=== PATIENT | male | born 1970 | race Caucasian/White ===

== ENCOUNTER 2017-03-06 09:13 | Emergency (ER) | payer OTHER ==
[2017-03-06 09:19] VITALS: BP 140/81; PULSE 84; TEMP 98; BMI 33.0
--- NOTE | 2017-03-06 10:56 | PDOC ---
History of Present Illness - General Chief Complaint: Laceration Stated Complaint: LACERATED LIP Time Seen by Provider: 03/06/17 09:53 History Source: Patient Exam Limitations: No Limitations - History of Present Illness Initial Comments: 03/06/17 11:28 My Chief Complaint: laceration above lip right sided History of Present Illness: Pt.is 46-year-old male with a history of cirrhosis , htn, borderline Diabetes, depression/anxiety and alcohol dependency here today due to cutting his face above his right side of his lip. Patient reports that he is up-to-date with immunizations. Including tetanus patient reports that he had a scar in this area and he believes that he cut this area where he had a previous scar. Pt. has had difficulty getting the area to stop bleeding. He currently attends to [employer] program. 03/06/17 11:31 Timing/Duration: 1-3 hours Severity: mild Associated Symptoms: reports: other (laceration above rt. side of lip during shaving ) Past History - Past Medical History Allergies/Adverse Reactions: Allergies Allergy/AdvReac Type Severity Reaction Status Date / Time shellfish derived Allergy Severe Swelling Verified 03/06/17 09:15 No Known Drug Allergies Allergy Verified 03/06/17 09:15 NKDA Allergy Uncoded 03/06/17 09:15 Anemia: No Asthma: No Cancer: No Cardiac Disorders: No CVA: No COPD: No CHF: No Dementia: No Diabetes: Yes (BORDER LINE, NO MEDS) GI Disorders: No Disorders: No HTN: Yes Hypercholesterolemia: No Kidney Stones: No Liver Disease: Yes (CIRRHOSIS OF LIVER) Psychiatric Problems: Yes (DEPRESSION, ANXEITY) Suicide Attempt (Hx): No Seizures: No Thyroid Disease: No - Surgical History Abdominal Surgery: No Appendectomy: No Cardiac Surgery: No Cholecystectomy: No Lung Surgery: No Neurologic Surgery: No Orthopedic Surgery: Yes (right shoulder due to dislocation 6 years ago) - Family Disease History Family Disease History: Heart Disease: Mother - Reproductive History Testicular Surgery: No - Immunization History Immunization Up to Date: Yes - Psycho/Social/Smoking Cessation Hx Anxiety: No Suicidal Ideation: No Smoking Status: No Smoking History: Current some day smoker Have you smoked in the past 12 months: Yes Number of Cigarettes Smoked Daily: 2 If you are a former smoker, when did you quit?: 2010 Cigars Per Day: 0 Information on smoking cessation initiated: Yes 'Breaking Loose' booklet given: 03/06/17 Hx Alcohol Use: No Drug/Substance Use Hx: No Substance Use Type: Alcohol, Tranquilizers Hx Substance Use Treatment: Yes Review of Systems - Review of Systems Able to Perform ROS?: Yes Constitutional: No: Symptoms Reported HEENTM: No: Symptoms Reported Respiratory: No: Symptoms reported Cardiac (ROS): No: Symptoms Reported Musculoskeletal: No: Symptoms Reported Integumentary: Yes: Other (tiny laceration above rt. side of lip ) Neurological: No: Symptoms reported *Physical Exam - Vital Signs Last Vital Signs Temp Pulse Resp BP Pulse Ox 98.0 F 84 18 140/81 100 03/06/17 09:16 03/06/17 09:16 03/06/17 09:16 03/06/17 09:16 03/06/17 09:16 - Physical Exam General Appearance: Yes: Appropriately Dressed Integumentary: positive: Other (laceration above rt. side of upper lip 0.25 cm x 0.25 cm linear) Neurologic: positive: Alert, Normal Response, Respond to painful stimul (above right side of lip ), Responsive Procedures - Consent Consent obtained: From Patient - Laceration/Wound Repair Right Face Wound Length: to 2.5 cm Wound Explored: clean Wound's Depth, Shape: superficial, linear Irrigated w/ Saline: Yes Betadine Prep: Yes Anesthesia: 1% Lidocaine Amount of Anesthetic (ccs): 2 Wound Repaired With: Sutures Suture Size/Type: 5:0 Number of Sutures: 4 (wound bleed a lot ) Sterile Dressing Applied: No Medical Decision Making - Medical Decision Making 03/06/17 11:25 03/06/17 11:31 Pt.is 46-year-old male with a history of cirrhosis and alcohol dependency here today due to cutting his face above his right side of his lip. Patient reports that he is up-to-date with immunizations. Including tetanus patient reports that he had a scar in this area and he believes that he cut this area where he had a previous scar. Pt. has had difficulty getting the area to stop bleeding. He [facility] to [facility]. laceration above rt. upper lip with excessive bleeding PLAN: 4 interrupted sutures applied to laceration above rt. lip pt. instructed to use an electric razor return in 6- 7 days Patient that if he continues to drink bleeding disorder due to low platelets will get worse 03/06/17 11:32 03/06/17 11:34 03/06/17 11:34 03/07/17 08:01 *DC/Admit/Observation/Transfer Diagnosis at time of Disposition: Laceration of face Qualifiers: Encounter type: initial encounter Qualified Code(s): S01.81XA - Laceration without foreign body of other part of head, initial encounter - Discharge Dispostion Disposition: HOME Condition at time of disposition: Stable - Referrals Referrals: Rene Ward MD [Primary Care Provider] - - Patient Instructions Additional Instructions: You may cleanse wound with antibacterial soap and water starting tomorrow twice daily pat dry and apply a tiny amount of bacitracin ointment If any bleeding reoccurs apply pressure to wound for 15 minutes without stopping Here in 6-7 days for suture removal Use electric razor to avoid cutting yourself Patient voiced understanding of discharge instructions and all questions were answered
== END 2017-03-06 11:38 | disposition home or self-care (01) ==
LOC: JERFT 09:13
PROC: 0CQ0XZZ Repair Upper Lip, External Approach (ICD-10-PCS; principal; 2017-03-06)
DX: S01.511A Laceration without foreign body of lip, initial encounter (principal); W45.8XXA Other foreign body or object entering through skin, initial encounter; W22.8XXA Striking against or struck by other objects, initial encounter; Y93.89 Activity, other specified; Y92.89 Other specified places as the place of occurrence of the external cause; I10 Essential (primary) hypertension; E11.9 Type 2 diabetes mellitus without complications; F41.8 Other specified anxiety disorders; F10.20 Alcohol dependence, uncomplicated
CPT/HCPCS: 12011-25; 99281-25

== ENCOUNTER 2017-03-13 12:30 | Emergency (ER) | payer OTHER ==
[2017-03-13 12:34] VITALS: BP 130/77; PULSE 98; TEMP 98; BMI 33.0
--- NOTE | 2017-03-13 13:09 | PDOC ---
Suture Removal/Wound Check HPI - History of Present Illness Chief Complaint: Suture/Staple Removal(Here) Stated Complaint: SUTURE/STAPLE REMOVAL Time Seen by Provider: 03/13/17 13:02 History Source: Yes: Patient Treated at: [facility] Date of Last ED visit: 03/06/17 - Previous ED Treatment Type of procedure performed on last visit: Yes: Laceration Repair Tetanus Immunization: Yes: Last Tetanus <10 yrs ago Past History - Past Medical History Allergies/Adverse Reactions: Allergies shellfish derived Allergy (Severe, Verified 03/13/17 12:34) Swelling No Known Drug Allergies Allergy (Verified 03/13/17 12:34) NKDA Allergy (Uncoded 03/13/17 12:34) Home Medications: Ambulatory Orders NK [No Known Home Medication] 03/13/17 - Immunization History Immunizations Up to Date: Yes - Social History Smoking History: No Smoking Status: Current some day smoker Number of Ciarettes Per Day: 2 Cigars Per Day: 0 Alcohol Use: none Drug Use: pt denies Suture Removal/Wound Check PE - Physical Exam Laceration/Wound Check Symptoms: denies: Pain, Fever, Chills Current Severity Level: None Maximum Severity Level: None Location of Laceration/Wound: right: Face (well healing lac to R nasolabial fold ) *Review of Systems - Review of Systems Constitutional: No: Chills, Fever Medical Decision Making - Medical Decision Making 03/13/17 13:15 46 yo M, here for suture removal. S/p suture repair of facial lac 1 week ago. Wound well healing w/ no s/o infxn. 4 sutures removed without complications. Pt stable for dc 03/13/17 13:16 *DC/Admit/Observation/Transfer Diagnosis at time of Disposition: Visit for suture removal - Discharge Dispostion Disposition: HOME Condition at time of disposition: Good - Patient Instructions Printed Discharge Instructions: DI for Suture Removal
== END 2017-03-13 13:27 | disposition home or self-care (01) ==
LOC: JERFT 12:30
DX: Z48.02 Encounter for removal of sutures (principal)
CPT/HCPCS: 99281-25

== ENCOUNTER 2017-04-18 21:33 | Inpatient (IN) | payer OTHER ==
[2017-04-18 22:44] VITALS: BMI 31.0
--- NOTE | 2017-04-18 22:52 | HP ---
CIWA Score - CIWA Score Nausea/Vomitin Muscle Tremors: 4-Moderate,w/Arms Extend Anxiety: 3 Agitation: 2 Paroxysmal Sweats: 1-Minimal Palms Moist Orientation: 1-Uncertain about Date Tacttile Disturbances: 2-Mild Itch/Numbness/Burn Auditory Disturbances: 0-None Visual Disturbances: 1-Very Mild Sensitivity Headache: 1-Very Mild CIWA-Ar Total Score: 17 Admission ROS [facility] - HPI Chief Complaint: WITHDRAWAL SYMPTOMS Allergies/Adverse Reactions: Allergies Allergy/AdvReac Type Severity Reaction Status Date / Time shellfish derived Allergy Severe Swelling Verified 04/18/17 23:02 No Known Drug Allergies Allergy Verified 04/18/17 23:02 NKDA Allergy Uncoded 04/18/17 23:02 History of Present Illness: 46 Y.O. MAN WITH AN EXTENSIVE HISTORY OF ALCOHOL DEPENDENCE IS SEEKING DETOX. HE HAS HAD MULTIPLE REHAB AND DETOX ADMISSIONS HERE WELL MULTIPLE ADMISSIONS TO THE ER D/T ALCOHOL INTOXICATION. HE STATES HE WAS AT [facility] ER 2 DAYS AGO. HE REPORTS HE DOES NOT HAVE A SIGNIFICANT PERIOD OF SOBRIETY. Exam Limitations: No Limitations - Ebola screening Have you traveled outside of the country in the last 21 days: No (N) Have you had contact with anyone from an Ebola affected area: No Have you been sick,other than usual withdrawal symptoms: No Do you have a fever: No - Review of Systems Constitutional: Chills, Loss of Appetite, Changes in sleep EENT: reports: Blurred Vision, Tearing Respiratory: reports: No Symptoms reported Cardiac: reports: Chest Pain GI: reports: Diarrhea, Nausea, Vomiting, Abdominal cramping : reports: No Symptoms Reported Musculoskeletal: reports: Back Pain, Neck Pain Integumentary: reports: No Symptoms Reported Neuro: reports: Headache, Numbness, Tremors Endocrine: reports: No Symptoms Reported Hematology: reports: Anemia Psychiatric: reports: Anxious, Depressed Other Systems: Reviewed and Negative Patient History - Patient Medical History Hx Anemia: No Hx Asthma: No Hx Chronic Obstructive Pulmonary Disease (COPD): No Hx Cancer: No Hx Cardiac Disorders: No Hx Congestive Heart Failure: No Hx Hypertension: Yes Hx Hypercholesterolemia: No Hx Pacemaker: No HX Cerebrovascular Accident: No Hx Seizures: No Hx Dementia: No Hx Diabetes: Yes (BORDER LINE, NO MEDS) Hx Gastrointestinal Disorders: No Hx Liver Disease: Yes (CIRRHOSIS OF LIVER) Hx Genitourinary Disorders: No Hx Sexually Transmitted Disorders: No Hx Renal Disease (ESRD): No Hx Thyroid Disease: No Hx Human Immunodeficiency Virus (HIV): No Hx Hepatitis C: No Hx Depression: Yes Hx Suicide Attempt: No Hx Bipolar Disorder: No Hx Schizophrenia: No Other Medical History: BLACK OUTS D/T ALCOHOL INTOXICATION - Patient Surgical History Past Surgical History: Yes Hx Neurologic Surgery: No Hx Cataract Extraction: No Hx Cardiac Surgery: No Hx Lung Surgery: No Hx Breast Surgery: No Hx Breast Biopsy: No Hx Abdominal Surgery: No Hx Appendectomy: No Hx Cholecystectomy: No Hx Genitourinary Surgery: No Hx Section: No Hx Orthopedic Surgery: Yes (right shoulder due to dislocation 6 years ago) Other Surgical History: biopsy of liver IN 2010 AT [facility] Anesthesia Reaction: No - PPD History Previous Implant?: Yes Documented Results: Negative w/proof Implanted On Prior R Admission?: Yes Date: 01/24/15 Results: 0 mm PPD to be Administered?: Yes - Smoking Cessation Smoking history: Current some day smoker Have you smoked in the past 12 months: Yes Aproximately how many cigarettes per day: 2 If you are a former smoker, when did you quit?: 2010 Cigars Per Day: 0 Hx Chewing Tobacco Use: Yes Initiated information on smoking cessation: Yes 'Breaking Loose' booklet given: 04/18/17 - Substance & Tx. History Hx Alcohol Use: Yes Hx Substance Use: No Substance Use Type: Alcohol Hx Substance Use Treatment: Yes (DETOX AND REHAB ) - Substances Abused Alcohol Route: Oral Frequency: 3-6 times per week Amount used: 1 LITER OF LIQUOR Age of first use: 17 Date of Last Use: 04/21/17 Family Disease History - Family Disease History Family Disease History: Diabetes: Father Admission Physical Exam S - Vital Signs Vital Signs: Vital Signs - 24 hr 04/18/17 22:41 Temperature 97.5 F L Pulse Rate 105 H Respiratory 20 Rate Blood Pressure 150/86 - Physical General Appearance: Yes: Irritable, Anxious HEENTM: Yes: Hearing grossly Normal, Normal ENT Inspection, Normocephalic, Normal Voice Respiratory: Yes: Lungs Clear, Normal Breath Sounds, No Respiratory Distress Neck: Yes: No masses,lesions,Nodules, Trachea in good position Breast: Yes: Breast Exam Deferred Cardiology: Yes: Regular Rhythm, Tachycardia Abdominal: Yes: Flat, Soft Genitourinary: Yes: Other (DENIES COMPLAINTS) Back: Yes: Normal Inspection Musculoskeletal: Yes: Back pain Extremities: Yes: Normal Inspection, Non-Tender Neurological: Yes: Alert, Normal Mood/Affect, Normal Response Integumentary: Yes: Dry, Warm Lymphatic: Yes: Within Normal Limits - Diagnostic (1) Alcohol dependence with uncomplicated withdrawal Current Visit: Yes Status: Chronic (2) Arthritis Current Visit: Yes Status: Chronic (3) Hypertension Current Visit: Yes Status: Chronic Cleared for Admission [facility] - Detox or Rehab [facility] Level of Care: Medically Managed Detox Regimen/Protocol: Librium [facility] Breath Alcohol Content Breath Alcohol Content: 0 Urine Drug Screen - Results Drug Screen Negative: No Urine Drug Screen Results: BZO-Benzodiazepines, TCA-Tricyclic Antidepress
[2017-04-18] MEDS ORDERED: MENTHOL/PHENOL 1 EACH UD MM PRN (23:04)
[2017-04-18] MEDS ORDERED: guaiFENesin/D-METHORPHAN HB 10 ML UNIT-DOSE CUPS PO PRN (23:04)
[2017-04-18] MEDS ORDERED: hydrOXYzine PAMOATE 50 MG CAPSULE (FP) PO PRN (23:04)
[2017-04-18] MEDS ORDERED: ACETAMINOPHEN 325 MG TABLET (FP) PO PRN (23:04)
[2017-04-18] MEDS ORDERED: P-EPHED 60MG/TRIPROLIDI 2.5MG TABLET PO PRN (23:04)
[2017-04-18] MEDS ORDERED: MAG HYDROX/AL HYDROX/SIMETH 30 ML UNIT-DOSE CUP PO PRN (23:04)
[2017-04-18] MEDS ORDERED: MAGNESIUM HYDROX 2400MG/30ML ORAL SUSPENSION 30 ML CUP PO PRN (23:04)
[2017-04-18] MEDS ORDERED: chlordiazePOXIDE HCL 25 MG CAPSULE PO ONE (23:04)
[2017-04-18] MEDS ORDERED: NICOTINE POLACRILEX 2 MG GUM BC PRN (23:04)
[2017-04-18] MEDS ORDERED: LOPERAMIDE HCL 2 MG CAPSULE PO PRN (23:04)
[2017-04-18] MEDS ORDERED: MAGNESIUM CITRATE 300 ML BOTTLE PO PRN (23:04)
[2017-04-18] MEDS: chlordiazePOXIDE HCL 25 MG CAPSULE PO SCH (23:39)
[2017-04-19] MEDS: IBUPROFEN 400 MG TABLET (FP) PO PRN ×3 (00:24→16:47)
[2017-04-19] MEDS: diphenhydrAMINE HCL 50 MG CAPSULE PO PRN ×2 (00:26→22:06)
[2017-04-19] MEDS: chlordiazePOXIDE HCL 25 MG CAPSULE PO SCH ×4 (05:33→22:06)
[2017-04-19] MEDS ORDERED: INSULIN SLIDING SCALE (NOVOLOG) 1 VIAL SQ SCH (07:00)
[2017-04-19] MEDS: PRENATAL VITAMINS W/ FOLIC ACID TABLET (FP) PO SCH (10:04)
[2017-04-19] MEDS: NICOTINE 14 MG/24 HOURS TOPICAL PATCH TD SCH (10:05)
[2017-04-19 10:08] LABS: MCH 29.1 pg (25.7-33.7); MCHC 34.6 g/dl (32.0-35.9); MEAN CELL VOLUME 84.1 fl (80-96); PLATELET COUNT 84 K/MM3 (134-434); RDW 16.7 % (11.9-15.9); WHITE BLOOD COUNT 7.6 K/mm3 (4.0-10.0)
[2017-04-19 10:42] LABS: ALBUMIN 3.6 g/dl (3.4-5.0); BILIRUBIN,TOTAL 1.8 mg/dL (0.2-1.0); CALCIUM 9.2 mg/dL (8.5-10.1); COCKROFT - GAULT 36.28; CREATININE 3.5 mg/dL (0.7-1.3); TOT PROT 7.5 g/dl (6.4-8.2)
--- NOTE | 2017-04-19 10:58 | PN ---
[facility] CIWA - CIWA Score Nausea/Vomitin-No Nausea/No Vomiting Muscle Tremors: 4-Moderate,w/Arms Extend Anxiety: 4-Mod. Anxious/Guarded Agitation: 4-Moderately Restless Paroxysmal Sweats: 1-Minimal Palms Moist Orientation: 0-Oriented Tacttile Disturbances: 3-Moderate Itch/Numb/Burn Auditory Disturbances: 0-None Visual Disturbances: 0-None Headache: 0-None Present CIWA-Ar Total Score: 16 S Progress Note (SOAP) Subjective: BODY ACHES, ANXIETY,INTERMITTENT SLEEP. Objective: 04/19/17 10:54 Vital Signs Temperature 98.4 F 04/19/17 09:30 Pulse Rate 97 H 04/19/17 09:30 Respiratory Rate 18 04/19/17 09:30 Blood Pressure 128/89 04/19/17 09:30 O2 Sat by Pulse Oximetry (%) Laboratory Last Values WBC 7.6 K/mm3 (4.0-10.0) D 04/19/17 07:00 RBC 4.23 M/mm3 (4.00-5.60) D 04/19/17 07:00 Hgb 12.3 GM/dL (11.7-16.9) D 04/19/17 07:00 Hct 35.5 % (35.4-49) D 04/19/17 07:00 MCV 84.1 fl (80-96) 04/19/17 07:00 MCHC 34.6 g/dl (32.0-35.9) 04/19/17 07:00 RDW 16.7 % (11.9-15.9) H 04/19/17 07:00 Plt Count 84 K/MM3 (134-434) L D 04/19/17 07:00 MPV 10.0 fl (7.5-11.1) 04/19/17 07:00 Sodium 129 mmol/L (136-145) L D 04/19/17 07:00 Potassium 3.6 mmol/L (3.5-5.1) 04/19/17 07:00 Chloride 91 mmol/L (98-107) L D 04/19/17 07:00 Carbon Dioxide 24 mmol/L (21-32) 04/19/17 07:00 Anion Gap 14 (8-16) 04/19/17 07:00 BUN 23 mg/dL (7-18) H D 04/19/17 07:00 Creatinine 3.5 mg/dL (0.7-1.3) H D 04/19/17 07:00 Creat Clearance w eGFR 19.12 (>60) 04/19/17 07:00 Random Glucose 148 mg/dL (74-106) H 04/19/17 07:00 Calcium 9.2 mg/dL (8.5-10.1) 04/19/17 07:00 Total Bilirubin 1.8 mg/dL (0.2-1.0) H D 04/19/17 07:00 AST 156 U/L (15-37) H D 04/19/17 07:00 ALT 92 U/L (12-78) H D 04/19/17 07:00 Alkaline Phosphatase 176 U/L (45-117) H D 04/19/17 07:00 Total Protein 7.5 g/dl (6.4-8.2) D 04/19/17 07:00 Albumin 3.6 g/dl (3.4-5.0) D 04/19/17 07:00 LABS NOTED Assessment: 04/19/17 10:55 WITHDRAWAL SX Plan: CONTINUE DETOX
--- NOTE | 2017-04-19 12:39 | EKG ---
Test Reason : Blood Pressure : / mmHG Vent. Rate : 095 BPM Atrial Rate : 095 BPM P-R Int : 154 ms QRS Dur : 086 ms QT Int : 360 ms P-R-T Axes : 043 044 039 degrees QTc Int : 452 ms NORMAL SINUS RHYTHM NORMAL ECG WHEN COMPARED WITH ECG OF 30-AUG-2016 22:45, NONSPECIFIC T WAVE ABNORMALITY NOW EVIDENT IN INFERIOR LEADS Confirmed by AMANDA THOMAS MD ([id number]) on 04/19/2017 12:39:02 PM Referred By: Confirmed By:AMANDA THOMAS MD
--- NOTE | 2017-04-19 15:05 | CONSULT ---
[facility] Psychiatric Consult - Data Date of interview: 04/19/17 Admission source: [facility] Identifying data: Readmission to [facility] for this 46 y/o male seeking detox treatment for alcohol dependence.Patient is ,a father of two,homeless,unemployed and supported on food stamps. Substance Abuse History: - Smoking Cessation. Smoking history: Current some day smoker. Have you smoked in the past 12 months: Yes. Aproximately how many cigarettes per day: 2. If you are a former smoker, when did you quit?: 2010. Cigars Per Day: 0. Hx Chewing Tobacco Use: Yes. Initiated information on smoking cessation: Yes. 'Breaking Loose' booklet given: 04/18/17. - Substance & Tx. History. Hx Alcohol Use: Yes. Hx Substance Use: No. Substance Use Type : Alcohol. Hx Substance Use Treatment: Yes (DETOX AND REHAB ). - Substances Abused. Alcohol. Route: Oral. Frequency: 3-6 times per week. Amount used : 1 LITER OF LIQUOR. Age of first use: 17. Date of Last Use: 04/21/17. Confirmed by patient. Medical History: Hypertension,diabetes mellitus,cirrhosis of liver and a history of dislocation of right shoulder (six years ago). Psychiatric History: Patient denies. Physical/Sexual Abuse/Trauma History: Patient denies. Additional Comment: Urine Drug Screen Results: BZO-Benzodiazepines, TCA- Tricyclic Antidepressant.Noted. Mental Status Exam - Mental Status Exam Alert and Oriented to: Time, Place, Person Cognitive Function: Good Patient Appearance: Well Groomed Mood: Hopeful, Euthymic Affect: Appropriate, Normal Range Patient Behavior: Fatigued, Appropriate, Cooperative Speech Pattern: Clear Voice Loudness: Normal Thought Process: Goal Oriented Thought Disorder: Not Present Hallucinations: Denies Suicidal Ideation: Denies Homicidal Ideation: Denies Insight/Judgement: Poor Sleep: Well Appetite: Good Muscle strength/Tone: Normal Gait/Station: Normal Psychiatric Findings - Problem List ([place] 1, 2,3) (1) Alcohol dependence with uncomplicated withdrawal Current Visit: Yes Status: Acute (2) Nicotine dependence Current Visit: Yes Status: Acute (3) Arthritis Current Visit: Yes Status: Chronic (4) Hypertension Current Visit: Yes Status: Chronic (5) Low back pain Current Visit: Yes Status: Chronic (6) Cirrhosis and chronic liver disease Current Visit: Yes Status: Chronic (7) Diabetes 1.5, managed as type 1 Current Visit: Yes Status: Chronic (8) Essential hypertension Current Visit: Yes Status: Chronic (9) Hypercholesterolemia Current Visit: Yes Status: Chronic (10) Psoriasis Current Visit: Yes Status: Chronic - Initial Treatment Plan Initial Treatment Plan: Psychoeducation.Detoxification.Observation.
[2017-04-19] MEDS: THIAMINE HCL 100 MG TABLET (FP) PO SCH (22:06)
[2017-04-19 22:46] LABS: URINE APPEARANCE CLEAR; URINE BILIRUBIN NEGATIVE (NEGATIVE); URINE COLOR AMBER; URINE GLUCOSE (UA) NEGATIVE (NEGATIVE); URINE KETONE NEGATIVE (NEGATIVE); URINE LEUK ESTERASE NEGATIVE (NEGATIVE); URINE NITRITE NEGATIVE (NEGATIVE); URINE UROBILINOGEN 2.0 E.U/dl E.U./dl (0.2-1.0)
[2017-04-19 22:51] LABS: URINE BLOOD 1+ (NEGATIVE); URINE PROTEIN 2+ (NEGATIVE)
[2017-04-19 22:52] LABS: URINE HYALINE CAST 18 /lpf; URINE MUCUS RARE; URINE RBC 1 /hpf (0-3); URINE WBC 3 /hpf (3-5)
[2017-04-20] MEDS: chlordiazePOXIDE HCL 25 MG CAPSULE PO PRN (02:46)
[2017-04-20] MEDS: IBUPROFEN 400 MG TABLET (FP) PO PRN ×3 (02:47→17:17)
[2017-04-20] MEDS: CYCLOBENZAPRINE HCL 10 MG TABLET (FP) PO PRN ×2 (02:47→22:10)
[2017-04-20] MEDS: chlordiazePOXIDE HCL 25 MG CAPSULE PO SCH ×3 (05:25→17:17)
[2017-04-20] MEDS: PRENATAL VITAMINS W/ FOLIC ACID TABLET (FP) PO SCH (10:06)
[2017-04-20] MEDS: NICOTINE 14 MG/24 HOURS TOPICAL PATCH TD SCH (10:06)
--- NOTE | 2017-04-20 10:13 | PN ---
[facility] CIWA - CIWA Score Nausea/Vomitin-No Nausea/No Vomiting Muscle Tremors: 4-Moderate,w/Arms Extend Anxiety: 4-Mod. Anxious/Guarded Agitation: 4-Moderately Restless Paroxysmal Sweats: 1-Minimal Palms Moist Orientation: 0-Oriented Tacttile Disturbances: 3-Moderate Itch/Numb/Burn Auditory Disturbances: 0-None Visual Disturbances: 0-None Headache: 0-None Present CIWA-Ar Total Score: 16 [facility] Progress Note (SOAP) Subjective: ANXIETY,SWEATS,TREMORS. Objective: 04/20/17 10:13 Vital Signs Temperature 95.8 F L 04/20/17 09:24 Pulse Rate 91 H 04/20/17 09:24 Respiratory Rate 20 04/20/17 09:24 Blood Pressure 121/87 04/20/17 09:24 O2 Sat by Pulse Oximetry (%) Laboratory Last Values WBC 7.6 K/mm3 (4.0-10.0) D 04/19/17 07:00 RBC 4.23 M/mm3 (4.00-5.60) D 04/19/17 07:00 Hgb 12.3 GM/dL (11.7-16.9) D 04/19/17 07:00 Hct 35.5 % (35.4-49) D 04/19/17 07:00 MCV 84.1 fl (80-96) 04/19/17 07:00 MCHC 34.6 g/dl (32.0-35.9) 04/19/17 07:00 RDW 16.7 % (11.9-15.9) H 04/19/17 07:00 Plt Count 84 K/MM3 (134-434) L D 04/19/17 07:00 MPV 10.0 fl (7.5-11.1) 04/19/17 07:00 Sodium 129 mmol/L (136-145) L D 04/19/17 07:00 Potassium 3.6 mmol/L (3.5-5.1) 04/19/17 07:00 Chloride 91 mmol/L (98-107) L D 04/19/17 07:00 Carbon Dioxide 24 mmol/L (21-32) 04/19/17 07:00 Anion Gap 14 (8-16) 04/19/17 07:00 BUN 23 mg/dL (7-18) H D 04/19/17 07:00 Creatinine 3.5 mg/dL (0.7-1.3) H D 04/19/17 07:00 Creat Clearance w eGFR 19.12 (>60) 04/19/17 07:00 Random Glucose 148 mg/dL (74-106) H 04/19/17 07:00 Calcium 9.2 mg/dL (8.5-10.1) 04/19/17 07:00 Total Bilirubin 1.8 mg/dL (0.2-1.0) H D 04/19/17 07:00 AST 156 U/L (15-37) H D 04/19/17 07:00 ALT 92 U/L (12-78) H D 04/19/17 07:00 Alkaline Phosphatase 176 U/L (45-117) H D 04/19/17 07:00 Total Protein 7.5 g/dl (6.4-8.2) D 04/19/17 07:00 Albumin 3.6 g/dl (3.4-5.0) D 04/19/17 07:00 Urine Color [place] 04/19/17 22:45 Urine Appearance Clear 04/19/17 22:45 Urine pH 5.0 (5.0-8.0) 04/19/17 22:45 Urine Protein 2+ (NEGATIVE) H 04/19/17 22:45 Urine Glucose (UA) Negative (NEGATIVE) 04/19/17 22:45 Urine Ketones Negative (NEGATIVE) 04/19/17 22:45 Urine Blood 1+ (NEGATIVE) H 04/19/17 22:45 Urine Nitrite Negative (NEGATIVE) 04/19/17 22:45 Urine Bilirubin Negative (NEGATIVE) 04/19/17 22:45 Urine Urobilinogen 2.0 e.u/dl E.U./dl (0.2-1.0) 04/19/17 22:45 Ur Leukocyte Esterase Negative (NEGATIVE) 04/19/17 22:45 Urine RBC 1 /hpf (0-3) 04/19/17 22:45 Urine WBC 3 /hpf (3-5) 04/19/17 22:45 Ur Epithelial Cells Rare /hpf (FEW) 04/19/17 22:45 Hyaline Casts 18 /lpf 04/19/17 22:45 Urine Mucus Rare 04/19/17 22:45 RPR Titer Nonreactive (NONREACTIVE) 04/19/17 07:00 Assessment: 04/20/17 10:13 WITHDRAWAL SX Plan: CONTINUE DETOX
[2017-04-20 10:20] LABS: ALK PHOS 211 U/L (45-117); SGOT/AST 97 U/L (15-37); SGPT/ALT 75 U/L (12-78)
[2017-04-20 10:30] LABS: INR 1.11 (0.82-1.09); PROTHROMBIN TIME (PATIENT) 12.2 SEC (9.98-11.88)
[2017-04-20] MEDS: THIAMINE HCL 100 MG TABLET (FP) PO SCH (22:09)
[2017-04-20] MEDS: chlordiazePOXIDE 5 MG CAPSULE PO SCH (22:09)
[2017-04-20] MEDS: diphenhydrAMINE HCL 50 MG CAPSULE PO PRN (22:10)
[2017-04-21] MEDS: diphenhydrAMINE HCL 50 MG CAPSULE PO PRN (01:36)
[2017-04-21] MEDS: chlordiazePOXIDE HCL 25 MG CAPSULE PO PRN (01:37)
[2017-04-21] MEDS: chlordiazePOXIDE 5 MG CAPSULE PO SCH ×3 (05:25→16:46)
[2017-04-21] MEDS: IBUPROFEN 400 MG TABLET (FP) PO PRN ×3 (05:28→22:06)
--- NOTE | 2017-04-21 09:40 | PN ---
[facility] Progress Note (SOAP) Subjective: ANXIETY, SWEATS,ACHY FEET, DECREASED TREMORS. Objective: 04/21/17 09:39 Vital Signs Temperature 97 F L 04/21/17 09:27 Pulse Rate 95 H 04/21/17 09:27 Respiratory Rate 20 04/21/17 09:27 Blood Pressure 122/80 04/21/17 09:27 O2 Sat by Pulse Oximetry (%) Assessment: 04/21/17 09:39 WITHDRAWAL SX Plan: CONTINUE DETOX FLEXERIL ORDERED
[2017-04-21] MEDS: PRENATAL VITAMINS W/ FOLIC ACID TABLET (FP) PO SCH (10:11)
[2017-04-21] MEDS: NICOTINE 14 MG/24 HOURS TOPICAL PATCH TD SCH (10:12)
--- NOTE | 2017-04-21 11:49 | PN ---
Psychiatric Progress Note Vital Signs: Vital Signs Period Temp Pulse Resp BP Sys/Horton Pulse Ox Last 24 Hr 97 F-98.2 F 88-116 18-20 107-132/70-83 Date of Session: 04/21/17 Chief Complaint:: " I don't sleep at night." HPI: Patient is currently detoxing from alcohol.Hospital course is benign except for complaint of insomnia. ROS: Unremarkable. Current Medications: Active Medications Generic Name Dose Route Start Last Admin Trade Name Freq PRN Reason Stop Dose Admin Acetaminophen 650 mg 04/18/17 23:04 04/19/17 10:04 Tylenol - PO 650 mg Q4H PRN Administration FEVER OR PAIN Al Hydroxide/Mg Hydroxide 30 ml 04/18/17 23:04 Mylanta Oral Suspension - PO Q6H PRN DYSPEPSIA Chlordiazepoxide HCl 10 mg 04/21/17 23:00 Librium - PO 04/22/17 17:01 [id number] DEV Chlordiazepoxide HCl 25 mg 04/18/17 23:04 04/21/17 01:37 Librium - PO 04/21/17 23:03 25 mg Q4H PRN Administration WITHDRAWAL(CONT SUBST) Chlordiazepoxide HCl 15 mg 04/20/17 23:00 04/21/17 10:11 Librium - PO 04/21/17 17:01 15 mg P2U-ELA DEV Administration Cyclobenzaprine HCl 10 mg 04/21/17 14:00 Flexeril - PO TID DEV Diphenhydramine HCl 50 mg 04/18/17 23:04 04/21/17 01:36 Benadryl - PO 50 mg HSMR1 PRN Administration INSOMNIA Eucalyptus/Menthol/Phenol/Sorbitol 1 each 04/18/17 23:04 Cepastat Lozenge - MM Q4H PRN SORE THROAT Guaifenesin 10 ml 04/18/17 23:04 Robitussin Dm - PO Q6H PRN COUGH Hydroxyzine Pamoate 50 mg 04/18/17 23:04 Vistaril - PO Q4H PRN AGITATION Ibuprofen 400 mg 04/18/17 23:04 04/21/17 05:28 Motrin - PO 400 mg Q6H PRN Administration SEVERE PAIN Loperamide HCl 4 mg 04/18/17 23:04 Imodium - PO Q6H PRN DIARRHEA Magnesium Citrate 300 ml 04/18/17 23:04 Citroma - PO Q48H PRN CONSTIPATION Magnesium Hydroxide 30 ml 04/18/17 23:04 Milk Of Magnesia - PO DAILY PRN CONSTIPATION Nicotine 14 mg 04/19/17 10:00 04/21/17 10:12 Nicoderm Patch - TD 14 mg DAILY DEV Administration Nicotine Polacrilex 2 mg 04/18/17 23:04 Nicorette Gum - BC Q2H PRN NICOTINE REPLACEMENT RX Multivit/Folic Acid/Iron 1 tab 04/19/17 10:00 04/21/17 10:11 Vitamins (Sjr) - PO 1 tab DAILY DEV Administration Pseudoephedrine/Triprolidine 1 combo 04/18/17 23:04 Actifed - PO TID PRN NASAL CONGESTION Thiamine HCl 100 mg 04/19/17 22:00 04/20/17 22:09 Vitamin B1 - PO 100 mg HS DEV Administration Zolpidem Tartrate 10 mg 04/21/17 22:00 Ambien - PO HS DEV Medication(s) Change(s): Ambien 10 mg po hs (added to regimen).Patient is made aware of potential for parasomnias.He agrees with plan. Current Side Effect: No Lab tests ordered: No Lab tests reviewed: Yes Provider note:: Met with the patient.Mr Martinez reports feeling much better in all areas except in the domain of sleep.Complains of sleep latency and frequent awakenings.Blames hospital personnel for " making too many visits " to his room and " troubling my rest." It is noted that this patient remains passive all day long,spends extended periods of time in his room.He is encouraged to engage in daily activities and to use his bed only for brief naps during daytime hours.Virtues of exercise and sleep hygiene are discussed with the patient.He is receptive to teaching.Mr Martinez agrees to be started on 10 mg of ambien at bedtime. Total face to face time:: 30 Mental Status Exam - Mental Status Exam Alert and Oriented to: Time, Place, Person Cognitive Function: Good Patient Appearance: Well Groomed Mood: Withdrawn, Hopeful Affect: Appropriate, Normal Range Patient Behavior: Fatigued, Cooperative Speech Pattern: Clear Voice Loudness: Normal Thought Process: Goal Oriented Thought Disorder: Not Present Hallucinations: Denies Suicidal Ideation: Denies Homicidal Ideation: Denies Insight/Judgement: Fair Sleep: Poorly, Difficulty falling asleep Appetite: Good Muscle strength/Tone: Normal Gait/Station: Normal Psychiatric Treatment Plan - Problem List (1) Alcohol dependence with uncomplicated withdrawal Current Visit: Yes (2) Nicotine dependence Current Visit: Yes (3) Arthritis Current Visit: Yes (4) Hypertension Current Visit: Yes (5) Low back pain Current Visit: Yes (6) Cirrhosis and chronic liver disease Current Visit: Yes (7) Diabetes 1.5, managed as type 1 Current Visit: Yes (8) Essential hypertension Current Visit: Yes (9) Hypercholesterolemia Current Visit: Yes (10) Psoriasis Current Visit: Yes (11) Insomnia Current Visit: Yes
[2017-04-21] MEDS: CYCLOBENZAPRINE HCL 10 MG TABLET (FP) PO SCH ×2 (15:38→22:04)
[2017-04-21] MEDS ORDERED: ZOLPIDEM TARTRATE 10 MG TABLET (PARK CARE ONLY) PO PRN (22:00)
[2017-04-21] MEDS: THIAMINE HCL 100 MG TABLET (FP) PO SCH (22:04)
[2017-04-21] MEDS: chlordiazePOXIDE HCL 10 MG CAPSULE PO SCH (22:04)
[2017-04-22] MEDS: CYCLOBENZAPRINE HCL 10 MG TABLET (FP) PO SCH (05:31)
[2017-04-22] MEDS: chlordiazePOXIDE HCL 10 MG CAPSULE PO SCH (05:31)
[2017-04-22] MEDS: IBUPROFEN 400 MG TABLET (FP) PO PRN (05:33)
[2017-04-22 06:28] VITALS: BP 125/79; PULSE 81; TEMP 96.9
[2017-04-22] MEDS: PRENATAL VITAMINS W/ FOLIC ACID TABLET (FP) PO SCH (10:07)
[2017-04-22] MEDS: NICOTINE 14 MG/24 HOURS TOPICAL PATCH TD SCH (10:07)
--- NOTE | 2017-04-22 12:27 | DS ---
[facility] Detox Discharge Summary Admission Date: 04/18/17 Discharge Date: 04/22/17 - History Present History: Alcohol Dependence Pertinent Past History: HTN, HLD,low back pain,DMII, alcoholic hepatitis w/ cirrhosis, pancytopenia - Physical Exam Results Vital Signs: Vital Signs Temperature 96.9 F L 04/22/17 06:28 Pulse Rate 81 04/22/17 06:28 Respiratory Rate 18 04/22/17 06:28 Blood Pressure 125/79 04/22/17 06:28 O2 Sat by Pulse Oximetry (%) Pertinent Admission Physical Exam Findings: withdrawal sx Laboratory Last Values WBC 7.6 K/mm3 (4.0-10.0) D 04/19/17 07:00 RBC 4.23 M/mm3 (4.00-5.60) D 04/19/17 07:00 Hgb 12.3 GM/dL (11.7-16.9) D 04/19/17 07:00 Hct 35.5 % (35.4-49) D 04/19/17 07:00 MCV 84.1 fl (80-96) 04/19/17 07:00 MCHC 34.6 g/dl (32.0-35.9) 04/19/17 07:00 RDW 16.7 % (11.9-15.9) H 04/19/17 07:00 Plt Count 84 K/MM3 (134-434) L D 04/19/17 07:00 MPV 10.0 fl (7.5-11.1) 04/19/17 07:00 INR 1.11 (0.82-1.09) 04/20/17 07:00 Sodium 129 mmol/L (136-145) L D 04/19/17 07:00 Potassium 3.6 mmol/L (3.5-5.1) 04/19/17 07:00 Chloride 91 mmol/L (98-107) L D 04/19/17 07:00 Carbon Dioxide 24 mmol/L (21-32) 04/19/17 07:00 Anion Gap 14 (8-16) 04/19/17 07:00 BUN 23 mg/dL (7-18) H D 04/19/17 07:00 Creatinine 3.5 mg/dL (0.7-1.3) H D 04/19/17 07:00 Creat Clearance w eGFR 19.12 (>60) 04/19/17 07:00 Random Glucose 148 mg/dL (74-106) H 04/19/17 07:00 Calcium 9.2 mg/dL (8.5-10.1) 04/19/17 07:00 Total Bilirubin 1.8 mg/dL (0.2-1.0) H D 04/19/17 07:00 AST 97 U/L (15-37) H D 04/20/17 07:00 ALT 75 U/L (12-78) 04/20/17 07:00 Alkaline Phosphatase 211 U/L (45-117) H 04/20/17 07:00 Total Protein 7.5 g/dl (6.4-8.2) D 04/19/17 07:00 Albumin 3.6 g/dl (3.4-5.0) D 04/19/17 07:00 Urine Color [place] 04/19/17 22:45 Urine Appearance Clear 04/19/17 22:45 Urine pH 5.0 (5.0-8.0) 04/19/17 22:45 Ur Specific [place] 1.015 (1.005-1.025) 04/19/17 22:45 Urine Protein 2+ (NEGATIVE) H 04/19/17 22:45 Urine Glucose (UA) Negative (NEGATIVE) 04/19/17 22:45 Urine Ketones Negative (NEGATIVE) 04/19/17 22:45 Urine Blood 1+ (NEGATIVE) H 04/19/17 22:45 Urine Nitrite Negative (NEGATIVE) 04/19/17 22:45 Urine Bilirubin Negative (NEGATIVE) 04/19/17 22:45 Urine Urobilinogen 2.0 e.u/dl E.U./dl (0.2-1.0) 04/19/17 22:45 Ur Leukocyte Esterase Negative (NEGATIVE) 04/19/17 22:45 Urine RBC 1 /hpf (0-3) 04/19/17 22:45 Urine WBC 3 /hpf (3-5) 04/19/17 22:45 Ur Epithelial Cells Rare /hpf (FEW) 04/19/17 22:45 Hyaline Casts 18 /lpf 04/19/17 22:45 Urine Mucus Rare 04/19/17 22:45 RPR Titer Nonreactive (NONREACTIVE) 04/19/17 07:00 labs noted - Treatment Hospital Course: Detox Protocol Followed, Detoxed Safely, Responded well, Discharged Condition Good - Medication Discharge Medications: Ambulatory Orders Unobtainable [Unobtainable] 04/18/17 - Diagnosis (1) Alcohol dependence with uncomplicated withdrawal Status: Acute (2) Nicotine dependence Status: Acute Qualifiers: Nicotine product type: cigarettes Substance use status: uncomplicated Qualified Code(s): F17.210 - Nicotine dependence, cigarettes, uncomplicated (3) Type II diabetes with terminal clerk use of insulin Status: Chronic Qualifiers: Diabetes mellitus complication status: without complication Qualified Code(s): E11.9 - Type 2 diabetes mellitus without complications; Z79.4 - terminal clerk (current) use of insulin (4) Drug-induced mood disorder Status: Acute (5) Essential hypertension Status: Chronic (6) Hypercholesterolemia Status: Chronic (7) Low back pain Status: Chronic Qualifiers: Chronicity: chronic Back pain laterality: bilateral Sciatica presence: with sciatica Sciatica laterality: bilateral sciatica Qualified Code(s): M54.42 - Lumbago with sciatica, left side; M54.41 - Lumbago with sciatica, right side; G89.29 - Other chronic pain - AMA Did Patient Leave Against Medical Advice: No
== END 2017-04-22 11:00 | disposition home or self-care (01) | DRG 775 ==
LOC: YASAS 21:33 → Y3N 22:56
PROVIDERS: ADMIT Internal Medicine; ATTEND Internal Medicine
PROC: HZ2ZZZZ Detoxification Services for Substance Abuse Treatment (ICD-10-PCS; principal; 2017-04-18)
DX: F10.230 Alcohol dependence with withdrawal, uncomplicated (principal); F17.210 Nicotine dependence, cigarettes, uncomplicated; F19.24 Other psychoactive substance dependence with psychoactive substance-induced mood disorder; E11.9 Type 2 diabetes mellitus without complications; Z79.4 Long term (current) use of insulin; I10 Essential (primary) hypertension; M54.42 Lumbago with sciatica, left side; G89.29 Other chronic pain; G47.00 Insomnia, unspecified; K74.60 Unspecified cirrhosis of liver; M19.90 Unspecified osteoarthritis, unspecified site; L40.9 Psoriasis, unspecified; R00.0 Tachycardia, unspecified
CPT/HCPCS: 36415; 80053; 81003; 81015; 84075; 84450; 84460; 85027; 85610; 86593; 93005; 93010

== ENCOUNTER 2017-04-26 09:01 | Inpatient (IN) | payer OTHER ==
[2017-04-26 10:02] VITALS: BMI 31.8
--- NOTE | 2017-04-26 12:55 | HP ---
[facility] Rehab Assess/Revision - Admission History Admitted to Rehab from: [facility] - Vital signs Vital Signs: Vital Signs Period Temp Pulse Resp BP Sys/Horton Pulse Ox Last 24 Hr 98.1 F 86 18 152/95 - Findings Detox History & Physical reviewed: Yes Concur with findings: Yes
[2017-04-26] MEDS ORDERED: P-EPHED 60MG/TRIPROLIDI 2.5MG TABLET PO PRN (12:56)
[2017-04-26] MEDS ORDERED: LOPERAMIDE HCL 2 MG CAPSULE PO PRN (12:56)
[2017-04-26] MEDS ORDERED: diphenhydrAMINE HCL 50 MG CAPSULE PO PRN (12:56)
[2017-04-26] MEDS ORDERED: MAG HYDROX/AL HYDROX/SIMETH 30 ML UNIT-DOSE CUP PO PRN (12:56)
[2017-04-26] MEDS ORDERED: guaiFENesin/D-METHORPHAN HB 10 ML UNIT-DOSE CUPS PO PRN (12:56)
[2017-04-26] MEDS ORDERED: MAGNESIUM CITRATE 300 ML BOTTLE PO PRN (12:56)
[2017-04-26] MEDS ORDERED: MENTHOL/PHENOL 1 EACH UD MM PRN (12:56)
[2017-04-26] MEDS: FLUOCINONIDE 0.05% CREAM (15 GM TUBE) TP SCH ×3 (18:23→22:58)
[2017-04-26] MEDS: NAPHAZOLINE/PHENIRAMINE OPHTHALMIC 15 ML BOTTLE OU SCH ×2 (18:24→21:46)
[2017-04-26 19:49] LABS: URINE APPEARANCE CLEAR; URINE BILIRUBIN NEGATIVE (NEGATIVE); URINE COLOR YELLOW; URINE GLUCOSE (UA) NEGATIVE (NEGATIVE); URINE KETONE NEGATIVE (NEGATIVE); URINE LEUK ESTERASE NEGATIVE (NEGATIVE); URINE NITRITE NEGATIVE (NEGATIVE); URINE UROBILINOGEN NEGATIVE E.U./dl (0.2-1.0)
[2017-04-26 20:10] LABS: URINE BLOOD 1+ (NEGATIVE); URINE PROTEIN 2+ (NEGATIVE)
[2017-04-26 20:28] LABS: URINE RBC 3 /hpf (0-3); URINE WBC 1 /hpf (3-5)
[2017-04-26] MEDS: THIAMINE HCL 100 MG TABLET (FP) PO SCH (21:44)
[2017-04-26] MEDS: hydrOXYzine PAMOATE 50 MG CAPSULE (FP) PO PRN (21:45)
--- NOTE | 2017-04-27 08:21 | HP ---
Psychiatrist Admission - Data Date of interview: 04/27/17 Admission source: [facility] Identifying data: This is the second [facility] inpatient rehabilitation admission for this 46 year old male father of two who is unemployed and supported on food stamps, currently homeless. Medical History: Hypertension,diabetes mellitus,cirrhosis of liver and a history of dislocation of right shoulder (six years ago). Smokes cigarettes 3 a day. Psychiatric History: Patient denies history of psychiatric treatment, except of being seen by while in detox to address insomnia and was put on ambien 10 mg po hs. He reports has been feeling very depressed, low energy level , low self-esteam, feels "guilt and shame" "I burned all bridges". States he hears voices on and off and sees people watching at him. Physical/Sexual Abuse/Trauma History: Patient denies Vital Signs: Vital Signs - 24 hr 04/26/17 04/26/17 04/27/17 09:57 18:30 00:41 Temperature 98.1 F 98.3 F Pulse Rate 86 90 Respiratory 18 18 18 Rate Blood Pressure 152/95 157/96 04/27/17 04/27/17 03:30 06:44 Temperature 97.3 F L Pulse Rate 78 Respiratory 18 20 Rate Blood Pressure 136/85 Allergies/Adverse Reactions: Allergies Allergy/AdvReac Type Severity Reaction Status Date / Time shellfish derived Allergy Severe Swelling Verified 04/26/17 10:36 No Known Drug Allergies Allergy Verified 04/26/17 10:36 NKDA Allergy Uncoded 04/26/17 10:36 Date of last physical exam: 04/18/17 Concur with the findings of this exam: Yes - Substance Abuse/Tx History Hx Alcohol Use: Yes (started at age of 17) Hx Substance Use: No Substance Use Type: Alcohol (drinks liquor 1 liter 2-3 times a week) Hx Substance Use Treatment: Yes - Admission Criteria Previous failed treatment: Yes Poor recovery environment: Yes Comorbidities: No Lacks judgement: Yes Mental Status Exam - Mental Status Exam Alert and Oriented to: Time, Place, Person Cognitive Function: Good Patient Appearance: Well Groomed Mood: Hopeful Affect: Mood Congruent Patient Behavior: Cooperative Speech Pattern: Clear, Appropriate Voice Loudness: Normal Thought Process: Intact, Goal Oriented Thought Disorder: Not Present Hallucinations: Auditory (sometimes hears his name been called), Visual (sees people standing there, "they just look at me") Suicidal Ideation: Denies Homicidal Ideation: Denies Insight/Judgement: Fair Sleep: Fair Appetite: Fair Muscle strength/Tone: Normal Gait/Station: Normal Psychiatric Findings - Problem List ([place] 1, 2,3) (1) Alcohol dependence Current Visit: No Status: Chronic (2) Alcohol-induced psychosis Current Visit: Yes Status: Acute (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 Will monitor progres as needed.
[2017-04-27] MEDS: NAPHAZOLINE/PHENIRAMINE OPHTHALMIC 15 ML BOTTLE OU SCH ×4 (10:10→21:39)
[2017-04-27] MEDS: PRENATAL VITAMINS W/ FOLIC ACID TABLET (FP) PO SCH (10:10)
[2017-04-27] MEDS: FLUOCINONIDE 0.05% CREAM (15 GM TUBE) TP SCH (10:11)
[2017-04-27] MEDS: NICOTINE 21 MG/24 HOURS TOPICAL PATCH TD SCH (10:11)
[2017-04-27] MEDS: IBUPROFEN 400 MG TABLET (FP) PO PRN ×2 (10:13→21:41)
[2017-04-27] MEDS: NICOTINE POLACRILEX 4 MG GUM BC PRN (10:14)
[2017-04-27] MEDS ORDERED: ACAMPROSATE CALCIUM 333 MG TABLET.DR PO SCH (14:00)
[2017-04-27] MEDS: FLUOCINONIDE 0.05% TOP OINT (60 GM TUBE) TP SCH ×2 (14:40→21:38)
[2017-04-27] MEDS: THIAMINE HCL 100 MG TABLET (FP) PO SCH (21:38)
[2017-04-27] MEDS: hydrOXYzine PAMOATE 50 MG CAPSULE (FP) PO PRN (21:40)
--- NOTE | 2017-04-28 09:55 | EKG ---
Test Reason : Blood Pressure : / mmHG Vent. Rate : 079 BPM Atrial Rate : 079 BPM P-R Int : 152 ms QRS Dur : 094 ms QT Int : 394 ms P-R-T Axes : 037 048 056 degrees QTc Int : 451 ms NORMAL SINUS RHYTHM NORMAL ECG Confirmed by YOLI JONES MD ([id number]) on 04/28/2017 9:55:19 AM Referred By: Cassidy Polanco Confirmed By:YOLI JONES MD
[2017-04-28] MEDS: FLUoxetine HCL 10 MG CAPSULE (FP) PO SCH (10:23)
[2017-04-28] MEDS: FLUOCINONIDE 0.05% TOP OINT (60 GM TUBE) TP SCH ×2 (10:23→21:42)
[2017-04-28] MEDS: PRENATAL VITAMINS W/ FOLIC ACID TABLET (FP) PO SCH (10:23)
[2017-04-28] MEDS: NICOTINE 21 MG/24 HOURS TOPICAL PATCH TD SCH (10:23)
[2017-04-28] MEDS: NAPHAZOLINE/PHENIRAMINE OPHTHALMIC 15 ML BOTTLE OU SCH ×4 (10:23→21:42)
[2017-04-28] MEDS: IBUPROFEN 400 MG TABLET (FP) PO PRN ×3 (10:25→22:52)
[2017-04-28] MEDS: NICOTINE POLACRILEX 4 MG GUM BC PRN (10:27)
[2017-04-28] MEDS ORDERED: AMMONIUM LACTATE 12% LOTION 225 GM BOTTLE TP PRN (11:54)
[2017-04-28] MEDS: GABAPENTIN 300 MG CAPSULE (FP) PO SCH (21:41)
[2017-04-28] MEDS: CYCLOBENZAPRINE HCL 10 MG TABLET (FP) PO PRN (21:41)
[2017-04-28] MEDS: THIAMINE HCL 100 MG TABLET (FP) PO SCH (21:41)
[2017-04-28] MEDS: hydrOXYzine PAMOATE 50 MG CAPSULE (FP) PO PRN (21:44)
[2017-04-29] MEDS: IBUPROFEN 400 MG TABLET (FP) PO PRN ×2 (07:02→18:02)
[2017-04-29] MEDS: CYCLOBENZAPRINE HCL 10 MG TABLET (FP) PO PRN (07:02)
[2017-04-29] MEDS: amLODIPine BESYLATE 10 MG TABLET (FP) PO SCH (10:15)
[2017-04-29] MEDS: PRENATAL VITAMINS W/ FOLIC ACID TABLET (FP) PO SCH (10:15)
[2017-04-29] MEDS: FLUoxetine HCL 10 MG CAPSULE (FP) PO SCH (10:15)
[2017-04-29] MEDS: GABAPENTIN 300 MG CAPSULE (FP) PO SCH ×2 (10:15→21:43)
[2017-04-29] MEDS: LISINOPRIL 10 MG TABLET (FP) PO SCH (10:15)
[2017-04-29] MEDS: NICOTINE 21 MG/24 HOURS TOPICAL PATCH TD SCH (10:16)
[2017-04-29] MEDS: FLUOCINONIDE 0.05% TOP OINT (60 GM TUBE) TP SCH ×2 (10:18→21:45)
[2017-04-29] MEDS: NAPHAZOLINE/PHENIRAMINE OPHTHALMIC 15 ML BOTTLE OU SCH ×4 (10:19→21:43)
[2017-04-29] MEDS: hydrOXYzine PAMOATE 50 MG CAPSULE (FP) PO PRN ×2 (10:20→21:45)
[2017-04-29 10:42] LABS: RDW 17.6 % (11.9-15.9)
[2017-04-29 10:45] LABS: INR 1.03 (0.82-1.09); PROTHROMBIN TIME (PATIENT) 11.3 SEC (9.98-11.88)
[2017-04-29 10:50] LABS: MCH 29.2 pg (25.7-33.7); MEAN CELL VOLUME 88.2 fl (80-96); MEAN PLT VOLUME 10.3 fl (7.5-11.1); PLATELET COUNT 86 K/MM3 (134-434); WHITE BLOOD COUNT 3.4 K/mm3 (4.0-10.0)
[2017-04-29 10:58] LABS: ALBUMIN 3.1 g/dl (3.4-5.0); ANION GAP 9 (8-16); CALCIUM 8.8 mg/dL (8.5-10.1); CO2 22 mmol/L (21-32)
[2017-04-29 11:12] LABS: ALK PHOS 151 U/L (45-117); BILIRUBIN,TOTAL 0.4 mg/dL (0.2-1.0); COCKROFT - GAULT 108.86; CREATININE 1.2 mg/dL (0.7-1.3); GLUCOSE,RANDOM 104 mg/dL (74-106); SGOT/AST 43 U/L (15-37); SGPT/ALT 33 U/L (12-78); T3 UPTAKE 34.3 % (33-40); THYROID STIMULATING HORMONE 2.55 uIU/ml (0.358-3.74); THYROXINE (T4) 7.4 ug/dl (4.5-12.1); TOT PROT 6.3 g/dl (6.4-8.2)
--- NOTE | 2017-04-29 11:38 | PN ---
[facility] Progress Note Note: labs noted, we'll f/u on 05/01 Vital Signs - 8 hr 04/29/17 04/29/17 07:17 10:46 Temperature 97.3 F L Pulse Rate 73 81 Respiratory 18 Rate Blood Pressure 155/98 140/85 Laboratory Tests 04/26/17 04/26/17 04/27/17 10:45 14:00 06:24 WBC RBC Hgb Hct MCV MCHC RDW Plt Count MPV INR Sodium Potassium Chloride Carbon Dioxide Anion Gap BUN Creatinine Creat Clearance w eGFR POC Glucometer 163 171 Random Glucose Calcium Total Bilirubin AST ALT Alkaline Phosphatase Total Protein Albumin TSH Resin T3 Uptake Urine Color Yellow Urine Appearance Clear Urine pH 5.0 Ur Specific [place] 1.020 Urine Protein 2+ H Urine Glucose (UA) Negative Urine Ketones Negative Urine Blood 1+ H Urine Nitrite Negative Urine Bilirubin Negative Urine Urobilinogen Negative Ur Leukocyte Esterase Negative Urine RBC 3 Urine WBC 1 Ur Epithelial Cells Rare 04/28/17 04/29/17 04/29/17 06:33 06:56 07:00 WBC 3.4 L D RBC 3.42 L Hgb 10.0 L D Hct 30.1 L D MCV 88.2 MCHC 33.0 RDW 17.6 H Plt Count 86 L MPV 10.3 INR Sodium Potassium Chloride Carbon Dioxide Anion Gap BUN Creatinine Creat Clearance w eGFR POC Glucometer 127 121 Random Glucose Calcium Total Bilirubin AST ALT Alkaline Phosphatase Total Protein Albumin TSH Resin T3 Uptake Urine Color Urine Appearance Urine pH Ur Specific Ruby Urine Protein Urine Glucose (UA) Urine Ketones Urine Blood Urine Nitrite Urine Bilirubin Urine Urobilinogen Ur Leukocyte Esterase Urine RBC Urine WBC Ur Epithelial Cells 04/29/17 04/29/17 07:00 07:00 WBC RBC Hgb Hct MCV MCHC RDW Plt Count MPV INR 1.03 Sodium 146 H D Potassium 4.5 D Chloride 115 H D Carbon Dioxide 22 Anion Gap 9 BUN 21 H Creatinine 1.2 D Creat Clearance w eGFR > 60 POC Glucometer Random Glucose 104 D Calcium 8.8 Total Bilirubin 0.4 D AST 43 H D ALT 33 D Alkaline Phosphatase 151 H D Total Protein 6.3 L Albumin 3.1 L TSH 2.55 D Resin T3 Uptake 34.3 Urine Color Urine Appearance Urine pH Ur Specific Ruby Urine Protein Urine Glucose (UA) Urine Ketones Urine Blood Urine Nitrite Urine Bilirubin Urine Urobilinogen Ur Leukocyte Esterase Urine RBC Urine WBC Ur Epithelial Cells labs noted
[2017-04-29] MEDS: THIAMINE HCL 100 MG TABLET (FP) PO SCH (21:43)
[2017-04-30] MEDS: IBUPROFEN 400 MG TABLET (FP) PO PRN ×2 (06:36→12:40)
[2017-04-30] MEDS: FLUoxetine HCL 10 MG CAPSULE (FP) PO SCH (10:09)
[2017-04-30] MEDS: FLUOCINONIDE 0.05% TOP OINT (60 GM TUBE) TP SCH ×2 (10:09→21:48)
[2017-04-30] MEDS: NICOTINE 21 MG/24 HOURS TOPICAL PATCH TD SCH (10:09)
[2017-04-30] MEDS: GABAPENTIN 300 MG CAPSULE (FP) PO SCH ×2 (10:09→21:44)
[2017-04-30] MEDS: amLODIPine BESYLATE 10 MG TABLET (FP) PO SCH (10:09)
[2017-04-30] MEDS: LISINOPRIL 10 MG TABLET (FP) PO SCH (10:09)
[2017-04-30] MEDS: PRENATAL VITAMINS W/ FOLIC ACID TABLET (FP) PO SCH (10:09)
[2017-04-30] MEDS: NAPHAZOLINE/PHENIRAMINE OPHTHALMIC 15 ML BOTTLE OU SCH ×4 (10:10→21:46)
[2017-04-30] MEDS: NICOTINE POLACRILEX 4 MG GUM BC PRN ×2 (17:29→21:50)
[2017-04-30] MEDS: THIAMINE HCL 100 MG TABLET (FP) PO SCH (21:44)
[2017-04-30] MEDS: ACETAMINOPHEN 325 MG TABLET (FP) PO PRN (21:45)
[2017-04-30] MEDS: hydrOXYzine PAMOATE 50 MG CAPSULE (FP) PO PRN (21:46)
[2017-05-01] MEDS: FLUoxetine HCL 10 MG CAPSULE (FP) PO SCH (10:23)
[2017-05-01] MEDS: GABAPENTIN 300 MG CAPSULE (FP) PO SCH ×2 (10:23→21:38)
[2017-05-01] MEDS: amLODIPine BESYLATE 10 MG TABLET (FP) PO SCH (10:23)
[2017-05-01] MEDS: PRENATAL VITAMINS W/ FOLIC ACID TABLET (FP) PO SCH (10:23)
[2017-05-01] MEDS: NAPHAZOLINE/PHENIRAMINE OPHTHALMIC 15 ML BOTTLE OU SCH ×4 (10:24→21:38)
[2017-05-01] MEDS: LISINOPRIL 10 MG TABLET (FP) PO SCH (10:24)
[2017-05-01] MEDS: FLUOCINONIDE 0.05% TOP OINT (60 GM TUBE) TP SCH ×2 (10:24→21:39)
[2017-05-01] MEDS: NICOTINE 21 MG/24 HOURS TOPICAL PATCH TD SCH (10:24)
[2017-05-01] MEDS: AMMONIUM LACTATE 12% LOTION 225 GM BOTTLE TP PRN (10:26)
--- NOTE | 2017-05-01 11:09 | PN ---
[facility] Progress Note Note: edema both legs lasix 40 mgs po daily for days,monitoring
[2017-05-01] MEDS: FUROSEMIDE 40 MG TABLET (FP) PO SCH (12:12)
[2017-05-01] MEDS: NICOTINE POLACRILEX 4 MG GUM BC PRN ×2 (12:47→17:52)
[2017-05-01] MEDS: IBUPROFEN 400 MG TABLET (FP) PO PRN ×2 (14:16→21:41)
[2017-05-01] MEDS: THIAMINE HCL 100 MG TABLET (FP) PO SCH (21:38)
[2017-05-02] MEDS: amLODIPine BESYLATE 10 MG TABLET (FP) PO SCH ×2 (06:42→09:43)
[2017-05-02] MEDS: GABAPENTIN 300 MG CAPSULE (FP) PO SCH ×2 (10:11→21:37)
[2017-05-02] MEDS: NICOTINE 21 MG/24 HOURS TOPICAL PATCH TD SCH (10:11)
[2017-05-02] MEDS: FUROSEMIDE 40 MG TABLET (FP) PO SCH (10:11)
[2017-05-02] MEDS: FLUoxetine HCL 10 MG CAPSULE (FP) PO SCH (10:11)
[2017-05-02] MEDS: PRENATAL VITAMINS W/ FOLIC ACID TABLET (FP) PO SCH (10:11)
[2017-05-02] MEDS: FLUOCINONIDE 0.05% TOP OINT (60 GM TUBE) TP SCH ×2 (10:12→21:37)
[2017-05-02] MEDS: LISINOPRIL 10 MG TABLET (FP) PO SCH (10:13)
[2017-05-02] MEDS: NAPHAZOLINE/PHENIRAMINE OPHTHALMIC 15 ML BOTTLE OU SCH ×4 (10:15→21:37)
[2017-05-02] MEDS: IBUPROFEN 400 MG TABLET (FP) PO PRN ×2 (10:15→21:42)
[2017-05-02] MEDS: NICOTINE POLACRILEX 4 MG GUM BC PRN ×3 (10:16→21:43)
[2017-05-02] MEDS: THIAMINE HCL 100 MG TABLET (FP) PO SCH (21:37)
[2017-05-02] MEDS: hydrOXYzine PAMOATE 50 MG CAPSULE (FP) PO PRN (21:42)
[2017-05-03] MEDS: amLODIPine BESYLATE 10 MG TABLET (FP) PO SCH (10:37)
[2017-05-03] MEDS: PRENATAL VITAMINS W/ FOLIC ACID TABLET (FP) PO SCH (10:37)
[2017-05-03] MEDS: FLUoxetine HCL 10 MG CAPSULE (FP) PO SCH (10:37)
[2017-05-03] MEDS: LISINOPRIL 10 MG TABLET (FP) PO SCH (10:37)
[2017-05-03] MEDS: GABAPENTIN 300 MG CAPSULE (FP) PO SCH ×2 (10:37→21:36)
[2017-05-03] MEDS: FUROSEMIDE 40 MG TABLET (FP) PO SCH ×2 (10:37→14:19)
[2017-05-03] MEDS: NAPHAZOLINE/PHENIRAMINE OPHTHALMIC 15 ML BOTTLE OU SCH ×4 (10:39→21:39)
[2017-05-03] MEDS: FLUOCINONIDE 0.05% TOP OINT (60 GM TUBE) TP SCH ×2 (10:39→21:40)
[2017-05-03] MEDS: NICOTINE 21 MG/24 HOURS TOPICAL PATCH TD SCH (10:40)
[2017-05-03] MEDS: MAGNESIUM HYDROX 2400MG/30ML ORAL SUSPENSION 30 ML CUP PO PRN (14:20)
[2017-05-03] MEDS: CYCLOBENZAPRINE HCL 10 MG TABLET (FP) PO PRN (21:36)
[2017-05-03] MEDS: THIAMINE HCL 100 MG TABLET (FP) PO SCH (21:36)
[2017-05-03] MEDS: IBUPROFEN 400 MG TABLET (FP) PO PRN (21:38)
[2017-05-03] MEDS: hydrOXYzine PAMOATE 50 MG CAPSULE (FP) PO PRN (21:38)
[2017-05-03] MEDS: NICOTINE POLACRILEX 4 MG GUM BC PRN (21:39)
[2017-05-04 09:56] LABS: MCH 28.9 pg (25.7-33.7); MCHC 33.4 g/dl (32.0-35.9); MEAN CELL VOLUME 86.5 fl (80-96); MEAN PLT VOLUME 9.9 fl (7.5-11.1); PLATELET COUNT 90 K/MM3 (134-434); RDW 17.9 % (11.9-15.9); WHITE BLOOD COUNT 4.6 K/mm3 (4.0-10.0)
[2017-05-04 10:07] LABS: CALCIUM 8.9 mg/dL (8.5-10.1)
[2017-05-04 10:13] LABS: ALBUMIN 2.6 g/dl (3.4-5.0); ALK PHOS 137 U/L (45-117); ANION GAP 7 (8-16); BILIRUBIN,TOTAL 0.5 mg/dL (0.2-1.0); CO2 25 mmol/L (21-32); COCKROFT - GAULT 118.75; CREATININE 1.1 mg/dL (0.7-1.3); GLUCOSE,RANDOM 195 mg/dL (74-106); SGOT/AST 33 U/L (15-37); SGPT/ALT 26 U/L (12-78); TOT PROT 5.3 g/dl (6.4-8.2)
[2017-05-04] MEDS: LISINOPRIL 10 MG TABLET (FP) PO SCH (10:42)
[2017-05-04] MEDS: FUROSEMIDE 40 MG TABLET (FP) PO SCH (10:42)
[2017-05-04] MEDS: FLUoxetine HCL 10 MG CAPSULE (FP) PO SCH (10:42)
[2017-05-04] MEDS: PRENATAL VITAMINS W/ FOLIC ACID TABLET (FP) PO SCH (10:42)
[2017-05-04] MEDS: GABAPENTIN 300 MG CAPSULE (FP) PO SCH ×2 (10:42→21:43)
[2017-05-04] MEDS: amLODIPine BESYLATE 10 MG TABLET (FP) PO SCH (10:42)
[2017-05-04] MEDS: NICOTINE 21 MG/24 HOURS TOPICAL PATCH TD SCH (10:43)
[2017-05-04] MEDS: FLUOCINONIDE 0.05% TOP OINT (60 GM TUBE) TP SCH ×2 (10:44→21:45)
[2017-05-04] MEDS: NAPHAZOLINE/PHENIRAMINE OPHTHALMIC 15 ML BOTTLE OU SCH ×4 (10:44→21:45)
--- NOTE | 2017-05-04 11:59 | PN ---
[facility] Progress Note Note: Laboratory Results - last 24 hr 05/04/17 05/04/17 05/04/17 06:27 07:00 07:00 WBC 4.6 D RBC 3.21 L Hgb 9.3 L Hct 27.8 L MCV 86.5 MCHC 33.4 RDW 17.9 H Plt Count 90 L MPV 9.9 Sodium 143 Potassium 4.0 Chloride 111 H Carbon Dioxide 25 Anion Gap 7 L BUN 24 H Creatinine 1.1 Creat Clearance w eGFR > 60 POC Glucometer 148 Random Glucose 195 H D Calcium 8.9 Total Bilirubin 0.5 D AST 33 D ALT 26 D Alkaline Phosphatase 137 H Total Protein 5.3 L Albumin 2.6 L edema both legs ,anemia will give ferrous sulfate 325 mgs po id and gkucerna 1 can po bid
[2017-05-04] MEDS: FERROUS SO4 325 MG TABLET (FP) PO SCH ×2 (12:44→21:42)
[2017-05-04] MEDS: IBUPROFEN 400 MG TABLET (FP) PO PRN (12:45)
--- NOTE | 2017-05-04 15:26 | PN ---
Psychiatric Progress Note Vital Signs: Vital Signs Period Temp Pulse Resp BP Sys/Horton Pulse Ox Last 24 Hr 97.4 F 75 16-20 135/75 Date of Session: 05/04/17 Chief Complaint:: "Depressed" HPI: Patient is addressing alcohol dependence comorbid alcohol induced depression and psychosis. ROS: Hypertension,diabetes mellitus,cirrhosis of liver and a history of dislocation of right shoulder (six years ago). Current Medications: Active Medications Generic Name Dose Route Start Last Admin Trade Name Freq PRN Reason Stop Dose Admin Acetaminophen 650 mg 04/26/17 12:56 04/30/17 21:45 Tylenol - PO 650 mg Q4H PRN Administration PAIN Al Hydroxide/Mg Hydroxide 30 ml 04/26/17 12:56 04/28/17 20:32 Mylanta Oral Suspension - PO 30 ml Q6H PRN Administration DYSPEPSIA Amlodipine Besylate 10 mg 04/29/17 10:00 05/04/17 10:42 Norvasc - PO 10 mg DAILY DEV Administration Cyclobenzaprine HCl 10 mg 04/28/17 11:54 05/03/17 21:36 Flexeril - PO 10 mg BID PRN Administration muscle relaxer Diphenhydramine HCl 50 mg 04/26/17 12:56 Benadryl - PO HSMR1 PRN INSOMNIA Eucalyptus/Menthol/Phenol/Sorbitol 1 each 04/26/17 12:56 Cepastat Lozenge - MM Q4H PRN SORE THROAT Ferrous Sulfate 325 mg 05/04/17 12:00 05/04/17 12:44 Feosol - PO 325 mg BID DEV Administration Fluocinonide 1 applic 04/27/17 14:22 05/04/17 10:44 Lidex 0.05% Ointment - TP 1 applic BID DEV Administration Fluoxetine HCl 10 mg 04/28/17 10:00 05/04/17 10:42 Prozac - PO 10 mg DAILY DEV Administration Furosemide 40 mg 05/03/17 13:00 05/04/17 10:42 Lasix - PO 05/05/17 23:59 40 mg DAILY DEV Administration Gabapentin 300 mg 04/28/17 22:00 05/04/17 10:42 Neurontin - PO 300 mg BID DEV Administration Guaifenesin 10 ml 04/26/17 12:56 Robitussin Dm - PO Q6H PRN COUGH Hydroxyzine Pamoate 50 mg 04/26/17 12:56 05/03/17 21:38 Vistaril - PO 50 mg Q4H PRN Administration AGITATION Ibuprofen 400 mg 04/26/17 12:56 05/04/17 12:45 Motrin - PO 400 mg Q6H PRN Administration SEVERE PAIN Lactic Acid 1 applic 04/26/17 13:02 05/01/17 10:26 Lac-Hydrin 12 TP 1 applic BID PRN Administration DRY SKIN Lactic Acid 1 applic 04/28/17 11:54 05/02/17 10:14 Lac-Hydrin 12 TP 1 applic DAILY PRN Administration dry skin Lisinopril 10 mg 04/29/17 10:00 05/04/17 10:42 Prinivil PO 10 mg DAILY DEV Administration Loperamide HCl 4 mg 04/26/17 12:56 Imodium - PO Q6H PRN DIARRHEA Magnesium Citrate 300 ml 04/26/17 12:56 Citroma - PO Q48H PRN CONSTIPATION Magnesium Hydroxide 30 ml 04/26/17 12:56 05/03/17 14:20 Milk Of Magnesia - PO 30 ml DAILY PRN Administration CONSTIPATION Naphazoline HCl/Pheniramine Maleate 1 drop 04/26/17 18:00 05/04/17 14:30 Visine-A - OU 1 drop QID DEV Administration Nicotine 21 mg 04/27/17 10:00 05/04/17 10:43 Nicoderm Patch - TD 21 mg DAILY DEV Administration Nicotine Polacrilex 4 mg 04/26/17 12:56 05/03/17 21:39 Nicorette Gum - BC 4 mg Q2H PRN Administration NICOTINE REPLACEMENT RX Multivit/Folic Acid/Iron 1 tab 04/27/17 10:00 05/04/17 10:42 Vitamins (Sjr) - PO 1 tab DAILY DEV Administration Pseudoephedrine/Triprolidine 1 combo 04/26/17 12:56 Actifed - PO TID PRN NASAL CONGESTION Thiamine HCl 100 mg 04/26/17 22:00 05/03/17 21:36 Vitamin B1 - PO 100 mg HS DEV Administration Medication(s) Change(s): increase Prozac 20 mg po daily. Current Side Effect: No Lab tests ordered: No Lab tests reviewed: Yes Provider note:: Patient reports has a difficult time to stay in treatment, having urges to leave treatment and have a beer or cigarettes, he understands that alcohol destroyed his heatlth, also spoke about his past and interpersonal issues, guilt over not being a carring , c/o feeling depressed. Suupportive therapy provided, discussed treatment plan, will increase Prozac 20 mg po daily, monitor progress as needed. Total face to face time:: 35 Mental Status Exam - Mental Status Exam Alert and Oriented to: Time, Place, Person Cognitive Function: Good Patient Appearance: Well Groomed Mood: Depressed, Sad, Anxious Affect: Appropriate, Mood Congruent Patient Behavior: Appropriate, Cooperative Speech Pattern: Clear Voice Loudness: Normal Thought Process: Intact, Goal Oriented Thought Disorder: Not Present Hallucinations: Denies Suicidal Ideation: Denies Homicidal Ideation: Denies Insight/Judgement: Fair Sleep: Fair Appetite: Good Muscle strength/Tone: Normal Gait/Station: Normal Psychiatric Treatment Plan - Problem List (1) Alcohol dependence Current Visit: No (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
[2017-05-04] MEDS: THIAMINE HCL 100 MG TABLET (FP) PO SCH (21:42)
[2017-05-04] MEDS: hydrOXYzine PAMOATE 50 MG CAPSULE (FP) PO PRN (21:44)
[2017-05-04] MEDS: NICOTINE POLACRILEX 4 MG GUM BC PRN (21:45)
[2017-05-05] MEDS: IBUPROFEN 400 MG TABLET (FP) PO PRN ×3 (06:03→21:53)
[2017-05-05] MEDS: NICOTINE POLACRILEX 4 MG GUM BC PRN ×2 (06:04→18:34)
[2017-05-05] MEDS: PRENATAL VITAMINS W/ FOLIC ACID TABLET (FP) PO SCH (10:27)
[2017-05-05] MEDS: amLODIPine BESYLATE 10 MG TABLET (FP) PO SCH (10:27)
[2017-05-05] MEDS: LISINOPRIL 10 MG TABLET (FP) PO SCH (10:27)
[2017-05-05] MEDS: FUROSEMIDE 40 MG TABLET (FP) PO SCH (10:27)
[2017-05-05] MEDS: GABAPENTIN 300 MG CAPSULE (FP) PO SCH ×2 (10:27→21:52)
[2017-05-05] MEDS: FERROUS SO4 325 MG TABLET (FP) PO SCH ×2 (10:27→21:52)
[2017-05-05] MEDS: NAPHAZOLINE/PHENIRAMINE OPHTHALMIC 15 ML BOTTLE OU SCH ×4 (10:28→21:52)
[2017-05-05] MEDS: FLUoxetine HCL 20 MG CAPSULE (FP) PO SCH (10:28)
[2017-05-05] MEDS: FLUOCINONIDE 0.05% TOP OINT (60 GM TUBE) TP SCH ×2 (10:29→21:54)
[2017-05-05] MEDS: NICOTINE 21 MG/24 HOURS TOPICAL PATCH TD SCH (10:30)
[2017-05-05] MEDS ORDERED: MAGNESIUM CITRATE 300 ML BOTTLE PO PRN (12:18)
[2017-05-05] MEDS: hydrOXYzine PAMOATE 50 MG CAPSULE (FP) PO PRN ×2 (14:13→21:52)
[2017-05-05] MEDS: THIAMINE HCL 100 MG TABLET (FP) PO SCH (21:52)
[2017-05-06] MEDS: ACETAMINOPHEN 325 MG TABLET (FP) PO PRN (01:10)
[2017-05-06] MEDS: NICOTINE 21 MG/24 HOURS TOPICAL PATCH TD SCH (10:18)
[2017-05-06] MEDS: LISINOPRIL 10 MG TABLET (FP) PO SCH (10:18)
[2017-05-06] MEDS: PRENATAL VITAMINS W/ FOLIC ACID TABLET (FP) PO SCH (10:18)
[2017-05-06] MEDS: GABAPENTIN 300 MG CAPSULE (FP) PO SCH ×2 (10:18→21:38)
[2017-05-06] MEDS: amLODIPine BESYLATE 10 MG TABLET (FP) PO SCH (10:18)
[2017-05-06] MEDS: FERROUS SO4 325 MG TABLET (FP) PO SCH ×2 (10:18→21:37)
[2017-05-06] MEDS: FLUoxetine HCL 20 MG CAPSULE (FP) PO SCH (10:18)
[2017-05-06] MEDS: IBUPROFEN 400 MG TABLET (FP) PO PRN ×2 (10:20→21:39)
[2017-05-06] MEDS: hydrOXYzine PAMOATE 50 MG CAPSULE (FP) PO PRN ×3 (10:21→21:39)
[2017-05-06] MEDS: NAPHAZOLINE/PHENIRAMINE OPHTHALMIC 15 ML BOTTLE OU SCH ×4 (10:22→21:37)
[2017-05-06] MEDS: NICOTINE POLACRILEX 4 MG GUM BC PRN ×3 (10:22→21:41)
[2017-05-06] MEDS: AMMONIUM LACTATE 12% LOTION 225 GM BOTTLE TP PRN (10:23)
[2017-05-06] MEDS: FLUOCINONIDE 0.05% TOP OINT (60 GM TUBE) TP SCH ×2 (10:23→21:38)
[2017-05-06] MEDS: CYCLOBENZAPRINE HCL 10 MG TABLET (FP) PO PRN (14:49)
[2017-05-06] MEDS: THIAMINE HCL 100 MG TABLET (FP) PO SCH (21:37)
[2017-05-07] MEDS: PRENATAL VITAMINS W/ FOLIC ACID TABLET (FP) PO SCH (10:23)
[2017-05-07] MEDS: amLODIPine BESYLATE 10 MG TABLET (FP) PO SCH (10:23)
[2017-05-07] MEDS: LISINOPRIL 10 MG TABLET (FP) PO SCH (10:23)
[2017-05-07] MEDS: FERROUS SO4 325 MG TABLET (FP) PO SCH ×2 (10:24→21:28)
[2017-05-07] MEDS: GABAPENTIN 300 MG CAPSULE (FP) PO SCH ×2 (10:24→21:28)
[2017-05-07] MEDS: FLUoxetine HCL 20 MG CAPSULE (FP) PO SCH (10:24)
[2017-05-07] MEDS: IBUPROFEN 400 MG TABLET (FP) PO PRN ×3 (10:25→23:27)
[2017-05-07] MEDS: hydrOXYzine PAMOATE 50 MG CAPSULE (FP) PO PRN ×3 (10:25→21:29)
[2017-05-07] MEDS: NAPHAZOLINE/PHENIRAMINE OPHTHALMIC 15 ML BOTTLE OU SCH ×4 (10:27→21:28)
[2017-05-07] MEDS: NICOTINE 21 MG/24 HOURS TOPICAL PATCH TD SCH (10:27)
[2017-05-07] MEDS: NICOTINE POLACRILEX 4 MG GUM BC PRN (10:28)
[2017-05-07] MEDS: FLUOCINONIDE 0.05% TOP OINT (60 GM TUBE) TP SCH ×2 (10:46→21:28)
[2017-05-07] MEDS: MAGNESIUM HYDROX 2400MG/30ML ORAL SUSPENSION 30 ML CUP PO PRN (10:46)
[2017-05-07] MEDS: THIAMINE HCL 100 MG TABLET (FP) PO SCH (21:28)
[2017-05-08] MEDS: IBUPROFEN 400 MG TABLET (FP) PO PRN ×2 (06:21→17:38)
[2017-05-08] MEDS: FLUoxetine HCL 20 MG CAPSULE (FP) PO SCH (10:29)
[2017-05-08] MEDS: PRENATAL VITAMINS W/ FOLIC ACID TABLET (FP) PO SCH (10:29)
[2017-05-08] MEDS: FERROUS SO4 325 MG TABLET (FP) PO SCH ×2 (10:29→21:42)
[2017-05-08] MEDS: LISINOPRIL 10 MG TABLET (FP) PO SCH (10:29)
[2017-05-08] MEDS: GABAPENTIN 300 MG CAPSULE (FP) PO SCH ×2 (10:29→21:42)
[2017-05-08] MEDS: NAPHAZOLINE/PHENIRAMINE OPHTHALMIC 15 ML BOTTLE OU SCH ×4 (10:30→21:44)
[2017-05-08] MEDS: FLUOCINONIDE 0.05% TOP OINT (60 GM TUBE) TP SCH ×2 (10:30→21:45)
[2017-05-08] MEDS: NICOTINE 21 MG/24 HOURS TOPICAL PATCH TD SCH (10:30)
[2017-05-08] MEDS: hydrOXYzine PAMOATE 50 MG CAPSULE (FP) PO PRN ×3 (10:35→21:44)
[2017-05-08] MEDS: NICOTINE POLACRILEX 4 MG GUM BC PRN (10:38)
--- NOTE | 2017-05-08 10:45 | PN ---
S Progress Note Note: swelling with pain and erythema of right leg, r/o dvt r/o cellulitis of right leg cirrhosis rx to er for evaluation and treatment at [facility] spoke with dr santos,to be transported by [facility]
[2017-05-08] MEDS: amLODIPine BESYLATE 10 MG TABLET (FP) PO SCH (11:10)
[2017-05-08] MEDS ORDERED: CEPHALEXIN MONOHYDRATE 500 MG CAPSULE (UD) PO SCH (12:00)
[2017-05-08] MEDS: THIAMINE HCL 100 MG TABLET (FP) PO SCH (21:42)
[2017-05-08] MEDS: CLINDAMYCIN HCL 150 MG CAPSULE (FP) PO SCH (21:42)
[2017-05-09] MEDS: IBUPROFEN 400 MG TABLET (FP) PO PRN ×4 (01:02→22:55)
[2017-05-09] MEDS: hydrOXYzine PAMOATE 50 MG CAPSULE (FP) PO PRN ×4 (02:56→22:55)
[2017-05-09] MEDS: CLINDAMYCIN HCL 150 MG CAPSULE (FP) PO SCH ×3 (06:17→21:30)
[2017-05-09] MEDS: NICOTINE 21 MG/24 HOURS TOPICAL PATCH TD SCH (10:30)
[2017-05-09] MEDS: amLODIPine BESYLATE 10 MG TABLET (FP) PO SCH (10:30)
[2017-05-09] MEDS: LISINOPRIL 10 MG TABLET (FP) PO SCH (10:30)
[2017-05-09] MEDS: PRENATAL VITAMINS W/ FOLIC ACID TABLET (FP) PO SCH (10:30)
[2017-05-09] MEDS: GABAPENTIN 300 MG CAPSULE (FP) PO SCH ×2 (10:30→21:31)
[2017-05-09] MEDS: FLUoxetine HCL 20 MG CAPSULE (FP) PO SCH (10:30)
[2017-05-09] MEDS: FERROUS SO4 325 MG TABLET (FP) PO SCH ×2 (10:30→21:31)
[2017-05-09] MEDS: FLUOCINONIDE 0.05% TOP OINT (60 GM TUBE) TP SCH ×2 (10:31→21:32)
[2017-05-09] MEDS: NAPHAZOLINE/PHENIRAMINE OPHTHALMIC 15 ML BOTTLE OU SCH ×4 (10:31→21:31)
[2017-05-09] MEDS: THIAMINE HCL 100 MG TABLET (FP) PO SCH (21:31)
[2017-05-10] MEDS: CLINDAMYCIN HCL 150 MG CAPSULE (FP) PO SCH ×3 (06:20→21:43)
[2017-05-10] MEDS: NICOTINE POLACRILEX 4 MG GUM BC PRN ×4 (06:21→21:46)
[2017-05-10] MEDS: hydrOXYzine PAMOATE 50 MG CAPSULE (FP) PO PRN ×3 (06:21→21:45)
[2017-05-10] MEDS: NICOTINE 21 MG/24 HOURS TOPICAL PATCH TD SCH (10:29)
[2017-05-10] MEDS: NAPHAZOLINE/PHENIRAMINE OPHTHALMIC 15 ML BOTTLE OU SCH ×4 (10:29→21:44)
[2017-05-10] MEDS: FLUOCINONIDE 0.05% TOP OINT (60 GM TUBE) TP SCH ×2 (10:29→21:45)
[2017-05-10] MEDS: AMMONIUM LACTATE 12% LOTION 225 GM BOTTLE TP PRN (10:31)
[2017-05-10] MEDS: IBUPROFEN 400 MG TABLET (FP) PO PRN ×3 (10:33→23:33)
[2017-05-10] MEDS: FERROUS SO4 325 MG TABLET (FP) PO SCH ×2 (10:34→21:43)
[2017-05-10] MEDS: PRENATAL VITAMINS W/ FOLIC ACID TABLET (FP) PO SCH (10:34)
[2017-05-10] MEDS: LISINOPRIL 10 MG TABLET (FP) PO SCH (10:34)
[2017-05-10] MEDS: GABAPENTIN 300 MG CAPSULE (FP) PO SCH ×2 (10:34→21:43)
[2017-05-10] MEDS: amLODIPine BESYLATE 10 MG TABLET (FP) PO SCH (10:34)
[2017-05-10] MEDS: FLUoxetine HCL 20 MG CAPSULE (FP) PO SCH (10:34)
[2017-05-10] MEDS: THIAMINE HCL 100 MG TABLET (FP) PO SCH (21:43)
[2017-05-11] MEDS: CLINDAMYCIN HCL 150 MG CAPSULE (FP) PO SCH ×3 (06:33→21:52)
[2017-05-11 07:17] VITALS: TEMP 97.7
[2017-05-11] MEDS: PRENATAL VITAMINS W/ FOLIC ACID TABLET (FP) PO SCH (10:27)
[2017-05-11] MEDS: FERROUS SO4 325 MG TABLET (FP) PO SCH ×2 (10:27→21:52)
[2017-05-11] MEDS: NAPHAZOLINE/PHENIRAMINE OPHTHALMIC 15 ML BOTTLE OU SCH ×4 (10:27→21:52)
[2017-05-11] MEDS: amLODIPine BESYLATE 10 MG TABLET (FP) PO SCH (10:27)
[2017-05-11] MEDS: LISINOPRIL 10 MG TABLET (FP) PO SCH (10:27)
[2017-05-11] MEDS: FLUoxetine HCL 20 MG CAPSULE (FP) PO SCH (10:27)
[2017-05-11] MEDS: GABAPENTIN 300 MG CAPSULE (FP) PO SCH ×2 (10:27→21:52)
[2017-05-11] MEDS: IBUPROFEN 400 MG TABLET (FP) PO PRN ×2 (10:28→17:28)
[2017-05-11] MEDS: NICOTINE 21 MG/24 HOURS TOPICAL PATCH TD SCH (10:29)
[2017-05-11] MEDS: FLUOCINONIDE 0.05% TOP OINT (60 GM TUBE) TP SCH ×2 (10:30→21:53)
[2017-05-11] MEDS: NICOTINE POLACRILEX 4 MG GUM BC PRN ×2 (10:30→17:29)
--- NOTE | 2017-05-11 12:51 | PN ---
JUANA Progress Note Note: PATIENT WILL BE DISCHARGED IN AM,WILL FOLLOW UP WITH PMD AND GI SPECIALIST FOR MEDICAL PROBLEM UPON DISCHARGED OR TO ER IF ANY PROBLEM
[2017-05-11] MEDS: hydrOXYzine PAMOATE 50 MG CAPSULE (FP) PO PRN ×3 (14:21→23:34)
[2017-05-11] MEDS: THIAMINE HCL 100 MG TABLET (FP) PO SCH (21:52)
[2017-05-11] MEDS: ACETAMINOPHEN 325 MG TABLET (FP) PO PRN (21:54)
[2017-05-12] MEDS: CLINDAMYCIN HCL 150 MG CAPSULE (FP) PO SCH (06:40)
[2017-05-12 06:49] VITALS: BP 143/78; PULSE 69
--- NOTE | 2017-05-12 09:48 | PN ---
Psychiatric Progress Note Vital Signs: Vital Signs Period Temp Pulse Resp BP Sys/Horton Pulse Ox Last 24 Hr 97.7 F 69 16-19 143/78 Date of Session: 05/12/17 Chief Complaint:: discharge visit HPI: Patient is addressing alcohol dependence comorbid alcohol induced depression and psychosis. ROS: Hypertension,diabetes mellitus,cirrhosis of liver medically managed. Current Medications: Active Medications Generic Name Dose Route Start Last Admin Trade Name Freq PRN Reason Stop Dose Admin Acetaminophen 650 mg 04/26/17 12:56 05/11/17 21:54 Tylenol - PO 650 mg Q4H PRN Administration PAIN Al Hydroxide/Mg Hydroxide 30 ml 04/26/17 12:56 04/28/17 20:32 Mylanta Oral Suspension - PO 30 ml Q6H PRN Administration DYSPEPSIA Amlodipine Besylate 10 mg 04/29/17 10:00 05/11/17 10:27 Norvasc - PO 10 mg DAILY DEV Administration Clindamycin HCl 300 mg 05/08/17 22:00 05/12/17 06:40 Cleocin - PO 300 mg TID DEV Administration Cyclobenzaprine HCl 10 mg 04/28/17 11:54 05/06/17 14:49 Flexeril - PO 10 mg BID PRN Administration muscle relaxer Diphenhydramine HCl 50 mg 04/26/17 12:56 Benadryl - PO HSMR1 PRN INSOMNIA Eucalyptus/Menthol/Phenol/Sorbitol 1 each 04/26/17 12:56 Cepastat Lozenge - MM Q4H PRN SORE THROAT Ferrous Sulfate 325 mg 05/04/17 12:00 05/11/17 21:52 Feosol - PO 325 mg BID DEV Administration Fluocinonide 1 applic 04/27/17 14:22 05/11/17 21:53 Lidex 0.05% Ointment - TP Not Given BID DEV Fluoxetine HCl 20 mg 05/05/17 10:00 05/11/17 10:27 Prozac - PO 20 mg DAILY DEV Administration Gabapentin 300 mg 04/28/17 22:00 05/11/17 21:52 Neurontin - PO 300 mg BID DEV Administration Guaifenesin 10 ml 04/26/17 12:56 Robitussin Dm - PO Q6H PRN COUGH Hydroxyzine Pamoate 50 mg 04/26/17 12:56 05/11/17 23:34 Vistaril - PO 50 mg Q4H PRN Administration AGITATION Ibuprofen 400 mg 04/26/17 12:56 05/11/17 17:28 Motrin - PO 400 mg Q6H PRN Administration SEVERE PAIN Lactic Acid 1 applic 04/26/17 13:02 05/10/17 10:31 Lac-Hydrin 12 TP 1 applic BID PRN Administration DRY SKIN Lactic Acid 1 applic 04/28/17 11:54 05/02/17 10:14 Lac-Hydrin 12 TP 1 applic DAILY PRN Administration dry skin Lisinopril 10 mg 04/29/17 10:00 05/11/17 10:27 Prinivil PO 10 mg DAILY DEV Administration Loperamide HCl 4 mg 04/26/17 12:56 Imodium - PO Q6H PRN DIARRHEA Magnesium Citrate 300 ml 04/26/17 12:56 05/05/17 14:16 Citroma - PO 300 ml Q48H PRN Administration CONSTIPATION Magnesium Hydroxide 30 ml 04/26/17 12:56 05/07/17 10:46 Milk Of Magnesia - PO 30 ml DAILY PRN Administration CONSTIPATION Naphazoline HCl/Pheniramine Maleate 1 drop 04/26/17 18:00 05/11/17 21:52 Visine-A - OU 1 drop QID DEV Administration Nicotine 21 mg 04/27/17 10:00 05/11/17 10:29 Nicoderm Patch - TD 21 mg DAILY DEV Administration Nicotine Polacrilex 4 mg 04/26/17 12:56 05/11/17 17:29 Nicorette Gum - BC 4 mg Q2H PRN Administration NICOTINE REPLACEMENT RX Multivit/Folic Acid/Iron 1 tab 04/27/17 10:00 05/11/17 10:27 Vitamins (Sjr) - PO 1 tab DAILY DEV Administration Pseudoephedrine/Triprolidine 1 combo 04/26/17 12:56 Actifed - PO TID PRN NASAL CONGESTION Thiamine HCl 100 mg 04/26/17 22:00 05/11/17 21:52 Vitamin B1 - PO 100 mg HS DEV Administration Current Side Effect: No Lab tests ordered: No Lab tests reviewed: Yes Provider note:: Patient has completed today his teratment and met his goals will continue to address his issues at [facility] outpatient treatment program. He gained insights into his problems, understands the negative impact alcohol made on his life, he is motivated to continue maintain abstience, patient reports he feels much better since started Prozac, medication well tolerated, scripts for 30 days provided, stable for discharge today. Total face to face time:: 35 Mental Status Exam - Mental Status Exam Alert and Oriented to: Time, Place, Person Cognitive Function: Good Patient Appearance: Well Groomed Mood: Hopeful Affect: Appropriate, Mood Congruent Patient Behavior: Appropriate, Cooperative Speech Pattern: Appropriate Voice Loudness: Normal Thought Process: Intact, Goal Oriented Thought Disorder: Not Present Hallucinations: Denies Suicidal Ideation: Denies Homicidal Ideation: Denies Insight/Judgement: Fair Sleep: Fair Appetite: Good Muscle strength/Tone: Normal Gait/Station: Normal Psychiatric Treatment Plan - Problem List (1) Alcohol dependence Current Visit: No (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
[2017-05-12] MEDS: PRENATAL VITAMINS W/ FOLIC ACID TABLET (FP) PO SCH (10:15)
[2017-05-12] MEDS: amLODIPine BESYLATE 10 MG TABLET (FP) PO SCH (10:15)
[2017-05-12] MEDS: FLUoxetine HCL 20 MG CAPSULE (FP) PO SCH (10:15)
[2017-05-12] MEDS: FERROUS SO4 325 MG TABLET (FP) PO SCH (10:15)
[2017-05-12] MEDS: LISINOPRIL 10 MG TABLET (FP) PO SCH (10:15)
[2017-05-12] MEDS: GABAPENTIN 300 MG CAPSULE (FP) PO SCH (10:15)
[2017-05-12] MEDS: hydrOXYzine PAMOATE 50 MG CAPSULE (FP) PO PRN (10:16)
[2017-05-12] MEDS: IBUPROFEN 400 MG TABLET (FP) PO PRN (10:17)
[2017-05-12] MEDS: NAPHAZOLINE/PHENIRAMINE OPHTHALMIC 15 ML BOTTLE OU SCH (10:18)
[2017-05-12] MEDS: FLUOCINONIDE 0.05% TOP OINT (60 GM TUBE) TP SCH (10:19)
[2017-05-12] MEDS: NICOTINE 21 MG/24 HOURS TOPICAL PATCH TD SCH (10:19)
[2017-05-12] MEDS: NICOTINE POLACRILEX 4 MG GUM BC PRN (10:20)
== END 2017-05-12 11:30 | disposition home or self-care (01) | DRG 772 ==
LOC: YASAS 09:01 → Y5N 15:14
PROVIDERS: ADMIT Psychiatry & Neurology Psychiatry; ATTEND Psychiatry & Neurology Psychiatry
PROC: HZ42ZZZ Group Counseling for Substance Abuse Treatment, Cognitive-Behavioral (ICD-10-PCS; principal; 2017-04-26)
DX: F10.20 Alcohol dependence, uncomplicated (principal); F10.24 Alcohol dependence with alcohol-induced mood disorder; F10.259 Alcohol dependence with alcohol-induced psychotic disorder, unspecified; I10 Essential (primary) hypertension; E11.9 Type 2 diabetes mellitus without complications; K74.60 Unspecified cirrhosis of liver; D64.9 Anemia, unspecified; Z72.0 Tobacco use; R60.9 Edema, unspecified; M79.604 Pain in right leg
CPT/HCPCS: 36415; 80053; 81003; 81015; 84436; 84443; 84479; 85027; 85610; 93005; 93010

== ENCOUNTER 2017-05-08 12:01 | Emergency (ER) | payer OTHER ==
[2017-05-08 12:36] VITALS: BP 140/75; PULSE 80; TEMP 98; BMI 35.9
--- NOTE | 2017-05-08 12:37 | PDOC ---
History of Present Illness - History of Present Illness Initial Comments: 05/08/17 13:22 Patient is a 46 year old male with significant medical hx of HTN, DM (no current medications), liver cirrhosis and alcohol abuse who has been sent over from [facility] by Dr. Nolan for right lower extremity pain, redness and swelling for three days. Patient's swelling is localized from the roght knee inferior down to the foot and redness localized from right mid calf down to the foot. Patient denies any fever, chills, or recent trauma. He reports having cellulitis of the right lower extremity in the past. Patient denies any risk factors for blood clots including recent travel. The patient does not offer any other complaints. <Kiya Macias - Last Filed: 05/08/17 14:18> - General History Source: Patient, Old Records Exam Limitations: No Limitations <Yamila Miller - Last Filed: 05/08/17 15:17> - General Chief Complaint: Edema Stated Complaint: LEG SWELLING Time Seen by Provider: 05/08/17 12:35 Past History <Kiya Macias - Last Filed: 05/08/17 14:18> - Past Medical History Anemia: No Asthma: No Cancer: No Cardiac Disorders: Yes CVA: No COPD: No CHF: No Dementia: No Diabetes: Yes GI Disorders: Yes (cirrhosis etoh abuse) Disorders: No HTN: Yes Hypercholesterolemia: No Kidney Stones: No Liver Disease: Yes (CIRRHOSIS OF LIVER) Psychiatric Problems: Yes (DEPRESSION, ANXEITY) Suicide Attempt (Hx): No Seizures: No Thyroid Disease: No Other medical history: etoh abuse - Surgical History Abdominal Surgery: No Appendectomy: No Cardiac Surgery: No Cholecystectomy: No Lung Surgery: No Neurologic Surgery: No Orthopedic Surgery: Yes (right shoulder due to dislocation 6 years ago) - Family Disease History Family Disease History: Heart Disease: Mother - Reproductive History Testicular Surgery: No - Immunization History Immunization Up to Date: Yes - Psycho/Social/Smoking Cessation Hx Anxiety: No Suicidal Ideation: No Smoking Status: No Smoking History: Never smoked Have you smoked in the past 12 months: No Number of Cigarettes Smoked Daily: 1 If you are a former smoker, when did you quit?: 2011 Cigars Per Day: 0 Information on smoking cessation initiated: No 'Breaking Loose' booklet given: 04/18/17 Hx Alcohol Use: No Drug/Substance Use Hx: No Substance Use Type: Alcohol Hx Substance Use Treatment: Yes <Yamila Miller - Last Filed: 05/08/17 15:17> - Past Medical History Allergies/Adverse Reactions: Allergies Allergy/AdvReac Type Severity Reaction Status Date / Time shellfish derived Allergy Severe Swelling Verified 05/08/17 12:36 No Known Drug Allergies Allergy Verified 05/08/17 12:36 NKDA Allergy Uncoded 05/08/17 12:36 Home Medications: Ambulatory Orders Amlodipine Besylate [Norvasc -] 10 mg PO DAILY 04/28/17 Escitalopram Oxalate [Lexapro -] 20 mg PO DAILY 04/28/17 Gabapentin [Neurontin -] 300 mg PO BID 04/28/17 Lisinopril 10 mg PO DAILY 04/28/17 Meloxicam 7.5 mg PO DAILY 04/28/17 Quetiapine Fumarate [Seroquel] 100 mg PO HS 04/28/17 Clindamycin [Cleocin -] 300 mg PO TID #21 capsule 05/08/17 Review of Systems - Review of Systems Comments:: 05/08/17 13:29 GENERAL/CONSTITUTIONAL: No fever or chills. No weakness. HEAD, EYES, EARS, NOSE AND THROAT: No change in vision. No ear pain or discharge. No sore throat. CARDIOVASCULAR: No chest pain or shortness of breath. RESPIRATORY: No cough, wheezing, or hemoptysis. GASTROINTESTINAL: No nausea, vomiting, diarrhea or constipation. GENITOURINARY: No dysuria, frequency, or change in urination. MUSCULOSKELETAL: Right lower extremity pain, redness, and swelling. No neck or back pain. ENDOCRINE: No increased thirst. No abnormal weight change. SKIN: No rash NEUROLOGIC: No headache, vertigo, loss of consciousness, or change in strength/ sensation. <Kiya Macias - Last Filed: 05/08/17 14:18> *Physical Exam - Vital Signs Last Vital Signs Temp Pulse Resp BP Pulse Ox 98.0 F 80 18 140/75 100 05/08/17 12:01 05/08/17 12:01 05/08/17 12:01 05/08/17 12:01 05/08/17 12:01 - Physical Exam Comments: 05/08/17 13:29 GENERAL: Awake, alert, and fully oriented, in no acute distress HEAD: No signs of trauma EYES: PERRLA, EOMI, sclera anicteric, conjunctiva clear ENT: Auricles normal inspection, hearing grossly normal, nares patent, oropharynx clear without exudates. Moist mucosa NECK: Normal ROM, supple, no lymphadenopathy, JVD, or masses LUNGS: Breath sounds equal, clear to auscultation bilaterally. No wheezes, and no crackles HEART: Regular rate and rhythm, normal S1 and S2, no murmurs, rubs or gallops ABDOMEN: Soft, nontender, normoactive bowel sounds. No guarding, no rebound. No masses EXTREMITIES: Bilateral lower extremity edema, right greater than left, with circumferential erythema to distal leg not including foot. Distal pulses are +2 and palpable. NEUROLOGICAL: Cranial nerves II through XII grossly intact. Normal speech, normal gait SKIN: Warm, Dry, normal turgor, no rashes or lesions noted. HEMATOLOGIC/LYMPHATIC: No anemia, easy bleeding, or history of blood clots. ALLERGIC/IMMUNOLOGIC: No hives or skin allergy. <Kiya Macias - Last Filed: 05/08/17 14:18> - Vital Signs Last Vital Signs Temp Pulse Resp BP Pulse Ox 98.0 F 80 18 140/75 100 05/08/17 12:01 05/08/17 12:01 05/08/17 12:01 05/08/17 12:01 05/08/17 12:01 <Yamila Miller - Last Filed: 05/08/17 15:17> ED Treatment Course - RADIOLOGY Radiograph Interpretation: 05/08/17 14:18 Vascular Study Impression: There is no evidence of deep venous thromboses in both lower extremities. Soft tissue swelling in the right popliteal fossa and proximal leg. Correlate clinically. Reported By: Tosin Huerta MD <Kiya Macias - Last Filed: 05/08/17 14:18> - LABORATORY CBC & Chemistry Diagram: 05/08/17 14:20 05/08/17 14:20 - RADIOLOGY Radiology Studies Ordered: Category Date Time Status DUPLEX VASCUL US-2LEGS [US] Stat Ultrasound 05/08/17 12:32 Ordered <Yamila Miller - Last Filed: 05/08/17 15:17> Medical Decision Making - Medical Decision Making 05/08/17 13:50 46 y/o male with h/o HTN, ETOH abuse, liver cirrhosis presents to the ED with c/ o 3 day h/o pain, swelling and erythema to the RLE. DDx includes but is not limited to: cellulitis, DVT. Plan: 1 Labs 2. LE ultrasound 3. Observe and re-evaluate 05/08/17 15:13 Addendum: Labs were removed and are noted in the EMR. The ultrasound was negative for DVT. Will treat for cellullitis with clindamycin--first dose given in the ED. The patient is being transferred back to [facility] for continuation of detox. <Yamila Miller - Last Filed: 05/08/17 15:17> *DC/Admit/Observation/Transfer - Attestations Scribe Attestion: 05/08/17 13:31 Documentation prepared by Kiya Macias, acting as certified medical biller for Yamila Miller MD. <Kiya Macias - Last Filed: 05/08/17 14:18> - Discharge Dispostion Admit: No - Attestations Physician Attestion: 05/08/17 13:50 I, Dr. Yamila Miller, attest that the scribes documentation that appears above has been prepared under my direction and personally reviewed by me in its entirety. I confirmed that the note above accurately reflects all work, treatment, procedures, and medical decision-making performed by me. <Yamila Miller - Last Filed: 05/08/17 15:17> Diagnosis at time of Disposition: Cellulitis of right leg without foot - Discharge Dispostion Disposition: HOME Condition at time of disposition: Stable - Prescriptions Prescriptions: Clindamycin [Cleocin -] 300 mg PO TID #21 capsule - Referrals Referrals: Rene Ward MD [Primary Care Provider] - - Patient Instructions Printed Discharge Instructions: DI for Cellulitis -- Adult Additional Instructions: You have a skin infection in your right leg and you are being prescribed Clindamycin 300mg--take one capsule 3 times per day for the next week. Please follow-up with your primary care physician within the next week and return to the ED if your symptoms persist, worsen or new symptoms arise. Your glucose is also elevated and you must follow-up with your primary care physician for further monitoring and treatment.
[2017-05-08 14:36] LABS: BASOPHIL 1.2 % (0-2.0); EOSINOPHIL 6.1 % (0-4.5); MCH 28.7 pg (25.7-33.7); MCHC 33.7 g/dl (32.0-35.9); MEAN CELL VOLUME 85.2 fl (80-96); MEAN PLT VOLUME 9.3 fl (7.5-11.1); NEUTROPHILS 69.5 % (42.8-82.8); PLATELET COUNT 81 K/MM3 (134-434); RDW 18.1 % (11.9-15.9); WHITE BLOOD COUNT 3.9 K/mm3 (4.0-10.0)
[2017-05-08 14:57] LABS: CALCIUM 8.9 mg/dL (8.5-10.1); COCKROFT - GAULT 113.04; CREATININE 1.3 mg/dL (0.7-1.3); MAGNESIUM 2.5 mg/dL (1.8-2.4); PHOSPHOROUS 4.7 mg/dL (2.5-4.9)
[2017-05-08] MEDS ORDERED: CLINDAMYCIN HCL 150 MG CAPSULE (FP) PO ONE (15:11)
[2017-05-08] MEDS ORDERED: CLINDAMYCIN HCL 150 MG CAPSULE (FP) ONE (15:16)
[2017-05-08 15:24] LABS: INR 1.05 (0.82-1.09); PROTHROMBIN TIME (PATIENT) 11.6 SEC (9.98-11.88)
[2017-05-08 15:27] LABS: ACTIVATED PTT 32.7 SECONDS (26.9-34.4)
== END 2017-05-08 16:05 | disposition home or self-care (01) ==
LOC: JER 12:01
DX: L03.115 Cellulitis of right lower limb (principal); I10 Essential (primary) hypertension; F10.10 Alcohol abuse, uncomplicated; K74.60 Unspecified cirrhosis of liver
CPT/HCPCS: 36415; 80048; 83735; 84100; 85025; 85610; 85730; 93970-TC; 99281-25

== ENCOUNTER → 2017-07-09 | Emergency (ER) | payer OTHER ==
[~2017-07-09] MED LIST: chlordiazePOXIDE HCL 25 MG CAPSULE ONE; chlordiazePOXIDE HCL 25 MG CAPSULE PO ONE
[2017-07-09 23:09] VITALS: BMI 25.1
--- NOTE | 2017-07-09 23:28 | PDOC ---
History of Present Illness - General Stated Complaint: INTOXICATED Time Seen by Provider: 07/09/17 22:48 History Source: Patient Exam Limitations: No Limitations, Intoxication - History of Present Illness Initial Comments: CHIEF COMPLAINT: 46 y/o intoxicated male BIB EMS for intoxication. HISTORY OF PRESENT ILLNESS: EMS stated they found the patient sitting on the ground. The patient does not recall how much he drank. He denies all complaints of pain. No stated falls or head trauma. Vital signs on arrival are REVIEW OF SYSTEMS: GENERAL/CONSTITUTIONAL: No fever/chills. No weakness. No weight change. HEAD, EYES, EARS, NOSE AND THROAT: No change in vision. No ear pain or discharge. No sore throat. CARDIOVASCULAR: No chest pain or shortness of breath. RESPIRATORY: No cough, wheezing, or hemoptysis. GASTROINTESTINAL: No abd pain, nausea, vomiting, diarrhea. GENITOURINARY: No dysuria, frequency, or change in urination. MUSCULOSKELETAL: No joint or muscle swelling or pain. No neck or back pain. SKIN: No rash or easy bruising. NEUROLOGIC: No headache, vertigo, loss of consciousness, or loss of sensation. PHYSICAL EXAM: GENERAL: The patient is sleeping but easily arousable to verbal stimuli. HEAD: Normal with no signs of trauma. ENT: Pupils equal, round and reactive to light, extraocular movements intact, sclera anicteric, conjunctiva clear. Neck supple. LUNGS: Clear to auscultation bilaterally. Normal excursion. No respiratory distress or use of accessory muscles. CV: RRR, S1/S2, no MRG. Cap refill < 2 sec. ABDOMEN: Soft, non-distended, non-tender even to deep palpation, no hepatomegaly or splenomegaly, no masses. EXTREMITIES: Normal range of motion, no edema. NEUROLOGICAL: +slurred speech. Gait not assessed in the ER. CN II-XII grossly intact. PSYCH: Normal mood, normal affect. SKIN: Warm, dry, normal turgor, no rashes or lesions noted. Past History - Past Medical History Allergies/Adverse Reactions: Allergies Allergy/AdvReac Type Severity Reaction Status Date / Time shellfish derived Allergy Severe Swelling Verified 05/08/17 12:36 No Known Drug Allergies Allergy Verified 05/08/17 12:36 NKDA Allergy Uncoded 05/08/17 12:36 Home Medications: Ambulatory Orders Escitalopram Oxalate [Lexapro -] 20 mg PO DAILY 04/28/17 Meloxicam 7.5 mg PO DAILY 04/28/17 Quetiapine Fumarate [Seroquel] 100 mg PO HS 04/28/17 Amlodipine Besylate [Norvasc -] 10 mg PO DAILY #30 tab 05/11/17 Clindamycin [Cleocin -] 300 mg PO TID #21 capsule 05/11/17 Ferrous Sulfate [Feosol] 325 mg PO BID #60 tab 05/11/17 Fluoxetine HCl [Prozac -] 20 mg PO DAILY #30 tab 05/11/17 Gabapentin [Neurontin -] 300 mg PO BID #60 cap 05/11/17 Lisinopril 10 mg PO DAILY #30 tab 05/11/17 Naphazoline HCl/Phenir Mal [Visine-A -] 1 drop OU QID #1 drop 05/11/17 Thiamine HCl [Vitamin B1 -] 100 mg PO HS #30 tablet 05/11/17 Anemia: No Asthma: No Cancer: No Cardiac Disorders: Yes CVA: No COPD: No CHF: No Dementia: No Diabetes: Yes GI Disorders: Yes (cirrhosis etoh abuse) Disorders: No HTN: Yes Hypercholesterolemia: No Kidney Stones: No Liver Disease: Yes (CIRRHOSIS OF LIVER) Psychiatric Problems: Yes (DEPRESSION, ANXEITY) Suicide Attempt (Hx): No Seizures: No Thyroid Disease: No - Surgical History Abdominal Surgery: No Appendectomy: No Cardiac Surgery: No Cholecystectomy: No Lung Surgery: No Neurologic Surgery: No Orthopedic Surgery: Yes (right shoulder due to dislocation 6 years ago) - Family Disease History Family Disease History: Heart Disease: Mother - Reproductive History Testicular Surgery: No - Immunization History Immunization Up to Date: Yes - Psycho/Social/Smoking Cessation Hx Anxiety: No Suicidal Ideation: No Smoking Status: No Smoking History: Never smoked Have you smoked in the past 12 months: No Number of Cigarettes Smoked Daily: 1 If you are a former smoker, when did you quit?: 2010 Cigars Per Day: 0 'Breaking Loose' booklet given: 04/18/17 Hx Alcohol Use: No Drug/Substance Use Hx: No Substance Use Type: Alcohol Hx Substance Use Treatment: Yes Medical Decision Making - Medical Decision Making A/P: 46 y/o intoxicated male with no complaints and benign physical exam. Will let the patient sleep until he can ambulate without difficulty and will then discharge. The patient did develop some tremors and was given PO librium. At 6:45am the patient was able to ambulate without difficulty in the ER, is A&O x 3 and will be discharged. *DC/Admit/Observation/Transfer Diagnosis at time of Disposition: Alcohol intoxication Qualifiers: Complication of substance-induced condition: uncomplicated Qualified Code(s): F10.920 - Alcohol use, unspecified with intoxication, uncomplicated - Discharge Dispostion Disposition: HOME Condition at time of disposition: Improved - Patient Instructions Printed Discharge Instructions: DI for Alcohol Abuse Additional Instructions: Discharge Instructions: -Return to the ER with any worsening or concerning symptoms
[2017-07-10 06:22] VITALS: BP 122/73; PULSE 80; TEMP 98.4
== END | disposition home or self-care (01) ==
LOC: JER 21:55
DX: F10.920 Alcohol use, unspecified with intoxication, uncomplicated (principal); Z87.891 Personal history of nicotine dependence
CPT/HCPCS: 99282-25

== ENCOUNTER 2017-09-22 04:48 | Inpatient (IN) | payer OTHER ==
[2017-09-22 05:03] VITALS: BMI 34.0
[2017-09-22] MEDS ORDERED: ONDANSETRON 4 MG/2 ML VIAL IVPUSH ONE (05:04)
[2017-09-22] MEDS ORDERED: FAMOTIDINE 20 MG/50 ML IVPB 50 ML IVPB ONE ×2 (05:04→06:10)
[2017-09-22] MEDS ORDERED: SODIUM CHLORIDE 1,000 ML IV STA ×2 (05:04→07:27)
[2017-09-22] MEDS ORDERED: PANTOPRAZOLE SODIUM 40 MG VIAL IVPUSH ONE (05:04)
--- NOTE | 2017-09-22 05:11 | PDOC ---
History of Present Illness - General Chief Complaint: Nausea/Vomiting Stated Complaint: NAUSEA/VOMITING Time Seen by Provider: 09/22/17 04:54 History Source: Patient Exam Limitations: No Limitations - History of Present Illness Travel History: No Initial Comments: 09/22/17 05:06 47yo Male patient w/ PmHx: HTN, Depression, ??Hep B w/ liver Cirrhosis, NIDDM, Alcohol dependence currently in treatment @ [facility], presents to ED c/o n/v/d , chills, and RUQ abd pain x 3-4 days. Patient reports he is unable to consume liquids or solids due to vomiting. He denies any current alcohol or drug use recently. Patient denies CP, back pain, diff breathing, rash, cough, congestion , fever or any other complaints at this time. PCP- Dr. Ward Timing/Duration: reports: getting worse Quality: reports: moderate Abdominal Pain Onset Location: reports: RUQ Pain Radiation: denies: no radiation, RUQ, LUQ, RLQ, LLQ, epigastric, periumbilical, flank, groin, scapula, shoulder, chest, back, other Activities at Onset: reports: no specific activity Treatment Prior to Arrive: worse with: analgesics, antacids, cold pack, heat, laxative, enema, other Aggravating Factors: worse with: None, Defecation, Eating, Emotional upset, Exertion, [place], Movement, Voiding, Change in position Alleviating Factors: worse with: None, Belching, Shallow Breathing, Defecation, Eating, Holding Breath, Passing Gas, Change in Position, Rest, Voiding, Vomiting Past History - Travel Traveled outside of the country in the last 30 days: No Close contact w/someone who was outside of country & ill: No - Past Medical History Allergies/Adverse Reactions: Allergies Allergy/AdvReac Type Severity Reaction Status Date / Time shellfish derived Allergy Severe Swelling Verified 09/22/17 05:02 No Known Drug Allergies Allergy Verified 09/22/17 05:02 NKDA Allergy Uncoded 09/22/17 05:02 Home Medications: Ambulatory Orders Escitalopram Oxalate [Lexapro -] 20 mg PO DAILY 04/28/17 Meloxicam 7.5 mg PO DAILY 04/28/17 Quetiapine Fumarate [Seroquel] 100 mg PO HS 04/28/17 Amlodipine Besylate [Norvasc -] 10 mg PO DAILY #30 tab 05/11/17 Clindamycin [Cleocin -] 300 mg PO TID #21 capsule 05/11/17 Ferrous Sulfate [Feosol] 325 mg PO BID #60 tab 05/11/17 Fluoxetine HCl [Prozac -] 20 mg PO DAILY #30 tab 05/11/17 Gabapentin [Neurontin -] 300 mg PO BID #60 cap 05/11/17 Lisinopril 10 mg PO DAILY #30 tab 05/11/17 Naphazoline HCl/Phenir Mal [Visine-A -] 1 drop OU QID #1 drop 05/11/17 Thiamine HCl [Vitamin B1 -] 100 mg PO HS #30 tablet 05/11/17 Anemia: No Asthma: No Cancer: No Cardiac Disorders: Yes CVA: No COPD: No CHF: No Dementia: No Diabetes: Yes GI Disorders: Yes (cirrhosis etoh abuse) Disorders: No HTN: Yes Hypercholesterolemia: No Kidney Stones: No Liver Disease: Yes (CIRRHOSIS OF LIVER) Psychiatric Problems: Yes (DEPRESSION, ANXEITY) Seizures: No Thyroid Disease: No - Surgical History Abdominal Surgery: No Appendectomy: No Cardiac Surgery: No Cholecystectomy: No Lung Surgery: No Neurologic Surgery: No Orthopedic Surgery: Yes (right shoulder due to dislocation 6 years ago) - Family Disease History Family Disease History: Heart Disease: Mother - Reproductive History Testicular Surgery: No - Immunization History Immunization Up to Date: Yes - Suicide/Smoking/Psychosocial Hx Smoking Status: No Smoking History: Never smoked Have you smoked in the past 12 months: No Number of Cigarettes Smoked Daily: 1 If you are a former smoker, when did you quit?: 2010 Cigars Per Day: 0 Information on smoking cessation initiated: No 'Breaking Loose' booklet given: 04/18/17 Hx Alcohol Use: No Drug/Substance Use Hx: No Substance Use Type: Alcohol Hx Substance Use Treatment: Yes Abd/GI Specific PMHX - Complaint Specific PMHX Colitis: No Diverticulitis: No Gall Bladder Disease: No GERD: No Hepatitis: No Irritable Bowel Synd (IBS): No Pancreatitis: No Review of Systems - Review of Systems Able to Perform ROS?: Yes Is the patient limited Cypriot proficient: No Constitutional: Yes: Chills, Weakness. No: Fever Respiratory: No: Cough, Shortness of Breath, Stridor, Wheezing Cardiac (ROS): No: Chest Pain, Palpitations, Syncope, Chest Tightness ABD/GI: Yes: Diarrhea, Nausea, Poor Appetite, Poor Fluid Intake, Vomiting, Abdominal cramping (RUQ). No: Abdominal Distended, Constipated, Rectal Bleeding : No: Burning, Dysuria, Flank Pain, Hematuria Musculoskeletal: No: Back Pain Integumentary: No: Bruising, Erythema, Pruritus, Rash Neurological: No: Headache, Dizziness Hematologic/Lymphatic: No: Easy Bruising All Other Systems: Reviewed and Negative *Physical Exam - Vital Signs Last Vital Signs Temp Pulse Resp BP Pulse Ox 98.4 F 108 H 19 157/96 100 09/22/17 04:56 09/22/17 04:56 09/22/17 04:56 09/22/17 04:56 09/22/17 04:56 - Physical Exam General Appearance: Yes: Nourished, Appropriately Dressed, Mild Distress. No: Apparent Distress, Moderate Distress, Severe Distress HEENT: positive: EOMI, CARYL, Normal ENT Inspection, Normal Voice, Symmetrical, TMs Normal, Pharynx Normal, Scleral Icterus (R), Scleral Icterus (L). negative : Pharyngeal Erythema, Tonsillar Exudate, Tonsillar Erythema, Nasal Congestion, Rhinorrhea, Sinus Tenderness, TM Bulging, TM Dull, TM Erythema Neck: positive: Trachea midline, Supple. negative: Rigid, Stridor, Lymphadenopathy (R), Lymphadenopathy (L), Tender lateral, Tender midline Respiratory/Chest: positive: Lungs Clear, Normal Breath Sounds. negative: Chest Tender, Respiratory Distress, Accessory Muscle Use, Labored Respiration, Rapid RR, Decreased Breath Sounds, Paradoxal Breathing, Rhonchi, Stridor, Wheezing Cardiovascular: positive: Regular Rhythm, Regular Rate Gastrointestinal/Abdominal: positive: Tender (Mild tenderness on deep palpation to RUQ), Soft, Decreased BS, Guarding, Tenderness. negative: Distended, Rebound Rectal Exam: negative: melena Musculoskeletal: positive: Normal Inspection. negative: CVA Tenderness, Decreased Range of Motion, Vertebral Tenderness Extremity: positive: Normal Capillary Refill, Normal Inspection, Normal Range of Motion, Pelvis Stable. negative: Cyanosis, Pedal Edema, Swelling, Calf Tenderness, Erythema, Inflammation Integumentary: positive: Normal Color, Dry, Warm. 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
[2017-09-22] MEDS ORDERED: morphine CARPU-JECT 4 MG/1 ML DISP.SYRIN IVPUSH ONE (05:13)
--- NOTE | 2017-09-22 05:39 | PDOC ---
*Physical Exam - Vital Signs Last Vital Signs Temp Pulse Resp BP Pulse Ox 98.4 F 108 H 19 157/96 100 09/22/17 04:56 09/22/17 04:56 09/22/17 04:56 09/22/17 04:56 09/22/17 04:56 ED Treatment Course - LABORATORY CBC & Chemistry Diagram: 09/26/17 06:10 09/26/17 06:10 Medical Decision Making - Medical Decision Making 09/22/17 05:38 agree with care from NINO Angulo *DC/Admit/Observation/Transfer Diagnosis at time of Disposition: Alcohol dependence, Elevated lactic acid level, Intractable abdominal pain, Elevated lipase
[2017-09-22 06:02] LABS: BASOPHIL 0.8 % (0-2.0); EOSINOPHIL 1.9 % (0-4.5); MCH 27.6 pg (25.7-33.7); MCHC 34.7 g/dl (32.0-35.9); MEAN CELL VOLUME 79.4 fl (80-96); MEAN PLT VOLUME 10.2 fl (7.5-11.1); NEUTROPHILS 68.4 % (42.8-82.8); PLATELET COUNT 77 K/MM3 (134-434); RDW 17.7 % (11.9-15.9); WHITE BLOOD COUNT 5.8 K/mm3 (4.0-10.0)
[2017-09-22] MEDS ORDERED: PANTOPRAZOLE SODIUM 100 ML IVPB ONE (06:09)
[2017-09-22] MEDS ORDERED: morphine CARPU-JECT 8 MG/1 ML DISP.SYRIN ONE (06:09)
[2017-09-22 06:13] LABS: PROTHROMBIN TIME (PATIENT) 11.3 SEC (9.98-11.88)
[2017-09-22 06:26] LABS: CPK 176 IU/L (39-308); TROPONIN I < 0.02 ng/ml (0.00-0.05)
[2017-09-22 06:47] LABS: ALBUMIN 2.5 g/dl (3.4-5.0); ALK PHOS 205 U/L (45-117); ANION GAP 15 (8-16); BILIRUBIN,DIRECT 0.2 mg/dL (0.0-0.2); BILIRUBIN,TOTAL 0.8 mg/dL (0.2-1.0); CALCIUM 7.3 mg/dL (8.5-10.1); CO2 19 mmol/L (21-32); CREATININE 1.7 mg/dL (0.7-1.3); GLUCOSE,RANDOM 156 mg/dL (74-106); SGOT/AST 45 U/L (15-37); SGPT/ALT 21 U/L (12-78); TOT PROT 6.1 g/dl (6.4-8.2)
[2017-09-22] MEDS ORDERED: FOLIC ACID INJECTION - 1 MG, THIAMINE HCL 100 MG, MULTIVIT INJECTION ADULT 10 ML in SOD... IVPB ONE ×2 (06:55→16:13)
[2017-09-22 06:58] LABS: PLATELET COMMENT2 NO CLOTTING DETECTED; PLATELET COMMENT3 FEW GIANT PLTS; PLATELET ESTIMATE DECREASED (NORMAL)
[2017-09-22] MEDS ORDERED: LORazepam 2 MG/ML SDV VIAL ONE (07:15)
[2017-09-22] MEDS ORDERED: PANTOPRAZOLE SODIUM 40 MG VIAL ONE (07:22)
[2017-09-22] MEDS ORDERED: morphine CARPU-JECT 10 MG/1 ML DISP.SYRIN ONE (07:22)
[2017-09-22] MEDS ORDERED: morphine CARPU-JECT 2 MG/1 ML DISP.SYRIN IVPUSH ONE (07:28)
[2017-09-22] MEDS ORDERED: HYOSCYAMINE SULFATE 0.125 MG *ODT PO ONE (07:29)
[2017-09-22] MEDS ORDERED: PANTOPRAZOLE SODIUM 40 MG in SODIUM CHLORIDE 100 ML IVPUSH ONE (07:29)
--- NOTE | 2017-09-22 07:33 | PDOC ---
*Physical Exam - Vital Signs Last Vital Signs Temp Pulse Resp BP Pulse Ox 98.4 F 108 H 19 157/96 100 09/22/17 04:56 09/22/17 04:56 09/22/17 04:56 09/22/17 04:56 09/22/17 04:56 - Physical Exam General Appearance: Yes: Nourished, Appropriately Dressed. No: Apparent Distress Gastrointestinal/Abdominal: positive: Normal Bowel Sounds, Soft, Guarding ( epigastric), Tenderness (epigastric/ right epigastric). negative: Distended Musculoskeletal: negative: CVA Tenderness Integumentary: positive: Normal Color, Warm, Moist Neurologic: positive: Motor Strength 5/5 (ambulatory) ED Treatment Course - LABORATORY CBC & Chemistry Diagram: 09/22/17 05:45 09/22/17 05:45 - ADDITIONAL ORDERS Additional order review: Laboratory Results 09/22/17 09/22/17 09/22/17 05:45 05:45 05:45 PT with INR INR Sodium Potassium Chloride Carbon Dioxide Anion Gap BUN Creatinine Random Glucose Lactic Acid 3.5 H* Calcium Total Bilirubin Direct Bilirubin AST ALT Alkaline Phosphatase Ammonia Creatine Kinase 176 Troponin I < 0.02 Total Protein Albumin Total Amylase Lipase 573 H Alcohol, Quantitative 171.8 H* 09/22/17 09/22/17 09/22/17 05:45 05:45 05:45 PT with INR 11.30 INR 1.00 Sodium 141 Potassium 3.9 Chloride 107 Carbon Dioxide 19 L Anion Gap 15 BUN 15 D Creatinine 1.7 H D Random Glucose 156 H D Lactic Acid Calcium 7.3 L Total Bilirubin 0.8 D Direct Bilirubin 0.2 D AST 45 H D ALT 21 Alkaline Phosphatase 205 H D Ammonia 38.95 H Creatine Kinase Troponin I Total Protein 6.1 L Albumin 2.5 L Total Amylase Lipase Alcohol, Quantitative 09/22/17 05:45 PT with INR INR Sodium Potassium Chloride Carbon Dioxide Anion Gap BUN Creatinine Random Glucose Lactic Acid Calcium Total Bilirubin Direct Bilirubin AST ALT Alkaline Phosphatase Ammonia Creatine Kinase Troponin I Total Protein Albumin Total Amylase 129 H Lipase Alcohol, Quantitative 09/22/17 05:45 RBC 4.30 D MCV 79.4 L MCHC 34.7 RDW 17.7 H MPV 10.2 Neutrophils % 68.4 Lymphocytes % 22.1 D Monocytes % 6.8 Eosinophils % 1.9 Basophils % 0.8 - Medications Given in the ED: ED Medications Discontinued Medications Generic Name Dose Route Start Last Admin Trade Name Alexx PRN Reason Stop Dose Admin Famotidine/Sodium Chloride 50 mls @ 100 mls/hr 09/22/17 05:04 09/22/17 06:27 Pepcid 20 Mg Premixed Ivpb - IVPB 09/22/17 05:33 100 mls/hr ONCE ONE Administration Sodium Chloride 1,000 mls @ 1,000 mls/hr 09/22/17 05:04 09/22/17 06:27 Normal Saline - IV 09/22/17 06:03 1,000 mls/hr ASDIR STA Administration Lorazepam 1 mg 09/22/17 06:52 09/22/17 07:18 Ativan Injection - IVPUSH 09/22/17 06:53 1 mg ONCE ONE Administration Morphine Sulfate 4 mg 09/22/17 05:13 09/22/17 06:28 Morphine Injection - IVPUSH 09/22/17 05:14 4 mg ONCE ONE Administration Ondansetron HCl 4 mg 09/22/17 05:04 09/22/17 06:28 Zofran Injection IVPUSH 09/22/17 05:05 4 mg ONCE ONE Administration Pantoprazole Sodium 40 mg 09/22/17 05:04 09/22/17 06:28 Protonix Iv IVPUSH 09/22/17 05:05 40 mg ONCE ONE Administration Medical Decision Making - Medical Decision Making 09/22/17 07:31 Patient received in sign out from NINO Angulo. Patient here with abdominal pain associated nausea and vomiting. Patient is an alcoholic and states last drink was yesterday evening. After reviewing labs patient concerning for pancreatitis/ alcoholic gastritis. Patient ordered for second lactate, blood culture, coags and another liter of fluids. Patient is pending an abdominal CT. 09/22/17 07:33 Laboratory Tests 09/08/15 04/19/17 04/29/17 17:15 07:00 07:00 WBC Hgb Hct RDW Plt Count Sodium Potassium Chloride Carbon Dioxide Anion Gap BUN Creatinine 3.5 H D 1.2 D Random Glucose Lactic Acid Total Bilirubin Direct Bilirubin AST ALT Alkaline Phosphatase Ammonia Troponin I Total Amylase Lipase 542 H Alcohol, Quantitative 05/04/17 05/08/17 05/08/17 07:00 14:20 14:20 WBC Hgb Hct RDW Plt Count 81 L Sodium Potassium Chloride Carbon Dioxide 23 Anion Gap BUN Creatinine 1.1 1.3 Random Glucose 227 H Lactic Acid Total Bilirubin Direct Bilirubin AST ALT Alkaline Phosphatase Ammonia Troponin I Total Amylase Lipase Alcohol, Quantitative 09/22/17 09/22/17 09/22/17 05:45 05:45 05:45 WBC 5.8 D Hgb 11.8 D Hct 34.1 L RDW 17.7 H Plt Count 77 L Sodium 141 Potassium 3.9 Chloride 107 Carbon Dioxide 19 L Anion Gap 15 BUN 15 D Creatinine 1.7 H D Random Glucose 156 H D Lactic Acid Total Bilirubin 0.8 D Direct Bilirubin 0.2 D AST 45 H D ALT 21 Alkaline Phosphatase 205 H D Ammonia Troponin I Total Amylase 129 H Lipase Alcohol, Quantitative 09/22/17 09/22/17 09/22/17 05:45 05:45 05:45 WBC Hgb Hct RDW Plt Count Sodium Potassium Chloride Carbon Dioxide Anion Gap BUN Creatinine Random Glucose Lactic Acid Total Bilirubin Direct Bilirubin AST ALT Alkaline Phosphatase Ammonia 38.95 H Troponin I < 0.02 Total Amylase Lipase 573 H Alcohol, Quantitative 171.8 H* 09/22/17 05:45 WBC Hgb Hct RDW Plt Count Sodium Potassium Chloride Carbon Dioxide Anion Gap BUN Creatinine Random Glucose Lactic Acid 3.5 H* Total Bilirubin Direct Bilirubin AST ALT Alkaline Phosphatase Ammonia Troponin I Total Amylase Lipase Alcohol, Quantitative 09/22/17 09:05 CT compared to prior CT dated 09/08/2015 shows cystic changes in the right lower lobe but otherwise unremarkable. The liver measures 17.6 cm in craniocaudal length. The tips catheters again seen on change in position. The gallbladder is over distended measuring 9.4 x 5 cm with small intraluminal stones and without wall thickening and pericholecystic fluid free fluid. Pancreas and adrenal glands appear unremarkable. Both kidneys appear unremarkable. There is no evidence of small bowel obstruction. The appendix is normal-appearing. No evidence of acute diverticulitis. A small fat-containing umbilical hernia is present. Patient reevaluated and has no symptoms presently. Patient awaiting second lactic acid . 09/22/17 09:58 Laboratory Tests 09/22/17 09/22/17 09:15 09:15 PT with INR 12.20 H Lactic Acid 1.9 09/22/17 10:13 Patient states feeling better. Patient given a glass of ice water will reevaluate shortly. If able to tolerate I will admit to observation secondary to abdominal pain and elevated lipase/amylase. If unable to tolerate will admit to [facility]. 09/22/17 11:02 Patient tolerated water without difficulty. Awaiting callback from hospitalist. 09/22/17 11:[address] Tsai. *DC/Admit/Observation/Transfer Diagnosis at time of Disposition: Alcohol dependence, Increased lactic acid level, Intractable abdominal pain, Increased serum lipase level - Discharge Dispostion Admit: Yes
[2017-09-22 09:36] LABS: INR 1.08 (0.82-1.09); PROTHROMBIN TIME (PATIENT) 12.2 SEC (9.98-11.88)
--- NOTE | 2017-09-22 10:02 | EKG ---
Test Reason : Blood Pressure : / mmHG Vent. Rate : 085 BPM Atrial Rate : 085 BPM P-R Int : 150 ms QRS Dur : 094 ms QT Int : 410 ms P-R-T Axes : 031 025 049 degrees QTc Int : 487 ms NORMAL SINUS RHYTHM PROLONGED QT NONSPECIFIC ST ABNORMALITY WHEN COMPARED WITH ECG OF 26-APR-2017 22:43, NO SIGNIFICANT CHANGE WAS FOUND Confirmed by YOLI JONES MD ([id number]) on 09/22/2017 10:01:48 AM Referred By: Confirmed By:YOLI JONES MD
[2017-09-22] MEDS ORDERED: SODIUM CHLORIDE 1,000 ML IV ONE (11:53)
--- NOTE | 2017-09-22 12:19 | HP ---
CHIEF COMPLAINT:abdominal pain. PCP: HISTORY OF PRESENT ILLNESS: 47 yo M with pmhx of HTN, Depression, liver Cirrhosis (s/p TIPS), NIDDM, Alcohol dependence currently in treatment at [facility], presents to ED with 3 day history of abdominal pain. He describes 9/10 constant generalized abdominal pain that is worse with eating and vomiting. HE states that he also been vomiting non-bloody non-billous x5/day. Patient reports he is unable to consume liquids or solids due to vomiting. Denies CP,SAMUELS, SOB, palpitation, fever or chills. ER course was notable for: (1)Zofran for nausea. (2)Elevated Lipase (3)CT shows no evidence of pancreatitis or cholecysitits. Recent Travel: PAST MEDICAL HISTORY: HTN, Depression, Hep B w/ liver Cirrhosis, NIDDM, Alcohol dependence PAST SURGICAL HISTORY: Social History: [place] /day Alcohol:3 beers /day Drugs: denies Family History: Allergies shellfish derived Allergy (Severe, Verified 09/22/17 05:02) Swelling No Known Drug Allergies Allergy (Verified 09/22/17 05:02) NKDA Allergy (Uncoded 09/22/17 05:02) HOME MEDICATIONS: Home Medications Medication Instructions Recorded Escitalopram Oxalate [Lexapro -] 20 mg PO DAILY 04/28/17 Quetiapine Fumarate [Seroquel] 100 mg PO HS 04/28/17 Amlodipine Besylate [Norvasc -] 10 mg PO DAILY #30 tab 05/11/17 Fluoxetine HCl [Prozac -] 20 mg PO DAILY #30 tab 05/11/17 Lisinopril 10 mg PO DAILY #30 tab 05/11/17 REVIEW OF SYSTEMS CONSTITUTIONAL: Absent: fever, chills, diaphoresis, generalized weakness, malaise, loss of appetite, weight change HEENT: Absent: rhinorrhea, nasal congestion, throat pain, throat swelling, difficulty swallowing, mouth swelling, ear pain, eye pain, visual changes CARDIOVASCULAR: Absent: chest pain, syncope, palpitations, irregular heart rate, lightheadedness , peripheral edema RESPIRATORY: Absent: cough, shortness of breath, dyspnea with exertion, orthopnea, wheezing, stridor, hemoptysis GASTROINTESTINAL:abdominal pain, nausea, vomiting, Absent: , abdominal distension, diarrhea, constipation, melena, hematochezia GENITOURINARY: Absent: dysuria, frequency, urgency, hesitancy, hematuria, flank pain, genital pain MUSCULOSKELETAL: Absent: myalgia, arthralgia, joint swelling, back pain, neck pain SKIN: Absent: rash, itching, pallor HEMATOLOGIC/IMMUNOLOGIC: Absent: easy bleeding, easy bruising, lymphadenopathy, frequent infections ENDOCRINE: Absent: unexplained weight gain, unexplained weight loss, heat intolerance, cold intolerance NEUROLOGIC: Absent: headache, focal weakness or paresthesias, dizziness, unsteady gait, seizure, mental status changes, bladder or bowel incontinence PSYCHIATRIC: Absent: anxiety, depression, suicidal or homicidal ideation, hallucinations. PHYSICAL EXAMINATION GENERAL: AAOx3, moderate distress. HEAD: NC/AT EYES: PERRLA,EOMI sclera anicteric, conjunctiva clear. No lid lag. EARS, NOSE, THROAT:dry mucous membranes. NECK: supple without lymphadenopathy, JVD, or masses. LUNGS: Breath sounds equal, clear to auscultation bilaterally. No wheezes, and no crackles. No accessory muscle use. HEART: Regular rate and rhythm, normal S1 and S2 without murmur, rub or gallop. ABDOMEN: Soft, generalized tenderness, not distended, normoactive bowel sounds, voluntary guarding, no rebound, no masses. MUSCULOSKELETAL: Normal range of motion at all joints. No bony deformities or tenderness. No CVA tenderness. UPPER EXTREMITIES: 2+ pulses, warm, well-perfused. No cyanosis. No clubbing. No peripheral edema. LOWER EXTREMITIES: 2+ pulses, warm, well-perfused. No calf tenderness. No peripheral edema. NEUROLOGICAL: Cranial nerves II-XII intact. Normal speech. ASSESSMENT/PLAN: 47yo Male patient w/ PmHx: HTN, Depression,Hep B w/ liver Cirrhosis, NIDDM, Alcohol dependence will be placed on observation with intractable abdominal pain. Problem List - Problem (1) Intractable abdominal pain Assessment/Plan: * May represent acute pancreatitis given elevated lipase , but also could be gastroenteritis. * Zofran for nausea * Morphine for pain 2mg IV Q4H * GI consult * Repeat lactic acid and lipase in AM (2) Elevated lactic acid level Assessment/Plan: * Given IVF and repeat showed resolution. (3) Elevated lipase (4) Hypertension Assessment/Plan: * Continue: * Amlodipine Besylate [Norvasc -] 10 mg PO DAILY #30 tab * Lisinopril 10 mg PO DAILY #30 tab (5) Alcohol-induced mood disorder Assessment/Plan: * Escitalopram Oxalate (Lexapro -) 20 mg PO DAILY * Fluoxetine HCl (Prozac -) 20 mg PO DAILY * Quetiapine Fumarate (Seroquel -) 100 mg PO HS Visit type - Emergency Visit Emergency Visit: Yes ED Registration Date: 09/22/17 Care time: The patient presented to the Emergency Department on the above date and was hospitalized for further evaluation of their emergent condition. - New Patient This patient is new to me today: Yes Date on this admission: 09/22/17 - Critical Care Critical Care patient: No
--- NOTE | 2017-09-22 15:09 | PN ---
Teaching Attending Note Name of Resident: Oliver Alvarado ATTENDING PHYSICIAN STATEMENT I saw and evaluated the patient. I reviewed the resident's note and discussed the case with the resident. I agree with the resident's findings and plan as documented. SUBJECTIVE: OBJECTIVE: Vital Signs Period Temp Pulse Resp BP Sys/[place]orton Pulse Ox Last 24 Hr 97.7 F-98.6 F 78-108 19-20 157-164/67-96 98-100 Home Medications Medication Instructions Recorded Escitalopram Oxalate [Lexapro -] 20 mg PO DAILY 04/28/17 Quetiapine Fumarate [Seroquel] 100 mg PO HS 04/28/17 Amlodipine Besylate [Norvasc -] 10 mg PO DAILY #30 tab 05/11/17 Fluoxetine HCl [Prozac -] 20 mg PO DAILY #30 tab 05/11/17 Lisinopril 10 mg PO DAILY #30 tab 05/11/17 Current Medications Generic Name Dose Route Start Last Admin Trade Name Freq PRN Reason Stop Dose Admin Amlodipine Besylate 10 mg 09/23/17 10:00 Norvasc - PO DAILY DEV Escitalopram Oxalate 20 mg 09/23/17 10:00 Lexapro - PO DAILY DEV Fluoxetine HCl 20 mg 09/23/17 10:00 Prozac - PO DAILY DEV Heparin Sodium (Porcine) 5,000 unit 09/22/17 14:00 Heparin - SQ TID DEV Sodium Chloride 1,000 mls @ 100 mls/hr 09/22/17 14:00 Normal Saline - IV ASDIR DEV Insulin Aspart 1 vial 09/22/17 16:30 Novolog Vial Sliding Scale - SQ ACHS DEV Protocol Lisinopril 10 mg 09/23/17 10:00 Prinivil PO DAILY DEV Morphine Sulfate 2 mg 09/22/17 11:53 Morphine Sulfate IVPUSH Q4H PRN PAIN Quetiapine Fumarate 100 mg 09/22/17 22:00 Seroquel - PO HS [facility] ASSESSMENT AND PLAN:
--- NOTE | 2017-09-22 15:45 | CON.GI ---
Consult Consult Specialty:: GI Referred by:: Service - History of Present Illness History of Present Illness: Chart, H&P, ED records reviewed. 47 yom HTN, Depression, liver Cirrhosis/TIPS, NIDDM, Alcohol abuse, ETOH level as measured on this admission 175.8. A CT a/p w/o distended GB w/o cholycystitis , normal CBD, pancreas, cirrhotic liver, TIPS. Total Bilirubin 0.8 mg/dL (0.2-1.0) D 09/22/17 05:45 Direct Bilirubin 0.2 mg/dL (0.0-0.2) D 09/22/17 05:45 AST 45 U/L (15-37) H D 09/22/17 05:45 ALT 21 U/L (12-78) 09/22/17 05:45 Alkaline Phosphatase 205 U/L (45-117) H D 09/22/17 05:45 Albumin 2.5 g/dl (3.4-5.0) L 09/22/17 05:45 - Past Medical History Cardio/Vascular: Yes: HTN, Hyperlipdemia Hepatobiliary: Yes: Cirrhosis Renal/: Yes: Hematuria. No: Renal Calculi, UTI Endocrine: Yes: Diabetes Mellitus - Alcohol/Substance Use Hx Alcohol Use: No - Smoking History Smoking history: Former smoker Have you smoked in the past 12 months: No Aproximately how many cigarettes per day: 1 If you are a former smoker, when did you quit?: 2010 Home Medications - Allergies Allergies/Adverse Reactions: Allergies Allergy/AdvReac Type Severity Reaction Status Date / Time shellfish derived Allergy Severe Swelling Verified 09/22/17 05:02 No Known Drug Allergies Allergy Verified 09/22/17 05:02 NKDA Allergy Uncoded 09/22/17 05:02 - Home Medications Home Medications: Ambulatory Orders Escitalopram Oxalate [Lexapro -] 20 mg PO DAILY 04/28/17 Quetiapine Fumarate [Seroquel] 100 mg PO HS 04/28/17 Amlodipine Besylate [Norvasc -] 10 mg PO DAILY #30 tab 05/11/17 Fluoxetine HCl [Prozac -] 20 mg PO DAILY #30 tab 05/11/17 Lisinopril 10 mg PO DAILY #30 tab 05/11/17 Family Disease History - Family Disease History Family Disease History: Diabetes: Father Review of Systems - Review of Systems Constitutional: reports: Chills, Malaise. denies: Loss of Appetite, Night Sweats, Unintentional Wgt. Loss, Weakness HENT: denies: Difficult Swallowing Cardiovascular: denies: Chest Pain Respiratory: reports: Cough Gastrointestinal: reports: Abdominal Pain (see hpi), Diarrhea, Vomiting. denies : Dysphagia, Melena, Rectal Bleeding, Vomiting Blood Genitourinary: reports: No Symptoms Breasts: reports: No Symptoms Reported Musculoskeletal: reports: No Symptoms Integumentary: reports: No Symptoms Neurological: reports: Tremors Psychiatric: reports: Anxiety, Depression Physical Exam-GI Vital Signs: Vital Signs Temperature 97.7 F 09/22/17 13:00 Pulse Rate 78 09/22/17 13:00 Respiratory Rate 20 09/22/17 13:00 Blood Pressure 164/92 09/22/17 13:00 O2 Sat by Pulse Oximetry (%) 98 09/22/17 13:00 Vital Signs (72 hours) 09/22/17 09/22/17 09/22/17 04:56 05:05 07:59 Temperature 98.4 F 98.6 F Pulse Rate 108 H Pulse Rate [ 98 H Right] Respiratory 19 20 Rate Blood Pressure 157/96 Blood Pressure 159/67 [Left Arm] O2 Sat by Pulse 100 100 100 Oximetry (%) 09/22/17 09/22/17 13:00 16:07 Temperature 97.7 F 97.9 F Pulse Rate 87 Pulse Rate [ 78 Right] Respiratory 20 20 Rate Blood Pressure 188/89 Blood Pressure 164/92 [Left Arm] O2 Sat by Pulse 98 98 Oximetry (%) Constitutional: Yes: Well Nourished, Anxious, Mild Distress, Pallor Eyes: Yes: Conjunctiva Clear. No: Sclera Icterus HENT: Yes: Atraumatic Neck: Yes: Supple Cardiovascular: Yes: Regular Rate and Rhythm. No: Tachycardia Respiratory: Yes: Regular Gastrointestinal Inspection: Yes: Other (vomiting). No: Ascites, Distention ...Palpate: Yes: Soft, Tenderness. No: Firm/Rigid, Mass, Pulsatile Mass ...Percussion: No: Fluid Wave Neurological: Yes: Alert, Oriented, Tremors Labs: INR, PTT INR 1.08 (0.82-1.09) 09/22/17 09:15 Laboratory Tests 09/22/17 09/22/17 09/22/17 05:45 05:45 05:45 WBC 5.8 D RBC 4.30 D Hgb 11.8 D Hct 34.1 L MCV 79.4 L MCH 27.6 MCHC 34.7 RDW 17.7 H Plt Count 77 L MPV 10.2 Neutrophils % 68.4 Lymphocytes % 22.1 D Monocytes % 6.8 Eosinophils % 1.9 Basophils % 0.8 Platelet Estimate Decreased Platelet Comment No clotting detected PT with INR 11.30 INR 1.00 Sodium Potassium Chloride Carbon Dioxide Anion Gap BUN Creatinine Random Glucose Lactic Acid Calcium Total Bilirubin Direct Bilirubin AST ALT Alkaline Phosphatase Ammonia Creatine Kinase Creatine Kinase Index CK-MB (CK-2) Troponin I Total Protein Albumin Total Amylase 129 H Lipase Alcohol, Quantitative 09/22/17 09/22/17 09/22/17 05:45 05:45 05:45 WBC RBC Hgb Hct MCV MCH MCHC RDW Plt Count MPV Neutrophils % Lymphocytes % Monocytes % Eosinophils % Basophils % Platelet Estimate Platelet Comment PT with INR INR Sodium 141 Potassium 3.9 Chloride 107 Carbon Dioxide 19 L Anion Gap 15 BUN 15 D Creatinine 1.7 H D Random Glucose 156 H D Lactic Acid Calcium 7.3 L Total Bilirubin 0.8 D Direct Bilirubin 0.2 D AST 45 H D ALT 21 Alkaline Phosphatase 205 H D Ammonia 38.95 H Creatine Kinase 176 Creatine Kinase Index 0.8 CK-MB (CK-2) 1.574 Troponin I < 0.02 Total Protein 6.1 L Albumin 2.5 L Total Amylase Lipase 573 H Alcohol, Quantitative 09/22/17 09/22/17 09/22/17 05:45 05:45 09:15 WBC RBC Hgb Hct MCV MCH MCHC RDW Plt Count MPV Neutrophils % Lymphocytes % Monocytes % Eosinophils % Basophils % Platelet Estimate Platelet Comment PT with INR 12.20 H INR 1.08 Sodium Potassium Chloride Carbon Dioxide Anion Gap BUN Creatinine Random Glucose Lactic Acid 3.5 H* Calcium Total Bilirubin Direct Bilirubin AST ALT Alkaline Phosphatase Ammonia Creatine Kinase Creatine Kinase Index CK-MB (CK-2) Troponin I Total Protein Albumin Total Amylase Lipase Alcohol, Quantitative 171.8 H* 09/22/17 09:15 WBC RBC Hgb Hct MCV MCH MCHC RDW Plt Count MPV Neutrophils % Lymphocytes % Monocytes % Eosinophils % Basophils % Platelet Estimate Platelet Comment PT with INR INR Sodium Potassium Chloride Carbon Dioxide Anion Gap BUN Creatinine Random Glucose Lactic Acid 1.9 Calcium Total Bilirubin Direct Bilirubin AST ALT Alkaline Phosphatase Ammonia Creatine Kinase Creatine Kinase Index CK-MB (CK-2) Troponin I Total Protein Albumin Total Amylase Lipase Alcohol, Quantitative Imaging - Results Cat Scan: Report Reviewed Problem List - Problems (1) Cholelithiasis Code(s): K80.20 - CALCULUS OF GALLBLADDER W/O CHOLECYSTITIS W/O OBSTRUCTION (2) Elevated lactic acid level Code(s): R79.89 - OTHER SPECIFIED ABNORMAL FINDINGS OF BLOOD CHEMISTRY (3) Elevated lipase Code(s): R74.8 - ABNORMAL LEVELS OF OTHER SERUM ENZYMES (4) Alcohol dependence Code(s): F10.20 - ALCOHOL DEPENDENCE, UNCOMPLICATED (5) Alcohol intoxication Code(s): F10.129 - ALCOHOL ABUSE WITH INTOXICATION, UNSPECIFIED Qualifiers: Complication of substance-induced condition: uncomplicated Qualified Code(s): F10.920 - Alcohol use, unspecified with intoxication, uncomplicated; F10.920 - Alcohol use, unspecified with intoxication, uncomplicated; F10.920 - Alcohol use, unspecified with intoxication, uncomplicated (6) Cirrhosis and chronic liver disease Code(s): K74.60 - UNSPECIFIED CIRRHOSIS OF LIVER K76.9 - LIVER DISEASE, UNSPECIFIED (7) Pancreatitis Code(s): K85.90 - ACUTE PANCREATITIS WITHOUT NECROSIS OR INFECTION, UNSP (8) Pancreatitis, alcoholic, acute Code(s): K85.20 - ALCOHOL INDUCED ACUTE PANCREATITIS WITHOUT NECROSIS OR INFCT Assessment/Plan Acute, alcohol-induced pancreatitis, Alcohol daily for the last 7 days. Liver cirrhosis/TIPS Closely monitor for DT IVF 500 cc/hr monitor BP, output, pain management, antiemetics, NPO PPI IV for now (vomiting) Banana Bag, Ativan 2 mg q6h x 4 Detox/substance abuse consult/follow up EGD on Monday to evaluate for alcoholic gastritis (d/w patient) Tgc level, daily labs incl hepatic panel and lipase
[2017-09-22] MEDS: HEPARIN NA (PORCINE) 5,000 UNITS/ML 1ML VIAL SQ SCH ×2 (16:04→22:10)
[2017-09-22] MEDS: SODIUM CHLORIDE 1,000 ML IV SCH ×2 (16:04→23:30)
[2017-09-22] MEDS ORDERED: SODIUM CHLORIDE 1,000 ML IV SCH (16:23)
[2017-09-22] MEDS ORDERED: FLU VACCINE QUAD 60 MCG/0.5 ML (MDV 17-18) IM ONE (16:33)
[2017-09-22] MEDS ORDERED: ONDANSETRON 4 MG/2 ML VIAL IVPB PRN (16:51)
[2017-09-22 17:01] LABS: URINE APPEARANCE SLCLOUDY; URINE BILIRUBIN NEGATIVE (NEGATIVE); URINE BLOOD 3+ (NEGATIVE); URINE COLOR YELLOW; URINE GLUCOSE (UA) NEGATIVE (NEGATIVE); URINE KETONE NEGATIVE (NEGATIVE); URINE NITRITE NEGATIVE (NEGATIVE); URINE UROBILINOGEN NEGATIVE mg/dL (0.2-1.0)
[2017-09-22] MEDS: INSULIN SLIDING SCALE (NOVOLOG) 1 VIAL SQ SCH ×2 (17:07→22:10)
[2017-09-22 17:08] LABS: URINE PROTEIN 3+ (NEGATIVE)
[2017-09-22] MEDS: PANTOPRAZOLE SODIUM 40 MG VIAL IVPUSH SCH (17:08)
[2017-09-22 17:16] LABS: GRANULAR CASTS 8 /lpf; URINE HYALINE CAST 19 /lpf; URINE MUCUS RARE; URINE RBC 4 /hpf (0-3); URINE WBC 8 /hpf (3-5)
[2017-09-22] MEDS: LORazepam 2 MG/ML SDV VIAL IVPUSH SCH ×2 (18:05→22:10)
[2017-09-22 18:32] LABS: URINE MARIJUANA THC NEGATIVE ng/ml (CUTOFF=50)
[2017-09-22 19:14] LABS: URINE LEUK ESTERASE Negative (NEGATIVE)
[2017-09-22] MEDS ORDERED: PT OWN MED DRAWER 7, Y5N ONE (21:58)
[2017-09-22] MEDS: QUEtiapine FUMARATE 100 MG TABLET (FP) PO SCH (22:10)
[2017-09-23] MEDS: LORazepam 2 MG/ML SDV VIAL IVPUSH SCH ×4 (03:55→21:31)
[2017-09-23] MEDS: morphine CARPU-JECT 8 MG/1 ML DISP.SYRIN IVPUSH PRN ×3 (05:42→22:45)
[2017-09-23] MEDS: HEPARIN NA (PORCINE) 5,000 UNITS/ML 1ML VIAL SQ SCH ×2 (05:42→13:50)
[2017-09-23 06:40] LABS: MCH 27.2 pg (25.7-33.7); MCHC 33.6 g/dl (32.0-35.9); MEAN CELL VOLUME 80.9 fl (80-96); MEAN PLT VOLUME 10.6 fl (7.5-11.1); RDW 17.8 % (11.9-15.9)
[2017-09-23] MEDS: INSULIN SLIDING SCALE (NOVOLOG) 1 VIAL SQ SCH ×4 (06:42→21:35)
[2017-09-23 06:57] LABS: ALBUMIN 1.9 g/dl (3.4-5.0); AMYLASE 69 U/L (25-115); ANION GAP 7 (8-16); BILIRUBIN,TOTAL 0.9 mg/dL (0.2-1.0); CHOLESTEROL 162 mg/dL (50-200); CO2 22 mmol/L (21-32); CREATININE 1.5 mg/dL (0.7-1.3); GLUCOSE,RANDOM 78 mg/dL (74-106); MAGNESIUM 1.5 mg/dL (1.8-2.4); PHOSPHOROUS 3.2 mg/dL (2.5-4.9); SGOT/AST 31 U/L (15-37); SGPT/ALT 14 U/L (12-78); TOT PROT 4.5 g/dl (6.4-8.2)
[2017-09-23 06:58] LABS: ALK PHOS 126 U/L (45-117)
[2017-09-23 07:03] LABS: CALCIUM 6.4 mg/dL (8.5-10.1)
[2017-09-23 07:06] LABS: PLATELET COUNT 34 K/MM3 (134-434); WHITE BLOOD COUNT 1.8 K/mm3 (4.0-10.0)
[2017-09-23 07:22] LABS: ALBUMIN 1.8 g/dl (3.4-5.0); BILIRUBIN,DIRECT 0.3 mg/dL (0.0-0.2); BILIRUBIN,TOTAL 0.8 mg/dL (0.2-1.0); TOT PROT 4.5 g/dl (6.4-8.2)
[2017-09-23 08:15] LABS: PLATELET ESTIMATE DECREASED (NORMAL); TOTAL CELLS COUNTED 100
[2017-09-23 08:49] LABS: BASOPHIL 0.6 % (0-2.0); EOSINOPHIL 5.1 % (0-4.5); MCH 27.2 pg (25.7-33.7); MCHC 33.8 g/dl (32.0-35.9); MEAN CELL VOLUME 80.6 fl (80-96); MEAN PLT VOLUME 10.9 fl (7.5-11.1); NEUTROPHILS 47.7 % (42.8-82.8); RDW 17.6 % (11.9-15.9)
[2017-09-23 08:55] LABS: WHITE BLOOD COUNT 1.8 K/mm3 (4.0-10.0)
[2017-09-23 08:56] LABS: PLATELET COUNT 33 K/MM3 (134-434)
[2017-09-23 09:17] LABS: ALBUMIN 1.9 g/dl (3.4-5.0); ALK PHOS 119 U/L (45-117); ANION GAP 10 (8-16); BILIRUBIN,DIRECT 0.3 mg/dL (0.0-0.2); BILIRUBIN,TOTAL 0.9 mg/dL (0.2-1.0); CO2 20 mmol/L (21-32); CREATININE 1.3 mg/dL (0.7-1.3); GLUCOSE,RANDOM 73 mg/dL (74-106); MAGNESIUM 1.5 mg/dL (1.8-2.4); PHOSPHOROUS 3.2 mg/dL (2.5-4.9); SGOT/AST 29 U/L (15-37); SGPT/ALT 13 U/L (12-78); TOT PROT 4.4 g/dl (6.4-8.2)
[2017-09-23 09:35] LABS: CALCIUM 6.5 mg/dL (8.5-10.1)
[2017-09-23] MEDS ORDERED: PT OWN MED DRAWER 7, Y5N ONE ×2 (10:13→21:15)
[2017-09-23] MEDS ORDERED: ESCITALOPRAM OXALATE 10 MG TABLET (FP) ONE (10:13)
[2017-09-23] MEDS: amLODIPine BESYLATE 10 MG TABLET (FP) PO SCH (10:27)
[2017-09-23] MEDS: PANTOPRAZOLE SODIUM 40 MG VIAL IVPUSH SCH (10:27)
[2017-09-23] MEDS: LISINOPRIL 10 MG TABLET (FP) PO SCH (10:28)
[2017-09-23] MEDS: ESCITALOPRAM OXALATE 20 MG TABLET (FP) PO SCH (10:28)
[2017-09-23] MEDS: FLUoxetine HCL 20 MG CAPSULE (FP) PO SCH (10:28)
--- NOTE | 2017-09-23 13:07 | PN ---
Physical Exam: SUBJECTIVE: Patient seen and examined. He reports feeling better, no further vomiting, nausea. He would like to eat. Events: - Hypertensive overnight OBJECTIVE: Vital Signs Period Temp Pulse Resp BP Sys/Horton Pulse Ox Last 24 Hr 98 F-98.2 F 86-95 16-20 151-179/92-94 98-98 PE Neuro: alert,awake, cn 2-12intact, + tongue fasiculations, upper ext mild tremor Pulm: CTAB CV: s1 s2 rrr no mrg Abd: epigastric tenderness right diffuse to left, soft Ext: warm,no le edema skin: r dorsal foot open wound Laboratory Results - last 24 hr 09/22/17 09/23/17 09/23/17 22:09 05:55 05:55 WBC 1.8 L* D RBC 3.17 L D Hgb 8.6 L D Hct 25.6 L D MCV 80.9 MCH 27.2 MCHC 33.6 RDW 17.8 H Plt Count 34 L* D MPV 10.6 Total Counted 100 Neutrophils % No Result Required. Neutrophils % (Manual) 48 Band Neuts % (Manual) 2 Lymphocytes % No Result Required. Lymphocytes % (Manual) 36 Monocytes % Monocytes % (Manual) 10 Eosinophils % Eosinophils % (Manual) 4 Basophils % Platelet Estimate Decreased Platelet Comment No clumping noted Sodium 143 Potassium 4.3 Chloride 114 H Carbon Dioxide 22 Anion Gap 7 L BUN 14 Creatinine 1.5 H Creat Clearance w eGFR 50.61 POC Glucometer 96 Random Glucose 78 D Lactic Acid Calcium 6.4 L* Phosphorus 3.2 D Magnesium 1.5 L D Total Bilirubin 0.9 Direct Bilirubin AST 31 D ALT 14 D Alkaline Phosphatase 126 H D Total Protein 4.5 L D Albumin 1.9 L D Cholesterol 162 Total Amylase 69 D Lipase 410 H 09/23/17 09/23/17 09/23/17 05:55 06:42 07:30 WBC 1.8 L* RBC 3.15 L Hgb 8.6 L Hct 25.4 L MCV 80.6 MCH 27.2 MCHC 33.8 RDW 17.6 H Plt Count 33 L* MPV 10.9 Total Counted Neutrophils % 47.7 D Neutrophils % (Manual) Band Neuts % (Manual) Lymphocytes % 34.7 D Lymphocytes % (Manual) Monocytes % 11.9 H Monocytes % (Manual) Eosinophils % 5.1 H D Eosinophils % (Manual) Basophils % 0.6 Platelet Estimate Platelet Comment Sodium Potassium Chloride Carbon Dioxide Anion Gap BUN Creatinine Creat Clearance w eGFR POC Glucometer 72 Random Glucose Lactic Acid Calcium Phosphorus Magnesium Total Bilirubin 0.8 Direct Bilirubin 0.3 H D AST 30 ALT 14 Alkaline Phosphatase 126 H Total Protein 4.5 L Albumin 1.8 L Cholesterol Total Amylase Lipase 09/23/17 09/23/17 09/23/17 07:30 07:30 11:50 WBC RBC Hgb Hct MCV MCH MCHC RDW Plt Count MPV Total Counted Neutrophils % Neutrophils % (Manual) Band Neuts % (Manual) Lymphocytes % Lymphocytes % (Manual) Monocytes % Monocytes % (Manual) Eosinophils % Eosinophils % (Manual) Basophils % Platelet Estimate Platelet Comment Sodium 143 Potassium 4.1 Chloride 113 H Carbon Dioxide 20 L Anion Gap 10 BUN 14 Creatinine 1.3 Creat Clearance w eGFR POC Glucometer 85 Random Glucose 73 L Lactic Acid 0.6 Calcium 6.5 L* Phosphorus 3.2 Magnesium 1.5 L Total Bilirubin 0.9 Direct Bilirubin 0.3 H AST 29 ALT 13 Alkaline Phosphatase 119 H Total Protein 4.4 L Albumin 1.9 L Cholesterol Total Amylase Lipase Active Medications Generic Name Dose Route Start Last Admin Trade Name Freq PRN Reason Stop Dose Admin Amlodipine Besylate 10 mg 09/23/17 10:00 09/23/17 10:27 Norvasc - PO 10 mg DAILY DEV Administration Escitalopram Oxalate 20 mg 09/23/17 10:00 09/23/17 10:28 Lexapro - PO 20 mg DAILY DEV Administration Fluoxetine HCl 20 mg 09/23/17 10:00 09/23/17 10:28 Prozac - PO 20 mg DAILY DEV Administration Heparin Sodium (Porcine) 5,000 unit 09/22/17 14:00 09/23/17 05:42 Heparin - SQ 5,000 unit TID DEV Administration Sodium Chloride 1,000 mls @ 100 mls/hr 09/22/17 14:00 09/22/17 23:30 Normal Saline - IV 100 mls/hr ASDIR DEV Administration Sodium Chloride 1,000 mls @ 500 mls/hr 09/22/17 16:23 09/22/17 17:07 Normal Saline - IV 500 mls/hr ASDIR DEV Administration Insulin Aspart 1 vial 09/22/17 16:30 09/23/17 12:16 Novolog Vial Sliding Scale - SQ Not Given ACHS DEV Protocol Lisinopril 10 mg 09/23/17 10:00 09/23/17 10:28 Prinivil PO 10 mg DAILY DEV Administration Lorazepam 2 mg 09/22/17 18:00 09/23/17 10:24 Ativan Injection - IVPUSH Not Given Q6H-IV DEV Magnesium Sulfate 2 gm 09/23/17 13:30 Magnesium Sulfate IVPB 09/23/17 13:31 ONCE ONE Morphine Sulfate 2 mg 09/22/17 11:53 09/23/17 05:42 Morphine Sulfate IVPUSH 2 mg Q4H PRN Administration PAIN Ondansetron HCl 8 mg 09/22/17 16:51 Zofran Injection IVPB Q6H PRN NAUSEA Pantoprazole Sodium 40 mg 09/22/17 16:30 09/23/17 10:27 Protonix Iv IVPUSH 40 mg DAILY DEV Administration Quetiapine Fumarate 100 mg 09/22/17 22:00 09/22/17 22:10 Seroquel - PO 100 mg HS DEV Administration Assessment: 47 year old male with pmhx of HTN, Depression, liver Cirrhosis (s/ p TIPS), NIDDM, Alcohol dependence transferred from [facility],admitted with 3 day history of abdominal pain. Plan: 1. Acute Alcoholic pancreatitis - Continue IVF - Advance to clears - EGD monday - Lipid panel noted 2. Elevated lactic acid - Resolved, continue IVF - Can hold for HTN pt drinking PO 3. ETOH abuse, detox - Continue Ativan detox - Pt does not want rehab 4. Cholelithiasis - Without cholecystitis 5. Cirrhosis - s/p TIPS - ppi 6. HTN - Resume home lisinopril, norvasc 7. DM II - ISS, BGM ACHS 8. Depression - Seroquel, prozac, lexapro 9. Hypomagnesemia - Replete 2gm mg IV x1 Visit type - Emergency Visit Emergency Visit: Yes ED Registration Date: 09/22/17 Care time: The patient presented to the Emergency Department on the above date and was hospitalized for further evaluation of their emergent condition. - New Patient This patient is new to me today: Yes Date on this admission: 09/23/17 - Critical Care Critical Care patient: No
[2017-09-23] MEDS ORDERED: MAGNESIUM SULF 50% (8.12 MEQ/2 ML-1 GM VIAL) IVPB ONE (13:30)
[2017-09-23] MEDS ORDERED: ONDANSETRON 4 MG/2 ML VIAL IVPB PRN (16:06)
--- NOTE | 2017-09-23 16:06 | PN ---
GI Progress Note Subjective: Covering for Dr. Freeman Asked to evaluate patient by nurse No abdominal pain and states that he is hungry Did not receive 500ccNS / hr as he has been hypertensive No acute events overnight - Objective Vital Signs: Vital Signs Temperature 98 F 09/23/17 10:00 Pulse Rate 95 H 09/23/17 10:00 Respiratory Rate 18 09/23/17 10:00 Blood Pressure 165/93 09/23/17 10:00 O2 Sat by Pulse Oximetry (%) 98 09/23/17 05:00 Constitutional: Calm Eyes: No: Sclera Icterus Cardiovascular: Yes: Regular Rate and Rhythm Respiratory: Yes: CTA Bilaterally ...Auscultate: Yes: Normoactive Bowel Sounds ...Palpate: No: Hepatomegaly, Splenomegaly, Tenderness ...Percussion: No: Tympanitic Edema: No Neurological: Yes: Alert, Oriented. No: Asterixis Labs: CBC, BMP 09/23/17 07:30 09/23/17 07:30 INR, PTT INR 1.08 (0.82-1.09) 09/22/17 09:15 Problem List - Problems (1) Pancreatitis Assessment/Plan: Currently denies abdominal pain Advancing diet to clears. If tolerates, advance to low fat low Na diet Decreased IV fluids to 150cc/hr Code(s): K85.90 - ACUTE PANCREATITIS WITHOUT NECROSIS OR INFECTION, UNSP
[2017-09-23] MEDS ORDERED: SODIUM CHLORIDE 1,000 ML IV SCH (16:15)
[2017-09-23] MEDS ORDERED: LORazepam 2 MG/ML SDV VIAL IVPUSH SCH (16:15)
[2017-09-23] MEDS ORDERED: CALCIUM CARBONATE 650 MG TABLET PO SCH (16:45)
[2017-09-23] MEDS: CALCIUM 500MG/VIT-D 200 UNITS COMBO TABLET (FP) PO SCH (17:22)
[2017-09-23] MEDS: QUEtiapine FUMARATE 100 MG TABLET (FP) PO SCH (21:31)
[2017-09-24] MEDS: LORazepam 2 MG/ML SDV VIAL IVPUSH SCH ×3 (02:19→15:44)
[2017-09-24] MEDS: INSULIN SLIDING SCALE (NOVOLOG) 1 VIAL SQ SCH ×4 (06:09→21:57)
[2017-09-24] MEDS: SODIUM CHLORIDE 1,000 ML IV SCH (06:10)
[2017-09-24 08:43] LABS: MCH 27.6 pg (25.7-33.7); MCHC 34.1 g/dl (32.0-35.9); MEAN CELL VOLUME 80.8 fl (80-96); RDW 17.8 % (11.9-15.9)
[2017-09-24 08:47] LABS: WHITE BLOOD COUNT 1.9 K/mm3 (4.0-10.0)
[2017-09-24 08:48] LABS: PLATELET COUNT 34 K/MM3 (134-434)
[2017-09-24 09:27] LABS: ALBUMIN 2.1 g/dl (3.4-5.0); ALK PHOS 122 U/L (45-117); ANION GAP 10 (8-16); BILIRUBIN,TOTAL 0.7 mg/dL (0.2-1.0); CALCIUM 7.1 mg/dL (8.5-10.1); CO2 20 mmol/L (21-32); CREATININE 1.2 mg/dL (0.7-1.3); GLUCOSE,RANDOM 107 mg/dL (74-106); MAGNESIUM 1.8 mg/dL (1.8-2.4); SGOT/AST 27 U/L (15-37); SGPT/ALT 14 U/L (12-78); TOT PROT 4.9 g/dl (6.4-8.2)
[2017-09-24] MEDS ORDERED: PT OWN MED DRAWER 7, Y5N ONE ×2 (09:59→21:47)
[2017-09-24] MEDS ORDERED: ESCITALOPRAM OXALATE 10 MG TABLET (FP) ONE (09:59)
[2017-09-24] MEDS: amLODIPine BESYLATE 10 MG TABLET (FP) PO SCH (10:03)
[2017-09-24] MEDS: PANTOPRAZOLE SODIUM 40 MG VIAL IVPUSH SCH (10:03)
[2017-09-24] MEDS: LISINOPRIL 10 MG TABLET (FP) PO SCH (10:03)
[2017-09-24] MEDS: ESCITALOPRAM OXALATE 20 MG TABLET (FP) PO SCH (10:03)
[2017-09-24] MEDS: FLUoxetine HCL 20 MG CAPSULE (FP) PO SCH (10:04)
[2017-09-24] MEDS: CALCIUM 500MG/VIT-D 200 UNITS COMBO TABLET (FP) PO SCH (10:04)
[2017-09-24] MEDS ORDERED: INSULIN (NOVOLOG) ASPART 100 UNITS/ML 10ML VIAL ONE (12:11)
[2017-09-24] MEDS ORDERED: LORazepam 2 MG/ML SDV VIAL IVPUSH PRN (15:35)
[2017-09-24] MEDS ORDERED: SODIUM CHLORIDE 1,000 ML IV SCH (15:36)
--- NOTE | 2017-09-24 15:51 | PN ---
Physical Exam: SUBJECTIVE: Patient seen and examined. He has some mild head and stomach pain. Tolerating clears. OBJECTIVE: Vital Signs Period Temp Pulse Resp BP Sys/Horton Pulse Ox Last 24 Hr 98.2 F-98.6 F 81-94 18-20 142-153/84-93 98-98 PE Neuro: alert,awake, cn 2-12intact, + tongue fasiculations, upper ext mild tremor Pulm: CTAB CV: s1 s2 rrr no mrg Abd: epigastric tenderness right diffuse to left, soft Ext: warm,no le edema skin: r dorsal foot open wound Laboratory Results - last 24 hr 09/24/17 09/24/17 09/24/17 07:34 07:34 12:09 WBC 1.9 L* RBC 3.30 L Hgb 9.1 L Hct 26.7 L MCV 80.8 MCH 27.6 MCHC 34.1 RDW 17.8 H Plt Count 34 L* MPV 10.0 Sodium 140 Potassium 3.8 Chloride 110 H Carbon Dioxide 20 L Anion Gap 10 BUN 13 Creatinine 1.2 Creat Clearance w eGFR > 60 POC Glucometer 197 Random Glucose 107 H D Calcium 7.1 L Magnesium 1.8 Total Bilirubin 0.7 D AST 27 ALT 14 Alkaline Phosphatase 122 H Total Protein 4.9 L Albumin 2.1 L Active Medications Generic Name Dose Route Start Last Admin Trade Name Koleq PRN Reason Stop Dose Admin Amlodipine Besylate 10 mg 09/23/17 10:00 09/24/17 10:03 Norvasc - PO 10 mg DAILY DEV Administration Calcium Carbonate/Cholecalciferol 1 tab 09/23/17 16:45 09/24/17 10:04 Os-Dennis 500+D - PO 1 tab DAILY DEV Administration Escitalopram Oxalate 20 mg 09/23/17 10:00 09/24/17 10:03 Lexapro - PO 20 mg DAILY DEV Administration Fluoxetine HCl 20 mg 09/23/17 10:00 09/24/17 10:04 Prozac - PO 20 mg DAILY DEV Administration Insulin Aspart 1 vial 09/22/17 16:30 09/24/17 12:23 Novolog Vial Sliding Scale - SQ Not Given ACHS DEV Protocol Lisinopril 10 mg 09/23/17 10:00 09/24/17 10:03 Prinivil PO 10 mg DAILY DEV Administration Lorazepam 2 mg 09/24/17 15:35 Ativan Injection - IVPUSH Q6H PRN ANXIETY Morphine Sulfate 2 mg 09/22/17 11:53 09/23/17 22:45 Morphine Sulfate IVPUSH 2 mg Q4H PRN Administration PAIN Ondansetron HCl 8 mg 09/22/17 16:51 Zofran Injection IVPB Q6H PRN NAUSEA Pantoprazole Sodium 40 mg 09/22/17 16:30 09/24/17 10:03 Protonix Iv IVPUSH 40 mg DAILY DEV Administration Quetiapine Fumarate 100 mg 09/22/17 22:00 09/23/17 21:31 Seroquel - PO 100 mg HS DEV Administration Assessment: 47 year old male with pmhx of HTN, Depression, liver Cirrhosis (s/ p TIPS), NIDDM, Alcohol dependence transferred from [facility],admitted with 3 day history of abdominal pain. Plan: 1. Acute Alcoholic pancreatitis - Improved - Stop fluids for HTN - Advance to clears - EGD monday w GI - NPO after midnight 2. Pancytopenia - Unclear, possible bone marrow suppression? - Send acute hep panel and hep c 2. Elevated lactic acid - Resolved 3. ETOH abuse, detox - Ativan PRN - Pt does not want rehab 4. Cholelithiasis - Without cholecystitis 5. Cirrhosis - s/p TIPS - PPI 6. HTN - Mildy - Resume home lisinopril, norvasc 7. DM II - ISS, BGM ACHS 8. Depression - Seroquel, prozac, lexapro 9. Hypomagnesemia - Replete 2gm mg IV x1 Visit type - Emergency Visit Emergency Visit: Yes ED Registration Date: 09/22/17 Care time: The patient presented to the Emergency Department on the above date and was hospitalized for further evaluation of their emergent condition. - New Patient This patient is new to me today: No - Critical Care Critical Care patient: No
[2017-09-24] MEDS: QUEtiapine FUMARATE 100 MG TABLET (FP) PO SCH (21:51)
[2017-09-24] MEDS: morphine CARPU-JECT 8 MG/1 ML DISP.SYRIN IVPUSH PRN (21:55)
[2017-09-25] MEDS: morphine CARPU-JECT 8 MG/1 ML DISP.SYRIN IVPUSH PRN ×2 (05:42→08:47)
[2017-09-25] MEDS: INSULIN SLIDING SCALE (NOVOLOG) 1 VIAL SQ SCH ×4 (06:51→22:15)
[2017-09-25 09:35] LABS: BASOPHIL 0.8 % (0-2.0); EOSINOPHIL 6.2 % (0-4.5); MCH 27.7 pg (25.7-33.7); MCHC 34.4 g/dl (32.0-35.9); MEAN CELL VOLUME 80.6 fl (80-96); MEAN PLT VOLUME 10.2 fl (7.5-11.1); NEUTROPHILS 55.2 % (42.8-82.8); PLATELET COUNT 40 K/MM3 (134-434); RDW 18.5 % (11.9-15.9)
--- NOTE | 2017-09-25 09:47 | PN ---
Physical Exam: SUBJECTIVE: Patient seen and examined, denies abdominal pain. OBJECTIVE: Patient reports a black tarry bowel movement this morning Platelets are 40, will order 1 unit of platelets since he may still be actively bleeding prior to EGD Abdomen soft, non distended Vital Signs Period Temp Pulse Resp BP Sys/Horton Pulse Ox Last 24 Hr 97.8 F-98.3 F 74-87 18-20 140-154/73-91 98 GENERAL: The patient is awake, alert, and fully oriented, in no acute distress. HEAD: Normal with no signs of trauma. EYES: PERRL, extraocular movements intact, sclera anicteric, conjunctiva clear. No ptosis. ENT: Ears normal, nares patent, oropharynx clear without exudates, moist mucous membranes. NECK: Trachea midline, full range of motion, supple. LUNGS: Breath sounds equal, clear to auscultation bilaterally, no wheezes, no crackles, no accessory muscle use. HEART: Regular rate and rhythm, S1, S2 without murmur, rub or gallop. ABDOMEN: Soft, nontender, nondistended, normoactive bowel sounds, no guarding, no rebound, no hepatosplenomegaly, no masses. EXTREMITIES: 2+ pulses, warm, well-perfused, no edema. NEUROLOGICAL: Cranial nerves II through XII grossly intact. Normal speech, gait not observed. PSYCH: Normal mood, normal affect. SKIN: Warm, dry, normal turgor, no rashes or lesions noted Laboratory Results - last 24 hr 09/24/17 09/24/17 09/24/17 12:09 16:51 21:50 WBC RBC Hgb Hct MCV MCH MCHC RDW Plt Count MPV Neutrophils % Lymphocytes % Monocytes % Eosinophils % Basophils % POC Glucometer 197 104 123 09/25/17 09/25/17 06:55 09:15 WBC 2.0 L RBC 3.19 L Hgb 8.9 L Hct 25.8 L MCV 80.6 MCH 27.7 MCHC 34.4 RDW 18.5 H Plt Count 40 L MPV 10.2 Neutrophils % 55.2 Lymphocytes % 26.3 D Monocytes % 11.5 H Eosinophils % 6.2 H Basophils % 0.8 POC Glucometer 108 Active Medications Generic Name Dose Route Start Last Admin Trade Name Freq PRN Reason Stop Dose Admin Amlodipine Besylate 10 mg 09/23/17 10:00 09/24/17 10:03 Norvasc - PO 10 mg DAILY DEV Administration Calcium Carbonate/Cholecalciferol 1 tab 09/23/17 16:45 09/24/17 10:04 Os-Dennis 500+D - PO 1 tab DAILY DEV Administration Escitalopram Oxalate 20 mg 09/23/17 10:00 09/24/17 10:03 Lexapro - PO 20 mg DAILY DEV Administration Fluoxetine HCl 20 mg 09/23/17 10:00 09/24/17 10:04 Prozac - PO 20 mg DAILY DEV Administration Insulin Aspart 1 vial 09/22/17 16:30 09/25/17 06:51 Novolog Vial Sliding Scale - SQ Not Given ACHS [facility] Protocol Lisinopril 10 mg 09/23/17 10:00 09/24/17 10:03 Prinivil PO 10 mg DAILY DEV Administration Lorazepam 2 mg 09/24/17 15:35 09/25/17 02:26 Ativan Injection - IVPUSH 2 mg Q6H PRN Administration ANXIETY Morphine Sulfate 2 mg 09/22/17 11:53 09/25/17 08:47 Morphine Sulfate IVPUSH 2 mg Q4H PRN Administration PAIN Ondansetron HCl 8 mg 09/22/17 16:51 Zofran Injection IVPB Q6H PRN NAUSEA Pantoprazole Sodium 40 mg 09/22/17 16:30 09/24/17 10:03 Protonix Iv IVPUSH 40 mg DAILY DEV Administration Quetiapine Fumarate 100 mg 09/22/17 22:00 09/24/17 21:51 Seroquel - PO 100 mg HS DEV Administration ASSESSMENT/PLAN: Patient is a 47 year old male with a past medical history of hypertension, depression, liver cirrhosis (s/p TIPS), diabetes mellitus and ETOH abuse. He was transferred from [facility] for abdominal pain x 3 days. Patient admits to heavy drinking of Vodka "1 gallon" per day, daily. GI: Abdominal Pain, acute Acute Alcoholic pancreatitis, acute Amylase, Lipase WNL Mild abdominal pain, improving, tolerating clear liquid diet EGD today Had one episodes of black tarry stools as per patient Platelets are 40 today, will give 1 unit of platelets Hematology: Pancytopenia, improving Platelets 34>40 WBC 1.9>2.0 Likely secondary to ETOH abuse Monitor in abstinence of alcohol Hep panel pending Platelets 40, giving 1 unit of platelets with goal of keeping platelets 50> for invasive procedure and acute GI bleed Psyche: ETOH abuse On Ativan 2mg IVP [facility] consulted to follow Depression, chronic On Seroquel, Prozac, Lexapro Cardiology: Hypertension, slightly elevated On Lisinopril and Norvasc, titrated Lisinopril to 20mg Endocrine: Diabetes, chronic BGM, Novolog sliding scale F.E.N. Fluids: Tolerating PO electrolytes: monitor Nutrition: low sodium Prophylaxis: DVT: contraindicted, low platelets GI: Protonix Disposition: full code.
[2017-09-25] MEDS: amLODIPine BESYLATE 10 MG TABLET (FP) PO SCH (10:07)
[2017-09-25] MEDS: ESCITALOPRAM OXALATE 20 MG TABLET (FP) PO SCH (10:07)
[2017-09-25] MEDS: FLUoxetine HCL 20 MG CAPSULE (FP) PO SCH (10:07)
[2017-09-25] MEDS: LISINOPRIL 10 MG TABLET (FP) PO SCH (10:07)
[2017-09-25] MEDS: CALCIUM 500MG/VIT-D 200 UNITS COMBO TABLET (FP) PO SCH (10:07)
[2017-09-25 10:09] LABS: AMYLASE 43 U/L (25-115)
[2017-09-25 10:10] LABS: ALBUMIN 2.1 g/dl (3.4-5.0); ALK PHOS 118 U/L (45-117); ANION GAP 7 (8-16); CALCIUM 7.4 mg/dL (8.5-10.1); CO2 23 mmol/L (21-32); CREATININE 1.4 mg/dL (0.7-1.3); GLUCOSE,RANDOM 88 mg/dL (74-106); SGOT/AST 27 U/L (15-37); SGPT/ALT 14 U/L (12-78); TOT PROT 5.2 g/dl (6.4-8.2)
[2017-09-25] MEDS: PANTOPRAZOLE SODIUM 40 MG VIAL IVPUSH SCH (10:11)
--- NOTE | 2017-09-25 10:53 | PN ---
Progress Note, Physician History of Present Illness: C/o epigastric pain, black, formed stools. No nausea, jaundice, vomiting. - Current Medication List Current Medications: Active Medications Amlodipine Besylate (Norvasc -) 10 mg PO DAILY [facility] Last Admin: 09/25/17 10:07 Dose: Not Given Calcium Carbonate/Cholecalciferol (Os-Dennis 500+D -) 1 tab PO DAILY [facility] Last Admin: 09/25/17 10:07 Dose: Not Given Escitalopram Oxalate (Lexapro -) 20 mg PO DAILY [facility] Last Admin: 09/25/17 10:07 Dose: Not Given Fluoxetine HCl (Prozac -) 20 mg PO DAILY [facility] Last Admin: 09/25/17 10:07 Dose: Not Given Insulin Aspart (Novolog Vial Sliding Scale -) 1 vial SQ ACHS [facility] PRN Reason: Protocol Last Admin: 09/25/17 06:51 Dose: Not Given Lisinopril (Prinivil) 10 mg PO DAILY [facility] Last Admin: 09/25/17 10:07 Dose: Not Given Lorazepam (Ativan Injection -) 2 mg IVPUSH Q6H PRN PRN Reason: ANXIETY Last Admin: 09/25/17 02:26 Dose: 2 mg Morphine Sulfate (Morphine Sulfate) 2 mg IVPUSH Q4H PRN PRN Reason: PAIN Last Admin: 09/25/17 08:47 Dose: 2 mg Ondansetron HCl (Zofran Injection) 8 mg IVPB Q6H PRN PRN Reason: NAUSEA Pantoprazole Sodium (Protonix Iv) 40 mg IVPUSH DAILY [facility] Last Admin: 09/25/17 10:11 Dose: 40 mg Quetiapine Fumarate (Seroquel -) 100 mg PO HS [facility] Last Admin: 09/24/17 21:51 Dose: 100 mg - Objective Vital Signs: Vital Signs Temperature 98.3 F 09/25/17 08:51 Pulse Rate 77 09/25/17 08:51 Respiratory Rate 20 09/25/17 08:51 Blood Pressure 154/91 09/25/17 08:51 O2 Sat by Pulse Oximetry (%) 98 09/25/17 01:00 Constitutional: Yes: No Distress, Calm Gastrointestinal: Yes: Soft, Abdomen, Obese, Tenderness. No: Distention, Vomiting Neurological: Yes: Alert, Oriented Labs: CBC, BMP 09/25/17 09:15 09/25/17 09:15 INR, PTT INR 1.08 (0.82-1.09) 09/22/17 09:15 CBCD WBC 2.0 K/mm3 (4.0-10.0) L 09/25/17 09:15 RBC 3.19 M/mm3 (4.00-5.60) L 09/25/17 09:15 Hgb 8.9 GM/dL (11.7-16.9) L 09/25/17 09:15 Hct 25.8 % (35.4-49) L 09/25/17 09:15 MCV 80.6 fl (80-96) 09/25/17 09:15 MCHC 34.4 g/dl (32.0-35.9) 09/25/17 09:15 RDW 18.5 % (11.9-15.9) H 09/25/17 09:15 Plt Count 40 K/MM3 (134-434) L 09/25/17 09:15 MPV 10.2 fl (7.5-11.1) 09/25/17 09:15 CMP Sodium 140 mmol/L (136-145) 09/25/17 09:15 Potassium 3.9 mmol/L (3.5-5.1) 09/25/17 09:15 Chloride 110 mmol/L (98-107) H 09/25/17 09:15 Carbon Dioxide 23 mmol/L (21-32) 09/25/17 09:15 Anion Gap 7 (8-16) L 09/25/17 09:15 BUN 13 mg/dL (7-18) 09/25/17 09:15 Creatinine 1.4 mg/dL (0.7-1.3) H 09/25/17 09:15 Creat Clearance w eGFR 54.80 (>60) 09/25/17 09:15 Calcium 7.4 mg/dL (8.5-10.1) L 09/25/17 09:15 Total Bilirubin 1.0 mg/dL (0.2-1.0) D 09/25/17 09:15 AST 27 U/L (15-37) 09/25/17 09:15 ALT 14 U/L (12-78) 09/25/17 09:15 Alkaline Phosphatase 118 U/L (45-117) H 09/25/17 09:15 Total Protein 5.2 g/dl (6.4-8.2) L 09/25/17 09:15 Albumin 2.1 g/dl (3.4-5.0) L 09/25/17 09:15 Laboratory Results - last 24 hr 09/24/17 09/24/17 09/24/17 12:09 16:51 21:50 WBC RBC Hgb Hct MCV MCH MCHC RDW Plt Count MPV Neutrophils % Lymphocytes % Monocytes % Eosinophils % Basophils % Sodium Potassium Chloride Carbon Dioxide Anion Gap BUN Creatinine Creat Clearance w eGFR POC Glucometer 197 104 123 Random Glucose Calcium Total Bilirubin AST ALT Alkaline Phosphatase Total Protein Albumin Total Amylase Lipase 09/25/17 09/25/17 09/25/17 06:55 09:15 09:15 WBC 2.0 L RBC 3.19 L Hgb 8.9 L Hct 25.8 L MCV 80.6 MCH 27.7 MCHC 34.4 RDW 18.5 H Plt Count 40 L MPV 10.2 Neutrophils % 55.2 Lymphocytes % 26.3 D Monocytes % 11.5 H Eosinophils % 6.2 H Basophils % 0.8 Sodium 140 Potassium 3.9 Chloride 110 H Carbon Dioxide 23 Anion Gap 7 L BUN 13 Creatinine 1.4 H Creat Clearance w eGFR 54.80 POC Glucometer 108 Random Glucose 88 Calcium 7.4 L Total Bilirubin 1.0 D AST 27 ALT 14 Alkaline Phosphatase 118 H Total Protein 5.2 L Albumin 2.1 L Total Amylase Lipase 09/25/17 09:15 WBC RBC Hgb Hct MCV MCH MCHC RDW Plt Count MPV Neutrophils % Lymphocytes % Monocytes % Eosinophils % Basophils % Sodium Potassium Chloride Carbon Dioxide Anion Gap BUN Creatinine Creat Clearance w eGFR POC Glucometer Random Glucose Calcium Total Bilirubin AST ALT Alkaline Phosphatase Total Protein Albumin Total Amylase 43 D Lipase 189 Problem List - Problems (1) Pancreatitis Code(s): K85.90 - ACUTE PANCREATITIS WITHOUT NECROSIS OR INFECTION, UNSP (2) Cholelithiasis Code(s): K80.20 - CALCULUS OF GALLBLADDER W/O CHOLECYSTITIS W/O OBSTRUCTION (3) Elevated lactic acid level Code(s): R79.89 - OTHER SPECIFIED ABNORMAL FINDINGS OF BLOOD CHEMISTRY (4) Elevated lipase Code(s): R74.8 - ABNORMAL LEVELS OF OTHER SERUM ENZYMES (5) Alcohol dependence Code(s): F10.20 - ALCOHOL DEPENDENCE, UNCOMPLICATED (6) Alcohol intoxication Code(s): F10.129 - ALCOHOL ABUSE WITH INTOXICATION, UNSPECIFIED Qualifiers: Complication of substance-induced condition: uncomplicated Qualified Code(s): F10.920 - Alcohol use, unspecified with intoxication, uncomplicated; F10.920 - Alcohol use, unspecified with intoxication, uncomplicated; F10.920 - Alcohol use, unspecified with intoxication, uncomplicated (7) Cirrhosis and chronic liver disease Code(s): K74.60 - UNSPECIFIED CIRRHOSIS OF LIVER K76.9 - LIVER DISEASE, UNSPECIFIED (8) Pancreatitis, alcoholic, acute Code(s): K85.20 - ALCOHOL INDUCED ACUTE PANCREATITIS WITHOUT NECROSIS OR INFCT (9) Melena Code(s): K92.1 - MELENA (10) Epigastric abdominal pain Code(s): R10.13 - EPIGASTRIC PAIN Assessment/Plan Acute, alcohol-induced pancreatitis, Alcohol daily for the last 7 days. Liver cirrhosis/TIPS, Lipase improved. Residual epigastric pain with dark stools now. Closely monitor for DT PPI po Detox/substance abuse consult/follow up EGD to evaluate for alcoholic gastritis (d/w patient) Tgc level, daily labs incl hepatic panel and lipase
[2017-09-25] MEDS ORDERED: LISINOPRIL 10 MG TABLET (FP) PO ONE (13:12)
--- NOTE | 2017-09-25 14:55 | PROC ---
Endoscopy Procedure Endoscopy procedure completed. Please see scanned procedure report.
--- NOTE | 2017-09-25 15:09 | CONSULT ---
Consult Detox [facility] Reason for Current Admission/Consult: evaluation of alcohol use disorder Referred by:: thomas tan - History History of Present Illness: 47 yo m w chronic alcoholism admitted with acute pancreatitis/active GI bleed. actively drinking vodka 1 pint daily, was tremulous on admission and treated with prn ativan 2mg. Now comfortable does not want to discuss his drinking at this time. denies dts or seizures, no complaints at this time, no tremors or uncontrolled pain. - History Source History Provided By: Patient, Medical Record, Caregiver Limitations to Obtaining History: Uncooperative - Alcohol/Substance Use Hx Alcohol Use: Yes (1 pint vodka daily) - Current Drug/Alcohol Use Alcohol Route: Oral Frequency: Daily Amount used: 1 pint Date of Last Use: 09/22/17 - Past Medical History Cardio/Vascular: Yes: HTN, Hyperlipdemia Hepatobiliary: Yes: Cirrhosis Renal/: Yes: Hematuria. No: Renal Calculi, UTI Endocrine: Yes: Diabetes Mellitus - Significant Medical Findings: sedated, resting comfortably in bed, no tremors or anxiety noted Vital Signs Temperature 97.8 F 09/25/17 15:00 Pulse Rate 75 09/25/17 15:34 Respiratory Rate 14 09/25/17 15:34 Blood Pressure 151/91 09/25/17 15:34 O2 Sat by Pulse Oximetry (%) 100 09/25/17 15:34 Laboratory Last Values WBC 2.0 K/mm3 (4.0-10.0) L 09/25/17 09:15 RBC 3.19 M/mm3 (4.00-5.60) L 09/25/17 09:15 Hgb 8.9 GM/dL (11.7-16.9) L 09/25/17 09:15 Hct 25.8 % (35.4-49) L 09/25/17 09:15 MCV 80.6 fl (80-96) 09/25/17 09:15 MCH 27.7 pg (25.7-33.7) 09/25/17 09:15 MCHC 34.4 g/dl (32.0-35.9) 09/25/17 09:15 RDW 18.5 % (11.9-15.9) H 09/25/17 09:15 Plt Count 40 K/MM3 (134-434) L 09/25/17 09:15 MPV 10.2 fl (7.5-11.1) 09/25/17 09:15 Total Counted 100 09/23/17 05:55 Neutrophils % 55.2 % (42.8-82.8) 09/25/17 09:15 Neutrophils % (Manual) 48 % (42.8-82.8) 09/23/17 05:55 Band Neuts % (Manual) 2 % (0-10) 09/23/17 05:55 Lymphocytes % 26.3 % (8-40) D 09/25/17 09:15 Lymphocytes % (Manual) 36 % (8-40) 09/23/17 05:55 Monocytes % 11.5 % (3.8-10.2) H 09/25/17 09:15 Monocytes % (Manual) 10 % (3.8-10.2) 09/23/17 05:55 Eosinophils % 6.2 % (0-4.5) H 09/25/17 09:15 Eosinophils % (Manual) 4 % (0-4.5) 09/23/17 05:55 Basophils % 0.8 % (0-2.0) 09/25/17 09:15 Platelet Estimate Decreased (NORMAL) 09/23/17 05:55 Platelet Comment No clumping noted 09/23/17 05:55 Platelet Comment No clotting detected 09/22/17 05:45 PT with INR 12.20 SEC (9.98-11.88) H 09/22/17 09:15 INR 1.08 (0.82-1.09) 09/22/17 09:15 Sodium 140 mmol/L (136-145) 09/25/17 09:15 Potassium 3.9 mmol/L (3.5-5.1) 09/25/17 09:15 Chloride 110 mmol/L (98-107) H 09/25/17 09:15 Carbon Dioxide 23 mmol/L (21-32) 09/25/17 09:15 Anion Gap 7 (8-16) L 09/25/17 09:15 BUN 13 mg/dL (7-18) 09/25/17 09:15 Creatinine 1.4 mg/dL (0.7-1.3) H 09/25/17 09:15 Creat Clearance w eGFR 54.80 (>60) 09/25/17 09:15 POC Glucometer 81 UNITS (()) 09/25/17 13:05 Random Glucose 88 mg/dL (74-106) 09/25/17 09:15 Lactic Acid 0.6 mmol/L (0.4-2.0) 09/23/17 07:30 Calcium 7.4 mg/dL (8.5-10.1) L 09/25/17 09:15 Phosphorus 3.2 mg/dL (2.5-4.9) 09/23/17 07:30 Magnesium 1.7 mg/dL (1.8-2.4) L 09/25/17 13:00 Total Bilirubin 1.0 mg/dL (0.2-1.0) D 09/25/17 09:15 Direct Bilirubin 0.3 mg/dL (0.0-0.2) H 09/23/17 07:30 AST 27 U/L (15-37) 09/25/17 09:15 ALT 14 U/L (12-78) 09/25/17 09:15 Alkaline Phosphatase 118 U/L (45-117) H 09/25/17 09:15 Ammonia 38.95 umol/L (11-32) H 09/22/17 05:45 Creatine Kinase 176 IU/L (39-308) 09/22/17 05:45 Creatine Kinase Index 0.8 % (0.0-5.0) 09/22/17 05:45 CK-MB (CK-2) 1.574 ng/mL (0.5-3.6) 09/22/17 05:45 Troponin I < 0.02 ng/ml (0.00-0.05) 09/22/17 05:45 Total Protein 5.2 g/dl (6.4-8.2) L 09/25/17 09:15 Albumin 2.1 g/dl (3.4-5.0) L 09/25/17 09:15 Triglycerides 62 mg/dL (35-160) D 09/22/17 16:30 Cholesterol 162 mg/dL (50-200) 09/23/17 05:55 Total Amylase 43 U/L (25-115) D 09/25/17 09:15 Lipase 189 U/L (73-393) 09/25/17 09:15 Urine Color Yellow 09/22/17 15:40 Urine Appearance Slcloudy 09/22/17 15:40 Urine pH 5.0 (5.0-8.0) 09/22/17 15:40 Ur Specific [place] 1.020 (1.005-1.025) 09/22/17 15:40 Urine Protein 3+ (NEGATIVE) H 09/22/17 15:40 Urine Glucose (UA) Negative (NEGATIVE) 09/22/17 15:40 Urine Ketones Negative (NEGATIVE) 09/22/17 15:40 Urine Blood 3+ (NEGATIVE) H 09/22/17 15:40 Urine Nitrite Negative (NEGATIVE) 09/22/17 15:40 Urine Bilirubin Negative (NEGATIVE) 09/22/17 15:40 Urine Urobilinogen Negative mg/dL (0.2-1.0) 09/22/17 15:40 Ur Leukocyte Esterase Negative (NEGATIVE) 09/22/17 15:40 Urine RBC 4 /hpf (0-3) 09/22/17 15:40 Urine WBC 8 /hpf (3-5) 09/22/17 15:40 Ur Epithelial Cells Rare /hpf (FEW) 09/22/17 15:40 Hyaline Casts 19 /lpf 09/22/17 15:40 Granular Casts 8 /lpf 09/22/17 15:40 Urine Mucus Rare 09/22/17 15:40 Opiates Screen Positive ng/ml (OMQXOP=052) 09/22/17 15:40 Methadone Screen Negative ng/ml (YTGXVX=297) 09/22/17 15:40 Barbiturate Screen Negative ng/ml (NPNFGD=332) 09/22/17 15:40 Phencyclidine Screen Negative ng/ml (CUTOFF=25) 09/22/17 15:40 Ur Amphetamines Screen Negative ng/ml (YTFAAA=392) 09/22/17 15:40 MDMA (Ecstasy) Screen Negative ng/ml (RXSEPT=566) 09/22/17 15:40 Benzodiazepines Screen Negative ng/ml (FQJRWX=952) 09/22/17 15:40 Cocaine Screen Negative ng/ml (IYNIBS=972) 09/22/17 15:40 U Marijuana (THC) Screen Negative ng/ml (CUTOFF=50) 09/22/17 15:40 Alcohol, Quantitative 171.8 mg/dl (0-5) H* 09/22/17 05:45 Blood Type B POSITIVE 09/25/17 10:45 Antibody Screen Negative 09/25/17 10:45 anemia, s/p dark tarry bm today, tranfused platelets CIWA Score - CIWA Score Nausea/Vomitin-No Nausea/No Vomiting Muscle Tremors: None Anxiety: 0-No Anxiety, at Ease Agitation: 0-Normal Activity Paroxysmal Sweats: No Perspiration Orientation: 0-Oriented Tacttile Disturbances: 0-None Auditory Disturbances: 0-None Visual Disturbances: 0-None Headache: 0-None Present CIWA-Ar Total Score: 0 Assessment Plan - Diagnosis (1) Alcohol dependence with uncomplicated withdrawal Status: Acute (2) Pancreatitis, alcoholic, acute Status: Acute (3) Cirrhosis and chronic liver disease Status: Chronic (4) Diabetes 1.5, managed as type 1 Status: Chronic (5) Essential hypertension Status: Chronic (6) Hypercholesterolemia Status: Chronic - Plan Plan: Patient managed safely with ativan iv, CAN DECREASE DOSE TO 1MG and increase frequency to q4h prn using symptom triggered management. recommend vitamin supplementation, return to outpatient clinic after discharge, consider inpatient rehab if able to participate after acute illness may be too weak and need time to recuperate. - Medication Detox Regimen/Protocol: Not Applicable
[2017-09-25] MEDS ORDERED: MAGNESIUM SULF 50% (8.12 MEQ/2 ML-1 GM VIAL) IVPB ONE (15:52)
[2017-09-25] MEDS ORDERED: LORazepam 2 MG/ML SDV VIAL IVPUSH PRN (15:55)
[2017-09-25] MEDS ORDERED: SODIUM CHLORIDE 1,000 ML IV SCH (16:00)
[2017-09-25] MEDS ORDERED: PT OWN MED DRAWER 7, Y5N ONE (22:11)
[2017-09-25] MEDS: QUEtiapine FUMARATE 100 MG TABLET (FP) PO SCH (22:15)
[2017-09-26] MEDS: INSULIN SLIDING SCALE (NOVOLOG) 1 VIAL SQ SCH ×4 (06:22→21:51)
[2017-09-26 07:53] LABS: BASOPHIL 0.6 % (0-2.0); EOSINOPHIL 5.5 % (0-4.5); MCH 27.7 pg (25.7-33.7); MEAN CELL VOLUME 81.5 fl (80-96); MEAN PLT VOLUME 9.3 fl (7.5-11.1); NEUTROPHILS 55.9 % (42.8-82.8); PLATELET COUNT 47 K/MM3 (134-434); WHITE BLOOD COUNT 2.1 K/mm3 (4.0-10.0)
[2017-09-26 08:16] LABS: ALBUMIN 2.1 g/dl (3.4-5.0); ANION GAP 8 (8-16); CALCIUM 7.6 mg/dL (8.5-10.1); CO2 23 mmol/L (21-32); CREATININE 1.2 mg/dL (0.7-1.3); GLUCOSE,RANDOM 83 mg/dL (74-106); SGOT/AST 31 U/L (15-37); SGPT/ALT 15 U/L (12-78)
[2017-09-26 08:18] LABS: ALK PHOS 125 U/L (45-117); BILIRUBIN,TOTAL 0.7 mg/dL (0.2-1.0); TOT PROT 5.1 g/dl (6.4-8.2)
[2017-09-26] MEDS ORDERED: ESCITALOPRAM OXALATE 10 MG TABLET (FP) ONE (10:14)
[2017-09-26] MEDS: PANTOPRAZOLE SODIUM 40 MG VIAL IVPUSH SCH (10:19)
[2017-09-26] MEDS: CALCIUM 500MG/VIT-D 200 UNITS COMBO TABLET (FP) PO SCH (10:20)
[2017-09-26] MEDS: FLUoxetine HCL 20 MG CAPSULE (FP) PO SCH (10:20)
[2017-09-26] MEDS: FOLIC ACID 1 MG TABLET (FP) PO SCH (10:20)
[2017-09-26] MEDS: ESCITALOPRAM OXALATE 20 MG TABLET (FP) PO SCH (10:20)
[2017-09-26] MEDS: THIAMINE HCL 100 MG TABLET (FP) PO SCH (10:21)
[2017-09-26] MEDS: LISINOPRIL 20 MG TABLET (FP) PO SCH (10:21)
[2017-09-26] MEDS: amLODIPine BESYLATE 10 MG TABLET (FP) PO SCH (10:21)
--- NOTE | 2017-09-26 10:26 | PN ---
Physical Exam: SUBJECTIVE: Patient seen and examined. He reports one small black tarry stool this morning. He is considering inpatient rehab, initially said that he will not attend [facility], but now will consider. OBJECTIVE: No signs of ETOH withdrawal but mildly anxious. hmg/hct low stable, platelets 47 after platelet transfusion yesterday Bleeding risk [facility] on discharge planning if patient agrees. CIWA 2 for anxiety, no tremors, no agitation, denies any other auditory or hallucinations Spoke to Dr. Salazar and discussed patient transitioning to [facility] on discharge (likely tomorrow) Dr. Salazar to see patient in order to decided if patient meets inpatient criteria. Vital Signs Period Temp Pulse Resp BP Sys/Horton Pulse Ox Last 24 Hr 97.8 F-98.4 F 70-80 14-18 130-164/65-91 100-100 GENERAL: The patient is awake, alert, and fully oriented, in no acute distress. HEAD: Normal with no signs of trauma. EYES: PERRL, extraocular movements intact, sclera anicteric, conjunctiva clear. No ptosis. ENT: Ears normal, nares patent, oropharynx clear without exudates, moist mucous membranes. NECK: Trachea midline, full range of motion, supple. LUNGS: Breath sounds equal, clear to auscultation bilaterally, no wheezes, no crackles, no accessory muscle use. HEART: Regular rate and rhythm, S1, S2 without murmur, rub or gallop. ABDOMEN: Soft, nontender, nondistended, normoactive bowel sounds, no guarding, no rebound, no hepatosplenomegaly, no masses. EXTREMITIES: 2+ pulses, warm, well-perfused, no edema. NEUROLOGICAL: Cranial nerves II through XII grossly intact. Normal speech, gait not observed. PSYCH: Normal mood, normal affect. SKIN: Warm, dry, normal turgor, no rashes or lesions noted Laboratory Results - last 24 hr 09/24/17 09/25/17 09/25/17 16:00 10:45 13:00 WBC RBC Hgb Hct MCV MCH MCHC RDW Plt Count MPV Neutrophils % Lymphocytes % Monocytes % Eosinophils % Basophils % Sodium Potassium Chloride Carbon Dioxide Anion Gap BUN Creatinine Creat Clearance w eGFR POC Glucometer Random Glucose Calcium Magnesium 1.7 L Total Bilirubin AST ALT Alkaline Phosphatase Total Protein Albumin Lipase Hepatitis A IgM Ab Negative Hep Bs Antigen Negative Hep B Core IgM Ab Negative Hepatitis C Ab (EIA) <0.1 Blood Type B POSITIVE Antibody Screen Negative 09/25/17 09/25/17 09/25/17 13:05 17:07 22:14 WBC RBC Hgb Hct MCV MCH MCHC RDW Plt Count MPV Neutrophils % Lymphocytes % Monocytes % Eosinophils % Basophils % Sodium Potassium Chloride Carbon Dioxide Anion Gap BUN Creatinine Creat Clearance w eGFR POC Glucometer 81 91 124 Random Glucose Calcium Magnesium Total Bilirubin AST ALT Alkaline Phosphatase Total Protein Albumin Lipase Hepatitis A IgM Ab Hep Bs Antigen Hep B Core IgM Ab Hepatitis C Ab (EIA) Blood Type Antibody Screen 09/26/17 09/26/17 09/26/17 06:10 06:10 06:10 WBC 2.1 L RBC 3.34 L Hgb 9.2 L Hct 27.2 L MCV 81.5 MCH 27.7 MCHC 34.0 RDW 19.0 H Plt Count 47 L MPV 9.3 Neutrophils % 55.9 Lymphocytes % 24.5 Monocytes % 13.5 H Eosinophils % 5.5 H Basophils % 0.6 Sodium 142 Potassium 4.2 Chloride 111 H Carbon Dioxide 23 Anion Gap 8 BUN 12 Creatinine 1.2 Creat Clearance w eGFR > 60 POC Glucometer Random Glucose 83 Calcium 7.6 L Magnesium 2.0 Cancelled Total Bilirubin 0.7 D AST 31 ALT 15 Alkaline Phosphatase 125 H Total Protein 5.1 L Albumin 2.1 L Lipase 261 Cancelled Hepatitis A IgM Ab Hep Bs Antigen Hep B Core IgM Ab Hepatitis C Ab (EIA) Blood Type Antibody Screen 09/26/17 06:22 WBC RBC Hgb Hct MCV MCH MCHC RDW Plt Count MPV Neutrophils % Lymphocytes % Monocytes % Eosinophils % Basophils % Sodium Potassium Chloride Carbon Dioxide Anion Gap BUN Creatinine Creat Clearance w eGFR POC Glucometer 90 Random Glucose Calcium Magnesium Total Bilirubin AST ALT Alkaline Phosphatase Total Protein Albumin Lipase Hepatitis A IgM Ab Hep Bs Antigen Hep B Core IgM Ab Hepatitis C Ab (EIA) Blood Type Antibody Screen Active Medications Generic Name Dose Route Start Last Admin Trade Name Freq PRN Reason Stop Dose Admin Amlodipine Besylate 10 mg 09/23/17 10:00 09/26/17 10:21 Norvasc - PO 10 mg DAILY DEV Administration Calcium Carbonate/Cholecalciferol 1 tab 09/23/17 16:45 09/26/17 10:20 Os-Dennis 500+D - PO 1 tab DAILY DEV Administration Escitalopram Oxalate 20 mg 09/23/17 10:00 09/26/17 10:20 Lexapro - PO 20 mg DAILY DEV Administration Fluoxetine HCl 20 mg 09/23/17 10:00 09/26/17 10:20 Prozac - PO 20 mg DAILY DEV Administration Folic Acid 1 mg 09/26/17 10:00 09/26/17 10:20 Folic Acid - PO 1 mg DAILY DEV Administration Sodium Chloride 1,000 mls @ 50 mls/hr 09/25/17 16:00 09/25/17 16:30 Normal Saline - IV 09/26/17 15:56 50 mls/hr ASDIR DEV Administration Insulin Aspart 1 vial 09/22/17 16:30 09/26/17 06:22 Novolog Vial Sliding Scale - SQ Not Given ACHS [facility] Protocol Lisinopril 20 mg 09/25/17 13:08 09/26/17 10:21 Prinivil PO 20 mg DAILY DEV Administration Lorazepam 1 mg 09/25/17 15:55 Ativan Injection - IVPUSH Q4H PRN ANXIETY Morphine Sulfate 2 mg 09/22/17 11:53 09/25/17 08:47 Morphine Sulfate IVPUSH 2 mg Q4H PRN Administration PAIN Ondansetron HCl 8 mg 09/22/17 16:51 Zofran Injection IVPB Q6H PRN NAUSEA Pantoprazole Sodium 40 mg 09/22/17 16:30 09/26/17 10:19 Protonix Iv IVPUSH 40 mg DAILY DEV Administration Quetiapine Fumarate 100 mg 09/22/17 22:00 09/25/17 22:15 Seroquel - PO 100 mg HS DEV Administration Thiamine HCl 100 mg 09/26/17 10:00 09/26/17 10:21 Vitamin B1 - PO 100 mg DAILY DEV Administration ASSESSMENT/PLAN: Patient is a 47 year old male with a past medical history of hypertension, depression, liver cirrhosis (s/p TIPS), diabetes mellitus and ETOH abuse. He was transferred from [facility] for abdominal pain x 3 days. Patient admits to heavy drinking of Vodka "1 gallon" per day, daily. Imaging: Abd CT scan: TIPS catheter in position w/o interval change, boderline hepatosplenomegaly, overdistended gallbladder, small fat containing umbilical hernia. GI: Abdominal Pain, improved Acute Alcoholic pancreatitis, resolved Amylase, Lipase WNL Mild abdominal pain, improving, tolerating full liquid diet, will advance to regular EGD shows erythematous gastritis in gastric fundus, biopsies pending Had one episodes of black tarry stools this morning as per patient, monitor Platelets are 47 today s/p 1 unit of platelets on 09/25 Hmg/hct improving On Protonix daily Follow up with GI as an outpatient within 1 week Hematology: Pancytopenia, improving Platelets 34>47 WBC 1.9>2.1 Likely secondary to ETOH abuse Monitor in abstinence of alcohol Hep panel pending Platelets 47, s/p 1 unit of platelets with goal of keeping platelets 50> for invasive procedure and acute GI bleed Psyche: ETOH abuse, chronic On Ativan 2mg IVP [facility] consulted to follow up today, for pending inpatient transfer Detox/substance abuse consult appreciated Depression, chronic On Seroquel, Prozac, Lexapro Patient reports non compliance with home psyche meds Cardiology: Hypertension, slightly elevated On Lisinopril and Norvasc, titrated Lisinopril to 20mg Monitor Endocrine: Diabetes, chronic BGM, Novolog sliding scale F.E.N. Fluids: Tolerating PO electrolytes: monitor Nutrition: low sodium Prophylaxis: DVT: contraindicted, low platelets GI: Protonix Disposition: full code. Discharge pending for tomorrow to either inpatient [facility] or home. Patient has a PCP > Dr. Ward [phone] who patient is willing to follow up with on discharge. Visit type - Emergency Visit Emergency Visit: Yes ED Registration Date: 09/22/17 Care time: The patient presented to the Emergency Department on the above date and was hospitalized for further evaluation of their emergent condition. - New Patient This patient is new to me today: No - Critical Care Critical Care patient: No - Discharge Referral Referred to [facility] Med P.C[facility] No
--- NOTE | 2017-09-26 10:59 | PN ---
Progress Note, Physician History of Present Illness: no pain, formed stools. No nausea, jaundice, vomiting. - Current Medication List Current Medications: Active Medications Amlodipine Besylate (Norvasc -) 10 mg PO DAILY [facility] Last Admin: 09/26/17 10:21 Dose: 10 mg Calcium Carbonate/Cholecalciferol (Os-Dennis 500+D -) 1 tab PO DAILY [facility] Last Admin: 09/26/17 10:20 Dose: 1 tab Escitalopram Oxalate (Lexapro -) 20 mg PO DAILY [facility] Last Admin: 09/26/17 10:20 Dose: 20 mg Fluoxetine HCl (Prozac -) 20 mg PO DAILY [facility] Last Admin: 09/26/17 10:20 Dose: 20 mg Folic Acid (Folic Acid -) 1 mg PO DAILY [facility] Last Admin: 09/26/17 10:20 Dose: 1 mg Sodium Chloride (Normal Saline -) 1,000 mls @ 50 mls/hr IV ASDIR [facility] Stop: 09/26/17 15:56 Last Admin: 09/25/17 16:30 Dose: 50 mls/hr Insulin Aspart (Novolog Vial Sliding Scale -) 1 vial SQ ACHS [facility] PRN Reason: Protocol Last Admin: 09/26/17 06:22 Dose: Not Given Lisinopril (Prinivil) 20 mg PO DAILY [facility] Last Admin: 09/26/17 10:21 Dose: 20 mg Lorazepam (Ativan Injection -) 1 mg IVPUSH Q4H PRN PRN Reason: ANXIETY Last Admin: 09/26/17 10:31 Dose: 1 mg Morphine Sulfate (Morphine Sulfate) 2 mg IVPUSH Q4H PRN PRN Reason: PAIN Last Admin: 09/25/17 08:47 Dose: 2 mg Ondansetron HCl (Zofran Injection) 8 mg IVPB Q6H PRN PRN Reason: NAUSEA Pantoprazole Sodium (Protonix Iv) 40 mg IVPUSH DAILY [facility] Last Admin: 09/26/17 10:19 Dose: 40 mg Quetiapine Fumarate (Seroquel -) 100 mg PO HS [facility] Last Admin: 09/25/17 22:15 Dose: 100 mg Thiamine HCl (Vitamin B1 -) 100 mg PO DAILY [facility] Last Admin: 09/26/17 10:21 Dose: 100 mg - Objective Vital Signs: Vital Signs Temperature 98.3 F 09/26/17 06:00 Pulse Rate 80 10/31/17 06:00 Respiratory Rate 18 09/26/17 06:00 Blood Pressure 158/89 09/26/17 06:00 O2 Sat by Pulse Oximetry (%) 100 09/25/17 15:34 Constitutional: Yes: No Distress, Calm Cardiovascular: Yes: Regular Rate and Rhythm Respiratory: Yes: Regular Gastrointestinal: Yes: Normal Bowel Sounds, Soft. No: Distention, Melena, Rectal Bleeding, Tenderness Labs: CBC, BMP 09/26/17 06:10 09/26/17 06:10 INR, PTT INR 1.08 (0.82-1.09) 09/22/17 09:15 CBCD WBC 2.1 K/mm3 (4.0-10.0) L 09/26/17 06:10 RBC 3.34 M/mm3 (4.00-5.60) L 09/26/17 06:10 Hgb 9.2 GM/dL (11.7-16.9) L 09/26/17 06:10 Hct 27.2 % (35.4-49) L 09/26/17 06:10 MCV 81.5 fl (80-96) 09/26/17 06:10 MCHC 34.0 g/dl (32.0-35.9) 09/26/17 06:10 RDW 19.0 % (11.9-15.9) H 09/26/17 06:10 Plt Count 47 K/MM3 (134-434) L 09/26/17 06:10 MPV 9.3 fl (7.5-11.1) 09/26/17 06:10 CMP Sodium 142 mmol/L (136-145) 09/26/17 06:10 Potassium 4.2 mmol/L (3.5-5.1) 09/26/17 06:10 Chloride 111 mmol/L (98-107) H 09/26/17 06:10 Carbon Dioxide 23 mmol/L (21-32) 09/26/17 06:10 Anion Gap 8 (8-16) 09/26/17 06:10 BUN 12 mg/dL (7-18) 09/26/17 06:10 Creatinine 1.2 mg/dL (0.7-1.3) 09/26/17 06:10 Creat Clearance w eGFR > 60 (>60) 09/26/17 06:10 Calcium 7.6 mg/dL (8.5-10.1) L 09/26/17 06:10 Total Bilirubin 0.7 mg/dL (0.2-1.0) D 09/26/17 06:10 AST 31 U/L (15-37) 09/26/17 06:10 ALT 15 U/L (12-78) 09/26/17 06:10 Alkaline Phosphatase 125 U/L (45-117) H 09/26/17 06:10 Total Protein 5.1 g/dl (6.4-8.2) L 09/26/17 06:10 Albumin 2.1 g/dl (3.4-5.0) L 09/26/17 06:10 Problem List - Problems (1) Pancreatitis Code(s): K85.90 - ACUTE PANCREATITIS WITHOUT NECROSIS OR INFECTION, UNSP (2) Cholelithiasis Code(s): K80.20 - CALCULUS OF GALLBLADDER W/O CHOLECYSTITIS W/O OBSTRUCTION (3) Elevated lactic acid level Code(s): R79.89 - OTHER SPECIFIED ABNORMAL FINDINGS OF BLOOD CHEMISTRY (4) Elevated lipase Code(s): R74.8 - ABNORMAL LEVELS OF OTHER SERUM ENZYMES (5) Alcohol dependence Code(s): F10.20 - ALCOHOL DEPENDENCE, UNCOMPLICATED (6) Alcohol intoxication Code(s): F10.129 - ALCOHOL ABUSE WITH INTOXICATION, UNSPECIFIED Qualifiers: Complication of substance-induced condition: uncomplicated Qualified Code(s): F10.920 - Alcohol use, unspecified with intoxication, uncomplicated; F10.920 - Alcohol use, unspecified with intoxication, uncomplicated; F10.920 - Alcohol use, unspecified with intoxication, uncomplicated (7) Cirrhosis and chronic liver disease Code(s): K74.60 - UNSPECIFIED CIRRHOSIS OF LIVER K76.9 - LIVER DISEASE, UNSPECIFIED (8) Pancreatitis, alcoholic, acute Code(s): K85.20 - ALCOHOL INDUCED ACUTE PANCREATITIS WITHOUT NECROSIS OR INFCT (9) Melena Code(s): K92.1 - MELENA (10) Epigastric abdominal pain Code(s): R10.13 - EPIGASTRIC PAIN Assessment/Plan Acute, alcohol-induced pancreatitis, Alcohol daily for the last 7 days. Liver cirrhosis/TIPS, Lipase improved. Residual epigastric pain with dark stools now. Lipase normal PPI po qam Detox/substance abuse consult appreciated follow up as instructed EGD done, biopsies pending advance diet as tolerated follow up as op in 1-2 weeks
[2017-09-26] MEDS: morphine CARPU-JECT 8 MG/1 ML DISP.SYRIN IVPUSH PRN ×2 (13:18→20:36)
[2017-09-26] MEDS: QUEtiapine FUMARATE 100 MG TABLET (FP) PO SCH (21:50)
[2017-09-27 06:06] VITALS: TEMP 98.8
[2017-09-27] MEDS: INSULIN SLIDING SCALE (NOVOLOG) 1 VIAL SQ SCH ×2 (06:23→12:01)
--- NOTE | 2017-09-27 08:02 | PN ---
Progress Note, Physician History of Present Illness: no pain, formed stools. No nausea, jaundice, vomiting. - Current Medication List Current Medications: Active Medications Amlodipine Besylate (Norvasc -) 10 mg PO DAILY [facility] Last Admin: 09/26/17 10:21 Dose: 10 mg Calcium Carbonate/Cholecalciferol (Os-Dennis 500+D -) 1 tab PO DAILY [facility] Last Admin: 09/26/17 10:20 Dose: 1 tab Escitalopram Oxalate (Lexapro -) 20 mg PO DAILY [facility] Last Admin: 09/26/17 10:20 Dose: 20 mg Fluoxetine HCl (Prozac -) 20 mg PO DAILY [facility] Last Admin: 09/26/17 10:20 Dose: 20 mg Folic Acid (Folic Acid -) 1 mg PO DAILY [facility] Last Admin: 09/26/17 10:20 Dose: 1 mg Insulin Aspart (Novolog Vial Sliding Scale -) 1 vial SQ ACHS [facility] PRN Reason: Protocol Last Admin: 09/27/17 06:23 Dose: Not Given Lisinopril (Prinivil) 20 mg PO DAILY [facility] Last Admin: 09/26/17 10:21 Dose: 20 mg Lorazepam (Ativan Injection -) 1 mg IVPUSH Q4H PRN PRN Reason: ANXIETY Last Admin: 09/26/17 10:31 Dose: 1 mg Morphine Sulfate (Morphine Sulfate) 2 mg IVPUSH Q4H PRN PRN Reason: PAIN Last Admin: 09/26/17 20:36 Dose: 2 mg Ondansetron HCl (Zofran Injection) 8 mg IVPB Q6H PRN PRN Reason: NAUSEA Pantoprazole Sodium (Protonix Iv) 40 mg IVPUSH DAILY [facility] Last Admin: 09/26/17 10:19 Dose: 40 mg Quetiapine Fumarate (Seroquel -) 100 mg PO HS [facility] Last Admin: 09/26/17 21:50 Dose: 100 mg Thiamine HCl (Vitamin B1 -) 100 mg PO DAILY [facility] Last Admin: 09/26/17 10:21 Dose: 100 mg - Objective Vital Signs: Vital Signs Temperature 98.8 F 09/27/17 06:00 Pulse Rate 68 09/27/17 06:00 Respiratory Rate 18 09/27/17 06:00 Blood Pressure 140/82 09/27/17 06:00 O2 Sat by Pulse Oximetry (%) 100 09/25/17 15:34 Constitutional: Yes: Well Nourished, No Distress, Calm Eyes: Yes: Conjunctiva Clear HENT: Yes: Atraumatic Neck: Yes: Supple Cardiovascular: Yes: Regular Rate and Rhythm Respiratory: Yes: Regular Gastrointestinal: Yes: Normal Bowel Sounds, Soft. No: Tenderness Neurological: Yes: Alert, Oriented Labs: INR, PTT INR 1.08 (0.82-1.09) 09/22/17 09:15 CBCD WBC 2.1 K/mm3 (4.0-10.0) L 09/26/17 06:10 RBC 3.34 M/mm3 (4.00-5.60) L 09/26/17 06:10 Hgb 9.2 GM/dL (11.7-16.9) L 09/26/17 06:10 Hct 27.2 % (35.4-49) L 09/26/17 06:10 MCV 81.5 fl (80-96) 09/26/17 06:10 MCHC 34.0 g/dl (32.0-35.9) 09/26/17 06:10 RDW 19.0 % (11.9-15.9) H 09/26/17 06:10 Plt Count 47 K/MM3 (134-434) L 09/26/17 06:10 MPV 9.3 fl (7.5-11.1) 09/26/17 06:10 CMP Sodium 142 mmol/L (136-145) 09/26/17 06:10 Potassium 4.2 mmol/L (3.5-5.1) 09/26/17 06:10 Chloride 111 mmol/L (98-107) H 09/26/17 06:10 Carbon Dioxide 23 mmol/L (21-32) 09/26/17 06:10 Anion Gap 8 (8-16) 09/26/17 06:10 BUN 12 mg/dL (7-18) 09/26/17 06:10 Creatinine 1.2 mg/dL (0.7-1.3) 09/26/17 06:10 Creat Clearance w eGFR > 60 (>60) 09/26/17 06:10 Calcium 7.6 mg/dL (8.5-10.1) L 09/26/17 06:10 Total Bilirubin 0.7 mg/dL (0.2-1.0) D 09/26/17 06:10 AST 31 U/L (15-37) 09/26/17 06:10 ALT 15 U/L (12-78) 09/26/17 06:10 Alkaline Phosphatase 125 U/L (45-117) H 09/26/17 06:10 Total Protein 5.1 g/dl (6.4-8.2) L 09/26/17 06:10 Albumin 2.1 g/dl (3.4-5.0) L 09/26/17 06:10 Abnormal Lab Results 09/26/17 09/26/17 06:10 06:10 WBC 2.1 L RBC 3.34 L Hgb 9.2 L Hct 27.2 L RDW 19.0 H Plt Count 47 L Monocytes % 13.5 H Eosinophils % 5.5 H Chloride 111 H Calcium 7.6 L Alkaline Phosphatase 125 H Total Protein 5.1 L Albumin 2.1 L CBCD WBC 1.8 K/mm3 (4.0-10.0) L* 09/27/17 06:48 RBC 3.15 M/mm3 (4.00-5.60) L 09/27/17 06:48 Hgb 8.7 GM/dL (11.7-16.9) L 09/27/17 06:48 Hct 25.4 % (35.4-49) L 09/27/17 06:48 MCV 80.7 fl (80-96) 09/27/17 06:48 MCHC 34.3 g/dl (32.0-35.9) 09/27/17 06:48 RDW 19.4 % (11.9-15.9) H 09/27/17 06:48 Plt Count 46 K/MM3 (134-434) L 09/27/17 06:48 MPV 9.2 fl (7.5-11.1) 09/27/17 06:48 CMP Sodium 142 mmol/L (136-145) 09/27/17 06:48 Potassium 4.0 mmol/L (3.5-5.1) 09/27/17 06:48 Chloride 110 mmol/L (98-107) H 09/27/17 06:48 Carbon Dioxide 24 mmol/L (21-32) 09/27/17 06:48 Anion Gap 8 (8-16) 09/27/17 06:48 BUN 12 mg/dL (7-18) 09/27/17 06:48 Creatinine 1.1 mg/dL (0.7-1.3) 09/27/17 06:48 Creat Clearance w eGFR > 60 (>60) 09/27/17 06:48 Calcium 7.4 mg/dL (8.5-10.1) L 09/27/17 06:48 Total Bilirubin 0.8 mg/dL (0.2-1.0) 09/27/17 06:48 AST 24 U/L (15-37) D 09/27/17 06:48 ALT 14 U/L (12-78) 09/27/17 06:48 Alkaline Phosphatase 108 U/L (45-117) 09/27/17 06:48 Total Protein 4.7 g/dl (6.4-8.2) L 09/27/17 06:48 Albumin 2.0 g/dl (3.4-5.0) L 09/27/17 06:48 Problem List - Problems (1) Pancreatitis Code(s): K85.90 - ACUTE PANCREATITIS WITHOUT NECROSIS OR INFECTION, UNSP (2) Cholelithiasis Code(s): K80.20 - CALCULUS OF GALLBLADDER W/O CHOLECYSTITIS W/O OBSTRUCTION (3) Elevated lactic acid level Code(s): R79.89 - OTHER SPECIFIED ABNORMAL FINDINGS OF BLOOD CHEMISTRY (4) Elevated lipase Code(s): R74.8 - ABNORMAL LEVELS OF OTHER SERUM ENZYMES (5) Alcohol dependence Code(s): F10.20 - ALCOHOL DEPENDENCE, UNCOMPLICATED (6) Alcohol intoxication Code(s): F10.129 - ALCOHOL ABUSE WITH INTOXICATION, UNSPECIFIED Qualifiers: Complication of substance-induced condition: uncomplicated Qualified Code(s): F10.920 - Alcohol use, unspecified with intoxication, uncomplicated; F10.920 - Alcohol use, unspecified with intoxication, uncomplicated; F10.920 - Alcohol use, unspecified with intoxication, uncomplicated (7) Cirrhosis and chronic liver disease Code(s): K74.60 - UNSPECIFIED CIRRHOSIS OF LIVER K76.9 - LIVER DISEASE, UNSPECIFIED (8) Pancreatitis, alcoholic, acute Code(s): K85.20 - ALCOHOL INDUCED ACUTE PANCREATITIS WITHOUT NECROSIS OR INFCT (9) Melena Code(s): K92.1 - MELENA (10) Epigastric abdominal pain Code(s): R10.13 - EPIGASTRIC PAIN Assessment/Plan Acute, alcohol-induced pancreatitis, Alcohol daily for the last 7 days. Liver cirrhosis/TIPS, Lipase improved. Pain-free and tolerating reg. diet Lipase normal PPI po qam Detox/substance abuse consult appreciated follow up as instructed EGD done, biopsies pending diet as tolerated follow up with GI as op in 1-2 weeks. Discussed with the patient
[2017-09-27 08:07] LABS: MCH 27.6 pg (25.7-33.7); MCHC 34.3 g/dl (32.0-35.9); MEAN CELL VOLUME 80.7 fl (80-96); MEAN PLT VOLUME 9.2 fl (7.5-11.1); PLATELET COUNT 46 K/MM3 (134-434); RDW 19.4 % (11.9-15.9)
[2017-09-27 08:16] LABS: WHITE BLOOD COUNT 1.8 K/mm3 (4.0-10.0)
[2017-09-27 08:35] LABS: ANION GAP 8 (8-16); BILIRUBIN,TOTAL 0.8 mg/dL (0.2-1.0); CALCIUM 7.4 mg/dL (8.5-10.1); CO2 24 mmol/L (21-32); CREATININE 1.1 mg/dL (0.7-1.3); GLUCOSE,RANDOM 80 mg/dL (74-106); SGOT/AST 24 U/L (15-37); SGPT/ALT 14 U/L (12-78); TOT PROT 4.7 g/dl (6.4-8.2)
[2017-09-27 08:36] LABS: ALK PHOS 108 U/L (45-117)
[2017-09-27 10:04] LABS: PLATELET ESTIMATE MARKEDLY DECREASED (NORMAL); TOTAL CELLS COUNTED 100
[2017-09-27] MEDS ORDERED: ESCITALOPRAM OXALATE 10 MG TABLET (FP) ONE (10:06)
[2017-09-27] MEDS: FOLIC ACID 1 MG TABLET (FP) PO SCH (10:14)
[2017-09-27] MEDS: amLODIPine BESYLATE 10 MG TABLET (FP) PO SCH (10:14)
[2017-09-27] MEDS: ESCITALOPRAM OXALATE 20 MG TABLET (FP) PO SCH (10:14)
[2017-09-27] MEDS: FLUoxetine HCL 20 MG CAPSULE (FP) PO SCH (10:15)
[2017-09-27] MEDS: LISINOPRIL 20 MG TABLET (FP) PO SCH (10:15)
[2017-09-27] MEDS: CALCIUM 500MG/VIT-D 200 UNITS COMBO TABLET (FP) PO SCH (10:15)
[2017-09-27] MEDS: THIAMINE HCL 100 MG TABLET (FP) PO SCH (10:15)
[2017-09-27] MEDS: PANTOPRAZOLE SODIUM 40 MG VIAL IVPUSH SCH (10:15)
[2017-09-27 12:08] VITALS: BP 155/85; PULSE 87
[2017-09-27] MEDS ORDERED: MAG HYDROX/AL HYDROX/SIMETH 30 ML UNIT-DOSE CUP PO PRN (12:36)
--- NOTE | 2017-09-27 12:39 | DS ---
Physical Examination Vital Signs: Vital Signs Temperature 98.8 F 09/27/17 06:00 Pulse Rate 87 09/27/17 10:00 Respiratory Rate 18 09/27/17 10:00 Blood Pressure 155/85 09/27/17 10:00 O2 Sat by Pulse Oximetry (%) 100 09/25/17 15:34 Findings/Remarks: GENERAL: The patient is awake, alert, and fully oriented, in no acute distress. LUNGS: Breath sounds equal, clear to auscultation bilaterally, no wheezes, no crackles, no accessory muscle use. HEART: Regular rate and rhythm, S1, S2 ABDOMEN: Soft, nontender, nondistended, normoactive bowel sounds, EXTREMITIES: 2+ pulses, warm, well-perfused, no edema. Labs: CBC, BMP 09/27/17 06:48 09/27/17 06:48 Discharge Summary Reason For Visit: INTRACTABLE ABD PAIN Current Active Problems Alcoholic hepatitis (Acute) Cholelithiasis (Acute) Diarrhea (Acute) Elevated lactic acid level (Acute) Elevated lipase (Acute) Epigastric abdominal pain (Acute) Gross hematuria (Acute) Intractable abdominal pain (Acute) Melena (Acute) Pancreatitis (Acute) Pancreatitis, alcoholic, acute (Acute) Pancytopenia (Acute) Alcohol dependence (Chronic) Hospital Course: This is a 47 year old male with a past medical history of hypertension, depression, liver cirrhosis (s/p TIPS), diabetes mellitus and ETOH abuse. He was transferred from [facility] for abdominal pain x 3 days. Patient admits to heavy drinking of Vodka "1 gallon" per day, daily. Abdominal Pain, improved Acute Alcoholic pancreatitis, resolved Amylase, Lipase WNL Tolerating diet EGD shows erythematous gastritis in gastric fundus, biopsies pending Platelets are 46 Hmg/hct improving On Protonix daily Follow up with GI as an outpatient within 1 week Hematology: Pancytopenia, improving Thrombocytopenia likely 2/2 chronic etoh abuse WBC 1.9>2.1 Likely secondary to ETOH abuse Monitor in abstinence of alcohol Psyche: ETOH abuse, chronic On Ativan 2mg IVP Detox/substance abuse consult appreciated Depression, chronic On Seroquel, Prozac, Lexapro Patient reports non compliance with home psyche meds Cardiology: Hypertension, slightly elevated On Lisinopril and Norvasc, titrated Lisinopril to 20mg Monitor Endocrine: Diabetes, chronic BGM, Novolog sliding scale F.E.N. Fluids: Tolerating PO Nutrition: low sodium Condition: Improved - Instructions Diet, Activity, Other Instructions: Please return to the ED with new, persistent, or worsening symptoms. Please follow-up with providers as indicated. Referrals: STAFF,NOT ON [Primary Care Provider] - Emmanuel Freeman MD [Staff Physician] - (Please follow-up with GI in 1-2 weeks to receive your biopsy results from your EGD) Wilman Perla MD [Staff Physician] - 1 Week Ranjit Salazar MD [Staff Physician] - (Please follow-up at [facility] ) on Monday09/29/17 at 10am) Disposition: HOME - Home Medications Comprehensive Discharge Medication List: Ambulatory Orders Escitalopram Oxalate [Lexapro -] 20 mg PO DAILY 04/28/17 Quetiapine Fumarate [Seroquel] 100 mg PO HS 04/28/17 Amlodipine Besylate [Norvasc -] 10 mg PO DAILY #30 tab 05/11/17 Fluoxetine HCl [Prozac -] 20 mg PO DAILY #30 tab 05/11/17 Calcium 500Mg/Vit-D 200 Units [Os-Dennis 500+D -] 1 tab PO DAILY #30 tab 09/27/17 Folic Acid - 1 mg PO DAILY #30 tablet 09/27/17 Lisinopril [Prinivil] 20 mg PO DAILY #30 tablet 09/27/17 Multivitamin [One Daily] 1 each PO DAILY #30 tablet 09/27/17 Thiamine HCl [Vitamin B1 -] 100 mg PO DAILY #30 tablet 09/27/17 This patient is new to me today: Yes Date on this admission: 09/27/17 Emergency Visit: Yes ED Registration Date: 09/22/17 Care time: The patient presented to the Emergency Department on the above date and was hospitalized for further evaluation of their emergent condition. Critical Care patient: No - Discharge Referral Referred to [facility] No
== END 2017-09-27 12:40 | disposition home or self-care (01) | DRG 282 ==
LOC: SUPCPDRO 04:48 → JER 04:48 → JERBED 11:24 → J6S 13:46 → OBSVTOIN 18:11 → J6S 09-25 11:20
PROVIDERS: ADMIT Internal Medicine; ATTEND Registered Nurse
PROC: HZ2ZZZZ Detoxification Services for Substance Abuse Treatment (ICD-10-PCS; principal; 2017-09-22)
PROC: 0DD68ZX Extraction of Stomach, Via Natural or Artificial Opening Endoscopic, Diagnostic (ICD-10-PCS; 2017-09-25)
PROC: 0DD58ZX Extraction of Esophagus, Via Natural or Artificial Opening Endoscopic, Diagnostic (ICD-10-PCS; 2017-09-25)
DX: K85.20 Alcohol induced acute pancreatitis without necrosis or infection (principal); K80.20 Calculus of gallbladder without cholecystitis without obstruction; R74.8 Abnormal levels of other serum enzymes; F10.20 Alcohol dependence, uncomplicated; R10.13 Epigastric pain; E11.9 Type 2 diabetes mellitus without complications; I10 Essential (primary) hypertension; K92.1 Melena; D61.818 Other pancytopenia; F32.9 Major depressive disorder, single episode, unspecified; E83.42 Hypomagnesemia; F10.24 Alcohol dependence with alcohol-induced mood disorder; E87.2 Acidosis; E66.9 Obesity, unspecified; Z68.34 Body mass index [BMI] 34.0-34.9, adult; K70.30 Alcoholic cirrhosis of liver without ascites; R31.0 Gross hematuria; K70.10 Alcoholic hepatitis without ascites; E78.5 Hyperlipidemia, unspecified; K29.70 Gastritis, unspecified, without bleeding
CPT/HCPCS: 36415; 36430; 74176-TC; 80048; 80053; 80074; 80076; 80307; 81003; 81015; 82140; 82150; 82465; 82550; 82553; 83605; 83690; 83735; 84100; 84478; 84484; 85025; 85027; 85610; 86803; 86850; 86900; 86901; 87040; 88305-TC; 90688; 93005; 93010; 99285-25; G0008; G0378; J1644; P9034; P9038

== ENCOUNTER 2018-02-22 19:28 | Inpatient (IN) | payer OTHER ==
[2018-02-22] MEDS ORDERED: MELATONIN 5 MG TABLETS PO PRN (22:00)
[2018-02-22 22:41] VITALS: BMI 32.5
--- NOTE | 2018-02-22 22:50 | HP ---
CIWA Score - CIWA Score Nausea/Vomitin Muscle Tremors: 2 Anxiety: 2 Agitation: 0-Normal Activity Paroxysmal Sweats: 1-Minimal Palms Moist Orientation: 1-Uncertain about Date Tacttile Disturbances: 2-Mild Itch/Numbness/Burn (both feet burning sentatin) Auditory Disturbances: 3-Moderate Harsh/Frighten Visual Disturbances: 0-None Headache: 0-None Present CIWA-Ar Total Score: 13 Admission ROS [facility] - HPI Chief Complaint: I want to get better, I feel shaky and dizzy. Allergies/Adverse Reactions: Allergies Allergy/AdvReac Type Severity Reaction Status Date / Time shellfish derived Allergy Severe Swelling Verified 02/22/18 23:28 No Known Drug Allergies Allergy Verified 02/22/18 23:28 NKDA Allergy Uncoded 02/22/18 23:28 History of Present Illness: 47 yo male with hx of alcohol and nicotine dependence is here seeking detox. PMHX: HTN ( non-compliant with meds), DM II on Metformin, depression, insomnia. Denies suicidal / homicidal ideation, hx of suicide attempt 5 months ago was sent to [facility] by swallowing razors. Longest period of 2 days. Last detox [place] March 2017. Reports of blackouts Exam Limitations: No Limitations - Ebola screening Have you traveled outside of the country in the last 21 days: No (N) Have you had contact with anyone from an Ebola affected area: No Have you been sick,other than usual withdrawal symptoms: No Do you have a fever: No - Review of Systems Constitutional: Chills, Changes in sleep, Weakness, Unintentional Wgt. Loss ( loss 20 lbs in the past 6-8 months) EENT: reports: No Symptoms Reported Respiratory: reports: No Symptoms reported Cardiac: reports: Edema, Lightheadedness GI: reports: Diarrhea, Nausea, Poor Appetite, Poor Fluid Intake, Vomiting, Abdominal cramping : reports: No Symptoms Reported Musculoskeletal: reports: No Symptoms Reported Integumentary: reports: No Symptoms Reported Neuro: reports: Numbness, Tingling, Weakness, Dizziness Endocrine: reports: Increased Thirst Hematology: reports: No Symptoms Reported Psychiatric: reports: Orientated x3, Anxious Other Systems: Reviewed and Negative Patient History - Patient Medical History Hx Anemia: No Hx Asthma: No Hx Chronic Obstructive Pulmonary Disease (COPD): No Hx Cancer: No Hx Cardiac Disorders: Yes Hx Congestive Heart Failure: No Hx Hypertension: Yes Hx Hypercholesterolemia: No Hx Pacemaker: No HX Cerebrovascular Accident: No Hx Seizures: No Hx Dementia: No Hx Diabetes: Yes Hx Gastrointestinal Disorders: Yes (cirrhosis etoh abuse) Hx Liver Disease: Yes (CIRRHOSIS OF LIVER) Hx Genitourinary Disorders: No Hx Sexually Transmitted Disorders: No Hx Renal Disease (ESRD): No Hx Thyroid Disease: No Hx Human Immunodeficiency Virus (HIV): No Hx Hepatitis C: No Hx Depression: Yes Hx Suicide Attempt: No Hx Bipolar Disorder: No Hx Schizophrenia: No - Patient Surgical History Past Surgical History: Yes Hx Neurologic Surgery: No Hx Cataract Extraction: No Hx Cardiac Surgery: No Hx Lung Surgery: No Hx Breast Surgery: No Hx Breast Biopsy: No Hx Abdominal Surgery: No Hx Appendectomy: No Hx Cholecystectomy: No Hx Genitourinary Surgery: No Hx Section: No Hx Orthopedic Surgery: Yes (right shoulder due to dislocation 6 years ago) Other Surgical History: biopsy of liver IN 2010 AT [facility] Anesthesia Reaction: No - PPD History Previous Implant?: Yes Documented Results: Negative w/proof Date: 04/20/17 Results: 0 mm PPD to be Administered?: No - Reproductive History Patient is a Female of Child Bearing Age (11 -55 yrs old): No - Smoking Cessation Smoking history: Current every day smoker Have you smoked in the past 12 months: Yes Aproximately how many cigarettes per day: 1 Cigars Per Day: 0 Hx Chewing Tobacco Use: No Initiated information on smoking cessation: Yes 'Breaking Loose' booklet given: 02/22/18 - Substance & Tx. History Hx Alcohol Use: Yes Hx Substance Use: Yes Substance Use Type: Alcohol Hx Substance Use Treatment: Yes ([facility] March 2017) - Substances Abused Alcohol Route: Oral Frequency: 3-6 times per week Amount used: 1 litter of vodka Age of first use: 16 Date of Last Use: 02/20/18 Family Disease History - Family Disease History Family Disease History: Diabetes: Father (alive ) Admission Physical Exam S - Vital Signs Vital Signs: Vital Signs - 24 hr 02/22/18 22:39 Temperature 97.7 F Pulse Rate 106 H Respiratory 18 Rate Blood Pressure 160/100 - Physical General Appearance: Yes: Appropriately Dressed, Sweating, Anxious HEENTM: Yes: EOMI, Hearing grossly Normal, Normal ENT Inspection, Normocephalic , Normal Voice, CARYL, Pharynx Normal, Tm's normal Respiratory: Yes: Chest Non-Tender, Normal Breath Sounds, No Respiratory Distress, No Accessory Muscle Use Neck: Yes: No masses,lesions,Nodules, Trachea in good position Breast: Yes: Breast Exam Deferred Cardiology: Yes: Regular Rhythm, Regular Rate Abdominal: Yes: Normal Bowel Sounds, Non Tender, Flat, Soft Genitourinary: Yes: Within Normal Limits Back: Yes: Normal Inspection Musculoskeletal: Yes: full range of Motion, Gait Steady, Pelvis Stable Extremities: Yes: Tremors Neurological: Yes: Motor Strength 5/5, Depressed Affect Lymphatic: Yes: Within Normal Limits - Diagnostic (1) Psoriasis Current Visit: Yes Status: Chronic (2) Elevated blood pressure reading with diagnosis of hypertension Current Visit: Yes Status: Acute (3) Depression Current Visit: Yes Status: Acute Qualifiers: Depression Type: dysthymia Qualified Code(s): F34.1 - Dysthymic disorder (4) Elevated blood sugar level Current Visit: Yes Status: Acute (5) Alcohol dependence with uncomplicated withdrawal Current Visit: Yes Status: Acute (6) Diarrhea Current Visit: Yes Status: Acute (7) Hypertension Current Visit: Yes Status: Chronic Qualifiers: Hypertension type: essential hypertension Qualified Code(s): I10 - Essential (primary) hypertension (8) Low back pain Current Visit: Yes Status: Chronic Qualifiers: Chronicity: chronic Back pain laterality: bilateral Sciatica presence: with sciatica Sciatica laterality: bilateral sciatica Qualified Code(s): M54.42 - Lumbago with sciatica, left side (9) Psoriasis Current Visit: No Status: Chronic (10) Type II diabetes with correction use of insulin Current Visit: Yes Status: Chronic Qualifiers: Diabetes mellitus complication status: without complication Qualified Code( s): E11.9 - Type 2 diabetes mellitus without complications (11) Cirrhosis of liver Current Visit: Yes Status: Chronic Qualifiers: Hepatic cirrhosis type: unspecified hepatic cirrhosis Ascites presence: without ascites Qualified Code(s): K74.60 - Unspecified cirrhosis of liver (12) Weight loss Current Visit: Yes Status: Acute Cleared for Admission [facility] - Detox or Rehab S Level of Care: Medically Managed Detox Regimen/Protocol: Librium BHS Breath Alcohol Content Breath Alcohol Content: 0.218 Urine Drug Screen - Results Drug Screen Negative: No Urine Drug Screen Results: TCA-Tricyclic Antidepress
[2018-02-22] MEDS ORDERED: guaiFENesin/D-METHORPHAN HB 10 ML UNIT-DOSE CUPS PO PRN (23:19)
[2018-02-22] MEDS ORDERED: MAGNESIUM CITRATE 300 ML BOTTLE PO PRN (23:19)
[2018-02-22] MEDS ORDERED: IBUPROFEN 400 MG TABLET (FP) PO PRN (23:19)
[2018-02-22] MEDS ORDERED: hydrOXYzine PAMOATE 50 MG CAPSULE (FP) PO PRN (23:19)
[2018-02-22] MEDS ORDERED: MENTHOL/PHENOL 1 EACH UD MM PRN (23:19)
[2018-02-22] MEDS ORDERED: MAGNESIUM HYDROX 2400MG/30ML ORAL SUSPENSION 30 ML CUP PO PRN (23:19)
[2018-02-22] MEDS ORDERED: chlordiazePOXIDE HCL 25 MG CAPSULE PO PRN (23:19)
[2018-02-22] MEDS ORDERED: P-EPHED 60MG/TRIPROLIDI 2.5MG TABLET PO PRN (23:19)
[2018-02-22] MEDS ORDERED: ACETAMINOPHEN 325 MG TABLET (FP) PO PRN (23:19)
[2018-02-22] MEDS ORDERED: LOPERAMIDE HCL 2 MG CAPSULE PO PRN (23:19)
[2018-02-22] MEDS ORDERED: chlordiazePOXIDE HCL 25 MG CAPSULE PO ONE (23:19)
[2018-02-22] MEDS ORDERED: MAG HYDROX/AL HYDROX/SIMETH 30 ML UNIT-DOSE CUP PO PRN (23:19)
[2018-02-23] MEDS: chlordiazePOXIDE HCL 25 MG CAPSULE PO SCH ×5 (00:43→23:24)
[2018-02-23] MEDS: INSULIN SLIDING SCALE (NOVOLOG) 1 VIAL SQ SCH ×4 (00:47→17:44)
[2018-02-23 01:29] LABS: URINE APPEARANCE SLCLOUDY; URINE BILIRUBIN NEGATIVE (<2.0 mg/dL); URINE BLOOD 3+ (NEGATIVE); URINE COLOR YELLOW; URINE GLUCOSE (UA) NEGATIVE (NEGATIVE); URINE KETONE NEGATIVE (NEGATIVE); URINE LEUK ESTERASE NEGATIVE (NEGATIVE); URINE NITRITE NEGATIVE (NEGATIVE); URINE UROBILINOGEN NEGATIVE mg/dL (0.2-1.0)
[2018-02-23 01:43] LABS: URINE PROTEIN 2+ (NEGATIVE)
[2018-02-23 01:57] LABS: EPI CELLS RARE /HPF (FEW); URINE HYALINE CAST 1 /lpf; URINE MUCUS RARE
[2018-02-23] MEDS ORDERED: PRENATAL VITAMINS W/ FOLIC ACID TABLET (FP) PO SCH (10:00)
[2018-02-23] MEDS ORDERED: LISINOPRIL 20 MG TABLET (FP) PO SCH (10:00)
[2018-02-23] MEDS ORDERED: amLODIPine BESYLATE 10 MG TABLET (FP) PO SCH (10:00)
--- NOTE | 2018-02-23 10:03 | EKG ---
Test Reason : Blood Pressure : / mmHG Vent. Rate : 092 BPM Atrial Rate : 092 BPM P-R Int : 180 ms QRS Dur : 086 ms QT Int : 374 ms P-R-T Axes : 039 022 044 degrees QTc Int : 462 ms NORMAL SINUS RHYTHM Possible right ventricular hypertrophy Suspect incorrect lead placment of anterior precordial leads Confirmed by YOLI JONES MD ([id number]) on 02/23/2018 10:03:29 AM Referred By: Confirmed By:YOLI JONES MD
[2018-02-23 10:23] LABS: HEMATOCRIT 22.4 % (35.4-49); HEMOGLOBIN 7.6 GM/dL (11.7-16.9); MCHC 33.9 g/dl (32.0-35.9); MEAN CELL VOLUME 88.7 fl (80-96); MEAN PLT VOLUME 10.1 fl (7.5-11.1); PLATELET COUNT 46 K/MM3 (134-434); RBC 2.52 M/mm3 (4.00-5.60); RDW 18.5 % (11.9-15.9); WHITE BLOOD COUNT 2.8 K/mm3 (4.0-10.0)
[2018-02-23 10:27] LABS: ALBUMIN 1.9 g/dl (3.4-5.0); ANION GAP 11 (8-16); BLOOD UREA NITROGEN 52 mg/dL (7-18); CALCIUM 7.4 mg/dL (8.5-10.1); CHLORIDE 115 mmol/L (98-107); CO2 20 mmol/L (21-32); CREATININE 4.2 mg/dL (0.7-1.3); GLUCOSE,RANDOM 115 mg/dL (74-106); POTASSIUM 3.8 mmol/L (3.5-5.1); SGOT/AST 67 U/L (15-37); SGPT/ALT 35 U/L (12-78); SODIUM 146 mmol/L (136-145)
[2018-02-23 10:30] LABS: ALK PHOS 175 U/L (45-117); BILIRUBIN,TOTAL 0.4 mg/dL (0.2-1.0); TOT PROT 5.1 g/dl (6.4-8.2)
[2018-02-23] MEDS: FLUOCINONIDE 0.05% TOP OINT (60 GM TUBE) TP SCH ×2 (10:46→23:25)
--- NOTE | 2018-02-23 11:30 | PN ---
S CIWA - CIWA Score Nausea/Vomitin Muscle Tremors: 3 Anxiety: 3 Agitation: 3 Paroxysmal Sweats: 1-Minimal Palms Moist Orientation: 0-Oriented Tacttile Disturbances: 1-Very Mild Itch/Numbness Auditory Disturbances: 1-Very Mild Visual Disturbances: 0-None Headache: 2-Mild CIWA-Ar Total Score: 17 BHS Progress Note (SOAP) Subjective: ALERT,IRRITABLE,ANXIOUS,INTERRUPTED SLEEP,TREMOR.PAIN IN THE BODY Objective: 02/23/18 11:24 Vital Signs Temperature 98.1 F 02/23/18 10:00 Pulse Rate 85 02/23/18 10:00 Respiratory Rate 14 02/23/18 10:00 Blood Pressure 151/90 02/23/18 10:00 O2 Sat by Pulse Oximetry (%) EKG NSR Laboratory Last Values WBC 2.8 K/mm3 (4.0-10.0) L D 02/23/18 08:00 RBC 2.52 M/mm3 (4.00-5.60) L 02/23/18 08:00 Hgb 7.6 GM/dL (11.7-16.9) L D 02/23/18 08:00 Hct 22.4 % (35.4-49) L 02/23/18 08:00 MCV 88.7 fl (80-96) 02/23/18 08:00 MCH 30.0 pg (25.7-33.7) 02/23/18 08:00 MCHC 33.9 g/dl (32.0-35.9) 02/23/18 08:00 RDW 18.5 % (11.9-15.9) H 02/23/18 08:00 Plt Count 46 K/MM3 (134-434) L 02/23/18 08:00 MPV 10.1 fl (7.5-11.1) 02/23/18 08:00 Sodium 146 mmol/L (136-145) H 02/23/18 08:00 Potassium 3.8 mmol/L (3.5-5.1) 02/23/18 08:00 Chloride 115 mmol/L (98-107) H 02/23/18 08:00 Carbon Dioxide 20 mmol/L (21-32) L 02/23/18 08:00 Anion Gap 11 (8-16) 02/23/18 08:00 BUN 52 mg/dL (7-18) H D 02/23/18 08:00 Creatinine 4.2 mg/dL (0.7-1.3) H D 02/23/18 08:00 Creat Clearance w eGFR 15.42 (>60) 02/23/18 08:00 POC Glucometer 127 UNITS (80-120) 02/23/18 05:16 Random Glucose 115 mg/dL (74-106) H D 02/23/18 08:00 Calcium 7.4 mg/dL (8.5-10.1) L 02/23/18 08:00 Total Bilirubin 0.4 mg/dL (0.2-1.0) D 02/23/18 08:00 AST 67 U/L (15-37) H D 02/23/18 08:00 ALT 35 U/L (12-78) D 02/23/18 08:00 Alkaline Phosphatase 175 U/L (45-117) H D 02/23/18 08:00 Total Protein 5.1 g/dl (6.4-8.2) L 02/23/18 08:00 Albumin 1.9 g/dl (3.4-5.0) L 02/23/18 08:00 Urine Color Yellow 02/23/18 00:11 Urine Appearance Slcloudy 02/23/18 00:11 Urine pH 5.0 (5.0-8.0) 02/23/18 00:11 Ur Specific [place] 1.014 (1.001-1.035) 02/23/18 00:11 Urine Protein 2+ (NEGATIVE) H 02/23/18 00:11 Urine Glucose (UA) Negative (NEGATIVE) 02/23/18 00:11 Urine Ketones Negative (NEGATIVE) 02/23/18 00:11 Urine Blood 3+ (NEGATIVE) H 02/23/18 00:11 Urine Nitrite Negative (NEGATIVE) 02/23/18 00:11 Urine Bilirubin Negative (<2.0 mg/dL) 02/23/18 00:11 Urine Urobilinogen Negative mg/dL (0.2-1.0) 02/23/18 00:11 Ur Leukocyte Esterase Negative (NEGATIVE) 02/23/18 00:11 Urine WBC (Auto) 8 /hpf (3-5) 02/23/18 00:11 Urine RBC (Auto) 61 /hpf (0-3) 02/23/18 00:11 Ur Epithelial Cells Rare /HPF (FEW) 02/23/18 00:11 Hyaline Casts 1 /lpf 02/23/18 00:11 Urine Mucus Rare 02/23/18 00:11 Assessment: 02/23/18 11:26 WITHDRAWAL SYMPTOM Plan: CONTINUE DETOX,PANCYTOPENIA MOST PROBABLY FROM CIRRHOSIS,BUN 42,CREATININE 4.2, RENAL INSUFFICIENCY ENCOURAGE ORAL FLUID,REPEAT CBC,CMP,IN AM,SERUM IRON,TBIC,FOLIC ACID, RETICULOCYT COUNT, FERROUS SULFATE 325 MGS PO BID ENCOURAGE ORAL FLUID,
[2018-02-23] MEDS: FERROUS SO4 325 MG TABLET (FP) PO SCH ×2 (12:44→17:03)
--- NOTE | 2018-02-23 14:09 | CONSULT ---
[facility] Psychiatric Consult - Data Date of interview: 02/23/18 Admission source: [facility] Identifying data: Another admission to [facility] for this 47 y/o male seeking detox treatment on for alcohol dependence.Patient is ,a father of two,homeless,unemployed and supported on food stamps. Substance Abuse History: Patient confirms current use of alcohol.See this [facility] report for details : Smoking history: Current every day smoker. Have you smoked in the past 12 months: Yes. Aproximately how many cigarettes per day: 1. Cigars Per Day: 0. Hx Chewing Tobacco Use: No. Initiated information on smoking cessation: Yes. 'Breaking Loose' booklet given: 02/22/18. - Substance & Tx. History. Hx Alcohol Use: Yes. Hx Substance Use: Yes. Substance Use Type : Alcohol. Hx Substance Use Treatment: Yes ([facility] March 2017). - Substances Abused. Alcohol. Route: Oral. Frequency: 3-6 times per week. Amount used : 1 litter of vodka. Age of first use: 16. Date of Last Use: 02/20/18 Medical History: Psoriasis,hypertension,cholelithiasis,arthritis,chronic lumbar pain,diabetes mellitus,cirrhosis of liver and a history of dislocation of right shoulder (six years ago). Psychiatric History: Patient admits to two psychiatric hospitalizationsin 2018 ( [facility] and [facility]).Diagnosed with MDD and prescribed seroquel 300 mg/hs + prozac 20 mg/day as per self-report.Mr Martinez states that he goes to the [facility]PD clinic for his psychiatric aftercare.Endorses a history of two suicide attempts (wrist-cutting + pica behavior : deliberate ingestion of razor blades five months ago). Physical/Sexual Abuse/Trauma History: Patient declines to discuss this domain. Additional Comment: Urine Drug Screen Results: TCA-Tricyclic Antidepressant.Noted. Mental Status Exam - Mental Status Exam Alert and Oriented to: Time, Person Mood: Nervous, Withdrawn Affect: Mood Congruent Patient Behavior: Cooperative Voice Loudness: Normal Thought Process: Goal Oriented Thought Disorder: Not Present Hallucinations: Denies Suicidal Ideation: Denies Homicidal Ideation: Denies Insight/Judgement: Poor Sleep: Poorly, Difficulty falling asleep Appetite: Good Muscle strength/Tone: Normal Gait/Station: Normal Psychiatric Findings - Problem List ([place] 1, 2,3) (1) Alcohol dependence with uncomplicated withdrawal Current Visit: Yes Status: Acute (2) Nicotine dependence Current Visit: Yes Status: Acute Qualifiers: Nicotine product type: cigarettes Substance use status: uncomplicated Qualified Code(s): F17.210 - Nicotine dependence, cigarettes, uncomplicated (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
[2018-02-23] MEDS ORDERED: metFORMIN HCL 500 MG TABLET (FP) PO SCH (16:30)
[2018-02-23] MEDS ORDERED: THIAMINE HCL 100 MG TABLET (FP) PO SCH (22:00)
[2018-02-23] MEDS ORDERED: QUEtiapine FUMARATE 200 MG TABLET PO SCH (22:00)
[2018-02-24] MEDS ORDERED: cloNIDine HCL 0.1 MG TABLET PO ONE (00:54)
--- NOTE | 2018-02-24 00:55 | PN ---
[facility] Progress Note Note: Patient's blood pressure as reported by Ms. Niko Ivory RN is B/P 172/103. Patient is asymptomatic. Clonidine 0.1mg tablet oral given.
[2018-02-24] MEDS: chlordiazePOXIDE HCL 25 MG CAPSULE PO SCH (06:23)
--- NOTE | 2018-02-24 06:36 | PN ---
[facility] Progress Note Note: I was called by Ms. Niko Ivory RN to evaluate patient who was difficult to arouse. Patient was seen and evaluated in bedside. He is incontinent of urine and feces and responds intermittently to vigorous shaking. He has medical history of HTN, DM type 2, depression, cirrhosis of the liver and suicide attempt 5 months ago. Vitals: B/P 149/99, HR 93, RR 20, T 97.2F and blood sugar 129mg/dl. Patient is to be transferred to ER for further evaluation. Endorsed to DR. Chetan Mariscal
[2018-02-24 06:50] VITALS: BP 180/97; PULSE 87; TEMP 97.2
[2018-02-24] MEDS: INSULIN SLIDING SCALE (NOVOLOG) 1 VIAL SQ SCH (06:50)
[2018-02-24] MEDS ORDERED: Lacosamide 200 MG/20 ML VIAL IVPB SCH (10:45)
[2018-02-24] MEDS ORDERED: CHLORHEXIDINE GLUCONATE 4% CLEANSER FOR DECOLONIZATION TP SCH (22:00)
[2018-02-24] MEDS ORDERED: MUPIROCIN 2% TOPICAL OINTMENT FOR DECOLONIZATION NS SCH (22:00)
[2018-02-24] MEDS ORDERED: chlordiazePOXIDE 5 MG CAPSULE PO SCH (23:00)
[2018-02-25] MEDS ORDERED: PANTOPRAZOLE SODIUM 40 MG VIAL IVPUSH SCH (10:00)
[2018-02-25] MEDS ORDERED: chlordiazePOXIDE HCL 10 MG CAPSULE PO SCH (23:00)
== END 2018-02-24 14:22 | disposition short-term general hospital (02) | DRG 775 ==
LOC: YASAS 19:28 → Y6N 23:16
PROVIDERS: ADMIT Internal Medicine; ATTEND Internal Medicine
PROC: HZ2ZZZZ Detoxification Services for Substance Abuse Treatment (ICD-10-PCS; principal; 2018-02-22)
DX: F10.230 Alcohol dependence with withdrawal, uncomplicated (principal); F17.210 Nicotine dependence, cigarettes, uncomplicated; F10.24 Alcohol dependence with alcohol-induced mood disorder; F32.9 Major depressive disorder, single episode, unspecified; G47.00 Insomnia, unspecified; I10 Essential (primary) hypertension; Z91.14 Patient's other noncompliance with medication regimen; E11.9 Type 2 diabetes mellitus without complications; Z79.84 Long term (current) use of oral hypoglycemic drugs; K74.60 Unspecified cirrhosis of liver; M54.41 Lumbago with sciatica, right side; M54.42 Lumbago with sciatica, left side; R63.4 Abnormal weight loss; Z68.32 Body mass index [BMI] 32.0-32.9, adult; Z91.5 Personal history of self-harm; Z59.0 Homelessness
CPT/HCPCS: 36415; 80053; 81003; 81015; 82962; 85027; 86593; 93005; 93010; J0735

== ENCOUNTER 2018-02-24 06:48 | Inpatient (IN) | payer OTHER ==
--- NOTE | 2018-02-24 07:31 | PDOC ---
Attending Attestation - Resident Resident Name: Elijah Carrera - ED Attending Attestation I have performed the following: I have examined & evaluated the patient, The case was reviewed & discussed with the resident, I agree w/resident's findings & plan, Exceptions are as noted - HPI HPI: 02/24/18 07:26 Mr Martinez is a 47 yo M with a h/o alcohol abuse, cirrhosis, DM type 2, HTN, severe depression He was brought to the ER from [facility] due to altered mental state Pt was admitted to [facility] on 02/22 for detox from alcohol withdrawal He was last seen at midnight, reportedly fine, Clonidine 0.1mg administered He was then assessed at 6:22am and noted to be somnolent He is unresponsive to my questions with the exception of grunting He was apparently incontinent of both urine and stool chart evaluation, no documented history of seizure 02/24/18 07:32 02/24/18 07:35 - Physicial Exam PE: 02/24/18 07:35 Upon my assessment, the patient has open eyes pupils are 5mm bilaterally and reactive Moving eyes spontaneously RRR, no murmur Lungs are clear to auscultation No abdominal distention No bruising noted No lower extremity edema Neuro: Pt is unresponsive to verbal stimuli, pt responds to painful stimuli by grimacing 02/24/18 07:35 - Medical Decision Making 02/24/18 07:37 Mr Padilla presents to the ER due to depression, ETOH abuse, Cirrhosis, DM Presents to the ER with altered mental status 02/24/18 07:39 02/24/18 07:40 Selected Entries 02/24/18 06:54 Temperature 97.6 F Pulse Rate 99 H Blood Pressure 178/82 O2 Sat by Pulse 100 Oximetry (%) Unclear cause ?non convulsive Seizure, postictal state, hepatic encephalopathy, ICH/mass/ Ischemia, drug overdose will do: Labs CT head stat continuous monitor Admit 02/24/18 07:41 EKG: SR rate of 95 bpm, axis nml, intervals nml 02/24/18 08:52 Laboratory Tests 02/23/18 02/23/18 02/24/18 08:00 08:00 07:12 WBC 2.8 L D 3.9 L D Hgb 7.6 L D 9.6 L D Hct 22.4 L 28.2 L D Plt Count 46 L 61 L D Sodium Potassium Chloride Carbon Dioxide BUN 52 H D Creatinine 4.2 H D Random Glucose 115 H D Ammonia Creatine Kinase Troponin I Salicylates Acetaminophen Alcohol, Quantitative 02/24/18 02/24/18 02/24/18 07:12 07:12 08:20 WBC Hgb Hct Plt Count Sodium 144 Potassium 4.2 Chloride 117 H Carbon Dioxide 17 L BUN 46 H Creatinine 3.4 H Random Glucose 119 H Ammonia 206.76 H Creatine Kinase 120 Troponin I < 0.02 Salicylates < 1.700 Acetaminophen 2.748 Alcohol, Quantitative < 5.0 Ammonia elevated (? hepatic encephalopathy vs Valproic Acid overdose) NGT placed Lactulose ordered Admit to hospitalist service Of note, new renal insufficiency Will hydrate Renal insufficiency due to dehydration vs ? Hepatorenal syndrome? 02/24/18 14:06 Pt seen in the ER by Neuro Recommends MRI Recommends adding Vimpat 100mg to total 200mg IV loading dose Differential broad - non convuslive status epilepticus, hepatic encephalopathy, CVA Pt ordered for Lactulose q hr via NGt 02/24/18 14:06 Case reviewed with poison control did not recommend NAC Will review with Fellow Awaiting call back MRI ordered Pt apparently had a gastric tube which may be a contraindication Clinical Impression: Hepatic encephalopathy vs non convulsive status epilepticus This patient remains critically ill Discharge Disposition - Diagnosis Hepatic encephalopathy - Discharge Dispostion Condition at time of disposition: Guarded Last Admission D/C Date: 09/27/17 - Referrals - Patient Instructions - Post Discharge Activity Critical Care Time/[facility] Note Total Critical Care Time: 120 Critical Care Statement: The care of this patient involved high complexity decision making to prevent further life threatening deterioration of the patient 's condition and/or to evaluate & treat vital organ system(s) failure or risk of failure.
[2018-02-24 07:38] LABS: BASO % 0.9 % (0-2.0); EOS % 1.8 % (0-4.5); HEMATOCRIT 28.2 % (35.4-49); HEMOGLOBIN 9.6 GM/dL (11.7-16.9); LYMPH % 21.9 % (8-40); MEAN CELL VOLUME 88.2 fl (80-96); MEAN PLT VOLUME 10.1 fl (7.5-11.1); MONO % 14.3 % (3.8-10.2); NEUT % 61.1 % (42.8-82.8); PLATELET COUNT 61 K/MM3 (134-434); RDW 18.1 % (11.9-15.9); WHITE BLOOD COUNT 3.9 K/mm3 (4.0-10.0)
[2018-02-24 07:47] LABS: INR 1.02 (0.82-1.09); PROTHROMBIN TIME (PATIENT) 11.5 SEC (9.98-11.88)
[2018-02-24 08:05] LABS: SALICYLATE < 1.700 mg/dL
[2018-02-24 08:08] LABS: ACETAMINOPHEN 2.748 ug/mL
[2018-02-24 08:11] LABS: ALBUMIN 2.2 g/dl (3.4-5.0); ANION GAP 10 (8-16); BILIRUBIN,TOTAL 0.6 mg/dL (0.2-1.0); BLOOD UREA NITROGEN 46 mg/dL (7-18); CALCIUM 7.8 mg/dL (8.5-10.1); CHLORIDE 117 mmol/L (98-107); CO2 17 mmol/L (21-32); CREATININE 3.4 mg/dL (0.7-1.3); GLUCOSE,RANDOM 119 mg/dL (74-106); POTASSIUM 4.2 mmol/L (3.5-5.1); SGOT/AST 62 U/L (15-37); SGPT/ALT 41 U/L (12-78); SODIUM 144 mmol/L (136-145)
[2018-02-24 08:14] LABS: ALK PHOS 165 U/L (45-117)
--- NOTE | 2018-02-24 08:17 | PDOC ---
History of Present Illness - General Chief Complaint: Seizure Stated Complaint: SEIZURE Time Seen by Provider: 02/24/18 07:04 History Source: Old Records Exam Limitations: Clinical Condition - History of Present Illness Initial Comments: 02/24/18 08:12 Patient is a 47M with history of HTN, DM, depression, suicidal attempt 5 months ago after swallowing razors, cirrhosis, and alcohol abuse sent here from [facility] for altered mental status. He was found down in his bed by nursing this morning, last known well was 12:30am. He was found with urinary and fecal incontinence. Glucose was 129. Patient was not responding to commands, but was withdrawing from pain. Patient is not able to contribute to history. Past History - Past Medical History Allergies/Adverse Reactions: Allergies Allergy/AdvReac Type Severity Reaction Status Date / Time shellfish derived Allergy Severe Swelling Verified 02/24/18 06:59 No Known Drug Allergies Allergy Verified 02/24/18 06:59 NKDA Allergy Uncoded 02/24/18 06:59 Home Medications: Ambulatory Orders Escitalopram Oxalate [Lexapro -] 20 mg PO DAILY 04/28/17 Quetiapine Fumarate [Seroquel] 100 mg PO HS 04/28/17 Amlodipine Besylate [Norvasc -] 10 mg PO DAILY #30 tab 05/11/17 Fluoxetine HCl [Prozac -] 20 mg PO DAILY #30 tab 05/11/17 Calcium 500Mg/Vit-D 200 Units [Os-[place] 500+D -] 1 tab PO DAILY #30 tab 09/27/17 Folic Acid - 1 mg PO DAILY #30 tablet 09/27/17 Lisinopril [Prinivil] 20 mg PO DAILY #30 tablet 09/27/17 Multivitamin [One Daily] 1 each PO DAILY #30 tablet 09/27/17 Thiamine HCl [Vitamin B1 -] 100 mg PO DAILY #30 tablet 09/27/17 Anemia: No Asthma: No Cancer: No Cardiac Disorders: Yes CVA: No COPD: No CHF: No Dementia: No Diabetes: Yes GI Disorders: Yes (cirrhosis etoh abuse) Disorders: No HTN: Yes Hypercholesterolemia: No Kidney Stones: No Liver Disease: Yes (CIRRHOSIS OF LIVER) Psychiatric Problems: Yes (DEPRESSION, ANXEITY) Seizures: No Thyroid Disease: No - Surgical History Abdominal Surgery: No Appendectomy: No Cardiac Surgery: No Cholecystectomy: No Lung Surgery: No Neurologic Surgery: No Orthopedic Surgery: Yes (right shoulder due to dislocation 6 years ago) - Family Disease History Family Disease History: Heart Disease: Mother - Reproductive History Testicular Surgery: No - Immunization History Immunization Up to Date: Yes - Suicide/Smoking/Psychosocial Hx Smoking Status: No Smoking History: Current some day smoker Have you smoked in the past 12 months: No Number of Cigarettes Smoked Daily: 2 If you are a former smoker, when did you quit?: 2010 Cigars Per Day: 0 Information on smoking cessation initiated: No 'Breaking Loose' booklet given: 02/22/18 Hx Alcohol Use: Yes Drug/Substance Use Hx: No Substance Use Type: Alcohol Hx Substance Use Treatment: Yes ([facility] March 2017) Review of Systems - Review of Systems Able to Perform ROS?: No (2/2 clinical condition) *Physical Exam - Vital Signs Last Vital Signs Temp Pulse Resp BP Pulse Ox 97.6 F 99 H 22 178/82 100 02/24/18 06:54 02/24/18 06:54 02/24/18 06:54 02/24/18 06:54 02/24/18 06:54 - Physical Exam Comments: 02/24/18 08:16 GENERAL: Awake, mumbling, non-verbal, holding hand to face, lip-smacking repeatedly HEAD: No signs of trauma, normocephalic, atraumatic EYES: PERRLA, EOMI, sclera anicteric, conjunctiva clear ENT: Auricles normal inspection, hearing grossly normal, nares patent, oropharynx clear without exudates. Moist mucosa NECK: Normal ROM, supple, no lymphadenopathy, JVD, or masses LUNGS: No distress, clear to auscultation bilaterally HEART: Regular rate and rhythm, normal S1 and S2, no murmurs, rubs or gallops, peripheral pulses normal and equal bilaterally. ABDOMEN: Soft, nontender, normoactive bowel sounds. No guarding, no rebound. No masses EXTREMITIES: Normal inspection, Normal range of motion, no edema. No clubbing or cyanosis. NEUROLOGICAL: Cranial nerves II through XII grossly intact. Moving left arm, left leg, and right leg, not moving right arm. SKIN: Warm, Dry, normal turgor, no rashes or lesions noted. ED Treatment Course - LABORATORY CBC & Chemistry Diagram: 02/24/18 07:12 02/24/18 14:45 - ADDITIONAL ORDERS Additional order review: Laboratory Results 02/24/18 07:12 PT with INR 11.50 INR 1.02 - RADIOLOGY Radiology Studies Ordered: Category Date Time Status HEAD CT WITHOUT CONTRAST [CT] Stat CT Scan 02/24/18 07:15 Taken CHEST X-RAY PORTABLE* [RAD] Stat Radiology 02/24/18 07:14 Ordered Medical Decision Making - Medical Decision Making 02/24/18 08:18 Patient is 47M with history of HTN, DM, Depression, suicide attempt 5 months ago , cirrhosis and alcohol abuse here today with altered mental status. Vital signs stable and normal. Differential diagnosis includes, but is not limited to : seizure, intox, overdose, head bleed, stroke. Last known well 7 hours prior to presentation, outside of any tPA window. Patient sent to CT. Will also workup with cbc, cmp, trop, ekg, pt/inr, ammonia level, salicylates, tyelnol level, etoh level, drug screen, cxr. Wet read of head CT shows no head bleed. 02/24/18 09:15 Laboratory Tests 02/24/18 02/24/18 02/24/18 07:12 07:12 07:12 WBC 3.9 L D Hgb 9.6 L D Hct 28.2 L D Plt Count 61 L D Carbon Dioxide 17 L Creatinine 3.4 H Lactic Acid 1.1 Ammonia Creatine Kinase 120 Troponin I < 0.02 02/24/18 08:20 WBC Hgb Hct Plt Count Carbon Dioxide Creatinine Lactic Acid Ammonia 206.76 H Creatine Kinase Troponin I CBC shows anemia. Cr 3.4, down from 4.2 yesterday but still elevated above baseline. Lactic acid 1.1 and CK normal, do not suspect seizure. Ammonia markedly elevated. Started lactulose through ng tube. Warner placed to manage I& Os given patient's renal status. Started on fluids. Low carbon dioxide level, will do ABG to further evaluate acid-base status. 02/24/18 09:[address] and Chest X-ray negative for acute pathology. EKG shows normal sinus rhythm with rate of 95. No st elevations/depressions. Poor baseline. No significant t wave abnormalities appreciated. Normal IN/QRS/ QTc intervals. 02/24/18 09:43 Called over to evaluate patient for seizure activity. Patient moving arm up to face in rhythm motion, responds to pain. Patient's airway re-valuated. Snoring, swallowing. Concern for aspiration risk given altered status, but believe that patient is protecting his airway sufficiently at this time. Will admit to ICU, approved for ICU. 02/24/18 19:23 MRI cancelled due to stent in bile duct of unknown type. Medicine notified via [facility] [employer]. *DC/Admit/Observation/Transfer Diagnosis at time of Disposition: Hepatic encephalopathy - Discharge Dispostion Condition at time of disposition: Guarded Admit: Yes - Referrals - Patient Instructions - Post Discharge Activity
[2018-02-24] MEDS ORDERED: LACTULOSE 20 GM/30 ML UDC (FOR ORAL USE ONLY) PO ONE (08:29)
[2018-02-24] MEDS ORDERED: LACTULOSE 20 GM/30 ML UDC (FOR ORAL USE ONLY) ONE ×4 (08:41→17:56)
[2018-02-24] MEDS ORDERED: LACTATED RINGERS SOLUTION 1000 ML INFUS.BAG IV ONE (08:43)
[2018-02-24] MEDS ORDERED: SODIUM CHLORIDE 1,000 ML IV STA ×2 (08:46→15:40)
[2018-02-24 09:03] LABS: ARTERIAL BLD GAS O2 SATURATION 99.5 % (90-98.9); ARTERIAL BLOOD GAS PCO2 24.8 mmHg (35-45); ARTERIAL BLOOD GAS pH 7.42 (7.35-7.45)
[2018-02-24 09:13] LABS: ALLENS TEST POSITIVE
[2018-02-24 09:14] LABS: URINE APPEARANCE CLEAR; URINE BILIRUBIN NEGATIVE (<2.0 mg/dL); URINE COLOR YELLOW; URINE GLUCOSE (UA) NEGATIVE (NEGATIVE); URINE KETONE NEGATIVE (NEGATIVE); URINE LEUK ESTERASE NEGATIVE (NEGATIVE); URINE NITRITE NEGATIVE (NEGATIVE); URINE UROBILINOGEN NEGATIVE mg/dL (0.2-1.0)
[2018-02-24 09:17] LABS: URINE PROTEIN 2+ (NEGATIVE)
[2018-02-24 09:19] LABS: URINE BACTERIA FEW /hpf (NONE SEEN)
[2018-02-24 09:23] LABS: COCAINE, UR NEGATIVE ng/ml (CUTOFF=300); METHADONE, UR NEGATIVE ng/ml (CUTOFF=300); OPIATES, URI NEGATIVE ng/ml (CUTOFF=300); PHENCYCLIDINE,URINE NEGATIVE ng/ml (CUTOFF=25); URINE AMPHETAMINES NEGATIVE ng/ml (CUTOFF=500); URINE BARBITURATES NEGATIVE ng/ml (CUTOFF=200)
[2018-02-24 09:35] LABS: URINE BENZODIAZEPINES POSITIVE ng/ml (CUTOFF=200)
[2018-02-24] MEDS ORDERED: Lacosamide 200 MG/20 ML VIAL IVPB ONE ×2 (10:20→13:50)
--- NOTE | 2018-02-24 11:01 | HP ---
CHIEF COMPLAINT: Encephalopathy, r/o seizure PCP: Unknown at this time HISTORY OF PRESENT ILLNESS: 47 yo man w/ pmh of ETOH abuse, HTN, ?NIDDM, depression, HLD and prior suicide attempt, cirrhosis (2/2 ETOH use, S/p TIPS per prior note), who presents obtunded with possible seizure this AM from [facility], currently undergoing detox program for alcohol abuse. Per nursing at facility, pt was last at baseline at 1230 AM last night, was discovered later this morning obtunded with urinary and fecal incontinence. Pt was nonresponsive to commands, but moving all extremities, withdrawing to pain, BG at the time was 129. Pt with no documented prior hx of epilepsy. Pt was BIBEMS from [facility], remained altered in ED, nonverbal, grunting, but withdrawing to pain still. In ED, ABG 7.42/24/148, pt protecting airway. CT negative for bleed or pathology. Ammonia noted to be 206. Pt with hx of cirrhosis secondary to alcohol abuse. NG tube placed, pt received 1L LR, 20mg lactulose via NG tube, vimpat 100mg, and Ativan 1mg IV. Warner placed. Lactic acid, CK normal. Pt noted with rhythmic R eye deviation and moving L arm to mouth. Admitted to ICU. ER course was notable for: (1)Received Vimpat x1, NG tube placed (2)ABG 7.42/24/148 (3)Ammonia 206 (4)Head CT negative Recent Travel: None PAST MEDICAL HISTORY: HTN DM2 Depression Suicide attempt 5 months ago cirrhosis EtOH abuse PAST SURGICAL HISTORY: R shoulder dislocation repair Social History: Smoking: current smoker Alcohol: yes, Drugs: No Family History: Unable to obtain Allergies shellfish derived Allergy (Severe, Verified 02/24/18 06:59) Swelling No Known Drug Allergies Allergy (Verified 02/24/18 06:59) NKDA Allergy (Uncoded 02/24/18 06:59) HOME MEDICATIONS: Home Medications Medication Instructions Recorded Escitalopram Oxalate [Lexapro -] 20 mg PO DAILY 04/28/17 Quetiapine Fumarate [Seroquel] 100 mg PO HS 04/28/17 Amlodipine Besylate [Norvasc -] 10 mg PO DAILY #30 tab 05/11/17 Fluoxetine HCl [Prozac -] 20 mg PO DAILY #30 tab 06/15/17 Calcium 500Mg/Vit-D 200 Units 1 tab PO DAILY #30 tab 09/27/17 [Os-Dennis 500+D -] Folic Acid - 1 mg PO DAILY #30 tablet 09/27/17 Lisinopril [Prinivil] 20 mg PO DAILY #30 tablet 09/27/17 Multivitamin [One Daily] 1 each PO DAILY #30 tablet 09/27/17 Thiamine HCl [Vitamin B1 -] 100 mg PO DAILY #30 tablet 09/27/17 REVIEW OF SYSTEMS Unable to obtain CONSTITUTIONAL: Absent: fever, chills, diaphoresis, generalized weakness, malaise, loss of appetite, weight change HEENT: Absent: rhinorrhea, nasal congestion, throat pain, throat swelling, difficulty swallowing, mouth swelling, ear pain, eye pain, visual changes CARDIOVASCULAR: Absent: chest pain, syncope, palpitations, irregular heart rate, lightheadedness , peripheral edema RESPIRATORY: Absent: cough, shortness of breath, dyspnea with exertion, orthopnea, wheezing, stridor, hemoptysis GASTROINTESTINAL: Absent: abdominal pain, abdominal distension, nausea, vomiting, diarrhea, constipation, melena, hematochezia GENITOURINARY: Absent: dysuria, frequency, urgency, hesitancy, hematuria, flank pain, genital pain MUSCULOSKELETAL: Absent: myalgia, arthralgia, joint swelling, back pain, neck pain SKIN: Absent: rash, itching, pallor HEMATOLOGIC/IMMUNOLOGIC: Absent: easy bleeding, easy bruising, lymphadenopathy, frequent infections ENDOCRINE: Absent: unexplained weight gain, unexplained weight loss, heat intolerance, cold intolerance NEUROLOGIC: +AMS Absent: headache, focal weakness or paresthesias, dizziness, unsteady gait, seizure, mental status changes, bladder or bowel incontinence PSYCHIATRIC: Absent: anxiety, depression, suicidal or homicidal ideation, hallucinations. PHYSICAL EXAMINATION Vital Signs - 24 hr Intake & Output 02/21/18 02/22/18 02/23/18 02/24/18 23:59 23:59 23:59 23:59 Output Total 500 Balance -500 Weight 113.398 kg 02/24/18 02/24/18 02/24/18 06:54 07:05 08:53 Temperature 97.6 F Pulse Rate 99 H Pulse Rate [ 81 Apical] Respiratory 22 18 Rate Blood Pressure 178/82 Blood Pressure 170/91 [Right Arm] O2 Sat by Pulse 100 100 100 Oximetry (%) 02/24/18 09:25 Temperature Pulse Rate Pulse Rate [ Apical] Respiratory Rate Blood Pressure Blood Pressure [Right Arm] O2 Sat by Pulse 100 Oximetry (%) GENERAL: Middle aged man, sitting in bed, obtunded, grunting HEENT: multiple small healed scabs on forehead EYES: R eye gaze deviation with slow phase toward midline and fast saccades toward R. Pupils equal, round and reactive to light, sclera anicteric, conjunctiva clear. No lid lag. EARS, NOSE, THROAT: Ears normal, nares patent, oropharynx clear without exudates. NECK: Grunting, snoring audible on auscultation. No JVD, supple LUNGS: Rhonchorous diffusely, No wheezes, and no crackles. No accessory muscle use. HEART: Regular rate and rhythm, normal S1 and S2 without murmur, rub or gallop. ABDOMEN: Soft, ND, normoactive bowel sounds. Obese. MUSCULOSKELETAL: Normal range of motion at all joints. No bony deformities or tenderness. UPPER EXTREMITIES: 2+ pulses, warm, well-perfused. No cyanosis. No clubbing. No peripheral edema. LOWER EXTREMITIES: 2+ pulses, warm, well-perfused. No calf tenderness. No peripheral edema. NEUROLOGICAL: somnolent, withdraws to pain, nonresponsive, eyes open. R arm flaccid, with notable myoclonus with arm drop. Moving L arm nonpurposely. No lower extremity movement. Unable to assess further. SKIN: Decreased skin turgor. Laboratory Results - last 24 hr CBC, BMP 02/24/18 07:12 02/24/18 07:12 02/24/18 02/24/18 02/24/18 07:12 07:12 07:12 WBC 3.9 L D RBC 3.20 L D Hgb 9.6 L D Hct 28.2 L D MCV 88.2 MCH 30.0 MCHC 34.0 RDW 18.1 H Plt Count 61 L D MPV 10.1 Neutrophils % 61.1 Lymphocytes % 21.9 Monocytes % 14.3 H Eosinophils % 1.8 Basophils % 0.9 PT with INR 11.50 INR 1.02 Puncture Site ABG pH ABG pCO2 at Pt Temp ABG pO2 at Pt Temp ABG HCO3 ABG O2 Sat (Measured) ABG O2 Content ABG Base Excess Luis Armando Test Oxygen Flow Rate Sodium 144 Potassium 4.2 Chloride 117 H Carbon Dioxide 17 L Anion Gap 10 BUN 46 H Creatinine 3.4 H Creat Clearance w eGFR 19.68 Random Glucose 119 H Lactic Acid Calcium 7.8 L Total Bilirubin 0.6 D AST 62 H ALT 41 Alkaline Phosphatase 165 H Ammonia Creatine Kinase 120 Troponin I < 0.02 Total Protein 6.0 L Albumin 2.2 L Urine Color Urine Appearance Urine pH Ur Specific [place] Urine Protein Urine Glucose (UA) Urine Ketones Urine Blood Urine Nitrite Urine Bilirubin Urine Urobilinogen Ur Leukocyte Esterase Urine WBC (Auto) Urine RBC (Auto) Urine Bacteria Salicylates Opiates Screen Methadone Screen Acetaminophen Barbiturate Screen Phencyclidine Screen Ur Amphetamines Screen MDMA (Ecstasy) Screen Benzodiazepines Screen Cocaine Screen U Marijuana (THC) Screen Alcohol, Quantitative Blood Type Antibody Screen 02/24/18 02/24/18 02/24/18 07:12 07:12 07:12 WBC RBC Hgb Hct MCV MCH MCHC RDW Plt Count MPV Neutrophils % Lymphocytes % Monocytes % Eosinophils % Basophils % PT with INR INR Puncture Site ABG pH ABG pCO2 at Pt Temp ABG pO2 at Pt Temp ABG HCO3 ABG O2 Sat (Measured) ABG O2 Content ABG Base Excess Luis Armando Test Oxygen Flow Rate Sodium Potassium Chloride Carbon Dioxide Anion Gap BUN Creatinine Creat Clearance w eGFR Random Glucose Lactic Acid 1.1 Calcium Total Bilirubin AST ALT Alkaline Phosphatase Ammonia Creatine Kinase Troponin I Total Protein Albumin Urine Color Urine Appearance Urine pH Ur Specific [place] Urine Protein Urine Glucose (UA) Urine Ketones Urine Blood Urine Nitrite Urine Bilirubin Urine Urobilinogen Ur Leukocyte Esterase Urine WBC (Auto) Urine RBC (Auto) Urine Bacteria Salicylates < 1.700 Opiates Screen Methadone Screen Acetaminophen 2.748 Barbiturate Screen Phencyclidine Screen Ur Amphetamines Screen MDMA (Ecstasy) Screen Benzodiazepines Screen Cocaine Screen U Marijuana (THC) Screen Alcohol, Quantitative < 5.0 Blood Type B POSITIVE Antibody Screen Negative 02/24/18 02/24/18 02/24/18 08:20 08:55 09:00 WBC RBC Hgb Hct MCV MCH MCHC RDW Plt Count MPV Neutrophils % Lymphocytes % Monocytes % Eosinophils % Basophils % PT with INR INR Puncture Site Right radial ABG pH 7.42 ABG pCO2 at Pt Temp 24.8 L ABG pO2 at Pt Temp 148.0 H ABG HCO3 15.9 L ABG O2 Sat (Measured) 99.5 H ABG O2 Content 12.8 L ABG Base Excess -7.0 L Luis Armando Test Positive Oxygen Flow Rate Yes Sodium Potassium Chloride Carbon Dioxide Anion Gap BUN Creatinine Creat Clearance w eGFR Random Glucose Lactic Acid Calcium Total Bilirubin AST ALT Alkaline Phosphatase Ammonia 206.76 H Creatine Kinase Troponin I Total Protein Albumin Urine Color Yellow Urine Appearance Clear Urine pH 6.0 Ur Specific [place] 1.008 Urine Protein 2+ H Urine Glucose (UA) Negative Urine Ketones Negative Urine Blood 3+ H Urine Nitrite Negative Urine Bilirubin Negative Urine Urobilinogen Negative Ur Leukocyte Esterase Negative Urine WBC (Auto) 1 Urine RBC (Auto) 25 Urine Bacteria Few Salicylates Opiates Screen Methadone Screen Acetaminophen Barbiturate Screen Phencyclidine Screen Ur Amphetamines Screen MDMA (Ecstasy) Screen Benzodiazepines Screen Cocaine Screen U Marijuana (THC) Screen Alcohol, Quantitative Blood Type Antibody Screen 02/24/18 09:00 WBC RBC Hgb Hct MCV MCH MCHC RDW Plt Count MPV Neutrophils % Lymphocytes % Monocytes % Eosinophils % Basophils % PT with INR INR Puncture Site ABG pH ABG pCO2 at Pt Temp ABG pO2 at Pt Temp ABG HCO3 ABG O2 Sat (Measured) ABG O2 Content ABG Base Excess Luis Armando Test Oxygen Flow Rate Sodium Potassium Chloride Carbon Dioxide Anion Gap BUN Creatinine Creat Clearance w eGFR Random Glucose Lactic Acid Calcium Total Bilirubin AST ALT Alkaline Phosphatase Ammonia Creatine Kinase Troponin I Total Protein Albumin Urine Color Urine Appearance Urine pH Ur Specific [place] Urine Protein Urine Glucose (UA) Urine Ketones Urine Blood Urine Nitrite Urine Bilirubin Urine Urobilinogen Ur Leukocyte Esterase Urine WBC (Auto) Urine RBC (Auto) Urine Bacteria Salicylates Opiates Screen Negative Methadone Screen Negative Acetaminophen Barbiturate Screen Negative Phencyclidine Screen Negative Ur Amphetamines Screen Negative MDMA (Ecstasy) Screen Negative Benzodiazepines Screen Positive Cocaine Screen Negative U Marijuana (THC) Screen Negative Alcohol, Quantitative Blood Type Antibody Screen urine cx pending CXR 02/24 - NG tube in place. No acute pathology CT head 02/24- No pathology noted EKG 02/24 - NSR, rate 95, QTC 449, multiple PACs, borderline peaked twaves in v4- v6; likely artifact ASSESSMENT/PLAN: 47 yo man w/ pmh of ETOH abuse, HTN, ?NIDDM, depression, HLD and prior suicide attempt, cirrhosis (2/2 ETOH use, S/p TIPS per prior note), who presents obtunded with possible seizure this AM from [facility], currently undergoing detox program for alcohol abuse. #Suspected hepatic encephalopathy c/b possible seizures - ammonia 206 - GI consulted - lactulose Q1H until BM - Neuro consulted - Rec MRI, Vimpat 100mg BID, lactulose, EEG - IVFs - Ativan 1mg PRN - PPI - Rifaximin BID - Aspiration precautions #ESLD - MELD 18 - GI consulted - trend LFTs - Consider RUQ U/S #GRABIEL (Possible hepatorenal syndrome) - Cr 3.5 - Renal consulted - Trend Cr - IVFs - Warner placed #?NIDDM - - ISS - BGM Q4h #HTN - monitor - C/w home amlodipine - hold lisinopril in setting of GRABIEL #Alcohol abuse - consider possible withdrawal seizures - Monitor for withdrawal symptoms once MS improves - Once MS improves, c/w librium taper PPX HSQ FEN D51/2NS 100cc/hr Daily lytes NPO Plan discussed with attending, Dr. Zacarias Bolivar, PGY1 Visit type - Emergency Visit Emergency Visit: Yes ED Registration Date: 02/24/18 Care time: The patient presented to the Emergency Department on the above date and was hospitalized for further evaluation of their emergent condition. - New Patient This patient is new to me today: Yes Date on this admission: 02/24/18 - Critical Care Critical Care patient: Yes Total Critical Care Time (in minutes): 35 Critical Care Statement: The care of this patient involved high complexity decision making to prevent further life threatening deterioration of the patient 's condition and/or to evaluate & treat vital organ system(s) failure or risk of failure. Hospitalist Screening - Colonoscopy Questionnaire Colonoscopy Questionnaire: Colonoscopy Questionnaire - Patient: 50 - 75 years old and never had a screening colonoscopy: Unknown History of colon or rectal polyps, or CA: Unknown History of IBD, Crohn's disease or UC: Unknown History of abdominal radiation therapy as a child: Unknown - Relative: 1 with colon or rectal CA, or polyps at age 60 or younger: Unknown Colon or rectal CA diagnosed at age 45 or younger: Unknown Multiple relatives with colon or rectal CA: Unknown - Outcome: Screening Result: Negative Screen
[2018-02-24] MEDS ORDERED: amLODIPine BESYLATE 10 MG TABLET (FP) PO SCH (12:45)
--- NOTE | 2018-02-24 14:21 | CON.NEURO ---
Consult Consult Specialty:: NEUROLOGY-STEPHANI BIGGS - History of Present Illness Chief Complaint: Found on floor History of Present Illness: Patient is a 47M with history of HTN, DM, depression, suicidal attempt 5 months ago after swallowing razors, cirrhosis, and alcohol abuse sent here from [facility] for altered mental status. He was found down in his bed by nursing this morning, last known well was 12:30am. He was found with urinary and fecal incontinence. Glucose was 129. Patient was not responding to commands, but was withdrawing from pain. Patient is not able to contribute to history, non-verbal. NH3-206.06 - History Source History Provided By: Medical Record - Past Medical History Cardio/Vascular: Yes: HTN, Hyperlipdemia Hepatobiliary: Yes: Cirrhosis Renal/: Yes: Hematuria. No: Renal Calculi, UTI Endocrine: Yes: Diabetes Mellitus - Alcohol/Substance Use Hx Alcohol Use: Yes - Smoking History Smoking history: Current some day smoker Have you smoked in the past 12 months: No Aproximately how many cigarettes per day: 2 If you are a former smoker, when did you quit?: 2010 Home Medications - Allergies Allergies/Adverse Reactions: Allergies Allergy/AdvReac Type Severity Reaction Status Date / Time shellfish derived Allergy Severe Swelling Verified 02/24/18 06:59 No Known Drug Allergies Allergy Verified 02/24/18 06:59 NKDA Allergy Uncoded 02/24/18 06:59 - Home Medications Home Medications: Ambulatory Orders Escitalopram Oxalate [Lexapro -] 20 mg PO DAILY 04/28/17 Quetiapine Fumarate [Seroquel] 100 mg PO HS 04/28/17 Amlodipine Besylate [Norvasc -] 10 mg PO DAILY #30 tab 05/11/17 Fluoxetine HCl [Prozac -] 20 mg PO DAILY #30 tab 05/11/17 Calcium 500Mg/Vit-D 200 Units [Os-Dennis 500+D -] 1 tab PO DAILY #30 tab 09/27/17 Folic Acid - 1 mg PO DAILY #30 tablet 09/27/17 Lisinopril [Prinivil] 20 mg PO DAILY #30 tablet 09/27/17 Multivitamin [One Daily] 1 each PO DAILY #30 tablet 09/27/17 Thiamine HCl [Vitamin B1 -] 100 mg PO DAILY #30 tablet 09/27/17 Family Disease History - Family Disease History Family Disease History: Diabetes: Father (alive ) Physical Exam-Neuro Vital Signs: Vital Signs Temperature 97.8 F 02/24/18 14:09 Pulse Rate 79 02/24/18 14:09 Respiratory Rate 14 02/24/18 14:09 Blood Pressure 117/60 02/24/18 14:09 O2 Sat by Pulse Oximetry (%) 100 02/24/18 14:09 Labs: CBC, BMP 02/24/18 07:12 02/24/18 07:12 INR, PTT INR 1.02 (0.82-1.09) 02/24/18 07:12 - Neuro Exam Level Of Consciousness: Yes: Obtunded, Stuporous (To voice commands no response , to pain grunts and to ext.painful stmulii moves left side more than right) Eyes: Yes: PERRL (+ interic sclera, gaze deviated to right and up+Dols eye movements) Speech: Other (Non-verbal, grunts only to pain.) Cranial Nerves II-XII Intact: Yes (Gaze deviation as above, + bilat.corneal reflexes) Gag: Present DTR's: 0 Right Achilles, 1+ Right Tricep, 1+ Right Brachioradialis, 1+ Left Achilles, 2+ Left Bicep, 2+ Right Bicep, 2+ Left Tricep, 2+ Left Brachioradialis Babinski: Present (+Bilat upgoing toes) Response to pain prick: Normal (Withdraws all 4 ext. to pain but right side less so) Motor Strength: 1/5: Left Arm (as above) Gait: Other (Not testable) Assessment/Plan Pt. with cirrhosis, found on floor unresponsive. He likely had a seizure,has hepatic encephalopathy. Exam reveals stupour, gaze deviation to right, noted to have movements of left arm(Given Ativan). A&P: Pt. with hepatic encephalopathy, ?? seizure, given gaze deviation, bilat upgoing toes and assymetry of refdlexes must consider ischemic event. -MRI Brain -Lacosamide 100mg x2(given), would cont at 100mg twice daily. If still suspect seizures would add Keppra 500mg ivss twice daily -EEG -Treat hep.enceph. -Will follow, Thank you, Bart Hernandez MD
[2018-02-24] MEDS: LACTULOSE 20 GM/30 ML UDC (FOR ORAL USE ONLY) NGT SCH ×11 (15:00→23:24)
[2018-02-24 15:20] LABS: ALBUMIN 2.3 g/dl (3.4-5.0); ANION GAP 10 (8-16); BLOOD UREA NITROGEN 45 mg/dL (7-18); CALCIUM 8.1 mg/dL (8.5-10.1); CHLORIDE 118 mmol/L (98-107); CO2 18 mmol/L (21-32); CREATININE 3.5 mg/dL (0.7-1.3); GLUCOSE,RANDOM 146 mg/dL (74-106); POTASSIUM 4.3 mmol/L (3.5-5.1); SGOT/AST 57 U/L (15-37); SGPT/ALT 41 U/L (12-78); SODIUM 146 mmol/L (136-145)
[2018-02-24 15:22] LABS: ALK PHOS 155 U/L (45-117); BILIRUBIN,TOTAL 0.7 mg/dL (0.2-1.0); TOT PROT 6.2 g/dl (6.4-8.2)
--- NOTE | 2018-02-24 15:40 | PN ---
Teaching Attending Note Name of Resident: Jude Bolivar ATTENDING PHYSICIAN STATEMENT I saw and evaluated the patient. I reviewed the resident's note and discussed the case with the resident. I agree with the resident's findings and plan as documented with exceptions mentioned below. SUBJECTIVE: 47 yom with PMHx of ETOH abuse with cirrhosis, depression, Suicidal attempt 5 months ago when reportedly swallowed razors, HTN, Depression, ?NIDDM, recently at [facility] for ETOH detox on librium taper, was sent in as was obtunded only responsive to pain stimuli with some limb movements. Patient when in the ED was obtunded with elevated ammonia levels, minimal movements on painful stimuli, right gaze deviation with nystagmus and flaccid with occasionally jerking movements RUE. Unable to do ROS. OBJECTIVE: Vital Signs Period Temp Pulse Resp BP Sys/Horton Pulse Ox Last 24 Hr 97.6 F-97.8 F 79-99 14-22 117-178/60-105 100-100 Intake & Output 02/21/18 02/22/18 02/23/18 02/24/18 23:59 23:59 23:59 23:59 Output Total 500 Balance -500 Weight 250 lb GENERAL: stuperous, minimal movement of extremities except RUE with painful stimuli/deep sternal rub. HEAD: small scabs over forehead eye areas EYES: Pupils minimal reaction to light, right gaze deviation, with nystagmus on tracking. EARS, NOSE, THROAT: Ears normal, nares patent, oropharynx clear without exudates. dry mucous membrane NECK:soft, supple, unable to visualize JVD LUNGS: poor effort, limited exam given body habitus and lack of co-operation. HEART: regular ABDOMEN: soft, obese, positive bowel sounds, unable to assess for ROS. Neuro: stuperous, minimal movements with painful stimuli/Deep sternal rub, RUE flaccid with intermittent jerky movements, Babinski upgoing Extremities: Bilateral LE with no visible edema, Small scab like areas on bilateral hands SKIN: decreased turgor noted Home Medication List Medication Instructions Recorded Confirmed Type Escitalopram Oxalate [Lexapro -] 20 mg PO DAILY 04/28/17 02/24/18 History Quetiapine Fumarate [Seroquel] 100 mg PO HS 04/28/17 02/24/18 History Active Medications Generic Name Dose Route Start Last Admin Trade Name Freq PRN Reason Stop Dose Admin Amlodipine Besylate 10 mg 02/24/18 13:04 Norvasc - NGT DAILY DEV Chlorhexidine Gluconate 1 applic 02/24/18 22:00 Hibiclens For Decolonization - TP HS DEV Dextrose/Sodium Chloride 1,000 mls @ 100 mls/hr 02/24/18 15:45 D5-1/2ns - IV ASDIR DEV Sodium Chloride 1,000 mls @ 1,000 mls/hr 02/24/18 15:40 Normal Saline - IV 02/24/18 16:39 ASDIR STA Lacosamide 100 mg 02/24/18 22:00 Vimpat Injection - IVPB BID DEV Lactulose 20 gm 02/24/18 13:45 02/24/18 15:23 Cephulac (Oral Use) NGT 20 gm Q1H DEV Administration Mupirocin 1 applic 02/24/18 22:00 Bactroban Ointment (For Decolonization) - NS 03/01/18 21:59 BID DEV Laboratory Results - last 24 hr 02/24/18 02/24/18 02/24/18 07:12 07:12 07:12 WBC 3.9 L D RBC 3.20 L D Hgb 9.6 L D Hct 28.2 L D MCV 88.2 MCH 30.0 MCHC 34.0 RDW 18.1 H Plt Count 61 L D MPV 10.1 Neutrophils % 61.1 Lymphocytes % 21.9 Monocytes % 14.3 H Eosinophils % 1.8 Basophils % 0.9 PT with INR 11.50 INR 1.02 Puncture Site ABG pH ABG pCO2 at Pt Temp ABG pO2 at Pt Temp ABG HCO3 ABG O2 Sat (Measured) ABG O2 Content ABG Base Excess Luis Armando Test Oxygen Flow Rate Sodium 144 Potassium 4.2 Chloride 117 H Carbon Dioxide 17 L Anion Gap 10 BUN 46 H Creatinine 3.4 H Creat Clearance w eGFR 19.68 Random Glucose 119 H Lactic Acid Calcium 7.8 L Total Bilirubin 0.6 D AST 62 H ALT 41 Alkaline Phosphatase 165 H Ammonia Creatine Kinase 120 Troponin I < 0.02 Total Protein 6.0 L Albumin 2.2 L Urine Color Urine Appearance Urine pH Ur Specific [place] Urine Protein Urine Glucose (UA) Urine Ketones Urine Blood Urine Nitrite Urine Bilirubin Urine Urobilinogen Ur Leukocyte Esterase Urine WBC (Auto) Urine RBC (Auto) Urine Bacteria Salicylates Opiates Screen Methadone Screen Acetaminophen Barbiturate Screen Phencyclidine Screen Ur Amphetamines Screen MDMA (Ecstasy) Screen Benzodiazepines Screen Cocaine Screen U Marijuana (THC) Screen Alcohol, Quantitative Blood Type Antibody Screen 02/24/18 02/24/18 02/24/18 07:12 07:12 07:12 WBC RBC Hgb Hct MCV MCH MCHC RDW Plt Count MPV Neutrophils % Lymphocytes % Monocytes % Eosinophils % Basophils % PT with INR INR Puncture Site ABG pH ABG pCO2 at Pt Temp ABG pO2 at Pt Temp ABG HCO3 ABG O2 Sat (Measured) ABG O2 Content ABG Base Excess Luis Armando Test Oxygen Flow Rate Sodium Potassium Chloride Carbon Dioxide Anion Gap BUN Creatinine Creat Clearance w eGFR Random Glucose Lactic Acid 1.1 Calcium Total Bilirubin AST ALT Alkaline Phosphatase Ammonia Creatine Kinase Troponin I Total Protein Albumin Urine Color Urine Appearance Urine pH Ur Specific [place] Urine Protein Urine Glucose (UA) Urine Ketones Urine Blood Urine Nitrite Urine Bilirubin Urine Urobilinogen Ur Leukocyte Esterase Urine WBC (Auto) Urine RBC (Auto) Urine Bacteria Salicylates < 1.700 Opiates Screen Methadone Screen Acetaminophen 2.748 Barbiturate Screen Phencyclidine Screen Ur Amphetamines Screen MDMA (Ecstasy) Screen Benzodiazepines Screen Cocaine Screen U Marijuana (THC) Screen Alcohol, Quantitative < 5.0 Blood Type B POSITIVE Antibody Screen Negative 02/24/18 02/24/18 02/24/18 08:20 08:55 09:00 WBC RBC Hgb Hct MCV MCH MCHC RDW Plt Count MPV Neutrophils % Lymphocytes % Monocytes % Eosinophils % Basophils % PT with INR INR Puncture Site Right radial ABG pH 7.42 ABG pCO2 at Pt Temp 24.8 L ABG pO2 at Pt Temp 148.0 H ABG HCO3 15.9 L ABG O2 Sat (Measured) 99.5 H ABG O2 Content 12.8 L ABG Base Excess -7.0 L Luis Armando Test Positive Oxygen Flow Rate Yes Sodium Potassium Chloride Carbon Dioxide Anion Gap BUN Creatinine Creat Clearance w eGFR Random Glucose Lactic Acid Calcium Total Bilirubin AST ALT Alkaline Phosphatase Ammonia 206.76 H Creatine Kinase Troponin I Total Protein Albumin Urine Color Yellow Urine Appearance Clear Urine pH 6.0 Ur Specific [place] 1.008 Urine Protein 2+ H Urine Glucose (UA) Negative Urine Ketones Negative Urine Blood 3+ H Urine Nitrite Negative Urine Bilirubin Negative Urine Urobilinogen Negative Ur Leukocyte Esterase Negative Urine WBC (Auto) 1 Urine RBC (Auto) 25 Urine Bacteria Few Salicylates Opiates Screen Methadone Screen Acetaminophen Barbiturate Screen Phencyclidine Screen Ur Amphetamines Screen MDMA (Ecstasy) Screen Benzodiazepines Screen Cocaine Screen U Marijuana (THC) Screen Alcohol, Quantitative Blood Type Antibody Screen 02/24/18 02/24/18 02/24/18 09:00 14:45 14:45 WBC RBC Hgb Hct MCV MCH MCHC RDW Plt Count MPV Neutrophils % Lymphocytes % Monocytes % Eosinophils % Basophils % PT with INR INR Puncture Site ABG pH ABG pCO2 at Pt Temp ABG pO2 at Pt Temp ABG HCO3 ABG O2 Sat (Measured) ABG O2 Content ABG Base Excess Luis Armando Test Oxygen Flow Rate Sodium 146 H Potassium 4.3 Chloride 118 H Carbon Dioxide 18 L Anion Gap 10 BUN 45 H Creatinine 3.5 H Creat Clearance w eGFR 19.04 Random Glucose 146 H D Lactic Acid Calcium 8.1 L Total Bilirubin 0.7 AST 57 H ALT 41 Alkaline Phosphatase 155 H Ammonia Creatine Kinase Troponin I Total Protein 6.2 L Albumin 2.3 L Urine Color Urine Appearance Urine pH Ur Specific [place] Urine Protein Urine Glucose (UA) Urine Ketones Urine Blood Urine Nitrite Urine Bilirubin Urine Urobilinogen Ur Leukocyte Esterase Urine WBC (Auto) Urine RBC (Auto) Urine Bacteria Salicylates Opiates Screen Negative Methadone Screen Negative Acetaminophen < 2.000 Barbiturate Screen Negative Phencyclidine Screen Negative Ur Amphetamines Screen Negative MDMA (Ecstasy) Screen Negative Benzodiazepines Screen Positive Cocaine Screen Negative U Marijuana (THC) Screen Negative Alcohol, Quantitative Blood Type Antibody Screen CT brain neg for acute process CXR; no acute process, retained foreign body right shoulder EKG: NSR 95 ASSESSMENT AND PLAN: 47 yom with ETOH cirrhosis s/p ?TIPPS, ETOH abuse, recently in detox for the same, HTN, ?NIDDM, depression/prior suicidal attempt admitted with AMS -AMS, suspect hepatic encephalopathy, however right gaze deviation with focal RUE symptoms on exam, concerning for cerebral event, withdrawal seizures with prolonged post ictal phase on differential as well but less likely. Low suspicion for acute drug ingestion given drug screen -ETOH abuse -ETOH cirrhosis -GRABIEL, prenal, cannot r/o hepatorenal syndrome. -HTN -?NIDDM -Depression/prior reported sucidal attempt swallowing razors 5 months ago Plan: Neurology input appreciated. Vimpat IV BID, neuro checks, MRi brain if able (patient with?Foreign body in right shoulder), will repeat CT head otherwise. Seizure precautions. 2D echo and carotid to complete stroke w/u. Aggressive lactulose, GI input. PPI, follow up rifaximin. Creatinine improved with hydration in ED, IVF, renal consult, ?hepatorenal syndrome. Unlcear if whole presentation is with decompensated liver cirrhosis with hepatic encephalopathy with seizures, and hepatorenal syndrome. MELD 18, monitor closely for response to lactulose/IVF, and follow up with GI/ renal. Amlodipine as tolerates. ISS DVTPPX with SCDs in bed GIPPX with protonix Admit to ICU. Total critical care time spent 45 min.
[2018-02-24] MEDS ORDERED: DEXTROSE 5%-0.45% SALINE 1,000 ML IV SCH ×2 (15:45→20:46)
--- NOTE | 2018-02-24 16:03 | CON.PULM ---
Consult Consult Specialty:: PULMONARY/CCM Referred by:: Dr. Benton Reason for Consultation:: hepatic coma - History of Present Illness Chief Complaint: altered mental status History of Present Illness: 47yo male with h/o alcoholic cirrhosis s/p TIPS, HTN, DM, depression who was admitted with altered mental status, unresponsive. Noted to have an elevated ammonia level >200 and questionable seizure activity. Pt is lethargic, attempts to say his name but unable to provide further history at this time. Also noted to be in acute renal failure. No fevers recorded. NGT placed and started on lactulose. - History Source History Provided By: Medical Record Limitations to Obtaining History: Clinical Condition - Past Medical History Cardio/Vascular: Yes: HTN, Hyperlipdemia Hepatobiliary: Yes: Cirrhosis Renal/: Yes: Hematuria. No: Renal Calculi, UTI Endocrine: Yes: Diabetes Mellitus - Alcohol/Substance Use Hx Alcohol Use: Yes - Smoking History Smoking history: Current some day smoker Have you smoked in the past 12 months: No Aproximately how many cigarettes per day: 2 If you are a former smoker, when did you quit?: 2010 Home Medications - Allergies Allergies/Adverse Reactions: Allergies Allergy/AdvReac Type Severity Reaction Status Date / Time shellfish derived Allergy Severe Swelling Verified 02/24/18 06:59 No Known Drug Allergies Allergy Verified 02/24/18 06:59 NKDA Allergy Uncoded 02/24/18 06:59 - Home Medications Home Medications: Ambulatory Orders Escitalopram Oxalate [Lexapro -] 20 mg PO DAILY 04/28/17 Quetiapine Fumarate [Seroquel] 100 mg PO HS 04/28/17 Amlodipine Besylate [Norvasc -] 10 mg PO DAILY #30 tab 05/11/17 Fluoxetine HCl [Prozac -] 20 mg PO DAILY #30 tab 05/11/17 Calcium 500Mg/Vit-D 200 Units [Os-Dennis 500+D -] 1 tab PO DAILY #30 tab 09/27/17 Folic Acid - 1 mg PO DAILY #30 tablet 09/27/17 Lisinopril [Prinivil] 20 mg PO DAILY #30 tablet 09/27/17 Multivitamin [One Daily] 1 each PO DAILY #30 tablet 09/27/17 Thiamine HCl [Vitamin B1 -] 100 mg PO DAILY #30 tablet 09/27/17 Family Disease History - Family Disease History Family Disease History: Diabetes: Father (alive ) Review of Systems Unable to obtain ROS, reason: pt lethargic Physical Exam Vital Sings: Vital Signs Temperature 97.5 F L 02/24/18 15:57 Pulse Rate 79 02/24/18 15:25 Respiratory Rate 18 02/24/18 15:25 Blood Pressure 156/81 02/24/18 15:25 O2 Sat by Pulse Oximetry (%) 100 02/24/18 15:25 Constitutional: Yes: Other (lethargic) Eyes: Yes: Conjunctiva Clear, EOM Intact HENT: Yes: Atraumatic, Normocephalic Neck: Yes: Supple, Trachea Midline Cardiovascular: Yes: Regular Rate and Rhythm Respiratory: Yes: Diminished (poor effort) ...Clubbing: No Gastrointestinal: Yes: Normal Bowel Sounds, Soft. No: Tenderness Edema: No Neurological: Yes: Lethargy Labs: CBC, BMP 02/24/18 07:12 02/24/18 14:45 ABG Results ABG pH 7.42 (7.35-7.45) 02/24/18 08:55 ABG pCO2 at Pt Temp 24.8 mmHg (35-45) L 02/24/18 08:55 ABG pO2 at Pt Temp 148.0 mmHg (80-100) H 02/24/18 08:55 ABG HCO3 15.9 meq/L (22-26) L 02/24/18 08:55 ABG O2 Sat (Measured) 99.5 % (90-98.9) H 02/24/18 08:55 ABG O2 Content 12.8 % vol (15-22) L 02/24/18 08:55 ABG Base Excess -7.0 meq/l (-2-2) L 02/24/18 08:55 Imaging - Results Chest X-ray: Report Reviewed, Image Reviewed (no infiltrates) Cat Scan: Report Reviewed, Image Reviewed (no acute changes) Problem List - Problems (1) Hepatic encephalopathy Code(s): K72.90 - HEPATIC FAILURE, UNSPECIFIED WITHOUT COMA (2) Cirrhosis of liver Code(s): K74.60 - UNSPECIFIED CIRRHOSIS OF LIVER Qualifiers: Hepatic cirrhosis type: unspecified hepatic cirrhosis Ascites presence: without ascites Qualified Code(s): K74.60 - Unspecified cirrhosis of liver (3) Acute kidney injury Code(s): N17.9 - ACUTE KIDNEY FAILURE, UNSPECIFIED (4) AA (alcohol abuse) Code(s): F10.10 - ALCOHOL ABUSE, UNCOMPLICATED (5) Hypertension Code(s): I10 - ESSENTIAL (PRIMARY) HYPERTENSION Qualifiers: Hypertension type: essential hypertension Qualified Code(s): I10 - Essential (primary) hypertension Assessment/Plan Hepatic Coma r/o Seizures Liver Cirrhosis Acute Kidney Injury Alcohol Abuse Pancytopenia HTN - lactulose, rifaximin - monitor ammonia level - saline challenge - urine lytes - monitor urine output, creatinine - aspiration precautions - antiepiletics per neuro - monitor CBC - monitor in ICU Thank you for this consult Osmany Gibbs MD
[2018-02-24] MEDS ORDERED: PANTOPRAZOLE SODIUM 40 MG VIAL ONE (16:20)
[2018-02-24] MEDS: PANTOPRAZOLE SODIUM 40 MG VIAL IVPUSH SCH (16:22)
[2018-02-24] MEDS: RIFAXIMIN 550 MG TABLET (UD) PO SCH ×2 (16:46→22:12)
--- NOTE | 2018-02-24 17:31 | CON.GI ---
Consult - Past Medical History Cardio/Vascular: Yes: HTN, Hyperlipdemia Hepatobiliary: Yes: Cirrhosis Renal/: Yes: Hematuria. No: Renal Calculi, UTI Endocrine: Yes: Diabetes Mellitus - Alcohol/Substance Use Hx Alcohol Use: Yes - Smoking History Smoking history: Current some day smoker Have you smoked in the past 12 months: No Aproximately how many cigarettes per day: 2 If you are a former smoker, when did you quit?: 2010 Home Medications - Allergies Allergies/Adverse Reactions: Allergies Allergy/AdvReac Type Severity Reaction Status Date / Time shellfish derived Allergy Severe Swelling Verified 02/24/18 06:59 No Known Drug Allergies Allergy Verified 02/24/18 06:59 NKDA Allergy Uncoded 02/24/18 06:59 - Home Medications Home Medications: Ambulatory Orders Escitalopram Oxalate [Lexapro -] 20 mg PO DAILY 04/28/17 Quetiapine Fumarate [Seroquel] 100 mg PO HS 04/28/17 Amlodipine Besylate [Norvasc -] 10 mg PO DAILY #30 tab 05/11/17 Fluoxetine HCl [Prozac -] 20 mg PO DAILY #30 tab 05/11/17 Calcium 500Mg/Vit-D 200 Units [Os-Dennis 500+D -] 1 tab PO DAILY #30 tab 09/27/17 Folic Acid - 1 mg PO DAILY #30 tablet 09/27/17 Lisinopril [Prinivil] 20 mg PO DAILY #30 tablet 09/27/17 Multivitamin [One Daily] 1 each PO DAILY #30 tablet 09/27/17 Thiamine HCl [Vitamin B1 -] 100 mg PO DAILY #30 tablet 09/27/17 Family Disease History - Family Disease History Family Disease History: Diabetes: Father (alive ) Physical Exam-GI Vital Signs: Vital Signs Temperature 97.5 F L 02/24/18 15:57 Pulse Rate 79 02/24/18 15:25 Respiratory Rate 18 02/24/18 15:25 Blood Pressure 156/81 02/24/18 15:25 O2 Sat by Pulse Oximetry (%) 100 02/24/18 15:25 Labs: CBC, BMP 02/24/18 07:12 02/24/18 14:45 INR, PTT INR 1.02 (0.82-1.09) 02/24/18 07:12
--- NOTE | 2018-02-24 17:47 | EKG ---
Test Reason : Blood Pressure : / mmHG Vent. Rate : 095 BPM Atrial Rate : 095 BPM P-R Int : 156 ms QRS Dur : 086 ms QT Int : 358 ms P-R-T Axes : 071 057 066 degrees QTc Int : 449 ms NORMAL SINUS RHYTHM NONSPECIFIC ST ABNORMALITY ABNORMAL ECG Confirmed by MD JOSSUE, MARANDA ([id number]) on 02/24/2018 5:47:32 PM Referred By: Confirmed By:MARANDA MARCUM MD
--- NOTE | 2018-02-24 19:08 | CONSULT ---
Consult Consult Specialty:: Nephrology Reason for Consultation:: GRABIEL - History of Present Illness Chief Complaint: sent from [facility] for a change in mental status History of Present Illness: Pt is a 47 year old male with pmhx of HTN, DM, depression, multiple suicide attempt, etoh abuse and cirrhosis who was sent in from [facility] for altered mental status. He was found in bed by the nursing staff. He was last seen in his normal state at about 12 30 am. He is lethargic and not responding to verbal stimuli. He was not able to give history. Chart, labs and meds were reviewed. I was called to evaluate him as he was found to be in acute renal failure. He is making urine. - History Source History Provided By: Medical Record Limitations to Obtaining History: Clinical Condition - Past Medical History Cardio/Vascular: Yes: HTN, Hyperlipdemia Hepatobiliary: Yes: Cirrhosis Renal/: Yes: Hematuria Endocrine: Yes: Diabetes Mellitus - Alcohol/Substance Use Hx Alcohol Use: Yes - Smoking History Smoking history: Current some day smoker Have you smoked in the past 12 months: No Aproximately how many cigarettes per day: 2 If you are a former smoker, when did you quit?: 2010 Home Medications - Allergies Allergies/Adverse Reactions: Allergies Allergy/AdvReac Type Severity Reaction Status Date / Time shellfish derived Allergy Severe Swelling Verified 02/24/18 06:59 No Known Drug Allergies Allergy Verified 02/24/18 06:59 NKDA Allergy Uncoded 02/24/18 06:59 - Home Medications Home Medications: Ambulatory Orders Escitalopram Oxalate [Lexapro -] 20 mg PO DAILY 04/28/17 Quetiapine Fumarate [Seroquel] 100 mg PO HS 04/28/17 Amlodipine Besylate [Norvasc -] 10 mg PO DAILY #30 tab 05/11/17 Fluoxetine HCl [Prozac -] 20 mg PO DAILY #30 tab 05/11/17 Calcium 500Mg/Vit-D 200 Units [Os-Dennis 500+D -] 1 tab PO DAILY #30 tab 09/27/17 Folic Acid - 1 mg PO DAILY #30 tablet 09/27/17 Lisinopril [Prinivil] 20 mg PO DAILY #30 tablet 09/27/17 Multivitamin [One Daily] 1 each PO DAILY #30 tablet 09/27/17 Thiamine HCl [Vitamin B1 -] 100 mg PO DAILY #30 tablet 09/27/17 Family Disease History - Family Disease History Family History: Unable to Obtain Family Disease History: Diabetes: Father (alive ) Review of Systems Unable to obtain ROS, reason: pt is lethargic Physical Exam Vital Signs: Vital Signs Temperature 97.5 F L 02/24/18 15:57 Pulse Rate 78 02/24/18 18:48 Respiratory Rate 18 02/24/18 18:48 Blood Pressure 155/77 02/24/18 18:48 O2 Sat by Pulse Oximetry (%) 100 02/24/18 18:48 Constitutional: Yes: Calm HENT: Yes: Other (scars on head) Neck: Yes: Supple Cardiovascular: Yes: S1, S2 Respiratory: Yes: CTA Bilaterally Gastrointestinal: Yes: Soft, Abdomen, Obese, Other (ng tube) Renal/: Yes: Warner Present Musculoskeletal: Yes: Muscle Weakness Edema: Yes Edema: LLE: Trace, RLE: Trace Integumentary: Yes: Other (multiple scars) Neurological: Yes: Lethargy Labs: CBC, BMP 02/24/18 07:12 02/24/18 14:45 Laboratory Tests 09/23/17 09/24/17 09/25/17 05:55 07:34 09:15 WBC Hgb Plt Count PT with INR INR ABG pH Sodium Potassium Chloride Carbon Dioxide Creatinine 1.5 H 1.2 1.4 H Ammonia Urine Protein Urine Blood Salicylates Opiates Screen Acetaminophen Barbiturate Screen Phencyclidine Screen Ur Amphetamines Screen MDMA (Ecstasy) Screen Alcohol, Quantitative 09/26/17 09/27/17 02/23/18 06:10 06:48 08:00 WBC Hgb Plt Count PT with INR INR ABG pH Sodium Potassium Chloride Carbon Dioxide Creatinine 1.2 1.1 4.2 H D Ammonia Urine Protein Urine Blood Salicylates Opiates Screen Acetaminophen Barbiturate Screen Phencyclidine Screen Ur Amphetamines Screen MDMA (Ecstasy) Screen Alcohol, Quantitative 02/24/18 02/24/18 02/24/18 07:12 07:12 07:12 WBC 3.9 L D Hgb 9.6 L D Plt Count 61 L D PT with INR 11.50 INR 1.02 ABG pH Sodium Potassium Chloride Carbon Dioxide Creatinine 3.4 H Ammonia Urine Protein Urine Blood Salicylates Opiates Screen Acetaminophen Barbiturate Screen Phencyclidine Screen Ur Amphetamines Screen MDMA (Ecstasy) Screen Alcohol, Quantitative 02/24/18 02/24/18 02/24/18 07:12 08:20 08:55 WBC Hgb Plt Count PT with INR INR ABG pH 7.42 Sodium Potassium Chloride Carbon Dioxide Creatinine Ammonia 206.76 H Urine Protein Urine Blood Salicylates < 1.700 Opiates Screen Acetaminophen Barbiturate Screen Phencyclidine Screen Ur Amphetamines Screen MDMA (Ecstasy) Screen Alcohol, Quantitative < 5.0 02/24/18 02/24/18 02/24/18 09:00 09:00 14:45 WBC Hgb Plt Count PT with INR INR ABG pH Sodium 146 H Potassium 4.3 Chloride 118 H Carbon Dioxide 18 L Creatinine 3.5 H Ammonia Urine Protein 2+ H Urine Blood 3+ H Salicylates Opiates Screen Negative Acetaminophen Barbiturate Screen Negative Phencyclidine Screen Negative Ur Amphetamines Screen Negative MDMA (Ecstasy) Screen Negative Alcohol, Quantitative 02/24/18 14:45 WBC Hgb Plt Count PT with INR INR ABG pH Sodium Potassium Chloride Carbon Dioxide Creatinine Ammonia Urine Protein Urine Blood Salicylates Opiates Screen Acetaminophen < 2.000 Barbiturate Screen Phencyclidine Screen Ur Amphetamines Screen MDMA (Ecstasy) Screen Alcohol, Quantitative Imaging - Results Cat Scan: Report Reviewed (ct head reviewed pt has an old ct from 2017 that shows a tips catheter) Problem List - Problems (1) Acute kidney injury Code(s): N17.9 - ACUTE KIDNEY FAILURE, UNSPECIFIED (2) Hepatic encephalopathy Code(s): K72.90 - HEPATIC FAILURE, UNSPECIFIED WITHOUT COMA (3) AA (alcohol abuse) Code(s): F10.10 - ALCOHOL ABUSE, UNCOMPLICATED (4) Depression Code(s): F32.9 - MAJOR DEPRESSIVE DISORDER, SINGLE EPISODE, UNSPECIFIED Qualifiers: Depression Type: dysthymia Qualified Code(s): F34.1 - Dysthymic disorder (5) Pancytopenia Code(s): D61.818 - OTHER PANCYTOPENIA Assessment/Plan Current Medications Generic Name Dose Route Start Last Admin Trade Name Freq PRN Reason Stop Dose Admin Amlodipine Besylate 10 mg 02/24/18 13:04 Norvasc - NGT DAILY DEV Chlorhexidine Gluconate 1 applic 02/24/18 22:00 Hibiclens For Decolonization - TP HS DEV Hydralazine HCl 10 mg 02/24/18 20:43 Apresoline Injection - IM Q6H PRN HYPERTENSION Dextrose/Sodium Chloride 1,000 mls @ 75 mls/hr 02/24/18 20:46 D5-1/2ns - IV ASDIR DEV Insulin Aspart 1 vial 02/24/18 22:00 Novolog Vial Sliding Scale - SQ ACHS [facility] Protocol Lacosamide 100 mg 02/24/18 22:00 Vimpat Injection - IVPB BID DEV Lactulose 20 gm 02/24/18 13:45 02/24/18 18:46 Cephulac (Oral Use) NGT 20 gm Q1H DEV Administration Lorazepam 1 mg 02/24/18 15:56 Ativan Injection - IVPUSH Q6H PRN AGITATION Mupirocin 1 applic 02/24/18 22:00 Bactroban Ointment (For Decolonization) - NS 03/01/18 21:59 BID DEV Pantoprazole Sodium 40 mg 02/24/18 16:15 02/24/18 16:22 Protonix Iv IVPUSH 40 mg DAILY DEV Administration Rifaximin 550 mg 02/24/18 16:15 02/24/18 16:46 Xifaxan - PO 550 mg BID DEV Administration Impression 1. GRABIEL 2. etoh abuse 3. depression 4. anxiety 5. hx suicide attempts 6. obesity 7. HLD 8. liver cirrhosis 9. change in mental status 10. metabolic acidosis Plan - cont with fluid challenge - check renal ultraosund - send ua and lytes - GI eval for liver cirrhosis - cont to monitor renal function - admit to ICU - monitor ammonia level - discussed with ER team - neurology follow up Dr Sparks
[2018-02-24] MEDS ORDERED: hydrALAZINE HCL 20 MG/ML VIAL IM PRN (20:43)
--- NOTE | 2018-02-24 21:52 | CON.GI ---
Consult Consult Specialty:: GI Reason for Consultation:: altered MS. Liver cirrhosis - History of Present Illness History of Present Illness: Chart reviewed. Events noted. A 47M with hx of liver cirrhosis, TIPS, active ETOH abuse, suicide attempt. Was in detox at [facility]. Was found unresponsive this am and transferred to ED for evaluation. Per records, was at baseline before last midnight. Suspected to have seizures. Amonia on admission 206. BUN 45, Cr 3.5. These were normal in September 2017. PT/INR normal. Bili normal. ALP mildly elevated. Minimal transaminitis. Opens eyes to name. No ascites appreciated on exam. Abdomen soft. No masses felt. - History Source History Provided By: Medical Record Limitations to Obtaining History: Clinical Condition - Past Medical History Cardio/Vascular: Yes: HTN, Hyperlipdemia Hepatobiliary: Yes: Cirrhosis Renal/: Yes: Hematuria Endocrine: Yes: Diabetes Mellitus - Alcohol/Substance Use Hx Alcohol Use: Yes - Smoking History Smoking history: Current some day smoker Have you smoked in the past 12 months: No Aproximately how many cigarettes per day: 2 If you are a former smoker, when did you quit?: 2010 Home Medications - Allergies Allergies/Adverse Reactions: Allergies Allergy/AdvReac Type Severity Reaction Status Date / Time shellfish derived Allergy Severe Swelling Verified 02/24/18 06:59 No Known Drug Allergies Allergy Verified 02/24/18 06:59 NKDA Allergy Uncoded 02/24/18 06:59 - Home Medications Home Medications: Ambulatory Orders Escitalopram Oxalate [Lexapro -] 20 mg PO DAILY 04/28/17 Quetiapine Fumarate [Seroquel] 100 mg PO HS 04/28/17 Amlodipine Besylate [Norvasc -] 10 mg PO DAILY #30 tab 05/11/17 Fluoxetine HCl [Prozac -] 20 mg PO DAILY #30 tab 05/11/17 Calcium 500Mg/Vit-D 200 Units [Os-Dennis 500+D -] 1 tab PO DAILY #30 tab 09/27/17 Folic Acid - 1 mg PO DAILY #30 tablet 09/27/17 Lisinopril [Prinivil] 20 mg PO DAILY #30 tablet 09/27/17 Multivitamin [One Daily] 1 each PO DAILY #30 tablet 09/27/17 Thiamine HCl [Vitamin B1 -] 100 mg PO DAILY #30 tablet 11/01/17 Family Disease History - Family Disease History Family History: Unable to Obtain (abtuned) Family Disease History: Diabetes: Father (alive ) Review of Systems Unable to obtain ROS, reason: obtuned Physical Exam-GI Vital Signs: Vital Signs Temperature 97.5 F L 02/24/18 15:57 Pulse Rate 78 02/24/18 18:48 Respiratory Rate 18 02/24/18 18:48 Blood Pressure 155/77 02/24/18 18:48 O2 Sat by Pulse Oximetry (%) 100 02/24/18 18:48 Constitutional: Yes: Well Nourished, Calm. No: Pallor Eyes: No: Sclera Icterus Neck: Yes: Supple Cardiovascular: Yes: Regular Rate and Rhythm. No: Bradycardia, Tachycardia Respiratory: Yes: Regular. No: Mechanically Ventilated Gastrointestinal Inspection: No: Ascites, Distention ...Palpate: Yes: Soft. No: Firm/Rigid, Guarding, Mass, Pulsatile Mass, Tenderness, Rebound Edema: No Neurological: Yes: Other (opens eyes to name) Labs: CBC, BMP 02/24/18 07:12 02/24/18 14:45 INR, PTT INR 1.02 (0.82-1.09) 02/24/18 07:12 Laboratory Tests 02/24/18 02/24/18 02/24/18 07:12 07:12 07:12 WBC 3.9 L D RBC 3.20 L D Hgb 9.6 L D Hct 28.2 L D MCV 88.2 MCH 30.0 MCHC 34.0 RDW 18.1 H Plt Count 61 L D MPV 10.1 Neutrophils % 61.1 Lymphocytes % 21.9 Monocytes % 14.3 H Eosinophils % 1.8 Basophils % 0.9 PT with INR 11.50 INR 1.02 Puncture Site ABG pH ABG pCO2 at Pt Temp ABG pO2 at Pt Temp ABG HCO3 ABG O2 Sat (Measured) ABG O2 Content ABG Base Excess Luis Armando Test Oxygen Flow Rate Sodium 144 Potassium 4.2 Chloride 117 H Carbon Dioxide 17 L Anion Gap 10 BUN 46 H Creatinine 3.4 H Creat Clearance w eGFR 19.68 Random Glucose 119 H Lactic Acid Calcium 7.8 L Total Bilirubin 0.6 D AST 62 H ALT 41 Alkaline Phosphatase 165 H Ammonia Creatine Kinase 120 Troponin I < 0.02 Total Protein 6.0 L Albumin 2.2 L Urine Color Urine Appearance Urine pH Ur Specific Lawrence Urine Protein Urine Glucose (UA) Urine Ketones Urine Blood Urine Nitrite Urine Bilirubin Urine Urobilinogen Ur Leukocyte Esterase Urine WBC (Auto) Urine RBC (Auto) Urine Bacteria Salicylates Opiates Screen Methadone Screen Acetaminophen Barbiturate Screen Phencyclidine Screen Ur Amphetamines Screen MDMA (Ecstasy) Screen Benzodiazepines Screen Cocaine Screen U Marijuana (THC) Screen Alcohol, Quantitative Blood Type Antibody Screen 02/24/18 02/24/18 02/24/18 07:12 07:12 07:12 WBC RBC Hgb Hct MCV MCH MCHC RDW Plt Count MPV Neutrophils % Lymphocytes % Monocytes % Eosinophils % Basophils % PT with INR INR Puncture Site ABG pH ABG pCO2 at Pt Temp ABG pO2 at Pt Temp ABG HCO3 ABG O2 Sat (Measured) ABG O2 Content ABG Base Excess Luis Armando Test Oxygen Flow Rate Sodium Potassium Chloride Carbon Dioxide Anion Gap BUN Creatinine Creat Clearance w eGFR Random Glucose Lactic Acid 1.1 Calcium Total Bilirubin AST ALT Alkaline Phosphatase Ammonia Creatine Kinase Troponin I Total Protein Albumin Urine Color Urine Appearance Urine pH Ur Specific Lawrence Urine Protein Urine Glucose (UA) Urine Ketones Urine Blood Urine Nitrite Urine Bilirubin Urine Urobilinogen Ur Leukocyte Esterase Urine WBC (Auto) Urine RBC (Auto) Urine Bacteria Salicylates < 1.700 Opiates Screen Methadone Screen Acetaminophen 2.748 Barbiturate Screen Phencyclidine Screen Ur Amphetamines Screen MDMA (Ecstasy) Screen Benzodiazepines Screen Cocaine Screen U Marijuana (THC) Screen Alcohol, Quantitative < 5.0 Blood Type B POSITIVE Antibody Screen Negative 02/24/18 02/24/18 02/24/18 08:20 08:55 09:00 WBC RBC Hgb Hct MCV MCH MCHC RDW Plt Count MPV Neutrophils % Lymphocytes % Monocytes % Eosinophils % Basophils % PT with INR INR Puncture Site Right radial ABG pH 7.42 ABG pCO2 at Pt Temp 24.8 L ABG pO2 at Pt Temp 148.0 H ABG HCO3 15.9 L ABG O2 Sat (Measured) 99.5 H ABG O2 Content 12.8 L ABG Base Excess -7.0 L Luis Armando Test Positive Oxygen Flow Rate Yes Sodium Potassium Chloride Carbon Dioxide Anion Gap BUN Creatinine Creat Clearance w eGFR Random Glucose Lactic Acid Calcium Total Bilirubin AST ALT Alkaline Phosphatase Ammonia 206.76 H Creatine Kinase Troponin I Total Protein Albumin Urine Color Yellow Urine Appearance Clear Urine pH 6.0 Ur Specific Lawrence 1.008 Urine Protein 2+ H Urine Glucose (UA) Negative Urine Ketones Negative Urine Blood 3+ H Urine Nitrite Negative Urine Bilirubin Negative Urine Urobilinogen Negative Ur Leukocyte Esterase Negative Urine WBC (Auto) 1 Urine RBC (Auto) 25 Urine Bacteria Few Salicylates Opiates Screen Methadone Screen Acetaminophen Barbiturate Screen Phencyclidine Screen Ur Amphetamines Screen MDMA (Ecstasy) Screen Benzodiazepines Screen Cocaine Screen U Marijuana (THC) Screen Alcohol, Quantitative Blood Type Antibody Screen 02/24/18 02/24/18 02/24/18 09:00 14:45 14:45 WBC RBC Hgb Hct MCV MCH MCHC RDW Plt Count MPV Neutrophils % Lymphocytes % Monocytes % Eosinophils % Basophils % PT with INR INR Puncture Site ABG pH ABG pCO2 at Pt Temp ABG pO2 at Pt Temp ABG HCO3 ABG O2 Sat (Measured) ABG O2 Content ABG Base Excess Luis Armando Test Oxygen Flow Rate Sodium 146 H Potassium 4.3 Chloride 118 H Carbon Dioxide 18 L Anion Gap 10 BUN 45 H Creatinine 3.5 H Creat Clearance w eGFR 19.04 Random Glucose 146 H D Lactic Acid Calcium 8.1 L Total Bilirubin 0.7 AST 57 H ALT 41 Alkaline Phosphatase 155 H Ammonia Creatine Kinase Troponin I Total Protein 6.2 L Albumin 2.3 L Urine Color Urine Appearance Urine pH Ur Specific Lawrence Urine Protein Urine Glucose (UA) Urine Ketones Urine Blood Urine Nitrite Urine Bilirubin Urine Urobilinogen Ur Leukocyte Esterase Urine WBC (Auto) Urine RBC (Auto) Urine Bacteria Salicylates Opiates Screen Negative Methadone Screen Negative Acetaminophen < 2.000 Barbiturate Screen Negative Phencyclidine Screen Negative Ur Amphetamines Screen Negative MDMA (Ecstasy) Screen Negative Benzodiazepines Screen Positive Cocaine Screen Negative U Marijuana (THC) Screen Negative Alcohol, Quantitative Blood Type Antibody Screen Problem List - Problems (1) Altered mental status Code(s): R41.82 - ALTERED MENTAL STATUS, UNSPECIFIED (2) History of cirrhosis of liver Code(s): Z87.19 - PERSONAL HISTORY OF OTHER DISEASES OF THE DIGESTIVE SYSTEM (3) S/P TIPS (transjugular intrahepatic portosystemic shunt) Code(s): Z95.828 - PRESENCE OF OTHER VASCULAR IMPLANTS AND GRAFTS (4) Alcohol abuse Code(s): F10.10 - ALCOHOL ABUSE, UNCOMPLICATED (5) Acute kidney injury Code(s): N17.9 - ACUTE KIDNEY FAILURE, UNSPECIFIED Assessment/Plan A 47M with history of ETOH liver cirrhosis, ?TIPS, suicide attempt with apparent acute change in mental status while in detox. Toxicology screen negative. Amonia elevated, however liver enzymes. bili, ALP, PT and presentation are not entirely consistent with pure hepatic encephalopathy. Seizure/postictal state is suspected. R/o medications overdose, metabolic encephalopathy, TIPS occlusion, liver cancer, infection. No obvious ascites on exam to suspect SBP. ?HRS vs prerenal, vs primary kidney etiology. Agree with aggressive lactulose regiment via NGT overnight. Rifaximin US abdomen and liver with Doppler Fluid challenge, or as per renal recommendations to asses prerenal azothemia vs ?HRS vs other. Discussed with pt's nurse Will reevaluate in AM
[2018-02-24] MEDS: Lacosamide 200 MG/20 ML VIAL IVPB SCH (22:13)
[2018-02-24] MEDS: hydrALAZINE HCL 20 MG/ML VIAL IVPUSH PRN (22:28)
[2018-02-24] MEDS: MUPIROCIN 2% TOPICAL OINTMENT FOR DECOLONIZATION NS SCH (23:18)
[2018-02-24] MEDS: INSULIN SLIDING SCALE (NOVOLOG) 1 VIAL SQ SCH (23:19)
[2018-02-24] MEDS: CHLORHEXIDINE GLUCONATE 4% CLEANSER FOR DECOLONIZATION TP SCH (23:19)
[2018-02-25] MEDS: LACTULOSE 20 GM/30 ML UDC (FOR ORAL USE ONLY) NGT SCH ×13 (01:21→16:43)
[2018-02-25] MEDS: hydrALAZINE HCL 20 MG/ML VIAL IVPUSH PRN ×2 (04:11→13:16)
[2018-02-25 06:04] LABS: BASO % 0.6 % (0-2.0); EOS % 1.2 % (0-4.5); HEMATOCRIT 29.6 % (35.4-49); LYMPH % 11.1 % (8-40); MCH 30.2 pg (25.7-33.7); MCHC 33.8 g/dl (32.0-35.9); MEAN CELL VOLUME 89.3 fl (80-96); MEAN PLT VOLUME 10.4 fl (7.5-11.1); MONO % 12.5 % (3.8-10.2); NEUT % 74.6 % (42.8-82.8); PLATELET COUNT 97 K/MM3 (134-434); RBC 3.31 M/mm3 (4.00-5.60); RDW 18.5 % (11.9-15.9)
[2018-02-25 06:22] LABS: INR 1.04 (0.82-1.09); PROTHROMBIN TIME (PATIENT) 11.7 SEC (9.98-11.88)
[2018-02-25 06:31] LABS: ALBUMIN 2.2 g/dl (3.4-5.0); ANION GAP 12 (8-16); BLOOD UREA NITROGEN 45 mg/dL (7-18); CALCIUM 8.3 mg/dL (8.5-10.1); CHLORIDE 123 mmol/L (98-107); CO2 15 mmol/L (21-32); GLUCOSE,RANDOM 152 mg/dL (74-106); MAGNESIUM 1.8 mg/dL (1.8-2.4); POTASSIUM 3.8 mmol/L (3.5-5.1); SODIUM 150 mmol/L (136-145)
[2018-02-25 06:33] LABS: ALK PHOS 140 U/L (45-117); BILIRUBIN,TOTAL 0.6 mg/dL (0.2-1.0); CREATININE 3.3 mg/dL (0.7-1.3); PHOSPHOROUS 4.3 mg/dL (2.5-4.9); SGOT/AST 60 U/L (15-37); SGPT/ALT 40 U/L (12-78); TOT PROT 5.9 g/dl (6.4-8.2)
[2018-02-25] MEDS: INSULIN SLIDING SCALE (NOVOLOG) 1 VIAL SQ SCH ×4 (06:56→22:46)
[2018-02-25] MEDS: PANTOPRAZOLE SODIUM 40 MG VIAL IVPUSH SCH (10:00)
[2018-02-25] MEDS: Lacosamide 200 MG/20 ML VIAL IVPB SCH ×2 (10:00→22:11)
[2018-02-25] MEDS: amLODIPine BESYLATE 10 MG TABLET (FP) NGT SCH (10:01)
[2018-02-25] MEDS: MUPIROCIN 2% TOPICAL OINTMENT FOR DECOLONIZATION NS SCH ×2 (10:01→22:08)
[2018-02-25] MEDS: RIFAXIMIN 550 MG TABLET (UD) PO SCH ×2 (10:01→22:13)
--- NOTE | 2018-02-25 11:09 | PN ---
Progress Note (short form) - Note Progress Note: PULMONARY/CCM Pt seen and examined in the ICU. Remains lethargic but more arousable today. Weakly follows some commands. Ammonia down to 80s. Producing urine. Last Vital Signs Temp Pulse Resp BP Pulse Ox 97.2 F L 107 H 18 157/110 100 02/25/18 00:26 02/25/18 08:00 02/25/18 08:11 02/25/18 08:00 02/25/18 08:11 Intake & Output 02/22/18 02/23/18 02/24/18 02/25/18 23:59 23:59 23:59 23:59 Intake Total 500 520 Output Total 900 2000 Balance -400 -1480 Weight 113.398 kg 99.564 kg Gen: lethargic but arousable Heart: tachycardic, regular Lung: decreased breath sounds at the bases Abd: soft, nontender Ext: no edema CBC, BMP 02/25/18 05:40 02/25/18 05:40 Active Medications Amlodipine Besylate (Norvasc -) 10 mg NGT DAILY [facility] Last Admin: 02/25/18 10:01 Dose: 10 mg Chlorhexidine Gluconate (Hibiclens For Decolonization -) 1 applic TP HS [facility] Last Admin: 02/24/18 23:19 Dose: 1 applic Hydralazine HCl (Apresoline Injection -) 10 mg IVPUSH Q6H PRN PRN Reason: HYPERTENSION Last Admin: 02/25/18 04:11 Dose: 10 mg Dextrose/Sodium Chloride (D5-1/2ns -) 1,000 mls @ 75 mls/hr IV ASDIR [facility] Last Admin: 02/24/18 23:23 Dose: 75 mls/hr Insulin Aspart (Novolog Vial Sliding Scale -) 1 vial SQ ACHS DEV PRN Reason: Protocol Last Admin: 02/25/18 06:56 Dose: 2 units Lacosamide (Vimpat Injection -) 100 mg IVPB BID [facility] Last Admin: 02/25/18 10:00 Dose: 100 mg Lactulose (Cephulac (Oral Use)) 20 gm NGT Q1H [facility] Last Admin: 02/25/18 10:00 Dose: 20 gm Lorazepam (Ativan Injection -) 1 mg IVPUSH Q6H PRN PRN Reason: AGITATION Mupirocin (Bactroban Ointment (For Decolonization) -) 1 applic NS BID [facility] Stop: 03/01/18 21:59 Last Admin: 02/25/18 10:01 Dose: 1 applic Pantoprazole Sodium (Protonix Iv) 40 mg IVPUSH DAILY [facility] Last Admin: 02/25/18 10:00 Dose: 40 mg Rifaximin (Xifaxan -) 550 mg PO BID [facility] Last Admin: 02/25/18 10:01 Dose: 550 mg A/P Hepatic Coma r/o Seizures Liver Cirrhosis Acute Kidney Injury Alcohol Abuse Pancytopenia HTN - lactulose, rifaximin - monitor ammonia level - saline challenge - urine lytes - monitor urine output, creatinine - aspiration precautions - antiepiletics per neuro - monitor CBC - monitor in ICU critical care time spent in reviewing chart, evaluating patient and formulating plan 35 min Problem List - Problems (1) Hepatic encephalopathy Code(s): K72.90 - HEPATIC FAILURE, UNSPECIFIED WITHOUT COMA (2) Cirrhosis of liver Code(s): K74.60 - UNSPECIFIED CIRRHOSIS OF LIVER Qualifiers: Hepatic cirrhosis type: unspecified hepatic cirrhosis Ascites presence: without ascites Qualified Code(s): K74.60 - Unspecified cirrhosis of liver (3) Acute kidney injury Code(s): N17.9 - ACUTE KIDNEY FAILURE, UNSPECIFIED (4) AA (alcohol abuse) Code(s): F10.10 - ALCOHOL ABUSE, UNCOMPLICATED (5) Hypertension Code(s): I10 - ESSENTIAL (PRIMARY) HYPERTENSION Qualifiers: Hypertension type: essential hypertension Qualified Code(s): I10 - Essential (primary) hypertension
[2018-02-25] MEDS ORDERED: LORazepam 2 MG/ML SDV VIAL IVPUSH PRN (16:05)
--- NOTE | 2018-02-25 16:18 | PN ---
Teaching Attending Note Name of Resident: Rafael Adames SUBJECTIVE: Patient seen and examined, more awake, nods 'yes' and 'no' appropriately. denies pain, however further ROS limited due to lack of co-operation OBJECTIVE: Vital Signs Period Temp Pulse Resp BP Sys/Horton Pulse Ox Last 24 Hr 97.2 F-97.4 F 78-124 18-20 155-182/77-110 100-100 Intake & Output 02/22/18 02/23/18 02/24/18 02/25/18 23:59 23:59 23:59 23:59 Intake Total 500 520 Output Total 900 2300 Balance -400 -1780 Weight 250 lb 219 lb 8 oz General: lying in bed, eyes closed to his right CVS:S1S2 tachycardic Chest: poor effort, no rales or wheezing appreciated Abdomen: soft, NT, positive bowel sounds extremities: no edema, Neuro: minimally opens eyes, nods to questions appropriately, follows few commands, RUQ movements better, withdraws both LE to pain Skin: scabs with ?circular scaling lesions over hands/extremities Home Medication List Medication Instructions Recorded Confirmed Type Escitalopram Oxalate [Lexapro -] 20 mg PO DAILY 04/28/17 02/24/18 History Quetiapine Fumarate [Seroquel] 100 mg PO HS 04/28/17 02/24/18 History Active Medications Generic Name Dose Route Start Last Admin Trade Name Freq PRN Reason Stop Dose Admin Amlodipine Besylate 10 mg 02/24/18 13:04 02/25/18 10:01 Norvasc - NGT 10 mg DAILY DEV Administration Chlorhexidine Gluconate 1 applic 02/24/18 22:00 02/24/18 23:19 Hibiclens For Decolonization - TP 1 applic HS DEV Administration Hydralazine HCl 10 mg 02/24/18 22:18 02/25/18 13:16 Apresoline Injection - IVPUSH 10 mg Q6H PRN Administration HYPERTENSION Dextrose/Sodium Chloride 500 mls @ 83 mls/hr 02/25/18 12:15 D5-1/3ns - IV ASDIR DEV Insulin Aspart 1 vial 02/24/18 22:00 02/25/18 12:54 Novolog Vial Sliding Scale - SQ Not Given ACHS [facility] Protocol Lacosamide 100 mg 02/24/18 22:00 02/25/18 10:00 Vimpat Injection - IVPB 100 mg BID DEV Administration Lactulose 20 gm 02/24/18 13:45 02/25/18 15:55 Cephulac (Oral Use) NGT Not Given Q1H DEV Lorazepam 1 mg 02/25/18 16:05 Ativan Injection - IVPUSH Q6H PRN AGITATION Mupirocin 1 applic 02/24/18 22:00 02/25/18 10:01 Bactroban Ointment (For Decolonization) - NS 03/01/18 21:59 1 applic BID DEV Administration Pantoprazole Sodium 40 mg 02/24/18 16:15 02/25/18 10:00 Protonix Iv IVPUSH 40 mg DAILY DEV Administration Rifaximin 550 mg 02/24/18 16:15 02/25/18 10:01 Xifaxan - PO 550 mg BID DEV Administration Laboratory Results - last 24 hr 02/24/18 02/25/18 02/25/18 22:59 05:40 05:40 WBC 7.0 D RBC 3.31 L Hgb 10.0 L Hct 29.6 L MCV 89.3 MCH 30.2 MCHC 33.8 RDW 18.5 H Plt Count 97 L D MPV 10.4 Neutrophils % 74.6 D Lymphocytes % 11.1 D Monocytes % 12.5 H Eosinophils % 1.2 Basophils % 0.6 PT with INR 11.70 INR 1.04 Sodium Potassium Chloride Carbon Dioxide Anion Gap BUN Creatinine Creat Clearance w eGFR POC Glucometer 144.59947 Random Glucose Lactic Acid Calcium Phosphorus Magnesium Total Bilirubin Direct Bilirubin AST ALT Alkaline Phosphatase Ammonia Total Protein Albumin 02/25/18 02/25/18 02/25/18 05:40 05:40 05:40 WBC RBC Hgb Hct MCV MCH MCHC RDW Plt Count MPV Neutrophils % Lymphocytes % Monocytes % Eosinophils % Basophils % PT with INR INR Sodium 150 H Potassium 3.8 Chloride 123 H Carbon Dioxide 15 L Anion Gap 12 BUN 45 H Creatinine 3.3 H Creat Clearance w eGFR 20.37 POC Glucometer Random Glucose 152 H Lactic Acid 1.3 Calcium 8.3 L Phosphorus 4.3 D Magnesium 1.8 Total Bilirubin 0.6 Direct Bilirubin AST 60 H ALT 40 Alkaline Phosphatase 140 H Ammonia 82.46 H Total Protein 5.9 L Albumin 2.2 L 04/12/1402/25/18 02/25/18 05:40 06:05 12:18 WBC RBC Hgb Hct MCV MCH MCHC RDW Plt Count MPV Neutrophils % Lymphocytes % Monocytes % Eosinophils % Basophils % PT with INR INR Sodium Potassium Chloride Carbon Dioxide Anion Gap BUN Creatinine Creat Clearance w eGFR POC Glucometer [phone] Random Glucose Lactic Acid Calcium Phosphorus Magnesium Total Bilirubin Direct Bilirubin 0.2 D AST ALT Alkaline Phosphatase Ammonia Total Protein Albumin Microbiology 02/24/18 07:05 Urine - Urine Warner Urine Culture - Final NO GROWTH OBTAINED ASSESSMENT AND PLAN: 47 yom with ETOH cirrhosis s/p ?TIPPS, ETOH abuse, recently in detox for the same, HTN, ?NIDDM, depression/prior suicidal attempt admitted with AMS -AMS, with urinary/bowel incontinence, right gaze deviation and focal shaking suspicious for seizures, ?Alcohol withdrawal seizures with prolonged post ictal phase compounded by hepatic encephalopathy and Delirium Tremens -ETOH abuse -ETOH cirrhosis -GRABIEL, prenal, cannot r/o hepatorenal syndrome. -Hypovolumic hypernatremia -skin lesions, ?Tinea corporis -HTN -?NIDDM -Depression/prior reported sucidal attempt swallowing razors 5 months ago Plan: Mental status with improvement today. Unable to get MRI brain given possible stent/foreign body. Repeat CT brain tomorrow. Neuro checks. Hypertension/tachycardia with ongoing current mental status raise concern for Delirium tremens. Ativan prn with caution and close monitoring of respiratory status. Detox protocol once more awake. Continue Vimpat per neurology. Follow up EEG 2D echo/carotids to complete stroke w/u but low suspicion. Lactulose change to QID, PPI, rifaximin. GI input appreciated. renal function improved. CHange IVF to D5-1/3 NS and add free water via NG tube. Renal input appreciated. ?hepatorenal syndrome, continue to monitor. MELD 18 Labetalol IV prn, however HTN/tachycardia suspicious for withdrawal. Amlodipine as tolerates. ISS, check A1c. DVTPPX with SCDs in bed GIPPX with protonix Plan discussed with OXYGEN EQUIPMENT TECHNICIAN in detail. Total critical care time spent 40 min.
--- NOTE | 2018-02-25 16:48 | PN ---
Progress Note, Physician History of Present Illness: Pt seen and examined at bedside. He is more arousable today than he was yesterday. He is moving all of his extremities. - Current Medication List Current Medications: Active Medications Amlodipine Besylate (Norvasc -) 10 mg NGT DAILY [facility] Last Admin: 02/25/18 10:01 Dose: 10 mg Chlorhexidine Gluconate (Hibiclens For Decolonization -) 1 applic TP HS [facility] Last Admin: 02/24/18 23:19 Dose: 1 applic Clotrimazole (Lotrimin 1% Cream -) 1 applic TP BID DEV Dextrose/Sodium Chloride (D5-1/3ns -) 500 mls @ 83 mls/hr IV ASDIR [facility] Insulin Aspart (Novolog Vial Sliding Scale -) 1 vial SQ ACHS [facility] PRN Reason: Protocol Last Admin: 02/25/18 12:54 Dose: Not Given Labetalol HCl (Normodyne Injection -) 10 mg IVPUSH Q6H PRN PRN Reason: HYPERTENSION Lacosamide (Vimpat Injection -) 100 mg IVPB BID [facility] Last Admin: 02/25/18 10:00 Dose: 100 mg Lactulose (Cephulac (Oral Use)) 20 gm NGT Q1H [facility] Last Admin: 02/25/18 16:43 Dose: Not Given Lorazepam (Ativan Injection -) 1 mg IVPUSH Q6H PRN PRN Reason: AGITATION Mupirocin (Bactroban Ointment (For Decolonization) -) 1 applic NS BID [facility] Stop: 03/01/18 21:59 Last Admin: 02/25/18 10:01 Dose: 1 applic Pantoprazole Sodium (Protonix Iv) 40 mg IVPUSH DAILY [facility] Last Admin: 02/25/18 10:00 Dose: 40 mg Rifaximin (Xifaxan -) 550 mg PO BID [facility] Last Admin: 02/25/18 10:01 Dose: 550 mg - Objective Vital Signs: Vital Signs Temperature 97.2 F L 02/25/18 00:26 Pulse Rate 107 H 02/25/18 08:00 Respiratory Rate 18 02/25/18 08:11 Blood Pressure 157/110 02/25/18 08:00 O2 Sat by Pulse Oximetry (%) 100 02/25/18 08:11 Constitutional: Yes: Calm Neck: Yes: Supple Cardiovascular: Yes: S1, S2 Respiratory: Yes: On Nasal O2 Gastrointestinal: Yes: Soft, Abdomen, Obese Genitourinary: Yes: Warner Present Musculoskeletal: Yes: Muscle Weakness Edema: No Integumentary: Yes: Other (multiple scars) Neurological: Yes: Lethargy Labs: CBC, BMP 02/25/18 05:40 02/25/18 05:40 INR, PTT INR 1.04 (0.82-1.09) 02/25/18 05:40 - ....Imaging Chest X-ray: Report Reviewed Problem List - Problems (1) Acute kidney injury Code(s): N17.9 - ACUTE KIDNEY FAILURE, UNSPECIFIED (2) Hepatic encephalopathy Code(s): K72.90 - HEPATIC FAILURE, UNSPECIFIED WITHOUT COMA (3) AA (alcohol abuse) Code(s): F10.10 - ALCOHOL ABUSE, UNCOMPLICATED (4) Depression Code(s): F32.9 - MAJOR DEPRESSIVE DISORDER, SINGLE EPISODE, UNSPECIFIED Qualifiers: Depression Type: dysthymia Qualified Code(s): F34.1 - Dysthymic disorder (5) Pancytopenia Code(s): D61.818 - OTHER PANCYTOPENIA Assessment/Plan Current Medications Generic Name Dose Route Start Last Admin Trade Name Freq PRN Reason Stop Dose Admin Amlodipine Besylate 10 mg 02/24/18 13:04 02/25/18 10:01 Norvasc - NGT 10 mg DAILY DEV Administration Chlorhexidine Gluconate 1 applic 02/24/18 22:00 02/24/18 23:19 Hibiclens For Decolonization - TP 1 applic HS DEV Administration Clotrimazole 1 applic 02/25/18 22:00 Lotrimin 1% Cream - TP BID DEV Dextrose/Sodium Chloride 500 mls @ 83 mls/hr 02/25/18 12:15 D5-1/3ns - IV ASDIR DEV Insulin Aspart 1 vial 02/24/18 22:00 02/25/18 12:54 Novolog Vial Sliding Scale - SQ Not Given ACHS DEV Protocol Labetalol HCl 10 mg 02/25/18 16:19 Normodyne Injection - IVPUSH Q6H PRN HYPERTENSION Lacosamide 100 mg 02/24/18 22:00 02/25/18 10:00 Vimpat Injection - IVPB 100 mg BID DEV Administration Lactulose 20 gm 02/24/18 13:45 02/25/18 16:43 Cephulac (Oral Use) NGT Not Given Q1H DEV Lorazepam 1 mg 02/25/18 16:05 Ativan Injection - IVPUSH Q6H PRN AGITATION Mupirocin 1 applic 02/24/18 22:00 02/25/18 10:01 Bactroban Ointment (For Decolonization) - NS 03/01/18 21:59 1 applic BID DEV Administration Pantoprazole Sodium 40 mg 02/24/18 16:15 02/25/18 10:00 Protonix Iv IVPUSH 40 mg DAILY DEV Administration Rifaximin 550 mg 02/24/18 16:15 02/25/18 10:01 Xifaxan - PO 550 mg BID DEV Administration Impression 1. GRABIEL 2. etoh abuse 3. depression 4. anxiety 5. hx suicide attempts 6. obesity 7. HLD 8. liver cirrhosis 9. change in mental status 10. metabolic acidosis Plan - cont with fluids, agree to switching to hypotonic solution - will give a dose of albumin - repeat labs in am - GI input appreciated - will cont fluids challenge - will re-order urine studies - cont to monitor mental status - neurology follow up Dr Sparks
[2018-02-25] MEDS ORDERED: ALBUMIN HUMAN 25% 12.5 GM/50 ML VIAL IVPB ONE (17:00)
[2018-02-25] MEDS: DEXTROSE 5%-1/3 NS - 500 ML IV SCH (18:28)
[2018-02-25] MEDS: LACTULOSE 20 GM/30 ML UDC (FOR ORAL USE ONLY) PO SCH (18:30)
--- NOTE | 2018-02-25 19:41 | PN ---
Progress Note, Physician History of Present Illness: Chart reviewed. More awake. No events. Lactulose frequency was reduced - Current Medication List Current Medications: Active Medications Amlodipine Besylate (Norvasc -) 10 mg NGT DAILY [facility] Last Admin: 02/25/18 10:01 Dose: 10 mg Chlorhexidine Gluconate (Hibiclens For Decolonization -) 1 applic TP HS [facility] Last Admin: 02/24/18 23:19 Dose: 1 applic Clotrimazole (Lotrimin 1% Cream -) 1 applic TP BID [facility] Dextrose/Sodium Chloride (D5-1/3ns -) 500 mls @ 83 mls/hr IV ASDIR [facility] Last Admin: 02/25/18 18:28 Dose: 83 mls/hr Insulin Aspart (Novolog Vial Sliding Scale -) 1 vial SQ ACHS [facility] PRN Reason: Protocol Last Admin: 02/25/18 17:28 Dose: 2 units Labetalol HCl (Normodyne Injection -) 10 mg IVPUSH Q6H PRN PRN Reason: HYPERTENSION Lacosamide (Vimpat Injection -) 100 mg IVPB BID [facility] Last Admin: 02/25/18 10:00 Dose: 100 mg Lactulose (Cephulac (Oral Use)) 20 gm PO Q6HPO [facility] Last Admin: 02/25/18 18:30 Dose: 20 gm Lorazepam (Ativan Injection -) 1 mg IVPUSH Q6H PRN PRN Reason: AGITATION Mupirocin (Bactroban Ointment (For Decolonization) -) 1 applic NS BID [facility] Stop: 03/01/18 21:59 Last Admin: 02/25/18 10:01 Dose: 1 applic Pantoprazole Sodium (Protonix Iv) 40 mg IVPUSH DAILY [facility] Last Admin: 02/25/18 10:00 Dose: 40 mg Rifaximin (Xifaxan -) 550 mg PO BID [facility] Last Admin: 02/25/18 10:01 Dose: 550 mg - Objective Vital Signs: Vital Signs Temperature 98.7 F 02/25/18 14:00 Pulse Rate 108 H 02/25/18 18:00 Respiratory Rate 17 02/25/18 18:00 Blood Pressure 155/92 02/25/18 18:00 O2 Sat by Pulse Oximetry (%) 100 02/25/18 08:11 Gastrointestinal: Yes: Soft. No: Distention, Melena, Rectal Bleeding, Tenderness, Vomiting Labs: CBC, BMP 02/25/18 05:40 02/25/18 05:40 INR, PTT INR 1.04 (0.82-1.09) 02/25/18 05:40 Abnormal Lab Results 02/26/18 02/26/18 02/26/18 05:35 05:35 05:35 RBC 2.75 L Hgb 8.3 L D Hct 25.1 L D RDW 18.5 H Plt Count 66 L D Monocytes % 18.5 H PT with INR 13.50 H INR 1.19 H PTT (Actin FS) 22.1 L D Sodium 153 H Chloride 126 H Carbon Dioxide 16 L BUN 41 H Creatinine 2.8 H Random Glucose 143 H Calcium 7.7 L Magnesium 1.6 L AST 51 H Ammonia Total Protein 5.1 L Albumin 2.0 L 02/26/18 05:35 RBC Hgb Hct RDW Plt Count Monocytes % PT with INR INR PTT (Actin FS) Sodium Chloride Carbon Dioxide BUN Creatinine Random Glucose Calcium Magnesium AST Ammonia 34.57 H Total Protein Albumin Problem List - Problems (1) Altered mental status Code(s): R41.82 - ALTERED MENTAL STATUS, UNSPECIFIED (2) History of cirrhosis of liver Code(s): Z87.19 - PERSONAL HISTORY OF OTHER DISEASES OF THE DIGESTIVE SYSTEM (3) S/P TIPS (transjugular intrahepatic portosystemic shunt) Code(s): Z95.828 - PRESENCE OF OTHER VASCULAR IMPLANTS AND GRAFTS (4) Alcohol abuse Code(s): F10.10 - ALCOHOL ABUSE, UNCOMPLICATED (5) Acute kidney injury Code(s): N17.9 - ACUTE KIDNEY FAILURE, UNSPECIFIED Assessment/Plan Continue lactulose and Rifaximin US abdomen and liver with Doppler
[2018-02-25 19:57] VITALS: BMI 33.3
[2018-02-25] MEDS ORDERED: PT OWN MED DRAWER 7, Y5N ONE (21:43)
[2018-02-25] MEDS: CHLORHEXIDINE GLUCONATE 4% CLEANSER FOR DECOLONIZATION TP SCH (22:08)
[2018-02-25] MEDS: CLOTRIMAZOLE 1% CREAM 15 GM TUBE TP SCH (22:10)
[2018-02-25] MEDS: LABETALOL HCL 5 MG/1 ML (100MG/20 ML VIAL) IVPUSH PRN (22:12)
[2018-02-26] MEDS: LACTULOSE 20 GM/30 ML UDC (FOR ORAL USE ONLY) PO SCH ×3 (00:30→13:21)
[2018-02-26 06:05] LABS: BASO % 0.6 % (0-2.0); EOS % 0.9 % (0-4.5); HEMATOCRIT 25.1 % (35.4-49); HEMOGLOBIN 8.3 GM/dL (11.7-16.9); LYMPH % 13.1 % (8-40); MCH 30.1 pg (25.7-33.7); MCHC 33.1 g/dl (32.0-35.9); MEAN PLT VOLUME 10.1 fl (7.5-11.1); MONO % 18.5 % (3.8-10.2); NEUT % 66.9 % (42.8-82.8); PLATELET COUNT 66 K/MM3 (134-434); RBC 2.75 M/mm3 (4.00-5.60); RDW 18.5 % (11.9-15.9); WHITE BLOOD COUNT 5.3 K/mm3 (4.0-10.0)
--- NOTE | 2018-02-26 06:08 | PN ---
Physical Exam: SUBJECTIVE: Patient seen and examined - Afebrile, VSS; pt awake and responsive; pulled NG tube, refusing replacement; A&Ox1; unenthused with am interview, giving limited answers; Denies any pain, vision changes, SAMUELS, f/c/n/v/d, sob, CP; OBJECTIVE: Vital Signs Intake & Output 02/23/18 02/24/18 02/25/18 02/26/18 23:59 23:59 23:59 23:59 Intake Total 500 1710 Output Total 900 2800 Balance -400 -1090 Weight 113.398 kg 99.337 kg 98.067 kg Period Temp Pulse Resp BP Sys/Horton Pulse Ox Last 24 Hr 97.2 F-98.7 F 84-120 16-20 109-181/83-110 100-100 GENERAL: Middle aged man, laying in bed, A&Ox1 HEENT: multiple small healed scabs on forehead EYES: Pupils equal, round and reactive to light, sclera anicteric, conjunctiva clear. No lid lag. EARS, NOSE, THROAT: Ears normal, nares patent, oropharynx clear without exudates. NECK: No JVD, supple LUNGS: Mild upper airway congestion. No wheezes, and no crackles. No accessory muscle use. HEART: Regular rate and rhythm, normal S1 and S2 without murmur, rub or gallop. ABDOMEN: Soft, ND, normoactive bowel sounds. Obese. MUSCULOSKELETAL: Normal range of motion at all joints. No bony deformities or tenderness. UPPER EXTREMITIES: R arm/L shoulder w/ rhythmic shaking. 2+ pulses, warm, well- perfused. No cyanosis. No clubbing. No peripheral edema. LOWER EXTREMITIES: 2+ pulses, warm, well-perfused. No calf tenderness. No peripheral edema. NEUROLOGICAL: Moving all extremities. CN 2-12 intact. Preserved sensation in all dermatomes. Laboratory Results - last 24 hr CBC, BMP 02/26/18 05:35 02/26/18 05:35 02/24/18 02/25/18 02/25/18 22:59 05:40 05:40 WBC 7.0 D RBC 3.31 L Hgb 10.0 L Hct 29.6 L MCV 89.3 MCH 30.2 MCHC 33.8 RDW 18.5 H Plt Count 97 L D MPV 10.4 Neutrophils % 74.6 D Lymphocytes % 11.1 D Monocytes % 12.5 H Eosinophils % 1.2 Basophils % 0.6 PT with INR 11.70 INR 1.04 Sodium Potassium Chloride Carbon Dioxide Anion Gap BUN Creatinine Creat Clearance w eGFR POC Glucometer [phone] Random Glucose Lactic Acid Calcium Phosphorus Magnesium Total Bilirubin Direct Bilirubin AST ALT Alkaline Phosphatase Ammonia Total Protein Albumin 02/25/18 02/25/18 02/25/18 05:40 05:40 05:40 WBC RBC Hgb Hct MCV MCH MCHC RDW Plt Count MPV Neutrophils % Lymphocytes % Monocytes % Eosinophils % Basophils % PT with INR INR Sodium 150 H Potassium 3.8 Chloride 123 H Carbon Dioxide 15 L Anion Gap 12 BUN 45 H Creatinine 3.3 H Creat Clearance w eGFR 20.37 POC Glucometer Random Glucose 152 H Lactic Acid 1.3 Calcium 8.3 L Phosphorus 4.3 D Magnesium 1.8 Total Bilirubin 0.6 Direct Bilirubin AST 60 H ALT 40 Alkaline Phosphatase 140 H Ammonia 82.46 H Total Protein 5.9 L Albumin 2.2 L 02/25/18 02/25/18 02/25/18 05:40 06:05 12:18 WBC RBC Hgb Hct MCV MCH MCHC RDW Plt Count MPV Neutrophils % Lymphocytes % Monocytes % Eosinophils % Basophils % PT with INR INR Sodium Potassium Chloride Carbon Dioxide Anion Gap BUN Creatinine Creat Clearance w eGFR POC Glucometer [phone] Random Glucose Lactic Acid Calcium Phosphorus Magnesium Total Bilirubin Direct Bilirubin 0.2 D AST ALT Alkaline Phosphatase Ammonia Total Protein Albumin 02/25/18 02/25/18 17:26 22:38 WBC RBC Hgb Hct MCV MCH MCHC RDW Plt Count MPV Neutrophils % Lymphocytes % Monocytes % Eosinophils % Basophils % PT with INR INR Sodium Potassium Chloride Carbon Dioxide Anion Gap BUN Creatinine Creat Clearance w eGFR POC Glucometer [phone] Random Glucose Lactic Acid Calcium Phosphorus Magnesium Total Bilirubin Direct Bilirubin AST ALT Alkaline Phosphatase Ammonia Total Protein Albumin Active Medications Generic Name Dose Route Start Last Admin Trade Name Freq PRN Reason Stop Dose Admin Amlodipine Besylate 10 mg 02/24/18 13:04 02/25/18 10:01 Norvasc - NGT 10 mg DAILY DEV Administration Chlorhexidine Gluconate 1 applic 02/24/18 22:00 02/25/18 22:08 Hibiclens For Decolonization - TP 1 applic HS DEV Administration Clotrimazole 1 applic 02/25/18 22:00 02/25/18 22:10 Lotrimin 1% Cream - TP 1 applic BID DEV Administration Dextrose/Sodium Chloride 500 mls @ 83 mls/hr 02/25/18 12:15 02/25/18 18:28 D5-1/3ns - IV 83 mls/hr ASDIR DEV Administration Insulin Aspart 1 vial 02/24/18 22:00 02/25/18 22:46 Novolog Vial Sliding Scale - SQ 2 units ACHS DEV Administration Protocol Labetalol HCl 10 mg 02/25/18 16:19 02/25/18 22:12 Normodyne Injection - IVPUSH 10 mg Q6H PRN Administration HYPERTENSION Lacosamide 100 mg 02/24/18 22:00 02/25/18 22:11 Vimpat Injection - IVPB 100 mg BID DEV Administration Lactulose 20 gm 02/25/18 18:00 02/25/18 18:30 Cephulac (Oral Use) PO 20 gm Q6HPO DEV Administration Lorazepam 1 mg 02/25/18 16:05 Ativan Injection - IVPUSH Q6H PRN AGITATION Mupirocin 1 applic 02/24/18 22:00 02/25/18 22:08 Bactroban Ointment (For Decolonization) - NS 03/01/18 21:59 1 applic BID DEV Administration Pantoprazole Sodium 40 mg 02/24/18 16:15 02/25/18 10:00 Protonix Iv IVPUSH 40 mg DAILY DEV Administration Rifaximin 550 mg 02/24/18 16:15 02/25/18 22:13 Xifaxan - PO 550 mg BID DEV Administration Microbiology 02/24/18 07:05 Urine - Urine Warner Urine Culture - Final NO GROWTH OBTAINED CXR 02/24 - NG tube in place. No acute pathology CT head 02/24- No pathology noted EKG 02/24 - NSR, rate 95, QTC 449, multiple PACs, borderline peaked twaves in v4- v6; likely artifact Carotid doppler 02/24 - no evidence of hemodynamically significant stenosis CXR 02/25 - No change from prior CXR. repeat for confirmation of NG tube Ab sono/duplex 02/25 - IMPRESSION: Hepatic cirrhosis. Diffuse hepatic steatosis. Splenomegaly (with apparent increased size in comparison to a CT exam of 2016). The main portal vein and hepatic veins appear to be patent with physiologic flow direction. A TIPS shunt is seen in place although shunt patency is difficult to document on the current study. Correlation with close follow-up sonography may be performed. Alternatively correlate with contrast- enhanced CT (with targeted imaging of the TIPS shunt). Cholelithiasis. As on a previous ultrasound exam of 08/03/2015 there is mild diffuse gallbladder wall thickening which may be associated with hepatic disease (versus acute cholecystitis). Clinical/laboratory correlation is suggested. No definite biliary tract dilatation is identified. Right pleural effusion. ASSESSMENT/PLAN: 47 yo man w/ pmh of ETOH abuse, HTN, ?NIDDM, depression, HLD and prior suicide attempt, cirrhosis (2/2 ETOH use, S/p TIPS per prior note), who presents obtunded with possible seizure this AM from [place], currently undergoing detox program for alcohol abuse. Pt MS much improve, A&Ox3 in PM today. #Suspected hepatic encephalopathy c/b possible seizures - ammonia normalized 35 - GI consulted, recs appreciated - lactulose QID - Neuro consulted, recs appreciated - f/u EEG - Vimpat BID - IVFs - Ativan 1mg PRN - PPI - Rifaximin BID - NG tube pulled; S+S recs noted; pt ordered for diabetic diet - Detox consulted, Dr. Salazar - Restart librium taper #ESLD - MELD 18 - GI consulted - trend LFTs - RUQ U/S as noted above - monitor for ascites #GRABIEL (Possible hepatorenal syndrome) - Cr 3.5 -> 2.8 today - Renal consulted - Trend Cr - Switched to PO hydration - Warner d/c'ed #HyperNa - 153 today - PO hydration - Trend Na #NIDDM - A1C 4.8; D5w stopped - ISS - BGM Q4h #HTN - monitor; HTN to 180s in AM - Labetalol IV PRN - C/w home amlodipine - hold lisinopril in setting of GRABIEL #Alcohol abuse - consider possible withdrawal seizures - Monitor for withdrawal symptoms once MS improves - c/w librium taper PPX HSQ after repeat CT head FEN PO hydration Daily lytes Diabetic diet Plan discussed with attending, Dr. Zacarias Bolivar, PGY1 Visit type - Emergency Visit Emergency Visit: Yes ED Registration Date: 02/24/18 Care time: The patient presented to the Emergency Department on the above date and was hospitalized for further evaluation of their emergent condition. - New Patient This patient is new to me today: No - Critical Care Critical Care patient: Yes Total Critical Care Time (in minutes): 35 Critical Care Statement: The care of this patient involved high complexity decision making to prevent further life threatening deterioration of the patient 's condition and/or to evaluate & treat vital organ system(s) failure or risk of failure.
[2018-02-26] MEDS: LABETALOL HCL 5 MG/1 ML (100MG/20 ML VIAL) IVPUSH PRN (06:09)
[2018-02-26] MEDS: INSULIN SLIDING SCALE (NOVOLOG) 1 VIAL SQ SCH ×4 (06:11→22:10)
[2018-02-26] MEDS: DEXTROSE 5%-1/3 NS - 500 ML IV SCH (06:13)
[2018-02-26 06:17] LABS: INR 1.19 (0.82-1.09); PROTHROMBIN TIME (PATIENT) 13.5 SEC (9.98-11.88)
[2018-02-26 06:19] LABS: ACTIVATED PTT 22.1 SECONDS (26.9-34.4)
[2018-02-26 06:25] LABS: ANION GAP 11 (8-16); BLOOD UREA NITROGEN 41 mg/dL (7-18); CALCIUM 7.7 mg/dL (8.5-10.1); CHLORIDE 126 mmol/L (98-107); CO2 16 mmol/L (21-32); CREATININE 2.8 mg/dL (0.7-1.3); GLUCOSE,RANDOM 143 mg/dL (74-106); MAGNESIUM 1.6 mg/dL (1.8-2.4); PHOSPHOROUS 4.9 mg/dL (2.5-4.9); POTASSIUM 3.5 mmol/L (3.5-5.1); SGOT/AST 51 U/L (15-37); SGPT/ALT 31 U/L (12-78); SODIUM 153 mmol/L (136-145)
[2018-02-26 06:27] LABS: ALK PHOS 106 U/L (45-117); BILIRUBIN,TOTAL 0.6 mg/dL (0.2-1.0); TOT PROT 5.1 g/dl (6.4-8.2)
[2018-02-26] MEDS ORDERED: MAGNESIUM SULF 50% (8.12 MEQ/2 ML-1 GM VIAL) IVPB ONE (08:34)
[2018-02-26] MEDS ORDERED: MAGNESIUM 1GM/D5W - 1 GM/100 ML IVPB IVPB ONE (09:00)
[2018-02-26] MEDS ORDERED: chlordiazePOXIDE HCL 25 MG CAPSULE PO PRN ×2 (09:42→14:26)
[2018-02-26] MEDS ORDERED: DEXTROSE 5%-WATER - 1,000 ML IV SCH ×3 (09:45→13:45)
[2018-02-26] MEDS ORDERED: PANTOPRAZOLE SODIUM 40 MG VIAL IVPUSH SCH (10:00)
[2018-02-26] MEDS ORDERED: PT OWN MED DRAWER 7, Y5N ONE ×2 (10:08→22:05)
[2018-02-26] MEDS: Lacosamide 200 MG/20 ML VIAL IVPB SCH ×2 (10:12→22:08)
[2018-02-26] MEDS: RIFAXIMIN 550 MG TABLET (UD) PO SCH ×2 (10:12→22:09)
[2018-02-26] MEDS: amLODIPine BESYLATE 10 MG TABLET (FP) NGT SCH (10:12)
[2018-02-26] MEDS: CLOTRIMAZOLE 1% CREAM 15 GM TUBE TP SCH ×2 (10:13→22:10)
[2018-02-26] MEDS: MUPIROCIN 2% TOPICAL OINTMENT FOR DECOLONIZATION NS SCH (10:56)
[2018-02-26] MEDS ORDERED: chlordiazePOXIDE HCL 25 MG CAPSULE PO SCH (11:00)
--- NOTE | 2018-02-26 11:18 | MSN ---
Progress Note (short form) - Note Progress Note: 47 y/o male with pmhx of HTN, depression, ETOH abuse, HLD and prior suicide attempt is admitted to ICU for hepatic encephalopathy. Patient is currently at [facility]. Patient experienced an episode where he was founded obtunded and had bowel and bladder incontinence. He was unresponsive to commands but did withdraw to pain. The patient does not had remember having this episode and believes he had too much vodka the night before. He is alert to person and place but not time. He denies thoughts of hurting himself or others at this time and hearing voices. He does have a tremor which is present at rest and with movement
--- NOTE | 2018-02-26 12:03 | PN ---
Physical Exam: SUBJECTIVE: Mr. Martinez reports that he is hungry and thirsty this morning. He has no other complaints. OBJECTIVE: No acute events overnight Vital Signs Period Temp Pulse Resp BP Sys/Horton Pulse Ox Last 24 Hr 97.2 F-99.3 F 84-119 14-19 137-184/83-105 100 GENERAL: The patient is awake, alert, and oriented to person and place - in no acute distress. HEAD: Normal with no signs of trauma. EYES: PERRL, extraocular movements intact, sclera anicteric, conjunctiva clear. No ptosis. ENT: Ears normal, nares patent, oropharynx clear without exudates, moist mucous membranes. NECK: Trachea midline, full range of motion, supple. LUNGS: Breath sounds equal, clear to auscultation bilaterally, no wheezes, no crackles, no accessory muscle use. HEART: Regular rate and rhythm, S1, S2 without murmur, rub or gallop. ABDOMEN: Soft, nontender, nondistended, normoactive bowel sounds, no guarding, no rebound, no hepatosplenomegaly, no masses. EXTREMITIES: 2+ pulses, warm, well-perfused, no edema. NEUROLOGICAL: Cranial nerves II through XII grossly intact. Normal speech, gait not observed. PSYCH: Normal mood, normal affect. SKIN: Warm, dry, normal turgor, no rashes or lesions noted Laboratory Results - last 24 hr 02/25/18 02/25/18 02/25/18 12:18 17:26 22:38 WBC RBC Hgb Hct MCV MCH MCHC RDW Plt Count MPV Neutrophils % Lymphocytes % Monocytes % Eosinophils % Basophils % PT with INR INR PTT (Actin FS) Sodium Potassium Chloride Carbon Dioxide Anion Gap BUN Creatinine Creat Clearance w eGFR POC Glucometer 154.60600 176.12558 168.14711 Random Glucose Calcium Phosphorus Magnesium Total Bilirubin AST ALT Alkaline Phosphatase Ammonia Total Protein Albumin 02/26/18 02/26/18 02/26/18 05:35 05:35 05:35 WBC 5.3 RBC 2.75 L Hgb 8.3 L D Hct 25.1 L D MCV 91.0 MCH 30.1 MCHC 33.1 RDW 18.5 H Plt Count 66 L D MPV 10.1 Neutrophils % 66.9 Lymphocytes % 13.1 Monocytes % 18.5 H Eosinophils % 0.9 Basophils % 0.6 PT with INR 13.50 H INR 1.19 H PTT (Actin FS) 22.1 L D Sodium 153 H Potassium 3.5 Chloride 126 H Carbon Dioxide 16 L Anion Gap 11 BUN 41 H Creatinine 2.8 H Creat Clearance w eGFR 24.63 POC Glucometer Random Glucose 143 H Calcium 7.7 L Phosphorus 4.9 Magnesium 1.6 L Total Bilirubin 0.6 AST 51 H ALT 31 D Alkaline Phosphatase 106 D Ammonia Total Protein 5.1 L Albumin 2.0 L 02/26/18 02/26/18 05:35 05:48 WBC RBC Hgb Hct MCV MCH MCHC RDW Plt Count MPV Neutrophils % Lymphocytes % Monocytes % Eosinophils % Basophils % PT with INR INR PTT (Actin FS) Sodium Potassium Chloride Carbon Dioxide Anion Gap BUN Creatinine Creat Clearance w eGFR POC Glucometer [phone] Random Glucose Calcium Phosphorus Magnesium Total Bilirubin AST ALT Alkaline Phosphatase Ammonia 34.57 H Total Protein Albumin Active Medications Generic Name Dose Route Start Last Admin Trade Name Freq PRN Reason Stop Dose Admin Amlodipine Besylate 10 mg 02/24/18 13:04 02/26/18 10:12 Norvasc - NGT 10 mg DAILY DEV Administration Chlordiazepoxide HCl 50 mg 02/26/18 11:00 02/26/18 10:14 Librium - PO 02/27/18 05:01 50 mg [id number] DEV Administration Chlordiazepoxide HCl 25 mg 02/27/18 11:00 Librium - PO 02/28/18 05:01 [id number] DEV Chlordiazepoxide HCl 15 mg 02/28/18 11:00 Librium - PO 03/01/18 05:01 [id number] DEV Chlordiazepoxide HCl 25 mg 02/26/18 09:42 Librium - PO 03/01/18 09:41 Q4H PRN WITHDRAWAL(CONT SUBST) Chlorhexidine Gluconate 1 applic 02/24/18 22:00 02/25/18 22:08 Hibiclens For Decolonization - TP 1 applic HS DEV Administration Clotrimazole 1 applic 02/25/18 22:00 02/26/18 10:13 Lotrimin 1% Cream - TP 1 applic BID DEV Administration Dextrose 1,000 mls @ 75 mls/hr 02/26/18 09:50 02/26/18 10:15 D5w - IV 75 mls/hr .Q12H3M DEV Administration Insulin Aspart 1 vial 02/24/18 22:00 02/26/18 06:11 Novolog Vial Sliding Scale - SQ 2 units ACHS DEV Administration Protocol Labetalol HCl 10 mg 02/25/18 16:19 02/26/18 06:09 Normodyne Injection - IVPUSH 10 mg Q6H PRN Administration HYPERTENSION Lacosamide 100 mg 02/24/18 22:00 02/26/18 10:12 Vimpat Injection - IVPB 100 mg BID DEV Administration Lactulose 20 gm 02/25/18 18:00 02/26/18 06:10 Cephulac (Oral Use) PO Not Given Q6HPO DEV Lorazepam 1 mg 02/25/18 16:05 Ativan Injection - IVPUSH Q6H PRN AGITATION Mupirocin 1 applic 02/24/18 22:00 02/26/18 10:56 Bactroban Ointment (For Decolonization) - NS 03/01/18 21:59 1 applic BID DEV Administration Pantoprazole Sodium 40 mg 02/26/18 10:00 02/26/18 10:12 Protonix Iv IVPUSH 40 mg BID DEV Administration Rifaximin 550 mg 02/24/18 16:15 02/26/18 10:12 Xifaxan - PO 550 mg BID DEV Administration ASSESSMENT/PLAN: Mr. 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 Hepatic encephalopathy - GI consulted - Neuro consulted - lactulose - Ativan PRN - Rifaximin - Ammonia downtrending (34.57 today), continue to follow GRABIEL - Renal consulted - Trend Creatinine - IV fluids - Warner in place NIDDM - sliding scale insulin - Q4 BGM HTN - home amlodipine dose - Lisinopril currently held for GRABIEL Alcohol abuse - Librium / Ativan for withdrawal symptoms - Folic acid / Thiamine - Detox consultation placed FEN - IV fluids as ordered - Replete electrolytes PRN - Diabetic Diet Prophylactic - SQH Disposition - Pending transfer to floor Visit type - Emergency Visit Emergency Visit: Yes ED Registration Date: 02/24/18 Care time: The patient presented to the Emergency Department on the above date and was hospitalized for further evaluation of their emergent condition. - New Patient This patient is new to me today: Yes Date on this admission: 02/26/18 - Critical Care Critical Care patient: Yes Total Critical Care Time (in minutes): 38 Critical Care Statement: The care of this patient involved high complexity decision making to prevent further life threatening deterioration of the patient 's condition and/or to evaluate & treat vital organ system(s) failure or risk of failure.
[2018-02-26] MEDS ORDERED: THIAMINE HCL 100 MG TABLET (FP) PO SCH (12:15)
[2018-02-26] MEDS ORDERED: FOLIC ACID 1 MG TABLET (FP) PO SCH (12:15)
--- NOTE | 2018-02-26 12:19 | CONSULT ---
Consult Detox [facility] Reason for Current Admission/Consult: substance use Referred by:: randall reynaga - History History of Present Illness: 47 yo m transferred to [facility] w [facility], was recieving libirum detox for alcohol use dioreder, severe with withdrawal sx, PMHX HTN, ?NIDDM, depression, HLD and prior suicide attempt, cirrhosis (2/2 ETOH use, S/p TIPS per prior note), now responsive, without complaints but initially presentted obtuneded with possible seizure this AM from [facility]. Libirum detox continued here. P Pt with no documented prior hx of epilepsy. - History Source History Provided By: Patient, Medical Record, Caregiver - Alcohol/Substance Use Hx Alcohol Use: Yes (see [facility] h and p) - Past Medical History Cardio/Vascular: Yes: HTN, Hyperlipdemia Hepatobiliary: Yes: Cirrhosis Renal/: Yes: Hematuria. No: Renal Calculi, UTI Endocrine: Yes: Diabetes Mellitus - Significant Medical Findings: 47 yo m from [facility] where it appears e suffered an alcohol wihdrwal seizure and was transferred to [facility] for evaluation of [place] seizures and stabilization, tolerating detox althoug still has fine tremors CIWA Score - CIWA Score Nausea/Vomitin-No Nausea/No Vomiting Muscle Tremors: 1-None Visible, but [place] Anxiety: 0-No Anxiety, at Ease Agitation: 0-Normal Activity Paroxysmal Sweats: No Perspiration Orientation: 0-Oriented Tacttile Disturbances: 0-None Auditory Disturbances: 0-None Visual Disturbances: 0-None Headache: 0-None Present CIWA-Ar Total Score: 1 Assessment Plan - Diagnosis (1) Acute kidney injury Status: Acute (2) Hepatic encephalopathy Status: Acute (3) History of cirrhosis of liver Status: Acute (4) Alcohol dependence with uncomplicated withdrawal Status: Acute (5) Drug-induced mood disorder Status: Acute (6) Nicotine dependence Status: Acute Qualifiers: Nicotine product type: cigarettes Substance use status: uncomplicated Qualified Code(s): F17.210 - Nicotine dependence, cigarettes, uncomplicated (7) Diabetes 1.5, managed as type 1 Status: Chronic (8) Essential hypertension Status: Chronic (9) Hypercholesterolemia Status: Chronic (10) Psoriasis Status: Chronic - Plan Plan: chart , imaging, labs reviewed. Histroy taken and patietn examined. Recommend: 1. alcohol use idorder, severe - cont libirum detox as oredered. 2. fluids, mvi 3. ams - alcohol withdrwal seizure, may have superimpoposed hepatic encephalopathy - check ammoni level 4. geoff - rehydrate dm/ht control as per primary team 5. [patient may reutrn to [facility] when medically stable to copmlete detox or for rehab. Ranjit Pope MD [phone] - Medication Detox Regimen/Protocol: Librium
--- NOTE | 2018-02-26 13:10 | CONSULT ---
Admitting History and Physical - Admission History of Present Illness: Per EMR: Patient is a 47M with history of HTN, DM, depression, suicidal attempt 5 months ago after swallowing razors, cirrhosis, and alcohol abuse sent here from [facility] for altered mental status. He was found down in his bed by nursing this morning, last known well was 12:30am. He was found with urinary and fecal incontinence. Glucose was 129. Patient was not responding to commands, but was withdrawing from pain. Patient is not able to contribute to history, non-verbal. Pt presented obtunded with possible seizure this AM from [facility], currently undergoing detox program for alcohol abuse. #Suspected hepatic encephalopathy c/b possible seizures Pt pulled out his NGT last night. c/o throat pain History Source: Medical Record Limitations to Obtaining History: Clinical Condition - Past Medical History Cardiovascular: Yes: HTN, Hyperlipdemia Hepatobiliary: Yes: Cirrhosis Renal/: Yes: Hematuria. No: Renal Calculi, UTI Heme/Onc: Yes: Thrombocytopenia Endocrine: Yes: Diabetes Mellitus - Smoking History Smoking history: Current some day smoker Have you smoked in the past 12 months: No Aproximately how many cigarettes per day: 2 If you are a former smoker, when did you quit?: 2010 - Alcohol/Substance Use Hx Alcohol Use: Yes History - Admission Reason For Visit: HEPATIC ENCEPHALOPATHY - Diagnostics X-ray: Report Reviewed - General Mental Status: Alert and Oriented (x 2), Awake and Alert, Able to Follow Commands Attention: Intact Ability to Follow Directions: Good Head/Neck Control: WFL - Hearing Hearing: Functional Speech Evaluation - Communication Primary Language: SENEGALESE Communication: Yes: Within Normal Limits Oral Expression Ability: Yes: No Impairment - Speech Characteristics Voice Loudness: Normal Voice Pitch: Yes: Normal Voice Phonatory-based Quality: Yes: Normal Speech Pattern: Normal Speech Clarity: < 100% Nasal Resonance: Normal Articulation: Yes: Precise - Language/Auditory Comprehension Follows: Yes: 1 Stage Simple Commands - Language/Verbal Expression Functional Communication Status: Yes: WNL - Swallow Evaluation/Bedside Assessment Current Nutritional Intake: Regular, Thin Liquids Oral Secretions: Yes: WFL Facial Symmetry at Rest: Symmetrical Facial Symmetry on Retraction: Symmetrical Against Resistance Opening: Normal Against Resistance Closing: Normal Pucker Lips: Normal Smile: Normal Lingual Movement: Normal, Symmetric Lingual Speed of Movement: Normal Lingual Movement Strgth Against Opposition: Normal Lingual Movement Characteristics: Normal Velopharyngeal Movement: Normal Laryngeal Elevation: WFL Laryngeal Movement: Able to Palpate Rate of Intake: WFL Bolus Size: WFL Labial Seal: WFL Chewing: WFL Oral Prep Time: WFL A-P Transit: WFL Pocketing: None Timing of Swallow: WFL Odynophagia: Pharyngeal (Pt pulled out his NGT last night. c/o throat pain) Coughing/Throat Clear: No Change in Voice: No Recommendations - Speech Evaluation, Impression/Plan Impression: Pt pulled out his NGT last night. c/o throat pain. Swallowing overtly intact. - Dysphagia Impressions/Plan Swallowing Skills: WFL *Silent aspiration: cannot be R/O at bedside - Recommendations Diet Consistency: Regular (soft) Medication Administration: Whole with water Liquids: Thin Liquids
--- NOTE | 2018-02-26 13:17 | PN ---
Teaching Attending Note Name of Resident: Alli Wood ATTENDING PHYSICIAN STATEMENT I saw and evaluated the patient. I reviewed the resident's note and discussed the case with the resident. I agree with the resident's findings and plan as documented. SUBJECTIVE: Patient seen and examined in the ICU. Awake and responsive. Appears slightly tremulous. Denies CP or SOB. Intake & Output 02/23/18 02/24/18 02/25/18 02/26/18 23:59 23:59 23:59 23:59 Intake Total 500 1710 2300 Output Total 900 2800 400 Balance -400 -1090 1900 Weight 250 lb 219 lb 216 lb 3.2 oz Last Vital Signs Temp Pulse Resp BP Pulse Ox 99.3 F 81 16 123/65 98 02/26/18 10:36 02/26/18 12:00 02/26/18 12:00 02/26/18 12:00 02/26/18 10:00 Active Medications Amlodipine Besylate (Norvasc -) 10 mg NGT DAILY [facility] Last Admin: 02/26/18 10:12 Dose: 10 mg Chlordiazepoxide HCl (Librium -) 50 mg PO [id number] [facility] Stop: 02/27/18 05:01 Last Admin: 02/26/18 10:14 Dose: 50 mg Chlordiazepoxide HCl (Librium -) 25 mg PO [id number] [facility] Stop: 02/28/18 05:01 Chlordiazepoxide HCl (Librium -) 15 mg PO [id number] [facility] Stop: 03/01/18 05:01 Chlordiazepoxide HCl (Librium -) 25 mg PO Q4H PRN PRN Reason: WITHDRAWAL(CONT SUBST) Stop: 03/01/18 09:41 Chlorhexidine Gluconate (Hibiclens For Decolonization -) 1 applic TP HS [facility] Last Admin: 02/25/18 22:08 Dose: 1 applic Clotrimazole (Lotrimin 1% Cream -) 1 applic TP BID [facility] Last Admin: 02/26/18 10:13 Dose: 1 applic Folic Acid (Folic Acid -) 1 mg PO DAILY [facility] Dextrose (D5w -) 1,000 mls @ 75 mls/hr IV .Q12H3M [facility] Last Admin: 02/26/18 10:15 Dose: 75 mls/hr Insulin Aspart (Novolog Vial Sliding Scale -) 1 vial SQ ACHS DEV PRN Reason: Protocol Last Admin: 02/26/18 12:47 Dose: 2 units Labetalol HCl (Normodyne Injection -) 10 mg IVPUSH Q6H PRN PRN Reason: HYPERTENSION Last Admin: 02/26/18 06:09 Dose: 10 mg Lacosamide (Vimpat Injection -) 100 mg IVPB BID [facility] Last Admin: 02/26/18 10:12 Dose: 100 mg Lactulose (Cephulac (Oral Use)) 20 gm PO Q6HPO [facility] Last Admin: 02/26/18 06:10 Dose: Not Given Lorazepam (Ativan Injection -) 1 mg IVPUSH Q6H PRN PRN Reason: AGITATION Mupirocin (Bactroban Ointment (For Decolonization) -) 1 applic NS BID [facility] Stop: 03/01/18 21:59 Last Admin: 02/26/18 10:56 Dose: 1 applic Pantoprazole Sodium (Protonix Iv) 40 mg IVPUSH BID [facility] Last Admin: 02/26/18 10:12 Dose: 40 mg Rifaximin (Xifaxan -) 550 mg PO BID [facility] Last Admin: 02/26/18 10:12 Dose: 550 mg Thiamine HCl (Vitamin B1 -) 100 mg PO DAILY [facility] Gen: Awake and interactive Heart: S1S2, regular Lung: decreased breath sounds at the bases Abd: soft, nontender Ext: no edema Laboratory Results - last 24 hr 02/25/18 02/25/18 02/26/18 17:26 22:38 05:35 WBC 5.3 RBC 2.75 L Hgb 8.3 L D Hct 25.1 L D MCV 91.0 MCH 30.1 MCHC 33.1 RDW 18.5 H Plt Count 66 L D MPV 10.1 Neutrophils % 66.9 Lymphocytes % 13.1 Monocytes % 18.5 H Eosinophils % 0.9 Basophils % 0.6 PT with INR INR PTT (Actin FS) Sodium Potassium Chloride Carbon Dioxide Anion Gap BUN Creatinine Creat Clearance w eGFR POC Glucometer 176.36042 168.34712 Random Glucose Hemoglobin A1c % Calcium Phosphorus Magnesium Total Bilirubin AST ALT Alkaline Phosphatase Ammonia Total Protein Albumin 02/26/18 02/26/18 02/26/18 05:35 05:35 05:35 WBC RBC Hgb Hct MCV MCH MCHC RDW Plt Count MPV Neutrophils % Lymphocytes % Monocytes % Eosinophils % Basophils % PT with INR 13.50 H INR 1.19 H PTT (Actin FS) 22.1 L D Sodium 153 H Potassium 3.5 Chloride 126 H Carbon Dioxide 16 L Anion Gap 11 BUN 41 H Creatinine 2.8 H Creat Clearance w eGFR 24.63 POC Glucometer Random Glucose 143 H Hemoglobin A1c % Calcium 7.7 L Phosphorus 4.9 Magnesium 1.6 L Total Bilirubin 0.6 AST 51 H ALT 31 D Alkaline Phosphatase 106 D Ammonia 34.57 H Total Protein 5.1 L Albumin 2.0 L 02/26/18 02/26/18 02/26/18 05:35 05:48 12:44 WBC RBC Hgb Hct MCV MCH MCHC RDW Plt Count MPV Neutrophils % Lymphocytes % Monocytes % Eosinophils % Basophils % PT with INR INR PTT (Actin FS) Sodium Potassium Chloride Carbon Dioxide Anion Gap BUN Creatinine Creat Clearance w eGFR POC Glucometer 171.96336 152.68749 Random Glucose Hemoglobin A1c % 4.8 D Calcium Phosphorus Magnesium Total Bilirubin AST ALT Alkaline Phosphatase Ammonia Total Protein Albumin Problem List - Problems (1) Hepatic encephalopathy Code(s): K72.90 - HEPATIC FAILURE, UNSPECIFIED WITHOUT COMA (2) Cirrhosis of liver Code(s): K74.60 - UNSPECIFIED CIRRHOSIS OF LIVER Qualifiers: Hepatic cirrhosis type: unspecified hepatic cirrhosis Ascites presence: without ascites Qualified Code(s): K74.60 - Unspecified cirrhosis of liver (3) Acute kidney injury Code(s): N17.9 - ACUTE KIDNEY FAILURE, UNSPECIFIED (4) AA (alcohol abuse) Code(s): F10.10 - ALCOHOL ABUSE, UNCOMPLICATED (5) Hypertension Code(s): I10 - ESSENTIAL (PRIMARY) HYPERTENSION Qualifiers: Hypertension type: essential hypertension Qualified Code(s): I10 - Essential (primary) hypertension A/P Hepatic Encephalopathy (?) Seizures Liver Cirrhosis Acute Kidney Injury Alcohol Abuse Pancytopenia HTN - lactulose, rifaximin - monitor ammonia level - IVF - monitor urine output, creatinine - aspiration precautions - antiepiletics per neuro - monitor CBC - Librium protocol Dr Rob Critical care time spent in reviewing chart, evaluating patient and formulating plan 35 min
--- NOTE | 2018-02-26 13:30 | PN ---
Teaching Attending Note Name of Resident: Jude Bolivar ATTENDING PHYSICIAN STATEMENT I saw and evaluated the patient. I reviewed the resident's note and discussed the case with the resident. I agree with the resident's findings and plan as documented with exceptions mentioned below. SUBJECTIVE: Patient seen and examined. awake, conversant, denies any pain, reports drinking every other day, unsure of his last drink. Denies any nausea, vomiting, abdominal pain, dizziness or dyspnea. OBJECTIVE: Vital Signs Period Temp Pulse Resp BP Sys/Horton Pulse Ox Last 24 Hr 97.2 F-99.3 F 81-119 14-19 123-184/65-105 98-100 Intake & Output 02/23/18 02/24/18 02/25/18 02/26/18 23:59 23:59 23:59 23:59 Intake Total 500 1710 2300 Output Total 900 2800 400 Balance -400 -1090 1900 Weight 250 lb 219 lb 216 lb 3.2 oz General: sitting in bed, awake, oriented to self and place, conversant no acute distress CVS:S1S2 regular tachycardic Chest: Decreased effort but no rales or wheezing Abdomen: soft, distended, NT throughout Extremities: no edema, DP pulses present bilaterally, Neuro: AA, oriented to self and place, but not to time, able to state his birthday, power 4/5 generalized. Intentional tremors/Shaking noted with RUE, facial symmetry, tongue midline, EOMI, no pronator drift Skin: scabs with ?circular lesions Home Medication List Medication Instructions Recorded Confirmed Type Escitalopram Oxalate [Lexapro -] 20 mg PO DAILY 04/28/17 02/24/18 History Quetiapine Fumarate [Seroquel] 100 mg PO HS 04/28/17 02/24/18 History Active Medications Generic Name Dose Route Start Last Admin Trade Name Freq PRN Reason Stop Dose Admin Amlodipine Besylate 10 mg 02/24/18 13:04 02/26/18 10:12 Norvasc - NGT 10 mg DAILY DEV Administration Chlordiazepoxide HCl 50 mg 02/26/18 11:00 02/26/18 10:14 Librium - PO 02/27/18 05:01 50 mg [id number] DEV Administration Chlordiazepoxide HCl 25 mg 02/27/18 11:00 Librium - PO 02/28/18 05:01 [id number] DEV Chlordiazepoxide HCl 15 mg 02/28/18 11:00 Librium - PO 03/01/18 05:01 [id number] DEV Chlordiazepoxide HCl 25 mg 02/26/18 09:42 Librium - PO 03/01/18 09:41 Q4H PRN WITHDRAWAL(CONT SUBST) Chlorhexidine Gluconate 1 applic 02/24/18 22:00 02/25/18 22:08 Hibiclens For Decolonization - TP 1 applic HS DEV Administration Clotrimazole 1 applic 02/25/18 22:00 02/26/18 10:13 Lotrimin 1% Cream - TP 1 applic BID DEV Administration Folic Acid 1 mg 02/26/18 12:15 02/26/18 13:21 Folic Acid - PO 1 mg DAILY DEV Administration Dextrose 1,000 mls @ 75 mls/hr 02/26/18 09:50 02/26/18 10:15 D5w - IV 75 mls/hr .Q12H3M DEV Administration Insulin Aspart 1 vial 02/24/18 22:00 02/26/18 12:47 Novolog Vial Sliding Scale - SQ 2 units ACHS DEV Administration Protocol Labetalol HCl 10 mg 02/25/18 16:19 02/26/18 06:09 Normodyne Injection - IVPUSH 10 mg Q6H PRN Administration HYPERTENSION Lacosamide 100 mg 02/24/18 22:00 02/26/18 10:12 Vimpat Injection - IVPB 100 mg BID DEV Administration Lactulose 20 gm 02/25/18 18:00 02/26/18 13:21 Cephulac (Oral Use) PO 20 gm Q6HPO DEV Administration Lorazepam 1 mg 02/25/18 16:05 Ativan Injection - IVPUSH Q6H PRN AGITATION Mupirocin 1 applic 02/24/18 22:00 02/26/18 10:56 Bactroban Ointment (For Decolonization) - NS 03/01/18 21:59 1 applic BID DEV Administration Pantoprazole Sodium 40 mg 02/26/18 10:00 02/26/18 10:12 Protonix Iv IVPUSH 40 mg BID DEV Administration Rifaximin 550 mg 02/24/18 16:15 02/26/18 10:12 Xifaxan - PO 550 mg BID DEV Administration Thiamine HCl 100 mg 02/26/18 12:15 02/26/18 13:21 Vitamin B1 - PO 100 mg DAILY DEV Administration Laboratory Results - last 24 hr 02/25/18 02/25/18 02/26/18 17:26 22:38 05:35 WBC 5.3 RBC 2.75 L Hgb 8.3 L D Hct 25.1 L D MCV 91.0 MCH 30.1 MCHC 33.1 RDW 18.5 H Plt Count 66 L D MPV 10.1 Neutrophils % 66.9 Lymphocytes % 13.1 Monocytes % 18.5 H Eosinophils % 0.9 Basophils % 0.6 PT with INR INR PTT (Actin FS) Sodium Potassium Chloride Carbon Dioxide Anion Gap BUN Creatinine Creat Clearance w eGFR POC Glucometer 176.66841 168.13528 Random Glucose Hemoglobin A1c % Calcium Phosphorus Magnesium Total Bilirubin AST ALT Alkaline Phosphatase Ammonia Total Protein Albumin 02/26/18 02/26/18 02/26/18 05:35 05:35 05:35 WBC RBC Hgb Hct MCV MCH MCHC RDW Plt Count MPV Neutrophils % Lymphocytes % Monocytes % Eosinophils % Basophils % PT with INR 13.50 H INR 1.19 H PTT (Actin FS) 22.1 L D Sodium 153 H Potassium 3.5 Chloride 126 H Carbon Dioxide 16 L Anion Gap 11 BUN 41 H Creatinine 2.8 H Creat Clearance w eGFR 24.63 POC Glucometer Random Glucose 143 H Hemoglobin A1c % Calcium 7.7 L Phosphorus 4.9 Magnesium 1.6 L Total Bilirubin 0.6 AST 51 H ALT 31 D Alkaline Phosphatase 106 D Ammonia 34.57 H Total Protein 5.1 L Albumin 2.0 L 02/26/18 02/26/18 02/26/18 05:35 05:48 12:44 WBC RBC Hgb Hct MCV MCH MCHC RDW Plt Count MPV Neutrophils % Lymphocytes % Monocytes % Eosinophils % Basophils % PT with INR INR PTT (Actin FS) Sodium Potassium Chloride Carbon Dioxide Anion Gap BUN Creatinine Creat Clearance w eGFR POC Glucometer 171.73082 152.08269 Random Glucose Hemoglobin A1c % 4.8 D Calcium Phosphorus Magnesium Total Bilirubin AST ALT Alkaline Phosphatase Ammonia Total Protein Albumin Microbiology 02/24/18 07:05 Urine - Urine Warner Urine Culture - Final NO GROWTH OBTAINED ASSESSMENT AND PLAN: 47 yom with ETOH cirrhosis s/p ?TIPPS, ETOH abuse, recently in detox for the same, HTN, ?NIDDM, depression/prior suicidal attempt admitted with AMS -AMS, with urinary/bowel incontinence, right gaze deviation and focal shaking suspicious for seizures, ?Alcohol withdrawal seizures with prolonged post ictal phase compounded by hepatic encephalopathy and Delirium Tremens -ETOH abuse -ETOH cirrhosis -GRABIEL, prenal, cannot r/o hepatorenal syndrome. -Hypovolumic hypernatremia -skin lesions, ?Tinea corporis -HTN -?NIDDM -Depression/prior reported sucidal attempt swallowing razors 5 months ago Plan: Mental status markedly improved. Still with focal intentional tremors RUE. Unable to get MRI brain given possible stent/foreign body. Repeat CT brain today for gross evolving changes. Neuro checks. Continue Vimpat per neurology. Follow up EEG 2D echo/carotids non concerning. Hypertension/tachycardia with ongoing current mental status highly suggestive of Delirium tremens. Patient unable to state his last drink. Will start on librium taper again, may need prolonged taper, unclear if ETOH intake in the last few days. (reportedly finished his detox at [facility] prior to admission). Ativan prn, Detox consult with Dr. Salazar. Lactulose changed to QID, PPI, rifaximin. GI input appreciated. FOllow up abdominal US/Doppler. MOnitor for ascitis. Off NG tube. Change IVF to D5W at 50 ml/hr, d/c in 24 hours as PO intake improves. Patient awake, pulled NG tube, Speech/swallow input noted, Start diet. Encourage free water intake (noted thirsty in ICU asking for water). Monitor Na levels, suspect will normalize as PO resumed now. Renal input appreciated, Cr continues to improve, Hepatorenal syndrome on differential, but will monitor. MELD 18 Labetalol IV prn, however HTN/tachycardia suspicious for withdrawal. Librium as above. Amlodipine as tolerates. ISS, A1c 4.8. Hyperglycemic likely from D5w. D/c ISS once taking PO and off IVF. DVTPPX with SCDs in bed,start heparin if repeat CT brain non concerning. GIPPX with protonix Plan discussed with patient and all questions answered. Total critical care time spent 40 min.
[2018-02-26] MEDS ORDERED: LORazepam 2 MG/ML SDV VIAL IVPUSH PRN (14:26)
[2018-02-26] MEDS ORDERED: LABETALOL HCL 5 MG/1 ML (100MG/20 ML VIAL) IVPUSH PRN (14:26)
--- NOTE | 2018-02-26 16:32 | PN ---
Progress Note, Physician History of Present Illness: Pt seen and examined at bedside. He is more awake and alert today. He is eating and asking for water. He says that he wants to leave the hospital by tomorrow. - Current Medication List Current Medications: Active Medications Amlodipine Besylate (Norvasc -) 10 mg NGT DAILY DEV Chlordiazepoxide HCl (Librium -) 25 mg PO Q4H PRN PRN Reason: WITHDRAWAL(CONT SUBST) Stop: 03/01/18 09:41 Chlordiazepoxide HCl (Librium -) 50 mg PO [id number] DEV Stop: 02/27/18 05:01 Chlordiazepoxide HCl (Librium -) 25 mg PO [id number] DEV Stop: 02/28/18 05:01 Chlordiazepoxide HCl (Librium -) 15 mg PO [id number] DEV Stop: 03/01/18 05:01 Clotrimazole (Lotrimin 1% Cream -) 1 applic TP BID DEV Folic Acid (Folic Acid -) 1 mg PO DAILY DEV Insulin Aspart (Novolog Vial Sliding Scale -) 1 vial SQ ACHS DEV PRN Reason: Protocol Lacosamide (Vimpat Injection -) 100 mg IVPB BID DEV Magnesium Oxide (Mag-Ox -) 400 mg PO BID DEV Pantoprazole Sodium (Protonix Iv) 40 mg IVPUSH BID DEV Rifaximin (Xifaxan -) 550 mg PO BID DEV Thiamine HCl (Vitamin B1 -) 100 mg PO DAILY [facility] - Objective Vital Signs: Vital Signs Temperature 98.8 F 02/26/18 14:00 Pulse Rate 91 H 02/26/18 14:00 Respiratory Rate 21 02/26/18 14:00 Blood Pressure 134/80 02/26/18 14:00 O2 Sat by Pulse Oximetry (%) 98 02/26/18 10:00 Constitutional: Yes: Calm Eyes: Yes: Conjunctiva Clear HENT: Yes: Atraumatic Neck: Yes: Supple Cardiovascular: Yes: S1, S2 Respiratory: Yes: CTA Bilaterally Gastrointestinal: Yes: Soft, Abdomen, Obese Genitourinary: Yes: WNL Musculoskeletal: Yes: WNL Edema: No Neurological: Yes: Oriented Psychiatric: Yes: Oriented Labs: CBC, BMP 02/26/18 05:35 02/26/18 05:35 INR, PTT INR 1.19 (0.82-1.09) H 02/26/18 05:35 Problem List - Problems (1) Acute kidney injury Code(s): N17.9 - ACUTE KIDNEY FAILURE, UNSPECIFIED (2) Hepatic encephalopathy Code(s): K72.90 - HEPATIC FAILURE, UNSPECIFIED WITHOUT COMA (3) AA (alcohol abuse) Code(s): F10.10 - ALCOHOL ABUSE, UNCOMPLICATED (4) Depression Code(s): F32.9 - MAJOR DEPRESSIVE DISORDER, SINGLE EPISODE, UNSPECIFIED Qualifiers: Depression Type: dysthymia Qualified Code(s): F34.1 - Dysthymic disorder (5) Pancytopenia Code(s): D61.818 - OTHER PANCYTOPENIA Assessment/Plan Current Medications Generic Name Dose Route Start Last Admin Trade Name Freq PRN Reason Stop Dose Admin Amlodipine Besylate 10 mg 02/27/18 10:00 Norvasc - NGT DAILY [facility] Chlordiazepoxide HCl 25 mg 02/26/18 14:26 Librium - PO 03/01/18 09:41 Q4H PRN WITHDRAWAL(CONT SUBST) Chlordiazepoxide HCl 50 mg 02/26/18 17:00 Librium - PO 02/27/18 05:01 [id number] DEV Chlordiazepoxide HCl 25 mg 02/27/18 11:00 Librium - PO 02/28/18 05:01 [id number]-LQM DEV Chlordiazepoxide HCl 15 mg 02/28/18 11:00 Librium - PO 03/01/18 05:01 [id number] [facility] Clotrimazole 1 applic 02/26/18 22:00 Lotrimin 1% Cream - TP BID [facility] Folic Acid 1 mg 02/27/18 10:00 Folic Acid - PO DAILY [facility] Insulin Aspart 1 vial 02/26/18 16:30 Novolog Vial Sliding Scale - SQ ACHS [facility] Protocol Lacosamide 100 mg 02/26/18 22:00 Vimpat Injection - IVPB BID [facility] Magnesium Oxide 400 mg 02/26/18 22:00 Mag-Ox - PO BID [facility] Pantoprazole Sodium 40 mg 02/26/18 22:00 Protonix Iv IVPUSH BID [facility] Rifaximin 550 mg 02/26/18 22:00 Xifaxan - PO BID [facility] Thiamine HCl 100 mg 02/27/18 10:00 Vitamin B1 - PO DAILY DEV Impression 1. GRABIEL 2. etoh abuse 3. depression 4. anxiety 5. hx suicide attempts 6. obesity 7. HLD 8. liver cirrhosis 9. change in mental status 10. metabolic acidosis Plan - renal function is improving with hydration - pt is awake and tolerating diet - encourage free water intake - cont hypotonic fluid - renal workup is in progress - unlikely acute hepatorenal disease Dr Sparks
[2018-02-26] MEDS ORDERED: SODIUM CHLORIDE 0.45% 1,000 ML IV SCH (16:45)
[2018-02-26] MEDS: chlordiazePOXIDE HCL 25 MG CAPSULE PO SCH ×2 (17:21→22:09)
[2018-02-26] MEDS ORDERED: LACTULOSE 20 GM/30 ML UDC (FOR ORAL USE ONLY) PO SCH ×2 (18:00→22:00)
[2018-02-26] MEDS: PANTOPRAZOLE SODIUM 40 MG VIAL IVPUSH SCH (22:09)
[2018-02-26] MEDS: MAGNESIUM OXIDE 400 MG TABLET (FP) PO SCH (22:09)
[2018-02-27] MEDS: chlordiazePOXIDE HCL 25 MG CAPSULE PO SCH (05:56)
[2018-02-27] MEDS: INSULIN SLIDING SCALE (NOVOLOG) 1 VIAL SQ SCH ×2 (06:02→11:40)
--- NOTE | 2018-02-27 06:15 | PN ---
Physical Exam: SUBJECTIVE: Patient seen and examined by me this AM - No overnight events. Afebrile, VSS. Pt denies SAMUELS, dizziness, vision changes, f /c/n/v/d, cp, sob, cough, ab pain, LE swelling/pain, focal neuro deficits; States that he is going on a trip scheduled for today and needs to leave the hospital OBJECTIVE: Vital Signs Intake & Output 02/24/18 02/25/18 02/26/18 02/27/18 23:59 23:59 23:59 23:59 Intake Total 500 1710 4816 400 Output Total 900 2800 400 800 Balance -400 -1090 4416 -400 Weight 113.398 kg 99.337 kg 98.067 kg 96.615 kg Period Temp Pulse Resp BP Sys/Horton Pulse Ox Last 24 Hr 98.2 F-99.7 F 80-91 14-21 123-183/65-97 97-98 GENERAL: Middle aged man, laying in bed, A&Ox2 HEENT: Numerous small healed scabs on forehead near hairline EYES: Pupils equal, round and reactive to light, sclera anicteric, conjunctiva clear. No lid lag. EARS, NOSE, THROAT: Ears normal, nares patent, oropharynx clear without exudates. NECK: No JVD, supple LUNGS: Trace upper airway congestion. No wheezes, and no crackles. No accessory muscle use. HEART: Regular rate and rhythm, normal S1 and S2 without murmur, rub or gallop. ABDOMEN: Soft, ND, normoactive bowel sounds. Obese. MUSCULOSKELETAL: Normal range of motion at all joints. No bony deformities or tenderness. UPPER EXTREMITIES: Minimal R hand rhythmic tremor noted, worse with movement. 2 + pulses, warm, well-perfused. No cyanosis. No clubbing. No peripheral edema. LOWER EXTREMITIES: 2+ pulses, warm, well-perfused. No calf tenderness. No peripheral edema. NEUROLOGICAL: Moving all extremities. CN 2-12 intact. Preserved sensation in all dermatomes. Laboratory Results - last 24 hr CBC, BMP 02/26/18 05:35 02/26/18 05:35 02/25/18 02/25/18 02/26/18 18:00 18:00 05:35 PT with INR 13.50 H INR 1.19 H PTT (Actin FS) 22.1 L D Sodium Potassium Chloride Carbon Dioxide Anion Gap BUN Creatinine Creat Clearance w eGFR POC Glucometer Random Glucose Hemoglobin A1c % Calcium Phosphorus Magnesium Total Bilirubin AST ALT Alkaline Phosphatase Ammonia Total Protein Albumin Ur Random Sodium 32 Ur Random Potassium 17.6 Ur Random Chloride 35 Urine Creatinine 185.0 02/26/18 02/26/18 02/26/18 05:35 05:35 05:35 PT with INR INR PTT (Actin FS) Sodium 153 H Potassium 3.5 Chloride 126 H Carbon Dioxide 16 L Anion Gap 11 BUN 41 H Creatinine 2.8 H Creat Clearance w eGFR 24.63 POC Glucometer Random Glucose 143 H Hemoglobin A1c % 4.8 D Calcium 7.7 L Phosphorus 4.9 Magnesium 1.6 L Total Bilirubin 0.6 AST 51 H ALT 31 D Alkaline Phosphatase 106 D Ammonia 34.57 H Total Protein 5.1 L Albumin 2.0 L Ur Random Sodium Ur Random Potassium Ur Random Chloride Urine Creatinine 02/26/18 02/26/18 02/26/18 12:44 17:19 21:11 PT with INR INR PTT (Actin FS) Sodium Potassium Chloride Carbon Dioxide Anion Gap BUN Creatinine Creat Clearance w eGFR POC Glucometer 152.54975 132 148 Random Glucose Hemoglobin A1c % Calcium Phosphorus Magnesium Total Bilirubin AST ALT Alkaline Phosphatase Ammonia Total Protein Albumin Ur Random Sodium Ur Random Potassium Ur Random Chloride Urine Creatinine 02/27/18 05:53 PT with INR INR PTT (Actin FS) Sodium Potassium Chloride Carbon Dioxide Anion Gap BUN Creatinine Creat Clearance w eGFR POC Glucometer 143 Random Glucose Hemoglobin A1c % Calcium Phosphorus Magnesium Total Bilirubin AST ALT Alkaline Phosphatase Ammonia Total Protein Albumin Ur Random Sodium Ur Random Potassium Ur Random Chloride Urine Creatinine Active Medications Generic Name Dose Route Start Last Admin Trade Name Freq PRN Reason Stop Dose Admin Amlodipine Besylate 10 mg 02/27/18 10:00 Norvasc - NGT DAILY DEV Chlordiazepoxide HCl 25 mg 02/26/18 14:26 Librium - PO 03/01/18 09:41 Q4H PRN WITHDRAWAL(CONT SUBST) Chlordiazepoxide HCl 25 mg 02/27/18 11:00 Librium - PO 02/28/18 05:01 [id number] DEV Chlordiazepoxide HCl 15 mg 02/28/18 11:00 Librium - PO 03/01/18 05:01 H2P-URU DEV Clotrimazole 1 applic 02/26/18 22:00 02/26/18 22:10 Lotrimin 1% Cream - TP 1 applic BID DEV Administration Folic Acid 1 mg 02/27/18 10:00 Folic Acid - PO DAILY [facility] Sodium Chloride 1,000 mls @ 50 mls/hr 02/26/18 16:45 02/26/18 17:23 1/2 Normal Saline IV 02/27/18 16:32 50 mls/hr ASDIR DEV Administration Insulin Aspart 1 vial 02/26/18 16:30 02/27/18 06:02 Novolog Vial Sliding Scale - SQ Not Given ACHS [facility] Protocol Lacosamide 100 mg 02/26/18 22:00 02/26/18 22:08 Vimpat Injection - IVPB 100 mg BID [facility] Administration Magnesium Oxide 400 mg 02/26/18 22:00 02/26/18 22:09 Mag-Ox - PO 400 mg BID DEV Administration Pantoprazole Sodium 40 mg 02/26/18 22:00 02/26/18 22:09 Protonix Iv IVPUSH 40 mg BID [facility] Administration Rifaximin 550 mg 02/26/18 22:00 02/26/18 22:09 Xifaxan - PO 550 mg BID DEV Administration Thiamine HCl 100 mg 02/27/18 10:00 Vitamin B1 - PO DAILY [facility] Microbiology 02/24/18 07:05 Urine - Urine Warner Urine Culture - Final NO GROWTH OBTAINED CXR 02/24 - NG tube in place. No acute pathology CT head 02/24- No pathology noted EKG 02/24 - NSR, rate 95, QTC 449, multiple PACs, borderline peaked twaves in v4- v6; likely artifact Carotid doppler 02/24 - no evidence of hemodynamically significant stenosis CXR 02/25 - No change from prior CXR. repeat for confirmation of NG tube Ab sono/duplex 02/25 - IMPRESSION: Hepatic cirrhosis. Diffuse hepatic steatosis. Splenomegaly (with apparent increased size in comparison to a CT exam of 2016). The main portal vein and hepatic veins appear to be patent with physiologic flow direction. A TIPS shunt is seen in place although shunt patency is difficult to document on the current study. Correlation with close follow-up sonography may be performed. Alternatively correlate with contrast- enhanced CT (with targeted imaging of the TIPS shunt). Cholelithiasis. As on a previous ultrasound exam of 08/03/2015 there is mild diffuse gallbladder wall thickening which may be associated with hepatic disease (versus acute cholecystitis). Clinical/laboratory correlation is suggested. No definite biliary tract dilatation is identified. Right pleural effusion. ASSESSMENT/PLAN: 47 yo man w/ pmh of ETOH abuse, HTN, ?NIDDM, depression, HLD and prior suicide attempt, cirrhosis (2/2 ETOH use, S/p TIPS per prior note), who presents obtunded with possible seizure this AM from [facility], currently undergoing detox program for alcohol abuse. Pt MS much improve, A&Ox3 in PM today. #Suspected hepatic encephalopathy c/b possible seizures - ammonia normalized 35 - GI consulted, recs appreciated - lactulose QID - Neuro consulted, recs appreciated - f/u EEG - Vimpat BID - IVFs - Ativan 1mg PRN - PPI - Rifaximin BID - NG tube pulled; S+S recs noted; pt ordered for diabetic diet - Detox consulted, Dr. Salazar - Restart librium taper #ESLD - MELD 18 - GI consulted - trend LFTs - RUQ U/S as noted above - monitor for ascites #GRABIEL (Possible hepatorenal syndrome) - Cr 3.5 -> 2.8 today - Renal consulted - Trend Cr - Switched to PO hydration - Warner d/c'ed #HyperNa - 153 today - PO hydration - Trend Na #NIDDM - A1C 4.8; D5w stopped - ISS - BGM Q4h #HTN - monitor; HTN to 180s in AM - Labetalol IV PRN - C/w home amlodipine - hold lisinopril in setting of GRABIEL #Alcohol abuse - consider possible withdrawal seizures - Monitor for withdrawal symptoms once MS improves - c/w librium taper PPX HSQ after repeat CT head FEN PO hydration Daily lytes Diabetic diet Plan discussed with attending, Dr. Zacarias Bolivar, PGY1
[2018-02-27 08:33] LABS: BASO % 0.9 % (0-2.0); EOS % 4.1 % (0-4.5); HEMATOCRIT 24.2 % (35.4-49); HEMOGLOBIN 8.2 GM/dL (11.7-16.9); LYMPH % 20.5 % (8-40); MCHC 33.8 g/dl (32.0-35.9); MEAN CELL VOLUME 88.9 fl (80-96); MONO % 15.8 % (3.8-10.2); NEUT % 58.7 % (42.8-82.8); PLATELET COUNT 63 K/MM3 (134-434); RBC 2.72 M/mm3 (4.00-5.60); RDW 17.3 % (11.9-15.9)
[2018-02-27 09:02] LABS: CHLORIDE 116 mmol/L (98-107); POTASSIUM 3.3 mmol/L (3.5-5.1); SODIUM 141 mmol/L (136-145)
[2018-02-27 09:10] LABS: ALBUMIN 1.9 g/dl (3.4-5.0); ALK PHOS 117 U/L (45-117); ANION GAP 8 (8-16); BILIRUBIN,TOTAL 0.5 mg/dL (0.2-1.0); BLOOD UREA NITROGEN 35 mg/dL (7-18); CALCIUM 7.2 mg/dL (8.5-10.1); CO2 17 mmol/L (21-32); CREATININE 2.4 mg/dL (0.7-1.3); GLUCOSE,RANDOM 119 mg/dL (74-106); MAGNESIUM 1.5 mg/dL (1.8-2.4); PHOSPHOROUS 3.7 mg/dL (2.5-4.9); SGOT/AST 42 U/L (15-37); SGPT/ALT 26 U/L (12-78); TOT PROT 5.2 g/dl (6.4-8.2)
[2018-02-27] MEDS ORDERED: amLODIPine BESYLATE 10 MG TABLET (FP) NGT SCH (10:00)
[2018-02-27] MEDS ORDERED: THIAMINE HCL 100 MG TABLET (FP) PO SCH (10:00)
[2018-02-27] MEDS ORDERED: FOLIC ACID 1 MG TABLET (FP) PO SCH (10:00)
--- NOTE | 2018-02-27 10:27 | PN ---
[facility] Progress Note (SOAP) Subjective: patient was not in bed when room visited, having test. discharged on returning to room.
[2018-02-27] MEDS ORDERED: PT OWN MED DRAWER 7, Y5N ONE (10:39)
[2018-02-27] MEDS ORDERED: chlordiazePOXIDE HCL 25 MG CAPSULE PO SCH ×2 (11:00)
[2018-02-27] MEDS: RIFAXIMIN 550 MG TABLET (UD) PO SCH (11:19)
[2018-02-27] MEDS: MAGNESIUM OXIDE 400 MG TABLET (FP) PO SCH (11:19)
[2018-02-27] MEDS: PANTOPRAZOLE SODIUM 40 MG VIAL IVPUSH SCH (11:20)
[2018-02-27] MEDS: Lacosamide 200 MG/20 ML VIAL IVPB SCH (11:20)
[2018-02-27] MEDS: CLOTRIMAZOLE 1% CREAM 15 GM TUBE TP SCH (11:21)
--- NOTE | 2018-02-27 11:49 | PN ---
Progress Note, SHAMPOOER - Note Progress Note: Selected Entries 02/26/18 02/26/18 02/26/18 10:18 10:36 14:00 Breakfast 100% Supper Temperature 99.3 F 98.8 F 02/26/18 02/26/18 02/27/18 18:30 22:00 03:00 Breakfast 100% Supper 75% Temperature 98.6 F 98.2 F 98.5 F 02/27/18 05:44 Breakfast Supper Temperature 99.7 F H Laboratory Tests 02/27/18 07:45 WBC 4.0 Diet upgraded to regular/thin liquid. Doing well. No further c/o pharyngeal pain. No further f/u indicated
[2018-02-27 12:04] VITALS: BP 159/99; PULSE 91; TEMP 99.6
--- NOTE | 2018-02-27 14:11 | PN ---
Progress Note, Physician History of Present Illness: Pt seen and examined at bedside. He is awake and alert. He is out of bed. He is insisting on leaving the hospital. - Current Medication List Current Medications: Active Medications Amlodipine Besylate (Norvasc -) 10 mg NGT DAILY REPLACED BY [facility] Last Admin: 02/27/18 11:19 Dose: 10 mg Chlordiazepoxide HCl (Librium -) 25 mg PO Q4H PRN PRN Reason: WITHDRAWAL(CONT SUBST) Stop: 03/01/18 09:41 Chlordiazepoxide HCl (Librium -) 25 mg PO A0B-PCG REPLACED BY [facility] Stop: 02/28/18 05:01 Last Admin: 02/27/18 11:19 Dose: Not Given Chlordiazepoxide HCl (Librium -) 15 mg PO Q8L-RTD REPLACED BY [facility] Stop: 03/01/18 05:01 Clotrimazole (Lotrimin 1% Cream -) 1 applic TP BID REPLACED BY [facility] Last Admin: 02/27/18 11:21 Dose: 1 applic Folic Acid (Folic Acid -) 1 mg PO DAILY REPLACED BY [facility] Last Admin: 02/27/18 11:19 Dose: 1 mg Sodium Chloride (1/2 Normal Saline) 1,000 mls @ 50 mls/hr IV ASDIR REPLACED BY [facility] Stop: 02/27/18 16:32 Last Admin: 02/26/18 17:23 Dose: 50 mls/hr Insulin Aspart (Novolog Vial Sliding Scale -) 1 vial SQ ACHS REPLACED BY [facility] PRN Reason: Protocol Last Admin: 02/27/18 11:40 Dose: Not Given Lacosamide (Vimpat Injection -) 100 mg IVPB BID REPLACED BY [facility] Last Admin: 02/27/18 11:20 Dose: 100 mg Magnesium Oxide (Mag-Ox -) 400 mg PO BID REPLACED BY [facility] Last Admin: 02/27/18 11:19 Dose: 400 mg Pantoprazole Sodium (Protonix Iv) 40 mg IVPUSH BID REPLACED BY [facility] Last Admin: 02/27/18 11:20 Dose: 40 mg Rifaximin (Xifaxan -) 550 mg PO BID REPLACED BY [facility] Last Admin: 02/27/18 11:19 Dose: 550 mg Thiamine HCl (Vitamin B1 -) 100 mg PO DAILY REPLACED BY [facility] Last Admin: 02/27/18 11:20 Dose: 100 mg - Objective Vital Signs: Vital Signs Temperature 99.6 F 02/27/18 09:00 Pulse Rate 91 H 04/03/18 09:00 Respiratory Rate 20 02/27/18 09:00 Blood Pressure 159/99 02/27/18 09:00 O2 Sat by Pulse Oximetry (%) 99 02/27/18 09:00 Constitutional: Yes: Calm Eyes: Yes: Conjunctiva Clear HENT: Yes: Atraumatic Neck: Yes: Supple Cardiovascular: Yes: S1, S2 Respiratory: Yes: CTA Bilaterally Gastrointestinal: Yes: Soft Genitourinary: Yes: WNL Musculoskeletal: Yes: WNL Extremities: Yes: WNL Edema: No Neurological: Yes: Oriented Psychiatric: Yes: Oriented Labs: CBC, BMP 02/27/18 07:45 02/27/18 07:45 INR, PTT INR 1.19 (0.82-1.09) H 02/26/18 05:35 Problem List - Problems (1) Acute kidney injury Code(s): N17.9 - ACUTE KIDNEY FAILURE, UNSPECIFIED (2) Hepatic encephalopathy Code(s): K72.90 - HEPATIC FAILURE, UNSPECIFIED WITHOUT COMA (3) AA (alcohol abuse) Code(s): F10.10 - ALCOHOL ABUSE, UNCOMPLICATED (4) Depression Code(s): F32.9 - MAJOR DEPRESSIVE DISORDER, SINGLE EPISODE, UNSPECIFIED Qualifiers: Depression Type: dysthymia Qualified Code(s): F34.1 - Dysthymic disorder (5) Pancytopenia Code(s): D61.818 - OTHER PANCYTOPENIA Assessment/Plan Current Medications Generic Name Dose Route Start Last Admin Trade Name Freq PRN Reason Stop Dose Admin Amlodipine Besylate 10 mg 02/27/18 10:00 02/27/18 11:19 Norvasc - NGT 10 mg DAILY DEV Administration Chlordiazepoxide HCl 25 mg 02/26/18 14:26 Librium - PO 03/01/18 09:41 Q4H PRN WITHDRAWAL(CONT SUBST) Chlordiazepoxide HCl 25 mg 02/27/18 11:00 02/27/18 11:19 Librium - PO 02/28/18 05:01 Not Given P1A-GPT DEV Chlordiazepoxide HCl 15 mg 02/28/18 11:00 Librium - PO 03/01/18 05:01 P0T-PAM DEV Clotrimazole 1 applic 02/26/18 22:00 02/27/18 11:21 Lotrimin 1% Cream - TP 1 applic BID DEV Administration Folic Acid 1 mg 02/27/18 10:00 02/27/18 11:19 Folic Acid - PO 1 mg DAILY DEV Administration Sodium Chloride 1,000 mls @ 50 mls/hr 02/26/18 16:45 02/26/18 17:23 1/2 Normal Saline IV 02/27/18 16:32 50 mls/hr ASDIR DEV Administration Insulin Aspart 1 vial 02/26/18 16:30 02/27/18 11:40 Novolog Vial Sliding Scale - SQ Not Given ACHS REPLACED BY [facility] Protocol Lacosamide 100 mg 02/26/18 22:00 02/27/18 11:20 Vimpat Injection - IVPB 100 mg BID DEV Administration Magnesium Oxide 400 mg 02/26/18 22:00 02/27/18 11:19 Mag-Ox - PO 400 mg BID DEV Administration Pantoprazole Sodium 40 mg 02/26/18 22:00 02/27/18 11:20 Protonix Iv IVPUSH 40 mg BID DEV Administration Rifaximin 550 mg 02/26/18 22:00 02/27/18 11:19 Xifaxan - PO 550 mg BID DEV Administration Thiamine HCl 100 mg 02/27/18 10:00 02/27/18 11:20 Vitamin B1 - PO 100 mg DAILY DEV Administration Laboratory Tests 02/25/18 02/25/18 02/26/18 18:00 18:00 05:35 Ur Random Sodium Pending Urine Creatinine Pending CONSTANZA Screen Pending c-ANCA Pending Proteinase 3 (PR3) Pending p-ANCA Pending Atypical p-ANCA Pending Myeloperoxidase Ab Pending Double Strand DNA Ab Pending Glomerular Base Memb Ab Pending Impression 1. GRABIEL 2. etoh abuse 3. depression 4. anxiety 5. hx suicide attempts 6. obesity 7. HLD 8. liver cirrhosis 9. change in mental status 10. metabolic acidosis Plan - renal function is improving - sodium is improving, pt is autocorrecting - renal workup is in progress - pt insisting on leaving the hospital - unlikely acute hepatorenal disease Dr Sparks
--- NOTE | 2018-02-27 14:39 | PN ---
Teaching Attending Note Name of Resident: Jude Bolivar ATTENDING PHYSICIAN STATEMENT I saw and evaluated the patient. I reviewed the resident's note and discussed the case with the resident. I agree with the resident's findings and plan as documented. SUBJECTIVE:has no complaints. states he needs to leave as he has a buisness trip to travel on. deneis CP, SOB, fever, chills, anxiety, auditory/visual/ tactile hallucinations, SAMUELS, N/V/C/D OBJECTIVE: Last Vital Signs Temp Pulse Resp BP Pulse Ox 99.6 F 91 H 20 159/99 99 02/27/18 09:00 02/27/18 09:00 02/27/18 09:00 02/27/18 09:00 02/27/18 09:00 General NAD CV S1 S2 RRR no murmur/rub/gallop Lungs CTA B/L no wheezing/rales/rhonchi Extremities no tremor ASSESSMENT AND PLAN: 47 yo M with ETOH cirrhosis s/p ?TIPPS, ETOH abuse, recently in detox for the same, HTN, ?NIDDM, depression/prior suicidal attempt admitted with AMS 1. Acute metabolic encephalopathy- likely post-ictal from unwitnessed seizure vs hepatic encephalopahty and withdrawals. now resolved. appears alert and oriented. ammonia level trended down. started on vimpat. evaluted by GI and neuro. no repeat seizure like activity 2. ETOH withdrawal- CIWA 0. re-started on librium protocol yesterday. is not displaying any signs of withdrawal at this time. does not want to continue with detox. not interested in inpatient rehab. counseled on risks of continued drinking and if continues to use. acknowledged risks. 3. Normocytic anemia- no signs of bleeding. check iron studies. no indication for txn. 4. hypokalemia- KCl po 5. GRABIEL- likely medication and hypovolemia induced. slowly trending down. on IVF. nephrology on board. will need close monitoring and repeat in labs in 48- 72H. 6. ETOH cirrhosis- s/p TIPS 7. DM 8. DM 9. depression- denies homicidal idealizations 10. pt wants to sign out AMA. counseled on risks and benefits of continues treatment and monitoring. verbalized understanding of risks and agreement with following with PMD upon return for lab check. counseled on drug abstinence and medication compliance.
--- NOTE | 2018-02-27 16:33 | DS ---
Physical Exam: SUBJECTIVE: Patient seen and examined - No overnight events. Afebrile, VSS. Pt denies SAMUELS, dizziness, vision changes, f /c/n/v/d, cp, sob, cough, ab pain, LE swelling/pain, focal neuro deficits; States that he is going on a trip scheduled for today and needs to leave the hospital OBJECTIVE: Vital Signs Period Temp Pulse Resp BP Sys/Horton Pulse Ox Last 24 Hr 98.2 F-99.7 F 80-91 19-21 124-159/78-99 97-99 PHYSICAL EXAM GENERAL: Middle aged man, laying in bed, A&Ox2 HEENT: Numerous small healed scabs on forehead near hairline EYES: Pupils equal, round and reactive to light, sclera anicteric, conjunctiva clear. No lid lag. EARS, NOSE, THROAT: Ears normal, nares patent, oropharynx clear without exudates. NECK: No JVD, supple LUNGS: Trace upper airway congestion. No wheezes, and no crackles. No accessory muscle use. HEART: Regular rate and rhythm, normal S1 and S2 without murmur, rub or gallop. ABDOMEN: Soft, ND, normoactive bowel sounds. Obese. MUSCULOSKELETAL: Normal range of motion at all joints. No bony deformities or tenderness. UPPER EXTREMITIES: Minimal R hand rhythmic tremor noted, worse with movement. 2 + pulses, warm, well-perfused. No cyanosis. No clubbing. No peripheral edema. LOWER EXTREMITIES: 2+ pulses, warm, well-perfused. No calf tenderness. No peripheral edema. NEUROLOGICAL: Moving all extremities. CN 2-12 intact. Preserved sensation in all dermatomes. LABS Laboratory Results - last 24 hr CBC, BMP 02/27/18 07:45 02/27/18 07:45 02/25/18 02/25/18 02/26/18 18:00 18:00 05:35 WBC RBC Hgb Hct MCV MCH MCHC RDW Plt Count MPV Neutrophils % Lymphocytes % Monocytes % Eosinophils % Basophils % Sodium Potassium Chloride Carbon Dioxide Anion Gap BUN Creatinine Creat Clearance w eGFR POC Glucometer Random Glucose Calcium Phosphorus Magnesium Total Bilirubin AST ALT Alkaline Phosphatase Total Protein Albumin Ur Random Sodium 32 Ur Random Potassium 17.6 Ur Random Chloride 35 Urine Creatinine 185.0 Double Strand DNA Ab 1 02/26/18 02/26/18 02/27/18 17:19 21:11 05:53 WBC RBC Hgb Hct MCV MCH MCHC RDW Plt Count MPV Neutrophils % Lymphocytes % Monocytes % Eosinophils % Basophils % Sodium Potassium Chloride Carbon Dioxide Anion Gap BUN Creatinine Creat Clearance w eGFR POC Glucometer 132 148 143 Random Glucose Calcium Phosphorus Magnesium Total Bilirubin AST ALT Alkaline Phosphatase Total Protein Albumin Ur Random Sodium Ur Random Potassium Ur Random Chloride Urine Creatinine Double Strand DNA Ab 02/27/18 02/27/18 02/27/18 07:45 07:45 11:33 WBC 4.0 RBC 2.72 L Hgb 8.2 L Hct 24.2 L MCV 88.9 MCH 30.0 MCHC 33.8 RDW 17.3 H Plt Count 63 L MPV 10.0 Neutrophils % 58.7 Lymphocytes % 20.5 D Monocytes % 15.8 H Eosinophils % 4.1 D Basophils % 0.9 Sodium 141 Potassium 3.3 L Chloride 116 H Carbon Dioxide 17 L Anion Gap 8 BUN 35 H Creatinine 2.4 H Creat Clearance w eGFR 29.42 POC Glucometer 121 Random Glucose 119 H Calcium 7.2 L Phosphorus 3.7 D Magnesium 1.5 L Total Bilirubin 0.5 AST 42 H ALT 26 Alkaline Phosphatase 117 Total Protein 5.2 L Albumin 1.9 L Ur Random Sodium Ur Random Potassium Ur Random Chloride Urine Creatinine Double Strand DNA Ab Microbiology 02/24/18 07:05 Urine - Urine Warner Urine Culture - Final NO GROWTH OBTAINED CXR 02/24 - NG tube in place. No acute pathology CT head 02/24- No pathology noted EKG 02/24 - NSR, rate 95, QTC 449, multiple PACs, borderline peaked twaves in v4- v6; likely artifact Carotid doppler 02/24 - no evidence of hemodynamically significant stenosis CXR 02/25 - No change from prior CXR. repeat for confirmation of NG tube Ab sono/duplex 02/25 - IMPRESSION: Hepatic cirrhosis. Diffuse hepatic steatosis. Splenomegaly (with apparent increased size in comparison to a CT exam of 2016). The main portal vein and hepatic veins appear to be patent with physiologic flow direction. A TIPS shunt is seen in place although shunt patency is difficult to document on the current study. Correlation with close follow-up sonography may be performed. Alternatively correlate with contrast- enhanced CT (with targeted imaging of the TIPS shunt). Cholelithiasis. As on a previous ultrasound exam of 08/03/2015 there is mild diffuse gallbladder wall thickening which may be associated with hepatic disease (versus acute cholecystitis). Clinical/laboratory correlation is suggested. No definite biliary tract dilatation is identified. Right pleural effusion. Consults GI - Seen by Dr. Freeman Pulm - Seen by Dr. Gibbs Neuro - Seen by Dr. Hernandez HOSPITAL COURSE: Prehospital course: 47 yo man w/ pmh of ETOH abuse, HTN, ?NIDDM, depression, HLD and prior suicide attempt, cirrhosis (2/2 ETOH use, S/p TIPS per prior note), who presents obtunded with possible seizure this AM from [facility], currently undergoing detox program for alcohol abuse. Per nursing at facility, pt was last at baseline at 1230 AM last night, was discovered later this morning obtunded with urinary and fecal incontinence. Pt was nonresponsive to commands, but moving all extremities, withdrawing to pain, BG at the time was 129. Pt with no documented prior hx of epilepsy. Pt was BIBEMS from [facility], remained altered in ED, nonverbal, grunting, but withdrawing to pain still. Hospital course: In ED, ABG 7.42/24/148, pt protecting airway. CT negative for bleed or pathology. Ammonia noted to be 206. CK, lactic acid normal. Cr 3.4 on admission. UA pos for 3+ blood, 2+ protein, utox + for benzos. Pt with hx of cirrhosis secondary to alcohol abuse. NG tube placed, pt received 1L LR, 20mg lactulose via NG tube, vimpat 100mg, and Ativan 1mg IV. Warner placed. Lactic acid, CK normal. Pt noted with rhythmic R eye deviation and moving L arm to mouth. Admitted to ICU. GI, Pulm, Renal and Neuro consulted. Per neuro recs, placed on Vimpat 100mg BID, recommended for MRI. Per GI, pt placed on lactulose QID, rifaximin and recommended further imaging of abdomen and liver to assess degree of cirrhosis. Pt placed on IVFs. MS improved steadily with tx and fluids. A&Ox3 by second day of admission. Carotid dopplers negative. Na steadily uptrending with NS, increased to 153, so IVFs were d/c'ed, switched to PO fluids once pt was clear by S+S. Na subsequently corrected with oral hydration. Abdominal sonogram w/ findings as above, evidence of prior TIPS. Ammonia normalized to 34. On 02/27, pt stated he needed to "catch a flight" and decided to leave AMA. Pt counseled on risk of leaving before tx was completed, acknowledged risks and signed out. Pt provided with extensive discharge plan regarding f/u as outpt, including outpt lab tests to monitor Cr function. Date of Admission:02/24/18 Date of Discharge: 02/27/18 Pt left AMA after being counseled on risks of leaving without completing librium taper for alcohol withdrawal. Pt verbalized acknowledgement of risks, decision to sign out AMA. Minutes to complete discharge: 35 Discharge Summary Reason For Visit: HEPATIC ENCEPHALOPATHY Condition: Guarded - Instructions Diet, Activity, Other Instructions: During your stay at [facility], you were treated for seizures due to alcohol withdrawal. You were started on a librium taper to help with your detox and withdrawal symptoms. Your ammonia levels were also high due to your cirrhosis, which likely contributed to your seizures. You have decided to leave the hospital against medical advice. The risks of foregoing further management and treatment of your withdrawal have been explained to you, including further seizures, falls, hallucinations, cardiac arrhythmias and possible . Please note that you will need follow up blood work with your doctor in 3-5 days to check your kidney function and electrolytes. Please get the following tests once you leave: CBC, BMP, ammonia level. Medications: Please take the following medications as directed below: Vimpat 10ml(100mg), Take one dose by mouth, twice a day until you see your primary care doctor Please stop taking the following medications until you are seen by your primary medical doctor: Lisinopril Please take all other home medication as previously prescribed. Follow-ups: Please follow-up with your primary care physician in one week for further management of your medications. Please call their office to schedule an appointment. If you require a referral for a primary care doctor, we have provided the contact information for our resident run clinic. Please call the number to schedule an appointment. If you are amenable, we recommend that you complete your inpatient alcohol abuse rehab. We have provided the contact information for the [facility] clinic. Please call to arrange for the inpatient substance abuse rehab program. Diet/exercise: Please avoid any further alcohol use, as this can worsen your liver function and contribute to further seizures. Please return to the hospital if you experience any of the following symptoms: - Any new seizures - Worsening yellowing of your skin or eyes - Persistent fevers/chills - Any drastic changes in your mental status, such as severe fatigue, inability to concentrate or think clearly or any loss of consciousness/seizures - Any new or concerning symptoms Referrals: Yasir Triplett MD [Staff Physician] - 1 Week Ranjit Salazar MD [Staff Physician] - 1 Week Disposition: AGAINST MEDICAL ADVICE - Home Medications Comprehensive Discharge Medication List: Ambulatory Orders Escitalopram Oxalate [Lexapro -] 20 mg PO DAILY 04/28/17 Quetiapine Fumarate [Seroquel] 100 mg PO HS 04/28/17 Amlodipine Besylate [Norvasc -] 10 mg PO DAILY #30 tab 05/11/17 Fluoxetine HCl [Prozac -] 20 mg PO DAILY #30 tab 05/11/17 Calcium 500Mg/Vit-D 200 Units [Os-Dennis 500+D -] 1 tab PO DAILY #30 tab 09/27/17 Folic Acid - 1 mg PO DAILY #30 tablet 09/27/17 Lisinopril [Prinivil] 20 mg PO DAILY #30 tablet 09/27/17 Multivitamin [One Daily] 1 each PO DAILY #30 tablet 09/27/17 Thiamine HCl [Vitamin B1 -] 100 mg PO DAILY #30 tablet 09/27/17 Lacosamide Liquid [Vimpat] 100 mg PO BID #600 ml MDD n/a 02/27/18 This patient is new to me today: No Emergency Visit: Yes ED Registration Date: 02/24/18 Care time: The patient presented to the Emergency Department on the above date and was hospitalized for further evaluation of their emergent condition. Critical Care patient: No - Discharge Referral Referred to [facility] Med P.C.: No
[2018-02-28 00:12] LABS: SPECKLED PATTERN >1:1280 (.)
[2018-02-28 10:17] LABS: ANTIGLOMERULAR BASEMENT MEN.AB 3 units (0-20)
[2018-02-28] MEDS ORDERED: chlordiazePOXIDE 5 MG CAPSULE PO SCH ×2 (11:00)
[2018-03-01 17:46] LABS: ATYPICAL pANCA <1:20 titer (Neg:<1:20); C-ANCA <1:20 titer (Neg:<1:20); P-ANCA 1:40 titer (Neg:<1:20); PROTEINASE-3 ANTIBODY 4.7 U/mL (0.0-3.5)
== END 2018-02-27 14:14 | disposition left against medical advice (07) | DRG 279 ==
LOC: JER 06:48 → JERBED 10:01 → JICU 19:46 → J6S 02-26 14:38
PROVIDERS: ADMIT Hospitalist; ATTEND Internal Medicine
DX: K72.91 Hepatic failure, unspecified with coma (principal); N17.9 Acute kidney failure, unspecified; D61.818 Other pancytopenia; E87.0 Hyperosmolality and hypernatremia; F10.231 Alcohol dependence with withdrawal delirium; R56.9 Unspecified convulsions; K70.30 Alcoholic cirrhosis of liver without ascites; E87.2 Acidosis; I10 Essential (primary) hypertension; E11.9 Type 2 diabetes mellitus without complications; F32.9 Major depressive disorder, single episode, unspecified; Z91.5 Personal history of self-harm; E66.9 Obesity, unspecified; F41.9 Anxiety disorder, unspecified; Z68.32 Body mass index [BMI] 32.0-32.9, adult; R00.0 Tachycardia, unspecified; B35.4 Tinea corporis; R32 Unspecified urinary incontinence; F17.210 Nicotine dependence, cigarettes, uncomplicated; L40.9 Psoriasis, unspecified; E87.6 Hypokalemia; D64.9 Anemia, unspecified; S43.101A Unspecified dislocation of right acromioclavicular joint, initial encounter; K70.10 Alcoholic hepatitis without ascites; F34.1 Dysthymic disorder; R16.1 Splenomegaly, not elsewhere classified
CPT/HCPCS: 36415; 36600; 70450-TC; 71045-TC-FY; 76700-TC; 80053; 80307; 81003; 81015; 82140; 82248; 82375; 82436; 82550; 82570; 82803; 82962; 83036; 83050; 83516; 83520; 83605; 83735; 84100; 84133; 84300; 84484; 85025; 85610; 85730; 86038; 86225; 86256; 86850; 86900; 86901; 87086; 93005; 93010; 93306-TC; 93880-TC; 93976; 95816; 97116-GP; 97161-GP; 99285-25; J7030; P9047

== ENCOUNTER 2018-04-30 12:13 | Inpatient (IN) | payer OTHER ==
--- NOTE | 2018-04-30 12:42 | PDOC ---
History of Present Illness - General Chief Complaint: Shortness of Breath Stated Complaint: SOB, CHEST PAIN Time Seen by Provider: 04/30/18 12:35 - History of Present Illness Initial Comments: 04/30/18 12:40 47 yo M with HTN, NIDDM, HLD, Depression with prior suicide attempt, cirrhosis ( 2/2 Etoh, s/p TIPS) who p/w BL LE edema and CP. Patient reports acute non pleuritic, retrosternal chest tightness, SOB, Lewis x 1 day. Worsening BL LE edema and BL knee pain over past 90 days. Also reports widespread pruitis, and acute nausea without vomiting. No home O2 requirements. On lasix 20 mg QD x 1 month, with no improvement in symptoms. Denies F/C, N/V, palpitations, PND, diaphoresis, SOB, abdominal pain, diarrhea, constipation, urinary complaints, weakness, lightheadedness, sensory changes. PMHx: as noted above.Denies h/o ACS/HI, CHF, stent placement, CABG, abnml stress testing. Denies PE/DVT. ROS: as noted above SHx: Denies EtoH x 3 months. 1-2 cigarettes per day. Denies IVDA. Recently returned from [place]. Allergies: NKDA 04/30/18 13:17 Rene Ward PMD Past History - Past Medical History Allergies/Adverse Reactions: Allergies Allergy/AdvReac Type Severity Reaction Status Date / Time shellfish derived Allergy Severe Swelling Verified 02/24/18 06:59 Home Medications: Ambulatory Orders Quetiapine Fumarate [Seroquel] 100 mg PO HS 04/28/17 Amlodipine Besylate [Norvasc -] 10 mg PO DAILY #30 tab 05/11/17 Folic Acid - 1 mg PO DAILY #30 tablet 09/27/17 Multivitamin [One Daily] 1 each PO DAILY #30 tablet 09/27/17 Thiamine HCl [Vitamin B1 -] 100 mg PO DAILY #30 tablet 09/27/17 Clindamycin [Cleocin -] 300 mg PO Q8H 04/30/18 Clonidine HCl [Clonidine HCl ER] 0.1 mg PO DAILY 04/30/18 Ferrous Sulfate 325 mg PO DAILY 04/30/18 Furosemide [Lasix] 20 mg PO DAILY 04/30/18 Lisinopril [Prinivil] 10 mg PO DAILY 04/30/18 Mirtazapine [Remeron -] 15 mg PO HS 04/30/18 Anemia: No Asthma: No Cancer: No Cardiac Disorders: Yes CVA: No COPD: No CHF: No Dementia: No Diabetes: Yes GI Disorders: Yes (cirrhosis etoh abuse) Disorders: No HTN: Yes Hypercholesterolemia: No Kidney Stones: No Liver Disease: Yes (CIRRHOSIS OF LIVER) Psychiatric Problems: Yes (DEPRESSION, ANXEITY) Seizures: No Thyroid Disease: No - Surgical History Abdominal Surgery: No Appendectomy: No Cardiac Surgery: No Cholecystectomy: No Lung Surgery: No Neurologic Surgery: No Orthopedic Surgery: Yes (right shoulder due to dislocation 6 years ago) - Family Disease History Family Disease History: Heart Disease: Mother - Reproductive History Testicular Surgery: No - Immunization History Immunization Up to Date: Yes - Suicide/Smoking/Psychosocial Hx Smoking Status: No Smoking History: Current some day smoker Have you smoked in the past 12 months: Yes Number of Cigarettes Smoked Daily: 2 If you are a former smoker, when did you quit?: 2010 Cigars Per Day: 0 Information on smoking cessation initiated: No 'Breaking Loose' booklet given: 02/22/18 Hx Alcohol Use: Yes Drug/Substance Use Hx: No Substance Use Type: Alcohol Hx Substance Use Treatment: Yes ([facility] March 2017) Review of Systems - Review of Systems Comments:: 04/30/18 12:40 GENERAL/CONSTITUTIONAL: No fever or chills. No weakness. HEAD, EYES, EARS, NOSE AND THROAT: No change in vision. No ear pain or discharge. No sore throat. CARDIOVASCULAR: + chest pain and shortness of breath. RESPIRATORY: No cough, wheezing, or hemoptysis. GASTROINTESTINAL: No nausea, vomiting, diarrhea or constipation. GENITOURINARY: No dysuria, frequency, or change in urination. MUSCULOSKELETAL: + BL knee pain and BL LE edema. No neck or back pain. SKIN: No rash NEUROLOGIC: No headache, vertigo, loss of consciousness, or change in strength/ sensation. ENDOCRINE: No increased thirst. No abnormal weight change HEMATOLOGIC/LYMPHATIC: No anemia, easy bleeding, or history of blood clots. ALLERGIC/IMMUNOLOGIC: No hives or skin allergy. *Physical Exam - Vital Signs Last Vital Signs Temp Pulse Resp BP Pulse Ox 97.3 F L 77 20 151/81 100 04/30/18 12:16 04/30/18 12:16 04/30/18 12:16 04/30/18 12:16 04/30/18 12:16 - Physical Exam Comments: 04/30/18 12:40 GENERAL: Awake, alert, and fully oriented, in no acute distress HEAD: No signs of trauma, normocephalic, atraumatic EYES: + Scleral icterus. PERRLA, EOMI, conjunctiva clear ENT: Auricles normal inspection, hearing grossly normal, nares patent, oropharynx clear without exudates. Moist mucosa NECK: Normal ROM, supple, no lymphadenopathy, JVD, or masses LUNGS: No distress, speaks full sentences, clear to auscultation bilaterally HEART: Regular rate and rhythm, normal S1 and S2, no murmurs, rubs or gallops, peripheral pulses normal and equal bilaterally. ABDOMEN: Soft, portruberant, normoactive bowel sounds.+ LLQ ttp. No guarding, no rebound. No masses. Neg CVA ttp. EXTREMITIES : BL LE non pitting edema. Normal inspection, Normal range of motion. No clubbing or cyanosis. NEUROLOGICAL: Cranial nerves II through XII grossly intact. Normal speech, normal gait, no focal sensorimotor deficits SKIN: + Jaundice. Warm, Dry, normal turgor, no rashes or lesions noted ED Treatment Course - LABORATORY CBC & Chemistry Diagram: 04/30/18 13:30 04/30/18 13:30 Medical Decision Making - Medical Decision Making 04/30/18 13:25 47 yo M with HTN, NIDDM, HLD, Depression with prior suicide attempt, cirrhosis ( 2/2 Etoh, s/p TIPS) who p/w BL LE edema and CP. VSS, AF, A&Ox3. ACS/HI r/o. Low risk PE based on Weils criteria. Patient with evidence of volume overload/ anasarca. Likely 2/2 cirrhosis. + LLQ ttp. R/o diverticulitis, SBP, colitis. Will consider acute CHF, PNA. ED Course: CBC,CMP, BNP, Cardiac Pr., EKG, CXR, CT AP 04/30/18 14:39 H/H: 7.9/24.4 K+ 6.5 - 10 U Insulin, 50 gm D50 given to patient. BNP: 881 Dr. Godinez contacted and agrees to admission to tele/obs. Peteroma GARVEY [facility] Nephrology consulted 04/30/18 16:13 Morphine 2 mg, Zofran 4 mg *DC/Admit/Observation/Transfer Diagnosis at time of Disposition: Hyperkalemia Volume overload Qualifiers: Hypervolemia type: other Qualified Code(s): E87.79 - Other fluid overload - Discharge Dispostion Decision to Admit order: Yes - Referrals - Patient Instructions - Post Discharge Activity - Attestations Physician Attestion: 04/30/18 12:41 I attest to the information provided in this note.
[2018-04-30 13:45] LABS: BASO % 1.2 % (0-2.0); EOS % 8.2 % (0-4.5); HEMATOCRIT 24.4 % (35.4-49); HEMOGLOBIN 7.9 GM/dL (11.7-16.9); LYMPH % 14.3 % (8-40); MCH 28.2 pg (25.7-33.7); MCHC 32.4 g/dl (32.0-35.9); MEAN PLT VOLUME 10.7 fl (7.5-11.1); MONO % 9.5 % (3.8-10.2); NEUT % 66.8 % (42.8-82.8); PLATELET COUNT 105 K/MM3 (134-434); RBC 2.81 M/mm3 (4.00-5.60); RDW 15.8 % (11.9-15.9); WHITE BLOOD COUNT 4.9 K/mm3 (4.0-10.0)
[2018-04-30 14:15] LABS: ALBUMIN 2.1 g/dl (3.4-5.0); ANION GAP 9 (8-16); BILIRUBIN,TOTAL 0.5 mg/dL (0.2-1.0); BLOOD UREA NITROGEN 54 mg/dL (7-18); CALCIUM 7.9 mg/dL (8.5-10.1); CHLORIDE 118 mmol/L (98-107); CO2 15 mmol/L (21-32); CREATININE 2.8 mg/dL (0.7-1.3); GLUCOSE,RANDOM 104 mg/dL (74-106); SGPT/ALT 20 U/L (12-78); SODIUM 142 mmol/L (136-145); TOT PROT 5.7 g/dl (6.4-8.2)
--- NOTE | 2018-04-30 14:18 | PDOC ---
Attending Attestation - HPI HPI: 04/30/18 14:18 The patient is 47 year old male, with a significant past medical history of hypertension, hyperlipidemia, diabetes, liver failure(secondary to ETOH abuse, last drank 3 months ago, s/p TIPS), depression with prior suicide attempt, who presents to the emergency department with chest pain for approximately 1 day. He reports his pain is sharp, but nonpleuritic and nonradiating. He reports associated worsening bilateral leg swelling and shortness of breath for approximately 90 days. He reports associated leg itching. He reports some nausea, but denies any abdominal pain, vomiting, diarrhea, or constipation. Patient reports being evaluated by his PCP, Dr. Ward, who prescribed him Lasix with minimal improvement. Patient reports he recently returned from [place]. Allergies: NKDA Past Surgical History: Right shoulder repair Social History: ETOH abuse(last used 3 months ago. Current everyday smoker. No recreational/IV drug use. PCP: Dr. Ward - Medical Decision Making 04/30/18 14:18 Documentation prepared by Shanell Jolley, acting as medical esthetician for Aleena Phillip MD. <Shanell Jolley - Last Filed: 04/30/18 14:18> - Resident Resident Name: Luigi Prieto - ED Attending Attestation I have performed the following: I have examined & evaluated the patient, The case was reviewed & discussed with the resident, I agree w/resident's findings & plan, Exceptions are as noted - Physicial Exam PE: GENERAL: Awake, alert, and fully oriented. Appears uncomfortable. HEAD: No signs of trauma EYES: PERRLA, EOMI, conjunctiva clear. +Scleral icterus. ENT: Auricles normal inspection, hearing grossly normal, nares patent, oropharynx clear without exudates. Moist mucosa NECK: Normal ROM, supple, no lymphadenopathy, JVD, or masses LUNGS: Breath sounds equal, clear to auscultation bilaterally. No wheezes, and no crackles HEART: Regular rate and rhythm, normal S1 and S2, no murmurs, rubs or gallops ABDOMEN: Soft, +Diffuse tenderness, worse in LLQ. Normoactive bowel sounds. + Mod ascites, +fluid wave. No guarding, no rebound. No masses EXTREMITIES: Normal range of motion, no edema. No clubbing or cyanosis. No cords, erythema, or tenderness NEUROLOGICAL: Cranial nerves II through XII grossly intact. Normal speech, normal gait. Motor and sensation intact. SKIN: Warm, Dry, normal turgor, no rashes. +Jaundice. - Medical Decision Making Pt with chronic renal failure, now with potassium 6. Will treat medically and admit for further management. Will obtain CT a/p to evaluate abd pain. <Aleena Phillip - Last Filed: 04/30/18 16:27>
[2018-04-30 14:19] LABS: ALK PHOS 124 U/L (45-117); N-TERMINAL BNP 881.06 pg/ml (5-125); SGOT/AST 35 U/L (15-37)
[2018-04-30 14:23] LABS: INR 1.06 (0.82-1.09)
[2018-04-30] MEDS ORDERED: INSULIN REGULAR HUMAN 100 UNITS/ML *VIAL IVPUSH ONE (14:35)
[2018-04-30] MEDS ORDERED: DEXTROSE 50%-WATER - 25 GM/50 ML VIAL IVPUSH ONE (14:36)
[2018-04-30] MEDS ORDERED: INSULIN REGULAR HUMAN 100 UNITS/ML *VIAL ONE (14:43)
[2018-04-30] MEDS ORDERED: DEXTROSE 50%-WATER 25 GM/50 ML DISP.SYRIN ONE (14:44)
[2018-04-30 14:45] LABS: URINE APPEARANCE CLEAR; URINE BILIRUBIN NEGATIVE (<2.0 mg/dL); URINE BLOOD 1+ (NEGATIVE); URINE COLOR YELLOW; URINE GLUCOSE (UA) 1+ (NEGATIVE); URINE KETONE NEGATIVE (NEGATIVE); URINE LEUK ESTERASE NEGATIVE (NEGATIVE); URINE NITRITE NEGATIVE (NEGATIVE); URINE UROBILINOGEN NEGATIVE mg/dL (0.2-1.0)
[2018-04-30 14:48] LABS: URINE PROTEIN 3+ (NEGATIVE)
[2018-04-30 14:55] LABS: EPI CELLS RARE /HPF (FEW); GRANULAR CASTS 3 /lpf; URINE HYALINE CAST 9 /lpf
[2018-04-30] MEDS ORDERED: ONDANSETRON 4 MG/2 ML VIAL IVPUSH ONE (16:11)
[2018-04-30] MEDS ORDERED: morphine CARPU-JECT 2 MG/1 ML DISP.SYRIN IVPUSH ONE (16:11)
[2018-04-30] MEDS ORDERED: morphine CARPU-JECT 2 MG/1 ML DISP.SYRIN ONE (16:12)
--- NOTE | 2018-04-30 16:31 | CON.GI ---
Consult Consult Specialty:: GI Reason for Consultation:: history of liver cirrhosis - History of Present Illness History of Present Illness: chart reviewed. Events noted. The patient was seen in the ED. As per initial intake: The patient is 47 year old male, with a significant past medical history of hypertension, hyperlipidemia, diabetes, liver failure( secondary to ETOH abuse, last drank 3 months ago, s/p TIPS 3-4 years ago), depression with prior suicide attempt, who presents to the emergency department with chest pain for approximately 1 day. He reports his pain is sharp, but nonpleuritic and nonradiating. He reports associated worsening bilateral leg swelling and shortness of breath for approximately 90 days. He reports associated leg itching. He reports some nausea, but denies any abdominal pain, vomiting, diarrhea, or constipation. Patient reports being evaluated by his PCP , Dr. Ward, who prescribed him Lasix with minimal improvement. Patient reports he recently returned from [place]. At the time of this encounter the patient appears comfortable. Awake, alert, oriented. No asterixis. Corroborates the above history. Complaints of bilateral, lower extremity swelling and itching. Denies fluctuating abdominal girth, increased forgetfulness, sense of confusion, disorientation. Denies nausea, vomiting, melena, hematemesis, fever, chills, jaundice. Denies weight loss. Had TIPS 3-4 years ago at [facility]. His last EGD was at that time. CAT scan of the abdomen and pelvis on this admission showed minimal abdominal ascites, moderate right pleural effusion, abdominal wall edema and cirrhotic liver with TIPS. No liver masses noted. He was found to have normocytic, normochromic anemia. Significant hyperkalemia and renal insufficiency, normal coagulation profile and liver enzymes. - Past Medical History Cardio/Vascular: Yes: HTN, Hyperlipdemia Hepatobiliary: Yes: Cirrhosis Renal/: Yes: Hematuria. No: Renal Calculi, UTI Endocrine: Yes: Diabetes Mellitus - Alcohol/Substance Use Hx Alcohol Use: Yes - Smoking History Smoking history: Current some day smoker Have you smoked in the past 12 months: Yes Aproximately how many cigarettes per day: 2 If you are a former smoker, when did you quit?: 2010 Home Medications - Allergies Allergies/Adverse Reactions: Allergies Allergy/AdvReac Type Severity Reaction Status Date / Time shellfish derived Allergy Severe Swelling Verified 03/31/18 06:59 - Home Medications Home Medications: Ambulatory Orders Amlodipine Besylate [Norvasc -] 10 mg PO DAILY #30 tab 05/11/17 Folic Acid - 1 mg PO DAILY #30 tablet 09/27/17 Multivitamin [One Daily] 1 each PO DAILY #30 tablet 09/27/17 Thiamine HCl [Vitamin B1 -] 100 mg PO DAILY #30 tablet 09/27/17 Clindamycin [Cleocin -] 300 mg PO Q8H 04/30/18 Clonidine HCl [Clonidine HCl ER] 0.1 mg PO DAILY 04/30/18 Ferrous Sulfate 325 mg PO DAILY 04/30/18 Furosemide [Lasix] 20 mg PO DAILY 04/30/18 Lisinopril [Prinivil] 10 mg PO DAILY 04/30/18 Family Disease History - Family Disease History Family Disease History: Diabetes: Father (alive ) Review of Systems Findings/Remarks: As per H&P and HPI Physical Exam-GI Vital Signs: Vital Signs Temperature 98.0 F 04/30/18 16:19 Pulse Rate 78 04/30/18 16:19 Respiratory Rate 16 04/30/18 16:19 Blood Pressure 129/67 04/30/18 16:19 O2 Sat by Pulse Oximetry (%) 98 04/30/18 16:19 Constitutional: Yes: Well Nourished, No Distress, Calm Eyes: Yes: Conjunctiva Clear HENT: Yes: Atraumatic Neck: Yes: Supple Cardiovascular: Yes: Regular Rate and Rhythm Respiratory: Yes: Regular Gastrointestinal Inspection: No: Ascites ...Auscultate: Yes: Normoactive Bowel Sounds ...Palpate: Yes: Soft. No: Firm/Rigid, Guarding, Mass, Tenderness, Tenderness, Epigastium, Tenderness, Rebound Edema: LLE: 3+ ( pitting edema), RLE: 3+ Neurological: Yes: Alert, Oriented. No: Asterixis, Confusion, Lethargy Labs: CBC, BMP 04/30/18 13:30 04/30/18 13:30 INR, PTT INR 1.06 (0.82-1.09) 04/30/18 13:30 Laboratory Last Values WBC 4.1 K/mm3 (4.0-10.0) 05/01/18 06:30 RBC 2.48 M/mm3 (4.00-5.60) L 05/01/18 06:30 Hgb 7.2 GM/dL (11.7-16.9) L 05/01/18 06:30 Hct 21.3 % (35.4-49) L 05/01/18 06:30 MCV 86.0 fl (80-96) 05/01/18 06:30 MCH 29.1 pg (25.7-33.7) 05/01/18 06:30 MCHC 33.8 g/dl (32.0-35.9) 05/01/18 06:30 RDW 15.6 % (11.9-15.9) 05/01/18 06:30 Plt Count 105 K/MM3 (134-434) L D 04/30/18 13:30 MPV 10.7 fl (7.5-11.1) 04/30/18 13:30 Absolute Neuts (auto) 2.2 # 05/01/18 06:30 Neutrophils % 53.3 % (42.8-82.8) D 05/01/18 06:30 Lymphocytes % 21.7 % (8-40) D 05/01/18 06:30 Monocytes % 9.5 % (3.8-10.2) 05/01/18 06:30 Eosinophils % 14.7 % (0-4.5) H 05/01/18 06:30 Basophils % 0.8 % (0-2.0) 05/01/18 06:30 Nucleated RBC % 0 % (0-0) 05/01/18 06:30 PT with INR 12.00 SEC (9.7-13.0) 04/30/18 13:30 INR 1.06 (0.82-1.09) 04/30/18 13:30 Sodium 144 mmol/L (136-145) 05/01/18 06:30 Potassium 5.5 mmol/L (3.5-5.1) H 05/01/18 06:30 Chloride 121 mmol/L (98-107) H 05/01/18 06:30 Carbon Dioxide 16 mmol/L (21-32) L 05/01/18 06:30 Anion Gap 7 (8-16) L 05/01/18 06:30 BUN 50 mg/dL (7-18) H 05/01/18 06:30 Creatinine 2.4 mg/dL (0.7-1.3) H 05/01/18 06:30 Creat Clearance w eGFR 29.42 (>60) 05/01/18 06:30 Random Glucose 80 mg/dL (74-106) 05/01/18 06:30 Calcium 7.2 mg/dL (8.5-10.1) L 05/01/18 06:30 Total Bilirubin 0.3 mg/dL (0.2-1.0) D 05/01/18 06:30 AST 29 U/L (15-37) 05/01/18 06:30 ALT 17 U/L (12-78) 05/01/18 06:30 Alkaline Phosphatase 112 U/L (45-117) 05/01/18 06:30 Creatine Kinase 276 IU/L (39-308) 04/30/18 13:30 Creatine Kinase Index 1.2 % (0.0-5.0) 04/30/18 13:30 CK-MB (CK-2) 3.35 ng/mL (0.5-3.6) 04/30/18 13:30 Troponin I < 0.02 ng/ml (0.00-0.05) 04/30/18 13:30 B-Natriuretic Peptide 881.06 pg/ml (5-125) H 04/30/18 13:30 Total Protein 4.9 g/dl (6.4-8.2) L 05/01/18 06:30 Albumin 1.8 g/dl (3.4-5.0) L 05/01/18 06:30 Urine Color Yellow 04/30/18 14:30 Urine Appearance Clear 04/30/18 14:30 Urine pH 5.0 (5.0-8.0) 04/30/18 14:30 Ur Specific [place] 1.011 (1.001-1.035) 04/30/18 14:30 Urine Protein 3+ (NEGATIVE) H 04/30/18 14:30 Urine Glucose (UA) 1+ (NEGATIVE) H 04/30/18 14:30 Urine Ketones Negative (NEGATIVE) 04/30/18 14:30 Urine Blood 1+ (NEGATIVE) H 04/30/18 14:30 Urine Nitrite Negative (NEGATIVE) 04/30/18 14:30 Urine Bilirubin Negative (<2.0 mg/dL) 04/30/18 14:30 Urine Urobilinogen Negative mg/dL (0.2-1.0) 04/30/18 14:30 Ur Leukocyte Esterase Negative (NEGATIVE) 04/30/18 14:30 Urine WBC (Auto) 2 /hpf (3-5) 04/30/18 14:30 Urine RBC (Auto) 4 /hpf (0-3) 04/30/18 14:30 Ur Epithelial Cells Rare /HPF (FEW) 04/30/18 14:30 Hyaline Casts 9 /lpf 04/30/18 14:30 Granular Casts 3 /lpf 04/30/18 14:30 Imaging - Results Cat Scan: Report Reviewed Problem List - Problems (1) Liver cirrhosis Code(s): K74.60 - UNSPECIFIED CIRRHOSIS OF LIVER (2) Hyperkalemia Code(s): E87.5 - HYPERKALEMIA (3) Alcohol dependence in controlled environment Code(s): F10.20 - ALCOHOL DEPENDENCE, UNCOMPLICATED (4) Alcohol dependence with uncomplicated withdrawal Code(s): F10.230 - ALCOHOL DEPENDENCE WITH WITHDRAWAL, UNCOMPLICATED Assessment/Plan a 47-year-old gentleman with the above history presents with hyperkalemia, renal insufficiency, chest pain, shortness of breath and lower extremity swelling. He was recently started on Lasix by his PCP for lower extremity edema with no improvement. The patient is not on Aldactone. The liver cirrhosis appears to be compensated. No signs of SBP. Doubt significant hepatorenal syndrome. Rule out prerenal azothemia from other causes. He is expected to have some degree of functional renal insufficiency due to the underlying liver cirrhosis however given the findings and his presentation, I suspect he may have an independent from liver cirrhosis kidney abnormality. Recommend correcting electrolytes, daily liver chemistry, alk phos, bilirubin, PT, INR. Doppler ultrasound of the liver and obtaining renal consult. Will follow.
[2018-04-30 18:27] LABS: ANION GAP 8 (8-16); BLOOD UREA NITROGEN 54 mg/dL (7-18); CALCIUM 7.8 mg/dL (8.5-10.1); CHLORIDE 121 mmol/L (98-107); CO2 15 mmol/L (21-32); CREATININE 2.6 mg/dL (0.7-1.3); GLUCOSE,RANDOM 86 mg/dL (74-106); POTASSIUM 5.4 mmol/L (3.5-5.1); SODIUM 144 mmol/L (136-145)
[2018-04-30 18:36] VITALS: BMI 34.1
[2018-04-30] MEDS ORDERED: diphenhydrAMINE HCL 25 MG CAPSULE (FP) PO PRN (22:31)
[2018-04-30] MEDS: morphine SULFATE 4 MG/ML VIAL IVPUSH PRN (22:39)
[2018-05-01] MEDS: morphine SULFATE 4 MG/ML VIAL IVPUSH PRN (05:55)
[2018-05-01 07:33] LABS: BASO % 0.8 % (0-2.0); EOS % 14.7 % (0-4.5); HEMATOCRIT 21.3 % (35.4-49); HEMOGLOBIN 7.2 GM/dL (11.7-16.9); LYMPH % 21.7 % (8-40); MCH 29.1 pg (25.7-33.7); MCHC 33.8 g/dl (32.0-35.9); MEAN PLT VOLUME 10.7 fl (7.5-11.1); MONO % 9.5 % (3.8-10.2); NEUT % 53.3 % (42.8-82.8); RBC 2.48 M/mm3 (4.00-5.60); RDW 15.6 % (11.9-15.9); WHITE BLOOD COUNT 4.1 K/mm3 (4.0-10.0)
[2018-05-01 08:05] LABS: ALBUMIN 1.8 g/dl (3.4-5.0); ANION GAP 7 (8-16); BLOOD UREA NITROGEN 50 mg/dL (7-18); CALCIUM 7.2 mg/dL (8.5-10.1); CHLORIDE 121 mmol/L (98-107); CO2 16 mmol/L (21-32); GLUCOSE,RANDOM 80 mg/dL (74-106); POTASSIUM 5.5 mmol/L (3.5-5.1); SGOT/AST 29 U/L (15-37); SGPT/ALT 17 U/L (12-78); SODIUM 144 mmol/L (136-145)
[2018-05-01 08:07] LABS: ALK PHOS 112 U/L (45-117); BILIRUBIN,TOTAL 0.3 mg/dL (0.2-1.0); CREATININE 2.4 mg/dL (0.7-1.3); TOT PROT 4.9 g/dl (6.4-8.2)
[2018-05-01 10:43] LABS: PLATELET COUNT 75 K/MM3 (134-434)
[2018-05-01] MEDS ORDERED: PATIENT'S OWN MEDICATION (NON-FORMULARY) (Clonidine Hcl [Clonidine Hcl Er] 0.1 MG) PO SCH (11:00)
[2018-05-01] MEDS ORDERED: LISINOPRIL 20 MG TABLET (FP) PO SCH (11:00)
[2018-05-01] MEDS ORDERED: FUROSEMIDE 20 MG TABLET (FP) PO SCH (11:00)
--- NOTE | 2018-05-01 11:04 | HP ---
Admitting History and Physical - Primary Care Physician PCP: Rene Ward ([facility]) - Admission Chief Complaint: Abdominal pain, Nausea, Vomiting. BLLE pain History of Present Illness: The patient is 47 year old male, with a significant past medical history of hypertension, hyperlipidemia, diabetes, liver failure(secondary to ETOH abuse, last drank 3 months ago, s/p TIPS), depression with prior suicide attempt, who presents to the emergency department with chest pain for approximately 1 day. He reports his pain is sharp, but nonpleuritic and nonradiating. He reports associated worsening bilateral leg swelling and shortness of breath for approximately 90 days. He reports associated leg itching. He reports some nausea, but denies any abdominal pain, vomiting, diarrhea, or constipation. Patient reports being evaluated by his PCP, Dr. Ward, who prescribed him Lasix with minimal improvement. Patient reports he recently returned from [place]. History Source: Patient Limitations to Obtaining History: No Limitations - Past Medical History Cardiovascular: Yes: HTN, Hyperlipdemia Hepatobiliary: Yes: Cirrhosis Renal/: Yes: Hematuria. No: Renal Calculi, UTI Heme/Onc: Yes: Thrombocytopenia Endocrine: Yes: Diabetes Mellitus - Smoking History Smoking history: Current some day smoker Have you smoked in the past 12 months: Yes Aproximately how many cigarettes per day: 2 If you are a former smoker, when did you quit?: 2010 - Alcohol/Substance Use Hx Alcohol Use: Yes Home Medications - Allergies Allergies/Adverse Reactions: Allergies Allergy/AdvReac Type Severity Reaction Status Date / Time shellfish derived Allergy Severe Swelling Verified 02/24/18 06:59 - Home Medications Home Medications: Ambulatory Orders Amlodipine Besylate [Norvasc -] 10 mg PO DAILY #30 tab 05/11/17 Folic Acid - 1 mg PO DAILY #30 tablet 09/27/17 Multivitamin [One Daily] 1 each PO DAILY #30 tablet 09/27/17 Thiamine HCl [Vitamin B1 -] 100 mg PO DAILY #30 tablet 09/27/17 Clindamycin [Cleocin -] 300 mg PO Q8H 04/30/18 Clonidine HCl [Clonidine HCl ER] 0.1 mg PO DAILY 04/30/18 Ferrous Sulfate 325 mg PO DAILY 04/30/18 Furosemide [Lasix] 20 mg PO DAILY 04/30/18 Lisinopril [Prinivil] 10 mg PO DAILY 04/30/18 Family Disease History - Family Disease History Family Disease History: Diabetes: Father (alive ) Review of Systems - Review of Systems Constitutional: reports: No Symptoms, Malaise HENT: reports: No Symptoms Neck: reports: No Symptoms Cardiovascular: reports: No Symptoms, Shortness of Breath Respiratory: reports: Cough, SOB on Exertion Gastrointestinal: reports: Abdominal Pain Genitourinary: reports: No Symptoms Breasts: reports: No Symptoms Reported Musculoskeletal: reports: Extremity Pain (BLLE) Integumentary: reports: Pruritis (BLLE) Neurological: reports: No Symptoms Endocrine: reports: No Symptoms Hematology/Lymphatic: reports: No Symptoms Psychiatric: reports: No Symptoms Physical Examination Vital Signs: Vital Signs Temperature 98.0 F 05/01/18 06:27 Pulse Rate 79 05/01/18 06:27 Respiratory Rate 20 05/01/18 06:27 Blood Pressure 138/64 05/01/18 06:27 O2 Sat by Pulse Oximetry (%) 100 04/30/18 21:00 Constitutional: Yes: Well Nourished, No Distress, Calm Cardiovascular: Yes: Regular Rate and Rhythm Respiratory: Yes: Regular, Diminished (RLL) Gastrointestinal: Yes: Normal Bowel Sounds, Soft, Tenderness (RUQ, RLQ) Musculoskeletal: Yes: Muscle Weakness Extremities: Yes: WNL Edema: Yes Edema: LLE: 2+, RLE: 2+ Peripheral Pulses WNL: Yes Integumentary: Yes: Rash (BL Dorsal foot) Neurological: Yes: Alert, Oriented Psychiatric: Yes: Alert, Oriented Labs: CBC, BMP 05/01/18 06:30 05/01/18 06:30 Imaging - Results Chest X-ray: Report Reviewed Cat Scan: Report Reviewed Problem List - Problems (1) Anemia Assessment/Plan: -hematology consult -labs: B12, folate, thyroid profile, iron profile -stool OB -transfuse on hematology discretion, if done, would recommend giving extra Furosemide 40 mg IVP -monitor trend Code(s): D64.9 - ANEMIA, UNSPECIFIED (2) Hyperkalemia Assessment/Plan: -nephrology consult -monitor trend Code(s): E87.5 - HYPERKALEMIA (3) Liver cirrhosis Code(s): K74.60 - UNSPECIFIED CIRRHOSIS OF LIVER (4) Acute kidney injury Code(s): N17.9 - ACUTE KIDNEY FAILURE, UNSPECIFIED (5) Alcoholic hepatitis Code(s): K70.10 - ALCOHOLIC HEPATITIS WITHOUT ASCITES
[2018-05-01] MEDS ORDERED: SPIRONOLACTONE 25 MG TABLET (FP) PO SCH (11:15)
[2018-05-01] MEDS ORDERED: LISINOPRIL 10 MG TABLET (FP) PO SCH (11:22)
[2018-05-01] MEDS: THIAMINE HCL 100 MG TABLET (FP) PO SCH (11:45)
[2018-05-01] MEDS: amLODIPine BESYLATE 10 MG TABLET (FP) PO SCH (11:45)
[2018-05-01] MEDS: FOLIC ACID 1 MG TABLET (FP) PO SCH (11:45)
[2018-05-01] MEDS: TAMSULOSIN HCL 0.4 MG CAP.ER.24H (FP) PO SCH (11:45)
[2018-05-01] MEDS: FERROUS SO4 325 MG TABLET (FP) PO SCH (11:46)
[2018-05-01] MEDS: FUROSEMIDE 40 MG/4 ML INJECTABLE VIAL IVPUSH SCH (11:46)
[2018-05-01] MEDS: MULTIVITAMINS (DAILY MVI) TABLET (FP) PO SCH (11:46)
[2018-05-01] MEDS: traMADol HCL 50 MG TABLET PO PRN ×2 (12:08→22:10)
[2018-05-01] MEDS: ALBUTEROL SO4 2.5/IPRATROPIUM 0.5 INH SOL 3 ML VIAL.NEB. NEB SCH ×3 (12:15→21:09)
[2018-05-01] MEDS: NICOTINE 7 MG/24 HOURS TOPICAL PATCH TD SCH (13:26)
[2018-05-01] MEDS: TRIAMCINOLONE ACET 0.5% OINT 15 GM TUBE TP SCH ×2 (13:27→22:15)
--- NOTE | 2018-05-01 15:50 | CONSULT ---
Consult Consult Specialty:: Nephrology Reason for Consultation:: GRABIEL - History of Present Illness Chief Complaint: lower ext edema History of Present Illness: Pt is a 47 year old male with pmhx of CKD, GRABIEL, DM, HTN, depression, prior suicide attempts, and liver cirrhosis who presents to the ER with worsening lower ext edema. He is known to me from prior hospital visits. He has been in [place] for the last few months. He presents with worsening lower ext edema that has been gradual. It is unclear if he has been taking his meds. He currently denies chest pain. He denies shortness of breath. He denies worsening ascites. I was called to evaluate him for renal failure. - History Source History Provided By: Patient, Medical Record - Past Medical History Cardio/Vascular: Yes: HTN, Hyperlipdemia Hepatobiliary: Yes: Cirrhosis Renal/: Yes: Renal Inusuff, Hematuria Endocrine: Yes: Diabetes Mellitus - Past Surgical History Additional Surgical History: TIPS - Alcohol/Substance Use Hx Alcohol Use: Yes - Smoking History Smoking history: Current some day smoker Have you smoked in the past 12 months: Yes Aproximately how many cigarettes per day: 2 If you are a former smoker, when did you quit?: 2010 Home Medications - Allergies Allergies/Adverse Reactions: Allergies Allergy/AdvReac Type Severity Reaction Status Date / Time shellfish derived Allergy Severe Swelling Verified 02/24/18 06:59 - Home Medications Home Medications: Ambulatory Orders Amlodipine Besylate [Norvasc -] 10 mg PO DAILY #30 tab 05/11/17 Folic Acid - 1 mg PO DAILY #30 tablet 09/27/17 Multivitamin [One Daily] 1 each PO DAILY #30 tablet 09/27/17 Thiamine HCl [Vitamin B1 -] 100 mg PO DAILY #30 tablet 09/27/17 Clindamycin [Cleocin -] 300 mg PO Q8H 04/30/18 Clonidine HCl [Clonidine HCl ER] 0.1 mg PO DAILY 04/30/18 Ferrous Sulfate 325 mg PO DAILY 04/30/18 Furosemide [Lasix] 20 mg PO DAILY 04/30/18 Lisinopril [Prinivil] 10 mg PO DAILY 04/30/18 Family Disease History - Family Disease History Family Disease History: Diabetes: Father (alive ) Review of Systems - Review of Systems Constitutional: reports: Malaise Eyes: reports: No Symptoms HENT: reports: No Symptoms Neck: reports: No Symptoms Cardiovascular: reports: Edema Respiratory: reports: No Symptoms Gastrointestinal: reports: No Symptoms Genitourinary: reports: No Symptoms Musculoskeletal: reports: No Symptoms Integumentary: reports: No Symptoms Neurological: reports: No Symptoms Endocrine: reports: No Symptoms Hematology/Lymphatic: reports: No Symptoms Psychiatric: reports: No Symptoms Physical Exam Vital Signs: Vital Signs Temperature 98.6 F 05/01/18 15:01 Pulse Rate 78 05/01/18 15:01 Respiratory Rate 20 05/01/18 15:01 Blood Pressure 127/63 05/01/18 15:01 O2 Sat by Pulse Oximetry (%) 100 05/01/18 09:00 Constitutional: Yes: Calm HENT: Yes: Atraumatic Neck: Yes: Supple Cardiovascular: Yes: S1, S2 Respiratory: Yes: CTA Bilaterally Gastrointestinal: Yes: Soft Renal/: Yes: WNL Musculoskeletal: Yes: WNL Edema: Yes Edema: LLE: 2+, RLE: 2+ Neurological: Yes: Oriented Psychiatric: Yes: Oriented Labs: CBC, BMP 05/01/18 06:30 05/01/18 06:30 Laboratory Tests 04/30/18 04/30/18 04/30/18 13:30 13:30 14:30 WBC Hgb 7.9 L Sodium Potassium 6.0 H D BUN Creatinine 2.8 H Urine Protein 3+ H Urine Blood 1+ H 04/30/18 05/01/18 05/01/18 17:55 06:30 06:30 WBC 4.1 Hgb 7.2 L Sodium 144 Potassium 5.4 H 5.5 H BUN 50 H Creatinine 2.6 H 2.4 H Urine Protein Urine Blood Imaging - Results Chest X-ray: Report Reviewed Cat Scan: Report Reviewed Problem List - Problems (1) CKD (chronic kidney disease) Code(s): N18.9 - CHRONIC KIDNEY DISEASE, UNSPECIFIED (2) Hyperkalemia Code(s): E87.5 - HYPERKALEMIA (3) Liver cirrhosis Code(s): K74.60 - UNSPECIFIED CIRRHOSIS OF LIVER (4) Volume overload Code(s): E87.70 - FLUID OVERLOAD, UNSPECIFIED Qualifiers: Hypervolemia type: other Qualified Code(s): E87.79 - Other fluid overload Assessment/Plan Current Medications Generic Name Dose Route Start Last Admin Trade Name Freq PRN Reason Stop Dose Admin Albuterol/Ipratropium 1 amp 05/01/18 12:00 05/01/18 15:19 Duoneb - NEB 1 amp RQID [facility] Administration Amino Acids 30 ml 05/01/18 17:30 Prosource No Carb Liquid Pkt PO BID@0800,1730 [facility] Amlodipine Besylate 10 mg 05/01/18 11:00 05/01/18 11:45 Norvasc - PO 10 mg DAILY [facility] Administration Clonidine 0.1 mg 05/01/18 22:00 Catapres - PO BID [facility] Ferrous Sulfate 325 mg 05/01/18 11:00 05/01/18 11:46 Feosol - PO 325 mg DAILY [facility] Administration Folic Acid 1 mg 05/01/18 11:00 05/01/18 11:45 Folic Acid - PO 1 mg DAILY [facility] Administration Furosemide 40 mg 05/01/18 11:15 05/01/18 11:46 Lasix Injection - IVPUSH 40 mg DAILY [facility] Administration Hydroxyzine HCl 50 mg 05/01/18 11:03 Atarax - PO Q6H PRN FOR ITCHING Lisinopril 10 mg 05/01/18 11:22 Prinivil PO DAILY [facility] Morphine Sulfate 2 mg 04/30/18 22:30 05/01/18 05:55 Morphine Sulfate IVPUSH 2 mg Q4H PRN Administration PAIN SCALE 5-10 Multivitamins/Minerals/Vitamin C 1 tab 05/01/18 11:00 05/01/18 11:46 Tab-A-Vit - PO 1 tab DAILY [facility] Administration Nicotine 7 mg 05/01/18 11:15 05/01/18 13:26 Nicoderm Patch - TD 7 mg DAILY [facility] Administration Spironolactone 25 mg 05/01/18 11:15 05/01/18 11:45 Aldactone - PO 25 mg DAILY [facility] Administration Tamsulosin HCl 0.4 mg 05/01/18 11:22 05/01/18 11:45 Flomax - PO 0.4 mg DAILY@0830 [facility] Administration Thiamine HCl 100 mg 05/01/18 11:00 05/01/18 11:45 Vitamin B1 - PO 100 mg DAILY [facility] Administration Tramadol HCl 50 mg 05/01/18 11:02 05/01/18 12:08 Ultram - PO 50 mg Q6H PRN Administration PAIN LEVEL 4 - 6 Triamcinolone Acetonide 1 applic 05/01/18 11:15 05/01/18 13:27 Aristocort 0.5% Ointment - TP 1 applic BID DEV Administration Laboratory Tests 02/27/18 07:45 Creatinine 2.4 H Impression 1. GRABIEL 2. etoh abuse 3. depression 4. anxiety 5. hx suicide attempts 6. obesity 7. HLD 8. liver cirrhosis 9. hyperkalemia 10. fluid overload 11. proteinuria 12. CKD Plan - will give another dose of lasix, this should help with potassium as well - stop spironolactone - hold lisinopril - low potassium diet - renal function is improving - check urine protein to senior education specialist ratio - will follow - pt left the hospital with a creatinine of 2.4 in February, will cont to monitor and see where he levels off - will need renal workup, pt did not follow as outpt Dr Sparks
[2018-05-01] MEDS ORDERED: FUROSEMIDE 40 MG/4 ML INJECTABLE VIAL IVPUSH ONE (15:51)
--- NOTE | 2018-05-01 15:52 | CONSULT ---
Consult Consult Specialty:: hematology - History of Present Illness History of Present Illness: 47 year old male, with a significant past medical history of hypertension, hyperlipidemia, diabetes, liver failure(secondary to ETOH abuse, last drank 3 months ago, s/p TIPS), depression with prior suicide attempt, who presents to the emergency department with chest pain for approximately 1 day. He reports his pain is sharp, but nonpleuritic and nonradiating. He reports associated worsening bilateral leg swelling and shortness of breath for approximately 90 days. He reports associated leg itching. He reports some nausea, but denies any abdominal pain, vomiting, diarrhea, or constipation. Patient reports being evaluated by his PCP, Dr. Ward, who prescribed him Lasix with minimal improvement. Patient reports he recently returned from [place]. - History Source History Provided By: Patient, Medical Record - Past Medical History Cardio/Vascular: Yes: HTN, Hyperlipdemia Hepatobiliary: Yes: Cirrhosis Renal/: Yes: Hematuria. No: Renal Calculi, UTI Endocrine: Yes: Diabetes Mellitus - Alcohol/Substance Use Hx Alcohol Use: Yes - Smoking History Smoking history: Current some day smoker Have you smoked in the past 12 months: Yes Aproximately how many cigarettes per day: 2 If you are a former smoker, when did you quit?: 2010 Home Medications - Allergies Allergies/Adverse Reactions: Allergies Allergy/AdvReac Type Severity Reaction Status Date / Time shellfish derived Allergy Severe Swelling Verified 02/24/18 06:59 - Home Medications Home Medications: Ambulatory Orders Amlodipine Besylate [Norvasc -] 10 mg PO DAILY #30 tab 05/11/17 Folic Acid - 1 mg PO DAILY #30 tablet 09/27/17 Multivitamin [One Daily] 1 each PO DAILY #30 tablet 09/27/17 Thiamine HCl [Vitamin B1 -] 100 mg PO DAILY #30 tablet 09/27/17 Clindamycin [Cleocin -] 300 mg PO Q8H 04/30/18 Clonidine HCl [Clonidine HCl ER] 0.1 mg PO DAILY 04/30/18 Ferrous Sulfate 325 mg PO DAILY 04/30/18 Furosemide [Lasix] 20 mg PO DAILY 04/30/18 Lisinopril [Prinivil] 10 mg PO DAILY 04/30/18 Family Disease History - Family Disease History Family Disease History: Diabetes: Father (alive ) Physical Exam Vital Signs: Vital Signs Temperature 98.6 F 05/01/18 15:01 Pulse Rate 78 05/01/18 15:01 Respiratory Rate 20 05/01/18 15:01 Blood Pressure 127/63 05/01/18 15:01 O2 Sat by Pulse Oximetry (%) 100 05/01/18 09:00 Constitutional: Yes: Well Nourished, No Distress Eyes: Yes: Conjunctiva Clear HENT: Yes: Atraumatic, Normocephalic Neck: Yes: Supple Cardiovascular: Yes: Regular Rate and Rhythm Respiratory: Yes: Regular, CTA Bilaterally Gastrointestinal: Yes: Soft, Abdomen, Obese, Ascites Edema: Yes Edema: LLE: 2+, RLE: 2+ Psychiatric: Yes: Alert, Oriented Labs: CBC, BMP 05/01/18 06:30 05/01/18 06:30 Assessment/Plan Anemia/thrombocytopenia: Likely multifactorial. pt with cirrhosis for anemia [facility]osh supportive transfusions as needed
[2018-05-01] MEDS: AMINO ACIDS/PROTEIN HYDROLYS 30 ML LIQUID.PKT PO SCH (17:05)
--- NOTE | 2018-05-01 17:59 | EKG ---
Test Reason : Blood Pressure : / mmHG Vent. Rate : 072 BPM Atrial Rate : 072 BPM P-R Int : 148 ms QRS Dur : 086 ms QT Int : 408 ms P-R-T Axes : 022 023 050 degrees QTc Int : 446 ms NORMAL SINUS RHYTHM NORMAL ECG WHEN COMPARED WITH ECG OF 24-FEB-2018 06:50, NO SIGNIFICANT CHANGE WAS FOUND Confirmed by MD JESUS MANUEL, PAUL ([id number]) on 05/01/2018 5:58:50 PM Referred By: Confirmed By:PAUL KEN MD
[2018-05-01] MEDS: hydrOXYzine HCL 25 MG TABLET (FP) PO PRN (22:10)
[2018-05-01] MEDS: cloNIDine HCL 0.1 MG TABLET PO SCH (22:14)
[2018-05-02 06:59] LABS: CHLORIDE 118 mmol/L (98-107); POTASSIUM 5.1 mmol/L (3.5-5.1); SODIUM 141 mmol/L (136-145)
[2018-05-02 07:28] LABS: BASO % 0.9 % (0-2.0); EOS % 12.9 % (0-4.5); HEMATOCRIT 21.1 % (35.4-49); HEMOGLOBIN 7.1 GM/dL (11.7-16.9); LYMPH % 23.1 % (8-40); MCH 28.9 pg (25.7-33.7); MCHC 33.8 g/dl (32.0-35.9); MEAN CELL VOLUME 85.4 fl (80-96); MEAN PLT VOLUME 10.3 fl (7.5-11.1); MONO % 8.3 % (3.8-10.2); NEUT % 54.8 % (42.8-82.8); PLATELET COUNT 71 K/MM3 (134-434); RBC 2.47 M/mm3 (4.00-5.60); RDW 15.6 % (11.9-15.9); RETICULOCYTES 2.43 % (0.5-1.5); WHITE BLOOD COUNT 2.9 K/mm3 (4.0-10.0)
--- NOTE | 2018-05-02 08:16 | PN ---
Progress Note, Physician History of Present Illness: c/o sob no cp - Current Medication List Current Medications: Active Medications Albuterol/Ipratropium (Duoneb -) 1 amp NEB RQID [facility] Last Admin: 05/01/18 21:09 Dose: 1 amp Amino Acids (Prosource No Carb Liquid Pkt) 30 ml PO BID@0800,1730 [facility] Last Admin: 05/01/18 17:05 Dose: 30 ml Amlodipine Besylate (Norvasc -) 10 mg PO DAILY [facility] Last Admin: 05/01/18 11:45 Dose: 10 mg Clonidine (Catapres -) 0.1 mg PO BID [facility] Last Admin: 05/01/18 22:14 Dose: 0.1 mg Ferrous Sulfate (Feosol -) 325 mg PO DAILY [facility] Last Admin: 05/01/18 11:46 Dose: 325 mg Folic Acid (Folic Acid -) 1 mg PO DAILY [facility] Last Admin: 05/01/18 11:45 Dose: 1 mg Furosemide (Lasix Injection -) 40 mg IVPUSH DAILY [facility] Last Admin: 05/01/18 11:46 Dose: 40 mg Hydroxyzine HCl (Atarax -) 50 mg PO Q6H PRN PRN Reason: FOR ITCHING Last Admin: 05/01/18 22:10 Dose: 50 mg Morphine Sulfate (Morphine Sulfate) 2 mg IVPUSH Q4H PRN PRN Reason: PAIN SCALE 5-10 Last Admin: 05/01/18 05:55 Dose: 2 mg Multivitamins/Minerals/Vitamin C (Tab-A-Vit -) 1 tab PO DAILY [facility] Last Admin: 05/01/18 11:46 Dose: 1 tab Nicotine (Nicoderm Patch -) 7 mg TD DAILY [facility] Last Admin: 05/01/18 13:26 Dose: 7 mg Tamsulosin HCl (Flomax -) 0.4 mg PO DAILY@0830 [facility] Last Admin: 05/01/18 11:45 Dose: 0.4 mg Thiamine HCl (Vitamin B1 -) 100 mg PO DAILY [facility] Last Admin: 05/01/18 11:45 Dose: 100 mg Tramadol HCl (Ultram -) 50 mg PO Q6H PRN PRN Reason: PAIN LEVEL 4 - 6 Last Admin: 05/01/18 22:10 Dose: 50 mg Triamcinolone Acetonide (Aristocort 0.5% Ointment -) 1 applic TP BID DEV Last Admin: 05/01/18 22:15 Dose: 1 applic - Objective Vital Signs: Vital Signs Temperature 98.1 F 05/02/18 06:49 Pulse Rate 74 05/02/18 06:49 Respiratory Rate 20 05/02/18 06:49 Blood Pressure 136/71 05/02/18 06:49 O2 Sat by Pulse Oximetry (%) 100 05/01/18 21:00 Cardiovascular: Yes: S1, S2 Respiratory: Yes: Rales (at the bases) Gastrointestinal: Yes: Normal Bowel Sounds, Soft Edema: Yes Labs: CBC, BMP 05/02/18 06:00 INR, PTT INR 1.06 (0.82-1.09) 04/30/18 13:30 Problem List - Problems (1) Anemia Assessment/Plan: -hematology consult -labs: B12, folate, thyroid profile, iron profile -stool OB -transfuse on hematology discretion, if done, would recommend giving extra Furosemide 40 mg IVP -monitor trend - Gi on case Code(s): D64.9 - ANEMIA, UNSPECIFIED (2) CHF (congestive heart failure) Assessment/Plan: -IV Lasix -echo -cardiology -ct of chest -Follow Labs Code(s): I50.9 - HEART FAILURE, UNSPECIFIED (3) CKD (chronic kidney disease) Assessment/Plan: -Monitor on diuretics -Renal Code(s): N18.9 - CHRONIC KIDNEY DISEASE, UNSPECIFIED (4) Hyperkalemia Code(s): E87.5 - HYPERKALEMIA (5) Liver cirrhosis Code(s): K74.60 - UNSPECIFIED CIRRHOSIS OF LIVER
[2018-05-02 08:25] LABS: ALBUMIN 1.7 g/dl (3.4-5.0); ALK PHOS 116 U/L (45-117); ANION GAP 9 (8-16); BILIRUBIN,TOTAL 0.3 mg/dL (0.2-1.0); BLOOD UREA NITROGEN 47 mg/dL (7-18); CALCIUM 7.7 mg/dL (8.5-10.1); CO2 14 mmol/L (21-32); CREATININE 2.1 mg/dL (0.7-1.3); GLUCOSE,RANDOM 77 mg/dL (74-106); LDH 252 U/L (87-241); SGOT/AST 31 U/L (15-37); SGPT/ALT 18 U/L (12-78); TOT PROT 4.9 g/dl (6.4-8.2)
[2018-05-02] MEDS: ALBUTEROL SO4 2.5/IPRATROPIUM 0.5 INH SOL 3 ML VIAL.NEB. NEB SCH ×4 (08:30→20:36)
[2018-05-02 08:58] LABS: AMYLASE 81 U/L (25-115)
[2018-05-02] MEDS ORDERED: PT OWN MED DRAWER 7, Y5N ONE (09:49)
[2018-05-02] MEDS: AMINO ACIDS/PROTEIN HYDROLYS 30 ML LIQUID.PKT PO SCH ×2 (09:51→17:16)
[2018-05-02] MEDS: TAMSULOSIN HCL 0.4 MG CAP.ER.24H (FP) PO SCH (09:51)
[2018-05-02] MEDS: amLODIPine BESYLATE 10 MG TABLET (FP) PO SCH (09:52)
[2018-05-02] MEDS: MULTIVITAMINS (DAILY MVI) TABLET (FP) PO SCH (09:52)
[2018-05-02] MEDS: FOLIC ACID 1 MG TABLET (FP) PO SCH (09:52)
[2018-05-02] MEDS: THIAMINE HCL 100 MG TABLET (FP) PO SCH (09:52)
[2018-05-02] MEDS: FUROSEMIDE 40 MG/4 ML INJECTABLE VIAL IVPUSH SCH (09:52)
[2018-05-02] MEDS: cloNIDine HCL 0.1 MG TABLET PO SCH ×2 (09:52→21:57)
[2018-05-02] MEDS: FERROUS SO4 325 MG TABLET (FP) PO SCH (09:52)
[2018-05-02] MEDS: NICOTINE 7 MG/24 HOURS TOPICAL PATCH TD SCH (09:52)
[2018-05-02] MEDS: TRIAMCINOLONE ACET 0.5% OINT 15 GM TUBE TP SCH ×2 (09:53→22:00)
[2018-05-02 09:54] LABS: LIPASE 407 U/L (73-393)
[2018-05-02] MEDS: morphine SULFATE 4 MG/ML VIAL IVPUSH PRN (10:04)
--- NOTE | 2018-05-02 10:44 | PN ---
Progress Note, Physician History of Present Illness: No acute events reported. The patient appears comfortable, not in distress. Awake, alert, oriented. Ambulating. No asterixis, ataxia. - Current Medication List Current Medications: Active Medications Albuterol/Ipratropium (Duoneb -) 1 amp NEB RQID [facility] Last Admin: 05/02/18 08:30 Dose: 1 amp Amino Acids (Prosource No Carb Liquid Pkt) 30 ml PO BID@0800,1730 [facility] Last Admin: 05/02/18 09:51 Dose: 30 ml Amlodipine Besylate (Norvasc -) 10 mg PO DAILY [facility] Last Admin: 05/02/18 09:52 Dose: 10 mg Clonidine (Catapres -) 0.1 mg PO BID [facility] Last Admin: 05/02/18 09:52 Dose: 0.1 mg Ferrous Sulfate (Feosol -) 325 mg PO DAILY [facility] Last Admin: 05/02/18 09:52 Dose: 325 mg Folic Acid (Folic Acid -) 1 mg PO DAILY [facility] Last Admin: 05/02/18 09:52 Dose: 1 mg Furosemide (Lasix Injection -) 40 mg IVPUSH DAILY [facility] Last Admin: 05/02/18 09:52 Dose: 40 mg Hydroxyzine HCl (Atarax -) 50 mg PO Q6H PRN PRN Reason: FOR ITCHING Last Admin: 05/01/18 22:10 Dose: 50 mg Morphine Sulfate (Morphine Sulfate) 2 mg IVPUSH Q4H PRN PRN Reason: PAIN SCALE 5-10 Last Admin: 05/02/18 10:04 Dose: 2 mg Multivitamins/Minerals/Vitamin C (Tab-A-Vit -) 1 tab PO DAILY [facility] Last Admin: 05/02/18 09:52 Dose: 1 tab Nicotine (Nicoderm Patch -) 7 mg TD DAILY [facility] Last Admin: 05/02/18 09:52 Dose: 7 mg Tamsulosin HCl (Flomax -) 0.4 mg PO DAILY@0830 [facility] Last Admin: 05/02/18 09:51 Dose: 0.4 mg Thiamine HCl (Vitamin B1 -) 100 mg PO DAILY [facility] Last Admin: 05/02/18 09:52 Dose: 100 mg Tramadol HCl (Ultram -) 50 mg PO Q6H PRN PRN Reason: PAIN LEVEL 4 - 6 Last Admin: 05/01/18 22:10 Dose: 50 mg Triamcinolone Acetonide (Aristocort 0.5% Ointment -) 1 applic TP BID DEV Last Admin: 05/02/18 09:53 Dose: 1 applic - Objective Vital Signs: Vital Signs Temperature 98.6 F 05/02/18 09:45 Pulse Rate 87 05/02/18 09:45 Respiratory Rate 20 05/02/18 09:45 Blood Pressure 141/83 05/02/18 09:45 O2 Sat by Pulse Oximetry (%) 100 05/01/18 21:00 Labs: CBC, BMP 05/02/18 06:00 05/02/18 06:00 INR, PTT INR 1.06 (0.82-1.09) 04/30/18 13:30 Problem List - Problems (1) Liver cirrhosis Code(s): K74.60 - UNSPECIFIED CIRRHOSIS OF LIVER (2) Hyperkalemia Code(s): E87.5 - HYPERKALEMIA (3) Alcohol dependence in controlled environment Code(s): F10.20 - ALCOHOL DEPENDENCE, UNCOMPLICATED (4) Alcohol dependence with uncomplicated withdrawal Code(s): F10.230 - ALCOHOL DEPENDENCE WITH WITHDRAWAL, UNCOMPLICATED Assessment/Plan Doppler US. Continue current care. Lactulose BID. Will follow.
[2018-05-02] MEDS ORDERED: FUROSEMIDE 40 MG/4 ML INJECTABLE VIAL IVPUSH ONE (13:19)
--- NOTE | 2018-05-02 13:19 | PN ---
Progress Note, Physician History of Present Illness: Pt seen and examined at bedside. He feels that his edema is improving. - Current Medication List Current Medications: Active Medications Albuterol/Ipratropium (Duoneb -) 1 amp NEB RQID [facility] Last Admin: 05/02/18 11:54 Dose: Not Given Amino Acids (Prosource No Carb Liquid Pkt) 30 ml PO BID@0800,1730 [facility] Last Admin: 05/02/18 09:51 Dose: 30 ml Amlodipine Besylate (Norvasc -) 10 mg PO DAILY [facility] Last Admin: 05/02/18 09:52 Dose: 10 mg Clonidine (Catapres -) 0.1 mg PO BID [facility] Last Admin: 05/02/18 09:52 Dose: 0.1 mg Ferrous Sulfate (Feosol -) 325 mg PO DAILY [facility] Last Admin: 05/02/18 09:52 Dose: 325 mg Folic Acid (Folic Acid -) 1 mg PO DAILY [facility] Last Admin: 05/02/18 09:52 Dose: 1 mg Furosemide (Lasix Injection -) 40 mg IVPUSH DAILY [facility] Last Admin: 05/02/18 09:52 Dose: 40 mg Hydroxyzine HCl (Atarax -) 50 mg PO Q6H PRN PRN Reason: FOR ITCHING Last Admin: 05/01/18 22:10 Dose: 50 mg Morphine Sulfate (Morphine Sulfate) 2 mg IVPUSH Q4H PRN PRN Reason: PAIN SCALE 5-10 Last Admin: 05/02/18 10:04 Dose: 2 mg Multivitamins/Minerals/Vitamin C (Tab-A-Vit -) 1 tab PO DAILY [facility] Last Admin: 05/02/18 09:52 Dose: 1 tab Nicotine (Nicoderm Patch -) 7 mg TD DAILY [facility] Last Admin: 05/02/18 09:52 Dose: 7 mg Tamsulosin HCl (Flomax -) 0.4 mg PO DAILY@0830 [facility] Last Admin: 05/02/18 09:51 Dose: 0.4 mg Thiamine HCl (Vitamin B1 -) 100 mg PO DAILY [facility] Last Admin: 05/02/18 09:52 Dose: 100 mg Tramadol HCl (Ultram -) 50 mg PO Q6H PRN PRN Reason: PAIN LEVEL 4 - 6 Last Admin: 05/01/18 22:10 Dose: 50 mg Triamcinolone Acetonide (Aristocort 0.5% Ointment -) 1 applic TP BID DEV Last Admin: 05/02/18 09:53 Dose: 1 applic - Objective Vital Signs: Vital Signs Temperature 98.6 F 05/02/18 09:45 Pulse Rate 87 05/02/18 09:45 Respiratory Rate 20 05/02/18 09:45 Blood Pressure 141/83 05/02/18 09:45 O2 Sat by Pulse Oximetry (%) 100 05/01/18 21:00 Constitutional: Yes: Calm Eyes: Yes: Conjunctiva Clear HENT: Yes: Atraumatic Cardiovascular: Yes: S1, S2 Respiratory: Yes: CTA Bilaterally Gastrointestinal: Yes: Soft Genitourinary: Yes: WNL Musculoskeletal: Yes: WNL Edema: Yes Edema: LLE: 1+, RLE: 1+ Neurological: Yes: Oriented Psychiatric: Yes: Oriented Labs: CBC, BMP 05/02/18 06:00 05/02/18 06:00 INR, PTT INR 1.06 (0.82-1.09) 04/30/18 13:30 Problem List - Problems (1) CKD (chronic kidney disease) Code(s): N18.9 - CHRONIC KIDNEY DISEASE, UNSPECIFIED (2) Hyperkalemia Code(s): E87.5 - HYPERKALEMIA (3) Liver cirrhosis Code(s): K74.60 - UNSPECIFIED CIRRHOSIS OF LIVER (4) Volume overload Code(s): E87.70 - FLUID OVERLOAD, UNSPECIFIED Qualifiers: Hypervolemia type: other Qualified Code(s): E87.79 - Other fluid overload Assessment/Plan Current Medications Generic Name Dose Route Start Last Admin Trade Name Alexx PRN Reason Stop Dose Admin Albuterol/Ipratropium 1 amp 05/01/18 12:00 05/02/18 11:54 Duoneb - NEB Not Given RQID DEV Amino Acids 30 ml 05/01/18 17:30 05/02/18 09:51 Prosource No Carb Liquid Pkt PO 30 ml BID@0800,1730 DEV Administration Amlodipine Besylate 10 mg 05/01/18 11:00 05/02/18 09:52 Norvasc - PO 10 mg DAILY DEV Administration Clonidine 0.1 mg 05/01/18 22:00 05/02/18 09:52 Catapres - PO 0.1 mg BID DEV Administration Ferrous Sulfate 325 mg 05/01/18 11:00 05/02/18 09:52 Feosol - PO 325 mg DAILY DEV Administration Folic Acid 1 mg 05/01/18 11:00 05/02/18 09:52 Folic Acid - PO 1 mg DAILY DEV Administration Furosemide 40 mg 05/01/18 11:15 05/02/18 09:52 Lasix Injection - IVPUSH 40 mg DAILY DEV Administration Hydroxyzine HCl 50 mg 05/01/18 11:03 05/01/18 22:10 Atarax - PO 50 mg Q6H PRN Administration FOR ITCHING Morphine Sulfate 2 mg 04/30/18 22:30 05/02/18 10:04 Morphine Sulfate IVPUSH 2 mg Q4H PRN Administration PAIN SCALE 5-10 Multivitamins/Minerals/Vitamin C 1 tab 05/01/18 11:00 05/02/18 09:52 Tab-A-Vit - PO 1 tab DAILY DEV Administration Nicotine 7 mg 05/01/18 11:15 05/02/18 09:52 Nicoderm Patch - TD 7 mg DAILY DEV Administration Tamsulosin HCl 0.4 mg 05/01/18 11:22 05/02/18 09:51 Flomax - PO 0.4 mg DAILY@0830 DEV Administration Thiamine HCl 100 mg 05/01/18 11:00 05/02/18 09:52 Vitamin B1 - PO 100 mg DAILY DEV Administration Tramadol HCl 50 mg 05/01/18 11:02 05/01/18 22:10 Ultram - PO 50 mg Q6H PRN Administration PAIN LEVEL 4 - 6 Triamcinolone Acetonide 1 applic 05/01/18 11:15 05/02/18 09:53 Aristocort 0.5% Ointment - TP 1 applic BID DEV Administration Impression 1. GRABIEL 2. etoh abuse 3. depression 4. anxiety 5. hx suicide attempts 6. obesity 7. HLD 8. liver cirrhosis 9. hyperkalemia 10. fluid overload 11. proteinuria 12. CKD Plan - will give a second dose of lasix - repeat labs in am - potassium im proving - spironolactone on hold until potassium stable - repeat ua - will need renal workup after discharge Dr Sparks
--- NOTE | 2018-05-02 16:02 | CON.CARD ---
Consult Consult Specialty:: Cardiology Referred by:: Dr. Godinez Reason for Consultation:: CHF - History of Present Illness Chief Complaint: abd pain, chest pain History of Present Illness: 47 year old man h/o HTN, DMII, HLD, cirrhosis/liver failure due to etoh s/p TIPS admitted with sob, edema, chest pain, itching, nausea and vomiting. Pt seen and examined today in nad. states that he is feeling better since admission. states that his chest tightness just started prior to admission never had it before. sob and edema are chronic but worsened recently. no palpitations, pnd, orthopnea - History Source History Provided By: Patient, Medical Record Limitations to Obtaining History: No Limitations - Past Medical History Cardio/Vascular: Yes: HTN, Hyperlipdemia Hepatobiliary: Yes: Cirrhosis Renal/: Yes: Renal Inusuff, Hematuria Endocrine: Yes: Diabetes Mellitus - Past Surgical History Additional Surgical History: TIPS - Alcohol/Substance Use Hx Alcohol Use: Yes - Smoking History Smoking history: Current some day smoker Have you smoked in the past 12 months: Yes Aproximately how many cigarettes per day: 2 If you are a former smoker, when did you quit?: 2010 Home Medications - Allergies Allergies/Adverse Reactions: Allergies Allergy/AdvReac Type Severity Reaction Status Date / Time shellfish derived Allergy Severe Swelling Verified 02/24/18 06:59 - Home Medications Home Medications: Ambulatory Orders Amlodipine Besylate [Norvasc -] 10 mg PO DAILY #30 tab 05/11/17 Folic Acid - 1 mg PO DAILY #30 tablet 09/27/17 Multivitamin [One Daily] 1 each PO DAILY #30 tablet 09/27/17 Thiamine HCl [Vitamin B1 -] 100 mg PO DAILY #30 tablet 09/27/17 Clindamycin [Cleocin -] 300 mg PO Q8H 04/30/18 Clonidine HCl [Clonidine HCl ER] 0.1 mg PO DAILY 04/30/18 Ferrous Sulfate 325 mg PO DAILY 04/30/18 Furosemide [Lasix] 20 mg PO DAILY 04/30/18 Lisinopril [Prinivil] 10 mg PO DAILY 04/30/18 Family Disease History - Family Disease History Family Disease History: Diabetes: Father (alive ) Review of Systems - Review of Systems Constitutional: reports: Weakness. denies: No Symptoms, Chills, Diaphoresis, Fever, Lethargy, Loss of Appetite, Malaise, Night Sweats, Unintentional Wgt. Loss, Other Eyes: denies: No Symptoms, Blind Spots, Blurred Vision, Double Vision, Eye Pain , Floaters, Photophobia, Recent Change in Vision, Other HENT: denies: No Symptoms, Difficult Swallowing, Ear Discharge, Ear Pain, Epistaxis, Gingival Bleeding, Hearing Loss, Mouth Swelling, Nasal Congestion, Ocular Prosthesis, Throat Pain, Toothache, Ringing in Ears, Other Neck: denies: No Symptoms, Decreased ROM, Lumps, Pain on Movement, Stiffness, Swollen Glands, Tenderness, Other Cardiovascular: reports: Chest Pain, Shortness of Breath Respiratory: reports: Exercise Intolerance, SOB, SOB on Exertion. denies: No Symptoms, Cough, Hemoptysis, Orthopnea, PND, Snoring, Wheezing, Other Gastrointestinal: reports: Abdominal Pain, Nausea, Vomiting. denies: No Symptoms, Bloating, Constipation, Diarrhea, Dysphagia, Indigestion, Melena, Rectal Bleeding, Vomiting Blood, Other Genitourinary: denies: No Symptoms, Burning, Discharge, Dysuria, Flank Pain, Frequency, Hematuria, Incontinence, Lesions, Menses, Pain, Testicular Mass, Testicular Pain, Testicular Swelling, Urgency, Vaginal Bleeding, Other Breasts: denies: No Symptoms Reported, See HPI, Breast Implants, Discharge from Nipple, Lumps, Pain, Skin Changes, Other Musculoskeletal: denies: No Symptoms, Back Pain, Crepitus, Decreased ROM, Extremity Pain, Joint Pain, Joint Swelling, Muscle Pain, Muscle Cramps, Muscle Weakness, Other Integumentary: denies: No Symptoms, Blister, Bruising, Change in Color, Eczema, Erythema, Incision, Lesions, Lump, Pallor, Pruritis, Rash, Wound, Other Neurological: denies: No Symptoms, Change in LOC, Change in Speech, Confusion, Dizziness, Headache, Incoordination, Numbness, Parasthesia, Pre-Existing Deficit , Seizure, Syncope, Tremors, Unsteady Gait, Weakness, Other Endocrine: denies: No Symptoms, Excessive Sweating, Flushing, Increased Hunger, Increased Thirst, Intolerance to Cold, Intolerance to Heat, Unexplained Weight Gain, Unexplained Weight Loss, Other Hematology/Lymphatic: denies: No Symptoms, Easily Bruised, Excessive Bleeding, Swollen Glands, Other Psychiatric: denies: No Symptoms, Altered Sleep Pattern, Anxiety, Depression, Hallucinations, Panic, Paranoia, Suicidal, Other - Risk Factors Known Risk Factors: Yes: Hypertension Vital Signs: Vital Signs Temperature 97.6 F 05/02/18 13:23 Pulse Rate 77 05/02/18 13:23 Respiratory Rate 20 05/02/18 13:23 Blood Pressure 136/71 05/02/18 13:23 O2 Sat by Pulse Oximetry (%) 100 05/01/18 21:00 Constitutional: Yes: No Distress, Calm Eyes: Yes: Conjunctiva Clear, EOM Intact, PERRL HENT: Yes: Atraumatic, Normocephalic Neck: Yes: Supple, Trachea Midline Respiratory: Yes: Regular, Diminished. No: Rales, Rhonchi, SOB, Wheezes Gastrointestinal: Yes: Normal Bowel Sounds, Soft. No: Distention, Tenderness Cardiovascular: Yes: Regular Rate and Rhythm. No: Bradycardia, Tachycardia, Pulse Irregular, Gallop, Rub, Varicosities JVD: No Carotid Bruit: No PMI: Non-Displaced Heart Sounds: Yes: S1, S2. No: Split S2, S3, S4, Clicks, Gallop, Rub, Bruit Murmur: No: Systolic Murmur, Diastolic Murmur Edema: Yes Edema: LLE: Trace, RLE: Trace Peripheral Pulses WNL: Yes Peripheral Pulses: 2+ Right Dorsalis Pedis Neurological: Yes: Alert, Oriented Psychiatric: Yes: Alert, Oriented - Other Data Labs, Other Data: CBC, BMP 05/02/18 06:00 05/02/18 06:00 INR, PTT INR 1.06 (0.82-1.09) 04/30/18 13:30 ekg-nsr 72bpm, no sig St abnl Echo: Report Reviewed Imaging - Results Chest X-ray: Report Reviewed, Image Reviewed EKG: Report Reviewed, Image Reviewed Other: Report Reviewed, Image Reviewed Assessment/Plan 47 year old man h/o HTN, DMII, HLD, cirrhosis/liver failure due to etoh s/p TIPS admitted with sob, edema, chest pain, itching, nausea and vomiting. Pt seen and examined today in nad. states that he is feeling better since admission. states that his chest tightness just started prior to admission never had it before. sob and edema are chronic but worsened recently. Anemia, RICHARD, and hypoalbuminemia noted. SOB- -b/l pleural effusions, b/l LE edema -Echo 05/02/18 showed normal LV systolic function, stage I diastolic dysfunction, mild mr/tr, no pericardial effusion -Suspect pleural effusions and peripheral edema largely in part due to 3rd spacing from hypoalbuminemia -would not aggressively diurese as this may lead to intravascular depletion, dose Lasix prn at the discretion of nephrology and GI -spironolactone on hold for RICHARD and hyperkalemia -consider pulmonary for thoracentesis of pleural effusions -no additional planned inpatient cardiac work up at this time Chest pain-atypical, unlikely ACS -cardiac enzymes were wnl -no ischemia on ekg -echo showed normal LV systolic function and no sig valvular abnl, no pericardial effusion Please call with any additional questions.
[2018-05-02] MEDS: traMADol HCL 50 MG TABLET PO PRN (21:57)
[2018-05-02] MEDS: hydrOXYzine HCL 25 MG TABLET (FP) PO PRN (21:57)
[2018-05-02 22:03] LABS: URINE APPEARANCE CLEAR; URINE BILIRUBIN NEGATIVE (<2.0 mg/dL); URINE BLOOD 1+ (NEGATIVE); URINE COLOR STRAW; URINE GLUCOSE (UA) 1+ (NEGATIVE); URINE KETONE NEGATIVE (NEGATIVE); URINE LEUK ESTERASE NEGATIVE (NEGATIVE); URINE NITRITE NEGATIVE (NEGATIVE); URINE UROBILINOGEN NEGATIVE mg/dL (0.2-1.0)
[2018-05-02 22:08] LABS: URINE PROTEIN 2+ (NEGATIVE)
[2018-05-02 22:10] LABS: URINE MUCUS RARE
--- NOTE | 2018-05-02 23:05 | PN ---
Progress Note (short form) - Note Progress Note: seen and examined. c/o constipation. Constitutional: Yes: Well Nourished, No Distress Eyes: Yes: Conjunctiva Clear HENT: Yes: Atraumatic, Normocephalic Neck: Yes: Supple Cardiovascular: Yes: Regular Rate and Rhythm Respiratory: Yes: Regular, CTA Bilaterally Gastrointestinal: Yes: Soft, Abdomen, Obese, Ascites Edema: Yes Edema: LLE: 2+, RLE: 2+ Psychiatric: Yes: Alert, Oriented Labs: Last Vital Signs Temp Pulse Resp BP Pulse Ox 97.5 F L 84 20 141/77 100 05/02/18 17:41 05/02/18 17:41 05/02/18 17:41 05/02/18 17:41 05/02/18 09:00 CBC, BMP 05/02/18 06:00 05/02/18 06:00 Current Medications Generic Name Dose Route Start Last Admin Trade Name Freq PRN Reason Stop Dose Admin Albuterol/Ipratropium 1 amp 05/01/18 12:00 05/02/18 20:36 Duoneb - NEB 1 amp RQID DEV Administration Amino Acids 30 ml 05/01/18 17:30 05/02/18 17:16 Prosource No Carb Liquid Pkt PO 30 ml BID@0800,1730 DEV Administration Amlodipine Besylate 10 mg 05/01/18 11:00 05/02/18 09:52 Norvasc - PO 10 mg DAILY DEV Administration Clonidine 0.1 mg 05/01/18 22:00 05/02/18 21:57 Catapres - PO 0.1 mg BID DEV Administration Ferrous Sulfate 325 mg 05/01/18 11:00 05/02/18 09:52 Feosol - PO 325 mg DAILY DEV Administration Folic Acid 1 mg 05/01/18 11:00 05/02/18 09:52 Folic Acid - PO 1 mg DAILY DEV Administration Furosemide 40 mg 05/01/18 11:15 05/02/18 09:52 Lasix Injection - IVPUSH 40 mg DAILY DEV Administration Hydroxyzine HCl 50 mg 05/01/18 11:03 05/02/18 21:57 Atarax - PO 50 mg Q6H PRN Administration FOR ITCHING Morphine Sulfate 2 mg 04/30/18 22:30 05/02/18 10:04 Morphine Sulfate IVPUSH 2 mg Q4H PRN Administration PAIN SCALE 5-10 Multivitamins/Minerals/Vitamin C 1 tab 05/01/18 11:00 05/02/18 09:52 Tab-A-Vit - PO 1 tab DAILY DEV Administration Nicotine 7 mg 05/01/18 11:15 05/02/18 09:52 Nicoderm Patch - TD 7 mg DAILY DEV Administration Tamsulosin HCl 0.4 mg 05/01/18 11:22 05/02/18 09:51 Flomax - PO 0.4 mg DAILY@0830 DEV Administration Thiamine HCl 100 mg 05/01/18 11:00 05/02/18 09:52 Vitamin B1 - PO 100 mg DAILY DEV Administration Tramadol HCl 50 mg 05/01/18 11:02 05/02/18 21:57 Ultram - PO 50 mg Q6H PRN Administration PAIN LEVEL 4 - 6 Triamcinolone Acetonide 1 applic 05/01/18 11:15 05/02/18 22:00 Aristocort 0.5% Ointment - TP 1 applic BID DEV Administration for PRBCs today Lasix as needed GI/renal f/u noted f/u on mcintosh sent
[2018-05-03] MEDS: POLYETHYLENE GLYCOL 3350 119 GM BTL PO SCH ×3 (00:13→22:40)
[2018-05-03] MEDS: ALBUTEROL SO4 2.5/IPRATROPIUM 0.5 INH SOL 3 ML VIAL.NEB. NEB SCH ×4 (07:35→21:00)
[2018-05-03 07:45] LABS: BASO % 0.7 % (0-2.0); HEMATOCRIT 23.3 % (35.4-49); LYMPH % 17.7 % (8-40); MCH 29.1 pg (25.7-33.7); MCHC 34.1 g/dl (32.0-35.9); MEAN CELL VOLUME 85.1 fl (80-96); MEAN PLT VOLUME 10.5 fl (7.5-11.1); MONO % 7.5 % (3.8-10.2); NEUT % 66.1 % (42.8-82.8); PLATELET COUNT 69 K/MM3 (134-434); RBC 2.74 M/mm3 (4.00-5.60); RDW 15.1 % (11.9-15.9); WHITE BLOOD COUNT 3.3 K/mm3 (4.0-10.0)
[2018-05-03 08:07] LABS: SERUM IRON SATURATION 11 % (15-55); TOTAL IRON BINDING CAPACITY 207 ug/dL (250-450); UIBC 185 ug/dL (111-343)
[2018-05-03 08:12] LABS: CHLORIDE 117 mmol/L (98-107); POTASSIUM 5.2 mmol/L (3.5-5.1); SODIUM 141 mmol/L (136-145)
[2018-05-03 08:25] LABS: ALBUMIN 1.7 g/dl (3.4-5.0); ALK PHOS 113 U/L (45-117); ANION GAP 10 (8-16); BILIRUBIN,TOTAL 0.5 mg/dL (0.2-1.0); BLOOD UREA NITROGEN 48 mg/dL (7-18); CALCIUM 7.5 mg/dL (8.5-10.1); CO2 14 mmol/L (21-32); CREATININE 2.1 mg/dL (0.7-1.3); GLUCOSE,RANDOM 86 mg/dL (74-106); SGOT/AST 26 U/L (15-37); SGPT/ALT 17 U/L (12-78); TOT PROT 4.9 g/dl (6.4-8.2)
[2018-05-03] MEDS: AMINO ACIDS/PROTEIN HYDROLYS 30 ML LIQUID.PKT PO SCH ×2 (10:09→17:27)
[2018-05-03] MEDS: amLODIPine BESYLATE 10 MG TABLET (FP) PO SCH (10:10)
[2018-05-03] MEDS: FOLIC ACID 1 MG TABLET (FP) PO SCH (10:10)
[2018-05-03] MEDS: MULTIVITAMINS (DAILY MVI) TABLET (FP) PO SCH (10:10)
[2018-05-03] MEDS: THIAMINE HCL 100 MG TABLET (FP) PO SCH (10:10)
[2018-05-03] MEDS: TAMSULOSIN HCL 0.4 MG CAP.ER.24H (FP) PO SCH (10:10)
[2018-05-03] MEDS: FERROUS SO4 325 MG TABLET (FP) PO SCH (10:10)
[2018-05-03] MEDS: FUROSEMIDE 40 MG/4 ML INJECTABLE VIAL IVPUSH SCH (10:11)
[2018-05-03] MEDS: cloNIDine HCL 0.1 MG TABLET PO SCH ×2 (10:11→22:02)
[2018-05-03] MEDS: TRIAMCINOLONE ACET 0.5% OINT 15 GM TUBE TP SCH ×2 (10:12→22:15)
--- NOTE | 2018-05-03 10:38 | PN ---
Progress Note, Physician Chief Complaint: SOB Pleural Effusion Liver cirrhosis History of Present Illness: NAD self ambulatory received 1 unit PRBC yesterday H/H improved Seen by Nephrology, spironolactone on hold for hyperkalemia Seen by Cardiology, no cardiac intervention suggested at this time - Current Medication List Current Medications: Active Medications Albuterol/Ipratropium (Duoneb -) 1 amp NEB RQID [facility] Last Admin: 05/03/18 07:35 Dose: 1 amp Amino Acids (Prosource No Carb Liquid Pkt) 30 ml PO BID@0800,1730 [facility] Last Admin: 05/03/18 10:09 Dose: 30 ml Amlodipine Besylate (Norvasc -) 10 mg PO DAILY [facility] Last Admin: 05/03/18 10:10 Dose: 10 mg Clonidine (Catapres -) 0.1 mg PO BID [facility] Last Admin: 05/03/18 10:11 Dose: 0.1 mg Ferrous Sulfate (Feosol -) 325 mg PO DAILY [facility] Last Admin: 05/03/18 10:10 Dose: 325 mg Folic Acid (Folic Acid -) 1 mg PO DAILY [facility] Last Admin: 05/03/18 10:10 Dose: 1 mg Furosemide (Lasix Injection -) 40 mg IVPUSH DAILY [facility] Last Admin: 05/03/18 10:11 Dose: 40 mg Hydroxyzine HCl (Atarax -) 50 mg PO Q6H PRN PRN Reason: FOR ITCHING Last Admin: 05/02/18 21:57 Dose: 50 mg Morphine Sulfate (Morphine Sulfate) 2 mg IVPUSH Q4H PRN PRN Reason: PAIN SCALE 5-10 Last Admin: 05/02/18 10:04 Dose: 2 mg Multivitamins/Minerals/Vitamin C (Tab-A-Vit -) 1 tab PO DAILY [facility] Last Admin: 05/03/18 10:10 Dose: 1 tab Nicotine (Nicoderm Patch -) 7 mg TD DAILY [facility] Last Admin: 05/02/18 09:52 Dose: 7 mg Polyethylene Glycol (Miralax (For Daily Use) -) 17 gm PO BID [facility] Last Admin: 05/03/18 10:12 Dose: 17 gm Tamsulosin HCl (Flomax -) 0.4 mg PO DAILY@0830 [facility] Last Admin: 05/03/18 10:10 Dose: 0.4 mg Thiamine HCl (Vitamin B1 -) 100 mg PO DAILY [facility] Last Admin: 05/03/18 10:10 Dose: 100 mg Tramadol HCl (Ultram -) 50 mg PO Q6H PRN PRN Reason: PAIN LEVEL 4 - 6 Last Admin: 05/02/18 21:57 Dose: 50 mg Triamcinolone Acetonide (Aristocort 0.5% Ointment -) 1 applic TP BID [facility] Last Admin: 05/03/18 10:12 Dose: 1 applic - Objective Vital Signs: Vital Signs Temperature 99.5 F 05/03/18 07:31 Pulse Rate 78 05/03/18 07:31 Respiratory Rate 20 05/03/18 07:31 Blood Pressure 139/70 05/03/18 07:31 O2 Sat by Pulse Oximetry (%) 96 05/02/18 21:00 Constitutional: Yes: Well Nourished, No Distress, Calm Cardiovascular: Yes: Regular Rate and Rhythm Respiratory: Yes: Regular Gastrointestinal: Yes: Normal Bowel Sounds, Soft, Ascites Musculoskeletal: Yes: WNL Extremities: Yes: WNL Edema: Yes Edema: LLE: 1+, RLE: 1+ Peripheral Pulses WNL: Yes Neurological: Yes: Alert, Oriented Psychiatric: Yes: Alert, Oriented Labs: CBC, BMP 05/03/18 06:20 05/03/18 06:20 INR, PTT INR 1.06 (0.82-1.09) 04/30/18 13:30 Problem List - Problems (1) Anemia Assessment/Plan: -hematology consult -labs: B12, folate, thyroid profile, iron profile -stool OB -transfuse on hematology discretion, if done, would recommend giving extra Furosemide 40 mg IVP -monitor trend Code(s): D64.9 - ANEMIA, UNSPECIFIED (2) Hyperkalemia Assessment/Plan: -nephrology consult -monitor trend -low potassium diet Code(s): E87.5 - HYPERKALEMIA (3) Liver cirrhosis Assessment/Plan: -GI consult -monitor labs Code(s): K74.60 - UNSPECIFIED CIRRHOSIS OF LIVER (4) Acute kidney injury Assessment/Plan: -nephrology consult Code(s): N17.9 - ACUTE KIDNEY FAILURE, UNSPECIFIED (5) Alcoholic hepatitis Code(s): K70.10 - ALCOHOLIC HEPATITIS WITHOUT ASCITES (6) Pleural effusion Assessment/Plan: -pulmonary consult Code(s): J90 - PLEURAL EFFUSION, NOT ELSEWHERE CLASSIFIED (7) Volume overload Assessment/Plan: 2/2 to third spacing due to liver cirrhosis and CHF -lasix 40 mg IVP daily -low sodium diet -hold spironolactone until K+ improves Code(s): E87.70 - FLUID OVERLOAD, UNSPECIFIED Qualifiers: Hypervolemia type: other Qualified Code(s): E87.79 - Other fluid overload Assessment/Plan see problem list
[2018-05-03] MEDS: guaiFENesin/D-METHORPHAN HB 1 EACH TAB.ER.12H PO SCH ×2 (12:00→22:41)
[2018-05-03] MEDS: HEPARIN NA (PORCINE) 5,000 UNITS/ML 1ML VIAL SQ SCH ×2 (12:15→22:02)
[2018-05-03] MEDS: morphine SULFATE 4 MG/ML VIAL IVPUSH PRN ×3 (12:16→22:01)
--- NOTE | 2018-05-03 12:31 | CON.PULM ---
Consult Consult Specialty:: PULMONARY Referred by:: NINO Pabon Reason for Consultation:: pleural effusion - History of Present Illness Chief Complaint: shortness of breath History of Present Illness: 47yo male with h/o HTN, DM, hyperlipidemia, liver cirrhosis s/p TIPS who was admitted for worsening shortness of breath and leg swelling. He reports a nonproductive cough and with chest discomfort. No subjective fevers but with occasional chills. His leg swelling and abdominal distention has been worsening over the past month. Was started on lasix as outpt but reports no significant improvement. Found to have a right sided pleural effusion on imaging. - History Source History Provided By: Patient, Medical Record Limitations to Obtaining History: No Limitations - Past Medical History Cardio/Vascular: Yes: HTN, Hyperlipdemia Hepatobiliary: Yes: Cirrhosis Renal/: Yes: Hematuria. No: Renal Calculi, UTI Endocrine: Yes: Diabetes Mellitus - Past Surgical History Additional Surgical History: TIPS - Alcohol/Substance Use Hx Alcohol Use: Yes - Smoking History Smoking history: Current some day smoker Have you smoked in the past 12 months: Yes Aproximately how many cigarettes per day: 2 If you are a former smoker, when did you quit?: 2010 Home Medications - Allergies Allergies/Adverse Reactions: Allergies Allergy/AdvReac Type Severity Reaction Status Date / Time shellfish derived Allergy Severe Swelling Verified 02/24/18 06:59 - Home Medications Home Medications: Ambulatory Orders Amlodipine Besylate [Norvasc -] 10 mg PO DAILY #30 tab 05/11/17 Folic Acid - 1 mg PO DAILY #30 tablet 09/27/17 Multivitamin [One Daily] 1 each PO DAILY #30 tablet 09/27/17 Thiamine HCl [Vitamin B1 -] 100 mg PO DAILY #30 tablet 09/27/17 Clindamycin [Cleocin -] 300 mg PO Q8H 04/30/18 Clonidine HCl [Clonidine HCl ER] 0.1 mg PO DAILY 04/30/18 Ferrous Sulfate 325 mg PO DAILY 04/30/18 Furosemide [Lasix] 20 mg PO DAILY 04/30/18 Lisinopril [Prinivil] 10 mg PO DAILY 04/30/18 Family Disease History - Family Disease History Family Disease History: Diabetes: Father (alive ) Review of Systems - Review of Systems Constitutional: reports: Chills, Weakness. denies: Fever Eyes: denies: Recent Change in Vision HENT: denies: Nasal Congestion, Throat Pain Neck: denies: Stiffness, Tenderness Cardiovascular: reports: Chest Pain, Edema, Shortness of Breath. denies: Palpitations Respiratory: reports: Cough, Exercise Intolerance, Orthopnea, SOB on Exertion. denies: Hemoptysis, Wheezing Gastrointestinal: reports: Bloating. denies: Abdominal Pain, Nausea, Vomiting Genitourinary: denies: Dysuria, Hematuria Neurological: denies: Dizziness, Headache Physical Exam Vital Sings: Vital Signs Temperature 99.5 F 05/03/18 07:31 Pulse Rate 78 05/03/18 07:31 Respiratory Rate 20 05/03/18 07:31 Blood Pressure 139/70 05/03/18 07:31 O2 Sat by Pulse Oximetry (%) 96 05/02/18 21:00 Constitutional: Yes: Calm Eyes: Yes: Conjunctiva Clear, EOM Intact HENT: Yes: Atraumatic, Normocephalic Neck: Yes: Supple, Trachea Midline Cardiovascular: Yes: Regular Rate and Rhythm Respiratory: Yes: Diminished (right side 1/2 up) ...Clubbing: No Gastrointestinal: Yes: Normal Bowel Sounds, Soft, Ascites. No: Tenderness Edema: Yes Neurological: Yes: Alert, Oriented Labs: CBC, BMP 05/03/18 06:20 05/03/18 06:20 Imaging - Results Chest X-ray: Report Reviewed, Image Reviewed Cat Scan: Report Reviewed, Image Reviewed Problem List - Problems (1) Pleural effusion Code(s): J90 - PLEURAL EFFUSION, NOT ELSEWHERE CLASSIFIED (2) Liver cirrhosis Code(s): K74.60 - UNSPECIFIED CIRRHOSIS OF LIVER (3) S/P TIPS (transjugular intrahepatic portosystemic shunt) Code(s): Z95.828 - PRESENCE OF OTHER VASCULAR IMPLANTS AND GRAFTS (4) Diabetes 1.5, managed as type 1 Code(s): E13.9 - OTHER SPECIFIED DIABETES MELLITUS WITHOUT COMPLICATIONS (5) Essential hypertension Code(s): I10 - ESSENTIAL (PRIMARY) HYPERTENSION (6) Hypercholesterolemia Code(s): E78.0 - PURE HYPERCHOLESTEROLEMIA * DO NOT USE * Assessment/Plan 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
--- NOTE | 2018-05-03 12:40 | PN ---
Progress Note, Physician History of Present Illness: No acute events reported. The patient appears comfortable, not in distress. Awake, alert, oriented. Ambulating. No asterixis, ataxia. for complaints of shortness of breath and cough when moving. No orthopnea, or platypnea. - Current Medication List Current Medications: Active Medications Albuterol/Ipratropium (Duoneb -) 1 amp NEB RQID [facility] Last Admin: 05/03/18 07:35 Dose: 1 amp Amino Acids (Prosource No Carb Liquid Pkt) 30 ml PO BID@0800,1730 [facility] Last Admin: 05/03/18 10:09 Dose: 30 ml Amlodipine Besylate (Norvasc -) 10 mg PO DAILY [facility] Last Admin: 05/03/18 10:10 Dose: 10 mg Benzocaine/Menthol (Cepacol Lozenge -) 1 each MM PRN PRN PRN Reason: SORE THROAT Clonidine (Catapres -) 0.1 mg PO BID [facility] Last Admin: 05/03/18 10:11 Dose: 0.1 mg Ferrous Sulfate (Feosol -) 325 mg PO DAILY [facility] Last Admin: 05/03/18 10:10 Dose: 325 mg Folic Acid (Folic Acid -) 1 mg PO DAILY [facility] Last Admin: 05/03/18 10:10 Dose: 1 mg Furosemide (Lasix Injection -) 40 mg IVPUSH DAILY [facility] Last Admin: 05/03/18 10:11 Dose: 40 mg Guaifenesin (Mucinex Dm -) 1 tablet PO BID [facility] Heparin Sodium (Porcine) (Heparin -) 5,000 unit SQ BID [facility] Last Admin: 05/03/18 12:15 Dose: 5,000 unit Hydroxyzine HCl (Atarax -) 50 mg PO Q6H PRN PRN Reason: FOR ITCHING Last Admin: 05/02/18 21:57 Dose: 50 mg Morphine Sulfate (Morphine Sulfate) 2 mg IVPUSH Q4H PRN PRN Reason: PAIN SCALE 5-10 Last Admin: 05/03/18 12:16 Dose: 2 mg Multivitamins/Minerals/Vitamin C (Tab-A-Vit -) 1 tab PO DAILY [facility] Last Admin: 05/03/18 10:10 Dose: 1 tab Nicotine (Nicoderm Patch -) 7 mg TD DAILY [facility] Last Admin: 06/06/18 09:52 Dose: 7 mg Polyethylene Glycol (Miralax (For Daily Use) -) 17 gm PO BID [facility] Last Admin: 05/03/18 10:12 Dose: 17 gm Tamsulosin HCl (Flomax -) 0.4 mg PO DAILY@0830 [facility] Last Admin: 05/03/18 10:10 Dose: 0.4 mg Thiamine HCl (Vitamin B1 -) 100 mg PO DAILY [facility] Last Admin: 05/03/18 10:10 Dose: 100 mg Tramadol HCl (Ultram -) 50 mg PO Q6H PRN PRN Reason: PAIN LEVEL 4 - 6 Last Admin: 05/02/18 21:57 Dose: 50 mg Triamcinolone Acetonide (Aristocort 0.5% Ointment -) 1 applic TP BID [facility] Last Admin: 05/03/18 10:12 Dose: 1 applic - Objective Vital Signs: Vital Signs Temperature 99.5 F 05/03/18 07:31 Pulse Rate 78 05/03/18 07:31 Respiratory Rate 20 05/03/18 07:31 Blood Pressure 139/70 05/03/18 07:31 O2 Sat by Pulse Oximetry (%) 96 05/02/18 21:00 Constitutional: Yes: Well Nourished, No Distress, Calm Eyes: Yes: Conjunctiva Clear HENT: Yes: Atraumatic Neck: Yes: Supple Cardiovascular: Yes: Regular Rate and Rhythm Respiratory: Yes: Regular Gastrointestinal: Yes: Normal Bowel Sounds, Soft. No: Ascites, Distention, Tenderness, Tenderness, Epigastrium, Vomiting Labs: CBC, BMP 05/03/18 06:20 05/03/18 06:20 INR, PTT INR 1.06 (0.82-1.09) 04/30/18 13:30 Laboratory Last Values WBC 3.3 K/mm3 (4.0-10.0) L 05/03/18 06:20 RBC 2.74 M/mm3 (4.00-5.60) L 05/03/18 06:20 Hgb 8.0 GM/dL (11.7-16.9) L D 05/03/18 06:20 Hct 23.3 % (35.4-49) L 05/03/18 06:20 MCV 85.1 fl (80-96) 05/03/18 06:20 MCH 29.1 pg (25.7-33.7) 05/03/18 06:20 MCHC 34.1 g/dl (32.0-35.9) 05/03/18 06:20 RDW 15.1 % (11.9-15.9) 05/03/18 06:20 Plt Count 69 K/MM3 (134-434) L 05/03/18 06:20 MPV 10.5 fl (7.5-11.1) 05/03/18 06:20 Absolute Neuts (auto) 2.2 # 05/03/18 06:20 Neutrophils % 66.1 % (42.8-82.8) D 05/03/18 06:20 Lymphocytes % 17.7 % (8-40) D 05/03/18 06:20 Monocytes % 7.5 % (3.8-10.2) 05/03/18 06:20 Eosinophils % 8.0 % (0-4.5) H 05/03/18 06:20 Basophils % 0.7 % (0-2.0) 05/03/18 06:20 Nucleated RBC % 0 % (0-0) 05/03/18 06:20 Retic Count 2.43 % (0.5-1.5) H 05/02/18 06:00 PT with INR 12.00 SEC (9.7-13.0) 04/30/18 13:30 INR 1.06 (0.82-1.09) 04/30/18 13:30 Sodium 141 mmol/L (136-145) 05/03/18 06:20 Potassium 5.2 mmol/L (3.5-5.1) H 05/03/18 06:20 Chloride 117 mmol/L (98-107) H 05/03/18 06:20 Carbon Dioxide 14 mmol/L (21-32) L 05/03/18 06:20 Anion Gap 10 (8-16) 05/03/18 06:20 BUN 48 mg/dL (7-18) H 05/03/18 06:20 Creatinine 2.1 mg/dL (0.7-1.3) H 05/03/18 06:20 Creat Clearance w eGFR 34.32 (>60) 05/03/18 06:20 Random Glucose 86 mg/dL (74-106) 06/07/18 06:20 Calcium 7.5 mg/dL (8.5-10.1) L 05/03/18 06:20 Iron 22 ug/dL (38-169) L 05/02/18 06:00 TIBC 207 ug/dL (250-450) L 05/02/18 06:00 Iron Saturation 11 % (15-55) L 05/02/18 06:00 Ferritin 31.2 ng/ml (16.4-293.9) 05/02/18 06:00 Total Bilirubin 0.5 mg/dL (0.2-1.0) D 05/03/18 06:20 AST 26 U/L (15-37) 05/03/18 06:20 ALT 17 U/L (12-78) 05/03/18 06:20 Alkaline Phosphatase 113 U/L (45-117) 05/03/18 06:20 LD Total 252 U/L (87-241) H 05/02/18 06:00 Creatine Kinase 276 IU/L (39-308) 04/30/18 13:30 Creatine Kinase Index 1.2 % (0.0-5.0) 04/30/18 13:30 CK-MB (CK-2) 3.35 ng/mL (0.5-3.6) 04/30/18 13:30 Troponin I < 0.02 ng/ml (0.00-0.05) 04/30/18 13:30 B-Natriuretic Peptide 881.06 pg/ml (5-125) H 04/30/18 13:30 Total Protein 4.9 g/dl (6.4-8.2) L 05/03/18 06:20 Albumin 1.7 g/dl (3.4-5.0) L 05/03/18 06:20 Total Amylase Cancelled 05/02/18 08:30 Lipase Cancelled 05/02/18 08:30 Vitamin B12 673 pg/ml (180-914) D 05/02/18 06:00 Serum Folate 20 ng/ml (3.1-17.5) H 05/02/18 06:00 Urine Color Straw 05/02/18 20:20 Urine Appearance Clear 05/02/18 20:20 Urine pH 5.0 (5.0-8.0) 05/02/18 20:20 Ur Specific [place] 1.009 (1.001-1.035) 05/02/18 20:20 Urine Protein 2+ (NEGATIVE) H 05/02/18 20:20 Urine Glucose (UA) 1+ (NEGATIVE) H 05/02/18 20:20 Urine Ketones Negative (NEGATIVE) 05/02/18 20:20 Urine Blood 1+ (NEGATIVE) H 05/02/18 20:20 Urine Nitrite Negative (NEGATIVE) 05/02/18 20:20 Urine Bilirubin Negative (<2.0 mg/dL) 05/02/18 20:20 Urine Urobilinogen Negative mg/dL (0.2-1.0) 05/02/18 20:20 Ur Leukocyte Esterase Negative (NEGATIVE) 05/02/18 20:20 Urine WBC (Auto) 1 /hpf (3-5) 05/02/18 20:20 Urine RBC (Auto) 6 /hpf (0-3) 05/02/18 20:20 Ur Epithelial Cells Rare /HPF (FEW) 04/30/18 14:30 Hyaline Casts 9 /lpf 04/30/18 14:30 Granular Casts 3 /lpf 04/30/18 14:30 Urine Mucus Rare 05/02/18 20:20 Blood Type B POSITIVE 05/02/18 14:20 Antibody Screen Negative 05/02/18 14:20 Crossmatch See Detail 05/02/18 14:20 Problem List - Problems (1) Liver cirrhosis Code(s): K74.60 - UNSPECIFIED CIRRHOSIS OF LIVER (2) Hyperkalemia Code(s): E87.5 - HYPERKALEMIA (3) Alcohol dependence in controlled environment Code(s): F10.20 - ALCOHOL DEPENDENCE, UNCOMPLICATED (4) Alcohol dependence with uncomplicated withdrawal Code(s): F10.230 - ALCOHOL DEPENDENCE WITH WITHDRAWAL, UNCOMPLICATED Assessment/Plan Doppler US. Continue current care. Lactulose BID. Will follow.
[2018-05-03] MEDS: BENZOCAINE/MENTH/CETYLPYRD CL 1 EACH LOZENGE MM PRN ×2 (14:15→20:31)
--- NOTE | 2018-05-03 15:38 | PN ---
Progress Note, Physician History of Present Illness: Pt seen and examined at bedside. He is awake and alert. He complains of lower ext edema. - Current Medication List Current Medications: Active Medications Albuterol/Ipratropium (Duoneb -) 1 amp NEB RQID [facility] Last Admin: 05/03/18 07:35 Dose: 1 amp Amino Acids (Prosource No Carb Liquid Pkt) 30 ml PO BID@0800,1730 [facility] Last Admin: 05/03/18 10:09 Dose: 30 ml Amlodipine Besylate (Norvasc -) 10 mg PO DAILY [facility] Last Admin: 05/03/18 10:10 Dose: 10 mg Benzocaine/Menthol (Cepacol Lozenge -) 1 each MM PRN PRN PRN Reason: SORE THROAT Last Admin: 05/03/18 14:15 Dose: 1 each Clonidine (Catapres -) 0.1 mg PO BID [facility] Last Admin: 05/03/18 10:11 Dose: 0.1 mg Ferrous Sulfate (Feosol -) 325 mg PO DAILY [facility] Last Admin: 05/03/18 10:10 Dose: 325 mg Folic Acid (Folic Acid -) 1 mg PO DAILY [facility] Last Admin: 05/03/18 10:10 Dose: 1 mg Furosemide (Lasix Injection -) 40 mg IVPUSH DAILY [facility] Last Admin: 05/03/18 10:11 Dose: 40 mg Guaifenesin (Mucinex Dm -) 1 tablet PO BID [facility] Last Admin: 05/03/18 12:00 Dose: 1 tablet Heparin Sodium (Porcine) (Heparin -) 5,000 unit SQ BID [facility] Last Admin: 05/03/18 12:15 Dose: 5,000 unit Hydroxyzine HCl (Atarax -) 50 mg PO Q6H PRN PRN Reason: FOR ITCHING Last Admin: 05/02/18 21:57 Dose: 50 mg Morphine Sulfate (Morphine Sulfate) 2 mg IVPUSH Q4H PRN PRN Reason: PAIN SCALE 5-10 Last Admin: 05/03/18 12:16 Dose: 2 mg Multivitamins/Minerals/Vitamin C (Tab-A-Vit -) 1 tab PO DAILY [facility] Last Admin: 05/03/18 10:10 Dose: 1 tab Nicotine (Nicoderm Patch -) 7 mg TD DAILY [facility] Last Admin: 06/06/18 09:52 Dose: 7 mg Polyethylene Glycol (Miralax (For Daily Use) -) 17 gm PO BID [facility] Last Admin: 05/03/18 10:12 Dose: 17 gm Tamsulosin HCl (Flomax -) 0.4 mg PO DAILY@0830 [facility] Last Admin: 05/03/18 10:10 Dose: 0.4 mg Thiamine HCl (Vitamin B1 -) 100 mg PO DAILY [facility] Last Admin: 05/03/18 10:10 Dose: 100 mg Tramadol HCl (Ultram -) 50 mg PO Q6H PRN PRN Reason: PAIN LEVEL 4 - 6 Last Admin: 05/02/18 21:57 Dose: 50 mg Triamcinolone Acetonide (Aristocort 0.5% Ointment -) 1 applic TP BID [facility] Last Admin: 05/03/18 10:12 Dose: 1 applic - Objective Vital Signs: Vital Signs Temperature 98.2 F 05/03/18 13:53 Pulse Rate 82 05/03/18 13:53 Respiratory Rate 18 05/03/18 13:53 Blood Pressure 116/78 05/03/18 13:53 O2 Sat by Pulse Oximetry (%) 96 05/02/18 21:00 Constitutional: Yes: Calm Eyes: Yes: Conjunctiva Clear HENT: Yes: Atraumatic Neck: Yes: Supple Cardiovascular: Yes: S1, S2 Respiratory: Yes: Rhonchi Gastrointestinal: Yes: Soft, Ascites Genitourinary: Yes: WNL Musculoskeletal: Yes: WNL Edema: Yes Edema: LLE: 2+, RLE: 2+ Neurological: Yes: Oriented Psychiatric: Yes: Oriented Labs: CBC, BMP 05/03/18 06:20 05/03/18 06:20 INR, PTT INR 1.06 (0.82-1.09) 04/30/18 13:30 Problem List - Problems (1) CKD (chronic kidney disease) Code(s): N18.9 - CHRONIC KIDNEY DISEASE, UNSPECIFIED (2) Hyperkalemia Code(s): E87.5 - HYPERKALEMIA (3) Liver cirrhosis Code(s): K74.60 - UNSPECIFIED CIRRHOSIS OF LIVER (4) Volume overload Code(s): E87.70 - FLUID OVERLOAD, UNSPECIFIED Qualifiers: Hypervolemia type: other Qualified Code(s): E87.79 - Other fluid overload Assessment/Plan Current Medications Generic Name Dose Route Start Last Admin Trade Name Koleq PRN Reason Stop Dose Admin Albuterol/Ipratropium 1 amp 05/01/18 12:00 05/03/18 07:35 Duoneb - NEB 1 amp RQID DEV Administration Amino Acids 30 ml 05/01/18 17:30 05/03/18 10:09 Prosource No Carb Liquid Pkt PO 30 ml BID@0800,1730 DEV Administration Amlodipine Besylate 10 mg 05/01/18 11:00 05/03/18 10:10 Norvasc - PO 10 mg DAILY DEV Administration Benzocaine/Menthol 1 each 05/03/18 10:43 05/03/18 14:15 Cepacol Lozenge - MM 1 each PRN PRN Administration SORE THROAT Clonidine 0.1 mg 05/01/18 22:00 05/03/18 10:11 Catapres - PO 0.1 mg BID DEV Administration Ferrous Sulfate 325 mg 05/01/18 11:00 05/03/18 10:10 Feosol - PO 325 mg DAILY DEV Administration Folic Acid 1 mg 05/01/18 11:00 05/03/18 10:10 Folic Acid - PO 1 mg DAILY DEV Administration Furosemide 40 mg 05/01/18 11:15 05/03/18 10:11 Lasix Injection - IVPUSH 40 mg DAILY DEV Administration Guaifenesin 1 tablet 05/03/18 10:45 05/03/18 12:00 Mucinex Dm - PO 1 tablet BID DEV Administration Heparin Sodium (Porcine) 5,000 unit 05/03/18 10:45 05/03/18 12:15 Heparin - SQ 5,000 unit BID DEV Administration Hydroxyzine HCl 50 mg 05/01/18 11:03 05/02/18 21:57 Atarax - PO 50 mg Q6H PRN Administration FOR ITCHING Morphine Sulfate 2 mg 04/30/18 22:30 05/03/18 12:16 Morphine Sulfate IVPUSH 2 mg Q4H PRN Administration PAIN SCALE 5-10 Multivitamins/Minerals/Vitamin C 1 tab 05/01/18 11:00 05/03/18 10:10 Tab-A-Vit - PO 1 tab DAILY DEV Administration Nicotine 7 mg 05/01/18 11:15 05/02/18 09:52 Nicoderm Patch - TD 7 mg DAILY DEV Administration Polyethylene Glycol 17 gm 05/02/18 23:15 05/03/18 10:12 Miralax (For Daily Use) - PO 17 gm BID DEV Administration Tamsulosin HCl 0.4 mg 05/01/18 11:22 05/03/18 10:10 Flomax - PO 0.4 mg DAILY@0830 [facility] Administration Thiamine HCl 100 mg 05/01/18 11:00 05/03/18 10:10 Vitamin B1 - PO 100 mg DAILY DEV Administration Tramadol HCl 50 mg 05/01/18 11:02 05/02/18 21:57 Ultram - PO 50 mg Q6H PRN Administration PAIN LEVEL 4 - 6 Triamcinolone Acetonide 1 applic 05/01/18 11:15 05/03/18 10:12 Aristocort 0.5% Ointment - TP 1 applic BID DEV Administration Impression 1. GRABIEL 2. etoh abuse 3. depression 4. anxiety 5. hx suicide attempts 6. obesity 7. HLD 8. liver cirrhosis 9. hyperkalemia 10. fluid overload 11. proteinuria 12. CKD Plan - cont with diuretics, will increase dose - albumin trial - low potassium diet - cont lactulose - spironolactone on hold until potassium stable - repeat ua - will need renal workup after discharge Dr Sparks
[2018-05-03] MEDS ORDERED: FUROSEMIDE 40 MG/4 ML INJECTABLE VIAL IVPUSH ONE (15:39)
[2018-05-03] MEDS: NICOTINE 7 MG/24 HOURS TOPICAL PATCH TD SCH (16:26)
[2018-05-03 19:15] LABS: GLUCOSE,PLEURAL FLUID 126.381; TOTAL PROTEIN,PLEURAL FLUID 0.585
[2018-05-03 19:17] LABS: PLEURAL FLUID RBC 744 /mm3
[2018-05-03 19:18] LABS: PLEURAL FLUID APPEARANCE CLOUDY; PLEURAL FLUID COLOR COLORLESS
[2018-05-03] MEDS: ALBUMIN HUMAN 25% 12.5 GM/50 ML VIAL IVPB SCH (19:35)
[2018-05-03 21:18] LABS: PLEURAL FLUID LYMPHOCYTES 14 %; PLEURAL FLUID MACROPHAGES 61 %; PLEURAL FLUID MESOTHELIAL 5 %; PLEURAL FLUID MONOCYTE 2 %; PLEURAL FLUID NEUTROPHIL 20 %
[2018-05-03] MEDS: hydrOXYzine HCL 25 MG TABLET (FP) PO PRN (22:02)
[2018-05-04] MEDS: FUROSEMIDE 40 MG/4 ML INJECTABLE VIAL IVPUSH SCH ×2 (05:56→13:45)
[2018-05-04] MEDS: traMADol HCL 50 MG TABLET PO PRN (06:02)
[2018-05-04] MEDS: BENZOCAINE/MENTH/CETYLPYRD CL 1 EACH LOZENGE MM PRN ×2 (06:03→22:22)
[2018-05-04 07:28] LABS: BASO % 0.8 % (0-2.0); EOS % 10.4 % (0-4.5); HEMATOCRIT 22.5 % (35.4-49); HEMOGLOBIN 7.7 GM/dL (11.7-16.9); LYMPH % 20.3 % (8-40); MCHC 34.1 g/dl (32.0-35.9); MEAN CELL VOLUME 85.1 fl (80-96); MEAN PLT VOLUME 11.1 fl (7.5-11.1); MONO % 7.4 % (3.8-10.2); NEUT % 61.1 % (42.8-82.8); PLATELET COUNT 73 K/MM3 (134-434); RBC 2.65 M/mm3 (4.00-5.60); RDW 15.6 % (11.9-15.9); WHITE BLOOD COUNT 3.4 K/mm3 (4.0-10.0)
[2018-05-04] MEDS: ALBUTEROL SO4 2.5/IPRATROPIUM 0.5 INH SOL 3 ML VIAL.NEB. NEB SCH ×4 (07:35→21:00)
[2018-05-04 08:10] LABS: ALBUMIN 2.1 g/dl (3.4-5.0); CALCIUM 7.7 mg/dL (8.5-10.1); CHLORIDE 116 mmol/L (98-107); POTASSIUM 5.3 mmol/L (3.5-5.1); SODIUM 140 mmol/L (136-145)
[2018-05-04 08:13] LABS: ALK PHOS 101 U/L (45-117); ANION GAP 8 (8-16); BILIRUBIN,TOTAL 0.4 mg/dL (0.2-1.0); BLOOD UREA NITROGEN 52 mg/dL (7-18); CO2 16 mmol/L (21-32); CREATININE 2.2 mg/dL (0.7-1.3); GLUCOSE,RANDOM 82 mg/dL (74-106); SGOT/AST 26 U/L (15-37); SGPT/ALT 17 U/L (12-78); TOT PROT 5.2 g/dl (6.4-8.2)
[2018-05-04] MEDS: TAMSULOSIN HCL 0.4 MG CAP.ER.24H (FP) PO SCH (08:26)
[2018-05-04] MEDS: AMINO ACIDS/PROTEIN HYDROLYS 30 ML LIQUID.PKT PO SCH ×2 (08:26→17:10)
[2018-05-04] MEDS ORDERED: PT OWN MED DRAWER 7, Y5N ONE (10:14)
[2018-05-04] MEDS: FOLIC ACID 1 MG TABLET (FP) PO SCH (10:22)
[2018-05-04] MEDS: FERROUS SO4 325 MG TABLET (FP) PO SCH (10:22)
[2018-05-04] MEDS: cloNIDine HCL 0.1 MG TABLET PO SCH ×2 (10:22→22:12)
--- NOTE | 2018-05-04 10:23 | PN ---
Progress Note (short form) - Note Progress Note: PULMONARY VSS/AFEBRILE AWAKE/ALERT NO SOB ANICTERIC DIMINISHED BREATH SOUNDS AND DULLNESS TO PERCUSSION RIGHT BASE S1S2 BS+ ASCITES PRESENT LESS EDEMA LABS/MEDS/NOTES/IMAGES REVIEWED Pleural Effusion c/w Hepatic Hydrothorax Liver Cirrhosis s/p TIPS Thrombocytopenia CKD HTN DM Hypercholesterolemia - continue lasix - keep net negative - Renal follow up - DVT prophyl Papo CYR MD
[2018-05-04] MEDS: POLYETHYLENE GLYCOL 3350 119 GM BTL PO SCH ×2 (10:25→22:13)
[2018-05-04] MEDS: guaiFENesin/D-METHORPHAN HB 1 EACH TAB.ER.12H PO SCH ×2 (10:26→22:12)
[2018-05-04] MEDS: MULTIVITAMINS (DAILY MVI) TABLET (FP) PO SCH (10:26)
[2018-05-04] MEDS: amLODIPine BESYLATE 10 MG TABLET (FP) PO SCH (10:26)
[2018-05-04] MEDS: THIAMINE HCL 100 MG TABLET (FP) PO SCH (10:27)
[2018-05-04] MEDS: ALBUMIN HUMAN 25% 12.5 GM/50 ML VIAL IVPB SCH (10:27)
[2018-05-04] MEDS: HEPARIN NA (PORCINE) 5,000 UNITS/ML 1ML VIAL SQ SCH ×2 (10:28→22:13)
[2018-05-04] MEDS: NICOTINE 7 MG/24 HOURS TOPICAL PATCH TD SCH (10:30)
[2018-05-04] MEDS: TRIAMCINOLONE ACET 0.5% OINT 15 GM TUBE TP SCH ×2 (10:31→22:11)
[2018-05-04] MEDS ORDERED: ACETAMINOPHEN 325 MG TABLET (FP) PO PRN (11:06)
[2018-05-04] MEDS ORDERED: IRON SUCROSE INJECTION 300 MG in SODIUM CHLORIDE 235 ML IVPB ONE (11:17)
--- NOTE | 2018-05-04 11:18 | PN ---
Progress Note, Physician Chief Complaint: SOB Pleural Effusion Liver cirrhosis History of Present Illness: NAD self ambulatory H/H mild drop Seen by Nephrology, spironolactone on hold for hyperkalemia Seen by Cardiology, no cardiac intervention suggested at this time Had thoracentecis yesterday, feels better potassium still elevated - Current Medication List Current Medications: Active Medications Acetaminophen (Tylenol -) 650 mg PO Q6H PRN PRN Reason: PAIN LEVEL 1 - 3 Albumin Human (Albumin Human 25%) 25 gm IVPB DAILY [facility] Stop: 05/06/18 10:01 Last Admin: 05/04/18 10:27 Dose: 25 gm Albuterol/Ipratropium (Duoneb -) 1 amp NEB RQID [facility] Last Admin: 05/04/18 07:35 Dose: 1 amp Amino Acids (Prosource No Carb Liquid Pkt) 30 ml PO BID@0800,1730 [facility] Last Admin: 05/04/18 08:26 Dose: 30 ml Amlodipine Besylate (Norvasc -) 10 mg PO DAILY [facility] Last Admin: 05/04/18 10:26 Dose: 10 mg Benzocaine/Menthol (Cepacol Lozenge -) 1 each MM PRN PRN PRN Reason: SORE THROAT Last Admin: 05/04/18 06:03 Dose: 1 each Clonidine (Catapres -) 0.1 mg PO BID [facility] Last Admin: 05/04/18 10:22 Dose: 0.1 mg Ferrous Sulfate (Feosol -) 325 mg PO DAILY [facility] Last Admin: 05/04/18 10:22 Dose: 325 mg Folic Acid (Folic Acid -) 1 mg PO DAILY [facility] Last Admin: 05/04/18 10:22 Dose: 1 mg Furosemide (Lasix Injection -) 40 mg IVPUSH BID@0600,1400 [facility] Last Admin: 05/04/18 05:56 Dose: 40 mg Guaifenesin (Mucinex Dm -) 1 tablet PO BID [facility] Last Admin: 05/04/18 10:26 Dose: 1 tablet Heparin Sodium (Porcine) (Heparin -) 5,000 unit SQ BID [facility] Last Admin: 05/04/18 10:28 Dose: 5,000 unit Hydroxyzine HCl (Atarax -) 50 mg PO Q6H PRN PRN Reason: FOR ITCHING Last Admin: 05/03/18 22:02 Dose: 50 mg Lactulose (Cephulac (Oral Use)) 20 gm PO BID [facility] Multivitamins/Minerals/Vitamin C (Tab-A-Vit -) 1 tab PO DAILY [facility] Last Admin: 05/04/18 10:26 Dose: 1 tab Nicotine (Nicoderm Patch -) 7 mg TD DAILY [facility] Last Admin: 05/04/18 10:30 Dose: 7 mg Oxycodone HCl (Roxicodone -) 5 mg PO Q4H PRN PRN Reason: PAIN LEVEL 7 - 10 Polyethylene Glycol (Miralax (For Daily Use) -) 17 gm PO BID [facility] Last Admin: 05/04/18 10:25 Dose: 17 gm Tamsulosin HCl (Flomax -) 0.4 mg PO DAILY@0830 [facility] Last Admin: 05/04/18 08:26 Dose: 0.4 mg Thiamine HCl (Vitamin B1 -) 100 mg PO DAILY [facility] Last Admin: 05/04/18 10:27 Dose: 100 mg Tramadol HCl (Ultram -) 50 mg PO Q6H PRN PRN Reason: PAIN LEVEL 4 - 6 Triamcinolone Acetonide (Aristocort 0.5% Ointment -) 1 applic TP BID [facility] Last Admin: 05/04/18 10:31 Dose: 1 applic - Objective Vital Signs: Vital Signs Temperature 98.1 F 05/04/18 07:34 Pulse Rate 78 05/04/18 07:34 Respiratory Rate 20 05/04/18 07:34 Blood Pressure 132/76 05/04/18 07:34 O2 Sat by Pulse Oximetry (%) 100 05/03/18 21:00 Constitutional: Yes: Well Nourished, No Distress, Calm Cardiovascular: Yes: Regular Rate and Rhythm Respiratory: Yes: Regular, Diminished (RLL) Gastrointestinal: Yes: Normal Bowel Sounds, Soft, Ascites Musculoskeletal: Yes: WNL Extremities: Yes: WNL Edema: Yes Edema: LLE: 2+, RLE: 2+ Peripheral Pulses WNL: Yes Neurological: Yes: Alert, Oriented Psychiatric: Yes: Alert, Oriented Labs: CBC, BMP 05/04/18 06:10 05/04/18 06:10 INR, PTT INR 1.06 (0.82-1.09) 04/30/18 13:30 Problem List - Problems (1) Anemia Assessment/Plan: -hematology consult -labs: B12, folate, thyroid profile- okay, iron sat low -Venofer 300 mg IVPB once -stool OB pending -Transfuse if Hgb below 7.0 Code(s): D64.9 - ANEMIA, UNSPECIFIED (2) Hyperkalemia Assessment/Plan: -nephrology consult -monitor trend -low potassium diet Code(s): E87.5 - HYPERKALEMIA (3) Liver cirrhosis Assessment/Plan: -GI consult -monitor labs Code(s): K74.60 - UNSPECIFIED CIRRHOSIS OF LIVER (4) Acute kidney injury Assessment/Plan: -nephrology consult Code(s): N17.9 - ACUTE KIDNEY FAILURE, UNSPECIFIED (5) Alcoholic hepatitis Code(s): K70.10 - ALCOHOLIC HEPATITIS WITHOUT ASCITES (6) Pleural effusion Assessment/Plan: -thoracentesis yesterday -repeat CXR in AM Code(s): J90 - PLEURAL EFFUSION, NOT ELSEWHERE CLASSIFIED (7) Volume overload Assessment/Plan: 2/2 to third spacing due to liver cirrhosis -lasix 40 mg IVP daily -low sodium diet -hold spironolactone until K+ improves Code(s): E87.70 - FLUID OVERLOAD, UNSPECIFIED Qualifiers: Hypervolemia type: other Qualified Code(s): E87.79 - Other fluid overload Assessment/Plan see problem list DVT prophylaxis
[2018-05-04] MEDS: LACTULOSE 20 GM/30 ML UDC (FOR ORAL USE ONLY) PO SCH ×2 (12:19→22:13)
--- NOTE | 2018-05-04 13:50 | PN ---
Progress Note, Physician History of Present Illness: Clinically the same. - Current Medication List Current Medications: Active Medications Acetaminophen (Tylenol -) 650 mg PO Q6H PRN PRN Reason: PAIN LEVEL 1 - 3 Albumin Human (Albumin Human 25%) 25 gm IVPB DAILY ON [facility] OF [facility] Stop: 05/06/18 10:01 Last Admin: 05/04/18 10:27 Dose: 25 gm Albuterol/Ipratropium (Duoneb -) 1 amp NEB RQID ON [facility] Last Admin: 05/04/18 11:25 Dose: 1 amp Amino Acids (Prosource No Carb Liquid Pkt) 30 ml PO BID@0800,1730 [facility] Last Admin: 05/04/18 08:26 Dose: 30 ml Amlodipine Besylate (Norvasc -) 10 mg PO DAILY [facility] Last Admin: 05/04/18 10:26 Dose: 10 mg Benzocaine/Menthol (Cepacol Lozenge -) 1 each MM PRN PRN PRN Reason: SORE THROAT Last Admin: 05/04/18 06:03 Dose: 1 each Clonidine (Catapres -) 0.1 mg PO BID [facility] Last Admin: 05/04/18 10:22 Dose: 0.1 mg Ferrous Sulfate (Feosol -) 325 mg PO DAILY [facility] Last Admin: 05/04/18 10:22 Dose: 325 mg Folic Acid (Folic Acid -) 1 mg PO DAILY [facility] Last Admin: 05/04/18 10:22 Dose: 1 mg Furosemide (Lasix Injection -) 40 mg IVPUSH BID@0600,1400 [facility] Last Admin: 05/04/18 13:45 Dose: 40 mg Guaifenesin (Mucinex Dm -) 1 tablet PO BID [facility] Last Admin: 05/04/18 10:26 Dose: 1 tablet Heparin Sodium (Porcine) (Heparin -) 5,000 unit SQ BID [facility] Last Admin: 05/04/18 10:28 Dose: 5,000 unit Hydroxyzine HCl (Atarax -) 50 mg PO Q6H PRN PRN Reason: FOR ITCHING Last Admin: 05/03/18 22:02 Dose: 50 mg Lactulose (Cephulac (Oral Use)) 20 gm PO BID [facility] Last Admin: 05/04/18 12:19 Dose: 20 gm Multivitamins/Minerals/Vitamin C (Tab-A-Vit -) 1 tab PO DAILY [facility] Last Admin: 05/04/18 10:26 Dose: 1 tab Nicotine (Nicoderm Patch -) 7 mg TD DAILY [facility] Last Admin: 05/04/18 10:30 Dose: 7 mg Oxycodone HCl (Roxicodone -) 5 mg PO Q4H PRN PRN Reason: PAIN LEVEL 7 - 10 Polyethylene Glycol (Miralax (For Daily Use) -) 17 gm PO BID [facility] Last Admin: 05/04/18 10:25 Dose: 17 gm Tamsulosin HCl (Flomax -) 0.4 mg PO DAILY@30 [facility] Last Admin: 05/04/18 08:26 Dose: 0.4 mg Thiamine HCl (Vitamin B1 -) 100 mg PO DAILY [facility] Last Admin: 05/04/18 10:27 Dose: 100 mg Tramadol HCl (Ultram -) 50 mg PO Q6H PRN PRN Reason: PAIN LEVEL 4 - 6 Triamcinolone Acetonide (Aristocort 0.5% Ointment -) 1 applic TP BID ON [facility] Last Admin: 05/04/18 10:31 Dose: 1 applic - Objective Vital Signs: Vital Signs Temperature 98.3 F 05/04/18 07:40 Pulse Rate 73 05/04/18 07:40 Respiratory Rate 20 05/04/18 07:40 Blood Pressure 150/78 05/04/18 07:40 O2 Sat by Pulse Oximetry (%) 100 05/03/18 21:00 Constitutional: Yes: No Distress, Calm Eyes: Yes: Conjunctiva Clear. No: Sclera Icterus Neck: Yes: Supple Cardiovascular: Yes: Regular Rate and Rhythm Respiratory: Yes: Regular Gastrointestinal: Yes: Normal Bowel Sounds, Soft. No: Rectal Bleeding, Tenderness, Tenderness, Rebound, Vomiting Neurological: Yes: Alert, Oriented. No: Asterixis, Confusion, Lethargy Labs: CBC, BMP 05/04/18 06:10 05/04/18 06:10 INR, PTT INR 1.06 (0.82-1.09) 04/30/18 13:30 Laboratory Last Values WBC 3.4 K/mm3 (4.0-10.0) L 05/04/18 06:10 RBC 2.65 M/mm3 (4.00-5.60) L 05/04/18 06:10 Hgb 7.7 GM/dL (11.7-16.9) L 05/04/18 06:10 Hct 22.5 % (35.4-49) L 05/04/18 06:10 MCV 85.1 fl (80-96) 05/04/18 06:10 MCH 29.0 pg (25.7-33.7) 05/04/18 06:10 MCHC 34.1 g/dl (32.0-35.9) 05/04/18 06:10 RDW 15.6 % (11.9-15.9) 05/04/18 06:10 Plt Count 73 K/MM3 (134-434) L 05/04/18 06:10 MPV 11.1 fl (7.5-11.1) 05/04/18 06:10 Absolute Neuts (auto) 2.1 # 05/04/18 06:10 Neutrophils % 61.1 % (42.8-82.8) 05/04/18 06:10 Lymphocytes % 20.3 % (8-40) 05/04/18 06:10 Monocytes % 7.4 % (3.8-10.2) 05/04/18 06:10 Eosinophils % 10.4 % (0-4.5) H 05/04/18 06:10 Basophils % 0.8 % (0-2.0) 05/04/18 06:10 Nucleated RBC % 0 % (0-0) 05/04/18 06:10 Retic Count 2.43 % (0.5-1.5) H 05/02/18 06:00 PT with INR 12.00 SEC (9.7-13.0) 04/30/18 13:30 INR 1.06 (0.82-1.09) 04/30/18 13:30 Sodium 140 mmol/L (136-145) 05/04/18 06:10 Potassium 5.3 mmol/L (3.5-5.1) H 05/04/18 06:10 Chloride 116 mmol/L (98-107) H 05/04/18 06:10 Carbon Dioxide 16 mmol/L (21-32) L 05/04/18 06:10 Anion Gap 8 (8-16) 05/04/18 06:10 BUN 52 mg/dL (7-18) H 05/04/18 06:10 Creatinine 2.2 mg/dL (0.7-1.3) H 05/04/18 06:10 Creat Clearance w eGFR 32.53 (>60) 05/04/18 06:10 Random Glucose 82 mg/dL (74-106) 05/04/18 06:10 Calcium 7.7 mg/dL (8.5-10.1) L 05/04/18 06:10 Iron 22 ug/dL (38-169) L 05/02/18 06:00 TIBC 207 ug/dL (250-450) L 05/02/18 06:00 Iron Saturation 11 % (15-55) L 05/02/18 06:00 Ferritin 31.2 ng/ml (16.4-293.9) 05/02/18 06:00 Total Bilirubin 0.4 mg/dL (0.2-1.0) 05/04/18 06:10 AST 26 U/L (15-37) 05/04/18 06:10 ALT 17 U/L (12-78) 05/04/18 06:10 Alkaline Phosphatase 101 U/L (45-117) 05/04/18 06:10 LD Total 252 U/L (87-241) H 05/02/18 06:00 Creatine Kinase 276 IU/L (39-308) 04/30/18 13:30 Creatine Kinase Index 1.2 % (0.0-5.0) 04/30/18 13:30 CK-MB (CK-2) 3.35 ng/mL (0.5-3.6) 04/30/18 13:30 Troponin I < 0.02 ng/ml (0.00-0.05) 04/30/18 13:30 B-Natriuretic Peptide 881.06 pg/ml (5-125) H 04/30/18 13:30 Total Protein 5.2 g/dl (6.4-8.2) L 05/04/18 06:10 Albumin 2.1 g/dl (3.4-5.0) L D 05/04/18 06:10 Beta Globulins 1.1 g/dL (0.7-1.3) 05/02/18 06:00 Triglycerides Cancelled 05/03/18 17:30 Total Amylase Cancelled 05/02/18 08:30 Lipase Cancelled 05/02/18 08:30 Vitamin B12 673 pg/ml (180-914) D 05/02/18 06:00 Serum Folate 20 ng/ml (3.1-17.5) H 05/02/18 06:00 Urine Color Straw 05/02/18 20:20 Urine Appearance Clear 05/02/18 20:20 Urine pH 5.0 (5.0-8.0) 05/02/18 20:20 Ur Specific Edison 1.009 (1.001-1.035) 05/02/18 20:20 Urine Protein 2+ (NEGATIVE) H 05/02/18 20:20 Urine Glucose (UA) 1+ (NEGATIVE) H 05/02/18 20:20 Urine Ketones Negative (NEGATIVE) 05/02/18 20:20 Urine Blood 1+ (NEGATIVE) H 05/02/18 20:20 Urine Nitrite Negative (NEGATIVE) 05/02/18 20:20 Urine Bilirubin Negative (<2.0 mg/dL) 05/02/18 20:20 Urine Urobilinogen Negative mg/dL (0.2-1.0) 05/02/18 20:20 Ur Leukocyte Esterase Negative (NEGATIVE) 05/02/18 20:20 Urine WBC (Auto) 1 /hpf (3-5) 05/02/18 20:20 Urine RBC (Auto) 6 /hpf (0-3) 05/02/18 20:20 Ur Epithelial Cells Rare /HPF (FEW) 04/30/18 14:30 Hyaline Casts 9 /lpf 04/30/18 14:30 Granular Casts 3 /lpf 04/30/18 14:30 Urine Mucus Rare 05/02/18 20:20 Pleural Fluid Source Pleural fluid 05/03/18 17:30 Pleural Color Colorless 05/03/18 17:30 Pleural Appearance Cloudy 05/03/18 17:30 Pleural WBC 166 /mm3 05/03/18 17:30 Pleural RBC 744 /mm3 05/03/18 17:30 Pleural Neutrophils 20 % 05/03/18 17:30 Pleural Lymphocytes 14 % 05/03/18 17:30 Pleural Monocytes 2 % 05/03/18 17:30 Pleural Macrophages 61 % 05/03/18 17:30 Pleural Mesothelial 5 % 05/03/18 17:30 Pleural Total Protein 0.585 05/03/18 17:30 Pleural Albumin 0 g/dL 05/03/18 17:30 Pleural LDH 46.018 05/03/18 17:30 Pleural Glucose 126.381 05/03/18 17:30 Pleural Amylase 23.351 05/03/18 17:30 Pleural Triglycerides 57 MG.DL 05/03/18 17:30 KRYSTYNA & SPEP Interp (.) 05/02/18 06:00 Total Protein (KRYSTYNA) 4.9 g/dL (6.0-8.5) L 05/02/18 06:00 Albumin (KRYSTYNA) 2.0 g/dL (2.9-4.4) L 05/02/18 06:00 Albumin/Globulin (KRYSTYNA) 0.7 (0.7-1.7) 05/02/18 06:00 [id number] KRYSTYNA 0.2 g/dL (0.0-0.4) 05/02/18 06:00 [id number] KRYSTYNA 0.6 g/dL (0.4-1.0) 05/02/18 06:00 Gamma Globulins (KRYSTYNA) 1.0 g/dL (0.4-1.8) 05/02/18 06:00 KRYSTYNA M-Jude Not observed g/dL (Not Observed) 05/02/18 06:00 KRYSTYNA Comments (.) 05/02/18 06:00 IEP IgG 863 mg/dL (700-1600) 05/02/18 06:00 IEP IgA 544 mg/dL (90-386) H 05/02/18 06:00 IEP IgM 83 mg/dL (20-172) 05/02/18 06:00 Blood Type B POSITIVE 05/02/18 14:20 Antibody Screen Negative 05/02/18 14:20 Crossmatch See Detail 05/02/18 14:20 Problem List - Problems (1) Liver cirrhosis Code(s): K74.60 - UNSPECIFIED CIRRHOSIS OF LIVER (2) Hyperkalemia Code(s): E87.5 - HYPERKALEMIA (3) Alcohol dependence in controlled environment Code(s): F10.20 - ALCOHOL DEPENDENCE, UNCOMPLICATED (4) Alcohol dependence with uncomplicated withdrawal Code(s): F10.230 - ALCOHOL DEPENDENCE WITH WITHDRAWAL, UNCOMPLICATED Assessment/Plan Pulmonary evaluation noted.Continue current care. Lactulose BID. Will follow.
--- NOTE | 2018-05-04 15:02 | PN ---
Progress Note (short form) - Note Progress Note: seen and examined. feels better increased diuresis Underwent paracentesis Constitutional: Yes: Well Nourished, No Distress Eyes: Yes: Conjunctiva Clear HENT: Yes: Atraumatic, Normocephalic Neck: Yes: Supple Cardiovascular: Yes: Regular Rate and Rhythm Respiratory: Yes: Regular, CTA Bilaterally Gastrointestinal: Yes: Soft, Abdomen, Obese, Ascites Edema: Yes Edema: LLE: 2+, RLE: 2+ Psychiatric: Yes: Alert, Oriented Labs: Last Vital Signs Temp Pulse Resp BP Pulse Ox 98.1 F 81 20 129/59 100 05/04/18 14:00 05/04/18 14:00 05/04/18 14:00 05/04/18 14:00 05/03/18 21:00 CBC, BMP 05/04/18 06:10 05/04/18 06:10 Current Medications Generic Name Dose Route Start Last Admin Trade Name Freq PRN Reason Stop Dose Admin Acetaminophen 650 mg 05/04/18 11:06 Tylenol - PO Q6H PRN PAIN LEVEL 1 - 3 Albumin Human 25 gm 05/03/18 15:45 05/04/18 10:27 Albumin Human 25% IVPB 05/06/18 10:01 25 gm DAILY DEV Administration Albuterol/Ipratropium 1 amp 05/01/18 12:00 05/04/18 11:25 Duoneb - NEB 1 amp RQID DEV Administration Amino Acids 30 ml 05/01/18 17:30 05/04/18 08:26 Prosource No Carb Liquid Pkt PO 30 ml BID@0800,1730 DEV Administration Amlodipine Besylate 10 mg 05/01/18 11:00 05/04/18 10:26 Norvasc - PO 10 mg DAILY DEV Administration Benzocaine/Menthol 1 each 05/03/18 10:43 05/04/18 06:03 Cepacol Lozenge - MM 1 each PRN PRN Administration SORE THROAT Clonidine 0.1 mg 05/01/18 22:00 05/04/18 10:22 Catapres - PO 0.1 mg BID DEV Administration Ferrous Sulfate 325 mg 05/01/18 11:00 05/04/18 10:22 Feosol - PO 325 mg DAILY DEV Administration Folic Acid 1 mg 05/01/18 11:00 05/04/18 10:22 Folic Acid - PO 1 mg DAILY DEV Administration Furosemide 40 mg 05/04/18 06:00 05/04/18 13:45 Lasix Injection - IVPUSH 40 mg BID@0600,1400 DEV Administration Guaifenesin 1 tablet 05/03/18 10:45 05/04/18 10:26 Mucinex Dm - PO 1 tablet BID DEV Administration Heparin Sodium (Porcine) 5,000 unit 05/03/18 10:45 05/04/18 10:28 Heparin - SQ 5,000 unit BID DEV Administration Hydroxyzine HCl 50 mg 05/01/18 11:03 05/03/18 22:02 Atarax - PO 50 mg Q6H PRN Administration FOR ITCHING Lactulose 20 gm 05/04/18 11:00 05/04/18 12:19 Cephulac (Oral Use) PO 20 gm BID DEV Administration Multivitamins/Minerals/Vitamin C 1 tab 05/01/18 11:00 05/04/18 10:26 Tab-A-Vit - PO 1 tab DAILY DEV Administration Nicotine 7 mg 05/01/18 11:15 05/04/18 10:30 Nicoderm Patch - TD 7 mg DAILY DEV Administration Oxycodone HCl 5 mg 05/04/18 11:05 Roxicodone - PO Q4H PRN PAIN LEVEL 7 - 10 Polyethylene Glycol 17 gm 05/02/18 23:15 05/04/18 10:25 Miralax (For Daily Use) - PO 17 gm BID DEV Administration Tamsulosin HCl 0.4 mg 05/01/18 11:22 05/04/18 08:26 Flomax - PO 0.4 mg DAILY@0830 DEV Administration Thiamine HCl 100 mg 05/01/18 11:00 05/04/18 10:27 Vitamin B1 - PO 100 mg DAILY DEV Administration Tramadol HCl 50 mg 05/04/18 11:07 Ultram - PO Q6H PRN PAIN LEVEL 4 - 6 Triamcinolone Acetonide 1 applic 05/01/18 11:15 05/04/18 10:31 Aristocort 0.5% Ointment - TP 1 applic BID DEV Administration Anemia/Thrombocytopenia Multifactorial , likely from Liver Cirrhosis---HRS/CKD. For Venofer Hold off on PRBCs, as vol issues for now and pt stable. GI/renal f/u noted at some point to be considered for GI procedures
[2018-05-04] MEDS ORDERED: METOLAZONE 2.5 MG TABLET (FP) PO ONE (17:34)
--- NOTE | 2018-05-04 17:34 | PN ---
Progress Note, Physician History of Present Illness: Pt seen and examined at bedside. He denies shortness of breath. He complains of lower ext edema. - Current Medication List Current Medications: Active Medications Acetaminophen (Tylenol -) 650 mg PO Q6H PRN PRN Reason: PAIN LEVEL 1 - 3 Albumin Human (Albumin Human 25%) 25 gm IVPB DAILY [facility] Stop: 05/06/18 10:01 Last Admin: 05/04/18 10:27 Dose: 25 gm Albuterol/Ipratropium (Duoneb -) 1 amp NEB RQID [facility] Last Admin: 05/04/18 15:37 Dose: 1 amp Amino Acids (Prosource No Carb Liquid Pkt) 30 ml PO BID@0800,1730 [facility] Last Admin: 05/04/18 17:10 Dose: 30 ml Amlodipine Besylate (Norvasc -) 10 mg PO DAILY [facility] Last Admin: 05/04/18 10:26 Dose: 10 mg Benzocaine/Menthol (Cepacol Lozenge -) 1 each MM PRN PRN PRN Reason: SORE THROAT Last Admin: 05/04/18 06:03 Dose: 1 each Clonidine (Catapres -) 0.1 mg PO BID [facility] Last Admin: 05/04/18 10:22 Dose: 0.1 mg Ferrous Sulfate (Feosol -) 325 mg PO DAILY [facility] Last Admin: 05/04/18 10:22 Dose: 325 mg Folic Acid (Folic Acid -) 1 mg PO DAILY [facility] Last Admin: 05/04/18 10:22 Dose: 1 mg Furosemide (Lasix Injection -) 40 mg IVPUSH BID@0600,1400 [facility] Last Admin: 05/04/18 13:45 Dose: 40 mg Guaifenesin (Mucinex Dm -) 1 tablet PO BID [facility] Last Admin: 05/04/18 10:26 Dose: 1 tablet Heparin Sodium (Porcine) (Heparin -) 5,000 unit SQ BID [facility] Last Admin: 05/04/18 10:28 Dose: 5,000 unit Hydroxyzine HCl (Atarax -) 50 mg PO Q6H PRN PRN Reason: FOR ITCHING Last Admin: 05/03/18 22:02 Dose: 50 mg Lactulose (Cephulac (Oral Use)) 20 gm PO BID [facility] Last Admin: 05/04/18 12:19 Dose: 20 gm Multivitamins/Minerals/Vitamin C (Tab-A-Vit -) 1 tab PO DAILY [facility] Last Admin: 05/04/18 10:26 Dose: 1 tab Nicotine (Nicoderm Patch -) 7 mg TD DAILY [facility] Last Admin: 05/04/18 10:30 Dose: 7 mg Oxycodone HCl (Roxicodone -) 5 mg PO Q4H PRN PRN Reason: PAIN LEVEL 7 - 10 Polyethylene Glycol (Miralax (For Daily Use) -) 17 gm PO BID [facility] Last Admin: 05/04/18 10:25 Dose: 17 gm Tamsulosin HCl (Flomax -) 0.4 mg PO DAILY@0830 [facility] Last Admin: 05/04/18 08:26 Dose: 0.4 mg Thiamine HCl (Vitamin B1 -) 100 mg PO DAILY [facility] Last Admin: 05/04/18 10:27 Dose: 100 mg Tramadol HCl (Ultram -) 50 mg PO Q6H PRN PRN Reason: PAIN LEVEL 4 - 6 Triamcinolone Acetonide (Aristocort 0.5% Ointment -) 1 applic TP BID [facility] Last Admin: 05/04/18 10:31 Dose: 1 applic - Objective Vital Signs: Vital Signs Temperature 98.1 F 05/04/18 14:00 Pulse Rate 81 05/04/18 14:00 Respiratory Rate 20 05/04/18 14:00 Blood Pressure 129/59 05/04/18 14:00 O2 Sat by Pulse Oximetry (%) 100 05/03/18 21:00 Constitutional: Yes: Calm Eyes: Yes: Conjunctiva Clear HENT: Yes: Atraumatic Neck: Yes: Supple Cardiovascular: Yes: S1, S2 Respiratory: Yes: CTA Bilaterally Gastrointestinal: Yes: Normal Bowel Sounds, Soft Genitourinary: Yes: WNL Musculoskeletal: Yes: WNL Edema: Yes Edema: LLE: 2+, RLE: 2+ Neurological: Yes: Oriented Psychiatric: Yes: Oriented Labs: CBC, BMP 05/04/18 06:10 05/04/18 06:10 INR, PTT INR 1.06 (0.82-1.09) 04/30/18 13:30 Problem List - Problems (1) CKD (chronic kidney disease) Code(s): N18.9 - CHRONIC KIDNEY DISEASE, UNSPECIFIED (2) Hyperkalemia Code(s): E87.5 - HYPERKALEMIA (3) Liver cirrhosis Code(s): K74.60 - UNSPECIFIED CIRRHOSIS OF LIVER (4) Volume overload Code(s): E87.70 - FLUID OVERLOAD, UNSPECIFIED Qualifiers: Hypervolemia type: other Qualified Code(s): E87.79 - Other fluid overload Assessment/Plan Current Medications Generic Name Dose Route Start Last Admin Trade Name Freq PRN Reason Stop Dose Admin Acetaminophen 650 mg 05/04/18 11:06 Tylenol - PO Q6H PRN PAIN LEVEL 1 - 3 Albumin Human 25 gm 05/03/18 15:45 05/04/18 10:27 Albumin Human 25% IVPB 05/06/18 10:01 25 gm DAILY DEV Administration Albuterol/Ipratropium 1 amp 05/01/18 12:00 05/04/18 15:37 Duoneb - NEB 1 amp RQID DEV Administration Amino Acids 30 ml 05/01/18 17:30 05/04/18 17:10 Prosource No Carb Liquid Pkt PO 30 ml BID@0800,1730 DEV Administration Amlodipine Besylate 10 mg 05/01/18 11:00 05/04/18 10:26 Norvasc - PO 10 mg DAILY DEV Administration Benzocaine/Menthol 1 each 05/03/18 10:43 05/04/18 06:03 Cepacol Lozenge - MM 1 each PRN PRN Administration SORE THROAT Clonidine 0.1 mg 05/01/18 22:00 05/04/18 10:22 Catapres - PO 0.1 mg BID DEV Administration Ferrous Sulfate 325 mg 05/01/18 11:00 05/04/18 10:22 Feosol - PO 325 mg DAILY DEV Administration Folic Acid 1 mg 05/01/18 11:00 05/04/18 10:22 Folic Acid - PO 1 mg DAILY DEV Administration Furosemide 40 mg 05/04/18 06:00 05/04/18 13:45 Lasix Injection - IVPUSH 40 mg BID@0600,1400 DEV Administration Guaifenesin 1 tablet 05/03/18 10:45 05/04/18 10:26 Mucinex Dm - PO 1 tablet BID DEV Administration Heparin Sodium (Porcine) 5,000 unit 05/03/18 10:45 05/04/18 10:28 Heparin - SQ 5,000 unit BID DEV Administration Hydroxyzine HCl 50 mg 05/01/18 11:03 05/03/18 22:02 Atarax - PO 50 mg Q6H PRN Administration FOR ITCHING Lactulose 20 gm 05/04/18 11:00 05/04/18 12:19 Cephulac (Oral Use) PO 20 gm BID DEV Administration Multivitamins/Minerals/Vitamin C 1 tab 05/01/18 11:00 05/04/18 10:26 Tab-A-Vit - PO 1 tab DAILY DEV Administration Nicotine 7 mg 05/01/18 11:15 05/04/18 10:30 Nicoderm Patch - TD 7 mg DAILY DEV Administration Oxycodone HCl 5 mg 05/04/18 11:05 Roxicodone - PO Q4H PRN PAIN LEVEL 7 - 10 Polyethylene Glycol 17 gm 05/02/18 23:15 05/04/18 10:25 Miralax (For Daily Use) - PO 17 gm BID DEV Administration Tamsulosin HCl 0.4 mg 05/01/18 11:22 05/04/18 08:26 Flomax - PO 0.4 mg DAILY@0830 DEV Administration Thiamine HCl 100 mg 05/01/18 11:00 05/04/18 10:27 Vitamin B1 - PO 100 mg DAILY DEV Administration Tramadol HCl 50 mg 05/04/18 11:07 Ultram - PO Q6H PRN PAIN LEVEL 4 - 6 Triamcinolone Acetonide 1 applic 05/01/18 11:15 05/04/18 10:31 Aristocort 0.5% Ointment - TP 1 applic BID DEV Administration Impression 1. GRABIEL 2. etoh abuse 3. depression 4. anxiety 5. hx suicide attempts 6. obesity 7. HLD 8. liver cirrhosis 9. hyperkalemia 10. fluid overload 11. proteinuria 12. CKD Plan - restarted lactulose today, he did have a bowel movment, this should help with potassium - cont lasix - will give a dose of metolazone - repeat labs in am - albumin trial - low potassium diet - spironolactone on hold until potassium stable - repeat ua Dr Sparks
[2018-05-04] MEDS: oxyCODONE HCL 5 MG TABLET PO PRN ×2 (18:55→23:32)
[2018-05-04] MEDS: hydrOXYzine HCL 25 MG TABLET (FP) PO PRN (23:35)
[2018-05-05] MEDS: FUROSEMIDE 40 MG/4 ML INJECTABLE VIAL IVPUSH SCH ×2 (05:08→16:14)
--- NOTE | 2018-05-05 06:57 | PN ---
Progress Note, Physician Chief Complaint: SOB Pleural Effusion Liver cirrhosis History of Present Illness: NAD self ambulatory received Venofer yesterday H/H improved Seen by Nephrology, spironolactone on hold for hyperkalemia Seen by Cardiology, no cardiac intervention suggested at this time - Current Medication List Current Medications: Active Medications Acetaminophen (Tylenol -) 650 mg PO Q6H PRN PRN Reason: PAIN LEVEL 1 - 3 Albumin Human (Albumin Human 25%) 25 gm IVPB DAILY [facility] Stop: 05/06/18 10:01 Last Admin: 05/04/18 10:27 Dose: 25 gm Albuterol/Ipratropium (Duoneb -) 1 amp NEB RQID [facility] Last Admin: 05/04/18 21:00 Dose: 1 amp Amino Acids (Prosource No Carb Liquid Pkt) 30 ml PO BID@0800,1730 [facility] Last Admin: 05/04/18 17:10 Dose: 30 ml Amlodipine Besylate (Norvasc -) 10 mg PO DAILY [facility] Last Admin: 05/04/18 10:26 Dose: 10 mg Benzocaine/Menthol (Cepacol Lozenge -) 1 each MM PRN PRN PRN Reason: SORE THROAT Last Admin: 05/04/18 22:22 Dose: 1 each Clonidine (Catapres -) 0.1 mg PO BID [facility] Last Admin: 05/04/18 22:12 Dose: 0.1 mg Ferrous Sulfate (Feosol -) 325 mg PO DAILY [facility] Last Admin: 05/04/18 10:22 Dose: 325 mg Folic Acid (Folic Acid -) 1 mg PO DAILY [facility] Last Admin: 05/04/18 10:22 Dose: 1 mg Furosemide (Lasix Injection -) 40 mg IVPUSH BID@0600,1400 [facility] Last Admin: 05/05/18 05:08 Dose: 40 mg Guaifenesin (Mucinex Dm -) 1 tablet PO BID [facility] Last Admin: 05/04/18 22:12 Dose: 1 tablet Heparin Sodium (Porcine) (Heparin -) 5,000 unit SQ BID [facility] Last Admin: 05/04/18 22:13 Dose: 5,000 unit Hydroxyzine HCl (Atarax -) 50 mg PO Q6H PRN PRN Reason: FOR ITCHING Last Admin: 05/04/18 23:35 Dose: 50 mg Lactulose (Cephulac (Oral Use)) 20 gm PO BID [facility] Last Admin: 05/04/18 22:13 Dose: 20 gm Multivitamins/Minerals/Vitamin C (Tab-A-Vit -) 1 tab PO DAILY [facility] Last Admin: 05/04/18 10:26 Dose: 1 tab Nicotine (Nicoderm Patch -) 7 mg TD DAILY [facility] Last Admin: 05/04/18 10:30 Dose: 7 mg Oxycodone HCl (Roxicodone -) 5 mg PO Q4H PRN PRN Reason: PAIN LEVEL 7 - 10 Last Admin: 05/04/18 23:32 Dose: 5 mg Polyethylene Glycol (Miralax (For Daily Use) -) 17 gm PO BID [facility] Last Admin: 05/04/18 22:13 Dose: 17 gm Tamsulosin HCl (Flomax -) 0.4 mg PO DAILY@0830 [facility] Last Admin: 05/04/18 08:26 Dose: 0.4 mg Thiamine HCl (Vitamin B1 -) 100 mg PO DAILY [facility] Last Admin: 05/04/18 10:27 Dose: 100 mg Tramadol HCl (Ultram -) 50 mg PO Q6H PRN PRN Reason: PAIN LEVEL 4 - 6 Triamcinolone Acetonide (Aristocort 0.5% Ointment -) 1 applic TP BID [facility] Last Admin: 05/04/18 22:11 Dose: 1 applic - Objective Vital Signs: Vital Signs Temperature 98.1 F 05/04/18 22:00 Pulse Rate 81 05/04/18 22:00 Respiratory Rate 20 05/04/18 22:00 Blood Pressure 134/69 05/04/18 22:00 O2 Sat by Pulse Oximetry (%) 98 05/04/18 21:00 Constitutional: Yes: Well Nourished, No Distress, Calm Cardiovascular: Yes: Regular Rate and Rhythm Respiratory: Yes: Regular Gastrointestinal: Yes: Normal Bowel Sounds, Soft, Ascites Musculoskeletal: Yes: WNL Extremities: Yes: WNL Edema: Yes Edema: LUE: Trace, LLE: 1+, RLE: 1+ Peripheral Pulses WNL: Yes Neurological: Yes: Alert, Oriented Psychiatric: Yes: Alert, Oriented Labs: CBC, BMP 05/04/18 06:10 05/04/18 06:10 INR, PTT INR 1.06 (0.82-1.09) 04/30/18 13:30 Problem List - Problems (1) Anemia Assessment/Plan: -hematology consult -H/H improved today -labs: B12, folate, thyroid profile-normal -iron low -received Venofer yesterday -stool OB negative -Transfuse if needed cautiously, to avoid fluid overload Code(s): D64.9 - ANEMIA, UNSPECIFIED (2) Hyperkalemia Assessment/Plan: -nephrology consult -monitor trend -low potassium diet Code(s): E87.5 - HYPERKALEMIA (3) Liver cirrhosis Assessment/Plan: -GI consult -monitor labs Code(s): K74.60 - UNSPECIFIED CIRRHOSIS OF LIVER (4) Acute kidney injury Assessment/Plan: -nephrology consult Code(s): N17.9 - ACUTE KIDNEY FAILURE, UNSPECIFIED (5) Alcoholic hepatitis Code(s): K70.10 - ALCOHOLIC HEPATITIS WITHOUT ASCITES (6) Pleural effusion Assessment/Plan: -pulmonary consult Code(s): J90 - PLEURAL EFFUSION, NOT ELSEWHERE CLASSIFIED (7) Volume overload Assessment/Plan: 2/2 to third spacing due to liver cirrhosis and CHF -lasix 40 mg IVP daily -low sodium diet -hold spironolactone until K+ improves Code(s): E87.70 - FLUID OVERLOAD, UNSPECIFIED Qualifiers: Hypervolemia type: other Qualified Code(s): E87.79 - Other fluid overload Assessment/Plan see problem list
[2018-05-05 07:32] LABS: BASO % 0.8 % (0-2.0); EOS % 9.6 % (0-4.5); HEMATOCRIT 24.1 % (35.4-49); HEMOGLOBIN 8.3 GM/dL (11.7-16.9); LYMPH % 18.2 % (8-40); MCH 29.3 pg (25.7-33.7); MCHC 34.4 g/dl (32.0-35.9); MEAN CELL VOLUME 85.3 fl (80-96); MEAN PLT VOLUME 11.1 fl (7.5-11.1); MONO % 7.5 % (3.8-10.2); NEUT % 63.9 % (42.8-82.8); PLATELET COUNT 79 K/MM3 (134-434); RBC 2.82 M/mm3 (4.00-5.60); RDW 15.5 % (11.9-15.9); WHITE BLOOD COUNT 3.8 K/mm3 (4.0-10.0)
[2018-05-05] MEDS: ALBUTEROL SO4 2.5/IPRATROPIUM 0.5 INH SOL 3 ML VIAL.NEB. NEB SCH ×2 (07:40→21:23)
[2018-05-05] MEDS: TAMSULOSIN HCL 0.4 MG CAP.ER.24H (FP) PO SCH (08:14)
[2018-05-05] MEDS: AMINO ACIDS/PROTEIN HYDROLYS 30 ML LIQUID.PKT PO SCH ×2 (08:14→17:04)
[2018-05-05 08:18] LABS: ANION GAP 8 (8-16); BLOOD UREA NITROGEN 50 mg/dL (7-18); CALCIUM 7.9 mg/dL (8.5-10.1); CHLORIDE 111 mmol/L (98-107); CO2 19 mmol/L (21-32); GLUCOSE,RANDOM 79 mg/dL (74-106); POTASSIUM 4.9 mmol/L (3.5-5.1); SGOT/AST 28 U/L (15-37); SODIUM 138 mmol/L (136-145)
[2018-05-05 08:28] LABS: ALBUMIN 2.2 g/dl (3.4-5.0); ALK PHOS 99 U/L (45-117); BILIRUBIN,TOTAL 0.5 mg/dL (0.2-1.0); CREATININE 2.3 mg/dL (0.7-1.3); SGPT/ALT 17 U/L (12-78); TOT PROT 5.5 g/dl (6.4-8.2)
[2018-05-05] MEDS: ALBUMIN HUMAN 25% 12.5 GM/50 ML VIAL IVPB SCH (09:02)
[2018-05-05] MEDS: MULTIVITAMINS (DAILY MVI) TABLET (FP) PO SCH (09:04)
[2018-05-05] MEDS: amLODIPine BESYLATE 10 MG TABLET (FP) PO SCH (09:04)
[2018-05-05] MEDS: THIAMINE HCL 100 MG TABLET (FP) PO SCH (09:04)
[2018-05-05] MEDS: FOLIC ACID 1 MG TABLET (FP) PO SCH (09:04)
[2018-05-05] MEDS: FERROUS SO4 325 MG TABLET (FP) PO SCH ×2 (09:04→22:20)
[2018-05-05] MEDS: HEPARIN NA (PORCINE) 5,000 UNITS/ML 1ML VIAL SQ SCH ×2 (09:05→22:21)
[2018-05-05] MEDS ORDERED: PT OWN MED DRAWER 7, Y5N ONE (09:07)
[2018-05-05] MEDS: cloNIDine HCL 0.1 MG TABLET PO SCH ×2 (09:10→22:18)
[2018-05-05] MEDS: guaiFENesin/D-METHORPHAN HB 1 EACH TAB.ER.12H PO SCH ×2 (09:11→22:18)
[2018-05-05] MEDS: LACTULOSE 20 GM/30 ML UDC (FOR ORAL USE ONLY) PO SCH ×2 (09:11→22:20)
[2018-05-05] MEDS: NICOTINE 7 MG/24 HOURS TOPICAL PATCH TD SCH (09:11)
[2018-05-05] MEDS: TRIAMCINOLONE ACET 0.5% OINT 15 GM TUBE TP SCH ×2 (09:12→22:17)
[2018-05-05] MEDS: POLYETHYLENE GLYCOL 3350 119 GM BTL PO SCH ×2 (09:17→22:21)
--- NOTE | 2018-05-05 10:14 | PN ---
Progress Note (short form) - Note Progress Note: Breathing feels better overall with the BD TX. No CP. Receiving pRBCS. Intake & Output 05/02/18 05/03/18 05/04/18 05/05/18 23:59 23:59 23:59 23:59 Intake Total 450 750 285 Output Total 1000 Balance 450 -250 285 Weight 231 lb Last Vital Signs Temp Pulse Resp BP Pulse Ox 97.7 F 71 20 122/63 98 05/05/18 06:00 05/05/18 06:00 05/05/18 06:00 05/05/18 06:00 05/04/18 21:00 Active Medications Acetaminophen (Tylenol -) 650 mg PO Q6H PRN PRN Reason: PAIN LEVEL 1 - 3 Albumin Human (Albumin Human 25%) 25 gm IVPB DAILY [facility] Stop: 05/06/18 10:01 Last Admin: 05/05/18 09:02 Dose: 25 gm Albuterol/Ipratropium (Duoneb -) 1 amp NEB RQID [facility] Last Admin: 05/05/18 07:40 Dose: 1 amp Amino Acids (Prosource No Carb Liquid Pkt) 30 ml PO BID@0800,1730 [facility] Last Admin: 05/05/18 08:14 Dose: 30 ml Amlodipine Besylate (Norvasc -) 10 mg PO DAILY [facility] Last Admin: 05/05/18 09:04 Dose: 10 mg Benzocaine/Menthol (Cepacol Lozenge -) 1 each MM PRN PRN PRN Reason: SORE THROAT Last Admin: 05/04/18 22:22 Dose: 1 each Clonidine (Catapres -) 0.1 mg PO BID [facility] Last Admin: 05/05/18 09:10 Dose: 0.1 mg Ferrous Sulfate (Feosol -) 325 mg PO BID [facility] Last Admin: 05/05/18 09:04 Dose: 325 mg Folic Acid (Folic Acid -) 1 mg PO DAILY [facility] Last Admin: 05/05/18 09:04 Dose: 1 mg Furosemide (Lasix Injection -) 40 mg IVPUSH BID@0600,1400 [facility] Last Admin: 05/05/18 05:08 Dose: 40 mg Guaifenesin (Mucinex Dm -) 1 tablet PO BID [facility] Last Admin: 05/05/18 09:11 Dose: 1 tablet Heparin Sodium (Porcine) (Heparin -) 5,000 unit SQ BID [facility] Last Admin: 05/05/18 09:05 Dose: 5,000 unit Hydroxyzine HCl (Atarax -) 50 mg PO Q6H PRN PRN Reason: FOR ITCHING Last Admin: 05/04/18 23:35 Dose: 50 mg Lactulose (Cephulac (Oral Use)) 20 gm PO BID [facility] Last Admin: 05/05/18 09:11 Dose: 20 gm Multivitamins/Minerals/Vitamin C (Tab-A-Vit -) 1 tab PO DAILY [facility] Last Admin: 05/05/18 09:04 Dose: 1 tab Nicotine (Nicoderm Patch -) 7 mg TD DAILY [facility] Last Admin: 05/05/18 09:11 Dose: 7 mg Oxycodone HCl (Roxicodone -) 5 mg PO Q4H PRN PRN Reason: PAIN LEVEL 7 - 10 Last Admin: 05/04/18 23:32 Dose: 5 mg Polyethylene Glycol (Miralax (For Daily Use) -) 17 gm PO BID [facility] Last Admin: 05/05/18 09:17 Dose: 17 gm Tamsulosin HCl (Flomax -) 0.4 mg PO DAILY@0830 [facility] Last Admin: 05/05/18 08:14 Dose: 0.4 mg Thiamine HCl (Vitamin B1 -) 100 mg PO DAILY [facility] Last Admin: 05/05/18 09:04 Dose: 100 mg Tramadol HCl (Ultram -) 50 mg PO Q6H PRN PRN Reason: PAIN LEVEL 4 - 6 Triamcinolone Acetonide (Aristocort 0.5% Ointment -) 1 applic TP BID [facility] Last Admin: 05/05/18 09:12 Dose: 1 applic Constitutional: Yes: NAD Cardiovascular: Yes: Regular Rate and Rhythm Respiratory: Yes: Clear Gastrointestinal: Yes: Normal Bowel Sounds, Soft, Ascites Musculoskeletal: Yes: WNL Extremities: Yes: WNL Edema: Yes Edema: LUE: Trace, LLE: 1+, RLE: 1+ Peripheral Pulses WNL: Yes Neurological: Yes: Alert, Oriented Psychiatric: Yes: Alert, Oriented Labs: Laboratory Results - last 24 hr 05/04/18 05/05/18 05/05/18 16:00 06:00 06:00 WBC 3.8 L RBC 2.82 L Hgb 8.3 L Hct 24.1 L MCV 85.3 MCH 29.3 MCHC 34.4 RDW 15.5 Plt Count 79 L MPV 11.1 Absolute Neuts (auto) 2.5 Neutrophils % 63.9 Lymphocytes % 18.2 Monocytes % 7.5 Eosinophils % 9.6 H Basophils % 0.8 Nucleated RBC % 0 Sodium 138 Potassium 4.9 Chloride 111 H Carbon Dioxide 19 L Anion Gap 8 BUN 50 H Creatinine 2.3 H Creat Clearance w eGFR 30.90 Random Glucose 79 Calcium 7.9 L Total Bilirubin 0.5 D AST 28 ALT 17 Alkaline Phosphatase 99 Total Protein 5.5 L Albumin 2.2 L Stool Occult Blood Negative Pleural Effusion c/w Hepatic Hydrothorax Liver Cirrhosis s/p TIPS Thrombocytopenia CKD HTN DM Hypercholesterolemia - BD TX - O2 as needed - Normal transfusion thresholds - lasix - VTE prophylaxis Papo CYR MD
[2018-05-05] MEDS ORDERED: ALBUTEROL SO4 0.083% IH SOL 2.5 MG/3 ML VIAL.NEB. NEB PRN (10:18)
--- NOTE | 2018-05-05 14:35 | PN ---
Progress Note, Physician History of Present Illness: Pt seen and examined at bedside. He feels that the edema is starting to improve. He denies shortness of breath. - Current Medication List Current Medications: Active Medications Acetaminophen (Tylenol -) 650 mg PO Q6H PRN PRN Reason: PAIN LEVEL 1 - 3 Albumin Human (Albumin Human 25%) 25 gm IVPB DAILY [facility] Stop: 05/06/18 10:01 Last Admin: 05/05/18 09:02 Dose: 25 gm Albuterol Sulfate (Ventolin 0.083% Nebulizer Soln -) 1 amp NEB Q4H PRN PRN Reason: SHORT OF BREATH/WHEEZING Albuterol/Ipratropium (Duoneb -) 1 amp NEB BID [facility] Amino Acids (Prosource No Carb Liquid Pkt) 30 ml PO BID@0800,1730 [facility] Last Admin: 05/05/18 08:14 Dose: 30 ml Amlodipine Besylate (Norvasc -) 10 mg PO DAILY [facility] Last Admin: 05/05/18 09:04 Dose: 10 mg Benzocaine/Menthol (Cepacol Lozenge -) 1 each MM PRN PRN PRN Reason: SORE THROAT Last Admin: 05/04/18 22:22 Dose: 1 each Clonidine (Catapres -) 0.1 mg PO BID [facility] Last Admin: 05/05/18 09:10 Dose: 0.1 mg Ferrous Sulfate (Feosol -) 325 mg PO BID [facility] Last Admin: 05/05/18 09:04 Dose: 325 mg Folic Acid (Folic Acid -) 1 mg PO DAILY [facility] Last Admin: 05/05/18 09:04 Dose: 1 mg Furosemide (Lasix Injection -) 40 mg IVPUSH BID@0600,1400 [facility] Last Admin: 05/05/18 05:08 Dose: 40 mg Guaifenesin (Mucinex Dm -) 1 tablet PO BID [facility] Last Admin: 05/05/18 09:11 Dose: 1 tablet Heparin Sodium (Porcine) (Heparin -) 5,000 unit SQ BID [facility] Last Admin: 05/05/18 09:05 Dose: 5,000 unit Hydroxyzine HCl (Atarax -) 50 mg PO Q6H PRN PRN Reason: FOR ITCHING Last Admin: 05/04/18 23:35 Dose: 50 mg Lactulose (Cephulac (Oral Use)) 20 gm PO BID [facility] Last Admin: 05/05/18 09:11 Dose: 20 gm Multivitamins/Minerals/Vitamin C (Tab-A-Vit -) 1 tab PO DAILY [facility] Last Admin: 05/05/18 09:04 Dose: 1 tab Nicotine (Nicoderm Patch -) 7 mg TD DAILY [facility] Last Admin: 05/05/18 09:11 Dose: 7 mg Oxycodone HCl (Roxicodone -) 5 mg PO Q4H PRN PRN Reason: PAIN LEVEL 7 - 10 Last Admin: 05/04/18 23:32 Dose: 5 mg Polyethylene Glycol (Miralax (For Daily Use) -) 17 gm PO BID [facility] Last Admin: 05/05/18 09:17 Dose: 17 gm Tamsulosin HCl (Flomax -) 0.4 mg PO DAILY@0830 [facility] Last Admin: 05/05/18 08:14 Dose: 0.4 mg Thiamine HCl (Vitamin B1 -) 100 mg PO DAILY [facility] Last Admin: 05/05/18 09:04 Dose: 100 mg Tramadol HCl (Ultram -) 50 mg PO Q6H PRN PRN Reason: PAIN LEVEL 4 - 6 Triamcinolone Acetonide (Aristocort 0.5% Ointment -) 1 applic TP BID [facility] Last Admin: 05/05/18 09:12 Dose: 1 applic - Objective Vital Signs: Vital Signs Temperature 98 F 05/05/18 10:00 Pulse Rate 78 05/05/18 10:00 Respiratory Rate 20 05/05/18 10:00 Blood Pressure 132/67 05/05/18 10:00 O2 Sat by Pulse Oximetry (%) 98 05/05/18 09:00 Constitutional: Yes: Calm HENT: Yes: Atraumatic Neck: Yes: Supple Cardiovascular: Yes: S1, S2 Respiratory: Yes: CTA Bilaterally Gastrointestinal: Yes: Soft Musculoskeletal: Yes: WNL Extremities: Yes: WNL Edema: Yes Edema: LLE: 1+, RLE: 1+ Neurological: Yes: Oriented Psychiatric: Yes: Oriented Labs: CBC, BMP 05/05/18 06:00 05/05/18 06:00 INR, PTT INR 1.06 (0.82-1.09) 04/30/18 13:30 Problem List - Problems (1) CKD (chronic kidney disease) Code(s): N18.9 - CHRONIC KIDNEY DISEASE, UNSPECIFIED (2) Hyperkalemia Code(s): E87.5 - HYPERKALEMIA (3) Liver cirrhosis Code(s): K74.60 - UNSPECIFIED CIRRHOSIS OF LIVER (4) Volume overload Code(s): E87.70 - FLUID OVERLOAD, UNSPECIFIED Qualifiers: Hypervolemia type: other Qualified Code(s): E87.79 - Other fluid overload Assessment/Plan Current Medications Generic Name Dose Route Start Last Admin Trade Name Freq PRN Reason Stop Dose Admin Acetaminophen 650 mg 05/04/18 11:06 Tylenol - PO Q6H PRN PAIN LEVEL 1 - 3 Albumin Human 25 gm 05/03/18 15:45 05/05/18 09:02 Albumin Human 25% IVPB 05/06/18 10:01 25 gm DAILY DEV Administration Albuterol Sulfate 1 amp 05/05/18 10:18 Ventolin 0.083% Nebulizer Soln - NEB Q4H PRN SHORT OF BREATH/WHEEZING Albuterol/Ipratropium 1 amp 05/05/18 22:00 Duoneb - NEB BID [facility] Amino Acids 30 ml 05/01/18 17:30 05/05/18 08:14 Prosource No Carb Liquid Pkt PO 30 ml BID@0800,1730 [facility] Administration Amlodipine Besylate 10 mg 05/01/18 11:00 05/05/18 09:04 Norvasc - PO 10 mg DAILY [facility] Administration Benzocaine/Menthol 1 each 05/03/18 10:43 05/04/18 22:22 Cepacol Lozenge - MM 1 each PRN PRN Administration SORE THROAT Clonidine 0.1 mg 05/01/18 22:00 05/05/18 09:10 Catapres - PO 0.1 mg BID DEV Administration Ferrous Sulfate 325 mg 05/05/18 10:00 05/05/18 09:04 Feosol - PO 325 mg BID DEV Administration Folic Acid 1 mg 05/01/18 11:00 05/05/18 09:04 Folic Acid - PO 1 mg DAILY [facility] Administration Furosemide 40 mg 05/04/18 06:00 05/05/18 05:08 Lasix Injection - IVPUSH 40 mg BID@0600,1400 [facility] Administration Guaifenesin 1 tablet 05/03/18 10:45 05/05/18 09:11 Mucinex Dm - PO 1 tablet BID [facility] Administration Heparin Sodium (Porcine) 5,000 unit 05/03/18 10:45 05/05/18 09:05 Heparin - SQ 5,000 unit BID [facility] Administration Hydroxyzine HCl 50 mg 05/01/18 11:03 05/04/18 23:35 Atarax - PO 50 mg Q6H PRN Administration FOR ITCHING Lactulose 20 gm 05/04/18 11:00 05/05/18 09:11 Cephulac (Oral Use) PO 20 gm BID [facility] Administration Multivitamins/Minerals/Vitamin C 1 tab 05/01/18 11:00 05/05/18 09:04 Tab-A-Vit - PO 1 tab DAILY [facility] Administration Nicotine 7 mg 05/01/18 11:15 05/05/18 09:11 Nicoderm Patch - TD 7 mg DAILY [facility] Administration Oxycodone HCl 5 mg 05/04/18 11:05 05/04/18 23:32 Roxicodone - PO 5 mg Q4H PRN Administration PAIN LEVEL 7 - 10 Polyethylene Glycol 17 gm 05/02/18 23:15 05/05/18 09:17 Miralax (For Daily Use) - PO 17 gm BID [facility] Administration Tamsulosin HCl 0.4 mg 05/01/18 11:22 05/05/18 08:14 Flomax - PO 0.4 mg DAILY@0830 [facility] Administration Thiamine HCl 100 mg 05/01/18 11:00 05/05/18 09:04 Vitamin B1 - PO 100 mg DAILY [facility] Administration Tramadol HCl 50 mg 05/04/18 11:07 Ultram - PO Q6H PRN PAIN LEVEL 4 - 6 Triamcinolone Acetonide 1 applic 05/01/18 11:15 05/05/18 09:12 Aristocort 0.5% Ointment - TP 1 applic BID [facility] Administration Impression 1. GRABIEL 2. etoh abuse 3. depression 4. anxiety 5. hx suicide attempts 6. obesity 7. HLD 8. liver cirrhosis 9. hyperkalemia 10. fluid overload 11. proteinuria 12. CKD Plan - volume status is improving - cont with lasix - will give another dose of metolazone - repeat labs in am - potassium improving - spironolactone on hold until potassium stable - repeat ua, not done yet Dr Sparks
[2018-05-05] MEDS ORDERED: METOLAZONE 2.5 MG TABLET (FP) PO ONE (15:30)
[2018-05-05] MEDS ORDERED: METOLAZONE 5 MG TABLET PO ONE (15:30)
[2018-05-05] MEDS: hydrOXYzine HCL 25 MG TABLET (FP) PO PRN (22:18)
[2018-05-05] MEDS: traMADol HCL 50 MG TABLET PO PRN (22:19)
[2018-05-06] MEDS: FUROSEMIDE 40 MG/4 ML INJECTABLE VIAL IVPUSH SCH ×2 (06:19→14:18)
[2018-05-06] MEDS: BENZOCAINE/MENTH/CETYLPYRD CL 1 EACH LOZENGE MM PRN (06:19)
[2018-05-06 06:44] LABS: BASO % 0.9 % (0-2.0); EOS % 9.4 % (0-4.5); HEMATOCRIT 22.4 % (35.4-49); HEMOGLOBIN 7.7 GM/dL (11.7-16.9); LYMPH % 17.3 % (8-40); MCH 29.4 pg (25.7-33.7); MCHC 34.4 g/dl (32.0-35.9); MEAN CELL VOLUME 85.4 fl (80-96); MONO % 9.6 % (3.8-10.2); NEUT % 62.8 % (42.8-82.8); PLATELET COUNT 61 K/MM3 (134-434); RBC 2.62 M/mm3 (4.00-5.60); RDW 15.4 % (11.9-15.9); WHITE BLOOD COUNT 3.2 K/mm3 (4.0-10.0)
[2018-05-06] MEDS ORDERED: IRON SUCROSE INJECTION 300 MG in SODIUM CHLORIDE 235 ML IVPB ONE (07:05)
--- NOTE | 2018-05-06 07:09 | PN ---
Progress Note, Physician Chief Complaint: SOB Pleural Effusion Liver cirrhosis History of Present Illness: NAD self ambulatory received Venofer yesterday H/H improved Seen by Nephrology, spironolactone on hold for hyperkalemia Seen by Cardiology, no cardiac intervention suggested at this time - Current Medication List Current Medications: Active Medications Acetaminophen (Tylenol -) 650 mg PO Q6H PRN PRN Reason: PAIN LEVEL 1 - 3 Albumin Human (Albumin Human 25%) 25 gm IVPB DAILY [facility] Stop: 05/06/18 10:01 Last Admin: 05/05/18 09:02 Dose: 25 gm Albuterol Sulfate (Ventolin 0.083% Nebulizer Soln -) 1 amp NEB Q4H PRN PRN Reason: SHORT OF BREATH/WHEEZING Albuterol/Ipratropium (Duoneb -) 1 amp NEB BID [facility] Last Admin: 05/05/18 21:23 Dose: 1 amp Amino Acids (Prosource No Carb Liquid Pkt) 30 ml PO BID@0800,1730 [facility] Last Admin: 05/05/18 17:04 Dose: 30 ml Amlodipine Besylate (Norvasc -) 10 mg PO DAILY [facility] Last Admin: 05/05/18 09:04 Dose: 10 mg Benzocaine/Menthol (Cepacol Lozenge -) 1 each MM PRN PRN PRN Reason: SORE THROAT Last Admin: 05/06/18 06:19 Dose: 1 each Clonidine (Catapres -) 0.1 mg PO BID [facility] Last Admin: 05/05/18 22:18 Dose: 0.1 mg Ferrous Sulfate (Feosol -) 325 mg PO BID [facility] Last Admin: 05/05/18 22:20 Dose: 325 mg Folic Acid (Folic Acid -) 1 mg PO DAILY [facility] Last Admin: 05/05/18 09:04 Dose: 1 mg Furosemide (Lasix Injection -) 40 mg IVPUSH BID@0600,1400 [facility] Last Admin: 05/06/18 06:19 Dose: 40 mg Guaifenesin (Mucinex Dm -) 1 tablet PO BID [facility] Last Admin: 05/05/18 22:18 Dose: 1 tablet Heparin Sodium (Porcine) (Heparin -) 5,000 unit SQ BID [facility] Last Admin: 05/05/18 22:21 Dose: 5,000 unit Hydroxyzine HCl (Atarax -) 50 mg PO Q6H PRN PRN Reason: FOR ITCHING Last Admin: 05/05/18 22:18 Dose: 50 mg Lactulose (Cephulac (Oral Use)) 20 gm PO BID [facility] Last Admin: 05/05/18 22:20 Dose: 20 gm Multivitamins/Minerals/Vitamin C (Tab-A-Vit -) 1 tab PO DAILY [facility] Last Admin: 05/05/18 09:04 Dose: 1 tab Nicotine (Nicoderm Patch -) 7 mg TD DAILY [facility] Last Admin: 05/05/18 09:11 Dose: 7 mg Oxycodone HCl (Roxicodone -) 5 mg PO Q4H PRN PRN Reason: PAIN LEVEL 7 - 10 Last Admin: 05/04/18 23:32 Dose: 5 mg Polyethylene Glycol (Miralax (For Daily Use) -) 17 gm PO BID [facility] Last Admin: 05/05/18 22:21 Dose: 17 gm Tamsulosin HCl (Flomax -) 0.4 mg PO DAILY@0830 [facility] Last Admin: 05/05/18 08:14 Dose: 0.4 mg Thiamine HCl (Vitamin B1 -) 100 mg PO DAILY [facility] Last Admin: 05/05/18 09:04 Dose: 100 mg Tramadol HCl (Ultram -) 50 mg PO Q6H PRN PRN Reason: PAIN LEVEL 4 - 6 Last Admin: 05/05/18 22:19 Dose: 50 mg Triamcinolone Acetonide (Aristocort 0.5% Ointment -) 1 applic TP BID [facility] Last Admin: 05/05/18 22:17 Dose: 1 applic - Objective Vital Signs: Vital Signs Temperature 98.9 F 05/05/18 22:00 Pulse Rate 88 05/05/18 22:00 Respiratory Rate 18 05/05/18 22:00 Blood Pressure 126/74 05/05/18 22:00 O2 Sat by Pulse Oximetry (%) 98 05/05/18 21:00 Constitutional: Yes: Well Nourished, No Distress, Calm Cardiovascular: Yes: Regular Rate and Rhythm Respiratory: Yes: Regular Gastrointestinal: Yes: Normal Bowel Sounds, Soft Musculoskeletal: Yes: WNL Extremities: Yes: WNL Edema: Yes Edema: LLE: 1+, RLE: 1+ Peripheral Pulses WNL: Yes Neurological: Yes: Alert, Oriented Psychiatric: Yes: Alert, Oriented Labs: CBC, BMP 05/06/18 06:00 INR, PTT INR 1.06 (0.82-1.09) 04/30/18 13:30 Problem List - Problems (1) Anemia Assessment/Plan: -hematology consult -H/H mild drop -labs: B12, folate, thyroid profile-normal -iron low -Venofer -stool OB negative -Transfuse if needed cautiously, to avoid fluid overload Code(s): D64.9 - ANEMIA, UNSPECIFIED (2) Hyperkalemia Assessment/Plan: -nephrology consult -monitor trend -low potassium diet -Spironolactone on hold Code(s): E87.5 - HYPERKALEMIA (3) Liver cirrhosis Assessment/Plan: -GI consult -monitor labs Code(s): K74.60 - UNSPECIFIED CIRRHOSIS OF LIVER (4) Acute kidney injury Assessment/Plan: -nephrology consult Code(s): N17.9 - ACUTE KIDNEY FAILURE, UNSPECIFIED (5) Alcoholic hepatitis Code(s): K70.10 - ALCOHOLIC HEPATITIS WITHOUT ASCITES (6) Pleural effusion Assessment/Plan: -pulmonary consult Code(s): J90 - PLEURAL EFFUSION, NOT ELSEWHERE CLASSIFIED (7) Volume overload Assessment/Plan: 2/2 to third spacing due to liver cirrhosis and CHF -lasix 40 mg IVP daily -low sodium diet -hold spironolactone until K+ improves Code(s): E87.70 - FLUID OVERLOAD, UNSPECIFIED Qualifiers: Hypervolemia type: other Qualified Code(s): E87.79 - Other fluid overload Assessment/Plan see problem list
[2018-05-06 07:22] LABS: ALBUMIN 2.1 g/dl (3.4-5.0); ANION GAP 9 (8-16); BLOOD UREA NITROGEN 55 mg/dL (7-18); CALCIUM 7.7 mg/dL (8.5-10.1); CHLORIDE 112 mmol/L (98-107); CO2 17 mmol/L (21-32); GLUCOSE,RANDOM 86 mg/dL (74-106); POTASSIUM 4.8 mmol/L (3.5-5.1); SGOT/AST 24 U/L (15-37); SODIUM 138 mmol/L (136-145)
[2018-05-06 07:24] LABS: ALK PHOS 102 U/L (45-117); BILIRUBIN,TOTAL 0.4 mg/dL (0.2-1.0); CREATININE 2.3 mg/dL (0.7-1.3); SGPT/ALT 18 U/L (12-78); TOT PROT 5.1 g/dl (6.4-8.2)
[2018-05-06] MEDS: AMINO ACIDS/PROTEIN HYDROLYS 30 ML LIQUID.PKT PO SCH ×2 (08:45→17:19)
[2018-05-06] MEDS: TAMSULOSIN HCL 0.4 MG CAP.ER.24H (FP) PO SCH (08:45)
[2018-05-06] MEDS ORDERED: PT OWN MED DRAWER 7, Y5N ONE (09:18)
[2018-05-06] MEDS: FOLIC ACID 1 MG TABLET (FP) PO SCH (09:20)
[2018-05-06] MEDS: cloNIDine HCL 0.1 MG TABLET PO SCH ×2 (09:20→21:50)
[2018-05-06] MEDS: FERROUS SO4 325 MG TABLET (FP) PO SCH ×2 (09:20→21:49)
[2018-05-06] MEDS: THIAMINE HCL 100 MG TABLET (FP) PO SCH (09:20)
[2018-05-06] MEDS: amLODIPine BESYLATE 10 MG TABLET (FP) PO SCH (09:20)
[2018-05-06] MEDS: MULTIVITAMINS (DAILY MVI) TABLET (FP) PO SCH (09:20)
[2018-05-06] MEDS: LACTULOSE 20 GM/30 ML UDC (FOR ORAL USE ONLY) PO SCH ×2 (09:20→21:50)
[2018-05-06] MEDS: HEPARIN NA (PORCINE) 5,000 UNITS/ML 1ML VIAL SQ SCH ×2 (09:20→21:58)
[2018-05-06] MEDS: TRIAMCINOLONE ACET 0.5% OINT 15 GM TUBE TP SCH ×2 (09:21→21:57)
[2018-05-06] MEDS: guaiFENesin/D-METHORPHAN HB 1 EACH TAB.ER.12H PO SCH ×2 (09:21→21:59)
[2018-05-06] MEDS: NICOTINE 7 MG/24 HOURS TOPICAL PATCH TD SCH (09:21)
[2018-05-06] MEDS: POLYETHYLENE GLYCOL 3350 119 GM BTL PO SCH ×2 (09:23→21:50)
[2018-05-06] MEDS: ALBUTEROL SO4 2.5/IPRATROPIUM 0.5 INH SOL 3 ML VIAL.NEB. NEB SCH ×2 (09:54→22:27)
--- NOTE | 2018-05-06 11:18 | PN ---
Progress Note (short form) - Note Progress Note: Breathing feels overall better. No CP. Intake & Output 05/03/18 05/04/18 05/05/18 05/06/18 23:59 23:59 23:59 23:59 Intake Total 750 285 935 Output Total 1000 Balance -250 285 935 Weight 231 lb 231 lb 6.4 oz Last Vital Signs Temp Pulse Resp BP Pulse Ox 98.9 F 72 18 130/71 98 05/06/18 06:00 05/06/18 06:00 05/06/18 06:00 05/06/18 06:00 05/05/18 21:00 Active Medications Acetaminophen (Tylenol -) 650 mg PO Q6H PRN PRN Reason: PAIN LEVEL 1 - 3 Albuterol Sulfate (Ventolin 0.083% Nebulizer Soln -) 1 amp NEB Q4H PRN PRN Reason: SHORT OF BREATH/WHEEZING Albuterol/Ipratropium (Duoneb -) 1 amp NEB BID [facility] Last Admin: 05/06/18 09:54 Dose: 1 amp Amino Acids (Prosource No Carb Liquid Pkt) 30 ml PO BID@0800,1730 [facility] Last Admin: 05/06/18 08:45 Dose: 30 ml Amlodipine Besylate (Norvasc -) 10 mg PO DAILY [facility] Last Admin: 05/06/18 09:20 Dose: 10 mg Benzocaine/Menthol (Cepacol Lozenge -) 1 each MM PRN PRN PRN Reason: SORE THROAT Last Admin: 05/06/18 06:19 Dose: 1 each Clonidine (Catapres -) 0.1 mg PO BID [facility] Last Admin: 05/06/18 09:20 Dose: 0.1 mg Ferrous Sulfate (Feosol -) 325 mg PO BID [facility] Last Admin: 05/06/18 09:20 Dose: 325 mg Folic Acid (Folic Acid -) 1 mg PO DAILY [facility] Last Admin: 05/06/18 09:20 Dose: 1 mg Furosemide (Lasix Injection -) 40 mg IVPUSH BID@0600,1400 [facility] Last Admin: 05/06/18 06:19 Dose: 40 mg Furosemide (Lasix -) 40 mg PO BID@0600,1400 [facility] Guaifenesin (Mucinex Dm -) 1 tablet PO BID [facility] Last Admin: 05/06/18 09:21 Dose: 1 tablet Heparin Sodium (Porcine) (Heparin -) 5,000 unit SQ BID [facility] Last Admin: 05/06/18 09:20 Dose: 5,000 unit Hydroxyzine HCl (Atarax -) 50 mg PO Q6H PRN PRN Reason: FOR ITCHING Last Admin: 05/05/18 22:18 Dose: 50 mg Lactulose (Cephulac (Oral Use)) 20 gm PO BID [facility] Last Admin: 05/06/18 09:20 Dose: 20 gm Multivitamins/Minerals/Vitamin C (Tab-A-Vit -) 1 tab PO DAILY [facility] Last Admin: 05/06/18 09:20 Dose: 1 tab Nicotine (Nicoderm Patch -) 7 mg TD DAILY [facility] Last Admin: 05/06/18 09:21 Dose: 7 mg Oxycodone HCl (Roxicodone -) 5 mg PO Q4H PRN PRN Reason: PAIN LEVEL 7 - 10 Last Admin: 05/04/18 23:32 Dose: 5 mg Polyethylene Glycol (Miralax (For Daily Use) -) 17 gm PO BID [facility] Last Admin: 05/06/18 09:23 Dose: 17 gm Tamsulosin HCl (Flomax -) 0.4 mg PO DAILY@0830 [facility] Last Admin: 05/06/18 08:45 Dose: 0.4 mg Thiamine HCl (Vitamin B1 -) 100 mg PO DAILY [facility] Last Admin: 05/06/18 09:20 Dose: 100 mg Tramadol HCl (Ultram -) 50 mg PO Q6H PRN PRN Reason: PAIN LEVEL 4 - 6 Last Admin: 05/05/18 22:19 Dose: 50 mg Triamcinolone Acetonide (Aristocort 0.5% Ointment -) 1 applic TP BID [facility] Last Admin: 05/06/18 09:21 Dose: 1 applic Constitutional: Yes: NAD Cardiovascular: Yes: Regular Rate and Rhythm Respiratory: Yes: Clear Gastrointestinal: Yes: Normal Bowel Sounds, Soft, Ascites Musculoskeletal: Yes: WNL Extremities: Yes: WNL Edema: Yes Edema: LUE: Trace, LLE: 1+, RLE: 1+ Peripheral Pulses WNL: Yes Neurological: Yes: Alert, Oriented Psychiatric: Yes: Alert, Oriented Labs: Laboratory Results - last 24 hr 05/02/18 05/06/18 05/06/18 14:20 06:00 06:00 WBC 3.2 L RBC 2.62 L Hgb 7.7 L Hct 22.4 L MCV 85.4 MCH 29.4 MCHC 34.4 RDW 15.4 Plt Count 61 L D MPV 11.0 Absolute Neuts (auto) 2.0 Neutrophils % 62.8 Lymphocytes % 17.3 Monocytes % 9.6 Eosinophils % 9.4 H Basophils % 0.9 Nucleated RBC % 0 Sodium 138 Potassium 4.8 Chloride 112 H Carbon Dioxide 17 L Anion Gap 9 BUN 55 H Creatinine 2.3 H Creat Clearance w eGFR 30.90 Random Glucose 86 Calcium 7.7 L Magnesium 2.0 D Total Bilirubin 0.4 AST 24 ALT 18 Alkaline Phosphatase 102 Total Protein 5.1 L Albumin 2.1 L Blood Type B POSITIVE Antibody Screen Negative Crossmatch See Detail Pleural Effusion c/w Hepatic Hydrothorax Liver Cirrhosis s/p TIPS Thrombocytopenia CKD HTN DM Hypercholesterolemia - BD TX - O2 as needed - Normal transfusion thresholds - lasix - VTE prophylaxis Dr Rob
[2018-05-06] MEDS: ALBUMIN HUMAN 25% 12.5 GM/50 ML VIAL IVPB SCH (11:20)
[2018-05-06] MEDS: ONDANSETRON 4 MG/2 ML VIAL IVPUSH PRN (14:18)
[2018-05-06] MEDS ORDERED: METOLAZONE 5 MG TABLET PO ONE (16:25)
--- NOTE | 2018-05-06 16:29 | PN ---
Progress Note, Physician History of Present Illness: Pt seen and examined at bedside. He is awake and alert. He feels that edema is starting to improve. - Current Medication List Current Medications: Active Medications Acetaminophen (Tylenol -) 650 mg PO Q6H PRN PRN Reason: PAIN LEVEL 1 - 3 Albuterol Sulfate (Ventolin 0.083% Nebulizer Soln -) 1 amp NEB Q4H PRN PRN Reason: SHORT OF BREATH/WHEEZING Albuterol/Ipratropium (Duoneb -) 1 amp NEB BID [facility] Last Admin: 05/06/18 09:54 Dose: 1 amp Amino Acids (Prosource No Carb Liquid Pkt) 30 ml PO BID@0800,1730 [facility] Last Admin: 05/06/18 08:45 Dose: 30 ml Amlodipine Besylate (Norvasc -) 10 mg PO DAILY [facility] Last Admin: 05/06/18 09:20 Dose: 10 mg Benzocaine/Menthol (Cepacol Lozenge -) 1 each MM PRN PRN PRN Reason: SORE THROAT Last Admin: 05/06/18 06:19 Dose: 1 each Clonidine (Catapres -) 0.1 mg PO BID [facility] Last Admin: 05/06/18 09:20 Dose: 0.1 mg Ferrous Sulfate (Feosol -) 325 mg PO BID [facility] Last Admin: 05/06/18 09:20 Dose: 325 mg Folic Acid (Folic Acid -) 1 mg PO DAILY [facility] Last Admin: 05/06/18 09:20 Dose: 1 mg Furosemide (Lasix Injection -) 40 mg IVPUSH BID@0600,1400 [facility] Last Admin: 05/06/18 14:18 Dose: 40 mg Furosemide (Lasix -) 40 mg PO BID@0600,1400 [facility] Guaifenesin (Mucinex Dm -) 1 tablet PO BID [facility] Last Admin: 05/06/18 09:21 Dose: 1 tablet Heparin Sodium (Porcine) (Heparin -) 5,000 unit SQ BID [facility] Last Admin: 05/06/18 09:20 Dose: 5,000 unit Hydroxyzine HCl (Atarax -) 50 mg PO Q6H PRN PRN Reason: FOR ITCHING Last Admin: 05/05/18 22:18 Dose: 50 mg Lactulose (Cephulac (Oral Use)) 20 gm PO BID [facility] Last Admin: 05/06/18 09:20 Dose: 20 gm Metolazone (Zaroxolyn -) 5 mg PO ONCE ONE Stop: 05/06/18 16:26 Multivitamins/Minerals/Vitamin C (Tab-A-Vit -) 1 tab PO DAILY [facility] Last Admin: 05/06/18 09:20 Dose: 1 tab Nicotine (Nicoderm Patch -) 7 mg TD DAILY [facility] Last Admin: 05/06/18 09:21 Dose: 7 mg Ondansetron HCl (Zofran Injection) 4 mg IVPUSH Q8H PRN PRN Reason: NAUSEA Last Admin: 05/06/18 14:18 Dose: 4 mg Oxycodone HCl (Roxicodone -) 5 mg PO Q4H PRN PRN Reason: PAIN LEVEL 7 - 10 Last Admin: 05/04/18 23:32 Dose: 5 mg Polyethylene Glycol (Miralax (For Daily Use) -) 17 gm PO BID [facility] Last Admin: 05/06/18 09:23 Dose: 17 gm Tamsulosin HCl (Flomax -) 0.4 mg PO DAILY@0830 [facility] Last Admin: 05/06/18 08:45 Dose: 0.4 mg Thiamine HCl (Vitamin B1 -) 100 mg PO DAILY [facility] Last Admin: 05/06/18 09:20 Dose: 100 mg Tramadol HCl (Ultram -) 50 mg PO Q6H PRN PRN Reason: PAIN LEVEL 4 - 6 Last Admin: 05/05/18 22:19 Dose: 50 mg Triamcinolone Acetonide (Aristocort 0.5% Ointment -) 1 applic TP BID [facility] Last Admin: 05/06/18 09:21 Dose: 1 applic - Objective Vital Signs: Vital Signs Temperature 98.9 F 05/06/18 10:00 Pulse Rate 72 05/06/18 10:00 Respiratory Rate 18 05/06/18 10:00 Blood Pressure 143/71 05/06/18 10:00 O2 Sat by Pulse Oximetry (%) 98 05/06/18 09:00 Constitutional: Yes: Calm Eyes: Yes: Conjunctiva Clear HENT: Yes: Atraumatic Cardiovascular: Yes: S1, S2 Respiratory: Yes: CTA Bilaterally Gastrointestinal: Yes: Soft Genitourinary: Yes: WNL Musculoskeletal: Yes: WNL Edema: Yes Edema: LLE: 1+, RLE: 1+ Neurological: Yes: Oriented Psychiatric: Yes: Oriented Labs: CBC, BMP 05/06/18 06:00 05/06/18 06:00 INR, PTT INR 1.06 (0.82-1.09) 04/30/18 13:30 Problem List - Problems (1) CKD (chronic kidney disease) Code(s): N18.9 - CHRONIC KIDNEY DISEASE, UNSPECIFIED (2) Hyperkalemia Code(s): E87.5 - HYPERKALEMIA (3) Liver cirrhosis Code(s): K74.60 - UNSPECIFIED CIRRHOSIS OF LIVER (4) Volume overload Code(s): E87.70 - FLUID OVERLOAD, UNSPECIFIED Qualifiers: Hypervolemia type: other Qualified Code(s): E87.79 - Other fluid overload Assessment/Plan Current Medications Generic Name Dose Route Start Last Admin Trade Name Freq PRN Reason Stop Dose Admin Acetaminophen 650 mg 05/04/18 11:06 Tylenol - PO Q6H PRN PAIN LEVEL 1 - 3 Albuterol Sulfate 1 amp 05/05/18 10:18 Ventolin 0.083% Nebulizer Soln - NEB Q4H PRN SHORT OF BREATH/WHEEZING Albuterol/Ipratropium 1 amp 05/05/18 22:00 05/06/18 09:54 Duoneb - NEB 1 amp BID [facility] Administration Amino Acids 30 ml 05/01/18 17:30 05/06/18 08:45 Prosource No Carb Liquid Pkt PO 30 ml BID@0800,1730 [facility] Administration Amlodipine Besylate 10 mg 05/01/18 11:00 05/06/18 09:20 Norvasc - PO 10 mg DAILY [facility] Administration Benzocaine/Menthol 1 each 05/03/18 10:43 05/06/18 06:19 Cepacol Lozenge - MM 1 each PRN PRN Administration SORE THROAT Clonidine 0.1 mg 05/01/18 22:00 05/06/18 09:20 Catapres - PO 0.1 mg BID [facility] Administration Ferrous Sulfate 325 mg 05/05/18 10:00 05/06/18 09:20 Feosol - PO 325 mg BID [facility] Administration Folic Acid 1 mg 05/01/18 11:00 05/06/18 09:20 Folic Acid - PO 1 mg DAILY [facility] Administration Furosemide 40 mg 05/04/18 06:00 05/06/18 14:18 Lasix Injection - IVPUSH 40 mg BID@0600,1400 [facility] Administration Furosemide 40 mg 05/07/18 06:00 Lasix - PO BID@0600,1400 [facility] Guaifenesin 1 tablet 05/03/18 10:45 05/06/18 09:21 Mucinex Dm - PO 1 tablet BID [facility] Administration Heparin Sodium (Porcine) 5,000 unit 05/03/18 10:45 05/06/18 09:20 Heparin - SQ 5,000 unit BID [facility] Administration Hydroxyzine HCl 50 mg 05/01/18 11:03 05/05/18 22:18 Atarax - PO 50 mg Q6H PRN Administration FOR ITCHING Lactulose 20 gm 05/04/18 11:00 05/06/18 09:20 Cephulac (Oral Use) PO 20 gm BID [facility] Administration Metolazone 5 mg 05/06/18 16:25 Zaroxolyn - PO 05/06/18 16:26 ONCE ONE Multivitamins/Minerals/Vitamin C 1 tab 05/01/18 11:00 05/06/18 09:20 Tab-A-Vit - PO 1 tab DAILY [facility] Administration Nicotine 7 mg 05/01/18 11:15 05/06/18 09:21 Nicoderm Patch - TD 7 mg DAILY [facility] Administration Ondansetron HCl 4 mg 05/06/18 14:05 05/06/18 14:18 Zofran Injection IVPUSH 4 mg Q8H PRN Administration NAUSEA Oxycodone HCl 5 mg 05/04/18 11:05 05/04/18 23:32 Roxicodone - PO 5 mg Q4H PRN Administration PAIN LEVEL 7 - 10 Polyethylene Glycol 17 gm 05/02/18 23:15 05/06/18 09:23 Miralax (For Daily Use) - PO 17 gm BID [facility] Administration Tamsulosin HCl 0.4 mg 05/01/18 11:22 05/06/18 08:45 Flomax - PO 0.4 mg DAILY@0830 [facility] Administration Thiamine HCl 100 mg 05/01/18 11:00 05/06/18 09:20 Vitamin B1 - PO 100 mg DAILY [facility] Administration Tramadol HCl 50 mg 05/04/18 11:07 05/05/18 22:19 Ultram - PO 50 mg Q6H PRN Administration PAIN LEVEL 4 - 6 Triamcinolone Acetonide 1 applic 05/01/18 11:15 05/06/18 09:21 Aristocort 0.5% Ointment - TP 1 applic BID [facility] Administration Impression 1. GRABIEL 2. etoh abuse 3. depression 4. anxiety 5. hx suicide attempts 6. obesity 7. HLD 8. liver cirrhosis 9. hyperkalemia 10. fluid overload 11. proteinuria 12. CKD Plan - can switch to PO lasix tomorrow - repeat labs in am - discussed with medical team - he will need outpt workup for proteinuria - potassium is improved Dr Sparks
[2018-05-06] MEDS ORDERED: METOLAZONE 2.5 MG TABLET (FP) PO ONE (17:15)
[2018-05-06] MEDS: traMADol HCL 50 MG TABLET PO PRN (21:49)
[2018-05-06] MEDS: hydrOXYzine HCL 25 MG TABLET (FP) PO PRN (21:49)
[2018-05-07] MEDS: ONDANSETRON 4 MG/2 ML VIAL IVPUSH PRN (06:00)
[2018-05-07] MEDS: FUROSEMIDE 40 MG TABLET (FP) PO SCH ×2 (06:00→14:44)
[2018-05-07] MEDS: FUROSEMIDE 40 MG/4 ML INJECTABLE VIAL IVPUSH SCH (06:00)
[2018-05-07 07:25] LABS: CHLORIDE 111 mmol/L (98-107); POTASSIUM 4.7 mmol/L (3.5-5.1); SODIUM 138 mmol/L (136-145)
[2018-05-07 07:40] LABS: ALBUMIN 2.4 g/dl (3.4-5.0); ALK PHOS 111 U/L (45-117); ANION GAP 8 (8-16); BILIRUBIN,TOTAL 0.4 mg/dL (0.2-1.0); BLOOD UREA NITROGEN 57 mg/dL (7-18); CALCIUM 7.9 mg/dL (8.5-10.1); CO2 19 mmol/L (21-32); CREATININE 2.5 mg/dL (0.7-1.3); GLUCOSE,RANDOM 95 mg/dL (74-106); SGOT/AST 36 U/L (15-37); SGPT/ALT 24 U/L (12-78); TOT PROT 5.5 g/dl (6.4-8.2)
[2018-05-07 07:55] LABS: BASO % 0.8 % (0-2.0); EOS % 7.8 % (0-4.5); HEMATOCRIT 23.7 % (35.4-49); HEMOGLOBIN 8.2 GM/dL (11.7-16.9); LYMPH % 13.6 % (8-40); MCH 29.3 pg (25.7-33.7); MCHC 34.5 g/dl (32.0-35.9); MEAN CELL VOLUME 84.9 fl (80-96); MEAN PLT VOLUME 11.3 fl (7.5-11.1); MONO % 8.8 % (3.8-10.2); PLATELET COUNT 72 K/MM3 (134-434); RBC 2.79 M/mm3 (4.00-5.60); RDW 15.8 % (11.9-15.9); WHITE BLOOD COUNT 3.6 K/mm3 (4.0-10.0)
[2018-05-07] MEDS: AMINO ACIDS/PROTEIN HYDROLYS 30 ML LIQUID.PKT PO SCH ×2 (08:22→17:46)
[2018-05-07] MEDS: TAMSULOSIN HCL 0.4 MG CAP.ER.24H (FP) PO SCH (08:22)
[2018-05-07] MEDS ORDERED: PT OWN MED DRAWER 7, Y5N ONE ×2 (09:07→16:11)
[2018-05-07] MEDS: cloNIDine HCL 0.1 MG TABLET PO SCH ×2 (09:10→21:33)
[2018-05-07] MEDS: LACTULOSE 20 GM/30 ML UDC (FOR ORAL USE ONLY) PO SCH ×2 (09:10→21:32)
[2018-05-07] MEDS: POLYETHYLENE GLYCOL 3350 119 GM BTL PO SCH ×2 (09:11→21:37)
[2018-05-07] MEDS: FERROUS SO4 325 MG TABLET (FP) PO SCH ×2 (09:11→21:33)
[2018-05-07] MEDS: FOLIC ACID 1 MG TABLET (FP) PO SCH (09:11)
[2018-05-07] MEDS: THIAMINE HCL 100 MG TABLET (FP) PO SCH (09:12)
[2018-05-07] MEDS: guaiFENesin/D-METHORPHAN HB 1 EACH TAB.ER.12H PO SCH ×2 (09:12→21:33)
[2018-05-07] MEDS: MULTIVITAMINS (DAILY MVI) TABLET (FP) PO SCH (09:12)
[2018-05-07] MEDS: amLODIPine BESYLATE 10 MG TABLET (FP) PO SCH (09:12)
[2018-05-07] MEDS: HEPARIN NA (PORCINE) 5,000 UNITS/ML 1ML VIAL SQ SCH ×2 (09:13→21:35)
[2018-05-07] MEDS: NICOTINE 7 MG/24 HOURS TOPICAL PATCH TD SCH (09:14)
[2018-05-07] MEDS: TRIAMCINOLONE ACET 0.5% OINT 15 GM TUBE TP SCH ×2 (09:15→22:41)
--- NOTE | 2018-05-07 09:28 | PN ---
Progress Note, Physician - Current Medication List Current Medications: Active Medications Acetaminophen (Tylenol -) 650 mg PO Q6H PRN PRN Reason: PAIN LEVEL 1 - 3 Albuterol Sulfate (Ventolin 0.083% Nebulizer Soln -) 1 amp NEB Q4H PRN PRN Reason: SHORT OF BREATH/WHEEZING Albuterol/Ipratropium (Duoneb -) 1 amp NEB BID [facility] Last Admin: 05/06/18 22:27 Dose: 1 amp Amino Acids (Prosource No Carb Liquid Pkt) 30 ml PO BID@0800,1730 [facility] Last Admin: 05/07/18 08:22 Dose: 30 ml Amlodipine Besylate (Norvasc -) 10 mg PO DAILY [facility] Last Admin: 05/07/18 09:12 Dose: 10 mg Benzocaine/Menthol (Cepacol Lozenge -) 1 each MM PRN PRN PRN Reason: SORE THROAT Last Admin: 05/06/18 06:19 Dose: 1 each Clonidine (Catapres -) 0.1 mg PO BID [facility] Last Admin: 05/07/18 09:10 Dose: 0.1 mg Ferrous Sulfate (Feosol -) 325 mg PO BID [facility] Last Admin: 05/07/18 09:11 Dose: 325 mg Folic Acid (Folic Acid -) 1 mg PO DAILY [facility] Last Admin: 05/07/18 09:11 Dose: 1 mg Furosemide (Lasix Injection -) 40 mg IVPUSH BID@0600,1400 [facility] Last Admin: 05/07/18 06:00 Dose: 40 mg Furosemide (Lasix -) 40 mg PO BID@0600,1400 [facility] Last Admin: 05/07/18 06:00 Dose: 40 mg Furosemide (Lasix Injection -) 40 mg IVPUSH ONCE ONE Stop: 05/07/18 09:26 Guaifenesin (Mucinex Dm -) 1 tablet PO BID [facility] Last Admin: 05/07/18 09:12 Dose: 1 tablet Heparin Sodium (Porcine) (Heparin -) 5,000 unit SQ BID [facility] Last Admin: 05/07/18 09:13 Dose: 5,000 unit Hydroxyzine HCl (Atarax -) 50 mg PO Q6H PRN PRN Reason: FOR ITCHING Last Admin: 05/06/18 21:49 Dose: 50 mg Lactulose (Cephulac (Oral Use)) 20 gm PO BID [facility] Last Admin: 05/07/18 09:10 Dose: 20 gm Multivitamins/Minerals/Vitamin C (Tab-A-Vit -) 1 tab PO DAILY [facility] Last Admin: 05/07/18 09:12 Dose: 1 tab Nicotine (Nicoderm Patch -) 7 mg TD DAILY [facility] Last Admin: 05/07/18 09:14 Dose: 7 mg Ondansetron HCl (Zofran Injection) 4 mg IVPUSH Q8H PRN PRN Reason: NAUSEA Last Admin: 05/07/18 06:00 Dose: 4 mg Oxycodone HCl (Roxicodone -) 5 mg PO Q4H PRN PRN Reason: PAIN LEVEL 7 - 10 Last Admin: 05/04/18 23:32 Dose: 5 mg Polyethylene Glycol (Miralax (For Daily Use) -) 17 gm PO BID [facility] Last Admin: 05/07/18 09:11 Dose: Not Given Tamsulosin HCl (Flomax -) 0.4 mg PO DAILY@0830 [facility] Last Admin: 05/07/18 08:22 Dose: 0.4 mg Thiamine HCl (Vitamin B1 -) 100 mg PO DAILY [facility] Last Admin: 05/07/18 09:12 Dose: 100 mg Tramadol HCl (Ultram -) 50 mg PO Q6H PRN PRN Reason: PAIN LEVEL 4 - 6 Last Admin: 05/06/18 21:49 Dose: 50 mg Triamcinolone Acetonide (Aristocort 0.5% Ointment -) 1 applic TP BID [facility] Last Admin: 05/07/18 09:15 Dose: 1 applic - Objective Vital Signs: Vital Signs Temperature 97.9 F 05/07/18 06:49 Pulse Rate 66 05/07/18 06:49 Respiratory Rate 20 05/07/18 06:49 Blood Pressure 126/68 05/07/18 06:49 O2 Sat by Pulse Oximetry (%) 100 05/06/18 21:00 Labs: CBC, BMP 05/07/18 06:30 05/07/18 06:30 INR, PTT INR 1.06 (0.82-1.09) 04/30/18 13:30 Problem List - Problems (1) Anemia Code(s): D64.9 - ANEMIA, UNSPECIFIED (2) CHF (congestive heart failure) Code(s): I50.9 - HEART FAILURE, UNSPECIFIED (3) CKD (chronic kidney disease) Code(s): N18.9 - CHRONIC KIDNEY DISEASE, UNSPECIFIED (4) Hyperkalemia Code(s): E87.5 - HYPERKALEMIA (5) Liver cirrhosis Code(s): K74.60 - UNSPECIFIED CIRRHOSIS OF LIVER Assessment/Plan - Problems (1) Anemia Assessment/Plan: -hematology consult -H/H mild drop -labs: B12, folate, thyroid profile-normal -iron low -Venofer -stool OB negative -Transfuse 1unit Code(s): D64.9 - ANEMIA, UNSPECIFIED (2) Hyperkalemia Assessment/Plan: -nephrology consult -monitor trend -low potassium diet -Spironolactone on hold Code(s): E87.5 - HYPERKALEMIA (3) Liver cirrhosis Assessment/Plan: -GI consult -monitor labs Code(s): K74.60 - UNSPECIFIED CIRRHOSIS OF LIVER (4) Acute kidney injury Assessment/Plan: -nephrology consult Code(s): N17.9 - ACUTE KIDNEY FAILURE, UNSPECIFIED (5) Alcoholic hepatitis Code(s): K70.10 - ALCOHOLIC HEPATITIS WITHOUT ASCITES (6) Pleural effusion Assessment/Plan: -pulmonary consult -cxr Code(s): J90 - PLEURAL EFFUSION, NOT ELSEWHERE CLASSIFIED (7) Volume overload Assessment/Plan: 2/2 to third spacing due to liver cirrhosis and CHF -lasix 40 mg IVP daily -low sodium diet -hold spironolactone until K+ improves Code(s): E87.70 - FLUID OVERLOAD, UNSPECIFIED Qualifiers: Hypervolemia type: other Qualified Code(s): E87.79 - Other fluid overload
[2018-05-07] MEDS ORDERED: FUROSEMIDE 40 MG/4 ML INJECTABLE VIAL IVPUSH ONE (10:15)
[2018-05-07] MEDS: ALBUTEROL SO4 2.5/IPRATROPIUM 0.5 INH SOL 3 ML VIAL.NEB. NEB SCH ×2 (10:33→21:17)
--- NOTE | 2018-05-07 10:54 | PN ---
Progress Note (short form) - Note Progress Note: Breathing feels overall better. No CP. No acute events overnight. Intake & Output 05/04/18 05/05/18 05/06/18 05/07/18 23:59 23:59 23:59 23:59 Intake Total 157 283 8871 200 Balance 114 776 8617 200 Weight 231 lb 231 lb 6.4 oz Last Vital Signs Temp Pulse Resp BP Pulse Ox 97.9 F 66 20 126/68 100 05/07/18 06:49 05/07/18 06:49 05/07/18 06:49 05/07/18 06:49 05/06/18 21:00 Active Medications Acetaminophen (Tylenol -) 650 mg PO Q6H PRN PRN Reason: PAIN LEVEL 1 - 3 Albuterol Sulfate (Ventolin 0.083% Nebulizer Soln -) 1 amp NEB Q4H PRN PRN Reason: SHORT OF BREATH/WHEEZING Albuterol/Ipratropium (Duoneb -) 1 amp NEB BID [facility] Last Admin: 05/06/18 22:27 Dose: 1 amp Amino Acids (Prosource No Carb Liquid Pkt) 30 ml PO BID@0800,1730 [facility] Last Admin: 05/07/18 08:22 Dose: 30 ml Amlodipine Besylate (Norvasc -) 10 mg PO DAILY [facility] Last Admin: 05/07/18 09:12 Dose: 10 mg Benzocaine/Menthol (Cepacol Lozenge -) 1 each MM PRN PRN PRN Reason: SORE THROAT Last Admin: 05/06/18 06:19 Dose: 1 each Clonidine (Catapres -) 0.1 mg PO BID [facility] Last Admin: 05/07/18 09:10 Dose: 0.1 mg Ferrous Sulfate (Feosol -) 325 mg PO BID [facility] Last Admin: 05/07/18 09:11 Dose: 325 mg Folic Acid (Folic Acid -) 1 mg PO DAILY [facility] Last Admin: 05/07/18 09:11 Dose: 1 mg Furosemide (Lasix Injection -) 40 mg IVPUSH BID@0600,1400 [facility] Last Admin: 05/07/18 06:00 Dose: 40 mg Furosemide (Lasix -) 40 mg PO BID@0600,1400 [facility] Last Admin: 05/07/18 06:00 Dose: 40 mg Guaifenesin (Mucinex Dm -) 1 tablet PO BID [facility] Last Admin: 05/07/18 09:12 Dose: 1 tablet Heparin Sodium (Porcine) (Heparin -) 5,000 unit SQ BID [facility] Last Admin: 05/07/18 09:13 Dose: 5,000 unit Hydroxyzine HCl (Atarax -) 50 mg PO Q6H PRN PRN Reason: FOR ITCHING Last Admin: 05/06/18 21:49 Dose: 50 mg Lactulose (Cephulac (Oral Use)) 20 gm PO BID [facility] Last Admin: 05/07/18 09:10 Dose: 20 gm Multivitamins/Minerals/Vitamin C (Tab-A-Vit -) 1 tab PO DAILY [facility] Last Admin: 05/07/18 09:12 Dose: 1 tab Nicotine (Nicoderm Patch -) 7 mg TD DAILY [facility] Last Admin: 05/07/18 09:14 Dose: 7 mg Ondansetron HCl (Zofran Injection) 4 mg IVPUSH Q8H PRN PRN Reason: NAUSEA Last Admin: 05/07/18 06:00 Dose: 4 mg Oxycodone HCl (Roxicodone -) 5 mg PO Q4H PRN PRN Reason: PAIN LEVEL 7 - 10 Last Admin: 05/04/18 23:32 Dose: 5 mg Polyethylene Glycol (Miralax (For Daily Use) -) 17 gm PO BID [facility] Last Admin: 05/07/18 09:11 Dose: Not Given Tamsulosin HCl (Flomax -) 0.4 mg PO DAILY@0830 [facility] Last Admin: 05/07/18 08:22 Dose: 0.4 mg Thiamine HCl (Vitamin B1 -) 100 mg PO DAILY [facility] Last Admin: 05/07/18 09:12 Dose: 100 mg Tramadol HCl (Ultram -) 50 mg PO Q6H PRN PRN Reason: PAIN LEVEL 4 - 6 Last Admin: 05/06/18 21:49 Dose: 50 mg Triamcinolone Acetonide (Aristocort 0.5% Ointment -) 1 applic TP BID [facility] Last Admin: 05/07/18 09:15 Dose: 1 applic Constitutional: Yes: NAD Cardiovascular: Yes: Regular Rate and Rhythm Respiratory: Yes: Clear Gastrointestinal: Yes: Normal Bowel Sounds, Soft, Ascites Musculoskeletal: Yes: WNL Extremities: Yes: WNL Edema: Yes Edema: LUE: Trace, LLE: 1+, RLE: 1+ Peripheral Pulses WNL: Yes Neurological: Yes: Alert, Oriented Psychiatric: Yes: Alert, Oriented Labs: Laboratory Results - last 24 hr 05/07/18 05/07/18 05/07/18 06:30 06:30 09:50 WBC 3.6 L RBC 2.79 L Hgb 8.2 L Hct 23.7 L MCV 84.9 MCH 29.3 MCHC 34.5 RDW 15.8 Plt Count 72 L MPV 11.3 H Absolute Neuts (auto) 2.5 Neutrophils % 69.0 Lymphocytes % 13.6 D Monocytes % 8.8 Eosinophils % 7.8 H Basophils % 0.8 Nucleated RBC % 0 Sodium 138 Potassium 4.7 Chloride 111 H Carbon Dioxide 19 L Anion Gap 8 BUN 57 H Creatinine 2.5 H Creat Clearance w eGFR 28.07 Random Glucose 95 Calcium 7.9 L Total Bilirubin 0.4 AST 36 D ALT 24 D Alkaline Phosphatase 111 Total Protein 5.5 L Albumin 2.4 L Crossmatch See Detail Pleural Effusion c/w Hepatic Hydrothorax Liver Cirrhosis s/p TIPS Thrombocytopenia CKD HTN DM Hypercholesterolemia - BD TX - O2 as needed - Normal transfusion thresholds - lasix - VTE prophylaxis Dr Rob
--- NOTE | 2018-05-07 13:11 | PN ---
Progress Note, Physician History of Present Illness: Pt seen and examined at bedside. He is awake and alert. He feels that his edema is improved. He is eager to go home. - Current Medication List Current Medications: Active Medications Acetaminophen (Tylenol -) 650 mg PO Q6H PRN PRN Reason: PAIN LEVEL 1 - 3 Albuterol Sulfate (Ventolin 0.083% Nebulizer Soln -) 1 amp NEB Q4H PRN PRN Reason: SHORT OF BREATH/WHEEZING Albuterol/Ipratropium (Duoneb -) 1 amp NEB BID [facility] Last Admin: 05/07/18 10:33 Dose: 1 amp Amino Acids (Prosource No Carb Liquid Pkt) 30 ml PO BID@0800,1730 [facility] Last Admin: 05/07/18 08:22 Dose: 30 ml Amlodipine Besylate (Norvasc -) 10 mg PO DAILY [facility] Last Admin: 05/07/18 09:12 Dose: 10 mg Benzocaine/Menthol (Cepacol Lozenge -) 1 each MM PRN PRN PRN Reason: SORE THROAT Last Admin: 05/06/18 06:19 Dose: 1 each Clonidine (Catapres -) 0.1 mg PO BID [facility] Last Admin: 05/07/18 09:10 Dose: 0.1 mg Ferrous Sulfate (Feosol -) 325 mg PO BID [facility] Last Admin: 05/07/18 09:11 Dose: 325 mg Folic Acid (Folic Acid -) 1 mg PO DAILY [facility] Last Admin: 05/07/18 09:11 Dose: 1 mg Furosemide (Lasix Injection -) 40 mg IVPUSH BID@0600,1400 [facility] Last Admin: 05/07/18 06:00 Dose: 40 mg Furosemide (Lasix -) 40 mg PO BID@0600,1400 [facility] Last Admin: 05/07/18 06:00 Dose: 40 mg Guaifenesin (Mucinex Dm -) 1 tablet PO BID [facility] Last Admin: 05/07/18 09:12 Dose: 1 tablet Heparin Sodium (Porcine) (Heparin -) 5,000 unit SQ BID [facility] Last Admin: 05/07/18 09:13 Dose: 5,000 unit Hydroxyzine HCl (Atarax -) 50 mg PO Q6H PRN PRN Reason: FOR ITCHING Last Admin: 05/06/18 21:49 Dose: 50 mg Lactulose (Cephulac (Oral Use)) 20 gm PO BID [facility] Last Admin: 05/07/18 09:10 Dose: 20 gm Multivitamins/Minerals/Vitamin C (Tab-A-Vit -) 1 tab PO DAILY [facility] Last Admin: 05/07/18 09:12 Dose: 1 tab Nicotine (Nicoderm Patch -) 7 mg TD DAILY [facility] Last Admin: 05/07/18 09:14 Dose: 7 mg Ondansetron HCl (Zofran Injection) 4 mg IVPUSH Q8H PRN PRN Reason: NAUSEA Last Admin: 05/07/18 06:00 Dose: 4 mg Oxycodone HCl (Roxicodone -) 5 mg PO Q4H PRN PRN Reason: PAIN LEVEL 7 - 10 Last Admin: 05/04/18 23:32 Dose: 5 mg Polyethylene Glycol (Miralax (For Daily Use) -) 17 gm PO BID [facility] Last Admin: 05/07/18 09:11 Dose: Not Given Tamsulosin HCl (Flomax -) 0.4 mg PO DAILY@0830 [facility] Last Admin: 05/07/18 08:22 Dose: 0.4 mg Thiamine HCl (Vitamin B1 -) 100 mg PO DAILY [facility] Last Admin: 05/07/18 09:12 Dose: 100 mg Tramadol HCl (Ultram -) 50 mg PO Q6H PRN PRN Reason: PAIN LEVEL 4 - 6 Last Admin: 05/06/18 21:49 Dose: 50 mg Triamcinolone Acetonide (Aristocort 0.5% Ointment -) 1 applic TP BID [facility] Last Admin: 05/07/18 09:15 Dose: 1 applic - Objective Vital Signs: Vital Signs Temperature 99.7 F H 05/07/18 07:55 Pulse Rate 68 05/07/18 07:55 Respiratory Rate 18 05/07/18 07:55 Blood Pressure 121/63 05/07/18 07:55 O2 Sat by Pulse Oximetry (%) 100 05/06/18 21:00 Constitutional: Yes: Calm Eyes: Yes: Conjunctiva Clear HENT: Yes: Atraumatic Neck: Yes: Supple Cardiovascular: Yes: S1, S2 Respiratory: Yes: CTA Bilaterally Gastrointestinal: Yes: Soft Genitourinary: Yes: WNL Musculoskeletal: Yes: WNL Edema: Yes Edema: LLE: 1+, RLE: 1+ Neurological: Yes: Oriented Psychiatric: Yes: Oriented Labs: CBC, BMP 05/07/18 06:30 05/07/18 06:30 INR, PTT INR 1.06 (0.82-1.09) 04/30/18 13:30 Problem List - Problems (1) CKD (chronic kidney disease) Code(s): N18.9 - CHRONIC KIDNEY DISEASE, UNSPECIFIED (2) Hyperkalemia Code(s): E87.5 - HYPERKALEMIA (3) Liver cirrhosis Code(s): K74.60 - UNSPECIFIED CIRRHOSIS OF LIVER (4) Volume overload Code(s): E87.70 - FLUID OVERLOAD, UNSPECIFIED Qualifiers: Hypervolemia type: other Qualified Code(s): E87.79 - Other fluid overload Assessment/Plan Current Medications Generic Name Dose Route Start Last Admin Trade Name Freq PRN Reason Stop Dose Admin Acetaminophen 650 mg 05/04/18 11:06 Tylenol - PO Q6H PRN PAIN LEVEL 1 - 3 Albuterol Sulfate 1 amp 05/05/18 10:18 Ventolin 0.083% Nebulizer Soln - NEB Q4H PRN SHORT OF BREATH/WHEEZING Albuterol/Ipratropium 1 amp 05/05/18 22:00 05/07/18 10:33 Duoneb - NEB 1 amp BID DEV Administration Amino Acids 30 ml 05/01/18 17:30 05/07/18 08:22 Prosource No Carb Liquid Pkt PO 30 ml BID@0800,1730 DEV Administration Amlodipine Besylate 10 mg 05/01/18 11:00 05/07/18 09:12 Norvasc - PO 10 mg DAILY DEV Administration Benzocaine/Menthol 1 each 05/03/18 10:43 05/06/18 06:19 Cepacol Lozenge - MM 1 each PRN PRN Administration SORE THROAT Clonidine 0.1 mg 05/01/18 22:00 05/07/18 09:10 Catapres - PO 0.1 mg BID DEV Administration Ferrous Sulfate 325 mg 05/05/18 10:00 05/07/18 09:11 Feosol - PO 325 mg BID DEV Administration Folic Acid 1 mg 05/01/18 11:00 05/07/18 09:11 Folic Acid - PO 1 mg DAILY DEV Administration Furosemide 40 mg 06/08/18 06:00 05/07/18 06:00 Lasix Injection - IVPUSH 40 mg BID@0600,1400 DEV Administration Furosemide 40 mg 05/07/18 06:00 05/07/18 06:00 Lasix - PO 40 mg BID@0600,1400 DEV Administration Guaifenesin 1 tablet 05/03/18 10:45 05/07/18 09:12 Mucinex Dm - PO 1 tablet BID DEV Administration Heparin Sodium (Porcine) 5,000 unit 05/03/18 10:45 05/07/18 09:13 Heparin - SQ 5,000 unit BID DEV Administration Hydroxyzine HCl 50 mg 05/01/18 11:03 05/06/18 21:49 Atarax - PO 50 mg Q6H PRN Administration FOR ITCHING Lactulose 20 gm 05/04/18 11:00 05/07/18 09:10 Cephulac (Oral Use) PO 20 gm BID DEV Administration Multivitamins/Minerals/Vitamin C 1 tab 05/01/18 11:00 05/07/18 09:12 Tab-A-Vit - PO 1 tab DAILY DEV Administration Nicotine 7 mg 05/01/18 11:15 05/07/18 09:14 Nicoderm Patch - TD 7 mg DAILY [facility] Administration Ondansetron HCl 4 mg 05/06/18 14:05 05/07/18 06:00 Zofran Injection IVPUSH 4 mg Q8H PRN Administration NAUSEA Oxycodone HCl 5 mg 05/04/18 11:05 05/04/18 23:32 Roxicodone - PO 5 mg Q4H PRN Administration PAIN LEVEL 7 - 10 Polyethylene Glycol 17 gm 05/02/18 23:15 05/07/18 09:11 Miralax (For Daily Use) - PO Not Given BID [facility] Tamsulosin HCl 0.4 mg 05/01/18 11:22 05/07/18 08:22 Flomax - PO 0.4 mg DAILY@0830 DEV Administration Thiamine HCl 100 mg 05/01/18 11:00 05/07/18 09:12 Vitamin B1 - PO 100 mg DAILY DEV Administration Tramadol HCl 50 mg 05/04/18 11:07 05/06/18 21:49 Ultram - PO 50 mg Q6H PRN Administration PAIN LEVEL 4 - 6 Triamcinolone Acetonide 1 applic 05/01/18 11:15 05/07/18 09:15 Aristocort 0.5% Ointment - TP 1 applic BID DEV Administration Impression 1. GRABIEL 2. etoh abuse 3. depression 4. anxiety 5. hx suicide attempts 6. obesity 7. HLD 8. liver cirrhosis 9. hyperkalemia 10. fluid overload 11. proteinuria 12. CKD Plan - cont with PO lasix - will hold off spironolactone until potassium is in a safer range - he will need outpt workup for proteinuria - potassium is improved Dr Sparks
--- NOTE | 2018-05-07 14:55 | PN ---
Progress Note, Physician History of Present Illness: Clinically the same. No stigmata of ongoing GI blood loss. Receiving PRBC - Current Medication List Current Medications: Active Medications Acetaminophen (Tylenol -) 650 mg PO Q6H PRN PRN Reason: PAIN LEVEL 1 - 3 Albuterol Sulfate (Ventolin 0.083% Nebulizer Soln -) 1 amp NEB Q4H PRN PRN Reason: SHORT OF BREATH/WHEEZING Albuterol/Ipratropium (Duoneb -) 1 amp NEB BID [facility] Last Admin: 05/07/18 10:33 Dose: 1 amp Amino Acids (Prosource No Carb Liquid Pkt) 30 ml PO BID@0800,1730 [facility] Last Admin: 05/07/18 08:22 Dose: 30 ml Amlodipine Besylate (Norvasc -) 10 mg PO DAILY [facility] Last Admin: 05/07/18 09:12 Dose: 10 mg Benzocaine/Menthol (Cepacol Lozenge -) 1 each MM PRN PRN PRN Reason: SORE THROAT Last Admin: 05/06/18 06:19 Dose: 1 each Clonidine (Catapres -) 0.1 mg PO BID [facility] Last Admin: 05/07/18 09:10 Dose: 0.1 mg Ferrous Sulfate (Feosol -) 325 mg PO BID [facility] Last Admin: 05/07/18 09:11 Dose: 325 mg Folic Acid (Folic Acid -) 1 mg PO DAILY [facility] Last Admin: 05/07/18 09:11 Dose: 1 mg Furosemide (Lasix -) 40 mg PO BID@0600,1400 [facility] Last Admin: 05/07/18 14:44 Dose: 40 mg Guaifenesin (Mucinex Dm -) 1 tablet PO BID [facility] Last Admin: 05/07/18 09:12 Dose: 1 tablet Heparin Sodium (Porcine) (Heparin -) 5,000 unit SQ BID [facility] Last Admin: 05/07/18 09:13 Dose: 5,000 unit Hydroxyzine HCl (Atarax -) 50 mg PO Q6H PRN PRN Reason: FOR ITCHING Last Admin: 05/06/18 21:49 Dose: 50 mg Lactulose (Cephulac (Oral Use)) 20 gm PO BID [facility] Last Admin: 05/07/18 09:10 Dose: 20 gm Multivitamins/Minerals/Vitamin C (Tab-A-Vit -) 1 tab PO DAILY [facility] Last Admin: 05/07/18 09:12 Dose: 1 tab Nicotine (Nicoderm Patch -) 7 mg TD DAILY [facility] Last Admin: 05/07/18 09:14 Dose: 7 mg Ondansetron HCl (Zofran Injection) 4 mg IVPUSH Q8H PRN PRN Reason: NAUSEA Last Admin: 05/07/18 06:00 Dose: 4 mg Oxycodone HCl (Roxicodone -) 5 mg PO Q4H PRN PRN Reason: PAIN LEVEL 7 - 10 Last Admin: 05/04/18 23:32 Dose: 5 mg Polyethylene Glycol (Miralax (For Daily Use) -) 17 gm PO BID [facility] Last Admin: 05/07/18 09:11 Dose: Not Given Tamsulosin HCl (Flomax -) 0.4 mg PO DAILY@0830 [facility] Last Admin: 05/07/18 08:22 Dose: 0.4 mg Thiamine HCl (Vitamin B1 -) 100 mg PO DAILY [facility] Last Admin: 05/07/18 09:12 Dose: 100 mg Tramadol HCl (Ultram -) 50 mg PO Q6H PRN PRN Reason: PAIN LEVEL 4 - 6 Last Admin: 05/06/18 21:49 Dose: 50 mg Triamcinolone Acetonide (Aristocort 0.5% Ointment -) 1 applic TP BID [facility] Last Admin: 05/07/18 09:15 Dose: 1 applic - Objective Vital Signs: Vital Signs Temperature 99.7 F H 05/07/18 07:55 Pulse Rate 68 05/07/18 07:55 Respiratory Rate 18 05/07/18 07:55 Blood Pressure 121/63 05/07/18 07:55 O2 Sat by Pulse Oximetry (%) 100 05/06/18 21:00 Constitutional: Yes: Well Nourished, No Distress, Calm Eyes: Yes: Conjunctiva Clear. No: Sclera Icterus Neck: Yes: Supple Respiratory: Yes: Regular Gastrointestinal: Yes: Normal Bowel Sounds, Soft. No: Ascites, Distention, Melena, Rectal Bleeding, Tenderness, Epigastrium, Tenderness, Rebound, Vomiting Neurological: Yes: Alert, Oriented. No: Asterixis, Confusion, Lethargy Labs: CBC, BMP 05/07/18 06:30 05/07/18 06:30 INR, PTT INR 1.06 (0.82-1.09) 04/30/18 13:30 Laboratory Last Values WBC 3.6 K/mm3 (4.0-10.0) L 05/07/18 06:30 RBC 2.79 M/mm3 (4.00-5.60) L 05/07/18 06:30 Hgb 8.2 GM/dL (11.7-16.9) L 05/07/18 06:30 Hct 23.7 % (35.4-49) L 05/07/18 06:30 MCV 84.9 fl (80-96) 05/07/18 06:30 MCH 29.3 pg (25.7-33.7) 05/07/18 06:30 MCHC 34.5 g/dl (32.0-35.9) 05/07/18 06:30 RDW 15.8 % (11.9-15.9) 05/07/18 06:30 Plt Count 72 K/MM3 (134-434) L 05/07/18 06:30 MPV 11.3 fl (7.5-11.1) H 05/07/18 06:30 Absolute Neuts (auto) 2.5 # 05/07/18 06:30 Neutrophils % 69.0 % (42.8-82.8) 05/07/18 06:30 Lymphocytes % 13.6 % (8-40) D 05/07/18 06:30 Monocytes % 8.8 % (3.8-10.2) 05/07/18 06:30 Eosinophils % 7.8 % (0-4.5) H 05/07/18 06:30 Basophils % 0.8 % (0-2.0) 05/07/18 06:30 Nucleated RBC % 0 % (0-0) 05/07/18 06:30 Retic Count 2.43 % (0.5-1.5) H 05/02/18 06:00 PT with INR 12.00 SEC (9.7-13.0) 04/30/18 13:30 INR 1.06 (0.82-1.09) 04/30/18 13:30 Sodium 138 mmol/L (136-145) 05/07/18 06:30 Potassium 4.7 mmol/L (3.5-5.1) 05/07/18 06:30 Chloride 111 mmol/L (98-107) H 05/07/18 06:30 Carbon Dioxide 19 mmol/L (21-32) L 05/07/18 06:30 Anion Gap 8 (8-16) 05/07/18 06:30 BUN 57 mg/dL (7-18) H 05/07/18 06:30 Creatinine 2.5 mg/dL (0.7-1.3) H 05/07/18 06:30 Creat Clearance w eGFR 28.07 (>60) 05/07/18 06:30 Random Glucose 95 mg/dL (74-106) 05/07/18 06:30 Calcium 7.9 mg/dL (8.5-10.1) L 05/07/18 06:30 Magnesium 2.0 mg/dL (1.8-2.4) D 05/06/18 06:00 Iron 22 ug/dL (38-169) L 05/02/18 06:00 TIBC 207 ug/dL (250-450) L 05/02/18 06:00 Iron Saturation 11 % (15-55) L 05/02/18 06:00 Ferritin 31.2 ng/ml (16.4-293.9) 05/02/18 06:00 Total Bilirubin 0.4 mg/dL (0.2-1.0) 05/07/18 06:30 AST 36 U/L (15-37) D 05/07/18 06:30 ALT 24 U/L (12-78) D 05/07/18 06:30 Alkaline Phosphatase 111 U/L (45-117) 05/07/18 06:30 LD Total 252 U/L (87-241) H 05/02/18 06:00 Creatine Kinase 276 IU/L (39-308) 04/30/18 13:30 Creatine Kinase Index 1.2 % (0.0-5.0) 04/30/18 13:30 CK-MB (CK-2) 3.35 ng/mL (0.5-3.6) 04/30/18 13:30 Troponin I < 0.02 ng/ml (0.00-0.05) 04/30/18 13:30 B-Natriuretic Peptide 881.06 pg/ml (5-125) H 04/30/18 13:30 Total Protein 5.5 g/dl (6.4-8.2) L 05/07/18 06:30 Albumin 2.4 g/dl (3.4-5.0) L 05/07/18 06:30 Beta Globulins 1.1 g/dL (0.7-1.3) 05/02/18 06:00 Triglycerides Cancelled 05/03/18 17:30 Total Amylase Cancelled 05/02/18 08:30 Lipase Cancelled 05/02/18 08:30 Vitamin B12 673 pg/ml (180-914) D 05/02/18 06:00 Serum Folate 20 ng/ml (3.1-17.5) H 05/02/18 06:00 Urine Color Straw 05/02/18 20:20 Urine Appearance Clear 05/02/18 20:20 Urine pH 5.0 (5.0-8.0) 05/02/18 20:[address] 1.009 (1.001-1.035) 05/02/18 20:20 Urine Protein 2+ (NEGATIVE) H 05/02/18 20:20 Urine Glucose (UA) 1+ (NEGATIVE) H 05/02/18 20:20 Urine Ketones Negative (NEGATIVE) 05/02/18 20:20 Urine Blood 1+ (NEGATIVE) H 05/02/18 20:20 Urine Nitrite Negative (NEGATIVE) 05/02/18 20:20 Urine Bilirubin Negative (<2.0 mg/dL) 05/02/18 20:20 Urine Urobilinogen Negative mg/dL (0.2-1.0) 05/02/18 20:20 Ur Leukocyte Esterase Negative (NEGATIVE) 05/02/18 20:20 Urine WBC (Auto) 1 /hpf (3-5) 05/02/18 20:20 Urine RBC (Auto) 6 /hpf (0-3) 05/02/18 20:20 Ur Epithelial Cells Rare /HPF (FEW) 04/30/18 14:30 Hyaline Casts 9 /lpf 04/30/18 14:30 Granular Casts 3 /lpf 04/30/18 14:30 Urine Mucus Rare 05/02/18 20:20 Pleural Fluid Source Pleural fluid 05/03/18 17:30 Pleural Color Colorless 05/03/18 17:30 Pleural Appearance Cloudy 05/03/18 17:30 Pleural WBC 166 /mm3 05/03/18 17:30 Pleural RBC 744 /mm3 05/03/18 17:30 Pleural Neutrophils 20 % 05/03/18 17:30 Pleural Lymphocytes 14 % 05/03/18 17:30 Pleural Monocytes 2 % 05/03/18 17:30 Pleural Macrophages 61 % 05/03/18 17:30 Pleural Mesothelial 5 % 05/03/18 17:30 Pleural Total Protein 0.585 05/03/18 17:30 Pleural Albumin 0 g/dL 05/03/18 17:30 Pleural LDH 46.018 05/03/18 17:30 Pleural Glucose 126.381 05/03/18 17:30 Pleural Amylase 23.351 05/03/18 17:30 Pleural Triglycerides 57 MG.DL 05/03/18 17:30 Stool Occult Blood Negative (NEGATIVE) 05/04/18 16:00 KRYSTYNA & SPEP Interp (.) 05/02/18 06:00 Total Protein (KRYSTYNA) 4.9 g/dL (6.0-8.5) L 05/02/18 06:00 Albumin (KRYSTYNA) 2.0 g/dL (2.9-4.4) L 05/02/18 06:00 Albumin/Globulin (KRYSTYNA) 0.7 (0.7-1.7) 05/02/18 06:00 Idhya-7-Dfdckfpvk KRYSTYNA 0.2 g/dL (0.0-0.4) 05/02/18 06:00 Esega-4-Mopcmdppq KRYSTYNA 0.6 g/dL (0.4-1.0) 05/02/18 06:00 Gamma Globulins (KRYSTYNA) 1.0 g/dL (0.4-1.8) 05/02/18 06:00 KRYSTYNA M-Jude Not observed g/dL (Not Observed) 05/02/18 06:00 KRYSTYNA Comments (.) 05/02/18 06:00 IEP IgG 863 mg/dL (700-1600) 05/02/18 06:00 IEP IgA 544 mg/dL (90-386) H 05/02/18 06:00 IEP IgM 83 mg/dL (20-172) 05/02/18 06:00 Blood Type B POSITIVE 05/07/18 09:50 Antibody Screen Negative 05/07/18 09:50 Crossmatch See Detail 05/07/18 09:50 Problem List - Problems (1) Liver cirrhosis Code(s): K74.60 - UNSPECIFIED CIRRHOSIS OF LIVER (2) Hyperkalemia Code(s): E87.5 - HYPERKALEMIA (3) Alcohol dependence in controlled environment Code(s): F10.20 - ALCOHOL DEPENDENCE, UNCOMPLICATED (4) Alcohol dependence with uncomplicated withdrawal Code(s): F10.230 - ALCOHOL DEPENDENCE WITH WITHDRAWAL, UNCOMPLICATED Assessment/Plan Compensated liver cirrhosis. No stigmata of GI bleeding. TIPS. No ascites, encephalopathy, SBP, or HRS. Follow up with GI as OP in 1-2 weeks.
[2018-05-07] MEDS ORDERED: FUROSEMIDE 40 MG/4 ML INJECTABLE VIAL ONE (17:42)
[2018-05-08 00:02] VITALS: TEMP 97.5
[2018-05-08] MEDS: FUROSEMIDE 40 MG TABLET (FP) PO SCH (06:06)
[2018-05-08] MEDS ORDERED: ALBUTEROL SO4 2.5/IPRATROPIUM 0.5 INH SOL 3 ML VIAL.NEB. NEB SCH (08:00)
[2018-05-08] MEDS: TAMSULOSIN HCL 0.4 MG CAP.ER.24H (FP) PO SCH (08:19)
[2018-05-08] MEDS: AMINO ACIDS/PROTEIN HYDROLYS 30 ML LIQUID.PKT PO SCH (08:19)
[2018-05-08] MEDS: TRIAMCINOLONE ACET 0.5% OINT 15 GM TUBE TP SCH (09:46)
[2018-05-08] MEDS ORDERED: PT OWN MED DRAWER 7, Y5N ONE (09:50)
[2018-05-08] MEDS: cloNIDine HCL 0.1 MG TABLET PO SCH (09:51)
[2018-05-08] MEDS: FERROUS SO4 325 MG TABLET (FP) PO SCH (09:51)
[2018-05-08] MEDS: MULTIVITAMINS (DAILY MVI) TABLET (FP) PO SCH (09:51)
[2018-05-08] MEDS: hydrOXYzine HCL 25 MG TABLET (FP) PO PRN (09:51)
[2018-05-08] MEDS: amLODIPine BESYLATE 10 MG TABLET (FP) PO SCH (09:51)
[2018-05-08] MEDS: THIAMINE HCL 100 MG TABLET (FP) PO SCH (09:51)
[2018-05-08] MEDS: FOLIC ACID 1 MG TABLET (FP) PO SCH (09:51)
[2018-05-08] MEDS: guaiFENesin/D-METHORPHAN HB 1 EACH TAB.ER.12H PO SCH (09:52)
[2018-05-08] MEDS: NICOTINE 7 MG/24 HOURS TOPICAL PATCH TD SCH (09:52)
[2018-05-08] MEDS: HEPARIN NA (PORCINE) 5,000 UNITS/ML 1ML VIAL SQ SCH (09:53)
[2018-05-08] MEDS: LACTULOSE 20 GM/30 ML UDC (FOR ORAL USE ONLY) PO SCH (09:53)
[2018-05-08] MEDS: POLYETHYLENE GLYCOL 3350 119 GM BTL PO SCH (09:53)
--- NOTE | 2018-05-08 11:10 | DS ---
Physical Examination Vital Signs: Vital Signs Temperature 97.5 F L 05/07/18 22:00 Pulse Rate 80 05/07/18 22:00 Respiratory Rate 18 05/07/18 22:00 Blood Pressure 127/68 05/07/18 22:00 O2 Sat by Pulse Oximetry (%) 100 05/07/18 21:00 Constitutional: Yes: Well Nourished, No Distress, Calm Cardiovascular: Yes: Regular Rate and Rhythm Respiratory: Yes: Regular Gastrointestinal: Yes: Normal Bowel Sounds, Soft Musculoskeletal: Yes: WNL Extremities: Yes: WNL Edema: Yes Edema: LLE: Trace, RLE: Trace Peripheral Pulses WNL: Yes Neurological: Yes: Alert, Oriented Psychiatric: Yes: Alert, Oriented Labs: CBC, BMP 05/07/18 06:30 05/07/18 06:30 Discharge Summary Reason For Visit: HEPATIC CIRRHOSIS; HYPERKALEMIA Current Active Problems Anemia (Acute) CHF (congestive heart failure) (Acute) CKD (chronic kidney disease) (Acute) Hyperkalemia (Acute) Liver cirrhosis (Acute) Pleural effusion (Acute) Volume overload (Acute) - Instructions Diet, Activity, Other Instructions: Please return to the emergency department with any new or worsening symptoms or concerns. Please follow up with your primary care physician within 72 hours. Follow up with GI and Nephrology outpatient. Referrals: Emmanuel Freeman MD [Staff Physician] - Conner Farnsworth MD [Staff Physician] - Dang Sparks MD [Staff Physician] - Disposition: HOME - Home Medications Comprehensive Discharge Medication List: Ambulatory Orders Folic Acid - 1 mg PO DAILY #30 tablet 09/27/17 Multivitamin [One Daily] 1 each PO DAILY #30 tablet 09/27/17 Thiamine HCl [Vitamin B1 -] 100 mg PO DAILY #30 tablet 09/27/17 Ferrous Sulfate 325 mg PO DAILY 04/30/18 Amlodipine Besylate [Norvasc -] 10 mg PO DAILY #30 tab 05/08/18 Furosemide [Lasix -] 40 mg PO BID@0600,1400 #60 tablet 05/08/18 Lactulose (Oral Use) [Cephulac -] 20 gm PO BID #1800 ml 05/08/18 Tamsulosin HCl [Flomax -] 0.4 mg PO DAILY@0830 #30 cap.er.24h 05/08/18 Triamcinolone 0.5% Ointment [Aristocort 0.5% Ointment -] 1 applic TP BID #45 g 05/08/18 cloNIDine HCL [Catapres -] 0.1 mg PO BID #60 tablet 05/08/18 hydrOXYzine HCL [Atarax -] 50 mg PO Q6H PRN #360 tablet 05/08/18
--- NOTE | 2018-05-08 11:25 | PN ---
Progress Note (short form) - Note Progress Note: Breathing feels overall better. No CP. No acute events overnight. CXR: Improving effusion / right foreign body Intake & Output 05/05/18 05/06/18 05/07/18 05/08/18 23:59 23:59 23:59 23:59 Intake Total 935 1135 970 Balance 935 1135 970 Weight 231 lb 6.4 oz 197 lb 1.6 oz Last Vital Signs Temp Pulse Resp BP Pulse Ox 97.5 F L 80 18 127/68 100 05/07/18 22:00 05/07/18 22:00 05/07/18 22:00 05/07/18 22:00 05/07/18 21:00 Active Medications Acetaminophen (Tylenol -) 650 mg PO Q6H PRN PRN Reason: PAIN LEVEL 1 - 3 Albuterol Sulfate (Ventolin 0.083% Nebulizer Soln -) 1 amp NEB Q4H PRN PRN Reason: SHORT OF BREATH/WHEEZING Albuterol/Ipratropium (Duoneb -) 1 amp NEB RBID [facility] Last Admin: 05/08/18 09:12 Dose: Not Given Amino Acids (Prosource No Carb Liquid Pkt) 30 ml PO BID@0800,1730 [facility] Last Admin: 05/08/18 08:19 Dose: 30 ml Amlodipine Besylate (Norvasc -) 10 mg PO DAILY [facility] Last Admin: 05/08/18 09:51 Dose: 10 mg Benzocaine/Menthol (Cepacol Lozenge -) 1 each MM PRN PRN PRN Reason: SORE THROAT Last Admin: 05/06/18 06:19 Dose: 1 each Clonidine (Catapres -) 0.1 mg PO BID [facility] Last Admin: 05/08/18 09:51 Dose: 0.1 mg Ferrous Sulfate (Feosol -) 325 mg PO BID [facility] Last Admin: 05/08/18 09:51 Dose: 325 mg Folic Acid (Folic Acid -) 1 mg PO DAILY [facility] Last Admin: 05/08/18 09:51 Dose: 1 mg Furosemide (Lasix -) 40 mg PO BID@0600,1400 [facility] Last Admin: 05/08/18 06:06 Dose: 40 mg Guaifenesin (Mucinex Dm -) 1 tablet PO BID [facility] Last Admin: 05/08/18 09:52 Dose: 1 tablet Heparin Sodium (Porcine) (Heparin -) 5,000 unit SQ BID [facility] Last Admin: 05/08/18 09:53 Dose: 5,000 unit Hydroxyzine HCl (Atarax -) 50 mg PO Q6H PRN PRN Reason: FOR ITCHING Last Admin: 05/08/18 09:51 Dose: 50 mg Lactulose (Cephulac (Oral Use)) 20 gm PO BID [facility] Last Admin: 05/08/18 09:53 Dose: 20 gm Multivitamins/Minerals/Vitamin C (Tab-A-Vit -) 1 tab PO DAILY [facility] Last Admin: 05/08/18 09:51 Dose: 1 tab Nicotine (Nicoderm Patch -) 7 mg TD DAILY [facility] Last Admin: 05/08/18 09:52 Dose: 7 mg Ondansetron HCl (Zofran Injection) 4 mg IVPUSH Q8H PRN PRN Reason: NAUSEA Last Admin: 05/07/18 06:00 Dose: 4 mg Oxycodone HCl (Roxicodone -) 5 mg PO Q4H PRN PRN Reason: PAIN LEVEL 7 - 10 Last Admin: 05/04/18 23:32 Dose: 5 mg Polyethylene Glycol (Miralax (For Daily Use) -) 17 gm PO BID [facility] Last Admin: 05/08/18 09:53 Dose: Not Given Tamsulosin HCl (Flomax -) 0.4 mg PO DAILY@0830 [facility] Last Admin: 05/08/18 08:19 Dose: 0.4 mg Thiamine HCl (Vitamin B1 -) 100 mg PO DAILY [facility] Last Admin: 05/08/18 09:51 Dose: 100 mg Tramadol HCl (Ultram -) 50 mg PO Q6H PRN PRN Reason: PAIN LEVEL 4 - 6 Last Admin: 05/06/18 21:49 Dose: 50 mg Triamcinolone Acetonide (Aristocort 0.5% Ointment -) 1 applic TP BID [facility] Last Admin: 05/08/18 09:46 Dose: 1 applic Constitutional: Yes: NAD Cardiovascular: Yes: Regular Rate and Rhythm Respiratory: Yes: Clear Gastrointestinal: Yes: Normal Bowel Sounds, Soft, Ascites Musculoskeletal: Yes: WNL Extremities: Yes: WNL Edema: Yes Edema: LUE: Trace, LLE: 1+, RLE: 1+ Peripheral Pulses WNL: Yes Neurological: Yes: Alert, Oriented Psychiatric: Yes: Alert, Oriented Labs: Laboratory Results - last 24 hr 05/07/18 09:50 Blood Type B POSITIVE Antibody Screen Negative Crossmatch See Detail Pleural Effusion c/w Hepatic Hydrothorax Liver Cirrhosis s/p TIPS Thrombocytopenia CKD HTN DM Hypercholesterolemia - BD TX PRN - Lasix - D/C planning Dr Rob
[2018-05-08 13:34] VITALS: BP 141/80; PULSE 69
== END 2018-05-08 11:38 | disposition home or self-care (01) | DRG 194 ==
LOC: JER 12:13 → JERBED 14:48 → J8W 18:26 → OBSVTOIN 05-02 08:12
PROVIDERS: ADMIT Family Medicine; ATTEND Family Medicine
PROC: 30233N1 Transfusion of Nonautologous Red Blood Cells into Peripheral Vein, Percutaneous Approach (ICD-10-PCS; 2018-05-02)
PROC: 0W993ZX Drainage of Right Pleural Cavity, Percutaneous Approach, Diagnostic (ICD-10-PCS; principal; 2018-05-03)
DX: I13.0 Hypertensive heart and chronic kidney disease with heart failure and stage 1 through stage 4 chronic kidney disease, or unspecified chronic kidney disease (principal); N17.9 Acute kidney failure, unspecified; J90 Pleural effusion, not elsewhere classified; K70.30 Alcoholic cirrhosis of liver without ascites; E87.5 Hyperkalemia; D69.6 Thrombocytopenia, unspecified; I50.9 Heart failure, unspecified; J94.8 Other specified pleural conditions; E11.9 Type 2 diabetes mellitus without complications; F32.9 Major depressive disorder, single episode, unspecified; Z91.5 Personal history of self-harm; Z91.013 Allergy to seafood; E78.5 Hyperlipidemia, unspecified; F10.20 Alcohol dependence, uncomplicated; D64.9 Anemia, unspecified; K70.10 Alcoholic hepatitis without ascites; N18.9 Chronic kidney disease, unspecified; Z72.0 Tobacco use; R07.89 Other chest pain; K59.00 Constipation, unspecified
CPT/HCPCS: 36415; 36430; 71045-TC-FY; 71046-TC-FY; 71250-TC; 74176-TC; 76942; 80048; 80053; 81003; 81015; 82042; 82150; 82272; 82550; 82553; 82607; 82728; 82746; 82784; 82945; 83540; 83550; 83615; 83690; 83735; 83880; 84155; 84157; 84165; 84478; 84484; 85025; 85044; 85610; 86334; 86850; 86900; 86901; 86922; 87070; 87075; 87102; 87116; 87205; 87206; 87210; 88108; 88305-TC; 89051; 93005; 93010; 93306-TC; 94640; 97116-GP; 97161-GP; 99284-25; G0378; J0735; J1644; J1756; J7620; P9038; P9047; P9058

== ENCOUNTER 2019-07-05 09:32 | Inpatient (IN) | payer OTHER ==
[2019-07-05] MEDS ORDERED: OXYMETAZOLINE 0.05% NASAL SOLUTION 15 ML BOTTLE NS ONE (10:02)
[2019-07-05] MEDS ORDERED: cloNIDine HCL 0.1 MG TABLET PO ONE (10:08)
[2019-07-05] MEDS ORDERED: amLODIPine BESYLATE 10 MG TABLET (FP) PO ONE (10:08)
[2019-07-05] MEDS ORDERED: amLODIPine BESYLATE 5 MG TABLET (FP) ONE (10:22)
[2019-07-05] MEDS ORDERED: cloNIDine HCL 0.1 MG TABLET ONE (10:22)
[2019-07-05] MEDS ORDERED: ONDANSETRON 4 MG/2 ML VIAL ONE (10:31)
[2019-07-05 10:42] LABS: HEMATOCRIT 28.1 % (35.4-49); HEMOGLOBIN 10.2 GM/dL (11.7-16.9); MCH 30.9 pg (25.7-33.7); MCHC 36.3 g/dl (32.0-35.9); MEAN CELL VOLUME 85.3 fl (80-96); MEAN PLT VOLUME 8.6 fl (7.5-11.1); PLATELET COUNT 144 K/MM3 (134-434); RDW 14.9 % (11.9-15.9)
[2019-07-05] MEDS ORDERED: TRANEXAMIC ACID 1000 MG/10 ML VIAL IVPUSH ONE (10:56)
[2019-07-05] MEDS ORDERED: ONDANSETRON 4 MG/2 ML VIAL IVPUSH ONE (10:56)
--- NOTE | 2019-07-05 11:08 | PDOC ---
History of Present Illness - General Chief Complaint: Nasal Bleeding Stated Complaint: Nasal Bleeding Time Seen by Provider: 07/05/19 09:44 History Source: Patient Exam Limitations: No Limitations - History of Present Illness Initial Comments: Pt is a 48 yo M, with PMH of HTN, HLD, NIDDM, CKD (on HD T/R/Sat), cirrhosis 2/ 2 chronic alcohol abuse (s/p TIPS), and depression, who is presenting with complaints of nose bleeding. Pt states he forgot to take his BP medication yesterday and today, and woke up with nausea this AM. Pt then experienced epistaxis since 8:30 am, which stopped intermittently with pressure. Pt came to the ED when the bleeding continued. Pt denies any recent fevers/chills, headache , vision changes, syncope, chest pain, palpitations, SOB, vomiting, abdominal pain, urinary symptoms, diarrhea/constipation, or leg swelling. Allergies: NKDA PCP: Ed Renal: Wil ([facility]) Social: Pt denies any cigarette, alcohol, or drug use. Pt denies any recent travel or sick contacts. Surgical: AV fistula R arm, TIPS. Family: no relevant history. 07/05/19 10:59 Past History - Travel Traveled outside of the country in the last 30 days: No Close contact w/someone who was outside of country & ill: No - Past Medical History Allergies/Adverse Reactions: Allergies Allergy/AdvReac Type Severity Reaction Status Date / Time shellfish derived Allergy Severe Swelling Verified 07/05/18 05:10 Fish Containing Products Allergy Intermediate Itching Verified 07/07/18 21:17 Home Medications: Ambulatory Orders Folic Acid - 1 mg PO DAILY #30 tablet 09/27/17 Multivitamin [One Daily] 1 each PO DAILY #30 tablet 09/27/17 Thiamine HCl [Vitamin B1 -] 100 mg PO DAILY #30 tablet 09/27/17 Ferrous Sulfate 325 mg PO DAILY 04/30/18 Amlodipine Besylate [Norvasc -] 10 mg PO DAILY #30 tab 05/08/18 Furosemide [Lasix -] 40 mg PO BID@0600,1400 #60 tablet 05/08/18 Lactulose (Oral Use) [Cephulac -] 20 gm PO BID #1800 ml 05/08/18 Tamsulosin HCl [Flomax -] 0.4 mg PO DAILY@0830 #30 cap.er.24h 05/08/18 Triamcinolone 0.5% Ointment [Aristocort 0.5% Ointment -] 1 applic TP BID #45 g 05/08/18 cloNIDine HCL [Catapres -] 0.1 mg PO BID #60 tablet 05/08/18 hydrOXYzine HCL [Atarax -] 50 mg PO Q6H PRN #360 tablet 05/08/18 Acetaminophen [Tylenol .Regular Strength -] 650 mg PO Q6H PRN tablet 07/08/18 Amlodipine Besylate [Norvasc -] 10 mg PO DAILY #0 tablet 07/08/18 Thiamine HCl [Vitamin B1 -] 100 mg PO DAILY #30 tablet 07/08/18 cloNIDine HCL [Catapres -] 0.1 mg PO BID tablet 07/08/18 oxyCODONE HCL [Roxicodone -] 5 mg PO Q6H PRN #20 tablet MDD 4 07/08/18 traMADol HCL [Ultram -] 50 mg PO Q6H PRN #20 tablet MDD 4 07/08/18 Spironolactone [Aldactone -] 50 mg PO DAILY #30 tablet 07/10/18 Triamcinolone 0.5% Ointment [Aristocort 0.5% Ointment -] 0 gm TP BID #45 gm Anemia: No Asthma: No Cancer: No Cardiac Disorders: Yes CVA: No COPD: No CHF: No Dementia: No Diabetes: Yes GI Disorders: Yes (cirrhosis etoh abuse) Disorders: No HTN: Yes Hypercholesterolemia: No Kidney Stones: No Liver Disease: Yes (CIRRHOSIS OF LIVER) Psychiatric Problems: Yes (DEPRESSION, ANXEITY) Seizures: No Thyroid Disease: No - Surgical History Abdominal Surgery: No Appendectomy: No Cardiac Surgery: No Cholecystectomy: No Lung Surgery: No Neurologic Surgery: No Orthopedic Surgery: Yes (right shoulder due to dislocation 6 years ago) - Family Disease History Family Disease History: Heart Disease: Mother - Reproductive History Testicular Surgery: No - Immunization History Immunization Up to Date: Yes - Suicide/Smoking/Psychosocial Hx Smoking Status: No Smoking History: Unknown if ever smoked Have you smoked in the past 12 months: Yes Number of Cigarettes Smoked Daily: 2 If you are a former smoker, when did you quit?: 2010 Cigars Per Day: 0 'Breaking Loose' booklet given: 02/22/18 Hx Alcohol Use: Yes Drug/Substance Use Hx: No Substance Use Type: None Hx Substance Use Treatment: No Review of Systems - Review of Systems Able to Perform ROS?: Yes Is the patient limited Chinese proficient: No Constitutional: Yes: Weight Stable. No: Chills, Diaphoresis, Fever, Loss of Appetite, Malaise, Weakness HEENTM: Yes: Nose Bleeding. No: Blurred Vision, Double Vision, Nose Congestion , Throat Pain, Throat Swelling, Difficulty Swallowing Respiratory: No: Cough, Orthopnea, Shortness of Breath Cardiac (ROS): No: Chest Pain, Edema, Irregular Heart Rate, Lightheadedness, Palpitations, Syncope, Chest Tightness ABD/GI: No: Constipated, Diarrhea, Nausea, Poor Appetite, Poor Fluid Intake, Vomiting : No: Burning, Dysuria, Frequency, Pain, Urgency Musculoskeletal: No: Back Pain, Joint Pain, Muscle Pain, Muscle Weakness Integumentary: No: Bruising, Erythema, Rash Neurological: No: Headache, Numbness, Paresthesia, Weakness, Unsteady Gait, Dizziness Psychiatric: No: Sleep Pattern Change, Change in Appetite Endocrine: No: Increased Urine, Change in Weight Hematologic/Lymphatic: Yes: Anemia. No: Blood Clots, Easy Bleeding, Easy Bruising All Other Systems: Reviewed and Negative *Physical Exam - Vital Signs Last Vital Signs Temp Pulse Resp BP Pulse Ox 98.5 F 98 H 19 150/102 H 100 07/05/19 09:41 07/05/19 09:41 07/05/19 09:41 07/05/19 09:41 07/05/19 09:41 - Physical Exam Comments: HTN 150/102, Hr 98, pt afebrile. Pt appears anxious with multiple blood-soaked towels; normal body habitus. Pt alert and oriented x3. site engineer generally intact, muscular strength and sensation intact. No midline spinal tenderness, step-offs, or crepitus. Head normocephalic, atraumatic. Eyes PERRLA, EOMI. Oropharynx without erythema or exudates, no LAD b/l. Profuse BRB from b/l nares, no localized area of bleeding noted. Hearing intact. Clear heart sounds, S1/S2, no JVD, b/l pedal edema, or heart murmur. Clear lung sounds, no respiratory distress, wheezes, crackles, or accessory muscle use. No abdominal or CVA tenderness to palpation, no rebound, no guarding. Abdomen soft, non-distended, and with normoactive bowel sounds. AV fistula R AC. Skin without jaundice or rash. 07/05/19 11:11 07/05/19 12:34 Vital Signs - Vital Signs #1 Blood Pressure: 123/69 MAP: 87 BP Location: Left Arm Blood Pressure Position: Sitting Pulse Rate: 88 Respiratory Rate: 14 O2 Sat by Pulse Oximetry (%): 100 Oxygen Delivery Method: Room Air ED Treatment Course - LABORATORY CBC & Chemistry Diagram: 07/05/19 10:25 07/05/19 11:00 - ADDITIONAL ORDERS Additional order review: 07/05/19 10:25 RBC 3.30 L MCV 85.3 MCHC 36.3 H RDW 14.9 MPV 8.6 D - Medications Given in the ED: ED Medications Discontinued Medications Generic Name Dose Route Start Last Admin Trade Name Koleq PRN Reason Stop Dose Admin Amlodipine Besylate 10 mg 07/05/19 10:08 07/05/19 10:30 Norvasc - PO 07/05/19 10:09 10 mg ONCE ONE Administration Clonidine 0.1 mg 07/05/19 10:08 07/05/19 10:30 Catapres - PO 07/05/19 10:09 0.1 mg ONCE ONE Administration Ondansetron HCl 4 mg 07/05/19 10:56 07/05/19 10:40 Zofran Injection IVPUSH 07/05/19 10:57 4 mg ONCE ONE Administration Oxymetazoline HCl 1 spray 07/05/19 10:02 07/05/19 10:30 Afrin - NS 07/05/19 10:03 1 spray ONCE ONE Administration Medical Decision Making - Medical Decision Making Pt was seen at bedside, also will be seen by attending Dr. Phillip. Pt presenting with epistaxis. Pt did not take BP medications since 2 days ago, but denies any other symptoms of end-organ ischemia (no headache, vision changes, chest pain). Will evaluate coags and anemia, considering poor coagulation with other medical problems (cirrhosis, TIPS, HD) Provided home dose of BP medications (amlodipine and clonidine) Packed b/l nares with rhino-rockets and afrin -- stopped bleeding Provided 4 mg IV zofran for nausea,1 g TXA IV, and 3 g IV unasyn for abx coverage. Pt states nausea and bleeding has improved. BP and HR stable CBC, CMP, and coags WNL for pts -- not requiring transfusion or platelets at this time. Paged Dr. Farnsworth's service for admission (admits for Dr. Ward) 07/05/19 12:38 Pt refused EKG. 07/05/19 12:[address] Farnsworth's service (per Dr. Quick) for inpatient monitoring. 07/05/19 13:12 *DC/Admit/Observation/Transfer Diagnosis at time of Disposition: Epistaxis, ESRD (end stage renal disease) on dialysis, S/P TIPS (transjugular intrahepatic portosystemic shunt) - Discharge Dispostion Condition at time of disposition: Stable Decision to Admit order: Yes - Referrals Referrals: Rene Ward MD [Primary Care Provider] - - Patient Instructions - Post Discharge Activity
[2019-07-05] MEDS ORDERED: TRANEXAMIC ACID 1000 MG/10 ML VIAL ONE (11:12)
--- NOTE | 2019-07-05 11:41 | PDOC ---
Documentation entered by Delta White SCRIBE, acting as scribe for Aleena Phillip MD. Aleena Phillip MD: This documentation has been prepared by the Cindy david Xhesika, SCRIBE, under my direction and personally reviewed by me in its entirety. I confirm that the documentation accurately reflects all work, treatment, procedures, and medical decision making performed by me. Attending Attestation - Resident Resident Name: Karen Trinidad - ED Attending Attestation I have performed the following: I have examined & evaluated the patient, The case was reviewed & discussed with the resident, I agree w/resident's findings & plan, Exceptions are as noted - HPI HPI: 07/05/19 10:05 The patient is a 48 year old male, with a significant past medical history of hypertension, hyperlipidemia, IDDM, liver failure (secondary to ETOH abuse), ESRD with HD //, and depression who presents to the emergency department with nasal bleeding since 8:30am. Patient notes he woke up this morning felt nauseous and shortly after his nose started bleeding. Pt notes he tried putting pressure, the bleeding stopped and shortly after recurred again. Pt notes he forgot to take his BP medication last night. The patient denies chest pain, shortness of breath, headache and dizziness. Denies fever, chills, cough, nausea, vomiting, diarrhea and constipation. Denies dysuria, frequency, urgency and hematuria. Allergies: Shellfish derived. Past surgical history: Right shoulder repair. Social History: Alcohol abuse. Smoker. PCP: Dr. Rene Ward - Physicial Exam PE: GENERAL: Awake, alert, and fully oriented, in no acute distress HEAD: No signs of trauma EYES: PERRLA, EOMI, sclera anicteric, conjunctiva clear ENT: Auricles normal inspection, hearing grossly normal, oropharynx clear without exudates. Moist mucosa. +Active heavy bleeding from bilateral nares NECK: Normal ROM, supple, no lymphadenopathy, JVD, or masses LUNGS: Breath sounds equal, clear to auscultation bilaterally. No wheezes, and no crackles HEART: Regular rate and rhythm, normal S1 and S2, no murmurs, rubs or gallops ABDOMEN: Soft, nontender, normoactive bowel sounds. No guarding, no rebound. No masses EXTREMITIES: Normal range of motion, no edema. No clubbing or cyanosis. No cords, erythema, or tenderness. +RUE AVF with +thrill NEUROLOGICAL: Cranial nerves II through XII grossly intact. Normal speech, normal gait. Motor and sensation intact SKIN: Warm, dry, normal turgor, no rashes or lesions noted. - Medical Decision Making Pt with history cirrhosis (prior elevated INR and thrombocytopenia), ESRD presents with heavy bleeding from both nares since this morning. Bleeding did not improve with direct pressure in ED. Attempted to instill Afrin, but the bleeding was heavy after removing clotted blood from both nares. Nasal packing 7.5cm was placed bilaterally, patient dislodged both packs as the second one was placed. Second attempt was made with packing B/L, 7.5, with Afrin and water on them, patient tolerated. Plt count is acceptable, however, I would expect a degree of platelet dysfunction in light of history of ESRD. Will give TXA, as he is bleeding around the packing (much better than before, no longer having blood in his posterior oropharynx). Will plan on admission. Will give prophylactic abx. Consulted with renal, as he will need dialysis tomorrow.
[2019-07-05 12:04] LABS: ALBUMIN 2.6 g/dl (3.4-5.0); BILIRUBIN,TOTAL 1.1 mg/dL (0.2-1); BLOOD UREA NITROGEN 18.8 mg/dL (7-18); CALCIUM 7.7 mg/dL (8.5-10.1); CREATININE 4.4 mg/dL (0.55-1.3); POTASSIUM 3.8 mmol/L (3.5-5.1); TOT PROT 6.4 g/dl (6.4-8.2)
[2019-07-05] MEDS ORDERED: AMPICILLIN NA/SULBACTAM NA 3 GM in SODIUM CHLORIDE 100 ML IVPB ONE (12:06)
[2019-07-05 12:56] LABS: INR 1.13 (0.83-1.09); PROTHROMBIN TIME (PATIENT) 13.3 SEC (9.7-13.0)
--- NOTE | 2019-07-05 14:51 | CONSULT ---
Consult Consult Specialty:: Nephrology Reason for Consultation:: ESRD - History of Present Illness Chief Complaint: nose bleed History of Present Illness: Pt is a 48 year old male with pmhx of esrd, htn, hld, dm, liver cirrhosis, TIPS , and depression who presented to the ER with nosebleed. He says that he woke up with it. He denies shortness of breath. He denies fevers or chills. He is due for HD tomorrow. He is not drinking alcohol. He denies nausea or vomiting. I was called to evaluate him as he is on HD. - History Source History Provided By: Patient, Medical Record - Past Medical History Cardio/Vascular: Yes: HTN, Hyperlipdemia Hepatobiliary: Yes: Cirrhosis Renal/: Yes: Renal Inusuff, Hematuria, Hemodialysis Endocrine: Yes: Diabetes Mellitus - Alcohol/Substance Use Hx Alcohol Use: Yes - Smoking History Smoking history: Unknown if ever smoked Have you smoked in the past 12 months: Yes Aproximately how many cigarettes per day: 2 If you are a former smoker, when did you quit?: 2010 Home Medications - Allergies Allergies/Adverse Reactions: Allergies Allergy/AdvReac Type Severity Reaction Status Date / Time shellfish derived Allergy Severe Swelling Verified 07/05/18 05:10 Fish Containing Products Allergy Intermediate Itching Verified 07/07/18 21:17 - Home Medications Home Medications: Ambulatory Orders Folic Acid - 1 mg PO DAILY #30 tablet 09/27/17 Multivitamin [One Daily] 1 each PO DAILY #30 tablet 09/27/17 Thiamine HCl [Vitamin B1 -] 100 mg PO DAILY #30 tablet 09/27/17 Ferrous Sulfate 325 mg PO DAILY 04/30/18 Amlodipine Besylate [Norvasc -] 10 mg PO DAILY #30 tab 05/08/18 Furosemide [Lasix -] 40 mg PO BID@0600,1400 #60 tablet 05/08/18 Lactulose (Oral Use) [Cephulac -] 20 gm PO BID #1800 ml 05/08/18 Tamsulosin HCl [Flomax -] 0.4 mg PO DAILY@0830 #30 cap.er.24h 05/08/18 Triamcinolone 0.5% Ointment [Aristocort 0.5% Ointment -] 1 applic TP BID #45 g 05/08/18 cloNIDine HCL [Catapres -] 0.1 mg PO BID #60 tablet 05/08/18 hydrOXYzine HCL [Atarax -] 50 mg PO Q6H PRN #360 tablet 05/08/18 Acetaminophen [Tylenol .Regular Strength -] 650 mg PO Q6H PRN tablet 07/08/18 Amlodipine Besylate [Norvasc -] 10 mg PO DAILY #0 tablet 07/08/18 Thiamine HCl [Vitamin B1 -] 100 mg PO DAILY #30 tablet 07/08/18 cloNIDine HCL [Catapres -] 0.1 mg PO BID tablet 07/08/18 oxyCODONE HCL [Roxicodone -] 5 mg PO Q6H PRN #20 tablet MDD 4 07/08/18 traMADol HCL [Ultram -] 50 mg PO Q6H PRN #20 tablet MDD 4 07/08/18 Spironolactone [Aldactone -] 50 mg PO DAILY #30 tablet 07/10/18 Triamcinolone 0.5% Ointment [Aristocort 0.5% Ointment -] 0 gm TP BID #45 gm Family Disease History - Family Disease History Family Disease History: Diabetes: Father (alive ) Review of Systems - Review of Systems Constitutional: reports: Malaise HENT: reports: Epistaxis Neck: reports: No Symptoms Cardiovascular: reports: No Symptoms Respiratory: reports: No Symptoms Gastrointestinal: reports: No Symptoms Genitourinary: reports: No Symptoms Musculoskeletal: reports: No Symptoms Integumentary: reports: No Symptoms Neurological: reports: No Symptoms Endocrine: reports: No Symptoms Hematology/Lymphatic: reports: No Symptoms Psychiatric: reports: No Symptoms Physical Exam Vital Signs: Vital Signs Temperature 98.2 F 07/05/19 14:10 Pulse Rate 96 H 07/05/19 14:10 Respiratory Rate 20 07/05/19 14:10 Blood Pressure 124/71 07/05/19 14:10 O2 Sat by Pulse Oximetry (%) 99 07/05/19 14:10 Constitutional: Yes: Calm Eyes: Yes: WNL HENT: Yes: Epistaxis Neck: Yes: Supple Cardiovascular: Yes: S1, S2 Respiratory: Yes: CTA Bilaterally Gastrointestinal: Yes: Soft Renal/: Yes: WNL Musculoskeletal: Yes: WNL Edema: Yes Edema: LLE: Trace, RLE: Trace Neurological: Yes: Oriented Psychiatric: Yes: Oriented Labs: CBC, BMP 07/05/19 10:25 07/05/19 11:00 Problem List - Problems (1) ESRD (end stage renal disease) on dialysis Code(s): N18.6 - END STAGE RENAL DISEASE; Z99.2 - DEPENDENCE ON RENAL DIALYSIS (2) Epistaxis Code(s): R04.0 - EPISTAXIS (3) S/P TIPS (transjugular intrahepatic portosystemic shunt) Code(s): Z95.828 - PRESENCE OF OTHER VASCULAR IMPLANTS AND GRAFTS Assessment/Plan Impression 1. ESRD 2. epistaxis 3. hx etoh abuse 4. liver cirrhosis with tips 5. anemia Plan - will arrange for HD tomorrow - called HD unit and stopped heparin - resume home meds - monitor bp - 4 :15 180 abf 400 3 k bath,
[2019-07-05] MEDS ORDERED: SODIUM CHLORIDE 250 ML IV PRN (14:55)
--- NOTE | 2019-07-05 15:52 | HP ---
Admitting History and Physical - Admission Chief Complaint: came in with epistaxis History of Present Illness: Pt is a 48 yo M, with PMH of HTN, HLD, NIDDM, CKD (on HD T/R/Sat), cirrhosis 2/ 2 chronic alcohol abuse (s/p TIPS), and depression, who is presenting with complaints of nose bleeding. Pt states he forgot to take his BP medication yesterday and today, and woke up with nausea this AM. per patient yesterday he was feeling nauseous and felt like vomitting, today in morning his head felt heavy and he felt his nose was stuffed up so went to blow his nose and then epistaxis started which stopped intermittently with pressure. Pt came to the ED when the bleeding continued. Pt denies any recent fevers/ chills, headache, vision changes, syncope, chest pain, palpitations, SOB, vomiting, abdominal pain, urinary symptoms, diarrhea/constipation, or leg swelling. in ER patient got bilateral nasal packing and afrin spray unasyn and zofra one dose History Source: Patient - Past Medical History Cardiovascular: Yes: HTN, Hyperlipdemia Hepatobiliary: Yes: Cirrhosis Renal/: Yes: Renal Inusuff, Hematuria, Hemodialysis Heme/Onc: Yes: Anemia Endocrine: Yes: Diabetes Mellitus - Smoking History Smoking history: Unknown if ever smoked Have you smoked in the past 12 months: Yes Aproximately how many cigarettes per day: 2 If you are a former smoker, when did you quit?: 2010 - Alcohol/Substance Use Hx Alcohol Use: Yes Home Medications - Allergies Allergies/Adverse Reactions: Allergies Allergy/AdvReac Type Severity Reaction Status Date / Time shellfish derived Allergy Severe Swelling Verified 07/05/18 05:10 Fish Containing Products Allergy Intermediate Itching Verified 07/07/18 21:17 - Home Medications Home Medications: Ambulatory Orders Folic Acid - 1 mg PO DAILY #30 tablet 09/27/17 Multivitamin [One Daily] 1 each PO DAILY #30 tablet 09/27/17 Thiamine HCl [Vitamin B1 -] 100 mg PO DAILY #30 tablet 09/27/17 Ferrous Sulfate 325 mg PO DAILY 04/30/18 Amlodipine Besylate [Norvasc -] 10 mg PO DAILY #30 tab 05/08/18 Furosemide [Lasix -] 40 mg PO BID@0600,1400 #60 tablet 05/08/18 Lactulose (Oral Use) [Cephulac -] 20 gm PO BID #1800 ml 05/08/18 Tamsulosin HCl [Flomax -] 0.4 mg PO DAILY@0830 #30 cap.er.24h 05/08/18 Triamcinolone 0.5% Ointment [Aristocort 0.5% Ointment -] 1 applic TP BID #45 g 05/08/18 cloNIDine HCL [Catapres -] 0.1 mg PO BID #60 tablet 05/08/18 hydrOXYzine HCL [Atarax -] 50 mg PO Q6H PRN #360 tablet 05/08/18 Acetaminophen [Tylenol .Regular Strength -] 650 mg PO Q6H PRN tablet 07/08/18 Amlodipine Besylate [Norvasc -] 10 mg PO DAILY #0 tablet 07/08/18 Thiamine HCl [Vitamin B1 -] 100 mg PO DAILY #30 tablet 07/08/18 cloNIDine HCL [Catapres -] 0.1 mg PO BID tablet 07/08/18 oxyCODONE HCL [Roxicodone -] 5 mg PO Q6H PRN #20 tablet MDD 4 07/08/18 traMADol HCL [Ultram -] 50 mg PO Q6H PRN #20 tablet MDD 4 07/08/18 Spironolactone [Aldactone -] 50 mg PO DAILY #30 tablet 07/10/18 Triamcinolone 0.5% Ointment [Aristocort 0.5% Ointment -] 0 gm TP BID #45 gm Family Disease History - Family Disease History Family Disease History: Diabetes: Father (alive ) Review of Systems - Review of Systems HENT: reports: Epistaxis Physical Examination Vital Signs: Vital Signs Temperature 98.2 F 07/05/19 14:10 Pulse Rate 96 H 07/05/19 14:10 Respiratory Rate 20 07/05/19 14:10 Blood Pressure 124/71 07/05/19 14:10 O2 Sat by Pulse Oximetry (%) 99 07/05/19 14:10 Constitutional: Yes: Calm HENT: Yes: Epistaxis, Other (nasal packing) Neck: Yes: Trachea Midline Cardiovascular: Yes: Regular Rate and Rhythm, S1, S2 Respiratory: Yes: CTA Bilaterally Gastrointestinal: Yes: Normal Bowel Sounds, Soft Labs: CBC, BMP 07/05/19 10:25 07/05/19 11:00 Problem List - Problems (1) ESRD (end stage renal disease) on dialysis Assessment/Plan: HD in AM renal on board Code(s): N18.6 - END STAGE RENAL DISEASE; Z99.2 - DEPENDENCE ON RENAL DIALYSIS (2) Epistaxis Assessment/Plan: ent consult repeat cbc now nasal packing Code(s): R04.0 - EPISTAXIS (3) Essential hypertension Assessment/Plan: amlodipine,aldactone clonidine lasix Code(s): I10 - ESSENTIAL (PRIMARY) HYPERTENSION
--- NOTE | 2019-07-05 17:06 | CON.ENT ---
Consult Consult Specialty:: ENT Referred by:: Dr. Quick Reason for Consultation:: nasal bleeding - History of Present Illness Chief Complaint: nasal bleeding History of Present Illness: 48 yo M admitted to [facility] via ER this morning with acute epistaxis had significant bleeding, presented to ER, bleeding eventually controlled with bilateral nasal packing. pt had pulled out some packing during attempts to control epistaxis. pt did not take his BP medication this morning, in ER BP 150/102 now 124 systolic (2PM) denies significant hx epistaxis except as a child. no other bleeding problems reported significant medical hx hypertension, chronic renal failure on hemodialysis, liver cirrhosis (EtOH) - History Source History Provided By: Patient, Medical Record Limitations to Obtaining History: No Limitations - Past Medical History Cardio/Vascular: Yes: HTN, Hyperlipdemia Hepatobiliary: Yes: Cirrhosis Renal/: Yes: Renal Inusuff, Hematuria, Hemodialysis Endocrine: Yes: Diabetes Mellitus - Alcohol/Substance Use Hx Alcohol Use: Yes - Smoking History Smoking history: Unknown if ever smoked Have you smoked in the past 12 months: Yes Aproximately how many cigarettes per day: 2 If you are a former smoker, when did you quit?: 2010 Home Medications - Allergies Allergies/Adverse Reactions: Allergies Allergy/AdvReac Type Severity Reaction Status Date / Time shellfish derived Allergy Severe Swelling Verified 07/05/18 05:10 Fish Containing Products Allergy Intermediate Itching Verified 07/07/18 21:17 - Home Medications Home Medications: Ambulatory Orders Folic Acid - 1 mg PO DAILY #30 tablet 09/27/17 Multivitamin [One Daily] 1 each PO DAILY #30 tablet 09/27/17 Thiamine HCl [Vitamin B1 -] 100 mg PO DAILY #30 tablet 09/27/17 Ferrous Sulfate 325 mg PO DAILY 04/30/18 Amlodipine Besylate [Norvasc -] 10 mg PO DAILY #30 tab 05/08/18 Furosemide [Lasix -] 40 mg PO BID@0600,1400 #60 tablet 05/08/18 Lactulose (Oral Use) [Cephulac -] 20 gm PO BID #1800 ml 05/08/18 Tamsulosin HCl [Flomax -] 0.4 mg PO DAILY@0830 #30 cap.er.24h 05/08/18 Triamcinolone 0.5% Ointment [Aristocort 0.5% Ointment -] 1 applic TP BID #45 g 05/08/18 cloNIDine HCL [Catapres -] 0.1 mg PO BID #60 tablet 05/08/18 hydrOXYzine HCL [Atarax -] 50 mg PO Q6H PRN #360 tablet 05/08/18 Acetaminophen [Tylenol .Regular Strength -] 650 mg PO Q6H PRN tablet 07/08/18 Amlodipine Besylate [Norvasc -] 10 mg PO DAILY #0 tablet 07/08/18 Thiamine HCl [Vitamin B1 -] 100 mg PO DAILY #30 tablet 07/08/18 cloNIDine HCL [Catapres -] 0.1 mg PO BID tablet 07/08/18 oxyCODONE HCL [Roxicodone -] 5 mg PO Q6H PRN #20 tablet MDD 4 07/08/18 traMADol HCL [Ultram -] 50 mg PO Q6H PRN #20 tablet MDD 4 07/08/18 Spironolactone [Aldactone -] 50 mg PO DAILY #30 tablet 07/10/18 Triamcinolone 0.5% Ointment [Aristocort 0.5% Ointment -] 0 gm TP BID #45 gm Family Disease History - Family Disease History Family Disease History: Diabetes: Father (alive ) Physical Exam-ENT Vital Signs: Vital Signs Temperature 98.2 F 07/05/19 14:10 Pulse Rate 96 H 07/05/19 14:10 Respiratory Rate 20 07/05/19 14:10 Blood Pressure 124/71 07/05/19 14:10 O2 Sat by Pulse Oximetry (%) 99 07/05/19 14:10 Constitutional: Yes: No Distress, Anxious Head: Yes: WNL Face: Yes: WNL Eyes: Yes: WNL, Conjunctiva Clear, Other (left eye sl blood, suspect reflux from nasolacrimal duct) Nose: Yes: Other (bilateral packing in place, no active bleeding) Oral/Pharynx: Yes: Other (trace old blood,no active bleeding, voice clear, no stridor or respiratory distress) Outer Ear: Yes: WNL Imaging - Results Cat Scan: Report Reviewed, Image Reviewed MRI: Report Reviewed, Image Reviewed Problem List - Problems (1) Epistaxis Assessment/Plan: acute epistaxis this morning, admitted, now controlled with bilateral nasal packing (inflatable) minor reflux of blood into nasolacrimal duct left BP was elevated, now in normal range for hemodialysis in AM 07-06-19 Recommend: continue nasal packing. should stay in ~72 hours BP management hemodialysis as scheduled if patient has no further bleeding then consider packing removal 07-08 or 07-09 Thank you for consultation, Narayan Amaya MD FACS Code(s): R04.0 - EPISTAXIS
[2019-07-05] MEDS: LACTULOSE 20 GM/30 ML UDC (FOR ORAL USE ONLY) PO SCH ×3 (17:44→21:41)
[2019-07-05 17:59] VITALS: BMI 23.6
[2019-07-05 18:40] LABS: BASO % 0.4 % (0-2.0); EOS % 1.9 % (0-4.5); HEMATOCRIT 22.9 % (35.4-49); HEMOGLOBIN 8.2 GM/dL (11.7-16.9); LYMPH % 14.6 % (8-40); MCH 30.8 pg (25.7-33.7); MCHC 35.7 g/dl (32.0-35.9); MEAN CELL VOLUME 86.4 fl (80-96); MONO % 13.4 % (3.8-10.2); NEUT % 69.7 % (42.8-82.8); PLATELET COUNT 89 K/MM3 (134-434); RBC 2.65 M/mm3 (4.00-5.60); RDW 14.7 % (11.9-15.9); WHITE BLOOD COUNT 4.7 K/mm3 (4.0-10.0)
[2019-07-05] MEDS: cloNIDine HCL 0.1 MG TABLET PO SCH (21:27)
[2019-07-05 21:38] LABS: PLATELET ESTIMATE DECREASED
[2019-07-05] MEDS ORDERED: diphenhydrAMINE HCL 25 MG CAPSULE (FP) PO ONE (22:24)
--- NOTE | 2019-07-06 06:13 | HOSP ---
Subjective - Review of Symptoms Events since last encounter: 48 year old male admitted to [facility] via ER with acute epistaxis RNS called overnight twice, patient noted with mild bleeding from right nostril , patient pulled rhino-rocket right side (came out as per patient) nasal packed again to control bleeding, ENT consult called again Pending cbc, monitor H/H due to dialysis today if hgb less than 7 consider 1 unit PRBC transfusion Physical Examination Vital Signs: Vital Signs Temperature 97.7 F 07/06/19 02:15 Pulse Rate 79 07/06/19 02:15 Respiratory Rate 20 07/06/19 02:15 Blood Pressure 147/81 07/06/19 02:15 O2 Sat by Pulse Oximetry (%) 98 07/05/19 23:00 Labs: CBC, BMP 07/05/19 17:00 07/05/19 11:00
[2019-07-06] MEDS: FUROSEMIDE 40 MG TABLET (FP) PO SCH ×2 (06:27→16:51)
[2019-07-06] MEDS: TAMSULOSIN HCL 0.4 MG CAP PO SCH (08:24)
[2019-07-06] MEDS: LACTULOSE 20 GM/30 ML UDC (FOR ORAL USE ONLY) PO SCH ×4 (09:15→21:02)
[2019-07-06] MEDS: ACETAMINOPHEN 325 MG TABLET (FP) PO PRN ×2 (11:42→20:49)
[2019-07-06 12:12] LABS: HEMATOCRIT 17.4 % (35.4-49); MCH 31.3 pg (25.7-33.7); MCHC 36.6 g/dl (32.0-35.9); MEAN CELL VOLUME 85.5 fl (80-96); MEAN PLT VOLUME 9.3 fl (7.5-11.1); PLATELET COUNT 66 K/MM3 (134-434); RBC 2.03 M/mm3 (4.00-5.60); RDW 14.9 % (11.9-15.9); WHITE BLOOD COUNT 4.7 K/mm3 (4.0-10.0)
[2019-07-06 12:16] LABS: HEMOGLOBIN 6.4 GM/dL (11.7-16.9)
[2019-07-06] MEDS ORDERED: EPOETIN ALFA 2,000 UNIT/1 ML VIAL IVPUSH ONE (12:30)
[2019-07-06 12:47] LABS: ALBUMIN 2.4 g/dl (3.4-5.0); BILIRUBIN,TOTAL 0.7 mg/dL (0.2-1); BLOOD UREA NITROGEN 59.3 mg/dL (7-18); CALCIUM 7.4 mg/dL (8.5-10.1); CREATININE 5.6 mg/dL (0.55-1.3); MAGNESIUM 1.7 mg/dL (1.8-2.4); PHOSPHOROUS 4.6 mg/dL (2.5-4.9); POTASSIUM 3.8 mmol/L (3.5-5.1); TOT PROT 5.7 g/dl (6.4-8.2)
[2019-07-06 13:03] LABS: INR 1.32 (0.83-1.09); PROTHROMBIN TIME (PATIENT) 15.6 SEC (9.7-13.0)
[2019-07-06 13:05] LABS: ACTIVATED PTT 31.2 SECONDS (25.2-36.5)
--- NOTE | 2019-07-06 13:13 | PN ---
Progress Note (short form) - Note Progress Note: ENT per nursing staff right nasal packing came out overnight, (removed by patient vs falling out) pt had bleeding seen by hospitalist staff and packing placed right nasal cavity with control presently in hemodialysis Hgb low, transfusion planned PE NAD nasal packiing in place right and left, blood soaked in appearance but NO active bleeding oropharynx no active bleedingt Hemoglobin 10.2 -> 8.2 -> 6.4 over ~24 hours Impression: epistaxis recurrence after right nasal packing came out presently controlled resultant acute blood loss anemia being corrected via PRBC transfusion during dialysis Recommend: advised patient strongly to leave present nasal packing in place if packing comes out and pt has recurrence of bleeding then new packing will be required. best alternative to continue present packing for another 48-72 hours monitor Hgb, maintain as required Narayan Amaya MD FACS Problem List - Problems (1) Epistaxis Code(s): R04.0 - EPISTAXIS
--- NOTE | 2019-07-06 14:56 | PN ---
Progress Note (short form) - Note Progress Note: seen while on dialysis problems esrd epistaxis Active Medications Acetaminophen (Tylenol -) 650 mg PO Q6H PRN PRN Reason: PAIN OR FEVER Last Admin: 07/06/19 11:42 Dose: 650 mg Amlodipine Besylate (Norvasc -) 10 mg PO DAILY [facility] Clonidine (Catapres -) 0.1 mg PO BID [facility] Last Admin: 07/05/19 21:27 Dose: 0.1 mg Ferrous Sulfate (Feosol -) 325 mg PO DAILY [facility] Folic Acid (Folic Acid -) 1 mg PO DAILY [facility] Furosemide (Lasix -) 40 mg PO BID@0600,1400 [facility] Last Admin: 07/06/19 06:27 Dose: 40 mg Lactulose (Cephulac (Oral Use)) 20 gm PO QID [facility] Last Admin: 07/06/19 09:15 Dose: Not Given Spironolactone (Aldactone -) 50 mg PO DAILY [facility] Tamsulosin HCl (Flomax -) 0.4 mg PO DAILY@0830 [facility] Last Admin: 07/06/19 08:24 Dose: 0.4 mg Thiamine HCl (Vitamin B1 -) 100 mg PO DAILY [facility] Last Vital Signs Temp Pulse Resp BP Pulse Ox 98.8 F 87 18 130/70 99 07/06/19 11:25 07/06/19 14:30 07/06/19 14:30 07/06/19 14:30 07/06/19 09:00 CBC, BMP 07/06/19 11:30 07/06/19 11:30 hgb 6+ will transfuse during HD
--- NOTE | 2019-07-06 15:57 | PN ---
Progress Note, Physician Chief Complaint: Epistaxis ESRD on HD History of Present Illness: Previous notes and events reviewed awake and alert NAD Hg 6.4--s/p 2U PRBC transfusion during dialysis nasal packing noted with blood denies complaints of chest pain or SOB - Current Medication List Current Medications: Active Medications Acetaminophen (Tylenol -) 650 mg PO Q6H PRN PRN Reason: PAIN OR FEVER Last Admin: 07/06/19 11:42 Dose: 650 mg Amlodipine Besylate (Norvasc -) 10 mg PO DAILY [facility] Clonidine (Catapres -) 0.1 mg PO BID [facility] Last Admin: 07/05/19 21:27 Dose: 0.1 mg Ferrous Sulfate (Feosol -) 325 mg PO DAILY [facility] Folic Acid (Folic Acid -) 1 mg PO DAILY [facility] Furosemide (Lasix -) 40 mg PO BID@0600,1400 [facility] Last Admin: 07/06/19 06:27 Dose: 40 mg Lactulose (Cephulac (Oral Use)) 20 gm PO QID [facility] Last Admin: 07/06/19 09:15 Dose: Not Given Spironolactone (Aldactone -) 50 mg PO DAILY [facility] Tamsulosin HCl (Flomax -) 0.4 mg PO DAILY@0830 [facility] Last Admin: 07/06/19 08:24 Dose: 0.4 mg Thiamine HCl (Vitamin B1 -) 100 mg PO DAILY [facility] Vital Signs: Vital Signs Temperature 98.8 F 07/06/19 11:25 Pulse Rate 92 H 07/06/19 15:00 Respiratory Rate 18 07/06/19 15:00 Blood Pressure 124/66 07/06/19 15:00 O2 Sat by Pulse Oximetry (%) 99 07/06/19 09:00 Constitutional: Yes: No Distress, Calm Eyes: Yes: Conjunctiva Clear HENT: Yes: Atraumatic, Other (nasal packing) Cardiovascular: Yes: Regular Rate and Rhythm Respiratory: Yes: Regular, CTA Bilaterally Gastrointestinal: Yes: Normal Bowel Sounds, Soft Musculoskeletal: Yes: WNL Extremities: Yes: WNL, Other (Fistula RUE) Edema: No Neurological: Yes: Alert, Oriented Psychiatric: Yes: Alert, Oriented Labs: CBC, BMP 07/06/19 11:30 07/06/19 11:30 INR, PTT INR 1.32 (0.83-1.09) H 07/06/19 12:20 Problem List - Problems (1) ESRD on dialysis Assessment/Plan: -ESRD on HD -BUN/Cr 59.3/1.6 -monitor renal function daily -continue dialysis on scheduled -renal diet Code(s): N18.6 - END STAGE RENAL DISEASE; Z99.2 - DEPENDENCE ON RENAL DIALYSIS (2) Epistaxis Assessment/Plan: -ENT on board -nasal packing for next 48-72hrs -monitor Hg and transfuse for Hg <8.0 -consider packing removal 07/08-07/09 Code(s): R04.0 - EPISTAXIS (3) Essential hypertension Assessment/Plan: -Catapres, Amlodipine, Aldactone -low Na diet Code(s): I10 - ESSENTIAL (PRIMARY) HYPERTENSION Assessment/Plan see problem list dvt ppx
[2019-07-06] MEDS: SPIRONOLACTONE 25 MG TABLET (FP) PO SCH (16:51)
[2019-07-06] MEDS: FOLIC ACID 1 MG TABLET (FP) PO SCH (16:51)
[2019-07-06] MEDS: FERROUS SO4 325 MG TABLET (FP) PO SCH (16:51)
[2019-07-06] MEDS: cloNIDine HCL 0.1 MG TABLET PO SCH ×2 (16:51→21:02)
[2019-07-06] MEDS: amLODIPine BESYLATE 10 MG TABLET (FP) PO SCH (16:51)
[2019-07-06] MEDS: THIAMINE HCL 100 MG TABLET (FP) PO SCH (16:52)
[2019-07-06] MEDS ORDERED: diphenhydrAMINE HCL 25 MG CAPSULE (FP) PO ONE (19:37)
[2019-07-06] MEDS ORDERED: BISMUTH SUBSALICYLATE 524 MG/30 ML UD PO PRN (19:38)
[2019-07-06] MEDS ORDERED: PT OWN MED DRAWER 7, Y5N ONE (20:38)
--- NOTE | 2019-07-06 22:01 | HOSP ---
Physical Examination Vital Signs: Vital Signs Temperature 98.5 F 07/06/19 16:30 Pulse Rate 95 H 07/06/19 16:30 Respiratory Rate 20 07/06/19 16:30 Blood Pressure 130/77 07/06/19 16:30 O2 Sat by Pulse Oximetry (%) 100 07/06/19 15:00 Labs: CBC, BMP 07/06/19 11:30 07/06/19 11:30 Hospitalist Encounter Assessment: Seen pt at bedside. Pt compaining of upper right arm pain at the site of his AV Fistula, describes as tight and achy 09/05. Pt states it has only been used three times and this evening after is was used he felt tightness. Slight swelling noted. Bruit and Thrill present. Vascular consulted.
[2019-07-07] MEDS: FUROSEMIDE 40 MG TABLET (FP) PO SCH ×2 (06:28→13:27)
[2019-07-07 07:49] LABS: HEMATOCRIT 20.4 % (35.4-49); HEMOGLOBIN 7.2 GM/dL (11.7-16.9); MCH 30.7 pg (25.7-33.7); MCHC 35.3 g/dl (32.0-35.9); MEAN CELL VOLUME 86.9 fl (80-96); MEAN PLT VOLUME 9.1 fl (7.5-11.1); PLATELET COUNT 53 K/MM3 (134-434); RBC 2.35 M/mm3 (4.00-5.60); RDW 14.9 % (11.9-15.9); WHITE BLOOD COUNT 2.3 K/mm3 (4.0-10.0)
[2019-07-07 08:20] LABS: ALBUMIN 2.4 g/dl (3.4-5.0); BILIRUBIN,TOTAL 1.1 mg/dL (0.2-1); BLOOD UREA NITROGEN 31.3 mg/dL (7-18); CALCIUM 7.7 mg/dL (8.5-10.1); POTASSIUM 3.5 mmol/L (3.5-5.1); TOT PROT 5.5 g/dl (6.4-8.2)
[2019-07-07] MEDS: TAMSULOSIN HCL 0.4 MG CAP PO SCH (09:19)
[2019-07-07] MEDS: FERROUS SO4 325 MG TABLET (FP) PO SCH (09:20)
[2019-07-07] MEDS: LACTULOSE 20 GM/30 ML UDC (FOR ORAL USE ONLY) PO SCH ×4 (09:20→21:34)
[2019-07-07] MEDS: cloNIDine HCL 0.1 MG TABLET PO SCH ×2 (09:20→21:33)
[2019-07-07] MEDS: THIAMINE HCL 100 MG TABLET (FP) PO SCH (09:20)
[2019-07-07] MEDS: SPIRONOLACTONE 25 MG TABLET (FP) PO SCH (09:20)
[2019-07-07] MEDS: FOLIC ACID 1 MG TABLET (FP) PO SCH (09:20)
[2019-07-07] MEDS: amLODIPine BESYLATE 10 MG TABLET (FP) PO SCH (09:21)
--- NOTE | 2019-07-07 09:25 | CONSULT ---
Consult - text type - Consultation Consultation Note: 48 year old man ESRD recently started HD with a right upper arm fistula. Following dialysis yesterday he complained of pain and swelling in arm. Today there is ecchymosis around the fistula. The access has a good thrill. No arm swelling. Imp: Infiltration of fistula., no evidence for onfgoing bleeding or pseudoaneurysm. Rec: Analgesia, ice packs, arm elevation.
[2019-07-07] MEDS: ACETAMINOPHEN 325 MG TABLET (FP) PO PRN (13:27)
--- NOTE | 2019-07-07 14:21 | PN ---
Progress Note, Physician Chief Complaint: Epistaxis ESRD on HD History of Present Illness: Previous notes and events reviewed awake and alert NAD Hg 7.2-spoke with renal Dr Schroeder, patient is not symptomatic, will repeat CBC in am and patient will have emergency diaylsis for blood transfusion tomorrow nasal packing in place denies complaints of chest pain or SOB complain of pain to R arm fistula complain of frequent headaches - Current Medication List Current Medications: Active Medications Acetaminophen (Tylenol -) 650 mg PO Q6H PRN PRN Reason: PAIN OR FEVER Last Admin: 07/07/19 13:27 Dose: 650 mg Amlodipine Besylate (Norvasc -) 10 mg PO DAILY [facility] Last Admin: 07/07/19 09:21 Dose: 10 mg Bismuth Subsalicylate (Pepto-Bismol -) 524 mg PO DAILY PRN PRN Reason: DIARRHEA Last Admin: 07/07/19 00:50 Dose: 524 mg Clonidine (Catapres -) 0.1 mg PO BID [facility] Last Admin: 07/07/19 09:20 Dose: Not Given Ferrous Sulfate (Feosol -) 325 mg PO DAILY [facility] Last Admin: 07/07/19 09:20 Dose: 325 mg Folic Acid (Folic Acid -) 1 mg PO DAILY [facility] Last Admin: 07/07/19 09:20 Dose: 1 mg Furosemide (Lasix -) 40 mg PO BID@0600,1400 [facility] Last Admin: 07/07/19 13:27 Dose: 40 mg Lactulose (Cephulac (Oral Use)) 20 gm PO QID [facility] Last Admin: 07/07/19 13:28 Dose: Not Given Spironolactone (Aldactone -) 50 mg PO DAILY [facility] Last Admin: 07/07/19 09:20 Dose: 50 mg Tamsulosin HCl (Flomax -) 0.4 mg PO DAILY@0830 [facility] Last Admin: 07/07/19 09:19 Dose: 0.4 mg Thiamine HCl (Vitamin B1 -) 100 mg PO DAILY [facility] Last Admin: 07/07/19 09:20 Dose: 100 mg - Objective Vital Signs: Vital Signs Temperature 99.1 F 07/07/19 09:08 Pulse Rate 73 07/07/19 09:08 Respiratory Rate 18 07/07/19 09:08 Blood Pressure 108/45 L 07/07/19 14:12 O2 Sat by Pulse Oximetry (%) 100 07/07/19 09:00 Constitutional: Yes: No Distress, Calm Eyes: Yes: Conjunctiva Clear HENT: Yes: Atraumatic, Other (nasal packing) Cardiovascular: Yes: Regular Rate and Rhythm Respiratory: Yes: Regular, CTA Bilaterally Gastrointestinal: Yes: Normal Bowel Sounds, Soft Musculoskeletal: Yes: WNL Extremities: Yes: WNL Edema: No Neurological: Yes: Alert, Oriented Psychiatric: Yes: Alert, Oriented Labs: CBC, BMP 07/07/19 07:12 07/07/19 07:12 INR, PTT INR 1.32 (0.83-1.09) H 07/06/19 12:20 Problem List - Problems (1) ESRD on dialysis Assessment/Plan: -ESRD on HD -BUN/Cr 31.3/4.0 -monitor renal function daily -continue dialysis on scheduled -renal diet Code(s): N18.6 - END STAGE RENAL DISEASE; Z99.2 - DEPENDENCE ON RENAL DIALYSIS (2) Epistaxis Assessment/Plan: -ENT on board -nasal packing for next 48-72hrs -monitor Hg and transfuse for Hg <8.0 -consider packing removal 07/08-07/09 Code(s): R04.0 - EPISTAXIS (3) Essential hypertension Assessment/Plan: -Catapres, Amlodipine, Aldactone -low Na diet Code(s): I10 - ESSENTIAL (PRIMARY) HYPERTENSION (4) Thrombocytopenia Assessment/Plan: -Plt 53 -Hematology consult Code(s): D69.6 - THROMBOCYTOPENIA, UNSPECIFIED (5) Anemia Assessment/Plan: -Hg 7.2 -spoke with renal Dr Schroeder, patient is not symptomatic, will repeat CBC in am and patient will have emergency diaylsis for blood transfusion tomorrow -transfuse during dialysis to avoid fluid overload -monitor Hg daily -Ferrous sulfate, Folic Acid Code(s): D64.9 - ANEMIA, UNSPECIFIED (6) Pain from arteriovenous fistula Assessment/Plan: -Vascular on board -apply ice pack -arm elevation -pain control Code(s): T82.848A - PAIN DUE TO VASCULAR PROSTH DEV/GRFT, INITIAL ENCOUNTER (7) Headache Assessment/Plan: -pain control -Head CT scan Code(s): R51 - HEADACHE Assessment/Plan see problem list
[2019-07-07] MEDS ORDERED: diphenhydrAMINE HCL 25 MG CAPSULE (FP) PO ONE (20:52)
[2019-07-07] MEDS ORDERED: ACETAMINOPHEN 325 MG TABLET (FP) PO ONE (21:00)
[2019-07-07] MEDS ORDERED: oxyCODONE HCL 5 MG TABLET PO ONE (21:00)
--- NOTE | 2019-07-07 22:34 | PN ---
Progress Note (short form) - Note Progress Note: seen while on dialysis problems esrd epistaxis Current Medications Acetaminophen (Tylenol -) 650 mg PO Q6H PRN PRN Reason: PAIN OR FEVER Last Admin: 07/07/19 13:27 Dose: 650 mg Amlodipine Besylate (Norvasc -) 10 mg PO DAILY [facility] Last Admin: 07/07/19 09:21 Dose: 10 mg Bismuth Subsalicylate (Pepto-Bismol -) 524 mg PO DAILY PRN PRN Reason: DIARRHEA Last Admin: 07/07/19 00:50 Dose: 524 mg Clonidine (Catapres -) 0.1 mg PO BID [facility] Last Admin: 07/07/19 21:33 Dose: 0.1 mg Ferrous Sulfate (Feosol -) 325 mg PO DAILY [facility] Last Admin: 07/07/19 09:20 Dose: 325 mg Folic Acid (Folic Acid -) 1 mg PO DAILY [facility] Last Admin: 07/07/19 09:20 Dose: 1 mg Furosemide (Lasix -) 40 mg PO BID@0600,1400 [facility] Last Admin: 07/07/19 13:27 Dose: 40 mg Lactulose (Cephulac (Oral Use)) 20 gm PO QID [facility] Last Admin: 07/07/19 21:34 Dose: 20 gm Spironolactone (Aldactone -) 50 mg PO DAILY [facility] Last Admin: 07/07/19 09:20 Dose: 50 mg Tamsulosin HCl (Flomax -) 0.4 mg PO DAILY@0830 [facility] Last Admin: 07/07/19 09:19 Dose: 0.4 mg Thiamine HCl (Vitamin B1 -) 100 mg PO DAILY [facility] Last Admin: 07/07/19 09:20 Dose: 100 mg Last Vital Signs Temp Pulse Resp BP Pulse Ox 97.7 F 80 18 113/67 100 07/07/19 21:00 07/07/19 21:00 07/07/19 21:00 07/07/19 21:00 07/07/19 09:00 Lungs clear Heart reg ext no edema CBC, BMP 07/07/19 07:12 07/07/19 07:12 CBC, BMP 07/06/19 11:30 07/06/19 11:30 severe anemia may need transfusion due to dropping h/h Plan- orders for transfusion and hd if h/h is low 2 units for hgb less than 7, one unit for hgb less than 8
[2019-07-07] MEDS ORDERED: SODIUM CHLORIDE 250 ML IV PRN (22:35)
[2019-07-08] MEDS: FUROSEMIDE 40 MG TABLET (FP) PO SCH ×2 (06:18→15:52)
[2019-07-08 07:51] LABS: HEMATOCRIT 22.9 % (35.4-49); HEMOGLOBIN 7.9 GM/dL (11.7-16.9); MCH 30.8 pg (25.7-33.7); MCHC 34.6 g/dl (32.0-35.9); MEAN PLT VOLUME 9.5 fl (7.5-11.1); PLATELET COUNT 77 K/MM3 (134-434); RBC 2.57 M/mm3 (4.00-5.60); RDW 15.6 % (11.9-15.9); WHITE BLOOD COUNT 4.6 K/mm3 (4.0-10.0)
[2019-07-08 08:06] LABS: ALBUMIN 2.7 g/dl (3.4-5.0); BILIRUBIN,TOTAL 0.4 mg/dL (0.2-1); BLOOD UREA NITROGEN 45.2 mg/dL (7-18); CALCIUM 7.8 mg/dL (8.5-10.1); CREATININE 5.4 mg/dL (0.55-1.3); POTASSIUM 3.3 mmol/L (3.5-5.1); TOT PROT 6.1 g/dl (6.4-8.2)
--- NOTE | 2019-07-08 08:46 | PN ---
Progress Note, Physician - Current Medication List Current Medications: Active Medications Acetaminophen (Tylenol -) 650 mg PO Q6H PRN PRN Reason: PAIN OR FEVER Last Admin: 07/07/19 13:27 Dose: 650 mg Amlodipine Besylate (Norvasc -) 10 mg PO DAILY [facility] Last Admin: 07/07/19 09:21 Dose: 10 mg Bismuth Subsalicylate (Pepto-Bismol -) 524 mg PO DAILY PRN PRN Reason: DIARRHEA Last Admin: 07/07/19 00:50 Dose: 524 mg Clonidine (Catapres -) 0.1 mg PO BID [facility] Last Admin: 07/07/19 21:33 Dose: 0.1 mg Ferrous Sulfate (Feosol -) 325 mg PO DAILY [facility] Last Admin: 07/07/19 09:20 Dose: 325 mg Folic Acid (Folic Acid -) 1 mg PO DAILY [facility] Last Admin: 07/07/19 09:20 Dose: 1 mg Furosemide (Lasix -) 40 mg PO BID@0600,1400 [facility] Last Admin: 07/08/19 06:18 Dose: 40 mg Sodium Chloride (Normal Saline -) 250 mls @ 3,000 mls/hr IV PRN PRN PRN Reason: Hypotension during Dialysis Stop: 07/08/19 22:35 Lactulose (Cephulac (Oral Use)) 20 gm PO QID [facility] Last Admin: 07/07/19 21:34 Dose: 20 gm Spironolactone (Aldactone -) 50 mg PO DAILY [facility] Last Admin: 07/07/19 09:20 Dose: 50 mg Tamsulosin HCl (Flomax -) 0.4 mg PO DAILY@0830 [facility] Last Admin: 07/07/19 09:19 Dose: 0.4 mg Thiamine HCl (Vitamin B1 -) 100 mg PO DAILY [facility] Last Admin: 07/07/19 09:20 Dose: 100 mg - Objective Vital Signs: Vital Signs Temperature 98.0 F 07/08/19 06:00 Pulse Rate 62 07/08/19 06:00 Respiratory Rate 18 07/08/19 06:00 Blood Pressure 125/76 07/08/19 06:00 O2 Sat by Pulse Oximetry (%) 100 07/07/19 21:00 Labs: CBC, BMP 07/08/19 06:30 07/08/19 06:30 INR, PTT INR 1.32 (0.83-1.09) H 07/06/19 12:20
--- NOTE | 2019-07-08 12:33 | PN ---
Progress Note, Physician History of Present Illness: Pt seen and examined at bedside. He is tolerating HD. - Current Medication List Current Medications: Active Medications Acetaminophen (Tylenol -) 650 mg PO Q6H PRN PRN Reason: PAIN OR FEVER Last Admin: 07/07/19 13:27 Dose: 650 mg Amlodipine Besylate (Norvasc -) 10 mg PO DAILY [facility] Last Admin: 07/07/19 09:21 Dose: 10 mg Bismuth Subsalicylate (Pepto-Bismol -) 524 mg PO DAILY PRN PRN Reason: DIARRHEA Last Admin: 07/07/19 00:50 Dose: 524 mg Clonidine (Catapres -) 0.1 mg PO BID [facility] Last Admin: 07/07/19 21:33 Dose: 0.1 mg Ferrous Sulfate (Feosol -) 325 mg PO DAILY [facility] Last Admin: 07/07/19 09:20 Dose: 325 mg Folic Acid (Folic Acid -) 1 mg PO DAILY [facility] Last Admin: 07/07/19 09:20 Dose: 1 mg Furosemide (Lasix -) 40 mg PO BID@0600,1400 [facility] Last Admin: 07/08/19 06:18 Dose: 40 mg Sodium Chloride (Normal Saline -) 250 mls @ 3,000 mls/hr IV PRN PRN PRN Reason: Hypotension during Dialysis Stop: 07/08/19 22:35 Lactulose (Cephulac (Oral Use)) 20 gm PO QID [facility] Last Admin: 07/07/19 21:34 Dose: 20 gm Spironolactone (Aldactone -) 50 mg PO DAILY [facility] Last Admin: 07/07/19 09:20 Dose: 50 mg Tamsulosin HCl (Flomax -) 0.4 mg PO DAILY@0830 [facility] Last Admin: 07/07/19 09:19 Dose: 0.4 mg Thiamine HCl (Vitamin B1 -) 100 mg PO DAILY [facility] Last Admin: 07/07/19 09:20 Dose: 100 mg - Objective Vital Signs: Vital Signs Temperature 98.2 F 07/08/19 08:55 Pulse Rate 68 07/08/19 11:58 Respiratory Rate 18 07/08/19 11:58 Blood Pressure 134/72 07/08/19 11:58 O2 Sat by Pulse Oximetry (%) 100 07/07/19 21:00 Constitutional: Yes: Calm Eyes: Yes: Conjunctiva Clear HENT: Yes: Atraumatic Neck: Yes: Supple Cardiovascular: Yes: S1, S2 Respiratory: Yes: CTA Bilaterally Gastrointestinal: Yes: Soft Genitourinary: Yes: WNL Musculoskeletal: Yes: WNL Edema: No Neurological: Yes: Oriented Psychiatric: Yes: Oriented Labs: CBC, BMP 07/08/19 06:30 07/08/19 06:30 INR, PTT INR 1.32 (0.83-1.09) H 07/06/19 12:20 Problem List - Problems (1) ESRD (end stage renal disease) on dialysis Code(s): N18.6 - END STAGE RENAL DISEASE; Z99.2 - DEPENDENCE ON RENAL DIALYSIS (2) Epistaxis Code(s): R04.0 - EPISTAXIS (3) S/P TIPS (transjugular intrahepatic portosystemic shunt) Code(s): Z95.828 - PRESENCE OF OTHER VASCULAR IMPLANTS AND GRAFTS Assessment/Plan Current Medications Generic Name Dose Route Start Last Admin Trade Name Freq PRN Reason Stop Dose Admin Acetaminophen 650 mg 07/05/19 20:43 07/07/19 13:27 Tylenol - PO 650 mg Q6H PRN Administration PAIN OR FEVER Amlodipine Besylate 10 mg 07/06/19 10:00 07/07/19 09:21 Norvasc - PO 10 mg DAILY [facility] Administration Bismuth Subsalicylate 524 mg 07/06/19 19:38 07/07/19 00:50 Pepto-Bismol - PO 524 mg DAILY PRN Administration DIARRHEA Clonidine 0.1 mg 07/05/19 22:00 07/07/19 21:33 Catapres - PO 0.1 mg BID [facility] Administration Ferrous Sulfate 325 mg 07/06/19 10:00 07/07/19 09:20 Feosol - PO 325 mg DAILY [facility] Administration Folic Acid 1 mg 07/06/19 10:00 07/07/19 09:20 Folic Acid - PO 1 mg DAILY [facility] Administration Furosemide 40 mg 07/06/19 06:00 07/08/19 06:18 Lasix - PO 40 mg BID@0600,1400 [facility] Administration Sodium Chloride 250 mls @ 3,000 mls/hr 07/07/19 22:35 Normal Saline - IV 07/08/19 22:35 PRN PRN Hypotension during Dialysis Lactulose 20 gm 07/05/19 18:00 07/07/19 21:34 Cephulac (Oral Use) PO 20 gm QID [facility] Administration Spironolactone 50 mg 07/06/19 10:00 07/07/19 09:20 Aldactone - PO 50 mg DAILY [facility] Administration Tamsulosin HCl 0.4 mg 07/06/19 08:30 07/07/19 09:19 Flomax - PO 0.4 mg DAILY@0830 [facility] Administration Thiamine HCl 100 mg 07/06/19 10:00 07/07/19 09:20 Vitamin B1 - PO 100 mg DAILY [facility] Administration Impression 1. ESRD 2. epistaxis 3. hx etoh abuse 4. liver cirrhosis with tips 5. anemia Plan - HD today - pt still with nasal packing - monitor bp - 4 :15 180 abf 400 3 k bath
[2019-07-08] MEDS: SPIRONOLACTONE 25 MG TABLET (FP) PO SCH (13:26)
[2019-07-08] MEDS: cloNIDine HCL 0.1 MG TABLET PO SCH ×2 (13:26→21:59)
[2019-07-08] MEDS: FOLIC ACID 1 MG TABLET (FP) PO SCH (13:27)
[2019-07-08] MEDS: amLODIPine BESYLATE 10 MG TABLET (FP) PO SCH (13:27)
[2019-07-08] MEDS: TAMSULOSIN HCL 0.4 MG CAP PO SCH (13:27)
[2019-07-08] MEDS: LACTULOSE 20 GM/30 ML UDC (FOR ORAL USE ONLY) PO SCH ×4 (13:27→21:59)
[2019-07-08] MEDS: FERROUS SO4 325 MG TABLET (FP) PO SCH (13:27)
[2019-07-08] MEDS: THIAMINE HCL 100 MG TABLET (FP) PO SCH (13:28)
[2019-07-08] MEDS ORDERED: LIDOCAINE HCL 5% TOP OINTMENT 50 GM TUBE TP ONE (13:49)
--- NOTE | 2019-07-08 13:49 | PN ---
Progress Note (short form) - Note Progress Note: Vascular surgery Pt seen and examined. Doing well. Having lunch Pt had access made at [facility]. CC - Pt complaining of pain at site of AVF. Mainly after HD. Recc lidocaine gel to be placed 1 hour prior to HD Access has good bruit and thrill. Antonio May DO
--- NOTE | 2019-07-08 18:23 | PN ---
Progress Note (short form) - Note Progress Note: ENT no further bleeding pt received 2 units PRBC on 07-06, and another unit today during HD AV fistula discomfort noted but fistula is functioning well PE NAD packing out right, no bleeding, breathing satisfactory left packing in place oropharynx, no blood Impression: epistaxis controlled blood loss created anemia, rx transfusion 3 units CRF/HD, fistula discomfort but functioning well Recommend: assuming Hgb is stable and no further bleeding plan to remove packing tomorrow Narayan Amaya MD FACS Problem List - Problems (1) Epistaxis Code(s): R04.0 - EPISTAXIS
--- NOTE | 2019-07-08 20:16 | CONSULT ---
Consult - text type - Consultation Consultation Note: 48 yo M, with PMH of HTN, HLD, NIDDM, CKD (on HD T/R/Sat), cirrhosis 2/2 chronic alcohol abuse (s/p TIPS), and depression, who is presenting with complaints of nose bleeding. Pt states he forgot to take his BP medication , and woke up with nausea Per patient he was feeling nauseous and felt like vomitting, his head felt heavy and he felt his nose was stuffed up so went to blow his nose and then epistaxis started which stopped intermittently with pressure. Pt came to the ED when the bleeding continued. Pt denies any recent fevers/chills, headache, vision changes, syncope, chest pain, palpitations, SOB, vomiting, abdominal pain , urinary symptoms, diarrhea/constipation, or leg swelling. in ER patient got bilateral nasal packing and afrin spray unasyn and zofran one dose History Source: Patient - Past Medical History Cardiovascular: Yes: HTN, Hyperlipdemia Hepatobiliary: Yes: Cirrhosis Renal/: Yes: Renal Inusuff, Hematuria, Hemodialysis Heme/Onc: Yes: Anemia Endocrine: Yes: Diabetes Mellitus - Smoking History Smoking history: Unknown if ever smoked Have you smoked in the past 12 months: Yes Aproximately how many cigarettes per day: 2 If you are a former smoker, when did you quit?: 2010 - Alcohol/Substance Use Hx Alcohol Use: Yes Home Medications - Allergies Allergies/Adverse Reactions: Allergies Allergy/AdvReac Type Severity Reaction Status Date / Time shellfish derived Allergy Severe Swelling Verified 07/05/18 05:10 Fish Containing Products Allergy Intermediate Itching Verified 07/07/18 21:17 - Home Medications Home Medications: Ambulatory Orders Folic Acid - 1 mg PO DAILY #30 tablet 09/27/17 Multivitamin [One Daily] 1 each PO DAILY #30 tablet 09/27/17 Thiamine HCl [Vitamin B1 -] 100 mg PO DAILY #30 tablet 09/27/17 Ferrous Sulfate 325 mg PO DAILY 04/30/18 Amlodipine Besylate [Norvasc -] 10 mg PO DAILY #30 tab 05/08/18 Furosemide [Lasix -] 40 mg PO BID@0600,1400 #60 tablet 05/08/18 Lactulose (Oral Use) [Cephulac -] 20 gm PO BID #1800 ml 05/08/18 Tamsulosin HCl [Flomax -] 0.4 mg PO DAILY@0830 #30 cap.er.24h 05/08/18 Triamcinolone 0.5% Ointment [Aristocort 0.5% Ointment -] 1 applic TP BID #45 g 05/08/18 cloNIDine HCL [Catapres -] 0.1 mg PO BID #60 tablet 05/08/18 hydrOXYzine HCL [Atarax -] 50 mg PO Q6H PRN #360 tablet 05/08/18 Acetaminophen [Tylenol .Regular Strength -] 650 mg PO Q6H PRN tablet 07/08/18 Amlodipine Besylate [Norvasc -] 10 mg PO DAILY #0 tablet 07/08/18 Thiamine HCl [Vitamin B1 -] 100 mg PO DAILY #30 tablet 07/08/18 cloNIDine HCL [Catapres -] 0.1 mg PO BID tablet 07/08/18 oxyCODONE HCL [Roxicodone -] 5 mg PO Q6H PRN #20 tablet MDD 4 07/08/18 traMADol HCL [Ultram -] 50 mg PO Q6H PRN #20 tablet MDD 4 07/08/18 Spironolactone [Aldactone -] 50 mg PO DAILY #30 tablet 07/10/18 Triamcinolone 0.5% Ointment [Aristocort 0.5% Ointment -] 0 gm TP BID #45 gm Active Medications Generic Name Dose Route Start Last Admin Trade Name Freq PRN Reason Stop Dose Admin Acetaminophen 650 mg 07/05/19 20:43 07/08/19 21:59 Tylenol - PO 650 mg Q6H PRN Administration PAIN OR FEVER Acetaminophen 325 mg 07/08/19 21:00 Tylenol - PO Q6HPO PRN PAIN LEVEL 6-10 Amlodipine Besylate 10 mg 07/06/19 10:00 07/08/19 13:27 Norvasc - PO 10 mg DAILY DEV Administration Bismuth Subsalicylate 524 mg 07/06/19 19:38 07/07/19 00:50 Pepto-Bismol - PO 524 mg DAILY PRN Administration DIARRHEA Clonidine 0.1 mg 07/05/19 22:00 07/08/19 21:59 Catapres - PO 0.1 mg BID DEV Administration Ferrous Sulfate 325 mg 07/06/19 10:00 07/08/19 13:27 Feosol - PO 325 mg DAILY DEV Administration Folic Acid 1 mg 07/06/19 10:00 07/08/19 13:27 Folic Acid - PO 1 mg DAILY DEV Administration Furosemide 40 mg 07/06/19 06:00 07/08/19 15:52 Lasix - PO 40 mg BID@0600,1400 DEV Administration Sodium Chloride 250 mls @ 3,000 mls/hr 07/07/19 22:35 Normal Saline - IV 07/08/19 22:35 PRN PRN Hypotension during Dialysis Lactulose 20 gm 07/05/19 18:00 07/08/19 21:59 Cephulac (Oral Use) PO 20 gm QID DEV Administration Melatonin 3 mg 07/08/19 23:41 07/08/19 23:58 Melatonin PO 3 mg HS DEV Administration Oxycodone HCl 5 mg 07/08/19 21:00 07/08/19 22:02 Roxicodone - PO 5 mg Q6HPO PRN Administration PAIN LEVEL 6-10 Spironolactone 50 mg 07/06/19 10:00 07/08/19 13:26 Aldactone - PO 50 mg DAILY DEV Administration Tamsulosin HCl 0.4 mg 07/06/19 08:30 07/08/19 13:27 Flomax - PO 0.4 mg DAILY@0830 DEV Administration Thiamine HCl 100 mg 07/06/19 10:00 07/08/19 13:28 Vitamin B1 - PO 100 mg DAILY DEV Administration Family Disease History - Family Disease History Family Disease History: Diabetes: Father (alive ) Physical Examination Vital Signs: Last Vital Signs Temp Pulse Resp BP Pulse Ox 98.5 F 66 18 109/63 100 07/08/19 19:21 07/08/19 19:21 07/08/19 19:21 07/08/19 19:21 07/07/19 21:00 Constitutional: Yes: Calm HENT: Yes: Epistaxis, Other (nasal packing) Neck: Yes: Trachea Midline Cardiovascular: Yes: Regular Rate and Rhythm, S1, S2 Respiratory: Yes: CTA Bilaterally Gastrointestinal: Yes: Normal Bowel Sounds, Soft Labs: CBC, BMP 07/05/19 10:25 07/05/19 11:00 A/P 48 y/o patient with cirrhosis, s/p TIPS several yrs. ago, followed by DR. Ring at [facility], ESRD, on dialusis for 10 monhs, chronic thrombocytopenia, comes in with epistaxis Chronic thrombocytopenia -- due to cirrhosis baseline 60s to 100s Transfuse if actively bleeding and <100,000 Coags normal Seen by ENT for remval of nasal packing in am
[2019-07-08] MEDS ORDERED: ACETAMINOPHEN 325 MG TABLET (FP) PO PRN (21:00)
[2019-07-08] MEDS: ACETAMINOPHEN 325 MG TABLET (FP) PO PRN (21:59)
[2019-07-08] MEDS: oxyCODONE HCL 5 MG TABLET PO PRN (22:02)
[2019-07-08] MEDS: MELATONIN 1 MG TABLET PO SCH (23:58)
[2019-07-09] MEDS: FUROSEMIDE 40 MG TABLET (FP) PO SCH ×2 (06:26→13:31)
[2019-07-09 07:44] LABS: HEMATOCRIT 21.4 % (35.4-49); HEMOGLOBIN 7.5 GM/dL (11.7-16.9); MCH 30.9 pg (25.7-33.7); MEAN CELL VOLUME 88.3 fl (80-96); MEAN PLT VOLUME 9.1 fl (7.5-11.1); PLATELET COUNT 54 K/MM3 (134-434); RBC 2.42 M/mm3 (4.00-5.60); RDW 14.8 % (11.9-15.9); WHITE BLOOD COUNT 2.6 K/mm3 (4.0-10.0)
[2019-07-09] MEDS: TAMSULOSIN HCL 0.4 MG CAP PO SCH (08:00)
--- NOTE | 2019-07-09 08:04 | PN ---
Progress Note (short form) - Note Progress Note: ENT no further bleeding Hematology consultation reviewed for hemodialysis today pt reports seasonal and perennial allergies reports skin testing in past, had reactions to all but 4-5 allergens. VSS PE: NAD, awake, alert nose: no bleeding right, left packing in place, no bleeding oropharynx no blood left nasal packing removed - initially deflated, observed, no bleeding, then completely removed left nasal cavity examined with anterior rhinoscopy, airway patent inferiorly, no active bleeding, thick sl yellow mucus noted, few foci of old blood present Impression: epistaxis, resolved all nasal packing is out CRF/on hemodialysis, associated thrombocytopenia cirrhosis with associated coagulopathy Recommeend: continue observation nasal saline spray if no further bleeding tonight, ok for discharge in AM from ENT perspective ENT outpatient follow-up for bleeding and seasonal/perennial allergic rhinitis Narayan Amaya MD FACS Problem List - Problems (1) Epistaxis Code(s): R04.0 - EPISTAXIS
[2019-07-09] MEDS: LACTULOSE 20 GM/30 ML UDC (FOR ORAL USE ONLY) PO SCH ×4 (09:22→21:46)
[2019-07-09] MEDS: amLODIPine BESYLATE 10 MG TABLET (FP) PO SCH (09:22)
[2019-07-09] MEDS: THIAMINE HCL 100 MG TABLET (FP) PO SCH (09:22)
[2019-07-09] MEDS: FERROUS SO4 325 MG TABLET (FP) PO SCH (09:22)
[2019-07-09] MEDS: SPIRONOLACTONE 25 MG TABLET (FP) PO SCH (09:22)
[2019-07-09] MEDS: cloNIDine HCL 0.1 MG TABLET PO SCH ×2 (09:22→21:39)
[2019-07-09] MEDS: FOLIC ACID 1 MG TABLET (FP) PO SCH (09:22)
[2019-07-09] MEDS ORDERED: SODIUM CHLORIDE 250 ML IV PRN (14:15)
--- NOTE | 2019-07-09 14:15 | PN ---
Progress Note, Physician History of Present Illness: Pt seen and examined at bedside. He is awake and alert. he denies shortness of breath. He has not had any bleeding. - Current Medication List Current Medications: Active Medications Acetaminophen (Tylenol -) 650 mg PO Q6H PRN PRN Reason: PAIN OR FEVER Last Admin: 07/08/19 21:59 Dose: 650 mg Acetaminophen (Tylenol -) 325 mg PO Q6HPO PRN PRN Reason: PAIN LEVEL 6-10 Amlodipine Besylate (Norvasc -) 10 mg PO DAILY [facility] Last Admin: 07/09/19 09:22 Dose: 10 mg Bismuth Subsalicylate (Pepto-Bismol -) 524 mg PO DAILY PRN PRN Reason: DIARRHEA Last Admin: 07/07/19 00:50 Dose: 524 mg Clonidine (Catapres -) 0.1 mg PO BID [facility] Last Admin: 07/09/19 09:22 Dose: 0.1 mg Ferrous Sulfate (Feosol -) 325 mg PO DAILY [facility] Last Admin: 07/09/19 09:22 Dose: 325 mg Folic Acid (Folic Acid -) 1 mg PO DAILY [facility] Last Admin: 07/09/19 09:22 Dose: 1 mg Furosemide (Lasix -) 40 mg PO BID@0600,1400 [facility] Last Admin: 07/09/19 13:31 Dose: 40 mg Sodium Chloride (Normal Saline -) 250 mls @ 3,000 mls/hr IV PRN PRN PRN Reason: Hypotension during Dialysis Stop: 07/08/19 22:35 Lactulose (Cephulac (Oral Use)) 20 gm PO QID [facility] Last Admin: 07/09/19 13:31 Dose: Not Given Melatonin (Melatonin) 3 mg PO HS [facility] Last Admin: 07/08/19 23:58 Dose: 3 mg Oxycodone HCl (Roxicodone -) 5 mg PO Q6HPO PRN PRN Reason: PAIN LEVEL 6-10 Last Admin: 07/08/19 22:02 Dose: 5 mg Spironolactone (Aldactone -) 50 mg PO DAILY [facility] Last Admin: 07/09/19 09:22 Dose: 50 mg Tamsulosin HCl (Flomax -) 0.4 mg PO DAILY@0830 [facility] Last Admin: 07/09/19 08:00 Dose: 0.4 mg Thiamine HCl (Vitamin B1 -) 100 mg PO DAILY DEV Last Admin: 07/09/19 09:22 Dose: 100 mg - Objective Vital Signs: Vital Signs Temperature 97.9 F 07/09/19 09:00 Pulse Rate 73 07/09/19 09:00 Respiratory Rate 18 07/09/19 09:00 Blood Pressure 141/76 07/09/19 09:00 O2 Sat by Pulse Oximetry (%) 100 07/09/19 09:00 Constitutional: Yes: Calm Eyes: Yes: Conjunctiva Clear HENT: Yes: Atraumatic Cardiovascular: Yes: S1, S2 Respiratory: Yes: CTA Bilaterally Gastrointestinal: Yes: Soft Genitourinary: Yes: WNL Musculoskeletal: Yes: WNL Edema: No Neurological: Yes: Oriented Psychiatric: Yes: Oriented Labs: CBC, BMP 07/09/19 06:40 07/08/19 06:30 INR, PTT INR 1.32 (0.83-1.09) H 07/06/19 12:20 Problem List - Problems (1) ESRD (end stage renal disease) on dialysis Code(s): N18.6 - END STAGE RENAL DISEASE; Z99.2 - DEPENDENCE ON RENAL DIALYSIS (2) Epistaxis Code(s): R04.0 - EPISTAXIS (3) S/P TIPS (transjugular intrahepatic portosystemic shunt) Code(s): Z95.828 - PRESENCE OF OTHER VASCULAR IMPLANTS AND GRAFTS Assessment/Plan Current Medications Generic Name Dose Route Start Last Admin Trade Name Freq PRN Reason Stop Dose Admin Acetaminophen 650 mg 07/05/19 20:43 07/08/19 21:59 Tylenol - PO 650 mg Q6H PRN Administration PAIN OR FEVER Acetaminophen 325 mg 07/08/19 21:00 Tylenol - PO Q6HPO PRN PAIN LEVEL 6-10 Amlodipine Besylate 10 mg 07/06/19 10:00 07/09/19 09:22 Norvasc - PO 10 mg DAILY DEV Administration Bismuth Subsalicylate 524 mg 07/06/19 19:38 07/07/19 00:50 Pepto-Bismol - PO 524 mg DAILY PRN Administration DIARRHEA Clonidine 0.1 mg 07/05/19 22:00 07/09/19 09:22 Catapres - PO 0.1 mg BID DEV Administration Ferrous Sulfate 325 mg 07/06/19 10:00 07/09/19 09:22 Feosol - PO 325 mg DAILY DEV Administration Folic Acid 1 mg 07/06/19 10:00 07/09/19 09:22 Folic Acid - PO 1 mg DAILY DEV Administration Furosemide 40 mg 07/06/19 06:00 07/09/19 13:31 Lasix - PO 40 mg BID@0600,1400 DEV Administration Sodium Chloride 250 mls @ 3,000 mls/hr 07/07/19 22:35 Normal Saline - IV 07/08/19 22:35 PRN PRN Hypotension during Dialysis Lactulose 20 gm 07/05/19 18:00 07/09/19 13:31 Cephulac (Oral Use) PO Not Given QID DEV Melatonin 3 mg 07/08/19 23:41 07/08/19 23:58 Melatonin PO 3 mg HS DEV Administration Oxycodone HCl 5 mg 07/08/19 21:00 07/08/19 22:02 Roxicodone - PO 5 mg Q6HPO PRN Administration PAIN LEVEL 6-10 Spironolactone 50 mg 07/06/19 10:00 07/09/19 09:22 Aldactone - PO 50 mg DAILY DEV Administration Tamsulosin HCl 0.4 mg 07/06/19 08:30 07/09/19 08:00 Flomax - PO 0.4 mg DAILY@0830 DEV Administration Thiamine HCl 100 mg 07/06/19 10:00 07/09/19 09:22 Vitamin B1 - PO 100 mg DAILY DEV Administration Impression 1. ESRD 2. epistaxis 3. hx etoh abuse 4. liver cirrhosis with tips 5. anemia Plan - HD tomorrow - he can return to his HD schedule after discharge - monitor bp - 4 :15 180 abf 400 3 k bath
[2019-07-09] MEDS: ACETAMINOPHEN 325 MG TABLET (FP) PO PRN (14:51)
[2019-07-09] MEDS: oxyCODONE HCL 5 MG TABLET PO PRN ×2 (14:51→21:39)
[2019-07-09] MEDS: levETIRAcetam 500 MG TABLET (FP) PO SCH ×2 (15:09→21:39)
--- NOTE | 2019-07-09 16:56 | DS ---
Physical Examination Vital Signs: Vital Signs Temperature 97.4 F L 07/09/19 15:40 Pulse Rate 64 07/09/19 15:40 Respiratory Rate 18 07/09/19 15:40 Blood Pressure 104/54 L 07/09/19 15:40 O2 Sat by Pulse Oximetry (%) 100 07/09/19 09:00 Constitutional: Yes: No Distress, Calm Eyes: Yes: Conjunctiva Clear HENT: Yes: Atraumatic Cardiovascular: Yes: Regular Rate and Rhythm Respiratory: Yes: Regular, CTA Bilaterally Gastrointestinal: Yes: Normal Bowel Sounds, Soft Musculoskeletal: Yes: WNL Extremities: Yes: WNL Edema: No Neurological: Yes: Alert, Oriented Psychiatric: Yes: Alert, Oriented Labs: CBC, BMP 07/09/19 06:40 07/08/19 06:30 Discharge Summary Reason For Visit: EPISTAXIS; END STAGE RENAL FAILURE ON DIALYSIS Current Active Problems ESRD (end stage renal disease) on dialysis (Acute) ESRD on dialysis (Acute) Epistaxis (Acute) Headache (Acute) Pain from arteriovenous fistula (Acute) S/P TIPS (transjugular intrahepatic portosystemic shunt) (Acute) Thrombocytopenia (Acute) Hospital Course: Patient is a 48 y/o male with past medical history of HTN, HLD, NIDDM, ESRD on HD, cirrhosis 2/2 ETOH abuse (s/p TIPS), Patient presented to ER with epistaxis. Denies trauma or injury to cause epistaxis. He says he felt his nose was stuffed and when he blew his nose that is when the bleeding started. Nasal packing applied and removed on 07/09/19. No further bleeding episodes noted. Laboratory Tests 07/05/19 07/05/19 07/05/19 10:25 10:25 11:00 WBC 6.0 RBC 3.30 L Hgb 10.2 L Hct 28.1 L MCV 85.3 MCH 30.9 MCHC 36.3 H RDW 14.9 Plt Count 144 D MPV 8.6 D Absolute Neuts (auto) Neutrophils % Lymphocytes % Monocytes % Eosinophils % Basophils % Nucleated RBC % Platelet Estimate PT with INR 13.30 H INR 1.13 H PTT (Actin FS) Sodium 131 L Potassium 3.8 Chloride 96 L Carbon Dioxide 22 Anion Gap 14 BUN 18.8 H Creatinine 4.4 H Est GFR (CKD-EPI)AfAm 17.37 Est GFR (CKD-EPI)NonAf 14.98 Random Glucose 131 H Calcium 7.7 L Phosphorus Magnesium Total Bilirubin 1.1 H AST 17 ALT 11 L Alkaline Phosphatase 108 Ammonia Total Protein 6.4 Albumin 2.6 L Hep Bs Antigen Hep C Ab Diagnostic Blood Type Antibody Screen Crossmatch 07/05/19 07/05/19 07/06/19 11:00 17:00 11:30 WBC 4.7 RBC 2.65 L Hgb 8.2 L Hct 22.9 L D MCV 86.4 MCH 30.8 MCHC 35.7 RDW 14.7 Plt Count 89 L D MPV 9.0 Absolute Neuts (auto) 3.3 Neutrophils % 69.7 D Lymphocytes % 14.6 Monocytes % 13.4 H D Eosinophils % 1.9 D Basophils % 0.4 Nucleated RBC % 0 Platelet Estimate Decreased PT with INR INR PTT (Actin FS) Sodium 130 L Potassium 3.8 Chloride 96 L Carbon Dioxide 20 L Anion Gap 14 BUN 59.3 H Creatinine 5.6 H Est GFR (CKD-EPI)AfAm 12.97 Est GFR (CKD-EPI)NonAf 11.19 Random Glucose 111 H Calcium 7.4 L Phosphorus 4.6 Magnesium 1.7 L Total Bilirubin 0.7 AST 16 ALT 11 L Alkaline Phosphatase 90 Ammonia Total Protein 5.7 L Albumin 2.4 L Hep Bs Antigen Hep C Ab Diagnostic Blood Type B POSITIVE Antibody Screen Negative Crossmatch See Detail 07/06/19 07/06/19 07/06/19 11:30 11:30 11:30 WBC 4.7 RBC 2.03 L Hgb 6.4 L* Hct 17.4 L D MCV 85.5 MCH 31.3 MCHC 36.6 H RDW 14.9 Plt Count 66 L D MPV 9.3 Absolute Neuts (auto) Neutrophils % Lymphocytes % Monocytes % Eosinophils % Basophils % Nucleated RBC % Platelet Estimate PT with INR INR PTT (Actin FS) Sodium Potassium Chloride Carbon Dioxide Anion Gap BUN Creatinine Est GFR (CKD-EPI)AfAm Est GFR (CKD-EPI)NonAf Random Glucose Calcium Phosphorus Magnesium Total Bilirubin AST ALT Alkaline Phosphatase Ammonia Total Protein Albumin Hep Bs Antigen Negative Hep C Ab Diagnostic <0.1 Blood Type Antibody Screen Crossmatch 07/06/19 07/06/19 07/07/19 12:20 12:20 07:12 WBC 2.3 L RBC 2.35 L Hgb 7.2 L Hct 20.4 L D MCV 86.9 MCH 30.7 MCHC 35.3 RDW 14.9 Plt Count 53 L MPV 9.1 Absolute Neuts (auto) Neutrophils % Lymphocytes % Monocytes % Eosinophils % Basophils % Nucleated RBC % Platelet Estimate PT with INR 15.60 H INR 1.32 H PTT (Actin FS) 31.2 Sodium Potassium Chloride Carbon Dioxide Anion Gap BUN Creatinine Est GFR (CKD-EPI)AfAm Est GFR (CKD-EPI)NonAf Random Glucose Calcium Phosphorus Magnesium Total Bilirubin AST ALT Alkaline Phosphatase Ammonia 18.50 Total Protein Albumin Hep Bs Antigen Hep C Ab Diagnostic Blood Type Antibody Screen Crossmatch 07/07/19 07/08/19 07/08/19 07:12 06:30 06:30 WBC 4.6 RBC 2.57 L Hgb 7.9 L Hct 22.9 L MCV 89.0 MCH 30.8 MCHC 34.6 RDW 15.6 Plt Count 77 L D MPV 9.5 Absolute Neuts (auto) Neutrophils % Lymphocytes % Monocytes % Eosinophils % Basophils % Nucleated RBC % Platelet Estimate PT with INR INR PTT (Actin FS) Sodium 137 135 L Potassium 3.5 3.3 L Chloride 99 97 L Carbon Dioxide 31 31 Anion Gap 8 8 BUN 31.3 H 45.2 H Creatinine 4.0 H 5.4 H Est GFR (CKD-EPI)AfAm 19.49 13.56 Est GFR (CKD-EPI)NonAf 16.81 11.70 Random Glucose 80 87 Calcium 7.7 L 7.8 L Phosphorus Magnesium Total Bilirubin 1.1 H 0.4 AST 15 15 ALT 10 L 11 L Alkaline Phosphatase 102 148 H Ammonia Total Protein 5.5 L 6.1 L Albumin 2.4 L 2.7 L Hep Bs Antigen Hep C Ab Diagnostic Blood Type Antibody Screen Crossmatch 07/08/19 07/09/19 06:30 06:40 WBC 2.6 L RBC 2.42 L Hgb 7.5 L Hct 21.4 L MCV 88.3 MCH 30.9 MCHC 35.0 RDW 14.8 Plt Count 54 L D MPV 9.1 Absolute Neuts (auto) Neutrophils % Lymphocytes % Monocytes % Eosinophils % Basophils % Nucleated RBC % Platelet Estimate PT with INR INR PTT (Actin FS) Sodium Potassium Chloride Carbon Dioxide Anion Gap BUN Creatinine Est GFR (CKD-EPI)AfAm Est GFR (CKD-EPI)NonAf Random Glucose Calcium Phosphorus Magnesium Total Bilirubin AST ALT Alkaline Phosphatase Ammonia Total Protein Albumin Hep Bs Antigen Hep C Ab Diagnostic Blood Type B POSITIVE Antibody Screen Negative Crossmatch See Detail Active Medications Generic Name Dose Route Start Last Admin Trade Name Freq PRN Reason Stop Dose Admin Acetaminophen 650 mg 07/05/19 20:43 07/09/19 14:51 Tylenol - PO 650 mg Q6H PRN Administration PAIN OR FEVER Acetaminophen 325 mg 07/08/19 21:00 Tylenol - PO Q6HPO PRN PAIN LEVEL 6-10 Amlodipine Besylate 10 mg 07/06/19 10:00 07/09/19 09:22 Norvasc - PO 10 mg DAILY DEV Administration Bismuth Subsalicylate 524 mg 07/06/19 19:38 07/07/19 00:50 Pepto-Bismol - PO 524 mg DAILY PRN Administration DIARRHEA Clonidine 0.1 mg 07/05/19 22:00 07/09/19 09:22 Catapres - PO 0.1 mg BID DEV Administration Epoetin Kendall 10,000 unit 07/10/19 14:15 Epogen - IVPUSH 07/10/19 14:16 ONCE ONE Ferrous Sulfate 325 mg 07/06/19 10:00 07/09/19 09:22 Feosol - PO 325 mg DAILY DEV Administration Folic Acid 1 mg 07/06/19 10:00 07/09/19 09:22 Folic Acid - PO 1 mg DAILY DEV Administration Furosemide 40 mg 07/06/19 06:00 07/09/19 13:31 Lasix - PO 40 mg BID@0600,1400 DEV Administration Sodium Chloride 250 mls @ 3,000 mls/hr 07/07/19 22:35 Normal Saline - IV 07/08/19 22:35 PRN PRN Hypotension during Dialysis Sodium Chloride 250 mls @ 3,000 mls/hr 07/09/19 14:15 Normal Saline - IV 07/10/19 14:15 PRN PRN Hypotension during Dialysis Lactulose 20 gm 07/05/19 18:00 07/09/19 13:31 Cephulac (Oral Use) PO Not Given QID DEV Levetiracetam 500 mg 07/09/19 15:15 07/09/19 15:09 Keppra - PO 500 mg BID DEV Administration Melatonin 3 mg 07/08/19 23:41 07/08/19 23:58 Melatonin PO 3 mg HS DEV Administration Oxycodone HCl 5 mg 07/08/19 21:00 07/09/19 14:51 Roxicodone - PO 5 mg Q6HPO PRN Administration PAIN LEVEL 6-10 Spironolactone 50 mg 07/06/19 10:00 07/09/19 09:22 Aldactone - PO 50 mg DAILY DEV Administration Tamsulosin HCl 0.4 mg 07/06/19 08:30 07/09/19 08:00 Flomax - PO 0.4 mg DAILY@0830 DEV Administration Thiamine HCl 100 mg 07/06/19 10:00 07/09/19 09:22 Vitamin B1 - PO 100 mg DAILY DEV Administration Condition: Stable - Instructions Diet, Activity, Other Instructions: follow up with PMD in 1 week continue with dialysis as scheduled continue with medication as prescribed return to ER if develop severe pain, chest pain respiratory distress Referrals: Narayan Amaya MD [Staff Physician] - Disposition: HOME - Home Medications Comprehensive Discharge Medication List: Ambulatory Orders Folic Acid - 1 mg PO DAILY #30 tablet 09/27/17 Multivitamin [One Daily] 1 each PO DAILY #30 tablet 09/27/17 Thiamine HCl [Vitamin B1 -] 100 mg PO DAILY #30 tablet 09/27/17 Ferrous Sulfate 325 mg PO DAILY 04/30/18 Amlodipine Besylate [Norvasc -] 10 mg PO DAILY #30 tab 05/08/18 Furosemide [Lasix -] 40 mg PO BID@0600,1400 #60 tablet 05/08/18 Lactulose (Oral Use) [Cephulac -] 20 gm PO BID #1800 ml 05/08/18 Tamsulosin HCl [Flomax -] 0.4 mg PO DAILY@0830 #30 cap.er.24h 05/08/18 Triamcinolone 0.5% Ointment [Aristocort 0.5% Ointment -] 1 applic TP BID #45 g 05/08/18 cloNIDine HCL [Catapres -] 0.1 mg PO BID #60 tablet 05/08/18 hydrOXYzine HCL [Atarax -] 50 mg PO Q6H PRN #360 tablet 05/08/18 Acetaminophen [Tylenol .Regular Strength -] 650 mg PO Q6H PRN tablet 07/08/18 Amlodipine Besylate [Norvasc -] 10 mg PO DAILY #0 tablet 07/08/18 Thiamine HCl [Vitamin B1 -] 100 mg PO DAILY #30 tablet 07/08/18 cloNIDine HCL [Catapres -] 0.1 mg PO BID tablet 07/08/18 oxyCODONE HCL [Roxicodone -] 5 mg PO Q6H PRN #20 tablet MDD 4 07/08/18 traMADol HCL [Ultram -] 50 mg PO Q6H PRN #20 tablet MDD 4 07/08/18 Spironolactone [Aldactone -] 50 mg PO DAILY #30 tablet 07/10/18 Triamcinolone 0.5% Ointment [Aristocort 0.5% Ointment -] 0 gm TP BID #45 gm levETIRAcetam [Keppra -] 500 mg PO BID 07/09/19
[2019-07-09] MEDS ORDERED: diphenhydrAMINE HCL 25 MG CAPSULE (FP) PO PRN (16:58)
--- NOTE | 2019-07-09 20:07 | PN ---
Progress Note (short form) - Note Progress Note: Patient seen Not happy about being examined Packing out No further epistaxis reported Would transfuse if further fal in Hb.
[2019-07-09] MEDS ORDERED: PT OWN MED DRAWER 7, Y5N ONE (20:21)
[2019-07-09] MEDS: MELATONIN 1 MG TABLET PO SCH (21:39)
[2019-07-09] MEDS ORDERED: MELATONIN 1 MG TABLET PO SCH (22:00)
[2019-07-10] MEDS: FUROSEMIDE 40 MG TABLET (FP) PO SCH ×2 (06:51→13:15)
[2019-07-10 07:21] LABS: EOS % 6.5 % (0-4.5); HEMATOCRIT 22.2 % (35.4-49); HEMOGLOBIN 7.7 GM/dL (11.7-16.9); LYMPH % 17.6 % (8-40); MCH 30.8 pg (25.7-33.7); MCHC 34.6 g/dl (32.0-35.9); MEAN CELL VOLUME 89.1 fl (80-96); MEAN PLT VOLUME 9.3 fl (7.5-11.1); MONO % 7.5 % (3.8-10.2); NEUT % 67.4 % (42.8-82.8); PLATELET COUNT 51 K/MM3 (134-434); RBC 2.49 M/mm3 (4.00-5.60); RDW 14.8 % (11.9-15.9)
[2019-07-10 07:58] LABS: ALBUMIN 2.4 g/dl (3.4-5.0); BILIRUBIN,TOTAL 0.5 mg/dL (0.2-1); BLOOD UREA NITROGEN 38.3 mg/dL (7-18); CALCIUM 7.7 mg/dL (8.5-10.1); CREATININE 5.1 mg/dL (0.55-1.3); TOT PROT 5.6 g/dl (6.4-8.2)
[2019-07-10] MEDS ORDERED: EPOETIN ALFA 10,000 UNIT/1 ML VIAL IVPUSH ONE (08:00)
--- NOTE | 2019-07-10 10:46 | PN ---
Progress Note, Physician History of Present Illness: Pt seen and examined at bedside. He is tolerating HD. He denies shortness of breath. - Current Medication List Current Medications: Active Medications Acetaminophen (Tylenol -) 650 mg PO Q6H PRN PRN Reason: PAIN OR FEVER Last Admin: 07/09/19 14:51 Dose: 650 mg Acetaminophen (Tylenol -) 325 mg PO Q6HPO PRN PRN Reason: PAIN LEVEL 6-10 Last Admin: 07/09/19 21:40 Dose: 325 mg Amlodipine Besylate (Norvasc -) 10 mg PO DAILY [facility] Last Admin: 07/09/19 09:22 Dose: 10 mg Bismuth Subsalicylate (Pepto-Bismol -) 524 mg PO DAILY PRN PRN Reason: DIARRHEA Last Admin: 07/07/19 00:50 Dose: 524 mg Clonidine (Catapres -) 0.1 mg PO BID [facility] Last Admin: 07/09/19 21:39 Dose: 0.1 mg Diphenhydramine HCl (Benadryl -) 25 mg PO HS PRN PRN Reason: INSOMNIA Last Admin: 07/09/19 21:39 Dose: 25 mg Ferrous Sulfate (Feosol -) 325 mg PO DAILY [facility] Last Admin: 07/09/19 09:22 Dose: 325 mg Folic Acid (Folic Acid -) 1 mg PO DAILY [facility] Last Admin: 07/09/19 09:22 Dose: 1 mg Furosemide (Lasix -) 40 mg PO BID@0600,1400 [facility] Last Admin: 07/10/19 06:51 Dose: 40 mg Sodium Chloride (Normal Saline -) 250 mls @ 3,000 mls/hr IV PRN PRN PRN Reason: Hypotension during Dialysis Stop: 07/10/19 14:15 Lactulose (Cephulac (Oral Use)) 20 gm PO QID [facility] Last Admin: 07/09/19 21:46 Dose: Not Given Levetiracetam (Keppra -) 500 mg PO BID [facility] Last Admin: 07/09/19 21:39 Dose: 500 mg Melatonin (Melatonin) 3 mg PO HS [facility] Last Admin: 07/09/19 21:39 Dose: 3 mg Oxycodone HCl (Roxicodone -) 5 mg PO Q6HPO PRN PRN Reason: PAIN LEVEL 6-10 Last Admin: 07/09/19 21:39 Dose: 5 mg Spironolactone (Aldactone -) 50 mg PO DAILY [facility] Last Admin: 07/09/19 09:22 Dose: 50 mg Tamsulosin HCl (Flomax -) 0.4 mg PO DAILY@0830 [facility] Last Admin: 07/09/19 08:00 Dose: 0.4 mg Thiamine HCl (Vitamin B1 -) 100 mg PO DAILY [facility] Last Admin: 07/09/19 09:22 Dose: 100 mg - Objective Vital Signs: Vital Signs Temperature 98.5 F 07/10/19 07:55 Pulse Rate 58 L 07/10/19 10:00 Respiratory Rate 18 07/10/19 10:00 Blood Pressure 141/75 07/10/19 10:00 O2 Sat by Pulse Oximetry (%) 100 07/09/19 21:00 Constitutional: Yes: Calm Eyes: Yes: Conjunctiva Clear HENT: Yes: Atraumatic Neck: Yes: Supple Cardiovascular: Yes: S1, S2 Respiratory: Yes: CTA Bilaterally Gastrointestinal: Yes: Soft Genitourinary: Yes: WNL Musculoskeletal: Yes: WNL Edema: No Neurological: Yes: Oriented Psychiatric: Yes: Oriented Labs: CBC, BMP 07/10/19 06:21 07/10/19 06:21 INR, PTT INR 1.32 (0.83-1.09) H 07/06/19 12:20 Problem List - Problems (1) ESRD (end stage renal disease) on dialysis Code(s): N18.6 - END STAGE RENAL DISEASE; Z99.2 - DEPENDENCE ON RENAL DIALYSIS (2) Epistaxis Code(s): R04.0 - EPISTAXIS (3) S/P TIPS (transjugular intrahepatic portosystemic shunt) Code(s): Z95.828 - PRESENCE OF OTHER VASCULAR IMPLANTS AND GRAFTS Assessment/Plan Current Medications Generic Name Dose Route Start Last Admin Trade Name Freq PRN Reason Stop Dose Admin Acetaminophen 650 mg 07/05/19 20:43 07/09/19 14:51 Tylenol - PO 650 mg Q6H PRN Administration PAIN OR FEVER Acetaminophen 325 mg 07/08/19 21:00 07/09/19 21:40 Tylenol - PO 325 mg Q6HPO PRN Administration PAIN LEVEL 6-10 Amlodipine Besylate 10 mg 07/06/19 10:00 07/09/19 09:22 Norvasc - PO 10 mg DAILY DEV Administration Bismuth Subsalicylate 524 mg 07/06/19 19:38 07/07/19 00:50 Pepto-Bismol - PO 524 mg DAILY PRN Administration DIARRHEA Clonidine 0.1 mg 07/05/19 22:00 07/09/19 21:39 Catapres - PO 0.1 mg BID DEV Administration Diphenhydramine HCl 25 mg 07/09/19 16:58 07/09/19 21:39 Benadryl - PO 25 mg HS PRN Administration INSOMNIA Ferrous Sulfate 325 mg 07/06/19 10:00 07/09/19 09:22 Feosol - PO 325 mg DAILY DEV Administration Folic Acid 1 mg 07/06/19 10:00 07/09/19 09:22 Folic Acid - PO 1 mg DAILY DEV Administration Furosemide 40 mg 07/06/19 06:00 07/10/19 06:51 Lasix - PO 40 mg BID@0600,1400 DEV Administration Sodium Chloride 250 mls @ 3,000 mls/hr 07/09/19 14:15 Normal Saline - IV 07/10/19 14:15 PRN PRN Hypotension during Dialysis Lactulose 20 gm 07/05/19 18:00 07/09/19 21:46 Cephulac (Oral Use) PO Not Given QID DEV Levetiracetam 500 mg 07/09/19 15:15 07/09/19 21:39 Keppra - PO 500 mg BID DEV Administration Melatonin 3 mg 07/08/19 23:41 07/09/19 21:39 Melatonin PO 3 mg HS DEV Administration Oxycodone HCl 5 mg 07/08/19 21:00 07/09/19 21:39 Roxicodone - PO 5 mg Q6HPO PRN Administration PAIN LEVEL 6-10 Spironolactone 50 mg 07/06/19 10:00 07/09/19 09:22 Aldactone - PO 50 mg DAILY DEV Administration Tamsulosin HCl 0.4 mg 07/06/19 08:30 07/09/19 08:00 Flomax - PO 0.4 mg DAILY@0830 DEV Administration Thiamine HCl 100 mg 07/06/19 10:00 07/09/19 09:22 Vitamin B1 - PO 100 mg DAILY DEV Administration Impression 1. ESRD 2. epistaxis 3. hx etoh abuse 4. liver cirrhosis with tips 5. anemia Plan - pt tolerating HD - he has HD set up as outpt - has no more bleeding - held heparin in HD - monitor bp - 4 :15 180 abf 400 3 k bath
[2019-07-10 12:35] VITALS: BP 135/76; PULSE 71; TEMP 97.8
[2019-07-10] MEDS: LACTULOSE 20 GM/30 ML UDC (FOR ORAL USE ONLY) PO SCH ×2 (12:51→13:12)
[2019-07-10] MEDS: cloNIDine HCL 0.1 MG TABLET PO SCH (13:10)
[2019-07-10] MEDS: FERROUS SO4 325 MG TABLET (FP) PO SCH (13:10)
[2019-07-10] MEDS: levETIRAcetam 500 MG TABLET (FP) PO SCH (13:11)
[2019-07-10] MEDS: amLODIPine BESYLATE 10 MG TABLET (FP) PO SCH (13:11)
[2019-07-10] MEDS: SPIRONOLACTONE 25 MG TABLET (FP) PO SCH (13:11)
[2019-07-10] MEDS: TAMSULOSIN HCL 0.4 MG CAP PO SCH (13:11)
[2019-07-10] MEDS: FOLIC ACID 1 MG TABLET (FP) PO SCH (13:11)
[2019-07-10] MEDS: THIAMINE HCL 100 MG TABLET (FP) PO SCH (13:11)
--- NOTE | 2019-07-10 13:32 | PN ---
Progress Note, Physician Chief Complaint: Epistaxis ESRD on HD History of Present Illness: Previous notes and events reviewed awake and alert NAD nasal packing removed and no further episodes of epistaxis patient examined after dialysis being discharged home today - Current Medication List Current Medications: Active Medications Acetaminophen (Tylenol -) 650 mg PO Q6H PRN PRN Reason: PAIN OR FEVER Last Admin: 07/09/19 14:51 Dose: 650 mg Acetaminophen (Tylenol -) 325 mg PO Q6HPO PRN PRN Reason: PAIN LEVEL 6-10 Last Admin: 07/09/19 21:40 Dose: 325 mg Amlodipine Besylate (Norvasc -) 10 mg PO DAILY [facility] Last Admin: 07/10/19 13:11 Dose: 10 mg Bismuth Subsalicylate (Pepto-Bismol -) 524 mg PO DAILY PRN PRN Reason: DIARRHEA Last Admin: 07/07/19 00:50 Dose: 524 mg Clonidine (Catapres -) 0.1 mg PO BID [facility] Last Admin: 07/10/19 13:10 Dose: 0.1 mg Diphenhydramine HCl (Benadryl -) 25 mg PO HS PRN PRN Reason: INSOMNIA Last Admin: 07/09/19 21:39 Dose: 25 mg Ferrous Sulfate (Feosol -) 325 mg PO DAILY [facility] Last Admin: 07/10/19 13:10 Dose: 325 mg Folic Acid (Folic Acid -) 1 mg PO DAILY [facility] Last Admin: 07/10/19 13:11 Dose: 1 mg Furosemide (Lasix -) 40 mg PO BID@0600,1400 [facility] Last Admin: 07/10/19 13:15 Dose: 40 mg Sodium Chloride (Normal Saline -) 250 mls @ 3,000 mls/hr IV PRN PRN PRN Reason: Hypotension during Dialysis Stop: 07/10/19 14:15 Lactulose (Cephulac (Oral Use)) 20 gm PO QID [facility] Last Admin: 07/10/19 13:12 Dose: 20 gm Levetiracetam (Keppra -) 500 mg PO BID [facility] Last Admin: 07/10/19 13:11 Dose: 500 mg Melatonin (Melatonin) 3 mg PO HS [facility] Last Admin: 07/09/19 21:39 Dose: 3 mg Oxycodone HCl (Roxicodone -) 5 mg PO Q6HPO PRN PRN Reason: PAIN LEVEL 6-10 Last Admin: 07/09/19 21:39 Dose: 5 mg Spironolactone (Aldactone -) 50 mg PO DAILY [facility] Last Admin: 07/10/19 13:11 Dose: 50 mg Tamsulosin HCl (Flomax -) 0.4 mg PO DAILY@0830 [facility] Last Admin: 07/10/19 13:11 Dose: 0.4 mg Thiamine HCl (Vitamin B1 -) 100 mg PO DAILY [facility] Last Admin: 07/10/19 13:11 Dose: 100 mg - Objective Vital Signs: Vital Signs Temperature 97.8 F 07/10/19 12:34 Pulse Rate 71 07/10/19 12:34 Respiratory Rate 18 07/10/19 12:34 Blood Pressure 135/76 07/10/19 12:34 O2 Sat by Pulse Oximetry (%) 100 07/10/19 09:00 Constitutional: Yes: No Distress, Calm Eyes: Yes: Conjunctiva Clear HENT: Yes: Atraumatic Cardiovascular: Yes: Regular Rate and Rhythm Respiratory: Yes: Regular, CTA Bilaterally Gastrointestinal: Yes: Soft Musculoskeletal: Yes: WNL Extremities: Yes: WNL, Other (RUE fistula) Edema: No Neurological: Yes: Alert, Oriented Psychiatric: Yes: Alert, Oriented Labs: CBC, BMP 07/10/19 06:21 07/10/19 06:21 INR, PTT INR 1.32 (0.83-1.09) H 07/06/19 12:20 Problem List - Problems (1) ESRD on dialysis Code(s): N18.6 - END STAGE RENAL DISEASE; Z99.2 - DEPENDENCE ON RENAL DIALYSIS (2) Epistaxis Code(s): R04.0 - EPISTAXIS (3) Essential hypertension Code(s): I10 - ESSENTIAL (PRIMARY) HYPERTENSION (4) Thrombocytopenia Code(s): D69.6 - THROMBOCYTOPENIA, UNSPECIFIED (5) Anemia Code(s): D64.9 - ANEMIA, UNSPECIFIED (6) Pain from arteriovenous fistula Code(s): T82.848A - PAIN DUE TO VASCULAR PROSTH DEV/GRFT, INITIAL ENCOUNTER (7) Headache Code(s): R51 - HEADACHE Assessment/Plan see problem list patient being discharged home today
== END 2019-07-10 14:13 | disposition home or self-care (01) | DRG 813 ==
LOC: JER 09:32 → SUPCPDRO 09:32 → JERBED 12:22 → J7W 15:09
PROVIDERS: ADMIT Family Medicine; ATTEND Family Medicine
PROC: 2Y41X5Z Packing of Nasal Region using Packing Material (ICD-10-PCS; principal; 2019-07-05)
PROC: 30233N1 Transfusion of Nonautologous Red Blood Cells into Peripheral Vein, Percutaneous Approach (ICD-10-PCS; 2019-07-06)
PROC: 5A1D70Z Performance of Urinary Filtration, Intermittent, Less than 6 Hours Per Day (ICD-10-PCS; 2019-07-10)
DX: D68.4 Acquired coagulation factor deficiency (principal); N18.6 End stage renal disease; I12.0 Hypertensive chronic kidney disease with stage 5 chronic kidney disease or end stage renal disease; D69.6 Thrombocytopenia, unspecified; R04.0 Epistaxis; K70.30 Alcoholic cirrhosis of liver without ascites; E11.22 Type 2 diabetes mellitus with diabetic chronic kidney disease; D64.9 Anemia, unspecified; Z99.2 Dependence on renal dialysis; R51 Headache; E78.5 Hyperlipidemia, unspecified
CPT/HCPCS: 36415; 36430; 36511; 70450-TC; 80053; 82140; 83735; 84100; 85025; 85027; 85610; 85730; 86803; 86850; 86900; 86901; 86922; 87340; 99283-25; J0735; J0885; P9038; P9058

== ENCOUNTER 2019-09-09 16:18 | Inpatient (IN) | payer OTHER ==
--- NOTE | 2019-09-09 16:31 | PDOC ---
Rapid Medical Evaluation Time Seen by Provider: 09/09/19 16:25 Medical Evaluation: Allergies Allergy/AdvReac Type Severity Reaction Status Date / Time shellfish derived Allergy Severe Swelling Verified 07/05/18 05:10 Fish Containing Products Allergy Intermediate Itching Verified 07/07/18 21:17 09/09/19 16:25 I have performed a brief in-person evaluation of this patient. The patient presents with a chief complaint of: Here for blood work. Pt on HD TThSat, missed 5 HD visits because he had a viral syndrome. He felt better today and wanted to get his dialysis but they would not take him unless he had blood work done. He needs his hemoglobin, K, and hepatitis panel checked. C/o fluid overload w/ mild SOB with exertion Pertinent physical exam findings: Lungs without crackles/rales, no LE edema I have ordered the following: ekg, CBC, CMP, CXR, hep panel The patient will proceed to the ED for further evaluation. 09/09/19 17:09 Discharge Disposition - Diagnosis Missed dialysis - Referrals - Patient Instructions - Post Discharge Activity
[2019-09-09 17:55] LABS: BASO % 0.6 % (0-2.0); EOS % 2.2 % (0-4.5); HEMATOCRIT 15.6 % (35.4-49); LYMPH % 11.6 % (8-40); MCH 32.6 pg (25.7-33.7); MCHC 34.6 g/dl (32.0-35.9); MEAN CELL VOLUME 94.4 fl (80-96); MEAN PLT VOLUME 7.5 fl (7.5-11.1); MONO % 7.7 % (3.8-10.2); NEUT % 77.9 % (42.8-82.8); PLATELET COUNT 99 K/MM3 (134-434); RBC 1.66 M/mm3 (4.00-5.60); RDW 18.2 % (11.9-15.9); WHITE BLOOD COUNT 5.6 K/mm3 (4.0-10.0)
[2019-09-09 18:00] LABS: HEMOGLOBIN 5.4 GM/dL (11.7-16.9)
--- NOTE | 2019-09-09 18:14 | PDOC ---
History of Present Illness - General Chief Complaint: Abnormal Lab Results (Outside) Stated Complaint: BLOOD WORK Time Seen by Provider: 09/09/19 16:25 - History of Present Illness Initial Comments: 09/09/19 19:28 49 year old man with PMH of HTN, HLD, NIDDM, CKD (on HD T/R/Sat), cirrhosis 2/2 chronic alcohol abuse (s/p TIPS), and depression, prior GI bleed requiring tranfusion who presents from dialysis for labwork after the patient missed 5 dialysis sessions because he had a common cold. He went to dialysis today because he started feeling better. They advised him that he would need bloodwork before he got dialyzed. He also reports that he has has had 1 week of shortness of breath when walking 2 blocks, 3 days of RUQ abdominal pain that has now resolved, and blood in his stool for 3 days. He denies any other symptoms. Allergies: penicillin, shellfish, NKDA PCP: Ed Renal: Wil ([facility]) ARIC GENERAL/CONSTITUTIONAL: No fever or chills. No weakness. HEAD, EYES, EARS, NOSE AND THROAT: No change in vision. No ear pain or discharge. No sore throat. CARDIOVASCULAR: No chest pain or shortness of breath RESPIRATORY: No cough, wheezing, or hemoptysis. GASTROINTESTINAL: No nausea, vomiting, diarrhea or constipation. GENITOURINARY: No dysuria, frequency, or change in urination. MUSCULOSKELETAL: No joint or muscle swelling or pain. No neck or back pain. SKIN: No rash PE GENERAL: Awake, alert, and fully oriented, in no acute distress HEAD: No signs of trauma, normocephalic, atraumatic EYES: EOMI, slight sclera anicteric, conjunctiva clear ENT: oropharynx clear without exudates. Moist mucosa NECK: Normal ROM, supple LUNGS: No distress, speaks full sentences, + slight coarse breath sounds HEART: Regular rate and rhythm, normal S1 and S2, no murmurs, rubs or gallops, peripheral pulses normal and equal bilaterally. ABDOMEN: Soft, nontender No guarding, no rebound. No masses EXTREMITIES : Normal inspection, Normal range of motion, no edema. No clubbing or cyanosis. NEUROLOGICAL: Cranial nerves II through XII grossly intact. Normal speech, normal gait, no focal sensorimotor deficits SKIN: Warm, Dry, normal turgor, no rashes or lesions noted MDM DDX including but not limited to: LGIB (fissure vs hemorrhoid vs diverticular dz vs Crohns vs UC) vs UGIB (PUD vs gastroesophageal varices vs erosive gastritis/ esophagitis) W/U: - cbc, cmp, type and screen, coags, ekg ED Course: patient consented for 2prbc tranfusion will contact GI and Nephro plan for admission 09/09/19 19:56 ekg: nsr at 76bpm, QTc 495bpm, no ST segment changes or T wave changes call placed to GI pending callback Case discussed with Dr. Gutierrez who recommends protonix drip and octreotide drip pending callback from nephro Case discussed with Dr. Flores who recommends 80 lasix after 1prbc and consider ICU admission Case discussed with admitted Dr. Chowdhury who agrees to admission pending ICU consult Viry Powers, PGY2 Emergency Medicine Past History - Past Medical History Allergies/Adverse Reactions: Allergies Allergy/AdvReac Type Severity Reaction Status Date / Time piperacillin Allergy Severe Swelling Verified 09/11/19 14:07 shellfish derived Allergy Severe Swelling Verified 09/09/19 16:26 Fish Containing Products Allergy Intermediate Itching Verified 09/09/19 16:26 latex Allergy Mild Rash Verified 09/11/19 14:07 Home Medications: Ambulatory Orders Multivitamin [One Daily] 1 each PO DAILY #30 tablet 09/27/17 Ferrous Sulfate 325 mg PO DAILY 04/30/18 Amlodipine Besylate [Norvasc -] 10 mg PO DAILY #30 tab 05/08/18 Furosemide [Lasix -] 40 mg PO BID@0600,1400 #60 tablet 05/08/18 Lactulose (Oral Use) [Cephulac -] 20 gm PO BID #1800 ml 05/08/18 Tamsulosin HCl [Flomax -] 0.4 mg PO DAILY@0830 #30 cap.er.24h 05/08/18 Triamcinolone 0.5% Ointment [Aristocort 0.5% Ointment -] 1 applic TP BID #45 g 05/08/18 cloNIDine HCL [Catapres -] 0.1 mg PO BID #60 tablet 05/08/18 hydrOXYzine HCL [Atarax -] 50 mg PO Q6H PRN #360 tablet 05/08/18 Acetaminophen [Tylenol .Regular Strength -] 650 mg PO Q6H PRN tablet 07/08/18 Thiamine HCl [Vitamin B1 -] 100 mg PO DAILY #30 tablet 07/08/18 cloNIDine HCL [Catapres -] 0.1 mg PO BID tablet 07/08/18 oxyCODONE HCL [Roxicodone -] 5 mg PO Q6H PRN #20 tablet MDD 4 07/08/18 traMADol HCL [Ultram -] 50 mg PO Q6H PRN #20 tablet MDD 4 07/08/18 Spironolactone [Aldactone -] 50 mg PO DAILY #30 tablet 07/10/18 levETIRAcetam [Keppra -] 500 mg PO BID 07/09/19 Folic Acid 1 mg PO DAILY #30 tablet 07/10/19 Anemia: No Asthma: No Cancer: No Cardiac Disorders: Yes CVA: No COPD: No CHF: No Dementia: No Diabetes: Yes GI Disorders: Yes (cirrhosis etoh abuse) Disorders: No HTN: Yes Hypercholesterolemia: No Kidney Stones: No Liver Disease: Yes (CIRRHOSIS OF LIVER) Psychiatric Problems: Yes (DEPRESSION, ANXEITY) Seizures: No Thyroid Disease: No - Surgical History Abdominal Surgery: No Appendectomy: No Cardiac Surgery: No Cholecystectomy: No Lung Surgery: No Neurologic Surgery: No Orthopedic Surgery: Yes (right shoulder due to dislocation 6 years ago) - Reproductive History Testicular Surgery: No - Immunization History Immunization Up to Date: Yes - Psycho Social/Smoking Cessation Hx Smoking Status: No Smoking History: Never smoked Have you smoked in the past 12 months: Yes Number of Cigarettes Smoked Daily: 2 If you are a former smoker, when did you quit?: 2010 Cigars Per Day: 0 Information on smoking cessation initiated: No 'Breaking Loose' booklet given: 02/22/18 Hx Alcohol Use: No Drug/Substance Use Hx: No Substance Use Type: None Hx Substance Use Treatment: No *Physical Exam - Vital Signs Last Vital Signs Temp Pulse Resp BP Pulse Ox 98.2 F 78 17 110/42 L 100 09/09/19 16:27 09/09/19 16:27 09/09/19 16:27 09/09/19 16:27 09/09/19 16:27 ED Treatment Course - LABORATORY CBC & Chemistry Diagram: 09/14/19 07:00 09/14/19 07:00 - ADDITIONAL ORDERS Additional order review: 09/09/19 17:40 RBC 1.66 L MCV 94.4 MCHC 34.6 RDW 18.2 H MPV 7.5 D Neutrophils % 77.9 Lymphocytes % 11.6 D Monocytes % 7.7 Eosinophils % 2.2 Basophils % 0.6 Discharge - Discharge Information Problems reviewed: Yes Clinical Impression/Diagnosis: Missed dialysis, GI (gastrointestinal bleed) Condition: Fair - Admission Yes - Follow up/Referral - Patient Discharge Instructions - Post Discharge Activity
[2019-09-09 18:22] LABS: MAGNESIUM 2.3 mg/dL (1.8-2.4); PHOSPHOROUS 6.6 mg/dL (2.5-4.9)
[2019-09-09 18:26] LABS: ALBUMIN 2.8 g/dl (3.4-5.0); ALBUMIN 2.9 g/dl (3.4-5.0); BILIRUBIN,DIRECT 0.2 mg/dL (0.0-0.2); BILIRUBIN,TOTAL 0.4 mg/dL (0.2-1); BLOOD UREA NITROGEN 70.9 mg/dL (7-18); CALCIUM 7.7 mg/dL (8.5-10.1); CREATININE 5.7 mg/dL (0.55-1.3); POTASSIUM 4.1 mmol/L (3.5-5.1); TOT PROT 5.9 g/dl (6.4-8.2)
--- NOTE | 2019-09-09 19:29 | PDOC ---
Attending Attestation - Resident Resident Name: Viry Powers - ED Attending Attestation I have performed the following: I have examined & evaluated the patient, The case was reviewed & discussed with the resident, I agree w/resident's findings & plan - HPI HPI: 09/09/19 21:29 see resident hpi - Physicial Exam PE: 09/09/19 21:46 agree with resident exam - Medical Decision Making 09/09/19 21:46 49 yo male with vomiting and feeling unwell after missing dialysis labs show a significant anemia with guiac negative stools CXR shows a possible rll infiltrate plan for admission, transfusion with nephrology consultation pt see by GI at bedside CT abd/pelvis planned due to vomiting and LUQ pain admit medical service
[2019-09-09 19:46] LABS: INR 1.01 (0.83-1.09); PROTHROMBIN TIME (PATIENT) 11.9 SEC (9.7-13.0)
[2019-09-09 19:49] LABS: ACTIVATED PTT 28.1 SECONDS (25.2-36.5)
[2019-09-09] MEDS ORDERED: PANTOPRAZOLE SODIUM 40 MG VIAL IVPUSH ONE (20:01)
[2019-09-09] MEDS ORDERED: PANTOPRAZOLE SODIUM 40 MG VIAL ONE (20:54)
--- NOTE | 2019-09-09 20:54 | HP ---
Admitting History and Physical - Primary Care Physician PCP: Cleveland Chowdhury - Admission History of Present Illness: 49 year old man with PMH of HTN, HLD, NIDDM, CKD (on HD T/R/Sat), cirrhosis 2/2 chronic alcohol abuse (s/p TIPS), and depression, prior GI bleed requiring tranfusion who presents from dialysis for labwork after the patient missed 5 dialysis sessions because he had a common cold. He went to dialysis today because he started feeling better. They advised him that he would need bloodwork before he got dialyzed. He also reports that he has has had 1 week of shortness of breath when walking 2 blocks, 3 days of RUQ abdominal pain that has now resolved, and blood in his stool for 3 days. He denies any other symptoms. - Past Medical History Cardiovascular: Yes: HTN, Hyperlipdemia Hepatobiliary: Yes: Cirrhosis Renal/: Yes: Renal Inusuff, Hematuria, Hemodialysis Heme/Onc: Yes: Anemia Endocrine: Yes: Diabetes Mellitus - Smoking History Smoking history: Never smoked Have you smoked in the past 12 months: Yes Aproximately how many cigarettes per day: 2 If you are a former smoker, when did you quit?: 2010 - Alcohol/Substance Use Hx Alcohol Use: No Home Medications - Allergies Allergies/Adverse Reactions: Allergies Allergy/AdvReac Type Severity Reaction Status Date / Time piperacillin Allergy Severe Swelling Verified 09/11/19 14:07 shellfish derived Allergy Severe Swelling Verified 09/09/19 16:26 latex Allergy Mild Rash Verified 09/11/19 14:07 - Home Medications Home Medications: Ambulatory Orders Multivitamin [One Daily] 1 each PO DAILY #30 tablet 09/27/17 Ferrous Sulfate 325 mg PO DAILY 04/30/18 Amlodipine Besylate [Norvasc -] 10 mg PO DAILY #30 tab 05/08/18 Furosemide [Lasix -] 40 mg PO BID@0600,1400 #60 tablet 05/08/18 Lactulose (Oral Use) [Cephulac -] 20 gm PO BID #1800 ml 05/08/18 Tamsulosin HCl [Flomax -] 0.4 mg PO DAILY@0830 #30 cap.er.24h 05/08/18 Triamcinolone 0.5% Ointment [Aristocort 0.5% Ointment -] 1 applic TP BID #45 g 05/08/18 cloNIDine HCL [Catapres -] 0.1 mg PO BID #60 tablet 05/08/18 hydrOXYzine HCL [Atarax -] 50 mg PO Q6H PRN #360 tablet 05/08/18 Acetaminophen [Tylenol .Regular Strength -] 650 mg PO Q6H PRN tablet 07/08/18 Thiamine HCl [Vitamin B1 -] 100 mg PO DAILY #30 tablet 07/08/18 cloNIDine HCL [Catapres -] 0.1 mg PO BID tablet 07/08/18 oxyCODONE HCL [Roxicodone -] 5 mg PO Q6H PRN #20 tablet MDD 4 07/08/18 traMADol HCL [Ultram -] 50 mg PO Q6H PRN #20 tablet MDD 4 07/08/18 Spironolactone [Aldactone -] 50 mg PO DAILY #30 tablet 07/10/18 levETIRAcetam [Keppra -] 500 mg PO BID 07/09/19 Folic Acid 1 mg PO DAILY #30 tablet 07/10/19 Physical Examination Vital Signs: Vital Signs Temperature 97.8 F 09/09/19 19:19 Pulse Rate 79 09/09/19 19:19 Respiratory Rate 19 09/09/19 19:19 Blood Pressure 111/56 L 09/09/19 19:19 O2 Sat by Pulse Oximetry (%) 100 09/09/19 19:19 Constitutional: Yes: No Distress HENT: Yes: Atraumatic Neck: Yes: Supple Cardiovascular: Yes: Regular Rate and Rhythm Respiratory: Yes: CTA Bilaterally Gastrointestinal: Yes: Normal Bowel Sounds Extremities: Yes: WNL Edema: No Neurological: Yes: Alert, Oriented Labs: CBC, BMP 09/09/19 17:40 09/09/19 17:40 Problem List - Problems (1) GI (gastrointestinal bleed) Assessment/Plan: FU H/H GI CONSULT Code(s): K92.2 - GASTROINTESTINAL HEMORRHAGE, UNSPECIFIED (2) Missed dialysis Assessment/Plan: renal board on Hd Code(s): [id number] - (3) CKD (chronic kidney disease) Code(s): N18.9 - CHRONIC KIDNEY DISEASE, UNSPECIFIED (4) ESRD (end stage renal disease) on dialysis Code(s): N18.6 - END STAGE RENAL DISEASE; Z99.2 - DEPENDENCE ON RENAL DIALYSIS Assessment/Plan Laboratory Tests 09/09/19 09/09/19 09/09/19 17:40 17:40 17:40 WBC 5.6 RBC 1.66 L Hgb 5.4 L* Hct 15.6 L D MCV 94.4 MCH 32.6 MCHC 34.6 RDW 18.2 H Plt Count 99 L D MPV 7.5 D Absolute Neuts (auto) 4.4 Neutrophils % 77.9 Lymphocytes % 11.6 D Monocytes % 7.7 Eosinophils % 2.2 Basophils % 0.6 Nucleated RBC % 0 PT with INR INR PTT (Actin FS) Sodium 130 L Potassium 4.1 Chloride 99 Carbon Dioxide 19 L Anion Gap 13 BUN 70.9 H Creatinine 5.7 H Est GFR (CKD-EPI)AfAm 12.61 Est GFR (CKD-EPI)NonAf 10.88 Random Glucose 118 H Calcium 7.7 L Phosphorus Magnesium Total Bilirubin 0.4 0.4 Direct Bilirubin 0.2 AST 14 L 14 L ALT 13 12 L Alkaline Phosphatase 160 H 158 H Total Protein 5.9 L 6.0 L Albumin 2.8 L 2.9 L Stool Occult Blood Blood Type Antibody Screen Crossmatch 09/09/19 09/09/19 09/09/19 17:40 18:50 18:50 WBC RBC Hgb Hct MCV MCH MCHC RDW Plt Count MPV Absolute Neuts (auto) Neutrophils % Lymphocytes % Monocytes % Eosinophils % Basophils % Nucleated RBC % PT with INR 11.90 INR 1.01 PTT (Actin FS) 28.1 Sodium Potassium Chloride Carbon Dioxide Anion Gap BUN Creatinine Est GFR (CKD-EPI)AfAm Est GFR (CKD-EPI)NonAf Random Glucose Calcium Phosphorus 6.6 H Magnesium 2.3 Total Bilirubin Direct Bilirubin AST ALT Alkaline Phosphatase Total Protein Albumin Stool Occult Blood Blood Type B POSITIVE Antibody Screen Negative Crossmatch See Detail 09/09/19 20:10 WBC RBC Hgb Hct MCV MCH MCHC RDW Plt Count MPV Absolute Neuts (auto) Neutrophils % Lymphocytes % Monocytes % Eosinophils % Basophils % Nucleated RBC % PT with INR INR PTT (Actin FS) Sodium Potassium Chloride Carbon Dioxide Anion Gap BUN Creatinine Est GFR (CKD-EPI)AfAm Est GFR (CKD-EPI)NonAf Random Glucose Calcium Phosphorus Magnesium Total Bilirubin Direct Bilirubin AST ALT Alkaline Phosphatase Total Protein Albumin Stool Occult Blood Negative Blood Type Antibody Screen Crossmatch Active Medications Generic Name Dose Route Start Last Admin Trade Name Koleq PRN Reason Stop Dose Admin Pantoprazole Sodium 80 mg/ 100 mls @ 10 mls/hr 09/09/19 20:15 Sodium Chloride IVPB Q10H DEV 8 MG/HR Octreotide Acetate 200 mcg/ 500 mls @ 20.833 mls/hr 09/09/19 20:15 Octreotide Acetate 1,000 mcg/ IVPB Dextrose ASDIR DEV Protocol Active Medications Generic Name Dose Route Start Last Admin Trade Name Alexx PRN Reason Stop Dose Admin Acetaminophen 1,000 mg 09/14/19 19:19 09/16/19 18:26 Ofirmev Injection - IVPB 1,000 mg Q6H PRN Administration PAIN LEVEL 1-5 Amlodipine Besylate 10 mg 09/10/19 10:00 09/16/19 09:46 Norvasc - PO 10 mg DAILY DEV Administration Clindamycin HCl 300 mg 09/15/19 00:00 09/16/19 17:49 Cleocin - PO 300 mg Q6HPO DEV Administration Diphenhydramine HCl 50 mg 09/16/19 15:26 09/16/19 18:27 Benadryl Injection - IVPB 50 mg Q6H PRN Administration itchiness Epoetin Kendall 12,000 unit 09/17/19 09:49 Epogen - IVPUSH 09/17/19 09:50 ONCE ONE Octreotide Acetate 200 mcg/ 500 mls @ 20.833 mls/hr 09/09/19 20:15 09/15/19 20:04 Octreotide Acetate 1,000 mcg/ IVPB Not Given Dextrose ASDIR DEV Protocol Pantoprazole Sodium 160 mg/ 290 mls @ 14.5 mls/hr 09/13/19 16:00 09/16/19 05: 00 Sodium Chloride IVPB Not Given Q20H DEV Sodium Chloride 250 mls @ 3,000 mls/hr 09/16/19 09:49 Normal Saline - IV 09/17/19 09:49 PRN PRN Hypotension during Dialysis Levetiracetam 500 mg 09/09/19 22:00 09/16/19 09:46 Keppra - PO 500 mg BID DEV Administration Melatonin 5 mg 09/14/19 19:32 09/15/19 23:01 Melatonin PO 5 mg HS PRN Administration INSOMNIA Ondansetron HCl 4 mg 09/16/19 15:26 09/16/19 16:05 Zofran Injection IVPUSH 4 mg Q6H PRN Administration NAUSEA AND/OR VOMITING Tamsulosin HCl 0.4 mg 09/10/19 08:30 09/16/19 09:46 Flomax - PO 0.4 mg DAILY@0830 DEV Administration Thiamine HCl 100 mg 09/10/19 10:00 09/16/19 09:47 Vitamin B1 - PO 100 mg DAILY DEV Administration
[2019-09-09 21:16] LABS: EPI CELLS 2.7 /HPF (0-5/HPF); HYALINE CASTS 1 /lpf (0-8); URINE APPEARANCE CLEAR; URINE BACTERIA 11.2 /hpf (NEGATIVE); URINE BILIRUBIN NEGATIVE (NEGATIVE); URINE COLOR YELLOW; URINE GLUCOSE (UA) NEGATIVE (NEGATIVE); URINE KETONE NEGATIVE (NEGATIVE); URINE LEUK ESTERASE NEGATIVE (NEGATIVE); URINE NITRITE NEGATIVE (NEGATIVE); URINE PROTEIN 3+ (NEGATIVE); URINE RBC 2 /hpf (0-4); URINE UROBILINOGEN 0.2 mg/dL (0.2-1.0); URINE WBC 3 /hpf (0-5)
--- NOTE | 2019-09-09 21:26 | CON.GI ---
Consult Consult Specialty:: Gastroenterology ( covering the [facility] GI service) Referred by:: Dr Powers Reason for Consultation:: GI bleed - History of Present Illness Chief Complaint: Black stools History of Present Illness: 49M with ESRD on HD, alcoholic cirrhosis and TIPS on the liver transplant list at [facility] deviated from his alcohol abstinence on 09/05 when he drank " a couple of beers" in a moment of depression. On 09/06 he developed loose black diarrhea and nonbloody vomiting with dypepsia. He had black stool yesterday and again today. He also skipped his last 2 dialysis sessions and has not been dialyzed since 09/02/19. He does not know the etiology of his kidney failure but his HTN has been malignant enough to causes seizures and bleeding that required [place] hole drainage. He was scheduled to have a repeat EGD and colonoscopy with Dr. Brady De La Torre at [facility] as part of transplant preparation. It was postponed for a cardiac condition that has not yet been investigated. He believes that he had polyp previously removed. He has never had a lower GI bleeding. He had multiple transfusion requiring UGI bleeds with repeated rubber band ligations at [facility] that ultimately required the TIPS which was placed at [facility]. 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 fall after seizre or hypertensive hemorrhage) Cardio/Vascular: Yes: HTN, Hyperlipdemia, Other (recent cardiac condition postponed EGD and colonoscopy) Gastrointestinal: Yes: GI Bleed (multiple esophageal variceal bleed and banding before TIPS was placed at [facility]), Other (colon polyp removed by Dr De La Torre at [facility] ?) Hepatobiliary: Yes: Cirrhosis (alcoholic cirrhosis), Cholelithiasis Renal/: Yes: Renal Inusuff, Hematuria, Hemodialysis Psych: Yes: Addictions (alcohol, previously cocaine and marijuana), Depression, Other (attempted suicide) Endocrine: Yes: Diabetes Mellitus - Past Surgical History Past Surgical History: Yes: Arthrosocopy (left knee), Colonoscopy, Upper Endoscopy Additional Surgical History: TIPS at [facility]. 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 (year): age 6 History of Recent Travel: No Home Medications - Allergies Allergies/Adverse Reactions: Allergies Allergy/AdvReac Type Severity Reaction Status Date / Time shellfish derived Allergy Severe Swelling Verified 09/09/19 16:26 Fish Containing Products Allergy Intermediate Itching Verified 09/09/19 16:26 - Home Medications Home Medications: Ambulatory Orders Multivitamin [One Daily] 1 each PO DAILY #30 tablet 09/27/17 Ferrous Sulfate 325 mg PO DAILY 04/30/18 Amlodipine Besylate [Norvasc -] 10 mg PO DAILY #30 tab 05/08/18 Furosemide [Lasix -] 40 mg PO BID@0600,1400 #60 tablet 05/08/18 Lactulose (Oral Use) [Cephulac -] 20 gm PO BID #1800 ml 05/08/18 Tamsulosin HCl [Flomax -] 0.4 mg PO DAILY@0830 #30 cap.er.24h 05/08/18 Triamcinolone 0.5% Ointment [Aristocort 0.5% Ointment -] 1 applic TP BID #45 g 05/08/18 cloNIDine HCL [Catapres -] 0.1 mg PO BID #60 tablet 05/08/18 hydrOXYzine HCL [Atarax -] 50 mg PO Q6H PRN #360 tablet 05/08/18 Acetaminophen [Tylenol .Regular Strength -] 650 mg PO Q6H PRN tablet 07/08/18 Thiamine HCl [Vitamin B1 -] 100 mg PO DAILY #30 tablet 07/08/18 cloNIDine HCL [Catapres -] 0.1 mg PO BID tablet 07/08/18 oxyCODONE HCL [Roxicodone -] 5 mg PO Q6H PRN #20 tablet MDD 4 07/08/18 traMADol HCL [Ultram -] 50 mg PO Q6H PRN #20 tablet MDD 4 07/08/18 Spironolactone [Aldactone -] 50 mg PO DAILY #30 tablet 07/10/18 levETIRAcetam [Keppra -] 500 mg PO BID 07/09/19 Folic Acid 1 mg PO DAILY #30 tablet 07/10/19 Physical Exam-GI Vital Signs: Vital Signs Temperature 97.8 F 09/09/19 19:19 Pulse Rate 79 09/09/19 19:19 Respiratory Rate 19 09/09/19 19:19 Blood Pressure 111/56 L 09/09/19 19:19 O2 Sat by Pulse Oximetry (%) 100 09/09/19 19:19 CBC,CMP WBC 5.6 K/mm3 (4.0-10.0) 09/09/19 17:40 RBC 1.66 M/mm3 (4.00-5.60) L 09/09/19 17:40 Hgb 5.4 GM/dL (11.7-16.9) L* 09/09/19 17:40 Hct 15.6 % (35.4-49) L D 09/09/19 17:40 MCV 94.4 fl (80-96) 09/09/19 17:40 MCH 32.6 pg (25.7-33.7) 09/09/19 17:40 MCHC 34.6 g/dl (32.0-35.9) 09/09/19 17:40 RDW 18.2 % (11.9-15.9) H 09/09/19 17:40 Plt Count 99 K/MM3 (134-434) L D 09/09/19 17:40 MPV 7.5 fl (7.5-11.1) D 09/09/19 17:40 Absolute Neuts (auto) 4.4 K/mm3 (1.5-8.0) 09/09/19 17:40 Neutrophils % 77.9 % (42.8-82.8) 09/09/19 17:40 Lymphocytes % 11.6 % (8-40) D 09/09/19 17:40 Monocytes % 7.7 % (3.8-10.2) 09/09/19 17:40 Eosinophils % 2.2 % (0-4.5) 09/09/19 17:40 Basophils % 0.6 % (0-2.0) 09/09/19 17:40 Nucleated RBC % 0 % (0-0) 09/09/19 17:40 Sodium 130 mmol/L (136-145) L 09/09/19 17:40 Potassium 4.1 mmol/L (3.5-5.1) 09/09/19 17:40 Chloride 99 mmol/L (98-107) 09/09/19 17:40 Carbon Dioxide 19 mmol/L (21-32) L 09/09/19 17:40 Anion Gap 13 MMOL/L (8-16) 09/09/19 17:40 BUN 70.9 mg/dL (7-18) H 09/09/19 17:40 Creatinine 5.7 mg/dL (0.55-1.3) H 09/09/19 17:40 Est GFR (CKD-EPI)AfAm 12.61 09/09/19 17:40 Est GFR (CKD-EPI)NonAf 10.88 09/09/19 17:40 Random Glucose 118 mg/dL (74-106) H 09/09/19 17:40 Calcium 7.7 mg/dL (8.5-10.1) L 09/09/19 17:40 Phosphorus 6.6 mg/dL (2.5-4.9) H 09/09/19 17:40 Magnesium 2.3 mg/dL (1.8-2.4) 09/09/19 17:40 Total Bilirubin 0.4 mg/dL (0.2-1) 09/09/19 17:40 Direct Bilirubin 0.2 mg/dL (0.0-0.2) 09/09/19 17:40 AST 14 U/L (15-37) L 09/09/19 17:40 ALT 12 U/L (13-61) L 09/09/19 17:40 Alkaline Phosphatase 158 U/L (45-117) H 09/09/19 17:40 Total Protein 6.0 g/dl (6.4-8.2) L 09/09/19 17:40 Albumin 2.9 g/dl (3.4-5.0) L 09/09/19 17:40 Current Medications Generic Name Dose Route Start Last Admin Trade Name Freq PRN Reason Stop Dose Admin Amlodipine Besylate 10 mg 09/10/19 10:00 Norvasc - PO DAILY DEV Pantoprazole Sodium 80 mg/ 100 mls @ 10 mls/hr 09/09/19 20:15 Sodium Chloride IVPB Q10H DEV 8 MG/HR Octreotide Acetate 200 mcg/ 500 mls @ 20.833 mls/hr 09/09/19 20:15 Octreotide Acetate 1,000 mcg/ IVPB Dextrose ASDIR DEV Protocol Levetiracetam 500 mg 09/09/19 22:00 Keppra - PO BID DEV Tamsulosin HCl 0.4 mg 09/10/19 08:30 Flomax - PO DAILY@0830 DEV Thiamine HCl 100 mg 09/10/19 10:00 Vitamin B1 - PO DAILY DEV Constitutional: Yes: Anxious Eyes: Yes: WNL, Conjunctiva Clear HENT: Yes: Other (right frontal [place] hole scar) Neck: Yes: Supple Cardiovascular: Yes: Regular Rate and Rhythm Respiratory: Yes: CTA Bilaterally ...Auscultate: Yes: Normoactive Bowel Sounds ...Palpate: Yes: Soft, Other (nontender) ...Rectal Exam: Yes: Guaiac Positive (smudge of dark brown g positive stool) Neurological: Yes: Alert, Oriented Labs: CBC, BMP 09/09/19 17:40 09/09/19 17:40 INR, PTT INR 1.01 (0.83-1.09) 09/09/19 18:50 Problem List - Problems (1) Alcoholic cirrhosis of liver without ascites Code(s): K70.30 - ALCOHOLIC CIRRHOSIS OF LIVER WITHOUT ASCITES (2) History of esophageal varices with bleeding Code(s): Z87.19 - PERSONAL HISTORY OF OTHER DISEASES OF THE DIGESTIVE SYSTEM (3) GI (gastrointestinal bleed) Code(s): K92.2 - GASTROINTESTINAL HEMORRHAGE, UNSPECIFIED (4) Missed dialysis Code(s): [id number] - (5) Alcohol-induced depressive disorder with moderate or severe use disorder Code(s): F10.24 - ALCOHOL DEPENDENCE WITH ALCOHOL-INDUCED MOOD DISORDER; F32.89 - OTHER SPECIFIED DEPRESSIVE EPISODES (6) ESRD (end stage renal disease) on dialysis Code(s): N18.6 - END STAGE RENAL DISEASE; Z99.2 - DEPENDENCE ON RENAL DIALYSIS (7) S/P TIPS (transjugular intrahepatic portosystemic shunt) Code(s): Z95.828 - PRESENCE OF OTHER VASCULAR IMPLANTS AND GRAFTS (8) Diabetes 1.5, managed as type 1 Code(s): E13.9 - OTHER SPECIFIED DIABETES MELLITUS WITHOUT COMPLICATIONS (9) Cholelithiasis Code(s): K80.20 - CALCULUS OF GALLBLADDER W/O CHOLECYSTITIS W/O OBSTRUCTION Assessment/Plan Assessment: - Given the profound anemia which is lower than his previous 6.4 an active GI bleed needs to be excluded. A UGI bleed would appears to be the more likely source but if EGD is unrevealing a colonoscopy will need to be considered. Given his TIPS and apparent compensated cirrhosis I doubt a portal gastropathy or variceal bleed. May have alcoholic gastritis or an ulcer. - Must be watched for alcohol withdrawal. Relapse of alcohol usage will take him off the transplant list Plan -- PPI and Octreotide drips -- Stabilize with transfusions, then dialyze before attempting EGD. If hemorrhage ensues then EGD will be undertaken emergently. I have discussed EGD and possible variceal banding with Randy and informed him of the potential for such risks as perforation, infection and worsening of hemorrhage. -- Communicate with the [facility] at a better opportunity -- Watch for alcohol withdrawal and start a Librium tapering regimen if any agitation or signs of DT ensue -- Keep NPO until status of bleeding is better determined. -- Consider cardiac evaluation of the condition that postponed his [facility] EGD and colonoscopy or contact [facility] -- AFP
--- NOTE | 2019-09-09 21:27 | CONSULT ---
Consultation: REQUESTING PROVIDER: Dr Sparks PT HEMODYNAMICALLY STABLE. DOES NOT REQUIRE ICU LEVEL OF CARE AT THIS JUNCTURE. IF CONDITIONS CHANGES, PLEASE CONTACT JULISSA. CONSULT REQUEST: We have been asked to medically evaluate this patient for (ESRD , Volume Overload). HISTORY OF PRESENT ILLNESS: Pt is a 49 y/o M with a significant past medical history of ESRD (T,T, SAT) , HTN, Seizure d/o, Depression, Alcoholic Cirrhosis (s/p TIPS ~10 years ago) who presented to [facility] at the behest of his dialysis center staff. Pt endorses that he has missed around 5 hemodialysis sessions due to him suffering from a common cold and not having the energy to attend the sessions. Pt also endorses that he has been very depressed recently and has been neglecting his health as a result. Pt states that around 3 days ago, he began to notice dark colored stool as well as some red tinged stool. During this juncture, he also has been dyspneic when ambulatory. REVIEW OF SYSTEMS: CONSTITUTIONAL: Absent: fever, chills, diaphoresis, generalized weakness, malaise, loss of appetite, weight change HEENT: Absent: rhinorrhea, nasal congestion, throat pain, throat swelling, difficulty swallowing, mouth swelling, ear pain, eye pain, visual changes CARDIOVASCULAR: Absent: chest pain, syncope, palpitations, irregular heart rate, lightheadedness , peripheral edema RESPIRATORY: Absent: cough, shortness of breath, dyspnea with exertion, orthopnea, wheezing, stridor, hemoptysis GASTROINTESTINAL: PRESENT nausea, vomiting,melena, hematochezia GENITOURINARY: Absent: dysuria, frequency, urgency, hesitancy, hematuria, flank pain, genital pain MUSCULOSKELETAL: Absent: myalgia, arthralgia, joint swelling, back pain, neck pain SKIN: Absent: rash, itching, pallor HEMATOLOGIC/IMMUNOLOGIC: Absent: easy bleeding, easy bruising, lymphadenopathy, frequent infections ENDOCRINE: Absent: unexplained weight gain, unexplained weight loss, heat intolerance, cold intolerance NEUROLOGIC: Absent: headache, focal weakness or paresthesias, dizziness, unsteady gait, seizure, mental status changes, bladder or bowel incontinence PSYCHIATRIC: PRESENT: depression PHYSICAL EXAMINATION Vital Signs - 24 hr 09/09/19 09/09/19 09/09/19 16:27 17:00 19:19 Temperature 98.2 F 97.8 F Pulse Rate 78 Pulse Rate [ 79 Apical] Respiratory 17 19 Rate Blood Pressure 110/42 L Blood Pressure 111/56 L [Left Arm] O2 Sat by Pulse 100 99 99 Oximetry (%) GENERAL: NAD AAOx3 HEAD: Normal with no signs of trauma. EYES: EOMI, Scleral icterus EARS, NOSE, THROAT: Dry mucous membranes LUNGS: CTAB HEART: RRR ABDOMEN: Soft,NDNT No HSM. Refused Rectal exam (was recently performed) UPPER EXTREMITIES: AVF RUE-palpable thrill LOWER EXTREMITIES: No CCE PSYCHIATRIC: Cooperative. Good eye contact. Appropriate mood and affect. SKIN: Warm, dry, normal turgor, no rashes or lesions noted. Laboratory Results - last 24 hr 09/09/19 09/09/19 09/09/19 17:40 17:40 17:40 WBC 5.6 RBC 1.66 L Hgb 5.4 L* Hct 15.6 L D MCV 94.4 MCH 32.6 MCHC 34.6 RDW 18.2 H Plt Count 99 L D MPV 7.5 D Absolute Neuts (auto) 4.4 Neutrophils % 77.9 Lymphocytes % 11.6 D Monocytes % 7.7 Eosinophils % 2.2 Basophils % 0.6 Nucleated RBC % 0 PT with INR INR PTT (Actin FS) Sodium 130 L Potassium 4.1 Chloride 99 Carbon Dioxide 19 L Anion Gap 13 BUN 70.9 H Creatinine 5.7 H Est GFR (CKD-EPI)AfAm 12.61 Est GFR (CKD-EPI)NonAf 10.88 Random Glucose 118 H Calcium 7.7 L Phosphorus Magnesium Total Bilirubin 0.4 0.4 Direct Bilirubin 0.2 AST 14 L 14 L ALT 13 12 L Alkaline Phosphatase 160 H 158 H Total Protein 5.9 L 6.0 L Albumin 2.8 L 2.9 L Urine Color Urine Appearance Urine pH Ur Specific [place] Urine Protein Urine Glucose (UA) Urine Ketones Urine Blood Urine Nitrite Urine Bilirubin Urine Urobilinogen Ur Leukocyte Esterase Urine WBC (Auto) Urine RBC (Auto) Urine Casts (Auto) U Epithel Cells (Auto) Urine Bacteria (Auto) Stool Occult Blood Blood Type Antibody Screen Crossmatch 09/09/19 09/09/19 09/09/19 17:40 18:50 18:50 WBC RBC Hgb Hct MCV MCH MCHC RDW Plt Count MPV Absolute Neuts (auto) Neutrophils % Lymphocytes % Monocytes % Eosinophils % Basophils % Nucleated RBC % PT with INR 11.90 INR 1.01 PTT (Actin FS) 28.1 Sodium Potassium Chloride Carbon Dioxide Anion Gap BUN Creatinine Est GFR (CKD-EPI)AfAm Est GFR (CKD-EPI)NonAf Random Glucose Calcium Phosphorus 6.6 H Magnesium 2.3 Total Bilirubin Direct Bilirubin AST ALT Alkaline Phosphatase Total Protein Albumin Urine Color Urine Appearance Urine pH Ur Specific [place] Urine Protein Urine Glucose (UA) Urine Ketones Urine Blood Urine Nitrite Urine Bilirubin Urine Urobilinogen Ur Leukocyte Esterase Urine WBC (Auto) Urine RBC (Auto) Urine Casts (Auto) U Epithel Cells (Auto) Urine Bacteria (Auto) Stool Occult Blood Blood Type B POSITIVE Antibody Screen Negative Crossmatch See Detail 09/09/19 09/09/19 20:10 20:40 WBC RBC Hgb Hct MCV MCH MCHC RDW Plt Count MPV Absolute Neuts (auto) Neutrophils % Lymphocytes % Monocytes % Eosinophils % Basophils % Nucleated RBC % PT with INR INR PTT (Actin FS) Sodium Potassium Chloride Carbon Dioxide Anion Gap BUN Creatinine Est GFR (CKD-EPI)AfAm Est GFR (CKD-EPI)NonAf Random Glucose Calcium Phosphorus Magnesium Total Bilirubin Direct Bilirubin AST ALT Alkaline Phosphatase Total Protein Albumin Urine Color Yellow Urine Appearance Clear Urine pH 5.0 Ur Specific [place] 1.010 Urine Protein 3+ H Urine Glucose (UA) Negative Urine Ketones Negative Urine Blood Negative Urine Nitrite Negative Urine Bilirubin Negative Urine Urobilinogen 0.2 Ur Leukocyte Esterase Negative Urine WBC (Auto) 3 Urine RBC (Auto) 2 Urine Casts (Auto) 1 U Epithel Cells (Auto) 2.7 Urine Bacteria (Auto) 11.2 Stool Occult Blood Negative Blood Type Antibody Screen Crossmatch Active Medications Generic Name Dose Route Start Last Admin Trade Name Freq PRN Reason Stop Dose Admin Amlodipine Besylate 10 mg 09/10/19 10:00 Norvasc - PO DAILY DEV Pantoprazole Sodium 80 mg/ 100 mls @ 10 mls/hr 09/09/19 20:15 Sodium Chloride IVPB Q10H DEV 8 MG/HR Octreotide Acetate 200 mcg/ 500 mls @ 20.833 mls/hr 09/09/19 20:15 Octreotide Acetate 1,000 mcg/ IVPB Dextrose ASDIR DEV Protocol Levetiracetam 500 mg 09/09/19 22:00 Keppra - PO BID DEV Tamsulosin HCl 0.4 mg 09/10/19 08:30 Flomax - PO DAILY@0830 DEV Thiamine HCl 100 mg 09/10/19 10:00 Vitamin B1 - PO DAILY DEV ASSESSMENT/PLAN: Pt is a 49 y/o M with a significant past medical history of ESRD (T,T,SAT), HTN , Seizure d/o, Depression, Alcoholic Cirrhosis (s/p TIPS ~10 years ago) who presented to [facility] at the behest of his dialysis center staff. # GI- Likely GI Bleed -Guiac + exam - H/H 5.4/15/6 - H/o Varices and Cirrhosis -S/p PRBC 1 U transfusion -Trend CBC. VSS -GI on board. Will need EGD, if unrevealing will need colonoscopy. -Protonix and Octreotide drips -Monitor for alcohol withdrawal. Librium protocol if signs of DT. #RENAL-ESRD -on T,T,S Schedule -Nephrology on board -Bun/Cr 70.9/5.7 -Plan for dialysis tomorrow Dispo: Pt hemodynamically stable. No indication for ICU level of care at this juncture. Please contact if condition changes. Visit type - Emergency Visit Emergency Visit: Yes ED Registration Date: 09/09/19 Care time: The patient presented to the Emergency Department on the above date and was hospitalized for further evaluation of their emergent condition. - New Patient This patient is new to me today: Yes Date on this admission: 09/11/19 - Critical Care Critical Care patient: No ATTENDING PHYSICIAN STATEMENT I saw and evaluated the patient. I reviewed the resident's note and discussed the case with the resident. I agree with the resident's findings and plan as documented. SUBJECTIVE: OBJECTIVE: ASSESSMENT AND PLAN:
[2019-09-09] MEDS: levETIRAcetam 500 MG TABLET (FP) PO SCH (23:39)
[2019-09-10] MEDS: OCTREOTIDE ACETATE 200 MCG, OCTREOTIDE ACETATE 1,000 MCG in DEXTROSE 5%-WATER - 496 ML IVPB SCH ×2 (00:18→20:37)
[2019-09-10] MEDS: PANTOPRAZOLE SODIUM 80 MG in SODIUM CHLORIDE 100 ML IVPB SCH ×3 (00:18→17:15)
[2019-09-10 05:59] LABS: BASO % 0.9 % (0-2.0); EOS % 4.5 % (0-4.5); HEMATOCRIT 18.9 % (35.4-49); LYMPH % 21.6 % (8-40); MCH 31.9 pg (25.7-33.7); MCHC 34.5 g/dl (32.0-35.9); MEAN CELL VOLUME 92.7 fl (80-96); MEAN PLT VOLUME 7.6 fl (7.5-11.1); MONO % 11.3 % (3.8-10.2); NEUT % 61.7 % (42.8-82.8); PLATELET COUNT 71 K/MM3 (134-434); RBC 2.04 M/mm3 (4.00-5.60); RDW 17.8 % (11.9-15.9); WHITE BLOOD COUNT 3.7 K/mm3 (4.0-10.0)
[2019-09-10 06:37] LABS: ALBUMIN 2.4 g/dl (3.4-5.0); BILIRUBIN,TOTAL 0.8 mg/dL (0.2-1); CALCIUM 7.5 mg/dL (8.5-10.1); CREATININE 5.8 mg/dL (0.55-1.3); POTASSIUM 4.1 mmol/L (3.5-5.1); TOT PROT 5.1 g/dl (6.4-8.2)
[2019-09-10 06:48] LABS: HEMOGLOBIN 6.5 GM/dL (11.7-16.9)
[2019-09-10] MEDS ORDERED: TAMSULOSIN HCL 0.4 MG CAP ONE (08:49)
[2019-09-10] MEDS: TAMSULOSIN HCL 0.4 MG CAP PO SCH (09:02)
[2019-09-10] MEDS: amLODIPine BESYLATE 10 MG TABLET (FP) PO SCH (10:19)
[2019-09-10] MEDS: levETIRAcetam 500 MG TABLET (FP) PO SCH ×2 (10:19→21:18)
[2019-09-10] MEDS: THIAMINE HCL 100 MG TABLET (FP) PO SCH (10:19)
--- NOTE | 2019-09-10 12:52 | EKG ---
Test Reason : Blood Pressure : / mmHG Vent. Rate : 076 BPM Atrial Rate : 076 BPM P-R Int : 150 ms QRS Dur : 098 ms QT Int : 440 ms P-R-T Axes : 020 032 040 degrees QTc Int : 495 ms NORMAL SINUS RHYTHM PROLONGED QT ABNORMAL ECG WHEN COMPARED WITH ECG OF 05-JUL-2018 05:05, NO SIGNIFICANT CHANGE WAS FOUND Confirmed by Paul Fung MD ([id number]) on 09/10/2019 12:51:48 PM Referred By: Confirmed By:Paul Fung MD
--- NOTE | 2019-09-10 13:11 | CONSULT ---
Consult Consult Specialty:: Nephrology Reason for Consultation:: ESRD - History of Present Illness Chief Complaint: sent in from HD after missing 5 sessions History of Present Illness: Pt is a 49 year old male with pmhx of htn, HLD, DM. ESRD (TTS schedule), hx etoh abuse, liver cirrhisis s/p tips and GI bleed who was sent in from HD as he missed 5 sessions. He had bloodwork and was found to be anemic. He denies chest pain or shortness of breath. He does have black stool however he is on iron. He denies abdominal pain. - History Source History Provided By: Patient, Medical Record - Past Medical History [employer]INTAIN[employer]: Yes: Seizure, Other ([place] hole decompression of intracerebral bleed ? fall after seizre or hypertensive hemorrhage) Cardio/Vascular: Yes: HTN, Hyperlipdemia, Other (recent cardiac condition postponed EGD and colonoscopy) Gastrointestinal: Yes: GI Bleed (multiple esophageal variceal bleed and banding before TIPS was placed at [facility]), Other (colon polyp removed by Dr De La Torre at [facility] ?) Hepatobiliary: Yes: Cirrhosis (alcoholic cirrhosis), Cholelithiasis Renal/: Yes: Renal Inusuff, Hematuria, Hemodialysis Psych: Yes: Addictions (alcohol, previously cocaine and marijuana), Depression, Other (attempted suicide) Endocrine: Yes: Diabetes Mellitus - Past Surgical History Past Surgical History: Yes: Arthrosocopy (left knee), Colonoscopy, Upper Endoscopy Additional Surgical History: TIPS at [facility]. 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 History of Recent Travel: No Home Medications - Allergies Allergies/Adverse Reactions: Allergies Allergy/AdvReac Type Severity Reaction Status Date / Time shellfish derived Allergy Severe Swelling Verified 09/09/19 16:26 Fish Containing Products Allergy Intermediate Itching Verified 09/09/19 16:26 - Home Medications Home Medications: Ambulatory Orders Multivitamin [One Daily] 1 each PO DAILY #30 tablet 09/27/17 Ferrous Sulfate 325 mg PO DAILY 04/30/18 Amlodipine Besylate [Norvasc -] 10 mg PO DAILY #30 tab 05/08/18 Furosemide [Lasix -] 40 mg PO BID@0600,1400 #60 tablet 05/08/18 Lactulose (Oral Use) [Cephulac -] 20 gm PO BID #1800 ml 05/08/18 Tamsulosin HCl [Flomax -] 0.4 mg PO DAILY@0830 #30 cap.er.24h 05/08/18 Triamcinolone 0.5% Ointment [Aristocort 0.5% Ointment -] 1 applic TP BID #45 g 05/08/18 cloNIDine HCL [Catapres -] 0.1 mg PO BID #60 tablet 05/08/18 hydrOXYzine HCL [Atarax -] 50 mg PO Q6H PRN #360 tablet 05/08/18 Acetaminophen [Tylenol .Regular Strength -] 650 mg PO Q6H PRN tablet 07/08/18 Thiamine HCl [Vitamin B1 -] 100 mg PO DAILY #30 tablet 07/08/18 cloNIDine HCL [Catapres -] 0.1 mg PO BID tablet 07/08/18 oxyCODONE HCL [Roxicodone -] 5 mg PO Q6H PRN #20 tablet MDD 4 07/08/18 traMADol HCL [Ultram -] 50 mg PO Q6H PRN #20 tablet MDD 4 07/08/18 Spironolactone [Aldactone -] 50 mg PO DAILY #30 tablet 07/10/18 levETIRAcetam [Keppra -] 500 mg PO BID 07/09/19 Folic Acid 1 mg PO DAILY #30 tablet 07/10/19 Family Medical History Family History: Denies Review of Systems - Review of Systems Constitutional: reports: No Symptoms Eyes: reports: No Symptoms HENT: reports: No Symptoms Neck: reports: No Symptoms Cardiovascular: reports: No Symptoms Respiratory: reports: No Symptoms Gastrointestinal: reports: No Symptoms Genitourinary: reports: No Symptoms Musculoskeletal: reports: No Symptoms Integumentary: reports: No Symptoms Neurological: reports: No Symptoms Endocrine: reports: No Symptoms Hematology/Lymphatic: reports: No Symptoms Psychiatric: reports: No Symptoms Physical Exam Vital Signs: Vital Signs Temperature 98.2 F 09/10/19 12:36 Pulse Rate 76 09/10/19 12:36 Respiratory Rate 18 09/10/19 12:36 Blood Pressure 119/52 L 09/10/19 12:36 O2 Sat by Pulse Oximetry (%) 97 09/10/19 12:36 Constitutional: Yes: Calm HENT: Yes: Atraumatic Neck: Yes: Supple Cardiovascular: Yes: Regular Rate and Rhythm Respiratory: Yes: CTA Bilaterally Gastrointestinal: Yes: Soft Renal/: Yes: WNL Musculoskeletal: Yes: WNL Edema: No Neurological: Yes: Oriented Psychiatric: Yes: Oriented Labs: CBC, BMP 09/10/19 05:27 Laboratory Tests 07/10/19 09/09/19 09/09/19 06:21 17:40 17:40 Hgb 5.4 L* Sodium Potassium BUN Creatinine 5.1 H 5.7 H 09/10/19 09/10/19 09/10/19 05:27 05:27 12:57 Hgb 6.5 L* Pending Sodium 132 L Potassium 4.1 BUN 71.0 H Creatinine 5.8 H Imaging - Results Chest X-ray: Report Reviewed Problem List - Problems (1) ESRD (end stage renal disease) Code(s): N18.6 - END STAGE RENAL DISEASE (2) Alcoholic cirrhosis of liver without ascites Code(s): K70.30 - ALCOHOLIC CIRRHOSIS OF LIVER WITHOUT ASCITES (3) Missed dialysis Code(s): HTE6522 - Assessment/Plan Current Medications Generic Name Dose Route Start Last Admin Trade Name Freq PRN Reason Stop Dose Admin Amlodipine Besylate 10 mg 09/10/19 10:00 09/10/19 10:19 Norvasc - PO Not Given DAILY DEV Epoetin Kendall 10,000 unit 09/10/19 08:46 Epogen - IVPUSH 09/10/19 08:47 ONCE ONE Pantoprazole Sodium 80 mg/ 100 mls @ 10 mls/hr 09/09/19 20:15 09/10/19 06:34 Sodium Chloride IVPB 10 mls/hr Q10H DEV Administration 8 MG/HR Octreotide Acetate 200 mcg/ 500 mls @ 20.833 mls/hr 09/09/19 20:15 09/10/19 00:18 Octreotide Acetate 1,000 mcg/ IVPB 20.833 mls/hr Dextrose ASDIR DEV Administration Protocol Sodium Chloride 250 mls @ 3,000 mls/hr 09/10/19 08:46 Normal Saline - IV 09/11/19 08:46 PRN PRN Hypotension during Dialysis Levetiracetam 500 mg 09/09/19 22:00 09/10/19 10:19 Keppra - PO Not Given BID DEV Tamsulosin HCl 0.4 mg 09/10/19 08:30 09/10/19 09:02 Flomax - PO 0.4 mg DAILY@0830 DEV Administration Thiamine HCl 100 mg 09/10/19 10:00 09/10/19 10:19 Vitamin B1 - PO Not Given DAILY DEV Laboratory Tests 09/09/19 20:10 Stool Occult Blood Negative Impression 1. ESRD 2. htn 3. hx etoh abuse 4. liver cirrhosis with tips 5. anemia Plan - HD today - epogen for anemia - follow repeat hg - may need more blood with HD - no heparin in HD - monitor bp - 4 :15 180 abf 400 3 k bath
[2019-09-10 13:17] LABS: BASO % 0.6 % (0-2.0); EOS % 4.8 % (0-4.5); HEMATOCRIT 19.2 % (35.4-49); LYMPH % 21.8 % (8-40); MCH 31.4 pg (25.7-33.7); MCHC 33.6 g/dl (32.0-35.9); MEAN CELL VOLUME 93.4 fl (80-96); MEAN PLT VOLUME 7.6 fl (7.5-11.1); MONO % 9.7 % (3.8-10.2); NEUT % 63.1 % (42.8-82.8); PLATELET COUNT 70 K/MM3 (134-434); RBC 2.05 M/mm3 (4.00-5.60); RDW 18.6 % (11.9-15.9); WHITE BLOOD COUNT 2.6 K/mm3 (4.0-10.0)
[2019-09-10 13:28] LABS: HEMOGLOBIN 6.5 GM/dL (11.7-16.9)
--- NOTE | 2019-09-10 14:28 | PN.GI ---
GI Progress Note Subjective: No overt bleeding Not diallyzed yet Hgb 6.5 this morning and this afternoon No melena or BM. Last episode of dark BM three days ago No abdominal pain - Objective Vital Signs: Vital Signs Temperature 09/10/19 1300 Pulse Rate 76 09/10/19 1300 Respiratory Rate 18 09/10/19 1300 Blood Pressure 133/65 09/10/19 1300 O2 Sat by Pulse Oximetry (%) 97 09/10/19 1300 Constitutional: Calm Eyes: No: Sclera Icterus Cardiovascular: Yes: Regular Rate and Rhythm Respiratory: Yes: CTA Bilaterally Gastrointestinal Inspection: No: Distention ...Auscultate: Yes: Normoactive Bowel Sounds ...Palpate: Yes: Soft. No: Splenomegaly, Tenderness ...Percussion: No: Tympanitic Edema: No (No LE edema) Neurological: Yes: Alert. No: [facility] Labs: CBC, BMP 09/10/19 12:57 09/10/19 05:27 INR, PTT INR 1.01 (0.83-1.09) 09/09/19 18:50 Problem List - Problems (1) Anemia Assessment/Plan: No overt bleeding and remains hemodynamically stable Advanced to clears For HD this afternoon. D/W Dr. Sparks Continue octreotide Change to BID PPI For EGD, tentatively for 09/[address] De La Torre and updated him regarding Mr. Martinez' admission. Was going to fax reports regarding recent recent visits to [facility] and regarding the "cardiac issue" that postponed procedures a month ago while he was at [facility]. Have not received them as of yet. I confirmed the [facility] [email or web address] fax number with him again. Problems reviewed: Yes Code(s): D64.9 - ANEMIA, UNSPECIFIED
[2019-09-10] MEDS ORDERED: SODIUM CHLORIDE 250 ML IV PRN (15:13)
[2019-09-10] MEDS ORDERED: EPOETIN ALFA 10,000 UNIT/1 ML VIAL IVPUSH ONE (15:15)
--- NOTE | 2019-09-10 15:26 | PN ---
Progress Note (short form) - Note Progress Note: PULMONARY CONSULTATION DICTATED 09/10/19 IMP DYSPNEA VOLUME OVERLOAD PT MISSED 5 DIALYSIS SESSIONS ESRD ON HD SYMPTOMATIC ANEMIA H/O ETOH ABUSE CIRRHOSIS ELEVATED AMMONIA LEVEL PLAN HD PER RENAL NORMAL TRANSFUSION THRESHOLD O2 NEEDED MONITOR H+H,AMMONIA LEVEL GI W/U DR HAMILTON Problem List - Problems (1) Alcoholic cirrhosis of liver without ascites Code(s): K70.30 - ALCOHOLIC CIRRHOSIS OF LIVER WITHOUT ASCITES (2) Anemia Code(s): D64.9 - ANEMIA, UNSPECIFIED (3) ESRD (end stage renal disease) Code(s): N18.6 - END STAGE RENAL DISEASE (4) GI (gastrointestinal bleed) Code(s): K92.2 - GASTROINTESTINAL HEMORRHAGE, UNSPECIFIED (5) History of esophageal varices with bleeding Code(s): Z87.19 - PERSONAL HISTORY OF OTHER DISEASES OF THE DIGESTIVE SYSTEM (6) Missed dialysis Code(s): [id number] - (7) ESRD (end stage renal disease) on dialysis Code(s): N18.6 - END STAGE RENAL DISEASE; Z99.2 - DEPENDENCE ON RENAL DIALYSIS (8) Nicotine dependence Code(s): F17.200 - NICOTINE DEPENDENCE, UNSPECIFIED, UNCOMPLICATED Qualifiers: Nicotine product type: cigarettes Substance use status: uncomplicated Qualified Code(s): F17.210 - Nicotine dependence, cigarettes, uncomplicated
[2019-09-10] MEDS ORDERED: PT OWN MED DRAWER 7, Y5N ONE ×3 (16:23→20:36)
[2019-09-10 16:33] VITALS: BMI 26.2
--- NOTE | 2019-09-10 17:46 | CONS ---
DATE OF CONSULTATION: 09/10/2019 PULMONARY CONSULTATION REFERRING PHYSICIAN: Cleveland Chowdhury M.D. HISTORY OF PRESENT ILLNESS: The patient is a 49-year-old male, past medical history end-stage renal disease on hemodialysis, ETOH abuse, alcohol cirrhosis status post status post TIPS, currently on liver transplant list at [facility]. History of seizure disorder, hypertension, hyperlipidemia. History of burhole decompression secondary to intracerebral bleed, had a floral seizure, anemia, history of GI bleed with multiple esophageal variceal bleeds and banding in the past prior to TIPS, admitted to [facility] with complaint of increasing shortness of breath. The patient apparently has skipped his last 5 dialysis sessions, the last being on September 02, 2019. Apparently he had lab work done which revealed anemia worse than usual. He presented to the emergency room with the above. He on admission was evaluated by GI for possible GI bleeding. He is to undergo hemodialysis. Patient has a history of tobacco use. Currently still occasionally smokes. He denies a history of occupational exposures to chemical or fumes. He denies a history of COPD or asthma in the past. PAST MEDICAL HISTORY: Again includes seizures, history of burhole decompression secondary to cerebral bleed, hypertension, hyperlipidemia, GI bleed, ETOH abuse, alcoholic cirrhosis currently on transplant list, cholelithiasis, and ESRD on hemodialysis. SOCIAL HISTORY: Again, born in [place], moved to the [place] at age 6. No occupational exposures. Positive tobacco. Positive previous ETOH abuse. CURRENT MEDICATIONS: Include Flomax, Keppra, Norvasc, normal saline, octreotide , pantoprazole, and vitamin D1. REVIEW OF SYSTEMS: Positive dyspnea on exertion. No chest pain. No palpitations. No cough. No abdominal pain. No lower extremity edema. PHYSICAL EXAMINATION: General: The patient is a well-developed, well-nourished male, awake, alert, in no acute distress. Vital Signs: Blood pressure 108/69, respiratory rate 18, and O2 saturation 95% on room air, and he is afebrile. The temperature is 98.2. HEENT: Normocephalic, atraumatic. Neck: Supple without any adenopathy. Heart: Regular with S1, S2. Chest: Clear. Abdomen: Soft, bowel sounds positive. Extremities: No cyanosis, edema. LABORATORY: Sodium 132, BUN 71, creatinine 5.8, ammonia level 118. WBC 2.6, hemoglobin 6.5, hematocrit 19.2. On admission his hemoglobin was 5.4, hematocrit 15.6. Chest CT reveals pleural thickening at the right base, with atelectatic basal consolidation likely secondary to atelectasis. IMPRESSION: 1. Dyspnea secondary to volume overload. Patient missed 5 dialysis sessions. 2. End-stage renal disease on hemodialysis. 3. Symptomatic anemia. 3. History of ethyl alcohol abuse. 4. Ethyl alcohol liver disease. 5. Elevated ammonia level. 6. Hypertension. PLAN: Hemodialysis as per renal. Normal transfusion threshold. O2 as needed. Monitor hemoglobin and hematocrit, ammonia level. GI workup in progress. Supplemental O2. ANGÉLICA HAMILTON M.D. [id number] MTDD
--- NOTE | 2019-09-10 19:27 | PN ---
Progress Note, Physician - Current Medication List Current Medications: Active Medications Amlodipine Besylate (Norvasc -) 10 mg PO DAILY [facility] Last Admin: 09/10/19 10:19 Dose: Not Given Pantoprazole Sodium 80 mg/ (Sodium Chloride) 100 mls @ 10 mls/hr IVPB Q10H [facility] Last Admin: 09/10/19 17:15 Dose: 10 mls/hr Octreotide Acetate 200 mcg/Octreotide Acetate 1,000 mcg/Dextrose 500 mls @ 20.833 mls/hr IVPB ASDIR [facility]; Protocol Last Admin: 09/10/19 00:18 Dose: 20.833 mls/hr Sodium Chloride (Normal Saline -) 250 mls @ 3,000 mls/hr IV PRN PRN PRN Reason: Hypotension during Dialysis Stop: 09/11/19 00:00 Levetiracetam (Keppra -) 500 mg PO BID [facility] Last Admin: 09/10/19 10:19 Dose: Not Given Tamsulosin HCl (Flomax -) 0.4 mg PO DAILY@0830 [facility] Last Admin: 09/10/19 09:02 Dose: 0.4 mg Thiamine HCl (Vitamin B1 -) 100 mg PO DAILY [facility] Last Admin: 09/10/19 10:19 Dose: Not Given - Objective Vital Signs: Vital Signs Temperature 97.9 F 09/10/19 16:00 Pulse Rate 74 09/10/19 18:35 Respiratory Rate 18 09/10/19 18:35 Blood Pressure 128/75 09/10/19 18:35 O2 Sat by Pulse Oximetry (%) 100 09/10/19 16:00 Constitutional: Yes: No Distress HENT: Yes: Atraumatic Neck: Yes: Supple Cardiovascular: Yes: Regular Rate and Rhythm Respiratory: Yes: CTA Bilaterally Gastrointestinal: Yes: Normal Bowel Sounds Extremities: Yes: WNL Neurological: Yes: Alert, Oriented Labs: CBC, BMP 09/10/19 12:57 09/10/19 05:27 INR, PTT INR 1.01 (0.83-1.09) 09/09/19 18:50 Problem List - Problems (1) GI (gastrointestinal bleed) Assessment/Plan: gi note reviewed fu h/h prbc infusion Code(s): K92.2 - GASTROINTESTINAL HEMORRHAGE, UNSPECIFIED (2) Missed dialysis Assessment/Plan: renal board Code(s): [id number] - (3) CKD (chronic kidney disease) Code(s): N18.9 - CHRONIC KIDNEY DISEASE, UNSPECIFIED (4) ESRD (end stage renal disease) on dialysis Code(s): N18.6 - END STAGE RENAL DISEASE; Z99.2 - DEPENDENCE ON RENAL DIALYSIS
[2019-09-10] MEDS ORDERED: ACETAMINOPHEN 325 MG TABLET (FP) PO PRN (20:33)
[2019-09-10 21:53] LABS: HEMATOCRIT 24.4 % (35.4-49); HEMOGLOBIN 8.6 GM/dL (11.7-16.9); MCH 31.6 pg (25.7-33.7); MCHC 35.3 g/dl (32.0-35.9); MEAN CELL VOLUME 89.5 fl (80-96); MEAN PLT VOLUME 7.5 fl (7.5-11.1); PLATELET COUNT 73 K/MM3 (134-434); RBC 2.72 M/mm3 (4.00-5.60); RDW 17.1 % (11.9-15.9)
[2019-09-11] MEDS: PANTOPRAZOLE SODIUM 80 MG in SODIUM CHLORIDE 100 ML IVPB SCH ×3 (02:41→21:51)
[2019-09-11 06:28] LABS: BASO % 0.7 % (0-2.0); EOS % 2.6 % (0-4.5); HEMOGLOBIN 8.1 GM/dL (11.7-16.9); LYMPH % 24.9 % (8-40); MCH 31.7 pg (25.7-33.7); MCHC 35.3 g/dl (32.0-35.9); MEAN CELL VOLUME 89.8 fl (80-96); MEAN PLT VOLUME 7.4 fl (7.5-11.1); NEUT % 58.8 % (42.8-82.8); PLATELET COUNT 73 K/MM3 (134-434); RBC 2.56 M/mm3 (4.00-5.60); RDW 18.2 % (11.9-15.9); WHITE BLOOD COUNT 2.4 K/mm3 (4.0-10.0)
[2019-09-11] MEDS: THIAMINE HCL 100 MG TABLET (FP) PO SCH (09:12)
[2019-09-11] MEDS: amLODIPine BESYLATE 10 MG TABLET (FP) PO SCH (09:13)
[2019-09-11] MEDS: levETIRAcetam 500 MG TABLET (FP) PO SCH ×2 (09:13→21:51)
[2019-09-11] MEDS: TAMSULOSIN HCL 0.4 MG CAP PO SCH (09:13)
--- NOTE | 2019-09-11 12:42 | PN ---
Progress Note, Physician History of Present Illness: Pt seen and examined at bedside. He is awake and alert. He tolerated HD yesterday. - Current Medication List Current Medications: Active Medications Acetaminophen (Tylenol -) 650 mg PO Q6H PRN PRN Reason: PAIN LEVEL 5-10 Last Admin: 09/10/19 20:37 Dose: 650 mg Amlodipine Besylate (Norvasc -) 10 mg PO DAILY [facility] Last Admin: 09/11/19 09:13 Dose: 10 mg Pantoprazole Sodium 80 mg/ (Sodium Chloride) 100 mls @ 10 mls/hr IVPB Q10H [facility] Last Admin: 09/11/19 02:41 Dose: Not Given Octreotide Acetate 200 mcg/Octreotide Acetate 1,000 mcg/Dextrose 500 mls @ 20.833 mls/hr IVPB ASDIR [facility]; Protocol Last Admin: 09/10/19 20:37 Dose: 20.833 mls/hr Levetiracetam (Keppra -) 500 mg PO BID [facility] Last Admin: 09/11/19 09:13 Dose: 500 mg Tamsulosin HCl (Flomax -) 0.4 mg PO DAILY@0830 [facility] Last Admin: 09/11/19 09:13 Dose: 0.4 mg Thiamine HCl (Vitamin B1 -) 100 mg PO DAILY [facility] Last Admin: 09/11/19 09:12 Dose: 100 mg - Objective Vital Signs: Vital Signs Temperature 97.5 F L 09/11/19 09:07 Pulse Rate 73 09/11/19 09:07 Respiratory Rate 18 09/11/19 09:07 Blood Pressure 146/69 09/11/19 09:07 O2 Sat by Pulse Oximetry (%) 100 09/10/19 22:00 Constitutional: Yes: Calm Eyes: Yes: Conjunctiva Clear HENT: Yes: Atraumatic Neck: Yes: Supple Cardiovascular: Yes: S1, S2 Respiratory: Yes: CTA Bilaterally Gastrointestinal: Yes: Soft, Abdomen, Obese Genitourinary: Yes: WNL Musculoskeletal: Yes: WNL Edema: No Neurological: Yes: Oriented Psychiatric: Yes: Oriented Labs: CBC, BMP 09/11/19 05:25 09/10/19 05:27 INR, PTT INR 1.01 (0.83-1.09) 09/09/19 18:50 Problem List - Problems (1) ESRD (end stage renal disease) Code(s): N18.6 - END STAGE RENAL DISEASE (2) Alcoholic cirrhosis of liver without ascites Code(s): K70.30 - ALCOHOLIC CIRRHOSIS OF LIVER WITHOUT ASCITES (3) Missed dialysis Code(s): [id number] - Assessment/Plan Current Medications Generic Name Dose Route Start Last Admin Trade Name Freq PRN Reason Stop Dose Admin Acetaminophen 650 mg 09/10/19 20:33 09/10/19 20:37 Tylenol - PO 650 mg Q6H PRN Administration PAIN LEVEL 5-10 Amlodipine Besylate 10 mg 09/10/19 10:00 09/11/19 09:13 Norvasc - PO 10 mg DAILY DEV Administration Pantoprazole Sodium 80 mg/ 100 mls @ 10 mls/hr 09/09/19 20:15 09/11/19 02:41 Sodium Chloride IVPB Not Given Q10H DEV 8 MG/HR Octreotide Acetate 200 mcg/ 500 mls @ 20.833 mls/hr 09/09/19 20:15 09/10/19 20:37 Octreotide Acetate 1,000 mcg/ IVPB 20.833 mls/hr Dextrose ASDIR DEV Administration Protocol Levetiracetam 500 mg 09/09/19 22:00 09/11/19 09:13 Keppra - PO 500 mg BID DEV Administration Tamsulosin HCl 0.4 mg 09/10/19 08:30 09/11/19 09:13 Flomax - PO 0.4 mg DAILY@0830 DEV Administration Thiamine HCl 100 mg 09/10/19 10:00 09/11/19 09:12 Vitamin B1 - PO 100 mg DAILY DEV Administration Impression 1. ESRD 2. htn 3. hx etoh abuse 4. liver cirrhosis with tips 5. anemia Plan - pt for endoscopy - HD tomorrow - monitor hg - renal diet once he starts eating - no heparin in HD - monitor bp - 4 :15 180 abf 400 3 k bath
--- NOTE | 2019-09-11 12:52 | PN ---
Progress Note, Physician History of Present Illness: pulmonary alert,comfortable,-resp distress - Current Medication List Current Medications: Active Medications Acetaminophen (Tylenol -) 650 mg PO Q6H PRN PRN Reason: PAIN LEVEL 5-10 Last Admin: 09/10/19 20:37 Dose: 650 mg Amlodipine Besylate (Norvasc -) 10 mg PO DAILY [facility] Last Admin: 09/11/19 09:13 Dose: 10 mg Epoetin Kendall (Epogen -) 10,000 unit IVPUSH ONCE ONE Stop: 09/12/19 12:43 Pantoprazole Sodium 80 mg/ (Sodium Chloride) 100 mls @ 10 mls/hr IVPB Q10H [facility] Last Admin: 09/11/19 02:41 Dose: Not Given Octreotide Acetate 200 mcg/Octreotide Acetate 1,000 mcg/Dextrose 500 mls @ 20.833 mls/hr IVPB ASDIR [facility]; Protocol Last Admin: 09/10/19 20:37 Dose: 20.833 mls/hr Sodium Chloride (Normal Saline -) 250 mls @ 3,000 mls/hr IV PRN PRN PRN Reason: Hypotension during Dialysis Stop: 09/12/19 12:42 Levetiracetam (Keppra -) 500 mg PO BID [facility] Last Admin: 09/11/19 09:13 Dose: 500 mg Tamsulosin HCl (Flomax -) 0.4 mg PO DAILY@0830 [facility] Last Admin: 09/11/19 09:13 Dose: 0.4 mg Thiamine HCl (Vitamin B1 -) 100 mg PO DAILY [facility] Last Admin: 09/11/19 09:12 Dose: 100 mg - Objective Vital Signs: Vital Signs Temperature 97.5 F L 09/11/19 09:07 Pulse Rate 73 09/11/19 09:07 Respiratory Rate 18 09/11/19 09:07 Blood Pressure 146/69 09/11/19 09:07 O2 Sat by Pulse Oximetry (%) 100 09/10/19 22:00 Constitutional: Yes: Well Nourished, Calm Eyes: Yes: WNL HENT: Yes: WNL Neck: Yes: WNL Cardiovascular: Yes: Regular Rate and Rhythm Respiratory: Yes: CTA Bilaterally Gastrointestinal: Yes: Normal Bowel Sounds, Soft Extremities: Yes: WNL Edema: No Labs: CBC, BMP 09/11/19 05:25 09/10/19 05:27 INR, PTT INR 1.01 (0.83-1.09) 09/09/19 18:50 Problem List - Problems (1) Alcoholic cirrhosis of liver without ascites Code(s): K70.30 - ALCOHOLIC CIRRHOSIS OF LIVER WITHOUT ASCITES (2) Anemia Code(s): D64.9 - ANEMIA, UNSPECIFIED (3) ESRD (end stage renal disease) Code(s): N18.6 - END STAGE RENAL DISEASE (4) GI (gastrointestinal bleed) Code(s): K92.2 - GASTROINTESTINAL HEMORRHAGE, UNSPECIFIED (5) History of esophageal varices with bleeding Code(s): Z87.19 - PERSONAL HISTORY OF OTHER DISEASES OF THE DIGESTIVE SYSTEM (6) Missed dialysis Code(s): [id number] - (7) ESRD (end stage renal disease) on dialysis Code(s): N18.6 - END STAGE RENAL DISEASE; Z99.2 - DEPENDENCE ON RENAL DIALYSIS (8) Nicotine dependence Code(s): F17.200 - NICOTINE DEPENDENCE, UNSPECIFIED, UNCOMPLICATED Qualifiers: Nicotine product type: cigarettes Substance use status: uncomplicated Qualified Code(s): F17.210 - Nicotine dependence, cigarettes, uncomplicated Assessment/Plan IMP DYSPNEA improved VOLUME OVERLOAD PT MISSED 5 DIALYSIS SESSIONS ESRD ON HD SYMPTOMATIC ANEMIA H/O ETOH ABUSE CIRRHOSIS ELEVATED AMMONIA LEVEL PLAN HD PER RENAL NORMAL TRANSFUSION THRESHOLD O2 NEEDED MONITOR H+H,AMMONIA LEVEL GI W/U in progress DR HAMILTON Problem List - Problems (1) Alcoholic cirrhosis of liver without ascites Code(s): K70.30 - ALCOHOLIC CIRRHOSIS OF LIVER WITHOUT ASCITES (2) Anemia Code(s): D64.9 - ANEMIA, UNSPECIFIED (3) ESRD (end stage renal disease) Code(s): N18.6 - END STAGE RENAL DISEASE (4) GI (gastrointestinal bleed) Code(s): K92.2 - GASTROINTESTINAL HEMORRHAGE, UNSPECIFIED (5) History of esophageal varices with bleeding Code(s): Z87.19 - PERSONAL HISTORY OF OTHER DISEASES OF THE DIGESTIVE SYSTEM (6) Missed dialysis Code(s): [id number] - (7) ESRD (end stage renal disease) on dialysis Code(s): N18.6 - END STAGE RENAL DISEASE; Z99.2 - DEPENDENCE ON RENAL DIALYSIS (8) Nicotine dependence Code(s): F17.200 - NICOTINE DEPENDENCE, UNSPECIFIED, UNCOMPLICATED Qualifiers: Nicotine product type: cigarettes Substance use status: uncomplicated Qualified Code(s): F17.210 - Nicotine dependence, cigarettes, uncomplicated
--- NOTE | 2019-09-11 14:56 | PN ---
Progress Note (short form) - Note Progress Note: Cardiology testing results (echo, EKG) reviewed prior to endoscopy and discussed with anesthesia team. EGD performed today revealing small area of esophagitis with small superficial ulcer, no stigmata, and gastric erythema, biopsied. No esophageal or gastric varices. No old or new blood seen. -Recommend PPI daily -Follow up pathology results -DC octreotide -Recommend colonoscopy tomorrow as EGD findings not likely to explain source of significant anemia. -Clear liquid diet today -Golytely prep -NPO pMN -Discussed with pt after the procedure
[2019-09-11] MEDS ORDERED: PEG 3350/NA SULF BICARB CL/KCL 4000 ML SOLN.RECON PO ONE (15:15)
[2019-09-11] MEDS ORDERED: BISACODYL 5 MG TABLET.DR (FP) PO ONE (17:00)
--- NOTE | 2019-09-11 18:07 | PN ---
Progress Note, Physician - Current Medication List Current Medications: Active Medications Acetaminophen (Tylenol -) 650 mg PO Q6H PRN PRN Reason: PAIN LEVEL 5-10 Last Admin: 09/10/19 20:37 Dose: 650 mg Amlodipine Besylate (Norvasc -) 10 mg PO DAILY [facility] Last Admin: 09/11/19 09:13 Dose: 10 mg Epoetin Kendall (Procrit -) 10,000 unit IVPUSH ONCE ONE Stop: 09/12/19 12:43 Pantoprazole Sodium 80 mg/ (Sodium Chloride) 100 mls @ 10 mls/hr IVPB Q10H [facility] Last Admin: 09/11/19 17:07 Dose: 10 mls/hr Octreotide Acetate 200 mcg/Octreotide Acetate 1,000 mcg/Dextrose 500 mls @ 20.833 mls/hr IVPB ASDIR [facility]; Protocol Last Admin: 09/10/19 20:37 Dose: 20.833 mls/hr Sodium Chloride (Normal Saline -) 250 mls @ 3,000 mls/hr IV PRN PRN PRN Reason: Hypotension during Dialysis Stop: 09/12/19 12:42 Levetiracetam (Keppra -) 500 mg PO BID [facility] Last Admin: 09/11/19 09:13 Dose: 500 mg Tamsulosin HCl (Flomax -) 0.4 mg PO DAILY@0830 [facility] Last Admin: 09/11/19 09:13 Dose: 0.4 mg Thiamine HCl (Vitamin B1 -) 100 mg PO DAILY [facility] Last Admin: 09/11/19 09:12 Dose: 100 mg - Objective Vital Signs: Vital Signs Temperature 98 F 09/11/19 17:13 Pulse Rate 77 09/11/19 17:13 Respiratory Rate 18 09/11/19 17:13 Blood Pressure 134/64 09/11/19 17:13 O2 Sat by Pulse Oximetry (%) 100 09/11/19 14:44 Constitutional: Yes: No Distress HENT: Yes: Atraumatic Neck: Yes: Supple Cardiovascular: Yes: Regular Rate and Rhythm Respiratory: Yes: CTA Bilaterally Gastrointestinal: Yes: Normal Bowel Sounds Extremities: Yes: WNL Neurological: Yes: Alert, Oriented Labs: CBC, BMP 09/11/19 05:25 09/10/19 05:27 INR, PTT INR 1.01 (0.83-1.09) 09/09/19 18:50 Problem List - Problems (1) GI (gastrointestinal bleed) Assessment/Plan: gi note reviewed fu h/h prbc infusion Code(s): K92.2 - GASTROINTESTINAL HEMORRHAGE, UNSPECIFIED (2) Missed dialysis Assessment/Plan: renal board Code(s): [id number] - (3) CKD (chronic kidney disease) Code(s): N18.9 - CHRONIC KIDNEY DISEASE, UNSPECIFIED (4) ESRD (end stage renal disease) on dialysis Code(s): N18.6 - END STAGE RENAL DISEASE; Z99.2 - DEPENDENCE ON RENAL DIALYSIS
[2019-09-11] MEDS ORDERED: PT OWN MED DRAWER 7, Y5N ONE (18:31)
[2019-09-11 19:09] LABS: HEP B CORE AB, TOT Negative (Negative)
[2019-09-11] MEDS: OCTREOTIDE ACETATE 200 MCG, OCTREOTIDE ACETATE 1,000 MCG in DEXTROSE 5%-WATER - 496 ML IVPB SCH (21:51)
[2019-09-12] MEDS ORDERED: ACETAMINOPHEN 1000 MG/100 ML VIAL (NON FORMULARY) IVPB ONE (01:54)
[2019-09-12] MEDS: PANTOPRAZOLE SODIUM 80 MG in SODIUM CHLORIDE 100 ML IVPB SCH ×2 (08:21→18:15)
[2019-09-12] MEDS ORDERED: SODIUM CHLORIDE 250 ML IV PRN (09:00)
[2019-09-12] MEDS ORDERED: EPOETIN ALFA 10,000 UNIT/1 ML VIAL IVPUSH ONE (09:00)
--- NOTE | 2019-09-12 10:27 | PN ---
Progress Note (short form) - Note Progress Note: Colonoscopy complete. Report placed in procedural section of physical chart and to be scanned into [facility] Problem List - Problems (1) Anemia Code(s): D64.9 - ANEMIA, UNSPECIFIED
[2019-09-12] MEDS: levETIRAcetam 500 MG TABLET (FP) PO SCH ×2 (11:00→22:48)
[2019-09-12 13:09] LABS: HEMATOCRIT 24.5 % (35.4-49); HEMOGLOBIN 8.3 GM/dL (11.7-16.9); MCH 31.3 pg (25.7-33.7); MCHC 33.9 g/dl (32.0-35.9); MEAN CELL VOLUME 92.3 fl (80-96); MEAN PLT VOLUME 7.5 fl (7.5-11.1); PLATELET COUNT 74 K/MM3 (134-434); RBC 2.66 M/mm3 (4.00-5.60); WHITE BLOOD COUNT 2.4 K/mm3 (4.0-10.0)
[2019-09-12 13:30] LABS: BLOOD UREA NITROGEN 35.7 mg/dL (7-18); CALCIUM 7.4 mg/dL (8.5-10.1); POTASSIUM 3.5 mmol/L (3.5-5.1)
--- NOTE | 2019-09-12 13:59 | PN ---
Progress Note, Physician History of Present Illness: Pt seen and examined at bedside. He is awake and alert. He is tolerating HD. He had the colonscopy in the morning. - Current Medication List Current Medications: Active Medications Acetaminophen (Tylenol -) 650 mg PO Q6H PRN PRN Reason: PAIN LEVEL 5-10 Last Admin: 09/10/19 20:37 Dose: 650 mg Amlodipine Besylate (Norvasc -) 10 mg PO DAILY [facility] Last Admin: 09/11/19 09:13 Dose: 10 mg Pantoprazole Sodium 80 mg/ (Sodium Chloride) 100 mls @ 10 mls/hr IVPB Q10H [facility] Last Admin: 09/12/19 08:21 Dose: 10 mls/hr Octreotide Acetate 200 mcg/Octreotide Acetate 1,000 mcg/Dextrose 500 mls @ 20.833 mls/hr IVPB ASDIR [facility]; Protocol Last Admin: 09/11/19 21:51 Dose: Not Given Levetiracetam (Keppra -) 500 mg PO BID [facility] Last Admin: 09/11/19 21:51 Dose: 500 mg Tamsulosin HCl (Flomax -) 0.4 mg PO DAILY@0830 [facility] Last Admin: 09/11/19 09:13 Dose: 0.4 mg Thiamine HCl (Vitamin B1 -) 100 mg PO DAILY [facility] Last Admin: 09/11/19 09:12 Dose: 100 mg - Objective Vital Signs: Vital Signs Temperature 98.9 F 09/12/19 11:40 Pulse Rate 80 09/12/19 13:15 Respiratory Rate 18 09/12/19 13:15 Blood Pressure 156/82 09/12/19 13:15 O2 Sat by Pulse Oximetry (%) 100 09/12/19 10:42 Constitutional: Yes: Calm Eyes: Yes: Conjunctiva Clear HENT: Yes: Atraumatic Neck: Yes: Supple Cardiovascular: Yes: S1, S2 Respiratory: Yes: CTA Bilaterally Gastrointestinal: Yes: Normal Bowel Sounds, Soft Genitourinary: Yes: WNL Musculoskeletal: Yes: WNL Edema: No Neurological: Yes: Oriented Psychiatric: Yes: Oriented Labs: CBC, BMP 09/12/19 11:45 09/12/19 12:20 INR, PTT INR 1.01 (0.83-1.09) 09/09/19 18:50 Problem List - Problems (1) ESRD (end stage renal disease) Code(s): N18.6 - END STAGE RENAL DISEASE (2) Alcoholic cirrhosis of liver without ascites Code(s): K70.30 - ALCOHOLIC CIRRHOSIS OF LIVER WITHOUT ASCITES (3) Missed dialysis Code(s): [id number] - Assessment/Plan Current Medications Generic Name Dose Route Start Last Admin Trade Name Freq PRN Reason Stop Dose Admin Acetaminophen 650 mg 09/10/19 20:33 09/10/19 20:37 Tylenol - PO 650 mg Q6H PRN Administration PAIN LEVEL 5-10 Amlodipine Besylate 10 mg 09/10/19 10:00 09/11/19 09:13 Norvasc - PO 10 mg DAILY DEV Administration Pantoprazole Sodium 80 mg/ 100 mls @ 10 mls/hr 09/09/19 20:15 09/12/19 08:21 Sodium Chloride IVPB 10 mls/hr Q10H DEV Administration 8 MG/HR Octreotide Acetate 200 mcg/ 500 mls @ 20.833 mls/hr 09/09/19 20:15 09/11/19 21:51 Octreotide Acetate 1,000 mcg/ IVPB Not Given Dextrose ASDIR DEV Protocol Levetiracetam 500 mg 09/09/19 22:00 09/11/19 21:51 Keppra - PO 500 mg BID DEV Administration Tamsulosin HCl 0.4 mg 09/10/19 08:30 09/11/19 09:13 Flomax - PO 0.4 mg DAILY@0830 DEV Administration Thiamine HCl 100 mg 09/10/19 10:00 09/11/19 09:12 Vitamin B1 - PO 100 mg DAILY DEV Administration Impression 1. ESRD 2. htn 3. hx etoh abuse 4. liver cirrhosis with tips 5. anemia Plan - HD today - monitor hg - epogen for anemia - discussed compliance with HD - discussed with GI - renal diet - no heparin in HD - monitor bp - 4 :15 180 abf 400 3 k bath
[2019-09-12] MEDS: THIAMINE HCL 100 MG TABLET (FP) PO SCH (16:18)
[2019-09-12] MEDS: amLODIPine BESYLATE 10 MG TABLET (FP) PO SCH (16:20)
[2019-09-12] MEDS: TAMSULOSIN HCL 0.4 MG CAP PO SCH (16:20)
--- NOTE | 2019-09-12 17:27 | PN ---
Progress Note, Physician - Current Medication List Current Medications: Active Medications Acetaminophen (Tylenol -) 650 mg PO Q6H PRN PRN Reason: PAIN LEVEL 5-10 Last Admin: 09/10/19 20:37 Dose: 650 mg Amlodipine Besylate (Norvasc -) 10 mg PO DAILY [facility] Last Admin: 09/12/19 16:20 Dose: 10 mg Pantoprazole Sodium 80 mg/ (Sodium Chloride) 100 mls @ 10 mls/hr IVPB Q10H [facility] Last Admin: 09/12/19 08:21 Dose: 10 mls/hr Octreotide Acetate 200 mcg/Octreotide Acetate 1,000 mcg/Dextrose 500 mls @ 20.833 mls/hr IVPB ASDIR [facility]; Protocol Last Admin: 09/11/19 21:51 Dose: Not Given Levetiracetam (Keppra -) 500 mg PO BID [facility] Last Admin: 09/12/19 11:00 Dose: 500 mg Tamsulosin HCl (Flomax -) 0.4 mg PO DAILY@0830 [facility] Last Admin: 09/12/19 16:20 Dose: 0.4 mg Thiamine HCl (Vitamin B1 -) 100 mg PO DAILY [facility] Last Admin: 09/12/19 16:18 Dose: 100 mg - Objective Vital Signs: Vital Signs Temperature 99.2 F 09/12/19 14:02 Pulse Rate 77 09/12/19 15:35 Respiratory Rate 18 09/12/19 15:35 Blood Pressure 159/90 09/12/19 15:35 O2 Sat by Pulse Oximetry (%) 100 09/12/19 10:42 Constitutional: Yes: No Distress HENT: Yes: Atraumatic Neck: Yes: Supple Cardiovascular: Yes: Regular Rate and Rhythm Respiratory: Yes: CTA Bilaterally Gastrointestinal: Yes: Normal Bowel Sounds Extremities: Yes: WNL Edema: No Peripheral Pulses WNL: Yes Neurological: Yes: Alert, Oriented Labs: CBC, BMP 09/12/19 11:45 09/12/19 12:20 INR, PTT INR 1.01 (0.83-1.09) 09/09/19 18:50 Problem List - Problems (1) GI (gastrointestinal bleed) Assessment/Plan: gi note reviewed reports read Code(s): K92.2 - GASTROINTESTINAL HEMORRHAGE, UNSPECIFIED (2) Missed dialysis Assessment/Plan: renal boardon Hd Code(s): [id number] - (3) CKD (chronic kidney disease) Code(s): N18.9 - CHRONIC KIDNEY DISEASE, UNSPECIFIED (4) ESRD (end stage renal disease) on dialysis Code(s): N18.6 - END STAGE RENAL DISEASE; Z99.2 - DEPENDENCE ON RENAL DIALYSIS (5) Anemia Assessment/Plan: on epogen Code(s): D64.9 - ANEMIA, UNSPECIFIED
[2019-09-12] MEDS ORDERED: IBUPROFEN 600 MG TABLET (FP) PO PRN (17:49)
[2019-09-12] MEDS ORDERED: PT OWN MED DRAWER 7, Y5N ONE ×2 (18:33→22:41)
[2019-09-12] MEDS: OCTREOTIDE ACETATE 200 MCG, OCTREOTIDE ACETATE 1,000 MCG in DEXTROSE 5%-WATER - 496 ML IVPB SCH (22:44)
[2019-09-12] MEDS ORDERED: MELATONIN 5 MG TABLETS PO ONE (22:57)
[2019-09-12] MEDS: ACETAMINOPHEN 1000 MG/100 ML VIAL (NON FORMULARY) IVPB PRN (23:32)
[2019-09-13] MEDS: OCTREOTIDE ACETATE 200 MCG, OCTREOTIDE ACETATE 1,000 MCG in DEXTROSE 5%-WATER - 496 ML IVPB SCH ×2 (03:22→20:26)
[2019-09-13] MEDS: PANTOPRAZOLE SODIUM 80 MG in SODIUM CHLORIDE 100 ML IVPB SCH ×3 (05:45→15:51)
[2019-09-13 06:18] LABS: BASO % 1.1 % (0-2.0); EOS % 2.1 % (0-4.5); HEMATOCRIT 23.6 % (35.4-49); HEMOGLOBIN 8.3 GM/dL (11.7-16.9); LYMPH % 21.7 % (8-40); MCH 32.2 pg (25.7-33.7); MCHC 35.1 g/dl (32.0-35.9); MEAN CELL VOLUME 91.9 fl (80-96); MEAN PLT VOLUME 7.3 fl (7.5-11.1); MONO % 17.3 % (3.8-10.2); NEUT % 57.8 % (42.8-82.8); PLATELET COUNT 73 K/MM3 (134-434); RBC 2.57 M/mm3 (4.00-5.60); RDW 18.9 % (11.9-15.9)
[2019-09-13 06:26] LABS: WHITE BLOOD COUNT 1.6 K/mm3 (4.0-10.0)
[2019-09-13] MEDS: THIAMINE HCL 100 MG TABLET (FP) PO SCH (09:12)
[2019-09-13] MEDS: TAMSULOSIN HCL 0.4 MG CAP PO SCH (09:12)
[2019-09-13] MEDS: levETIRAcetam 500 MG TABLET (FP) PO SCH ×2 (09:12→21:06)
[2019-09-13] MEDS: amLODIPine BESYLATE 10 MG TABLET (FP) PO SCH (09:12)
[2019-09-13] MEDS: ACETAMINOPHEN 1000 MG/100 ML VIAL (NON FORMULARY) IVPB PRN ×2 (10:48→19:45)
[2019-09-13 11:09] LABS: ANISOCYTOSIS 2+; MACROCYTOSIS 0; PLATELET ESTIMATE DECREASED
--- NOTE | 2019-09-13 13:06 | PN ---
Progress Note, Physician History of Present Illness: PULMONARY COMFORTABLE,-SOB - Current Medication List Current Medications: Active Medications Acetaminophen (Ofirmev Injection -) 1,000 mg IVPB Q6H PRN PRN Reason: PAIN LEVEL 1-5 Last Admin: 09/13/19 10:48 Dose: 1,000 mg Amlodipine Besylate (Norvasc -) 10 mg PO DAILY [facility] Last Admin: 09/13/19 09:12 Dose: 10 mg Pantoprazole Sodium 80 mg/ (Sodium Chloride) 100 mls @ 10 mls/hr IVPB Q10H [facility] Last Admin: 09/13/19 06:39 Dose: 10 mls/hr Octreotide Acetate 200 mcg/Octreotide Acetate 1,000 mcg/Dextrose 500 mls @ 20.833 mls/hr IVPB ASDIR [facility]; Protocol Last Admin: 09/13/19 03:22 Dose: 20.833 mls/hr Levetiracetam (Keppra -) 500 mg PO BID [facility] Last Admin: 09/13/19 09:12 Dose: 500 mg Tamsulosin HCl (Flomax -) 0.4 mg PO DAILY@0830 [facility] Last Admin: 09/13/19 09:12 Dose: 0.4 mg Thiamine HCl (Vitamin B1 -) 100 mg PO DAILY [facility] Last Admin: 09/13/19 09:12 Dose: 100 mg - Objective Vital Signs: Vital Signs Temperature 99.7 F H 09/13/19 10:00 Pulse Rate 73 09/13/19 10:00 Respiratory Rate 18 09/13/19 10:00 Blood Pressure 129/67 09/13/19 10:00 O2 Sat by Pulse Oximetry (%) 97 09/13/19 09:00 Constitutional: Yes: Well Nourished, Calm Eyes: Yes: WNL HENT: Yes: WNL Neck: Yes: WNL Cardiovascular: Yes: Regular Rate and Rhythm, S1, S2 Respiratory: Yes: CTA Bilaterally Gastrointestinal: Yes: Normal Bowel Sounds, Soft Extremities: Yes: WNL Edema: No Labs: CBC, BMP 09/13/19 05:35 09/12/19 12:20 INR, PTT INR 1.01 (0.83-1.09) 09/09/19 18:50 Problem List - Problems (1) Alcoholic cirrhosis of liver without ascites Code(s): K70.30 - ALCOHOLIC CIRRHOSIS OF LIVER WITHOUT ASCITES (2) Anemia Code(s): D64.9 - ANEMIA, UNSPECIFIED (3) ESRD (end stage renal disease) Code(s): N18.6 - END STAGE RENAL DISEASE (4) GI (gastrointestinal bleed) Code(s): K92.2 - GASTROINTESTINAL HEMORRHAGE, UNSPECIFIED (5) History of esophageal varices with bleeding Code(s): Z87.19 - PERSONAL HISTORY OF OTHER DISEASES OF THE DIGESTIVE SYSTEM (6) Missed dialysis Code(s): [id number] - (7) ESRD (end stage renal disease) on dialysis Code(s): N18.6 - END STAGE RENAL DISEASE; Z99.2 - DEPENDENCE ON RENAL DIALYSIS (8) Nicotine dependence Code(s): F17.200 - NICOTINE DEPENDENCE, UNSPECIFIED, UNCOMPLICATED Qualifiers: Nicotine product type: cigarettes Substance use status: uncomplicated Qualified Code(s): F17.210 - Nicotine dependence, cigarettes, uncomplicated Assessment/Plan IMP DYSPNEA improved VOLUME OVERLOAD PT MISSED 5 DIALYSIS SESSIONS ESRD ON HD SYMPTOMATIC ANEMIA H/O ETOH ABUSE CIRRHOSIS ELEVATED AMMONIA LEVEL PANCYTOPENIA PLAN HD PER RENAL NORMAL TRANSFUSION THRESHOLD O2 NEEDED MONITOR H+H DR HAMILTON Problem List - Problems (1) Alcoholic cirrhosis of liver without ascites Code(s): K70.30 - ALCOHOLIC CIRRHOSIS OF LIVER WITHOUT ASCITES (2) Anemia Code(s): D64.9 - ANEMIA, UNSPECIFIED (3) ESRD (end stage renal disease) Code(s): N18.6 - END STAGE RENAL DISEASE (4) GI (gastrointestinal bleed) Code(s): K92.2 - GASTROINTESTINAL HEMORRHAGE, UNSPECIFIED (5) History of esophageal varices with bleeding Code(s): Z87.19 - PERSONAL HISTORY OF OTHER DISEASES OF THE DIGESTIVE SYSTEM (6) Missed dialysis Code(s): [id number] - (7) ESRD (end stage renal disease) on dialysis Code(s): N18.6 - END STAGE RENAL DISEASE; Z99.2 - DEPENDENCE ON RENAL DIALYSIS (8) Nicotine dependence Code(s): F17.200 - NICOTINE DEPENDENCE, UNSPECIFIED, UNCOMPLICATED Qualifiers: Nicotine product type: cigarettes Substance use status: uncomplicated Qualified Code(s): F17.210 - Nicotine dependence, cigarettes, uncomplicated
--- NOTE | 2019-09-13 15:30 | PN ---
Progress Note, Physician History of Present Illness: Pt seen and examined at bedside. He is awake and alert. He denies shortness of breath. - Current Medication List Current Medications: Active Medications Acetaminophen (Ofirmev Injection -) 1,000 mg IVPB Q6H PRN PRN Reason: PAIN LEVEL 1-5 Last Admin: 09/13/19 10:48 Dose: 1,000 mg Amlodipine Besylate (Norvasc -) 10 mg PO DAILY [facility] Last Admin: 09/13/19 09:12 Dose: 10 mg Pantoprazole Sodium 80 mg/ (Sodium Chloride) 100 mls @ 10 mls/hr IVPB Q10H [facility] Last Admin: 09/13/19 06:39 Dose: 10 mls/hr Octreotide Acetate 200 mcg/Octreotide Acetate 1,000 mcg/Dextrose 500 mls @ 20.833 mls/hr IVPB ASDIR [facility]; Protocol Last Admin: 09/13/19 03:22 Dose: 20.833 mls/hr Levetiracetam (Keppra -) 500 mg PO BID [facility] Last Admin: 09/13/19 09:12 Dose: 500 mg Tamsulosin HCl (Flomax -) 0.4 mg PO DAILY@0830 [facility] Last Admin: 09/13/19 09:12 Dose: 0.4 mg Thiamine HCl (Vitamin B1 -) 100 mg PO DAILY [facility] Last Admin: 09/13/19 09:12 Dose: 100 mg - Objective Vital Signs: Vital Signs Temperature 99.2 F 09/13/19 14:05 Pulse Rate 85 09/13/19 14:05 Respiratory Rate 18 09/13/19 14:05 Blood Pressure 113/65 09/13/19 14:05 O2 Sat by Pulse Oximetry (%) 97 09/13/19 09:00 Constitutional: Yes: Calm HENT: Yes: Atraumatic Cardiovascular: Yes: S1, S2 Respiratory: Yes: CTA Bilaterally Gastrointestinal: Yes: Soft Genitourinary: Yes: WNL Musculoskeletal: Yes: WNL Neurological: Yes: Oriented Psychiatric: Yes: Oriented Labs: CBC, BMP 09/13/19 05:35 09/12/19 12:20 INR, PTT INR 1.01 (0.83-1.09) 09/09/19 18:50 Problem List - Problems (1) ESRD (end stage renal disease) Code(s): N18.6 - END STAGE RENAL DISEASE (2) Alcoholic cirrhosis of liver without ascites Code(s): K70.30 - ALCOHOLIC CIRRHOSIS OF LIVER WITHOUT ASCITES (3) Missed dialysis Code(s): [id number] - Assessment/Plan Current Medications Generic Name Dose Route Start Last Admin Trade Name Freq PRN Reason Stop Dose Admin Acetaminophen 1,000 mg 09/12/19 22:57 09/13/19 10:48 Ofirmev Injection - IVPB 1,000 mg Q6H PRN Administration PAIN LEVEL 1-5 Amlodipine Besylate 10 mg 09/10/19 10:00 09/13/19 09:12 Norvasc - PO 10 mg DAILY DEV Administration Pantoprazole Sodium 80 mg/ 100 mls @ 10 mls/hr 09/09/19 20:15 09/13/19 06:39 Sodium Chloride IVPB 10 mls/hr Q10H DEV Administration 8 MG/HR Octreotide Acetate 200 mcg/ 500 mls @ 20.833 mls/hr 09/09/19 20:15 09/13/19 03:22 Octreotide Acetate 1,000 mcg/ IVPB 20.833 mls/hr Dextrose ASDIR DEV Administration Protocol Levetiracetam 500 mg 09/09/19 22:00 09/13/19 09:12 Keppra - PO 500 mg BID DEV Administration Tamsulosin HCl 0.4 mg 09/10/19 08:30 09/13/19 09:12 Flomax - PO 0.4 mg DAILY@0830 DEV Administration Thiamine HCl 100 mg 09/10/19 10:00 09/13/19 09:12 Vitamin B1 - PO 100 mg DAILY DEV Administration Impression 1. ESRD 2. htn 3. hx etoh abuse 4. liver cirrhosis with tips 5. anemia 6. pancytopenia with worsening leukopenia Plan - next HD tomorrow - cont epogen - hematology eval - renal diet - pt did not get heparin with hd - monitor bp - 4 :15 180 abf 400 3 k bath
[2019-09-13] MEDS ORDERED: PT OWN MED DRAWER 7, Y5N ONE ×2 (16:54→21:07)
[2019-09-13] MEDS: PANTOPRAZOLE SODIUM 160 MG in SODIUM CHLORIDE 290 ML IVPB SCH (18:28)
--- NOTE | 2019-09-13 19:45 | PN ---
Progress Note, Physician - Current Medication List Current Medications: Active Medications Acetaminophen (Ofirmev Injection -) 1,000 mg IVPB Q6H PRN PRN Reason: PAIN LEVEL 1-5 Last Admin: 09/13/19 10:48 Dose: 1,000 mg Amlodipine Besylate (Norvasc -) 10 mg PO DAILY [facility] Last Admin: 09/13/19 09:12 Dose: 10 mg Epoetin Kendall (Epogen -) 10,000 unit IVPUSH ONCE ONE Stop: 09/14/19 15:31 Pantoprazole Sodium 80 mg/ (Sodium Chloride) 100 mls @ 10 mls/hr IVPB Q10H [facility] Last Admin: 09/13/19 15:51 Dose: Not Given Octreotide Acetate 200 mcg/Octreotide Acetate 1,000 mcg/Dextrose 500 mls @ 20.833 mls/hr IVPB ASDIR [facility]; Protocol Last Admin: 09/13/19 03:22 Dose: 20.833 mls/hr Sodium Chloride (Normal Saline -) 250 mls @ 3,000 mls/hr IV PRN PRN PRN Reason: Hypotension during Dialysis Stop: 09/14/19 15:30 Pantoprazole Sodium 160 mg/ (Sodium Chloride) 290 mls @ 14.5 mls/hr IVPB Q20H [facility] Last Admin: 09/13/19 18:28 Dose: 14.5 mls/hr Levetiracetam (Keppra -) 500 mg PO BID [facility] Last Admin: 09/13/19 09:12 Dose: 500 mg Tamsulosin HCl (Flomax -) 0.4 mg PO DAILY@0830 [facility] Last Admin: 09/13/19 09:12 Dose: 0.4 mg Thiamine HCl (Vitamin B1 -) 100 mg PO DAILY [facility] Last Admin: 09/13/19 09:12 Dose: 100 mg - Objective Vital Signs: Vital Signs Temperature 98.3 F 09/13/19 18:04 Pulse Rate 77 09/13/19 18:04 Respiratory Rate 18 09/13/19 18:04 Blood Pressure 123/76 09/13/19 18:04 O2 Sat by Pulse Oximetry (%) 97 09/13/19 09:00 Constitutional: Yes: No Distress HENT: Yes: Atraumatic Neck: Yes: Supple Cardiovascular: Yes: Regular Rate and Rhythm Respiratory: Yes: CTA Bilaterally Gastrointestinal: Yes: Normal Bowel Sounds Extremities: Yes: WNL Neurological: Yes: Alert, Oriented Labs: CBC, BMP 09/13/19 05:35 09/12/19 12:20 INR, PTT INR 1.01 (0.83-1.09) 09/09/19 18:50 Problem List - Problems (1) GI (gastrointestinal bleed) Assessment/Plan: gi note reviewed reports read Code(s): K92.2 - GASTROINTESTINAL HEMORRHAGE, UNSPECIFIED (2) Missed dialysis Assessment/Plan: renal boardon Hd Code(s): SRI2384 - (3) CKD (chronic kidney disease) Code(s): N18.9 - CHRONIC KIDNEY DISEASE, UNSPECIFIED (4) ESRD (end stage renal disease) on dialysis Code(s): N18.6 - END STAGE RENAL DISEASE; Z99.2 - DEPENDENCE ON RENAL DIALYSIS (5) Anemia Assessment/Plan: on epogen Code(s): D64.9 - ANEMIA, UNSPECIFIED (6) Leukopenia Assessment/Plan: on precaution will get heme involved fu cbc in am Code(s): D72.819 - DECREASED WHITE BLOOD CELL COUNT, UNSPECIFIED
[2019-09-13] MEDS ORDERED: MELATONIN 5 MG TABLETS PO ONE (20:30)
--- NOTE | 2019-09-13 21:05 | CONSULT ---
Consult - text type - Consultation Consultation Note: 49M with ESRD on HD, alcoholic cirrhosis and TIPS on the liver transplant list at [facility] deviated from his alcohol abstinence on 09/05 when he drank " a couple of beers" in a moment of depression. On 09/06 he developed loose black diarrhea and nonbloody vomiting with dypepsia. He does not know the etiology of his kidney failure but his HTN has been malignant enough to causes seizures and bleeding that required [place] hole drainage. He was scheduled to have a repeat EGD and colonoscopy with Dr. Brady De La Torre at [facility] as part of transplant preparation. It was postponed for a cardiac condition that has not yet been investigated. He had multiple transfusion requiring UGI bleeds with repeated rubber band ligations at [facility] that ultimately required the TIPS which was placed at [facility]. He complains of crampy abdominal pain. 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 fall after seizre or hypertensive hemorrhage) Cardio/Vascular: Yes: HTN, Hyperlipdemia, Other (recent cardiac condition postponed EGD and colonoscopy) Gastrointestinal: Yes: GI Bleed (multiple esophageal variceal bleed and banding before TIPS was placed at [facility]), Other (colon polyp removed by Dr De La Torre at [facility] ?) Hepatobiliary: Yes: Cirrhosis (alcoholic cirrhosis), Cholelithiasis Renal/: Yes: Renal Inusuff, Hematuria, Hemodialysis Psych: Yes: Addictions (alcohol, previously cocaine and marijuana), Depression, Other (attempted suicide) Endocrine: Yes: Diabetes Mellitus - Past Surgical History Past Surgical History: Yes: Arthrosocopy (left knee), Colonoscopy, Upper Endoscopy Additional Surgical History: TIPS at [facility]. 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 (year): age 6 Home Medications - Allergies Allergies/Adverse Reactions: Allergies Allergy/AdvReac Type Severity Reaction Status Date / Time shellfish derived Allergy Severe Swelling Verified 09/09/19 16:26 Fish Containing Products Allergy Intermediate Itching Verified 09/09/19 16:26 - Home Medications Home Medications: Ambulatory Orders Multivitamin [One Daily] 1 each PO DAILY #30 tablet 09/27/17 Ferrous Sulfate 325 mg PO DAILY 04/30/18 Amlodipine Besylate [Norvasc -] 10 mg PO DAILY #30 tab 05/08/18 Furosemide [Lasix -] 40 mg PO BID@0600,1400 #60 tablet 05/08/18 Lactulose (Oral Use) [Cephulac -] 20 gm PO BID #1800 ml 05/08/18 Tamsulosin HCl [Flomax -] 0.4 mg PO DAILY@0830 #30 cap.er.24h 05/08/18 Triamcinolone 0.5% Ointment [Aristocort 0.5% Ointment -] 1 applic TP BID #45 g 05/08/18 cloNIDine HCL [Catapres -] 0.1 mg PO BID #60 tablet 05/08/18 hydrOXYzine HCL [Atarax -] 50 mg PO Q6H PRN #360 tablet 05/08/18 Acetaminophen [Tylenol .Regular Strength -] 650 mg PO Q6H PRN tablet 07/08/18 Thiamine HCl [Vitamin B1 -] 100 mg PO DAILY #30 tablet 07/08/18 cloNIDine HCL [Catapres -] 0.1 mg PO BID tablet 07/08/18 oxyCODONE HCL [Roxicodone -] 5 mg PO Q6H PRN #20 tablet MDD 4 07/08/18 traMADol HCL [Ultram -] 50 mg PO Q6H PRN #20 tablet MDD 4 07/08/18 Spironolactone [Aldactone -] 50 mg PO DAILY #30 tablet 07/10/18 levETIRAcetam [Keppra -] 500 mg PO BID 07/09/19 Folic Acid 1 mg PO DAILY #30 tablet 07/10/19 Physical Exam-GI Vital Signs: AFVSS Constitutional: Yes: Anxious Cardiovascular: Yes: Regular Rate and Rhythm Respiratory: Yes: CTA Bilaterally ...Auscultate: Yes: Normoactive Bowel Sounds ...Palpate: Yes: Soft, Other (nontender) Neurological: Yes: Alert, Oriented Labs: CBC, BMP 09/09/19 17:40 09/09/19 17:40 INR, PTT INR 1.01 (0.83-1.09) 09/09/19 18:50 Assessment: 49M with ESRD on HD, alcoholic cirrhosis and TIPS on the liver transplant list at [facility] deviated from his alcohol abstinence on 09/05 when he drank " a couple of beers" in a moment of depression. On 09/06 he developed loose black diarrhea and nonbloody vomiting with dypepsia. He does not know the etiology of his kidney failure but his HTN has been malignant enough to causes seizures and bleeding that required [place] hole drainage. He was scheduled to have a repeat EGD and colonoscopy with Dr. Brady De La Torre at [facility] as part of transplant preparation. It was postponed for a cardiac condition that has not yet been investigated. He had multiple transfusion requiring UGI bleeds with repeated rubber band ligations at [facility] that ultimately required the TIPS which was placed at [facility]. He complains of crampy abdominal pain. also left forearm erythematous pustule over the forearm Pancytopenia --due to cirrhosis worsening leukopenia--r/o infection --? left forearm cellulitis check cultures. check ID consult check B12/folate/iron studies
[2019-09-13] MEDS ORDERED: diphenhydrAMINE HCL 25 MG CAPSULE (FP) PO ONE (22:31)
[2019-09-14] MEDS: PANTOPRAZOLE SODIUM 80 MG in SODIUM CHLORIDE 100 ML IVPB SCH ×2 (04:08→13:17)
[2019-09-14] MEDS ORDERED: SODIUM CHLORIDE 250 ML IV PRN ×2 (07:14→09:06)
[2019-09-14] MEDS: ACETAMINOPHEN 1000 MG/100 ML VIAL (NON FORMULARY) IVPB PRN ×2 (08:11→19:36)
--- NOTE | 2019-09-14 08:29 | PN ---
Progress Note (short form) - Note Progress Note: Renal follow up for ESRD on HD Seen and examined at the bedside Currently getting dialysis BP stable, goal UF is 2.5L c/o of some back pain no sob, cp, abd pain, N/V Vital Signs Temperature 98.9 F 09/14/19 06:55 Pulse Rate 69 09/14/19 07:30 Respiratory Rate 18 09/14/19 07:30 Blood Pressure 145/75 09/14/19 07:30 O2 Sat by Pulse Oximetry (%) 100 09/13/19 21:00 Intake & Output 09/11/19 09/12/19 09/13/19 09/14/19 23:59 23:59 23:59 23:59 Intake Total 650 2145 1442 240 Output Total 2500 300 Balance 650 -355 1442 -60 NAD awake and alert no LE edema CBC, BMP 09/13/19 05:35 09/12/19 12:20 Current Medications Acetaminophen (Ofirmev Injection -) 1,000 mg IVPB Q6H PRN PRN Reason: PAIN LEVEL 1-5 Last Admin: 09/13/19 19:45 Dose: 1,000 mg Amlodipine Besylate (Norvasc -) 10 mg PO DAILY [facility] Last Admin: 09/13/19 09:12 Dose: 10 mg Epoetin Kendall (Procrit -) 10,000 unit IVPUSH POSTDI ONE Stop: 09/14/19 09:01 Pantoprazole Sodium 80 mg/ (Sodium Chloride) 100 mls @ 10 mls/hr IVPB Q10H [facility] Last Admin: 09/14/19 04:08 Dose: Not Given Octreotide Acetate 200 mcg/Octreotide Acetate 1,000 mcg/Dextrose 500 mls @ 20.833 mls/hr IVPB ASDIR [facility]; Protocol Last Admin: 09/13/19 20:26 Dose: 20.833 mls/hr Sodium Chloride (Normal Saline -) 250 mls @ 3,000 mls/hr IV PRN PRN PRN Reason: Hypotension during Dialysis Stop: 09/15/19 07:13 Pantoprazole Sodium 160 mg/ (Sodium Chloride) 290 mls @ 14.5 mls/hr IVPB Q20H [facility] Last Admin: 09/13/19 18:28 Dose: 14.5 mls/hr Levetiracetam (Keppra -) 500 mg PO BID [facility] Last Admin: 09/13/19 21:06 Dose: 500 mg Tamsulosin HCl (Flomax -) 0.4 mg PO DAILY@0830 [facility] Last Admin: 09/13/19 09:12 Dose: 0.4 mg Thiamine HCl (Vitamin B1 -) 100 mg PO DAILY [facility] Last Admin: 09/13/19 09:12 Dose: 100 mg Impression 1. ESRD 2. htn 3. hx etoh abuse 4. liver cirrhosis with tips 5. anemia 6. pancytopenia with worsening leukopenia Plan Tolerating dialysis well. Goal UF is 2.5L ALEXEY to be given with dialysis Heme follow up Irving Celaya DO
[2019-09-14 08:42] LABS: HEMATOCRIT 21.4 % (35.4-49); HEMOGLOBIN 7.6 GM/dL (11.7-16.9); MCH 32.4 pg (25.7-33.7); MCHC 35.6 g/dl (32.0-35.9); MEAN CELL VOLUME 91.2 fl (80-96); MEAN PLT VOLUME 7.7 fl (7.5-11.1); PLATELET COUNT 60 K/MM3 (134-434); RBC 2.34 M/mm3 (4.00-5.60); RDW 18.5 % (11.9-15.9)
[2019-09-14] MEDS ORDERED: EPOETIN ALFA 10,000 UNIT/1 ML VIAL IVPUSH ONE (09:00)
[2019-09-14 09:02] LABS: WHITE BLOOD COUNT 1.6 K/mm3 (4.0-10.0)
[2019-09-14] MEDS ORDERED: EPOETIN ALFA 20,000 UNIT/1 ML VIAL IVPUSH ONE (09:06)
[2019-09-14 09:07] LABS: BLOOD UREA NITROGEN 27.5 mg/dL (7-18); CREATININE 5.3 mg/dL (0.55-1.3); POTASSIUM 3.6 mmol/L (3.5-5.1)
[2019-09-14] MEDS ORDERED: PT OWN MED DRAWER 7, Y5N ONE ×4 (09:12→22:04)
--- NOTE | 2019-09-14 11:21 | CON.ID ---
Consult Consult Specialty:: infectious diseases Referred by:: dr Guthrie Reason for Consultation:: left arm pustule,cellulitis - History of Present Illness Chief Complaint: pain left arm.pustule on the left hand History of Present Illness: 49M with ESRD on HD, alcoholic cirrhosis and TIPS on the liver transplant list at [facility] deviated from his alcohol abstinence on 09/05 when he drank " a couple of beers" in a moment of depression. On 09/06 he developed loose black diarrhea and nonbloody vomiting with dypepsia. He does not know the etiology of his kidney failure but his HTN has been malignant enough to causes seizures and bleeding that required [place] hole drainage. He was scheduled to have a repeat EGD and colonoscopy with Dr. Brady De La Torre at [facility] as part of transplant preparation. It was postponed for a cardiac condition that has not yet been investigated. He had multiple transfusion requiring UGI bleeds with repeated rubber band ligations at [facility] that ultimately required the TIPS which was placed at [facility]. 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 fall after seizre or hypertensive hemorrhage) Cardio/Vascular: Yes: HTN, Hyperlipdemia, Other (recent cardiac condition postponed EGD and colonoscopy) Gastrointestinal: Yes: GI Bleed (multiple esophageal variceal bleed and banding before TIPS was placed at [facility]), Other (colon polyp removed by Dr De La Torre at [facility] ?) Hepatobiliary: Yes: Cirrhosis (alcoholic cirrhosis), Cholelithiasis Renal/: Yes: Renal Inusuff, Hematuria, Hemodialysis Psych: Yes: Addictions (alcohol, previously cocaine and marijuana), Depression, Other (attempted suicide) Endocrine: Yes: Diabetes Mellitus - Past Surgical History Past Surgical History: Yes: Arthrosocopy (left knee), Colonoscopy, Upper Endoscopy Additional Surgical History: TIPS at [facility]. 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 History of Recent Travel: No Home Medications - Allergies Allergies/Adverse Reactions: Allergies Allergy/AdvReac Type Severity Reaction Status Date / Time piperacillin Allergy Severe Swelling Verified 09/11/19 14:07 shellfish derived Allergy Severe Swelling Verified 09/09/19 16:26 latex Allergy Mild Rash Verified 09/11/19 14:07 - Home Medications Home Medications: Ambulatory Orders RX: Multivitamin [One Daily] 1 each PO DAILY #30 tablet 09/27/17 RX: Ferrous Sulfate 325 mg PO DAILY 04/30/18 RX: Amlodipine Besylate [Norvasc -] 10 mg PO DAILY #30 tab 05/08/18 RX: Furosemide [Lasix -] 40 mg PO BID@0600,1400 #60 tablet 05/08/18 RX: Lactulose (Oral Use) [Cephulac -] 20 gm PO BID #1800 ml 05/08/18 RX: Tamsulosin HCl [Flomax -] 0.4 mg PO DAILY@0830 #30 cap.er.24h 05/08/18 RX: Triamcinolone 0.5% Ointment [Aristocort 0.5% Ointment -] 1 applic TP BID # 45 g 05/08/18 RX: cloNIDine HCL [Catapres -] 0.1 mg PO BID #60 tablet 05/08/18 RX: hydrOXYzine HCL [Atarax -] 50 mg PO Q6H PRN #360 tablet 05/08/18 RX: Acetaminophen [Tylenol .Regular Strength -] 650 mg PO Q6H PRN tablet RX: Thiamine HCl [Vitamin B1 -] 100 mg PO DAILY #30 tablet 07/08/18 RX: cloNIDine HCL [Catapres -] 0.1 mg PO BID tablet 07/08/18 RX: oxyCODONE HCL [Roxicodone -] 5 mg PO Q6H PRN #20 tablet MDD 4 07/08/18 RX: traMADol HCL [Ultram -] 50 mg PO Q6H PRN #20 tablet MDD 4 07/08/18 RX: Spironolactone [Aldactone -] 50 mg PO DAILY #30 tablet 07/10/18 RX: levETIRAcetam [Keppra -] 500 mg PO BID 07/09/19 RX: Folic Acid 1 mg PO DAILY #30 tablet 07/10/19 Review of Systems - Review of Systems Constitutional: reports: No Symptoms Eyes: reports: No Symptoms HENT: reports: No Symptoms Neck: reports: No Symptoms Cardiovascular: reports: No Symptoms Respiratory: reports: No Symptoms Gastrointestinal: reports: No Symptoms Genitourinary: reports: No Symptoms Musculoskeletal: reports: Other Integumentary: reports: Change in Color, Erythema, Wound, Other (pustule on the left forearm) Neurological: reports: No Symptoms Endocrine: reports: No Symptoms Hematology/Lymphatic: reports: No Symptoms Psychiatric: reports: No Symptoms Physical Exam Vital Signs: Vital Signs Temperature 98.9 F 09/14/19 06:55 Pulse Rate 72 09/14/19 10:30 Respiratory Rate 18 09/14/19 10:30 Blood Pressure 119/66 09/14/19 10:30 O2 Sat by Pulse Oximetry (%) 99 09/14/19 08:47 Constitutional: Yes: Well Nourished, Calm, Mild Distress HENT: Yes: Atraumatic, Normocephalic Neck: Yes: Supple, Trachea Midline Cardiovascular: Yes: Regular Rate and Rhythm Respiratory: Yes: Regular, CTA Bilaterally Gastrointestinal: Yes: Normal Bowel Sounds, Soft Musculoskeletal: Yes: WNL Extremities: Yes: Erythema (left forearm), Other (pustule with abscess on the left forearm) Neurological: Yes: Alert, Oriented Psychiatric: Yes: Alert, Oriented Labs: CBC, BMP 09/14/19 07:00 09/14/19 07:00 Imaging - Results Chest X-ray: Report Reviewed, Image Reviewed Cat Scan: Report Reviewed, Image Reviewed Assessment/Plan this patient with multiple medical problems will start clinda needs to be drained watch closely rest as per the team
[2019-09-14] MEDS: levETIRAcetam 500 MG TABLET (FP) PO SCH ×2 (11:46→22:05)
[2019-09-14] MEDS: amLODIPine BESYLATE 10 MG TABLET (FP) PO SCH (11:46)
[2019-09-14] MEDS: THIAMINE HCL 100 MG TABLET (FP) PO SCH (11:46)
[2019-09-14] MEDS: TAMSULOSIN HCL 0.4 MG CAP PO SCH (11:46)
[2019-09-14] MEDS: CLINDAMYCIN HCL 300 MG CAPSULE PO SCH ×3 (12:27→23:04)
[2019-09-14] MEDS: PANTOPRAZOLE SODIUM 160 MG in SODIUM CHLORIDE 290 ML IVPB SCH ×2 (13:29→19:36)
[2019-09-14] MEDS: OCTREOTIDE ACETATE 200 MCG, OCTREOTIDE ACETATE 1,000 MCG in DEXTROSE 5%-WATER - 496 ML IVPB SCH (20:55)
[2019-09-14] MEDS: MELATONIN 5 MG TABLETS PO PRN (22:05)
--- NOTE | 2019-09-14 22:24 | PN ---
Progress Note, Physician History of Present Illness: No new complaints - Current Medication List Current Medications: Active Medications Acetaminophen (Ofirmev Injection -) 1,000 mg IVPB Q6H PRN PRN Reason: PAIN LEVEL 1-5 Last Admin: 09/14/19 19:36 Dose: 1,000 mg Amlodipine Besylate (Norvasc -) 10 mg PO DAILY [facility] Last Admin: 09/14/19 11:46 Dose: 10 mg Clindamycin HCl (Cleocin -) 300 mg PO Q6HPO [facility] Last Admin: 09/14/19 17:35 Dose: 300 mg Octreotide Acetate 200 mcg/Octreotide Acetate 1,000 mcg/Dextrose 500 mls @ 20.833 mls/hr IVPB ASDIR [facility]; Protocol Last Admin: 09/14/19 20:55 Dose: Not Given Sodium Chloride (Normal Saline -) 250 mls @ 3,000 mls/hr IV PRN PRN PRN Reason: Hypotension during Dialysis Stop: 09/15/19 07:13 Pantoprazole Sodium 160 mg/ (Sodium Chloride) 290 mls @ 14.5 mls/hr IVPB Q20H [facility] Last Admin: 09/14/19 19:36 Dose: 14.5 mls/hr Sodium Chloride (Normal Saline -) 250 mls @ 3,000 mls/hr IV PRN PRN PRN Reason: Hypotension during Dialysis Stop: 09/15/19 09:06 Levetiracetam (Keppra -) 500 mg PO BID [facility] Last Admin: 09/14/19 22:05 Dose: 500 mg Melatonin (Melatonin) 5 mg PO HS PRN PRN Reason: INSOMNIA Last Admin: 09/14/19 22:05 Dose: 5 mg Tamsulosin HCl (Flomax -) 0.4 mg PO DAILY@0830 [facility] Last Admin: 09/14/19 11:46 Dose: 0.4 mg Thiamine HCl (Vitamin B1 -) 100 mg PO DAILY [facility] Last Admin: 09/14/19 11:46 Dose: 100 mg - Objective Vital Signs: Vital Signs Temperature 98.8 F 09/14/19 18:00 Pulse Rate 71 09/14/19 18:00 Respiratory Rate 20 09/14/19 20:57 Blood Pressure 139/68 09/14/19 18:00 O2 Sat by Pulse Oximetry (%) 99 09/14/19 20:57 Neck: Yes: WNL, Supple Cardiovascular: Yes: WNL, Regular Rate and Rhythm Respiratory: Yes: WNL, Regular, CTA Bilaterally Gastrointestinal: Yes: WNL, Normal Bowel Sounds, Soft Extremities: Yes: WNL Edema: No Labs: CBC, BMP 09/14/19 07:00 09/14/19 07:00 INR, PTT INR 1.01 (0.83-1.09) 09/09/19 18:50 Problem List - Problems (1) GI (gastrointestinal bleed) Assessment/Plan: Cont IC octreotide Cont IV protonix Code(s): K92.2 - GASTROINTESTINAL HEMORRHAGE, UNSPECIFIED (2) Anemia Assessment/Plan: Pancytopenia Monitor labs Due to cirrhosis/ESRD As per heme consult Code(s): D64.9 - ANEMIA, UNSPECIFIED (3) ESRD (end stage renal disease) on dialysis Assessment/Plan: Dialysis as per renal Code(s): N18.6 - END STAGE RENAL DISEASE; Z99.2 - DEPENDENCE ON RENAL DIALYSIS (4) Alcoholic cirrhosis of liver without ascites Code(s): K70.30 - ALCOHOLIC CIRRHOSIS OF LIVER WITHOUT ASCITES
[2019-09-14] MEDS ORDERED: diphenhydrAMINE HCL 25 MG CAPSULE (FP) PO ONE (23:08)
[2019-09-14] MEDS: CLINDAMYCIN HCL 150 MG CAPSULE (FP) PO SCH (23:16)
[2019-09-15] MEDS ORDERED: PT OWN MED DRAWER 7, Y5N ONE ×2 (04:39→13:41)
[2019-09-15] MEDS: OCTREOTIDE ACETATE 200 MCG, OCTREOTIDE ACETATE 1,000 MCG in DEXTROSE 5%-WATER - 496 ML IVPB SCH ×2 (04:47→20:04)
[2019-09-15] MEDS: CLINDAMYCIN HCL 150 MG CAPSULE (FP) PO SCH ×4 (05:02→23:01)
[2019-09-15] MEDS: ACETAMINOPHEN 1000 MG/100 ML VIAL (NON FORMULARY) IVPB PRN ×3 (05:02→19:49)
[2019-09-15 06:19] LABS: BASO % 1.3 % (0-2.0); HEMATOCRIT 21.9 % (35.4-49); HEMOGLOBIN 7.7 GM/dL (11.7-16.9); LYMPH % 30.4 % (8-40); MCH 31.9 pg (25.7-33.7); MCHC 35.1 g/dl (32.0-35.9); MEAN CELL VOLUME 91.1 fl (80-96); MEAN PLT VOLUME 8.1 fl (7.5-11.1); MONO % 15.5 % (3.8-10.2); NEUT % 47.8 % (42.8-82.8); PLATELET COUNT 59 K/MM3 (134-434); RDW 18.3 % (11.9-15.9)
[2019-09-15 06:27] LABS: WHITE BLOOD COUNT 1.8 K/mm3 (4.0-10.0)
[2019-09-15 06:47] LABS: BLOOD UREA NITROGEN 21.9 mg/dL (7-18); CREATININE 4.1 mg/dL (0.55-1.3); POTASSIUM 3.5 mmol/L (3.5-5.1)
[2019-09-15 08:50] LABS: EPI CELLS 0.6 /HPF (0-5/HPF); HYALINE CASTS 1 /lpf (0-8); PH,URINE 8.5 (5.0-8.0); URINE APPEARANCE CLEAR; URINE BACTERIA 1.4 /hpf (NEGATIVE); URINE BILIRUBIN NEGATIVE (NEGATIVE); URINE COLOR YELLOW; URINE GLUCOSE (UA) NEGATIVE (NEGATIVE); URINE KETONE NEGATIVE (NEGATIVE); URINE LEUK ESTERASE NEGATIVE (NEGATIVE); URINE NITRITE NEGATIVE (NEGATIVE); URINE PROTEIN 3+ (NEGATIVE); URINE RBC 1 /hpf (0-4); URINE UROBILINOGEN 0.2 mg/dL (0.2-1.0); URINE WBC 1 /hpf (0-5)
[2019-09-15] MEDS: TAMSULOSIN HCL 0.4 MG CAP PO SCH (09:03)
[2019-09-15] MEDS: amLODIPine BESYLATE 10 MG TABLET (FP) PO SCH (09:04)
[2019-09-15] MEDS: THIAMINE HCL 100 MG TABLET (FP) PO SCH (09:04)
[2019-09-15] MEDS: levETIRAcetam 500 MG TABLET (FP) PO SCH ×2 (09:04→23:01)
--- NOTE | 2019-09-15 11:04 | PN ---
Progress Note, Physician - Current Medication List Current Medications: Active Medications Acetaminophen (Ofirmev Injection -) 1,000 mg IVPB Q6H PRN PRN Reason: PAIN LEVEL 1-5 Last Admin: 09/15/19 05:02 Dose: 1,000 mg Amlodipine Besylate (Norvasc -) 10 mg PO DAILY [facility] Last Admin: 09/15/19 09:04 Dose: 10 mg Clindamycin HCl (Cleocin -) 300 mg PO Q6HPO [facility] Last Admin: 09/15/19 05:02 Dose: 300 mg Octreotide Acetate 200 mcg/Octreotide Acetate 1,000 mcg/Dextrose 500 mls @ 20.833 mls/hr IVPB ASDIR [facility]; Protocol Last Admin: 09/15/19 04:47 Dose: 20.833 mls/hr Pantoprazole Sodium 160 mg/ (Sodium Chloride) 290 mls @ 14.5 mls/hr IVPB Q20H [facility] Last Admin: 09/14/19 19:36 Dose: 14.5 mls/hr Levetiracetam (Keppra -) 500 mg PO BID [facility] Last Admin: 09/15/19 09:04 Dose: 500 mg Melatonin (Melatonin) 5 mg PO HS PRN PRN Reason: INSOMNIA Last Admin: 09/14/19 22:05 Dose: 5 mg Tamsulosin HCl (Flomax -) 0.4 mg PO DAILY@0830 [facility] Last Admin: 09/15/19 09:03 Dose: 0.4 mg Thiamine HCl (Vitamin B1 -) 100 mg PO DAILY [facility] Last Admin: 09/15/19 09:04 Dose: 100 mg - Objective Vital Signs: Vital Signs Temperature 98.8 F 09/15/19 08:46 Pulse Rate 74 09/15/19 08:46 Respiratory Rate 18 09/15/19 08:46 Blood Pressure 128/73 09/15/19 08:46 O2 Sat by Pulse Oximetry (%) 99 09/14/19 20:57 Labs: CBC, BMP 09/15/19 05:10 09/15/19 05:10 INR, PTT INR 1.01 (0.83-1.09) 09/09/19 18:50 Problem List - Problems (1) Alcoholic cirrhosis of liver without ascites Code(s): K70.30 - ALCOHOLIC CIRRHOSIS OF LIVER WITHOUT ASCITES (2) Anemia Code(s): D64.9 - ANEMIA, UNSPECIFIED (3) ESRD (end stage renal disease) Code(s): N18.6 - END STAGE RENAL DISEASE (4) GI (gastrointestinal bleed) Code(s): K92.2 - GASTROINTESTINAL HEMORRHAGE, UNSPECIFIED (5) History of esophageal varices with bleeding Code(s): Z87.19 - PERSONAL HISTORY OF OTHER DISEASES OF THE DIGESTIVE SYSTEM (6) Missed dialysis Code(s): CAL9192 - (7) ESRD (end stage renal disease) on dialysis Code(s): N18.6 - END STAGE RENAL DISEASE; Z99.2 - DEPENDENCE ON RENAL DIALYSIS (8) Nicotine dependence Code(s): F17.200 - NICOTINE DEPENDENCE, UNSPECIFIED, UNCOMPLICATED Qualifiers: Nicotine product type: cigarettes Substance use status: uncomplicated Qualified Code(s): F17.210 - Nicotine dependence, cigarettes, uncomplicated Assessment/Plan IMP DYSPNEA improved VOLUME OVERLOAD PT MISSED 5 DIALYSIS SESSIONS ESRD ON HD SYMPTOMATIC ANEMIA H/O ETOH ABUSE CIRRHOSIS ELEVATED AMMONIA LEVEL PANCYTOPENIA PLAN HD PER RENAL NORMAL TRANSFUSION THRESHOLD O2 NEEDED MONITOR H+H DR HAMILTON Problem List - Problems (1) Alcoholic cirrhosis of liver without ascites Code(s): K70.30 - ALCOHOLIC CIRRHOSIS OF LIVER WITHOUT ASCITES (2) Anemia Code(s): D64.9 - ANEMIA, UNSPECIFIED (3) ESRD (end stage renal disease) Code(s): N18.6 - END STAGE RENAL DISEASE (4) GI (gastrointestinal bleed) Code(s): K92.2 - GASTROINTESTINAL HEMORRHAGE, UNSPECIFIED (5) History of esophageal varices with bleeding Code(s): Z87.19 - PERSONAL HISTORY OF OTHER DISEASES OF THE DIGESTIVE SYSTEM (6) Missed dialysis Code(s): [id number] - (7) ESRD (end stage renal disease) on dialysis Code(s): N18.6 - END STAGE RENAL DISEASE; Z99.2 - DEPENDENCE ON RENAL DIALYSIS (8) Nicotine dependence Code(s): F17.200 - NICOTINE DEPENDENCE, UNSPECIFIED, UNCOMPLICATED Qualifiers: Nicotine product type: cigarettes Substance use status: uncomplicated Qualified Code(s): F17.210 - Nicotine dependence, cigarettes, uncomplicated
--- NOTE | 2019-09-15 11:22 | PN ---
Progress Note, Physician History of Present Illness: stable no new issues - Current Medication List Current Medications: Active Medications Acetaminophen (Ofirmev Injection -) 1,000 mg IVPB Q6H PRN PRN Reason: PAIN LEVEL 1-5 Last Admin: 09/15/19 05:02 Dose: 1,000 mg Amlodipine Besylate (Norvasc -) 10 mg PO DAILY [facility] Last Admin: 09/15/19 09:04 Dose: 10 mg Clindamycin HCl (Cleocin -) 300 mg PO Q6HPO [facility] Last Admin: 09/15/19 05:02 Dose: 300 mg Octreotide Acetate 200 mcg/Octreotide Acetate 1,000 mcg/Dextrose 500 mls @ 20.833 mls/hr IVPB ASDIR [facility]; Protocol Last Admin: 09/15/19 04:47 Dose: 20.833 mls/hr Pantoprazole Sodium 160 mg/ (Sodium Chloride) 290 mls @ 14.5 mls/hr IVPB Q20H [facility] Last Admin: 09/14/19 19:36 Dose: 14.5 mls/hr Levetiracetam (Keppra -) 500 mg PO BID [facility] Last Admin: 09/15/19 09:04 Dose: 500 mg Melatonin (Melatonin) 5 mg PO HS PRN PRN Reason: INSOMNIA Last Admin: 09/14/19 22:05 Dose: 5 mg Tamsulosin HCl (Flomax -) 0.4 mg PO DAILY@0830 [facility] Last Admin: 09/15/19 09:03 Dose: 0.4 mg Thiamine HCl (Vitamin B1 -) 100 mg PO DAILY [facility] Last Admin: 09/15/19 09:04 Dose: 100 mg - Objective Vital Signs: Vital Signs Temperature 98.8 F 09/15/19 08:46 Pulse Rate 74 09/15/19 08:46 Respiratory Rate 18 09/15/19 08:46 Blood Pressure 128/73 09/15/19 08:46 O2 Sat by Pulse Oximetry (%) 99 09/14/19 20:57 Constitutional: Yes: No Distress, Calm Cardiovascular: Yes: S1, S2 Respiratory: Yes: Regular, CTA Bilaterally Gastrointestinal: Yes: Normal Bowel Sounds, Soft Musculoskeletal: Yes: WNL Extremities: Yes: Other (pustule on the arm,surrounding cellulitis) Integumentary: Yes: Erythema, Other (pustule) Neurological: Yes: Alert, Oriented Psychiatric: Yes: Alert, Oriented Labs: CBC, BMP 09/15/19 05:10 09/15/19 05:10 INR, PTT INR 1.01 (0.83-1.09) 09/09/19 18:50 Assessment/Plan this patient with multiple medical problems we will continue clinda warm soaks looks like it is ready to rupture rest as per the team
[2019-09-15 12:52] LABS: PLATELET ESTIMATE DECREASED
[2019-09-15] MEDS: PANTOPRAZOLE SODIUM 160 MG in SODIUM CHLORIDE 290 ML IVPB SCH (13:45)
[2019-09-15] MEDS: diphenhydrAMINE HCL 25 MG CAPSULE (FP) PO PRN ×2 (16:48→19:49)
[2019-09-15] MEDS ORDERED: METOCLOPRAMIDE HCL INJECTION 10 MG/2 ML VIAL IVPUSH ONE (19:21)
--- NOTE | 2019-09-15 21:34 | PN ---
Progress Note, Physician History of Present Illness: Pt complains of back pain - Current Medication List Current Medications: Active Medications Acetaminophen (Ofirmev Injection -) 1,000 mg IVPB Q6H PRN PRN Reason: PAIN LEVEL 1-5 Last Admin: 09/15/19 19:49 Dose: 1,000 mg Amlodipine Besylate (Norvasc -) 10 mg PO DAILY [facility] Last Admin: 09/15/19 09:04 Dose: 10 mg Clindamycin HCl (Cleocin -) 300 mg PO Q6HPO [facility] Last Admin: 09/15/19 17:55 Dose: 300 mg Diphenhydramine HCl (Benadryl -) 25 mg PO Q6H PRN PRN Reason: FOR ITCHING Last Admin: 09/15/19 19:49 Dose: 25 mg Octreotide Acetate 200 mcg/Octreotide Acetate 1,000 mcg/Dextrose 500 mls @ 20.833 mls/hr IVPB ASDIR [facility]; Protocol Last Admin: 09/15/19 20:04 Dose: Not Given Pantoprazole Sodium 160 mg/ (Sodium Chloride) 290 mls @ 14.5 mls/hr IVPB Q20H [facility] Last Admin: 09/15/19 13:45 Dose: 14.5 mls/hr Levetiracetam (Keppra -) 500 mg PO BID [facility] Last Admin: 09/15/19 09:04 Dose: 500 mg Melatonin (Melatonin) 5 mg PO HS PRN PRN Reason: INSOMNIA Last Admin: 09/14/19 22:05 Dose: 5 mg Tamsulosin HCl (Flomax -) 0.4 mg PO DAILY@0830 [facility] Last Admin: 09/15/19 09:03 Dose: 0.4 mg Thiamine HCl (Vitamin B1 -) 100 mg PO DAILY [facility] Last Admin: 09/15/19 09:04 Dose: 100 mg - Objective Vital Signs: Vital Signs Temperature 98.2 F 09/15/19 18:00 Pulse Rate 72 09/15/19 18:00 Respiratory Rate 18 09/15/19 18:00 Blood Pressure 136/72 09/15/19 18:00 O2 Sat by Pulse Oximetry (%) 99 09/15/19 10:00 Neck: Yes: WNL, Supple Cardiovascular: Yes: WNL, Regular Rate and Rhythm Respiratory: Yes: WNL, Regular, CTA Bilaterally Gastrointestinal: Yes: WNL, Normal Bowel Sounds, Soft Labs: CBC, BMP 09/15/19 05:10 09/15/19 05:10 INR, PTT INR 1.01 (0.83-1.09) 09/09/19 18:50 Problem List - Problems (1) Back pain Assessment/Plan: Check XRAY of cervical and lumbar spine Code(s): M54.9 - DORSALGIA, UNSPECIFIED (2) GI (gastrointestinal bleed) Assessment/Plan: Cont IC octreotide Cont IV protonix Code(s): K92.2 - GASTROINTESTINAL HEMORRHAGE, UNSPECIFIED (3) Anemia Assessment/Plan: Pancytopenia Monitor labs Due to cirrhosis/ESRD As per heme consult Code(s): D64.9 - ANEMIA, UNSPECIFIED (4) ESRD (end stage renal disease) on dialysis Assessment/Plan: Dialysis as per renal Code(s): N18.6 - END STAGE RENAL DISEASE; Z99.2 - DEPENDENCE ON RENAL DIALYSIS (5) Alcoholic cirrhosis of liver without ascites Code(s): K70.30 - ALCOHOLIC CIRRHOSIS OF LIVER WITHOUT ASCITES
[2019-09-15] MEDS: MELATONIN 5 MG TABLETS PO PRN (23:01)
[2019-09-16] MEDS: ACETAMINOPHEN 1000 MG/100 ML VIAL (NON FORMULARY) IVPB PRN ×3 (02:49→18:26)
[2019-09-16] MEDS: PANTOPRAZOLE SODIUM 160 MG in SODIUM CHLORIDE 290 ML IVPB SCH (05:00)
[2019-09-16] MEDS: diphenhydrAMINE HCL 25 MG CAPSULE (FP) PO PRN ×2 (06:09→12:52)
[2019-09-16] MEDS: CLINDAMYCIN HCL 150 MG CAPSULE (FP) PO SCH ×3 (06:09→17:49)
[2019-09-16 06:29] LABS: BASO % 1.2 % (0-2.0); EOS % 3.7 % (0-4.5); HEMATOCRIT 20.9 % (35.4-49); HEMOGLOBIN 7.3 GM/dL (11.7-16.9); LYMPH % 22.8 % (8-40); MCHC 34.7 g/dl (32.0-35.9); MEAN CELL VOLUME 92.2 fl (80-96); MEAN PLT VOLUME 8.6 fl (7.5-11.1); NEUT % 61.3 % (42.8-82.8); PLATELET COUNT 57 K/MM3 (134-434); RBC 2.27 M/mm3 (4.00-5.60); RDW 17.8 % (11.9-15.9)
[2019-09-16 07:08] LABS: ALBUMIN 2.3 g/dl (3.4-5.0); BILIRUBIN,TOTAL 0.6 mg/dL (0.2-1); POTASSIUM 3.6 mmol/L (3.5-5.1); TOT PROT 4.9 g/dl (6.4-8.2)
[2019-09-16 07:20] LABS: CALCIUM 6.9 mg/dL (8.5-10.1)
[2019-09-16] MEDS ORDERED: PT OWN MED DRAWER 7, Y5N ONE (09:42)
[2019-09-16] MEDS: amLODIPine BESYLATE 10 MG TABLET (FP) PO SCH (09:46)
[2019-09-16] MEDS: TAMSULOSIN HCL 0.4 MG CAP PO SCH (09:46)
[2019-09-16] MEDS: levETIRAcetam 500 MG TABLET (FP) PO SCH ×2 (09:46→22:25)
[2019-09-16] MEDS: THIAMINE HCL 100 MG TABLET (FP) PO SCH (09:47)
[2019-09-16] MEDS ORDERED: SODIUM CHLORIDE 250 ML IV PRN (09:49)
--- NOTE | 2019-09-16 09:49 | PN ---
Progress Note, Physician History of Present Illness: Pt seen and examined at bedside. He is awake and alert. He denies shortness of breath. - Current Medication List Current Medications: Active Medications Acetaminophen (Ofirmev Injection -) 1,000 mg IVPB Q6H PRN PRN Reason: PAIN LEVEL 1-5 Last Admin: 09/16/19 02:49 Dose: 1,000 mg Amlodipine Besylate (Norvasc -) 10 mg PO DAILY [facility] Last Admin: 09/15/19 09:04 Dose: 10 mg Clindamycin HCl (Cleocin -) 300 mg PO Q6HPO [facility] 234 BEDS AT [facility] Last Admin: 09/16/19 06:09 Dose: 300 mg Diphenhydramine HCl (Benadryl -) 25 mg PO Q6H PRN PRN Reason: FOR ITCHING Last Admin: 09/16/19 06:09 Dose: 25 mg Octreotide Acetate 200 mcg/Octreotide Acetate 1,000 mcg/Dextrose 500 mls @ 20.833 mls/hr IVPB ASDIR [facility] 234 BEDS AT [facility]; Protocol Last Admin: 09/15/19 20:04 Dose: Not Given Pantoprazole Sodium 160 mg/ (Sodium Chloride) 290 mls @ 14.5 mls/hr IVPB Q20H [facility] 234 BEDS AT [facility] Last Admin: 09/16/19 05:00 Dose: Not Given Levetiracetam (Keppra -) 500 mg PO BID [facility] 234 BEDS AT [facility] Last Admin: 09/15/19 23:01 Dose: 500 mg Melatonin (Melatonin) 5 mg PO HS PRN PRN Reason: INSOMNIA Last Admin: 09/15/19 23:01 Dose: 5 mg Tamsulosin HCl (Flomax -) 0.4 mg PO DAILY@0830 [facility] 234 BEDS AT [facility] Last Admin: 09/15/19 09:03 Dose: 0.4 mg Thiamine HCl (Vitamin B1 -) 100 mg PO DAILY [facility] 234 BEDS AT [facility] Last Admin: 09/15/19 09:04 Dose: 100 mg - Objective Vital Signs: Vital Signs Temperature 98.2 F 09/16/19 06:00 Pulse Rate 65 09/16/19 06:00 Respiratory Rate 20 09/16/19 06:00 Blood Pressure 129/71 09/16/19 06:00 O2 Sat by Pulse Oximetry (%) 99 09/15/19 21:00 Constitutional: Yes: Calm Eyes: Yes: Conjunctiva Clear HENT: Yes: Atraumatic Neck: Yes: Supple Cardiovascular: Yes: S1, S2 Respiratory: Yes: CTA Bilaterally Gastrointestinal: Yes: Normal Bowel Sounds, Soft Genitourinary: Yes: WNL Musculoskeletal: Yes: WNL Edema: No Integumentary: Yes: Other (left arm cellulitis) Neurological: Yes: Oriented Labs: CBC, BMP 09/16/19 06:00 09/16/19 06:00 INR, PTT INR 1.01 (0.83-1.09) 09/09/19 18:50 Problem List - Problems (1) ESRD (end stage renal disease) Code(s): N18.6 - END STAGE RENAL DISEASE (2) Alcoholic cirrhosis of liver without ascites Code(s): K70.30 - ALCOHOLIC CIRRHOSIS OF LIVER WITHOUT ASCITES (3) Missed dialysis Code(s): [id number] - Assessment/Plan Current Medications Generic Name Dose Route Start Last Admin Trade Name Freq PRN Reason Stop Dose Admin Acetaminophen 1,000 mg 09/14/19 19:19 09/16/19 02:49 Ofirmev Injection - IVPB 1,000 mg Q6H PRN Administration PAIN LEVEL 1-5 Amlodipine Besylate 10 mg 09/10/19 10:00 09/15/19 09:04 Norvasc - PO 10 mg DAILY DEV Administration Clindamycin HCl 300 mg 09/15/19 00:00 09/16/19 06:09 Cleocin - PO 300 mg Q6HPO DEV Administration Diphenhydramine HCl 25 mg 09/15/19 16:39 09/16/19 06:09 Benadryl - PO 25 mg Q6H PRN Administration FOR ITCHING Octreotide Acetate 200 mcg/ 500 mls @ 20.833 mls/hr 09/09/19 20:15 09/15/19 20:04 Octreotide Acetate 1,000 mcg/ IVPB Not Given Dextrose ASDIR DEV Protocol Pantoprazole Sodium 160 mg/ 290 mls @ 14.5 mls/hr 09/13/19 16:00 09/16/19 05: 00 Sodium Chloride IVPB Not Given Q20H DEV Levetiracetam 500 mg 09/09/19 22:00 09/15/19 23:01 Keppra - PO 500 mg BID DEV Administration Melatonin 5 mg 09/14/19 19:32 09/15/19 23:01 Melatonin PO 5 mg HS PRN Administration INSOMNIA Tamsulosin HCl 0.4 mg 09/10/19 08:30 09/15/19 09:03 Flomax - PO 0.4 mg DAILY@0830 DEV Administration Thiamine HCl 100 mg 09/10/19 10:00 09/15/19 09:04 Vitamin B1 - PO 100 mg DAILY DEV Administration Impression 1. ESRD 2. htn 3. hx etoh abuse 4. liver cirrhosis with tips 5. anemia 6. pancytopenia with worsening leukopenia Plan - HD tomorrow - monitor hg - epogen for anemia - hematology input appreciated - monitor platelets - abx for cellulitis - pt not on heparin with HD - 4 :15 180 abf 400 3 k bath
--- NOTE | 2019-09-16 14:19 | PN ---
Progress Note, Physician - Current Medication List Current Medications: Active Medications Acetaminophen (Ofirmev Injection -) 1,000 mg IVPB Q6H PRN PRN Reason: PAIN LEVEL 1-5 Last Admin: 09/16/19 09:47 Dose: 1,000 mg Amlodipine Besylate (Norvasc -) 10 mg PO DAILY [facility] Last Admin: 09/16/19 09:46 Dose: 10 mg Clindamycin HCl (Cleocin -) 300 mg PO Q6HPO [facility] Last Admin: 09/16/19 12:52 Dose: 300 mg Diphenhydramine HCl (Benadryl -) 25 mg PO Q6H PRN PRN Reason: FOR ITCHING Last Admin: 09/16/19 12:52 Dose: 25 mg Epoetin Kendall (Epogen -) 12,000 unit IVPUSH ONCE ONE Stop: 09/17/19 09:50 Octreotide Acetate 200 mcg/Octreotide Acetate 1,000 mcg/Dextrose 500 mls @ 20.833 mls/hr IVPB ASDIR [facility]; Protocol Last Admin: 09/15/19 20:04 Dose: Not Given Pantoprazole Sodium 160 mg/ (Sodium Chloride) 290 mls @ 14.5 mls/hr IVPB Q20H [facility] Last Admin: 09/16/19 05:00 Dose: Not Given Sodium Chloride (Normal Saline -) 250 mls @ 3,000 mls/hr IV PRN PRN PRN Reason: Hypotension during Dialysis Stop: 09/17/19 09:49 Levetiracetam (Keppra -) 500 mg PO BID [facility] Last Admin: 09/16/19 09:46 Dose: 500 mg Melatonin (Melatonin) 5 mg PO HS PRN PRN Reason: INSOMNIA Last Admin: 09/15/19 23:01 Dose: 5 mg Tamsulosin HCl (Flomax -) 0.4 mg PO DAILY@0830 [facility] Last Admin: 09/16/19 09:46 Dose: 0.4 mg Thiamine HCl (Vitamin B1 -) 100 mg PO DAILY [facility] Last Admin: 09/16/19 09:47 Dose: 100 mg - Objective Vital Signs: Vital Signs Temperature 98.2 F 09/16/19 06:00 Pulse Rate 65 09/16/19 06:00 Respiratory Rate 18 09/16/19 09:00 Blood Pressure 129/71 09/16/19 06:00 O2 Sat by Pulse Oximetry (%) 99 09/16/19 09:00 Labs: CBC, BMP 09/16/19 06:00 09/16/19 06:00 INR, PTT INR 1.01 (0.83-1.09) 09/09/19 18:50
[2019-09-16] MEDS ORDERED: ONDANSETRON 4 MG/2 ML VIAL IVPUSH PRN (15:26)
--- NOTE | 2019-09-16 15:26 | PN ---
Progress Note (short form) - Note Progress Note: PULMONARY Denies shortness of breath, cough or wheezing. c/o nausea and generalized itchiness. Vital Signs Period Temp Pulse Resp BP Sys/Horton Pulse Ox Last 24 Hr 97.9 F-98.2 F 65-72 18-20 129-154/63-75 99-99 Gen: NAD at rest Heart: RRR Lung: decreased breath sounds at the bases Abd: soft, nontender Ext: no edema CBC, BMP 09/16/19 06:00 09/16/19 06:00 Active Medications Acetaminophen (Ofirmev Injection -) 1,000 mg IVPB Q6H PRN PRN Reason: PAIN LEVEL 1-5 Last Admin: 09/16/19 09:47 Dose: 1,000 mg Amlodipine Besylate (Norvasc -) 10 mg PO DAILY [facility] Last Admin: 09/16/19 09:46 Dose: 10 mg Clindamycin HCl (Cleocin -) 300 mg PO Q6HPO [facility] Last Admin: 09/16/19 12:52 Dose: 300 mg Diphenhydramine HCl (Benadryl -) 25 mg PO Q6H PRN PRN Reason: FOR ITCHING Last Admin: 09/16/19 12:52 Dose: 25 mg Epoetin Kendall (Epogen -) 12,000 unit IVPUSH ONCE ONE Stop: 09/17/19 09:50 Octreotide Acetate 200 mcg/Octreotide Acetate 1,000 mcg/Dextrose 500 mls @ 20.833 mls/hr IVPB ASDIR [facility]; Protocol Last Admin: 09/15/19 20:04 Dose: Not Given Pantoprazole Sodium 160 mg/ (Sodium Chloride) 290 mls @ 14.5 mls/hr IVPB Q20H [facility] Last Admin: 09/16/19 05:00 Dose: Not Given Sodium Chloride (Normal Saline -) 250 mls @ 3,000 mls/hr IV PRN PRN PRN Reason: Hypotension during Dialysis Stop: 09/17/19 09:49 Levetiracetam (Keppra -) 500 mg PO BID [facility] Last Admin: 09/16/19 09:46 Dose: 500 mg Melatonin (Melatonin) 5 mg PO HS PRN PRN Reason: INSOMNIA Last Admin: 09/15/19 23:01 Dose: 5 mg Tamsulosin HCl (Flomax -) 0.4 mg PO DAILY@0830 [facility] Last Admin: 09/16/19 09:46 Dose: 0.4 mg Thiamine HCl (Vitamin B1 -) 100 mg PO DAILY [facility] Last Admin: 09/16/19 09:47 Dose: 100 mg A/P ESRD on HD Pancytopenia Cellulitis Liver Cirrhosis Anemia - HD per renal - monitor CBC - antiemetics - DVT prophylaxis
--- NOTE | 2019-09-16 17:34 | PATH ---
Surgical Pathology Report Patient Name: ROBINSON YOON [facility]. Rec. #: [id number] /Age/Gender: 1970 (Age: 49) / M Account: [id number] Location: 4 SO PEDS/ADOL Taken: 09/12/2019 Received: 09/12/2019 Reported: 09/18/2019 Physicians: Litzy Mccray M.D. Specimen(s) Received A: TRANSVERSE COLON POLYP B: EDSCENDING COLON POLYP C: RECTUM Clinical History Anemia, GI bleed Postoperative diagnosis: diverticulosis, colon polyps, hemorrhoids Final Diagnosis AMENDED REPORT: A. TRANSVERSE COLON POLYP, POLYPECTOMY: TUBULAR ADENOMA. B. DESCENDING COLON POLYP, POLYPECTOMY: HYPERPLASTIC POLYP. C. RECTUM, BIOPSY: COLONIC MUCOSA WITH FOCAL RECENT HEMORRHAGE AND REACTIVE LYMPHOID AGGREGATE IN THE LAMINA PROPRIA. Electronically Signed Teresita Roberson M.D. Amendments Amended: 09/18/2019 Previous Signout Date: 09/16/2019 Comment: Reason for amended report: This original report has been amended to separate stomach biopsy result and update procedure date.The diagnosis remains the same. See separate report [id number]. Gross Description A. Received in formalin, labeled "transverse colon polyp" is a urban, irregular portion of soft tissue measuring 0.2 cm. in greatest dimension. The specimen is submitted in toto in one cassette. B. Received in formalin, labeled "descending colon polyp" is a urban, irregular portion of soft tissue measuring 0.6 cm. in greatest dimension. The specimen is submitted in toto in one cassette. C. Received in formalin, labeled "rectum biopsy" are 2 urban, irregular portions of soft tissue averaging 0.4 cm. in greatest dimension. The specimens are submitted in toto in one cassette. DL/09/12/2019 saudi09/12/2019
--- NOTE | 2019-09-16 19:34 | PN ---
Progress Note, Physician - Current Medication List Current Medications: Active Medications Acetaminophen (Ofirmev Injection -) 1,000 mg IVPB Q6H PRN PRN Reason: PAIN LEVEL 1-5 Last Admin: 09/16/19 18:26 Dose: 1,000 mg Amlodipine Besylate (Norvasc -) 10 mg PO DAILY [facility] Last Admin: 09/16/19 09:46 Dose: 10 mg Clindamycin HCl (Cleocin -) 300 mg PO Q6HPO [facility] Last Admin: 09/16/19 17:49 Dose: 300 mg Diphenhydramine HCl (Benadryl Injection -) 50 mg IVPB Q6H PRN PRN Reason: itchiness Last Admin: 09/16/19 18:27 Dose: 50 mg Epoetin Kendall (Epogen -) 12,000 unit IVPUSH ONCE ONE Stop: 09/17/19 09:50 Octreotide Acetate 200 mcg/Octreotide Acetate 1,000 mcg/Dextrose 500 mls @ 20.833 mls/hr IVPB ASDIR [facility]; Protocol Last Admin: 09/15/19 20:04 Dose: Not Given Pantoprazole Sodium 160 mg/ (Sodium Chloride) 290 mls @ 14.5 mls/hr IVPB Q20H [facility] Last Admin: 09/16/19 05:00 Dose: Not Given Sodium Chloride (Normal Saline -) 250 mls @ 3,000 mls/hr IV PRN PRN PRN Reason: Hypotension during Dialysis Stop: 09/17/19 09:49 Levetiracetam (Keppra -) 500 mg PO BID [facility] Last Admin: 09/16/19 09:46 Dose: 500 mg Melatonin (Melatonin) 5 mg PO HS PRN PRN Reason: INSOMNIA Last Admin: 09/15/19 23:01 Dose: 5 mg Ondansetron HCl (Zofran Injection) 4 mg IVPUSH Q6H PRN PRN Reason: NAUSEA AND/OR VOMITING Last Admin: 09/16/19 16:05 Dose: 4 mg Tamsulosin HCl (Flomax -) 0.4 mg PO DAILY@0830 [facility] Last Admin: 09/16/19 09:46 Dose: 0.4 mg Thiamine HCl (Vitamin B1 -) 100 mg PO DAILY [facility] Last Admin: 09/16/19 09:47 Dose: 100 mg - Objective Vital Signs: Vital Signs Temperature 97.9 F 09/16/19 14:31 Pulse Rate 71 09/16/19 14:31 Respiratory Rate 18 09/16/19 14:31 Blood Pressure 129/75 09/16/19 14:31 O2 Sat by Pulse Oximetry (%) 99 09/16/19 09:00 Constitutional: Yes: No Distress HENT: Yes: Atraumatic Neck: Yes: Supple Cardiovascular: Yes: Regular Rate and Rhythm Respiratory: Yes: CTA Bilaterally Gastrointestinal: Yes: Normal Bowel Sounds Extremities: Yes: WNL Edema: No Peripheral Pulses WNL: Yes Neurological: Yes: Alert, Oriented Labs: CBC, BMP 09/16/19 06:00 09/16/19 06:00 INR, PTT INR 1.01 (0.83-1.09) 09/09/19 18:50 Problem List - Problems (1) GI (gastrointestinal bleed) Assessment/Plan: low h/h prbc transfusion tomorrow during HD Code(s): K92.2 - GASTROINTESTINAL HEMORRHAGE, UNSPECIFIED (2) Missed dialysis Assessment/Plan: renal board on Hd Code(s): [id number] - (3) CKD (chronic kidney disease) Code(s): N18.9 - CHRONIC KIDNEY DISEASE, UNSPECIFIED (4) ESRD (end stage renal disease) on dialysis Code(s): N18.6 - END STAGE RENAL DISEASE; Z99.2 - DEPENDENCE ON RENAL DIALYSIS (5) Pancytopenia Assessment/Plan: monitor alcohol related on abx per id heme on board Code(s): D61.818 - OTHER PANCYTOPENIA
[2019-09-16] MEDS: MELATONIN 5 MG TABLETS PO PRN (22:25)
[2019-09-17] MEDS: CLINDAMYCIN HCL 150 MG CAPSULE (FP) PO SCH ×5 (00:11→23:16)
[2019-09-17] MEDS: ACETAMINOPHEN 1000 MG/100 ML VIAL (NON FORMULARY) IVPB PRN ×3 (01:12→21:12)
[2019-09-17] MEDS: OCTREOTIDE ACETATE 200 MCG, OCTREOTIDE ACETATE 1,000 MCG in DEXTROSE 5%-WATER - 496 ML IVPB SCH (01:14)
[2019-09-17] MEDS: PANTOPRAZOLE SODIUM 160 MG in SODIUM CHLORIDE 290 ML IVPB SCH (01:14)
[2019-09-17] MEDS ORDERED: EPOETIN ALFA 10,000 UNIT, EPOETIN ALFA 2,000 UNIT IVPUSH ONE (07:30)
[2019-09-17 08:37] LABS: HEMATOCRIT 20.6 % (35.4-49); HEMOGLOBIN 7.1 GM/dL (11.7-16.9); MCH 31.3 pg (25.7-33.7); MCHC 34.4 g/dl (32.0-35.9); MEAN CELL VOLUME 91.1 fl (80-96); MEAN PLT VOLUME 8.6 fl (7.5-11.1); PLATELET COUNT 58 K/MM3 (134-434); RBC 2.26 M/mm3 (4.00-5.60); RDW 18.1 % (11.9-15.9); WHITE BLOOD COUNT 2.1 K/mm3 (4.0-10.0)
[2019-09-17 09:04] LABS: BLOOD UREA NITROGEN 37.8 mg/dL (7-18); CALCIUM 7.4 mg/dL (8.5-10.1); CREATININE 5.7 mg/dL (0.55-1.3); POTASSIUM 3.5 mmol/L (3.5-5.1)
[2019-09-17] MEDS ORDERED: EPOETIN ALFA 2,000 UNIT/1 ML VIAL IVPUSH ONE (09:49)
--- NOTE | 2019-09-17 10:16 | PN ---
Progress Note, Physician History of Present Illness: Pt seen and examined at bedside. He is awake and alert. He is tolerating HD. - Current Medication List Current Medications: Active Medications Acetaminophen (Ofirmev Injection -) 1,000 mg IVPB Q6H PRN PRN Reason: PAIN LEVEL 1-5 Last Admin: 09/17/19 08:05 Dose: 1,000 mg Amlodipine Besylate (Norvasc -) 10 mg PO DAILY [facility] Last Admin: 09/16/19 09:46 Dose: 10 mg Clindamycin HCl (Cleocin -) 300 mg PO Q6HPO [facility] Last Admin: 09/17/19 05:41 Dose: 300 mg Diphenhydramine HCl (Benadryl Injection -) 50 mg IVPB Q6H PRN PRN Reason: itchiness Last Admin: 09/17/19 01:12 Dose: 50 mg Octreotide Acetate 200 mcg/Octreotide Acetate 1,000 mcg/Dextrose 500 mls @ 20.833 mls/hr IVPB ASDIR [facility]; Protocol Last Admin: 09/17/19 01:14 Dose: Not Given Pantoprazole Sodium 160 mg/ (Sodium Chloride) 290 mls @ 14.5 mls/hr IVPB Q20H [facility] Last Admin: 09/17/19 01:14 Dose: Not Given Levetiracetam (Keppra -) 500 mg PO BID [facility] Last Admin: 09/16/19 22:25 Dose: 500 mg Melatonin (Melatonin) 5 mg PO HS PRN PRN Reason: INSOMNIA Last Admin: 09/16/19 22:25 Dose: 5 mg Ondansetron HCl (Zofran Injection) 4 mg IVPUSH Q6H PRN PRN Reason: NAUSEA AND/OR VOMITING Last Admin: 09/16/19 16:05 Dose: 4 mg Tamsulosin HCl (Flomax -) 0.4 mg PO DAILY@0830 [facility] Last Admin: 09/16/19 09:46 Dose: 0.4 mg Thiamine HCl (Vitamin B1 -) 100 mg PO DAILY [facility] Last Admin: 09/16/19 09:47 Dose: 100 mg - Objective Vital Signs: Vital Signs Temperature 98.3 F 09/16/19 21:00 Pulse Rate 72 09/17/19 07:10 Respiratory Rate 18 09/17/19 07:10 Blood Pressure 135/75 09/17/19 07:10 O2 Sat by Pulse Oximetry (%) 95 09/16/19 21:00 Constitutional: Yes: Calm Eyes: Yes: Conjunctiva Clear HENT: Yes: Atraumatic Neck: Yes: Supple Cardiovascular: Yes: S1, S2 Respiratory: Yes: CTA Bilaterally Gastrointestinal: Yes: Soft Genitourinary: Yes: WNL Musculoskeletal: Yes: WNL Edema: No Neurological: Yes: Oriented Psychiatric: Yes: Oriented Labs: CBC, BMP 09/17/19 07:10 09/17/19 07:10 INR, PTT INR 1.01 (0.83-1.09) 09/09/19 18:50 Problem List - Problems (1) ESRD (end stage renal disease) Code(s): N18.6 - END STAGE RENAL DISEASE (2) Alcoholic cirrhosis of liver without ascites Code(s): K70.30 - ALCOHOLIC CIRRHOSIS OF LIVER WITHOUT ASCITES (3) Missed dialysis Code(s): DOT6015 - Assessment/Plan Current Medications Generic Name Dose Route Start Last Admin Trade Name Freq PRN Reason Stop Dose Admin Acetaminophen 1,000 mg 09/14/19 19:19 09/17/19 08:05 Ofirmev Injection - IVPB 1,000 mg Q6H PRN Administration PAIN LEVEL 1-5 Amlodipine Besylate 10 mg 09/10/19 10:00 09/16/19 09:46 Norvasc - PO 10 mg DAILY DEV Administration Clindamycin HCl 300 mg 09/15/19 00:00 09/17/19 05:41 Cleocin - PO 300 mg Q6HPO DEV Administration Diphenhydramine HCl 50 mg 09/16/19 15:26 09/17/19 01:12 Benadryl Injection - IVPB 50 mg Q6H PRN Administration itchiness Octreotide Acetate 200 mcg/ 500 mls @ 20.833 mls/hr 09/09/19 20:15 09/17/19 01:14 Octreotide Acetate 1,000 mcg/ IVPB Not Given Dextrose ASDIR DEV Protocol Pantoprazole Sodium 160 mg/ 290 mls @ 14.5 mls/hr 09/13/19 16:00 09/17/19 01: 14 Sodium Chloride IVPB Not Given Q20H DEV Levetiracetam 500 mg 09/09/19 22:00 09/16/19 22:25 Keppra - PO 500 mg BID DEV Administration Melatonin 5 mg 09/14/19 19:32 09/16/19 22:25 Melatonin PO 5 mg HS PRN Administration INSOMNIA Ondansetron HCl 4 mg 09/16/19 15:26 09/16/19 16:05 Zofran Injection IVPUSH 4 mg Q6H PRN Administration NAUSEA AND/OR VOMITING Tamsulosin HCl 0.4 mg 09/10/19 08:30 09/16/19 09:46 Flomax - PO 0.4 mg DAILY@0830 DEV Administration Thiamine HCl 100 mg 09/10/19 10:00 09/16/19 09:47 Vitamin B1 - PO 100 mg DAILY DEV Administration Impression 1. ESRD 2. htn 3. hx etoh abuse 4. liver cirrhosis with tips 5. anemia 6. pancytopenia with worsening leukopenia Plan - pt tolerating HD - cont epogen - tranfuse prbc - monitor wbc - hematology follow up pending - abx for cellulitis - pt not on heparin with HD - 4 :15 180 abf 400 3 k bath
[2019-09-17] MEDS ORDERED: PT OWN MED DRAWER 7, Y5N ONE ×2 (10:51→20:14)
--- NOTE | 2019-09-17 12:20 | PN ---
Progress Note, Physician History of Present Illness: PULMONARY ALERT,COMFORTABLE,-SOB,+ C/O ANT CHEST DISCOMFORT WHEN TAKING DEEP BREATHS - Current Medication List Current Medications: Active Medications Acetaminophen (Ofirmev Injection -) 1,000 mg IVPB Q6H PRN PRN Reason: PAIN LEVEL 1-5 Last Admin: 09/17/19 08:05 Dose: 1,000 mg Amlodipine Besylate (Norvasc -) 10 mg PO DAILY [facility] Last Admin: 09/16/19 09:46 Dose: 10 mg Clindamycin HCl (Cleocin -) 300 mg PO Q6HPO [facility] Last Admin: 09/17/19 05:41 Dose: 300 mg Diphenhydramine HCl (Benadryl Injection -) 50 mg IVPB Q6H PRN PRN Reason: itchiness Last Admin: 09/17/19 11:10 Dose: 50 mg Ferrous Sulfate (Feosol -) 325 mg PO BID [facility] Octreotide Acetate 200 mcg/Octreotide Acetate 1,000 mcg/Dextrose 500 mls @ 20.833 mls/hr IVPB ASDIR [facility]; Protocol Last Admin: 09/17/19 01:14 Dose: Not Given Pantoprazole Sodium 160 mg/ (Sodium Chloride) 290 mls @ 14.5 mls/hr IVPB Q20H [facility] Last Admin: 09/17/19 01:14 Dose: Not Given Levetiracetam (Keppra -) 500 mg PO BID [facility] Last Admin: 09/16/19 22:25 Dose: 500 mg Melatonin (Melatonin) 5 mg PO HS PRN PRN Reason: INSOMNIA Last Admin: 09/16/19 22:25 Dose: 5 mg Ondansetron HCl (Zofran Injection) 4 mg IVPUSH Q6H PRN PRN Reason: NAUSEA AND/OR VOMITING Last Admin: 09/16/19 16:05 Dose: 4 mg Tamsulosin HCl (Flomax -) 0.4 mg PO DAILY@0830 [facility] Last Admin: 09/16/19 09:46 Dose: 0.4 mg Thiamine HCl (Vitamin B1 -) 100 mg PO DAILY [facility] Last Admin: 09/16/19 09:47 Dose: 100 mg - Objective Vital Signs: Vital Signs Temperature 98.3 F 09/16/19 21:00 Pulse Rate 90 09/17/19 11:57 Respiratory Rate 18 09/17/19 11:57 Blood Pressure 151/80 09/17/19 11:57 O2 Sat by Pulse Oximetry (%) 95 09/16/19 21:00 Constitutional: Yes: Well Nourished, Calm Eyes: Yes: WNL HENT: Yes: WNL Neck: Yes: WNL Cardiovascular: Yes: Regular Rate and Rhythm, S1, S2 Respiratory: Yes: CTA Bilaterally Gastrointestinal: Yes: Normal Bowel Sounds, Soft Extremities: Yes: WNL Edema: No Labs: CBC, BMP 09/17/19 07:10 INR, PTT INR 1.01 (0.83-1.09) 09/09/19 18:50 Problem List - Problems (1) Alcoholic cirrhosis of liver without ascites Code(s): K70.30 - ALCOHOLIC CIRRHOSIS OF LIVER WITHOUT ASCITES (2) Anemia Code(s): D64.9 - ANEMIA, UNSPECIFIED (3) ESRD (end stage renal disease) Code(s): N18.6 - END STAGE RENAL DISEASE (4) GI (gastrointestinal bleed) Code(s): K92.2 - GASTROINTESTINAL HEMORRHAGE, UNSPECIFIED (5) History of esophageal varices with bleeding Code(s): Z87.19 - PERSONAL HISTORY OF OTHER DISEASES OF THE DIGESTIVE SYSTEM (6) Missed dialysis Code(s): CCC0908 - (7) ESRD (end stage renal disease) on dialysis Code(s): N18.6 - END STAGE RENAL DISEASE; Z99.2 - DEPENDENCE ON RENAL DIALYSIS (8) Nicotine dependence Code(s): F17.200 - NICOTINE DEPENDENCE, UNSPECIFIED, UNCOMPLICATED Qualifiers: Nicotine product type: cigarettes Substance use status: uncomplicated Qualified Code(s): F17.210 - Nicotine dependence, cigarettes, uncomplicated Assessment/Plan A/P ESRD on HD Pancytopenia Cellulitis Liver Cirrhosis Anemia - HD per renal - monitor CBC - antiemetics - DVT prophylaxis - Chest x-ray DR HAMILTON
[2019-09-17 12:28] LABS: CREATININE 1.6 mg/dL (0.55-1.3)
--- NOTE | 2019-09-17 13:15 | PN ---
Progress Note, Physician History of Present Illness: stable no new issues - Current Medication List Current Medications: Active Medications Acetaminophen (Ofirmev Injection -) 1,000 mg IVPB Q6H PRN PRN Reason: PAIN LEVEL 1-5 Last Admin: 09/17/19 08:05 Dose: 1,000 mg Amlodipine Besylate (Norvasc -) 10 mg PO DAILY [facility] Last Admin: 09/16/19 09:46 Dose: 10 mg Clindamycin HCl (Cleocin -) 300 mg PO Q6HPO [facility] Last Admin: 09/17/19 05:41 Dose: 300 mg Diphenhydramine HCl (Benadryl Injection -) 50 mg IVPB Q6H PRN PRN Reason: itchiness Last Admin: 09/17/19 11:10 Dose: 50 mg Ferrous Sulfate (Feosol -) 325 mg PO BID [facility] Octreotide Acetate 200 mcg/Octreotide Acetate 1,000 mcg/Dextrose 500 mls @ 20.833 mls/hr IVPB ASDIR [facility]; Protocol Last Admin: 09/17/19 01:14 Dose: Not Given Pantoprazole Sodium 160 mg/ (Sodium Chloride) 290 mls @ 14.5 mls/hr IVPB Q20H [facility] Last Admin: 09/17/19 01:14 Dose: Not Given Levetiracetam (Keppra -) 500 mg PO BID [facility] Last Admin: 09/16/19 22:25 Dose: 500 mg Melatonin (Melatonin) 5 mg PO HS PRN PRN Reason: INSOMNIA Last Admin: 09/16/19 22:25 Dose: 5 mg Ondansetron HCl (Zofran Injection) 4 mg IVPUSH Q6H PRN PRN Reason: NAUSEA AND/OR VOMITING Last Admin: 09/16/19 16:05 Dose: 4 mg Tamsulosin HCl (Flomax -) 0.4 mg PO DAILY@0830 [facility] Last Admin: 09/16/19 09:46 Dose: 0.4 mg Thiamine HCl (Vitamin B1 -) 100 mg PO DAILY [facility] Last Admin: 09/16/19 09:47 Dose: 100 mg - Objective Vital Signs: Vital Signs Temperature 98.3 F 09/16/19 21:00 Pulse Rate 90 09/17/19 11:57 Respiratory Rate 18 09/17/19 11:57 Blood Pressure 151/80 09/17/19 11:57 O2 Sat by Pulse Oximetry (%) 95 09/16/19 21:00 Constitutional: Yes: No Distress, Calm Cardiovascular: Yes: S1, S2 Respiratory: Yes: Regular, CTA Bilaterally Gastrointestinal: Yes: Normal Bowel Sounds, Soft Musculoskeletal: Yes: Other Extremities: Yes: Erythema (much improved) Neurological: Yes: Alert, Oriented Psychiatric: Yes: Alert, Oriented Labs: CBC, BMP 09/17/19 07:10 09/17/19 11:10 INR, PTT INR 1.01 (0.83-1.09) 09/09/19 18:50 Assessment/Plan this patient with multiple medical problems will start clinda needs to be drained watch closely rest as per the team
[2019-09-17] MEDS: levETIRAcetam 500 MG TABLET (FP) PO SCH ×2 (13:49→21:04)
[2019-09-17] MEDS: amLODIPine BESYLATE 10 MG TABLET (FP) PO SCH (13:49)
[2019-09-17] MEDS: THIAMINE HCL 100 MG TABLET (FP) PO SCH (13:49)
[2019-09-17] MEDS: FERROUS SO4 325 MG TABLET (FP) PO SCH ×2 (13:50→21:04)
[2019-09-17] MEDS: TAMSULOSIN HCL 0.4 MG CAP PO SCH (13:52)
[2019-09-17] MEDS: diphenhydrAMINE HCL 25 MG CAPSULE (FP) PO PRN ×2 (18:59→23:16)
--- NOTE | 2019-09-17 20:35 | PN ---
Progress Note (short form) - Note Progress Note: Advised by nurse that patient still on PPI and octreotide drip. Procedure report outlined recommendations regarding these medications. Will discontinue them now. Problem List - Problems (1) Anemia Code(s): D64.9 - ANEMIA, UNSPECIFIED
--- NOTE | 2019-09-17 20:38 | PN ---
Progress Note, Physician - Current Medication List Current Medications: Active Medications Acetaminophen (Ofirmev Injection -) 1,000 mg IVPB Q6H PRN PRN Reason: PAIN LEVEL 1-5 Last Admin: 09/17/19 08:05 Dose: 1,000 mg Amlodipine Besylate (Norvasc -) 10 mg PO DAILY [facility] Last Admin: 09/17/19 13:49 Dose: 10 mg Clindamycin HCl (Cleocin -) 300 mg PO Q6HPO [facility] Last Admin: 09/17/19 18:20 Dose: 300 mg Diphenhydramine HCl (Benadryl -) 25 mg PO Q4H PRN PRN Reason: ITCHINESS Last Admin: 09/17/19 18:59 Dose: 25 mg Ferrous Sulfate (Feosol -) 325 mg PO BID [facility] Last Admin: 09/17/19 13:50 Dose: 325 mg Octreotide Acetate 200 mcg/Octreotide Acetate 1,000 mcg/Dextrose 500 mls @ 20.833 mls/hr IVPB ASDIR [facility]; Protocol Last Admin: 09/17/19 01:14 Dose: Not Given Pantoprazole Sodium 160 mg/ (Sodium Chloride) 290 mls @ 14.5 mls/hr IVPB Q20H [facility] Last Admin: 09/17/19 01:14 Dose: Not Given Levetiracetam (Keppra -) 500 mg PO BID [facility] Last Admin: 09/17/19 13:49 Dose: 500 mg Melatonin (Melatonin) 5 mg PO HS PRN PRN Reason: INSOMNIA Last Admin: 09/16/19 22:25 Dose: 5 mg Ondansetron HCl (Zofran Injection) 4 mg IVPUSH Q6H PRN PRN Reason: NAUSEA AND/OR VOMITING Last Admin: 09/16/19 16:05 Dose: 4 mg Tamsulosin HCl (Flomax -) 0.4 mg PO DAILY@0830 [facility] Last Admin: 09/17/19 13:52 Dose: 0.4 mg Thiamine HCl (Vitamin B1 -) 100 mg PO DAILY [facility] Last Admin: 09/17/19 13:49 Dose: 100 mg - Objective Vital Signs: Vital Signs Temperature 98.0 F 09/17/19 14:00 Pulse Rate 69 09/17/19 14:00 Respiratory Rate 20 09/17/19 14:00 Blood Pressure 146/80 09/17/19 14:00 O2 Sat by Pulse Oximetry (%) 100 09/17/19 09:00 Constitutional: Yes: No Distress HENT: Yes: Atraumatic Neck: Yes: Supple Cardiovascular: Yes: Regular Rate and Rhythm Respiratory: Yes: CTA Bilaterally Gastrointestinal: Yes: Normal Bowel Sounds Extremities: Yes: WNL Neurological: Yes: Alert, Oriented Labs: CBC, BMP 09/17/19 07:10 09/17/19 11:10 INR, PTT INR 1.01 (0.83-1.09) 09/09/19 18:50 Problem List - Problems (1) GI (gastrointestinal bleed) Assessment/Plan: low h/h Code(s): K92.2 - GASTROINTESTINAL HEMORRHAGE, UNSPECIFIED (2) Missed dialysis Code(s): [id number] - (3) CKD (chronic kidney disease) Assessment/Plan: on hd Code(s): N18.9 - CHRONIC KIDNEY DISEASE, UNSPECIFIED (4) ESRD (end stage renal disease) on dialysis Code(s): N18.6 - END STAGE RENAL DISEASE; Z99.2 - DEPENDENCE ON RENAL DIALYSIS (5) Pancytopenia Assessment/Plan: monitor alcohol related on abx per id heme on board Code(s): D61.818 - OTHER PANCYTOPENIA
[2019-09-17] MEDS: MELATONIN 5 MG TABLETS PO PRN (21:05)
[2019-09-18] MEDS ORDERED: PT OWN MED DRAWER 7, Y5N ONE (01:39)
[2019-09-18] MEDS: ACETAMINOPHEN 1000 MG/100 ML VIAL (NON FORMULARY) IVPB PRN ×4 (04:30→23:49)
[2019-09-18] MEDS: CLINDAMYCIN HCL 150 MG CAPSULE (FP) PO SCH ×4 (06:00→23:49)
[2019-09-18 07:06] LABS: BASO % 1.5 % (0-2.0); EOS % 3.6 % (0-4.5); HEMATOCRIT 23.5 % (35.4-49); HEMOGLOBIN 8.2 GM/dL (11.7-16.9); LYMPH % 20.4 % (8-40); MCH 31.3 pg (25.7-33.7); MCHC 34.6 g/dl (32.0-35.9); MEAN CELL VOLUME 90.5 fl (80-96); MEAN PLT VOLUME 8.5 fl (7.5-11.1); MONO % 10.3 % (3.8-10.2); NEUT % 64.2 % (42.8-82.8); PLATELET COUNT 54 K/MM3 (134-434); RDW 18.5 % (11.9-15.9); WHITE BLOOD COUNT 2.2 K/mm3 (4.0-10.0)
[2019-09-18] MEDS: amLODIPine BESYLATE 10 MG TABLET (FP) PO SCH (10:22)
[2019-09-18] MEDS: diphenhydrAMINE HCL 25 MG CAPSULE (FP) PO PRN ×3 (10:22→21:25)
[2019-09-18] MEDS: THIAMINE HCL 100 MG TABLET (FP) PO SCH (10:22)
[2019-09-18] MEDS: TAMSULOSIN HCL 0.4 MG CAP PO SCH (10:22)
[2019-09-18] MEDS: levETIRAcetam 500 MG TABLET (FP) PO SCH ×2 (10:22→21:24)
[2019-09-18] MEDS: FERROUS SO4 325 MG TABLET (FP) PO SCH ×2 (10:22→21:24)
--- NOTE | 2019-09-18 10:41 | CON.PSY ---
Psychiatry Consult Chief Complaint: 49 Year old Male with a history of Depression and anxiety and multiople chronic Medical conditions seen for Psyv eval. Patient had been on Prozac 20 mg po od in the community for a month. Symptoms: reports: Depressed Mood, Anxiety - Previous Psychiatric Treatment Outpatient: Less than 6 mos ago Inpatient: One prior admission - Previous Substance Abuse Treatment Outpatient: None Inpatient: None - Reason for Previous Treatment Reason for Previous Treatment: Major Depression - Current Medications Current Medications: Active Medications Acetaminophen (Ofirmev Injection -) 1,000 mg IVPB Q6H PRN PRN Reason: PAIN LEVEL 1-5 Last Admin: 09/18/19 04:30 Dose: 1,000 mg Amlodipine Besylate (Norvasc -) 10 mg PO DAILY [facility] Last Admin: 09/18/19 10:22 Dose: 10 mg Clindamycin HCl (Cleocin -) 300 mg PO Q6HPO [facility] Last Admin: 09/18/19 06:00 Dose: 300 mg Diphenhydramine HCl (Benadryl -) 25 mg PO Q4H PRN PRN Reason: ITCHINESS Last Admin: 09/18/19 10:22 Dose: 25 mg Ferrous Sulfate (Feosol -) 325 mg PO BID [facility] Last Admin: 09/18/19 10:22 Dose: 325 mg Fluoxetine HCl (Prozac -) 20 mg PO DAILY [facility] Levetiracetam (Keppra -) 500 mg PO BID [facility] Last Admin: 09/18/19 10:22 Dose: 500 mg Melatonin (Melatonin) 5 mg PO HS PRN PRN Reason: INSOMNIA Last Admin: 09/17/19 21:05 Dose: 5 mg Ondansetron HCl (Zofran Injection) 4 mg IVPUSH Q6H PRN PRN Reason: NAUSEA AND/OR VOMITING Last Admin: 09/16/19 16:05 Dose: 4 mg Tamsulosin HCl (Flomax -) 0.4 mg PO DAILY@0830 [facility] Last Admin: 09/18/19 10:22 Dose: 0.4 mg Thiamine HCl (Vitamin B1 -) 100 mg PO DAILY [facility] Last Admin: 09/18/19 10:22 Dose: 100 mg - Allergies Allergies: Allergies Allergy/AdvReac Type Severity Reaction Status Date / Time piperacillin Allergy Severe Swelling Verified 09/11/19 14:07 shellfish derived Allergy Severe Swelling Verified 09/09/19 16:26 latex Allergy Mild Rash Verified 09/11/19 14:07 - Current Living Status Usual Living Arrangement: Alone - Current Mental Status Evaluation Appearance: Well Groomed Attitude: Cooperative - Affect Affect: Constrictive Appropriateness: Appropriate to Content - Mood Mood: Depressed - Speech/Language Expressive: Coherent - Psychomotor Activity Psychomotor Activity: Normal - Thought Process Thought Process: Intact - Thought Content Hallucinations: Absent Delusions: Absent - Self Perception Self Perception: No Impairment - Cognition Attention: Alert Orientation: Time Memory, Immediate Recall: Intact Memory, Short Term: 3/3 Memory, Remote with Promptin/3 - Concentration Serial Sevens Intact: Yes Simple Calculations Intact: Yes - Abstraction Proverb Interpretation: Intact Judgement: Intact - Insight Insight: Intact - Impulse Control Impulse Control: Good Control - Suicidal Ideation Suicidal Ideation: No - Homicidal Ideation Homicidal Ideation: No Assessment/Plan 1) Start Prozac 20 mg po od for Depression and anxirty.
[2019-09-18] MEDS: PANTOPRAZOLE SODIUM 160 MG in SODIUM CHLORIDE 290 ML IVPB SCH (10:46)
[2019-09-18] MEDS: OCTREOTIDE ACETATE 200 MCG, OCTREOTIDE ACETATE 1,000 MCG in DEXTROSE 5%-WATER - 496 ML IVPB SCH (10:47)
--- NOTE | 2019-09-18 11:01 | PATH ---
Surgical Pathology Report Patient Name: ROBINSON YO[facility]. Rec. #: [id number] /Age/Gender: 1970 (Age: 49) / M Account: [id number] Location: [address] [place] [address]/[facility] Taken: 09/11/2019 Received: 09/12/2019 Reported: 09/18/2019 Physicians: MD Cleveland Velasquez M.D. Specimen(s) Received STOMACH BIOPSY Clinical History Anemia Postoperative diagnosis: Gastritis Final Diagnosis STOMACH BIOPSY: GASTRIC MUCOSA WITH CHRONIC GASTRITIS. IMMUNOSTAIN FOR H. PYLORI IS NEGATIVE. NEGATIVE FOR INTESTINAL METAPLASIA. Also see pathology report [id number]. Electronically Signed Teresita Roberson M.D. Gross Description Received in formalin, labeled "stomach biopsy" are 3 urban, irregular portions of soft tissue ranging from 0.1-0.4 cm. in greatest dimension. The specimens are submitted in toto in one cassette.
--- NOTE | 2019-09-18 12:22 | PN ---
Progress Note, Physician History of Present Illness: PULMONARY ALERT,NO DISTRESS,-SOB,-CP - Current Medication List Current Medications: Active Medications Acetaminophen (Ofirmev Injection -) 1,000 mg IVPB Q6H PRN PRN Reason: PAIN LEVEL 1-5 Last Admin: 09/18/19 10:44 Dose: 1,000 mg Amlodipine Besylate (Norvasc -) 10 mg PO DAILY [facility] Last Admin: 09/18/19 10:22 Dose: 10 mg Clindamycin HCl (Cleocin -) 300 mg PO Q6HPO [facility] Last Admin: 09/18/19 06:00 Dose: 300 mg Diphenhydramine HCl (Benadryl -) 25 mg PO Q4H PRN PRN Reason: ITCHINESS Last Admin: 09/18/19 10:22 Dose: 25 mg Ferrous Sulfate (Feosol -) 325 mg PO BID [facility] Last Admin: 09/18/19 10:22 Dose: 325 mg Fluoxetine HCl (Prozac -) 20 mg PO DAILY [facility] Levetiracetam (Keppra -) 500 mg PO BID [facility] Last Admin: 09/18/19 10:22 Dose: 500 mg Melatonin (Melatonin) 5 mg PO HS PRN PRN Reason: INSOMNIA Last Admin: 09/17/19 21:05 Dose: 5 mg Ondansetron HCl (Zofran Injection) 4 mg IVPUSH Q6H PRN PRN Reason: NAUSEA AND/OR VOMITING Last Admin: 09/16/19 16:05 Dose: 4 mg Tamsulosin HCl (Flomax -) 0.4 mg PO DAILY@0830 [facility] Last Admin: 09/18/19 10:22 Dose: 0.4 mg Thiamine HCl (Vitamin B1 -) 100 mg PO DAILY [facility] Last Admin: 09/18/19 10:22 Dose: 100 mg - Objective Vital Signs: Vital Signs Temperature 98.1 F 09/18/19 10:32 Pulse Rate 74 09/18/19 10:32 Respiratory Rate 20 09/18/19 10:32 Blood Pressure 141/75 09/18/19 10:32 O2 Sat by Pulse Oximetry (%) 97 09/18/19 10:32 Constitutional: Yes: Well Nourished, Calm Eyes: Yes: WNL HENT: Yes: WNL Neck: Yes: WNL Cardiovascular: Yes: Regular Rate and Rhythm, S1, S2 Respiratory: Yes: CTA Bilaterally Gastrointestinal: Yes: Normal Bowel Sounds, Soft Extremities: Yes: WNL Edema: No Labs: CBC, BMP 09/18/19 05:20 - ....Imaging Chest X-ray: Report Reviewed, Image Reviewed Problem List - Problems (1) Alcoholic cirrhosis of liver without ascites Code(s): K70.30 - ALCOHOLIC CIRRHOSIS OF LIVER WITHOUT ASCITES (2) Anemia Code(s): D64.9 - ANEMIA, UNSPECIFIED (3) ESRD (end stage renal disease) Code(s): N18.6 - END STAGE RENAL DISEASE (4) GI (gastrointestinal bleed) Code(s): K92.2 - GASTROINTESTINAL HEMORRHAGE, UNSPECIFIED (5) History of esophageal varices with bleeding Code(s): Z87.19 - PERSONAL HISTORY OF OTHER DISEASES OF THE DIGESTIVE SYSTEM (6) Missed dialysis Code(s): [id number] - (7) ESRD (end stage renal disease) on dialysis Code(s): N18.6 - END STAGE RENAL DISEASE; Z99.2 - DEPENDENCE ON RENAL DIALYSIS (8) Nicotine dependence Code(s): F17.200 - NICOTINE DEPENDENCE, UNSPECIFIED, UNCOMPLICATED Qualifiers: Nicotine product type: cigarettes Substance use status: uncomplicated Qualified Code(s): F17.210 - Nicotine dependence, cigarettes, uncomplicated Assessment/Plan A/P ESRD on HD Pancytopenia Cellulitis Liver Cirrhosis Anemia - HD per renal - monitor CBC - DVT prophylaxis DR HAMILTON
--- NOTE | 2019-09-18 12:28 | PN ---
Progress Note, Physician History of Present Illness: stable no issues hand improving - Current Medication List Current Medications: Active Medications Acetaminophen (Ofirmev Injection -) 1,000 mg IVPB Q6H PRN PRN Reason: PAIN LEVEL 1-5 Last Admin: 09/18/19 10:44 Dose: 1,000 mg Amlodipine Besylate (Norvasc -) 10 mg PO DAILY [facility] Last Admin: 09/18/19 10:22 Dose: 10 mg Clindamycin HCl (Cleocin -) 300 mg PO Q6HPO [facility] Last Admin: 09/18/19 06:00 Dose: 300 mg Diphenhydramine HCl (Benadryl -) 25 mg PO Q4H PRN PRN Reason: ITCHINESS Last Admin: 09/18/19 10:22 Dose: 25 mg Ferrous Sulfate (Feosol -) 325 mg PO BID [facility] Last Admin: 09/18/19 10:22 Dose: 325 mg Fluoxetine HCl (Prozac -) 20 mg PO DAILY [facility] Levetiracetam (Keppra -) 500 mg PO BID [facility] Last Admin: 09/18/19 10:22 Dose: 500 mg Melatonin (Melatonin) 5 mg PO HS PRN PRN Reason: INSOMNIA Last Admin: 09/17/19 21:05 Dose: 5 mg Ondansetron HCl (Zofran Injection) 4 mg IVPUSH Q6H PRN PRN Reason: NAUSEA AND/OR VOMITING Last Admin: 09/16/19 16:05 Dose: 4 mg Tamsulosin HCl (Flomax -) 0.4 mg PO DAILY@0830 [facility] Last Admin: 09/18/19 10:22 Dose: 0.4 mg Thiamine HCl (Vitamin B1 -) 100 mg PO DAILY [facility] Last Admin: 09/18/19 10:22 Dose: 100 mg - Objective Vital Signs: Vital Signs Temperature 98.1 F 09/18/19 10:32 Pulse Rate 74 09/18/19 10:32 Respiratory Rate 20 09/18/19 10:32 Blood Pressure 141/75 09/18/19 10:32 O2 Sat by Pulse Oximetry (%) 97 09/18/19 10:32 Constitutional: Yes: No Distress, Calm Cardiovascular: Yes: S1, S2 Respiratory: Yes: Regular, CTA Bilaterally Gastrointestinal: Yes: Normal Bowel Sounds, Soft Musculoskeletal: Yes: WNL, Other Extremities: Yes: Other Neurological: Yes: Alert, Oriented Psychiatric: Yes: Alert, Oriented Labs: CBC, BMP 09/18/19 05:20 09/17/19 11:10 INR, PTT INR 1.01 (0.83-1.09) 09/09/19 18:50 Assessment/Plan Problem List - Problems (1) GI (gastrointestinal bleed) Code(s): K92.2 - GASTROINTESTINAL HEMORRHAGE, UNSPECIFIED (2) Missed dialysis Code(s): [id number] - (3) CKD (chronic kidney disease) Assessment/Plan: on hd Code(s): N18.9 - CHRONIC KIDNEY DISEASE, UNSPECIFIED (4) ESRD (end stage renal disease) on dialysis Code(s): N18.6 - END STAGE RENAL DISEASE; Z99.2 - DEPENDENCE ON RENAL DIALYSIS (5) Pancytopenia Code(s): D61.818 - OTHER PANCYTOPENIA 6 cellulitis of the hand with boil plan continue abx will deeescalte in couple of days rest as per the team
[2019-09-18] MEDS ORDERED: SODIUM CHLORIDE 250 ML IV PRN (12:41)
--- NOTE | 2019-09-18 12:41 | PN ---
Progress Note, Physician History of Present Illness: Pt seen and examined at bedside. He is awake and alert. He denies shortness of breath. - Current Medication List Current Medications: Active Medications Acetaminophen (Ofirmev Injection -) 1,000 mg IVPB Q6H PRN PRN Reason: PAIN LEVEL 1-5 Last Admin: 09/18/19 10:44 Dose: 1,000 mg Amlodipine Besylate (Norvasc -) 10 mg PO DAILY [facility] Last Admin: 09/18/19 10:22 Dose: 10 mg Clindamycin HCl (Cleocin -) 300 mg PO Q6HPO [facility] Last Admin: 09/18/19 06:00 Dose: 300 mg Diphenhydramine HCl (Benadryl -) 25 mg PO Q4H PRN PRN Reason: ITCHINESS Last Admin: 09/18/19 10:22 Dose: 25 mg Ferrous Sulfate (Feosol -) 325 mg PO BID [facility] Last Admin: 09/18/19 10:22 Dose: 325 mg Fluoxetine HCl (Prozac -) 20 mg PO DAILY [facility] Levetiracetam (Keppra -) 500 mg PO BID [facility] Last Admin: 09/18/19 10:22 Dose: 500 mg Melatonin (Melatonin) 5 mg PO HS PRN PRN Reason: INSOMNIA Last Admin: 09/17/19 21:05 Dose: 5 mg Ondansetron HCl (Zofran Injection) 4 mg IVPUSH Q6H PRN PRN Reason: NAUSEA AND/OR VOMITING Last Admin: 09/16/19 16:05 Dose: 4 mg Tamsulosin HCl (Flomax -) 0.4 mg PO DAILY@0830 [facility] Last Admin: 09/18/19 10:22 Dose: 0.4 mg Thiamine HCl (Vitamin B1 -) 100 mg PO DAILY [facility] Last Admin: 09/18/19 10:22 Dose: 100 mg - Objective Vital Signs: Vital Signs Temperature 98.1 F 09/18/19 10:32 Pulse Rate 74 09/18/19 10:32 Respiratory Rate 20 09/18/19 10:32 Blood Pressure 141/75 09/18/19 10:32 O2 Sat by Pulse Oximetry (%) 97 09/18/19 10:32 Constitutional: Yes: Calm Eyes: Yes: Conjunctiva Clear HENT: Yes: Atraumatic Neck: Yes: Supple Cardiovascular: Yes: S1, S2 Respiratory: Yes: CTA Bilaterally Gastrointestinal: Yes: Normal Bowel Sounds, Soft Genitourinary: Yes: WNL Musculoskeletal: Yes: WNL Edema: No Integumentary: Yes: WNL Neurological: Yes: Oriented Psychiatric: Yes: Oriented Labs: CBC, BMP 09/18/19 05:20 09/17/19 11:10 INR, PTT INR 1.01 (0.83-1.09) 09/09/19 18:50 Problem List - Problems (1) ESRD (end stage renal disease) Code(s): N18.6 - END STAGE RENAL DISEASE (2) Alcoholic cirrhosis of liver without ascites Code(s): K70.30 - ALCOHOLIC CIRRHOSIS OF LIVER WITHOUT ASCITES (3) Missed dialysis Code(s): [id number] - Assessment/Plan Current Medications Generic Name Dose Route Start Last Admin Trade Name Freq PRN Reason Stop Dose Admin Acetaminophen 1,000 mg 09/14/19 19:19 09/18/19 10:44 Ofirmev Injection - IVPB 1,000 mg Q6H PRN Administration PAIN LEVEL 1-5 Amlodipine Besylate 10 mg 09/10/19 10:00 09/18/19 10:22 Norvasc - PO 10 mg DAILY [facility] Administration Clindamycin HCl 300 mg 09/15/19 00:00 09/18/19 06:00 Cleocin - PO 300 mg Q6HPO [facility] Administration Diphenhydramine HCl 25 mg 09/17/19 18:49 09/18/19 10:22 Benadryl - PO 25 mg Q4H PRN Administration ITCHINESS Ferrous Sulfate 325 mg 09/17/19 10:30 09/18/19 10:22 Feosol - PO 325 mg BID [facility] Administration Fluoxetine HCl 20 mg 09/19/19 10:00 Prozac - PO DAILY [facility] Levetiracetam 500 mg 09/09/19 22:00 09/18/19 10:22 Keppra - PO 500 mg BID [facility] Administration Melatonin 5 mg 09/14/19 19:32 09/17/19 21:05 Melatonin PO 5 mg HS PRN Administration INSOMNIA Ondansetron HCl 4 mg 09/16/19 15:26 09/16/19 16:05 Zofran Injection IVPUSH 4 mg Q6H PRN Administration NAUSEA AND/OR VOMITING Tamsulosin HCl 0.4 mg 09/10/19 08:30 09/18/19 10:22 Flomax - PO 0.4 mg DAILY@0830 [facility] Administration Thiamine HCl 100 mg 09/10/19 10:00 09/18/19 10:22 Vitamin B1 - PO 100 mg DAILY [facility] Administration Impression 1. ESRD 2. htn 3. hx etoh abuse 4. liver cirrhosis with tips 5. anemia 6. pancytopenia with worsening leukopenia Plan - hg improved - monitor wbc - oncology follow up - hd tomorrow - cont epogen - abx for cellulitis - pt not on heparin with HD - 4 :15 180 abf 400 3 k bath
--- NOTE | 2019-09-18 16:05 | PN ---
Progress Note, Physician - Current Medication List Current Medications: Active Medications Acetaminophen (Ofirmev Injection -) 1,000 mg IVPB Q6H PRN PRN Reason: PAIN LEVEL 1-5 Last Admin: 09/18/19 10:44 Dose: 1,000 mg Amlodipine Besylate (Norvasc -) 10 mg PO DAILY [facility] Last Admin: 09/18/19 10:22 Dose: 10 mg Clindamycin HCl (Cleocin -) 300 mg PO Q6HPO [facility] Last Admin: 09/18/19 13:30 Dose: 300 mg Diphenhydramine HCl (Benadryl -) 25 mg PO Q4H PRN PRN Reason: ITCHINESS Last Admin: 09/18/19 10:22 Dose: 25 mg Epoetin Kendall (Epogen -) 12,000 unit IVPUSH ONCE ONE Stop: 09/19/19 12:42 Ferrous Sulfate (Feosol -) 325 mg PO BID [facility] Last Admin: 09/18/19 10:22 Dose: 325 mg Fluoxetine HCl (Prozac -) 20 mg PO DAILY [facility] Sodium Chloride (Normal Saline -) 250 mls @ 3,000 mls/hr IV PRN PRN PRN Reason: Hypotension during Dialysis Stop: 09/19/19 12:41 Levetiracetam (Keppra -) 500 mg PO BID [facility] Last Admin: 09/18/19 10:22 Dose: 500 mg Melatonin (Melatonin) 5 mg PO HS PRN PRN Reason: INSOMNIA Last Admin: 09/17/19 21:05 Dose: 5 mg Ondansetron HCl (Zofran Injection) 4 mg IVPUSH Q6H PRN PRN Reason: NAUSEA AND/OR VOMITING Last Admin: 09/16/19 16:05 Dose: 4 mg Tamsulosin HCl (Flomax -) 0.4 mg PO DAILY@0830 [facility] Last Admin: 09/18/19 10:22 Dose: 0.4 mg Thiamine HCl (Vitamin B1 -) 100 mg PO DAILY [facility] Last Admin: 09/18/19 10:22 Dose: 100 mg - Objective Vital Signs: Vital Signs Temperature 97.8 F 09/18/19 14:30 Pulse Rate 71 09/18/19 14:30 Respiratory Rate 18 09/18/19 14:30 Blood Pressure 120/73 09/18/19 14:30 O2 Sat by Pulse Oximetry (%) 97 09/18/19 10:32 Constitutional: Yes: No Distress HENT: Yes: Atraumatic Neck: Yes: Supple Cardiovascular: Yes: Regular Rate and Rhythm Respiratory: Yes: CTA Bilaterally Gastrointestinal: Yes: Normal Bowel Sounds Extremities: Yes: WNL Edema: No Neurological: Yes: Alert, Oriented Labs: CBC, BMP 09/18/19 05:20 09/17/19 11:10 INR, PTT INR 1.01 (0.83-1.09) 09/09/19 18:50 Problem List - Problems (1) GI (gastrointestinal bleed) Assessment/Plan: low h/h Code(s): K92.2 - GASTROINTESTINAL HEMORRHAGE, UNSPECIFIED (2) Missed dialysis Assessment/Plan: renal board on Hd Code(s): [id number] - (3) CKD (chronic kidney disease) Assessment/Plan: on hd Code(s): N18.9 - CHRONIC KIDNEY DISEASE, UNSPECIFIED (4) ESRD (end stage renal disease) on dialysis Code(s): N18.6 - END STAGE RENAL DISEASE; Z99.2 - DEPENDENCE ON RENAL DIALYSIS (5) Pancytopenia Code(s): D61.818 - OTHER PANCYTOPENIA
[2019-09-18] MEDS: MELATONIN 5 MG TABLETS PO PRN (21:24)
[2019-09-19] MEDS: diphenhydrAMINE HCL 25 MG CAPSULE (FP) PO PRN ×4 (03:11→21:55)
[2019-09-19] MEDS: CLINDAMYCIN HCL 150 MG CAPSULE (FP) PO SCH ×4 (05:49→18:17)
[2019-09-19] MEDS: ACETAMINOPHEN 1000 MG/100 ML VIAL (NON FORMULARY) IVPB PRN ×3 (05:50→18:17)
[2019-09-19] MEDS ORDERED: LIDOCAINE 2.5%/PRILOCAINE 2.5% (5 Gram/TUBE) TP PRN (08:16)
[2019-09-19] MEDS: FERROUS SO4 325 MG TABLET (FP) PO SCH ×2 (09:54→21:55)
[2019-09-19] MEDS: levETIRAcetam 500 MG TABLET (FP) PO SCH ×2 (10:30→21:55)
[2019-09-19] MEDS ORDERED: EPOETIN ALFA 2,000 UNIT/1 ML VIAL IVPUSH ONE (11:00)
[2019-09-19 11:33] LABS: HEMOGLOBIN 8.3 GM/dL (11.7-16.9); MCH 30.6 pg (25.7-33.7); MCHC 33.2 g/dl (32.0-35.9); MEAN PLT VOLUME 8.9 fl (7.5-11.1); PLATELET COUNT 71 K/MM3 (134-434); RBC 2.72 M/mm3 (4.00-5.60); RDW 19.2 % (11.9-15.9); WHITE BLOOD COUNT 3.1 K/mm3 (4.0-10.0)
--- NOTE | 2019-09-19 11:50 | PN ---
Progress Note, Physician History of Present Illness: stable no new issues - Current Medication List Current Medications: Active Medications Acetaminophen (Ofirmev Injection -) 1,000 mg IVPB Q6H PRN PRN Reason: PAIN LEVEL 1-5 Last Admin: 09/19/19 05:50 Dose: 1,000 mg Amlodipine Besylate (Norvasc -) 10 mg PO DAILY [facility] Last Admin: 09/18/19 10:22 Dose: 10 mg Clindamycin HCl (Cleocin -) 300 mg PO Q6HPO [facility] Last Admin: 09/19/19 05:49 Dose: 300 mg Diphenhydramine HCl (Benadryl -) 25 mg PO Q4H PRN PRN Reason: ITCHINESS Last Admin: 09/19/19 10:32 Dose: 25 mg Ferrous Sulfate (Feosol -) 325 mg PO BID [facility] Last Admin: 09/18/19 21:24 Dose: 325 mg Fluoxetine HCl (Prozac -) 20 mg PO DAILY [facility] Sodium Chloride (Normal Saline -) 250 mls @ 3,000 mls/hr IV PRN PRN PRN Reason: Hypotension during Dialysis Stop: 09/19/19 12:41 Levetiracetam (Keppra -) 500 mg PO BID [facility] Last Admin: 09/19/19 10:30 Dose: Not Given Lidocaine/Prilocaine (Emla -) 1 applic TP DAILY PRN PRN Reason: DURING HD Last Admin: 09/19/19 10:32 Dose: 1 applic Melatonin (Melatonin) 5 mg PO HS PRN PRN Reason: INSOMNIA Last Admin: 09/18/19 21:24 Dose: 5 mg Ondansetron HCl (Zofran Injection) 4 mg IVPUSH Q6H PRN PRN Reason: NAUSEA AND/OR VOMITING Last Admin: 09/16/19 16:05 Dose: 4 mg Tamsulosin HCl (Flomax -) 0.4 mg PO DAILY@0830 [facility] Last Admin: 09/18/19 10:22 Dose: 0.4 mg Thiamine HCl (Vitamin B1 -) 100 mg PO DAILY [facility] Last Admin: 09/18/19 10:22 Dose: 100 mg - Objective Vital Signs: Vital Signs Temperature 98.0 F 09/19/19 11:15 Pulse Rate 64 09/19/19 11:20 Respiratory Rate 18 09/19/19 11:20 Blood Pressure 117/59 L 09/19/19 11:20 O2 Sat by Pulse Oximetry (%) 100 09/18/19 20:51 Constitutional: Yes: No Distress, Calm Cardiovascular: Yes: S1, S2 Respiratory: Yes: Regular, CTA Bilaterally Gastrointestinal: Yes: Normal Bowel Sounds, Soft Musculoskeletal: Yes: WNL Extremities: Yes: Erythema (resolved), Other Wound/Incision: Yes: Dressing Dry and Intact Neurological: Yes: Alert, Oriented Psychiatric: Yes: Alert, Oriented Labs: CBC, BMP 09/19/19 11:15 INR, PTT INR 1.01 (0.83-1.09) 09/09/19 18:50 Assessment/Plan Problem List - Problems (1) GI (gastrointestinal bleed) Code(s): K92.2 - GASTROINTESTINAL HEMORRHAGE, UNSPECIFIED (2) Missed dialysis Code(s): [id number] - (3) CKD (chronic kidney disease) Assessment/Plan: on hd Code(s): N18.9 - CHRONIC KIDNEY DISEASE, UNSPECIFIED (4) ESRD (end stage renal disease) on dialysis Code(s): N18.6 - END STAGE RENAL DISEASE; Z99.2 - DEPENDENCE ON RENAL DIALYSIS (5) Pancytopenia Code(s): D61.818 - OTHER PANCYTOPENIA 6 cellulitis of the hand with boil plan continue abx will deeescalte tomorrow rest as per the team
[2019-09-19 12:06] LABS: BLOOD UREA NITROGEN 30.9 mg/dL (7-18); CALCIUM 7.6 mg/dL (8.5-10.1); CREATININE 5.2 mg/dL (0.55-1.3); POTASSIUM 3.5 mmol/L (3.5-5.1)
--- NOTE | 2019-09-19 14:11 | PN ---
Progress Note, Physician History of Present Illness: Pt seen and examined at bedside. He is tolerating HD so far. - Current Medication List Current Medications: Active Medications Acetaminophen (Ofirmev Injection -) 1,000 mg IVPB Q6H PRN PRN Reason: PAIN LEVEL 1-5 Last Admin: 09/19/19 12:28 Dose: 1,000 mg Amlodipine Besylate (Norvasc -) 10 mg PO DAILY [facility] Last Admin: 09/18/19 10:22 Dose: 10 mg Clindamycin HCl (Cleocin -) 300 mg PO Q6HPO [facility] Last Admin: 09/19/19 05:49 Dose: 300 mg Diphenhydramine HCl (Benadryl -) 25 mg PO Q4H PRN PRN Reason: ITCHINESS Last Admin: 09/19/19 10:32 Dose: 25 mg Ferrous Sulfate (Feosol -) 325 mg PO BID [facility] Last Admin: 09/18/19 21:24 Dose: 325 mg Fluoxetine HCl (Prozac -) 20 mg PO DAILY [facility] Levetiracetam (Keppra -) 500 mg PO BID [facility] Last Admin: 09/19/19 10:30 Dose: Not Given Lidocaine/Prilocaine (Emla -) 1 applic TP DAILY PRN PRN Reason: DURING HD Last Admin: 09/19/19 10:32 Dose: 1 applic Melatonin (Melatonin) 5 mg PO HS PRN PRN Reason: INSOMNIA Last Admin: 09/18/19 21:24 Dose: 5 mg Ondansetron HCl (Zofran Injection) 4 mg IVPUSH Q6H PRN PRN Reason: NAUSEA AND/OR VOMITING Last Admin: 09/16/19 16:05 Dose: 4 mg Tamsulosin HCl (Flomax -) 0.4 mg PO DAILY@0830 [facility] Last Admin: 09/18/19 10:22 Dose: 0.4 mg Thiamine HCl (Vitamin B1 -) 100 mg PO DAILY [facility] Last Admin: 09/18/19 10:22 Dose: 100 mg - Objective Vital Signs: Vital Signs Temperature 98.0 F 09/19/19 11:15 Pulse Rate 65 09/19/19 13:20 Respiratory Rate 18 09/19/19 13:20 Blood Pressure 124/68 09/19/19 13:20 O2 Sat by Pulse Oximetry (%) 100 09/19/19 09:00 Constitutional: Yes: Calm Eyes: Yes: Conjunctiva Clear HENT: Yes: Atraumatic Neck: Yes: Supple Cardiovascular: Yes: S1, S2 Respiratory: Yes: CTA Bilaterally Gastrointestinal: Yes: Soft Genitourinary: Yes: WNL Musculoskeletal: Yes: WNL Edema: No Neurological: Yes: Oriented Psychiatric: Yes: Oriented Labs: CBC, BMP 09/19/19 11:15 09/19/19 11:15 INR, PTT INR 1.01 (0.83-1.09) 09/09/19 18:50 Problem List - Problems (1) ESRD (end stage renal disease) Code(s): N18.6 - END STAGE RENAL DISEASE (2) Alcoholic cirrhosis of liver without ascites Code(s): K70.30 - ALCOHOLIC CIRRHOSIS OF LIVER WITHOUT ASCITES (3) Missed dialysis Code(s): [id number] - Assessment/Plan Current Medications Generic Name Dose Route Start Last Admin Trade Name Freq PRN Reason Stop Dose Admin Acetaminophen 1,000 mg 09/14/19 19:19 09/19/19 12:28 Ofirmev Injection - IVPB 1,000 mg Q6H PRN Administration PAIN LEVEL 1-5 Amlodipine Besylate 10 mg 09/10/19 10:00 09/18/19 10:22 Norvasc - PO 10 mg DAILY [facility] Administration Clindamycin HCl 300 mg 09/15/19 00:00 09/19/19 05:49 Cleocin - PO 300 mg Q6HPO DEV Administration Diphenhydramine HCl 25 mg 09/17/19 18:49 09/19/19 10:32 Benadryl - PO 25 mg Q4H PRN Administration ITCHINESS Ferrous Sulfate 325 mg 09/17/19 10:30 09/18/19 21:24 Feosol - PO 325 mg BID DEV Administration Fluoxetine HCl 20 mg 09/19/19 10:00 Prozac - PO DAILY DEV Levetiracetam 500 mg 09/09/19 22:00 09/19/19 10:30 Keppra - PO Not Given BID DEV Lidocaine/Prilocaine 1 applic 09/19/19 08:16 09/19/19 10:32 Emla - TP 1 applic DAILY PRN Administration DURING HD Melatonin 5 mg 09/14/19 19:32 09/18/19 21:24 Melatonin PO 5 mg HS PRN Administration INSOMNIA Ondansetron HCl 4 mg 09/16/19 15:26 09/16/19 16:05 Zofran Injection IVPUSH 4 mg Q6H PRN Administration NAUSEA AND/OR VOMITING Tamsulosin HCl 0.4 mg 09/10/19 08:30 09/18/19 10:22 Flomax - PO 0.4 mg DAILY@0830 [facility] Administration Thiamine HCl 100 mg 09/10/19 10:00 09/18/19 10:22 Vitamin B1 - PO 100 mg DAILY [facility] Administration Impression 1. ESRD 2. htn 3. hx etoh abuse 4. liver cirrhosis with tips 5. anemia 6. pancytopenia with worsening leukopenia Plan - HD today - wbc is improved - cont epogen - pt not on heparin with HD - 4 :15 180 abf 400 3 k bath
[2019-09-19] MEDS: amLODIPine BESYLATE 10 MG TABLET (FP) PO SCH (15:37)
[2019-09-19] MEDS: THIAMINE HCL 100 MG TABLET (FP) PO SCH (15:38)
[2019-09-19] MEDS: FLUoxetine HCL 20 MG CAPSULE (FP) PO SCH (15:38)
[2019-09-19] MEDS: TAMSULOSIN HCL 0.4 MG CAP PO SCH (15:38)
--- NOTE | 2019-09-19 18:11 | PN ---
Progress Note, Physician History of Present Illness: doing well - Current Medication List Current Medications: Active Medications Acetaminophen (Ofirmev Injection -) 1,000 mg IVPB Q6H PRN PRN Reason: PAIN LEVEL 1-5 Last Admin: 09/19/19 12:28 Dose: 1,000 mg Amlodipine Besylate (Norvasc -) 10 mg PO DAILY [facility] Last Admin: 09/19/19 15:37 Dose: 10 mg Clindamycin HCl (Cleocin -) 300 mg PO Q6HPO [facility] Last Admin: 09/19/19 15:39 Dose: Not Given Diphenhydramine HCl (Benadryl -) 25 mg PO Q4H PRN PRN Reason: ITCHINESS Last Admin: 09/19/19 10:32 Dose: 25 mg Ferrous Sulfate (Feosol -) 325 mg PO BID [facility] Last Admin: 09/18/19 21:24 Dose: 325 mg Fluoxetine HCl (Prozac -) 20 mg PO DAILY [facility] Last Admin: 09/19/19 15:38 Dose: 20 mg Levetiracetam (Keppra -) 500 mg PO BID [facility] Last Admin: 09/19/19 10:30 Dose: Not Given Lidocaine/Prilocaine (Emla -) 1 applic TP DAILY PRN PRN Reason: DURING HD Last Admin: 09/19/19 10:32 Dose: 1 applic Melatonin (Melatonin) 5 mg PO HS PRN PRN Reason: INSOMNIA Last Admin: 09/18/19 21:24 Dose: 5 mg Ondansetron HCl (Zofran Injection) 4 mg IVPUSH Q6H PRN PRN Reason: NAUSEA AND/OR VOMITING Last Admin: 09/16/19 16:05 Dose: 4 mg Tamsulosin HCl (Flomax -) 0.4 mg PO DAILY@0830 [facility] Last Admin: 09/19/19 15:38 Dose: 0.4 mg Thiamine HCl (Vitamin B1 -) 100 mg PO DAILY [facility] Last Admin: 09/19/19 15:38 Dose: 100 mg - Objective Vital Signs: Vital Signs Temperature 97.9 F 09/19/19 14:30 Pulse Rate 70 09/19/19 15:47 Respiratory Rate 18 09/19/19 15:47 Blood Pressure 136/77 09/19/19 15:47 O2 Sat by Pulse Oximetry (%) 100 09/19/19 09:00 Constitutional: Yes: No Distress HENT: Yes: Atraumatic Neck: Yes: Supple Cardiovascular: Yes: Regular Rate and Rhythm Respiratory: Yes: CTA Bilaterally Gastrointestinal: Yes: Normal Bowel Sounds Extremities: Yes: WNL Edema: No Neurological: Yes: Alert, Oriented Labs: CBC, BMP 09/19/19 11:15 09/19/19 11:15 INR, PTT INR 1.01 (0.83-1.09) 09/09/19 18:50 Problem List - Problems (1) GI (gastrointestinal bleed) Assessment/Plan: fu h/h start protonix gi fu Code(s): K92.2 - GASTROINTESTINAL HEMORRHAGE, UNSPECIFIED (2) Missed dialysis Assessment/Plan: renal board on Hd Code(s): [id number] - (3) CKD (chronic kidney disease) Assessment/Plan: on hd Code(s): N18.9 - CHRONIC KIDNEY DISEASE, UNSPECIFIED (4) ESRD (end stage renal disease) on dialysis Code(s): N18.6 - END STAGE RENAL DISEASE; Z99.2 - DEPENDENCE ON RENAL DIALYSIS (5) Pancytopenia Assessment/Plan: due to cirrhosis d/w heme wbc count good today, can be dc home Code(s): D61.818 - OTHER PANCYTOPENIA
[2019-09-19] MEDS: MELATONIN 5 MG TABLETS PO PRN (21:55)
[2019-09-19] MEDS: PANTOPRAZOLE 40 MG TABLET (FP) PO SCH (21:56)
[2019-09-20] MEDS: CLINDAMYCIN HCL 150 MG CAPSULE (FP) PO SCH ×3 (00:18→12:55)
[2019-09-20] MEDS: ACETAMINOPHEN 325 MG TABLET (FP) PO PRN ×3 (00:18→22:00)
[2019-09-20] MEDS: diphenhydrAMINE HCL 25 MG CAPSULE (FP) PO PRN ×4 (05:20→22:01)
[2019-09-20] MEDS: TAMSULOSIN HCL 0.4 MG CAP PO SCH (08:51)
[2019-09-20] MEDS ORDERED: PT OWN MED DRAWER 7, Y5N ONE (09:26)
[2019-09-20] MEDS: FERROUS SO4 325 MG TABLET (FP) PO SCH ×2 (10:04→22:00)
[2019-09-20] MEDS: FLUoxetine HCL 20 MG CAPSULE (FP) PO SCH (10:04)
[2019-09-20] MEDS: THIAMINE HCL 100 MG TABLET (FP) PO SCH (10:04)
[2019-09-20] MEDS: PANTOPRAZOLE 40 MG TABLET (FP) PO SCH (10:04)
[2019-09-20] MEDS: amLODIPine BESYLATE 10 MG TABLET (FP) PO SCH (10:04)
[2019-09-20] MEDS: levETIRAcetam 500 MG TABLET (FP) PO SCH ×2 (10:05→22:01)
--- NOTE | 2019-09-20 12:30 | PN ---
Progress Note, Physician History of Present Illness: PULMONARY ALERT,OOB-CHAIR,-SOB,OCC CHEST TIGHTNESS - Current Medication List Current Medications: Active Medications Acetaminophen (Tylenol -) 650 mg PO Q6H PRN PRN Reason: FEVER Last Admin: 09/20/19 08:51 Dose: 650 mg Amlodipine Besylate (Norvasc -) 10 mg PO DAILY [facility] Last Admin: 09/20/19 10:04 Dose: 10 mg Clindamycin HCl (Cleocin -) 300 mg PO Q6HPO [facility] Last Admin: 09/20/19 05:20 Dose: 300 mg Diphenhydramine HCl (Benadryl -) 25 mg PO Q4H PRN PRN Reason: ITCHINESS Last Admin: 09/20/19 05:20 Dose: 25 mg Ferrous Sulfate (Feosol -) 325 mg PO BID [facility] Last Admin: 09/20/19 10:04 Dose: 325 mg Fluoxetine HCl (Prozac -) 20 mg PO DAILY [facility] Last Admin: 09/20/19 10:04 Dose: 20 mg Levetiracetam (Keppra -) 500 mg PO BID [facility] Last Admin: 09/20/19 10:05 Dose: 500 mg Lidocaine/Prilocaine (Emla -) 1 applic TP DAILY PRN PRN Reason: DURING HD Last Admin: 09/19/19 10:32 Dose: 1 applic Melatonin (Melatonin) 5 mg PO HS PRN PRN Reason: INSOMNIA Last Admin: 09/19/19 21:55 Dose: 5 mg Pantoprazole Sodium (Protonix -) 40 mg PO DAILY [facility] Last Admin: 09/20/19 10:04 Dose: 40 mg Tamsulosin HCl (Flomax -) 0.4 mg PO DAILY@0830 [facility] Last Admin: 09/20/19 08:51 Dose: 0.4 mg Thiamine HCl (Vitamin B1 -) 100 mg PO DAILY [facility] Last Admin: 09/20/19 10:04 Dose: 100 mg - Objective Vital Signs: Vital Signs Temperature 98.1 F 09/20/19 10:00 Pulse Rate 77 09/20/19 10:00 Respiratory Rate 18 09/20/19 10:00 Blood Pressure 144/77 09/20/19 10:00 O2 Sat by Pulse Oximetry (%) 99 09/20/19 09:00 Constitutional: Yes: Well Nourished, Calm Eyes: Yes: WNL HENT: Yes: WNL Neck: Yes: WNL Cardiovascular: Yes: Regular Rate and Rhythm, S1, S2 Respiratory: Yes: CTA Bilaterally Gastrointestinal: Yes: Normal Bowel Sounds, Soft Extremities: Yes: WNL Edema: No Labs: CBC, BMP 09/19/19 11:15 Problem List - Problems (1) Alcoholic cirrhosis of liver without ascites Code(s): K70.30 - ALCOHOLIC CIRRHOSIS OF LIVER WITHOUT ASCITES (2) Anemia Code(s): D64.9 - ANEMIA, UNSPECIFIED (3) ESRD (end stage renal disease) Code(s): N18.6 - END STAGE RENAL DISEASE (4) GI (gastrointestinal bleed) Code(s): K92.2 - GASTROINTESTINAL HEMORRHAGE, UNSPECIFIED (5) History of esophageal varices with bleeding Code(s): Z87.19 - PERSONAL HISTORY OF OTHER DISEASES OF THE DIGESTIVE SYSTEM (6) Missed dialysis Code(s): [id number] - (7) ESRD (end stage renal disease) on dialysis Code(s): N18.6 - END STAGE RENAL DISEASE; Z99.2 - DEPENDENCE ON RENAL DIALYSIS (8) Nicotine dependence Code(s): F17.200 - NICOTINE DEPENDENCE, UNSPECIFIED, UNCOMPLICATED Qualifiers: Nicotine product type: cigarettes Substance use status: uncomplicated Qualified Code(s): F17.210 - Nicotine dependence, cigarettes, uncomplicated Assessment/Plan A/P ESRD on HD Pancytopenia improving Cellulitis Liver Cirrhosis Anemia - HD per renal - monitor CBC - DVT prophylaxis DR HAMILTON
--- NOTE | 2019-09-20 13:24 | PN ---
Progress Note, Physician History of Present Illness: Pt seen and examined at bedside. He is awake and alert. He had abdominal discomfort this morning. - Current Medication List Current Medications: Active Medications Acetaminophen (Tylenol -) 650 mg PO Q6H PRN PRN Reason: FEVER Last Admin: 09/20/19 08:51 Dose: 650 mg Amlodipine Besylate (Norvasc -) 10 mg PO DAILY [facility] Last Admin: 09/20/19 10:04 Dose: 10 mg Clindamycin HCl (Cleocin -) 300 mg PO Q6HPO [facility] Last Admin: 09/20/19 12:55 Dose: 300 mg Diphenhydramine HCl (Benadryl -) 25 mg PO Q4H PRN PRN Reason: ITCHINESS Last Admin: 09/20/19 12:58 Dose: 25 mg Ferrous Sulfate (Feosol -) 325 mg PO BID [facility] Last Admin: 09/20/19 10:04 Dose: 325 mg Fluoxetine HCl (Prozac -) 20 mg PO DAILY [facility] Last Admin: 09/20/19 10:04 Dose: 20 mg Levetiracetam (Keppra -) 500 mg PO BID [facility] Last Admin: 09/20/19 10:05 Dose: 500 mg Lidocaine/Prilocaine (Emla -) 1 applic TP DAILY PRN PRN Reason: DURING HD Last Admin: 09/19/19 10:32 Dose: 1 applic Melatonin (Melatonin) 5 mg PO HS PRN PRN Reason: INSOMNIA Last Admin: 09/19/19 21:55 Dose: 5 mg Pantoprazole Sodium (Protonix -) 40 mg PO DAILY [facility] Last Admin: 09/20/19 10:04 Dose: 40 mg Tamsulosin HCl (Flomax -) 0.4 mg PO DAILY@0830 [facility] Last Admin: 09/20/19 08:51 Dose: 0.4 mg Thiamine HCl (Vitamin B1 -) 100 mg PO DAILY [facility] Last Admin: 09/20/19 10:04 Dose: 100 mg - Objective Vital Signs: Vital Signs Temperature 98.1 F 09/20/19 10:00 Pulse Rate 77 09/20/19 10:00 Respiratory Rate 18 09/20/19 10:00 Blood Pressure 144/77 09/20/19 10:00 O2 Sat by Pulse Oximetry (%) 99 09/20/19 09:00 Constitutional: Yes: Calm HENT: Yes: Atraumatic Neck: Yes: Supple Cardiovascular: Yes: S1, S2 Respiratory: Yes: CTA Bilaterally Gastrointestinal: Yes: Soft Genitourinary: Yes: WNL Musculoskeletal: Yes: WNL Extremities: Yes: WNL Edema: No Integumentary: Yes: WNL Neurological: Yes: Oriented Psychiatric: Yes: Oriented Labs: CBC, BMP 09/19/19 11:15 09/19/19 11:15 INR, PTT INR 1.01 (0.83-1.09) 09/09/19 18:50 Problem List - Problems (1) ESRD (end stage renal disease) Code(s): N18.6 - END STAGE RENAL DISEASE (2) Alcoholic cirrhosis of liver without ascites Code(s): K70.30 - ALCOHOLIC CIRRHOSIS OF LIVER WITHOUT ASCITES (3) Missed dialysis Code(s): [id number] - Assessment/Plan Current Medications Generic Name Dose Route Start Last Admin Trade Name Freq PRN Reason Stop Dose Admin Acetaminophen 650 mg 09/19/19 19:42 09/20/19 08:51 Tylenol - PO 650 mg Q6H PRN Administration FEVER Amlodipine Besylate 10 mg 09/10/19 10:00 09/20/19 10:04 Norvasc - PO 10 mg DAILY DEV Administration Clindamycin HCl 300 mg 09/15/19 00:00 09/20/19 12:55 Cleocin - PO 300 mg Q6HPO DEV Administration Diphenhydramine HCl 25 mg 09/17/19 18:49 09/20/19 12:58 Benadryl - PO 25 mg Q4H PRN Administration ITCHINESS Ferrous Sulfate 325 mg 09/17/19 10:30 09/20/19 10:04 Feosol - PO 325 mg BID DEV Administration Fluoxetine HCl 20 mg 09/19/19 10:00 09/20/19 10:04 Prozac - PO 20 mg DAILY DEV Administration Levetiracetam 500 mg 09/09/19 22:00 09/20/19 10:05 Keppra - PO 500 mg BID DEV Administration Lidocaine/Prilocaine 1 applic 09/19/19 08:16 09/19/19 10:32 Emla - TP 1 applic DAILY PRN Administration DURING HD Melatonin 5 mg 09/14/19 19:32 09/19/19 21:55 Melatonin PO 5 mg HS PRN Administration INSOMNIA Pantoprazole Sodium 40 mg 09/19/19 19:45 09/20/19 10:04 Protonix - PO 40 mg DAILY DEV Administration Tamsulosin HCl 0.4 mg 09/10/19 08:30 09/20/19 08:51 Flomax - PO 0.4 mg DAILY@0830 DEV Administration Thiamine HCl 100 mg 09/10/19 10:00 09/20/19 10:04 Vitamin B1 - PO 100 mg DAILY DEV Administration Impression 1. ESRD 2. htn 3. hx etoh abuse 4. liver cirrhosis with tips 5. anemia 6. pancytopenia with worsening leukopenia Plan - next Hd tomorrow - wbc improving - GI follow up - hg stable - cont epogen - pt not on heparin with HD - 4 :15 180 abf 400 3 k bath
--- NOTE | 2019-09-20 13:40 | PN.GI ---
GI Progress Note Subjective: Called because Mr. Martinez states that he had a black bowel movement last night No BM today Complains of feeling bloated with cramps Iron started 09/17 by renal Fluoxetine started 09/19 Per psych On clindamycin Per ID Colonoscopy led to the removal of a tubular adenoma. 5 year follow-up suggested - Objective Vital Signs: Vital Signs Temperature 98.1 F 09/20/19 10:00 Pulse Rate 77 09/20/19 10:00 Respiratory Rate 18 09/20/19 10:00 Blood Pressure 144/77 09/20/19 10:00 O2 Sat by Pulse Oximetry (%) 99 09/20/19 09:00 Constitutional: Calm Eyes: Yes: Sclera Icterus (Mild) Cardiovascular: Yes: Regular Rate and Rhythm. No: Murmur Gastrointestinal Inspection: No: Distention ...Auscultate: Yes: Normoactive Bowel Sounds ...Palpate: Yes: Soft. No: Hepatomegaly, Splenomegaly, Tenderness ...Rectal Exam: Yes: Other (No external lesions, no masses, no blood/melena. trace urban liquid stool) Edema: No (Trace RLE edema) Neurological: Yes: Alert Labs: CBC, BMP 09/19/19 11:15 09/19/19 11:15 INR, PTT INR 1.01 (0.83-1.09) 09/09/19 18:50 Problem List - Problems (1) GI (gastrointestinal bleed) Assessment/Plan: Recent EGD / colonoscopy. No overt bleeding. light urban stool noted on STEFANI Continue protonix 20mg once day given EGD finiding for total 6 weeks Repeat CBC ordered Ordered repeat hepatic panel given finding of questionable mid scleral icterus on exam Code(s): K92.2 - GASTROINTESTINAL HEMORRHAGE, UNSPECIFIED (2) Dyspepsia Assessment/Plan: suspect multifactorial including addition of oral iron, clindamycin and fluoxetine Medication elimnation as feasible per prescribing physicians Code(s): R10.13 - EPIGASTRIC PAIN (3) Leg swelling Assessment/Plan: right leg asymmetric compared with left with some edema. Evaluation per PMD Code(s): M79.89 - OTHER SPECIFIED SOFT TISSUE DISORDERS
--- NOTE | 2019-09-20 13:42 | PN ---
Progress Note, Physician History of Present Illness: stable no new issues - Current Medication List Current Medications: Active Medications Acetaminophen (Tylenol -) 650 mg PO Q6H PRN PRN Reason: FEVER Last Admin: 09/20/19 08:51 Dose: 650 mg Amlodipine Besylate (Norvasc -) 10 mg PO DAILY [facility] Last Admin: 09/20/19 10:04 Dose: 10 mg Diphenhydramine HCl (Benadryl -) 25 mg PO Q4H PRN PRN Reason: ITCHINESS Last Admin: 09/20/19 12:58 Dose: 25 mg Epoetin Kendall (Epogen -) 14,000 unit IVPUSH ONCE ONE Stop: 09/21/19 13:27 Ferrous Sulfate (Feosol -) 325 mg PO BID [facility] Last Admin: 09/20/19 10:04 Dose: 325 mg Fluoxetine HCl (Prozac -) 20 mg PO DAILY [facility] Last Admin: 09/20/19 10:04 Dose: 20 mg Sodium Chloride (Normal Saline -) 250 mls @ 3,000 mls/hr IV PRN PRN PRN Reason: Hypotension during Dialysis Stop: 09/21/19 13:27 Levetiracetam (Keppra -) 500 mg PO BID [facility] Last Admin: 09/20/19 10:05 Dose: 500 mg Lidocaine/Prilocaine (Emla -) 1 applic TP DAILY PRN PRN Reason: DURING HD Last Admin: 09/19/19 10:32 Dose: 1 applic Melatonin (Melatonin) 5 mg PO HS PRN PRN Reason: INSOMNIA Last Admin: 09/19/19 21:55 Dose: 5 mg Pantoprazole Sodium (Protonix -) 40 mg PO DAILY [facility] Last Admin: 09/20/19 10:04 Dose: 40 mg Tamsulosin HCl (Flomax -) 0.4 mg PO DAILY@0830 [facility] Last Admin: 09/20/19 08:51 Dose: 0.4 mg Thiamine HCl (Vitamin B1 -) 100 mg PO DAILY [facility] Last Admin: 09/20/19 10:04 Dose: 100 mg - Objective Vital Signs: Vital Signs Temperature 98.1 F 09/20/19 10:00 Pulse Rate 77 09/20/19 10:00 Respiratory Rate 18 09/20/19 10:00 Blood Pressure 144/77 09/20/19 10:00 O2 Sat by Pulse Oximetry (%) 99 10/25/19 09:00 Constitutional: Yes: No Distress, Calm Cardiovascular: Yes: S1, S2 Respiratory: Yes: Regular, CTA Bilaterally Gastrointestinal: Yes: Normal Bowel Sounds, Soft Musculoskeletal: Yes: Other Extremities: Yes: Erythema (resolved), Other Neurological: Yes: Alert, Oriented Psychiatric: Yes: Alert, Oriented Labs: CBC, BMP 09/19/19 11:15 09/19/19 11:15 INR, PTT INR 1.01 (0.83-1.09) 09/09/19 18:50 Assessment/Plan Problem List - Problems (1) GI (gastrointestinal bleed) Code(s): K92.2 - GASTROINTESTINAL HEMORRHAGE, UNSPECIFIED (2) Missed dialysis Code(s): [id number] - (3) CKD (chronic kidney disease) Assessment/Plan: on hd Code(s): N18.9 - CHRONIC KIDNEY DISEASE, UNSPECIFIED (4) ESRD (end stage renal disease) on dialysis Code(s): N18.6 - END STAGE RENAL DISEASE; Z99.2 - DEPENDENCE ON RENAL DIALYSIS (5) Pancytopenia Code(s): D61.818 - OTHER PANCYTOPENIA 6 cellulitis of the hand with boil plan will stop abx rest as per the team
[2019-09-20 13:50] LABS: HEMATOCRIT 27.3 % (35.4-49); HEMOGLOBIN 8.9 GM/dL (11.7-16.9); MCH 30.5 pg (25.7-33.7); MCHC 32.7 g/dl (32.0-35.9); MEAN CELL VOLUME 93.3 fl (80-96); MEAN PLT VOLUME 8.8 fl (7.5-11.1); PLATELET COUNT 63 K/MM3 (134-434); RBC 2.92 M/mm3 (4.00-5.60); RDW 19.5 % (11.9-15.9); WHITE BLOOD COUNT 2.7 K/mm3 (4.0-10.0)
[2019-09-20 14:33] LABS: ALBUMIN 2.8 g/dl (3.4-5.0); BILIRUBIN,DIRECT 0.2 mg/dL (0.0-0.2); BILIRUBIN,TOTAL 0.5 mg/dL (0.2-1)
[2019-09-20] MEDS: MELATONIN 5 MG TABLETS PO PRN (22:00)
[2019-09-21] MEDS ORDERED: ACETAMINOPHEN 500 MG TABLET (FP) PO PRN (00:16)
--- NOTE | 2019-09-21 00:19 | PN ---
Progress Note, Physician History of Present Illness: no bm yet had a dark bm early in the morning today - Current Medication List Current Medications: Active Medications Acetaminophen (Tylenol -) 1,000 mg PO Q6H PRN PRN Reason: PAIN Amlodipine Besylate (Norvasc -) 10 mg PO DAILY [facility] Last Admin: 09/20/19 10:04 Dose: 10 mg Diphenhydramine HCl (Benadryl -) 25 mg PO Q4H PRN PRN Reason: ITCHINESS Last Admin: 09/20/19 22:01 Dose: 25 mg Epoetin Kendall (Epogen -) 14,000 unit IVPUSH ONCE ONE Stop: 09/21/19 13:27 Ferrous Sulfate (Feosol -) 325 mg PO BID [facility] Last Admin: 09/20/19 22:00 Dose: 325 mg Fluoxetine HCl (Prozac -) 20 mg PO DAILY [facility] Last Admin: 09/20/19 10:04 Dose: 20 mg Sodium Chloride (Normal Saline -) 250 mls @ 3,000 mls/hr IV PRN PRN PRN Reason: Hypotension during Dialysis Stop: 09/21/19 13:27 Levetiracetam (Keppra -) 500 mg PO BID [facility] Last Admin: 09/20/19 22:01 Dose: 500 mg Lidocaine/Prilocaine (Emla -) 1 applic TP DAILY PRN PRN Reason: DURING HD Last Admin: 09/19/19 10:32 Dose: 1 applic Melatonin (Melatonin) 5 mg PO HS PRN PRN Reason: INSOMNIA Last Admin: 09/20/19 22:00 Dose: 5 mg Pantoprazole Sodium (Protonix -) 20 mg PO DAILY [facility] Tamsulosin HCl (Flomax -) 0.4 mg PO DAILY@0830 [facility] Last Admin: 09/20/19 08:51 Dose: 0.4 mg Thiamine HCl (Vitamin B1 -) 100 mg PO DAILY [facility] Last Admin: 09/20/19 10:04 Dose: 100 mg - Objective Vital Signs: Vital Signs Temperature 98.0 F 09/20/19 20:45 Pulse Rate 79 09/20/19 20:45 Respiratory Rate 18 09/20/19 21:00 Blood Pressure 147/84 09/20/19 20:45 O2 Sat by Pulse Oximetry (%) 99 09/20/19 21:00 Constitutional: Yes: Anxious HENT: Yes: Atraumatic Neck: Yes: Supple Cardiovascular: Yes: Regular Rate and Rhythm Respiratory: Yes: CTA Bilaterally Gastrointestinal: Yes: Normal Bowel Sounds Extremities: Yes: WNL Edema: No Neurological: Yes: Alert, Oriented Labs: CBC, BMP 09/20/19 13:42 09/19/19 11:15 INR, PTT INR 1.01 (0.83-1.09) 09/09/19 18:50 Problem List - Problems (1) GI (gastrointestinal bleed) Assessment/Plan: h/h improved no bm as per RN pt said he had dark bm in am Code(s): K92.2 - GASTROINTESTINAL HEMORRHAGE, UNSPECIFIED (2) Missed dialysis Code(s): [id number] - (3) CKD (chronic kidney disease) Code(s): N18.9 - CHRONIC KIDNEY DISEASE, UNSPECIFIED (4) ESRD (end stage renal disease) on dialysis Code(s): N18.6 - END STAGE RENAL DISEASE; Z99.2 - DEPENDENCE ON RENAL DIALYSIS (5) Pancytopenia Code(s): D61.818 - OTHER PANCYTOPENIA
[2019-09-21] MEDS ORDERED: diphenhydrAMINE HCL 25 MG CAPSULE (FP) PO ONE (00:26)
[2019-09-21] MEDS: diphenhydrAMINE HCL 25 MG CAPSULE (FP) PO PRN ×2 (07:59→14:14)
[2019-09-21 08:42] LABS: HEMATOCRIT 26.1 % (35.4-49); HEMOGLOBIN 8.8 GM/dL (11.7-16.9); MCH 30.7 pg (25.7-33.7); MCHC 33.5 g/dl (32.0-35.9); MEAN CELL VOLUME 91.7 fl (80-96); MEAN PLT VOLUME 9.1 fl (7.5-11.1); PLATELET COUNT 79 K/MM3 (134-434); RBC 2.85 M/mm3 (4.00-5.60); RDW 19.2 % (11.9-15.9); WHITE BLOOD COUNT 3.3 K/mm3 (4.0-10.0)
[2019-09-21] MEDS ORDERED: SODIUM CHLORIDE 250 ML IV PRN (09:00)
[2019-09-21] MEDS ORDERED: EPOETIN ALFA 20,000 UNIT/1 ML VIAL IVPUSH ONE (09:00)
[2019-09-21 09:03] LABS: BLOOD UREA NITROGEN 35.1 mg/dL (7-18); CALCIUM 7.8 mg/dL (8.5-10.1); CREATININE 4.7 mg/dL (0.55-1.3); POTASSIUM 3.5 mmol/L (3.5-5.1)
[2019-09-21] MEDS ORDERED: PANTOPRAZOLE 20 MG TABLET (FP) PO SCH (10:00)
[2019-09-21 12:44] VITALS: BP 133/68; PULSE 66; TEMP 97.6
[2019-09-21] MEDS: THIAMINE HCL 100 MG TABLET (FP) PO SCH (14:14)
[2019-09-21] MEDS: amLODIPine BESYLATE 10 MG TABLET (FP) PO SCH (14:14)
[2019-09-21] MEDS: FERROUS SO4 325 MG TABLET (FP) PO SCH (14:14)
[2019-09-21] MEDS: TAMSULOSIN HCL 0.4 MG CAP PO SCH (14:14)
[2019-09-21] MEDS ORDERED: PT OWN MED DRAWER 7, Y5N ONE (14:16)
[2019-09-21] MEDS: FLUoxetine HCL 20 MG CAPSULE (FP) PO SCH (14:17)
[2019-09-21] MEDS: levETIRAcetam 500 MG TABLET (FP) PO SCH (14:17)
--- NOTE | 2019-09-21 14:38 | PN ---
Progress Note, Physician History of Present Illness: Pt seen and examined at bedside. He is awake and alert. He tolerated HD. He is eager to go home. - Current Medication List Current Medications: Active Medications Acetaminophen (Tylenol -) 1,000 mg PO Q6H PRN PRN Reason: PAIN Last Admin: 09/21/19 11:02 Dose: 1,000 mg Amlodipine Besylate (Norvasc -) 10 mg PO DAILY [facility] Last Admin: 09/21/19 14:14 Dose: 10 mg Diphenhydramine HCl (Benadryl -) 25 mg PO Q6H PRN PRN Reason: ITCHINESS Last Admin: 09/21/19 14:14 Dose: 25 mg Ferrous Sulfate (Feosol -) 325 mg PO BID [facility] Last Admin: 09/21/19 14:14 Dose: 325 mg Fluoxetine HCl (Prozac -) 20 mg PO DAILY [facility] Last Admin: 09/21/19 14:17 Dose: 20 mg Levetiracetam (Keppra -) 500 mg PO BID [facility] Last Admin: 09/21/19 14:17 Dose: 500 mg Lidocaine/Prilocaine (Emla -) 1 applic TP DAILY PRN PRN Reason: DURING HD Last Admin: 09/19/19 10:32 Dose: 1 applic Melatonin (Melatonin) 5 mg PO HS PRN PRN Reason: INSOMNIA Last Admin: 09/20/19 22:00 Dose: 5 mg Pantoprazole Sodium (Protonix -) 20 mg PO DAILY [facility] Last Admin: 09/21/19 14:14 Dose: 20 mg Tamsulosin HCl (Flomax -) 0.4 mg PO DAILY@0830 [facility] Last Admin: 09/21/19 14:14 Dose: 0.4 mg Thiamine HCl (Vitamin B1 -) 100 mg PO DAILY [facility] Last Admin: 09/21/19 14:14 Dose: 100 mg - Objective Vital Signs: Vital Signs Temperature 97.6 F 09/21/19 12:43 Pulse Rate 66 09/21/19 12:43 Respiratory Rate 18 09/21/19 12:43 Blood Pressure 133/68 09/21/19 12:43 O2 Sat by Pulse Oximetry (%) 99 09/20/19 21:00 Constitutional: Yes: Calm Eyes: Yes: Conjunctiva Clear HENT: Yes: Atraumatic Neck: Yes: Supple Cardiovascular: Yes: S1, S2 Respiratory: Yes: CTA Bilaterally Gastrointestinal: Yes: Soft Genitourinary: Yes: WNL Musculoskeletal: Yes: WNL Edema: No Neurological: Yes: Oriented Psychiatric: Yes: Oriented Labs: CBC, BMP 09/21/19 08:25 09/21/19 08:25 INR, PTT INR 1.01 (0.83-1.09) 09/09/19 18:50 Problem List - Problems (1) ESRD (end stage renal disease) Code(s): N18.6 - END STAGE RENAL DISEASE (2) Alcoholic cirrhosis of liver without ascites Code(s): K70.30 - ALCOHOLIC CIRRHOSIS OF LIVER WITHOUT ASCITES (3) Missed dialysis Code(s): [id number] - Assessment/Plan Current Medications Generic Name Dose Route Start Last Admin Trade Name Freq PRN Reason Stop Dose Admin Acetaminophen 1,000 mg 09/21/19 00:16 09/21/19 11:02 Tylenol - PO 1,000 mg Q6H PRN Administration PAIN Amlodipine Besylate 10 mg 09/10/19 10:00 09/21/19 14:14 Norvasc - PO 10 mg DAILY DEV Administration Diphenhydramine HCl 25 mg 09/21/19 00:27 09/21/19 14:14 Benadryl - PO 25 mg Q6H PRN Administration ITCHINESS Ferrous Sulfate 325 mg 09/17/19 10:30 09/21/19 14:14 Feosol - PO 325 mg BID DEV Administration Fluoxetine HCl 20 mg 09/19/19 10:00 09/21/19 14:17 Prozac - PO 20 mg DAILY DEV Administration Levetiracetam 500 mg 09/09/19 22:00 09/21/19 14:17 Keppra - PO 500 mg BID DEV Administration Lidocaine/Prilocaine 1 applic 09/19/19 08:16 09/19/19 10:32 Emla - TP 1 applic DAILY PRN Administration DURING HD Melatonin 5 mg 09/14/19 19:32 09/20/19 22:00 Melatonin PO 5 mg HS PRN Administration INSOMNIA Pantoprazole Sodium 20 mg 09/21/19 10:00 09/21/19 14:14 Protonix - PO 20 mg DAILY DEV Administration Tamsulosin HCl 0.4 mg 09/10/19 08:30 09/21/19 14:14 Flomax - PO 0.4 mg DAILY@0830 DEV Administration Thiamine HCl 100 mg 09/10/19 10:00 09/21/19 14:14 Vitamin B1 - PO 100 mg DAILY DEV Administration Impression 1. ESRD 2. htn 3. hx etoh abuse 4. liver cirrhosis with tips 5. anemia 6. pancytopenia with worsening leukopenia Plan - pt tolerated HD today - He has HD set up as outpt - wbc improved - hg stable - cont epogen - pt not on heparin with HD - 4 :15 180 abf 400 3 k bath
--- NOTE | 2019-09-21 14:40 | PN ---
Progress Note, Physician History of Present Illness: Pt states he feels well. No dark stools noted to day. - Current Medication List Current Medications: Active Medications Acetaminophen (Tylenol -) 1,000 mg PO Q6H PRN PRN Reason: PAIN Last Admin: 09/21/19 11:02 Dose: 1,000 mg Amlodipine Besylate (Norvasc -) 10 mg PO DAILY [facility] Last Admin: 09/21/19 14:14 Dose: 10 mg Diphenhydramine HCl (Benadryl -) 25 mg PO Q6H PRN PRN Reason: ITCHINESS Last Admin: 09/21/19 14:14 Dose: 25 mg Ferrous Sulfate (Feosol -) 325 mg PO BID [facility] Last Admin: 09/21/19 14:14 Dose: 325 mg Fluoxetine HCl (Prozac -) 20 mg PO DAILY [facility] Last Admin: 09/21/19 14:17 Dose: 20 mg Levetiracetam (Keppra -) 500 mg PO BID [facility] Last Admin: 09/21/19 14:17 Dose: 500 mg Lidocaine/Prilocaine (Emla -) 1 applic TP DAILY PRN PRN Reason: DURING HD Last Admin: 09/19/19 10:32 Dose: 1 applic Melatonin (Melatonin) 5 mg PO HS PRN PRN Reason: INSOMNIA Last Admin: 09/20/19 22:00 Dose: 5 mg Pantoprazole Sodium (Protonix -) 20 mg PO DAILY [facility] Last Admin: 09/21/19 14:14 Dose: 20 mg Tamsulosin HCl (Flomax -) 0.4 mg PO DAILY@0830 [facility] Last Admin: 09/21/19 14:14 Dose: 0.4 mg Thiamine HCl (Vitamin B1 -) 100 mg PO DAILY [facility] Last Admin: 09/21/19 14:14 Dose: 100 mg - Objective Vital Signs: Vital Signs Temperature 97.6 F 09/21/19 12:43 Pulse Rate 66 09/21/19 12:43 Respiratory Rate 18 09/21/19 12:43 Blood Pressure 133/68 09/21/19 12:43 O2 Sat by Pulse Oximetry (%) 99 09/20/19 21:00 Constitutional: Yes: No Distress, Calm Cardiovascular: Yes: Regular Rate and Rhythm Respiratory: Yes: Regular Gastrointestinal: Yes: Normal Bowel Sounds, Soft Extremities: Yes: Erythema (resolved) Labs: CBC, BMP 09/21/19 08:25 09/21/19 08:25 INR, PTT INR 1.01 (0.83-1.09) 09/09/19 18:50 Problem List - Problems (1) Alcoholic cirrhosis of liver without ascites Code(s): K70.30 - ALCOHOLIC CIRRHOSIS OF LIVER WITHOUT ASCITES (2) Anemia Code(s): D64.9 - ANEMIA, UNSPECIFIED (3) ESRD (end stage renal disease) Code(s): N18.6 - END STAGE RENAL DISEASE (4) Missed dialysis Code(s): [id number] - (5) CHF (congestive heart failure) Code(s): I50.9 - HEART FAILURE, UNSPECIFIED Qualifiers: Heart failure type: diastolic (6) ESRD (end stage renal disease) on dialysis Code(s): N18.6 - END STAGE RENAL DISEASE; Z99.2 - DEPENDENCE ON RENAL DIALYSIS (7) History of cirrhosis of liver Code(s): Z87.19 - PERSONAL HISTORY OF OTHER DISEASES OF THE DIGESTIVE SYSTEM (8) Thrombocytopenia Code(s): D69.6 - THROMBOCYTOPENIA, UNSPECIFIED Assessment/Plan Cellulitis - resolved ESRD on HD Liver Cirrhosis ETOH abuse -- s/p course of antibiotics afebrile, without distress States he had normal BM today
== END 2019-09-21 15:04 | disposition home or self-care (01) | DRG 380 ==
LOC: JER 16:18 → JERBED 20:30 → J4S 09-10 16:18 → J5S 09-20 19:59
PROVIDERS: ADMIT Internal Medicine; ATTEND Internal Medicine
PROC: 30233N1 Transfusion of Nonautologous Red Blood Cells into Peripheral Vein, Percutaneous Approach (ICD-10-PCS; 2019-09-09)
PROC: 0DB78ZX Excision of Stomach, Pylorus, Via Natural or Artificial Opening Endoscopic, Diagnostic (ICD-10-PCS; principal; 2019-09-11 12:30)
PROC: 0DBM8ZX Excision of Descending Colon, Via Natural or Artificial Opening Endoscopic, Diagnostic (ICD-10-PCS; 2019-09-12)
PROC: 0DBL8ZX Excision of Transverse Colon, Via Natural or Artificial Opening Endoscopic, Diagnostic (ICD-10-PCS; 2019-09-12)
PROC: 0DBP8ZX Excision of Rectum, Via Natural or Artificial Opening Endoscopic, Diagnostic (ICD-10-PCS; 2019-09-12)
DX: K22.11 Ulcer of esophagus with bleeding (principal); N18.6 End stage renal disease; F10.24 Alcohol dependence with alcohol-induced mood disorder; I12.0 Hypertensive chronic kidney disease with stage 5 chronic kidney disease or end stage renal disease; D61.818 Other pancytopenia; L03.114 Cellulitis of left upper limb; K92.2 Gastrointestinal hemorrhage, unspecified; E78.5 Hyperlipidemia, unspecified; K70.30 Alcoholic cirrhosis of liver without ascites; G43.909 Migraine, unspecified, not intractable, without status migrainosus; D13.9 Benign neoplasm of ill-defined sites within the digestive system; F32.9 Major depressive disorder, single episode, unspecified; F32.89 Other specified depressive episodes; M79.89 Other specified soft tissue disorders; R10.13 Epigastric pain; E87.70 Fluid overload, unspecified; K80.20 Calculus of gallbladder without cholecystitis without obstruction; D64.9 Anemia, unspecified; Z99.2 Dependence on renal dialysis; Z87.19 Personal history of other diseases of the digestive system; Z86.59 Personal history of other mental and behavioral disorders
CPT/HCPCS: 36415; 36430; 36511; 71045-TC-FY; 71250-TC; 72050-TC-FY; 72100-TC-FY; 74176-TC; 80048; 80053; 80076; 81003; 82105; 82140; 82272; 82565; 82607; 82728; 82747; 83540; 83550; 83735; 84100; 84520; 85014; 85025; 85027; 85044; 85610; 85730; 86704; 86706; 86707; 86708; 86709; 86803; 86850; 86900; 86901; 86922; 87040; 87086; 87340; 88305-TC; 93005; 93010; 93970-TC; 99285-25; J0131; J0885; P9038; P9058

== ENCOUNTER 2019-10-15 10:39 | Inpatient (IN) | payer OTHER ==
[2019-10-15] MEDS ORDERED: SODIUM CHLORIDE 1,000 ML IV SCH (10:45)
[2019-10-15 11:12] LABS: BASO % 0.8 % (0-2.0); EOS % 2.8 % (0-4.5); HEMOGLOBIN 11.6 GM/dL (11.7-16.9); LYMPH % 8.6 % (8-40); MCHC 33.1 g/dl (32.0-35.9); MEAN CELL VOLUME 93.6 fl (80-96); MEAN PLT VOLUME 10.4 fl (7.5-11.1); MONO % 6.2 % (3.8-10.2); NEUT % 81.6 % (42.8-82.8); PLATELET COUNT 77 K/MM3 (134-434); RBC 3.74 M/mm3 (4.00-5.60); RDW 16.6 % (11.9-15.9); WHITE BLOOD COUNT 4.1 K/mm3 (4.0-10.0)
--- NOTE | 2019-10-15 11:21 | PDOC ---
History of Present Illness - General Chief Complaint: Altered Mental Status Stated Complaint: Altered Mental Status Time Seen by Provider: 10/15/19 10:48 - History of Present Illness Initial Comments: Randy Martinez is a 49yo man with a PMH of HTN, HLD, NIDDM, ESRD (on HD TThSa), alcoholic cirrhosis s/p TIPS, depression who presents to the ED as a code christopher from dialysis today. Per the dialysis center, staff were rounding at 9:30 and noticed altered mental status. It is not known exactly when he was last well. Mr Martinez declines to participate with exam, only stating "nothing" in response to questions. Past History - Past Medical History Allergies/Adverse Reactions: Allergies Allergy/AdvReac Type Severity Reaction Status Date / Time piperacillin Allergy Severe Swelling Verified 10/15/19 10:41 shellfish derived Allergy Severe Swelling Verified 10/15/19 10:41 latex Allergy Mild Rash Verified 10/15/19 10:41 Home Medications: Ambulatory Orders Multivitamin [One Daily] 1 each PO DAILY #30 tablet 09/27/17 Amlodipine Besylate [Norvasc -] 10 mg PO DAILY #30 tab 05/08/18 Furosemide [Lasix -] 40 mg PO BID@0600,1400 #60 tablet 05/08/18 Lactulose (Oral Use) [Cephulac -] 20 gm PO BID #1800 ml 05/08/18 Tamsulosin HCl [Flomax -] 0.4 mg PO DAILY@0830 #30 cap.er.24h 05/08/18 hydrOXYzine HCL [Atarax -] 50 mg PO Q6H PRN #360 tablet 05/08/18 Acetaminophen [Tylenol .Regular Strength -] 650 mg PO Q6H PRN tablet 07/08/18 Thiamine HCl [Vitamin B1 -] 100 mg PO DAILY #30 tablet 07/08/18 Spironolactone [Aldactone -] 50 mg PO DAILY #30 tablet 07/10/18 levETIRAcetam [Keppra -] 500 mg PO DAILY 07/09/19 Folic Acid 1 mg PO DAILY #30 tablet 07/10/19 Clindamycin [Cleocin -] 300 mg PO Q6HPO #20 capsule 09/19/19 Pantoprazole Sodium [Protonix] 40 mg PO DAILY #30 tablet.dr 09/19/19 Carvedilol [Coreg -] 25 mg PO BID 10/15/19 Ferric Citrate [Auryxia] 2 tab PO AC 10/15/19 Magnesium Oxide [Magox 400] 400 mg PO DAILY 10/15/19 Rifaximin [Xifaxan] 550 mg PO TID 10/15/19 Anemia: No Asthma: No Cancer: No Cardiac Disorders: Yes CVA: No COPD: No CHF: No Dementia: No Diabetes: Yes Dialysis: Yes GI Disorders: Yes (cirrhosis etoh abuse) Disorders: No HTN: Yes Hypercholesterolemia: No Kidney Stones: No Liver Disease: Yes (CIRRHOSIS OF LIVER) Psychiatric Problems: Yes (DEPRESSION, ANXEITY) Seizures: No Thyroid Disease: No - Surgical History Abdominal Surgery: No Appendectomy: No Cardiac Surgery: No Cholecystectomy: No Lung Surgery: No Neurologic Surgery: No Orthopedic Surgery: Yes (right shoulder due to dislocation 6 years ago) - Reproductive History Testicular Surgery: No - Immunization History Immunization Up to Date: Yes - Psycho Social/Smoking Cessation Hx Smoking Status: No Smoking History: Unknown if ever smoked Have you smoked in the past 12 months: Yes Number of Cigarettes Smoked Daily: 2 If you are a former smoker, when did you quit?: 2010 Cigars Per Day: 0 'Breaking Loose' booklet given: 02/22/18 Hx Alcohol Use: No Drug/Substance Use Hx: No Substance Use Type: None Hx Substance Use Treatment: No Review of Systems - Review of Systems Comments:: Patient declined to respond *Physical Exam - Vital Signs Last Vital Signs Temp Pulse Resp BP Pulse Ox 97 H 18 165/79 99 10/15/19 10:40 10/15/19 10:40 10/15/19 10:40 10/15/19 10:40 - Physical Exam Comments: General: In no acute distress HEENT: Atraumatic, PERRL, EOMI, MMM, voice normal Cards: RRR, no murmur appreciated Pulm: Comfortable on room air, clear to auscultation bilaterally Abd: Soft, nontender, nondistended Ext: Atraumatic. No LE edema. WWP. Moves all extremities Skin: Normal color, no rashes or lesions Neuro: Awake and alert, oriented x0, CN grossly intact, states only "nothing", motor/sensory grossly intact and symmetric ED Treatment Course - LABORATORY CBC & Chemistry Diagram: 10/15/19 10:40 10/15/19 10:40 Medical Decision Making - Medical Decision Making 10/15/19 11:14 Randy Martinez is a 49yo man with a PMH of HTN, HLD, NIDDM, ESRD (on HD TThSa), alcoholic cirrhosis s/p TIPS, depression who presents to the ED from dialysis with acute onset of AMS this morning, noted at 9:30am during dialysis. Exact time last well unknown. - Code christopher called in dialysis but no focal deficits appreciated on initial exam in ED. Pt awake, alert, sitting up with arms crossed but does not participate with exam or provide history - CT head completed prior to evaluation. Negative for acute pathology. - Possible TIA/CVA with expressive aphasia as inappropriate responses are only significant finding on exam. Stroke workup ordered - Adding ammonia level due to h/o cirrhosis 10/15/19 12:54 - Labs notable for ammonia 87. Otherwise without concerning abnormalities; at pts baseline - Dr Sparks contacted by Dr Chavez. Recommending treatment for elevated ammonia - Clinically unchanged. Per chart review, PMD is Dr Ward, in Dr Farnsworth's group. Page to Shantanu Wall for admission 10/15/19 13:33 - Sign out given to Shantanu Wall. Will admit to Dr Farnsworth's service on telemetry /stroke floor. - Consults for neurology, nephrology, cardiology placed per request of admitting team Discussed with Dr Scott Cui PGY2 Discharge - Discharge Information Problems reviewed: Yes Clinical Impression/Diagnosis: Altered mental status Qualifiers: Altered mental status type: unspecified Qualified Code(s): R41.82 - Altered mental status, unspecified Condition: Stable - Admission Yes - Follow up/Referral - Patient Discharge Instructions - Post Discharge Activity
[2019-10-15 11:27] LABS: INR 1.09 (0.83-1.09); PROTHROMBIN TIME (PATIENT) 12.9 SEC (9.7-13.0)
--- NOTE | 2019-10-15 11:27 | PDOC ---
Attending Attestation - Resident Resident Name: BasiliaBarbara - ED Attending Attestation I have performed the following: I have examined & evaluated the patient, The case was reviewed & discussed with the resident, I agree w/resident's findings & plan, Exceptions are as noted - HPI HPI: 10/15/19 11:40 Mr. Martinez is a 49 year old man with PMH of HTN, HLD, NIDDM, CKD (on HD T/R/Sat) , cirrhosis 2/2 chronic alcohol abuse (s/p TIPS), depression, multiple UGI bleed requiring esophageal varices banding and tranfusions who presents from dialysis sure to altered mental status This patient is largely unable to provide historical information Apparently he went to dialysis at 5 am At 9:30 the attending physician was rounding on all the patients and noted that Mr. Martinez seemed confused It is unclear exactly when the symptoms started Allergies: penicillin, shellfish, NKDA PCP: Ed Renal: Wil ([facility]) Meds: ? Clindamycin Xifaxan Lasix 40mg daily Pantoprazole Tamsulosin Lactulose 30ml BID prn Xifaxan Keppra Hydralazine Amlodipine Levothyroxine 10/15/19 12:14 - Physicial Exam PE: 10/15/19 11:45 GENERAL: The patient is in no acute distress, seated up in stretcher. HEENT: No visible head trauma, EOMI, ? scleral icterus, PERRLA, no tongue fasciculations Ears normal, nares patent, oropharynx clear without exudates. Moist mucous membranes. NECK: Normal range of motion, supple, no nuchal rigidity, no midline tenderness LUNGS: Breath sounds equal, clear to auscultation bilaterally. No wheezes, and no crackles. HEART: Regular rate and rhythm, normal S1 and S2 without murmur, rub or gallop. ABDOMEN: Soft, nontender, normoactive bowel sounds. EXTREMITIES: Normal range of motion, no edema. NEUROLOGICAL: Cranial nerves II through XII grossly intact. Face is symmetrical. Normal speech - no dysarthria. Pt is repeating answers to my questions, ?aphasia SKIN: Warm, Dry, normal turgor, no rashes or lesions noted. - Critical Care Time Total Critical Care Time: 60 Critical Care Statement: The care of this patient involved high complexity decision making to prevent further life threatening deterioration of the patient 's condition and/or to evaluate & treat vital organ system(s) failure or risk of failure. - Medical Decision Making 10/15/19 11:51 49 yo M presenting to the ER from HD due to altered mental status DD is broad and includes: CVA (aphasia), ICH, effect of medication/drug, underlying infection, severe depression, hepatic encephalopathy, seizure with post ictal state Will do: Labs EKG CT head EKG: Normal sinus rhythm, rate of 93 bpm, axis is normal, intervals are abnormal-IL: 138ms, QRS: 80 8m, s, QTC is prolonged: 502ms. No ST elevations, no ST depressions, T waves are upright, 10/15/19 11:54 Pt presents with unclear neurological presentation Given unclear neurologic examination and unclear time of onset, pt is NOT a TPA candidate His presentation in fact seems most likely to be 2/2 toxic metabolic derangement Laboratory Tests 09/21/19 10/15/19 10/15/19 08:25 10:40 10:40 WBC 3.3 L Hgb 8.8 L Hct 26.1 L Plt Count 79 L D INR 1.09 Sodium Potassium Chloride Carbon Dioxide BUN Creatinine Random Glucose Creatine Kinase 121 Troponin I < 0.02 10/15/19 10/15/19 10:40 10:40 WBC 4.1 Hgb 11.6 L Hct 35.0 L D Plt Count 77 L INR Sodium 133 L Potassium 4.9 Chloride 102 Carbon Dioxide 24 BUN 13.7 Creatinine 3.3 H Random Glucose 131 H Creatine Kinase Troponin I 10/15/19 12:10 Laboratory Tests 10/15/19 11:10 Ammonia 87.50 H 10/15/19 12:18 Unclear patient's medication compliance Will order lactulose 10/15/19 12:34 Pt seen in the ER by Dr. Sparks Will admit Clinical impression: hepatic encephalopathy, initial presentation altered mental status, initial presentation NIH Stroke Scale - Last Known Well Date/Time & Onset Date Last Known Well: 10/15/19 Time Last Known Well: 05:30 - Initial Evaluation Level of consciousness: Alert Ask patient the month and their age: Both incorrect Ask patient to open & close eyes; make fist and let go: Obeys both correctly Best gaze (horizontal eye movement): Normal Visual field testing: No visual field loss Facial paresis (Show teeth/raise eyebrows/close eyes tight): Normal symmetrical movement Motor Function: Left Arm: Normal Motor Function: Right Arm: Normal (extends arm 90 (or 45) degrees for 10 seconds without drift Motor Function: Left Leg: Normal (extends leg 30 degrees for 5 seconds without drift) Motor Function: Right Leg: Normal (extends leg 30 degrees for 5 seconds without drift) Limb Ataxia: No ataxia Sensory(Use pinprick test arms,legs,trunk,face/side to side): Normal Best language (Describe picture, name items, read sentences): Mild to moderate aphasia Dysarthria (read several words): Normal articulation Extinction and Inattention: No abnormality - Total Score NIH Stroke Scale Score: 3
[2019-10-15 11:29] LABS: ACTIVATED PTT 34.1 SECONDS (25.2-36.5)
--- NOTE | 2019-10-15 11:47 | EKG ---
Test Reason : Blood Pressure : / mmHG Vent. Rate : 093 BPM Atrial Rate : 093 BPM P-R Int : 138 ms QRS Dur : 088 ms QT Int : 404 ms P-R-T Axes : 017 013 062 degrees QTc Int : 502 ms NORMAL SINUS RHYTHM MINIMAL VOLTAGE CRITERIA FOR LVH, MAY BE NORMAL VARIANT PROLONGED QT ABNORMAL ECG Confirmed by MD JESUS MANUEL, PAUL ([id number]) on 10/15/2019 11:47:18 AM Referred By: Confirmed By:PAUL KEN MD
[2019-10-15 11:48] LABS: ALBUMIN 3.6 g/dl (3.4-5.0); BILIRUBIN,TOTAL 0.7 mg/dL (0.2-1); BLOOD UREA NITROGEN 13.7 mg/dL (7-18); CALCIUM 9.1 mg/dL (8.5-10.1); CREATININE 3.3 mg/dL (0.55-1.3); POTASSIUM 4.9 mmol/L (3.5-5.1); TOT PROT 7.8 g/dl (6.4-8.2)
[2019-10-15] MEDS ORDERED: LACTULOSE 20 GM/30 ML UDC (FOR ORAL USE ONLY) PO ONE (12:18)
[2019-10-15] MEDS ORDERED: LACTULOSE 20 GM/30 ML UDC (FOR ORAL USE ONLY) ONE (12:21)
--- NOTE | 2019-10-15 14:40 | CONSULT ---
Consult Consult Specialty:: Nephrology Reason for Consultation:: ESRD - History of Present Illness Chief Complaint: sent in from HD for confusion History of Present Illness: Pt is a 49 year old male with pmhx of htn, hld, dm, esrd TTS, liver cirrhosis secondary to etoh, gi bleed, tips, and depression who was sent in from HD for altered mental status. He did complete his HD session today. He was found to be confused and incoherent. He responds to his name but is not able to answer any questions. He was found to have an elevated ammonia level. 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 fall after seizre or hypertensive hemorrhage) Cardio/Vascular: Yes: HTN, Hyperlipdemia Gastrointestinal: Yes: GI Bleed (multiple esophageal variceal bleed and banding before TIPS was placed at [facility]), Other (colon polyp removed by Dr De La Torre at [facility] ?) Hepatobiliary: Yes: Cirrhosis Renal/: Yes: Renal Inusuff, Hematuria, Hemodialysis Psych: Yes: Addictions (alcohol, previously cocaine and marijuana), Depression, Other (attempted suicide) Endocrine: Yes: Diabetes Mellitus - Past Surgical History Past Surgical History: Yes: Arthrosocopy (left knee), Colonoscopy, Upper Endoscopy - Alcohol/Substance Use Hx Alcohol Use: No History of Substance Use: reports: Cocaine (snorted), Marijuana - Smoking History Smoking history: Unknown if ever smoked Have you smoked in the past 12 months: Yes Aproximately how many cigarettes per day: 2 If you are a former smoker, when did you quit?: 2010 - Social History Usual Living Arrangement: Alone ADL: Support Services 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 History of Recent Travel: No Home Medications - Allergies Allergies/Adverse Reactions: Allergies Allergy/AdvReac Type Severity Reaction Status Date / Time piperacillin Allergy Severe Swelling Verified 10/15/19 10:41 shellfish derived Allergy Severe Swelling Verified 10/15/19 10:41 latex Allergy Mild Rash Verified 10/15/19 10:41 - Home Medications Home Medications: Ambulatory Orders Multivitamin [One Daily] 1 each PO DAILY #30 tablet 09/27/17 Amlodipine Besylate [Norvasc -] 10 mg PO DAILY #30 tab 05/08/18 Furosemide [Lasix -] 40 mg PO BID@0600,1400 #60 tablet 05/08/18 Lactulose (Oral Use) [Cephulac -] 20 gm PO BID #1800 ml 05/08/18 Tamsulosin HCl [Flomax -] 0.4 mg PO DAILY@0830 #30 cap.er.24h 05/08/18 hydrOXYzine HCL [Atarax -] 50 mg PO Q6H PRN #360 tablet 05/08/18 Acetaminophen [Tylenol .Regular Strength -] 650 mg PO Q6H PRN tablet 07/08/18 Thiamine HCl [Vitamin B1 -] 100 mg PO DAILY #30 tablet 07/08/18 Spironolactone [Aldactone -] 50 mg PO DAILY #30 tablet 07/10/18 levETIRAcetam [Keppra -] 500 mg PO BID 07/09/19 Folic Acid 1 mg PO DAILY #30 tablet 07/10/19 Clindamycin [Cleocin -] 300 mg PO Q6HPO #20 capsule 09/19/19 Pantoprazole Sodium [Protonix] 40 mg PO DAILY #30 tablet.dr 09/19/19 Carvedilol [Coreg -] 25 mg PO BID 10/15/19 Ferric Citrate [Auryxia] 2 tab PO AC 10/15/19 Magnesium Oxide [Magox 400] 400 mg PO DAILY 10/15/19 Rifaximin [Xifaxan] 550 mg PO TID 10/15/19 Family Medical History Family History: Unable to Obtain Review of Systems Unable to obtain ROS, reason: confused Physical Exam Vital Signs: Vital Signs Temperature Pulse Rate 87 10/15/19 13:04 Respiratory Rate 16 10/15/19 11:11 Blood Pressure 146/78 10/15/19 11:11 O2 Sat by Pulse Oximetry (%) 100 10/15/19 13:04 Constitutional: Yes: Calm Cardiovascular: Yes: S1, S2 Respiratory: Yes: CTA Bilaterally Gastrointestinal: Yes: Soft Renal/: Yes: WNL Musculoskeletal: Yes: WNL Edema: No Integumentary: Yes: WNL Neurological: Yes: Confusion Labs: CBC, BMP 10/15/19 10:40 10/15/19 10:40 Imaging - Results Chest X-ray: Report Reviewed Cat Scan: Report Reviewed Problem List - Problems (1) Altered mental status, unspecified Code(s): R41.82 - ALTERED MENTAL STATUS, UNSPECIFIED Qualifiers: Altered mental status type: unspecified Qualified Code(s): R41.82 - Altered mental status, unspecified (2) ESRD (end stage renal disease) on dialysis Code(s): N18.6 - END STAGE RENAL DISEASE; Z99.2 - DEPENDENCE ON RENAL DIALYSIS Assessment/Plan Current Medications Generic Name Dose Route Start Last Admin Trade Name Freq PRN Reason Stop Dose Admin Heparin Sodium (Porcine) 5,000 unit 10/15/19 22:00 Heparin - SQ BID DEV Laboratory Tests 10/15/19 11:10 Ammonia 87.50 H Impression 1. ESRD 2. htn 3. hx etoh abuse 4. liver cirrhosis with tips 5. anemia 6. change in mental status Plan - ct head neg - ammonia level elevated - pt did get hd today - next HD on - 4 :15 180 abf 400 3 k bath
--- NOTE | 2019-10-15 15:03 | HP ---
Admitting History and Physical - Primary Care Physician PCP: Rene Wrad - Admission Chief Complaint: Acute change in mental status History of Present Illness: Patient is a 49 y/o male with past medical history of HTN, HLD, NIDDM, CKD on HD (), Cirrhosis secondary to chronic ETOH abuse s/p TIPS, depression, multiple UGI bleeds needing esophageal varice banding. Patient presented to [facility] ER from HD Center where there was an acute change in mental status. Patient is poor historian, when asked what brought him to the ER he was not sure the reason. He is alert and oriented to name and location, on date he believes it is 2011. 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 fall after seizre or hypertensive hemorrhage) Cardiovascular: Yes: HTN, Hyperlipdemia Gastrointestinal: Yes: GI Bleed (multiple esophageal variceal bleed and banding before TIPS was placed at [facility]), Other (colon polyp removed by Dr De La Torre at [facility] ?) Hepatobiliary: Yes: Cirrhosis Renal/: Yes: Renal Inusuff, Hematuria, Hemodialysis Heme/Onc: Yes: Anemia Psych: Yes: Addictions (alcohol, previously cocaine and marijuana), Depression, Other (attempted suicide) Endocrine: Yes: Diabetes Mellitus - Past Surgical History Past Surgical History: Yes: Arthrosocopy (left knee), Colonoscopy, Upper Endoscopy - Smoking History Smoking history: Unknown if ever smoked Have you smoked in the past 12 months: Yes Aproximately how many cigarettes per day: 2 If you are a former smoker, when did you quit?: 2010 - Alcohol/Substance Use Hx Alcohol Use: No History of Substance Use: reports: Cocaine (snorted), Marijuana - Social History ADL: Support Services 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 History of Recent Travel: No Home Medications - Allergies Allergies/Adverse Reactions: Allergies Allergy/AdvReac Type Severity Reaction Status Date / Time piperacillin Allergy Severe Swelling Verified 10/15/19 10:41 shellfish derived Allergy Severe Swelling Verified 10/15/19 10:41 latex Allergy Mild Rash Verified 10/15/19 10:41 - Home Medications Home Medications: Ambulatory Orders Multivitamin [One Daily] 1 each PO DAILY #30 tablet 09/27/17 Amlodipine Besylate [Norvasc -] 10 mg PO DAILY #30 tab 05/08/18 Furosemide [Lasix -] 40 mg PO BID@0600,1400 #60 tablet 05/08/18 Lactulose (Oral Use) [Cephulac -] 20 gm PO BID #1800 ml 05/08/18 Tamsulosin HCl [Flomax -] 0.4 mg PO DAILY@0830 #30 cap.er.24h 05/08/18 hydrOXYzine HCL [Atarax -] 50 mg PO Q6H PRN #360 tablet 05/08/18 Acetaminophen [Tylenol .Regular Strength -] 650 mg PO Q6H PRN tablet 07/08/18 Thiamine HCl [Vitamin B1 -] 100 mg PO DAILY #30 tablet 07/08/18 Spironolactone [Aldactone -] 50 mg PO DAILY #30 tablet 07/10/18 levETIRAcetam [Keppra -] 500 mg PO BID 07/09/19 Folic Acid 1 mg PO DAILY #30 tablet 07/10/19 Clindamycin [Cleocin -] 300 mg PO Q6HPO #20 capsule 09/19/19 Pantoprazole Sodium [Protonix] 40 mg PO DAILY #30 tablet.dr 09/19/19 Carvedilol [Coreg -] 25 mg PO BID 10/15/19 Ferric Citrate [Auryxia] 2 tab PO AC 10/15/19 Magnesium Oxide [Magox 400] 400 mg PO DAILY 10/15/19 Rifaximin [Xifaxan] 550 mg PO TID 10/15/19 Review of Systems - Review of Systems Constitutional: reports: No Symptoms Eyes: reports: No Symptoms HENT: reports: No Symptoms Neck: reports: No Symptoms Cardiovascular: reports: No Symptoms Respiratory: reports: No Symptoms Gastrointestinal: reports: No Symptoms Genitourinary: reports: No Symptoms Breasts: reports: No Symptoms Reported Musculoskeletal: reports: No Symptoms Integumentary: reports: No Symptoms Neurological: reports: No Symptoms Endocrine: reports: No Symptoms Hematology/Lymphatic: reports: No Symptoms Psychiatric: reports: No Symptoms Physical Examination Vital Signs: Vital Signs Temperature Pulse Rate 77 10/15/19 14:41 Respiratory Rate 15 10/15/19 14:41 Blood Pressure 137/67 10/15/19 14:41 O2 Sat by Pulse Oximetry (%) 100 10/15/19 14:41 Constitutional: Yes: No Distress, Calm Eyes: Yes: Conjunctiva Clear, EOM Intact HENT: Yes: Atraumatic Neck: Yes: Supple Cardiovascular: Yes: Regular Rate and Rhythm Respiratory: Yes: Regular, CTA Bilaterally Gastrointestinal: Yes: Normal Bowel Sounds, Soft Musculoskeletal: Yes: Muscle Weakness (R side upper and lower extremity) Extremities: Yes: WNL Edema: No Neurological: Yes: Alert, Oriented (to person and place), Aphasia, Confusion, Weakness (R side weakness upper and lower extremity), Other (no facial droop, no slurred speech) Psychiatric: Yes: Alert, Oriented (to person and place) Labs: CBC, BMP 10/15/19 10:40 10/15/19 10:40 Imaging - Results Cat Scan: Report Reviewed Problem List - Problems (1) Alcoholic cirrhosis of liver without ascites Assessment/Plan: -AST 43, Alk Phos 133 -Abdominal US -GI consult -ammonia 87.5 Code(s): K70.30 - ALCOHOLIC CIRRHOSIS OF LIVER WITHOUT ASCITES (2) Anemia Assessment/Plan: -Hg 11.6 -monitor Hg daily -monitor Hg and transfuse for Hg <7.0 -Anemia Profile -Stool OB Code(s): D64.9 - ANEMIA, UNSPECIFIED (3) ESRD (end stage renal disease) on dialysis Assessment/Plan: -Renal consult -BUN/Cr 13.7/3.3 -Renal diet -continue HD on scheduled days Code(s): N18.6 - END STAGE RENAL DISEASE; Z99.2 - DEPENDENCE ON RENAL DIALYSIS (4) Diabetes 1.5, managed as type 1 Assessment/Plan: -BGM ACHS -ISS -HgA1c Code(s): E13.9 - OTHER SPECIFIED DIABETES MELLITUS WITHOUT COMPLICATIONS (5) Essential hypertension Assessment/Plan: -Hydralazine TID -Coreg BID -Amlodipine -low Na diet Code(s): I10 - ESSENTIAL (PRIMARY) HYPERTENSION (6) Hypercholesterolemia Assessment/Plan: -lipid panel reviewed Code(s): E78.0 - PURE HYPERCHOLESTEROLEMIA * DO NOT USE * (7) Altered mental status, unspecified Assessment/Plan: -Neurology and Cardiology consult -Head CT scan shows 2 right tomi holes, mild to moderate volume loss and ventricular dilatation, no gross acute intracranial pathology -Carotid US -Brain MRI -tele monitoring -neuro checks q4h -Ammonia level 87.5~received Lactulose Code(s): R41.82 - ALTERED MENTAL STATUS, UNSPECIFIED Qualifiers: Altered mental status type: unspecified Qualified Code(s): R41.82 - Altered mental status, unspecified Assessment/Plan see problem list dvt ppx
[2019-10-15] MEDS ORDERED: FERRIC CITRATE PO SCH (15:45)
[2019-10-15] MEDS: INSULIN SLIDING SCALE (NOVOLOG) 1 VIAL SQ SCH ×2 (16:49→21:42)
--- NOTE | 2019-10-15 19:52 | CONSULT ---
Consult - text type - Consultation Consultation Note: NEUROLOGY CONSULT GREATLY APPRECIATED: Events reviewed and discussed with 4W nursing staff, Papo LIGHT and Brandin ENGLAND. Pt examined. CT reviewed. This 49 yo man with multiple medical problems ETOH-related cirrhosis and ESRD had speech and cognition at HD this AM. S/P Craniotomy for unknown reasons. On leveteracitam 500 mg BID for seizure disorders. CT of the head (reviewed): Shows mild diffuse atrophy and subcortical microvascular changes. Carotid duplex doppler: mod R non-occlusive ICA plaque without sig hemodynamic changes. Ammonia level= 87.5mg% ISREAL: S/P R Jayden hole. Well Healed scalp scars. Neck supple. No bruits. Cor rapid (90s) reg. Afebrile. NEURO: Awake, alert, cooperative. Inappropriate affect. No frontal release findings. Fluent speech, follows 3 step commands. Confused. Perseverates "[place]" but Ox to [facility]. CNII-CNXII: Full bradley. Full EOM's without nystagmus. No facial. Gag ok. Motor: No drift or tremor. Prominent asterixis. Brisk reflexes including AJ's. Toes downgoing. Coordination: No FTN dystaxia. Sensation: Withdraws all fours to pinch. Impression: Non-focal Neurological Examination Toxic-Metabolic Encephalopathy (hepatic) more likely than aphasia. Cannot exclude post-ictal state. Cannot exclude TIA. Plan: Gentle hydration. Lactulose rx. R/O GI bleed. Follow ammonia level. Continue leveteracitam 500 mg BID Await MRI (images not yet posted) Thank you very much, Brady Adam MD
[2019-10-15] MEDS: CARVEDILOL 25 MG TABLET (FP) PO SCH (21:42)
[2019-10-15] MEDS: hydrALAZINE HCL 50 MG TABLET (FP) PO SCH (21:42)
[2019-10-15] MEDS: LACTULOSE 20 GM/30 ML UDC (FOR ORAL USE ONLY) PO SCH (21:42)
[2019-10-15] MEDS: levETIRAcetam 500 MG TABLET (FP) PO SCH (21:42)
[2019-10-15] MEDS: ROSUVASTATIN CA 5 MG TABLET (FP) PO SCH (21:42)
[2019-10-15] MEDS ORDERED: HEPARIN NA (PORCINE) 5,000 UNITS/ML 1ML VIAL SQ SCH (22:00)
[2019-10-15 22:40] VITALS: BMI 26.6
[2019-10-16] MEDS: hydrALAZINE HCL 50 MG TABLET (FP) PO SCH ×3 (05:32→21:42)
[2019-10-16] MEDS: FUROSEMIDE 40 MG TABLET (FP) PO SCH ×2 (05:32→15:00)
[2019-10-16] MEDS: INSULIN SLIDING SCALE (NOVOLOG) 1 VIAL SQ SCH ×4 (06:05→22:17)
[2019-10-16] MEDS: LEVOTHYROXINE NA 50 MCG TABLET (FP) PO SCH (06:05)
[2019-10-16 07:02] LABS: EOS % 9.1 % (0-4.5); HEMATOCRIT 30.4 % (35.4-49); HEMOGLOBIN 10.4 GM/dL (11.7-16.9); LYMPH % 17.8 % (8-40); MCH 31.2 pg (25.7-33.7); MEAN CELL VOLUME 91.6 fl (80-96); MEAN PLT VOLUME 9.9 fl (7.5-11.1); MONO % 10.7 % (3.8-10.2); NEUT % 61.4 % (42.8-82.8); PLATELET COUNT 90 K/MM3 (134-434); RBC 3.32 M/mm3 (4.00-5.60); RDW 16.4 % (11.9-15.9); WHITE BLOOD COUNT 4.5 K/mm3 (4.0-10.0)
[2019-10-16 07:35] LABS: ALBUMIN 3.3 g/dl (3.4-5.0); ALK PHOS 111 U/L (45-117); ANION GAP 8 MMOL/L (8-16); BILIRUBIN,TOTAL 1.5 mg/dL (0.2-1); BLOOD UREA NITROGEN 24.3 mg/dL (7-18); CHLORIDE 103 mmol/L (98-107); CHOLESTEROL 124 mg/dL (50-200); CO2 24 mmol/L (21-32); CREATININE 5.7 mg/dL (0.55-1.3); GLUCOSE,RANDOM 75 mg/dL (74-106); HDL CHOLESTEROL 62 mg/dL (40-60); LDL CHOLESTEROL (ONLY SJRH) 52 mg/dL (5-100); MAGNESIUM 2.4 mg/dL (1.8-2.4); PHOSPHOROUS 4.6 mg/dL (2.5-4.9); POTASSIUM 4.3 mmol/L (3.5-5.1); SGOT/AST 16 U/L (15-37); SGPT/ALT 15 U/L (13-61); SODIUM 135 mmol/L (136-145); TOT PROT 6.7 g/dl (6.4-8.2); TRIGLYCERIDES 81 mg/dL (0-150)
--- NOTE | 2019-10-16 10:08 | CON.GI ---
Consult Consult Specialty:: Gastroenterology Referred by:: Dr. Farnsworth Reason for Consultation:: Altered mental status - History of Present Illness History of Present Illness: 49yo male h/o etoh/cirrhosis, esophageal varices s/p TIPS, ESRD on HD, seizure disorder, craniotomy (details unclear) presenting with altered mental status. Pt following with hepatology at [facility], most recently admitted to [facility] in 08/2019 with black stools and anemia s/p EGD revealing small esophageal ulcer, gastric biopsies showing chronic gastritis (HP negative), no esophageal varices seen. Colonoscopy revealing one tubular adenoma. No interval hepatology follow up. Pt does not recall reason for admission, last remembers being at home, does not remember going to HD yesterday though was noted to have developed altered mentation while at dialysis. States he cares for himself and does not miss his medications. Currently feeling well, denies abdominal pain, n/v, fever/chills. Denies increase in abdominal girth or LE edema. Takes lactulose as needed, reports bm 2-3x daily, no blood. States last had ETOH 1 year ago. Denies recreational drug use. 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 fall after seizre or hypertensive hemorrhage) Cardio/Vascular: Yes: HTN, Hyperlipdemia Gastrointestinal: Yes: GI Bleed (multiple esophageal variceal bleed and banding before TIPS was placed at [facility]), Other (colon polyp removed by Dr De La Torre at [facility] ?) Hepatobiliary: Yes: Cirrhosis Renal/: Yes: Renal Inusuff, Hematuria, Hemodialysis Psych: Yes: Addictions (alcohol, previously cocaine and marijuana), Depression, Other (attempted suicide) Endocrine: Yes: Diabetes Mellitus - Past Surgical History Past Surgical History: Yes: Arthrosocopy (left knee), Colonoscopy, Upper Endoscopy - Alcohol/Substance Use Hx Alcohol Use: Yes (QUIT 1 YEAR AGO) History of Substance Use: reports: Cocaine (snorted), Marijuana - Smoking History Smoking history: Current every day smoker Have you smoked in the past 12 months: Yes Aproximately how many cigarettes per day: 3 If you are a former smoker, when did you quit?: 2010 - Social History Usual Living Arrangement: Alone ADL: Support Services 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 History of Recent Travel: No Home Medications - Allergies Allergies/Adverse Reactions: Allergies Allergy/AdvReac Type Severity Reaction Status Date / Time piperacillin Allergy Severe Swelling Verified 10/15/19 10:41 shellfish derived Allergy Severe Swelling Verified 10/15/19 10:41 latex Allergy Mild Rash Verified 10/15/19 10:41 - Home Medications Home Medications: Ambulatory Orders Multivitamin [One Daily] 1 each PO DAILY #30 tablet 09/27/17 Amlodipine Besylate [Norvasc -] 10 mg PO DAILY #30 tab 05/08/18 Furosemide [Lasix -] 40 mg PO BID@0600,1400 #60 tablet 05/08/18 Lactulose (Oral Use) [Cephulac -] 20 gm PO BID #1800 ml 05/08/18 Tamsulosin HCl [Flomax -] 0.4 mg PO DAILY@0830 #30 cap.er.24h 05/08/18 hydrOXYzine HCL [Atarax -] 50 mg PO Q6H PRN #360 tablet 05/08/18 Acetaminophen [Tylenol .Regular Strength -] 650 mg PO Q6H PRN tablet 07/08/18 Thiamine HCl [Vitamin B1 -] 100 mg PO DAILY #30 tablet 07/08/18 Spironolactone [Aldactone -] 50 mg PO DAILY #30 tablet 07/10/18 levETIRAcetam [Keppra -] 500 mg PO BID 07/09/19 Folic Acid 1 mg PO DAILY #30 tablet 07/10/19 Clindamycin [Cleocin -] 300 mg PO Q6HPO #20 capsule 09/19/19 Pantoprazole Sodium [Protonix] 40 mg PO DAILY #30 tablet.dr 09/19/19 Carvedilol [Coreg -] 25 mg PO BID 10/15/19 Ferric Citrate [Auryxia] 2 tab PO AC 10/15/19 Magnesium Oxide [Magox 400] 400 mg PO DAILY 10/15/19 Rifaximin [Xifaxan] 550 mg PO TID 10/15/19 Review of Systems - Review of Systems Constitutional: reports: No Symptoms Cardiovascular: reports: No Symptoms Respiratory: reports: No Symptoms Gastrointestinal: reports: No Symptoms Neurological: reports: No Symptoms, Other (alert/oriented on my evaluation) Physical Exam-GI Vital Signs: Vital Signs Temperature 98.0 F 10/16/19 06:00 Pulse Rate 62 11/20/19 06:00 Respiratory Rate 18 10/16/19 06:00 Blood Pressure 118/64 10/16/19 06:00 O2 Sat by Pulse Oximetry (%) 99 10/15/19 22:21 Constitutional: Yes: Well Nourished, No Distress, Calm, Other (alert/oriented x 3) Cardiovascular: Yes: WNL, Regular Rate and Rhythm Respiratory: Yes: WNL, Regular, CTA Bilaterally ...Palpate: Yes: Other (Abd soft, nt, nd, no appreciable ascites) Edema: No Labs: CBC, BMP 10/16/19 05:40 10/16/19 05:40 INR, PTT INR 1.09 (0.83-1.09) 10/15/19 10:40 Imaging - Results Cat Scan: Report Reviewed Problem List - Problems (1) Cirrhosis of liver Assessment/Plan: 49yo male h/o etoh/cirrhosis, esophageal varices s/p TIPS, ESRD on HD, seizure disorder, craniotomy (details unclear) presenting with altered mental status. Clinically now improved. Hb stable no overt bleeding. Unclear precipitant, neuro workup also in progress without acute findings. MELD 23. -Recommend complete infectious workup including urine and blood cultures r/o infectious precipitant -Check abd US (no appreciable ascites on exam) -Daily MELD labs including LFTs and PT/INR -Lactulose 20g tid/prn titrate to 2-3 loose bms -May add rifaximin pending workup -Diet as tolerated (2gNA) -EGD in 03/2019 without varices without urgency for repeat at this time with stable Hb and absence of overt bleed -Colonoscopy in 03/2019 revealing one tubular adenoma advised repeat in 5 years for polyp surveillance (unless new symptoms in the interim) -Further recommendations/dialysis per nephrology -Neuro workup in progress -Pt will need to resume follow up with hepatology at [facility] with Dr. De La Torre Code(s): K74.60 - UNSPECIFIED CIRRHOSIS OF LIVER
[2019-10-16] MEDS: amLODIPine BESYLATE 10 MG TABLET (FP) PO SCH (10:16)
[2019-10-16] MEDS: CARVEDILOL 25 MG TABLET (FP) PO SCH ×2 (10:16→21:42)
[2019-10-16] MEDS: MAGNESIUM OXIDE 400 MG TABLET (FP) PO SCH (10:16)
[2019-10-16] MEDS: levETIRAcetam 500 MG TABLET (FP) PO SCH ×2 (10:16→21:43)
[2019-10-16] MEDS: MULTIVITAMINS (DAILY MVI) TABLET (FP) PO SCH (10:16)
[2019-10-16] MEDS: PANTOPRAZOLE 40 MG TABLET (FP) PO SCH (10:16)
[2019-10-16] MEDS: THIAMINE HCL 100 MG TABLET (FP) PO SCH (10:17)
[2019-10-16] MEDS: TAMSULOSIN HCL 0.4 MG CAP PO SCH (10:17)
[2019-10-16] MEDS: FOLIC ACID 1 MG TABLET (FP) PO SCH (10:17)
[2019-10-16] MEDS: LACTULOSE 20 GM/30 ML UDC (FOR ORAL USE ONLY) PO SCH ×2 (10:36→21:43)
--- NOTE | 2019-10-16 11:39 | PN ---
Progress Note, Physician Chief Complaint: AMS Liver cirrhosis History of Present Illness: NAD in bed alert, mental status improved Returned from [facility]/S liver Had not been taking his lactulose regularly at home - Current Medication List Current Medications: Active Medications Amlodipine Besylate (Norvasc -) 10 mg PO DAILY REPLACED BY [facility] Last Admin: 10/16/19 10:16 Dose: 10 mg Carvedilol (Coreg -) 25 mg PO BID REPLACED BY [facility] Last Admin: 10/16/19 10:16 Dose: 25 mg Folic Acid (Folic Acid -) 1 mg PO DAILY REPLACED BY [facility] Last Admin: 10/16/19 10:17 Dose: 1 mg Furosemide (Lasix -) 40 mg PO BID@0600,1400 REPLACED BY [facility] Last Admin: 10/16/19 05:32 Dose: Not Given Hydralazine HCl (Apresoline -) 50 mg PO TID REPLACED BY [facility] Last Admin: 10/16/19 05:32 Dose: Not Given Insulin Aspart (Novolog Vial Sliding Scale -) 1 vial SQ [facility] REPLACED BY [facility]; Protocol Last Admin: 10/16/19 06:05 Dose: Not Given Lactulose (Cephulac (Oral Use)) 20 gm PO BID REPLACED BY [facility] Last Admin: 10/16/19 10:36 Dose: 20 gm Levetiracetam (Keppra -) 500 mg PO BID REPLACED BY [facility] Last Admin: 10/16/19 10:16 Dose: 500 mg Levothyroxine Sodium (Synthroid -) 50 mcg PO DAILY@0700 REPLACED BY [facility] Last Admin: 10/16/19 06:05 Dose: Not Given Magnesium Oxide (Mag-Ox -) 400 mg PO DAILY REPLACED BY [facility] Last Admin: 10/16/19 10:16 Dose: 400 mg Multivitamins/Minerals/Vitamin C (Tab-A-Vit -) 1 tab PO DAILY REPLACED BY [facility] Last Admin: 10/16/19 10:16 Dose: 1 tab Non-Formulary Medication (Ferric Citrate [Auryxia]) 2 tab PO AC REPLACED BY [facility] Pantoprazole Sodium (Protonix -) 40 mg PO DAILY REPLACED BY [facility] Last Admin: 10/16/19 10:16 Dose: 40 mg Rosuvastatin Calcium (Crestor -) 5 mg PO HS REPLACED BY [facility] Last Admin: 10/15/19 21:42 Dose: 5 mg Tamsulosin HCl (Flomax -) 0.4 mg PO DAILY@0830 REPLACED BY [facility] Last Admin: 10/16/19 10:17 Dose: 0.4 mg Thiamine HCl (Vitamin B1 -) 100 mg PO DAILY DEV Last Admin: 10/16/19 10:17 Dose: 100 mg - Objective Vital Signs: Vital Signs Temperature 97.4 F L 10/16/19 10:00 Pulse Rate 76 10/16/19 10:00 Respiratory Rate 18 10/16/19 10:00 Blood Pressure 109/56 L 10/16/19 10:00 O2 Sat by Pulse Oximetry (%) 99 10/15/19 22:21 Constitutional: Yes: Well Nourished, No Distress, Calm Cardiovascular: Yes: Regular Rate and Rhythm Respiratory: Yes: Regular Gastrointestinal: Yes: Normal Bowel Sounds, Soft Genitourinary: Yes: WNL Musculoskeletal: Yes: Muscle Weakness Extremities: Yes: WNL Edema: No Peripheral Pulses WNL: Yes Neurological: Yes: Alert, Oriented Psychiatric: Yes: Alert, Oriented Labs: CBC, BMP 10/16/19 05:40 10/16/19 05:40 INR, PTT INR 1.09 (0.83-1.09) 10/15/19 10:40 Problem List - Problems (1) Altered mental status, unspecified Assessment/Plan: -MRI brain/Head CT negative unremarkable -likely 2/2 metabolic -monitor ammonia levels -Lactulose to have at least 2-3 BM's/day -Neurology consult pending Problems reviewed: Yes Code(s): R41.82 - ALTERED MENTAL STATUS, UNSPECIFIED Qualifiers: Altered mental status type: unspecified Qualified Code(s): R41.82 - Altered mental status, unspecified (2) Cirrhosis of liver Assessment/Plan: -GI consult Problems reviewed: Yes Code(s): K74.60 - UNSPECIFIED CIRRHOSIS OF LIVER (3) ESRD on dialysis Assessment/Plan: -Nephrology on board -Renal diet -HD TW Problems reviewed: Yes Code(s): N18.6 - END STAGE RENAL DISEASE; Z99.2 - DEPENDENCE ON RENAL DIALYSIS (4) Anemia Assessment/Plan: -Chronic -likely 2/2 to CKD -monitor trend Problems reviewed: Yes Code(s): D64.9 - ANEMIA, UNSPECIFIED Assessment/Plan see problem list
--- NOTE | 2019-10-16 12:45 | CON.CARD ---
Consult Consult Specialty:: Cardiology Referred by:: Dr. Farnsworth Reason for Consultation:: AMS - History of Present Illness Chief Complaint: AMS History of Present Illness: 49 year old man with a past medical history of HTN, HLD, NIDDM, CKD on HD (), Cirrhosis secondary to chronic ETOH abuse s/p TIPS, depression, multiple UGI bleeds needing esophageal varice banding admitted with AMS. pt seen and examined today in nad. sitting up on side of bed, awake and alert. states the last thing he remembers is Monday (2 days ago) He does not remember going to HD on monday. He denies having had any chest pain, sob, palpitations. no syncope or near syncope. - History Source History Provided By: Patient, Medical Record Limitations to Obtaining History: No Limitations - Past Medical History [employer]: Yes: Seizure, Other ([place] hole decompression of intracerebral bleed ? fall after seizre or hypertensive hemorrhage) Cardio/Vascular: Yes: HTN, Hyperlipdemia Gastrointestinal: Yes: GI Bleed (multiple esophageal variceal bleed and banding before [place] [facility] Other (colon polyp removed by Dr De La Torre at [facility] ?) Hepatobiliary: Yes: Cirrhosis Renal/: Yes: Renal Inusuff, Hematuria, Hemodialysis Psych: Yes: Addictions (alcohol, previously cocaine and marijuana), Depression, Other (attempted suicide) Endocrine: Yes: Diabetes Mellitus - Past Surgical History Past Surgical History: Yes: Arthrosocopy (left knee), Colonoscopy, Upper Endoscopy - Alcohol/Substance Use Hx Alcohol Use: Yes (QUIT 1 YEAR AGO) History of Substance Use: reports: Cocaine (snorted), Marijuana - Smoking History Smoking history: Current every day smoker Have you smoked in the past 12 months: Yes Aproximately how many cigarettes per day: 3 If you are a former smoker, when did you quit?: 2010 - Social History Usual Living Arrangement: Alone ADL: Support Services 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 History of Recent Travel: No Home Medications - Allergies Allergies/Adverse Reactions: Allergies Allergy/AdvReac Type Severity Reaction Status Date / Time piperacillin Allergy Severe Swelling Verified 10/15/19 10:41 shellfish derived Allergy Severe Swelling Verified 10/15/19 10:41 latex Allergy Mild Rash Verified 10/15/19 10:41 - Home Medications Home Medications: Ambulatory Orders Multivitamin [One Daily] 1 each PO DAILY #30 tablet 09/27/17 Amlodipine Besylate [Norvasc -] 10 mg PO DAILY #30 tab 05/08/18 Furosemide [Lasix -] 40 mg PO BID@0600,1400 #60 tablet 05/08/18 Lactulose (Oral Use) [Cephulac -] 20 gm PO BID #1800 ml 05/08/18 Tamsulosin HCl [Flomax -] 0.4 mg PO DAILY@0830 #30 cap.er.24h 05/08/18 hydrOXYzine HCL [Atarax -] 50 mg PO Q6H PRN #360 tablet 05/08/18 Acetaminophen [Tylenol .Regular Strength -] 650 mg PO Q6H PRN tablet 07/08/18 Thiamine HCl [Vitamin B1 -] 100 mg PO DAILY #30 tablet 07/08/18 Spironolactone [Aldactone -] 50 mg PO DAILY #30 tablet 07/10/18 levETIRAcetam [Keppra -] 500 mg PO BID 07/09/19 Folic Acid 1 mg PO DAILY #30 tablet 07/10/19 Clindamycin [Cleocin -] 300 mg PO Q6HPO #20 capsule 09/19/19 Pantoprazole Sodium [Protonix] 40 mg PO DAILY #30 tablet.dr 09/19/19 Carvedilol [Coreg -] 25 mg PO BID 10/15/19 Ferric Citrate [Auryxia] 2 tab PO AC 10/15/19 Magnesium Oxide [Magox 400] 400 mg PO DAILY 10/15/19 Rifaximin [Xifaxan] 550 mg PO TID 10/15/19 Review of Systems - Review of Systems Constitutional: denies: No Symptoms, Chills, Diaphoresis, Fever, Lethargy, Loss of Appetite, Malaise, Night Sweats, Unintentional Wgt. Loss, Weakness, Other Eyes: denies: No Symptoms, Blind Spots, Blurred Vision, Double Vision, Eye Pain , Floaters, Photophobia, Recent Change in Vision, Other HENT: denies: No Symptoms, Difficult Swallowing, Ear Discharge, Ear Pain, Epistaxis, Gingival Bleeding, Hearing Loss, Mouth Swelling, Nasal Congestion, Ocular Prosthesis, Throat Pain, Toothache, Ringing in Ears, Other Neck: denies: No Symptoms, Decreased ROM, Lumps, Pain on Movement, Stiffness, Swollen Glands, Tenderness, Other Cardiovascular: denies: No Symptoms, Chest Pain, Edema, Palpitations, Shortness of Breath, Other Respiratory: denies: No Symptoms, Cough, Exercise Intolerance, Hemoptysis, Orthopnea, PND, Snoring, SOB, SOB on Exertion, Wheezing, Other Gastrointestinal: denies: No Symptoms, Abdominal Pain, Bloating, Constipation, Diarrhea, Dysphagia, Indigestion, Melena, Nausea, Rectal Bleeding, Vomiting, Vomiting Blood, Other Genitourinary: denies: No Symptoms, Burning, Discharge, Dysuria, Flank Pain, Frequency, Hematuria, Incontinence, Lesions, Menses, Pain, Testicular Mass, Testicular Pain, Testicular Swelling, Urgency, Vaginal Bleeding, Other Breasts: denies: No Symptoms Reported, See HPI, Breast Implants, Discharge from Nipple, Lumps, Pain, Skin Changes, Other Musculoskeletal: denies: No Symptoms, Back Pain, Crepitus, Decreased ROM, Extremity Pain, Joint Pain, Joint Swelling, Muscle Pain, Muscle Cramps, Muscle Weakness, Other Integumentary: denies: No Symptoms, Blister, Bruising, Change in Color, Eczema, Erythema, Incision, Lesions, Lump, Pallor, Pruritis, Rash, Wound, Other Neurological: reports: Change in LOC, Confusion. denies: No Symptoms, Change in Speech, Dizziness, Headache, Incoordination, Numbness, Parasthesia, Pre- Existing Deficit, Seizure, Syncope, Tremors, Unsteady Gait, Weakness, Other Endocrine: denies: No Symptoms, Excessive Sweating, Flushing, Increased Hunger, Increased Thirst, Intolerance to Cold, Intolerance to Heat, Unexplained Weight Gain, Unexplained Weight Loss, Other Hematology/Lymphatic: denies: No Symptoms, Easily Bruised, Excessive Bleeding, Swollen Glands, Other Psychiatric: denies: No Symptoms, Altered Sleep Pattern, Anxiety, Depression, Hallucinations, Panic, Paranoia, Suicidal, Other - Risk Factors Known Risk Factors: Yes: Hypertension Vital Signs: Vital Signs Temperature 97.4 F L 10/16/19 10:00 Pulse Rate 76 10/16/19 10:00 Respiratory Rate 18 10/16/19 10:00 Blood Pressure 109/56 L 10/16/19 10:00 O2 Sat by Pulse Oximetry (%) 99 10/15/19 22:21 Constitutional: Yes: No Distress, Calm Eyes: Yes: Conjunctiva Clear, EOM Intact, PERRL HENT: Yes: Atraumatic, Normocephalic Neck: Yes: Supple, Trachea Midline Respiratory: Yes: Regular, CTA Bilaterally. No: Rales, Rhonchi, Wheezes Gastrointestinal: Yes: Normal Bowel Sounds, Soft. No: Distention, Tenderness Cardiovascular: Yes: Regular Rate and Rhythm. No: Bradycardia, Tachycardia, Pulse Irregular, Gallop, Rub, Varicosities JVD: No Carotid Bruit: No PMI: Non-Displaced Heart Sounds: Yes: S1, S2. No: Split S2, S3, S4, Clicks, Gallop, Rub, Bruit Murmur: No: Systolic Murmur, Diastolic Murmur Musculoskeletal: Yes: WNL Extremities: Yes: WNL Edema: Yes Peripheral Pulses WNL: Yes Peripheral Pulses: 2+ Left Doralis Pedis, 2+ Right Dorsalis Pedis Neurological: Yes: Alert, Oriented Psychiatric: Yes: Alert, Oriented - Other Data Labs, Other Data: CBC, BMP 10/16/19 05:40 10/16/19 05:40 INR, PTT INR 1.09 (0.83-1.09) 10/15/19 10:40 Troponin, BNP 10/16/19 05:40 Troponin I < 0.02 Troponin, BNP 10/16/19 05:40 Troponin I < 0.02 ekg nsr, lvh, prolonged QTc Imaging - Results Chest X-ray: Report Reviewed, Image Reviewed EKG: Report Reviewed, Image Reviewed Other: Report Reviewed, Image Reviewed (tele-nsr, no events recorded) Assessment/Plan 49 year old man with a past medical history of HTN, HLD, NIDDM, CKD on HD (), Cirrhosis secondary to chronic ETOH abuse s/p TIPS, depression, multiple UGI bleeds needing esophageal varice banding admitted with AMS. pt seen and examined today in nad. sitting up on side of bed, awake and alert. states the last thing he remembers is Monday (2 days ago) He does not remember going to HD on monday. He denies having had any chest pain, sob, palpitations. no syncope or near syncope. AMS -unlikely cardiac in origin -ekg no sig abnl -cardiac enzymes wnl -no events on tele -neurology evaluating -no additional cardiac work up is needed at this time. -if CVA is not suspected, can dc tele Will see as needed. Please call with any additional questions.
[2019-10-16] MEDS ORDERED: SODIUM CHLORIDE 250 ML IV PRN (13:12)
--- NOTE | 2019-10-16 13:12 | PN ---
Progress Note, Physician History of Present Illness: Pt seen and examined at bedside. He is much more awake and alert. He does not remember what happened yesterday and does not remember going to HD. - Current Medication List Current Medications: Active Medications Amlodipine Besylate (Norvasc -) 10 mg PO DAILY [facility] Last Admin: 10/16/19 10:16 Dose: 10 mg Carvedilol (Coreg -) 25 mg PO BID [facility] Last Admin: 10/16/19 10:16 Dose: 25 mg Folic Acid (Folic Acid -) 1 mg PO DAILY [facility] Last Admin: 10/16/19 10:17 Dose: 1 mg Furosemide (Lasix -) 40 mg PO BID@0600,1400 [facility] Last Admin: 10/16/19 05:32 Dose: Not Given Hydralazine HCl (Apresoline -) 50 mg PO TID [facility] Last Admin: 10/16/19 05:32 Dose: Not Given Insulin Aspart (Novolog Vial Sliding Scale -) 1 vial SQ ACHS [facility]; Protocol Last Admin: 10/16/19 12:46 Dose: Not Given Lactulose (Cephulac (Oral Use)) 20 gm PO BID [facility] Last Admin: 10/16/19 10:36 Dose: 20 gm Levetiracetam (Keppra -) 500 mg PO BID [facility] Last Admin: 10/16/19 10:16 Dose: 500 mg Levothyroxine Sodium (Synthroid -) 50 mcg PO DAILY@0700 [facility] Last Admin: 10/16/19 06:05 Dose: Not Given Magnesium Oxide (Mag-Ox -) 400 mg PO DAILY [facility] Last Admin: 10/16/19 10:16 Dose: 400 mg Multivitamins/Minerals/Vitamin C (Tab-A-Vit -) 1 tab PO DAILY [facility] Last Admin: 10/16/19 10:16 Dose: 1 tab Non-Formulary Medication (Ferric Citrate [Auryxia]) 2 tab PO AC [facility] Pantoprazole Sodium (Protonix -) 40 mg PO DAILY [facility] Last Admin: 10/16/19 10:16 Dose: 40 mg Rosuvastatin Calcium (Crestor -) 5 mg PO HS [facility] Last Admin: 10/15/19 21:42 Dose: 5 mg Tamsulosin HCl (Flomax -) 0.4 mg PO DAILY@0830 [facility] Last Admin: 10/16/19 10:17 Dose: 0.4 mg Thiamine HCl (Vitamin B1 -) 100 mg PO DAILY [facility] Last Admin: 10/16/19 10:17 Dose: 100 mg - Objective Vital Signs: Vital Signs Temperature 97.4 F L 10/16/19 10:00 Pulse Rate 76 10/16/19 10:00 Respiratory Rate 18 10/16/19 10:00 Blood Pressure 109/56 L 10/16/19 10:00 O2 Sat by Pulse Oximetry (%) 98 10/16/19 09:00 Constitutional: Yes: Calm Eyes: Yes: Conjunctiva Clear HENT: Yes: Atraumatic Neck: Yes: Supple Cardiovascular: Yes: S1, S2 Respiratory: Yes: CTA Bilaterally Gastrointestinal: Yes: Normal Bowel Sounds, Soft Genitourinary: Yes: WNL Musculoskeletal: Yes: WNL Edema: No Neurological: Yes: Oriented Psychiatric: Yes: Oriented Labs: CBC, BMP 10/16/19 05:40 10/16/19 05:40 INR, PTT INR 1.09 (0.83-1.09) 10/15/19 10:40 Problem List - Problems (1) Altered mental status, unspecified Code(s): R41.82 - ALTERED MENTAL STATUS, UNSPECIFIED Qualifiers: Altered mental status type: unspecified Qualified Code(s): R41.82 - Altered mental status, unspecified (2) ESRD (end stage renal disease) on dialysis Code(s): N18.6 - END STAGE RENAL DISEASE; Z99.2 - DEPENDENCE ON RENAL DIALYSIS Assessment/Plan Current Medications Generic Name Dose Route Start Last Admin Trade Name Koleq PRN Reason Stop Dose Admin Amlodipine Besylate 10 mg 10/16/19 10:00 10/16/19 10:16 Norvasc - PO 10 mg DAILY [facility] Administration Carvedilol 25 mg 10/15/19 22:00 10/16/19 10:16 Coreg - PO 25 mg BID DEV Administration Folic Acid 1 mg 10/16/19 10:00 10/16/19 10:17 Folic Acid - PO 1 mg DAILY [facility] Administration Furosemide 40 mg 10/16/19 06:00 10/16/19 05:32 Lasix - PO Not Given BID@0600,1400 [facility] Hydralazine HCl 50 mg 10/15/19 22:00 10/16/19 05:32 Apresoline - PO Not Given TID DEV Insulin Aspart 1 vial 10/15/19 16:30 10/16/19 12:46 Novolog Vial Sliding Scale - SQ Not Given ACHS [facility] Protocol Lactulose 20 gm 10/15/19 22:00 10/16/19 10:36 Cephulac (Oral Use) PO 20 gm BID DEV Administration Levetiracetam 500 mg 10/15/19 22:00 10/16/19 10:16 Keppra - PO 500 mg BID [facility] Administration Levothyroxine Sodium 50 mcg 10/16/19 07:00 10/16/19 06:05 Synthroid - PO Not Given DAILY@0700 [facility] Magnesium Oxide 400 mg 10/16/19 10:00 10/16/19 10:16 Mag-Ox - PO 400 mg DAILY [facility] Administration Multivitamins/Minerals/Vitamin C 1 tab 10/16/19 10:00 10/16/19 10:16 Tab-A-Vit - PO 1 tab DAILY [facility] Administration Non-Formulary Medication 2 tab 10/15/19 15:45 Ferric Citrate [Auryxia] PO AC [facility] Pantoprazole Sodium 40 mg 10/16/19 10:00 10/16/19 10:16 Protonix - PO 40 mg DAILY [facility] Administration Rosuvastatin Calcium 5 mg 10/15/19 22:00 10/15/19 21:42 Crestor - PO 5 mg HS DEV Administration Tamsulosin HCl 0.4 mg 10/16/19 08:30 10/16/19 10:17 Flomax - PO 0.4 mg DAILY@0830 [facility] Administration Thiamine HCl 100 mg 10/16/19 10:00 10/16/19 10:17 Vitamin B1 - PO 100 mg DAILY [facility] Administration Impression 1. ESRD 2. htn 3. hx etoh abuse 4. liver cirrhosis with tips 5. anemia 6. change in mental status Plan - mental status improved - HD tomorrow - pt says he was taking the lactulose every other day - monitor ammonia level - 4 :15 180 abf 400 3 k bath
[2019-10-16 14:01] LABS: IRON SERUM 83 ug/dL (50-175); TOTAL IRON BINDING CAPACITY 193 ug/dL (250-450)
[2019-10-16] MEDS ORDERED: ACETAMINOPHEN 325 MG TABLET (FP) PO PRN (18:54)
[2019-10-16] MEDS ORDERED: diphenhydrAMINE HCL 25 MG CAPSULE (FP) PO ONE (20:56)
[2019-10-16] MEDS: ROSUVASTATIN CA 5 MG TABLET (FP) PO SCH (21:42)
[2019-10-17] MEDS: INSULIN SLIDING SCALE (NOVOLOG) 1 VIAL SQ SCH ×4 (06:35→21:45)
[2019-10-17] MEDS: LEVOTHYROXINE NA 50 MCG TABLET (FP) PO SCH ×2 (06:35→10:55)
[2019-10-17] MEDS: hydrALAZINE HCL 50 MG TABLET (FP) PO SCH (06:35)
[2019-10-17] MEDS: FUROSEMIDE 40 MG TABLET (FP) PO SCH ×2 (06:35→13:20)
[2019-10-17 08:22] LABS: BASO % 0.7 % (0-2.0); EOS % 12.7 % (0-4.5); HEMATOCRIT 29.5 % (35.4-49); HEMOGLOBIN 10.2 GM/dL (11.7-16.9); LYMPH % 15.4 % (8-40); MCH 31.5 pg (25.7-33.7); MCHC 34.6 g/dl (32.0-35.9); MEAN PLT VOLUME 9.6 fl (7.5-11.1); MONO % 10.2 % (3.8-10.2); PLATELET COUNT 92 K/MM3 (134-434); RBC 3.24 M/mm3 (4.00-5.60); RDW 16.2 % (11.9-15.9); WHITE BLOOD COUNT 4.5 K/mm3 (4.0-10.0)
[2019-10-17 08:51] LABS: ALBUMIN 3.3 g/dl (3.4-5.0); BLOOD UREA NITROGEN 43.7 mg/dL (7-18); CALCIUM 8.3 mg/dL (8.5-10.1); POTASSIUM 4.3 mmol/L (3.5-5.1); TOT PROT 6.6 g/dl (6.4-8.2)
[2019-10-17 09:02] LABS: CREATININE 7.7 mg/dL (0.55-1.3)
[2019-10-17] MEDS: TAMSULOSIN HCL 0.4 MG CAP PO SCH (09:39)
[2019-10-17] MEDS: amLODIPine BESYLATE 10 MG TABLET (FP) PO SCH (09:39)
[2019-10-17] MEDS: CARVEDILOL 25 MG TABLET (FP) PO SCH ×2 (09:39→21:34)
[2019-10-17] MEDS: levETIRAcetam 500 MG TABLET (FP) PO SCH ×2 (10:55→21:35)
[2019-10-17] MEDS: THIAMINE HCL 100 MG TABLET (FP) PO SCH (10:55)
[2019-10-17] MEDS: MULTIVITAMINS (DAILY MVI) TABLET (FP) PO SCH (10:55)
[2019-10-17] MEDS: MAGNESIUM OXIDE 400 MG TABLET (FP) PO SCH (10:55)
[2019-10-17] MEDS: FOLIC ACID 1 MG TABLET (FP) PO SCH (10:55)
[2019-10-17] MEDS: PANTOPRAZOLE 40 MG TABLET (FP) PO SCH (10:55)
[2019-10-17] MEDS: LACTULOSE 20 GM/30 ML UDC (FOR ORAL USE ONLY) PO SCH ×2 (10:56→21:35)
--- NOTE | 2019-10-17 12:01 | PN ---
Progress Note, Physician History of Present Illness: Pt seen and examined at bedside. He is awake and alert. He is tolerating HD. - Current Medication List Current Medications: Active Medications Acetaminophen (Tylenol -) 650 mg PO Q6H PRN PRN Reason: Fever Or Pain Last Admin: 10/16/19 19:28 Dose: 650 mg Amlodipine Besylate (Norvasc -) 10 mg PO DAILY [facility] Last Admin: 10/17/19 09:39 Dose: Not Given Carvedilol (Coreg -) 25 mg PO BID [facility] Last Admin: 10/17/19 09:39 Dose: Not Given Folic Acid (Folic Acid -) 1 mg PO DAILY [facility] Last Admin: 10/17/19 10:55 Dose: 1 mg Furosemide (Lasix -) 40 mg PO BID@0600,1400 [facility] Last Admin: 10/17/19 06:35 Dose: Not Given Hydralazine HCl (Apresoline -) 50 mg PO TID [facility] Last Admin: 10/17/19 06:35 Dose: Not Given Sodium Chloride (Normal Saline -) 250 mls @ 3,000 mls/hr IV PRN PRN PRN Reason: Hypotension during Dialysis Stop: 10/17/19 13:12 Insulin Aspart (Novolog Vial Sliding Scale -) 1 vial SQ ACHS [facility]; Protocol Last Admin: 10/17/19 06:35 Dose: Not Given Lactulose (Cephulac (Oral Use)) 20 gm PO BID [facility] Last Admin: 10/17/19 10:56 Dose: 20 gm Levetiracetam (Keppra -) 500 mg PO BID [facility] Last Admin: 10/17/19 10:55 Dose: 500 mg Levothyroxine Sodium (Synthroid -) 50 mcg PO DAILY@0700 [facility] Last Admin: 10/17/19 10:55 Dose: 50 mcg Magnesium Oxide (Mag-Ox -) 400 mg PO DAILY [facility] Last Admin: 10/17/19 10:55 Dose: 400 mg Multivitamins/Minerals/Vitamin C (Tab-A-Vit -) 1 tab PO DAILY [facility] Last Admin: 10/17/19 10:55 Dose: 1 tab Non-Formulary Medication (Ferric Citrate [Auryxia]) 2 tab PO AC [facility] Pantoprazole Sodium (Protonix -) 40 mg PO DAILY [facility] Last Admin: 10/17/19 10:55 Dose: 40 mg Rifaximin (Xifaxan -) 550 mg PO BID [facility] Rosuvastatin Calcium (Crestor -) 5 mg PO HS [facility] Last Admin: 10/16/19 21:42 Dose: 5 mg Tamsulosin HCl (Flomax -) 0.4 mg PO DAILY@0830 [facility] Last Admin: 10/17/19 09:39 Dose: Not Given Thiamine HCl (Vitamin B1 -) 100 mg PO DAILY [facility] Last Admin: 10/17/19 10:55 Dose: 100 mg - Objective Vital Signs: Vital Signs Temperature 98.2 F 10/17/19 09:00 Pulse Rate 62 10/17/19 09:00 Respiratory Rate 18 10/17/19 09:00 Blood Pressure 100/57 L 10/17/19 09:00 O2 Sat by Pulse Oximetry (%) 100 10/17/19 09:00 Constitutional: Yes: Calm Eyes: Yes: WNL Neck: Yes: Supple Cardiovascular: Yes: S1, S2 Respiratory: Yes: CTA Bilaterally Gastrointestinal: Yes: Soft Genitourinary: Yes: WNL Musculoskeletal: Yes: WNL Edema: No Neurological: Yes: Oriented Psychiatric: Yes: Oriented Labs: CBC, BMP 10/17/19 07:30 10/17/19 07:30 INR, PTT INR 1.09 (0.83-1.09) 10/15/19 10:40 Problem List - Problems (1) Altered mental status, unspecified Code(s): R41.82 - ALTERED MENTAL STATUS, UNSPECIFIED Qualifiers: Altered mental status type: unspecified Qualified Code(s): R41.82 - Altered mental status, unspecified (2) ESRD (end stage renal disease) on dialysis Code(s): N18.6 - END STAGE RENAL DISEASE; Z99.2 - DEPENDENCE ON RENAL DIALYSIS Assessment/Plan Current Medications Generic Name Dose Route Start Last Admin Trade Name Freq PRN Reason Stop Dose Admin Acetaminophen 650 mg 10/16/19 18:54 10/16/19 19:28 Tylenol - PO 650 mg Q6H PRN Administration Fever Or Pain Amlodipine Besylate 10 mg 10/16/19 10:00 10/17/19 09:39 Norvasc - PO Not Given DAILY [facility] Carvedilol 25 mg 10/15/19 22:00 10/17/19 09:39 Coreg - PO Not Given BID [facility] Folic Acid 1 mg 10/16/19 10:00 10/17/19 10:55 Folic Acid - PO 1 mg DAILY [facility] Administration Furosemide 40 mg 10/16/19 06:00 10/17/19 06:35 Lasix - PO Not Given BID@0600,1400 [facility] Hydralazine HCl 50 mg 10/15/19 22:00 10/17/19 06:35 Apresoline - PO Not Given TID [facility] Sodium Chloride 250 mls @ 3,000 mls/hr 10/16/19 13:12 Normal Saline - IV 10/17/19 13:12 PRN PRN Hypotension during Dialysis Insulin Aspart 1 vial 10/15/19 16:30 10/17/19 06:35 Novolog Vial Sliding Scale - SQ Not Given ACHS [facility] Protocol Lactulose 20 gm 10/15/19 22:00 10/17/19 10:56 Cephulac (Oral Use) PO 20 gm BID DEV Administration Levetiracetam 500 mg 10/15/19 22:00 10/17/19 10:55 Keppra - PO 500 mg BID [facility] Administration Levothyroxine Sodium 50 mcg 10/16/19 07:00 10/17/19 10:55 Synthroid - PO 50 mcg DAILY@0700 [facility] Administration Magnesium Oxide 400 mg 10/16/19 10:00 10/17/19 10:55 Mag-Ox - PO 400 mg DAILY [facility] Administration Multivitamins/Minerals/Vitamin C 1 tab 10/16/19 10:00 10/17/19 10:55 Tab-A-Vit - PO 1 tab DAILY [facility] Administration Non-Formulary Medication 2 tab 10/15/19 15:45 Ferric Citrate [Auryxia] PO AC [facility] Pantoprazole Sodium 40 mg 10/16/19 10:00 10/17/19 10:55 Protonix - PO 40 mg DAILY [facility] Administration Rifaximin 550 mg 10/17/19 11:00 Xifaxan - PO BID [facility] Rosuvastatin Calcium 5 mg 10/15/19 22:00 10/16/19 21:42 Crestor - PO 5 mg HS [facility] Administration Tamsulosin HCl 0.4 mg 10/16/19 08:30 10/17/19 09:39 Flomax - PO Not Given DAILY@0830 [facility] Thiamine HCl 100 mg 10/16/19 10:00 10/17/19 10:55 Vitamin B1 - PO 100 mg DAILY [facility] Administration Impression 1. ESRD 2. htn 3. hx etoh abuse 4. liver cirrhosis with tips 5. anemia 6. change in mental status Plan - HD today - mentation improved - cont lactulose and rifiximin - pt was taking the lactulose every other day - monitor ammonia level - 4 :15 180 abf 400 3 k bath
--- NOTE | 2019-10-17 12:45 | PN ---
Progress Note, Physician Chief Complaint: patient got HD today awake alert able to tell me and name started rifaximin today - Current Medication List Current Medications: Active Medications Acetaminophen (Tylenol -) 650 mg PO Q6H PRN PRN Reason: Fever Or Pain Last Admin: 10/16/19 19:28 Dose: 650 mg Amlodipine Besylate (Norvasc -) 10 mg PO DAILY [facility] Last Admin: 10/17/19 09:39 Dose: Not Given Carvedilol (Coreg -) 25 mg PO BID [facility] Last Admin: 10/17/19 09:39 Dose: Not Given Folic Acid (Folic Acid -) 1 mg PO DAILY [facility] Last Admin: 10/17/19 10:55 Dose: 1 mg Furosemide (Lasix -) 40 mg PO BID@0600,1400 [facility] Last Admin: 10/17/19 06:35 Dose: Not Given Hydralazine HCl (Apresoline -) 50 mg PO TID [facility] Last Admin: 10/17/19 06:35 Dose: Not Given Sodium Chloride (Normal Saline -) 250 mls @ 3,000 mls/hr IV PRN PRN PRN Reason: Hypotension during Dialysis Stop: 10/17/19 13:12 Insulin Aspart (Novolog Vial Sliding Scale -) 1 vial SQ ACHS [facility]; Protocol Last Admin: 10/17/19 12:17 Dose: Not Given Lactulose (Cephulac (Oral Use)) 20 gm PO BID [facility] Last Admin: 10/17/19 10:56 Dose: 20 gm Levetiracetam (Keppra -) 500 mg PO BID [facility] Last Admin: 10/17/19 10:55 Dose: 500 mg Levothyroxine Sodium (Synthroid -) 50 mcg PO DAILY@0700 [facility] Last Admin: 10/17/19 10:55 Dose: 50 mcg Magnesium Oxide (Mag-Ox -) 400 mg PO DAILY [facility] Last Admin: 10/17/19 10:55 Dose: 400 mg Multivitamins/Minerals/Vitamin C (Tab-A-Vit -) 1 tab PO DAILY [facility] Last Admin: 10/17/19 10:55 Dose: 1 tab Non-Formulary Medication (Ferric Citrate [Auryxia]) 2 tab PO AC [facility] Pantoprazole Sodium (Protonix -) 40 mg PO DAILY [facility] Last Admin: 10/17/19 10:55 Dose: 40 mg Rifaximin (Xifaxan -) 550 mg PO BID [facility] Rosuvastatin Calcium (Crestor -) 5 mg PO HS [facility] Last Admin: 10/16/19 21:42 Dose: 5 mg Tamsulosin HCl (Flomax -) 0.4 mg PO DAILY@0830 [facility] Last Admin: 10/17/19 09:39 Dose: Not Given Thiamine HCl (Vitamin B1 -) 100 mg PO DAILY [facility] Last Admin: 10/17/19 10:55 Dose: 100 mg - Objective Vital Signs: Vital Signs Temperature 98.2 F 10/17/19 09:00 Pulse Rate 50 L 10/17/19 12:00 Respiratory Rate 18 10/17/19 12:00 Blood Pressure 104/60 10/17/19 12:00 O2 Sat by Pulse Oximetry (%) 100 10/17/19 09:00 Constitutional: Yes: Calm Cardiovascular: Yes: Regular Rate and Rhythm, S1, S2 Respiratory: Yes: CTA Bilaterally Gastrointestinal: Yes: Normal Bowel Sounds, Soft Edema: No Neurological: Yes: Alert Labs: CBC, BMP 10/17/19 07:30 10/17/19 07:30 INR, PTT INR 1.09 (0.83-1.09) 10/15/19 10:40 Problem List - Problems (1) Cirrhosis of liver Assessment/Plan: rifamximn,lactulose for 2-3 bm per day trend ammonia level Code(s): K74.60 - UNSPECIFIED CIRRHOSIS OF LIVER (2) ESRD (end stage renal disease) on dialysis Assessment/Plan: HD todaywith albumin Code(s): N18.6 - END STAGE RENAL DISEASE; Z99.2 - DEPENDENCE ON RENAL DIALYSIS (3) Altered mental status, unspecified Assessment/Plan: check ammonia and TSH in the morning Code(s): R41.82 - ALTERED MENTAL STATUS, UNSPECIFIED Qualifiers: Altered mental status type: unspecified Qualified Code(s): R41.82 - Altered mental status, unspecified (4) Hypotension Assessment/Plan: stop norvasc and hydralazine Code(s): I95.9 - HYPOTENSION, UNSPECIFIED
[2019-10-17] MEDS: RIFAXIMIN 550 MG TABLET (UD) PO SCH ×2 (15:26→21:46)
[2019-10-17] MEDS ORDERED: ONDANSETRON 4 MG/2 ML VIAL IVPUSH PRN (16:53)
[2019-10-17] MEDS: FLUoxetine HCL 20 MG CAPSULE (FP) PO SCH (16:59)
--- NOTE | 2019-10-17 17:34 | PN.GI ---
GI Progress Note Subjective: Mentating well States that he was only taking lactulose lactulose every other day and even then , sporadically at times C/O intermittent RUQ pain not related to meals - Objective Vital Signs: Vital Signs Temperature 98.3 F 10/17/19 15:21 Pulse Rate 68 10/17/19 15:21 Respiratory Rate 18 10/17/19 15:21 Blood Pressure 116/73 10/17/19 15:21 O2 Sat by Pulse Oximetry (%) 100 10/17/19 09:00 Constitutional: Calm Eyes: No: Sclera Icterus Cardiovascular: Yes: Regular Rate and Rhythm Respiratory: Yes: CTA Bilaterally Gastrointestinal Inspection: No: Distention, Hernia ...Auscultate: Yes: Normoactive Bowel Sounds ...Palpate: Yes: Soft, Tenderness (TTP RUQ) ...Percussion: No: Tympanitic Edema: No (No LE edema) Neurological: Yes: Alert, Oriented (x 3). No: [facility] Labs: CBC, BMP 10/17/19 07:30 10/17/19 07:30 INR, PTT INR 1.09 (0.83-1.09) 10/15/19 10:40 Hepatic Panel Total Bilirubin 1.0 mg/dL (0.2-1) 10/17/19 07:30 AST 14 U/L (15-37) L 10/17/19 07:30 ALT 15 U/L (13-61) 10/17/19 07:30 Alkaline Phosphatase 126 U/L (45-117) H 10/17/19 07:30 Albumin 3.3 g/dl (3.4-5.0) L 10/17/19 07:30 Problem List - Problems (1) Hepatic encephalopathy Assessment/Plan: Suspect secondary to non-compliance with lactulose clinically improved No need to trend ammonia levels. No benefit Lactulose 20g BID. Titrate to 3-4 loose BM's per day Code(s): K72.90 - HEPATIC FAILURE, UNSPECIFIED WITHOUT COMA (2) Chronic right upper quadrant pain Assessment/Plan: intermittent and not related to meals. No clinical evidence of acute cholecystitis Gallstones noted If pain persists, would advise follow-up at his liver center for assessment and further management of his gallstones Code(s): R10.11 - RIGHT UPPER QUADRANT PAIN; G89.29 - OTHER CHRONIC PAIN
[2019-10-17] MEDS ORDERED: ZOLPIDEM TARTRATE 5 MG TABLET PO ONE (21:04)
[2019-10-17] MEDS: ROSUVASTATIN CA 5 MG TABLET (FP) PO SCH (21:34)
[2019-10-18] MEDS: FUROSEMIDE 40 MG TABLET (FP) PO SCH (06:02)
[2019-10-18] MEDS: LEVOTHYROXINE NA 50 MCG TABLET (FP) PO SCH (06:02)
[2019-10-18] MEDS: INSULIN SLIDING SCALE (NOVOLOG) 1 VIAL SQ SCH (06:10)
[2019-10-18] MEDS: TAMSULOSIN HCL 0.4 MG CAP PO SCH (08:30)
[2019-10-18] MEDS ORDERED: PT OWN MED DRAWER 7, Y5N ONE (10:17)
[2019-10-18] MEDS: LACTULOSE 20 GM/30 ML UDC (FOR ORAL USE ONLY) PO SCH (10:20)
[2019-10-18] MEDS: MULTIVITAMINS (DAILY MVI) TABLET (FP) PO SCH (10:20)
[2019-10-18] MEDS: MAGNESIUM OXIDE 400 MG TABLET (FP) PO SCH (10:20)
[2019-10-18] MEDS: levETIRAcetam 500 MG TABLET (FP) PO SCH (10:21)
[2019-10-18] MEDS: CARVEDILOL 25 MG TABLET (FP) PO SCH (10:21)
[2019-10-18] MEDS: PANTOPRAZOLE 40 MG TABLET (FP) PO SCH (10:21)
[2019-10-18] MEDS: FLUoxetine HCL 20 MG CAPSULE (FP) PO SCH (10:21)
[2019-10-18] MEDS: FOLIC ACID 1 MG TABLET (FP) PO SCH (10:21)
[2019-10-18] MEDS: THIAMINE HCL 100 MG TABLET (FP) PO SCH (10:22)
[2019-10-18] MEDS: RIFAXIMIN 550 MG TABLET (UD) PO SCH (10:22)
--- NOTE | 2019-10-18 11:55 | PN ---
Progress Note (short form) - Note Progress Note: NEUROLOGY PROGRESS: Events reviewed and MRI of brain reviewed. Shows mild diffuse atrophy and subcortical microvascular changes. No sig cerebellar atrophy. Tolerated HD yesterday. Pt admits to previous heavy drinking, now sober over past year. Was prescribed lactulose, but admits only taking it every "few days." Ammonia level= 87.5mg%-> 54 NEURO: Awake, alert, cooperative. Affect more appropriate. Fluent speech, follows 3 step commands. Ox [facility]. November no September. . Morris-> Trump. Motor: No asterixis present currently. Brisk reflexes including AJ' s. Coordination: No FTN dystaxia. Sensation: Normal vibration. Romberg - Gait: Sl wide based. Can walk on heels, toes. Impression: Toxic-Metabolic Encephalopathy (hepatic) - improved Plan: Continue Lactulose rx. Follow ammonia level. Continue leveteracitam 500 mg BID Thank you very much, Brady Adam MD
[2019-10-18] MEDS ORDERED: SODIUM CHLORIDE 250 ML IV PRN (12:45)
--- NOTE | 2019-10-18 12:45 | PN ---
Progress Note, Physician History of Present Illness: Pt seen and examined at bedside. He is awake and alert. He denies shortness of breath. - Current Medication List Current Medications: Active Medications Acetaminophen (Tylenol -) 650 mg PO Q6H PRN PRN Reason: Fever Or Pain Last Admin: 10/16/19 19:28 Dose: 650 mg Carvedilol (Coreg -) 25 mg PO BID [facility] Last Admin: 10/18/19 10:21 Dose: 25 mg Fluoxetine HCl (Prozac -) 40 mg PO DAILY [facility] Last Admin: 10/18/19 10:21 Dose: 40 mg Folic Acid (Folic Acid -) 1 mg PO DAILY [facility] Last Admin: 10/18/19 10:21 Dose: 1 mg Furosemide (Lasix -) 40 mg PO BID@0600,1400 [facility] Last Admin: 10/18/19 06:02 Dose: 40 mg Sodium Chloride (Normal Saline -) 250 mls @ 3,000 mls/hr IV PRN PRN PRN Reason: Hypotension during Dialysis Stop: 10/17/19 13:12 Insulin Aspart (Novolog Vial Sliding Scale -) 1 vial SQ ACHS [facility]; Protocol Last Admin: 10/18/19 06:10 Dose: Not Given Lactulose (Cephulac (Oral Use)) 20 gm PO BID [facility] Last Admin: 10/18/19 10:20 Dose: 20 gm Levetiracetam (Keppra -) 500 mg PO BID [facility] Last Admin: 10/18/19 10:21 Dose: 500 mg Levothyroxine Sodium (Synthroid -) 50 mcg PO DAILY@0700 [facility] Last Admin: 10/18/19 06:02 Dose: 50 mcg Magnesium Oxide (Mag-Ox -) 400 mg PO DAILY [facility] Last Admin: 10/18/19 10:20 Dose: 400 mg Multivitamins/Minerals/Vitamin C (Tab-A-Vit -) 1 tab PO DAILY [facility] Last Admin: 10/18/19 10:20 Dose: 1 tab Non-Formulary Medication (Ferric Citrate [Auryxia]) 2 tab PO AC [facility] Ondansetron HCl (Zofran Injection) 4 mg IVPUSH Q6H PRN PRN Reason: NAUSEA AND/OR VOMITING Last Admin: 10/17/19 17:05 Dose: 4 mg Pantoprazole Sodium (Protonix -) 40 mg PO DAILY [facility] Last Admin: 10/18/19 10:21 Dose: 40 mg Rifaximin (Xifaxan -) 550 mg PO BID [facility] Last Admin: 10/18/19 10:22 Dose: 550 mg Rosuvastatin Calcium (Crestor -) 5 mg PO HS [facility] Last Admin: 10/17/19 21:34 Dose: 5 mg Tamsulosin HCl (Flomax -) 0.4 mg PO DAILY@0830 [facility] Last Admin: 10/18/19 08:30 Dose: 0.4 mg Thiamine HCl (Vitamin B1 -) 100 mg PO DAILY [facility] Last Admin: 10/18/19 10:22 Dose: 100 mg - Objective Vital Signs: Vital Signs Temperature 98.3 F 10/18/19 06:11 Pulse Rate 66 10/18/19 06:11 Respiratory Rate 18 10/18/19 10:25 Blood Pressure 127/54 L 10/18/19 10:25 O2 Sat by Pulse Oximetry (%) 100 10/18/19 09:00 Constitutional: Yes: Calm Eyes: Yes: Conjunctiva Clear HENT: Yes: Atraumatic Neck: Yes: Supple Cardiovascular: Yes: S1, S2 Respiratory: Yes: CTA Bilaterally Gastrointestinal: Yes: Soft Genitourinary: Yes: WNL Musculoskeletal: Yes: WNL Edema: No Neurological: Yes: Oriented Psychiatric: Yes: Oriented Labs: CBC, BMP 10/17/19 07:30 10/17/19 07:30 INR, PTT INR 1.09 (0.83-1.09) 10/15/19 10:40 Problem List - Problems (1) Altered mental status, unspecified Code(s): R41.82 - ALTERED MENTAL STATUS, UNSPECIFIED Qualifiers: Altered mental status type: unspecified Qualified Code(s): R41.82 - Altered mental status, unspecified (2) ESRD (end stage renal disease) on dialysis Code(s): N18.6 - END STAGE RENAL DISEASE; Z99.2 - DEPENDENCE ON RENAL DIALYSIS Assessment/Plan Current Medications Generic Name Dose Route Start Last Admin Trade Name Freq PRN Reason Stop Dose Admin Acetaminophen 650 mg 10/16/19 18:54 10/16/19 19:28 Tylenol - PO 650 mg Q6H PRN Administration Fever Or Pain Carvedilol 25 mg 10/15/19 22:00 10/18/19 10:21 Coreg - PO 25 mg BID DEV Administration Fluoxetine HCl 40 mg 10/17/19 15:45 10/18/19 10:21 Prozac - PO 40 mg DAILY DEV Administration Folic Acid 1 mg 10/16/19 10:00 10/18/19 10:21 Folic Acid - PO 1 mg DAILY DEV Administration Furosemide 40 mg 10/16/19 06:00 10/18/19 06:02 Lasix - PO 40 mg BID@0600,1400 DEV Administration Sodium Chloride 250 mls @ 3,000 mls/hr 10/16/19 13:12 Normal Saline - IV 10/17/19 13:12 PRN PRN Hypotension during Dialysis Insulin Aspart 1 vial 10/15/19 16:30 10/18/19 06:10 Novolog Vial Sliding Scale - SQ Not Given ACHS [facility] Protocol Lactulose 20 gm 10/15/19 22:00 10/18/19 10:20 Cephulac (Oral Use) PO 20 gm BID DEV Administration Levetiracetam 500 mg 10/15/19 22:00 10/18/19 10:21 Keppra - PO 500 mg BID [facility] Administration Levothyroxine Sodium 50 mcg 10/16/19 07:00 10/18/19 06:02 Synthroid - PO 50 mcg DAILY@0700 [facility] Administration Magnesium Oxide 400 mg 10/16/19 10:00 10/18/19 10:20 Mag-Ox - PO 400 mg DAILY [facility] Administration Multivitamins/Minerals/Vitamin C 1 tab 10/16/19 10:00 10/18/19 10:20 Tab-A-Vit - PO 1 tab DAILY DEV Administration Non-Formulary Medication 2 tab 10/15/19 15:45 Ferric Citrate [Auryxia] PO AC [facility] Ondansetron HCl 4 mg 10/17/19 16:53 10/17/19 17:05 Zofran Injection IVPUSH 4 mg Q6H PRN Administration NAUSEA AND/OR VOMITING Pantoprazole Sodium 40 mg 10/16/19 10:00 10/18/19 10:21 Protonix - PO 40 mg DAILY DEV Administration Rifaximin 550 mg 10/17/19 11:00 10/18/19 10:22 Xifaxan - PO 550 mg BID DEV Administration Rosuvastatin Calcium 5 mg 10/15/19 22:00 10/17/19 21:34 Crestor - PO 5 mg HS DEV Administration Tamsulosin HCl 0.4 mg 10/16/19 08:30 10/18/19 08:30 Flomax - PO 0.4 mg DAILY@0830 DEV Administration Thiamine HCl 100 mg 10/16/19 10:00 10/18/19 10:22 Vitamin B1 - PO 100 mg DAILY DEV Administration Impression 1. ESRD 2. htn 3. hx etoh abuse 4. liver cirrhosis with tips 5. anemia 6. change in mental status Plan - HD tomorrow - can change lasix to 80 mg on non hd days - mental status improved - cont lactulose and rifiximin - pt was taking the lactulose every other day - 4 :15 180 abf 400 3 k bath
--- NOTE | 2019-10-18 15:03 | DS ---
Physical Examination Vital Signs: Vital Signs Temperature 98.3 F 10/18/19 06:11 Pulse Rate 66 10/18/19 06:11 Respiratory Rate 18 10/18/19 10:25 Blood Pressure 127/54 L 10/18/19 10:25 O2 Sat by Pulse Oximetry (%) 100 10/18/19 09:00 Constitutional: Yes: Calm Cardiovascular: Yes: Regular Rate and Rhythm, S1, S2 Respiratory: Yes: CTA Bilaterally Gastrointestinal: Yes: Normal Bowel Sounds, Soft Neurological: Yes: Alert Labs: CBC, BMP 10/17/19 07:30 10/17/19 07:30 Discharge Summary Problems reviewed: Yes Reason For Visit: Altered Mental Status Current Active Problems Altered mental status, unspecified (Acute) Chronic right upper quadrant pain (Acute) Cirrhosis of liver (Acute) Hepatic encephalopathy (Acute) Hypotension (Acute) Other Procedures: brain MRI no acute infacrt. Carotid doppler no high grade stenosis. abdomen sono hepatic cirrhosis and TIPS catheter in place Hospital Course: Patient is a 49 y/o male with past medical history of HTN, HLD, NIDDM, CKD on HD (), Cirrhosis secondary to chronic ETOH abuse s/p TIPS, depression, multiple UGI bleeds needing esophageal varice banding. Patient presented to [facility] ER from [facility] where there was an acute change in mental status. Patient is poor historian, when asked what brought him to the ER he was not sure the reason. He is alert and oriented to name and location, on date he believes it is 2011. patient got HD and latulose and rfaximin mental status improved no ready to go home Condition: Stable - Instructions Referrals: Dang Sparks MD [Primary Care Provider] - Brady De La Torre [Non Staff, Medical] - (at medical center) - Home Medications Comprehensive Discharge Medication List: Ambulatory Orders Multivitamin [One Daily] 1 each PO DAILY #30 tablet 09/27/17 Lactulose (Oral Use) [Cephulac -] 20 gm PO BID #1800 ml 05/08/18 Tamsulosin HCl [Flomax -] 0.4 mg PO DAILY@0830 #30 cap.er.24h 05/08/18 Acetaminophen [Tylenol .Regular Strength -] 650 mg PO Q6H PRN tablet 07/08/18 Thiamine HCl [Vitamin B1 -] 100 mg PO DAILY #30 tablet 07/08/18 levETIRAcetam [Keppra -] 500 mg PO BID 07/09/19 Folic Acid 1 mg PO DAILY #30 tablet 07/10/19 Pantoprazole Sodium [Protonix] 40 mg PO DAILY #30 tablet. 09/19/19 Carvedilol [Coreg -] 25 mg PO BID 10/15/19 Ferric Citrate [Auryxia] 2 tab PO AC 10/15/19 Magnesium Oxide [Magox 400] 400 mg PO DAILY 10/15/19 Rifaximin [Xifaxan -] 550 mg PO TID 10/15/19 Acetaminophen [Tylenol .Regular Strength -] 650 mg PO Q6H PRN tablet 10/18/19 Fluoxetine HCl [Prozac -] 40 mg PO DAILY #0 capsule 10/18/19 Furosemide [Lasix -] 80 mg PO DAILY #30 tablet 10/18/19 Levothyroxine [Synthroid -] 50 mcg PO DAILY@0700 tablet 10/18/19 Rifaximin [Xifaxan -] 550 mg PO BID tablet 10/18/19
[2019-10-18 15:16] VITALS: BP 99/58; PULSE 57; TEMP 98.5
[2019-10-19] MEDS ORDERED: EPOETIN ALFA 3,000 UNIT/1 ML ML IVPUSH ONE (10:00)
[2019-10-20] MEDS ORDERED: FUROSEMIDE 40 MG TABLET (FP) PO SCH ×2 (10:00)
== END 2019-10-18 16:15 | disposition home or self-care (01) | DRG 441 ==
LOC: JER 10:39 → JERBED 13:06 → J4W 18:29
PROVIDERS: ADMIT Family Medicine; ATTEND Family Medicine
PROC: 5A1D70Z Performance of Urinary Filtration, Intermittent, Less than 6 Hours Per Day (ICD-10-PCS; principal; 2019-10-17)
DX: K72.90 Hepatic failure, unspecified without coma (principal); N18.6 End stage renal disease; G93.41 Metabolic encephalopathy; I12.0 Hypertensive chronic kidney disease with stage 5 chronic kidney disease or end stage renal disease; R41.82 Altered mental status, unspecified; E11.22 Type 2 diabetes mellitus with diabetic chronic kidney disease; E78.5 Hyperlipidemia, unspecified; K70.30 Alcoholic cirrhosis of liver without ascites; D64.9 Anemia, unspecified; I95.9 Hypotension, unspecified; Z99.2 Dependence on renal dialysis; R10.11 Right upper quadrant pain
CPT/HCPCS: 36415; 70450-TC; 70551-TC; 71045-TC-FY; 76705-TC; 80053; 80061; 82140; 82550; 82962; 83036; 83540; 83550; 83721; 83735; 84100; 84443; 84484; 85025; 85610; 85730; 86803; 86850; 86900; 86901; 87340; 93005; 93010; 93880-TC; 99285-25

== ENCOUNTER 2019-12-03 11:00 | Inpatient (IN) | payer OTHER ==
--- NOTE | 2019-12-03 11:15 | PDOC ---
History of Present Illness - General Stated Complaint: GI BLEED Time Seen by Provider: 12/03/19 11:14 - History of Present Illness Initial Comments: 49 year old male with PMH of HTN, HLD, NIDDM, CKD on HD (,,Mon), cirrhosis secondary to chronic ETOH abuse s/p TIPS, depression, multiple UGI bleeds needing esophageal varice banding presenting with nausea, NBNB vomiting, and bloody diarrhea for the past 4 days. Patient has had dark-tarry and occasional blight red bloody stools for the past few days. He also admits to epigastric pain, chest pain, and right upper quadrant pain. He has has had decreased PO because of the nausea. Denies fevers, chills, hematemesis or other symptoms. 12/03/19 12:00 Past History - Past Medical History Allergies/Adverse Reactions: Allergies Allergy/AdvReac Type Severity Reaction Status Date / Time piperacillin Allergy Severe Swelling Verified 12/03/19 11:53 sertraline [From Zoloft] Allergy Severe Difficulty Verified 12/03/19 11:53 Breathing shellfish derived Allergy Severe Swelling Verified 12/03/19 11:53 latex Allergy Mild Rash Verified 12/03/19 11:53 Home Medications: Ambulatory Orders Amlodipine Besylate 10 mg PO DAILY 12/03/19 Calcitriol [Rocaltrol -] 0.25 mcg PO WEEKLY 12/03/19 Ferric Citrate [Auryxia] 420 mg PO TID 12/03/19 Fluoxetine HCl 40 mg PO DAILY 12/03/19 Furosemide 80 mg PO UTDICT 12/03/19 Gabapentin 300 mg PO HS 12/03/19 Levothyroxine [Synthroid -] 50 mcg PO DAILY 12/03/19 Lisinopril 10 mg PO DAILY 12/03/19 Omeprazole 40 mg PO DAILY 12/03/19 Rifaximin [Xifaxan] 550 mg PO BID 12/03/19 levETIRAcetam [Keppra -] 500 mg PO BID 12/03/19 Anemia: Yes Asthma: No Cancer: No Cardiac Disorders: No CVA: No COPD: No CHF: No Dementia: No Diabetes: Yes Dialysis: Yes GI Disorders: Yes (cirrhosis etoh abuse) Disorders: No HTN: Yes Hypercholesterolemia: No Kidney Stones: No Liver Disease: Yes (CIRRHOSIS OF LIVER) Psychiatric Problems: Yes (DEPRESSION, ANXEITY) Seizures: Yes Thyroid Disease: No - Surgical History Abdominal Surgery: No Appendectomy: No Cardiac Surgery: No Cholecystectomy: No Lung Surgery: No Neurologic Surgery: No Orthopedic Surgery: Yes (right shoulder due to dislocation 6 years ago) - Reproductive History Testicular Surgery: No - Immunization History Immunization Up to Date: Yes - Psycho Social/Smoking Cessation Hx Smoking Status: No Smoking History: Current every day smoker Have you smoked in the past 12 months: Yes Number of Cigarettes Smoked Daily: 3 If you are a former smoker, when did you quit?: 2010 Cigars Per Day: 0 'Breaking Loose' booklet given: 02/22/18 Hx Alcohol Use: Yes (QUIT 1 YEAR AGO) Drug/Substance Use Hx: No Substance Use Type: None Hx Substance Use Treatment: Yes (ALCOHOL REHAB) Review of Systems - Review of Systems Constitutional: No: Chills, Diaphoresis, Fever, Loss of Appetite HEENTM: No: Blurred Vision, Cataracts Respiratory: No: Cough, Orthopnea, Shortness of Breath Cardiac (ROS): No: Chest Pain, Irregular Heart Rate ABD/GI: No: Nausea, Vomiting : No: Dysuria, Discharge Integumentary: Yes: Other (jaundice). No: Lesions, Lumps Neurological: No: Numbness, Paresthesia Psychiatric: No: Anxiety, Depression Hematologic/Lymphatic: Yes: Anemia. No: Blood Clots *Physical Exam - Physical Exam General Appearance: Yes: Nourished, Appropriately Dressed. No: Apparent Distress HEENT: positive: EOMI, CARYL, Normal ENT Inspection, Normal Voice Neck: positive: Trachea midline, Normal Thyroid, Supple. negative: Tender, Rigid Respiratory/Chest: positive: Lungs Clear, Normal Breath Sounds. negative: Chest Tender, Respiratory Distress, Accessory Muscle Use Cardiovascular: positive: Regular Rate, Tachycardia Gastrointestinal/Abdominal: positive: Normal Bowel Sounds, Tender (diffusely tender), Flat, Soft Lymphatic: negative: Adenopathy, Tenderness Musculoskeletal: positive: Normal Inspection. negative: CVA Tenderness, Decreased Range of Motion Extremity: positive: Normal Capillary Refill, Normal Inspection, Normal Range of Motion. negative: Tender Integumentary: positive: Normal Color, Dry, Warm Neurologic: positive: Fully Oriented, Alert, Normal Mood/Affect, Normal Response , Motor Strength /5 ED Treatment Course - LABORATORY CBC & Chemistry Diagram: 12/06/19 20:30 12/06/19 05:15 Medical Decision Making - Medical Decision Making 49 year old presenting with rectal bleeding and diffuse abdominal pain. Greatest concern for mesenteric ischemia vs. varicose/ AVM bleeding in the lower GI tract. Creatinine elevated but patient on dialysis, will dialyze after per conversation with Dr. Sparks since we need CTA. Discussed patient with Dr. Piña of GI and he didn't see the need for octreotide or protonix drip which we decided to continue. Lactate elevated and given 500 NS. Patient admitted for further workup. 12/03/19 13:07 Discharge - Discharge Information Problems reviewed: Yes Clinical Impression/Diagnosis: Diffuse abdominal pain, Rectal bleeding Condition: Stable - Admission Yes - Follow up/Referral - Patient Discharge Instructions - Post Discharge Activity
[2019-12-03 12:12] LABS: BASO % 0.9 % (0-2.0); EOS % 0.9 % (0-4.5); HEMATOCRIT 20.5 % (35.4-49); LYMPH % 12.7 % (8-40); MCH 31.6 pg (25.7-33.7); MCHC 34.2 g/dl (32.0-35.9); MEAN CELL VOLUME 92.2 fl (80-96); MEAN PLT VOLUME 9.1 fl (7.5-11.1); MONO % 2.5 % (3.8-10.2); PLATELET COUNT 129 K/MM3 (134-434); RBC 2.22 M/mm3 (4.00-5.60); RDW 16.6 % (11.9-15.9); WHITE BLOOD COUNT 4.5 K/mm3 (4.0-10.0)
[2019-12-03 12:24] LABS: INR 1.05 (0.83-1.09); PROTHROMBIN TIME (PATIENT) 12.4 SEC (9.7-13.0)
[2019-12-03 12:48] LABS: ALBUMIN 3.6 g/dl (3.4-5.0); BILIRUBIN,TOTAL 0.8 mg/dL (0.2-1); BLOOD UREA NITROGEN 32.8 mg/dL (7-18); CALCIUM 7.7 mg/dL (8.5-10.1); POTASSIUM 4.2 mmol/L (3.5-5.1); TOT PROT 6.7 g/dl (6.4-8.2)
[2019-12-03 12:55] LABS: CREATININE 7.4 mg/dL (0.55-1.3)
[2019-12-03] MEDS ORDERED: PANTOPRAZOLE SODIUM 40 MG VIAL IVPUSH ONE (12:56)
[2019-12-03 12:57] LABS: PHOSPHOROUS 5.9 mg/dL (2.5-4.9)
[2019-12-03] MEDS ORDERED: VANCOMYCIN 1,000 MG in DEXTROSE 5%-WATER - 250 ML IVPB ONE (13:05)
[2019-12-03] MEDS ORDERED: CLINDAMYCIN 600MG PREMIX IVPB 600 MG/50 ML BAG IVPB ONE (13:06)
--- NOTE | 2019-12-03 13:45 | CON.ID ---
Consult Consult Specialty:: infectious diseases Referred by:: Reason for Consultation:: gi bleed,sepsis - History of Present Illness Chief Complaint: hematemesis and blleding per rectum History of Present Illness: 49M PMH HTN, HLD, ESRD (TTS), cirrhosis secondary to ETOH abuse s/p TIPS, depression, multiple Upper GI bleeds requiring esophageal varices banding who presented to ED with nausea, NBNB vomiting and bloody diarrhea for the previous 4 days. Patient also endorses dark tarry stools for the previous 4 weeks. He endorses diffuse abdominal pain rating 8/10. He endorses shortness of breath since this morning but denies any chest pain. He denies nonadherence to his medications, or change in urination. He has history of black stools and anemia in 08/2019, and had a endoscopy and colonoscopy done at that admission- colonoscopy revealed one tubular adenoma and mild sigmoid diverticulosis. Prior endoscopy at [facility] showed esophageal varices. He admits to following up with his GI Dr Luna but doesnt expand on when his last visit was. Patient last had dialysis on and missed his scheduled Monday session as he woke up too late. He denies any AMS, or loss of consciousness since his symptoms started. admitted to icu currently feels better - History Source History Provided By: Patient Limitations to Obtaining History: No Limitations - Past Medical History [employer] WORK[employer]: Yes: Seizure, Other (Jayden hole decompression of intracerebral bleed ? fall after seizre or hypertensive hemorrhage) Cardio/Vascular: Yes: HTN, Hyperlipdemia Gastrointestinal: Yes: GI Bleed (multiple esophageal variceal bleed and banding before TIPS was placed at [facility] [place]), Other (colon polyp removed by Dr De La Torre at [facility] ?) Hepatobiliary: Yes: Cirrhosis Renal/: Yes: Renal Inusuff, Hematuria, Hemodialysis Psych: Yes: Addictions (alcohol, previously cocaine and marijuana), Depression, Other (attempted suicide) Endocrine: Yes: Diabetes Mellitus - Past Surgical History Past Surgical History: Yes: Arthrosocopy (left knee), Colonoscopy, Upper Endoscopy - Alcohol/Substance Use Hx Alcohol Use: Yes (QUIT 1 YEAR AGO) History of Substance Use: reports: Cocaine (snorted), Marijuana - Smoking History Smoking history: Current every day smoker Have you smoked in the past 12 months: Yes Aproximately how many cigarettes per day: 3 If you are a former smoker, when did you quit?: 2010 - Social History Usual Living Arrangement: Alone ADL: Support Services 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 History of Recent Travel: No Home Medications - Allergies Allergies/Adverse Reactions: Allergies Allergy/AdvReac Type Severity Reaction Status Date / Time piperacillin Allergy Severe Swelling Verified 12/03/19 11:53 sertraline [From Zoloft] Allergy Severe Difficulty Verified 12/03/19 11:53 Breathing shellfish derived Allergy Severe Swelling Verified 12/03/19 11:53 latex Allergy Mild Rash Verified 12/03/19 11:53 - Home Medications Home Medications: Ambulatory Orders Calcitriol [Rocaltrol -] 0.25 mcg PO WEEKLY 12/03/19 Fluoxetine HCl 40 mg PO DAILY 12/03/19 RX: Amlodipine Besylate 10 mg PO DAILY 12/03/19 RX: Ferric Citrate [Auryxia] 420 mg PO TID 12/03/19 RX: Furosemide 80 mg PO UTDICT 12/03/19 RX: Gabapentin 300 mg PO HS 12/03/19 RX: Levothyroxine [Synthroid -] 50 mcg PO DAILY 12/03/19 RX: Lisinopril 10 mg PO DAILY 12/03/19 RX: Omeprazole 40 mg PO DAILY 12/03/19 Rifaximin [Xifaxan] 550 mg PO BID 12/03/19 levETIRAcetam [Keppra -] 500 mg PO BID 12/03/19 Review of Systems - Review of Systems Constitutional: reports: Weakness Eyes: reports: No Symptoms HENT: reports: No Symptoms Neck: reports: No Symptoms Cardiovascular: reports: No Symptoms Respiratory: reports: No Symptoms Gastrointestinal: reports: Melena, Rectal Bleeding Genitourinary: reports: No Symptoms Musculoskeletal: reports: No Symptoms Integumentary: reports: No Symptoms Neurological: reports: No Symptoms Endocrine: reports: No Symptoms Hematology/Lymphatic: reports: No Symptoms Psychiatric: reports: No Symptoms Physical Exam Vital Signs: Vital Signs Temperature 99.4 F 12/03/19 11:02 Pulse Rate 85 12/03/19 11:02 Respiratory Rate 24 H 12/03/19 11:02 Blood Pressure 138/69 12/03/19 11:02 O2 Sat by Pulse Oximetry (%) 100 12/03/19 11:15 Constitutional: Yes: No Distress, Calm Eyes: Yes: Conjunctiva Clear Cardiovascular: Yes: Regular Rate and Rhythm Respiratory: Yes: Regular, CTA Bilaterally Gastrointestinal: Yes: Soft, Hypoactive Bowel Sounds, Melena Musculoskeletal: Yes: WNL Extremities: Yes: WNL Neurological: Yes: Alert, Oriented Psychiatric: Yes: Alert, Oriented Labs: CBC, BMP 12/03/19 11:30 12/03/19 11:30 Imaging - Results Chest X-ray: Report Reviewed, Image Reviewed Cat Scan: Report Reviewed, Image Reviewed Assessment/Plan GI Bleed Acute Blood Loss Anemia Thrombocytopenia/Leukopenia Liver Cirrhosis s/p TIPS ESRD on HD Lactic Acidosis resolved Hypothyroidism Seizure Disorder plan continue mgmt as per icu transfusions monitor bleeding close watch await for all results cc 45 min
[2019-12-03] MEDS ORDERED: VANCOMYCIN 1 GRAM (PRE-DOCKED) 1,000 MG/250 ML BAG IVPB ONE (14:37)
[2019-12-03] MEDS ORDERED: PANTOPRAZOLE SODIUM 40 MG/100 ML BAG IVPB ONE (14:37)
--- NOTE | 2019-12-03 15:17 | PDOC ---
Documentation entered by Austin Rios SCRIBE, acting as scribe for Sharif Perez MD. Sharif Perez MD: This documentation has been prepared by the Gabriel david Daniel, SCRIBE, under my direction and personally reviewed by me in its entirety. I confirm that the documentation accurately reflects all work, treatment, procedures, and medical decision making performed by me. Attending Attestation - Resident Resident Name: Rosy Ramos - ED Attending Attestation I have performed the following: I have examined & evaluated the patient, The case was reviewed & discussed with the resident, I agree w/resident's findings & plan, Exceptions are as noted - HPI HPI: 12/03/19 12:29 The patient is a 49 year old male with a past medical history of HTN, HLD, diabetes, CKD (HD ,,), cirrhosis secondary to alcohol abuse s/p TIPS, depression, and multiple upper GI bleeds requiring esophageal variceal banding here today for evaluation of vomiting and diarrhea. The patient reports that he has had 4 days of nausea, non bloody non bilious vomiting, and multiple dark stools. He also reports epigastric/right upper quadrant abdominal pain for 4 days. Denies recent etoh or drug use. Patient denies headache, lightheadedness, focal weakness/numbness. Denies fever , chills. Denies shortness of breath/CP. Denies LE edema Allergies: piperacillin, sertaline, shellfish, latex PCP: Narayan Meek - Physicial Exam PE: 12/03/19 12:29 Agree with resident exam - Medical Decision Making 12/03/19 15:15 49-year-old male presents emergency department with non-bloody nonbilious emesis as well as black tarry stool concerning for recurrent GI bleed. Vitals within normal limits. Patient with epigastric and right upper quadrant tenderness to palpation. Will obtain labs and right upper quadrant ultrasound. Differential includes GI bleed secondary to esophageal varices. We will plan for PPI and octreotide, transfusion and consult GI. Labs remarkable for lactic acid of 7, thus will obtain a CTA to rule out mesenteric ischemia given abdominal pain. Dr. Thomson will be consulting on the patient. Anticipate admission to telemetry versus ICU.
[2019-12-03] MEDS ORDERED: SODIUM CHLORIDE 0.9% 500 ML INFUS.BAG IV ONE (15:25)
--- NOTE | 2019-12-03 15:38 | CON.GI ---
Consult Consult Specialty:: GI Referred by:: Hospitalist Service Reason for Consultation:: Rectal Bleeding - History of Present Illness Chief Complaint: Nausea, vomiting, abdominal pain, diarrhea History of Present Illness: 49yo male h/o etoh/cirrhosis, esophageal varices s/p TIPS, ESRD on HD, seizure disorder, craniotomy (details unclear) presenting with 2-3 days of nausea, vomiting, abdominal pain, diarrhea. He notices rectal bleeding as well today. Was admitted to [facility] 10/15 for altered mental statuis, treated for HE. Admitted to [facility] in 08/2019 with black stools and anemia s/p EGD revealing small esophageal ulcer, gastric biopsies showing chronic gastritis (HP negative), no esophageal varices seen. Colonoscopy revealed one tubular adenoma and mild sigmoid diverticulosis. Unclear if interval hepatology follow up. Denies recent travel, change in distary habits. Hgb 7 on admission with Na of 122. given abdominal pain in ED he underwent CTA of the abdomen and pelvis. He complains of chills. He refuses rectal exam or rectal temp. 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 fall after seizre or hypertensive hemorrhage) Cardio/Vascular: Yes: HTN, Hyperlipdemia Gastrointestinal: Yes: Diverticulosis (sigmoid), GI Bleed (multiple esophageal variceal bleed and banding before TIPS was placed at [facility]), Other (colon polyp removed by Dr De La Torre at [facility] ?) Hepatobiliary: Yes: Cirrhosis Renal/: Yes: Renal Inusuff, Hematuria, Hemodialysis Psych: Yes: Addictions (alcohol, previously cocaine and marijuana), Depression, Other (attempted suicide) Endocrine: Yes: Diabetes Mellitus - Past Surgical History Past Surgical History: Yes: Arthrosocopy (left knee), Colonoscopy, Upper Endoscopy - Alcohol/Substance Use Hx Alcohol Use: Yes (QUIT 1 YEAR AGO) History of Substance Use: reports: Cocaine (snorted), Marijuana - Smoking History Smoking history: Current every day smoker Have you smoked in the past 12 months: Yes Aproximately how many cigarettes per day: 3 If you are a former smoker, when did you quit?: 2010 - Social History Usual Living Arrangement: Alone ADL: Support Services 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 History of Recent Travel: No Home Medications - Allergies Allergies/Adverse Reactions: Allergies Allergy/AdvReac Type Severity Reaction Status Date / Time piperacillin Allergy Severe Swelling Verified 12/03/19 11:53 sertraline [From Zoloft] Allergy Severe Difficulty Verified 12/03/19 11:53 Breathing shellfish derived Allergy Severe Swelling Verified 12/03/19 11:53 latex Allergy Mild Rash Verified 12/03/19 11:53 - Home Medications Home Medications: Ambulatory Orders Amlodipine Besylate 10 mg PO DAILY 12/03/19 Calcitriol [Rocaltrol -] 0.25 mcg PO WEEKLY 12/03/19 Ferric Citrate [Auryxia] 420 mg PO TID 12/03/19 Fluoxetine HCl 40 mg PO DAILY 12/03/19 Furosemide 80 mg PO UTDICT 12/03/19 Gabapentin 300 mg PO HS 12/03/19 Levothyroxine [Synthroid -] 50 mcg PO DAILY 12/03/19 Lisinopril 10 mg PO DAILY 12/03/19 Omeprazole 40 mg PO DAILY 12/03/19 Rifaximin [Xifaxan] 550 mg PO BID 12/03/19 levETIRAcetam [Keppra -] 500 mg PO BID 12/03/19 Review of Systems - Review of Systems Constitutional: reports: Chills. denies: Fever Cardiovascular: denies: Chest Pain Respiratory: denies: SOB Gastrointestinal: reports: Abdominal Pain, Diarrhea, Nausea, Rectal Bleeding, Vomiting. denies: Melena, Vomiting Blood Physical Exam-GI Vital Signs: Vital Signs Temperature 99.4 F 12/03/19 11:02 Pulse Rate 85 12/03/19 11:02 Respiratory Rate 24 H 12/03/19 11:02 Blood Pressure 138/69 12/03/19 11:02 O2 Sat by Pulse Oximetry (%) 100 12/03/19 11:15 Constitutional: Yes: Mild Distress Cardiovascular: Yes: Tachycardia. No: Murmur Respiratory: Yes: CTA Bilaterally Gastrointestinal Inspection: No: Distention ...Auscultate: Yes: Normoactive Bowel Sounds ...Palpate: Yes: Soft, Tenderness (diffuse tenderness to palpation) ...Percussion: No: Tympanitic Edema: No (No LE edema) Neurological: Yes: Alert Labs: CBC, BMP 12/03/19 11:30 12/03/19 11:30 INR, PTT INR 1.05 (0.83-1.09) 12/03/19 11:50 Problem List - Problems (1) Rectal bleeding Assessment/Plan: Currently no active rectal bleeding. Refuses rectal exam. It appears as though the rectal bleeding was proceeded by bouts of nausea, vomiting and non-bloody diarrhea. Patient with abdominal pain as well. Awaiting CTA NPO IV Hydration Correction of lytes per primary team / renal Monitor H/H and for signs of ongoing GI bleeding Admit to monitored setting Afebrile on oral temp taken, however, patient with chills and feels warm. Refused rectal temp. ID evaluation Renal evaluation Code(s): K62.5 - HEMORRHAGE OF ANUS AND RECTUM
[2019-12-03 15:52] LABS: LIPASE 345 U/L (73-393)
[2019-12-03] MEDS ORDERED: ONDANSETRON 4 MG/2 ML VIAL IVPUSH ONE (16:08)
[2019-12-03] MEDS ORDERED: morphine CARPU-JECT 4 MG/1 ML DISP.SYRIN IVPUSH ONE (16:08)
[2019-12-03] MEDS ORDERED: AZTREONAM 1 GM VIAL (RESTRICTED TO ID) ONE (16:20)
[2019-12-03] MEDS ORDERED: morphine SULFATE 4 MG/ML VIAL ONE (16:20)
[2019-12-03] MEDS ORDERED: ONDANSETRON 4 MG/2 ML VIAL ONE (16:21)
--- NOTE | 2019-12-03 16:44 | CONSULT ---
Consultation: REQUESTING PROVIDER: CONSULT REQUEST: We have been asked to medically evaluate this patient for (specify). HISTORY OF PRESENT ILLNESS: REVIEW OF SYSTEMS: CONSTITUTIONAL: Absent: fever, chills, diaphoresis, generalized weakness, malaise, loss of appetite, weight change HEENT: Absent: rhinorrhea, nasal congestion, throat pain, throat swelling, difficulty swallowing, mouth swelling, ear pain, eye pain, visual changes CARDIOVASCULAR: Absent: chest pain, syncope, palpitations, irregular heart rate, lightheadedness, peripheral edema RESPIRATORY: Absent: cough, shortness of breath, dyspnea with exertion, orthopnea, wheezing, stridor, hemoptysis GASTROINTESTINAL: Absent: abdominal pain, abdominal distension, nausea, vomiting, diarrhea, constipation, melena, hematochezia GENITOURINARY: Absent: dysuria, frequency, urgency, hesitancy, hematuria, flank pain, genital pain MUSCULOSKELETAL: Absent: myalgia, arthralgia, joint swelling, back pain, neck pain SKIN: Absent: rash, itching, pallor HEMATOLOGIC/IMMUNOLOGIC: Absent: easy bleeding, easy bruising, lymphadenopathy, frequent infections ENDOCRINE: Absent: unexplained weight gain, unexplained weight loss, heat intolerance, cold intolerance NEUROLOGIC: Absent: headache, focal weakness or paresthesias, dizziness, unsteady gait, seizure, mental status changes, bladder or bowel incontinence PSYCHIATRIC: Absent: anxiety, depression, suicidal or homicidal ideation, hallucinations. PHYSICAL EXAMINATION Vital Signs - 24 hr 12/03/19 12/03/19 12/03/19 11:00 11:02 11:15 Temperature 98 F 99.4 F Pulse Rate 85 Pulse Rate [ 85 Apical] Respiratory 22 H 24 H Rate Blood Pressure 138/69 Blood Pressure 138/69 [Left Arm] O2 Sat by Pulse 100 100 100 Oximetry (%) 12/03/19 12/03/19 12/03/19 15:54 20:15 20:45 Temperature 98.6 F 98.4 F Pulse Rate 105 H 108 H Pulse Rate [ 126 H Apical] Respiratory 18 18 Rate Blood Pressure 183/106 H 145/70 Blood Pressure 163/95 [Left Arm] O2 Sat by Pulse 100 Oximetry (%) GENERAL: Awake, alert, and fully oriented, in no acute distress. HEAD: Normal with no signs of trauma. EYES: Pupils equal, round and reactive to light, extraocular movements intact, sclera anicteric, conjunctiva clear. No lid lag. EARS, NOSE, THROAT: Ears normal, nares patent, oropharynx clear without exudates. Moist mucous membranes. NECK: Normal range of motion, supple without lymphadenopathy, JVD, or masses. LUNGS: Breath sounds equal, clear to auscultation bilaterally. No wheezes, and no crackles. No accessory muscle use. HEART: Regular rate and rhythm, normal S1 and S2 without murmur, rub or gallop. ABDOMEN: Soft, nontender, not distended, normoactive bowel sounds, no guarding, no rebound, no masses. No hepatomegaly or splenomegaly. MUSCULOSKELETAL: Normal range of motion at all joints. No bony deformities or tenderness. No CVA tenderness. UPPER EXTREMITIES: 2+ pulses, warm, well-perfused. No cyanosis. No clubbing. Cap refill <2 seconds. No peripheral edema. LOWER EXTREMITIES: 2+ pulses, warm, well-perfused. No calf tenderness. No peripheral edema. NEUROLOGICAL: Cranial nerves II-XII intact. Normal speech. Normal gait. PSYCHIATRIC: Cooperative. Good eye contact. Appropriate mood and affect. SKIN: Warm, dry, normal turgor, no rashes or lesions noted. Laboratory Results - last 24 hr 12/03/19 12/03/19 12/03/19 11:30 11:30 11:30 WBC 4.5 RBC 2.22 L Hgb 7.0 L Hct 20.5 L D MCV 92.2 MCH 31.6 MCHC 34.2 RDW 16.6 H Plt Count 129 L D MPV 9.1 Absolute Neuts (auto) 3.7 Neutrophils % 83.0 H D Lymphocytes % 12.7 Monocytes % 2.5 L Eosinophils % 0.9 D Basophils % 0.9 Nucleated RBC % 0 PT with INR INR Sodium 122 L Potassium 4.2 Chloride 86 L Carbon Dioxide 15 L Anion Gap 21 H BUN 32.8 H Creatinine 7.4 H* Est GFR (CKD-EPI)AfAm 9.20 Est GFR (CKD-EPI)NonAf 7.94 Random Glucose 80 Lactic Acid 7.1 H* Calcium 7.7 L Phosphorus Magnesium Total Bilirubin 0.8 AST 36 ALT 15 Alkaline Phosphatase 130 H Creatine Kinase Creatine Kinase Index CK-MB (CK-2) Troponin I Total Protein 6.7 Albumin 3.6 Lipase Stool Occult Blood Blood Type Antibody Screen Crossmatch 12/03/19 12/03/19 12/03/19 11:30 11:30 11:50 WBC RBC Hgb Hct MCV MCH MCHC RDW Plt Count MPV Absolute Neuts (auto) Neutrophils % Lymphocytes % Monocytes % Eosinophils % Basophils % Nucleated RBC % PT with INR 12.40 INR 1.05 Sodium Potassium Chloride Carbon Dioxide Anion Gap BUN Creatinine Est GFR (CKD-EPI)AfAm Est GFR (CKD-EPI)NonAf Random Glucose Lactic Acid Calcium Phosphorus 5.9 H Magnesium 2.0 Total Bilirubin AST ALT Alkaline Phosphatase Creatine Kinase 213 Creatine Kinase Index 0.9 CK-MB (CK-2) 2.0 Troponin I < 0.02 Total Protein Albumin Lipase 345 Stool Occult Blood Blood Type B POSITIVE Antibody Screen Negative Crossmatch See Detail 12/03/19 12/03/19 11:50 18:00 WBC RBC Hgb Hct MCV MCH MCHC RDW Plt Count MPV Absolute Neuts (auto) Neutrophils % Lymphocytes % Monocytes % Eosinophils % Basophils % Nucleated RBC % PT with INR INR Sodium Potassium Chloride Carbon Dioxide Anion Gap BUN Creatinine Est GFR (CKD-EPI)AfAm Est GFR (CKD-EPI)NonAf Random Glucose Lactic Acid 7.4 H* Calcium Phosphorus Magnesium Total Bilirubin AST ALT Alkaline Phosphatase Creatine Kinase Creatine Kinase Index CK-MB (CK-2) Troponin I Total Protein Albumin Lipase Stool Occult Blood Negative Blood Type Antibody Screen Crossmatch Active Medications Generic Name Dose Route Start Last Admin Trade Name Freq PRN Reason Stop Dose Admin Acetaminophen 650 mg 12/03/19 20:26 Tylenol - PO Q4H PRN FEVER Chlorhexidine Gluconate 1 applic 12/03/19 22:00 12/03/19 21:39 Hibiclens For Decolonization - TP 1 applic HS DEV Administration Octreotide Acetate 200 mcg/ 500 mls @ 20.833 mls/hr 12/03/19 13:00 12/03/19 19:08 Octreotide Acetate 1,000 mcg/ IVPB 20.833 mls/hr Dextrose ASDIR DEV Administration Protocol Aztreonam 1 gm/ Dextrose 50 mls @ 100 mls/hr 12/03/19 14:00 12/03/19 18:00 IVPB 100 mls/hr BID@0200,1400 DEV Administration Protocol Sodium Chloride 250 mls @ 3,000 mls/hr 12/03/19 19:46 Normal Saline - IV 12/04/19 19:45 PRN PRN Hypotension during Dialysis Magnesium Sulfate/Dextrose 1 gm in 100 mls @ 100 mls/hr 12/03/19 20:44 12/03/19 21:37 Magnesium 1gm/D5w - IVPB 12/03/19 22:43 100 mls/hr Q1H DEV Administration Mupirocin 1 applic 12/03/19 22:00 12/03/19 21:39 Bactroban Ointment (For Decolonization) - NS 12/08/19 21:59 1 applic BID DEV Administration Pantoprazole Sodium 40 mg 12/03/19 22:00 12/03/19 21:38 Protonix Iv IVPUSH 40 mg BID DEV Administration ASSESSMENT/PLAN: Dispo: We will continue to follow the patient. Thank you for this consultative opportunity. <Samantha Guzman - Last Filed: 12/03/19 21:56> Consultation: REQUESTING PROVIDER: Dr. Perez CONSULT REQUEST: We have been asked to medically evaluate this patient for GI bleed. HISTORY OF PRESENT ILLNESS: 49M PMH HTN, HLD, NIDDM, CKD with HD on (,Mon,Mon), cirrhosis secondary to ETOH abuse s/p TIPS, depression, multiple UGI bleeds requiring esophageal varices banding who presented to ED with nausea, NBNB vomiting and bloody diarrhea for the previous 4 days. Patient also endorses dark tarry stools for the previous 4 weeks. He endorses abdominal pain and localizes it to. He endorses shortness of breath but denies any chest pain. He has no complaints of dysuria or hematuria. He has history of black stools and anemia in 08/2019, and had a endoscopy and colonoscopy done at that admission- colonoscopy revealed one tubular adenoma and mild sigmoid diverticulosis. Prior endoscopy at [facility] showed esophageal varices. Patient last had dialysis on and missed his scheduled Monday session. Patient had Hgb of 7, Na of 122, and lactic acid of 7.1 on admission. CTA Abdomen/Pelvis was completed which showed no evidence of mesenteric ischemia. REVIEW OF SYSTEMS: CONSTITUTIONAL: Present: fever, chills, loss of appetite Absent: diaphoresis, generalized weakness, malaise, weight change HEENT: Absent: rhinorrhea, nasal congestion, throat pain, throat swelling, difficulty swallowing, mouth swelling, ear pain, eye pain, visual changes CARDIOVASCULAR: Absent: chest pain, syncope, palpitations, irregular heart rate, light headedness, peripheral edema RESPIRATORY: Present: cough (productive with white sputum), shortness of breath Absent: dyspnea with exertion, orthopnea, wheezing, stridor, hemoptysis GASTROINTESTINAL: Present: abdominal pain, vomiting, diarrhea, melena, hematochezia Absent: abdominal distension, constipation GENITOURINARY: Absent: dysuria, frequency, urgency, hesitancy, hematuria, flank pain, genital pain MUSCULOSKELETAL: Absent: myalgia, arthralgia, joint swelling, back pain, neck pain SKIN: Absent: rash, itching, pallor HEMATOLOGIC/IMMUNOLOGIC: Absent: easy bleeding, easy bruising, lymphadenopathy, frequent infections ENDOCRINE: Absent: unexplained weight gain, unexplained weight loss, heat intolerance, cold intolerance NEUROLOGIC: Absent: headache, focal weakness or paresthesias, dizziness, unsteady gait, seizure, mental status changes, bladder or bowel incontinence PSYCHIATRIC: Absent: anxiety, depression, suicidal or homicidal ideation, hallucinations. PHYSICAL EXAMINATION Vital Signs - 24 hr 12/03/19 12/03/19 12/03/19 11:00 11:02 11:15 Temperature 98 F 99.4 F Pulse Rate 85 Pulse Rate [ 85 Apical] Respiratory 22 H 24 H Rate Blood Pressure 138/69 Blood Pressure 138/69 [Left Arm] O2 Sat by Pulse 100 100 100 Oximetry (%) 12/03/19 15:54 Temperature 98.6 F Pulse Rate Pulse Rate [ 126 H Apical] Respiratory Rate Blood Pressure Blood Pressure 163/95 [Left Arm] O2 Sat by Pulse 100 Oximetry (%) GENERAL: Awake, alert, and fully oriented, in mild discomfort. HEAD: Normal with no signs of trauma. EYES: EOMI, no lid lag. Scleral icterus. EARS, NOSE, THROAT: Moist mucous membranes. NECK: Normal range of motion, supple without lymphadenopathy LUNGS: Breath sounds equal, clear to auscultation bilaterally. HEART: Regular rate and rhythm, normal S1 and S2 without murmur, rub or gallop. ABDOMEN: Distended, soft. Nontender to palpation. No fluid wave. Patient refused rectal exam. MUSCULOSKELETAL: Normal range of motion at all joints. No bony deformities or tenderness. No CVA tenderness. UPPER EXTREMITIES: 2+ pulses, warm, well-perfused. No cyanosis. No clubbing. Cap refill <2 seconds. No peripheral edema. LOWER EXTREMITIES: 2+ pulses, warm, well-perfused. No calf tenderness. No peripheral edema. NEUROLOGICAL: Cranial nerves II-XII intact. Normal speech. Normal gait. PSYCHIATRIC: Cooperative. Good eye contact. Laboratory Results - last 24 hr 12/03/19 12/03/19 12/03/19 11:30 11:30 11:30 WBC 4.5 RBC 2.22 L Hgb 7.0 L Hct 20.5 L D MCV 92.2 MCH 31.6 MCHC 34.2 RDW 16.6 H Plt Count 129 L D MPV 9.1 Absolute Neuts (auto) 3.7 Neutrophils % 83.0 H D Lymphocytes % 12.7 Monocytes % 2.5 L Eosinophils % 0.9 D Basophils % 0.9 Nucleated RBC % 0 PT with INR INR Sodium 122 L Potassium 4.2 Chloride 86 L Carbon Dioxide 15 L Anion Gap 21 H BUN 32.8 H Creatinine 7.4 H* Est GFR (CKD-EPI)AfAm 9.20 Est GFR (CKD-EPI)NonAf 7.94 Random Glucose 80 Lactic Acid 7.1 H* Calcium 7.7 L Phosphorus Magnesium Total Bilirubin 0.8 AST 36 ALT 15 Alkaline Phosphatase 130 H Creatine Kinase Creatine Kinase Index CK-MB (CK-2) Troponin I Total Protein 6.7 Albumin 3.6 Lipase Stool Occult Blood Blood Type Antibody Screen Crossmatch 12/03/19 12/03/19 12/03/19 11:30 11:30 11:50 WBC RBC Hgb Hct MCV MCH MCHC RDW Plt Count MPV Absolute Neuts (auto) Neutrophils % Lymphocytes % Monocytes % Eosinophils % Basophils % Nucleated RBC % PT with INR 12.40 INR 1.05 Sodium Potassium Chloride Carbon Dioxide Anion Gap BUN Creatinine Est GFR (CKD-EPI)AfAm Est GFR (CKD-EPI)NonAf Random Glucose Lactic Acid Calcium Phosphorus 5.9 H Magnesium 2.0 Total Bilirubin AST ALT Alkaline Phosphatase Creatine Kinase 213 Creatine Kinase Index 0.9 CK-MB (CK-2) 2.0 Troponin I < 0.02 Total Protein Albumin Lipase 345 Stool Occult Blood Blood Type B POSITIVE Antibody Screen Negative Crossmatch See Detail 12/03/19 11:50 WBC RBC Hgb Hct MCV MCH MCHC RDW Plt Count MPV Absolute Neuts (auto) Neutrophils % Lymphocytes % Monocytes % Eosinophils % Basophils % Nucleated RBC % PT with INR INR Sodium Potassium Chloride Carbon Dioxide Anion Gap BUN Creatinine Est GFR (CKD-EPI)AfAm Est GFR (CKD-EPI)NonAf Random Glucose Lactic Acid Calcium Phosphorus Magnesium Total Bilirubin AST ALT Alkaline Phosphatase Creatine Kinase Creatine Kinase Index CK-MB (CK-2) Troponin I Total Protein Albumin Lipase Stool Occult Blood Negative Blood Type Antibody Screen Crossmatch Active Medications Generic Name Dose Route Start Last Admin Trade Name Freq PRN Reason Stop Dose Admin Octreotide Acetate 200 mcg/ 500 mls @ 20.833 mls/hr 12/03/19 13:00 Octreotide Acetate 1,000 mcg/ IVPB Dextrose ASDIR [facility] Protocol Aztreonam 1 gm/ Dextrose 50 mls @ 100 mls/hr 12/03/19 14:00 IVPB BID@0200,1400 [facility] Protocol ASSESSMENT/PLAN: 49M PMH HTN, HLD, NIDDM, CKD with HD on (,Mon,Mon), cirrhosis secondary to ETOH abuse s/p TIPS, depression, multiple UGI bleeds requiring esophageal varices banding who presented to ED with GI bleed and acute on chronic renal failure after missing dialysis. Neuro -Pt is AAOx3. -Will continue to monitor -No signs of metabolic encephalopathy. Cardiovascular -Patient has hx of HTN. -Denies any chest pain, initial troponin negative -F/U trops -Restart home BP meds -Patient had QTC of Pulmonary -Patient complaining of SOB -Satting 100% on RA, lungs CTAB -CTA notes small right pleural effusion GI -Patient complains of melena, nausea, NBNB vomiting, hematochezia -Patient has hx of multiple UGI bleeds, cirrohisis secondary to ETOH -Patient refused rectal exam, however ED team was able to do rectal and observed bright red blood per rectum as well as melenotic stool in the vault. -CTA negative for acute mesenteric ischemia. Acute mesenteric ischemia would not appear if early stage. Repeat CT recommended if needed. -Abdominal U/S does not show evidence of cholecystitis -Octeotride drip started -Protonix IV BID -1 unit of PRBC given -GI consulted, appreciate recs Renal -Patient is on HD Monday, , Monday. Last HD was on . -Na of 122, HCO3 of 15, BUN 32.8, Creatinine 7.4 -Lactic acidosis- 7.1, 7.4 -Emergent HD -F/U repeat CMP -Nephrology consulted, appreciate recs ID -Patient had lactic acidosis of 7.1 and 7.4 -Aztreonam given -ID consulted, appreciate recs Heme -Hgb of 7.0 on admission -1 unit of PRBC given -F/U repeat CBC F: On dialysis, restrict fluids E: Monitor CMP N: NPO DVT Prophylaxis: SCDs Dispo: We will continue to follow the patient. Thank you for this consultative opportunity. <Isael Chi - Last Filed: 12/04/19 06:24> Visit type - Emergency Visit Emergency Visit: Yes ED Registration Date: 12/03/19 Care time: The patient presented to the Emergency Department on the above date and was hospitalized for further evaluation of their emergent condition. - New Patient This patient is new to me today: Yes Date on this admission: 12/03/19 - Critical Care Critical Care patient: Yes Total Critical Care Time (in minutes): 45 Critical Care Statement: The care of this patient involved high complexity decision making to prevent further life threatening deterioration of the patient's condition and/or to evaluate & treat vital organ system(s) failure or risk of failure. <Isael Chi - Last Filed: 12/04/19 06:24> ATTENDING PHYSICIAN STATEMENT I saw and evaluated the patient. I reviewed the resident's note and discussed the case with the resident. I agree with the resident's findings and plan as documented. SUBJECTIVE: OBJECTIVE: ASSESSMENT AND PLAN: <Samantha Guzman - Last Filed: 12/03/19 21:56> ATTENDING PHYSICIAN STATEMENT I saw and evaluated the patient. I reviewed the resident's note and discussed the case with the resident. I agree with the resident's findings and plan as documented. SUBJECTIVE: OBJECTIVE: ASSESSMENT AND PLAN: <Isael Chi - Last Filed: 12/04/19 06:24>
--- NOTE | 2019-12-03 17:43 | CONSULT ---
Consult Consult Specialty:: Nephrology Reason for Consultation:: ESRD - History of Present Illness Chief Complaint: rectal bleeding History of Present Illness: Pt is a 49 year old make with pmhx of htn, hld, DM, CKD, TIPS, liver cirrhosis secondary to etoh and ESRD who presents to the ER with rectal bleeding. He says that he has been vomiting and having bloody diarrhea for the last four days. He missed his last HD on Monday. He was last dialyzed on of last week. He denies chest pain. He does complain of shortness of breath with exertion. he denies fevers or chills. 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 fall after seizre or hypertensive hemorrhage) Cardio/Vascular: Yes: HTN, Hyperlipdemia Gastrointestinal: Yes: Diverticulosis (sigmoid), GI Bleed (multiple esophageal variceal bleed and banding before TIPS was placed at [facility] [place]), Other (colon polyp removed by Dr De La Torre at [facility] ?) Hepatobiliary: Yes: Cirrhosis Renal/: Yes: Renal Inusuff, Hematuria, Hemodialysis Psych: Yes: Addictions (alcohol, previously cocaine and marijuana), Depression, Other (attempted suicide) Endocrine: Yes: Diabetes Mellitus - Past Surgical History Past Surgical History: Yes: Arthrosocopy (left knee), Colonoscopy, Upper Endoscopy - Alcohol/Substance Use Hx Alcohol Use: Yes (QUIT 1 YEAR AGO) History of Substance Use: reports: Cocaine (snorted), Marijuana - Smoking History Smoking history: Current every day smoker Have you smoked in the past 12 months: Yes Aproximately how many cigarettes per day: 3 If you are a former smoker, when did you quit?: 2010 - Social History Usual Living Arrangement: Alone ADL: Support Services 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 History of Recent Travel: No Home Medications - Allergies Allergies/Adverse Reactions: Allergies Allergy/AdvReac Type Severity Reaction Status Date / Time piperacillin Allergy Severe Swelling Verified 12/03/19 11:53 sertraline [From Zoloft] Allergy Severe Difficulty Verified 12/03/19 11:53 Breathing shellfish derived Allergy Severe Swelling Verified 12/03/19 11:53 latex Allergy Mild Rash Verified 12/03/19 11:53 - Home Medications Home Medications: Ambulatory Orders Amlodipine Besylate 10 mg PO DAILY 12/03/19 Calcitriol [Rocaltrol -] 0.25 mcg PO WEEKLY 12/03/19 Ferric Citrate [Auryxia] 420 mg PO TID 12/03/19 Fluoxetine HCl 40 mg PO DAILY 12/03/19 Furosemide 80 mg PO UTDICT 12/03/19 Gabapentin 300 mg PO HS 12/03/19 Levothyroxine [Synthroid -] 50 mcg PO DAILY 12/03/19 Lisinopril 10 mg PO DAILY 12/03/19 Omeprazole 40 mg PO DAILY 12/03/19 Rifaximin [Xifaxan] 550 mg PO BID 12/03/19 levETIRAcetam [Keppra -] 500 mg PO BID 12/03/19 Family Medical History Family History: Denies Review of Systems - Review of Systems Constitutional: reports: Malaise Eyes: reports: No Symptoms HENT: reports: No Symptoms Neck: reports: No Symptoms Cardiovascular: reports: No Symptoms Respiratory: reports: No Symptoms Gastrointestinal: reports: Rectal Bleeding Musculoskeletal: reports: No Symptoms Integumentary: reports: No Symptoms Neurological: reports: No Symptoms Endocrine: reports: No Symptoms Hematology/Lymphatic: reports: No Symptoms Psychiatric: reports: No Symptoms Physical Exam Vital Signs: Vital Signs Temperature 98.6 F 12/03/19 15:54 Pulse Rate 126 H 12/03/19 15:54 Respiratory Rate 24 H 12/03/19 11:02 Blood Pressure 163/95 12/03/19 15:54 O2 Sat by Pulse Oximetry (%) 100 12/03/19 15:54 Constitutional: Yes: Calm Eyes: Yes: Conjunctiva Clear HENT: Yes: Atraumatic Neck: Yes: Supple Cardiovascular: Yes: S1, S2 Respiratory: Yes: On Nasal O2 Gastrointestinal: Yes: Normal Bowel Sounds, Soft Renal/: Yes: WNL Musculoskeletal: Yes: WNL Edema: No Neurological: Yes: Oriented Psychiatric: Yes: Oriented Labs: CBC, BMP 12/03/19 11:30 12/03/19 11:30 Imaging - Results Chest X-ray: Report Reviewed Cat Scan: Report Reviewed Problem List - Problems (1) Rectal bleeding Code(s): K62.5 - HEMORRHAGE OF ANUS AND RECTUM (2) ESRD (end stage renal disease) Code(s): N18.6 - END STAGE RENAL DISEASE Assessment/Plan Current Medications Generic Name Dose Route Start Last Admin Trade Name Freq PRN Reason Stop Dose Admin Chlorhexidine Gluconate 1 applic 12/03/19 22:00 Hibiclens For Decolonization - TP HS [facility] Octreotide Acetate 200 mcg/ 500 mls @ 20.833 mls/hr 12/03/19 13:00 Octreotide Acetate 1,000 mcg/ IVPB Dextrose ASDIR [facility] Protocol Aztreonam 1 gm/ Dextrose 50 mls @ 100 mls/hr 12/03/19 14:00 IVPB BID@0200,1400 [facility] Protocol Mupirocin 1 applic 12/03/19 22:00 Bactroban Ointment (For Decolonization) - NS 12/08/19 21:59 BID [facility] Impression 1. ESRD 2. htn 3. hx etoh abuse 4. liver cirrhosis with tips 5. anemia 6. rectal bleeding 7. lactic acidosis Plan - HD today - GI input appreciated - transfuse prbc - will not uf volume on hd - agree with ICU admission - discussed with ER - 4 :15 180 abf 400 3 k bath
[2019-12-03] MEDS: AZTREONAM 1 GM in DEXTROSE 5%-WATER - 50 ML IVPB SCH (18:00)
[2019-12-03] MEDS: OCTREOTIDE ACETATE 200 MCG, OCTREOTIDE ACETATE 1,000 MCG in DEXTROSE 5%-WATER - 496 ML IVPB SCH (19:08)
[2019-12-03] MEDS ORDERED: EPOETIN ALFA 10,000 UNIT/1 ML VIAL IVPUSH ONE (19:45)
[2019-12-03] MEDS ORDERED: SODIUM CHLORIDE 250 ML IV PRN (19:46)
[2019-12-03] MEDS ORDERED: PROMETHAZINE HCL 25 MG/1 ML VIAL IVPUSH ONE (20:24)
[2019-12-03] MEDS ORDERED: ACETAMINOPHEN 325 MG TABLET (FP) PO PRN (20:26)
[2019-12-03] MEDS: MAGNESIUM 1GM/D5W - 1 GM/100 ML IVPB IVPB SCH ×2 (21:37→22:41)
[2019-12-03] MEDS: PANTOPRAZOLE SODIUM 40 MG VIAL IVPUSH SCH (21:38)
[2019-12-03] MEDS: CHLORHEXIDINE GLUCONATE 4% CLEANSER FOR DECOLONIZATION TP SCH (21:39)
[2019-12-03] MEDS: MUPIROCIN 2% TOPICAL OINTMENT FOR DECOLONIZATION NS SCH (21:39)
--- NOTE | 2019-12-03 22:26 | HP ---
CHIEF COMPLAINT:bloody diarrhea PCP: Dr Meke HISTORY OF PRESENT ILLNESS: 49M PMH HTN, HLD, ESRD (TTS), cirrhosis secondary to ETOH abuse s/p TIPS, depression, multiple Upper GI bleeds requiring esophageal varices banding who presented to ED with nausea, NBNB vomiting and bloody diarrhea for the previous 4 days. Patient also endorses dark tarry stools for the previous 4 weeks. He endorses diffuse abdominal pain rating 8/10. He endorses shortness of breath since this morning but denies any chest pain. He denies nonadherence to his medications, or change in urination. He has history of black stools and anemia in 08/2019, and had a endoscopy and colonoscopy done at that admission- colonoscopy revealed one tubular adenoma and mild sigmoid diverticulosis. Prior endoscopy at [facility] showed esophageal varices. He admits to following up with his GI Dr Cherly but doesnt expand on when his last visit was. Patient last had dialysis on and missed his scheduled Monday session as he woke up too late. He denies any AMS, or loss of consciousness since his symptoms started. ER course was notable for: (1) VS with tachy 126, BP 163/94, RR 24 O2sat 100% RA, CBC with anemia 7/20.5, CMP 122, CL/hco3 86/15, BUN/Cr 32.8/7.4, Ca 7.4, Phos 5.9, LA 7 -> 7.4 (2) trop neg, FOBT neg. 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 Social History: Smoking:occasional smoker one cig here and there Alcohol: former heavy drinker since 1 yr Drugs: denies Allergies piperacillin Allergy (Severe, Verified 12/03/19 11:53) Swelling sertraline [From Zoloft] Allergy (Severe, Verified 12/03/19 11:53) Difficulty Breathing shellfish derived Allergy (Severe, Verified 12/03/19 11:53) Swelling latex Allergy (Mild, Verified 12/03/19 11:53) Rash HOME MEDICATIONS: Home Medications Medication Instructions Recorded Amlodipine Besylate 10 mg PO DAILY 12/03/19 Calcitriol [Rocaltrol -] 0.25 mcg PO WEEKLY 12/03/19 Ferric Citrate [Auryxia] 420 mg PO TID 12/03/19 Fluoxetine HCl 40 mg PO DAILY 12/03/19 Furosemide 80 mg PO UTDICT 12/03/19 Gabapentin 300 mg PO HS 12/03/19 Levothyroxine [Synthroid -] 50 mcg PO DAILY 12/03/19 Lisinopril 10 mg PO DAILY 12/03/19 Omeprazole 40 mg PO DAILY 12/03/19 Rifaximin [Xifaxan] 550 mg PO BID 12/03/19 levETIRAcetam [Keppra -] 500 mg PO BID 12/03/19 REVIEW OF SYSTEMS CONSTITUTIONAL: Absent: fever, chills, diaphoresis, generalized weakness, malaise, loss of appetite, weight change HEENT: Absent: rhinorrhea, nasal congestion, throat pain, throat swelling, difficulty swallowing, mouth swelling, ear pain, eye pain, visual changes CARDIOVASCULAR: Absent: chest pain, syncope, palpitations, irregular heart rate, lightheadedness , peripheral edema RESPIRATORY: shortness of breath Absent: cough, dyspnea with exertion, orthopnea, wheezing, stridor, hemoptysis GASTROINTESTINAL: abdominal pain,nausea, vomiting, diarrhea, melena, hematochezia Absent: abdominal distension, constipation GENITOURINARY: Absent: dysuria, frequency, urgency, hesitancy, hematuria, flank pain, genital pain MUSCULOSKELETAL: Absent: myalgia, arthralgia, joint swelling, back pain, neck pain SKIN: Absent: rash, itching, pallor HEMATOLOGIC/IMMUNOLOGIC: Absent: easy bleeding, easy bruising, lymphadenopathy, frequent infections ENDOCRINE: Absent: unexplained weight gain, unexplained weight loss, heat intolerance, cold intolerance NEUROLOGIC: Absent: headache, focal weakness or paresthesias, dizziness, unsteady gait, seizure, mental status changes, bladder or bowel incontinence PSYCHIATRIC: Absent: anxiety, depression, suicidal or homicidal ideation, hallucinations. PHYSICAL EXAMINATION Vital Signs - 24 hr 12/03/19 12/03/19 12/03/19 11:00 11:02 11:15 Temperature 98 F 99.4 F Pulse Rate 85 Pulse Rate [ 85 Apical] Respiratory 22 H 24 H Rate Blood Pressure 138/69 Blood Pressure 138/69 [Left Arm] O2 Sat by Pulse 100 100 100 Oximetry (%) 12/03/19 12/03/19 12/03/19 15:54 20:15 20:45 Temperature 98.6 F 98.4 F Pulse Rate 105 H 108 H Pulse Rate [ 126 H Apical] Respiratory 18 18 Rate Blood Pressure 183/106 H 145/70 Blood Pressure 163/95 [Left Arm] O2 Sat by Pulse 100 Oximetry (%) GENERAL: Awake, alert, and fully oriented, in mild distress. HEAD: Normal with no signs of trauma. EYES: Pupils equal, round and reactive to light, extraocular movements intact, sclera anicteric, conjunctiva clear. No lid lag. EARS, NOSE, THROAT: oropharynx clear without exudates. Moist mucous membranes. NECK: Normal range of motion, supple without lymphadenopathy, JVD, or masses. LUNGS: Breath sounds equal, clear to auscultation bilaterally. No wheezes, and no crackles. No accessory muscle use. HEART: Regular rate and rhythm, normal S1 and S2 without murmur, rub or gallop. ABDOMEN: Soft, diffuse tender, not distended, normoactive bowel sounds, no guarding, no rebound, no masses. No hepatomegaly or splenomegaly. UPPER EXTREMITIES: 2+ pulses, warm, well-perfused. No cyanosis. No clubbing. No peripheral edema. LOWER EXTREMITIES: 2+ pulses, warm, well-perfused. No calf tenderness. No peripheral edema. PSYCHIATRIC: anxious and slightly agitated SKIN: Warm, dry, normal turgor, no rashes or lesions noted, normal capillary refill. Laboratory Results - last 24 hr 12/03/19 12/03/19 12/03/19 11:30 11:30 11:30 WBC 4.5 RBC 2.22 L Hgb 7.0 L Hct 20.5 L D MCV 92.2 MCH 31.6 MCHC 34.2 RDW 16.6 H Plt Count 129 L D MPV 9.1 Absolute Neuts (auto) 3.7 Neutrophils % 83.0 H D Lymphocytes % 12.7 Monocytes % 2.5 L Eosinophils % 0.9 D Basophils % 0.9 Nucleated RBC % 0 PT with INR INR Sodium 122 L Potassium 4.2 Chloride 86 L Carbon Dioxide 15 L Anion Gap 21 H BUN 32.8 H Creatinine 7.4 H* Est GFR (CKD-EPI)AfAm 9.20 Est GFR (CKD-EPI)NonAf 7.94 Random Glucose 80 Lactic Acid 7.1 H* Calcium 7.7 L Phosphorus Magnesium Total Bilirubin 0.8 AST 36 ALT 15 Alkaline Phosphatase 130 H Creatine Kinase Creatine Kinase Index CK-MB (CK-2) Troponin I Total Protein 6.7 Albumin 3.6 Lipase Stool Occult Blood Blood Type Antibody Screen Crossmatch 12/03/19 12/03/19 12/03/19 11:30 11:30 11:50 WBC RBC Hgb Hct MCV MCH MCHC RDW Plt Count MPV Absolute Neuts (auto) Neutrophils % Lymphocytes % Monocytes % Eosinophils % Basophils % Nucleated RBC % PT with INR 12.40 INR 1.05 Sodium Potassium Chloride Carbon Dioxide Anion Gap BUN Creatinine Est GFR (CKD-EPI)AfAm Est GFR (CKD-EPI)NonAf Random Glucose Lactic Acid Calcium Phosphorus 5.9 H Magnesium 2.0 Total Bilirubin AST ALT Alkaline Phosphatase Creatine Kinase 213 Creatine Kinase Index 0.9 CK-MB (CK-2) 2.0 Troponin I < 0.02 Total Protein Albumin Lipase 345 Stool Occult Blood Blood Type B POSITIVE Antibody Screen Negative Crossmatch See Detail 12/03/19 12/03/19 11:50 18:00 WBC RBC Hgb Hct MCV MCH MCHC RDW Plt Count MPV Absolute Neuts (auto) Neutrophils % Lymphocytes % Monocytes % Eosinophils % Basophils % Nucleated RBC % PT with INR INR Sodium Potassium Chloride Carbon Dioxide Anion Gap BUN Creatinine Est GFR (CKD-EPI)AfAm Est GFR (CKD-EPI)NonAf Random Glucose Lactic Acid 7.4 H* Calcium Phosphorus Magnesium Total Bilirubin AST ALT Alkaline Phosphatase Creatine Kinase Creatine Kinase Index CK-MB (CK-2) Troponin I Total Protein Albumin Lipase Stool Occult Blood Negative Blood Type Antibody Screen Crossmatch ASSESSMENT/PLAN: 49M PMH HTN, HLD, ESRD (TTS), cirrhosis secondary to ETOH abuse s/p TIPS, depression, multiple Upper GI bleeds requiring esophageal varices banding who presented to ED with nausea, NBNB vomiting and bloody diarrhea for the previous 4 days. admitted for HD and GI bleed GI bleeding of unclear source as pt refusing rectal exam by admitting team /H 06/15.5. 1 unit of PRBC given. f/u repeat CBC HX of esophageal varices , 1 tubular adenoma and diverticulosis ED rectal: bright red blood per rectum as well as melenotic stool in the vault complained of melena, nausea, NBNB vomiting, hematochezia, diffuse abdominal pain CTA negative for acute mesenteric ischemia. Acute mesenteric ischemia would not appear if early stage. Repeat CT recommended if needed. Abdominal U/S does not show evidence of cholecystitis GI consulted and rec: NPO ,IV Hydration, monitor H/H, renal consult Octeotride drip started Protonix IV BID LA 7-> 7.4 no UF volume on HD received 1L in ED ESRD (TTS) missed dialysis on monday Na 122, Cl 86, HCo3 15, BUN/Cr 32.8/7.4, Ca 7.7 SOB, CTA R pleural effusion most likely due to missed HD on sat actively receiving HD Renal Dr Sparks consulted , recs appreciated 1unit PRBC monitor lytes Lactic Acidosis with subjective fever and chills pt denied rectal temp Pt has hx of alcoholism and ESLD with cirrhosis s/p tips, missed HD (uremic?) acitvely on HD initial 7.1 -> 7.4 1L in ED, [address] PRBC [address]tre[address] Edwards consulted will cont to trend HTN BP 163/94 mmHg NO chest pain initial troponin negative F/U trops Restart home BP meds actively on HD, will follow BP s/p HD Prolongued QTC QTC of IV magnesium sulfate given will monitor FEN actively getting HD, received 1L in ED Monitor lytes and replete as needed NPO DVT Ppx SCDs Admitted to ICU Visit type - Emergency Visit Emergency Visit: Yes ED Registration Date: 12/03/19 Care time: The patient presented to the Emergency Department on the above date and was hospitalized for further evaluation of their emergent condition. - New Patient This patient is new to me today: No - Critical Care Critical Care patient: Yes Total Critical Care Time (in minutes): 35 Critical Care Statement: The care of this patient involved high complexity decision making to prevent further life threatening deterioration of the patient 's condition and/or to evaluate & treat vital organ system(s) failure or risk of failure. ATTENDING PHYSICIAN STATEMENT I saw and evaluated the patient. I reviewed the resident's note and discussed the case with the resident. I agree with the resident's findings and plan as documented. SUBJECTIVE: OBJECTIVE: ASSESSMENT AND PLAN:
[2019-12-03] MEDS ORDERED: hydrOXYzine HCL 100 MG/2 ML VIAL IM ONE (22:42)
[2019-12-03] MEDS ORDERED: MAGNESIUM SULF 50% (8.12 MEQ/2 ML-1 GM VIAL) IVPB ONE (22:43)
[2019-12-03] MEDS ORDERED: diphenhydrAMINE HCL 25 MG CAPSULE (FP) PO ONE (23:26)
--- NOTE | 2019-12-03 23:50 | PN ---
Teaching Attending Note Name of Resident: Samantha Guzman ATTENDING PHYSICIAN STATEMENT I saw and evaluated the patient. I reviewed the resident's note and discussed the case with the resident. I agree with the resident's findings and plan as documented. 49 M h/o HTN, HLD, ESRD (TueThSat), cirrhosis secondary to ETOH abuse s/p TIPS, depression, multiple Upper GI bleeds requiring esophageal varices banding who presented to ED with nausea, NBNB vomiting and bloody diarrhea for the previous 4 days. Patient admitted for ARF with uremia and monitoring to r/o upper and lower GIB. Patient admitted to MICU service for further monitoring of electrolytes and hemodynamic status. Patient endorses severe nausea and retching but denies bloody stools, currently refusing rectal exam. GA mildly anxious, speaking in full sentences, tremulous, AAox3 HEENT NC/AT, scleral icterus present, EOMI, neck supple Chest CTAB, no wheezing or crackles Abd Soft, NT, ND, no guarding Ext No LE edema, no calf tenderness Vital Signs - 24 hr 12/03/19 12/03/19 12/03/19 11:00 11:02 11:15 Temperature 98 F 99.4 F Pulse Rate 85 Pulse Rate [ 85 Apical] Respiratory 22 H 24 H Rate Blood Pressure 138/69 Blood Pressure 138/69 [Left Arm] O2 Sat by Pulse 100 100 100 Oximetry (%) 12/03/19 12/03/19 12/03/19 15:54 20:15 20:45 Temperature 98.6 F 98.4 F Pulse Rate 105 H 108 H Pulse Rate [ 126 H Apical] Respiratory 18 18 Rate Blood Pressure 183/106 H 145/70 Blood Pressure 163/95 [Left Arm] O2 Sat by Pulse 100 Oximetry (%) 12/03/19 12/03/19 12/03/19 21:15 21:45 22:15 Temperature Pulse Rate 102 H 109 H 100 H Pulse Rate [ Apical] Respiratory 18 18 18 Rate Blood Pressure 166/79 135/68 134/60 Blood Pressure [Left Arm] O2 Sat by Pulse Oximetry (%) Laboratory Results - last 24 hr 12/03/19 12/03/19 12/03/19 11:30 11:30 11:30 WBC 4.5 RBC 2.22 L Hgb 7.0 L Hct 20.5 L D MCV 92.2 MCH 31.6 MCHC 34.2 RDW 16.6 H Plt Count 129 L D MPV 9.1 Absolute Neuts (auto) 3.7 Neutrophils % 83.0 H D Lymphocytes % 12.7 Monocytes % 2.5 L Eosinophils % 0.9 D Basophils % 0.9 Nucleated RBC % 0 PT with INR INR Sodium 122 L Potassium 4.2 Chloride 86 L Carbon Dioxide 15 L Anion Gap 21 H BUN 32.8 H Creatinine 7.4 H* Est GFR (CKD-EPI)AfAm 9.20 Est GFR (CKD-EPI)NonAf 7.94 Random Glucose 80 Lactic Acid 7.1 H* Calcium 7.7 L Phosphorus Magnesium Total Bilirubin 0.8 AST 36 ALT 15 Alkaline Phosphatase 130 H Creatine Kinase Creatine Kinase Index CK-MB (CK-2) Troponin I Total Protein 6.7 Albumin 3.6 Lipase Stool Occult Blood Blood Type Antibody Screen Crossmatch 12/03/19 12/03/19 12/03/19 11:30 11:30 11:50 WBC RBC Hgb Hct MCV MCH MCHC RDW Plt Count MPV Absolute Neuts (auto) Neutrophils % Lymphocytes % Monocytes % Eosinophils % Basophils % Nucleated RBC % PT with INR 12.40 INR 1.05 Sodium Potassium Chloride Carbon Dioxide Anion Gap BUN Creatinine Est GFR (CKD-EPI)AfAm Est GFR (CKD-EPI)NonAf Random Glucose Lactic Acid Calcium Phosphorus 5.9 H Magnesium 2.0 Total Bilirubin AST ALT Alkaline Phosphatase Creatine Kinase 213 Creatine Kinase Index 0.9 CK-MB (CK-2) 2.0 Troponin I < 0.02 Total Protein Albumin Lipase 345 Stool Occult Blood Blood Type B POSITIVE Antibody Screen Negative Crossmatch See Detail 12/03/19 12/03/19 11:50 18:00 WBC RBC Hgb Hct MCV MCH MCHC RDW Plt Count MPV Absolute Neuts (auto) Neutrophils % Lymphocytes % Monocytes % Eosinophils % Basophils % Nucleated RBC % PT with INR INR Sodium Potassium Chloride Carbon Dioxide Anion Gap BUN Creatinine Est GFR (CKD-EPI)AfAm Est GFR (CKD-EPI)NonAf Random Glucose Lactic Acid 7.4 H* Calcium Phosphorus Magnesium Total Bilirubin AST ALT Alkaline Phosphatase Creatine Kinase Creatine Kinase Index CK-MB (CK-2) Troponin I Total Protein Albumin Lipase Stool Occult Blood Negative Blood Type Antibody Screen Crossmatch Current Medications Generic Name Dose Route Start Last Admin Trade Name Freq PRN Reason Stop Dose Admin Acetaminophen 650 mg 12/03/19 20:26 Tylenol - PO Q4H PRN FEVER Chlorhexidine Gluconate 1 applic 12/03/19 22:00 12/03/19 21:39 Hibiclens For Decolonization - TP 1 applic HS DEV Administration Octreotide Acetate 200 mcg/ 500 mls @ 20.833 mls/hr 12/03/19 13:00 12/03/19 19:08 Octreotide Acetate 1,000 mcg/ IVPB 20.833 mls/hr Dextrose ASDIR DEV Administration Protocol Aztreonam 1 gm/ Dextrose 50 mls @ 100 mls/hr 12/03/19 14:00 12/03/19 18:00 IVPB 100 mls/hr BID@0200,1400 DEV Administration Protocol Sodium Chloride 250 mls @ 3,000 mls/hr 12/03/19 19:46 Normal Saline - IV 12/04/19 19:45 PRN PRN Hypotension during Dialysis Mupirocin 1 applic 12/03/19 22:00 12/03/19 21:39 Bactroban Ointment (For Decolonization) - NS 12/08/19 21:59 1 applic BID DEV Administration Pantoprazole Sodium 40 mg 12/03/19 22:00 12/03/19 21:38 Protonix Iv IVPUSH 40 mg BID DEV Administration A/P: 49 M ESRD on HD, HTN, alcoholic liver cirrhosis s/p TIPS presents with signs of uremia and reported black stool for the past few days. Currently HD stable getting dialyzed. ESRD on HD Patient exhibiting uremic sx actively receiving HD Renal Dr Sparks consulted , recs appreciated 1 unit PRBC monitor lytes, transfuse PRN lactic acidosis likely due to slow metabolic clearance, no overt signs of infection or ischemia empiric abx trend lactate after HD ID consult Upper/lower GIB No signs of bleeding however pt. refusing rectal exam Trend CBC, transfuse PRN, PPI BID GI consult HTN Restart BP meds DVT ppx: SCD/TEDs GI ppx: PPI BID FEN: no IVF, trend chem, Na restricted diet
[2019-12-04 01:09] LABS: EOS % 0.2 % (0-4.5); HEMATOCRIT 20.7 % (35.4-49); HEMOGLOBIN 7.2 GM/dL (11.7-16.9); LYMPH % 19.2 % (8-40); MCHC 34.8 g/dl (32.0-35.9); MEAN CELL VOLUME 92.1 fl (80-96); MEAN PLT VOLUME 9.3 fl (7.5-11.1); MONO % 7.2 % (3.8-10.2); NEUT % 72.4 % (42.8-82.8); PLATELET COUNT 68 K/MM3 (134-434); RBC 2.24 M/mm3 (4.00-5.60); RDW 15.7 % (11.9-15.9); WHITE BLOOD COUNT 2.6 K/mm3 (4.0-10.0)
[2019-12-04 01:37] LABS: BLOOD UREA NITROGEN 16.5 mg/dL (7-18); CALCIUM 7.9 mg/dL (8.5-10.1); CREATININE 4.2 mg/dL (0.55-1.3); POTASSIUM 3.3 mmol/L (3.5-5.1)
[2019-12-04] MEDS ORDERED: TRIMETHOBENZAMIDE HCL 200MG/2ML INJ IM PRN ×2 (02:00→02:07)
[2019-12-04] MEDS ORDERED: AZTREONAM 1 GM VIAL (RESTRICTED TO ID) ONE (02:09)
[2019-12-04] MEDS ORDERED: DEXTROSE 5%-WATER - 50 ML IVPB ONE (02:10)
[2019-12-04] MEDS: AZTREONAM 1 GM in DEXTROSE 5%-WATER - 50 ML IVPB SCH (02:21)
[2019-12-04] MEDS: KCL 10 MEQ IVPB 10 MEQ/100 ML INFUS.BAG IVPB SCH ×3 (02:21→04:31)
[2019-12-04] MEDS ORDERED: morphine SULFATE 4 MG/ML VIAL IVPUSH ONE (04:16)
[2019-12-04 07:05] LABS: BASO % 0.5 % (0-2.0); EOS % 0.6 % (0-4.5); HEMATOCRIT 19.2 % (35.4-49); LYMPH % 19.3 % (8-40); MCH 32.3 pg (25.7-33.7); MCHC 35.1 g/dl (32.0-35.9); MEAN CELL VOLUME 91.9 fl (80-96); MEAN PLT VOLUME 8.1 fl (7.5-11.1); MONO % 10.9 % (3.8-10.2); NEUT % 68.7 % (42.8-82.8); RBC 2.08 M/mm3 (4.00-5.60)
[2019-12-04 07:10] LABS: INR 1.3 (0.83-1.09); PROTHROMBIN TIME (PATIENT) 15.4 SEC (9.7-13.0)
[2019-12-04 07:20] LABS: WHITE BLOOD COUNT 1.5 K/mm3 (4.0-10.0)
[2019-12-04 07:21] LABS: HEMOGLOBIN 6.7 GM/dL (11.7-16.9)
[2019-12-04 07:22] LABS: PLATELET COUNT 33 K/MM3 (134-434)
[2019-12-04 07:42] LABS: ALBUMIN 2.7 g/dl (3.4-5.0); BILIRUBIN,TOTAL 2.4 mg/dL (0.2-1); BLOOD UREA NITROGEN 18.8 mg/dL (7-18); CREATININE 4.9 mg/dL (0.55-1.3); MAGNESIUM 2.4 mg/dL (1.8-2.4); POTASSIUM 3.6 mmol/L (3.5-5.1)
[2019-12-04] MEDS ORDERED: PT OWN MED DRAWER 7, Y5N ONE ×2 (08:32→14:10)
[2019-12-04] MEDS ORDERED: LIDOCAINE HCL 1%, 10 MG/ML (20ML VIAL) ONE (09:10)
[2019-12-04] MEDS ORDERED: LORazepam 2 MG/ML SDV VIAL ONE (09:20)
[2019-12-04] MEDS ORDERED: LORazepam 2 MG/ML SDV VIAL IVPUSH ONE (09:45)
--- NOTE | 2019-12-04 09:51 | PN ---
Physical Exam: SUBJECTIVE: Patient seen and examined Irritated by our questions. no acute complaints OBJECTIVE: Vital Signs Period Temp Pulse Resp BP Sys/Horton Pulse Ox Last 24 Hr 97.7 F-99.4 F 85-126 15-24 123-183/60-106 100-100 GENERAL: The patient is awake, alert, and fully oriented HEAD: Normal with no signs of trauma. EYES: PERRL, extraocular movements intact, sclera anicteric, conjunctiva clear. ENT: Ears normal, nares patent, oropharynx clear without exudates, moist mucous membranes. NECK: Trachea midline, full range of motion, supple. LUNGS: Breath sounds equal, clear to auscultation bilaterally, HEART: Regular rate and rhythm, S1, S2 without murmur, rub or gallop. ABDOMEN: soft. diffuse abdominal tenderness EXTREMITIES: 2+ pulses, warm, well-perfused, no edema. NEUROLOGICAL: Cranial nerves II through XII grossly intact. SKIN: Warm, dry, normal turgor, no rashes or lesions noted Laboratory Results - last 24 hr 12/03/19 12/03/19 12/03/19 11:30 11:30 11:30 WBC 4.5 RBC 2.22 L Hgb 7.0 L Hct 20.5 L D MCV 92.2 MCH 31.6 MCHC 34.2 RDW 16.6 H Plt Count 129 L D MPV 9.1 Absolute Neuts (auto) 3.7 Neutrophils % 83.0 H D Lymphocytes % 12.7 Monocytes % 2.5 L Eosinophils % 0.9 D Basophils % 0.9 Nucleated RBC % 0 PT with INR INR Sodium 122 L Potassium 4.2 Chloride 86 L Carbon Dioxide 15 L Anion Gap 21 H BUN 32.8 H Creatinine 7.4 H* Est GFR (CKD-EPI)AfAm 9.20 Est GFR (CKD-EPI)NonAf 7.94 Random Glucose 80 Serum Osmolality Lactic Acid 7.1 H* Calcium 7.7 L Phosphorus Magnesium Total Bilirubin 0.8 AST 36 ALT 15 Alkaline Phosphatase 130 H Creatine Kinase Creatine Kinase Index CK-MB (CK-2) Troponin I Total Protein 6.7 Albumin 3.6 Lipase Urine Osmolality Ur Random Sodium Ur Random Potassium Ur Random Chloride Stool Occult Blood Blood Type Antibody Screen Crossmatch 12/03/19 12/03/19 12/03/19 11:30 11:30 11:50 WBC RBC Hgb Hct MCV MCH MCHC RDW Plt Count MPV Absolute Neuts (auto) Neutrophils % Lymphocytes % Monocytes % Eosinophils % Basophils % Nucleated RBC % PT with INR 12.40 INR 1.05 Sodium Potassium Chloride Carbon Dioxide Anion Gap BUN Creatinine Est GFR (CKD-EPI)AfAm Est GFR (CKD-EPI)NonAf Random Glucose Serum Osmolality Lactic Acid Calcium Phosphorus 5.9 H Magnesium 2.0 Total Bilirubin AST ALT Alkaline Phosphatase Creatine Kinase 213 Creatine Kinase Index 0.9 CK-MB (CK-2) 2.0 Troponin I < 0.02 Total Protein Albumin Lipase 345 Urine Osmolality Ur Random Sodium Ur Random Potassium Ur Random Chloride Stool Occult Blood Blood Type B POSITIVE Antibody Screen Negative Crossmatch See Detail 12/03/19 12/03/19 12/03/19 11:50 18:00 22:45 WBC RBC Hgb Hct MCV MCH MCHC RDW Plt Count MPV Absolute Neuts (auto) Neutrophils % Lymphocytes % Monocytes % Eosinophils % Basophils % Nucleated RBC % PT with INR INR Sodium Potassium Chloride Carbon Dioxide Anion Gap BUN Creatinine Est GFR (CKD-EPI)AfAm Est GFR (CKD-EPI)NonAf Random Glucose Serum Osmolality Lactic Acid 7.4 H* 1.7 Calcium Phosphorus Magnesium Total Bilirubin AST ALT Alkaline Phosphatase Creatine Kinase Creatine Kinase Index CK-MB (CK-2) Troponin I Total Protein Albumin Lipase Urine Osmolality Ur Random Sodium Ur Random Potassium Ur Random Chloride Stool Occult Blood Negative Blood Type Antibody Screen Crossmatch 12/04/19 12/04/19 12/04/19 00:30 00:30 00:30 WBC 2.6 L RBC 2.24 L Hgb 7.2 L Hct 20.7 L MCV 92.1 MCH 32.0 MCHC 34.8 RDW 15.7 Plt Count 68 L D MPV 9.3 Absolute Neuts (auto) 1.9 Neutrophils % 72.4 Lymphocytes % 19.2 D Monocytes % 7.2 D Eosinophils % 0.2 Basophils % 1.0 Nucleated RBC % 0 PT with INR INR Sodium 129 L Potassium 3.3 L Chloride 91 L Carbon Dioxide 25 Anion Gap 13 BUN 16.5 Creatinine 4.2 H Est GFR (CKD-EPI)AfAm 18.24 Est GFR (CKD-EPI)NonAf 15.74 Random Glucose 97 Serum Osmolality 275 L Lactic Acid Calcium 7.9 L Phosphorus Magnesium Total Bilirubin AST ALT Alkaline Phosphatase Creatine Kinase Creatine Kinase Index CK-MB (CK-2) Troponin I 0.04 Total Protein Albumin Lipase Urine Osmolality Ur Random Sodium Ur Random Potassium Ur Random Chloride Stool Occult Blood Blood Type Antibody Screen Crossmatch 12/04/19 12/04/19 12/04/19 05:32 05:32 05:32 WBC 1.5 L* RBC 2.08 L Hgb 6.7 L* Hct 19.2 L MCV 91.9 MCH 32.3 MCHC 35.1 RDW 16.0 H Plt Count 33 L* D MPV 8.1 D Absolute Neuts (auto) 1.1 L Neutrophils % 68.7 Lymphocytes % 19.3 Monocytes % 10.9 H Eosinophils % 0.6 D Basophils % 0.5 Nucleated RBC % 0 PT with INR 15.40 H INR 1.30 H Sodium 129 L Potassium 3.6 Chloride 91 L Carbon Dioxide 28 Anion Gap 10 BUN 18.8 H Creatinine 4.9 H Est GFR (CKD-EPI)AfAm 15.14 Est GFR (CKD-EPI)NonAf 13.06 Random Glucose 108 H Serum Osmolality Lactic Acid Calcium 7.0 L Phosphorus 4.0 Magnesium 2.4 Total Bilirubin 2.4 H AST 20 ALT 11 L Alkaline Phosphatase 99 Creatine Kinase Creatine Kinase Index CK-MB (CK-2) Troponin I 0.03 Total Protein 5.0 L Albumin 2.7 L Lipase Urine Osmolality Ur Random Sodium Ur Random Potassium Ur Random Chloride Stool Occult Blood Blood Type Antibody Screen Crossmatch 12/04/19 12/04/19 06:30 06:30 WBC RBC Hgb Hct MCV MCH MCHC RDW Plt Count MPV Absolute Neuts (auto) Neutrophils % Lymphocytes % Monocytes % Eosinophils % Basophils % Nucleated RBC % PT with INR INR Sodium Potassium Chloride Carbon Dioxide Anion Gap BUN Creatinine Est GFR (CKD-EPI)AfAm Est GFR (CKD-EPI)NonAf Random Glucose Serum Osmolality Lactic Acid Calcium Phosphorus Magnesium Total Bilirubin AST ALT Alkaline Phosphatase Creatine Kinase Creatine Kinase Index CK-MB (CK-2) Troponin I Total Protein Albumin Lipase Urine Osmolality 211 L Ur Random Sodium 29 L Ur Random Potassium 23.0 L Ur Random Chloride 12 L Stool Occult Blood Blood Type Antibody Screen Crossmatch Active Medications Generic Name Dose Route Start Last Admin Trade Name Freq PRN Reason Stop Dose Admin Acetaminophen 650 mg 12/03/19 20:26 Tylenol - PO Q4H PRN FEVER Chlorhexidine Gluconate 1 applic 12/03/19 22:00 12/03/19 21:39 Hibiclens For Decolonization - TP 1 applic HS DEV Administration Octreotide Acetate 200 mcg/ 500 mls @ 20.833 mls/hr 12/03/19 13:00 12/03/19 19:08 Octreotide Acetate 1,000 mcg/ IVPB 20.833 mls/hr Dextrose ASDIR DEV Administration Protocol Aztreonam 1 gm/ Dextrose 50 mls @ 100 mls/hr 12/03/19 14:00 12/04/19 02:21 IVPB 100 mls/hr BID@0200,1400 DEV Administration Protocol Sodium Chloride 250 mls @ 3,000 mls/hr 12/03/19 19:46 Normal Saline - IV 12/04/19 19:45 PRN PRN Hypotension during Dialysis Levetiracetam 500 mg 12/04/19 10:00 Keppra Injection - IVPB BID DEV Levothyroxine Sodium 40 mcg 12/04/19 10:00 Synthroid Injection - IVPUSH DAILY DEV Mupirocin 1 applic 12/03/19 22:00 12/03/19 21:39 Bactroban Ointment (For Decolonization) - NS 12/08/19 21:59 1 applic BID DEV Administration Pantoprazole Sodium 40 mg 12/03/19 22:00 12/03/19 21:38 Protonix Iv IVPUSH 40 mg BID DEV Administration Trimethobenzamide HCl 200 mg 12/04/19 02:07 Tigan Injection - IM Q12H PRN NAUSEA ASSESSMENT/PLAN: 49M PMH HTN, HLD, NIDDM, CKD with HD on (,Mon,Mon), cirrhosis secondary to ETOH abuse s/p TIPS, depression, multiple UGI bleeds requiring esophageal varices banding who presented to ED with GI bleed and acute on chronic renal failure after missing dialysis. Neuro -Pt is AAOx3. Cardiovascular -Patient has hx of HTN. -Denies any chest pain, initial troponin negative -EKG today normal sinus rhythm prolonged QTc at 522. Pulmonary -CTA notes small right pleural effusion -Patient on room air SPO2 -continue to monitor GI -2 bloody bowel movements today (bright red blood). Hgb this a.m 6.7 after 1 unit of PRBC yesterday -dark stool observed in the vault with BRBPR in the ED -pt declined rectal exam in the unit -Switched from protonix IV push. now on protonix drip -Abdominal U/S negative for cholecystitis -Octeotride drip running -GI consulted, appreciate recs Renal -Patient is on HD Monday, , Monday. Last HD was on . -BUN/CR: 18.8/4.9 - Will get HD tomorrow per Nephrology (Dr. Sparks) -monitor CMP ID -Patient had lactic acidosis of 7.1 and 7.4 -Lactic acid now 1.7 - antibiotics d/c per ID (Dr. Edwards) Heme -Hgb of 7.0 on admission and 1 unit of PRBC was given -Hgb increased to 7.2 then dropped to 6.7 on a.m labs -2 more units of PRBC added with 1 of platelets -F/U repeat CBC F: On dialysis, restrict fluids E: Monitor CMP N: NPO DVT Prophylaxis: SCDs Lines: Central line in [facility] inserted today 12/04/2019 Dispo: We will continue to follow the patient. Thank you for this consultative opportunity. Problem List - Problems (1) Rectal bleeding Code(s): K62.5 - HEMORRHAGE OF ANUS AND RECTUM Visit type - Emergency Visit Emergency Visit: Yes ED Registration Date: 12/03/19 Care time: The patient presented to the Emergency Department on the above date and was hospitalized for further evaluation of their emergent condition. - New Patient This patient is new to me today: No - Critical Care Critical Care patient: No - Discharge Referral Referred to [facility] Med [facility] No ATTENDING PHYSICIAN STATEMENT I saw and evaluated the patient. I reviewed the resident's note and discussed the case with the resident. I agree with the resident's findings and plan as documented. SUBJECTIVE: OBJECTIVE: ASSESSMENT AND PLAN:
[2019-12-04] MEDS: levETIRAcetam 500 MG/5 ML INJECTION VIAL IVPB SCH ×2 (10:00→22:20)
[2019-12-04] MEDS: PANTOPRAZOLE SODIUM 40 MG VIAL IVPUSH SCH (10:00)
[2019-12-04] MEDS: LEVOTHYROXINE SODIUM 100 MCG VIAL IVPUSH SCH (10:01)
[2019-12-04] MEDS: MUPIROCIN 2% TOPICAL OINTMENT FOR DECOLONIZATION NS SCH ×2 (10:02→22:20)
[2019-12-04 11:09] LABS: ANISOCYTOSIS 1+; MACROCYTOSIS 0; PLATELET ESTIMATE DECREASED
--- NOTE | 2019-12-04 11:12 | EKG ---
Test Reason : Blood Pressure : / mmHG Vent. Rate : 088 BPM Atrial Rate : 088 BPM P-R Int : 140 ms QRS Dur : 092 ms QT Int : 432 ms P-R-T Axes : 016 022 029 degrees QTc Int : 522 ms NORMAL SINUS RHYTHM PROLONGED QT ABNORMAL ECG WHEN COMPARED WITH ECG OF 03-DEC-2019 23:16, NO SIGNIFICANT CHANGE WAS FOUND Confirmed by AMANDA THOMAS MD ([id number]) on 12/04/2019 11:12:03 AM Referred By: Addis CARLSON Confirmed By:AMANDA THOMAS MD
--- NOTE | 2019-12-04 11:37 | EKG ---
Test Reason : Blood Pressure : / mmHG Vent. Rate : 080 BPM Atrial Rate : 080 BPM P-R Int : 146 ms QRS Dur : 094 ms QT Int : 432 ms P-R-T Axes : 034 035 049 degrees QTc Int : 498 ms NORMAL SINUS RHYTHM PROLONGED QT ABNORMAL ECG WHEN COMPARED WITH ECG OF 15-OCT-2019 10:59, NO SIGNIFICANT CHANGE WAS FOUND Confirmed by AMANDA THOMAS MD ([id number]) on 12/04/2019 11:37:14 AM Referred By: Confirmed By:AMANDA THOMAS MD
--- NOTE | 2019-12-04 11:58 | PN ---
Progress Note, Physician History of Present Illness: Pt seen and examined at bedside. He is awake and alert. He feels better than yesterday. He tolerated HD last night. - Current Medication List Current Medications: Active Medications Acetaminophen (Tylenol -) 650 mg PO Q4H PRN PRN Reason: FEVER Chlorhexidine Gluconate (Hibiclens For Decolonization -) 1 applic TP HS [facility] Last Admin: 12/03/19 21:39 Dose: 1 applic Octreotide Acetate 200 mcg/Octreotide Acetate 1,000 mcg/Dextrose 500 mls @ 20.833 mls/hr IVPB ASDIR [facility]; Protocol Last Admin: 12/03/19 19:08 Dose: 20.833 mls/hr Aztreonam 1 gm/ Dextrose 50 mls @ 100 mls/hr IVPB BID@0200,1400 [facility]; Protocol Last Admin: 12/04/19 02:21 Dose: 100 mls/hr Sodium Chloride (Normal Saline -) 250 mls @ 3,000 mls/hr IV PRN PRN PRN Reason: Hypotension during Dialysis Stop: 12/04/19 19:45 Pantoprazole Sodium 80 mg/ (Sodium Chloride) 100 mls @ 10 mls/hr IVPB Q10H [facility] Levetiracetam (Keppra Injection -) 500 mg IVPB BID [facility] Last Admin: 12/04/19 10:00 Dose: 500 mg Levothyroxine Sodium (Synthroid Injection -) 40 mcg IVPUSH DAILY [facility] Last Admin: 12/04/19 10:01 Dose: 40 mcg Mupirocin (Bactroban Ointment (For Decolonization) -) 1 applic NS BID [facility] Stop: 12/08/19 21:59 Last Admin: 12/04/19 10:02 Dose: 1 applic Trimethobenzamide HCl (Tigan Injection -) 200 mg IM Q12H PRN PRN Reason: NAUSEA - Objective Vital Signs: Vital Signs Temperature 97.7 F 12/04/19 10:00 Pulse Rate 88 12/04/19 10:00 Respiratory Rate 17 12/04/19 10:00 Blood Pressure 127/66 12/04/19 10:00 O2 Sat by Pulse Oximetry (%) 100 12/04/19 08:00 Constitutional: Yes: Calm Eyes: Yes: Conjunctiva Clear HENT: Yes: Atraumatic Cardiovascular: Yes: S1, S2 Respiratory: Yes: CTA Bilaterally Gastrointestinal: Yes: Soft Genitourinary: Yes: WNL Musculoskeletal: Yes: WNL Edema: No Integumentary: Yes: WNL Neurological: Yes: Oriented Psychiatric: Yes: Oriented Labs: CBC, BMP 12/04/19 05:32 12/04/19 05:32 INR, PTT INR 1.30 (0.83-1.09) H 12/04/19 05:32 Problem List - Problems (1) Rectal bleeding Code(s): K62.5 - HEMORRHAGE OF ANUS AND RECTUM (2) ESRD (end stage renal disease) Code(s): N18.6 - END STAGE RENAL DISEASE Assessment/Plan Current Medications Generic Name Dose Route Start Last Admin Trade Name Freq PRN Reason Stop Dose Admin Acetaminophen 650 mg 12/03/19 20:26 Tylenol - PO Q4H PRN FEVER Chlorhexidine Gluconate 1 applic 12/03/19 22:00 12/03/19 21:39 Hibiclens For Decolonization - TP 1 applic HS DEV Administration Octreotide Acetate 200 mcg/ 500 mls @ 20.833 mls/hr 12/03/19 13:00 12/03/19 19:08 Octreotide Acetate 1,000 mcg/ IVPB 20.833 mls/hr Dextrose ASDIR DEV Administration Protocol Aztreonam 1 gm/ Dextrose 50 mls @ 100 mls/hr 12/03/19 14:00 12/04/19 02:21 IVPB 100 mls/hr BID@0200,1400 DEV Administration Protocol Sodium Chloride 250 mls @ 3,000 mls/hr 12/03/19 19:46 Normal Saline - IV 12/04/19 19:45 PRN PRN Hypotension during Dialysis Pantoprazole Sodium 80 mg/ 100 mls @ 10 mls/hr 12/04/19 11:30 Sodium Chloride IVPB Q10H DEV 8 MG/HR Levetiracetam 500 mg 12/04/19 10:00 12/04/19 10:00 Keppra Injection - IVPB 500 mg BID DEV Administration Levothyroxine Sodium 40 mcg 12/04/19 10:00 12/04/19 10:01 Synthroid Injection - IVPUSH 40 mcg DAILY DEV Administration Mupirocin 1 applic 12/03/19 22:00 12/04/19 10:02 Bactroban Ointment (For Decolonization) - NS 12/08/19 21:59 1 applic BID DEV Administration Trimethobenzamide HCl 200 mg 12/04/19 02:07 Tigan Injection - IM Q12H PRN NAUSEA Impression 1. ESRD 2. htn 3. hx etoh abuse 4. liver cirrhosis with tips 5. anemia 6. rectal bleeding 7. lactic acidosis 8. GI bleed Plan - pt tolerated HD yesterday - next HD tomorrow - can transfuse prbc - tangelates stabilizing - GI follow up - 4 :15 180 abf 400 3 k bath
[2019-12-04] MEDS: PANTOPRAZOLE SODIUM 80 MG in SODIUM CHLORIDE 100 ML IVPB SCH ×2 (12:10→22:20)
--- NOTE | 2019-12-04 12:16 | PN ---
Teaching Attending Note Name of Resident: Royer Donald ATTENDING PHYSICIAN STATEMENT I saw and evaluated the patient. I reviewed the resident's note and discussed the case with the resident. I agree with the resident's findings and plan as documented. SUBJECTIVE: Pt seen and examined in the ICU. Transferred to ICU for continued GI bleed. CTA A/P did not show source of bleeding. OBJECTIVE: Vital Signs Period Temp Pulse Resp BP Sys/Horton Pulse Ox Last 24 Hr 97.7 F-98.8 F 81-126 15-23 119-183/60-106 100-100 Intake & Output 12/01/19 12/02/19 12/03/19 12/04/19 23:59 23:59 23:59 23:59 Intake Total 750 450 Output Total 1000 50 Balance -250 400 Weight 83.915 kg 85.956 kg Gen: NAD at rest Heart: RRR Lung: decreased breath sounds at the bases Abd: soft, mild TTP Ext: no edema CBC, BMP 12/04/19 05:32 12/04/19 05:32 Active Medications Acetaminophen (Tylenol -) 650 mg PO Q4H PRN PRN Reason: FEVER Chlorhexidine Gluconate (Hibiclens For Decolonization -) 1 applic TP HS [facility] Last Admin: 12/03/19 21:39 Dose: 1 applic Octreotide Acetate 200 mcg/Octreotide Acetate 1,000 mcg/Dextrose 500 mls @ 20.833 mls/hr IVPB ASDIR [facility]; Protocol Last Admin: 12/03/19 19:08 Dose: 20.833 mls/hr Aztreonam 1 gm/ Dextrose 50 mls @ 100 mls/hr IVPB BID@0200,1400 [facility]; Protocol Last Admin: 12/04/19 02:21 Dose: 100 mls/hr Sodium Chloride (Normal Saline -) 250 mls @ 3,000 mls/hr IV PRN PRN PRN Reason: Hypotension during Dialysis Stop: 12/04/19 19:45 Pantoprazole Sodium 80 mg/ (Sodium Chloride) 100 mls @ 10 mls/hr IVPB Q10H [facility] Last Admin: 12/04/19 12:10 Dose: 10 mls/hr Levetiracetam (Keppra Injection -) 500 mg IVPB BID [facility] Last Admin: 12/04/19 10:00 Dose: 500 mg Levothyroxine Sodium (Synthroid Injection -) 40 mcg IVPUSH DAILY [facility] Last Admin: 12/04/19 10:01 Dose: 40 mcg Mupirocin (Bactroban Ointment (For Decolonization) -) 1 applic NS BID [facility] Stop: 12/08/19 21:59 Last Admin: 12/04/19 10:02 Dose: 1 applic Trimethobenzamide HCl (Tigan Injection -) 200 mg IM Q12H PRN PRN Reason: NAUSEA ASSESSMENT AND PLAN: GI Bleed Acute Blood Loss Anemia Thrombocytopenia/Leukopenia Liver Cirrhosis s/p TIPS ESRD on HD Lactic Acidosis resolved Hypothyroidism Seizure Disorder - monitor CBC - transfuse as needed - protonix, octreotide gtts - GI f/u - NPO - central line placed this AM - DVT prophylaxis - continue ICU monitoring at this time
[2019-12-04] MEDS: OCTREOTIDE ACETATE 200 MCG, OCTREOTIDE ACETATE 1,000 MCG in DEXTROSE 5%-WATER - 496 ML IVPB SCH (13:00)
--- NOTE | 2019-12-04 13:24 | PN ---
Progress Note, Physician History of Present Illness: still actively bleeding being transfused says he feels better than yesterday - Current Medication List Current Medications: Active Medications Acetaminophen (Tylenol -) 650 mg PO Q4H PRN PRN Reason: FEVER Chlorhexidine Gluconate (Hibiclens For Decolonization -) 1 applic TP HS [facility] Last Admin: 12/03/19 21:39 Dose: 1 applic Octreotide Acetate 200 mcg/Octreotide Acetate 1,000 mcg/Dextrose 500 mls @ 20.833 mls/hr IVPB ASDIR [facility]; Protocol Last Admin: 12/03/19 19:08 Dose: 20.833 mls/hr Sodium Chloride (Normal Saline -) 250 mls @ 3,000 mls/hr IV PRN PRN PRN Reason: Hypotension during Dialysis Stop: 12/04/19 19:45 Pantoprazole Sodium 80 mg/ (Sodium Chloride) 100 mls @ 10 mls/hr IVPB Q10H [facility] Last Admin: 12/04/19 12:10 Dose: 10 mls/hr Levetiracetam (Keppra Injection -) 500 mg IVPB BID [facility] Last Admin: 12/04/19 10:00 Dose: 500 mg Levothyroxine Sodium (Synthroid Injection -) 40 mcg IVPUSH DAILY [facility] Last Admin: 12/04/19 10:01 Dose: 40 mcg Mupirocin (Bactroban Ointment (For Decolonization) -) 1 applic NS BID [facility] Stop: 12/08/19 21:59 Last Admin: 12/04/19 10:02 Dose: 1 applic Trimethobenzamide HCl (Tigan Injection -) 200 mg IM Q12H PRN PRN Reason: NAUSEA - Objective Vital Signs: Vital Signs Temperature 98.0 F 12/04/19 12:00 Pulse Rate 81 12/04/19 12:00 Respiratory Rate 17 12/04/19 12:00 Blood Pressure 119/62 12/04/19 12:00 O2 Sat by Pulse Oximetry (%) 100 12/04/19 08:00 Constitutional: Yes: No Distress, Calm Cardiovascular: Yes: Tachycardia, S1, S2 Respiratory: Yes: Regular, CTA Bilaterally Gastrointestinal: Yes: Soft, Hypoactive Bowel Sounds Musculoskeletal: Yes: WNL Extremities: Yes: WNL Neurological: Yes: Alert, Oriented Psychiatric: Yes: Alert, Oriented Labs: CBC, BMP 12/04/19 05:32 12/04/19 05:32 INR, PTT INR 1.30 (0.83-1.09) H 12/04/19 05:32 Assessment/Plan GI Bleed Acute Blood Loss Anemia Thrombocytopenia/Leukopenia Liver Cirrhosis s/p TIPS ESRD on HD Lactic Acidosis resolved Hypothyroidism Seizure Disorder plan continue mgmt as per icu transfusions all abx stopped close watch further plan awaited rest as per team cc 40 min
--- NOTE | 2019-12-04 14:39 | PN.GI ---
GI Progress Note Subjective: Pt seen/examined at bedside, reporting right sided abdominal pain and nausea, no vomiting. Also reports chills, no fever noted. Per nursing staff, pt had 2 bloody bms today, one was bright, second one was darker. Receiving unit of prbc currently. Pt refuses rectal exam. - Objective Vital Signs: Vital Signs Temperature 97.6 F 12/04/19 14:00 Pulse Rate 76 12/04/19 14:00 Respiratory Rate 17 12/04/19 14:00 Blood Pressure 117/64 12/04/19 14:00 O2 Sat by Pulse Oximetry (%) 100 12/04/19 08:00 Constitutional: No Distress, Calm Cardiovascular: Yes: WNL Respiratory: Yes: WNL ...Palpate: Yes: Other (Abd soft, tender on palpation in RUQ/right abdomen, non distended, no rebound, guarding or rigidity) ...Rectal Exam: Yes: Other (Pt refusing rectal exam) Labs: CBC, BMP 12/04/19 05:32 12/04/19 05:32 INR, PTT INR 1.30 (0.83-1.09) H 12/04/19 05:32 Problem List - Problems (1) Rectal bleeding Assessment/Plan: 49yo male h/o etoh cirrhosis, esophageal varices s/p TIPS, ESRD on HD presenting with abdominal pain, chills and rectal bleeding. Prior EGD in 2018 revealing small area of esophagitis/small ulcer, no varices. Colonoscopy revealing one tubular adenoma and sigmoid diverticulosis. Further episodes of hematochezia noted per staff with anemia though appears to be a decline in all cell lines today and remains hemodynamically stable. Patent TIPS on CTA with otherwise no acute findings. -Recommend continue resuscitative measures, prbc and plt transfusion -NPO for now -Continue IV PPI and octreotide for now -Check stool studies (c diff, ova/parasites, cultures) r/o infectious etiology for bloody diarrhea given clinical presentation -Follow up remainder of cultures -Monitor and electrolytes electrolytes -Pending above and once adequately resuscitated will consider colonoscopy +/- EGD to further evaluate -If further bleeding with drop in Hb or hemodynamic instability consider bleeding scan or repeat CTA Discussed with ICU attending Code(s): K62.5 - HEMORRHAGE OF ANUS AND RECTUM
[2019-12-04] MEDS ORDERED: LIDOCAINE HCL 2% JELLY (30 ML/TUBE) TP ONE (18:03)
[2019-12-04 18:52] LABS: BASO % 1.2 % (0-2.0); EOS % 5.1 % (0-4.5); LYMPH % 15.4 % (8-40); MCH 31.3 pg (25.7-33.7); MCHC 34.4 g/dl (32.0-35.9); MEAN CELL VOLUME 90.8 fl (80-96); MEAN PLT VOLUME 8.4 fl (7.5-11.1); MONO % 10.9 % (3.8-10.2); NEUT % 67.4 % (42.8-82.8); RDW 15.7 % (11.9-15.9); WHITE BLOOD COUNT 2.1 K/mm3 (4.0-10.0)
[2019-12-04 18:55] LABS: HEMOGLOBIN 6.6 GM/dL (11.7-16.9)
[2019-12-04 18:56] LABS: PLATELET COUNT 34 K/MM3 (134-434)
[2019-12-04] MEDS ORDERED: LIDOCAINE HCL 2% JELLY (30 ML/TUBE) TP PRN (19:52)
--- NOTE | 2019-12-04 19:56 | PN ---
Progress Note (short form) - Note Progress Note: patient to get another CTA abdomen/pelvis w/wo contrast as patient is still actively bleeding- spoke with Dr. Sparks (accident examiner) he agreed to patient getting the CT scan with contrast and patient to receive HD in AM.
--- NOTE | 2019-12-04 20:02 | PN ---
Progress Note, Physician - Current Medication List Current Medications: Active Medications Acetaminophen (Tylenol -) 650 mg PO Q4H PRN PRN Reason: FEVER Chlorhexidine Gluconate (Hibiclens For Decolonization -) 1 applic TP HS [facility] Last Admin: 12/03/19 21:39 Dose: 1 applic Octreotide Acetate 200 mcg/Octreotide Acetate 1,000 mcg/Dextrose 500 mls @ 20.833 mls/hr IVPB ASDIR [facility]; Protocol Last Admin: 12/04/19 13:00 Dose: 20.833 mls/hr Pantoprazole Sodium 80 mg/ (Sodium Chloride) 100 mls @ 10 mls/hr IVPB Q10H [facility] Last Admin: 12/04/19 12:10 Dose: 10 mls/hr Levetiracetam (Keppra Injection -) 500 mg IVPB BID [facility] Last Admin: 12/04/19 10:00 Dose: 500 mg Levothyroxine Sodium (Synthroid Injection -) 40 mcg IVPUSH DAILY [facility] Last Admin: 12/04/19 10:01 Dose: 40 mcg Lidocaine HCl (Xylocaine 2% Jelly) 0 applic TP PRN PRN PRN Reason: MODERATE PAIN Mupirocin (Bactroban Ointment (For Decolonization) -) 1 applic NS BID [facility] Stop: 12/08/19 21:59 Last Admin: 12/04/19 10:02 Dose: 1 applic Trimethobenzamide HCl (Tigan Injection -) 200 mg IM Q12H PRN PRN Reason: NAUSEA - Objective Vital Signs: Vital Signs Temperature 98.0 F 12/04/19 18:00 Pulse Rate 75 12/04/19 18:00 Respiratory Rate 19 12/04/19 18:00 Blood Pressure 106/60 12/04/19 18:00 O2 Sat by Pulse Oximetry (%) 100 12/04/19 08:00 Cardiovascular: Yes: Regular Rate and Rhythm Respiratory: Yes: Regular, CTA Bilaterally Gastrointestinal: Yes: Normal Bowel Sounds, Soft. No: Tenderness Labs: CBC, BMP 12/04/19 17:30 12/04/19 05:32 INR, PTT INR 1.30 (0.83-1.09) H 12/04/19 05:32 Problem List - Problems (1) GI (gastrointestinal bleed) Assessment/Plan: H/H 6.6. 1 unit of PRBC given.Aditional blood ordered HX of esophageal varices , 1 tubular adenoma and diverticulosis CTA negative . Repeat CT GI consult noted Octeotride drip started Protonix IV BID Code(s): K92.2 - GASTROINTESTINAL HEMORRHAGE, UNSPECIFIED (2) Anemia Assessment/Plan: as above Code(s): D64.9 - ANEMIA, UNSPECIFIED (3) ESRD (end stage renal disease) on dialysis Assessment/Plan: Renal Dr Sparks consulted , recs appreciated monitor lytes Code(s): N18.6 - END STAGE RENAL DISEASE; Z99.2 - DEPENDENCE ON RENAL DIALYSIS (4) History of cirrhosis of liver Assessment/Plan: per gi Code(s): Z87.19 - PERSONAL HISTORY OF OTHER DISEASES OF THE DIGESTIVE SYSTEM (5) History of esophageal varices with bleeding Assessment/Plan: per gi see above Code(s): Z87.19 - PERSONAL HISTORY OF OTHER DISEASES OF THE DIGESTIVE SYSTEM
[2019-12-04] MEDS ORDERED: MELATONIN 5 MG TABLETS PO ONE (22:03)
[2019-12-04] MEDS ORDERED: ZOLPIDEM TARTRATE 5 MG TABLET PO ONE (22:09)
[2019-12-04] MEDS: CHLORHEXIDINE GLUCONATE 4% CLEANSER FOR DECOLONIZATION TP SCH (22:20)
--- NOTE | 2019-12-04 23:50 | PROC ---
Central Line Insertion Indication: Other (blood products) Risks and Benefits Explained: Yes Consent on Chart: Yes Central Line: Triple Lumen Catheter Anesthesia: 1% Lidocaine Sterile Technique: Yes Ultrasound Guided Assistance: Yes Position: Left Internal Jugular Post Insertion: Yes: Bilateral Breath Sounds, Bilateral Chest Expansion, Chest X-Ray Ordered Sterile Dressing Applied: Yes
[2019-12-05 07:27] LABS: BASO % 0.6 % (0-2.0); EOS % 8.6 % (0-4.5); HEMATOCRIT 25.2 % (35.4-49); LYMPH % 19.7 % (8-40); MCH 30.7 pg (25.7-33.7); MCHC 34.4 g/dl (32.0-35.9); MEAN CELL VOLUME 89.4 fl (80-96); MEAN PLT VOLUME 8.7 fl (7.5-11.1); MONO % 7.9 % (3.8-10.2); NEUT % 63.2 % (42.8-82.8); PLATELET COUNT 38 K/MM3 (134-434); RBC 2.82 M/mm3 (4.00-5.60); RDW 15.6 % (11.9-15.9); WHITE BLOOD COUNT 2.7 K/mm3 (4.0-10.0)
[2019-12-05 07:37] LABS: ALBUMIN 2.6 g/dl (3.4-5.0); BILIRUBIN,TOTAL 1.6 mg/dL (0.2-1); BLOOD UREA NITROGEN 24.4 mg/dL (7-18); CALCIUM 7.4 mg/dL (8.5-10.1); CREATININE 6.4 mg/dL (0.55-1.3); POTASSIUM 3.7 mmol/L (3.5-5.1)
[2019-12-05 07:39] LABS: HEMOGLOBIN 8.7 GM/dL (11.7-16.9)
--- NOTE | 2019-12-05 09:13 | PN ---
Progress Note, Physician - Current Medication List Current Medications: Active Medications Acetaminophen (Tylenol -) 650 mg PO Q4H PRN PRN Reason: FEVER Chlorhexidine Gluconate (Hibiclens For Decolonization -) [address] [facility] Last Admin: 12/04/19 22:20 Dose: 1 applic Octreotide Acetate 200 mcg/Octreotide Acetate 1,000 mcg/Dextrose 500 mls @ 20.833 mls/hr IVPB ASDIR DEV; Protocol Last Admin: 12/04/19 13:00 Dose: 20.833 mls/hr Pantoprazole Sodium 80 mg/ (Sodium Chloride) 100 mls @ 10 mls/hr IVPB Q10H [facility] Last Admin: 12/04/19 22:20 Dose: 10 mls/hr Levetiracetam (Keppra Injection -) [address] [facility] Last Admin: 12/04/19 22:20 Dose: 500 mg Levothyroxine Sodium (Synthroid Injection -) [address] [facility] Last Admin: 12/04/19 10:01 Dose: 40 mcg Lidocaine HCl (Xylocaine 2% Jelly) 1 applic TP PRN PRN PRN Reason: MODERATE PAIN Mupirocin (Bactroban Ointment (For Decolonization) -) [address] [facility] Stop: 12/08/19 21:59 Last Admin: 12/04/19 22:20 Dose: 1 applic Trimethobenzamide HCl (Tigan Injection -) 200 mg IM Q12H PRN PRN Reason: NAUSEA - Objective Vital Signs: Vital Signs Temperature 98.2 F 12/05/19 03:30 Pulse Rate 77 12/05/19 07:00 Respiratory Rate 22 H 12/05/19 07:00 Blood Pressure 102/51 L 12/05/19 07:00 O2 Sat by Pulse Oximetry (%) 100 12/04/19 21:00 Cardiovascular: Yes: Regular Rate and Rhythm Respiratory: Yes: Regular, CTA Bilaterally Gastrointestinal: Yes: Normal Bowel Sounds, Soft. No: Tenderness Labs: CBC, BMP 12/05/19 05:25 12/05/19 05:25 INR, PTT INR 1.30 (0.83-1.09) H 12/04/19 05:32 Problem List - Problems (1) GI (gastrointestinal bleed) Assessment/Plan: H/H 8.6. 1 unit of PRBC WAS given.Aditional blood And Platelets HX of esophageal varices , 1 tubular adenoma and diverticulosis CTA negative . Repeat CT GI consult noted Octeotride drip Protonix IV BID Code(s): K92.2 - GASTROINTESTINAL HEMORRHAGE, UNSPECIFIED (2) Anemia Assessment/Plan: as above Code(s): D64.9 - ANEMIA, UNSPECIFIED (3) ESRD (end stage renal disease) on dialysis Assessment/Plan: Renal Dr Sparks consulted , recs appreciated monitor lytes Code(s): N18.6 - END STAGE RENAL DISEASE; Z99.2 - DEPENDENCE ON RENAL DIALYSIS (4) History of cirrhosis of liver Assessment/Plan: per gi Code(s): Z87.19 - PERSONAL HISTORY OF OTHER DISEASES OF THE DIGESTIVE SYSTEM (5) History of esophageal varices with bleeding Assessment/Plan: per gi see above Code(s): Z87.19 - PERSONAL HISTORY OF OTHER DISEASES OF THE DIGESTIVE SYSTEM (6) Pancytopenia Assessment/Plan: as above hem consult Code(s): D61.818 - OTHER PANCYTOPENIA
[2019-12-05] MEDS: PANTOPRAZOLE SODIUM 80 MG in SODIUM CHLORIDE 100 ML IVPB SCH ×2 (09:24→16:37)
[2019-12-05] MEDS ORDERED: SODIUM CHLORIDE 250 ML IV PRN (10:37)
[2019-12-05] MEDS ORDERED: EPOETIN ALFA 10,000 UNIT/1 ML VIAL IVPUSH ONE (10:45)
[2019-12-05] MEDS: MUPIROCIN 2% TOPICAL OINTMENT FOR DECOLONIZATION NS SCH ×2 (11:00→21:49)
--- NOTE | 2019-12-05 11:47 | CONSULT ---
Consultation: REQUESTING PROVIDER: CONSULT REQUEST: We have been asked to medically evaluate this patient for ( specify). HISTORY OF PRESENT ILLNESS: 49M PMH HTN, HLD, ESRD (TTS), cirrhosis secondary to ETOH abuse s/p TIPS, depression, multiple Upper GI bleeds requiring esophageal varices banding who presented to ED with nausea, NBNB vomiting and bloody diarrhea for the previous 4 days. Patient also endorses dark tarry stools for the previous 4 weeks. He endorses diffuse abdominal pain rating 8/10. He endorses shortness of breath but denies any chest pain. He denies nonadherence to his medications, or change in urination. He has history of black stools and anemia in 08/2019, and had a endoscopy and colonoscopy done at that admission- colonoscopy revealed one tubular adenoma and mild sigmoid diverticulosis. Prior endoscopy at [facility] showed esophageal varices. He admits to following up with his GI Dr Luna but doesnt expand on when his last visit was. Patient last had dialysis on and missed his scheduled Monday session as he woke up too late. He denies any AMS , or loss of consciousness since his symptoms started. Recent Travel: denies PAST MEDICAL HISTORY: as above PAST SURGICAL HISTORY: head surgery per pt and TIPS for portal htn 2/2 cirrhosis Social History: Smoking:occasional smoker one cig here and there Alcohol: former heavy drinker since 1 yr Drugs: denies REVIEW OF SYSTEMS: CONSTITUTIONAL: Absent: fever, chills, diaphoresis, generalized weakness, malaise, loss of appetite, weight change HEENT: Absent: rhinorrhea, nasal congestion, throat pain, throat swelling, difficulty swallowing, mouth swelling, ear pain, eye pain, visual changes CARDIOVASCULAR: Absent: chest pain, syncope, palpitations, irregular heart rate, lightheadedness , peripheral edema RESPIRATORY: Absent: cough, shortness of breath, dyspnea with exertion, orthopnea, wheezing, stridor, hemoptysis GASTROINTESTINAL: Absent: abdominal pain, abdominal distension, nausea, vomiting, diarrhea, constipation, melena, hematochezia GENITOURINARY: Absent: dysuria, frequency, urgency, hesitancy, hematuria, flank pain, genital pain MUSCULOSKELETAL: Absent: myalgia, arthralgia, joint swelling, back pain, neck pain SKIN: Absent: rash, itching, pallor HEMATOLOGIC/IMMUNOLOGIC: Absent: easy bleeding, easy bruising, lymphadenopathy, frequent infections ENDOCRINE: Absent: unexplained weight gain, unexplained weight loss, heat intolerance, cold intolerance NEUROLOGIC: Absent: headache, focal weakness or paresthesias, dizziness, unsteady gait, seizure, mental status changes, bladder or bowel incontinence PSYCHIATRIC: Absent: anxiety, depression, suicidal or homicidal ideation, hallucinations. PHYSICAL EXAMINATION Vital Signs - 24 hr 12/04/19 12/04/19 12/04/19 12:00 14:00 16:00 Temperature 98.0 F 97.6 F 97.7 F Pulse Rate 81 76 78 Respiratory 17 17 18 Rate Blood Pressure 119/62 117/64 113/65 O2 Sat by Pulse Oximetry (%) 12/04/19 12/04/19 12/04/19 18:00 20:00 21:00 Temperature 98.0 F 98.1 F Pulse Rate 75 75 Respiratory 19 10 12 Rate Blood Pressure 106/60 132/69 O2 Sat by Pulse 100 Oximetry (%) 12/04/19 12/04/19 12/04/19 22:00 23:00 23:15 Temperature 98.4 F 98.4 F 98.4 F Pulse Rate 73 82 78 Respiratory 12 15 Rate Blood Pressure 116/64 119/71 125/72 O2 Sat by Pulse Oximetry (%) 12/04/19 12/04/19 12/05/19 23:30 23:45 00:00 Temperature 98.4 F 98.5 F 98.5 F Pulse Rate 79 77 82 Respiratory 16 18 22 H Rate Blood Pressure 131/77 129/74 131/68 O2 Sat by Pulse Oximetry (%) 12/05/19 12/05/19 12/05/19 00:15 01:30 02:00 Temperature 98.4 F 98.4 F Pulse Rate 76 77 77 Respiratory 14 23 H 18 Rate Blood Pressure 122/74 134/77 125/73 O2 Sat by Pulse Oximetry (%) 12/05/19 12/05/19 12/05/19 03:30 04:00 05:00 Temperature 98.2 F Pulse Rate 74 73 90 Respiratory 21 H 19 14 Rate Blood Pressure 139/78 136/85 153/86 O2 Sat by Pulse Oximetry (%) 12/05/19 12/05/19 07:00 08:00 Temperature Pulse Rate 77 74 Respiratory 22 H 21 H Rate Blood Pressure 102/51 L 124/61 O2 Sat by Pulse Oximetry (%) Gen: NAD HEENT: MMM CVS: S1, S2 Abd: Soft Ext: No edema Laboratory Results - last 24 hr 12/03/19 12/03/19 12/03/19 11:30 21:30 21:30 WBC RBC Hgb Hct MCV MCH MCHC RDW Plt Count MPV Absolute Neuts (auto) Neutrophils % Lymphocytes % Monocytes % Eosinophils % Basophils % Nucleated RBC % Sodium Potassium Chloride Carbon Dioxide Anion Gap BUN Creatinine Est GFR (CKD-EPI)AfAm Est GFR (CKD-EPI)NonAf Random Glucose Calcium Total Bilirubin AST ALT Alkaline Phosphatase Total Protein Albumin Hep Bs Antigen Negative Hep C Ab Diagnostic <0.1 Blood Type B POSITIVE Antibody Screen Negative Crossmatch See Detail 12/04/19 12/05/19 12/05/19 17:30 05:25 05:25 WBC 2.1 L 2.7 L RBC 2.10 L 2.82 L Hgb 6.6 L* 8.7 L Hct 19.0 L 25.2 L D MCV 90.8 89.4 MCH 31.3 30.7 MCHC 34.4 34.4 RDW 15.7 15.6 Plt Count 34 L* 38 L MPV 8.4 8.7 Absolute Neuts (auto) 1.4 L 1.7 Neutrophils % 67.4 63.2 Lymphocytes % 15.4 D 19.7 D Monocytes % 10.9 H 7.9 Eosinophils % 5.1 H D 8.6 H Basophils % 1.2 0.6 Nucleated RBC % 0 0 Sodium 132 L Potassium 3.7 Chloride 95 L Carbon Dioxide 27 Anion Gap 10 BUN 24.4 H Creatinine 6.4 H Est GFR (CKD-EPI)AfAm 10.96 Est GFR (CKD-EPI)NonAf 9.46 Random Glucose 78 Calcium 7.4 L Total Bilirubin 1.6 H AST 25 ALT 12 L Alkaline Phosphatase 91 Total Protein 5.0 L Albumin 2.6 L Hep Bs Antigen Hep C Ab Diagnostic Blood Type Antibody Screen Crossmatch Active Medications Generic Name Dose Route Start Last Admin Trade Name Freq PRN Reason Stop Dose Admin Acetaminophen 650 mg 12/03/19 20:26 Tylenol - PO Q4H PRN FEVER Chlorhexidine Gluconate 1 applic 12/03/19 22:00 12/04/19 22:20 Hibiclens For Decolonization - TP 1 applic HS DEV Administration Octreotide Acetate 200 mcg/ 500 mls @ 20.833 mls/hr 12/03/19 13:00 12/04/19 13:00 Octreotide Acetate 1,000 mcg/ IVPB 20.833 mls/hr Dextrose ASDIR DEV Administration Protocol Pantoprazole Sodium 80 mg/ 100 mls @ 10 mls/hr 12/04/19 11:30 12/05/19 09:24 Sodium Chloride IVPB 10 mls/hr Q10H DEV Administration 8 MG/HR Sodium Chloride 250 mls @ 3,000 mls/hr 12/05/19 10:37 Normal Saline - IV 12/06/19 10:36 PRN PRN Hypotension during Dialysis Levetiracetam 500 mg 12/04/19 10:00 12/04/19 22:20 Keppra Injection - IVPB 500 mg BID DEV Administration Levothyroxine Sodium 40 mcg 12/04/19 10:00 12/04/19 10:01 Synthroid Injection - IVPUSH 40 mcg DAILY DEV Administration Lidocaine HCl 1 applic 12/04/19 19:52 Xylocaine 2% Jelly TP PRN PRN MODERATE PAIN Mupirocin 1 applic 12/03/19 22:00 12/04/19 22:20 Bactroban Ointment (For Decolonization) - NS 12/08/19 21:59 1 applic BID DEV Administration Trimethobenzamide HCl 200 mg 12/04/19 02:07 Tigan Injection - IM Q12H PRN NAUSEA CBC, BMP 12/05/19 05:25 12/05/19 05:25 ASSESSMENT/PLAN: 49M PMH HTN, HLD, ESRD (TTS), cirrhosis secondary to ETOH abuse s/p TIPS, depression, multiple Upper GI bleeds requiring esophageal varices banding who presented to ED with nausea, NBNB vomiting and bloody diarrhea for the previous 4 days.we were consulted for ellington cytopenia , pt recieved 4-6 units of PRBC and 2 plt so far , CT A/P reviewed, pt cont to have intermittent bloody diarrhea # ellington cytopenia 2/2 cirrhosis and ESRD R.O infection process # acute blood loss anemia * coagulopathy work up PT, PTT , INR , fibrinogen can not R.o DIC * ellington cx * maintain HGb > 8 * H/H Q 8 hr * cont octeriotide drip and PPi Iv BID * abx per ID * on HD * Avoid NSAIDS or chemical AC # Active GI bleed # liver cirrhosis S/P TIPS # History of GI varices S/P bandage # hypothyroidism # seisure disorder Dispo: We will continue to follow the patient. Thank you for this consultative opportunity. Visit type - Emergency Visit Emergency Visit: Yes ED Registration Date: 12/03/19 Care time: The patient presented to the Emergency Department on the above date and was hospitalized for further evaluation of their emergent condition. - New Patient This patient is new to me today: Yes Date on this admission: 12/05/19 - Critical Care Critical Care patient: No ATTENDING PHYSICIAN STATEMENT I saw and evaluated the patient. I reviewed the resident's note and discussed the case with the resident. I agree with the resident's findings and plan as documented. SUBJECTIVE: OBJECTIVE: ASSESSMENT AND PLAN:
--- NOTE | 2019-12-05 11:53 | PN ---
Teaching Attending Note Name of Resident: Royer Donald ATTENDING PHYSICIAN STATEMENT I saw and evaluated the patient. I reviewed the resident's note and discussed the case with the resident. I agree with the resident's findings and plan as documented. SUBJECTIVE: Pt seen and examined in the ICU. Continues to have bloody bowel movements. Remains on protonix and octreotide gtts. States abdominal pain better. Transfused 6 units PRBC, 2 units platelets so far. OBJECTIVE: Vital Signs Period Temp Pulse Resp BP Sys/Horton Pulse Ox Last 24 Hr 97.6 F-98.5 F 73-90 10 102-153/51-86 100 Intake & Output 12/02/19 12/03/19 12/04/19 12/05/19 23:59 23:59 23:59 23:59 Intake Total 750 2212.6 779.6 Output Total 1000 50 Balance -250 2162.6 779.6 Weight 83.915 kg 85.956 kg 86.364 kg Gen: NAD at rest Heart: RRR Lung: decreased breath sounds at the bases Abd: soft, nontender Ext: no edema CBC, BMP 12/05/19 05:25 12/05/19 05:25 Active Medications Acetaminophen (Tylenol -) 650 mg PO Q4H PRN PRN Reason: FEVER Chlorhexidine Gluconate (Hibiclens For Decolonization -) 1 applic TP HS [facility] Last Admin: 12/04/19 22:20 Dose: 1 applic Octreotide Acetate 200 mcg/Octreotide Acetate 1,000 mcg/Dextrose 500 mls @ 20.833 mls/hr IVPB ASDIR [facility]; Protocol Last Admin: 12/04/19 13:00 Dose: 20.833 mls/hr Pantoprazole Sodium 80 mg/ (Sodium Chloride) 100 mls @ 10 mls/hr IVPB Q10H [facility] Last Admin: 12/05/19 09:24 Dose: 10 mls/hr Sodium Chloride (Normal Saline -) 250 mls @ 3,000 mls/hr IV PRN PRN PRN Reason: Hypotension during Dialysis Stop: 12/06/19 10:36 Levetiracetam (Keppra Injection -) 500 mg IVPB BID [facility] Last Admin: 12/04/19 22:20 Dose: 500 mg Levothyroxine Sodium (Synthroid Injection -) 40 mcg IVPUSH DAILY [facility] Last Admin: 12/04/19 10:01 Dose: 40 mcg Lidocaine HCl (Xylocaine 2% Jelly) 1 applic TP PRN PRN PRN Reason: MODERATE PAIN Mupirocin (Bactroban Ointment (For Decolonization) -) 1 applic NS BID [facility] Stop: 12/08/19 21:59 Last Admin: 12/04/19 22:20 Dose: 1 applic Trimethobenzamide HCl (Tigan Injection -) 200 mg IM Q12H PRN PRN Reason: NAUSEA ASSESSMENT AND PLAN: GI Bleed Acute Blood Loss Anemia Thrombocytopenia/Leukopenia Liver Cirrhosis s/p TIPS ESRD on HD Lactic Acidosis resolved Hypothyroidism Seizure Disorder - monitor CBC - transfuse as needed - protonix, octreotide gtts - GI f/u - NPO - HD per renal - DVT prophylaxis - continue ICU monitoring at this time
--- NOTE | 2019-12-05 12:18 | PN ---
Physical Exam: SUBJECTIVE: Patient seen and examined 2 large bloody bowel movements overnight (bright red) received 2 more units of PRBC + 1 platelets for Hgb of 6.6 OBJECTIVE: Vital Signs Period Temp Pulse Resp BP Sys/Horton Pulse Ox Last 24 Hr 97.6 F-98.5 F 73-90 10-23 102-153/51-86 100 GENERAL: The patient is awake, alert, and fully oriented, in no acute distress. HEAD: Normal with no signs of trauma. EYES: PERRL, extraocular movements intact, sclera anicteric, conjunctiva clear. ENT: Ears normal, nares patent, oropharynx clear without exudates, moist mucous membranes. NECK: Trachea midline, full range of motion, supple. LUNGS: Breath sounds equal, clear to auscultation bilaterally, no wheezes, no crackles, no accessory muscle use. HEART: Regular rate and rhythm, S1, S2 without murmur, rub or gallop. ABDOMEN: Soft, diffusely tender EXTREMITIES: 2+ pulses, warm, well-perfused, no edema. NEUROLOGICAL: Cranial nerves II through XII grossly intact. Normal speech, PSYCH: Normal mood, normal affect. SKIN: Warm, dry, normal turgor, no rashes or lesions noted Laboratory Results - last 24 hr 12/03/19 12/03/19 12/03/19 11:30 21:30 21:30 WBC RBC Hgb Hct MCV MCH MCHC RDW Plt Count MPV Absolute Neuts (auto) Neutrophils % Lymphocytes % Monocytes % Eosinophils % Basophils % Nucleated RBC % Sodium Potassium Chloride Carbon Dioxide Anion Gap BUN Creatinine Est GFR (CKD-EPI)AfAm Est GFR (CKD-EPI)NonAf Random Glucose Calcium Total Bilirubin AST ALT Alkaline Phosphatase Total Protein Albumin Hep Bs Antigen Negative Hep C Ab Diagnostic <0.1 Blood Type B POSITIVE Antibody Screen Negative Crossmatch See Detail 12/04/19 12/05/19 12/05/19 17:30 05:25 05:25 WBC 2.1 L 2.7 L RBC 2.10 L 2.82 L Hgb 6.6 L* 8.7 L Hct 19.0 L 25.2 L D MCV 90.8 89.4 MCH 31.3 30.7 MCHC 34.4 34.4 RDW 15.7 15.6 Plt Count 34 L* 38 L MPV 8.4 8.7 Absolute Neuts (auto) 1.4 L 1.7 Neutrophils % 67.4 63.2 Lymphocytes % 15.4 D 19.7 D Monocytes % 10.9 H 7.9 Eosinophils % 5.1 H D 8.6 H Basophils % 1.2 0.6 Nucleated RBC % 0 0 Sodium 132 L Potassium 3.7 Chloride 95 L Carbon Dioxide 27 Anion Gap 10 BUN 24.4 H Creatinine 6.4 H Est GFR (CKD-EPI)AfAm 10.96 Est GFR (CKD-EPI)NonAf 9.46 Random Glucose 78 Calcium 7.4 L Total Bilirubin 1.6 H AST 25 ALT 12 L Alkaline Phosphatase 91 Total Protein 5.0 L Albumin 2.6 L Hep Bs Antigen Hep C Ab Diagnostic Blood Type Antibody Screen Crossmatch Active Medications Generic Name Dose Route Start Last Admin Trade Name Freq PRN Reason Stop Dose Admin Acetaminophen 650 mg 12/03/19 20:26 Tylenol - PO Q4H PRN FEVER Chlorhexidine Gluconate 1 applic 12/03/19 22:00 12/04/19 22:20 Hibiclens For Decolonization - TP 1 applic HS DEV Administration Octreotide Acetate 200 mcg/ 500 mls @ 20.833 mls/hr 12/03/19 13:00 12/04/19 13:00 Octreotide Acetate 1,000 mcg/ IVPB 20.833 mls/hr Dextrose ASDIR DEV Administration Protocol Pantoprazole Sodium 80 mg/ 100 mls @ 10 mls/hr 12/04/19 11:30 12/05/19 09:24 Sodium Chloride IVPB 10 mls/hr Q10H DEV Administration 8 MG/HR Sodium Chloride 250 mls @ 3,000 mls/hr 12/05/19 10:37 Normal Saline - IV 12/06/19 10:36 PRN PRN Hypotension during Dialysis Levetiracetam 500 mg 12/04/19 10:00 12/04/19 22:20 Keppra Injection - IVPB 500 mg BID DEV Administration Levothyroxine Sodium 40 mcg 12/04/19 10:00 12/04/19 10:01 Synthroid Injection - IVPUSH 40 mcg DAILY DEV Administration Lidocaine HCl 1 applic 12/04/19 19:52 Xylocaine 2% Jelly TP PRN PRN MODERATE PAIN Mupirocin 1 applic 12/03/19 22:00 12/04/19 22:20 Bactroban Ointment (For Decolonization) - NS 12/08/19 21:59 1 applic BID DEV Administration Trimethobenzamide HCl 200 mg 12/04/19 02:07 Tigan Injection - IM Q12H PRN NAUSEA ASSESSMENT/PLAN: 49M PMH HTN, HLD, NIDDM, CKD with HD on (,Mon,Mon), cirrhosis secondary to ETOH abuse s/p TIPS, depression, multiple UGI bleeds requiring esophageal varices banding who presented to ED with GI bleed and acute on chronic renal failure after missing dialysis. Neuro -Pt is AAOx3. -pt on home dose of keppra Cardiovascular -Patient has hx of HTN. -Denies any chest pain, initial troponin negative -EKG 12/04/2019 normal sinus rhythm prolonged QTc at 522. Pulmonary -CTA notes small right pleural effusion. same findings on 2nd CTA -Patient on room air SPO2 -continue to monitor GI -2 additional bloody bowel movements since yesterday. (bright red blood). -Hgb dropped down to 6.6 -pt received 2 more units prbc + 1 of platelets. (total in 24 hour period 4 units prbc + 2 platelets) -Hgb this a.m 8.7 hct 25.2 -2nd CTA :No evidence of active GI bleeding, angiodysplasia, abdominal aortic aneurysm or dissection Sigmoid diverticulosis without diverticulitis. No evidence of bowel obstruction. Appendix normal -pt declined rectal exam in the unit -On protonix and octreotide drip -Abdominal U/S negative for cholecystitis -GI () recommends colonoscopy -/+ EGD once Hgb stable. also recommended stool studies (Cdiff, ova, parasites) Renal -Patient is on HD Monday, , Monday. Last HD was on . -BUN/CR: 24.4/6.4 - Will get HD today (Dr. Sparks) -monitor CMP ID -antibiotics d/c per ID (Dr. Edwards) -stool studies pending (c-diff, ova, parasites) Heme/Onc -Hgb of 6.6 yesterday -pt received 2 more units prbc + 1 of platelets. -(total in 24 hour period 4 units prbc + 2 platelets) -F/U repeat afternoon CBC and Pt/inr F: On dialysis, restrict fluids E: Monitor CMP N: NPO DVT Prophylaxis: SCDs Lines: Central line in [facility] inserted today 12/04/2019 Dispo: We will continue to follow the patient. Thank you for this consultative opportunity. Visit type Visit type - Emergency Visit Emergency Visit: Yes ED Registration Date: 12/03/19 Care time: The patient presented to the Emergency Department on the above date and was hospitalized for further evaluation of their emergent condition. - New Patient This patient is new to me today: No - Critical Care Critical Care patient: No - Discharge Referral Referred to [facility] Med [facility].C[facility] No ATTENDING PHYSICIAN STATEMENT I saw and evaluated the patient. I reviewed the resident's note and discussed the case with the resident. I agree with the resident's findings and plan as documented. SUBJECTIVE: OBJECTIVE: ASSESSMENT AND PLAN:
[2019-12-05 12:27] LABS: BASO % 0.5 % (0-2.0); EOS % 5.5 % (0-4.5); HEMATOCRIT 23.8 % (35.4-49); HEMOGLOBIN 8.2 GM/dL (11.7-16.9); LYMPH % 16.7 % (8-40); MCH 30.8 pg (25.7-33.7); MCHC 34.5 g/dl (32.0-35.9); MEAN CELL VOLUME 89.4 fl (80-96); MEAN PLT VOLUME 8.9 fl (7.5-11.1); MONO % 9.5 % (3.8-10.2); NEUT % 67.8 % (42.8-82.8); RBC 2.66 M/mm3 (4.00-5.60); RDW 15.5 % (11.9-15.9); WHITE BLOOD COUNT 2.5 K/mm3 (4.0-10.0)
[2019-12-05 12:30] LABS: PLATELET COUNT 35 K/MM3 (134-434)
--- NOTE | 2019-12-05 12:40 | PN ---
Progress Note, Physician History of Present Illness: post transfusion patient stable had some bleeding last night currently stable - Current Medication List Current Medications: Active Medications Acetaminophen (Tylenol -) 650 mg PO Q4H PRN PRN Reason: FEVER Chlorhexidine Gluconate (Hibiclens For Decolonization -) 1 applic TP HS [facility] Last Admin: 12/04/19 22:20 Dose: 1 applic Octreotide Acetate 200 mcg/Octreotide Acetate 1,000 mcg/Dextrose 500 mls @ 20.833 mls/hr IVPB ASDIR [facility]; Protocol Last Admin: 12/04/19 13:00 Dose: 20.833 mls/hr Pantoprazole Sodium 80 mg/ (Sodium Chloride) 100 mls @ 10 mls/hr IVPB Q10H [facility] Last Admin: 12/05/19 09:24 Dose: 10 mls/hr Sodium Chloride (Normal Saline -) 250 mls @ 3,000 mls/hr IV PRN PRN PRN Reason: Hypotension during Dialysis Stop: 12/06/19 10:36 Levetiracetam (Keppra Injection -) 500 mg IVPB BID [facility] Last Admin: 12/04/19 22:20 Dose: 500 mg Levothyroxine Sodium (Synthroid Injection -) 40 mcg IVPUSH DAILY [facility] Last Admin: 12/04/19 10:01 Dose: 40 mcg Lidocaine HCl (Xylocaine 2% Jelly) 1 applic TP PRN PRN PRN Reason: MODERATE PAIN Mupirocin (Bactroban Ointment (For Decolonization) -) 1 applic NS BID [facility] Stop: 12/08/19 21:59 Last Admin: 12/04/19 22:20 Dose: 1 applic Trimethobenzamide HCl (Tigan Injection -) 200 mg IM Q12H PRN PRN Reason: NAUSEA - Objective Vital Signs: Vital Signs Temperature 97.9 F 12/05/19 11:50 Pulse Rate 75 12/05/19 12:05 Respiratory Rate 19 12/05/19 12:05 Blood Pressure 134/74 12/05/19 12:05 O2 Sat by Pulse Oximetry (%) 100 12/04/19 21:00 Constitutional: Yes: No Distress, Calm Cardiovascular: Yes: S1, S2 Respiratory: Yes: Regular, CTA Bilaterally Gastrointestinal: Yes: Normal Bowel Sounds, Soft Musculoskeletal: Yes: WNL Extremities: Yes: WNL Neurological: Yes: Alert, Oriented Psychiatric: Yes: Alert, Oriented Labs: CBC, BMP 12/05/19 12:01 12/05/19 05:25 INR, PTT INR 1.30 (0.83-1.09) H 12/04/19 05:32 Assessment/Plan GI Bleed Acute Blood Loss Anemia Thrombocytopenia/Leukopenia Liver Cirrhosis s/p TIPS ESRD on HD Lactic Acidosis resolved Hypothyroidism Seizure Disorder plan continue mgmt as per icu transfusions still bleeding close watch further plan awaited rest as per team cc 40 min
[2019-12-05 12:43] LABS: INR 1.18 (0.83-1.09)
[2019-12-05 12:45] LABS: ACTIVATED PTT 28.2 SECONDS (25.2-36.5)
[2019-12-05] MEDS ORDERED: PT OWN MED DRAWER 7, Y5N ONE (13:50)
[2019-12-05 14:22] VITALS: BMI 28.0
[2019-12-05] MEDS: LEVOTHYROXINE SODIUM 100 MCG VIAL IVPUSH SCH (16:06)
[2019-12-05] MEDS: levETIRAcetam 500 MG/5 ML INJECTION VIAL IVPB SCH ×2 (16:06→21:49)
[2019-12-05] MEDS: OCTREOTIDE ACETATE 200 MCG, OCTREOTIDE ACETATE 1,000 MCG in DEXTROSE 5%-WATER - 496 ML IVPB SCH (16:36)
--- NOTE | 2019-12-05 16:50 | PN ---
Progress Note, Physician History of Present Illness: Pt seen and examined at bedside. He is awake and alert. He is tolerating HD. - Current Medication List Current Medications: Active Medications Acetaminophen (Tylenol -) 650 mg PO Q4H PRN PRN Reason: FEVER Chlorhexidine Gluconate (Hibiclens For Decolonization -) 1 applic TP HS [facility] Last Admin: 12/04/19 22:20 Dose: 1 applic Octreotide Acetate 200 mcg/Octreotide Acetate 1,000 mcg/Dextrose 500 mls @ 20.833 mls/hr IVPB ASDIR DEV; Protocol Last Admin: 12/05/19 16:36 Dose: 20.833 mls/hr Pantoprazole Sodium 80 mg/ (Sodium Chloride) 100 mls @ 10 mls/hr IVPB Q10H [facility] Last Admin: 12/05/19 16:37 Dose: 10 mls/hr Sodium Chloride (Normal Saline -) 250 mls @ 3,000 mls/hr IV PRN PRN PRN Reason: Hypotension during Dialysis Stop: 12/06/19 10:36 Levetiracetam (Keppra Injection -) 500 mg IVPB BID [facility] Last Admin: 12/05/19 16:06 Dose: 500 mg Levothyroxine Sodium (Synthroid Injection -) 40 mcg IVPUSH DAILY [facility] Last Admin: 12/05/19 16:06 Dose: 40 mcg Lidocaine HCl (Xylocaine 2% Jelly) 1 applic TP PRN PRN PRN Reason: MODERATE PAIN Mupirocin (Bactroban Ointment (For Decolonization) -) 1 applic NS BID [facility] Stop: 12/08/19 21:59 Last Admin: 12/05/19 11:00 Dose: 1 applic Trimethobenzamide HCl (Tigan Injection -) 200 mg IM Q12H PRN PRN Reason: NAUSEA - Objective Vital Signs: Vital Signs Temperature 97.9 F 12/05/19 15:30 Pulse Rate 79 12/05/19 15:45 Respiratory Rate 19 12/05/19 15:45 Blood Pressure 154/76 12/05/19 15:45 O2 Sat by Pulse Oximetry (%) 100 12/05/19 09:00 Constitutional: Yes: Calm Eyes: Yes: Conjunctiva Clear HENT: Yes: Atraumatic Cardiovascular: Yes: S1, S2 Respiratory: Yes: CTA Bilaterally Gastrointestinal: Yes: Soft Genitourinary: Yes: WNL Musculoskeletal: Yes: WNL Edema: No Integumentary: Yes: WNL Neurological: Yes: Oriented Psychiatric: Yes: Oriented Labs: CBC, BMP 12/05/19 12:01 12/05/19 05:25 INR, PTT INR 1.18 (0.83-1.09) H 12/05/19 12:01 Fibrinogen 203.0 mg/dL (238-498) L 12/05/19 12:01 Problem List - Problems (1) Rectal bleeding Code(s): K62.5 - HEMORRHAGE OF ANUS AND RECTUM (2) ESRD (end stage renal disease) Code(s): N18.6 - END STAGE RENAL DISEASE Assessment/Plan Current Medications Generic Name Dose Route Start Last Admin Trade Name Freq PRN Reason Stop Dose Admin Acetaminophen 650 mg 12/03/19 20:26 Tylenol - PO Q4H PRN FEVER Chlorhexidine Gluconate 1 applic 12/03/19 22:00 12/04/19 22:20 Hibiclens For Decolonization - TP 1 applic HS DEV Administration Octreotide Acetate 200 mcg/ 500 mls @ 20.833 mls/hr 12/03/19 13:00 12/05/19 16:36 Octreotide Acetate 1,000 mcg/ IVPB 20.833 mls/hr Dextrose ASDIR DEV Administration Protocol Pantoprazole Sodium 80 mg/ 100 mls @ 10 mls/hr 12/04/19 11:30 12/05/19 16:37 Sodium Chloride IVPB 10 mls/hr Q10H DEV Administration 8 MG/HR Sodium Chloride 250 mls @ 3,000 mls/hr 12/05/19 10:37 Normal Saline - IV 12/06/19 10:36 PRN PRN Hypotension during Dialysis Levetiracetam 500 mg 12/04/19 10:00 12/05/19 16:06 Keppra Injection - IVPB 500 mg BID DEV Administration Levothyroxine Sodium 40 mcg 12/04/19 10:00 12/05/19 16:06 Synthroid Injection - IVPUSH 40 mcg DAILY DEV Administration Lidocaine HCl 1 applic 12/04/19 19:52 Xylocaine 2% Jelly TP PRN PRN MODERATE PAIN Mupirocin 1 applic 12/03/19 22:00 12/05/19 11:00 Bactroban Ointment (For Decolonization) - NS 12/08/19 21:59 1 applic BID DEV Administration Trimethobenzamide HCl 200 mg 12/04/19 02:07 Tigan Injection - IM Q12H PRN NAUSEA Impression 1. ESRD 2. htn 3. hx etoh abuse 4. liver cirrhosis with tips 5. anemia 6. rectal bleeding 7. lactic acidosis 8. GI bleed Plan - HD today - monitor hg - transfuse as needed - lytes stabilizing - GI follow up - 4 180 abf 400 3 k bath
--- NOTE | 2019-12-05 18:32 | PN.GI ---
GI Progress Note Subjective: seen in the ICU rectal bleeding less, feels better, no abdominal pain, hungry, HGB stable at 8 gramstoday - Objective Vital Signs: Vital Signs Temperature 97.8 F 12/05/19 17:15 Pulse Rate 79 12/05/19 17:15 Respiratory Rate 19 12/05/19 17:15 Blood Pressure 164/83 12/05/19 17:15 O2 Sat by Pulse Oximetry (%) 100 12/05/19 09:00 Constitutional: Well Nourished Eyes: Yes: Conjunctiva Clear HENT: Yes: Atraumatic Neck: Yes: Supple Cardiovascular: Yes: Regular Rate and Rhythm Respiratory: Yes: CTA Bilaterally ...Palpate: Yes: Soft. No: Firm/Rigid, Guarding, Hepatomegaly, Mass, Pulsatile Mass, Splenomegaly, Tenderness Labs: CBC, BMP 12/05/19 12:01 12/05/19 05:25 INR, PTT INR 1.18 (0.83-1.09) H 12/05/19 12:01 Fibrinogen 203.0 mg/dL (238-498) L 12/05/19 12:01 Hepatic Panel Total Bilirubin 1.6 mg/dL (0.2-1) H 12/05/19 05:25 AST 25 U/L (15-37) 12/05/19 05:25 ALT 12 U/L (13-61) L 12/05/19 05:25 Alkaline Phosphatase 91 U/L (45-117) 12/05/19 05:25 Albumin 2.6 g/dl (3.4-5.0) L 12/05/19 05:25 Active Medications Generic Name Dose Route Start Last Admin Trade Name Freq PRN Reason Stop Dose Admin Acetaminophen 650 mg 12/03/19 20:26 Tylenol - PO Q4H PRN FEVER Chlorhexidine Gluconate 1 applic 12/03/19 22:00 12/04/19 22:20 Hibiclens For Decolonization - TP 1 applic HS DEV Administration Octreotide Acetate 200 mcg/ 500 mls @ 20.833 mls/hr 12/03/19 13:00 12/05/19 16:36 Octreotide Acetate 1,000 mcg/ IVPB 20.833 mls/hr Dextrose ASDIR DEV Administration Protocol Pantoprazole Sodium 80 mg/ 100 mls @ 10 mls/hr 12/04/19 11:30 12/05/19 16:37 Sodium Chloride IVPB 10 mls/hr Q10H DEV Administration 8 MG/HR Sodium Chloride 250 mls @ 3,000 mls/hr 12/05/19 10:37 Normal Saline - IV 12/06/19 10:36 PRN PRN Hypotension during Dialysis Levetiracetam 500 mg 12/04/19 10:00 12/05/19 16:06 Keppra Injection - IVPB 500 mg BID DEV Administration Levothyroxine Sodium 40 mcg 12/04/19 10:00 12/05/19 16:06 Synthroid Injection - IVPUSH 40 mcg DAILY DEV Administration Lidocaine HCl 1 applic 12/04/19 19:52 Xylocaine 2% Jelly TP PRN PRN MODERATE PAIN Mupirocin 1 applic 12/03/19 22:00 12/05/19 11:00 Bactroban Ointment (For Decolonization) - NS 12/08/19 21:59 1 applic BID DEV Administration Trimethobenzamide HCl 200 mg 12/04/19 02:07 Tigan Injection - IM Q12H PRN NAUSEA Problem List - Problems (1) Rectal bleeding Assessment/Plan: improved R> clear liquids continue Octreotide drip consider to transfuse 2 units FFP Code(s): K62.5 - HEMORRHAGE OF ANUS AND RECTUM
--- NOTE | 2019-12-05 19:00 | PN ---
Progress Note (short form) - Note Progress Note: Spoke with Dr Watson who thinks patient needs to be transferred to [facility] to Dr Luna the child [facility] worker. Also recommended FFP as pt is likely bleeding from varices and has no clotting factors. FFPs ordered. Will initiate transfer process.
[2019-12-05] MEDS ORDERED: diphenhydrAMINE HCL 25 MG CAPSULE (FP) PO ONE (19:38)
[2019-12-05] MEDS: CHLORHEXIDINE GLUCONATE 4% CLEANSER FOR DECOLONIZATION TP SCH (21:49)
--- NOTE | 2019-12-05 22:17 | PN ---
Teaching Attending Note Name of Resident: Denis Mike ATTENDING PHYSICIAN STATEMENT I saw and evaluated the patient. I reviewed the resident's note and discussed the case with the resident. I agree with the resident's findings and plan as documented. CONSULT REQUEST: Pancytopenia 49 y/o gentleman with PMH HTN, HLD, ESRD (TTS), cirrhosis secondary to ETOH abuse s/p TIPS, depression, multiple upper GI bleeds requiring esophageal varices banding who presented to ED with nausea, NBNB vomiting, diffuse abdominal pain 8/10 and bloody diarrhea for the previous 4 days. Patient also endorsed dark tarry stools for the previous 4 weeks. S: Doing well in MICU. Denied any new complaints O: Last Vital Signs Temp Pulse Resp BP Pulse Ox 97.8 F 75 20 152/83 100 12/05/19 17:15 12/05/19 21:00 12/05/19 21:00 12/05/19 21:00 12/05/19 09:00 Gen: NAD HEENT: MMM CVS: S1, S2 Abd: Soft Ext: No edema 12/05/19 12:01 12/05/19 05:25 Current Medications Acetaminophen (Tylenol -) 650 mg PO Q4H PRN PRN Reason: FEVER Chlorhexidine Gluconate (Hibiclens For Decolonization -) 1 applic TP HS [facility] Last Admin: 12/05/19 21:49 Dose: 1 applic Octreotide Acetate 200 mcg/Octreotide Acetate 1,000 mcg/Dextrose 500 mls @ 20.833 mls/hr IVPB ASDIR DEV; Protocol Last Admin: 12/05/19 16:36 Dose: 20.833 mls/hr Pantoprazole Sodium 80 mg/ (Sodium Chloride) 100 mls @ 10 mls/hr IVPB Q10H DEV Last Admin: 12/05/19 16:37 Dose: 10 mls/hr Sodium Chloride (Normal Saline -) 250 mls @ 3,000 mls/hr IV PRN PRN PRN Reason: Hypotension during Dialysis Stop: 12/06/19 10:36 Levetiracetam (Keppra Injection -) 500 mg IVPB BID DEV Last Admin: 12/05/19 21:49 Dose: 500 mg Levothyroxine Sodium (Synthroid Injection -) 40 mcg IVPUSH DAILY [facility] Last Admin: 12/05/19 16:06 Dose: 40 mcg Lidocaine HCl (Xylocaine 2% Jelly) 1 applic TP PRN PRN PRN Reason: MODERATE PAIN Mupirocin (Bactroban Ointment (For Decolonization) -) 1 applic NS BID DEV Stop: 12/08/19 21:59 Last Admin: 12/05/19 21:49 Dose: 1 applic Trimethobenzamide HCl (Tigan Injection -) 200 mg IM Q12H PRN PRN Reason: NAUSEA ASSESSMENT/PLAN: 49 y/o gentleman with PMH HTN, HLD, ESRD (TTS), cirrhosis secondary to ETOH abuse s/p TIPS, depression, multiple Upper GI bleeds requiring esophageal varices banding who presented to ED with nausea, NBNB vomiting and bloody diarrhea for the previous 4 days, pt recieved 4-6 units of PRBC and 2 plt so far , CT A/P reviewed, pt cont to have intermittent bloody diarrhea. Hematology called for pancytopenia Recommend: 1) GIB. Per GI and MICU Team 2) PT/INR, PTT, Fibrinogen 3) Hb>8 and Plts > 50,000 if acute bleeding--> Please give one unit MDP every 8 hrs for 24 hrs. 4) Rest per 's note 5) Thank you for this consultation
[2019-12-05] MEDS ORDERED: SODIUM CHLORIDE 500 ML IV STA (23:54)
[2019-12-05] MEDS ORDERED: FAMOTIDINE 20 MG/50 ML IVPB 20 MG/50 ML MG IVPB ONE (23:54)
[2019-12-06 00:42] LABS: BLOOD UREA NITROGEN 9.6 mg/dL (7-18); CALCIUM 7.6 mg/dL (8.5-10.1); CREATININE 3.8 mg/dL (0.55-1.3); POTASSIUM 3.6 mmol/L (3.5-5.1)
[2019-12-06] MEDS: PANTOPRAZOLE SODIUM 80 MG in SODIUM CHLORIDE 100 ML IVPB SCH ×2 (05:16→16:04)
[2019-12-06 06:43] LABS: BASO % 0.3 % (0-2.0); EOS % 8.4 % (0-4.5); HEMATOCRIT 20.8 % (35.4-49); HEMOGLOBIN 7.2 GM/dL (11.7-16.9); LYMPH % 17.2 % (8-40); MCH 31.2 pg (25.7-33.7); MCHC 34.5 g/dl (32.0-35.9); MEAN CELL VOLUME 90.4 fl (80-96); MEAN PLT VOLUME 9.4 fl (7.5-11.1); MONO % 9.6 % (3.8-10.2); NEUT % 64.5 % (42.8-82.8); PLATELET COUNT 45 K/MM3 (134-434); RDW 15.6 % (11.9-15.9); WHITE BLOOD COUNT 2.7 K/mm3 (4.0-10.0)
[2019-12-06 06:57] LABS: ALBUMIN 2.5 g/dl (3.4-5.0); BILIRUBIN,TOTAL 1.3 mg/dL (0.2-1); BLOOD UREA NITROGEN 10.3 mg/dL (7-18); CALCIUM 7.4 mg/dL (8.5-10.1); CREATININE 4.2 mg/dL (0.55-1.3); MAGNESIUM 1.8 mg/dL (1.8-2.4); PHOSPHOROUS 2.5 mg/dL (2.5-4.9); POTASSIUM 3.4 mmol/L (3.5-5.1); TOT PROT 4.6 g/dl (6.4-8.2)
[2019-12-06 07:01] LABS: INR 1.2 (0.83-1.09); PROTHROMBIN TIME (PATIENT) 14.2 SEC (9.7-13.0)
[2019-12-06 07:04] LABS: ACTIVATED PTT 27.5 SECONDS (25.2-36.5)
[2019-12-06] MEDS ORDERED: hydrOXYzine HCL 100 MG/2 ML VIAL IM ONE ×2 (08:38→10:00)
--- NOTE | 2019-12-06 09:21 | PN ---
Progress Note, Physician - Current Medication List Current Medications: Active Medications Acetaminophen (Tylenol -) 650 mg PO Q4H PRN PRN Reason: FEVER Chlorhexidine Gluconate (Hibiclens For Decolonization -) 1 applic TP HS [facility] Last Admin: 12/05/19 21:49 Dose: 1 applic Diphenhydramine HCl (Benadryl Injection -) 25 mg IVPUSH Q6H PRN PRN Reason: ALLERGIES Hydroxyzine HCl (Vistaril Injection -) 50 mg IM ONCE ONE Stop: 12/06/19 08:43 Octreotide Acetate 200 mcg/Octreotide Acetate 1,000 mcg/Dextrose 500 mls @ 20.833 mls/hr IVPB ASDIR [facility]; Protocol Last Admin: 12/05/19 16:36 Dose: 20.833 mls/hr Pantoprazole Sodium 80 mg/ (Sodium Chloride) 100 mls @ 10 mls/hr IVPB Q10H [facility] Last Admin: 12/06/19 05:16 Dose: Not Given Sodium Chloride (Normal Saline -) 250 mls @ 3,000 mls/hr IV PRN PRN PRN Reason: Hypotension during Dialysis Stop: 12/06/19 10:36 Levetiracetam (Keppra Injection -) 500 mg IVPB BID [facility] Last Admin: 12/05/19 21:49 Dose: 500 mg Levothyroxine Sodium (Synthroid Injection -) 40 mcg IVPUSH DAILY [facility] Last Admin: 12/05/19 16:06 Dose: 40 mcg Lidocaine HCl (Xylocaine 2% Jelly) 1 applic TP PRN PRN PRN Reason: MODERATE PAIN Mupirocin (Bactroban Ointment (For Decolonization) -) 1 applic NS BID [facility] Stop: 12/08/19 21:59 Last Admin: 12/05/19 21:49 Dose: 1 applic Trimethobenzamide HCl (Tigan Injection -) 200 mg IM Q12H PRN PRN Reason: NAUSEA - Objective Vital Signs: Vital Signs Temperature 98.3 F 12/06/19 06:00 Pulse Rate 78 12/06/19 08:00 Respiratory Rate 16 12/06/19 06:00 Blood Pressure 129/73 12/06/19 06:00 O2 Sat by Pulse Oximetry (%) 100 12/06/19 08:00 Cardiovascular: Yes: Regular Rate and Rhythm Respiratory: Yes: Regular, CTA Bilaterally Gastrointestinal: Yes: Normal Bowel Sounds, Soft. No: Tenderness Labs: CBC, BMP 12/06/19 05:15 12/06/19 05:15 INR, PTT INR 1.20 (0.83-1.09) H 12/06/19 05:15 Fibrinogen 203.0 mg/dL (238-498) L 12/05/19 12:01 Problem List - Problems (1) GI (gastrointestinal bleed) Assessment/Plan: H/H 8.6. 1 unit of PRBC WAS given.Aditional blood And Platelets HX of esophageal varices , 1 tubular adenoma and diverticulosis CTA negative . Repeat CT GI consult noted--Follow up pt to be transferred to tertiary center Octeotride drip Protonix IV BID Code(s): K92.2 - GASTROINTESTINAL HEMORRHAGE, UNSPECIFIED (2) Anemia Assessment/Plan: as above GIve additional prbc Code(s): D64.9 - ANEMIA, UNSPECIFIED (3) ESRD (end stage renal disease) on dialysis Assessment/Plan: Renal Dr Sparks consulted , recs appreciated monitor lytes Code(s): N18.6 - END STAGE RENAL DISEASE; Z99.2 - DEPENDENCE ON RENAL DIALYSIS (4) History of cirrhosis of liver Assessment/Plan: per gi Code(s): Z87.19 - PERSONAL HISTORY OF OTHER DISEASES OF THE DIGESTIVE SYSTEM (5) History of esophageal varices with bleeding Assessment/Plan: per gi see above Code(s): Z87.19 - PERSONAL HISTORY OF OTHER DISEASES OF THE DIGESTIVE SYSTEM (6) Pancytopenia Assessment/Plan: as above hem consult noted Code(s): D61.818 - OTHER PANCYTOPENIA
[2019-12-06] MEDS ORDERED: PT OWN MED DRAWER 7, Y5N ONE ×2 (10:09→12:44)
[2019-12-06] MEDS: MUPIROCIN 2% TOPICAL OINTMENT FOR DECOLONIZATION NS SCH ×2 (10:11→21:48)
[2019-12-06] MEDS: levETIRAcetam 500 MG/5 ML INJECTION VIAL IVPB SCH (10:11)
[2019-12-06] MEDS: LEVOTHYROXINE SODIUM 100 MCG VIAL IVPUSH SCH (10:12)
--- NOTE | 2019-12-06 10:38 | PN ---
Teaching Attending Note Name of Resident: Viry James ATTENDING PHYSICIAN STATEMENT I saw and evaluated the patient. I reviewed the resident's note and discussed the case with the resident. I agree with the resident's findings and plan as documented. SUBJECTIVE: Patient seen and examined in the ICU. Awake and alert. (+) diffuse pruritus that is a little better than last night. Denies occult bleeding overnight. No CP or SOB. Accepted and pending transfer to [facility]. Intake & Output 12/03/19 12/04/19 12/05/19 12/06/19 23:59 23:59 23:59 23:59 Intake Total 750 2212.6 3404.6 389.6 Output Total 1000 50 1500 Balance -250 2162.6 1904.6 389.6 Weight 185 lb 189 lb 8 oz 190 lb 188 lb 1.6 oz Last Vital Signs Temp Pulse Resp BP Pulse Ox 99.2 F 74 17 148/77 100 12/06/19 10:00 12/06/19 10:00 12/06/19 10:00 12/06/19 10:00 12/06/19 10:00 Active Medications Acetaminophen (Tylenol -) 650 mg PO Q4H PRN PRN Reason: FEVER Chlorhexidine Gluconate (Hibiclens For Decolonization -) 1 applic TP HS DEV Last Admin: 12/05/19 21:49 Dose: 1 applic Diphenhydramine HCl (Benadryl Injection -) 25 mg IVPUSH Q6H PRN PRN Reason: ALLERGIES Last Admin: 12/06/19 10:10 Dose: 25 mg Diphenhydramine HCl (Benadryl -) 25 mg PO ONCE ONE Stop: 12/06/19 10:30 Hydroxyzine Pamoate (Vistaril -) 25 mg PO ONCE ONE Stop: 12/06/19 10:30 Octreotide Acetate 200 mcg/Octreotide Acetate 1,000 mcg/Dextrose 500 mls @ 20.833 mls/hr IVPB ASDIR [facility]; Protocol Last Admin: 12/05/19 16:36 Dose: 20.833 mls/hr Pantoprazole Sodium 80 mg/ (Sodium Chloride) 100 mls @ 10 mls/hr IVPB Q10H DEV Last Admin: 12/06/19 05:16 Dose: Not Given Levetiracetam (Keppra Injection -) 500 mg IVPB BID [facility] Last Admin: 12/06/19 10:11 Dose: 500 mg Levothyroxine Sodium (Synthroid Injection -) 40 mcg IVPUSH DAILY [facility] Last Admin: 12/06/19 10:12 Dose: 40 mcg Lidocaine HCl (Xylocaine 2% Jelly) 1 applic TP PRN PRN PRN Reason: MODERATE PAIN Methylprednisolone Sodium Succinate (Solu-Medrol -) 40 mg IVPUSH ONCE ONE Stop: 12/06/19 10:29 Mupirocin (Bactroban Ointment (For Decolonization) -) 1 applic NS BID [facility] Stop: 12/08/19 21:59 Last Admin: 12/06/19 10:11 Dose: 1 applic Trimethobenzamide HCl (Tigan Injection -) 200 mg IM Q12H PRN PRN Reason: NAUSEA Gen: NAD at rest Heart: RRR Lung: decreased breath sounds at the bases Abd: soft, nontender Ext: no edema Laboratory Results - last 24 hr 12/03/19 12/05/19 12/05/19 11:30 12:01 12:01 WBC 2.5 L RBC 2.66 L Hgb 8.2 L Hct 23.8 L MCV 89.4 MCH 30.8 MCHC 34.5 RDW 15.5 Plt Count 35 L* MPV 8.9 Absolute Neuts (auto) 1.7 Neutrophils % 67.8 Lymphocytes % 16.7 Monocytes % 9.5 Eosinophils % 5.5 H Basophils % 0.5 Nucleated RBC % 0 PT with INR 14.00 H INR 1.18 H PTT (Actin FS) 28.2 Fibrinogen Sodium Potassium Chloride Carbon Dioxide Anion Gap BUN Creatinine Est GFR (CKD-EPI)AfAm Est GFR (CKD-EPI)NonAf Random Glucose Calcium Phosphorus Magnesium Total Bilirubin AST ALT Alkaline Phosphatase Total Protein Albumin Crossmatch See Detail Transfuse React Work-up 12/05/19 12/06/19 12/06/19 12:01 00:00 00:06 WBC RBC Hgb Hct MCV MCH MCHC RDW Plt Count MPV Absolute Neuts (auto) Neutrophils % Lymphocytes % Monocytes % Eosinophils % Basophils % Nucleated RBC % PT with INR INR PTT (Actin FS) Fibrinogen 203.0 L Sodium 135 L Potassium 3.6 Chloride 98 Carbon Dioxide 30 Anion Gap 7 L BUN 9.6 Creatinine 3.8 H Est GFR (CKD-EPI)AfAm 20.59 Est GFR (CKD-EPI)NonAf 17.77 Random Glucose 114 H Calcium 7.6 L Phosphorus Magnesium Total Bilirubin AST ALT Alkaline Phosphatase Total Protein Albumin Crossmatch See Detail Transfuse React Work-up See comment 12/06/19 12/06/19 12/06/19 05:15 05:15 05:15 WBC 2.7 L RBC 2.30 L Hgb 7.2 L Hct 20.8 L MCV 90.4 MCH 31.2 MCHC 34.5 RDW 15.6 Plt Count 45 L D MPV 9.4 Absolute Neuts (auto) 1.7 Neutrophils % 64.5 Lymphocytes % 17.2 Monocytes % 9.6 Eosinophils % 8.4 H Basophils % 0.3 Nucleated RBC % 0 PT with INR 14.20 H INR 1.20 H PTT (Actin FS) 27.5 Fibrinogen Sodium 135 L Potassium 3.4 L Chloride 98 Carbon Dioxide 30 Anion Gap 7 L BUN 10.3 Creatinine 4.2 H Est GFR (CKD-EPI)AfAm 18.24 Est GFR (CKD-EPI)NonAf 15.74 Random Glucose 70 L Calcium 7.4 L Phosphorus 2.5 Magnesium 1.8 Total Bilirubin 1.3 H AST 22 ALT 12 L Alkaline Phosphatase 76 Total Protein 4.6 L Albumin 2.5 L Crossmatch Transfuse React Work-up ASSESSMENT AND PLAN: GI Bleed Acute Blood Loss Anemia Thrombocytopenia/Leukopenia Liver Cirrhosis s/p TIPS ESRD on HD Lactic Acidosis resolved Hypothyroidism Seizure Disorder - monitor CBC - Normal transfusion thresholds - protonix, octreotide drips - NPO - HD per renal - DVT prophylaxis - For transfer to [facility] for further GI workup Dr Rob
[2019-12-06] MEDS ORDERED: methylPREDNISolone NA SUCC 40 MG/1 ML VIAL IVPUSH ONE (10:45)
[2019-12-06] MEDS ORDERED: hydrOXYzine PAMOATE 25 MG CAPSULE (FP) PO ONE ×2 (10:45→11:16)
[2019-12-06] MEDS ORDERED: diphenhydrAMINE HCL 25 MG CAPSULE (FP) PO ONE (10:45)
--- NOTE | 2019-12-06 12:22 | PN ---
Progress Note, Physician History of Present Illness: stable dark stools - Current Medication List Current Medications: Active Medications Acetaminophen (Tylenol -) 650 mg PO Q4H PRN PRN Reason: FEVER Last Admin: 12/06/19 11:14 Dose: 650 mg Chlorhexidine Gluconate (Hibiclens For Decolonization -) 1 applic TP HS [facility] Last Admin: 12/05/19 21:49 Dose: 1 applic Diphenhydramine HCl (Benadryl Injection -) 25 mg IVPUSH Q6H PRN PRN Reason: ALLERGIES Last Admin: 12/06/19 10:10 Dose: 25 mg Octreotide Acetate 200 mcg/Octreotide Acetate 1,000 mcg/Dextrose 500 mls @ 20.833 mls/hr IVPB ASDIR [facility]; Protocol Last Admin: 12/05/19 16:36 Dose: 20.833 mls/hr Pantoprazole Sodium 80 mg/ (Sodium Chloride) 100 mls @ 10 mls/hr IVPB Q10H [facility] Last Admin: 12/06/19 05:16 Dose: Not Given Levetiracetam (Keppra Injection -) 500 mg IVPB BID [facility] Last Admin: 12/06/19 10:11 Dose: 500 mg Levothyroxine Sodium (Synthroid Injection -) 40 mcg IVPUSH DAILY [facility] Last Admin: 12/06/19 10:12 Dose: 40 mcg Lidocaine HCl (Xylocaine 2% Jelly) 1 applic TP PRN PRN PRN Reason: MODERATE PAIN Mupirocin (Bactroban Ointment (For Decolonization) -) 1 applic NS BID [facility] Stop: 12/08/19 21:59 Last Admin: 12/06/19 10:11 Dose: 1 applic Trimethobenzamide HCl (Tigan Injection -) 200 mg IM Q12H PRN PRN Reason: NAUSEA - Objective Vital Signs: Vital Signs Temperature 99.0 F 12/06/19 11:59 Pulse Rate 64 12/06/19 11:59 Respiratory Rate 18 12/06/19 11:59 Blood Pressure 137/78 12/06/19 11:59 O2 Sat by Pulse Oximetry (%) 100 12/06/19 10:00 Constitutional: Yes: No Distress, Calm Cardiovascular: Yes: S1, S2 Respiratory: Yes: Regular, CTA Bilaterally Gastrointestinal: Yes: Normal Bowel Sounds, Soft Musculoskeletal: Yes: WNL Extremities: Yes: WNL Neurological: Yes: Alert, Oriented Psychiatric: Yes: Alert, Oriented Labs: CBC, BMP 12/06/19 05:15 12/06/19 05:15 INR, PTT INR 1.20 (0.83-1.09) H 12/06/19 05:15 Fibrinogen 203.0 mg/dL (238-498) L 12/05/19 12:01 Assessment/Plan GI Bleed Acute Blood Loss Anemia Thrombocytopenia/Leukopenia Liver Cirrhosis s/p TIPS ESRD on HD Lactic Acidosis resolved Hypothyroidism Seizure Disorder plan continue mgmt as per icu transfusions still bleeding close watch further plan awaited rest as per team plan for transfer to [facility]
--- NOTE | 2019-12-06 13:07 | PN.GI ---
GI Progress Note Subjective: Dark BM this morning, maroon BM's described yesterday Abdominal pain improved - Objective Vital Signs: Vital Signs Temperature 99.0 F 12/06/19 11:59 Pulse Rate 70 12/06/19 12:00 Respiratory Rate 18 12/06/19 11:59 Blood Pressure 137/78 12/06/19 11:59 O2 Sat by Pulse Oximetry (%) 97 12/06/19 12:00 Constitutional: Calm Eyes: No: Sclera Icterus Cardiovascular: Yes: Regular Rate and Rhythm Respiratory: Yes: CTA Bilaterally Gastrointestinal Inspection: No: Distention ...Auscultate: Yes: Normoactive Bowel Sounds ...Palpate: Yes: Soft. No: Tenderness ...Percussion: No: Tympanitic ...Rectal Exam: Yes: Other (Refused by patient) Edema: No (No LE edema) Labs: CBC, BMP 12/06/19 05:15 12/06/19 05:15 INR, PTT INR 1.20 (0.83-1.09) H 12/06/19 05:15 Fibrinogen 203.0 mg/dL (238-498) L 12/05/19 12:01 Problem List - Problems (1) Rectal bleeding Assessment/Plan: No overt bleeding Receiving 1 U PRBC For EGD +/- banding today to exclude variceal bleed. Discussed potential risks of the procedure like but not limited to bleeding, perforation requiring surgery to repair, infection, sedation medication effects all of which could be potentially life threatening. He has agreed to the procedure. Awaiting transfer to [facility] Code(s): K62.5 - HEMORRHAGE OF ANUS AND RECTUM
--- NOTE | 2019-12-06 13:57 | EKG ---
Test Reason : Blood Pressure : / mmHG Vent. Rate : 106 BPM Atrial Rate : 106 BPM P-R Int : 168 ms QRS Dur : 094 ms QT Int : 412 ms P-R-T Axes : 000 028 027 degrees QTc Int : 547 ms SINUS TACHYCARDIA NONSPECIFIC ST ABNORMALITY PROLONGED QT ABNORMAL ECG WHEN COMPARED WITH ECG OF 03-DEC-2019 11:18, QT HAS LENGTHENED Confirmed by YOLI JONES MD [id number]) on 12/06/2019 1:57:19 PM Referred By: Confirmed By:YOLI JONES MD
--- NOTE | 2019-12-06 14:18 | PN ---
Physical Exam: SUBJECTIVE: Patient seen and examined. 3 episodes dark tarry stools overnight, no julissa bleeding. To have EGD today. Up for transfer to [place] for higher level of care-- accepted patient OBJECTIVE: Vital Signs Period Temp Pulse Resp BP Sys/Horton Pulse Ox Last 24 Hr 97.8 F-99.2 F 64-94 12-21 129-165/62-90 97-100 GENERAL: AOx3 NAD HEENT: NCAT. conjunctiva clear MMM. L IJ in place c/d/i LUNGS: CTABL HEART: RRR S1S2 no mrg ABDOMEN: Soft NTND +BS EXTREMITIES: 2+ pulses, warm, well-perfused, no edema. NEUROLOGICAL: Cranial nerves II through XII grossly intact. Normal speech normal gait. PSYCH: Normal mood, normal affect. SKIN: Warm, dry, normal turgor, no rashes or lesions noted Laboratory Results - last 24 hr 12/03/19 12/06/19 12/06/19 11:30 00:00 00:06 WBC RBC Hgb Hct MCV MCH MCHC RDW Plt Count MPV Absolute Neuts (auto) Neutrophils % Lymphocytes % Monocytes % Eosinophils % Basophils % Nucleated RBC % PT with INR INR PTT (Actin FS) Sodium 135 L Potassium 3.6 Chloride 98 Carbon Dioxide 30 Anion Gap 7 L BUN 9.6 Creatinine 3.8 H Est GFR (CKD-EPI)AfAm 20.59 Est GFR (CKD-EPI)NonAf 17.77 Random Glucose 114 H Calcium 7.6 L Phosphorus Magnesium Total Bilirubin AST ALT Alkaline Phosphatase Total Protein Albumin Blood Type B POSITIVE Antibody Screen Negative Crossmatch See Detail See Detail Transfuse React Work-up See comment 12/06/19 12/06/19 12/06/19 05:15 05:15 05:15 WBC 2.7 L RBC 2.30 L Hgb 7.2 L Hct 20.8 L MCV 90.4 MCH 31.2 MCHC 34.5 RDW 15.6 Plt Count 45 L D MPV 9.4 Absolute Neuts (auto) 1.7 Neutrophils % 64.5 Lymphocytes % 17.2 Monocytes % 9.6 Eosinophils % 8.4 H Basophils % 0.3 Nucleated RBC % 0 PT with INR 14.20 H INR 1.20 H PTT (Actin FS) 27.5 Sodium 135 L Potassium 3.4 L Chloride 98 Carbon Dioxide 30 Anion Gap 7 L BUN 10.3 Creatinine 4.2 H Est GFR (CKD-EPI)AfAm 18.24 Est GFR (CKD-EPI)NonAf 15.74 Random Glucose 70 L Calcium 7.4 L Phosphorus 2.5 Magnesium 1.8 Total Bilirubin 1.3 H AST 22 ALT 12 L Alkaline Phosphatase 76 Total Protein 4.6 L Albumin 2.5 L Blood Type Antibody Screen Crossmatch Transfuse React Work-up Active Medications Generic Name Dose Route Start Last Admin Trade Name Freq PRN Reason Stop Dose Admin Acetaminophen 650 mg 12/03/19 20:26 12/06/19 11:14 Tylenol - PO 650 mg Q4H PRN Administration FEVER Chlorhexidine Gluconate 1 applic 12/03/19 22:00 12/05/19 21:49 Hibiclens For Decolonization - TP 1 applic HS DEV Administration Diphenhydramine HCl 25 mg 12/06/19 06:02 12/06/19 10:10 Benadryl Injection - IVPUSH 25 mg Q6H PRN Administration ALLERGIES Octreotide Acetate 200 mcg/ 500 mls @ 20.833 mls/hr 12/03/19 13:00 12/05/19 16:36 Octreotide Acetate 1,000 mcg/ IVPB 20.833 mls/hr Dextrose ASDIR DEV Administration Protocol Pantoprazole Sodium 80 mg/ 100 mls @ 10 mls/hr 12/04/19 11:30 12/06/19 05:16 Sodium Chloride IVPB Not Given Q10H DEV 8 MG/HR Levetiracetam 500 mg 12/04/19 10:00 12/06/19 10:11 Keppra Injection - IVPB 500 mg BID DEV Administration Levothyroxine Sodium 40 mcg 12/04/19 10:00 12/06/19 10:12 Synthroid Injection - IVPUSH 40 mcg DAILY DEV Administration Lidocaine HCl 1 applic 12/04/19 19:52 Xylocaine 2% Jelly TP PRN PRN MODERATE PAIN Mupirocin 1 applic 12/03/19 22:00 12/06/19 10:11 Bactroban Ointment (For Decolonization) - NS 12/08/19 21:59 1 applic BID DEV Administration Trimethobenzamide HCl 200 mg 12/04/19 02:07 Tigan Injection - IM Q12H PRN NAUSEA ASSESSMENT/PLAN: 49 y.o. 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 #[employer] -AAOx3. -c/w home dose keppra 500mg IV BID #CV -Hx of HTN. -trops neg x3 -EKG 12/04/2019 NSR, prolonged QTc 522. #Pulm -CTA: small right pleural effusion -Saturating well on RA -CXR 12/04: bibasilar infiltrates #GI -continues to have melena -Hgb dropped down to 6.6 -giving 1U prbc & 1 U plt today; f/u post transfusion cbc -trend h&h -CT A/P today: no evidence of active bleed. cirrhosis, cholelithiasis, distended bladder. periumbilical hernia (containing fat), b/l small inguinal hernias fluid in L inguinal canal vs scrotal sac, loculated small pl eff on R w / overlying pleural based masslike density rounded scar -continue ppi & octreotide drip -EGD +/- banding today to exclude variceal bleed #Renal -Patient is on HD Monday, , Monday-- dialyzed yesterday -trend renal labs -Dr. Sparks following #ID -F/u stool studies & cultures -no abx at this time #Heme/Onc -trend h&h -transfuse prn threshold <7 -f/u cbc post rbc & plt transfusion today #FEN -fluid restrx -trend cmp -npo pending egd PPX -SCDs, no chemical ac in setting of GIB -ppi, octreotide ggt #Dispo continue ICU level of care. Transfer to [facility] approved Dr. De La Torre/ Genevieve Visit type - Emergency Visit Emergency Visit: No - New Patient This patient is new to me today: No - Critical Care Critical Care patient: Yes Total Critical Care Time (in minutes): 45 Critical Care Statement: The care of this patient involved high complexity decision making to prevent further life threatening deterioration of the patient 's condition and/or to evaluate & treat vital organ system(s) failure or risk of failure. ATTENDING PHYSICIAN STATEMENT I saw and evaluated the patient. I reviewed the resident's note and discussed the case with the resident. I agree with the resident's findings and plan as documented. SUBJECTIVE: OBJECTIVE: ASSESSMENT AND PLAN:
--- NOTE | 2019-12-06 15:26 | PN ---
Progress Note (short form) - Note Progress Note: EGD complete. Report left in procedural section of physical chart and will be scanned into [employer] Problem List - Problems (1) Rectal bleeding Code(s): K62.5 - HEMORRHAGE OF ANUS AND RECTUM
[2019-12-06] MEDS ORDERED: SODIUM CHLORIDE 250 ML IV PRN (15:43)
--- NOTE | 2019-12-06 15:43 | PN ---
Progress Note, Physician History of Present Illness: Pt seen and examined at bedside. He is awake and alert. He denies shortness of breath. - Current Medication List Current Medications: Active Medications Acetaminophen (Tylenol -) 650 mg PO Q4H PRN PRN Reason: FEVER Last Admin: 12/06/19 11:14 Dose: 650 mg Chlorhexidine Gluconate (Hibiclens For Decolonization -) 1 applic TP HS DEV Last Admin: 12/05/19 21:49 Dose: 1 applic Diphenhydramine HCl (Benadryl Injection -) 25 mg IVPUSH Q6H PRN PRN Reason: ALLERGIES Last Admin: 12/06/19 10:10 Dose: 25 mg Levetiracetam (Keppra Injection -) 500 mg IVPB BID [facility] Last Admin: 12/06/19 10:11 Dose: 500 mg Levothyroxine Sodium (Synthroid Injection -) 40 mcg IVPUSH DAILY [facility] Last Admin: 12/06/19 10:12 Dose: 40 mcg Lidocaine HCl (Xylocaine 2% Jelly) 1 applic TP PRN PRN PRN Reason: MODERATE PAIN Mupirocin (Bactroban Ointment (For Decolonization) -) 1 applic NS BID [facility] Stop: 12/08/19 21:59 Last Admin: 12/06/19 10:11 Dose: 1 applic Pantoprazole Sodium (Protonix -) 20 mg PO DAILY DEV Trimethobenzamide HCl (Tigan Injection -) 200 mg IM Q12H PRN PRN Reason: NAUSEA - Objective Vital Signs: Vital Signs Temperature 98.3 F 12/06/19 14:45 Pulse Rate 66 12/06/19 14:45 Respiratory Rate 16 12/06/19 14:45 Blood Pressure 155/83 12/06/19 14:45 O2 Sat by Pulse Oximetry (%) 100 12/06/19 14:45 Constitutional: Yes: Calm Eyes: Yes: Conjunctiva Clear HENT: Yes: Atraumatic Neck: Yes: Supple Cardiovascular: Yes: S1, S2 Respiratory: Yes: CTA Bilaterally Gastrointestinal: Yes: Normal Bowel Sounds, Soft Genitourinary: Yes: WNL Edema: No Neurological: Yes: Oriented Psychiatric: Yes: Oriented Labs: CBC, BMP 12/06/19 05:15 12/06/19 05:15 INR, PTT INR 1.20 (0.83-1.09) H 12/06/19 05:15 Fibrinogen 203.0 mg/dL (238-498) L 12/05/19 12:01 Problem List - Problems (1) Rectal bleeding Code(s): K62.5 - HEMORRHAGE OF ANUS AND RECTUM (2) ESRD (end stage renal disease) Code(s): N18.6 - END STAGE RENAL DISEASE Assessment/Plan Current Medications Generic Name Dose Route Start Last Admin Trade Name Freq PRN Reason Stop Dose Admin Acetaminophen 650 mg 12/03/19 20:26 12/06/19 11:14 Tylenol - PO 650 mg Q4H PRN Administration FEVER Chlorhexidine Gluconate 1 applic 12/03/19 22:00 12/05/19 21:49 Hibiclens For Decolonization - TP 1 applic HS DEV Administration Diphenhydramine HCl 25 mg 12/06/19 06:02 12/06/19 10:10 Benadryl Injection - IVPUSH 25 mg Q6H PRN Administration ALLERGIES Levetiracetam 500 mg 12/04/19 10:00 12/06/19 10:11 Keppra Injection - IVPB 500 mg BID DEV Administration Levothyroxine Sodium 40 mcg 12/04/19 10:00 12/06/19 10:12 Synthroid Injection - IVPUSH 40 mcg DAILY DEV Administration Lidocaine HCl 1 applic 12/04/19 19:52 Xylocaine 2% Jelly TP PRN PRN MODERATE PAIN Mupirocin 1 applic 12/03/19 22:00 12/06/19 10:11 Bactroban Ointment (For Decolonization) - NS 12/08/19 21:59 1 applic BID DEV Administration Pantoprazole Sodium 20 mg 12/07/19 10:00 Protonix - PO DAILY DEV Trimethobenzamide HCl 200 mg 12/04/19 02:07 Tigan Injection - IM Q12H PRN NAUSEA Impression 1. ESRD 2. htn 3. hx etoh abuse 4. liver cirrhosis with tips 5. anemia 6. rectal bleeding 7. lactic acidosis 8. GI bleed Plan - next HD tomorrow - monitor hg - repeat labs in am - lytes stabilizing - GI follow up - 4 180 abf 400 3 k bath
[2019-12-06] MEDS: OCTREOTIDE ACETATE 200 MCG, OCTREOTIDE ACETATE 1,000 MCG in DEXTROSE 5%-WATER - 496 ML IVPB SCH (16:04)
--- NOTE | 2019-12-06 18:15 | PN ---
Progress Note (short form) - Note Progress Note: Patient seen and examined S/P EGD - portal gastropathy and gastritis Pancytopenia secondary to cirrhosis/ hypersplenism--s/p TIPS Last Vital Signs Temp Pulse Resp BP Pulse Ox 97.3 F L 67 14 157/88 100 12/06/19 15:58 12/06/19 16:00 12/06/19 15:58 12/06/19 15:58 12/06/19 16:00 HEENT: STAN, EOM Intact Cor: RSR, No murmurs, No gallops Lungs: Clear to P&A Abd: Soft, Normal bowel sounds, No organomegaly Ext:No significant edema Skin: No rashes, Integument intact CBC, BMP 12/06/19 05:15 12/06/19 05:15 INR, PTT INR 1.20 (0.83-1.09) H 12/06/19 05:15 Fibrinogen 203.0 mg/dL (238-498) L 12/05/19 12:01 Current Medications Generic Name Dose Route Start Last Admin Trade Name Freq PRN Reason Stop Dose Admin Acetaminophen 650 mg 12/03/19 20:26 12/06/19 11:14 Tylenol - PO 650 mg Q4H PRN Administration FEVER Chlorhexidine Gluconate 1 applic 12/03/19 22:00 12/05/19 21:49 Hibiclens For Decolonization - TP 1 applic HS DEV Administration Diphenhydramine HCl 25 mg 12/06/19 06:02 12/06/19 16:03 Benadryl Injection - IVPUSH 25 mg Q6H PRN Administration ALLERGIES Epoetin Kendall 10,000 unit 12/07/19 15:43 Epogen - IVPUSH 12/07/19 15:44 ONCE ONE Sodium Chloride 250 mls @ 3,000 mls/hr 12/06/19 15:43 Normal Saline - IV 12/07/19 15:43 PRN PRN Hypotension during Dialysis Levetiracetam 500 mg 12/04/19 10:00 12/06/19 10:11 Keppra Injection - IVPB 500 mg BID DEV Administration Levothyroxine Sodium 40 mcg 12/04/19 10:00 12/06/19 10:12 Synthroid Injection - IVPUSH 40 mcg DAILY DEV Administration Lidocaine HCl 1 applic 12/04/19 19:52 Xylocaine 2% Jelly TP PRN PRN MODERATE PAIN Mupirocin 1 applic 12/03/19 22:00 12/06/19 10:11 Bactroban Ointment (For Decolonization) - NS 12/08/19 21:59 1 applic BID DEV Administration Pantoprazole Sodium 20 mg 12/07/19 10:00 Protonix - PO DAILY DEV Trimethobenzamide HCl 200 mg 12/04/19 02:07 Tigan Injection - IM Q12H PRN NAUSEA Impresssion: GI bleed Gastritis Pancytopenia Portal gastropathy S/P blood /platelet infusions Hives post platelets Labs post transfusion of 2 units pending Premedicate with steroids/ benadrly with platelets Coagulation studies acceptable Transfuse to Hb> 8 gm % platletes prn bleeding Check fibrinogen - previously low normal.
[2019-12-06 20:44] VITALS: TEMP 98
[2019-12-06 20:58] LABS: HEMATOCRIT 27.2 % (35.4-49); HEMOGLOBIN 9.1 GM/dL (11.7-16.9); MCH 30.6 pg (25.7-33.7); MCHC 33.5 g/dl (32.0-35.9); MEAN CELL VOLUME 91.4 fl (80-96); MEAN PLT VOLUME 9.2 fl (7.5-11.1); PLATELET COUNT 41 K/MM3 (134-434); RBC 2.98 M/mm3 (4.00-5.60); RDW 15.2 % (11.9-15.9)
[2019-12-06 21:04] LABS: WHITE BLOOD COUNT 1.4 K/mm3 (4.0-10.0)
[2019-12-06] MEDS ORDERED: amLODIPine BESYLATE 10 MG TABLET (FP) PO SCH (21:07)
[2019-12-06] MEDS ORDERED: FLUOXETINE HCL 40 MG PO SCH (21:15)
[2019-12-06] MEDS: CHLORHEXIDINE GLUCONATE 4% CLEANSER FOR DECOLONIZATION TP SCH (21:48)
[2019-12-06] MEDS ORDERED: GABAPENTIN 300 MG CAPSULE PO SCH (22:00)
[2019-12-06] MEDS ORDERED: levETIRAcetam 500 MG TABLET (FP) PO SCH (22:00)
[2019-12-06] MEDS ORDERED: ACETAMINOPHEN 325 MG TABLET (FP) PO PRN (22:08)
[2019-12-07 00:57] VITALS: PULSE 68
[2019-12-07 00:58] VITALS: BP 122/73
[2019-12-07] MEDS ORDERED: LEVOTHYROXINE NA 50 MCG TABLET (FP) PO SCH (07:00)
[2019-12-07] MEDS ORDERED: PANTOPRAZOLE 20 MG TABLET PO SCH (10:00)
[2019-12-07] MEDS ORDERED: CALCITRIOL 0.25 MCG CAPSULE (FP) PO SCH (10:00)
[2019-12-07] MEDS ORDERED: LISINOPRIL 10 MG TABLET (FP) PO SCH (10:00)
[2019-12-07] MEDS ORDERED: FLUoxetine HCL 20 MG CAPSULE PO SCH (10:00)
[2019-12-07] MEDS ORDERED: EPOETIN ALFA 2,000 UNIT/1 ML VIAL IVPUSH ONE (15:43)
--- NOTE | 2019-12-08 21:09 | PN.GI ---
GI Progress Note Subjective: NO NEW COMPLAINTS - Objective Vital Signs: Vital Signs Temperature 98.0 F 12/06/19 20:00 Pulse Rate 68 12/07/19 00:00 Respiratory Rate 19 12/07/19 00:00 Blood Pressure 122/73 12/07/19 00:00 O2 Sat by Pulse Oximetry (%) 98 12/07/19 00:00 Constitutional: Well Nourished Eyes: Yes: WNL HENT: Yes: WNL Neck: Yes: WNL Cardiovascular: Yes: WNL Respiratory: Yes: WNL, Regular Gastrointestinal Inspection: Yes: WNL ...Auscultate: Yes: Normoactive Bowel Sounds Extremities: Yes: WNL Edema: No Labs: CBC, BMP 12/06/19 20:30 12/06/19 05:15 INR, PTT INR 1.20 (0.83-1.09) H 12/06/19 05:15 Fibrinogen 203.0 mg/dL (238-498) L 12/05/19 12:01 Problem List - Problems (1) Anemia Assessment/Plan: S/P EGD WITH FINDINGS OR GASTROPATHY - C/W PPI - IF H.H REMAINS STABLE ADVANCE DIET - PLAN FOR TRANSFER PER PRIMARY MEDICAL TEAM Code(s): D64.9 - ANEMIA, UNSPECIFIED
== END 2019-12-07 02:00 | disposition short-term general hospital (02) | DRG 377 ==
LOC: JER 11:00 → JERBED 15:21 → JICU 20:07
PROVIDERS: ATTEND Family Medicine
PROC: 5A1D70Z Performance of Urinary Filtration, Intermittent, Less than 6 Hours Per Day (ICD-10-PCS; 2019-12-03)
PROC: 30233N1 Transfusion of Nonautologous Red Blood Cells into Peripheral Vein, Percutaneous Approach (ICD-10-PCS; principal; 2019-12-04)
PROC: 05HN33Z Insertion of Infusion Device into Left Internal Jugular Vein, Percutaneous Approach (ICD-10-PCS; 2019-12-04)
PROC: B514ZZA Fluoroscopy of Left Jugular Veins, Guidance (ICD-10-PCS; 2019-12-04)
PROC: 5A1D70Z Performance of Urinary Filtration, Intermittent, Less than 6 Hours Per Day (ICD-10-PCS; 2019-12-05)
PROC: 30233K1 Transfusion of Nonautologous Frozen Plasma into Peripheral Vein, Percutaneous Approach (ICD-10-PCS; 2019-12-05)
PROC: 30233R1 Transfusion of Nonautologous Platelets into Peripheral Vein, Percutaneous Approach (ICD-10-PCS; 2019-12-05)
PROC: 0DJ08ZZ Inspection of Upper Intestinal Tract, Via Natural or Artificial Opening Endoscopic (ICD-10-PCS; 2019-12-06)
DX: K92.2 Gastrointestinal hemorrhage, unspecified (principal); N18.6 End stage renal disease; I85.11 Secondary esophageal varices with bleeding; E87.1 Hypo-osmolality and hyponatremia; D62 Acute posthemorrhagic anemia; J90 Pleural effusion, not elsewhere classified; E87.2 Acidosis; I12.0 Hypertensive chronic kidney disease with stage 5 chronic kidney disease or end stage renal disease; D61.818 Other pancytopenia; K76.6 Portal hypertension; E11.9 Type 2 diabetes mellitus without complications; I10 Essential (primary) hypertension; E78.5 Hyperlipidemia, unspecified; E11.22 Type 2 diabetes mellitus with diabetic chronic kidney disease; D73.1 Hypersplenism; K31.89 Other diseases of stomach and duodenum; D72.829 Elevated white blood cell count, unspecified; D69.6 Thrombocytopenia, unspecified; K70.30 Alcoholic cirrhosis of liver without ascites; F10.20 Alcohol dependence, uncomplicated; F41.8 Other specified anxiety disorders; G40.909 Epilepsy, unspecified, not intractable, without status epilepticus; K57.90 Diverticulosis of intestine, part unspecified, without perforation or abscess without bleeding; F17.210 Nicotine dependence, cigarettes, uncomplicated; E03.9 Hypothyroidism, unspecified; D72.819 Decreased white blood cell count, unspecified; D36.7 Benign neoplasm of other specified sites; K62.5 Hemorrhage of anus and rectum; K40.90 Unilateral inguinal hernia, without obstruction or gangrene, not specified as recurrent; K31.9 Disease of stomach and duodenum, unspecified; Z99.2 Dependence on renal dialysis; K29.70 Gastritis, unspecified, without bleeding
CPT/HCPCS: 36415; 36430; 36511; 71045-TC-FY; 74174-TC; 76705-TC; 80048; 80053; 82272; 82330; 82436; 82550; 82553; 83605; 83690; 83735; 83930; 83935; 84100; 84133; 84300; 84484; 85025; 85027; 85384; 85610; 85730; 86078; 86803; 86850; 86900; 86901; 86922; 87040; 87045; 87046; 87177; 87186; 87205; 87209; 87324; 87340; 87449; 93005; 93010; 99285-25; J0885; P9017; P9034; P9038; P9058; Q9967

== ENCOUNTER 2019-12-29 23:03 | Inpatient (IN) | payer OTHER ==
[2019-12-29] MEDS ORDERED: OCTREOTIDE ACETATE 50 MCG/1 ML - 1 ML VIAL IVPUSH ONE (23:33)
[2019-12-29] MEDS ORDERED: PANTOPRAZOLE SODIUM 40 MG VIAL IVPUSH ONE (23:33)
[2019-12-29] MEDS ORDERED: OCTREOTIDE ACETATE 200 MCG, OCTREOTIDE ACETATE 1,000 MCG in DEXTROSE 5%-WATER - 496 ML IVPB SCH (23:45)
[2019-12-29] MEDS ORDERED: THIAMINE HCL 200 MG/2 ML VIAL IVPB ONE (23:49)
--- NOTE | 2019-12-29 23:50 | PDOC ---
History of Present Illness - General Chief Complaint: Pain Stated Complaint: POSSIBLE GI BLEED Time Seen by Provider: 12/29/19 23:19 History Source: Patient Exam Limitations: No Limitations - History of Present Illness Initial Comments: 12/29/19 23:51 49 yo male PMH HTN, HTn, HLD, ESRD (TTS, last dialysis yesterday, reports full session) cirrhosis secondary to ETOH abuse s/p TIPS, depression, multiple upper GI bleeds requiring esophageal varices banding presents to the ED for 3 days of dark stools, periumbilical abdominal pain, generalized weakness and 2 episodes of NB/NB vomiting. Pt on the renal and liver transplant list, all Doctors are through [facility]. Abdominal pain is farideh umbilical, mild, described as sharp and non radiating, similar in quality and intensity to past abdominal pain during Denies F/C/N/V Past History - Past Medical History Allergies/Adverse Reactions: Allergies Allergy/AdvReac Type Severity Reaction Status Date / Time piperacillin Allergy Severe Swelling Verified 12/30/19 06:43 sertraline [From Zoloft] Allergy Severe Difficulty Verified 12/30/19 06:43 Breathing shellfish derived Allergy Severe Swelling Verified 12/30/19 06:43 latex Allergy Mild Rash Verified 12/30/19 06:43 Home Medications: Ambulatory Orders Amlodipine Besylate 10 mg PO DAILY 12/03/19 Calcitriol [Rocaltrol -] 0.25 mcg PO WEEKLY 12/03/19 Ferric Citrate [Auryxia] 420 mg PO TID 12/03/19 Fluoxetine HCl 40 mg PO DAILY 12/03/19 Furosemide 80 mg PO UTDICT 12/03/19 Gabapentin 300 mg PO HS 12/03/19 Levothyroxine [Synthroid -] 50 mcg PO DAILY 12/03/19 Lisinopril 10 mg PO DAILY 12/03/19 Omeprazole 40 mg PO DAILY 12/03/19 Rifaximin [Xifaxan] 550 mg PO BID 12/03/19 levETIRAcetam [Keppra -] 500 mg PO BID 12/03/19 Anemia: Yes Asthma: No Cancer: No Cardiac Disorders: No CVA: No COPD: No CHF: No Dementia: No Diabetes: Yes Dialysis: Yes GI Disorders: Yes (cirrhosis etoh abuse) Disorders: No HTN: Yes Hypercholesterolemia: No Kidney Stones: No Liver Disease: Yes (CIRRHOSIS OF LIVER) Psychiatric Problems: Yes (DEPRESSION, ANXEITY) Seizures: Yes Thyroid Disease: No - Surgical History Abdominal Surgery: No Appendectomy: No Cardiac Surgery: No Cholecystectomy: No Lung Surgery: No Neurologic Surgery: No Orthopedic Surgery: Yes (right shoulder due to dislocation 6 years ago) - Reproductive History Testicular Surgery: No - Immunization History Immunization Up to Date: Yes - Psycho Social/Smoking Cessation Hx Smoking Status: No Smoking History: Current some day smoker Have you smoked in the past 12 months: Yes Number of Cigarettes Smoked Daily: 4 If you are a former smoker, when did you quit?: 2010 Cigars Per Day: 0 Information on smoking cessation initiated: Yes 'Breaking Loose' booklet given: 02/22/18 Hx Alcohol Use: Yes Drug/Substance Use Hx: No Substance Use Type: None Hx Substance Use Treatment: Yes (ALCOHOL REHAB) *Physical Exam - Vital Signs Last Vital Signs Temp Pulse Resp BP Pulse Ox 97.8 F 80 18 95/46 L 100 12/29/19 23:07 12/29/19 23:07 12/29/19 23:07 12/29/19 23:07 12/29/19 23:07 ED Treatment Course - LABORATORY CBC & Chemistry Diagram: 12/30/19 04:30 12/30/19 00:00 - RADIOLOGY Radiology Studies Ordered: Category Date Time Status CHEST X-RAY PORTABLE* [RAD] Stat Radiology 12/29/19 23:31 Ordered Medical Decision Making - Medical Decision Making 12/30/19 02:54 49 yo male PMH HTN, HTn, HLD, ESRD (TTS, last dialysis yesterday, reports full session) cirrhosis secondary to ETOH abuse s/p TIPS, depression, multiple upper GI bleeds requiring esophageal varices banding presents to the ED for 3 days of dark stools, periumbilical abdominal pain, generalized weakness and 2 episodes of NB/NB vomiting. Pt on the renal and liver transplant list, all Doctors are through [facility]. Abdominal pain is farideh umbilical, mild, described as sharp and non radiating, similar in quality and intensity to past abdominal pain during Denies F/C/N/V Vitals show BP 95 systolic however, I have repeated it in on my initial evaluation, BP 117 systolic (unable to document vitals officially in the computer) Vitals otherwise normal Pt likely having upper GI bleed, possible varaciel, labs done including lactate , ammonia, trop, CBC, CMP, type and screen Pt given octretide, protonix, Levoq (pen allergic states severe swelling) for varacal bleed prophylaxis Fecal occult positive Pt appears withdrawn stating he would like to leave on multiple occasions. Pt admits to hx of depression, not taking medications (prozac) and states "nothing has been done for me, no body ever helps me, let me go ". When asked if patient is suicidal or if he has a plan to hurt himself he states "do you think I am stupid. I would not admit that to you" Placed on 1:1 Labs show stable H/H will repeat CBC and admit due to positive stool occult along with pending psych eval Pt accepted for tele admission. IM team will contact Psych for eval during hospital stay (discussed with Dr. Heriberto Villafuerte) Discharge - Discharge Information Problems reviewed: Yes Clinical Impression/Diagnosis: Upper GI bleeding Condition: Stable - Admission Yes - Follow up/Referral - Patient Discharge Instructions - Post Discharge Activity
[2019-12-30] MEDS ORDERED: FOLIC ACID 1 MG TABLET (FP) PO ONE (00:02)
[2019-12-30] MEDS ORDERED: LACTATED RINGERS SOLUTION 1,000 ML/1,000 ML INFUS.BAG IV STA (00:03)
[2019-12-30] MEDS ORDERED: PANTOPRAZOLE SODIUM 40 MG VIAL ONE (00:25)
[2019-12-30] MEDS ORDERED: THIAMINE HCL 200 MG/2 ML VIAL ONE (00:25)
[2019-12-30] MEDS ORDERED: OCTREOTIDE ACETATE 100 MCG/1 ML ONE (00:26)
--- NOTE | 2019-12-30 00:36 | PDOC ---
Documentation entered by Devika Cummings SCRIBE, acting as scribe for Raeann Del Angel MD. Raeann Del Angel MD: This documentation has been prepared by the jonathanibe, Devika Cummings SCRIBE, under my direction and personally reviewed by me in its entirety. I confirm that the documentation accurately reflects all work, treatment, procedures, and medical decision making performed by me. Attending Attestation - Resident Resident Name: Luis Carlos Kumar - ED Attending Attestation I have performed the following: I have examined & evaluated the patient, The case was reviewed & discussed with the resident, I agree w/resident's findings & plan, Exceptions are as noted - HPI HPI: 12/29/19 23:32 The patient is a 49-year-old male with a past medical history significant for HTN, HLD, ESRD (Monday, , and Monday, last HD on 12/28 full session) who presents to the emergency department with melena. The patient presents with three days of dark stool, associated with weakness, mid-abdominal pain around the belly button. The patient reports the symptoms are similar to prior episodes of GI bleeds. Denies vomiting. The patient is pending Kidney and Liver transplant at [facility]. Pt is extremely avoidant on evaluation, does not make eye contact, is tearful. He repeatedly tries to leave the emergency department stating that "nothing is ever fixed" and "What is the point of living anymore?" WHen asked if he wants to kill himself re shrugs and replied that he does not care if he lives anymore. Endorses noncompliance w/ antidepressants. Denies active suicide plan. Allergies: Piperacillin, sertraline, shellfish and latex. Social history: Former heavy drinker, occasional tobacco use and no reported use of recreational drugs. PCP: Dr. Meek GI: Dr. Luna 12/30/19 00:32 - Physicial Exam PE: 12/30/19 00:31 NAD RRR CTABL soft, epig ttp, no guarding, no rebound, no flud wave A&O x 3 mood appears depressed, pt is avoidant, no eye contact, tearful. - Medical Decision Making 12/30/19 00:34 49yoM w/ renal and liver failure, pending liver and renal transplants at [facility], multiple prior UGIB presents w/ 3d of melena, epig pain, progressive weakness, difficulty tolerating PO c/w prior episode of GIB. On exam he is repeatedly trying to leave the hospital, is clearly depressed and avoidance and is expressing suicidality. - pt placed on 1:1 maximum observation for SI. - labs - ekg -> pt refused - CXR -> pt refused - octreotide and ppi bolus and drips - levaquin (pt pcn allergic, cannot get CTX for ppx) - ivf, thiamine folate - PRBC PRN hgb < 7 - admit
[2019-12-30 00:53] LABS: VENOUS PC02 66.9 mmHg (38-52); VENOUS PH 7.24 (7.31-7.41); VENOUS PO2 < 49 mmHg (28-48)
[2019-12-30] MEDS ORDERED: ONDANSETRON 4 MG/2 ML VIAL ONE (00:56)
[2019-12-30 00:59] LABS: BASO % 0.9 % (0-2.0); EOS % 22.2 % (0-4.5); HEMATOCRIT 30.3 % (35.4-49); HEMOGLOBIN 10.1 GM/dL (11.7-16.9); INR 1.08 (0.83-1.09); LYMPH % 16.3 % (8-40); MCH 31.7 pg (25.7-33.7); MCHC 33.3 g/dl (32.0-35.9); MEAN PLT VOLUME 9.9 fl (7.5-11.1); MONO % 7.8 % (3.8-10.2); NEUT % 52.8 % (42.8-82.8); PLATELET COUNT 75 K/MM3 (134-434); PROTHROMBIN TIME (PATIENT) 12.8 SEC (9.7-13.0); RBC 3.19 M/mm3 (4.00-5.60); RDW 17.9 % (11.9-15.9); WHITE BLOOD COUNT 5.3 K/mm3 (4.0-10.0)
[2019-12-30] MEDS ORDERED: METOCLOPRAMIDE HCL INJECTION 10 MG/2 ML VIAL IVPUSH ONE (00:59)
[2019-12-30 01:09] LABS: ALBUMIN 3.2 g/dl (3.4-5.0); BILIRUBIN,TOTAL 0.6 mg/dL (0.2-1); BLOOD UREA NITROGEN 28.2 mg/dL (7-18); CALCIUM 7.8 mg/dL (8.5-10.1); CREATININE 6.2 mg/dL (0.55-1.3); POTASSIUM 3.8 mmol/L (3.5-5.1); TOT PROT 6.6 g/dl (6.4-8.2)
[2019-12-30] MEDS ORDERED: FOLIC ACID 1 MG TABLET (FP) ONE (01:16)
[2019-12-30] MEDS ORDERED: METOCLOPRAMIDE HCL INJECTION 10 MG/2 ML VIAL ONE (01:16)
[2019-12-30] MEDS: PANTOPRAZOLE SODIUM 80 MG in SODIUM CHLORIDE 100 ML IVPB SCH ×2 (03:27→10:04)
[2019-12-30 04:50] LABS: BASO % 0.9 % (0-2.0); EOS % 23.3 % (0-4.5); HEMATOCRIT 28.6 % (35.4-49); HEMOGLOBIN 9.5 GM/dL (11.7-16.9); LYMPH % 18.8 % (8-40); MCH 31.8 pg (25.7-33.7); MCHC 33.4 g/dl (32.0-35.9); MEAN CELL VOLUME 95.3 fl (80-96); MEAN PLT VOLUME 10.4 fl (7.5-11.1); PLATELET COUNT 68 K/MM3 (134-434); RDW 17.5 % (11.9-15.9); WHITE BLOOD COUNT 4.4 K/mm3 (4.0-10.0)
--- NOTE | 2019-12-30 05:03 | PN ---
Teaching Attending Note Name of Resident: Santi Villafuerte ATTENDING PHYSICIAN STATEMENT I saw and evaluated the patient. I reviewed the resident's note and discussed the case with the resident. I agree with the resident's findings and plan as documented. SUBJECTIVE: Patient is a 49-year-old man with a PMH of HTN, HLD, ESRD (Monday, , and Monday, last HD on 12/28 full session), Liver failure due to ?alcoholic liver cirrhosis, Esophageal varices banding, TIPS, Depression and Multiple bouts of GI bleeding presenting to the ER with melena. Has with three days of dark stool, associated with weakness, mid-abdominal pain around the belly button. The patient reports the symptoms are similar to prior episodes of GI bleeds. Vomiting clear liquids twice. The patient is awaiting Kidney and Liver transplant at [facility]. Patient on evaluation by ER staff was extremely avoidant on evaluation and tearful. Repeatedly tried to leave the ER stating that "nothing is ever fixed" and "What is the point of living anymore?" When asked if he wants to kill himself re emaugs and replied that he does not care if he lives anymore. Endorses adherence with antidepressants. Denies active suicide plan. Former heavy drinker, occasional tobacco use and no reported use of recreational drugs. Patient placed on 1:1 maximum observation for SI in the ER. Refused EKG and CXR. Started on Octreotide, Protonix and Levofloxacin in the ER. No sick contacts or recent travels. OBJECTIVE: Alert Vital Signs Period Temp Pulse Resp BP Sys/Horton Pulse Ox Last 24 Hr 97.8 F 80-85 18-18 95-113/46-57 99-100 HEENT: No Jaundice, eye redness or discharge, PERRLA, EOMI. Normocephalic, atraumatic. External ears are normal and hearing is grossly intact. No nasal discharge. Neck: Supple, nontender. No palpable adenopathy or thyromegaly. No JVD Chest: Good effort. Clear to auscultation and percussion. Heart: Regular. No S3, rub or murmur Abdomen: Not distended, soft, nontender and no HSM. No rebound or guarding. Normal bowel sounds. Ext: Peripheral pulses intact. No leg edema. Skin: Warm and dry. No petechiae, rash or ecchymosis. Neuro: Alert. Oriented x3. CN 2-12 grossly intact. Sensation grossly intact in all four extremities and DTR are symmetric. Psych: Appropriate mood and affect. Good insight. Current Medications Generic Name Dose Route Start Last Admin Trade Name Alexx PRN Reason Stop Dose Admin Pantoprazole Sodium 80 mg/ 100 mls @ 10 mls/hr 12/29/19 23:45 12/30/19 03:27 Sodium Chloride IVPB 01/01/20 23:33 10 mls/hr Q10H DEV Administration 8 MG/HR Octreotide Acetate 200 mcg/ 500 mls @ 20.833 mls/hr 12/29/19 23:45 12/30/19 00:50 Octreotide Acetate 1,000 mcg/ IVPB 20.833 mls/hr Dextrose ASDIR DEV Administration Home Medications Medication Instructions Recorded Amlodipine Besylate 10 mg PO DAILY 12/03/19 Calcitriol [Rocaltrol -] 0.25 mcg PO WEEKLY 12/03/19 Ferric Citrate [Auryxia] 420 mg PO TID 12/03/19 Fluoxetine HCl 40 mg PO DAILY 12/03/19 Furosemide 80 mg PO UTDICT 12/03/19 Gabapentin 300 mg PO HS 12/03/19 Levothyroxine [Synthroid -] 50 mcg PO DAILY 12/03/19 Lisinopril 10 mg PO DAILY 12/03/19 Omeprazole 40 mg PO DAILY 12/03/19 Rifaximin [Xifaxan] 550 mg PO BID 12/03/19 levETIRAcetam [Keppra -] 500 mg PO BID 12/03/19 Abnormal Lab Results 12/30/19 12/30/19 12/30/19 00:00 00:00 00:00 RBC 3.19 L Hgb 10.1 L Hct 30.3 L RDW 17.9 H Plt Count 75 L D Eosinophils % 22.2 H* D VBG pH POC VBG pCO2 POC VBG pO2 VBG O2 Sat (Connie) BUN 28.2 H Creatinine 6.2 H Calcium 7.8 L Alkaline Phosphatase 158 H Ammonia 49.80 H Albumin 3.2 L 12/30/19 12/30/19 00:00 04:30 RBC 3.00 L Hgb 9.5 L Hct 28.6 L RDW 17.5 H Plt Count 68 L Eosinophils % 23.3 H* VBG pH 7.24 L POC VBG pCO2 66.9 H POC VBG pO2 < 49 H VBG O2 Sat (Connie) 24.0 L BUN Creatinine Calcium Alkaline Phosphatase Ammonia Albumin ASSESSMENT AND PLAN: 1. GI bleeding - Precise bleeding site unclear. Patient refusing further testing. Stool hemoccult test is positive. Started on IV LR, Octreotide and Protonix. Will send blood for type and cross and transfuse when clinically indicated. No indication to continue antibiotics at this time. Low platelet count due to liver disease - will monitor daily. EKG shows NSR with premature PACs and prolonged QTc. Consult GI and ID. Continue 1:1 monitoring and consult Psychiatry. Will continue comprehensive care for all of patients comorbid conditions. 2. Hypoalbuminemia - Possibly due to combined effects of malnutrition and inflammation associated with comorbid chronic conditions. Will ensure adequate dietary protein intake and also consult manager privacy. 3. Tobacco Use Counseled on risks associated with tobacco use. We will provide patient all the necessary assistance to facilitate smoking cessation and prescribe Nicotine patch. 4. CKD - Will consult nephrology for ESRD care. 5. Hypertension - Restart suitable outpatient antihypertensive drugs when clinically appropriate. Revise regimen to ensure [id number] excellent BP control and counselor camp patient on the injurious effects of uncontrolled hypertension. Nonpharmacologic measures to control hypertension like weight loss , salt restriction and exercise discussed. Importance of adherence to treatment regimen and attainment of normotension emphasized. 6. DVT prophylaxis - SCD, Early ambulation 7. Advance directives - Full code
[2019-12-30 05:49] LABS: ANISOCYTOSIS 1+; MACROCYTOSIS 0; PLATELET ESTIMATE DECREASED
--- NOTE | 2019-12-30 06:24 | HP ---
CHIEF COMPLAINT: 3 days of dark stools, 2 episodes of vomiting yesterday, and abdominal pain that began earlier today. PCP: Dr. Chan HISTORY OF PRESENT ILLNESS: This is a 49 year old male with PMH significant for HTN, HLD, Alcoholic cirrhosis (s/p TIPS 10 years ago), multiple GI bleeds, amd ESRD. He presented to the ER with complaints of 3 days of dark stools, 2 episodes of vomiting yesterday, and abdominal pain that began earlier today. For the past 3 days, he has been having over 10 BMs per day, small in amount and hard in consistency. The first episode 3 days ago was associated with a few drops of pink blood noticed on the toilet paper after wiping. He has not noticed any blood since then, but the stools have been darker than usual. He also endorses nausea with 2 episodes of vomiting yesterday. morning, NBNB, watery in consistency. Earlier today around evening time he developed abdominal pain in his RLQ. It was sudden in onset, 4/10 in intensity, aching in quality, constant for a few hours until it stopped shortly after presenting to the ER, non-radiating, with no aggravating or alleviating factors. His last BM was in the morning before the pain began, and he has not had any BMs since the pain began and ended. He has had a decreased appetite for the past few days, and today ate eggs and cheese in the morning. While in the ER, he expressed hopelessness at his prognosis, and admitted suicidal ideation to one physician. He also endorses some light headedness, but denies any fevers, chills, SOB, chest pain, palpitations, diarrhea, dysuria, urgency, or hematuria. He states that he has had several GI bleeds in the past, and has undergone banding as well as a TIPS procedure (over 10 years ago). He was last admitted to [facility] in Nov 2019. CTAP was done at the time, along with endoscopy, and no source was found. CTAP showed distended GB with cholelithiasis and a right sided pleural effusion. He was transferred to [facility] for further management and is currently awaiting hepatic/renal transplant. ER course was notable for: (1) H/H 10.1/30.3 (2) Octreotide, Protonix drips started (3) Bun/Cr 28.2/6.2 Recent Travel: denies PAST MEDICAL HISTORY: As listed in HPI PAST SURGICAL HISTORY: As listed in HPI Social History: Smoking: occasionally, would not quantify Alcohol: last drink was 1 year ago Drugs: denies Allergies piperacillin Allergy (Severe, Verified 12/03/19 11:53) Swelling sertraline [From Zoloft] Allergy (Severe, Verified 12/03/19 11:53) Difficulty Breathing shellfish derived Allergy (Severe, Verified 12/03/19 11:53) Swelling latex Allergy (Mild, Verified 12/03/19 11:53) Rash HOME MEDICATIONS: Home Medications Medication Instructions Recorded Amlodipine Besylate 10 mg PO DAILY 12/03/19 Calcitriol [Rocaltrol -] 0.25 mcg PO WEEKLY 12/03/19 Ferric Citrate [Auryxia] 420 mg PO TID 12/03/19 Fluoxetine HCl 40 mg PO DAILY 12/03/19 Furosemide 80 mg PO UTDICT 12/03/19 Gabapentin 300 mg PO HS 12/03/19 Levothyroxine [Synthroid -] 50 mcg PO DAILY 12/03/19 Lisinopril 10 mg PO DAILY 12/03/19 Omeprazole 40 mg PO DAILY 12/03/19 Rifaximin [Xifaxan] 550 mg PO BID 12/03/19 levETIRAcetam [Keppra -] 500 mg PO BID 12/03/19 REVIEW OF SYSTEMS CONSTITUTIONAL: Absent: fever, chills, diaphoresis, generalized weakness, malaise, loss of appetite, weight change HEENT: Absent: rhinorrhea, nasal congestion, throat pain, throat swelling, difficulty swallowing, mouth swelling, ear pain, eye pain, visual changes CARDIOVASCULAR: Absent: chest pain, syncope, palpitations, irregular heart rate, lightheadedness , peripheral edema RESPIRATORY: Absent: cough, shortness of breath, dyspnea with exertion, orthopnea, wheezing, stridor, hemoptysis GASTROINTESTINAL: constipation Absent: abdominal pain, abdominal distension, nausea, vomiting, diarrhea, constipation, melena, hematochezia GENITOURINARY: Absent: dysuria, frequency, urgency, hesitancy, hematuria, flank pain, genital pain MUSCULOSKELETAL: Absent: myalgia, arthralgia, joint swelling, back pain, neck pain SKIN: Absent: rash, itching, pallor HEMATOLOGIC/IMMUNOLOGIC: Absent: easy bleeding, easy bruising, lymphadenopathy, frequent infections ENDOCRINE: Absent: unexplained weight gain, unexplained weight loss, heat intolerance, cold intolerance NEUROLOGIC: Absent: headache, focal weakness or paresthesias, dizziness, unsteady gait, seizure, mental status changes, bladder or bowel incontinence PSYCHIATRIC: Absent: anxiety, depression, suicidal or homicidal ideation, hallucinations. PHYSICAL EXAMINATION Vital Signs - 24 hr 12/29/19 12/30/19 12/30/19 23:07 02:44 05:49 Temperature 97.8 F Pulse Rate 80 Pulse Rate [ 85 73 Right] Respiratory 18 18 15 Rate Blood Pressure 95/46 L Blood Pressure 113/57 L 110/63 [Left Arm] O2 Sat by Pulse 100 99 97 Oximetry (%) GENERAL: AOx3, patient in low mood, refuses physical examination ABDOMEN: Rectal exam performed by ER resident, discussed findings with him. States tone was normal, no stool in vault, no hemorrhoids internal or external, scant stool on glove, FOBT sent Laboratory Results - last 24 hr 12/30/19 12/30/19 12/30/19 00:00 00:00 00:00 WBC 5.3 RBC 3.19 L Hgb 10.1 L Hct 30.3 L MCV 95.0 MCH 31.7 MCHC 33.3 RDW 17.9 H Plt Count 75 L D MPV 9.9 Absolute Neuts (auto) 2.8 Neutrophils % 52.8 Neutrophils % (Manual) 50.5 D Band Neutrophils % 0.9 Lymphocytes % 16.3 Lymphocytes % (Manual) 19.3 D Monocytes % 7.8 Monocytes % (Manual) 5 Eosinophils % 22.2 H* D Eosinophils % (Manual) 23.8 H D Basophils % 0.9 Basophils % (Manual) 0.9 Myelocytes % (Man) 0 Promyelocytes % (Man) 0 Blast Cells % (Manual) 0 D Nucleated RBC % 0 Metamyelocytes 0 Hypochromia 0 Platelet Estimate Decreased Polychromasia 0 Poikilocytosis 1+ Anisocytosis 1+ Microcytosis 1+ Macrocytosis 0 PT with INR INR VBG pH POC VBG pCO2 POC VBG pO2 VBG HCO3 VBG O2 Sat (Connie) VBG Base Excess Sodium Potassium Chloride Carbon Dioxide Anion Gap BUN Creatinine Est GFR (CKD-EPI)AfAm Est GFR (CKD-EPI)NonAf Random Glucose Lactic Acid Calcium Total Bilirubin AST ALT Alkaline Phosphatase Ammonia 49.80 H Creatine Kinase 72 Troponin I < 0.02 Total Protein Albumin Stool Occult Blood Blood Type Antibody Screen 12/30/19 12/30/19 12/30/19 00:00 00:00 00:00 WBC RBC Hgb Hct MCV MCH MCHC RDW Plt Count MPV Absolute Neuts (auto) Neutrophils % Neutrophils % (Manual) Band Neutrophils % Lymphocytes % Lymphocytes % (Manual) Monocytes % Monocytes % (Manual) Eosinophils % Eosinophils % (Manual) Basophils % Basophils % (Manual) Myelocytes % (Man) Promyelocytes % (Man) Blast Cells % (Manual) Nucleated RBC % Metamyelocytes Hypochromia Platelet Estimate Polychromasia Poikilocytosis Anisocytosis Microcytosis Macrocytosis PT with INR 12.80 INR 1.08 VBG pH POC VBG pCO2 POC VBG pO2 VBG HCO3 VBG O2 Sat (Connie) VBG Base Excess Sodium 137 Potassium 3.8 Chloride 104 Carbon Dioxide 22 Anion Gap 10 BUN 28.2 H Creatinine 6.2 H Est GFR (CKD-EPI)AfAm 11.39 Est GFR (CKD-EPI)NonAf 9.83 Random Glucose 79 Lactic Acid 1.4 Calcium 7.8 L Total Bilirubin 0.6 AST 15 ALT 15 Alkaline Phosphatase 158 H Ammonia Creatine Kinase Troponin I Total Protein 6.6 Albumin 3.2 L Stool Occult Blood Blood Type Antibody Screen 12/30/19 12/30/19 12/30/19 00:00 00:00 02:10 WBC RBC Hgb Hct MCV MCH MCHC RDW Plt Count MPV Absolute Neuts (auto) Neutrophils % Neutrophils % (Manual) Band Neutrophils % Lymphocytes % Lymphocytes % (Manual) Monocytes % Monocytes % (Manual) Eosinophils % Eosinophils % (Manual) Basophils % Basophils % (Manual) Myelocytes % (Man) Promyelocytes % (Man) Blast Cells % (Manual) Nucleated RBC % Metamyelocytes Hypochromia Platelet Estimate Polychromasia Poikilocytosis Anisocytosis Microcytosis Macrocytosis PT with INR INR VBG pH 7.24 L POC VBG pCO2 66.9 H POC VBG pO2 < 49 H VBG HCO3 27.4 VBG O2 Sat (Connie) 24.0 L VBG Base Excess -1.7 Sodium Potassium Chloride Carbon Dioxide Anion Gap BUN Creatinine Est GFR (CKD-EPI)AfAm Est GFR (CKD-EPI)NonAf Random Glucose Lactic Acid Calcium Total Bilirubin AST ALT Alkaline Phosphatase Ammonia Creatine Kinase Troponin I Total Protein Albumin Stool Occult Blood Positive Blood Type B POSITIVE Antibody Screen Negative 12/30/19 04:30 WBC 4.4 RBC 3.00 L Hgb 9.5 L Hct 28.6 L MCV 95.3 MCH 31.8 MCHC 33.4 RDW 17.5 H Plt Count 68 L MPV 10.4 Absolute Neuts (auto) 2.2 Neutrophils % 50.0 Neutrophils % (Manual) No Result Required. Band Neutrophils % Lymphocytes % 18.8 Lymphocytes % (Manual) Monocytes % 7.0 Monocytes % (Manual) Eosinophils % 23.3 H* Eosinophils % (Manual) Basophils % 0.9 Basophils % (Manual) Myelocytes % (Man) Promyelocytes % (Man) Blast Cells % (Manual) Nucleated RBC % 0 Metamyelocytes Hypochromia Platelet Estimate Polychromasia Poikilocytosis Anisocytosis Microcytosis Macrocytosis PT with INR INR VBG pH POC VBG pCO2 POC VBG pO2 VBG HCO3 VBG O2 Sat (Connie) VBG Base Excess Sodium Potassium Chloride Carbon Dioxide Anion Gap BUN Creatinine Est GFR (CKD-EPI)AfAm Est GFR (CKD-EPI)NonAf Random Glucose Lactic Acid Calcium Total Bilirubin AST ALT Alkaline Phosphatase Ammonia Creatine Kinase Troponin I Total Protein Albumin Stool Occult Blood Blood Type Antibody Screen ASSESSMENT/PLAN: This is a 49 year old male with PMH significant for HTN, HLD, Alcoholic cirrhosis (s/p TIPS 10 years ago), multiple GI bleeds, amd ESRD. He presented to the ER with complaints of 3 days of dark stools, 2 episodes of vomiting yesterday, and abdominal pain that began earlier today. #GI Bleed - FOBT positive, likely related to cirrhosis - Child Lozada grade B, 7 pts, 30% farideh operative mortality - MELD Na 22, 7-10% 90 d mortality - Isak zheng under 32, no steroid therapy indicated at this time - Continue Octreotide drip - Continue Protonix drip - CT AP wo contrast (CKD) to locate source of bleed. Pt refused all imaging when in ER - GI consult placed - Elevated ammonia 49.8, no clinical encephalopathy noted so no need to start lactulose - Would not continue Levofloxacin, no fever, hemodynamic instability, abdominal pain has resolved, no signs of SBP #Elevated ALP - ALP 158, AST ALT normal - CT AP on previous admission showed cholelithiasis with GB distension - Pt denies abdominal pain/vomiting related to eating, RUQ tenderness, pruritis - Will continue to monitor and await results from CT AP #CKD/GRABIEL - 28.2/6.2, worsening Cr compared to last admission - Pt on transplant list, may consider transfer to [facility] - Continue Dialysis (, [place], Sat) - Renal consulted #Anemia - Type and screen ordered - Would transfuse if Hg goes under 8 - IV Venofer if Fe is low #Eosinophilia - 22%, currently unexplained. - Link between PBC and eosinophilia has been reported, patient has elevated ALP but denies any pruritis #Thrombocytopenia - Likely 2/2 cirrhosis, will continue to monitor - May consider platelet transfer if <50k with active bleeding #Depressed mood - Psych consult placed - 1:1 observation #Hx of HTN - Resume home meds once confirmed #Hx of HLD - Resume home meds once confirmed #FEN - IV LR started - Ca 7.8, adjusted for albumin 8.44, will continue to monitor - Albumin 3.2, likely 2/2 cirrhosis - NPO for now due to GI bleed #DVT - No chemical AC, SCDs for now Visit type - Emergency Visit Emergency Visit: Yes ED Registration Date: 12/30/19 Care time: The patient presented to the Emergency Department on the above date and was hospitalized for further evaluation of their emergent condition. - New Patient This patient is new to me today: Yes Date on this admission: 12/30/19 - Critical Care Critical Care patient: No ATTENDING PHYSICIAN STATEMENT I saw and evaluated the patient. I reviewed the resident's note and discussed the case with the resident. I agree with the resident's findings and plan as documented. SUBJECTIVE: OBJECTIVE: ASSESSMENT AND PLAN:
[2019-12-30] MEDS ORDERED: LACTATED RINGERS SOLUTION 1,000 ML/1,000 ML INFUS.BAG IV SCH (07:45)
[2019-12-30] MEDS ORDERED: CALCIUM GLUCONATE 10% - 1,000 MG/10 ML VIAL IVPB ONE (08:15)
--- NOTE | 2019-12-30 09:11 | EKG ---
Test Reason : Blood Pressure : / mmHG Vent. Rate : 072 BPM Atrial Rate : 072 BPM P-R Int : 170 ms QRS Dur : 094 ms QT Int : 462 ms P-R-T Axes : 028 033 066 degrees QTc Int : 505 ms SINUS RHYTHM WITH WITH SINUS ARRHYTHMIA PROLONGED QT ABNORMAL ECG WHEN COMPARED WITH ECG OF NO SIGNIFICANT CHANGE IS FOUND Confirmed by Clark Ndiaye ([id number]) on 12/30/2019 9:10:57 AM Referred By: Confirmed By:Clark Ndiaye
[2019-12-30] MEDS ORDERED: CALCIUM GLUCONATE 10% - 1,000 MG/10 ML VIAL ONE (10:00)
--- NOTE | 2019-12-30 10:16 | PN ---
Progress Note, Physician - Current Medication List Current Medications: Active Medications Pantoprazole Sodium 80 mg/ (Sodium Chloride) 100 mls @ 10 mls/hr IVPB Q10H DEV Stop: 01/01/20 23:33 Last Admin: 12/30/19 10:04 Dose: 10 mls/hr Octreotide Acetate 200 mcg/Octreotide Acetate 1,000 mcg/Dextrose 500 mls @ 20.833 mls/hr IVPB ASDIR DEV Last Admin: 12/30/19 00:50 Dose: 20.833 mls/hr Lactated Ringer's (Lactated Ringers Solution) 1,000 ml in 1,000 mls @ 75 mls/ hr IV ASDIR DEV Last Admin: 12/30/19 09:08 Dose: 75 mls/hr - Objective Vital Signs: Vital Signs Temperature 97.8 F 12/30/19 07:24 Pulse Rate 71 12/30/19 07:24 Respiratory Rate 18 12/30/19 07:24 Blood Pressure 114/63 12/30/19 07:24 O2 Sat by Pulse Oximetry (%) 100 12/30/19 10:08 Labs: CBC, BMP 12/30/19 04:30 12/30/19 00:00 INR, PTT INR 1.08 (0.83-1.09) 12/30/19 00:00 Problem List - Problems (1) Upper GI bleeding Assessment/Plan: - h/oAlcoholic cirrhosis (s/p TIPS 10 years ago), multiple GI bleeds - FOBT positive - Continue Octreotide drip - Continue Protonix drip - CT AP wo contrast (CKD) to locate source of bleed. Pt refused all imaging when in ER - GI consult Code(s): K92.2 - GASTROINTESTINAL HEMORRHAGE, UNSPECIFIED (2) Anemia Assessment/Plan: -monitor cbc - Type and screen ordered - Would transfuse if Hg goes under 8 - IV Venofer if Fe is low Code(s): D64.9 - ANEMIA, UNSPECIFIED (3) CKD (chronic kidney disease) Assessment/Plan: - 28.2/6.2, worsening Cr compared to last admission - Pt on transplant list, may consider transfer to [facility] - Continue Dialysis (, [place], Mon) - Renal consulted Code(s): N18.9 - CHRONIC KIDNEY DISEASE, UNSPECIFIED (4) History of cirrhosis of liver Assessment/Plan: Elevated ammonia 49.8, no clinical encephalopathy noted so no need to start lactulose - ALP 158, AST ALT normal - CT AP on previous admission showed cholelithiasis with GB distension - Will continue to monitor and await results from CT AP Code(s): Z87.19 - PERSONAL HISTORY OF OTHER DISEASES OF THE DIGESTIVE SYSTEM (5) History of esophageal varices with bleeding Assessment/Plan: as above Code(s): Z87.19 - PERSONAL HISTORY OF OTHER DISEASES OF THE DIGESTIVE SYSTEM (6) Acute depression Assessment/Plan: - Psych consult placed - 1:1 observation Code(s): F32.9 - MAJOR DEPRESSIVE DISORDER, SINGLE EPISODE, UNSPECIFIED
[2019-12-30 10:22] LABS: HEMATOCRIT 30.7 % (35.4-49); HEMOGLOBIN 10.5 GM/dL (11.7-16.9); MCH 32.2 pg (25.7-33.7); MCHC 34.1 g/dl (32.0-35.9); MEAN CELL VOLUME 94.3 fl (80-96); MEAN PLT VOLUME 9.6 fl (7.5-11.1); PLATELET COUNT 62 K/MM3 (134-434); RBC 3.25 M/mm3 (4.00-5.60); RDW 17.9 % (11.9-15.9); WHITE BLOOD COUNT 3.4 K/mm3 (4.0-10.0)
[2019-12-30 11:27] LABS: ALBUMIN 3.1 g/dl (3.4-5.0); BILIRUBIN,TOTAL 0.7 mg/dL (0.2-1); BLOOD UREA NITROGEN 27.6 mg/dL (7-18); CALCIUM 7.8 mg/dL (8.5-10.1); CREATININE 6.7 mg/dL (0.55-1.3); POTASSIUM 4.5 mmol/L (3.5-5.1); TOT PROT 6.5 g/dl (6.4-8.2)
--- NOTE | 2019-12-30 15:49 | CON.GI ---
Consult Consult Specialty:: GI Referred by:: Medicine Reason for Consultation:: black stool - History of Present Illness Chief Complaint: black stool History of Present Illness: 49M with h/o ESRD on HD, h/o ETOH cirrhosis here for evaluation of recurrent black stool. Multiple recent evaluations including 08/2019 - EGD small esphageal ulcer, HP neg gastritis; colonoscopy with 1 TA and mild sigmoid diverticulosis Repeat EGD 11/2018 for black stool unremarkable Was then transferred to [facility] Patient reports at [facility] he had an EGD and colonoscopy that were unremarkable Black stool 3-4 days, but had a bm here that was brown today BMs have been formed, black, but not malodorous Denies abdominal pain Getting IV iron at HD - History Source History Provided By: Patient Limitations to Obtaining History: No Limitations - Past Medical History 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 fall after seizre or hypertensive hemorrhage) Cardio/Vascular: Yes: HTN, Hyperlipdemia Gastrointestinal: Yes: GI Bleed (multiple esophageal variceal bleed and banding before TIPS was placed at [facility]), Other (colon polyp removed by Dr De La Torre at [facility] ?) Hepatobiliary: Yes: Cirrhosis Renal/: Yes: Renal Inusuff, Hematuria, Hemodialysis Psych: Yes: Addictions (alcohol, previously cocaine and marijuana), Depression, Other (attempted suicide) Endocrine: Yes: Diabetes Mellitus - Past Surgical History Past Surgical History: Yes: Arthrosocopy (left knee), Colonoscopy, Upper Endoscopy - Alcohol/Substance Use Hx Alcohol Use: Yes History of Substance Use: reports: Cocaine (snorted), Marijuana - Smoking History Smoking history: Current some day smoker Have you smoked in the past 12 months: Yes Aproximately how many cigarettes per day: 4 If you are a former smoker, when did you quit?: 2010 - Social History Usual Living Arrangement: Alone ADL: Support Services 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 History of Recent Travel: No Home Medications - Allergies Allergies/Adverse Reactions: Allergies Allergy/AdvReac Type Severity Reaction Status Date / Time piperacillin Allergy Severe Swelling Verified 12/30/19 06:43 sertraline [From Zoloft] Allergy Severe Difficulty Verified 12/30/19 06:43 Breathing shellfish derived Allergy Severe Swelling Verified 12/30/19 06:43 latex Allergy Mild Rash Verified 12/30/19 06:43 - Home Medications Home Medications: Ambulatory Orders Amlodipine Besylate 10 mg PO DAILY 12/03/19 Calcitriol [Rocaltrol -] 0.25 mcg PO WEEKLY 12/03/19 Ferric Citrate [Auryxia] 420 mg PO TID 12/03/19 Fluoxetine HCl 40 mg PO DAILY 12/03/19 Furosemide 80 mg PO UTDICT 12/03/19 Gabapentin 300 mg PO HS 12/03/19 Levothyroxine [Synthroid -] 50 mcg PO DAILY 12/03/19 Lisinopril 10 mg PO DAILY 12/03/19 Omeprazole 40 mg PO DAILY 12/03/19 Rifaximin [Xifaxan] 550 mg PO BID 12/03/19 levETIRAcetam [Keppra -] 500 mg PO BID 12/03/19 Family Medical History Family History: Unremarkable Review of Systems - Review of Systems Constitutional: reports: No Symptoms Eyes: reports: No Symptoms HENT: reports: No Symptoms Neck: reports: No Symptoms Cardiovascular: reports: No Symptoms Respiratory: reports: No Symptoms Gastrointestinal: reports: Melena. denies: Abdominal Pain, Constipation, Diarrhea Genitourinary: reports: No Symptoms Breasts: reports: No Symptoms Reported Neurological: reports: No Symptoms Endocrine: reports: No Symptoms, Unexplained Weight Gain Hematology/Lymphatic: reports: No Symptoms Psychiatric: reports: Suicidal Physical Exam-GI Vital Signs: Vital Signs Temperature 97.8 F 12/30/19 07:24 Pulse Rate 78 12/30/19 10:15 Respiratory Rate 18 12/30/19 10:15 Blood Pressure 114/64 12/30/19 10:15 O2 Sat by Pulse Oximetry (%) 99 12/30/19 10:15 Constitutional: Yes: Well Nourished, No Distress Eyes: Yes: Conjunctiva Clear HENT: Yes: Atraumatic, Normocephalic Cardiovascular: Yes: Regular Rate and Rhythm Respiratory: Yes: CTA Bilaterally ...Palpate: Yes: Soft. No: Tenderness ...Rectal Exam: Yes: Other (no blood, stool, mass) Neurological: Yes: Alert, Oriented Psychiatric: Yes: Alert, Oriented Labs: CBC, BMP 12/30/19 10:00 12/30/19 10:00 INR, PTT INR 1.08 (0.83-1.09) 12/30/19 00:00 Hepatic Panel Total Bilirubin 0.7 mg/dL (0.2-1) 12/30/19 10:00 AST 16 U/L (15-37) 12/30/19 10:00 ALT 12 U/L (13-61) L 12/30/19 10:00 Alkaline Phosphatase 145 U/L (45-117) H 12/30/19 10:00 Albumin 3.1 g/dl (3.4-5.0) L 12/30/19 10:00 Imaging - Results Cat Scan: Report Reviewed Assessment/Plan Recurrent overt obscure GI bleeding - ? small bowel angioectasias vs small bowel varices No need for PPI drip Can continue octreotide for now Would touch base with [facility] neurodiagnostic technologist (Dr. De La Torre) to get scope reports from last month, and regarding if he wants to transfer patient for VCE Trend hgb Antibiotics for GI bleeding in cirrhotic
--- NOTE | 2019-12-30 17:20 | CONSULT ---
Consult Consult Specialty:: Nephrology Reason for Consultation:: ESRD - History of Present Illness Chief Complaint: black stool History of Present Illness: re Pt is a 49 year old male with esrd, htn, hld, alcoholic cirrhosi and gi bleed who presents to the ER with dark stool and vomiting. He has had multiple admissions for GI bleed. He denies shortness of breath. His last HD was on Monday. He denies chest pain or palpitations. 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 fall after seizre or hypertensive hemorrhage) Cardio/Vascular: Yes: HTN, Hyperlipdemia Gastrointestinal: Yes: GI Bleed (multiple esophageal variceal bleed and banding before TIPS was placed at [facility]), Other (colon polyp removed by Dr De La Torre at [facility] ?) Hepatobiliary: Yes: Cirrhosis Renal/: Yes: Renal Inusuff, Hematuria, Hemodialysis Psych: Yes: Addictions (alcohol, previously cocaine and marijuana), Depression, Other (attempted suicide) Endocrine: Yes: Diabetes Mellitus - Past Surgical History Past Surgical History: Yes: Arthrosocopy (left knee), Colonoscopy, Upper Endoscopy - Alcohol/Substance Use Hx Alcohol Use: Yes History of Substance Use: reports: Cocaine (snorted), Marijuana - Smoking History Smoking history: Current some day smoker Have you smoked in the past 12 months: Yes Aproximately how many cigarettes per day: 4 If you are a former smoker, when did you quit?: 2010 - Social History Usual Living Arrangement: Alone ADL: Support Services 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 History of Recent Travel: No Home Medications - Allergies Allergies/Adverse Reactions: Allergies Allergy/AdvReac Type Severity Reaction Status Date / Time piperacillin Allergy Severe Swelling Verified 12/30/19 06:43 sertraline [From Zoloft] Allergy Severe Difficulty Verified 12/30/19 06:43 Breathing shellfish derived Allergy Severe Swelling Verified 12/30/19 06:43 latex Allergy Mild Rash Verified 12/30/19 06:43 - Home Medications Home Medications: Ambulatory Orders Amlodipine Besylate 10 mg PO DAILY 12/03/19 Calcitriol [Rocaltrol -] 0.25 mcg PO WEEKLY 12/03/19 Ferric Citrate [Auryxia] 420 mg PO TID 12/03/19 Fluoxetine HCl 40 mg PO DAILY 12/03/19 Furosemide 80 mg PO UTDICT 12/03/19 Gabapentin 300 mg PO HS 12/03/19 Levothyroxine [Synthroid -] 50 mcg PO DAILY 12/03/19 Lisinopril 10 mg PO DAILY 12/03/19 Omeprazole 40 mg PO DAILY 12/03/19 Rifaximin [Xifaxan] 550 mg PO BID 12/03/19 levETIRAcetam [Keppra -] 500 mg PO BID 12/03/19 Family Medical History Family History: Denies Review of Systems - Review of Systems Constitutional: reports: Malaise Eyes: reports: No Symptoms HENT: reports: No Symptoms Neck: reports: No Symptoms Cardiovascular: reports: No Symptoms Respiratory: reports: No Symptoms Gastrointestinal: reports: Melena, Vomiting Genitourinary: reports: No Symptoms Musculoskeletal: reports: No Symptoms Integumentary: reports: No Symptoms Neurological: reports: No Symptoms Endocrine: reports: No Symptoms Hematology/Lymphatic: reports: No Symptoms Psychiatric: reports: No Symptoms Physical Exam Vital Signs: Vital Signs Temperature 97.8 F 12/30/19 16:00 Pulse Rate 81 12/30/19 16:00 Respiratory Rate 19 12/30/19 16:00 Blood Pressure 124/64 12/30/19 16:00 O2 Sat by Pulse Oximetry (%) 100 12/30/19 16:00 Constitutional: Yes: Calm HENT: Yes: Atraumatic Neck: Yes: Supple Cardiovascular: Yes: S1, S2 Respiratory: Yes: CTA Bilaterally Gastrointestinal: Yes: Soft Musculoskeletal: Yes: WNL Edema: No Neurological: Yes: Oriented Psychiatric: Yes: Oriented Labs: CBC, BMP 12/30/19 10:00 12/30/19 10:00 Imaging - Results Cat Scan: Report Reviewed Problem List - Problems (1) ESRD (end stage renal disease) Code(s): N18.6 - END STAGE RENAL DISEASE Assessment/Plan Current Medications Generic Name Dose Route Start Last Admin Trade Name Freq PRN Reason Stop Dose Admin Octreotide Acetate 200 mcg/ 500 mls @ 20.833 mls/hr 12/29/19 23:45 12/30/19 00:50 Octreotide Acetate 1,000 mcg/ IVPB 20.833 mls/hr Dextrose ASDIR DEV Administration Lactated Ringer's 1,000 ml in 1,000 mls @ 75 mls/hr 12/30/19 07:45 12/30/19 09:08 Lactated Ringers Solution IV 75 mls/hr ASDIR DEV Administration Impression 1. ESRD 2. htn 3. hx etoh abuse 4. liver cirrhosis with tips 5. anemia 6. melena Plan - HD tomorrow - repeat labs in am - monitor hg - caution with fluids - 3 45 180 abf 400 3 k bath
[2019-12-30] MEDS ORDERED: SODIUM CHLORIDE 250 ML IV PRN (17:21)
--- NOTE | 2019-12-30 18:43 | PN ---
Mental Health Exam - Mental Status Exam Alert and Oriented to: Time, Place, Person Cognitive Function: Grossly Intact Patient Appearance: Well Groomed Mood: Apprehensive, Hopeful Affect: Appropriate, Mood Congruent Patient Behavior: Guarded, Cooperative Speech Pattern: Clear Voice Loudness: Normal Thought Process: Intact, Goal Oriented Thought Disorder: Not Present Hallucinations: None Suicidal Ideation: None, Denies, No Plan (client denies wanting to harm self. ) Homicidal Ideation: None Insight/Judgement: Fair Sleep: Fair Appetite: Good Muscle strength/Tone: Normal Gait/Station: Deferred Additional Comments: This is a 49 yo male, seen in [facility] with staff 1;1 in attendance. He came to Er with a GI bleed, dark stools. Client made a statement to staff "whats point in living anymore?". Client denies making that statement at present. He is sitting up in bed, mood congruent, denies suicidal or homicidal ideations. Denies any perceptual disturbances. Client has a history of Major Depression, managed on Prozac for some months now. No past psychiatric admissions, not under a psychiatrist care. Client has alchol cirrohis, cocaine/ MJ history, smoker. Discontinue 1;1, related to joao YEH and hospitalist. Client has not ellington or suicidal ideation, is hopeful. continue Prozac 40mg. May follow as needed.
[2019-12-30] MEDS ORDERED: OCTREOTIDE ACETATE 200 MCG, OCTREOTIDE ACETATE 1,000 MCG in DEXTROSE 5%-WATER - 496 ML IVPB SCH (20:07)
[2019-12-30] MEDS: OCTREOTIDE ACETATE 200 MCG, OCTREOTIDE ACETATE 1,000 MCG in DEXTROSE 5%-WATER - 496 ML IVPB SCH (21:16)
[2019-12-30] MEDS: MELATONIN 5 MG TABLETS PO PRN (21:19)
[2019-12-30 22:35] VITALS: BMI 29.2
[2019-12-31] MEDS: OCTREOTIDE ACETATE 200 MCG, OCTREOTIDE ACETATE 1,000 MCG in DEXTROSE 5%-WATER - 496 ML IVPB SCH (01:14)
[2019-12-31 07:47] LABS: BASO % 1.1 % (0-2.0); EOS % 23.1 % (0-4.5); HEMATOCRIT 27.6 % (35.4-49); HEMOGLOBIN 9.4 GM/dL (11.7-16.9); LYMPH % 14.4 % (8-40); MCHC 34.1 g/dl (32.0-35.9); MEAN CELL VOLUME 93.9 fl (80-96); MEAN PLT VOLUME 10.5 fl (7.5-11.1); MONO % 8.8 % (3.8-10.2); NEUT % 52.6 % (42.8-82.8); PLATELET COUNT 49 K/MM3 (134-434); RBC 2.94 M/mm3 (4.00-5.60); RDW 17.6 % (11.9-15.9); WHITE BLOOD COUNT 3.3 K/mm3 (4.0-10.0)
[2019-12-31 08:18] LABS: ALBUMIN 2.8 g/dl (3.4-5.0); BLOOD UREA NITROGEN 38.3 mg/dL (7-18); CALCIUM 7.1 mg/dL (8.5-10.1); POTASSIUM 4.6 mmol/L (3.5-5.1); TOT PROT 5.8 g/dl (6.4-8.2)
[2019-12-31 08:24] LABS: CREATININE 7.9 mg/dL (0.55-1.3)
--- NOTE | 2019-12-31 08:53 | PN ---
Progress Note, Physician - Current Medication List Current Medications: Active Medications Epoetin Kendall (Procrit -) 10,000 unit IVPUSH ONCE ONE Stop: 12/31/19 17:22 Sodium Chloride (Normal Saline -) 250 mls @ 3,000 mls/hr IV PRN PRN PRN Reason: Hypotension during Dialysis Stop: 12/31/19 17:21 Octreotide Acetate 200 mcg/Octreotide Acetate 1,000 mcg/Dextrose 500 mls @ 20.833 mls/hr IVPB ASDIR DEV; Protocol Last Admin: 12/31/19 01:14 Dose: 20.833 mls/hr Melatonin (Melatonin) 5 mg PO HS PRN PRN Reason: INSOMNIA Last Admin: 12/30/19 21:19 Dose: 5 mg - Objective Vital Signs: Vital Signs Temperature 98.5 F 12/30/19 21:00 Pulse Rate 77 12/30/19 21:00 Respiratory Rate 20 12/30/19 21:00 Blood Pressure 119/57 L 12/30/19 21:00 O2 Sat by Pulse Oximetry (%) 98 12/30/19 21:00 Cardiovascular: Yes: Regular Rate and Rhythm Respiratory: Yes: Regular, CTA Bilaterally Gastrointestinal: Yes: Normal Bowel Sounds, Soft. No: Tenderness Labs: CBC, BMP 12/31/19 06:35 12/31/19 06:35 INR, PTT INR 1.08 (0.83-1.09) 12/30/19 00:00 Problem List - Problems (1) Upper GI bleeding Assessment/Plan: - h/oAlcoholic cirrhosis (s/p TIPS 10 years ago), multiple GI bleeds - FOBT positive - Continue Octreotide drip - Continue Protonix - CT AP wo contrast noted -GI consult noted Code(s): K92.2 - GASTROINTESTINAL HEMORRHAGE, UNSPECIFIED (2) Anemia Assessment/Plan: -monitor cbc - Type and screen ordered - Would transfuse if Hg goes under 8 Code(s): D64.9 - ANEMIA, UNSPECIFIED (3) CKD (chronic kidney disease) Assessment/Plan: - Pt on transplant list, may consider transfer to [facility] - Continue Dialysis (, Mon, Mon) - Renal consulted Code(s): N18.9 - CHRONIC KIDNEY DISEASE, UNSPECIFIED (4) History of cirrhosis of liver Assessment/Plan: Elevated ammonia 49.8, no clinical encephalopathy noted so no need to start lactulose - ALP 158, AST ALT normal - CT AP on previous admission showed cholelithiasis with GB distension - Will continue to monitor and await results from CT AP Code(s): Z87.19 - PERSONAL HISTORY OF OTHER DISEASES OF THE DIGESTIVE SYSTEM (5) History of esophageal varices with bleeding Assessment/Plan: as above Code(s): Z87.19 - PERSONAL HISTORY OF OTHER DISEASES OF THE DIGESTIVE SYSTEM (6) Acute depression Assessment/Plan: - Psych consult noted - off 1:1 observation Code(s): F32.9 - MAJOR DEPRESSIVE DISORDER, SINGLE EPISODE, UNSPECIFIED
[2019-12-31] MEDS ORDERED: EPOETIN ALFA 10,000 UNIT/1 ML VIAL IVPUSH ONE (09:30)
[2019-12-31 10:31] LABS: ANISOCYTOSIS 2+; MACROCYTOSIS 0; OVALOCYTE 1+; PLATELET ESTIMATE DECREASED; TEAR DROP CELLS 1+
[2019-12-31] MEDS ORDERED: PT OWN MED DRAWER 7, Y5N ONE (14:02)
[2019-12-31] MEDS: PANTOPRAZOLE 40 MG TABLET PO SCH (14:15)
[2019-12-31] MEDS: levETIRAcetam 500 MG TABLET (FP) PO SCH ×2 (14:16→21:01)
[2019-12-31] MEDS: LEVOTHYROXINE NA 50 MCG TABLET (FP) PO SCH (14:16)
[2019-12-31] MEDS: FLUoxetine HCL 20 MG CAPSULE PO SCH (14:16)
--- NOTE | 2019-12-31 16:19 | PN.GI ---
GI Progress Note Subjective: Laying on side. Seems annoyed States feeling well Small dark BM reported by patient to nurse today - Objective Vital Signs: Vital Signs Temperature 97.9 F 12/31/19 10:10 Pulse Rate 77 12/31/19 15:34 Respiratory Rate 20 12/31/19 15:34 Blood Pressure 142/70 12/31/19 15:34 O2 Sat by Pulse Oximetry (%) 98 12/31/19 09:00 Constitutional: Calm Eyes: No: Sclera Icterus Cardiovascular: Yes: Regular Rate and Rhythm ...Auscultate: Yes: Normoactive Bowel Sounds ...Palpate: Yes: Soft. No: Hepatomegaly, Splenomegaly, Tenderness Neurological: Yes: Alert. No: Asterixis Labs: CBC, BMP 12/31/19 06:35 12/31/19 06:35 INR, PTT INR 1.08 (0.83-1.09) 12/30/19 00:00 Problem List - Problems (1) Melena Assessment/Plan: No significant bleeding reported. Explained to patient that next tep in terms of evaluation for cource of bleeding would be capsule endoscopy. This can be performed as inpatient at [facility]. He refused to be transferred at this time and states that he wants to go home. I felt transfer was the best and safest option for him given his comorbidities. He can sign out AMA. Stop octreotide Code(s): K92.1 - MELENA (2) Eosinophilia Assessment/Plan: Not sure why he has a persistent peripheral eosinophilia. Consider e hematology evaluation to evaluate further Code(s): D72.1 - EOSINOPHILIA
--- NOTE | 2019-12-31 18:49 | PN ---
Progress Note, Physician History of Present Illness: Pt seen and examined at bedside. He tolerated HD today. He says that his stools are now brown. - Current Medication List Current Medications: Active Medications Amlodipine Besylate (Norvasc -) 10 mg PO DAILY [facility] Fluoxetine HCl (Prozac -) 40 mg PO DAILY [facility] Last Admin: 12/31/19 14:16 Dose: 40 mg Gabapentin (Neurontin -) 300 mg PO HS DEV Levetiracetam (Keppra -) 500 mg PO BID [facility] Last Admin: 12/31/19 14:16 Dose: 500 mg Levothyroxine Sodium (Synthroid -) 50 mcg PO DAILY@0700 [facility] Last Admin: 12/31/19 14:16 Dose: 50 mcg Lisinopril (Prinivil) 10 mg PO DAILY [facility] Melatonin (Melatonin) 5 mg PO HS PRN PRN Reason: INSOMNIA Last Admin: 12/30/19 21:19 Dose: 5 mg Pantoprazole Sodium (Protonix -) 40 mg PO DAILY [facility] Last Admin: 12/31/19 14:15 Dose: 40 mg - Objective Vital Signs: Vital Signs Temperature 97.9 F 12/31/19 10:10 Pulse Rate 77 12/31/19 15:34 Respiratory Rate 20 12/31/19 15:34 Blood Pressure 142/70 12/31/19 15:34 O2 Sat by Pulse Oximetry (%) 98 12/31/19 09:00 Constitutional: Yes: Calm Eyes: Yes: Conjunctiva Clear HENT: Yes: Atraumatic Neck: Yes: Supple Cardiovascular: Yes: S1, S2 Respiratory: Yes: CTA Bilaterally Gastrointestinal: Yes: Soft Genitourinary: Yes: WNL Musculoskeletal: Yes: WNL Edema: No Neurological: Yes: Oriented Psychiatric: Yes: Oriented Labs: CBC, BMP 12/31/19 06:35 12/31/19 06:35 INR, PTT INR 1.08 (0.83-1.09) 12/30/19 00:00 Problem List - Problems (1) ESRD (end stage renal disease) Code(s): N18.6 - END STAGE RENAL DISEASE Assessment/Plan Current Medications Generic Name Dose Route Start Last Admin Trade Name Freq PRN Reason Stop Dose Admin Amlodipine Besylate 10 mg 01/01/20 10:00 Norvasc - PO DAILY [facility] Fluoxetine HCl 40 mg 12/31/19 10:00 12/31/19 14:16 Prozac - PO 40 mg DAILY DEV Administration Gabapentin 300 mg 12/31/19 22:00 Neurontin - PO HS DEV Levetiracetam 500 mg 12/31/19 10:00 12/31/19 14:16 Keppra - PO 500 mg BID DEV Administration Levothyroxine Sodium 50 mcg 12/31/19 10:00 12/31/19 14:16 Synthroid - PO 50 mcg DAILY@0700 DEV Administration Lisinopril 10 mg 01/01/20 10:00 Prinivil PO DAILY DEV Melatonin 5 mg 12/30/19 22:00 12/30/19 21:19 Melatonin PO 5 mg HS PRN Administration INSOMNIA Pantoprazole Sodium 40 mg 12/31/19 10:00 12/31/19 14:15 Protonix - PO 40 mg DAILY DEV Administration Impression 1. ESRD 2. htn 3. hx etoh abuse 4. liver cirrhosis with tips 5. anemia 6. melena Plan - HD today - quentin hess for anemia - gi follow up - 3 45 180 abf 400 3 k bath
[2019-12-31] MEDS: MELATONIN 5 MG TABLETS PO PRN (21:01)
[2019-12-31] MEDS ORDERED: GABAPENTIN 300 MG CAPSULE PO SCH (22:00)
[2020-01-01] MEDS: LEVOTHYROXINE NA 50 MCG TABLET (FP) PO SCH (06:30)
[2020-01-01] MEDS ORDERED: PT OWN MED DRAWER 7, Y5N ONE (09:39)
[2020-01-01] MEDS: levETIRAcetam 500 MG TABLET (FP) PO SCH (09:53)
[2020-01-01] MEDS: FLUoxetine HCL 20 MG CAPSULE PO SCH (09:53)
[2020-01-01] MEDS: PANTOPRAZOLE 40 MG TABLET PO SCH (09:53)
[2020-01-01] MEDS ORDERED: LISINOPRIL 10 MG TABLET (FP) PO SCH (10:00)
[2020-01-01] MEDS ORDERED: amLODIPine BESYLATE 10 MG TABLET (FP) PO SCH (10:00)
--- NOTE | 2020-01-01 10:48 | PN ---
Progress Note, Physician Chief Complaint: GI bleed Major depression - Current Medication List Current Medications: Active Medications Amlodipine Besylate (Norvasc -) 10 mg PO DAILY [facility] Last Admin: 01/01/20 09:53 Dose: 10 mg Fluoxetine HCl (Prozac -) 40 mg PO DAILY [facility] Last Admin: 01/01/20 09:53 Dose: 40 mg Gabapentin (Neurontin -) 300 mg PO HS [facility] Last Admin: 12/31/19 21:01 Dose: 300 mg Levetiracetam (Keppra -) 500 mg PO BID [facility] Last Admin: 01/01/20 09:53 Dose: 500 mg Levothyroxine Sodium (Synthroid -) 50 mcg PO DAILY@0700 [facility] Last Admin: 01/01/20 06:30 Dose: 50 mcg Lisinopril (Prinivil) 10 mg PO DAILY [facility] Last Admin: 01/01/20 09:54 Dose: 10 mg Melatonin (Melatonin) 5 mg PO HS PRN PRN Reason: INSOMNIA Last Admin: 12/31/19 21:01 Dose: 5 mg Pantoprazole Sodium (Protonix -) 40 mg PO DAILY [facility] Last Admin: 01/01/20 09:53 Dose: 40 mg - Objective Vital Signs: Vital Signs Temperature 98.4 F 01/01/20 06:00 Pulse Rate 69 01/01/20 06:00 Respiratory Rate 20 01/01/20 06:00 Blood Pressure 152/77 01/01/20 06:00 O2 Sat by Pulse Oximetry (%) 98 12/31/19 21:00 Constitutional: Yes: Well Nourished, No Distress, Calm Cardiovascular: Yes: Regular Rate and Rhythm Respiratory: Yes: Regular Gastrointestinal: Yes: Normal Bowel Sounds, Soft Genitourinary: Yes: WNL Musculoskeletal: Yes: WNL Extremities: Yes: WNL Edema: No Neurological: Yes: Alert, Oriented Psychiatric: Yes: Alert, Oriented, Other (depressed mood) Labs: CBC, BMP 12/31/19 06:35 12/31/19 06:35 INR, PTT INR 1.08 (0.83-1.09) 12/30/19 00:00 Problem List - Problems (1) History of cirrhosis of liver Assessment/Plan: -Seen by GI -2/2 to chronic alcohol use -Abstinence from alcohol Problems reviewed: Yes Code(s): Z87.19 - PERSONAL HISTORY OF OTHER DISEASES OF THE DIGESTIVE SYSTEM (2) Anemia Assessment/Plan: -h/oAlcoholic cirrhosis (s/p TIPS 10 years ago), multiple GI bleeds -FOBT positive -Continue Protonix- 40 mg po BID -CT AP wo contrast reviewed -GI consult appreciated -refuses to be transferred to [facility] for EUS Problems reviewed: Yes Code(s): D64.9 - ANEMIA, UNSPECIFIED (3) ESRD (end stage renal disease) on dialysis Assessment/Plan: -nephrology on board -HD as per renal-TThSa Problems reviewed: Yes Code(s): N18.6 - END STAGE RENAL DISEASE; Z99.2 - DEPENDENCE ON RENAL DIALYSIS (4) GI (gastrointestinal bleed) Problems reviewed: Yes Code(s): K92.2 - GASTROINTESTINAL HEMORRHAGE, UNSPECIFIED (5) Hepatic encephalopathy Problems reviewed: Yes Code(s): K72.90 - HEPATIC FAILURE, UNSPECIFIED WITHOUT COMA (6) Acute depression Assessment/Plan: -Seen by Psych -Continue prozac 40 mg po daily -1:1 discontinued -No suicidal ideation at this time Problems reviewed: Yes Code(s): F32.9 - MAJOR DEPRESSIVE DISORDER, SINGLE EPISODE, UNSPECIFIED (7) Eosinophilia Assessment/Plan: -Hematology consult Problems reviewed: Yes Code(s): D72.1 - EOSINOPHILIA (8) Alcoholic hepatitis Problems reviewed: Yes Code(s): K70.10 - ALCOHOLIC HEPATITIS WITHOUT ASCITES Assessment/Plan See problem list PT
--- NOTE | 2020-01-01 13:55 | PN ---
Progress Note, Physician History of Present Illness: Pt seen and examined at bedside. He is awake and alert. He denies shortness of breath. - Current Medication List Current Medications: Active Medications Amlodipine Besylate (Norvasc -) 10 mg PO DAILY [facility] Last Admin: 01/01/20 09:53 Dose: 10 mg Fluoxetine HCl (Prozac -) 40 mg PO DAILY [facility] Last Admin: 01/01/20 09:53 Dose: 40 mg Gabapentin (Neurontin -) 300 mg PO HS [facility] Last Admin: 12/31/19 21:01 Dose: 300 mg Levetiracetam (Keppra -) 500 mg PO BID [facility] Last Admin: 01/01/20 09:53 Dose: 500 mg Levothyroxine Sodium (Synthroid -) 50 mcg PO DAILY@0700 [facility] Last Admin: 01/01/20 06:30 Dose: 50 mcg Lisinopril (Prinivil) 10 mg PO DAILY [facility] Last Admin: 01/01/20 09:54 Dose: 10 mg Melatonin (Melatonin) 5 mg PO HS PRN PRN Reason: INSOMNIA Last Admin: 12/31/19 21:01 Dose: 5 mg Pantoprazole Sodium (Protonix -) 40 mg PO DAILY [facility] Last Admin: 01/01/20 09:53 Dose: 40 mg - Objective Vital Signs: Vital Signs Temperature 98.0 F 01/01/20 12:00 Pulse Rate 65 01/01/20 12:00 Respiratory Rate 18 01/01/20 12:00 Blood Pressure 139/74 01/01/20 12:00 O2 Sat by Pulse Oximetry (%) 98 01/01/20 09:00 Constitutional: Yes: Calm Eyes: Yes: Conjunctiva Clear HENT: Yes: Atraumatic Neck: Yes: Supple Cardiovascular: Yes: S1, S2 Respiratory: Yes: CTA Bilaterally Gastrointestinal: Yes: Soft Genitourinary: Yes: WNL Musculoskeletal: Yes: WNL Edema: No Neurological: Yes: Oriented Psychiatric: Yes: Oriented Labs: CBC, BMP 12/31/19 06:35 12/31/19 06:35 INR, PTT INR 1.08 (0.83-1.09) 12/30/19 00:00 Problem List - Problems (1) ESRD (end stage renal disease) Code(s): N18.6 - END STAGE RENAL DISEASE Assessment/Plan Current Medications Generic Name Dose Route Start Last Admin Trade Name Alexx PRN Reason Stop Dose Admin Amlodipine Besylate 10 mg 01/01/20 10:00 01/01/20 09:53 Norvasc - PO 10 mg DAILY DEV Administration Fluoxetine HCl 40 mg 12/31/19 10:00 01/01/20 09:53 Prozac - PO 40 mg DAILY DEV Administration Gabapentin 300 mg 12/31/19 22:00 12/31/19 21:01 Neurontin - PO 300 mg HS DEV Administration Levetiracetam 500 mg 12/31/19 10:00 01/01/20 09:53 Keppra - PO 500 mg BID DEV Administration Levothyroxine Sodium 50 mcg 12/31/19 10:00 01/01/20 06:30 Synthroid - PO 50 mcg DAILY@0700 DEV Administration Lisinopril 10 mg 01/01/20 10:00 01/01/20 09:54 Prinivil PO 10 mg DAILY DEV Administration Melatonin 5 mg 12/30/19 22:00 12/31/19 21:01 Melatonin PO 5 mg HS PRN Administration INSOMNIA Pantoprazole Sodium 40 mg 12/31/19 10:00 01/01/20 09:53 Protonix - PO 40 mg DAILY DEV Administration Impression 1. ESRD 2. htn 3. hx etoh abuse 4. liver cirrhosis with tips 5. anemia 6. melena 7. eosinophilia Plan - Hd tomorrow - monitor hg - cont epogen - discussed with medical team - 3 45 180 abf 400 3 k bath
[2020-01-01 15:13] VITALS: BP 127/69; PULSE 70; TEMP 97.9
--- NOTE | 2020-01-01 17:17 | DS ---
Physical Examination Vital Signs: Vital Signs Temperature 97.9 F 01/01/20 15:12 Pulse Rate 70 01/01/20 15:12 Respiratory Rate 18 01/01/20 15:12 Blood Pressure 127/69 01/01/20 15:12 O2 Sat by Pulse Oximetry (%) 98 01/01/20 09:00 Findings/Remarks: This is a 49 year old male with PMH significant for HTN, HLD, Alcoholic cirrhosis (s/p TIPS 10 years ago), multiple GI bleeds, amd ESRD. He presented to the ER with complaints of 3 days of dark stools, 2 episodes of vomiting yesterday, and abdominal pain that began earlier today. For the past 3 days, he has been having over 10 BMs per day, small in amount and hard in consistency. The first episode 3 days ago was associated with a few drops of pink blood noticed on the toilet paper after wiping. He has not noticed any blood since then, but the stools have been darker than usual. He also endorses nausea with 2 episodes of vomiting yesterday. morning, NBNB, watery in consistency. Earlier today around evening time he developed abdominal pain in his RLQ. It was sudden in onset, 4/10 in intensity, aching in quality, constant for a few hours until it stopped shortly after presenting to the ER, non-radiating, with no aggravating or alleviating factors. His last BM was in the morning before the pain began, and he has not had any BMs since the pain began and ended. He has had a decreased appetite for the past few days, and today ate eggs and cheese in the morning. While in the ER, he expressed hopelessness at his prognosis, and admitted suicidal ideation to one physician. He also endorses some light headedness, but denies any fevers, chills, SOB, chest pain, palpitations, diarrhea, dysuria, urgency, or hematuria. He states that he has had several GI bleeds in the past, and has undergone banding as well as a TIPS procedure (over 10 years ago). He was last admitted to [facility] in Nov 2019. CTAP was done at the time, along with endoscopy, and no source was found. CTAP showed distended GB with cholelithiasis and a right sided pleural effusion. He was transferred to [facility] for further management and is currently awaiting hepatic/renal transplant. Constitutional: Yes: Well Nourished, No Distress, Calm Cardiovascular: Yes: Regular Rate and Rhythm Respiratory: Yes: Regular Gastrointestinal: Yes: Normal Bowel Sounds, Soft Musculoskeletal: Yes: WNL Extremities: Yes: WNL Edema: No Peripheral Pulses WNL: Yes Neurological: Yes: Alert, Oriented Psychiatric: Yes: Alert, Oriented Labs: CBC, BMP 12/31/19 06:35 12/31/19 06:35 Discharge Summary Problems reviewed: Yes Reason For Visit: GASTROINTESTINAL HEMORRHAGE Current Active Problems Acute depression (Acute) Eosinophilia (Acute) Melena (Acute) Upper GI bleeding (Acute) Laboratory Last Values WBC 3.3 K/mm3 (4.0-10.0) L 12/31/19 06:35 RBC 2.94 M/mm3 (4.00-5.60) L 12/31/19 06:35 Hgb 9.4 GM/dL (11.7-16.9) L 12/31/19 06:35 Hct 27.6 % (35.4-49) L 12/31/19 06:35 MCV 93.9 fl (80-96) 12/31/19 06:35 MCH 32.0 pg (25.7-33.7) 12/31/19 06:35 MCHC 34.1 g/dl (32.0-35.9) 12/31/19 06:35 RDW 17.6 % (11.9-15.9) H 12/31/19 06:35 Plt Count 49 K/MM3 (134-434) L D 12/31/19 06:35 MPV 10.5 fl (7.5-11.1) 12/31/19 06:35 Absolute Neuts (auto) 1.7 K/mm3 (1.5-8.0) 12/31/19 06:35 Neutrophils % 52.6 % (42.8-82.8) 12/31/19 06:35 Neutrophils % (Manual) 48.5 % (42.8-82.8) 12/31/19 06:35 Band Neutrophils % 0.0 % 12/31/19 06:35 Lymphocytes % 14.4 % (8-40) D 12/31/19 06:35 Lymphocytes % (Manual) 14.9 % (8-40) D 12/31/19 06:35 Monocytes % 8.8 % (3.8-10.2) 12/31/19 06:35 Monocytes % (Manual) 7 % (3.8-10.2) 12/31/19 06:35 Eosinophils % 23.1 % (0-4.5) H* 12/31/19 06:35 Eosinophils % (Manual) 26.7 % (0-4.5) H 12/31/19 06:35 Basophils % 1.1 % (0-2.0) 12/31/19 06:35 Basophils % (Manual) 1.0 % (0-2.0) 12/31/19 06:35 Myelocytes % (Man) 0 % (0-2) 12/31/19 06:35 Promyelocytes % (Man) 0 % (0-2) 12/31/19 06:35 Blast Cells % (Manual) 0 % (0-0) 12/31/19 06:35 Nucleated RBC % 1 % (0-0) H 12/31/19 06:35 Metamyelocytes 0 % (0-2) 12/31/19 06:35 Hypochromia 0 12/31/19 06:35 Platelet Estimate Decreased 12/31/19 06:35 Polychromasia 1+ 12/31/19 06:35 Poikilocytosis 1+ 12/31/19 06:35 Anisocytosis 2+ 12/31/19 06:35 Microcytosis 2+ 12/31/19 06:35 Macrocytosis 0 12/31/19 06:35 Spherocytes 1+ 12/31/19 06:35 Tear Drop Cells 1+ 12/31/19 06:35 Ovalocytes 1+ 12/31/19 06:35 PT with INR 12.80 SEC (9.7-13.0) 12/30/19 00:00 INR 1.08 (0.83-1.09) 12/30/19 00:00 VBG pH 7.24 (7.31-7.41) L 12/30/19 00:00 POC VBG pCO2 66.9 mmHg (38-52) H 12/30/19 00:00 POC VBG pO2 < 49 mmHg (28-48) H 12/30/19 00:00 VBG HCO3 27.4 mmol/L (23-29) 12/30/19 00:00 VBG O2 Sat (Connie) 24.0 % (70-80) L 12/30/19 00:00 VBG Base Excess -1.7 meq/l (-2-2) 12/30/19 00:00 Sodium 136 mmol/L (136-145) 12/31/19 06:35 Potassium 4.6 mmol/L (3.5-5.1) 12/31/19 06:35 Chloride 105 mmol/L (98-107) 12/31/19 06:35 Carbon Dioxide 21 mmol/L (21-32) 12/31/19 06:35 Anion Gap 10 MMOL/L (8-16) 12/31/19 06:35 BUN 38.3 mg/dL (7-18) H 12/31/19 06:35 Creatinine 7.9 mg/dL (0.55-1.3) H* 12/31/19 06:35 Est GFR (CKD-EPI)AfAm 8.50 12/31/19 06:35 Est GFR (CKD-EPI)NonAf 7.33 12/31/19 06:35 Random Glucose 91 mg/dL (74-106) 12/31/19 06:35 Lactic Acid 1.4 mmol/L (0.4-2.0) 12/30/19 00:00 Calcium 7.1 mg/dL (8.5-10.1) L 12/31/19 06:35 Total Bilirubin 1.0 mg/dL (0.2-1) 12/31/19 06:35 AST 14 U/L (15-37) L 12/31/19 06:35 ALT 12 U/L (13-61) L 12/31/19 06:35 Alkaline Phosphatase 129 U/L (45-117) H 12/31/19 06:35 Ammonia 49.80 umol/L (11-32) H 12/30/19 00:00 Creatine Kinase 72 U/L (26-308) 12/30/19 00:00 Troponin I < 0.02 ng/ml (0.00-0.05) 12/30/19 00:00 Total Protein 5.8 g/dl (6.4-8.2) L 12/31/19 06:35 Albumin 2.8 g/dl (3.4-5.0) L 12/31/19 06:35 Tumor Marker AFP 9.3 ng/ml (0.0-8.3) H 12/30/19 10:00 Stool Occult Blood Positive (NEGATIVE) 12/30/19 02:10 Blood Type B POSITIVE 12/30/19 00:00 Antibody Screen Negative 12/30/19 00:00 Microbiology 12/30/19 00:00 Blood - Peripheral Venous Blood Culture - Preliminary NO GROWTH OBTAINED AFTER 48 HOURS, INCUBATION TO CONTINUE FOR 3 DAYS. 12/30/19 00:00 Blood - Peripheral Venous Blood Culture - Preliminary NO GROWTH OBTAINED AFTER 48 HOURS, INCUBATION TO CONTINUE FOR 3 DAYS. Vital Signs Temp 97.9 F 01/01/20 15:12 Pulse 70 01/01/20 15:12 Resp 18 01/01/20 15:12 BP 127/69 01/01/20 15:12 Pulse Ox 98 01/01/20 09:00 Intake & Output 12/31/19 01/01/20 01/01/20 23:59 11:59 23:59 Intake Total 480 0 Output Total 1500 Balance -1020 0 Intake: IV 480 Normal Saline - 250 ml @ 440 3000 mls/hr IV PRN PRN Rx #:[id number] Sandostatin - 200 Mcg 40 Sandostatin - 1,000 Mcg In D5w - 496 ml @ 20.833 mls/hr IVPB ASDIR DEV Rx# :[id number] Oral 0 Output: Fluid Removed, 1500 Hemodialysis Other: Voiding Method Toilet Toilet # Unmeasured Voids Void 1 Condition: Stable - Instructions Diet, Activity, Other Instructions: Follow up with Hematology Dr Gavin Maxwell MD by calling [phone] for Eosinophilia Also follow up with your PCP within 2 weeks Follow up with Dr Luna at [facility] on Dec 20 for EUS Referrals: Crispin Nick MD [Staff Physician] - Gavin Maxwell [Non Staff, Medical] - Disposition: HOME - Home Medications Comprehensive Discharge Medication List: Ambulatory Orders Amlodipine Besylate 10 mg PO DAILY 12/03/19 Calcitriol [Calcitriol -] 0.25 mcg PO WEEKLY 12/03/19 Ferric Citrate [Auryxia] 420 mg PO TID 12/03/19 Fluoxetine HCl 40 mg PO DAILY 12/03/19 Furosemide 80 mg PO UTDICT 12/03/19 Gabapentin 300 mg PO HS 12/03/19 Levothyroxine [Synthroid -] 50 mcg PO DAILY 12/03/19 Lisinopril 10 mg PO DAILY 12/03/19 Omeprazole 40 mg PO DAILY 12/03/19 Rifaximin [Xifaxan -] 550 mg PO BID 12/03/19 levETIRAcetam [Keppra -] 500 mg PO BID 12/03/19 Amlodipine Besylate [Norvasc -] 10 mg PO DAILY tablet 01/01/20 Prescription Drug Monitoring Program (I-STOP) results: I-STOP reviewed and no issues identified
--- NOTE | 2020-01-01 17:19 | PN ---
Progress Note (short form) - Note Progress Note: Pt seen/examined at bedside, sitting up wants to go home. Tolerating regular diet, had brown bm this am. Denies abdominal pain, n/v. On examination: Pt appears comfortable, Abd soft, nt, nd Labs reviewed. CBC, BMP 12/31/19 06:35 12/31/19 06:35 Assessment/plan: 49yo male h/o ESRD on HD, ETOH, cirrhosis, esophageal varices s/p prior banding , TIPS with black stools. Prior EGD and colonoscopy findings noted without obvious etiology for anemia or reported melena. Hb fluctuating though stable, no overt bleeding. -Continue to monitor Hb and for evidence of bleeding -2g NA diet -PPI daily -As previously noted, pt would require small bowel evaluation to further evaluate which can be done at [facility] where pt follows and transfer advised if pt agreeable. -If overt bleeding with drop in Hb in the interim please notify GI
== END 2020-01-01 18:30 | disposition home or self-care (01) | DRG 377 ==
LOC: JER 23:03 → JERBED 12-30 05:01 → J7W 12-30 19:59
PROVIDERS: ADMIT Internal Medicine; ATTEND Family Medicine
PROC: 5A1D70Z Performance of Urinary Filtration, Intermittent, Less than 6 Hours Per Day (ICD-10-PCS; principal; 2019-12-30)
DX: K92.2 Gastrointestinal hemorrhage, unspecified (principal); N18.6 End stage renal disease; I12.0 Hypertensive chronic kidney disease with stage 5 chronic kidney disease or end stage renal disease; N17.9 Acute kidney failure, unspecified; Z99.2 Dependence on renal dialysis; E78.5 Hyperlipidemia, unspecified; F32.9 Major depressive disorder, single episode, unspecified; K70.30 Alcoholic cirrhosis of liver without ascites; F10.10 Alcohol abuse, uncomplicated; E88.09 Other disorders of plasma-protein metabolism, not elsewhere classified; D64.9 Anemia, unspecified; D69.6 Thrombocytopenia, unspecified; D72.1 Eosinophilia; K72.90 Hepatic failure, unspecified without coma
CPT/HCPCS: 36415; 71045-TC-FY; 74176-TC; 80053; 82105; 82140; 82272; 82550; 82803; 83605; 84484; 85025; 85027; 85610; 86850; 86900; 86901; 87040; 93005; 93010; 97116-GP; 97161-GP; 99285-25; J0885

== ENCOUNTER 2020-01-11 12:33 | Inpatient (IN) | payer OTHER ==
--- NOTE | 2020-01-11 13:59 | PDOC ---
History of Present Illness - General History Source: Patient Exam Limitations: No Limitations - History of Present Illness Initial Comments: 01/11/20 13:51 49-year-old male with end-stage renal disease currently receiving HD Monday and Monday, states received a phone call yesterday from his hemodialysis center that his hemoglobin was low and needed to go to the ER for transfusion. Patient states history of anemia requiring transfusions in the past. Patient states was due for dialysis today but has no complaints of shortness of breath, chest pain, lower extremity edema, or weakness. Patient is followed by Dr. Sparks when admitted at [facility]. Is this a multiple visit Asthma Patient?: No Timing/Duration: unsure Associated Symptoms: reports: denies symptoms <Hanane Newman - Last Filed: 01/11/20 15:21> <Jahaira Tobias - Last Filed: 01/11/20 15:40> - General Chief Complaint: Abnormal Lab Results (Outside) Stated Complaint: ABN LAB RESULTS Time Seen by Provider: 01/11/20 13:34 Past History - Travel Traveled outside of the country in the last 30 days: No Close contact w/someone who was outside of country & ill: No - Past Medical History Anemia: Yes Asthma: No Cancer: No Cardiac Disorders: No CVA: No COPD: No CHF: No Dementia: No Diabetes: Yes Dialysis: Yes GI Disorders: Yes (cirrhosis etoh abuse) Disorders: No HTN: Yes Hypercholesterolemia: No Kidney Stones: No Liver Disease: Yes (CIRRHOSIS OF LIVER) Psychiatric Problems: Yes (DEPRESSION, ANXEITY) Seizures: Yes Thyroid Disease: No - Surgical History Abdominal Surgery: No Appendectomy: No Cardiac Surgery: No Cholecystectomy: No Lung Surgery: No Neurologic Surgery: No Orthopedic Surgery: Yes (right shoulder due to dislocation 6 years ago) - Reproductive History Testicular Surgery: No - Immunization History Immunization Up to Date: Yes - Psycho Social/Smoking Cessation Hx Smoking Status: No Smoking History: Current every day smoker Have you smoked in the past 12 months: Yes Number of Cigarettes Smoked Daily: 5 If you are a former smoker, when did you quit?: 2010 Cigars Per Day: 0 Information on smoking cessation initiated: No 'Breaking Loose' booklet given: 02/22/18 Hx Alcohol Use: No Drug/Substance Use Hx: No Substance Use Type: None Hx Substance Use Treatment: Yes (ALCOHOL REHAB) Patient Lives Alone: No Lives with/in: spouse/SO <PatyNorwich - Last Filed: 01/11/20 15:21> <Alvino Tobiasie Carlieevans - Last Filed: 01/11/20 15:40> - Past Medical History Allergies/Adverse Reactions: Allergies Allergy/AdvReac Type Severity Reaction Status Date / Time piperacillin Allergy Severe Swelling Verified 01/11/20 13:00 sertraline [From Zoloft] Allergy Severe Difficulty Verified 01/11/20 13:00 Breathing shellfish derived Allergy Severe Swelling Verified 01/11/20 13:00 latex Allergy Mild Rash Verified 01/11/20 13:00 Home Medications: Ambulatory Orders Amlodipine Besylate 10 mg PO DAILY 12/03/19 Calcitriol [Calcitriol -] 0.25 mcg PO WEEKLY 12/03/19 Ferric Citrate [Auryxia] 420 mg PO TID 12/03/19 Fluoxetine HCl 40 mg PO DAILY 12/03/19 Furosemide 80 mg PO UTDICT 12/03/19 Gabapentin 300 mg PO HS 12/03/19 Levothyroxine [Synthroid -] 50 mcg PO DAILY 12/03/19 Lisinopril 10 mg PO DAILY 12/03/19 Omeprazole 40 mg PO DAILY 12/03/19 Rifaximin [Xifaxan -] 550 mg PO BID 12/03/19 levETIRAcetam [Keppra -] 500 mg PO BID 12/03/19 Amlodipine Besylate [Norvasc -] 10 mg PO DAILY tablet 01/01/20 Review of Systems - Review of Systems Able to Perform ROS?: No Is the patient limited Croatian proficient: No Constitutional: No: Symptoms Reported HEENTM: No: Symptoms Reported Respiratory: No: Symptoms reported Cardiac (ROS): No: Symptoms Reported ABD/GI: No: Symptoms Reported : No: Symptoms Reported Musculoskeletal: No: Symptoms Reported Integumentary: No: Symptoms Reported Neurological: No: Symptoms reported Endocrine: No: Symptoms Reported Hematologic/Lymphatic: No: Symptoms Reported <Hanane Newman - Last Filed: 01/11/20 15:21> *Physical Exam - Vital Signs Last Vital Signs Temp Pulse Resp BP Pulse Ox 98.2 F 82 16 123/45 L 100 01/11/20 13:01 01/11/20 13:01 01/11/20 13:01 01/11/20 13:01 01/11/20 13:01 - Physical Exam General Appearance: Yes: Nourished, Appropriately Dressed. No: Apparent Distress HEENT: positive: EOMI, CARYL, Pale Conjunctivae Neck: positive: Supple Respiratory/Chest: positive: Lungs Clear, Normal Breath Sounds. negative: Respiratory Distress, Accessory Muscle Use Cardiovascular: positive: Regular Rhythm, Regular Rate. negative: Murmur Gastrointestinal/Abdominal: positive: Soft. negative: Tenderness Integumentary: positive: Warm, Pale, Moist Neurologic: positive: Motor Strength 5/5 (Ambulatory) <Hanane Newman - Last Filed: 01/11/20 15:21> - Vital Signs Last Vital Signs Temp Pulse Resp BP Pulse Ox 98.2 F 82 16 123/45 L 100 01/11/20 13:01 01/11/20 13:01 01/11/20 13:01 01/11/20 13:01 01/11/20 13:01 <Jahaira Tobias - Last Filed: 01/11/20 15:40> Heart Score/ECG Review - ECG Intrepretation Rhythm: Regular Rhythm (Rate [address] elevation or depression. Intervals regular. Normal sinus rhythm) <Hanane Newman - Last Filed: 01/11/20 15:21> ED Treatment Course - LABORATORY CBC & Chemistry Diagram: 01/11/20 14:04 01/11/20 14:04 <Hanane Newman - Last Filed: 01/11/20 15:21> - LABORATORY CBC & Chemistry Diagram: 01/11/20 14:04 01/11/20 14:04 <Jahaira Tobias - Last Filed: 01/11/20 15:40> Medical Decision Making - Medical Decision Making 01/11/20 13:54 Low H&H sent by dialysis center. Patient has no complaints but states did not receive his dialysis today and was told to come to the ER instead. Exam: Patient appears pale vital signs stable. Plan: Labs, EKG, type and screen and IV 01/11/20 14:53 Laboratory Tests 01/11/20 14:04 WBC 3.9 L Hgb 6.6 L* Hct 19.4 L D RDW 18.2 H Plt Count 93 L D Eosinophils % 18.5 H Patient seen by Dr. Coombs. Plan is to give 2 units of blood await chemistry and consider dialysis. Patient will be admitted to the hospital EKG shows normal sinus rhythm. 01/11/20 15:21 Laboratory Tests 01/11/20 14:04 Sodium 143 Potassium 4.9 Chloride 110 H Carbon Dioxide 26 Anion Gap 7 L BUN 35.8 H Creatinine 7.1 H Est GFR (CKD-EPI)AfAm 9.67 Random Glucose 96 Calcium 7.8 L Total Bilirubin 0.5 AST 38 H ALT 12 L Alkaline Phosphatase 149 H Total Protein 5.9 L Albumin 2.9 L Case discussed with Dr. Suzette Godinez and admitted to his service for MedSurg observation <Hanane Newman - Last Filed: 01/11/20 15:21> - Medical Decision Making Vital Signs Temp Pulse Resp BP Pulse Ox 98.2 F 82 16 123/45 L 100 01/11/20 13:01 01/11/20 13:01 01/11/20 13:01 01/11/20 13:01 01/11/20 13:01 The patient was seen and evaluated in conjunction with midlevel provider under my direct supervision, ancillary studies were reviewed. I agree with the plan as outlined with NINO Newman. HPI, workup/dispo as outlined. VS reviewed, wnl. Type and screen, H/H notable for anemia, hemoglobin 6.6. Will transfuse 2 units of PRBCs, consent. Patient is on hemodialysis anemia is likely secondary to ESRD, renal function. Admit for acute on chronic anemia, transfusion, medical management. 01/11/20 15:39 <Jahaira Tobias - Last Filed: 01/11/20 15:40> Discharge - Discharge Information Problems reviewed: Yes - Admission Yes <Hanane Newman - Last Filed: 01/11/20 15:21> <Jahaira Tobias - Last Filed: 01/11/20 15:40> - Discharge Information Clinical Impression/Diagnosis: ESRD (end stage renal disease) on dialysis, Transfusion of blood during current hospitalisation
[2020-01-11 14:30] LABS: BASO % 0.7 % (0-2.0); EOS % 18.5 % (0-4.5); HEMATOCRIT 19.4 % (35.4-49); LYMPH % 13.6 % (8-40); MCH 33.5 pg (25.7-33.7); MCHC 33.8 g/dl (32.0-35.9); MEAN PLT VOLUME 11.1 fl (7.5-11.1); MONO % 5.4 % (3.8-10.2); NEUT % 61.8 % (42.8-82.8); PLATELET COUNT 93 K/MM3 (134-434); RBC 1.96 M/mm3 (4.00-5.60); RDW 18.2 % (11.9-15.9); WHITE BLOOD COUNT 3.9 K/mm3 (4.0-10.0)
[2020-01-11 14:38] LABS: HEMOGLOBIN 6.6 GM/dL (11.7-16.9)
[2020-01-11 15:11] LABS: ALBUMIN 2.9 g/dl (3.4-5.0); BILIRUBIN,TOTAL 0.5 mg/dL (0.2-1); BLOOD UREA NITROGEN 35.8 mg/dL (7-18); CALCIUM 7.8 mg/dL (8.5-10.1); CREATININE 7.1 mg/dL (0.55-1.3); POTASSIUM 4.9 mmol/L (3.5-5.1); TOT PROT 5.9 g/dl (6.4-8.2)
--- NOTE | 2020-01-11 15:58 | CON.NEP ---
Consult Consult Specialty:: nephrology Reason for Consultation:: esrd - History of Present Illness Chief Complaint: anemia History of Present Illness: This is a 49 year old man with history of esrd, htn, previous ICH s/p decompression and chronic anemia who presnets for evaluation for anemia. He was called from dialysis unit for his anemia and to come to hospital for transfusion. He has no complaints. Today is his regular dialysis day. - History Source History Provided By: Patient - Past Medical History [employer] INSPECT[employer]: Yes: Seizure, Other ([place] hole decompression of intracerebral bleed ? fall after seizre or hypertensive hemorrhage) Cardio/Vascular: Yes: HTN, Hyperlipdemia Gastrointestinal: Yes: GI Bleed (multiple esophageal variceal bleed and banding before TIPS was placed at [facility]), Other (colon polyp removed by Dr De La Torre at [facility] ?) Hepatobiliary: Yes: Cirrhosis Renal/: Yes: Renal Inusuff, Hematuria, Hemodialysis Psych: Yes: Addictions (alcohol, previously cocaine and marijuana), Depression, Other (attempted suicide) Endocrine: Yes: Diabetes Mellitus - Past Surgical History Past Surgical History: Yes: Arthrosocopy (left knee), Colonoscopy, Upper Endoscopy - Alcohol/Substance Use Hx Alcohol Use: No History of Substance Use: reports: Cocaine (snorted), Marijuana - Smoking History Smoking history: Current every day smoker Have you smoked in the past 12 months: Yes Aproximately how many cigarettes per day: 5 If you are a former smoker, when did you quit?: 2010 - Social History Usual Living Arrangement: Alone ADL: Support Services 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 History of Recent Travel: No Home Medications - Allergies Allergies/Adverse Reactions: Allergies Allergy/AdvReac Type Severity Reaction Status Date / Time piperacillin Allergy Severe Swelling Verified 01/11/20 13:00 sertraline [From Zoloft] Allergy Severe Difficulty Verified 01/11/20 13:00 Breathing shellfish derived Allergy Severe Swelling Verified 01/11/20 13:00 latex Allergy Mild Rash Verified 01/11/20 13:00 - Home Medications Home Medications: Ambulatory Orders Amlodipine Besylate 10 mg PO DAILY 12/03/19 Calcitriol [Calcitriol -] 0.25 mcg PO WEEKLY 12/03/19 Ferric Citrate [Auryxia] 420 mg PO TID 12/03/19 Fluoxetine HCl 40 mg PO DAILY 12/03/19 Furosemide 80 mg PO UTDICT 12/03/19 Gabapentin 300 mg PO HS 12/03/19 Levothyroxine [Synthroid -] 50 mcg PO DAILY 12/03/19 Lisinopril 10 mg PO DAILY 12/03/19 Omeprazole 40 mg PO DAILY 12/03/19 Rifaximin [Xifaxan -] 550 mg PO BID 12/03/19 levETIRAcetam [Keppra -] 500 mg PO BID 12/03/19 Amlodipine Besylate [Norvasc -] 10 mg PO DAILY tablet 01/01/20 Review of Systems - Review of Systems Constitutional: reports: No Symptoms Eyes: reports: No Symptoms HENT: reports: No Symptoms Neck: reports: No Symptoms Cardiovascular: reports: No Symptoms Respiratory: reports: No Symptoms Gastrointestinal: reports: No Symptoms Genitourinary: reports: No Symptoms Breasts: reports: No Symptoms Reported Musculoskeletal: reports: No Symptoms Integumentary: reports: No Symptoms Neurological: reports: No Symptoms Endocrine: reports: No Symptoms Hematology/Lymphatic: reports: No Symptoms Psychiatric: reports: No Symptoms Nephrology Consult - Height Height: 5 ft 9 in - Weight Weight: 200 lb - BMI Body Mass Index (BMI): 29.5 - Lab Results CBC,BMP: CBC, BMP 01/11/20 14:04 01/11/20 14:04 Anion Gap: Anion Gap Anion Gap 7 MMOL/L (8-16) L 01/11/20 14:04 - Physical Examination Vital Signs: Vital Signs Temperature 98.2 F 01/11/20 13:01 Pulse Rate 82 01/11/20 13:01 Respiratory Rate 16 01/11/20 13:01 Blood Pressure 123/45 L 01/11/20 13:01 O2 Sat by Pulse Oximetry (%) 98 01/11/20 13:03 Constitutional: Yes: Well Nourished, No Distress Eyes: Yes: Conjunctiva Clear, EOM Intact HENT: Yes: Atraumatic, Normocephalic Neck: Yes: Supple, Trachea Midline Cardiovascular: Yes: Regular Rate and Rhythm Respiratory: Yes: Regular, CTA Bilaterally Gastrointestinal: Yes: Normal Bowel Sounds, Soft Musculoskeletal: Yes: WNL Extremities: Yes: WNL Edema: No Peripheral Pulses WNL: No Neurological: Yes: Alert, Oriented Psychiatric: Yes: Alert, Oriented Assessment/Plan IMPRESSION ESRD HTN ANEMIA H/O ICH PLAN admit will dialyze and transfuse today no heparin MV
[2020-01-11] MEDS ORDERED: SODIUM CHLORIDE 250 ML IV PRN (16:00)
[2020-01-11] MEDS ORDERED: ACETAMINOPHEN 325 MG TABLET (FP) PO PRN (17:15)
[2020-01-11] MEDS ORDERED: GABAPENTIN 300 MG CAPSULE PO SCH (22:00)
[2020-01-11] MEDS ORDERED: diphenhydrAMINE HCL 25 MG CAPSULE (FP) PO ONE (22:28)
[2020-01-11] MEDS: RIFAXIMIN 550 MG TABLET (UD) PO SCH (23:00)
[2020-01-11] MEDS: levETIRAcetam 500 MG TABLET (FP) PO SCH (23:01)
[2020-01-11 23:59] VITALS: BMI 28.0
[2020-01-12] MEDS ORDERED: hydrOXYzine PAMOATE 25 MG CAPSULE (FP) PO ONE ×3 (02:44→11:15)
[2020-01-12] MEDS ORDERED: LEVOTHYROXINE NA 50 MCG TABLET (FP) PO SCH (07:00)
[2020-01-12 07:27] LABS: HEMATOCRIT 24.2 % (35.4-49); HEMOGLOBIN 8.5 GM/dL (11.7-16.9); MCH 32.3 pg (25.7-33.7); MEAN CELL VOLUME 92.3 fl (80-96); PLATELET COUNT 54 K/MM3 (134-434); RBC 2.62 M/mm3 (4.00-5.60); RDW 19.2 % (11.9-15.9); WHITE BLOOD COUNT 2.7 K/mm3 (4.0-10.0)
[2020-01-12 08:09] LABS: ALBUMIN 2.6 g/dl (3.4-5.0); BILIRUBIN,TOTAL 1.2 mg/dL (0.2-1); BLOOD UREA NITROGEN 16.9 mg/dL (7-18); CALCIUM 7.6 mg/dL (8.5-10.1); CREATININE 4.5 mg/dL (0.55-1.3); POTASSIUM 3.5 mmol/L (3.5-5.1); TOT PROT 5.1 g/dl (6.4-8.2)
[2020-01-12] MEDS ORDERED: FLUoxetine HCL 20 MG CAPSULE PO SCH (10:00)
[2020-01-12] MEDS ORDERED: amLODIPine BESYLATE 10 MG TABLET (FP) PO SCH (10:00)
[2020-01-12] MEDS ORDERED: LISINOPRIL 10 MG TABLET (FP) PO SCH (10:00)
[2020-01-12] MEDS ORDERED: PANTOPRAZOLE 40 MG TABLET PO SCH (10:00)
[2020-01-12] MEDS ORDERED: PT OWN MED DRAWER 7, Y5N ONE (10:05)
[2020-01-12] MEDS: RIFAXIMIN 550 MG TABLET (UD) PO SCH (10:14)
[2020-01-12] MEDS: levETIRAcetam 500 MG TABLET (FP) PO SCH (10:14)
--- NOTE | 2020-01-12 10:23 | DS ---
Physical Examination Vital Signs: Vital Signs Temperature 98.8 F 01/12/20 05:00 Pulse Rate 88 01/12/20 05:00 Respiratory Rate 16 01/12/20 05:00 Blood Pressure 104/55 L 01/12/20 05:00 O2 Sat by Pulse Oximetry (%) 96 01/11/20 23:02 Labs: CBC, BMP 01/12/20 06:44 01/12/20 06:44 Discharge Summary Problems reviewed: Yes Reason For Visit: TRANSFUSION BLOOD DURING CURRENT HOSPITALIZTION Current Active Problems ESRD on dialysis (Acute) Transfusion of blood during current hospitalisation (Acute) Hospital Course: admitted with hgb 6 s/p transfusion comfortable no complaints dc home and follow up as outpatient Condition: Improved - Instructions Referrals: Rene Ward MD [Primary Care Provider] - Disposition: HOME - Home Medications Comprehensive Discharge Medication List: Ambulatory Orders Amlodipine Besylate 10 mg PO DAILY 12/03/19 Calcitriol [Calcitriol -] 0.25 mcg PO WEEKLY 12/03/19 Ferric Citrate [Auryxia] 420 mg PO TID 12/03/19 Fluoxetine HCl 40 mg PO DAILY 12/03/19 Gabapentin 300 mg PO HS 12/03/19 Levothyroxine [Synthroid -] 50 mcg PO DAILY 12/03/19 Lisinopril 10 mg PO DAILY 12/03/19 Omeprazole 40 mg PO DAILY 12/03/19 Rifaximin [Xifaxan -] 550 mg PO BID 12/03/19 levETIRAcetam [Keppra -] 500 mg PO BID 12/03/19 Amlodipine Besylate [Norvasc -] 10 mg PO DAILY tablet 01/01/20 Buspirone HCl [Buspar -] 5 mg PO BID 01/12/20
--- NOTE | 2020-01-12 10:23 | HP ---
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 fall after seizre or hypertensive hemorrhage) Cardiovascular: Yes: HTN, Hyperlipdemia Gastrointestinal: Yes: GI Bleed (multiple esophageal variceal bleed and banding before TIPS was placed at [facility]), Other (colon polyp removed by Dr De La Torre at [facility] ?) Hepatobiliary: Yes: Cirrhosis Renal/: Yes: Renal Inusuff, Hematuria, Hemodialysis Heme/Onc: Yes: Anemia Psych: Yes: Addictions (alcohol, previously cocaine and marijuana), Depression, Other (attempted suicide) Endocrine: Yes: Diabetes Mellitus - Past Surgical History Past Surgical History: Yes: Arthrosocopy (left knee), Colonoscopy, Upper Endoscopy - Smoking History Smoking history: Current every day smoker Have you smoked in the past 12 months: Yes Aproximately how many cigarettes per day: 5 If you are a former smoker, when did you quit?: 2010 - Alcohol/Substance Use Hx Alcohol Use: Yes History of Substance Use: reports: Cocaine (snorted), Marijuana - Social History ADL: Support Services 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 History of Recent Travel: No Home Medications - Allergies Allergies/Adverse Reactions: Allergies Allergy/AdvReac Type Severity Reaction Status Date / Time piperacillin Allergy Severe Swelling Verified 01/11/20 13:00 sertraline [From Zoloft] Allergy Severe Difficulty Verified 01/11/20 13:00 Breathing shellfish derived Allergy Severe Swelling Verified 01/11/20 13:00 latex Allergy Mild Rash Verified 01/11/20 13:00 - Home Medications Home Medications: Ambulatory Orders Amlodipine Besylate 10 mg PO DAILY 12/03/19 Calcitriol [Calcitriol -] 0.25 mcg PO WEEKLY 12/03/19 Ferric Citrate [Auryxia] 420 mg PO TID 12/03/19 Fluoxetine HCl 40 mg PO DAILY 12/03/19 Gabapentin 300 mg PO HS 12/03/19 Levothyroxine [Synthroid -] 50 mcg PO DAILY 12/03/19 Lisinopril 10 mg PO DAILY 12/03/19 Omeprazole 40 mg PO DAILY 12/03/19 Rifaximin [Xifaxan -] 550 mg PO BID 12/03/19 levETIRAcetam [Keppra -] 500 mg PO BID 12/03/19 Amlodipine Besylate [Norvasc -] 10 mg PO DAILY tablet 01/01/20 Buspirone HCl [Buspar -] 5 mg PO BID 01/12/20 Review of Systems - Review of Systems Cardiovascular: denies: Chest Pain Respiratory: denies: SOB, SOB on Exertion, Wheezing Gastrointestinal: denies: Abdominal Pain Physical Examination Vital Signs: Vital Signs Temperature 98.8 F 01/12/20 05:00 Pulse Rate 88 01/12/20 05:00 Respiratory Rate 16 01/12/20 05:00 Blood Pressure 104/55 L 01/12/20 05:00 O2 Sat by Pulse Oximetry (%) 96 01/11/20 23:02 Cardiovascular: Yes: Regular Rate and Rhythm Respiratory: Yes: Regular, CTA Bilaterally Gastrointestinal: Yes: Normal Bowel Sounds, Soft. No: Tenderness Edema: No Labs: CBC, BMP 01/12/20 06:44 01/12/20 06:44 Problem List - Problems (1) ESRD on dialysis Assessment/Plan: dialyzed d/w renal ok to dc Code(s): N18.6 - END STAGE RENAL DISEASE; Z99.2 - DEPENDENCE ON RENAL DIALYSIS (2) Transfusion of blood during current hospitalisation Assessment/Plan: hgb improved Code(s): [id number] - (3) Anemia Assessment/Plan: s/p prbc CBC WBC 2.7 K/mm3 (4.0-10.0) L 01/12/20 06:44 RBC 2.62 M/mm3 (4.00-5.60) L 01/12/20 06:44 Hgb 8.5 GM/dL (11.7-16.9) L 01/12/20 06:44 Hct 24.2 % (35.4-49) L D 01/12/20 06:44 MCV 92.3 fl (80-96) D 01/12/20 06:44 MCH 32.3 pg (25.7-33.7) 01/12/20 06:44 MCHC 35.0 g/dl (32.0-35.9) 01/12/20 06:44 RDW 19.2 % (11.9-15.9) H 01/12/20 06:44 Plt Count 54 K/MM3 (134-434) L D 01/12/20 06:44 MPV 10.0 fl (7.5-11.1) 01/12/20 06:44 Absolute Neuts (auto) 2.4 K/mm3 (1.5-8.0) 01/11/20 14:04 Neutrophils % 61.8 % (42.8-82.8) 01/11/20 14:04 Lymphocytes % 13.6 % (8-40) 01/11/20 14:04 Monocytes % 5.4 % (3.8-10.2) 01/11/20 14:04 Eosinophils % 18.5 % (0-4.5) H 01/11/20 14:04 Basophils % 0.7 % (0-2.0) 01/11/20 14:04 Nucleated RBC % 0 % (0-0) 01/11/20 14:04 Code(s): D64.9 - ANEMIA, UNSPECIFIED (4) Cirrhosis of liver Code(s): K74.60 - UNSPECIFIED CIRRHOSIS OF LIVER (5) Thrombocytopenia Assessment/Plan: chronic Code(s): D69.6 - THROMBOCYTOPENIA, UNSPECIFIED
--- NOTE | 2020-01-12 11:15 | PN ---
Progress Note (short form) - Note Progress Note: RENAL Pt is awake and alert denies complaints Last Vital Signs Temp Pulse Resp BP Pulse Ox 98.8 F 88 16 104/55 L 96 01/12/20 05:00 01/12/20 05:00 01/12/20 05:00 01/12/20 05:00 01/11/20 23:02 lungs clear cvs s1s2 rr abd soft ext no edema CBC, BMP 01/12/20 06:44 01/12/20 06:44 Current Medications Generic Name Dose Route Start Last Admin Trade Name Freq PRN Reason Stop Dose Admin Acetaminophen 650 mg 01/11/20 17:15 Tylenol - PO Q4H PRN PAIN 1-5 Amlodipine Besylate 10 mg 01/12/20 10:00 01/12/20 10:14 Norvasc - PO 10 mg DAILY DEV Administration Fluoxetine HCl 40 mg 01/12/20 10:00 Prozac - PO DAILY DEV Gabapentin 300 mg 01/11/20 22:00 01/11/20 23:01 Neurontin - PO Not Given HS DEV Hydroxyzine Pamoate 25 mg 01/12/20 11:15 Vistaril - PO 01/12/20 11:16 ONCE ONE Sodium Chloride 250 mls @ 3,000 mls/hr 01/11/20 16:00 Normal Saline - IV 01/12/20 16:00 PRN PRN Hypotension during Dialysis Levetiracetam 500 mg 01/11/20 22:00 01/12/20 10:14 Keppra - PO 500 mg BID DEV Administration Levothyroxine Sodium 50 mcg 01/12/20 07:00 01/12/20 06:11 Synthroid - PO 50 mcg DAILY@0700 DEV Administration Lisinopril 10 mg 01/12/20 10:00 01/12/20 10:14 Prinivil PO 10 mg DAILY DEV Administration Pantoprazole Sodium 40 mg 01/12/20 10:00 01/12/20 10:42 Protonix - PO 40 mg DAILY DEV Administration Rifaximin 550 mg 01/11/20 22:00 01/12/20 10:14 Xifaxan - PO 550 mg BID DEV Administration IMPRESSION esrd htn s/p gi bleeding has cirrhosis and esophageal varices PLAN ok to dc will follow up with outpatient GI MV
[2020-01-12 13:04] VITALS: BP 116/65; PULSE 78; TEMP 98.2
--- NOTE | 2020-01-13 10:23 | EKG ---
Test Reason : Blood Pressure : / mmHG Vent. Rate : 079 BPM Atrial Rate : 079 BPM P-R Int : 148 ms QRS Dur : 086 ms QT Int : 418 ms P-R-T Axes : 016 022 049 degrees QTc Int : 479 ms NORMAL SINUS RHYTHM NORMAL ECG WHEN COMPARED WITH ECG OF 30-DEC-2019 03:57, NO SIGNIFICANT CHANGE WAS FOUND Confirmed by Clark Ndiaye ([id number]) on 01/13/2020 10:23:21 AM Referred By: Confirmed By:Clark Ndiaye
== END 2020-01-12 12:25 | disposition home or self-care (01) | DRG 682 ==
LOC: JER 12:33 → JERBED 14:54 → INTOOBSV 14:54 → OBSVTOIN 17:16 → J7W 21:18
PROVIDERS: ADMIT Family Medicine; ATTEND Family Medicine
PROC: 5A1D70Z Performance of Urinary Filtration, Intermittent, Less than 6 Hours Per Day (ICD-10-PCS; principal; 2020-01-11)
PROC: 30233N1 Transfusion of Nonautologous Red Blood Cells into Peripheral Vein, Percutaneous Approach (ICD-10-PCS; 2020-01-11)
DX: I13.11 Hypertensive heart and chronic kidney disease without heart failure, with stage 5 chronic kidney disease, or end stage renal disease (principal); N18.6 End stage renal disease; Z99.2 Dependence on renal dialysis; F17.210 Nicotine dependence, cigarettes, uncomplicated; D63.1 Anemia in chronic kidney disease
CPT/HCPCS: 36415; 36430; 36511; 80053; 82272; 82607; 82728; 83540; 83550; 84443; 85025; 85027; 86803; 86850; 86900; 86901; 86922; 87340; 93005; 93010; 99285-25; G0378; P9038; P9058

== ENCOUNTER 2020-05-22 07:23 | Inpatient (IN) | payer OTHER ==
--- NOTE | 2020-05-22 07:38 | PDOC ---
History of Present Illness - General Chief Complaint: Abnormal Lab Results (Outside) Stated Complaint: low hemoglobin History Source: Patient Exam Limitations: No Limitations - History of Present Illness Initial Comments: 49 yo M with a hx of ESRD (//Mon HD, but missed his HD for ), cirrhosis s/p TIPS, alcohol abuse, GI bleed (prior endoscopy, colonoscopy, and pill endoscopy shows no obvious source), prior pRBC transfusion (14 units needed in past admission at [facility]), seizures, and recent discharge from [facility] on 05/13/2020 presents to the emergency department with abnormal lab value. Per the patient, the blood drawn on 05/16/2020 and reported today shows a hemoglobin of 6.4. The patient endorses having generalized weakness for the past 2 days with associative diarrhea. Per the patient, he has had multiple episodes of diarrhea throughout the day. Denies hematochezia and tarry stool. The patient recently had a pill endoscopy performed last week and per the patient was negative. He missed dialysis yesterday and was unable to complete it today due to the anemia. The patient denies the following: fever, chills, SOB, chest pain, dysuria, hematuria, abdominal pain, and leg pain/swelling. Past History - Medical History Allergies/Adverse Reactions: Allergies Allergy/AdvReac Type Severity Reaction Status Date / Time piperacillin Allergy Severe Swelling Verified 05/22/20 07:24 sertraline [From Zoloft] Allergy Severe Difficulty Verified 05/22/20 07:24 Breathing shellfish derived Allergy Severe Swelling Verified 05/22/20 07:24 latex Allergy Mild Rash Verified 05/22/20 07:24 Home Medications: Ambulatory Orders Calcitriol [Calcitriol -] 0.25 mcg PO Q2D 12/03/19 Gabapentin 300 mg PO HS 12/03/19 Levothyroxine [Synthroid -] 50 mcg PO DAILY 12/03/19 Omeprazole 40 mg PO DAILY 12/03/19 Buspirone HCl [Buspar -] 5 mg PO BID 01/12/20 Amlodipine Besylate [Norvasc -] 5 mg PO DAILY 30 Days #30 tablet 03/07/20 Rifaximin [Xifaxan -] 550 mg PO BID #60 tablet 03/09/20 Lisinopril [Prinivil] 10 mg PO DAILY 05/03/20 Fluoxetine HCl [Prozac] 10 mg PO DAILY 05/22/20 levETIRAcetam [Keppra -] 500 mg PO BID tablet 05/23/20 Naltrexone HCl 50 mg PO DAILY #30 tablet 05/27/20 Anemia: Yes Asthma: No Cancer: No Cardiac Disorders: No CVA: No COPD: No CHF: No Dementia: No Diabetes: No Dialysis: Yes (tues, thurs, Sat) GI Disorders: Yes (cirrhosis etoh abuse; esophageal varices) Disorders: Yes (ESRD, HD) HTN: Yes Hypercholesterolemia: No Kidney Stones: No Liver Disease: Yes (CIRRHOSIS OF LIVER) Psychiatric Problems: Yes (DEPRESSION, ANXEITY) Seizures: Yes Thyroid Disease: Yes - Surgical History Abdominal Surgery: No Appendectomy: No Cardiac Surgery: No Cholecystectomy: No GI Surgery: Yes (esophageal varicies) Lung Surgery: No Neurologic Surgery: No Orthopedic Surgery: Yes (right shoulder due to dislocation 6 years ago) - Reproductive History Testicular Surgery: No - Immunization History Immunization Up to Date: Yes - Psycho-Social/Smoking History Smoking Status: No Smoking History: Current every day smoker Have you smoked in the past 12 months: Yes Number of Cigarettes Smoked Daily: 5 Cigars Per Day: 0 Information on smoking cessation initiated: No 'Breaking Loose' booklet given: 02/22/18 - Substance Abuse Hx (Audit-C & DAST Scrn) How often the patient has a drink containing alcohol: Never Score: In Men: 4 or > Positive; In Women: 3 or > Positive: 0 Screen Result (Pos requires Nsg. Audit-10AR): Negative In the last yr the pt used illegal drug/Rx for NonMed reason: No Score: Yes response is considered Positive: 0 Screen Result (Positive result requires Nsg. DAST-10): Negative Review of Systems - Review of Systems Able to Perform ROS?: Yes Is the patient limited Vietnamese proficient: No Constitutional: Yes: Weakness. No: Chills, Diaphoresis, Fever HEENTM: No: Eye Pain, Ear Pain, Nose Pain, Throat Pain, Mouth Pain Respiratory: No: Cough, Shortness of Breath Cardiac (ROS): No: Chest Pain ABD/GI: Yes: Diarrhea. No: Constipated, Nausea, Rectal Bleeding, Vomiting, Tarry Stools : No: Dysuria, Hematuria Musculoskeletal: No: Back Pain, Joint Pain, Neck Pain Integumentary: No: Rash Neurological: No: Headache Psychiatric: No: Change in Appetite Endocrine: No: Unexplained Weight Loss Hematologic/Lymphatic: Yes: Anemia *Physical Exam - Vital Signs Last Vital Signs Temp Pulse Resp BP Pulse Ox 98.4 F 79 19 169/89 100 05/22/20 07:25 05/22/20 07:25 05/22/20 07:25 05/22/20 07:05/22/20 07:25 - Physical Exam General Appearance: Yes: Nourished, Appropriately Dressed. No: Apparent Distress, Intoxicated HEENT: positive: EOMI, CARYL, Normal Voice, Symmetrical, Pharynx Normal, Scleral Icterus (R), Scleral Icterus (L), Hearing Grossly Normal. negative: Pale Conjunctivae, Muffled/Hoarse voice, Excessive drooling Neck: positive: Trachea midline, Supple. negative: Tender, Lymphadenopathy (R), Lymphadenopathy (L), Tender lateral, Tender midline Respiratory/Chest: positive: Lungs Clear, Normal Breath Sounds. negative: Chest Tender, Respiratory Distress, Accessory Muscle Use, Crackles, Rales, Rhonchi, Stridor, Wheezing Cardiovascular: positive: Regular Rhythm, Regular Rate, S1, S2, Systolic Murmur (grade 1) Gastrointestinal/Abdominal: positive: Normal Bowel Sounds, Flat, Soft. negative: Tender, Distended, Guarding, Rebound Lymphatic: negative: Adenopathy Musculoskeletal: positive: Normal Inspection. negative: CVA Tenderness, Vertebral Tenderness Extremity: positive: Normal Capillary Refill, Normal Inspection, Normal Range of Motion. negative: Tender Integumentary: positive: Normal Color, Dry, Warm Neurologic: positive: Fully Oriented, Alert, Normal Mood/Affect ED Treatment Course - LABORATORY CBC & Chemistry Diagram: 05/22/20 08:30 05/22/20 08:30 Medical Decision Making - Medical Decision Making 05/22/20 11:50 49 yo M with a hx of ESRD (T//Sat HD, but missed his HD for ), cirrhosis s/p TIPS, alcohol abuse, GI bleed (prior endoscopy, colonoscopy, and pill endoscopy shows no obvious source), prior pRBC transfusion (14 units needed in past admission at [facility]), seizures, and recent discharge from [facility] on 05/13/2020 presents to the emergency department with abnormal lab value. Initial vitals: Initial Vital Signs Temp Pulse Resp BP Pulse Ox 98.4 F 79 19 169/89 100 05/22/20 07:25 05/22/20 07:25 05/22/20 07:25 05/22/20 07:25 05/22/20 07:25 Work up: patient presents to the emergency department with lab variance of anemia (6.4 hemoglobin) Patient will have repeat labs Laboratory Tests 05/22/20 05/22/20 05/22/20 08:30 08:30 08:30 WBC 3.4 L RBC 2.49 L Hgb 8.0 L Hct 23.8 L D MCV 95.5 D MCH 31.9 MCHC 33.4 RDW 17.7 H Plt Count 83 L D MPV 9.7 Absolute Neuts (auto) 2.5 Neutrophils % 74.1 Lymphocytes % 10.5 D Monocytes % 9.1 Eosinophils % 5.1 H Basophils % 1.2 Nucleated RBC % 0 PT with INR 12.90 INR 1.09 Sodium 139 Potassium 4.0 Chloride 110 H Carbon Dioxide 17 L Anion Gap 12 BUN 54.0 H Creatinine 6.7 H Est GFR (CKD-EPI)AfAm 10.37 Est GFR (CKD-EPI)NonAf 8.95 Random Glucose 76 Calcium 7.6 L Total Bilirubin 1.4 H AST 27 ALT 18 Alkaline Phosphatase 143 H Creatine Kinase 159 Creatine Kinase Index 1.3 CK-MB (CK-2) 2.2 Troponin I < 0.02 Total Protein 5.6 L Albumin 2.8 L Blood Type Antibody Screen 05/22/20 08:30 WBC RBC Hgb Hct MCV MCH MCHC RDW Plt Count MPV Absolute Neuts (auto) Neutrophils % Lymphocytes % Monocytes % Eosinophils % Basophils % Nucleated RBC % PT with INR INR Sodium Potassium Chloride Carbon Dioxide Anion Gap BUN Creatinine Est GFR (CKD-EPI)AfAm Est GFR (CKD-EPI)NonAf Random Glucose Calcium Total Bilirubin AST ALT Alkaline Phosphatase Creatine Kinase Creatine Kinase Index CK-MB (CK-2) Troponin I Total Protein Albumin Blood Type B POSITIVE Antibody Screen Negative Hemoglobin is 8, does not require transfusion at this time. CXR shows right lower lobe infiltrate consistent with HCAP. anaphyalxis allergy to zosyn - will use meropenem. Patient to be admitted for Health care associated pneumonia requiring antibiotics. Patient was endorsed to hospitalist team and accepted for admission. Discharge - Discharge Information Problems reviewed: Yes Clinical Impression/Diagnosis: Pneumonia Qualifiers: Pneumonia type: due to unspecified organism Laterality: unspecified laterality Lung location: unspecified part of lung Qualified Code(s): J18.9 - Pneumonia, unspecified organism - Follow up/Referral - Patient Discharge Instructions - Post Discharge Activity
[2020-05-22 07:42] VITALS: BMI 28.0
[2020-05-22 08:54] LABS: BASO % 1.2 % (0-2.0); EOS % 5.1 % (0-4.5); HEMATOCRIT 23.8 % (35.4-49); LYMPH % 10.5 % (8-40); MCH 31.9 pg (25.7-33.7); MCHC 33.4 g/dl (32.0-35.9); MEAN CELL VOLUME 95.5 fl (80-96); MEAN PLT VOLUME 9.7 fl (7.5-11.1); MONO % 9.1 % (3.8-10.2); NEUT % 74.1 % (42.8-82.8); PLATELET COUNT 83 K/MM3 (134-434); RBC 2.49 M/mm3 (4.00-5.60); RDW 17.7 % (11.9-15.9); WHITE BLOOD COUNT 3.4 K/mm3 (4.0-10.0)
[2020-05-22 09:00] LABS: INR 1.09 (0.83-1.09); PROTHROMBIN TIME (PATIENT) 12.9 SEC (9.7-13.0)
[2020-05-22] MEDS ORDERED: AZITHROMYCIN IVPB 500 MG in DEXTROSE 5%-WATER - 250 ML IVPB ONE (09:03)
[2020-05-22] MEDS ORDERED: VANCOMYCIN 1,000 MG in DEXTROSE 5%-WATER - 250 ML IVPB ONE (09:03)
[2020-05-22] MEDS ORDERED: MEROPENEM 500 MG in DEXTROSE 5%-WATER 100 ML IVPB ONE (09:03)
--- NOTE | 2020-05-22 09:14 | PDOC ---
Attending Attestation - Resident Resident Name: Solo Hung - ED Attending Attestation I have performed the following: I have examined & evaluated the patient, The case was reviewed & discussed with the resident, I agree w/resident's findings & plan, Exceptions are as noted - HPI HPI: 05/22/20 09:09 49 yo M ESRD on HD TThSa, GI bleed, cirrhosis sent from dialysis for low hgb found a dialysis center prior to being dialyzed today. Patient reports multiple episodes of diarrhea yesterday but denies abd pain. Denies CP and SOB. Denies cough. Also reports generalized weakness. Denies fevers. - Physicial Exam PE: 05/22/20 09:10 General: non-toxic appearing Abdomen: soft, nt nd, no rebound no guarding - Medical Decision Making 05/22/20 09:11 49 yo M sent for low hgb, no gross bleeding reported however patient endorses diarrhea yesterday, no abd tenderness on exam so doubt SBP. Plan: -labs -cxr -renal consult for dialysis as inpatient -admit This clinical encounter is taking place during a federal and state health care emergency attributable to the novel Bunch Virus pandemic. The Checkout Operator of the Department of Health and Human Services has declared, pursuant to the Public Health Service Act 319F-3 (42 U.S.C. 247d-6d), that a covered persons activities related to medical countermeasures against COVID-19 will be immune from liability under Federal and State law. 05/22/20 10:56 Pt/ found to have PNA on cxr. Will give vanc meropenem and azithro and send urine legionella and admit for PNA. Discharge - Discharge Information Problems reviewed: Yes Clinical Impression/Diagnosis: Pneumonia Qualifiers: Pneumonia type: due to unspecified organism Laterality: unspecified laterality Lung location: unspecified part of lung Qualified Code(s): J18.9 - Pneumonia, unspecified organism - Follow up/Referral Referrals: Rene Ward MD [Primary Care Provider] - - Patient Discharge Instructions - Post Discharge Activity
--- NOTE | 2020-05-22 09:17 | CONSULT ---
Consult Consult Specialty:: Nephrology Reason for Consultation:: ESRD - History of Present Illness Chief Complaint: I sent in for anemia History of Present Illness: Pt is a 49 year old male with pmhx of esrd, liver cirrhosis, etoh abuse, gi bleed, and epilepsy who I sent in for anemia. He was found to have a hg of 6.4 in HD. He also complains of shortness of breath. His hg was improved in the ER at 8. He however was found to have a PNA. He denies fever or chills. He does get a cough at times. He is due for HD today. 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 fall after seizre or hypertensive hemorrhage) Cardio/Vascular: Yes: HTN, Hyperlipdemia Gastrointestinal: Yes: Diverticulosis, GI Bleed (multiple esophageal variceal bleed and banding before TIPS was placed at [facility] [place]), Other (colon polyp tubular ad enoma 09/14) Hepatobiliary: Yes: Cirrhosis, Cholelithiasis Renal/: Yes: Renal Inusuff, Hemodialysis Psych: Yes: Addictions (alcohol, previously cocaine and marijuana), Depression, Other (attempted suicide) - Past Surgical History Past Surgical History: Yes: Arthrosocopy (left knee), Colonoscopy, Upper Endoscopy - Alcohol/Substance Use Hx Alcohol Use: Yes History of Substance Use: reports: Cocaine (snorted - none x 20 years), Marijuana - Smoking History Smoking history: Current every day smoker Have you smoked in the past 12 months: Yes Aproximately how many cigarettes per day: 5 If you are a former smoker, when did you quit?: 2010 - Social History Usual Living Arrangement: Alone 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: Support Services 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 History of Recent Travel: No Home Medications - Allergies Allergies/Adverse Reactions: Allergies Allergy/AdvReac Type Severity Reaction Status Date / Time piperacillin Allergy Severe Swelling Verified 05/22/20 07:24 sertraline [From Zoloft] Allergy Severe Difficulty Verified 05/22/20 07:24 Breathing shellfish derived Allergy Severe Swelling Verified 05/22/20 07:24 latex Allergy Mild Rash Verified 05/22/20 07:24 - Home Medications Home Medications: Ambulatory Orders Calcitriol [Calcitriol -] 0.25 mcg PO Q2D 01/07/20 Gabapentin 300 mg PO HS 12/03/19 Levothyroxine [Synthroid -] 50 mcg PO DAILY 12/03/19 Omeprazole 40 mg PO DAILY 12/03/19 Buspirone HCl [Buspar -] 5 mg PO BID 01/12/20 Amlodipine Besylate [Norvasc -] 5 mg PO DAILY 30 Days #30 tablet 03/07/20 Rifaximin [Xifaxan -] 550 mg PO BID #60 tablet 03/09/20 levETIRAcetam [Keppra -] 500 mg PO BID #60 tablet 03/09/20 Naltrexone HCl 50 mg PO DAILY #30 tablet 04/27/20 Lisinopril [Prinivil] 10 mg PO DAILY 05/03/20 Fluoxetine HCl [Prozac] 10 mg PO DAILY 05/22/20 Family Medical History Family History: Denies Review of Systems - Review of Systems Constitutional: reports: Malaise Eyes: reports: No Symptoms HENT: reports: No Symptoms Neck: reports: No Symptoms Cardiovascular: reports: No Symptoms Respiratory: reports: Cough, SOB on Exertion Gastrointestinal: reports: No Symptoms Genitourinary: reports: No Symptoms Musculoskeletal: reports: No Symptoms Integumentary: reports: No Symptoms Neurological: reports: No Symptoms Endocrine: reports: No Symptoms Hematology/Lymphatic: reports: No Symptoms Psychiatric: reports: No Symptoms Physical Exam Vital Signs: Vital Signs Temperature 98.4 F 05/22/20 07:25 Pulse Rate 79 05/22/20 07:25 Respiratory Rate 19 05/22/20 07:25 Blood Pressure 169/89 05/22/20 07:25 O2 Sat by Pulse Oximetry (%) 100 05/22/20 07:25 Constitutional: Yes: Calm Eyes: Yes: Sclera Icterus HENT: Yes: Atraumatic Cardiovascular: Yes: S1, S2 Respiratory: Yes: Wheezes Gastrointestinal: Yes: Soft Renal/: Yes: WNL Musculoskeletal: Yes: WNL Edema: No Neurological: Yes: Oriented Psychiatric: Yes: Oriented Labs: CBC, BMP 05/22/20 08:30 Imaging - Results Chest X-ray: Report Reviewed Problem List - Problems (1) Cirrhosis and chronic liver disease Code(s): K74.60 - UNSPECIFIED CIRRHOSIS OF LIVER; K76.9 - LIVER DISEASE, UNSPECIFIED (2) ESRD (end stage renal disease) on dialysis Code(s): N18.6 - END STAGE RENAL DISEASE; Z99.2 - DEPENDENCE ON RENAL DIALYSIS Assessment/Plan Current Medications Generic Name Dose Route Start Last Admin Trade Name Alexx PRN Reason Stop Dose Admin Meropenem 500 mg/ Dextrose 100 mls @ 200 mls/hr 05/22/20 09:03 IVPB 05/22/20 09:32 ONCE ONE Azithromycin 500 mg/ Dextrose 250 mls @ 250 mls/hr 05/22/20 09:03 IVPB 05/22/20 10:02 ONCE ONE Vancomycin HCl 1,000 mg/ 250 mls @ 166.667 mls/hr 05/22/20 09:03 Dextrose IVPB 05/22/20 10:32 ONCE ONE Impression 1. ESRD 2. htn 3. hx etoh abuse 4. liver cirrhosis with tips 5. anemia 6. melena/blood in stool 7. eosinophilia 8. PNA Plan - start abx - follow cultures - hg is better than in HD - HD today - epogen for anemia - check iron studies Dr Sparks
[2020-05-22 09:26] LABS: ALBUMIN 2.8 g/dl (3.4-5.0); ALK PHOS 143 U/L (45-117); ANION GAP 12 MMOL/L (8-16); BILIRUBIN,TOTAL 1.4 mg/dL (0.2-1); CALCIUM 7.6 mg/dL (8.5-10.1); CHLORIDE 110 mmol/L (98-107); CO2 17 mmol/L (21-32); CREATININE 6.7 mg/dL (0.55-1.3); GLUCOSE,RANDOM 76 mg/dL (74-106); SGOT/AST 27 U/L (15-37); SGPT/ALT 18 U/L (13-61); SODIUM 139 mmol/L (136-145); TOT PROT 5.6 g/dl (6.4-8.2)
[2020-05-22] MEDS ORDERED: AZITHROMYCIN IVPB 500 MG/250 ML BAG IVPB ONE (10:30)
[2020-05-22] MEDS ORDERED: VANCOMYCIN 1 GRAM (PRE-DOCKED) 1,000 MG/250 ML BAG IVPB ONE (10:30)
[2020-05-22] MEDS ORDERED: MEROPENEM 1 GM VIAL (RESTRICTED TO ID) IVPB ONE (10:31)
--- NOTE | 2020-05-22 11:51 | HP ---
CHIEF COMPLAINT: low hemoglobin PCP: Herbert HISTORY OF PRESENT ILLNESS: 49 year old male with known history of ESRD (), who missed his most recent dialysis session (Mon), history of liver cirrhosis sp TIPS, alcohol abuse, GIB sp colonoscopy, endoscopy and capsule endoscopy at [facility] with no obvious source of bleeding found); seizure disorder, who presents with low hemoglobin.Patient refuses to engage in conversation. From history obtained by ED staff, patient has been having dark and occasionally bloody stools. He also stated crampy abdominal pains, nausea and vomiting; denied fever or chills. At the ED hemoglobin was 6.4. CXR showing infiltrates. Recent Travel: unable to obtain (refuses to engage in conversation) PAST MEDICAL HISTORY: as above PAST SURGICAL HISTORY: as above Social History: Smoking: refuses to answer Alcohol: refuses to answer Drugs: refuses Family history: unable to obtain (refuses to engage) Allergies piperacillin Allergy (Severe, Verified 05/22/20 07:24) Swelling sertraline [From Zoloft] Allergy (Severe, Verified 05/22/20 07:24) Difficulty Breathing shellfish derived Allergy (Severe, Verified 05/22/20 07:24) Swelling latex Allergy (Mild, Verified 05/22/20 07:24) Rash HOME MEDICATIONS: Home Medications Medication Instructions Recorded Calcitriol [Calcitriol -] 0.25 mcg PO Q2D 12/03/19 Gabapentin 300 mg PO HS 12/03/19 Levothyroxine [Synthroid -] 50 mcg PO DAILY 12/03/19 Omeprazole 40 mg PO DAILY 12/03/19 Buspirone HCl [Buspar -] 5 mg PO BID 01/12/20 Amlodipine Besylate [Norvasc -] 5 mg PO DAILY 30 Days #30 tablet 03/07/20 Rifaximin [Xifaxan -] 550 mg PO BID #60 tablet 03/09/20 levETIRAcetam [Keppra -] 500 mg PO BID #60 tablet 03/09/20 Naltrexone HCl 50 mg PO DAILY #30 tablet 04/27/20 Lisinopril [Prinivil] 10 mg PO DAILY 05/03/20 Fluoxetine HCl [Prozac] 10 mg PO DAILY 05/22/20 REVIEW OF SYSTEMS - unable to obtain (refuses to answer) PHYSICAL EXAMINATION Vital Signs - 24 hr 05/22/20 05/22/20 07:25 11:05 Temperature 98.4 F 98.6 F Pulse Rate 79 Pulse Rate [ 83 Right Radial] Respiratory 19 16 Rate Blood Pressure 169/89 Blood Pressure 160/88 [Left Arm] O2 Sat by Pulse 100 100 Oximetry (%) GENERAL: Awake, alert, and fully oriented, in no acute distress. HEAD: Normal with no signs of trauma. EYES: Pupils equal, round and reactive to light, extraocular movements intact, sclera anicteric, conjunctiva clear. No lid lag. EARS, NOSE, THROAT: Ears normal, nares patent, oropharynx clear without exudates. Moist mucous membranes. NECK: Normal range of motion, supple without lymphadenopathy, JVD, or masses. LUNGS: Breath sounds equal, clear to auscultation bilaterally. No wheezes, and no crackles. No accessory muscle use. HEART: Regular rate and rhythm, normal S1 and S2 without murmur, rub or gallop. ABDOMEN: Soft, nontender, not distended, normoactive bowel sounds, no guarding, no rebound, no masses. No hepatomegaly or splenomegaly. MUSCULOSKELETAL: Normal range of motion at all joints. No CVA tenderness. UPPER EXTREMITIES: 2+ pulses, warm, well-perfused. No cyanosis. No clubbing. No peripheral edema. LOWER EXTREMITIES: 2+ pulses, warm, well-perfused. No calf tenderness. No peripheral edema. NEUROLOGICAL: Cranial nerves II-XII intact. Normal speech. PSYCHIATRIC: Cooperative. Good eye contact. Appropriate mood and affect. SKIN: Warm, dry, normal turgor, no rashes or lesions noted, normal capillary refill. Laboratory Results - last 24 hr 05/22/20 05/22/20 05/22/20 08:30 08:30 08:30 WBC 3.4 L RBC 2.49 L Hgb 8.0 L Hct 23.8 L D MCV 95.5 D MCH 31.9 MCHC 33.4 RDW 17.7 H Plt Count 83 L D MPV 9.7 Absolute Neuts (auto) 2.5 Neutrophils % 74.1 Lymphocytes % 10.5 D Monocytes % 9.1 Eosinophils % 5.1 H Basophils % 1.2 Nucleated RBC % 0 PT with INR 12.90 INR 1.09 Sodium 139 Potassium 4.0 Chloride 110 H Carbon Dioxide 17 L Anion Gap 12 BUN 54.0 H Creatinine 6.7 H Est GFR (CKD-EPI)AfAm 10.37 Est GFR (CKD-EPI)NonAf 8.95 Random Glucose 76 Calcium 7.6 L Total Bilirubin 1.4 H AST 27 ALT 18 Alkaline Phosphatase 143 H Creatine Kinase 159 Creatine Kinase Index 1.3 CK-MB (CK-2) 2.2 Troponin I < 0.02 Total Protein 5.6 L Albumin 2.8 L Blood Type Antibody Screen 05/22/20 08:30 WBC RBC Hgb Hct MCV MCH MCHC RDW Plt Count MPV Absolute Neuts (auto) Neutrophils % Lymphocytes % Monocytes % Eosinophils % Basophils % Nucleated RBC % PT with INR INR Sodium Potassium Chloride Carbon Dioxide Anion Gap BUN Creatinine Est GFR (CKD-EPI)AfAm Est GFR (CKD-EPI)NonAf Random Glucose Calcium Total Bilirubin AST ALT Alkaline Phosphatase Creatine Kinase Creatine Kinase Index CK-MB (CK-2) Troponin I Total Protein Albumin Blood Type B POSITIVE Antibody Screen Negative ASSESSMENT/PLAN: 1. anemia - by history patient has had similar episodes; work up was negative - will send hemoccult - to consider GI consultation however work up done previously negative (colonoscopy, endoscopy, capsule endoscopy) - Transfusion already ordered - serial hct - hemoccult - monitor vitals - IV PPI 2. ESRD on HD - noncompliant and missed last Monday's dialysis - Dr Sparks already informed of patient's admission - dialysis plans as per nephrology 3. Abnormal CXR - infiltrates noted - with allergy to zosyn. received meropenem, azithro, Vanco - will obtain opinion from ID re: continuation of antibiotics - Dr Jauregui of ID already informed of consultation by ED - at this time will hold off antibiotics and observe while off antibiotics pending ID input unless clinical condition indicates - legionella ag also ordered by ED staff - send blood cultures, UA 4. liver cirrhosis sp TIPS - clinically stable. repeat bili in am. cont close observation 5. SCD for DVT prophylaxis Visit type - Emergency Visit Emergency Visit: Yes ED Registration Date: 05/22/20 Care time: The patient presented to the Emergency Department on the above date and was hospitalized for further evaluation of their emergent condition. - New Patient This patient is new to me today: No - Critical Care Critical Care patient: No
--- NOTE | 2020-05-22 13:18 | CON.PULM ---
Consult Consult Specialty:: PULM/CCM Referred by:: Hospitalist Reason for Consultation:: SOB - History of Present Illness Chief Complaint: Diarhhea / SOB History of Present Illness: 49 M, ESRD (//Mon), liver cirrhosis S/P TIPS, alcohol abuse, GI Bleed, seizure D/O, and S/P recent colonoscopy/endoscopy and capsule endoscopy at [facility] with no obvious source of bleeding found but did she varices (this is according to the patient). Admitted via the ER due to diarrhea and SOB that started yesterday. Denies any outpatient ABX (is not 100% sure). No travel history or sick contacts. No hemoptysis or night sweats. 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 fall after seizre or hypertensive hemorrhage) Cardio/Vascular: Yes: HTN, Hyperlipdemia Pulmonary: Yes: Bronchitis. No: Asthma, Cancer, COPD, O2 Dependent, Pneumonia, Previously Intubated, Pulmonary Embolus, Pulmonary Fibrosis, Sleep Apnea Gastrointestinal: Yes: Diverticulosis, GI Bleed (multiple esophageal variceal bleed and banding before TIPS was placed at [facility]), Other (colon polyp tubular adenoma 09/14) Hepatobiliary: Yes: Cirrhosis, Cholelithiasis Renal/: Yes: Renal Inusuff, Hemodialysis Psych: Yes: Addictions (alcohol, previously cocaine and marijuana), Depression, Other (attempted suicide) - Past Surgical History Past Surgical History: Yes: Arthrosocopy (left knee), Colonoscopy, Upper Endoscopy - Alcohol/Substance Use Hx Alcohol Use: Yes History of Substance Use: reports: Cocaine (snorted - none x 20 years), Marijuana - Smoking History Smoking history: Current every day smoker Have you smoked in the past 12 months: Yes Aproximately how many cigarettes per day: 5 If you are a former smoker, when did you quit?: 2010 - Social History Usual Living Arrangement: Alone ADL: Support Services 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 History of Recent Travel: No Home Medications - Allergies Allergies/Adverse Reactions: Allergies Allergy/AdvReac Type Severity Reaction Status Date / Time piperacillin Allergy Severe Swelling Verified 05/22/20 07:24 sertraline [From Zoloft] Allergy Severe Difficulty Verified 05/22/20 07:24 Breathing shellfish derived Allergy Severe Swelling Verified 05/22/20 07:24 latex Allergy Mild Rash Verified 05/22/20 07:24 - Home Medications Home Medications: Ambulatory Orders Calcitriol [Calcitriol -] 0.25 mcg PO Q2D 12/03/19 Gabapentin 300 mg PO HS 12/03/19 Levothyroxine [Synthroid -] 50 mcg PO DAILY 12/03/19 Omeprazole 40 mg PO DAILY 12/03/19 Buspirone HCl [Buspar -] 5 mg PO BID 01/12/20 Amlodipine Besylate [Norvasc -] 5 mg PO DAILY 30 Days #30 tablet 03/07/20 Rifaximin [Xifaxan -] 550 mg PO BID #60 tablet 03/09/20 levETIRAcetam [Keppra -] 500 mg PO BID #60 tablet 03/09/20 Naltrexone HCl 50 mg PO DAILY #30 tablet 04/27/20 Lisinopril [Prinivil] 10 mg PO DAILY 05/03/20 Fluoxetine HCl [Prozac] 10 mg PO DAILY 05/22/20 Review of Systems - Review of Systems Constitutional: reports: Loss of Appetite, Malaise. denies: Chills, Night Sw eats, Unintentional Wgt. Loss, Weakness Eyes: reports: No Symptoms HENT: reports: No Symptoms Neck: reports: No Symptoms Cardiovascular: reports: Shortness of Breath. denies: Chest Pain, Edema, Palpi tations Respiratory: reports: Cough, SOB, SOB on Exertion. denies: Hemoptysis, Orthopnea, PND, Snoring, Wheezing Gastrointestinal: reports: Abdominal Pain, Diarrhea, Indigestion, Nausea, Rectal Bleeding. denies: Melena, Vomiting, Vomiting Blood Genitourinary: reports: No Symptoms Breasts: reports: No Symptoms Reported Musculoskeletal: reports: No Symptoms Integumentary: reports: No Symptoms Neurological: reports: No Symptoms Endocrine: reports: No Symptoms Hematology/Lymphatic: reports: No Symptoms Psychiatric: reports: No Symptoms Physical Exam Vital Sings: Vital Signs Temperature 98.6 F 05/22/20 11:05 Pulse Rate 83 05/22/20 11:05 Respiratory Rate 16 05/22/20 11:05 Blood Pressure 160/88 05/22/20 11:05 O2 Sat by Pulse Oximetry (%) 100 05/22/20 11:05 Constitutional: Yes: No Distress Eyes: Yes: Conjunctiva Clear, EOM Intact HENT: Yes: Atraumatic, Normocephalic Neck: Yes: Supple, Trachea Midline Cardiovascular: Yes: Regular Rate and Rhythm Respiratory: Yes: Cough, Diminished, Rhonchi. No: Accessory Muscle Use, On Nasal O2, Rales, SOB, SOB on Exertion, Stridor, Tachypnea, Wheezes ...Inspection: Yes: WNL ...Clubbing: No Gastrointestinal: Yes: Normal Bowel Sounds, Soft Renal/: Yes: WNL Musculoskeletal: Yes: WNL Extremities: Yes: WNL Edema: No Integumentary: Yes: WNL Neurological: Yes: WNL, Alert, Oriented ...Motor Strength: WNL Psychiatric: Yes: WNL, Alert, Oriented Labs: CBC, BMP 05/22/20 08:30 05/22/20 08:30 Imaging - Results Chest X-ray: Report Reviewed, Image Reviewed Cat Scan: Report Reviewed, Image Reviewed Problem List - Problems (1) Pneumonia Code(s): J18.9 - PNEUMONIA, UNSPECIFIED ORGANISM Qualifiers: Pneumonia type: due to unspecified organism Laterality: unspecified laterality Lung location: unspecified part of lung Qualified Code(s): J18.9 - Pneumonia, unspecified organism (2) GI bleed Code(s): K92.2 - GASTROINTESTINAL HEMORRHAGE, UNSPECIFIED (3) Melena Code(s): K92.1 - MELENA (4) Alcohol dependence Code(s): F10.20 - ALCOHOL DEPENDENCE, UNCOMPLICATED (5) Alcoholic hepatitis Code(s): K70.10 - ALCOHOLIC HEPATITIS WITHOUT ASCITES (6) Anemia Code(s): D64.9 - ANEMIA, UNSPECIFIED (7) CHF (congestive heart failure) Code(s): I50.9 - HEART FAILURE, UNSPECIFIED Qualifiers: Heart failure type: diastolic (8) CKD (chronic kidney disease) Code(s): N18.9 - CHRONIC KIDNEY DISEASE, UNSPECIFIED (9) ESRD (end stage renal disease) on dialysis Code(s): N18.6 - END STAGE RENAL DISEASE; Z99.2 - DEPENDENCE ON RENAL DIALYSIS (10) Essential hypertension Code(s): I10 - ESSENTIAL (PRIMARY) HYPERTENSION (11) History of cirrhosis of liver Code(s): Z87.19 - PERSONAL HISTORY OF OTHER DISEASES OF THE DIGESTIVE SYSTEM (12) Hypercholesterolemia Code(s): E78.0 - PURE HYPERCHOLESTEROLEMIA * DO NOT USE * (13) Insomnia Code(s): G47.00 - INSOMNIA, UNSPECIFIED (14) Leukopenia Code(s): D72.819 - DECREASED WHITE BLOOD CELL COUNT, UNSPECIFIED (15) Liver cirrhosis Code(s): K74.60 - UNSPECIFIED CIRRHOSIS OF LIVER Qualifiers: Hepatic cirrhosis type: alcoholic cirrhosis Ascites presence: without a scites Qualified Code(s): K70.30 - Alcoholic cirrhosis of liver without a scites (16) Nicotine dependence Code(s): F17.200 - NICOTINE DEPENDENCE, UNSPECIFIED, UNCOMPLICATED Qualifiers: Nicotine product type: cigarettes Substance use status: uncomplicated Ray lified Code(s): F17.210 - Nicotine dependence, cigarettes, uncomplicated (17) Psoriasis Code(s): L40.9 - PSORIASIS, UNSPECIFIED (18) S/P TIPS (transjugular intrahepatic portosystemic shunt) Code(s): Z95.828 - PRESENCE OF OTHER VASCULAR IMPLANTS AND GRAFTS (19) Melena Code(s): K92.1 - MELENA (20) Rectal bleeding Code(s): K62.5 - HEMORRHAGE OF ANUS AND RECTUM (21) History of esophageal varices with bleeding Code(s): Z87.19 - PERSONAL HISTORY OF OTHER DISEASES OF THE DIGESTIVE SYSTEM Assessment/Plan Noted empiric ABX were given (may be old RLL pleural disease and not an acute infection) Follow cultures Normal transfusion thresholds Follow CBC Supplemental O2 as needed No smoking PPI Noted ID evaluation was called Will follow Thank you. Dr Rob
[2020-05-22] MEDS ORDERED: PANTOPRAZOLE SODIUM 40 MG/100 ML BAG IVPB ONE (13:28)
[2020-05-22] MEDS: PANTOPRAZOLE SODIUM 40 MG VIAL IVPUSH SCH ×2 (13:29→21:17)
--- NOTE | 2020-05-22 13:32 | PN ---
Progress Note (short form) - Note Progress Note: ID consult dictated 49 yo man with liver cirrhosis with TIPS , esrd/on HD develped diarrhea on Monday- didnot go to HD, went there this am and sent to ED for anemia last HD was on Monday reports multiple frequent stools nonbloody with abdominal discomfort reports sob no fevers, no GI bleeding looks well cxray with chronic RLL changes, ?mild volume overload received vanco/meropenem/zith in ED doubt he has active pneumonia-his RLL findings go back to at least 2019- suggest holding further antibiotics at this time, looks well, not hypoxic- clinically not c/w pneumonia suspect his sob may be due to volume overload, has chronic RLL changes with effusion -suspect xray findings are chronic would get blood cultures with HD diarrhea with history of cdiff- get cdiff and stool studies repeat cxray in am after HD covid 19 swab pending zosyn allergy Problem List - Problems (1) Lung infiltrate on CT Code(s): R91.8 - OTHER NONSPECIFIC ABNORMAL FINDING OF LUNG FIELD (2) Volume overload Code(s): E87.70 - FLUID OVERLOAD, UNSPECIFIED (3) Anemia Code(s): D64.9 - ANEMIA, UNSPECIFIED (4) ESRD (end stage renal disease) on dialysis Code(s): N18.6 - END STAGE RENAL DISEASE; Z99.2 - DEPENDENCE ON RENAL DIALYSIS (5) Allergy to antibiotic Code(s): Z88.1 - ALLERGY STATUS TO OTHER ANTIBIOTIC AGENTS STATUS
--- NOTE | 2020-05-22 14:50 | EKG ---
Test Reason : Blood Pressure : / mmHG Vent. Rate : 077 BPM Atrial Rate : 077 BPM P-R Int : 144 ms QRS Dur : 092 ms QT Int : 436 ms P-R-T Axes : 025 022 051 degrees QTc Int : 493 ms NORMAL SINUS RHYTHM PROLONGED QT ABNORMAL ECG WHEN COMPARED WITH ECG OF 02-MAY-2020 02:41, NONSPECIFIC T WAVE ABNORMALITY NO LONGER EVIDENT IN LATERAL LEADS QT HAS SHORTENED Confirmed by YOLI JONES MD ([id number]) on 05/22/2020 2:50:06 PM Referred By: Confirmed By:YOLI JONES MD
[2020-05-22] MEDS ORDERED: SODIUM CHLORIDE 250 ML IV PRN (15:26)
[2020-05-22] MEDS ORDERED: EPOETIN ALFA 20,000 UNIT/1 ML VIAL IVPUSH ONE (15:30)
--- NOTE | 2020-05-22 16:53 | CONS ---
DATE OF CONSULTATION: DATE OF DICTATION: 05/22/2020 INFECTIOUS DISEASE CONSULTATION HISTORY OF PRESENT ILLNESS: This is a 49-year-old I saw in the ER. He has a history of liver cirrhosis with TIPS, end-stage renal disease on dialysis. He developed diarrhea on Monday with some diffuse abdominal discomfort. He did not go to hemodialysis. He went there this morning, was told he was quite anemic and sent to the ER. Last hemodialysis was on Monday. He reports multiple frequent stools nonbloody with abdominal discomfort. He reports shortness of breath without any cough. Has no fevers. Denies any blood in the stools or black tarry stools, and he looks well. He was seen in the ER this morning. I am asked to see him for possible pneumonia. The chest x-ray done and was given vancomycin, meropenem, and Zithromax in the ER. Patient has with him his papers from his last admission. He was admitted here apparently May 01 to May 07 for a GI bleeding and was transferred to [facility] and discharged there from the . While there he had endoscopy. He had an EGD that showed portal hypertension, a colonoscopy that showed nonbleeding diverticulosis and internal-external hemorrhoids. He had a capsule endoscopy, the results of which are pending. PAST MEDICAL HISTORY: Notable for history of hypertension, hyperlipidemia, end-stage renal disease on dialysis. He is unable to tell me how long he has been on dialysis. He has a history of liver cirrhosis felt secondary to alcohol. He is status post TIPS procedure. He has a history of a seizure disorder as well as apparently C. difficile, prior history of substance use with cocaine and marijuana. SURGICAL HISTORY: Notable for endoscopy in the past and arthroscopy of his knee. SOCIAL HISTORY: He lives alone, former substance user, and he is on disability. ALLERGIES: He is allergic to PIPERACILLIN, SERTRALINE, SHELLFISH, and LATEX. He did receive meropenem in the ER, looks like he has received cefepime in the past as well as Azactam and clindamycin. MEDICATION: Medications at home include: 1. Calcitriol. 2. Gabapentin. 3. Levothyroxine. 4. Omeprazole. 5. BuSpar. 6. Amlodipine. 7. Rifaximin. 8. Keppra. 9. Naltrexone. 10. Lisinopril. 11. Prozac. REVIEW OF SYSTEMS: Notable for the complaints of the frequent diarrhea. PHYSICAL EXAMINATION: General: He is awake and alert, he is ambulating without any difficulty, he is afebrile, he has no cough. Vital Signs: Temperature 98.6, pulse 83, blood pressure 160/88, respiratory rate is 16, his breathing is nonlabored, and he is saturating 100%. HEENT: Normocephalic. Eyes are anicteric. Neck: Supple. I was notable to look at his AV fistula, as he had a dressing intact on it. He denied any pain or drainage from that site. Heart: Regular rate and rhythm. Lungs: Clear to auscultation. He has diminished breath sounds at both bases. Abdomen: Soft, nontender. Extremities: Without edema. LABORATORY: His white count is 3.4, hemoglobin of 8, platelets are 83,000, which are all improved from his transfer in earlier April where his white count was 1.8 with a hemoglobin of 6.9 and platelets of 31,000. BUN and creatinine are 34 and 6.7. His COVID-19 is pending. Chest x-ray shows a question of a right lower lobe infiltrate, and he had an ultrasound of his abdomen done that showed a contracted gallbladder without evidence of any pericholecystic fluid. TIPS catheter identified. IMPRESSION: In summary, this is a 49-year-old man who I am asked to see for abnormal chest x-ray for possible pneumonia who dating back to at least August 2019 and perhaps earlier has evidence of a chronic right effusion with some accompanying atelectasis. I do not suspect he has an active pneumonia at this time, and I suspect his x-ray findings are a combination of both the chronic process and possibly some mild volume overload from the missed dialysis. I would suggest holding further antibiotics at this time. Would get blood cultures with dialysis. He does have a history of C. difficile. Would get C. difficile studies and stool studies as well given his complaints of diarrhea. Would repeat a chest x-ray in the morning after dialysis and obtain a COVID-19 as well. History of end-stage renal disease, for dialysis day. And 3rd problem, history of liver cirrhosis status post recent gastrointestinal bleed, with recent endoscopy. CORTEZ MONTANEZ M.D. [id number]
[2020-05-22] MEDS: levETIRAcetam 500 MG TABLET (FP) PO SCH (21:16)
[2020-05-22] MEDS ORDERED: MELATONIN 1 MG TABLET PO SCH (22:00)
[2020-05-22] MEDS ORDERED: diphenhydrAMINE HCL 25 MG CAPSULE (FP) PO ONE (23:23)
[2020-05-23 04:15] LABS: URINE APPEARANCE Clear; URINE BILIRUBIN Negative (NEGATIVE); URINE COLOR Yellow; URINE GLUCOSE (UA) Negative (NEGATIVE); URINE KETONE Negative (NEGATIVE); URINE LEUK ESTERASE 1+ (NEGATIVE); URINE NITRITE Negative (NEGATIVE); URINE PROTEIN 3+ (NEGATIVE); URINE UROBILINOGEN 0.2 mg/dL (0.2-1.0)
[2020-05-23 04:31] LABS: EPI CELLS 13.4 /uL (0-25.1); HYALINE CASTS 0.51 /uL (0-3.1); URINE BACTERIA 11.4 /uL (0-1359); URINE RBC 6.6 /uL (0-23.9); URINE WBC 41.3 /uL (0-25.8)
[2020-05-23] MEDS ORDERED: HYDROCORTISONE 0.5% TOPICAL OINTMENT TUBE TP ONE (04:53)
[2020-05-23] MEDS ORDERED: HYDROCORTISONE 0.5% TOPICAL CREAM 30 GM TUBE TP ONE (05:15)
--- NOTE | 2020-05-23 09:33 | DS ---
Physical Exam: SUBJECTIVE: Patient seen and examined He has no complaint of any shortness of breath fever chills nausea vomiting. Seen by infectious disease in the hospital and also surveillance analyst had hemodialysis done yesterday. OBJECTIVE: Vital Signs Period Temp Pulse Resp BP Sys/Horton Pulse Ox Last 24 Hr 98.0 F-98.6 F 70-92 16-18 130-165/59-88 98-100 PHYSICAL EXAM GENERAL: The patient is awake, alert, and fully oriented, in no acute distress. HEAD: Normal with no signs of trauma. EYES: PERRL, extraocular movements intact, sclera anicteric, conjunctiva clear. ENT: Ears normal, nares patent, oropharynx clear without exudates, moist mucous membranes. NECK: Trachea midline, full range of motion, supple. LUNGS: Breath sounds equal, clear to auscultation bilaterally, no wheezes, no crackles, no accessory muscle use. HEART: Regular rate and rhythm, S1, S2 without murmur, rub or gallop. ABDOMEN: Soft, nontender, nondistended, normoactive bowel sounds, no guarding, no rebound, no hepatosplenomegaly, no masses. EXTREMITIES: 2+ pulses, warm, well-perfused, no edema. NEUROLOGICAL: Cranial nerves II through XII grossly intact. Normal speech, gait not observed. PSYCH: Normal mood, normal affect. SKIN: Warm, dry, normal turgor, no rashes or lesions noted. LABS Laboratory Results - last 24 hr 05/22/20 05/22/20 05/23/20 08:30 08:30 02:00 Creatine Kinase Index 1.3 CK-MB (CK-2) 2.2 Urine Color Yellow Urine Appearance Clear Urine pH 7.0 Ur Specific [place] 1.020 Urine Protein 3+ H Urine Glucose (UA) Negative Urine Ketones Negative Urine Blood Trace-intact Urine Nitrite Negative Urine Bilirubin Negative Urine Urobilinogen 0.2 Ur Leukocyte Esterase 1+ H Urine WBC (Auto) 41.3 Urine RBC (Auto) 6.6 Urine Casts (Auto) 0.51 U Epithel Cells (Auto) 13.4 Urine Bacteria (Auto) 11.4 Blood Type B POSITIVE Antibody Screen Negative HOSPITAL COURSE: Date of Admission:05/22/20 Date of Discharge: 05/23/20 This is a 49-year-old male with past med history of hemodialysis on dialysis 3 times a week also alcohol abuse and liver cirrhosis history of status post TIPS also upper and lower endoscopy colonoscopy for anemia has been worked up in the past. Came to the hospital with possible pneumonia and also anemia he was given IV antibiotic in the hospital. He was admitted and had hemodialysis done. Patient was seen by infectious disease and they recommended patient does not need any antibiotics. This morning patient is comfortable denies any symptom of shortness of breath fever or chills. So I would like to discharge him home today to follow-up with his medical doctor for anemia work-up and also he needs to follow-up with dialysis place with 3 times a week dialysis and also is going to make an appointment with him with surveillance analyst. Minutes to complete discharge: 35 Discharge Summary Problems reviewed: Yes Reason For Visit: PNEUMONIA Current Active Problems Pneumonia (Acute) Condition: Improved - Instructions Diet, Activity, Other Instructions: Activity as tolerated patient needs to follow-up with his surveillance analyst for his hemodialysis 3 times a week. He does not need antibiotics. Referrals: Rene Ward MD [Primary Care Provider] - Disposition: HOME - Home Medications Comprehensive Discharge Medication List: Ambulatory Orders Calcitriol [Calcitriol -] 0.25 mcg PO Q2D 12/03/19 Gabapentin 300 mg PO HS 12/03/19 Levothyroxine [Synthroid -] 50 mcg PO DAILY 12/03/19 Omeprazole 40 mg PO DAILY 12/03/19 Buspirone HCl [Buspar -] 5 mg PO BID 01/12/20 Amlodipine Besylate [Norvasc -] 5 mg PO DAILY 30 Days #30 tablet 03/07/20 Rifaximin [Xifaxan -] 550 mg PO BID #60 tablet 03/09/20 Naltrexone HCl 50 mg PO DAILY #30 tablet 04/27/20 Lisinopril [Prinivil] 10 mg PO DAILY 05/03/20 Fluoxetine HCl [Prozac] 10 mg PO DAILY 05/22/20 levETIRAcetam [Keppra -] 500 mg PO BID tablet 05/23/20 This patient is new to me today: Yes Date on this admission: 05/23/20 Emergency Visit: Yes ED Registration Date: 05/22/20 Care time: The patient presented to the Emergency Department on the above date and was hospitalized for further evaluation of their emergent condition. Critical Care patient: No - Discharge Referral Referred to [facility] No
[2020-05-23] MEDS: levETIRAcetam 500 MG TABLET (FP) PO SCH (09:40)
[2020-05-23 11:07] VITALS: PULSE 75
[2020-05-23] MEDS: PANTOPRAZOLE SODIUM 40 MG VIAL IVPUSH SCH (11:12)
[2020-05-23 11:18] VITALS: BP 151/88; TEMP 98
== END 2020-05-23 12:23 | disposition home or self-care (01) | DRG 682 ==
LOC: JER 07:23 → JERBED 10:05 → J5S 19:00
PROVIDERS: ADMIT Internal Medicine; ATTEND Internal Medicine
PROC: 5A1D70Z Performance of Urinary Filtration, Intermittent, Less than 6 Hours Per Day (ICD-10-PCS; principal; 2020-05-22)
DX: I12.0 Hypertensive chronic kidney disease with stage 5 chronic kidney disease or end stage renal disease (principal); N18.6 End stage renal disease; J98.11 Atelectasis; D64.9 Anemia, unspecified; F32.9 Major depressive disorder, single episode, unspecified; F41.9 Anxiety disorder, unspecified; G40.909 Epilepsy, unspecified, not intractable, without status epilepticus; F17.210 Nicotine dependence, cigarettes, uncomplicated; Z99.2 Dependence on renal dialysis; Z91.15 Patient's noncompliance with renal dialysis; L40.9 Psoriasis, unspecified; R91.8 Other nonspecific abnormal finding of lung field; E87.70 Fluid overload, unspecified; K70.30 Alcoholic cirrhosis of liver without ascites; F10.20 Alcohol dependence, uncomplicated; F14.10 Cocaine abuse, uncomplicated; F12.10 Cannabis abuse, uncomplicated
CPT/HCPCS: 36415; 71045-TC-FY; 76705-TC; 80053; 81003; 82550; 82553; 84484; 85025; 85610; 86850; 86900; 86901; 87040; 87899; 93005; 93010; 99285-25; J0885; U0003

== ENCOUNTER 2020-06-27 11:58 | Emergency (ER) | payer OTHER ==
[2020-06-27 12:08] VITALS: BP 135/69; PULSE 80; TEMP 98.3; BMI 25.0
--- NOTE | 2020-06-27 12:26 | PDOC ---
History of Present Illness - General Chief Complaint: Injury Stated Complaint: SKIN INJURY Time Seen by Provider: 06/27/20 12:14 History Source: Patient Exam Limitations: No Limitations - History of Present Illness Initial Comments: 06/27/20 12:56 CHIEF COMPLAINT: Bleeding HISTORY OF PRESENT ILLNESS: This is a 49-year-old male with a history of EtOH abuse, ESRD on HD, liver failure s/p TIPS and listed for transplant, and recent prolonged hospitalization at [facility] for variceal bleed who presents complaining of bleeding from a scab on his face. He states that he was unable to undergo HD today and was sent to the ED for evaluation. On arrival, there is no active bleeding from a small, superficial abrasion above the lip. The patient denies GI bleeding, SOB, fevers, or any other symptoms. Vital signs on arrival are unremarkable. REVIEW OF SYSTEMS: GENERAL/CONSTITUTIONAL: No fever or chills. No weakness. HEAD, EYES, EARS, NOSE AND THROAT: No change in vision. No change in hearing. No sore throat. CARDIOVASCULAR: Reports chest pain. No shortness of breath. RESPIRATORY: Denies cough, hemoptysis. SKIN: See HPI. NEUROLOGIC: No headache, vertigo, loss of consciousness, or change in strength/sensation. ALLERGIC/IMMUNOLOGIC: No hives or skin allergy. PHYSICAL EXAM: GENERAL: Awake, alert, and oriented to person/place/time, in no acute distress. HEAD: No signs of trauma, normocephalic, atraumatic. No epistaxis. EYES: PERRLA, EOMI, sclera anicteric, conjunctiva clear. LUNGS: No distress, speaks in full sentences, clear to auscultation bilaterally. HEART: Regular rate and rhythm, normal S1 and S2, no murmurs appreciated, peripheral pulses normal and equal bilaterally. ABDOMEN: Soft, nontender, normoactive bowel sounds. No guarding, no rebound. No masses. EXTREMITIES: RUE fistula +bruit +thrill. Normal sensation in fingers. Cap refill <2 sec. NEUROLOGICAL: Cranial nerves II through XII grossly intact. Normal speech, normal gait, no focal sensorimotor deficits. SKIN: Warm, dry, normal turgor. Tiny superficial abrasion above lip, no active bleeding. Past History - Medical History Allergies/Adverse Reactions: Allergies Allergy/AdvReac Type Severity Reaction Status Date / Time piperacillin Allergy Severe Swelling Verified 06/27/20 11:59 sertraline [From Zoloft] Allergy Severe Difficulty Verified 06/27/20 11:59 Breathing shellfish derived Allergy Severe Swelling Verified 06/27/20 11:59 latex Allergy Mild Rash Verified 06/27/20 11:59 tazobactam [From Zosyn] Allergy Difficulty Verified 06/27/20 12:04 Breathing Home Medications: Ambulatory Orders Calcitriol [Calcitriol -] 0.25 mcg PO Q2D 12/03/19 Gabapentin 300 mg PO HS 12/03/19 Levothyroxine [Synthroid -] 50 mcg PO DAILY 12/03/19 Omeprazole 40 mg PO DAILY 12/03/19 Buspirone HCl [Buspar -] 5 mg PO BID 01/12/20 Amlodipine Besylate [Norvasc -] 5 mg PO DAILY 30 Days #30 tablet 03/07/20 Rifaximin [Xifaxan -] 550 mg PO BID #60 tablet 03/09/20 Lisinopril [Prinivil] 10 mg PO DAILY 05/03/20 Fluoxetine HCl [Prozac] 40 mg PO DAILY 05/22/20 levETIRAcetam [Keppra -] 500 mg PO BID tablet 05/23/20 Diphenhydramine HCl 50 mg PO PRN PRN 06/06/20 Folic Acid 1 mg PO DAILY 06/06/20 Lactulose 10 gm PO ASDIR 06/06/20 Thiamine HCl [B-1] 100 mg PO DAILY 06/06/20 Anemia: Yes Asthma: No Cancer: No Cardiac Disorders: No CVA: No COPD: No CHF: No Dementia: No Diabetes: No Dialysis: Yes (tues, thurs, Sat) GI Disorders: Yes (cirrhosis etoh abuse; esophageal varices) Disorders: No HTN: Yes Hypercholesterolemia: No Kidney Stones: No Liver Disease: Yes (CIRRHOSIS OF LIVER) Psychiatric Problems: Yes (DEPRESSION, ANXEITY) Seizures: Yes Thyroid Disease: Yes - Surgical History Abdominal Surgery: No Appendectomy: No Cardiac Surgery: No Cholecystectomy: No GI Surgery: Yes (esophageal varicies) Lung Surgery: No Neurologic Surgery: No Orthopedic Surgery: Yes (right shoulder due to dislocation 6 years ago) - Reproductive History Testicular Surgery: No - Immunization History Immunization Up to Date: Yes - Psycho-Social/Smoking History Smoking Status: No Smoking History: Current every day smoker Have you smoked in the past 12 months: No Number of Cigarettes Smoked Daily: 20 If you are a former smoker, when did you quit?: 2010 Cigars Per Day: 0 Information on smoking cessation initiated: Yes 'Breaking Loose' booklet given: 05/22/20 - Substance Abuse Hx (Audit-C & DAST Scrn) How often the patient has a drink containing alcohol: Never Score: In Men: 4 or > Positive; In Women: 3 or > Positive: 0 Screen Result (Pos requires Nsg. Audit-10AR): Negative In the last yr the pt used illegal drug/Rx for NonMed reason: No Score: Yes response is considered Positive: 0 Screen Result (Positive result requires Nsg. DAST-10): Negative *Physical Exam - Vital Signs Last Vital Signs Temp Pulse Resp BP Pulse Ox 98.3 F 80 18 135/69 98 06/27/20 12:00 06/27/20 12:00 06/27/20 12:00 06/27/20 12:00 06/27/20 12:00 Medical Decision Making - Medical Decision Making 06/27/20 13:01 A/P: 49-year-old male with renal/hepatic disease presenting with bleeding from superficial laceration, resolved. -Discussed with Dr. Sparks and [facility] HD - patient may return now for dialysis -Patient refuses labs here but will have them at HD Discharge - Discharge Information Problems reviewed: Yes Clinical Impression/Diagnosis: Superficial abrasion Disposition: HOME - Admission No - Follow up/Referral Referrals: Rene Ward MD [Primary Care Provider] - - Patient Discharge Instructions Patient Printed Discharge Instructions: DI for Abrasion Additional Instructions: -Try not to touch your face -If bleeding resumes, apply pressure -Proceed directly to [facility] dialysis -Return here for any new or concerning symptoms - Post Discharge Activity
== END 2020-06-27 14:30 | disposition home or self-care (01) ==
LOC: JER 11:58
DX: S00.81XA Abrasion of other part of head, initial encounter (principal)
CPT/HCPCS: 99284-25

== ENCOUNTER 2020-07-05 12:37 | Emergency (ER) | payer OTHER ==
--- NOTE | 2020-07-05 12:47 | PDOC ---
History of Present Illness - General Chief Complaint: Pain Stated Complaint: ABD PAIN Time Seen by Provider: 07/05/20 12:47 History Source: Patient, Old Records Exam Limitations: No Limitations - History of Present Illness Initial Comments: 07/05/20 12:47 Randy Martinez is a 49M with PMH HTN, HLD, cirrhosis 2/2 EtOH s/p TIPS, ESRD on [facility], BIBA for lower GI bleeding and abdominal pain. Per EMS, patient evaluated at home complaining of abdominal pain and rectal bleeding, smells of alcohol. Patient reports that he has missed dialysis for the last week, and that he has h ad multiple episodes of bloody diarrhea with abdominal pain for the last 3 days. Patient has had these symptoms before and was admitted to [facility]. Has had EGD that shows gastric varices and ulcers. Abdominal pain associated with nausea and vomiting, has been having diarrhea for a few days. Poor PO intake, has not eaten in the last few days. Notably, denies all alcohol/drug/tobacco use. Denies chest pain, fever, chills, cough, SOB, urinary sx. Denies recent syncope or fall. Past History - Medical History Allergies/Adverse Reactions: Allergies Allergy/AdvReac Type Severity Reaction Status Date / Time piperacillin Allergy Severe Swelling Verified 07/06/20 03:51 sertraline [From Zoloft] Allergy Severe Difficulty Verified 07/06/20 03:51 Breathing shellfish derived Allergy Severe Swelling Verified 07/06/20 03:51 latex Allergy Mild Rash Verified 07/06/20 03:51 tazobactam [From Zosyn] Allergy Difficulty Verified 07/06/20 03:51 Breathing Home Medications: Ambulatory Orders Calcitriol [Calcitriol -] 0.25 mcg PO Q2D 12/03/19 Gabapentin 300 mg PO HS 12/03/19 Levothyroxine [Synthroid -] 50 mcg PO DAILY 12/03/19 Omeprazole 40 mg PO DAILY 12/03/19 Buspirone HCl [Buspar -] 5 mg PO BID 01/12/20 Amlodipine Besylate [Norvasc -] 5 mg PO DAILY 30 Days #30 tablet 03/07/20 Rifaximin [Xifaxan -] 550 mg PO BID #60 tablet 03/09/20 Lisinopril [Prinivil] 10 mg PO DAILY 05/03/20 Fluoxetine HCl [Prozac] 40 mg PO DAILY 05/22/20 levETIRAcetam [Keppra -] 500 mg PO BID tablet 05/23/20 Diphenhydramine HCl 50 mg PO PRN PRN 06/06/20 Folic Acid 1 mg PO DAILY 06/06/20 Lactulose 10 gm PO ASDIR 06/06/20 Thiamine HCl [B-1] 100 mg PO DAILY 06/06/20 Anemia: Yes Asthma: No Cancer: No Cardiac Disorders: No CVA: No COPD: No CHF: No Dementia: No Diabetes: No Dialysis: Yes (tues, thurs, Sat) GI Disorders: Yes (cirrhosis etoh abuse; esophageal varices) Disorders: No HTN: Yes Hypercholesterolemia: No Kidney Stones: No Liver Disease: Yes (CIRRHOSIS OF LIVER) Psychiatric Problems: Yes (DEPRESSION, ANXEITY) Seizures: Yes Thyroid Disease: Yes - Surgical History Abdominal Surgery: No Appendectomy: No Cardiac Surgery: No Cholecystectomy: No GI Surgery: Yes (esophageal varicies) Lung Surgery: No Neurologic Surgery: No Orthopedic Surgery: Yes (right shoulder due to dislocation 6 years ago) - Reproductive History Testicular Surgery: No - Immunization History Immunization Up to Date: Yes - Psycho-Social/Smoking History Smoking Status: No Smoking History: Current every day smoker Have you smoked in the past 12 months: No Number of Cigarettes Smoked Daily: 20 If you are a former smoker, when did you quit?: 2010 Cigars Per Day: 0 'Breaking Loose' booklet given: 05/22/20 Review of Systems - Review of Systems Able to Perform ROS?: Yes Constitutional: No: Symptoms Reported HEENTM: No: Blurred Vision, Double Vision, Nose Pain, Throat Pain Respiratory: No: Cough, Shortness of Breath, SOB with Exertion, SOB at Rest Cardiac (ROS): No: Chest Pain, Irregular Heart Rate, Lightheadedness, Palpitations, Syncope ABD/GI: Yes: Nausea, Poor Appetite, Poor Fluid Intake, Rectal Bleeding, Vomiting. No: Constipated, Diarrhea : No: Burning, Dysuria, Discharge, Hematuria, Incontinence Musculoskeletal: No: Symptoms Reported Integumentary: Yes: Lumps, Other (bleeding) Neurological: Yes: Weakness. No: Numbness, Paresthesia Endocrine: No: Symptoms Reported Hematologic/Lymphatic: No: Symptoms Reported All Other Systems: Reviewed and Negative *Physical Exam - Physical Exam General Appearance: Yes: Nourished, Appropriately Dressed, Alcohol on Breath, Obese, Other (resting in bed, frequently standing and ambulating to bathroom without issues). No: Apparent Distress HEENT: positive: EOMI, CARYL, Normal Voice, Symmetrical, Pharynx Normal, Hearing Grossly Normal. negative: Normal ENT Inspection (has multiple bleeding and clotted scratches to top of head without skull deformity), Scleral Icterus (R), Scleral Icterus (L), Pharyngeal Erythema, Tonsillar Exudate, Tonsillar Erythema Neck: positive: Trachea midline, Normal Thyroid, Supple. negative: Tender, Lymphadenopathy (R), Lymphadenopathy (L), Tender lateral, Tender midline Respiratory/Chest: positive: Lungs Clear, Normal Breath Sounds. negative: Chest Tender, Accessory Muscle Use, Labored Respiration, Crackles, Rales, Rhonchi, Stridor, Wheezing Cardiovascular: positive: Regular Rhythm, Regular Rate Gastrointestinal/Abdominal: positive: Normal Bowel Sounds, Flat, Soft. negative: Tender, Organomegaly, Pulsatile Mass, Guarding, Rebound Rectal Exam: positive: normal exam, NL Prostate, normal rectal tone, heme positive stool, other (no julissa blood or tenderness, some irritation to anus). negative: decreased tone, hemorrhoids Musculoskeletal: positive: Normal Inspection. negative: CVA Tenderness, Decreased Range of Motion Extremity: positive: Normal Capillary Refill, Normal Inspection, Normal Range of Motion, Pelvis Stable. negative: Tender, Delayed Capillary Refill, Pedal Edema, Swelling Integumentary: positive: Normal Color, Dry, Warm, Other (excoriations and abrasions to top of head, blood under fingertips. palpable fistula to the RUE.) Neurologic: positive: senior manager asset protection II-XII NML intact, Fully Oriented, Alert, Normal Mood/Affect, Normal Response, Motor Strength 5/5, Finger to Nose (normal). negative: Facial Droop, Numbness ED Treatment Course - LABORATORY CBC & Chemistry Diagram: 07/05/20 01:45 07/05/20 01:45 Medical Decision Making - Medical Decision Making 07/05/20 13:22 Patient has known history of hepatic disease and ESRD on HD, but has missed HD for at least a week and is now complaining of abdominal pain and rectal bleeding in the setting of obvious alcohol intoxication. Ddx includes variceal bleeding vs. electrolyte disturbance vs. hyperammonemia vs. alcohol intoxication/withdrawal. Ordered CMP/CBC/CP/ECG/CXR/UA/UC/ammonia/EtOH/lactate/FOBT/lipase for comprehensive evaluation. CT head/c-spine given bleeding to head with alcohol intoxication, patient has known history of EtOH-related falls. Giving protonix for GI bleeding and abdominal pain. ECG shows NSR with HR 86, QTc 543, no JACQUI/D or TWI, no peaked T waves. CXR shows R base atelectasis and metal foreign body in right shoulder. Labs notable for: - Hgb 9.9 - Coags WNL - Cr 5.0, has been as high as 8.7 - AST 41 - ALT 50 - AP 162 - FOBT positive - EtOH 306, patient denies alcohol use 07/05/20 14:17 Patient is doing well at this time, observed walking back and forth to bathroom without incident. Stools in ED are mucous and bloody. Given patient has not had HD in a week and has lower GI bleeding, needs admission for nephro and GI evaluation. Still pending CT head and c-spine. 07/05/20 16:[address] Patient [address] to get CT scan, wants to go home. Discussed with patient that he has not had dialysis in a week and had bleeding wounds from his head and needs a CT scan. Patient also likely needs dialysis and further workup for his lower GI bleeding. Patient reports that he is tired of always going to dialysis every day and is "tired of being tired." Discussed barriers to his care, wants counseling. Denies alcohol use and is not admitting to drinking. Discussed options with patient that we can help with his issues if he lets us, including social work evaluation and outpatient counseling. Patient agreed to CT and then refused several times in a row, last time citing worsening abdominal pain. Unable to give Ofirmev or NSAIDs 2/2 hepatic and renal disease, given 2mg IV morphine. Patient immediately removed IV and walked out of ED after receiving morphine. Discharge - Discharge Information Problems reviewed: Yes Clinical Impression/Diagnosis: Bloody stools, Eloped from emergency department Abdominal pain Qualifiers: Abdominal location: generalized Qualified Code(s): R10.84 - Generalized abdominal pain Condition: Stable Disposition: ELOPED - Follow up/Referral Referrals: Rene Ward MD [Primary Care Provider] - - Patient Discharge Instructions - Post Discharge Activity
[2020-07-05 13:04] VITALS: BP 166/89; PULSE 89; TEMP 97.9; BMI 27.3
[2020-07-05] MEDS ORDERED: PANTOPRAZOLE SODIUM 40 MG VIAL IVPUSH ONE (13:06)
[2020-07-05] MEDS ORDERED: PANTOPRAZOLE SODIUM 40 MG/100 ML BAG IVPB ONE (13:21)
[2020-07-05 14:28] LABS: BASO % 1.2 % (0-2.0); EOS % 1.7 % (0-4.5); HEMATOCRIT 28.4 % (35.4-49); HEMOGLOBIN 9.9 GM/dL (11.7-16.9); LYMPH % 14.8 % (8-40); MCH 30.6 pg (25.7-33.7); MCHC 34.9 g/dl (32.0-35.9); MEAN CELL VOLUME 87.7 fl (80-96); MEAN PLT VOLUME 9.4 fl (7.5-11.1); MONO % 3.6 % (3.8-10.2); NEUT % 78.7 % (42.8-82.8); PLATELET COUNT 123 K/MM3 (134-434); RBC 3.24 M/mm3 (4.00-5.60); RDW 16.2 % (11.9-15.9)
[2020-07-05 14:35] LABS: INR 1.13 (0.83-1.09); PROTHROMBIN TIME (PATIENT) 13.4 SEC (9.7-13.0)
[2020-07-05 14:38] LABS: ACTIVATED PTT 32.1 SECONDS (25.2-36.5)
[2020-07-05 14:56] LABS: ALBUMIN 2.8 g/dl (3.4-5.0); BILIRUBIN,TOTAL 0.8 mg/dL (0.2-1); BLOOD UREA NITROGEN 53.9 mg/dL (7-18); POTASSIUM 3.8 mmol/L (3.5-5.1); TOT PROT 6.2 g/dl (6.4-8.2)
[2020-07-05] MEDS ORDERED: morphine CARPU-JECT 2 MG/1 ML DISP.SYRIN IVPUSH ONE (15:47)
[2020-07-05] MEDS ORDERED: MORPHINE SULFATE 2 MG/ML VIAL ONE (15:58)
--- NOTE | 2020-07-06 09:17 | EKG ---
Test Reason : Blood Pressure : / mmHG Vent. Rate : 086 BPM Atrial Rate : 086 BPM P-R Int : 166 ms QRS Dur : 096 ms QT Int : 454 ms P-R-T Axes : 008 020 046 degrees QTc Int : 543 ms NORMAL SINUS RHYTHM PROLONGED QT ABNORMAL ECG WHEN COMPARED WITH ECG OF 06-JUN-2020 18:04, NO SIGNIFICANT CHANGE WAS FOUND Confirmed by Clark Ndiaye ([id number]) on 07/06/2020 9:17:11 AM Referred By: Confirmed By:Clark Ndiaye
--- NOTE | 2020-07-23 19:34 | PDOC ---
Documentation entered by Fabienne Kenyon SCRIBE, acting as scribe for Montserrat Damon MD. Montserrat Damon MD: This documentation has been prepared by the Kostas david Ana, SCRIBE, under my direction and personally reviewed by me in its entirety. I confirm that the documentation accurately reflects all work, treatment, procedures, and medical decision making performed by me. Attending Attestation - Resident Resident Name: Vish Burger - ED Attending Attestation I have performed the following: I have examined & evaluated the patient, The case was reviewed & discussed with the resident, I agree w/resident's findings & plan, Exceptions are as noted - HPI HPI: 07/05/20 12:48 Patient is a 49 year old male with a significant past medical history of seizures, alcohol abuse, diabetes, CKD on dialysis, hypertension, HLD, ESRD, cirrhosis liver failure s/p TIPS and listed for transplant, GI bleed, anemia, and recent prolonged hospitalization at [facility] for variceal bleed, who presents to the ED complaining of rectal bleeding. Patient has a long standing history of non compliance with HD secondary to ETOH abuse. Does not recall last time he had HD. Patient denies fall, although he has an abrasion on his head. PAtient is an extremely poor historian. Patient denies: Allergies: latex, piperacillin, sertraline, shellfish derived, tazobactam 07/05/20 15:03 07/05/20 15:07 - Physicial Exam PE: 07/05/20 15:07 Agree with resident exam. Patient is oriented and in no acute distress. Sleeping but easily arousable to loud voice in the eD. Lungs: CTA b/l CV; rrr no m/r/g Abdomen: soft, non tender, non distended, without guarding or rebound. 07/05/20 15:08 - Medical Decision Making 07/05/20 15:12 Pt presents to the ED complaining of melena. History of cirrhosis with multiple GIB in the past. Patient cannot remember when last HD was. Differential includes electrolyte imbalance, variceal bleed, less likely LGIB. Will check CT head to rule out intracranial bleed and admit to medicine for continued management. Discharge - Discharge Information Problems reviewed: Yes Clinical Impression/Diagnosis: Bloody stools, Eloped from emergency department Abdominal pain Qualifiers: Abdominal location: generalized Qualified Code(s): R10.84 - Generalized abdominal pain Condition: Stable Disposition: ELOPED - Follow up/Referral Referrals: Rene Ward MD [Primary Care Provider] - - Patient Discharge Instructions - Post Discharge Activity
== END 2020-07-05 16:05 | disposition left against medical advice (07) ==
LOC: JER 12:37
PROC: 3E033GC Introduction of Other Therapeutic Substance into Peripheral Vein, Percutaneous Approach (ICD-10-PCS; principal; 2020-07-05)
DX: K92.1 Melena (principal)
CPT/HCPCS: 36415; 71045-TC-FY; 80053; 80307; 82140; 82272; 83605; 84484; 85025; 85610; 85730; 87040; 93005; 93010; 99285-25; U0003

== ENCOUNTER 2020-07-06 03:32 | Inpatient (IN) | payer OTHER ==
[2020-07-06] MEDS ORDERED: FAMOTIDINE 20 MG/50 ML IVPB 20 MG/50 ML MG IVPB ONE ×2 (03:38→03:55)
--- NOTE | 2020-07-06 03:39 | PDOC ---
Attending Attestation - Resident Resident Name: Aleena Guidry - ED Attending Attestation I have performed the following: I have examined & evaluated the patient, The case was reviewed & discussed with the resident, I agree w/resident's findings & plan - HPI HPI: 07/06/20 06:53 Pt comes with continued black stools per rectum He has known ETOH abuse. He comes with abdominal pains - Physicial Exam PE: 07/06/20 06:53 Agree with resident exam - Medical Decision Making 07/06/20 04:22 49yo M hx HTN, HLD, cirrhosis 2/2 EtOH s/p TIPS, ESRD on [facility] HD (noncompliant x1wk per pt), and recent ED visit here eloped <24hrs ago BIBA for black stool and epigastric pain 07/06/20 06:53 Pt will be admitted, as his HB/HCT is dropping from yesterday. Heart Score/ECG Review - ECG Intrepretation Rhythm: Regular Rhythm - P and WA Delta Wave(s) Present: No WPW: No - QRS Poor R Wave Progression: No Q Wave Present: No - ST and T Early Repolarization: No Non Specific ST-T Wave changes: No Flattened T Waves: No - ECG Impressions Normal ECG: Yes Non-specific ST Elevation: No Ischemic Changes: No Bradycardia: No Tachycardia: Sinus Torsades omari Pointes: No WPW: No Discharge - Discharge Information Problems reviewed: Yes Clinical Impression/Diagnosis: GI bleed, Acute on chronic kidney failure Condition: Fair Disposition: AGAINST MEDICAL ADVICE - Follow up/Referral - Patient Discharge Instructions - Post Discharge Activity
[2020-07-06 03:51] VITALS: BMI 29.5
--- NOTE | 2020-07-06 03:56 | PDOC ---
History of Present Illness - General Stated Complaint: ABD PAIN Time Seen by Provider: 07/06/20 03:38 Past History - Medical History Allergies/Adverse Reactions: Allergies Allergy/AdvReac Type Severity Reaction Status Date / Time piperacillin Allergy Severe Swelling Verified 07/06/20 03:51 sertraline [From Zoloft] Allergy Severe Difficulty Verified 07/06/20 03:51 Breathing shellfish derived Allergy Severe Swelling Verified 07/06/20 03:51 latex Allergy Mild Rash Verified 07/06/20 03:51 tazobactam [From Zosyn] Allergy Difficulty Verified 07/06/20 03:51 Breathing Home Medications: Ambulatory Orders Calcitriol [Calcitriol -] 0.25 mcg PO Q2D 12/03/19 Gabapentin 300 mg PO HS 12/03/19 Levothyroxine [Synthroid -] 50 mcg PO DAILY 12/03/19 Omeprazole 40 mg PO DAILY 12/03/19 Buspirone HCl [Buspar -] 5 mg PO BID 01/12/20 Amlodipine Besylate [Norvasc -] 5 mg PO DAILY 30 Days #30 tablet 03/07/20 Rifaximin [Xifaxan -] 550 mg PO BID #60 tablet 03/09/20 Lisinopril [Prinivil] 10 mg PO DAILY 05/03/20 Fluoxetine HCl [Prozac] 40 mg PO DAILY 05/22/20 levETIRAcetam [Keppra -] 500 mg PO BID tablet 05/23/20 Diphenhydramine HCl 50 mg PO PRN PRN 06/06/20 Folic Acid 1 mg PO DAILY 06/06/20 Lactulose 10 gm PO ASDIR 06/06/20 Thiamine HCl [B-1] 100 mg PO DAILY 06/06/20 Anemia: Yes Asthma: No Cancer: No Cardiac Disorders: No CVA: No COPD: No CHF: No Dementia: No Diabetes: No Dialysis: Yes (tues, thurs, Sat) GI Disorders: Yes (cirrhosis etoh abuse; esophageal varices) Disorders: No HTN: Yes Hypercholesterolemia: No Kidney Stones: No Liver Disease: Yes (CIRRHOSIS OF LIVER) Psychiatric Problems: Yes (DEPRESSION, ANXEITY) Seizures: Yes Thyroid Disease: Yes - Surgical History Abdominal Surgery: No Appendectomy: No Cardiac Surgery: No Cholecystectomy: No GI Surgery: Yes (esophageal varicies) Lung Surgery: No Neurologic Surgery: No Orthopedic Surgery: Yes (right shoulder due to dislocation 6 years ago) - Reproductive History Testicular Surgery: No - Immunization History Immunization Up to Date: Yes - Psycho-Social/Smoking History Smoking Status: No Smoking History: Never smoked Have you smoked in the past 12 months: No Number of Cigarettes Smoked Daily: 20 If you are a former smoker, when did you quit?: 2010 Cigars Per Day: 0 Information on smoking cessation initiated: No 'Breaking Loose' booklet given: 05/22/20 - Substance Abuse Hx (Audit-C & DAST Scrn) How often the patient has a drink containing alcohol: Never Score: In Men: 4 or > Positive; In Women: 3 or > Positive: 0 Screen Result (Pos requires Nsg. Audit-10AR): Negative In the last yr the pt used illegal drug/Rx for NonMed reason: No Score: Yes response is considered Positive: 0 Screen Result (Positive result requires Nsg. DAST-10): Negative *Physical Exam - Vital Signs Last Vital Signs Temp Pulse Resp BP Pulse Ox 99.5 F 101 H 20 171/98 H 100 07/06/20 03:49 07/06/20 03:49 07/06/20 03:49 07/06/20 03:49 07/06/20 03:49 ED Treatment Course - LABORATORY CBC & Chemistry Diagram: 07/06/20 04:25 07/06/20 04:25 Medical Decision Making - Medical Decision Making 07/06/20 03:55 HPI: 49yo M hx HTN, HLD, cirrhosis 2/2 EtOH s/p TIPS, ESRD on [facility] HD (noncompliant x1wk per pt), multiple upper GI bleeds requiring esophageal varices banding, and recent ED visit here eloped <24hrs ago BIBA for black stool and epigastric pain x 1 week, exactly same as yesterday. Endorses daily alcohol use, last today at 0030. Hx withdrawals. Epigastric pain sharp nonradiating similar to prior UGIBs, requesting morphine and protonix. Pt states he is on renal and liver transplant list and all doctors are at [facility]. Denies F/C, N/V, D/C, sick contacts, COVID. ROS: Constitutional: Negative for chills, fever, fatigue, diaphoresis. HENT: Negative for sore throat, rhinorrhea, congestion. Eyes: Negative for visual disturbance. Respiratory: Negative for shortness of breath, cough, and wheezing. Cardiovascular: Negative for chest pain, palpitations, and leg swelling. Gastrointestinal: Positive for epigastric pain, black stool. Negative for BRBPR, constipation, diarrhea, nausea, and vomiting. Genitourinary: Negative for dysuria, flank pain, and hematuria. Musculoskeletal: Negative for myalgias, back pain, and neck pain. Skin: Negative for rash. Neurological: Negative for light-headedness, dizziness, vertigo, syncope, weakness, numbness and headaches. Psychiatric/Behavioral: Positive for alcohol use. Negative for confusion. PE: Gen: Alert, NAD, uncomfortable-appearing, holding epigastric area HEENT: PERRL, EOMI, MMM, NC, well-healing abrasions to head. No conjunctival pallor. Sclera are icteric. Oropharynx is clear. CV: Regular rate and rhythm. No murmurs, rubs, or gallops. PULM: No resp distress. CTAB, no wheezes, rales, or rhonchi. ABD: soft, ND, _TTP epigastric, no rebound tenderness or guarding, no CVA tenderness. BACK: No TTP of c/t/l-spine. No step-offs or deformities. MSK: No bony deformities. 2+ pulses in all extremities. NEURO: AAOx3. PERRL. No gross CN deficits. Strength and sensation grossly intact throughout. Normal gait. EXTREMITIES: No cyanosis. No clubbing. No edema. No calf tenderness. PSYCH: Normal mood and thought pattern. SKIN: Warm and dry. Normal capillary refill. No rashes. + jaundice. MDM: 49yo M hx HTN, HLD, cirrhosis 2/2 EtOH s/p TIPS, ESRD on [facility] HD (noncompliant x1wk per pt), multiple upper GI bleeds requiring esophageal varices banding, and recent ED visit here eloped <24hrs ago BIBA for black stool and epigastric pain x 1 week, exactly same as yesterday. Tachycardic, hypertensive, otherwise hemodynamically stable, afebrile, epigastric TTP. Reviewed labs from yesterday. FOBT + Ddx: likely UGIB, possible variceal, also consider anemia, pancreatitis, ACS/CO, arrhythmia, gastritis, LGIB, infection -Pepcid -IVF -Pantoprazole 40mg then 8mg/hr -Ertapenem 1g (pcn allergy, QTc prolonged, kidney failure) -Octreotide -Morphine 2 -Repeat CBC,CMP,Coags,Lipase,Cardiac profile -Dispo: likely admit 07/06/20 05:18 EKG reviewed: sinus tachycardia, 103bpm, QTc 510ms, no e/o acute ischemia Labs reviewed. Notable for Hb 8.4 (9.9 yesterday) Admit for likely UGIB 07/06/20 05:24 Pt feeling jittery, NBNB emesis x2, feels like entering alcohol withdrawal. -Librium 100 07/06/20 06:[address] Watson placed and called Signed out to admitting team and day team Discharge - Discharge Information Problems reviewed: Yes Clinical Impression/Diagnosis: GI bleed, Acute on chronic kidney failure Condition: Fair Disposition: AGAINST MEDICAL ADVICE - Admission Yes - Follow up/Referral - Patient Discharge Instructions - Post Discharge Activity
[2020-07-06] MEDS ORDERED: FAMOTIDINE 20 MG TABLET PO ONE (04:12)
[2020-07-06] MEDS ORDERED: FAMOTIDINE 20 MG TABLET ONE (04:17)
[2020-07-06] MEDS ORDERED: PANTOPRAZOLE SODIUM 40 MG VIAL IVPUSH ONE (04:40)
[2020-07-06] MEDS ORDERED: CIPROFLOXACIN 400 MG/D5W 400 MG/200 ML IVPB IVPB ONE (04:40)
[2020-07-06 04:48] LABS: BASO % 0.9 % (0-2.0); EOS % 0.6 % (0-4.5); HEMATOCRIT 24.2 % (35.4-49); HEMOGLOBIN 8.4 GM/dL (11.7-16.9); MCH 30.6 pg (25.7-33.7); MEAN CELL VOLUME 87.5 fl (80-96); MEAN PLT VOLUME 9.1 fl (7.5-11.1); MONO % 7.4 % (3.8-10.2); NEUT % 74.1 % (42.8-82.8); PLATELET COUNT 88 K/MM3 (134-434); RBC 2.76 M/mm3 (4.00-5.60); WHITE BLOOD COUNT 6.5 K/mm3 (4.0-10.0)
[2020-07-06 04:58] LABS: INR 1.2 (0.83-1.09); PROTHROMBIN TIME (PATIENT) 14.2 SEC (9.7-13.0)
[2020-07-06 05:01] LABS: ACTIVATED PTT 31.9 SECONDS (25.2-36.5)
[2020-07-06 05:09] LABS: ALBUMIN 2.7 g/dl (3.4-5.0); BILIRUBIN,TOTAL 1.2 mg/dL (0.2-1); BLOOD UREA NITROGEN 63.5 mg/dL (7-18); CALCIUM 7.4 mg/dL (8.5-10.1); CREATININE 5.2 mg/dL (0.55-1.3); POTASSIUM 3.3 mmol/L (3.5-5.1); TOT PROT 6.1 g/dl (6.4-8.2)
[2020-07-06] MEDS ORDERED: PANTOPRAZOLE SODIUM 40 MG VIAL ONE (05:10)
[2020-07-06] MEDS ORDERED: OCTREOTIDE ACETATE 50 MCG/1 ML - 1 ML VIAL IVPUSH ONE (05:22)
[2020-07-06] MEDS ORDERED: SODIUM CHLORIDE 0.9% 500 ML INFUS.BAG IV ONE (05:24)
[2020-07-06] MEDS ORDERED: chlordiazePOXIDE HCL 25 MG CAPSULE PO ONE (05:27)
[2020-07-06] MEDS ORDERED: chlordiazePOXIDE HCL 25 MG CAPSULE ONE (05:29)
[2020-07-06] MEDS ORDERED: OCTREOTIDE ACETATE 200 MCG, OCTREOTIDE ACETATE 1,000 MCG in DEXTROSE 5%-WATER - 496 ML IVPB SCH (05:30)
[2020-07-06] MEDS ORDERED: PANTOPRAZOLE SODIUM 80 MG in SODIUM CHLORIDE 100 ML IVPB SCH (05:30)
[2020-07-06] MEDS ORDERED: OCTREOTIDE ACETATE 100 MCG/1 ML ONE (05:31)
[2020-07-06] MEDS ORDERED: ERTAPENEM SODIUM 1 GM in SODIUM CHLORIDE 50 ML IVPB ONE (06:15)
[2020-07-06] MEDS ORDERED: SODIUM CHLORIDE 1,000 ML IV SCH (06:15)
[2020-07-06] MEDS ORDERED: morphine CARPU-JECT 2 MG/1 ML DISP.SYRIN IVPUSH ONE ×2 (06:31→11:47)
[2020-07-06] MEDS ORDERED: MORPHINE SULFATE 2 MG/ML VIAL ONE (06:55)
--- NOTE | 2020-07-06 07:31 | HP ---
CHIEF COMPLAINT: PCP: HISTORY OF PRESENT ILLNESS: ER course was notable for: (1) (2) (3) Recent Travel: PAST MEDICAL HISTORY: PAST SURGICAL HISTORY: Social History: Smoking: Alcohol: Drugs: Allergies piperacillin Allergy (Severe, Verified 07/06/20 03:51) Swelling sertraline [From Zoloft] Allergy (Severe, Verified 07/06/20 03:51) Difficulty Breathing shellfish derived Allergy (Severe, Verified 07/06/20 03:51) Swelling latex Allergy (Mild, Verified 07/06/20 03:51) Rash tazobactam [From Zosyn] Allergy (Verified 07/06/20 03:51) Difficulty Breathing HOME MEDICATIONS: Home Medications Medication Instructions Recorded Calcitriol [Calcitriol -] 0.25 mcg PO Q2D 12/03/19 Gabapentin 300 mg PO HS 12/03/19 Levothyroxine [Synthroid -] 50 mcg PO DAILY 12/03/19 Omeprazole 40 mg PO DAILY 12/03/19 Buspirone HCl [Buspar -] 5 mg PO BID 01/12/20 Amlodipine Besylate [Norvasc -] 5 mg PO DAILY 30 Days #30 tablet 03/07/20 Rifaximin [Xifaxan -] 550 mg PO BID #60 tablet 03/09/20 Lisinopril [Prinivil] 10 mg PO DAILY 05/03/20 Fluoxetine HCl [Prozac] 40 mg PO DAILY 05/22/20 levETIRAcetam [Keppra -] 500 mg PO BID tablet 05/23/20 Diphenhydramine HCl 50 mg PO PRN PRN 06/06/20 Folic Acid 1 mg PO DAILY 06/06/20 Lactulose 10 gm PO ASDIR 06/06/20 Thiamine HCl [B-1] 100 mg PO DAILY 06/06/20 REVIEW OF SYSTEMS CONSTITUTIONAL: Absent: fever, chills, diaphoresis, generalized weakness, malaise, loss of appetite, weight change HEENT: Absent: rhinorrhea, nasal congestion, throat pain, throat swelling, difficulty swallowing, mouth swelling, ear pain, eye pain, visual changes CARDIOVASCULAR: Absent: chest pain, syncope, palpitations, irregular heart rate, lightheadedness, peripheral edema RESPIRATORY: Absent: cough, shortness of breath, dyspnea with exertion, orthopnea, wheezing, stridor, hemoptysis GASTROINTESTINAL: Absent: abdominal pain, abdominal distension, nausea, vomiting, diarrhea, constipation, melena, hematochezia GENITOURINARY: Absent: dysuria, frequency, urgency, hesitancy, hematuria, flank pain, genital pain MUSCULOSKELETAL: Absent: myalgia, arthralgia, joint swelling, back pain, neck pain SKIN: Absent: rash, itching, pallor HEMATOLOGIC/IMMUNOLOGIC: Absent: easy bleeding, easy bruising, lymphadenopathy, frequent infections ENDOCRINE: Absent: unexplained weight gain, unexplained weight loss, heat intolerance, cold intolerance NEUROLOGIC: Absent: headache, focal weakness or paresthesias, dizziness, unsteady gait, seizure, mental status changes, bladder or bowel incontinence PSYCHIATRIC: Absent: anxiety, depression, suicidal or homicidal ideation, hallucinations. PHYSICAL EXAMINATION Vital Signs - 24 hr 07/06/20 03:49 Temperature 99.5 F Pulse Rate 101 H Respiratory 20 Rate Blood Pressure 171/98 H O2 Sat by Pulse 100 Oximetry (%) GENERAL: Awake, alert, and fully oriented, in no acute distress. HEAD: Normal with no signs of trauma. EYES: Pupils equal, round and reactive to light, extraocular movements intact, sclera anicteric, conjunctiva clear. No lid lag. EARS, NOSE, THROAT: Ears normal, nares patent, oropharynx clear without exudates. Moist mucous membranes. NECK: Normal range of motion, supple without lymphadenopathy, JVD, or masses. LUNGS: Breath sounds equal, clear to auscultation bilaterally. No wheezes, and no crackles. No accessory muscle use. HEART: Regular rate and rhythm, normal S1 and S2 without murmur, rub or gallop. ABDOMEN: Soft, nontender, not distended, normoactive bowel sounds, no guarding, no rebound, no masses. No hepatomegaly or splenomegaly. MUSCULOSKELETAL: Normal range of motion at all joints. No bony deformities or tenderness. No CVA tenderness. UPPER EXTREMITIES: 2+ pulses, warm, well-perfused. No cyanosis. No clubbing. No peripheral edema. LOWER EXTREMITIES: 2+ pulses, warm, well-perfused. No calf tenderness. No peripheral edema. NEUROLOGICAL: Cranial nerves II-XII intact. Normal speech. Normal gait. PSYCHIATRIC: Cooperative. Good eye contact. Appropriate mood and affect. SKIN: Warm, dry, normal turgor, no rashes or lesions noted, normal capillary refill. Laboratory Results - last 24 hr 07/06/20 07/06/20 07/06/20 04:25 04:25 04:25 WBC 6.5 RBC 2.76 L Hgb 8.4 L Hct 24.2 L MCV 87.5 MCH 30.6 MCHC 35.0 RDW 16.0 H Plt Count 88 L D MPV 9.1 Absolute Neuts (auto) 4.8 Neutrophils % 74.1 Lymphocytes % 17.0 Monocytes % 7.4 D Eosinophils % 0.6 Basophils % 0.9 Nucleated RBC % 0 PT with INR 14.20 H INR 1.20 H PTT (Actin FS) 31.9 Sodium 132 L Potassium 3.3 L Chloride 100 Carbon Dioxide 14 L Anion Gap 19 H BUN 63.5 H Creatinine 5.2 H Est GFR (CKD-EPI)AfAm 14.09 Est GFR (CKD-EPI)NonAf 12.16 Random Glucose 84 Calcium 7.4 L Total Bilirubin 1.2 H AST 35 ALT 14 Alkaline Phosphatase 152 H Creatine Kinase 306 Creatine Kinase Index 1.2 CK-MB (CK-2) 3.8 H Troponin I 0.06 H Total Protein 6.1 L Albumin 2.7 L Lipase 198 Blood Type Antibody Screen 07/06/20 04:25 WBC RBC Hgb Hct MCV MCH MCHC RDW Plt Count MPV Absolute Neuts (auto) Neutrophils % Lymphocytes % Monocytes % Eosinophils % Basophils % Nucleated RBC % PT with INR INR PTT (Actin FS) Sodium Potassium Chloride Carbon Dioxide Anion Gap BUN Creatinine Est GFR (CKD-EPI)AfAm Est GFR (CKD-EPI)NonAf Random Glucose Calcium Total Bilirubin AST ALT Alkaline Phosphatase Creatine Kinase Creatine Kinase Index CK-MB (CK-2) Troponin I Total Protein Albumin Lipase Blood Type B POSITIVE Antibody Screen Negative ASSESSMENT/PLAN: ATTENDING PHYSICIAN STATEMENT I saw and evaluated the patient. I reviewed the resident's note and discussed the case with the resident. I agree with the resident's findings and plan as documented. SUBJECTIVE: OBJECTIVE: ASSESSMENT AND PLAN:
[2020-07-06 08:11] VITALS: BP 184/89; PULSE 102
[2020-07-06 08:36] VITALS: TEMP 97.8
--- NOTE | 2020-07-06 09:11 | EKG ---
Test Reason : Blood Pressure : / mmHG Vent. Rate : 103 BPM Atrial Rate : 103 BPM P-R Int : 148 ms QRS Dur : 100 ms QT Int : 390 ms P-R-T Axes : 061 033 050 degrees QTc Int : 510 ms SINUS TACHYCARDIA NONSPECIFIC ST ABNORMALITY ABNORMAL ECG WHEN COMPARED WITH ECG OF 05-JUL-2020 13:16, NO SIGNIFICANT CHANGE WAS FOUND Confirmed by Clark Ndiaye ([id number]) on 07/06/2020 9:10:57 AM Referred By: Confirmed By:Clark Ndiaye
[2020-07-06] MEDS ORDERED: THIAMINE HCL 200 MG/2 ML VIAL IVPB SCH (10:00)
[2020-07-06] MEDS ORDERED: chlordiazePOXIDE HCL 10 MG CAPSULE PO PRN (10:59)
[2020-07-06] MEDS ORDERED: POTASSIUM CHLORIDE 10 MEQ in SODIUM CHLORIDE 0.45% 1,000 ML IVPB SCH (11:00)
[2020-07-06] MEDS ORDERED: chlordiazePOXIDE HCL 25 MG CAPSULE PO SCH (13:00)
--- NOTE | 2020-07-06 16:16 | CONSULT ---
Consult Consult Specialty:: Nephrology Reason for Consultation:: ESRD - History of Present Illness Chief Complaint: nausea History of Present Illness: Pt is a 49 year old male with pmhx of esrd, etoh abuse, tips, liver cirrhosis, htn, hld, anemia who presents with abd pain, nausea and vomiting. He also missed his last few HD treatments. He denies chest pain. He is still drinking alcohol. He complains of epigastric pain. he denies shortness of breath. - History Source History Provided By: Patient - Past Medical History BUTTON RECLAIMER: Yes: Seizure, Other ([place] hole decompression of intracerebral bleed ? fall after seizre or hypertensive hemorrhage) Cardio/Vascular: Yes: HTN, Hyperlipdemia Pulmonary: Yes: Bronchitis Gastrointestinal: Yes: Diverticulosis, GI Bleed (multiple esophageal variceal bleed and banding before TIPS was placed at [facility]), Other (colon polyp tubular adenoma 09/14) Hepatobiliary: Yes: Cirrhosis, Cholelithiasis Renal/: Yes: Renal Inusuff, Hemodialysis Psych: Yes: Addictions (alcohol, previously cocaine and marijuana), Depression, Other (attempted suicide) - Past Surgical History Past Surgical History: Yes: Arthrosocopy (left knee), Colonoscopy, Upper Endoscopy - Alcohol/Substance Use Hx Alcohol Use: Yes History of Substance Use: reports: Cocaine (snorted - none x 20 years), Marijuana - Smoking History Smoking history: Never smoked Have you smoked in the past 12 months: No Aproximately how many cigarettes per day: 20 If you are a former smoker, when did you quit?: 2010 - Social History Usual Living Arrangement: Alone ADL: Support Services 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 History of Recent Travel: No Home Medications - Allergies Allergies/Adverse Reactions: Allergies Allergy/AdvReac Type Severity Reaction Status Date / Time piperacillin Allergy Severe Swelling Verified 07/06/20 03:51 sertraline [From Zoloft] Allergy Severe Difficulty Verified 07/06/20 03:51 Breathing shellfish derived Allergy Severe Swelling Verified 07/06/20 03:51 latex Allergy Mild Rash Verified 07/06/20 03:51 tazobactam [From Zosyn] Allergy Difficulty Verified 07/06/20 03:51 Breathing - Home Medications Home Medications: Ambulatory Orders Calcitriol [Calcitriol -] 0.25 mcg PO Q2D 12/03/19 Gabapentin 300 mg PO HS 12/03/19 Levothyroxine [Synthroid -] 50 mcg PO DAILY 12/03/19 Omeprazole 40 mg PO DAILY 12/03/19 Buspirone HCl [Buspar -] 5 mg PO BID 01/12/20 Amlodipine Besylate [Norvasc -] 5 mg PO DAILY 30 Days #30 tablet 03/07/20 Rifaximin [Xifaxan -] 550 mg PO BID #60 tablet 03/09/20 Lisinopril [Prinivil] 10 mg PO DAILY 05/03/20 Fluoxetine HCl [Prozac] 40 mg PO DAILY 05/22/20 levETIRAcetam [Keppra -] 500 mg PO BID tablet 05/23/20 Diphenhydramine HCl 50 mg PO PRN PRN 06/06/20 Folic Acid 1 mg PO DAILY 06/06/20 Lactulose 10 gm PO ASDIR 06/06/20 Thiamine HCl [B-1] 100 mg PO DAILY 06/06/20 Family Medical History Family History: Denies Review of Systems - Review of Systems Constitutional: reports: Loss of Appetite, Weakness Eyes: reports: No Symptoms HENT: reports: No Symptoms Neck: reports: No Symptoms Cardiovascular: reports: No Symptoms Respiratory: reports: No Symptoms Gastrointestinal: reports: No Symptoms Genitourinary: reports: No Symptoms Musculoskeletal: reports: No Symptoms Integumentary: reports: No Symptoms Neurological: reports: No Symptoms Endocrine: reports: No Symptoms Hematology/Lymphatic: reports: No Symptoms Physical Exam Vital Signs: Vital Signs Temperature 97.8 F 07/06/20 08:08 Pulse Rate 102 H 07/06/20 08:08 Respiratory Rate 16 07/06/20 08:08 Blood Pressure 184/89 H 07/06/20 08:08 O2 Sat by Pulse Oximetry (%) 100 07/06/20 08:08 Constitutional: Yes: Mild Distress HENT: Yes: Atraumatic Cardiovascular: Yes: S1, S2 Respiratory: Yes: On Nasal O2 Gastrointestinal: Yes: Normal Bowel Sounds, Soft Renal/: Yes: WNL Musculoskeletal: Yes: WNL Edema: Yes Edema: LLE: 1+, RLE: 1+ Neurological: Yes: Oriented Psychiatric: Yes: Oriented Labs: CBC, BMP 07/06/20 04:25 07/06/20 04:25 Assessment/Plan Impression 1. ESRD 2. htn 3. hx etoh abuse 4. liver cirrhosis with tips 5. anemia 6. hx GI bleed 7. eosinophilia 8. PNA 9. missed HD Plan - will arrange for HD - monitor hg - compliance has been an issue - cardio eval for prolonged QT - GI eval - avoid nsaids - transfuse as needed - epogen for anemia
--- NOTE | 2020-07-06 16:16 | PN ---
Progress Note (short form) - Note Progress Note: Pt has signed out of the hospital AMA.
[2020-07-06] MEDS ORDERED: levETIRAcetam 500 MG TABLET (FP) PO SCH (22:00)
[2020-07-06] MEDS ORDERED: busPIRone HCL 5 MG TABLET PO SCH (22:00)
[2020-07-07] MEDS ORDERED: LEVOTHYROXINE NA 50 MCG TABLET (FP) PO SCH (07:00)
[2020-07-07] MEDS ORDERED: FOLIC ACID 1 MG TABLET (FP) PO SCH (10:00)
[2020-07-07] MEDS ORDERED: LISINOPRIL 10 MG TABLET (FP) PO SCH (10:00)
[2020-07-07] MEDS ORDERED: amLODIPine BESYLATE 5 MG TABLET (FP) PO SCH (10:00)
[2020-07-07] MEDS ORDERED: MULTIVIT-MINERALS ORAL LIQUID PO SCH (10:00)
[2020-07-08] MEDS ORDERED: chlordiazePOXIDE 5 MG CAPSULE PO SCH (05:00)
[2020-07-09] MEDS ORDERED: chlordiazePOXIDE HCL 10 MG CAPSULE PO PRN
[2020-07-09] MEDS ORDERED: chlordiazePOXIDE HCL 10 MG CAPSULE PO SCH (05:00)
[2020-07-10] MEDS ORDERED: chlordiazePOXIDE HCL 10 MG CAPSULE PO ONE (05:00)
== END 2020-07-06 13:00 | disposition left against medical advice (07) | DRG 377 ==
LOC: JER 03:32 → JERBED 10:37
PROVIDERS: ADMIT Family Medicine; ATTEND Family Medicine
DX: K92.2 Gastrointestinal hemorrhage, unspecified (principal); N18.6 End stage renal disease; I12.0 Hypertensive chronic kidney disease with stage 5 chronic kidney disease or end stage renal disease; N17.9 Acute kidney failure, unspecified; E78.5 Hyperlipidemia, unspecified; R00.0 Tachycardia, unspecified; R11.2 Nausea with vomiting, unspecified; K74.60 Unspecified cirrhosis of liver; F10.20 Alcohol dependence, uncomplicated; G40.909 Epilepsy, unspecified, not intractable, without status epilepticus; F32.9 Major depressive disorder, single episode, unspecified; D63.1 Anemia in chronic kidney disease; R63.0 Anorexia; Z88.0 Allergy status to penicillin; Z99.2 Dependence on renal dialysis
CPT/HCPCS: 36415; 80053; 82550; 82553; 83690; 84484; 85025; 85610; 85730; 86850; 86900; 86901; 93005; 93010; 99285-25

== ENCOUNTER 2020-07-25 02:13 | Emergency (ER) | payer OTHER ==
[2020-07-25 02:41] VITALS: BP 121/70; PULSE 80; TEMP 98; BMI 28.0
[2020-07-25] MEDS ORDERED: DIPHTH,PERTUSS(ACELL),TET 0.5 ML DISP.SYRIN IM ONE ×2 (03:10→03:16)
[2020-07-25] MEDS ORDERED: ACETAMINOPHEN 325 MG TABLET (FP) PO ONE (03:10)
[2020-07-25] MEDS ORDERED: ACETAMINOPHEN 325 MG TABLET (FP) ONE (03:16)
--- NOTE | 2020-07-25 03:29 | PDOC ---
History of Present Illness - General Chief Complaint: Injury Stated Complaint: FALL Time Seen by Provider: 07/25/20 03:29 History Source: Patient Exam Limitations: No Limitations - History of Present Illness Initial Comments: 50 y/o male presenting to [facility] ER complaining of pain and bleeding to the left cheek and bridge of nose. Pt reports falling from standing height onto the corner of the table while attempting to hang mosquito sticky paper within approx. 30 min of arrival. Denies LOC, nausea, vomiting, neck pain, or retrograde amnesia. Able to walk immediately afterward. Denies anticoagulant medication. Endorses drinking one beer this evening. Past History - Medical History Allergies/Adverse Reactions: Allergies Allergy/AdvReac Type Severity Reaction Status Date / Time piperacillin Allergy Severe Swelling Verified 07/06/20 03:51 sertraline [From Zoloft] Allergy Severe Difficulty Verified 07/06/20 03:51 Breathing shellfish derived Allergy Severe Swelling Verified 07/06/20 03:51 latex Allergy Mild Rash Verified 07/06/20 03:51 tazobactam [From Zosyn] Allergy Difficulty Verified 07/06/20 03:51 Breathing Home Medications: Ambulatory Orders Calcitriol [Calcitriol -] 0.25 mcg PO Q2D 12/03/19 Gabapentin 300 mg PO HS 12/03/19 Levothyroxine [Synthroid -] 50 mcg PO DAILY 12/03/19 Omeprazole 40 mg PO DAILY 12/03/19 Buspirone HCl [Buspar -] 5 mg PO BID 01/12/20 Amlodipine Besylate [Norvasc -] 5 mg PO DAILY 30 Days #30 tablet 03/07/20 Rifaximin [Xifaxan -] 550 mg PO BID #60 tablet 03/09/20 Lisinopril [Prinivil] 10 mg PO DAILY 05/03/20 Fluoxetine HCl [Prozac] 40 mg PO DAILY 05/22/20 levETIRAcetam [Keppra -] 500 mg PO BID tablet 05/23/20 Diphenhydramine HCl 50 mg PO PRN PRN 06/06/20 Folic Acid 1 mg PO DAILY 06/06/20 Lactulose 10 gm PO ASDIR 06/06/20 Thiamine HCl [B-1] 100 mg PO DAILY 06/06/20 Naltrexone HCl 50 mg PO DAILY 07/24/20 traZODone HCL [Trazodone HCl] 50 mg PO HS PRN #7 tablet 07/24/20 Anemia: Yes Asthma: No Cancer: No Cardiac Disorders: No CVA: No COPD: No CHF: No Dementia: No Diabetes: No Dialysis: Yes (tues, thurs, Sat) GI Disorders: Yes (cirrhosis etoh abuse; esophageal varices) Disorders: No HTN: Yes Hypercholesterolemia: No Kidney Stones: No Liver Disease: Yes (CIRRHOSIS ) Psychiatric Problems: Yes (DEPRESSION, ANXEITY) Seizures: Yes Thyroid Disease: Yes - Surgical History Abdominal Surgery: No Appendectomy: No Cardiac Surgery: No Cholecystectomy: No GI Surgery: Yes (esophageal varicies) Lung Surgery: No Neurologic Surgery: No Orthopedic Surgery: Yes (right shoulder due to dislocation 6 years ago) - Reproductive History Testicular Surgery: No - Immunization History Immunization Up to Date: Yes - Psycho-Social/Smoking History Smoking Status: No Smoking History: Current some day smoker Have you smoked in the past 12 months: No Number of Cigarettes Smoked Daily: 20 If you are a former smoker, when did you quit?: 2010 Cigars Per Day: 0 Information on smoking cessation initiated: Yes 'Breaking Loose' booklet given: 05/22/20 - Substance Abuse Hx (Audit-C & DAST Scrn) How often the patient has a drink containing alcohol: 2-3 times / week Score: In Men: 4 or > Positive; In Women: 3 or > Positive: 3 Screen Result (Pos requires Nsg. Audit-10AR): Negative In the last yr the pt used illegal drug/Rx for NonMed reason: No Score: Yes response is considered Positive: 0 Screen Result (Positive result requires Nsg. DAST-10): Negative Review of Systems - Review of Systems Able to Perform ROS?: Yes Comments:: 10 point review of systems completed. All systems negative except as noted above. *Physical Exam - Vital Signs Last Vital Signs Temp Pulse Resp BP Pulse Ox 98.0 F 80 18 121/70 100 07/25/20 02:35 07/25/20 02:35 07/25/20 02:35 07/25/20 02:35 07/25/20 02:35 - Physical Exam Vital signs and nursing notes reviewed. Constitutional- Well-developed, well-nourished adult male in no acute distress or obvious discomfort. Found sitting up on edge of hospital stretcher. Answered all questions appropriately and completely. Head- Normocephalic. Ecchymosis and approx. 1cm linear full thickness laceration with oozing blood overlying left zygoma. Second approx. 5mm linear partial thickness laceration overlying nasal bridge with trace about of dried blood. No bony tenderness to R or L sides of face or skull. Eyes- Pupils 4mm and PERRL. EOMI and nonpainful. Sclerae white. Conjunctiva moist and not injected. Ears- Hearing grossly intact. Nose- No nasal discharge. Throat- Oral cavity and pharynx normal. No visible trauma. No inflammation, swelling, exudate, or lesions. Neck- Supple, trachea is midline. No midline cervical tenderness or bony step off. Able to laterally rotate neck to R and L without difficulty. Cardiovascular / Chest- Regular rate. Peripheral pulses- radial pulses full. No anterior or posterior chest wall pain or signs of trauma. Respiratory- Breathing unlabored. Speaking in multi-word responses without pausing. Gastrointestinal- abdomen is soft, non-tender, non-distended. No overlying skin lesions or obvious signs of trauma. Pelvis stable and nontender to lateral comp ression. Neuro- Alert and oriented x4. Moving all four extremities spontaneously. No facial asymmetry. No slurred speech. Skin- Warm and dry. Psych- Affect- flat. Mood- normal. Speech was non-labored, non-pressured. ED Treatment Course - RADIOLOGY Radiology Studies Ordered: Category Date Time Status HEAD CT WITHOUT CONTRAST [CT] Stat CT Scan 07/25/20 03:09 Ordered Radiograph Interpretation: Head CT: THIS IS A PRELIMINARY REPORT DATE OF SERVICE: 2020-07-25 04:01:10 IMAGES: 226 EXAM: HEAD CT WITHOUT CONTRAST HISTORY: Trauma COMPARISON: None. FINDINGS: Status post high right parietal craniotomy. The ventricular system is midline and nondilated. Cortical atrophy and small vessel ischemic changes are advanced for the patient's age. There is no bleed, mass, extra-axial fluid collection or mass effect. No skull fracture or skull lesion is identified. The visualized paranasal sinuses and mastoid air cells are clear. IMPRESSION: No evidence of acute pathology. THIS DOCUMENT HAS BEEN ELECTRONICALLY SIGNED Carlos Ballard MD 07/25/2020 04:53 EST - Medications Given in the ED: ED Medications Discontinued Medications Generic Name Dose Route Start Last Admin Trade Name Freq PRN Reason Stop Dose Admin Acetaminophen 650 mg 07/25/20 03:10 07/25/20 03:23 Tylenol - PO 07/25/20 03:11 650 mg ONCE ONE Administration Diphtheria/Tetanus/Acell Pertussis 0.5 ml 07/25/20 03:10 07/25/20 03:23 Boostrix - IM 07/25/20 03:11 0.5 ml .ONCE ONE Administration Medical Decision Making - Medical Decision Making 50 y/o male with two linear lacerations to face sustained from ground level fall. No concerning symptoms revealed. Vitals unremarkable for hypotension or tachycardia. Physical exam as described above. Low suspicion for orbital floor or zygomatic arch fracture. Will obtain HCT to eval for ICH. Ordered Tetanus booster and Tylenol for pain relief. Discussed need for wound closure. Pt declined suture and requested dermabond. Explained that sutures would likely improve cosmetic effect and provide a better closure, but he again declined. Lacerations were irrigated with sterile water and closed with dermabond. HCT unremarkable for acute pathology. Discussed physical exam findings and CT results with pt. Answered all questions. Provided return precautions. pt expressed verbal understanding and agreement with plan to discharge home with outpatient follow up. Provided copies of todays results. Case discussed with ED Attending Dr. Damon. Ousmane David M.D., PGY3 Emergency Medicine Residency Discharge - Discharge Information Problems reviewed: Yes Clinical Impression/Diagnosis: Laceration of face, multiple sites Fall from standing Qualifiers: Encounter type: initial encounter Qualified Code(s): W19.XXXA - Unspecified fall, initial encounter Condition: Good Disposition: HOME - Admission No - Follow up/Referral Referrals: Rene Ward MD [Primary Care Provider] - - Patient Discharge Instructions Patient Printed Discharge Instructions: DI for Laceration Repair With Dermabond, DI for Closed Head Injury Additional Instructions: You were seen today for cuts to your face after falling. Your head CT was normal. Your cuts were closed with Dermabond after you declined sutures. I have included more detailed instructions in this packet. Please read them. Keep the area clean and dry. You should follow up with your doctor in the next week or so to make sure you are healing well. Return to the ED for new or worsening symptoms like headache, vomiting, difficulty walking, or numbness in your arms of legs. Watch for signs of infection to the cuts. Print Language: PUERTO RICAN - Post Discharge Activity
--- NOTE | 2020-07-25 03:34 | PDOC ---
Attending Attestation - Resident Resident Name: Ousmane David - HPI HPI: 07/30/20 08:05 Pt presents to the ED complaining of small laceration beneath his eye after fall. Denies LOC. 07/30/20 08:05 07/30/20 08:06 - Physicial Exam PE: 07/30/20 08:06 Agree with resident exam. Patient is alert and in no acute distress. Neurologically intact. + 1 cm laceration beneath L eye without active bleeding. 07/30/20 08:07 - Medical Decision Making 07/30/20 08:07 PT presents to the ED complaining of laceration beneath L eye after mechanical fall. CT head performed to rule out intracrainial bleeding and is negative. LAceration repaired with dermabond. Will discharge home. Discharge - Discharge Information Problems reviewed: Yes Clinical Impression/Diagnosis: Laceration of face, multiple sites Fall from standing Qualifiers: Encounter type: initial encounter Qualified Code(s): W19.XXXA - Unspecified fall, initial encounter Condition: Good Disposition: HOME - Follow up/Referral Referrals: Rene Ward MD [Primary Care Provider] - - Patient Discharge Instructions Patient Printed Discharge Instructions: DI for Laceration Repair With Dermabond, DI for Closed Head Injury Additional Instructions: You were seen today for cuts to your face after falling. Your head CT was normal. Your cuts were closed with Dermabond after you declined sutures. I have included more detailed instructions in this packet. Please read them. Keep the area clean and dry. You should follow up with your doctor in the next week or so to make sure you are healing well. Return to the ED for new or worsening symptoms like headache, vomiting, difficulty walking, or numbness in your arms of legs. Watch for signs of infection to the cuts. Print Language: GUAMANIAN - Post Discharge Activity
== END 2020-07-25 05:35 | disposition home or self-care (01) ==
LOC: JER 02:13
PROC: 3E0234Z Introduction of Serum, Toxoid and Vaccine into Muscle, Percutaneous Approach (ICD-10-PCS; principal; 2020-07-25)
PROC: 3E033NZ Introduction of Analgesics, Hypnotics, Sedatives into Peripheral Vein, Percutaneous Approach (ICD-10-PCS; 2020-07-25)
DX: S01.81XA Laceration without foreign body of other part of head, initial encounter (principal); W19.XXXA Unspecified fall, initial encounter
CPT/HCPCS: 70450-TC; 90471; 90715; 96374; 99284-25

== ENCOUNTER 2020-07-25 10:56 | Emergency (ER) | payer OTHER ==
--- NOTE | 2020-07-25 11:06 | PDOC ---
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 Was seen earlier today for facial injuries following mechanical fall, head CT at the time was normal. Denies any fatigue, chest pain, CP, SOB, abdominal pain, lightheadedness/dizziness. Denies n/v, hematemesis, melena/hematochezia. PCP: Ed Nephro: Bridger PMH: see above Meds: see chart All: shellfish, see chart Review of Systems CONSTITUTIONAL:denies fever, chills, generalized weakness, malaise, loss of appetite HEENT:denies rhinorrhea, nasal congestion, sore throat CARDIOVASCULAR:denies chest pain, palpitations, irregular heart rate, lightheadedness RESPIRATORY:denies cough, shortness of breath, wheezing, hemoptysis GASTROINTESTINAL: denies abdominal pain, nausea, vomiting, diarrhea, constipation, melena, hematochezia GENITOURINARY:denies dysuria, frequency, hematuria MUSCULOSKELETAL:denies myalgia, arthralgia HEMATOLOGIC/IMMUNOLOGIC:reports easy bruising, denies easy bleeding ENDOCRINE: denies unexplained weight gain, unexplained weight loss NEUROLOGIC:denies headache, loss of consciousness, dizziness, unsteady gait, mental status changes, bladder or bowel incontinence Physical Exam General: awake, alert, fully oriented, in no acute distress, well developed, well nourished Head: normocephalic, abrasions to L cheek and nose with associated edema Eyes: PERRL, EOMI, icteric sclera, conjunctiva clear ENT: Auricles normal inspection, hearing grossly normal, oropharynx clear without exudates, no nasal congestion, moist mucous membranes Lung: equal breath sounds b/l, CTA b/l, no crackles, wheezes; no distress, speaks full sentences Heart: RRR, normal S1, S2, no murmurs appreciated Abdomen: soft, non tender, normoactive bowel sounds, no guarding, rebound, masses Extremities: no edema, no erythema or tenderness, DP/PT pulses 2+ and symmetric Neuro: CN2-12 grossly intact, moves all extremities, normal speech, normal gait, sensation intact Skin: warm, dry, multiple ecchymoses MDM 50yo M PMH HTN, HLD, 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 Vitals WNL DDx including but not limited to: UGIB (esophageal varices) vs LGIB (AVM, colon CA), chronic anemia Workup: labs, cxr, ekg EKG: normal sinus rhythm, HR 84bpm, VT 156ms, QRS 94ms, QTc 541ms, prolonged QT, TWI in avr, v1 CXR - slight improvement of right base with residual atelectasis or infiltrate. persistent metallic foreign body by upper right scapula and distal right clavicle Labs: no leukocytosis, anemia (7.3), PT/INR WNL, hypokalemia, Cr 2.6 (improved from previous) - Will consult Dr. Sparks - Per Dr. Sparks and Dr. Coombs, pt states that we can give 1U and discharge patient for f/u dialysis and repeat H&H on Monday - Will order 1U PRBC 07/25/20 14:26 Pt reports BRBPR and dark stool Informed patient he will need a stool occult testing - pt refused testing agreeable to admission 07/25/20 15:[address] Farnsworth regarding admission States that he will not admit patient because he has been noncompliant with GI follow up here and admission would not benefit further evaluation. Recommended transfer to [facility] or [facility]. Spoke with patient who would prefer AMA, since he has an outpatient appointment with Dr. De La Torre @ [facility] on Monday. Attending spoke with patient who was amenable to transfer to [facility]. 07/25/20 16:32 Spoke with [facility], Dr. Kilgore transfer who auto-accepted care of patient Spoke with Dr. De La Torre, pt's GI, who states that patient needs double balloon enteroscopy, who believes that transfer would not offer additional care. States that patient's most recent endoscopy on 06/23 did not reveal source of bleeding. Disposition transfer Spoke with Dr. Watson regarding this patient - states that Dr. Subramanian @ [facility] would be able to perform balloon enteroscopy. Past History - Medical History Allergies/Adverse Reactions: Allergies Allergy/AdvReac Type Severity Reaction Status Date / Time piperacillin Allergy Severe Swelling Verified 07/25/20 11:07 sertraline [From Zoloft] Allergy Severe Difficulty Verified 07/25/20 11:07 Breathing shellfish derived Allergy Severe Swelling Verified 07/25/20 11:07 latex Allergy Mild Rash Verified 07/25/20 11:07 tazobactam [From Zosyn] Allergy Difficulty Verified 07/25/20 11:07 Breathing Home Medications: Ambulatory Orders Calcitriol [Calcitriol -] 0.25 mcg PO Q2D 12/03/19 Gabapentin 300 mg PO HS 12/03/19 Levothyroxine [Synthroid -] 50 mcg PO DAILY 12/03/19 Omeprazole 40 mg PO DAILY 12/03/19 Buspirone HCl [Buspar -] 5 mg PO BID 01/12/20 Amlodipine Besylate [Norvasc -] 5 mg PO DAILY 30 Days #30 tablet 03/07/20 Rifaximin [Xifaxan -] 550 mg PO BID #60 tablet 03/09/20 Lisinopril [Prinivil] 10 mg PO DAILY 05/03/20 Fluoxetine HCl [Prozac] 40 mg PO DAILY 05/22/20 levETIRAcetam [Keppra -] 500 mg PO BID tablet 05/23/20 Diphenhydramine HCl 50 mg PO PRN PRN 06/06/20 Folic Acid 1 mg PO DAILY 06/06/20 Lactulose 10 gm PO ASDIR 06/06/20 Thiamine HCl [B-1] 100 mg PO DAILY 06/06/20 Naltrexone HCl 50 mg PO DAILY 07/24/20 traZODone HCL [Trazodone HCl] 50 mg PO HS PRN #7 tablet 07/24/20 Anemia: Yes Asthma: No Cancer: No Cardiac Disorders: No CVA: No COPD: No CHF: No Dementia: No Diabetes: No Dialysis: Yes (tues, thurs, Sat) GI Disorders: Yes (cirrhosis etoh abuse; esophageal varices) Disorders: No HTN: Yes Hypercholesterolemia: No Kidney Stones: No Liver Disease: Yes (CIRRHOSIS ) Psychiatric Problems: Yes (DEPRESSION, ANXEITY) Seizures: Yes Thyroid Disease: Yes - Surgical History Abdominal Surgery: No Appendectomy: No Cardiac Surgery: No Cholecystectomy: No GI Surgery: Yes (esophageal varicies) Lung Surgery: No Neurologic Surgery: No Orthopedic Surgery: Yes (right shoulder due to dislocation 6 years ago) - Reproductive History Testicular Surgery: No - Immunization History Immunization Up to Date: Yes - Psycho-Social/Smoking History Smoking Status: No Smoking History: Current some day smoker Have you smoked in the past 12 months: No Number of Cigarettes Smoked Daily: 20 If you are a former smoker, when did you quit?: 2010 Cigars Per Day: 0 'Breaking Loose' booklet given: 05/22/20 ED Treatment Course - LABORATORY CBC & Chemistry Diagram: 07/25/20 11:40 07/25/20 11:40 Discharge - Discharge Information Problems reviewed: Yes Clinical Impression/Diagnosis: ESRD (end stage renal disease) on dialysis, GI bleed Anemia Qualifiers: Anemia type: other cause Other causes of anemia: chronic disease, other Qualified Code(s): D63.8 - Anemia in other chronic diseases classified elsewhere Liver cirrhosis Qualifiers: Hepatic cirrhosis type: other cirrhosis Qualified Code(s): K74.69 - Other cirr hosis of liver Condition: Stable Disposition: HOME - Admission No - Follow up/Referral Referrals: Rene Ward MD [Primary Care Provider] - Dang Sparks MD [Staff Physician] - - Patient Discharge Instructions Patient Printed Discharge Instructions: DI for Blood Transfusion Additional Instructions: You came into the ER low blood count/anemia. In the ED, you were evaluated with labs, EKG. Your blood work indicates that you were anemia to 7.3. We spoke with Dr. Sparks who recommended that you receive a blood transfusion and that he would follow up with you on Monday for dialysis You were advised to follow up with your hardware trainer for dialysis on Monday. Come back to the ER immediately with any new or worsening concerns. Thank you for coming to the [facility] ER. We hope you feel better soon! - Post Discharge Activity
[2020-07-25 11:14] VITALS: BP 141/68; PULSE 86; TEMP 98.1; BMI 29.5
[2020-07-25 12:08] LABS: BASO % 0.9 % (0-2.0); EOS % 6.4 % (0-4.5); HEMATOCRIT 21.6 % (35.4-49); HEMOGLOBIN 7.3 GM/dL (11.7-16.9); LYMPH % 14.8 % (8-40); MCH 31.1 pg (25.7-33.7); MEAN CELL VOLUME 91.5 fl (80-96); MEAN PLT VOLUME 9.3 fl (7.5-11.1); MONO % 11.6 % (3.8-10.2); NEUT % 66.3 % (42.8-82.8); PLATELET COUNT 94 K/MM3 (134-434); RBC 2.36 M/mm3 (4.00-5.60); RDW 20.6 % (11.9-15.9); WHITE BLOOD COUNT 4.1 K/mm3 (4.0-10.0)
[2020-07-25 12:14] LABS: INR 0.99 (0.83-1.09); PROTHROMBIN TIME (PATIENT) 11.7 SEC (9.7-13.0)
[2020-07-25 12:17] LABS: ACTIVATED PTT 19.2 SECONDS (25.2-36.5)
[2020-07-25 12:38] LABS: ALBUMIN 2.8 g/dl (3.4-5.0); BILIRUBIN,TOTAL 0.7 mg/dL (0.2-1); BLOOD UREA NITROGEN 11.3 mg/dL (7-18); CALCIUM 7.9 mg/dL (8.5-10.1); CREATININE 2.6 mg/dL (0.55-1.3); POTASSIUM 3.3 mmol/L (3.5-5.1); TOT PROT 5.9 g/dl (6.4-8.2)
[2020-07-25 12:51] LABS: ANISOCYTOSIS 1+
[2020-07-25 12:52] LABS: ROULEAU 1+
[2020-07-25 12:54] LABS: PLATELET ESTIMATE DECREASED
--- NOTE | 2020-07-25 14:09 | PDOC ---
Documentation entered by Delta White SCRIBE, acting as scribe for Marietta Rodriguez MD. Marietta Rodriguez MD: This documentation has been prepared by the Cindy david Xhesika, SCRIBE, under my direction and personally reviewed by me in its entirety. I confirm that the documentation accurately reflects all work, treatment, procedures, and medical decision making performed by me. Attending Attestation - Resident Resident Name: Hailee Monsivais - ED Attending Attestation I have performed the following: I have examined & evaluated the patient, The case was reviewed & discussed with the resident, I agree w/resident's findings & plan, Exceptions are as noted - HPI HPI: 07/25/20 11:12 50 year old male h/o seizures,etoh abuse, DM, CKD / ESRD, (tues/ , sat) hTN HLD, cirrhosis liver failure s/p TIPS , prior GI bleed, anemia, in ED from [facility] for 6.3 hemoglobin. pt was seen early am in ED due to a fall at home, was climbing over back of his couch, fell hit face on drawer chest, was seen in ED had evaluation with ct head, and maxillofacial which was negative. left ED and went to dialysis this am, found to have low hgb. pt denies feeling lightheaded .no cp no sob. no other complaints. Allergies: latex, piperacillin, sertraline, shellfish derived, tazobactam PCP: Dr. Ed Luna, [facility] 07/25/20 14:23 - Physicial Exam PE: 07/25/20 14:26 Patient is awake alert and oriented the examination of face demonstrates some left infraorbital edema and superficial abrasion as well as abrasion over the bridge of the nose lungs are clear bilaterally heart is regular without murmurs rubs or gallops abdomen is soft nontender extremities are warm well perfused otherwise atraumatic patient neurologically is alert and oriented x3 skin is warm and dry except for the ecchymosis and abrasions described on his face - Medical Decision Making 07/25/20 14:27 50-year-old male history of end-stage renal disease cirrhosis hypertension hyperlipidemia diabetes here from dialysis with a low hemoglobin also has a history of prior GI bleeds and known varices status post TIPS procedure. Discussed with patient renal doctor's morning and Dr. Coombs both agreed the patient could likely receive a transfusion if hemoglobin is near baseline and follow-up outpatient however while in the ED the patient had a bloody bowel movement hemoglobin was 7 he will be ordered for 1 unit transfusion due to his history of prior significant GI bleedings it is felt he should be observed on admission we will order IV Protonix for him and contact Dr. Levin/her body for admission 07/25/20 16:[address] alarcon,request pt to be transferred to [facility]. dw pt GI at [facility]. states most recent endoscopy no variceals. did not find source for bleed. pt requires double blubble enteroscopy which they only do at [facility], however ususally observe, and transfuse. will see pt however on transfer to [facility]. d/w transfer center, pt was accepted by DR Kilgore, Heart Score/ECG Review #1 General ECG Interpretation: Sinus Rhythm, Normal Rate (84), Normal Intervals, No acute ischemic changes Compared to previous ECG there are: Other (QTC 541) Discharge - Discharge Information Problems reviewed: Yes Clinical Impression/Diagnosis: ESRD (end stage renal disease) on dialysis, GI bleed Anemia Qualifiers: Anemia type: other cause Other causes of anemia: chronic disease, other Qualified Code(s): D63.8 - Anemia in other chronic diseases classified elsewhere Liver cirrhosis Qualifiers: Hepatic cirrhosis type: other cirrhosis Qualified Code(s): K74.69 - Other cirrhosis of liver Condition: Stable Disposition: HOME - Follow up/Referral Referrals: Rene Ward MD [Primary Care Provider] - Dang Sparks MD [Staff Physician] - - Patient Discharge Instructions Patient Printed Discharge Instructions: DI for Blood Transfusion Additional Instructions: You came into the ER low blood count/anemia. In the ED, you were evaluated with labs, EKG. Your blood work indicates that you were anemia to 7.3. We spoke with Dr. Sparks who recommended that you receive a blood transfusion and that he would follow up with you on Monday for dialysis You were advised to follow up with your absorption plant operator for dialysis on Monday. Come back to the ER immediately with any new or worsening concerns. Thank you for coming to the [facility] ER. We hope you feel better soon! - Post Discharge Activity
[2020-07-25] MEDS ORDERED: PANTOPRAZOLE SODIUM 40 MG VIAL IVPUSH ONE (14:18)
[2020-07-25] MEDS ORDERED: PANTOPRAZOLE SODIUM 40 MG VIAL ONE (14:55)
--- NOTE | 2020-07-26 12:04 | EKG ---
Test Reason : Blood Pressure : / mmHG Vent. Rate : 084 BPM Atrial Rate : 084 BPM P-R Int : 156 ms QRS Dur : 094 ms QT Int : 458 ms P-R-T Axes : 032 033 066 degrees QTc Int : 541 ms NORMAL SINUS RHYTHM PROLONGED QT NONSPECIFIC ST ABNORMALITY ABNORMAL ECG WHEN COMPARED WITH ECG OF 06-JUL-2020 04:53, NO SIGNIFICANT CHANGE WAS FOUND Confirmed by YOLI JONES MD ([id number]) on 07/26/2020 12:03:57 PM Referred By: Confirmed By:YOLI JONES MD
== END 2020-07-25 19:16 | disposition home or self-care (01) ==
LOC: JER 10:56
PROC: 3E0234Z Introduction of Serum, Toxoid and Vaccine into Muscle, Percutaneous Approach (ICD-10-PCS; principal; 2020-07-25)
PROC: 3E023NZ Introduction of Analgesics, Hypnotics, Sedatives into Muscle, Percutaneous Approach (ICD-10-PCS; 2020-07-25)
DX: N18.6 End stage renal disease (principal); D63.8 Anemia in other chronic diseases classified elsewhere; K74.69 Other cirrhosis of liver
CPT/HCPCS: 36415; 36430; 71045-TC-FY; 80053; 84484; 85025; 85610; 85730; 86850; 86900; 86901; 86922; 90471; 93005; 93010; 96374; 99284-25; P9058

== ENCOUNTER 2020-08-18 12:05 | Inpatient (IN) | payer OTHER ==
--- NOTE | 2020-08-18 12:26 | PDOC ---
History of Present Illness - General Chief Complaint: Revisit, Lab Variance Stated Complaint: SENT BY PCP Time Seen by Provider: 08/18/20 12:21 History Source: Patient - History of Present Illness Timing/Duration: other Past History - Medical History Allergies/Adverse Reactions: Allergies Allergy/AdvReac Type Severity Reaction Status Date / Time piperacillin Allergy Severe Swelling Verified 08/18/20 12:21 sertraline [From Zoloft] Allergy Severe Difficulty Verified 08/18/20 12:21 Breathing shellfish derived Allergy Severe Swelling Verified 08/18/20 12:21 latex Allergy Mild Rash Verified 08/18/20 12:21 tazobactam [From Zosyn] Allergy Difficulty Verified 08/18/20 12:21 Breathing Home Medications: Ambulatory Orders Gabapentin 300 mg PO HS 12/03/19 Buspirone HCl [Buspar -] 5 mg PO BID 01/12/20 Rifaximin [Xifaxan -] 550 mg PO BID #60 tablet 03/09/20 Lisinopril [Prinivil] 10 mg PO DAILY 05/03/20 Fluoxetine HCl [Prozac] 40 mg PO DAILY 05/22/20 levETIRAcetam [Keppra -] 500 mg PO BID tablet 05/23/20 Folic Acid 1 mg PO DAILY 06/06/20 Thiamine HCl [B-1] 100 mg PO DAILY 06/06/20 Naltrexone HCl 50 mg PO DAILY 07/24/20 Amlodipine Besylate [Norvasc -] 10 mg PO DAILY 08/18/20 Ferrous Sulfate 325 mg PO DAILY 08/18/20 Pantoprazole Sodium [Protonix] 40 mg PO Q12H 08/18/20 Sertraline HCl 50 mg PO Q12H 08/18/20 Anemia: Yes Asthma: No Cancer: No Cardiac Disorders: No CVA: No COPD: No CHF: No Dementia: No Diabetes: No Dialysis: Yes (tues, th, Sat) GI Disorders: Yes (cirrhosis etoh abuse; esophageal varices) Disorders: No HTN: Yes Hypercholesterolemia: No Kidney Stones: No Liver Disease: Yes (CIRRHOSIS ) Psychiatric Problems: Yes (DEPRESSION, ANXEITY) Seizures: Yes Thyroid Disease: Yes - Surgical History Abdominal Surgery: No Appendectomy: No Cardiac Surgery: No Cholecystectomy: No GI Surgery: Yes (esophageal varicies) Lung Surgery: No Neurologic Surgery: No Orthopedic Surgery: Yes (right shoulder due to dislocation 6 years ago) - Reproductive History Testicular Surgery: No - Immunization History Immunization Up to Date: Yes - Psycho-Social/Smoking History Smoking Status: No Smoking History: Current some day smoker Have you smoked in the past 12 months: No Number of Cigarettes Smoked Daily: 20 If you are a former smoker, when did you quit?: 2010 Cigars Per Day: 0 'Breaking Loose' booklet given: 05/22/20 Review of Systems - Review of Systems Constitutional: No: Chills, Fever HEENTM: Yes: Other Cardiac (ROS): No: Chest Pain, Lightheadedness, Palpitations, Syncope ABD/GI: No: Blood Streaked Bowels, Nausea, Rectal Bleeding, Vomiting, Abdominal cramping, Tarry Stools *Physical Exam - Physical Exam General Appearance: Yes: Appropriately Dressed. No: Apparent Distress HEENT: positive: Normal Voice Respiratory/Chest: positive: Lungs Clear, Normal Breath Sounds. negative: Respiratory Distress Cardiovascular: positive: Regular Rate, S1, S2 ED Treatment Course - LABORATORY CBC & Chemistry Diagram: 08/19/20 07:15 08/19/20 07:15 Medical Decision Making - Medical Decision Making 08/18/20 12:24 50 year old male h/o HLD, HTN, DM, ESRD on HD (T/R/S), ETOH abuse, seizures, liver cirrhosis, s/p TIPs, varices, prior GI bleed (s/p recent admission for same and transferred to [facility]), anemia s/p multiple transfusions (baseline ~7-8), presents. Patient states last hemoglobin patient states he refused to come in until today. He came into ED and his last dialysis. Was last dialyzed 1 week ago. Reports chronic dyspnea on exertion with no acute changes. of note, pt was admitted for anemia ~2 weeks ago and was transferred to GI MD, Dr De La Torre, at [facility]. Per records pet has on his person, and transfuse to goal of 7/8. Patient had an EGD and colonoscopy done which were nondiagnostic. PillCam study reported possible fresh blood in the first 20% of the small bowel but follow-up single balloon enteroscopy did not reveal any active bleeding. Pt was started on octreotide while inpatient and was told to follow-up in GI clinic in 1 to 2 weeks see exam Worsening anemia in pt w/ multiple comorbidities including ESRD on HD but non- compliant, ETOH abuse, varices, anemia w/ multiple transfusions w/ no clear source of bleeding on recent GI w/u at [facility] Stable here and well abby -labs -tranfuse -admit -renal c/s to arrange HD 08/18/20 14:41 Spoke to GI staff at [facility] who confirms no obvious source of bleed on work-up 2 weeks ago. States patient was supposed to follow-up in GI clinic but called to cancel last week. Per staff, requesting that we do an alcohol level here. Made aware of patient's disposition. Patient has since been evaluated by Dr. Sparks of renal who recommends transfusing 2 units and will either arrange hemodialysis later on today or in the a.m. Discharge - Discharge Information Problems reviewed: Yes Clinical Impression/Diagnosis: Anemia Qualifiers: Anemia type: other cause Other causes of anemia: chronic disease, other Qualified Code(s): D63.8 - Anemia in other chronic diseases classified elsewhere Condition: Fair - Admission Yes - Follow up/Referral - Patient Discharge Instructions - Post Discharge Activity
[2020-08-18 13:01] LABS: EOS % 4.9 % (0-4.5); HEMATOCRIT 15.3 % (35.4-49); LYMPH % 22.9 % (8-40); MCH 31.9 pg (25.7-33.7); MCHC 34.2 g/dl (32.0-35.9); MEAN CELL VOLUME 93.2 fl (80-96); MEAN PLT VOLUME 9.4 fl (7.5-11.1); MONO % 8.5 % (3.8-10.2); NEUT % 62.7 % (42.8-82.8); PLATELET COUNT 63 K/MM3 (134-434); RBC 1.65 M/mm3 (4.00-5.60); RDW 17.3 % (11.9-15.9); WHITE BLOOD COUNT 3.6 K/mm3 (4.0-10.0)
[2020-08-18 13:04] LABS: HEMOGLOBIN 5.2 GM/dL (11.7-16.9)
[2020-08-18 13:05] LABS: INR 1.27 (0.83-1.09)
[2020-08-18 13:40] LABS: ALBUMIN 2.3 g/dl (3.4-5.0); ALK PHOS 209 U/L (45-117); ANION GAP 12 MMOL/L (8-16); BILIRUBIN,TOTAL 1.2 mg/dL (0.2-1); BLOOD UREA NITROGEN 38.1 mg/dL (7-18); CALCIUM 7.1 mg/dL (8.5-10.1); CHLORIDE 100 mmol/L (98-107); CO2 20 mmol/L (21-32); CREATININE 5.9 mg/dL (0.55-1.3); GLUCOSE,RANDOM 88 mg/dL (74-106); POTASSIUM 3.8 mmol/L (3.5-5.1); SGOT/AST 81 U/L (15-37); SGPT/ALT 28 U/L (13-61); SODIUM 131 mmol/L (136-145); TOT PROT 5.2 g/dl (6.4-8.2)
--- NOTE | 2020-08-18 13:44 | CONSULT ---
Consultation: REQUESTING PROVIDER: ED CONSULT REQUEST: We have been asked to medically evaluate this patient for ESRD. HISTORY OF PRESENT ILLNESS: Pt. is a 50 y.o. M w/ PMHx. of ESRD(HD on , , Mon), cirrhosis( s/p TIPs), Esophageal varices( s/p banding), Hx. of GI bleeding( s/p EGD/ Colonscopy and balloon enteroscopy 06/15- no active bleeding found), Hypothyroidism, thrombocytopenia, depession and anxiety presents at the request of Dr. Sparks for a HgB of 5 during routine blood work at Dialysis. Pt. was recommended to go to the ED last week but Pt. states "he did not feel like coming in then." Pt.'s last HD was last week Monday as he was unable to get HD because of his low Hgb. Pt. denies any recent drinking and states his last cigarette was last week. Pt. denies drug use currently. Pt. only endorses shortness of breath. He denies chest pain, numbness/tingling, any episodes of bleeding in stool or emesis. Pt. denies any bruising or leaking from the access site. REVIEW OF SYSTEMS: As above PHYSICAL EXAMINATION Vital Signs - 24 hr 08/18/20 12:21 Temperature 97.6 F Pulse Rate 78 Respiratory 18 Rate Blood Pressure 179/84 H O2 Sat by Pulse 100 Oximetry (%) GENERAL: Awake, alert, and fully oriented, in no acute distress. HEAD: Normal with no signs of trauma. EYES: Sclera anicteric, conjunctiva clear. EARS, NOSE, THROAT: Moist mucous membranes. NECK: Normal range of motion LUNGS: Breath sounds equal, clear to auscultation bilaterally. No wheezes, and no crackles. No accessory muscle use. HEART: Regular rate and rhythm, normal S1 and S2 without murmur ABDOMEN: Soft, nontender, not distended MUSCULOSKELETAL: Normal range of motion at all joints. UPPER EXTREMITIES: 2+ radial pulses, warm, well-perfused. No clubbing. Cap refill <3 seconds. RUE fistula with frills present. LOWER EXTREMITIES: warm, well-perfused. No calf tenderness. No peripheral edema. NEUROLOGICAL: Normal speech. Normal gait. PSYCHIATRIC: Pt. resistant to answering questions about medical adherence SKIN: Warm, dry, Increased pallor Laboratory Results - last 24 hr 08/18/20 08/18/20 08/18/20 12:30 12:30 12:30 WBC 3.6 L RBC 1.65 L Hgb 5.2 L* Hct 15.3 L D MCV 93.2 MCH 31.9 MCHC 34.2 RDW 17.3 H Plt Count 63 L D MPV 9.4 Absolute Neuts (auto) 2.2 Neutrophils % 62.7 Lymphocytes % 22.9 D Monocytes % 8.5 Eosinophils % 4.9 H Basophils % 1.0 Nucleated RBC % 0 PT with INR 15.00 H INR 1.27 H Crossmatch See Detail ASSESSMENT/PLAN: Pt. is a 50 y.o. M w/ PMHx. of ESRD(HD on , , Mon), cirrhosis( s/p TIPs), Esophageal varices( s/p banding), Hx. of GI bleeding( s/p EGD/ Colonscopy and balloon enteroscopy 06/15- no active bleeding found), Hypothyroidism, thrombocytopenia, derpession and anxiety presents at the request of Dr. Sparks for a HgB of 5 during routine blood work at Dialysis. #ESRD #Anemia of Chronic Disease, cannot r/o UGIB and GIB 2/2 Hemmorhoids #Esophageal Varices #Hx. of GI Bleeding #EtOH Abuse #Cirrhosis will transfuse 2 units now Potassium: 3.8; HCO3: 20 HD tomorrow morning as Pt. has no clinical emergency for HD and too anemic for HD f/u EKG recommend EtOH and smoking cessation re-emphasize with Pt. importance of medication and HD adherence. BP noted to be markedly elevated, follow up repeat VS Renal Diet d/w ED that Pt. had recent EGD and colonoscopy and enterscopy, f/u medical records from [facility] Dispo: We will continue to follow the patient. Thank you for this consultative opportunity. Visit type - Emergency Visit Emergency Visit: Yes Care time: The patient presented to the Emergency Department on the above date and was hospitalized for further evaluation of their emergent condition. - New Patient This patient is new to me today: Yes Date on this admission: 08/18/20 - Critical Care Critical Care patient: No ATTENDING PHYSICIAN STATEMENT I saw and evaluated the patient. I reviewed the resident's note and discussed the case with the resident. I agree with the resident's findings and plan as documented. SUBJECTIVE: OBJECTIVE: ASSESSMENT AND PLAN:
--- NOTE | 2020-08-18 14:15 | PDOC ---
*Physical Exam - Vital Signs Last Vital Signs Temp Pulse Resp BP Pulse Ox 97.6 F 78 18 179/84 H 100 08/18/20 12:21 08/18/20 12:21 08/18/20 12:21 08/18/20 12:21 08/18/20 12:21 ED Treatment Course - LABORATORY CBC & Chemistry Diagram: 08/18/20 12:30 08/18/20 12:30 - ADDITIONAL ORDERS Additional order review: Laboratory Results 08/18/20 08/18/20 08/18/20 12:30 12:30 12:30 PT with INR 15.00 H INR 1.27 H Sodium 131 L Potassium 3.8 Chloride 100 Carbon Dioxide 20 L Anion Gap 12 BUN 38.1 H Creatinine 5.9 H Est GFR (CKD-EPI)AfAm 12.01 Est GFR (CKD-EPI)NonAf 10.36 Random Glucose 88 Calcium 7.1 L Total Bilirubin 1.2 H AST 81 H ALT 28 Alkaline Phosphatase 209 H Total Protein 5.2 L Albumin 2.3 L Blood Type B POSITIVE Crossmatch See Detail 08/18/20 12:30 RBC 1.65 L MCV 93.2 MCHC 34.2 RDW 17.3 H MPV 9.4 Neutrophils % 62.7 Lymphocytes % 22.9 D Monocytes % 8.5 Eosinophils % 4.9 H Basophils % 1.0 Medical Decision Making - Medical Decision Making 08/18/20 14:14 Patient seen and evaluated with the nurse practitioner. I agree with the overall evaluation, assessment, and management with the following summary of visit: 50-year-old male with multiple medical problems including end-stage renal disease on dialysis sent for severe anemia diagnosed on outpatient labs. Exam and Work-up as noted Arrange for admission Discharge - Discharge Information Problems reviewed: Yes Clinical Impression/Diagnosis: Anemia Qualifiers: Anemia type: other cause Other causes of anemia: chronic disease, other Qualified Code(s): D63.8 - Anemia in other chronic diseases classified elsewhere Condition: Fair - Follow up/Referral Referrals: Rene Ward MD [Primary Care Provider] - - Patient Discharge Instructions - Post Discharge Activity
--- NOTE | 2020-08-18 14:46 | PN ---
Teaching Attending Note Name of Resident: Brady Carmichael (Nephrology) ATTENDING PHYSICIAN STATEMENT I saw and evaluated the patient. I reviewed the resident's note and discussed the case with the resident. I agree with the resident's findings and plan as documented. Renal Pt is a 50 year old male with pmhx of esrd on HD, anemia, etoh abuse, and liver cirrhosis who I sent in for anemia. He was found to have a hg of about 5 last week. He is awake and alert. He missed his last few HD sessions. pmhx esrd anemia liver corrhosis allergies pcn sertraline shellfish latex tazobactam family hx non contrib social hx etoh abuse Laboratory Tests 08/18/20 08/18/20 08/18/20 12:30 12:30 12:30 WBC 3.6 L Hgb 5.2 L* Plt Count 63 L D PT with INR 15.00 H INR 1.27 H Sodium 131 L Potassium 3.8 Carbon Dioxide 20 L BUN 38.1 H Creatinine 5.9 H Last Vital Signs Temp Pulse Resp BP Pulse Ox 97.6 F 78 18 179/84 H 100 08/18/20 12:21 08/18/20 12:21 08/18/20 12:21 08/18/20 12:21 08/18/20 12:21 cardio s1s2 pulm clear gi soft ext trace edema neuro awake and aler Impression 1. ESRD 2. htn 3. hx etoh abuse 4. liver cirrhosis with tips 5. anemia 6. hx GI bleed 7. eosinophilia 8. PNA 9. missed HD Plan - transfuse 2 units prbc - can give 40 mg of lasix after first unit - will arrange for HD for tomorrow morning - renal diet once eating - will give epogen - check iron studies - discussed with er - GI luis fernando
--- NOTE | 2020-08-18 15:01 | HP ---
CHIEF COMPLAINT: anemia from PCP PCP: Dr Ward HISTORY OF PRESENT ILLNESS: Patient is a 50 y/o male with a history of ESRD T, TH, Sat, cirhosis s/p TIPS, Esophogeal varicies, GI bleed s/p clonoscopy (06/15) who presents for anemia from out patient office. Patient reports that he has been feeling really tired for weeks, has difficulty walking up hills or stairs. He had dialysis last monday where he mentioned these symptoms and they simon blood. he has not had dialysis since Monday. He was at [facility] for GI bleeding and he was transferred to [facility] for further management. A that time he stated blood was found in his stool. He underwent an endoscopy, colonoscopy, and pill capsule, he stated everything was normal but he was found to have varices. Patient currently states he has no GI bleeding. Patient denies fever, chills, nausea, vomiting, chest pain. Patient reports his ESRD was though to be due to his past diabetes, but he no longer has diabetes. Baseline hgb ~8 ER course was notable for: (1) (2) (3) Recent Travel: denies PAST MEDICAL HISTORY: ESRD T, TH, Sat, cirhosis s/p TIPS, Esophogeal varicies, GI bleed s/p clonoscopy PAST SURGICAL HISTORY: R arm fistula Social History: Smoking: half a pack a day Alcohol: denies, reports in the past he used to abuse Drugs: denies Allergies piperacillin Allergy (Severe, Verified 08/18/20 12:21) Swelling sertraline [From Zoloft] Allergy (Severe, Verified 08/18/20 12:21) Difficulty Breathing shellfish derived Allergy (Severe, Verified 08/18/20 12:21) Swelling latex Allergy (Mild, Verified 08/18/20 12:21) Rash tazobactam [From Zosyn] Allergy (Verified 08/18/20 12:21) Difficulty Breathing HOME MEDICATIONS: Home Medications Medication Instructions Recorded Calcitriol [Calcitriol -] 0.25 mcg PO Q2D 12/03/19 Gabapentin 300 mg PO HS 12/03/19 Levothyroxine [Synthroid -] 50 mcg PO DAILY 12/03/19 Omeprazole 40 mg PO DAILY 12/03/19 Buspirone HCl [Buspar -] 5 mg PO BID 01/12/20 Amlodipine Besylate [Norvasc -] 5 mg PO DAILY 30 Days #30 tablet 03/07/20 Rifaximin [Xifaxan -] 550 mg PO BID #60 tablet 03/09/20 Lisinopril [Prinivil] 10 mg PO DAILY 05/03/20 Fluoxetine HCl [Prozac] 40 mg PO DAILY 05/22/20 levETIRAcetam [Keppra -] 500 mg PO BID tablet 05/23/20 Diphenhydramine HCl 50 mg PO PRN PRN 06/06/20 Folic Acid 1 mg PO DAILY 06/06/20 Lactulose 10 gm PO ASDIR 06/06/20 Thiamine HCl [B-1] 100 mg PO DAILY 06/06/20 Naltrexone HCl 50 mg PO DAILY 07/24/20 traZODone HCL [Trazodone HCl] 50 mg PO HS PRN #7 tablet 07/24/20 REVIEW OF SYSTEMS CONSTITUTIONAL: generalized weakness Absent: fever, chills, diaphoresis, malaise, loss of appetite, weight change HEENT: Absent: rhinorrhea, nasal congestion, throat pain, throat swelling, difficulty swallowing, mouth swelling, ear pain, eye pain, visual changes CARDIOVASCULAR: Absent: chest pain, syncope, palpitations, irregular heart rate, lightheadedness, peripheral edema RESPIRATORY: Absent: cough, shortness of breath, dyspnea with exertion, orthopnea, wheezing, stridor, hemoptysis GASTROINTESTINAL: Absent: abdominal pain, abdominal distension, nausea, vomiting, diarrhea, constipation, melena, hematochezia GENITOURINARY: Absent: dysuria, frequency, urgency, hesitancy, hematuria, flank pain, genital pain MUSCULOSKELETAL: Absent: myalgia, arthralgia, joint swelling, back pain, neck pain SKIN: Absent: rash, itching, pallor HEMATOLOGIC/IMMUNOLOGIC: Absent: easy bleeding, easy bruising, lymphadenopathy, frequent infections ENDOCRINE: Absent: unexplained weight gain, unexplained weight loss, heat intolerance, cold intolerance NEUROLOGIC: Absent: headache, focal weakness or paresthesias, dizziness, unsteady gait, seizure, mental status changes, bladder or bowel incontinence PSYCHIATRIC: Absent: anxiety, depression, suicidal or homicidal ideation, hallucinations. PHYSICAL EXAMINATION Vital Signs - 24 hr 08/18/20 12:21 Temperature 97.6 F Pulse Rate 78 Respiratory 18 Rate Blood Pressure 179/84 H O2 Sat by Pulse 100 Oximetry (%) GENERAL: Awake, alert, and fully oriented, in no acute distress. HEAD: Normal with no signs of trauma. EYES: Pupils equal, round and reactive to light, extraocular movements intact, sclera mildly icteric EARS, NOSE, THROAT: Moist mucous membranes. LUNGS: Breath sounds equal, clear to auscultation bilaterally. No wheezes, and no crackles. No accessory muscle use. HEART: Regular rate and rhythm, normal S1 and S2 without murmur, rub or gallop. ABDOMEN: Soft, nontender, not distended, normoactive bowel sounds, no guarding, no rebound, no masses. : patient refused rectal exam MUSCULOSKELETAL: Normal range of motion at all joints. LOWER EXTREMITIES: No peripheral edema. PSYCHIATRIC: Cooperative. Good eye contact. Appropriate mood and affect. SKIN: Warm, dry, normal turgor, no rashes or lesions noted, normal capillary ref ill. CBC, BMP 08/18/20 12:30 08/18/20 12:30 ASSESSMENT/PLAN: Patient is a 50 y/o male with a history of ESRD T, TH, Sat, cirhosis s/p TIPS, Esophogeal varicies, GI bleed s/p clonoscopy (06/15) who presents for anemia from out patient office. #symptomatic anemia - likely 2/2 to ESRD - will give 2 units, f/u CBC - low suspicion for GI bleed, but patient has a very pertinent hx, will f/u FOBT - protonix 40 IV bid for ppx - transfuse to level 7 - given EPO - on ferrous sulfate, vitamin B1, folic acid - lasix 40 after PRBC #ESRD - followed by Dr. Sparks - for dialysis tomorrow #Cirrhosis with TIPS - continue rifaxin - low suspicion for SBP, n fever #HTN - continue amlodipine and lisinopril #depression - continue sertraline, buspar, and fluoxetine dispo: monitor on med/surg Family Medical History Family History: As Documented Visit type - Emergency Visit Emergency Visit: Yes ED Registration Date: 08/18/20 Care time: The patient presented to the Emergency Department on the above date and was hospitalized for further evaluation of their emergent condition. - New Patient This patient is new to me today: Yes Date on this admission: 08/19/20 - Critical Care Critical Care patient: No ATTENDING PHYSICIAN STATEMENT I saw and evaluated the patient. I reviewed the resident's note and discussed the case with the resident. I agree with the resident's findings and plan as documented. SUBJECTIVE: OBJECTIVE: ASSESSMENT AND PLAN:
[2020-08-18] MEDS ORDERED: SERTRALINE HCL 50 MG TABLET (FP) PO SCH (16:15)
[2020-08-18] MEDS ORDERED: amLODIPine BESYLATE 5 MG TABLET (FP) ONE (16:20)
[2020-08-18] MEDS ORDERED: FERROUS SO4 325 MG TABLET (FP) ONE (16:21)
[2020-08-18] MEDS ORDERED: LISINOPRIL 5 MG TABLET ONE (16:21)
[2020-08-18] MEDS: THIAMINE HCL 100 MG TABLET (FP) PO SCH (17:14)
[2020-08-18] MEDS: FLUoxetine HCL 20 MG CAPSULE PO SCH (17:14)
[2020-08-18] MEDS: LISINOPRIL 10 MG TABLET PO SCH (17:14)
[2020-08-18] MEDS: amLODIPine BESYLATE 10 MG TABLET (FP) PO SCH (17:14)
[2020-08-18] MEDS: FERROUS SO4 325 MG TABLET (FP) PO SCH (17:14)
[2020-08-18] MEDS: FOLIC ACID 1 MG TABLET (FP) PO SCH (17:14)
[2020-08-18] MEDS ORDERED: LIDOCAINE 5% TOPICAL PATCH TP ONE (17:55)
[2020-08-18] MEDS ORDERED: ACETAMINOPHEN 500 MG TABLET (FP) PO ONE (17:55)
[2020-08-18] MEDS ORDERED: LIDOCAINE 5% TOPICAL PATCH ONE (18:09)
[2020-08-18] MEDS ORDERED: FUROSEMIDE 40 MG/4 ML INJECTABLE VIAL IVPUSH ONE (18:38)
[2020-08-18] MEDS ORDERED: FUROSEMIDE 40 MG/4 ML INJECTABLE VIAL ONE (19:59)
[2020-08-18] MEDS ORDERED: LIDOCAINE PATCH REMOVAL MC SCH (22:00)
[2020-08-18] MEDS ORDERED: GABAPENTIN 100 MG CAPSULE ONE (22:15)
[2020-08-18] MEDS ORDERED: PANTOPRAZOLE SODIUM 40 MG VIAL ONE (22:15)
[2020-08-18] MEDS ORDERED: levETIRAcetam 500 MG TABLET (FP) PO ONE (22:15)
[2020-08-18] MEDS ORDERED: busPIRone HCL 5 MG TABLET ONE (22:15)
--- NOTE | 2020-08-18 22:46 | PN ---
Teaching Attending Note Name of Resident: Mirtha Salgado ATTENDING PHYSICIAN STATEMENT I saw and evaluated the patient. I reviewed the resident's note and discussed the case with the resident. I agree with the resident's findings and plan as documented. SUBJECTIVE: Patient seen and examined at bedside, admitted for symptomatic anemia, needs HD, VSS. OBJECTIVE: GA tired appearing, calm HEENT nC/aT, no scleral icterus, neck supple, dry MM Chest crackles at bases CVS s1, S2+, RRR Abd Soft, NT< ND, BS+, no palpable ascites Ext minimal edema LE b/l, no tremor Vital Signs (72 hours) 08/18/20 08/18/20 08/18/20 12:21 15:15 15:30 Temperature 97.6 F 99.1 F 99.1 F Pulse Rate 78 Pulse Rate [ 88 78 Left] Respiratory 18 20 20 Rate Blood Pressure 179/84 H Blood Pressure 154/94 158/87 [Left Arm] O2 Sat by Pulse 100 99 100 Oximetry (%) 08/18/20 19:30 Temperature 99.4 F Pulse Rate Pulse Rate [ 91 H Left] Respiratory 20 Rate Blood Pressure Blood Pressure 114/66 [Left Arm] O2 Sat by Pulse 100 Oximetry (%) Laboratory Results - last 24 hr 08/18/20 08/18/20 08/18/20 12:30 12:30 12:30 WBC 3.6 L RBC 1.65 L Hgb 5.2 L* Hct 15.3 L D MCV 93.2 MCH 31.9 MCHC 34.2 RDW 17.3 H Plt Count 63 L D MPV 9.4 Absolute Neuts (auto) 2.2 Neutrophils % 62.7 Lymphocytes % 22.9 D Monocytes % 8.5 Eosinophils % 4.9 H Basophils % 1.0 Nucleated RBC % 0 PT with INR 15.00 H INR 1.27 H Sodium 131 L Potassium 3.8 Chloride 100 Carbon Dioxide 20 L Anion Gap 12 BUN 38.1 H Creatinine 5.9 H Est GFR (CKD-EPI)AfAm 12.01 Est GFR (CKD-EPI)NonAf 10.36 Random Glucose 88 Calcium 7.1 L Total Bilirubin 1.2 H AST 81 H ALT 28 Alkaline Phosphatase 209 H Total Protein 5.2 L Albumin 2.3 L Alcohol, Quantitative < 3 Blood Type Antibody Screen Crossmatch 08/18/20 12:30 WBC RBC Hgb Hct MCV MCH MCHC RDW Plt Count MPV Absolute Neuts (auto) Neutrophils % Lymphocytes % Monocytes % Eosinophils % Basophils % Nucleated RBC % PT with INR INR Sodium Potassium Chloride Carbon Dioxide Anion Gap BUN Creatinine Est GFR (CKD-EPI)AfAm Est GFR (CKD-EPI)NonAf Random Glucose Calcium Total Bilirubin AST ALT Alkaline Phosphatase Total Protein Albumin Alcohol, Quantitative Blood Type B POSITIVE Antibody Screen Negative Crossmatch See Detail Home Medications Medication Instructions Recorded Gabapentin 300 mg PO HS 12/03/19 Buspirone HCl [Buspar -] 5 mg PO BID 01/12/20 Rifaximin [Xifaxan -] 550 mg PO BID #60 tablet 03/09/20 Lisinopril [Prinivil] 10 mg PO DAILY 05/03/20 Fluoxetine HCl [Prozac] 40 mg PO DAILY 05/22/20 levETIRAcetam [Keppra -] 500 mg PO BID tablet 05/23/20 Folic Acid 1 mg PO DAILY 06/06/20 Thiamine HCl [B-1] 100 mg PO DAILY 06/06/20 Naltrexone HCl 50 mg PO DAILY 07/24/20 Amlodipine Besylate [Norvasc -] 10 mg PO DAILY 08/18/20 Ferrous Sulfate 325 mg PO DAILY 08/18/20 Pantoprazole Sodium [Protonix] 40 mg PO Q12H 08/18/20 Sertraline HCl 50 mg PO Q12H 08/18/20 Current Medications Generic Name Dose Route Start Last Admin Trade Name Freq PRN Reason Stop Dose Admin Amlodipine Besylate 10 mg 08/18/20 16:15 08/18/20 17:14 Norvasc - PO 10 mg DAILY DEV Administration Buspirone HCl 5 mg 08/18/20 22:00 Buspar - PO BID DEV Epoetin Kendall 20,000 unit 08/18/20 14:48 Procrit - SQ 08/18/20 14:49 ONCE ONE Ferrous Sulfate 325 mg 08/18/20 16:15 08/18/20 17:14 Feosol - PO 325 mg DAILY DEV Administration Fluoxetine HCl 40 mg 08/18/20 16:15 08/18/20 17:14 Prozac - PO 40 mg DAILY DEV Administration Folic Acid 1 mg 08/18/20 16:15 08/18/20 17:14 Folic Acid - PO 1 mg DAILY DEV Administration Gabapentin 300 mg 08/18/20 22:00 Neurontin - PO HS DEV Sodium Chloride 250 mls @ 3,000 mls/hr 08/18/20 14:46 Normal Saline - IV 08/19/20 14:46 PRN PRN Hypotension during Dialysis Levetiracetam 500 mg 08/18/20 22:00 Keppra - PO BID DEV Lisinopril 10 mg 08/18/20 16:15 08/18/20 17:14 Prinivil PO 10 mg DAILY DEV Administration Miscellaneous 1 each 08/18/20 22:00 Lidoderm Patch Removal MC DAILY@2200 DEV Pantoprazole Sodium 40 mg 08/18/20 22:00 Protonix Iv IVPUSH BID DEV Rifaximin 550 mg 08/18/20 22:00 Xifaxan - PO BID DEV Thiamine HCl 100 mg 08/18/20 16:15 08/18/20 17:14 Vitamin B1 - PO 100 mg DAILY DEV Administration ASSESSMENT AND PLAN: 50 M ESRD on HD Symptomatic anemia 2/2 ?variceal bleed Liver cirrhosis Suspected GIB Depression Anxiety Seizure disorder ACD Plan: Transfuse w/ goal of 7.0, avoid over transfusion as this will worsen variceal bleed IV Lasix until HD in AM (patient still makes urine) Correct electrolytes Low suspicion for SBP in view of no appreciable ascites Restart anti-depressants Renal following DVT ppx: SCD
[2020-08-18] MEDS: busPIRone HCL 5 MG TABLET PO SCH (23:05)
[2020-08-18] MEDS: GABAPENTIN 300 MG CAPSULE PO SCH (23:05)
[2020-08-18] MEDS: levETIRAcetam 500 MG TABLET (FP) PO SCH (23:05)
[2020-08-18] MEDS: PANTOPRAZOLE SODIUM 40 MG VIAL IVPUSH SCH (23:05)
[2020-08-18] MEDS: RIFAXIMIN 550 MG TABLET (UD) PO SCH (23:05)
[2020-08-19 00:41] VITALS: BMI 29.2
[2020-08-19] MEDS ORDERED: diphenhydrAMINE HCL 25 MG CAPSULE (FP) PO ONE ×2 (01:59→19:56)
[2020-08-19] MEDS ORDERED: FUROSEMIDE 40 MG/4 ML INJECTABLE VIAL ONE (04:18)
[2020-08-19] MEDS ORDERED: LIDOCAINE PATCH REMOVAL MC ONE (06:00)
[2020-08-19] MEDS ORDERED: SODIUM CHLORIDE 250 ML IV PRN (06:41)
[2020-08-19] MEDS ORDERED: EPOETIN ALFA 20,000 UNIT/1 ML VIAL SQ ONE (07:30)
[2020-08-19 07:51] LABS: BASO % 0.6 % (0-2.0); EOS % 7.8 % (0-4.5); HEMATOCRIT 19.3 % (35.4-49); LYMPH % 23.5 % (8-40); MCH 32.1 pg (25.7-33.7); MCHC 34.7 g/dl (32.0-35.9); MEAN CELL VOLUME 92.4 fl (80-96); MEAN PLT VOLUME 9.7 fl (7.5-11.1); MONO % 10.3 % (3.8-10.2); NEUT % 57.8 % (42.8-82.8); PLATELET COUNT 40 K/MM3 (134-434); RBC 2.08 M/mm3 (4.00-5.60); RDW 16.8 % (11.9-15.9); WHITE BLOOD COUNT 2.4 K/mm3 (4.0-10.0)
[2020-08-19 08:22] LABS: ALBUMIN 2.1 g/dl (3.4-5.0); BILIRUBIN,TOTAL 1.1 mg/dL (0.2-1); BLOOD UREA NITROGEN 37.2 mg/dL (7-18); CREATININE 5.9 mg/dL (0.55-1.3); MAGNESIUM 1.4 mg/dL (1.8-2.4); PHOSPHOROUS 4.5 mg/dL (2.5-4.9); POTASSIUM 3.3 mmol/L (3.5-5.1); TOT PROT 4.6 g/dl (6.4-8.2)
--- NOTE | 2020-08-19 08:45 | PN ---
Progress Note, Physician Chief Complaint: AWAKE ALERT EVENTS AND NOTES REVIEWED DENIES CHEST OR ABD PAIN NO SOB - Current Medication List Current Medications: Active Medications Amlodipine Besylate (Norvasc -) 10 mg PO DAILY [facility] Last Admin: 08/18/20 17:14 Dose: 10 mg Documented by: Buspirone HCl (Buspar -) 5 mg PO BID [facility] Last Admin: 08/18/20 23:05 Dose: 5 mg Documented by: Ferrous Sulfate (Feosol -) 325 mg PO DAILY [facility] Last Admin: 08/18/20 17:14 Dose: 325 mg Documented by: Fluoxetine HCl (Prozac -) 40 mg PO DAILY [facility] Last Admin: 08/18/20 17:14 Dose: 40 mg Documented by: Folic Acid (Folic Acid -) 1 mg PO DAILY [facility] Last Admin: 08/18/20 17:14 Dose: 1 mg Documented by: Gabapentin (Neurontin -) 300 mg PO HS [facility] Last Admin: 08/18/20 23:05 Dose: 300 mg Documented by: Levetiracetam (Keppra -) 500 mg PO BID [facility] Last Admin: 08/18/20 23:05 Dose: 500 mg Documented by: Lisinopril (Prinivil) 10 mg PO DAILY [facility] Last Admin: 08/18/20 17:14 Dose: 10 mg Documented by: Pantoprazole Sodium (Protonix Iv) 40 mg IVPUSH BID [facility] Last Admin: 08/18/20 23:05 Dose: 40 mg Documented by: Rifaximin (Xifaxan -) 550 mg PO BID [facility] Last Admin: 08/18/20 23:05 Dose: 550 mg Documented by: Thiamine HCl (Vitamin B1 -) 100 mg PO DAILY [facility] Last Admin: 08/18/20 17:14 Dose: 100 mg Documented by: - Objective Vital Signs: Vital Signs Temperature 98.8 F 08/19/20 06:10 Pulse Rate 75 08/19/20 08:15 Respiratory Rate 18 08/19/20 08:15 Blood Pressure 114/79 08/19/20 08:15 O2 Sat by Pulse Oximetry (%) 100 08/19/20 04:30 Constitutional: Yes: Mild Distress Cardiovascular: Yes: Regular Rate and Rhythm Respiratory: Yes: CTA Bilaterally Gastrointestinal: Yes: Soft, Distention Genitourinary: Yes: Other Neurological: Yes: Pre-Existing Deficit Labs: CBC, BMP 08/19/20 07:15 08/19/20 07:15 INR, PTT INR 1.27 (0.83-1.09) H 08/18/20 12:30 Problem List - Problems (1) Abdominal pain Code(s): R10.9 - UNSPECIFIED ABDOMINAL PAIN Qualifiers: Abdominal location: generalized Qualified Code(s): R10.84 - Generalized abdominal pain (2) Acute on chronic kidney failure Code(s): N17.9 - ACUTE KIDNEY FAILURE, UNSPECIFIED; N18.9 - CHRONIC KIDNEY DISEASE, UNSPECIFIED (3) Acute respiratory failure Code(s): J96.00 - ACUTE RESPIRATORY FAILURE, UNSP W HYPOXIA OR HYPERCAPNIA Qualifiers: Respiratory failure complication: unspecified whether with hypoxia or hypercapnia Qualified Code(s): J96.00 - Acute respiratory failure, unspecified whether with hypoxia or hypercapnia (4) Bloody stools Code(s): K92.1 - MELENA (5) GI bleed Code(s): K92.2 - GASTROINTESTINAL HEMORRHAGE, UNSPECIFIED (6) Alcohol dependence Code(s): F10.20 - ALCOHOL DEPENDENCE, UNCOMPLICATED (7) Anemia Code(s): D64.9 - ANEMIA, UNSPECIFIED Qualifiers: Anemia type: other cause Other causes of anemia: chronic disease, other Qualified Code(s): D63.8 - Anemia in other chronic diseases classified elsewhere (8) ESRD (end stage renal disease) on dialysis Code(s): N18.6 - END STAGE RENAL DISEASE; Z99.2 - DEPENDENCE ON RENAL DIALYSIS (9) History of cirrhosis of liver Code(s): Z87.19 - PERSONAL HISTORY OF OTHER DISEASES OF THE DIGESTIVE SYSTEM (10) History of depression Code(s): Z86.59 - PERSONAL HISTORY OF OTHER MENTAL AND BEHAVIORAL DISORDERS Assessment/Plan HD PER RENAL ANEMIA IMPROVING TRANSFUSE PRBC NEEDED MAY NEED PROCRIT DURING HD GI/HEMATOLGY EVAL GI PROPHYLAXIS
[2020-08-19 08:47] LABS: CALCIUM 6.9 mg/dL (8.5-10.1)
[2020-08-19 08:58] LABS: HEMOGLOBIN 6.7 GM/dL (11.7-16.9)
[2020-08-19] MEDS ORDERED: PT OWN MED DRAWER 7, Y5N ONE ×2 (11:46→21:00)
[2020-08-19] MEDS: RIFAXIMIN 550 MG TABLET (UD) PO SCH ×2 (11:49→21:49)
[2020-08-19] MEDS: amLODIPine BESYLATE 10 MG TABLET (FP) PO SCH (11:49)
[2020-08-19] MEDS: FERROUS SO4 325 MG TABLET (FP) PO SCH (11:49)
[2020-08-19] MEDS: FOLIC ACID 1 MG TABLET (FP) PO SCH (11:49)
[2020-08-19] MEDS: levETIRAcetam 500 MG TABLET (FP) PO SCH ×2 (11:49→21:47)
[2020-08-19] MEDS: LISINOPRIL 10 MG TABLET PO SCH (11:49)
[2020-08-19] MEDS: FLUoxetine HCL 20 MG CAPSULE PO SCH (11:50)
[2020-08-19] MEDS: PANTOPRAZOLE SODIUM 40 MG VIAL IVPUSH SCH ×2 (11:50→21:49)
[2020-08-19] MEDS: THIAMINE HCL 100 MG TABLET (FP) PO SCH (11:50)
[2020-08-19] MEDS: busPIRone HCL 5 MG TABLET PO SCH ×2 (11:50→21:47)
--- NOTE | 2020-08-19 12:52 | PN ---
Progress Note (short form) - Note Progress Note: GI CONSULT DICTATED PPI RIFAXIMIN TRANSFUSE TO HG OF 9 SERIAL H/H Q12 AVOID NSAID / HEPATOTOXIC MEDICATIONS HOLD OFF ON ANY INVASIVE PROCEDURES HE SHOULD F/U AT [facility] WITH HIS GI DOCTOR
--- NOTE | 2020-08-19 13:28 | PN ---
Progress Note, Physician History of Present Illness: Pt seen and examined at bedside. He is tolerating HD. - Current Medication List Current Medications: Active Medications Amlodipine Besylate (Norvasc -) 10 mg PO DAILY [facility] Last Admin: 08/19/20 11:49 Dose: 10 mg Documented by: Buspirone HCl (Buspar -) 5 mg PO BID [facility] Last Admin: 08/19/20 11:50 Dose: 5 mg Documented by: Calcium Carbonate/Cholecalciferol (Os-Dennis 500+D -) 2 tab PO DAILY [facility] Ferrous Sulfate (Feosol -) 325 mg PO DAILY [facility] Last Admin: 08/19/20 11:49 Dose: 325 mg Documented by: Fluoxetine HCl (Prozac -) 40 mg PO DAILY [facility] Last Admin: 08/19/20 11:50 Dose: 40 mg Documented by: Folic Acid (Folic Acid -) 1 mg PO DAILY [facility] Last Admin: 08/19/20 11:49 Dose: 1 mg Documented by: Gabapentin (Neurontin -) 300 mg PO HS [facility] Last Admin: 08/18/20 23:05 Dose: 300 mg Documented by: Levetiracetam (Keppra -) 500 mg PO BID [facility] Last Admin: 08/19/20 11:49 Dose: 500 mg Documented by: Lisinopril (Prinivil) 10 mg PO DAILY [facility] Last Admin: 08/19/20 11:49 Dose: 10 mg Documented by: Pantoprazole Sodium (Protonix Iv) 40 mg IVPUSH BID [facility] Last Admin: 08/19/20 11:50 Dose: 40 mg Documented by: Potassium Chloride (K-Dur -) 40 meq PO ONCE ONE Stop: 08/19/20 13:26 Rifaximin (Xifaxan -) 550 mg PO BID [facility] Last Admin: 08/19/20 11:49 Dose: 550 mg Documented by: Thiamine HCl (Vitamin B1 -) 100 mg PO DAILY [facility] Last Admin: 08/19/20 11:50 Dose: 100 mg Documented by: - Objective Vital Signs: Vital Signs Temperature 98.4 F 08/19/20 10:20 Pulse Rate 79 08/19/20 10:20 Respiratory Rate 18 08/19/20 10:20 Blood Pressure 138/86 08/19/20 10:20 O2 Sat by Pulse Oximetry (%) 99 08/19/20 09:00 Constitutional: Yes: Calm Eyes: Yes: Conjunctiva Clear HENT: Yes: Atraumatic Neck: Yes: Supple Cardiovascular: Yes: S1, S2 Respiratory: Yes: CTA Bilaterally Gastrointestinal: Yes: Normal Bowel Sounds, Soft Genitourinary: Yes: WNL Musculoskeletal: Yes: WNL Edema: No Neurological: Yes: Oriented Psychiatric: Yes: Oriented Labs: CBC, BMP 08/19/20 07:15 08/19/20 07:15 INR, PTT INR 1.27 (0.83-1.09) H 08/18/20 12:30 Assessment/Plan Current Medications Generic Name Dose Route Start Last Admin Trade Name Koleq PRN Reason Stop Dose Admin Amlodipine Besylate 10 mg 08/18/20 16:15 08/19/20 11:49 Norvasc - PO 10 mg DAILY DEV Administration Buspirone HCl 5 mg 08/18/20 22:00 08/19/20 11:50 Buspar - PO 5 mg BID DEV Administration Calcium Carbonate/Cholecalciferol 2 tab 08/19/20 13:30 Os-Dennis 500+D - PO DAILY [facility] Ferrous Sulfate 325 mg 08/18/20 16:15 08/19/20 11:49 Feosol - PO 325 mg DAILY DEV Administration Fluoxetine HCl 40 mg 08/18/20 16:15 08/19/20 11:50 Prozac - PO 40 mg DAILY DEV Administration Folic Acid 1 mg 08/18/20 16:15 08/19/20 11:49 Folic Acid - PO 1 mg DAILY DEV Administration Gabapentin 300 mg 08/18/20 22:00 08/18/20 23:05 Neurontin - PO 300 mg HS DEV Administration Levetiracetam 500 mg 08/18/20 22:00 08/19/20 11:49 Keppra - PO 500 mg BID DEV Administration Lisinopril 10 mg 08/18/20 16:15 08/19/20 11:49 Prinivil PO 10 mg DAILY DEV Administration Pantoprazole Sodium 40 mg 08/18/20 22:00 08/19/20 11:50 Protonix Iv IVPUSH 40 mg BID DEV Administration Potassium Chloride 40 meq 08/19/20 13:25 K-Dur - PO 08/19/20 13:26 ONCE ONE Rifaximin 550 mg 08/18/20 22:00 08/19/20 11:49 Xifaxan - PO 550 mg BID DEV Administration Thiamine HCl 100 mg 08/18/20 16:15 08/19/20 11:50 Vitamin B1 - PO 100 mg DAILY DEV Administration Impression 1. ESRD 2. htn 3. hx etoh abuse 4. liver cirrhosis with tips 5. anemia 6. hx GI bleed 7. eosinophilia 8. PNA 9. missed HD Plan - HD today - hg remains low - will give more prbc with HD - epogen as well - replace lytes - follow iron studies - GI input appreciated
[2020-08-19] MEDS ORDERED: POTASSIUM CHLORIDE TABS 20 MEQ TABLET.ER (FP) PO ONE (14:15)
[2020-08-19] MEDS: CALCIUM 500MG/VIT-D 200 UNITS COMBO TABLET (FP) PO SCH (14:21)
[2020-08-19] MEDS ORDERED: CALCIUM GLUCONATE 10% - 1,000 MG/10 ML VIAL IVPB ONE (16:05)
--- NOTE | 2020-08-19 16:09 | CONSULT ---
Consultation: REQUESTING PROVIDER: CONSULT REQUEST: We have been asked to medically evaluate this patient for (specify). HISTORY OF PRESENT ILLNESS: 50 y/o M PMHx Anemia (Requiring blood transfusions in the past), ESRD on HD ([facility]), cirrhosis (s/p TIPS), Esophogeal varicies (s/p banding), GI bleed (s/p egd/colonoscopy and balloon enteroscopy 06/15), Hypothyroidism, Depression who presents from outpatient office with anemia. Patient reports fatigue and SOB accompanied by difficulty with ambulation. Last HD was Saturday 08/11; labwork revealed Hgb 5 but patient refused to visit [facility]. Denies any fevers, chills, chest pain, SOB, nausea, vomiting, diarrhea constipation. PMHx: as above PSHx: RUE [place] Social: EtOH use disorder, 1/2 ppd smoker, Denies drug use FHx: Noncontibutory REVIEW OF SYSTEMS: As per HPI PHYSICAL EXAMINATION Last Vital Signs Temp Pulse Resp BP Pulse Ox 98.6 F 86 20 126/62 95 08/19/20 14:00 08/19/20 14:00 08/19/20 14:00 08/19/20 14:00 08/19/20 14:00 GENERAL: A&Ox3,NAD HEAD: NCAT EYES: PERRL, EOMI EARS, NOSE, THROAT: Moist mucous membranes. NECK: Supple LUNGS: Breath sounds equal, clear to auscultation bilaterally. No wheezes HEART: Regular rate and rhythm, normal S1 and S2 without murmur ABDOMEN: Soft, nontender, not distended, + bowel sounds, no guarding, no rebound MUSCULOSKELETAL: No CVA tenderness. EXTREMITIES: Trace edema. NEUROLOGICAL: Cranial nerves II-XII intact. Normal speech. SKIN: Warm, dry Laboratory Last Values WBC 2.4 K/mm3 (4.0-10.0) L 08/19/20 07:15 RBC 2.08 M/mm3 (4.00-5.60) L 08/19/20 07:15 Hgb 6.7 GM/dL (11.7-16.9) L* 08/19/20 07:15 Hct 19.3 % (35.4-49) L D 08/19/20 07:15 MCV 92.4 fl (80-96) 08/19/20 07:15 MCH 32.1 pg (25.7-33.7) 08/19/20 07:15 MCHC 34.7 g/dl (32.0-35.9) 08/19/20 07:15 RDW 16.8 % (11.9-15.9) H 08/19/20 07:15 Plt Count 40 K/MM3 (134-434) L D 08/19/20 07:15 MPV 9.7 fl (7.5-11.1) 08/19/20 07:15 Absolute Neuts (auto) 1.4 K/mm3 (1.5-8.0) L 08/19/20 07:15 Neutrophils % 57.8 % (42.8-82.8) 08/19/20 07:15 Lymphocytes % 23.5 % (8-40) 08/19/20 07:15 Monocytes % 10.3 % (3.8-10.2) H 08/19/20 07:15 Eosinophils % 7.8 % (0-4.5) H 08/19/20 07:15 Basophils % 0.6 % (0-2.0) 08/19/20 07:15 Nucleated RBC % 0 % (0-0) 08/19/20 07:15 PT with INR 15.00 SEC (9.7-13.0) H 08/18/20 12:30 INR 1.27 (0.83-1.09) H 08/18/20 12:30 Sodium 134 mmol/L (136-145) L 08/19/20 07:15 Potassium 3.3 mmol/L (3.5-5.1) L 08/19/20 07:15 Chloride 105 mmol/L (98-107) 08/19/20 07:15 Carbon Dioxide 18 mmol/L (21-32) L 08/19/20 07:15 Anion Gap 11 MMOL/L (8-16) 08/19/20 07:15 BUN 37.2 mg/dL (7-18) H 08/19/20 07:15 Creatinine 5.9 mg/dL (0.55-1.3) H 08/19/20 07:15 Est GFR (CKD-EPI)AfAm 12.01 08/19/20 07:15 Est GFR (CKD-EPI)NonAf 10.36 08/19/20 07:15 Random Glucose 92 mg/dL (74-106) 08/19/20 07:15 Calcium 6.9 mg/dL (8.5-10.1) L* 08/19/20 07:15 Phosphorus 4.5 mg/dL (2.5-4.9) 08/19/20 07:15 Magnesium 1.4 mg/dL (1.8-2.4) L 08/19/20 07:15 Total Bilirubin 1.1 mg/dL (0.2-1) H 08/19/20 07:15 AST 46 U/L (15-37) H 08/19/20 07:15 ALT 24 U/L (13-61) 08/19/20 07:15 Alkaline Phosphatase 198 U/L (45-117) H 08/19/20 07:15 Total Protein 4.6 g/dl (6.4-8.2) L 08/19/20 07:15 Albumin 2.1 g/dl (3.4-5.0) L 08/19/20 07:15 Alcohol, Quantitative < 3 mg/dL (0.0-5.0) 08/18/20 12:30 COVID-19 ([facility]) Not detected (Not Detected) 08/18/20 13:55 Blood Type B POSITIVE 08/18/20 12:30 Antibody Screen Negative 08/18/20 12:30 Crossmatch See Detail 08/18/20 12:30 Active Medications Amlodipine Besylate (Norvasc -) 10 mg PO DAILY [facility] Last Admin: 08/19/20 11:49 Dose: 10 mg Documented by: Buspirone HCl (Buspar -) 5 mg PO BID [facility] Last Admin: 08/19/20 11:50 Dose: 5 mg Documented by: Calcium Carbonate/Cholecalciferol (Os-Dennis 500+D -) 2 tab PO DAILY [facility] Last Admin: 08/19/20 14:21 Dose: 2 tab Documented by: Ferrous Sulfate (Feosol -) 325 mg PO DAILY [facility] Last Admin: 08/19/20 11:49 Dose: 325 mg Documented by: Fluoxetine HCl (Prozac -) 40 mg PO DAILY [facility] Last Admin: 08/19/20 11:50 Dose: 40 mg Documented by: Folic Acid (Folic Acid -) 1 mg PO DAILY [facility] Last Admin: 08/19/20 11:49 Dose: 1 mg Documented by: Gabapentin (Neurontin -) 300 mg PO HS [facility] Last Admin: 08/18/20 23:05 Dose: 300 mg Documented by: Levetiracetam (Keppra -) 500 mg PO BID [facility] Last Admin: 08/19/20 11:49 Dose: 500 mg Documented by: Lisinopril (Prinivil) 10 mg PO DAILY [facility] Last Admin: 08/19/20 11:49 Dose: 10 mg Documented by: Pantoprazole Sodium (Protonix Iv) 40 mg IVPUSH BID [facility] Last Admin: 08/19/20 11:50 Dose: 40 mg Documented by: Rifaximin (Xifaxan -) 550 mg PO BID [facility] Last Admin: 08/19/20 11:49 Dose: 550 mg Documented by: Thiamine HCl (Vitamin B1 -) 100 mg PO DAILY [facility] Last Admin: 08/19/20 11:50 Dose: 100 mg Documented by: ASSESSMENT/PLAN: 50 y/o M PMHx Anemia (Requiring blood transfusions in the past), ESRD on HD ([facility]), cirrhosis (s/p TIPS), Esophogeal varicies (s/p banding), GI bleed (s/p egd/colonoscopy and balloon enteroscopy 06/15), Hypothyroidism, Depression who presents from outpatient office with anemia. #Pancytopenia -Likely anemia of chronic inflammation in the setting of Renal and hepatic diseases -S/P 4u pRBC and lasix x 1; Will add 1gm Calcium -CBC Q12H; Normal transfusion threshold for Hgb and Plt -Mechanical DVT ppx; Hold Chemical AC -GI Consult appreciated -PPI -Avoid NSAIDs, Hepatotoxic meds, -Continue home dose Fesol -check FOBT, aPTT, Iron studies #ESRD -HD as per Renal -Replete lykimberly Dispo: We will continue to follow the patient. Thank you for this consultative opportunity. Visit type - Emergency Visit Emergency Visit: Yes ED Registration Date: 08/18/20 Care time: The patient presented to the Emergency Department on the above date and was hospitalized for further evaluation of their emergent condition. - New Patient This patient is new to me today: Yes Date on this admission: 08/19/20 - Critical Care Critical Care patient: No ATTENDING PHYSICIAN STATEMENT I saw and evaluated the patient. I reviewed the resident's note and discussed the case with the resident. I agree with the resident's findings and plan as documented. SUBJECTIVE: OBJECTIVE: ASSESSMENT AND PLAN:
--- NOTE | 2020-08-19 18:16 | PN ---
Teaching Attending Note Name of Resident: Hamida Jon ATTENDING PHYSICIAN STATEMENT I saw and evaluated the patient. I reviewed the resident's note and discussed the case with the resident. I agree with the resident's findings and plan as documented. Mr Martinez is readmitted w severe anemia in context of cirrhosis, h/o bleeding varices, esrd, chronic pancytopenia, sz d/o on AED Reportedly had recent extensive gi w/u and no obvious bleed source identified, tho blood found w vce? likely continuing to ooze. He denies obvious bleeding. Has symptomatic improvement w transfusion would obtain pt,ptt,fibrinogen cont close monitoring cbc low threshold to transfuse plts, meron w thrombocytopathy related to esrd may also require cryo if bleeding w anticip low fibrinogen suggest f/u w hematology as outpt to assess for other etiol pf pancytopenia, tho likely all related to hepatopathy/bleeding/esrd
[2020-08-19 19:24] LABS: BASO % 0.7 % (0-2.0); EOS % 5.2 % (0-4.5); HEMOGLOBIN 8.4 GM/dL (11.7-16.9); LYMPH % 18.9 % (8-40); MCH 31.6 pg (25.7-33.7); MCHC 35.2 g/dl (32.0-35.9); MEAN CELL VOLUME 89.8 fl (80-96); MEAN PLT VOLUME 9.6 fl (7.5-11.1); MONO % 11.8 % (3.8-10.2); NEUT % 63.4 % (42.8-82.8); PLATELET COUNT 41 K/MM3 (134-434); RBC 2.67 M/mm3 (4.00-5.60); RDW 16.2 % (11.9-15.9); WHITE BLOOD COUNT 2.5 K/mm3 (4.0-10.0)
[2020-08-19] MEDS ORDERED: ACETAMINOPHEN 325 MG TABLET (FP) PO ONE (21:30)
[2020-08-19] MEDS: GABAPENTIN 300 MG CAPSULE PO SCH (21:49)
[2020-08-20 06:05] VITALS: PULSE 79
--- NOTE | 2020-08-20 07:28 | DS ---
Physical Examination Vital Signs: Vital Signs Temperature 98.3 F 08/20/20 06:00 Pulse Rate 79 08/20/20 06:00 Respiratory Rate 20 08/20/20 06:00 Blood Pressure 146/76 08/20/20 06:00 O2 Sat by Pulse Oximetry (%) 99 08/20/20 06:00 Constitutional: Yes: No Distress Eyes: Yes: WNL HENT: Yes: WNL Neck: Yes: WNL Cardiovascular: Yes: WNL Respiratory: Yes: WNL Gastrointestinal: Yes: Soft, Distention Musculoskeletal: Yes: WNL Edema: No Neurological: Yes: WNL Labs: CBC, BMP 08/19/20 18:50 08/19/20 07:15 Discharge Summary Problems reviewed: Yes Reason For Visit: ANEMIA gi bleed, chronic cirrhosis liver esophageal varices renal failure end stage dialysis Procedures: Principal: hemodialysis/transfusion prbc Hospital Course: admitted for anemia, transfused prbc, discussed case with GI, patient has a GI specialist at [facility] ([facility] and will follow with their sepcialist team. patient had HD yesterday will have another session prior to discharge Plan of Treatment: see your GI specialist in 2-3 days for follow up, also lab test with your primary doctor Osmany Crook Condition: Fair - Instructions Diet, Activity, Other Instructions: see Dr Crook for labs and follow up GI at [facility] HD per nephrology Referrals: Rene Ward MD [Primary Care Provider] - Disposition: HOME - Home Medications Comprehensive Discharge Medication List: Ambulatory Orders Gabapentin 300 mg PO HS 12/03/19 Buspirone HCl [Buspar -] 5 mg PO BID 01/12/20 Rifaximin [Xifaxan -] 550 mg PO BID #60 tablet 03/09/20 Lisinopril [Prinivil] 10 mg PO DAILY 05/03/20 Fluoxetine HCl [Prozac] 40 mg PO DAILY 05/22/20 levETIRAcetam [Keppra -] 500 mg PO BID tablet 05/23/20 Folic Acid 1 mg PO DAILY 06/06/20 Thiamine HCl [B-1] 100 mg PO DAILY 06/06/20 Naltrexone HCl 50 mg PO DAILY 07/24/20 Amlodipine Besylate [Norvasc -] 10 mg PO DAILY 08/18/20 Ferrous Sulfate 325 mg PO DAILY 08/18/20 Pantoprazole Sodium [Protonix] 40 mg PO Q12H 08/18/20 Sertraline HCl 50 mg PO Q12H 08/18/20
[2020-08-20 08:17] LABS: BASO % 0.4 % (0-2.0); EOS % 6.2 % (0-4.5); HEMATOCRIT 26.5 % (35.4-49); HEMOGLOBIN 9.1 GM/dL (11.7-16.9); MCHC 34.4 g/dl (32.0-35.9); MEAN CELL VOLUME 90.1 fl (80-96); MEAN PLT VOLUME 9.5 fl (7.5-11.1); MONO % 12.2 % (3.8-10.2); NEUT % 64.2 % (42.8-82.8); PLATELET COUNT 55 K/MM3 (134-434); RBC 2.94 M/mm3 (4.00-5.60); RDW 16.5 % (11.9-15.9); WHITE BLOOD COUNT 3.7 K/mm3 (4.0-10.0)
[2020-08-20 08:29] LABS: ALBUMIN 2.3 g/dl (3.4-5.0); BILIRUBIN,TOTAL 1.5 mg/dL (0.2-1); BLOOD UREA NITROGEN 21.9 mg/dL (7-18); CALCIUM 7.6 mg/dL (8.5-10.1); CREATININE 4.2 mg/dL (0.55-1.3); POTASSIUM 3.9 mmol/L (3.5-5.1); TOT PROT 5.2 g/dl (6.4-8.2)
[2020-08-20] MEDS ORDERED: PT OWN MED DRAWER 7, Y5N ONE (09:11)
[2020-08-20] MEDS: amLODIPine BESYLATE 10 MG TABLET (FP) PO SCH (09:15)
[2020-08-20] MEDS: LISINOPRIL 10 MG TABLET PO SCH (09:15)
[2020-08-20] MEDS: FERROUS SO4 325 MG TABLET (FP) PO SCH (09:15)
[2020-08-20] MEDS: THIAMINE HCL 100 MG TABLET (FP) PO SCH (09:15)
[2020-08-20] MEDS: levETIRAcetam 500 MG TABLET (FP) PO SCH (09:15)
[2020-08-20] MEDS: CALCIUM 500MG/VIT-D 200 UNITS COMBO TABLET (FP) PO SCH (09:15)
[2020-08-20] MEDS: RIFAXIMIN 550 MG TABLET (UD) PO SCH (09:15)
[2020-08-20] MEDS: FOLIC ACID 1 MG TABLET (FP) PO SCH (09:15)
[2020-08-20] MEDS: FLUoxetine HCL 20 MG CAPSULE PO SCH (09:16)
[2020-08-20] MEDS: busPIRone HCL 5 MG TABLET PO SCH (09:16)
[2020-08-20] MEDS: PANTOPRAZOLE SODIUM 40 MG VIAL IVPUSH SCH (09:16)
[2020-08-20 13:56] VITALS: BP 138/74; TEMP 98.4
--- NOTE | 2020-08-20 15:35 | PN ---
Progress Note, Physician History of Present Illness: Pt seen and examined at bedside. He is awake and alert. he denies shortness of breath. - Current Medication List Current Medications: Active Medications Amlodipine Besylate (Norvasc -) 10 mg PO DAILY [facility] Last Admin: 08/20/20 09:15 Dose: 10 mg Documented by: Buspirone HCl (Buspar -) 5 mg PO BID [facility] Last Admin: 08/20/20 09:16 Dose: 5 mg Documented by: Calcium Carbonate/Cholecalciferol (Os-Dennis 500+D -) 2 tab PO DAILY [facility] Last Admin: 08/20/20 09:15 Dose: 2 tab Documented by: Ferrous Sulfate (Feosol -) 325 mg PO DAILY [facility] Last Admin: 08/20/20 09:15 Dose: 325 mg Documented by: Fluoxetine HCl (Prozac -) 40 mg PO DAILY [facility] Last Admin: 08/20/20 09:16 Dose: 40 mg Documented by: Folic Acid (Folic Acid -) 1 mg PO DAILY [facility] Last Admin: 08/20/20 09:15 Dose: 1 mg Documented by: Gabapentin (Neurontin -) 300 mg PO HS [facility] Last Admin: 08/19/20 21:49 Dose: 300 mg Documented by: Levetiracetam (Keppra -) 500 mg PO BID [facility] Last Admin: 08/20/20 09:15 Dose: 500 mg Documented by: Lisinopril (Prinivil) 10 mg PO DAILY [facility] Last Admin: 08/20/20 09:15 Dose: 10 mg Documented by: Pantoprazole Sodium (Protonix Iv) 40 mg IVPUSH BID [facility] Last Admin: 08/20/20 09:16 Dose: 40 mg Documented by: Rifaximin (Xifaxan -) 550 mg PO BID [facility] Last Admin: 08/20/20 09:15 Dose: 550 mg Documented by: Thiamine HCl (Vitamin B1 -) 100 mg PO DAILY [facility] Last Admin: 08/20/20 09:15 Dose: 100 mg Documented by: - Objective Vital Signs: Vital Signs Temperature 98.4 F 08/20/20 13:55 Pulse Rate 79 08/20/20 13:55 Respiratory Rate 20 08/20/20 13:55 Blood Pressure 138/74 08/20/20 13:55 O2 Sat by Pulse Oximetry (%) 100 08/20/20 13:55 Constitutional: Yes: Calm HENT: Yes: Atraumatic Neck: Yes: Supple Cardiovascular: Yes: S1, S2 Respiratory: Yes: CTA Bilaterally Gastrointestinal: Yes: Normal Bowel Sounds, Soft Genitourinary: Yes: WNL Musculoskeletal: Yes: WNL Edema: No Neurological: Yes: Oriented Psychiatric: Yes: Oriented Labs: CBC, BMP 08/20/20 07:25 08/20/20 07:25 INR, PTT INR 1.27 (0.83-1.09) H 08/18/20 12:30 Assessment/Plan Impression 1. ESRD 2. htn 3. hx etoh abuse 4. liver cirrhosis with tips 5. anemia 6. hx GI bleed 7. eosinophilia 8. PNA 9. missed HD Plan - pt has HD scheduled as outpt - he will go to HD on Monday - Hg is improved - discussed compliance - GI input appreciated
== END 2020-08-20 15:33 | disposition home or self-care (01) | DRG 682 ==
LOC: JER 12:05 → JERBED 13:37 → J8W 23:50
PROVIDERS: ATTEND Family Medicine
PROC: 30233N1 Transfusion of Nonautologous Red Blood Cells into Peripheral Vein, Percutaneous Approach (ICD-10-PCS; 2020-08-18)
PROC: 5A1D70Z Performance of Urinary Filtration, Intermittent, Less than 6 Hours Per Day (ICD-10-PCS; principal; 2020-08-19)
DX: I13.11 Hypertensive heart and chronic kidney disease without heart failure, with stage 5 chronic kidney disease, or end stage renal disease (principal); N18.6 End stage renal disease; D61.818 Other pancytopenia; D63.1 Anemia in chronic kidney disease; E78.5 Hyperlipidemia, unspecified; E11.22 Type 2 diabetes mellitus with diabetic chronic kidney disease; K70.30 Alcoholic cirrhosis of liver without ascites; F10.10 Alcohol abuse, uncomplicated; E03.9 Hypothyroidism, unspecified; D69.6 Thrombocytopenia, unspecified; F41.8 Other specified anxiety disorders; D72.1 Eosinophilia; F17.210 Nicotine dependence, cigarettes, uncomplicated; Z99.2 Dependence on renal dialysis
CPT/HCPCS: 36415; 36430; 80053; 80307; 82728; 83540; 83550; 83735; 84100; 85025; 85610; 85730; 86803; 86850; 86900; 86901; 86922; 87340; 99285-25; J0885; P9058; U0003

== ENCOUNTER 2020-10-07 21:09 | Emergency (ER) | payer OTHER ==
[2020-10-07 21:53] VITALS: BP 163/79; PULSE 88; TEMP 97.9; BMI 29.5
== END 2020-10-07 23:34 | disposition left against medical advice (07) ==
LOC: JER 21:09
DX: K62.5 Hemorrhage of anus and rectum (principal)
CPT/HCPCS: 71046-TC-FY; 99284-25

== ENCOUNTER 2020-12-30 12:36 | Inpatient (IN) | payer OTHER ==
[2020-12-30 14:14] LABS: EOS % 7.5 % (0-4.5); HEMATOCRIT 27.4 % (35.4-49); LYMPH % 14.4 % (8-40); MCH 30.2 pg (25.7-33.7); MCHC 32.8 g/dl (32.0-35.9); MEAN CELL VOLUME 91.9 fl (80-96); MEAN PLT VOLUME 9.7 fl (7.5-11.1); MONO % 7.3 % (3.8-10.2); NEUT % 69.8 % (42.8-82.8); PLATELET COUNT 53 K/MM3 (134-434); RBC 2.98 M/mm3 (4.00-5.60); RDW 21.6 % (11.9-15.9); WHITE BLOOD COUNT 3.2 K/mm3 (4.0-10.0)
[2020-12-30 14:20] LABS: INR 1.08 (0.83-1.09); PROTHROMBIN TIME (PATIENT) 13.3 SEC (9.7-13.0)
[2020-12-30 14:23] LABS: ACTIVATED PTT 30.7 SECONDS (25.2-36.5)
[2020-12-30 14:45] LABS: POTASSIUM 4.5 mmol/L (3.5-5.1)
[2020-12-30 14:47] LABS: CALCIUM 8.3 mg/dL (8.5-10.1)
[2020-12-30 14:48] LABS: ALBUMIN 3.1 g/dl (3.4-5.0); BLOOD UREA NITROGEN 77.5 mg/dL (7-18); MAGNESIUM 2.6 mg/dL (1.8-2.4)
[2020-12-30 14:51] LABS: PHOSPHOROUS 5.9 mg/dL (2.5-4.9)
[2020-12-30 14:52] LABS: BILIRUBIN,TOTAL 0.9 mg/dL (0.2-1)
[2020-12-30 14:53] LABS: TOT PROT 6.4 g/dl (6.4-8.2)
[2020-12-30 14:56] LABS: N-TERMINAL BNP 24508.1 pg/ml (5-125)
[2020-12-30 15:35] LABS: CREATININE 9.6 mg/dL (0.55-1.3)
[2020-12-30] MEDS ORDERED: FUROSEMIDE 40 MG/4 ML INJECTABLE VIAL IVPUSH ONE (15:37)
[2020-12-30] MEDS ORDERED: LISINOPRIL 10 MG TABLET PO ONE (15:48)
[2020-12-30] MEDS ORDERED: diphenhydrAMINE HCL 25 MG CAPSULE (FP) PO ONE (16:22)
[2020-12-30] MEDS ORDERED: HYDROCORTISONE 0.5% TOPICAL CREAM 30 GM TUBE TP ONE (16:24)
[2020-12-30] MEDS ORDERED: LISINOPRIL 5 MG TABLET ONE (16:29)
[2020-12-30] MEDS ORDERED: FUROSEMIDE 40 MG/4 ML INJECTABLE VIAL ONE (16:29)
[2020-12-30] MEDS ORDERED: KETOROLAC TROMETHAMINE 30 MG/1 ML VIAL IVPUSH ONE (16:32)
[2020-12-30] MEDS ORDERED: LIDOCAINE 5% TOPICAL PATCH TP ONE (16:32)
[2020-12-30] MEDS ORDERED: LIDOCAINE 5% TOPICAL PATCH ONE (16:45)
[2020-12-30] MEDS ORDERED: KETOROLAC TROMETHAMINE 30 MG/1 ML VIAL ONE (16:45)
[2020-12-30 16:50] LABS: ANISOCYTOSIS 1+; MACROCYTOSIS 2+; OVALOCYTE 1+; PLATELET ESTIMATE DECREASED
[2020-12-30] MEDS ORDERED: amLODIPine BESYLATE 10 MG TABLET (FP) PO ONE (19:00)
[2020-12-30] MEDS ORDERED: amLODIPine BESYLATE 5 MG TABLET (FP) ONE (19:03)
[2020-12-30] MEDS ORDERED: SERTRALINE HCL 50 MG TABLET (FP) PO SCH (22:00)
[2020-12-30] MEDS ORDERED: PANTOPRAZOLE 40 MG TABLET ONE (23:30)
[2020-12-30] MEDS ORDERED: levETIRAcetam 500 MG TABLET (FP) PO ONE (23:30)
[2020-12-30] MEDS ORDERED: HEPARIN NA (PORCINE) 5,000 UNITS/ML 1ML VIAL ONE (23:31)
[2020-12-30] MEDS ORDERED: FOLIC ACID 1 MG TABLET (FP) ONE (23:31)
[2020-12-30] MEDS ORDERED: GABAPENTIN 100 MG CAPSULE ONE (23:31)
[2020-12-30] MEDS: PANTOPRAZOLE 40 MG TABLET PO SCH (23:39)
[2020-12-30] MEDS: GABAPENTIN 300 MG CAPSULE PO SCH (23:39)
[2020-12-30] MEDS: HEPARIN NA (PORCINE) 5,000 UNITS/ML 1ML VIAL SQ SCH (23:39)
[2020-12-30] MEDS: levETIRAcetam 500 MG TABLET (FP) PO SCH (23:39)
[2020-12-31] MEDS: RIFAXIMIN 550 MG TABLET (UD) PO SCH ×3 (00:08→21:56)
[2020-12-31] MEDS: SERTRALINE HCL 50 MG TABLET (FP) PO SCH ×3 (01:52→21:57)
[2020-12-31 02:30] VITALS: BMI 25.7
[2020-12-31] MEDS ORDERED: SODIUM CHLORIDE 250 ML IV PRN ×2 (08:08→16:38)
[2020-12-31 08:43] LABS: BASO % 0.8 % (0-2.0); EOS % 8.7 % (0-4.5); HEMATOCRIT 23.2 % (35.4-49); HEMOGLOBIN 7.8 GM/dL (11.7-16.9); LYMPH % 14.7 % (8-40); MCH 30.1 pg (25.7-33.7); MCHC 33.7 g/dl (32.0-35.9); MEAN CELL VOLUME 89.4 fl (80-96); MEAN PLT VOLUME 9.7 fl (7.5-11.1); MONO % 9.5 % (3.8-10.2); NEUT % 66.3 % (42.8-82.8); PLATELET COUNT 48 K/MM3 (134-434); RDW 21.3 % (11.9-15.9); WHITE BLOOD COUNT 2.4 K/mm3 (4.0-10.0)
[2020-12-31] MEDS ORDERED: EPOETIN ALFA-EPBX 10,000 UNIT/ML VIAL IVPUSH ONE (09:00)
[2020-12-31 09:24] LABS: BILIRUBIN,TOTAL 0.8 mg/dL (0.2-1)
[2020-12-31] MEDS: levETIRAcetam 500 MG TABLET (FP) PO SCH ×2 (09:32→21:56)
[2020-12-31] MEDS: THIAMINE HCL 100 MG TABLET (FP) PO SCH (09:32)
[2020-12-31] MEDS: PANTOPRAZOLE 40 MG TABLET PO SCH ×2 (09:32→21:56)
[2020-12-31] MEDS: HEPARIN NA (PORCINE) 5,000 UNITS/ML 1ML VIAL SQ SCH (09:32)
[2020-12-31] MEDS: amLODIPine BESYLATE 5 MG TABLET (FP) PO SCH ×2 (09:32→13:38)
[2020-12-31] MEDS: NALTREXONE HCL 50 MG TABLET PO SCH (09:32)
[2020-12-31] MEDS: FOLIC ACID 1 MG TABLET (FP) PO SCH (09:32)
[2020-12-31 11:13] LABS: ALBUMIN 2.8 g/dl (3.4-5.0); BLOOD UREA NITROGEN 80.3 mg/dL (7-18); CALCIUM 7.7 mg/dL (8.5-10.1); MAGNESIUM 2.5 mg/dL (1.8-2.4); POTASSIUM 4.8 mmol/L (3.5-5.1); TOT PROT 5.8 g/dl (6.4-8.2)
[2020-12-31 11:16] LABS: CREATININE 9.8 mg/dL (0.55-1.3)
[2020-12-31] MEDS: LACTULOSE 20 GM/30 ML UDC (FOR ORAL USE ONLY) PO SCH ×2 (13:22→21:56)
[2020-12-31] MEDS ORDERED: hydrALAZINE HCL 50 MG TABLET (FP) PO ONE (13:38)
[2020-12-31] MEDS ORDERED: hydrALAZINE HCL 25 MG TABLET (FP) PO SCH (14:00)
[2020-12-31] MEDS: hydrALAZINE HCL 50 MG TABLET (FP) PO SCH (21:55)
[2020-12-31] MEDS: GABAPENTIN 300 MG CAPSULE PO SCH (21:56)
[2020-12-31] MEDS: LIDOCAINE PATCH REMOVAL MC SCH (21:59)
[2020-12-31] MEDS ORDERED: MELATONIN 5 MG TABLETS PO ONE (22:39)
[2020-12-31] MEDS ORDERED: diphenhydrAMINE HCL 25 MG CAPSULE (FP) PO ONE (23:45)
[2021-01-01] MEDS ORDERED: ONDANSETRON 4 MG/2 ML VIAL IVPUSH ONE (01:50)
[2021-01-01] MEDS: hydrALAZINE HCL 50 MG TABLET (FP) PO SCH ×3 (06:34→21:21)
[2021-01-01] MEDS: LACTULOSE 20 GM/30 ML UDC (FOR ORAL USE ONLY) PO SCH ×3 (06:34→21:22)
[2021-01-01] MEDS ORDERED: EPOETIN ALFA-EPBX 10,000 UNIT/ML VIAL IVPUSH ONE (09:00)
[2021-01-01] MEDS: FOLIC ACID 1 MG TABLET (FP) PO SCH (10:00)
[2021-01-01] MEDS: levETIRAcetam 500 MG TABLET (FP) PO SCH ×2 (10:00→21:21)
[2021-01-01 10:34] LABS: BASO % 0.8 % (0-2.0); HEMATOCRIT 24.9 % (35.4-49); HEMOGLOBIN 8.3 GM/dL (11.7-16.9); LYMPH % 13.6 % (8-40); MCHC 33.1 g/dl (32.0-35.9); MEAN CELL VOLUME 90.6 fl (80-96); MEAN PLT VOLUME 10.8 fl (7.5-11.1); MONO % 13.3 % (3.8-10.2); NEUT % 64.3 % (42.8-82.8); PLATELET COUNT 63 K/MM3 (134-434); RBC 2.75 M/mm3 (4.00-5.60); WHITE BLOOD COUNT 2.9 K/mm3 (4.0-10.0)
[2021-01-01 10:52] LABS: POTASSIUM 3.7 mmol/L (3.5-5.1)
[2021-01-01 10:55] LABS: CALCIUM 7.5 mg/dL (8.5-10.1)
[2021-01-01 10:59] LABS: CREATININE 6.4 mg/dL (0.55-1.3)
[2021-01-01] MEDS: NALTREXONE HCL 50 MG TABLET PO SCH (11:00)
[2021-01-01 11:09] LABS: BLOOD UREA NITROGEN 41.7 mg/dL (7-18)
[2021-01-01] MEDS: amLODIPine BESYLATE 5 MG TABLET (FP) PO SCH (12:50)
[2021-01-01] MEDS: LISINOPRIL 10 MG TABLET PO SCH (12:51)
[2021-01-01] MEDS: PANTOPRAZOLE 40 MG TABLET PO SCH ×2 (13:32→21:20)
[2021-01-01] MEDS: RIFAXIMIN 550 MG TABLET (UD) PO SCH ×2 (13:33→21:20)
[2021-01-01] MEDS: THIAMINE HCL 100 MG TABLET (FP) PO SCH (13:34)
[2021-01-01] MEDS: SERTRALINE HCL 50 MG TABLET (FP) PO SCH ×2 (13:34→21:20)
[2021-01-01] MEDS ORDERED: SODIUM CHLORIDE 250 ML IV PRN (14:27)
[2021-01-01] MEDS: GABAPENTIN 300 MG CAPSULE PO SCH (21:20)
[2021-01-01] MEDS: LIDOCAINE PATCH REMOVAL MC SCH (21:21)
[2021-01-01] MEDS: LIDOCAINE HCL 5% TOP OINTMENT 50 GM TUBE TP SCH (21:21)
[2021-01-02] MEDS: hydrALAZINE HCL 50 MG TABLET (FP) PO SCH ×3 (05:58→21:57)
[2021-01-02] MEDS: LACTULOSE 20 GM/30 ML UDC (FOR ORAL USE ONLY) PO SCH ×3 (05:59→21:57)
[2021-01-02] MEDS ORDERED: PT OWN MED DRAWER 7, Y5N ONE ×2 (06:50→21:52)
[2021-01-02] MEDS ORDERED: EPOETIN ALFA-EPBX 4,000 UNIT/ML VIAL IVPUSH ONE (08:00)
[2021-01-02 09:45] LABS: HEMATOCRIT 25.7 % (35.4-49); HEMOGLOBIN 8.3 GM/dL (11.7-16.9); MCH 29.5 pg (25.7-33.7); MCHC 32.2 g/dl (32.0-35.9); MEAN CELL VOLUME 91.6 fl (80-96); MEAN PLT VOLUME 10.7 fl (7.5-11.1); PLATELET COUNT 64 K/MM3 (134-434); RBC 2.81 M/mm3 (4.00-5.60); RDW 20.7 % (11.9-15.9); WHITE BLOOD COUNT 3.7 K/mm3 (4.0-10.0)
[2021-01-02 10:01] LABS: POTASSIUM 3.5 mmol/L (3.5-5.1)
[2021-01-02 10:03] LABS: CALCIUM 7.5 mg/dL (8.5-10.1)
[2021-01-02 10:07] LABS: CREATININE 5.1 mg/dL (0.55-1.3)
[2021-01-02] MEDS ORDERED: HYDROCORTISONE 100 MG/60 ML RECTAL ENEMA RC ONE (10:45)
[2021-01-02] MEDS: LIDOCAINE HCL 5% TOP OINTMENT 50 GM TUBE TP SCH ×2 (11:16→22:02)
[2021-01-02] MEDS: FOLIC ACID 1 MG TABLET (FP) PO SCH (11:17)
[2021-01-02] MEDS: PANTOPRAZOLE 40 MG TABLET PO SCH ×2 (11:17→21:57)
[2021-01-02] MEDS: NALTREXONE HCL 50 MG TABLET PO SCH (11:17)
[2021-01-02] MEDS: levETIRAcetam 500 MG TABLET (FP) PO SCH ×2 (11:17→21:57)
[2021-01-02] MEDS: RIFAXIMIN 550 MG TABLET (UD) PO SCH ×2 (11:18→21:57)
[2021-01-02] MEDS: THIAMINE HCL 100 MG TABLET (FP) PO SCH (11:18)
[2021-01-02] MEDS: SERTRALINE HCL 50 MG TABLET (FP) PO SCH ×2 (11:18→21:57)
[2021-01-02] MEDS: amLODIPine BESYLATE 5 MG TABLET (FP) PO SCH (12:39)
[2021-01-02] MEDS: LISINOPRIL 10 MG TABLET PO SCH (12:39)
[2021-01-02] MEDS: LIDOCAINE PATCH REMOVAL MC SCH (21:30)
[2021-01-02] MEDS: HYDROCORTISONE ACETATE 25 MG/SUPP.RECT RC SCH (21:57)
[2021-01-02] MEDS: GABAPENTIN 300 MG CAPSULE PO SCH (21:57)
[2021-01-03] MEDS: hydrALAZINE HCL 50 MG TABLET (FP) PO SCH ×3 (06:25→21:23)
[2021-01-03] MEDS: LACTULOSE 20 GM/30 ML UDC (FOR ORAL USE ONLY) PO SCH ×3 (06:26→21:24)
[2021-01-03] MEDS: amLODIPine BESYLATE 5 MG TABLET (FP) PO SCH (09:27)
[2021-01-03] MEDS: THIAMINE HCL 100 MG TABLET (FP) PO SCH (09:27)
[2021-01-03] MEDS: levETIRAcetam 500 MG TABLET (FP) PO SCH ×2 (09:28→21:23)
[2021-01-03] MEDS: FOLIC ACID 1 MG TABLET (FP) PO SCH (09:28)
[2021-01-03] MEDS: RIFAXIMIN 550 MG TABLET (UD) PO SCH ×2 (09:28→21:23)
[2021-01-03] MEDS: SERTRALINE HCL 50 MG TABLET (FP) PO SCH ×2 (09:28→21:23)
[2021-01-03] MEDS: LISINOPRIL 10 MG TABLET PO SCH (09:28)
[2021-01-03] MEDS: PANTOPRAZOLE 40 MG TABLET PO SCH ×2 (09:28→21:23)
[2021-01-03] MEDS: NALTREXONE HCL 50 MG TABLET PO SCH (09:29)
[2021-01-03] MEDS: LIDOCAINE HCL 5% TOP OINTMENT 50 GM TUBE TP SCH (09:30)
[2021-01-03] MEDS: LIDOCAINE 5% TOPICAL PATCH TP SCH (10:08)
[2021-01-03] MEDS ORDERED: PT OWN MED DRAWER 7, Y5N ONE (21:19)
[2021-01-03] MEDS: GABAPENTIN 300 MG CAPSULE PO SCH (21:23)
[2021-01-03] MEDS: HYDROCORTISONE ACETATE 25 MG/SUPP.RECT RC SCH (21:24)
[2021-01-03] MEDS: LIDOCAINE PATCH REMOVAL MC SCH (21:29)
[2021-01-03] MEDS ORDERED: LIDOCAINE HCL 1%, 10 MG/ML (50 mL VIAL) SQ ONE (21:33)
[2021-01-03] MEDS ORDERED: methylPREDNISolone ACET (DEPO) 80 MG/1 ML VIAL IAR ONE (21:33)
[2021-01-03] MEDS ORDERED: oxyCODONE HCL 5 MG TABLET PO PRN (21:55)
[2021-01-04] MEDS ORDERED: ACETAMINOPHEN 1000 MG/100 ML VIAL (NON FORMULARY) IVPB ONE (01:18)
[2021-01-04] MEDS: hydrALAZINE HCL 50 MG TABLET (FP) PO SCH ×3 (07:00→21:38)
[2021-01-04] MEDS: LACTULOSE 20 GM/30 ML UDC (FOR ORAL USE ONLY) PO SCH ×3 (07:00→21:38)
[2021-01-04] MEDS ORDERED: LIDOCAINE HCL 1%, 10 MG/ML (20ML VIAL) SQ ONE (08:45)
[2021-01-04] MEDS ORDERED: methylPREDNISolone ACET (DEPO) 80 MG/1 ML VIAL IAR ONE (08:45)
[2021-01-04 09:12] LABS: BASO % 1.1 % (0-2.0); EOS % 7.8 % (0-4.5); HEMATOCRIT 28.6 % (35.4-49); HEMOGLOBIN 9.2 GM/dL (11.7-16.9); LYMPH % 14.6 % (8-40); MCH 29.6 pg (25.7-33.7); MCHC 32.1 g/dl (32.0-35.9); MEAN CELL VOLUME 92.1 fl (80-96); MEAN PLT VOLUME 11.3 fl (7.5-11.1); MONO % 13.8 % (3.8-10.2); NEUT % 62.7 % (42.8-82.8); PLATELET COUNT 72 K/MM3 (134-434); RDW 20.1 % (11.9-15.9); WHITE BLOOD COUNT 3.9 K/mm3 (4.0-10.0)
[2021-01-04 09:35] LABS: POTASSIUM 4.1 mmol/L (3.5-5.1)
[2021-01-04 09:36] LABS: CALCIUM 8.1 mg/dL (8.5-10.1)
[2021-01-04 09:37] LABS: BLOOD UREA NITROGEN 36.7 mg/dL (7-18)
[2021-01-04 09:40] LABS: CREATININE 5.8 mg/dL (0.55-1.3)
[2021-01-04] MEDS ORDERED: PT OWN MED DRAWER 7, Y5N ONE ×2 (09:43→21:41)
[2021-01-04] MEDS: amLODIPine BESYLATE 5 MG TABLET (FP) PO SCH (09:54)
[2021-01-04] MEDS: FOLIC ACID 1 MG TABLET (FP) PO SCH (09:54)
[2021-01-04] MEDS: levETIRAcetam 500 MG TABLET (FP) PO SCH ×2 (09:54→21:38)
[2021-01-04] MEDS: PANTOPRAZOLE 40 MG TABLET PO SCH ×2 (09:54→21:38)
[2021-01-04] MEDS: NALTREXONE HCL 50 MG TABLET PO SCH (09:54)
[2021-01-04] MEDS: RIFAXIMIN 550 MG TABLET (UD) PO SCH ×2 (09:55→21:38)
[2021-01-04] MEDS: THIAMINE HCL 100 MG TABLET (FP) PO SCH (09:55)
[2021-01-04] MEDS: SERTRALINE HCL 50 MG TABLET (FP) PO SCH ×2 (09:55→21:39)
[2021-01-04] MEDS: LISINOPRIL 10 MG TABLET PO SCH (09:55)
[2021-01-04] MEDS: LIDOCAINE 5% TOPICAL PATCH TP SCH (09:56)
[2021-01-04] MEDS ORDERED: ACETAMINOPHEN 325 MG TABLET (FP) PO PRN (12:33)
[2021-01-04] MEDS ORDERED: FUROSEMIDE 40 MG TABLET (FP) PO SCH (14:00)
[2021-01-04] MEDS: GABAPENTIN 300 MG CAPSULE PO SCH (21:39)
[2021-01-04] MEDS: HYDROCORTISONE ACETATE 25 MG/SUPP.RECT RC SCH (21:44)
[2021-01-04] MEDS: LIDOCAINE PATCH REMOVAL MC SCH (22:00)
[2021-01-05] MEDS: hydrALAZINE HCL 50 MG TABLET (FP) PO SCH ×3 (06:04→16:19)
[2021-01-05] MEDS: LACTULOSE 20 GM/30 ML UDC (FOR ORAL USE ONLY) PO SCH ×3 (06:04→16:19)
[2021-01-05] MEDS: levETIRAcetam 500 MG TABLET (FP) PO SCH (09:35)
[2021-01-05] MEDS: LISINOPRIL 10 MG TABLET PO SCH (09:35)
[2021-01-05] MEDS: PANTOPRAZOLE 40 MG TABLET PO SCH (09:35)
[2021-01-05] MEDS: FOLIC ACID 1 MG TABLET (FP) PO SCH (09:35)
[2021-01-05] MEDS: SERTRALINE HCL 50 MG TABLET (FP) PO SCH (09:35)
[2021-01-05] MEDS: amLODIPine BESYLATE 5 MG TABLET (FP) PO SCH (09:35)
[2021-01-05] MEDS: RIFAXIMIN 550 MG TABLET (UD) PO SCH (09:35)
[2021-01-05] MEDS: THIAMINE HCL 100 MG TABLET (FP) PO SCH (09:35)
[2021-01-05] MEDS: LIDOCAINE 5% TOPICAL PATCH TP SCH (09:36)
[2021-01-05] MEDS ORDERED: PT OWN MED DRAWER 7, Y5N ONE (09:37)
[2021-01-05] MEDS: NALTREXONE HCL 50 MG TABLET PO SCH (09:37)
[2021-01-05 12:47] LABS: HEMATOCRIT 23.8 % (35.4-49); HEMOGLOBIN 7.8 GM/dL (11.7-16.9); PLATELET COUNT 62 K/MM3 (134-434); RBC 2.62 M/mm3 (4.00-5.60); WHITE BLOOD COUNT 4.2 K/mm3 (4.0-10.0)
[2021-01-05] MEDS ORDERED: SODIUM CHLORIDE 250 ML IV PRN (13:00)
[2021-01-05] MEDS ORDERED: EPOETIN ALFA 10,000 UNIT/1 ML VIAL IVPUSH ONE (13:00)
[2021-01-05 13:05] LABS: POTASSIUM 4.2 mmol/L (3.5-5.1)
[2021-01-05 13:06] LABS: CALCIUM 7.9 mg/dL (8.5-10.1)
[2021-01-05 13:07] LABS: BLOOD UREA NITROGEN 47.1 mg/dL (7-18)
[2021-01-05 13:10] LABS: CREATININE 6.9 mg/dL (0.55-1.3)
[2021-01-05 15:08] LABS: EPI CELLS 4 /uL (0-25.1); HYALINE CASTS 1 /uL (0-3.1); PH,URINE 7.5 (5.0-8.0); URINE APPEARANCE CLEAR; URINE BACTERIA 67 /uL (0-1359); URINE BILIRUBIN NEGATIVE (NEGATIVE); URINE COLOR YELLOW; URINE GLUCOSE (UA) NEGATIVE (NEGATIVE); URINE KETONE NEGATIVE (NEGATIVE); URINE LEUK ESTERASE NEGATIVE (NEGATIVE); URINE NITRITE NEGATIVE (NEGATIVE); URINE PROTEIN 3+ (NEGATIVE); URINE RBC 4 /uL (0-23.9); URINE UROBILINOGEN 0.2 mg/dL (0.2-1.0); URINE WBC 2 /uL (0-25.8)
[2021-01-05 15:28] VITALS: PULSE 65
[2021-01-05 16:37] VITALS: BP 140/72; TEMP 98.8
== END 2021-01-05 18:36 | disposition home or self-care (01) | DRG 291 ==
LOC: JER 12:36 → JERBED 15:52 → J6S 12-31 01:31
PROVIDERS: ADMIT Family Medicine; ATTEND Family Medicine
PROC: 5A1D70Z Performance of Urinary Filtration, Intermittent, Less than 6 Hours Per Day (ICD-10-PCS; 2021-01-02)
PROC: 5A1D70Z Performance of Urinary Filtration, Intermittent, Less than 6 Hours Per Day (ICD-10-PCS; principal; 2021-01-05)
DX: I13.2 Hypertensive heart and chronic kidney disease with heart failure and with stage 5 chronic kidney disease, or end stage renal disease (principal); N18.6 End stage renal disease; K92.1 Melena; E11.22 Type 2 diabetes mellitus with diabetic chronic kidney disease; I50.32 Chronic diastolic (congestive) heart failure; D61.818 Other pancytopenia; E87.70 Fluid overload, unspecified; D72.819 Decreased white blood cell count, unspecified; K72.90 Hepatic failure, unspecified without coma; D72.10 Eosinophilia, unspecified; K70.30 Alcoholic cirrhosis of liver without ascites; D69.6 Thrombocytopenia, unspecified; M75.51 Bursitis of right shoulder; M75.52 Bursitis of left shoulder; Z99.2 Dependence on renal dialysis; Z86.16 Personal history of COVID-19; Z91.15 Patient's noncompliance with renal dialysis
CPT/HCPCS: 36415; 71045-TC-FY; 71250-TC; 72100-TC-FY; 73030-TC-LT-FY; 73030-TC-RT-FY; 74176-TC; 76700-TC; 80048; 80053; 81003; 82140; 82550; 82553; 82962; 83036; 83605; 83690; 83735; 83880; 84100; 84443; 84484; 85025; 85027; 85610; 85730; 86803; 86850; 86900; 86901; 87340; 93005; 93010; 97116-GP; 97162-GP; 99285-25; C9803; J0131; J0885; J1644; Q5106; U0003

== ENCOUNTER 2021-01-20 13:26 | Inpatient (IN) | payer OTHER ==
[2021-01-20 16:39] LABS: BASO % 0.5 % (0-2.0); EOS % 1.2 % (0-4.5); HEMATOCRIT 21.1 % (35.4-49); LYMPH % 9.4 % (8-40); MCH 29.2 pg (25.7-33.7); MCHC 32.8 g/dl (32.0-35.9); MEAN CELL VOLUME 89.1 fl (80-96); MEAN PLT VOLUME 10.3 fl (7.5-11.1); MONO % 7.5 % (3.8-10.2); NEUT % 81.4 % (42.8-82.8); PLATELET COUNT 75 K/MM3 (134-434); RBC 2.37 M/mm3 (4.00-5.60); RDW 17.6 % (11.9-15.9); WHITE BLOOD COUNT 4.6 K/mm3 (4.0-10.0)
[2021-01-20 16:42] LABS: HEMOGLOBIN 6.9 GM/dL (11.7-16.9)
[2021-01-20 17:11] LABS: POTASSIUM 4.8 mmol/L (3.5-5.1)
[2021-01-20 17:13] LABS: CALCIUM 8.1 mg/dL (8.5-10.1)
[2021-01-20 17:14] LABS: ALBUMIN 3.3 g/dl (3.4-5.0)
[2021-01-20 17:19] LABS: BILIRUBIN,TOTAL 0.9 mg/dL (0.2-1); TOT PROT 6.4 g/dl (6.4-8.2)
[2021-01-20] MEDS ORDERED: CEFEPIME HCL/D5W 1 GM/50 ML BAG IVPB ONE (17:32)
[2021-01-20] MEDS ORDERED: VANCOMYCIN 1 GM in D5W (PRE-DOCKED) 1,000 MG/250 ML IVPB ONE (17:32)
[2021-01-20] MEDS ORDERED: LACTULOSE 20 GM/30 ML UDC (FOR RECTAL USE ONLY) PR ONE (17:35)
[2021-01-20 17:41] LABS: BLOOD UREA NITROGEN 106.8 mg/dL (7-18)
[2021-01-20] MEDS ORDERED: CEFEPIME 1 GM/100 ML BAG IVPB ONE (17:57)
[2021-01-20] MEDS ORDERED: VANCOMYCIN 1 GRAM (PRE-DOCKED) 1,000 MG/250 ML BAG IVPB ONE (17:57)
[2021-01-20] MEDS ORDERED: LACTULOSE 20 GM/30 ML UDC (FOR ORAL USE ONLY) PO ONE (18:00)
[2021-01-20] MEDS ORDERED: LACTULOSE 20 GM/30 ML UDC (FOR ORAL USE ONLY) ONE (18:01)
[2021-01-20 18:15] LABS: VENOUS BASE EXCESS -8.6 mmol/L (-2-2); VENOUS O2 SATURATION 71.3 % (70-80); VENOUS PCO2 31.7 mmHg (38-52); VENOUS PH 7.333 (7.310-7.410)
[2021-01-20] MEDS ORDERED: ALBUTEROL SO4 HFA INHALER IH PRN (21:05)
[2021-01-20] MEDS ORDERED: RIFAXIMIN 200 MG TABLET PO SCH (22:00)
[2021-01-20] MEDS ORDERED: PANTOPRAZOLE 40 MG TABLET ONE (22:26)
[2021-01-20] MEDS ORDERED: hydrALAZINE HCL 25 MG TABLET (FP) ONE (22:27)
[2021-01-20] MEDS ORDERED: levETIRAcetam 500 MG TABLET (FP) PO ONE (22:27)
[2021-01-20] MEDS ORDERED: GABAPENTIN 100 MG CAPSULE ONE (22:27)
[2021-01-20] MEDS: PANTOPRAZOLE 40 MG TABLET PO SCH (22:35)
[2021-01-20] MEDS: GABAPENTIN 300 MG CAPSULE PO SCH (22:35)
[2021-01-20] MEDS: RIFAXIMIN 550 MG TABLET (UD) PO SCH (22:35)
[2021-01-20] MEDS: levETIRAcetam 500 MG TABLET (FP) PO SCH (22:35)
[2021-01-20] MEDS: hydrALAZINE HCL 50 MG TABLET (FP) PO SCH (22:35)
[2021-01-21] MEDS ORDERED: NITROGLYCERIN 2% OINTMENT - 1GM PACKET TD ONE (01:55)
[2021-01-21] MEDS: hydrALAZINE HCL 50 MG TABLET (FP) PO SCH ×3 (06:16→22:34)
[2021-01-21] MEDS ORDERED: SODIUM CHLORIDE 250 ML IV PRN (07:59)
[2021-01-21 08:02] VITALS: BMI 25.9
[2021-01-21] MEDS ORDERED: CEFEPIME 1 GM in DEXTROSE 5%-WATER - 1 GM/50 ML IVPB IVPB ONE ×2 (10:00→15:45)
[2021-01-21] MEDS ORDERED: EPOETIN ALFA-EPBX 10,000 UNIT/ML VIAL IVPUSH ONE (10:30)
[2021-01-21 10:34] LABS: HEMATOCRIT 20.5 % (35.4-49); MCH 30.1 pg (25.7-33.7); MCHC 34.1 g/dl (32.0-35.9); MEAN CELL VOLUME 88.2 fl (80-96); MEAN PLT VOLUME 9.8 fl (7.5-11.1); PLATELET COUNT 86 K/MM3 (134-434); RBC 2.33 M/mm3 (4.00-5.60); RDW 17.6 % (11.9-15.9); WHITE BLOOD COUNT 3.8 K/mm3 (4.0-10.0)
[2021-01-21 10:55] LABS: POTASSIUM 5.2 mmol/L (3.5-5.1)
[2021-01-21 10:57] LABS: BLOOD UREA NITROGEN 102.3 mg/dL (7-18); MAGNESIUM 2.8 mg/dL (1.8-2.4)
[2021-01-21 11:06] LABS: CREATININE 11.3 mg/dL (0.55-1.3)
[2021-01-21] MEDS ORDERED: NALOXONE HCL 0.4 MG/ML VIAL IVPUSH ONE (13:32)
[2021-01-21 13:34] LABS: HEMATOCRIT 22.2 % (35.4-49); HEMOGLOBIN 7.5 GM/dL (11.7-16.9); MCH 29.5 pg (25.7-33.7); MCHC 33.9 g/dl (32.0-35.9); MEAN CELL VOLUME 87.2 fl (80-96); MEAN PLT VOLUME 9.9 fl (7.5-11.1); PLATELET COUNT 92 K/MM3 (134-434); RBC 2.55 M/mm3 (4.00-5.60); RDW 17.9 % (11.9-15.9)
[2021-01-21 13:58] LABS: ARTERIAL BLD GAS O2 SATURATION 98.5 mmHg (95-98); ARTERIAL BLOOD GAS BASE EXCESS 5.3 mmol/L (-2-2); ARTERIAL BLOOD GAS pH 7.568 (7.350-7.450)
[2021-01-21 14:09] LABS: VENT RATE NPNP
[2021-01-21] MEDS ORDERED: PT OWN MED DRAWER 7, Y5N ONE ×2 (15:21→15:22)
[2021-01-21] MEDS ORDERED: DEXTROSE 5%-WATER - 50 ML IVPB ONE (15:36)
[2021-01-21] MEDS ORDERED: CEFEPIME HCL 1 GM VIAL (RESTRICTED TO ID) ONE (15:36)
[2021-01-21] MEDS: PANTOPRAZOLE 40 MG TABLET PO SCH (17:02)
[2021-01-21] MEDS: levETIRAcetam 500 MG TABLET (FP) PO SCH ×2 (18:00→22:34)
[2021-01-21] MEDS: amLODIPine BESYLATE 5 MG TABLET (FP) PO SCH (18:01)
[2021-01-21] MEDS: THIAMINE HCL 100 MG TABLET (FP) PO SCH (18:01)
[2021-01-21] MEDS: FUROSEMIDE 40 MG TABLET (FP) PO SCH (18:01)
[2021-01-21] MEDS: LISINOPRIL 10 MG TABLET PO SCH (18:01)
[2021-01-21] MEDS: FOLIC ACID 1 MG TABLET (FP) PO SCH (18:01)
[2021-01-21] MEDS: RIFAXIMIN 550 MG TABLET (UD) PO SCH ×3 (18:02→22:36)
[2021-01-21] MEDS: LACTULOSE 20 GM/30 ML UDC (FOR ORAL USE ONLY) PO SCH ×5 (18:02→22:36)
[2021-01-21] MEDS: CEFEPIME HCL/D5W 1 GM/50 ML BAG IVPB SCH ×2 (19:07→19:08)
[2021-01-21] MEDS: GABAPENTIN 300 MG CAPSULE PO SCH (22:35)
[2021-01-22] MEDS: LACTULOSE 20 GM/30 ML UDC (FOR ORAL USE ONLY) PO SCH ×7 (01:05→23:03)
[2021-01-22] MEDS: hydrALAZINE HCL 50 MG TABLET (FP) PO SCH ×3 (05:27→23:03)
[2021-01-22 08:39] LABS: BASO % 0.9 % (0-2.0); HEMATOCRIT 21.7 % (35.4-49); HEMOGLOBIN 7.4 GM/dL (11.7-16.9); LYMPH % 11.9 % (8-40); MCH 29.8 pg (25.7-33.7); MEAN CELL VOLUME 87.6 fl (80-96); MEAN PLT VOLUME 9.4 fl (7.5-11.1); MONO % 11.4 % (3.8-10.2); NEUT % 71.8 % (42.8-82.8); PLATELET COUNT 90 K/MM3 (134-434); RBC 2.48 M/mm3 (4.00-5.60); RDW 17.8 % (11.9-15.9); WHITE BLOOD COUNT 5.5 K/mm3 (4.0-10.0)
[2021-01-22 09:01] LABS: POTASSIUM 3.8 mmol/L (3.5-5.1)
[2021-01-22 09:08] LABS: ALBUMIN 2.8 g/dl (3.4-5.0); CALCIUM 8.1 mg/dL (8.5-10.1)
[2021-01-22 09:11] LABS: BILIRUBIN,TOTAL 1.1 mg/dL (0.2-1)
[2021-01-22 09:12] LABS: TOT PROT 5.7 g/dl (6.4-8.2)
[2021-01-22 09:14] LABS: BLOOD UREA NITROGEN 49.3 mg/dL (7-18)
[2021-01-22 09:22] LABS: CREATININE 8.3 mg/dL (0.55-1.3)
[2021-01-22] MEDS: amLODIPine BESYLATE 5 MG TABLET (FP) PO SCH (09:33)
[2021-01-22] MEDS: FUROSEMIDE 40 MG TABLET (FP) PO SCH (09:33)
[2021-01-22] MEDS: RIFAXIMIN 550 MG TABLET (UD) PO SCH ×2 (09:33→23:03)
[2021-01-22] MEDS: LISINOPRIL 10 MG TABLET PO SCH (09:33)
[2021-01-22] MEDS: THIAMINE HCL 100 MG TABLET (FP) PO SCH (09:33)
[2021-01-22] MEDS: levETIRAcetam 500 MG TABLET (FP) PO SCH ×2 (09:33→23:02)
[2021-01-22] MEDS: FOLIC ACID 1 MG TABLET (FP) PO SCH (09:33)
[2021-01-22] MEDS ORDERED: PANTOPRAZOLE SODIUM 40 MG in SODIUM CHLORIDE 100 ML IVPB SCH (10:00)
[2021-01-22] MEDS: PANTOPRAZOLE SODIUM 40 MG VIAL IVPB SCH (11:24)
[2021-01-22] MEDS: GABAPENTIN 300 MG CAPSULE PO SCH (23:03)
[2021-01-23] MEDS ORDERED: ACETAMINOPHEN 325 MG TABLET (FP) PO ONE (04:37)
[2021-01-23] MEDS: LACTULOSE 20 GM/30 ML UDC (FOR ORAL USE ONLY) PO SCH ×2 (05:18→13:51)
[2021-01-23] MEDS: hydrALAZINE HCL 50 MG TABLET (FP) PO SCH ×2 (05:18→13:51)
[2021-01-23] MEDS ORDERED: SODIUM CHLORIDE 250 ML IV PRN (07:00)
[2021-01-23] MEDS: METHYL SALICYLATE/MENTHOL OINT 30 GM TUBE TP SCH ×2 (07:43→11:42)
[2021-01-23] MEDS ORDERED: EPOETIN ALFA-EPBX 4,000 UNIT/ML VIAL SQ ONE (08:00)
[2021-01-23] MEDS ORDERED: LIDOCAINE 2.5%/PRILOCAINE 2.5% (5 Gram/TUBE) TP ONE (08:00)
[2021-01-23 08:39] LABS: BASO % 1.1 % (0-2.0); EOS % 8.3 % (0-4.5); HEMATOCRIT 21.9 % (35.4-49); HEMOGLOBIN 7.4 GM/dL (11.7-16.9); LYMPH % 13.8 % (8-40); MCH 29.8 pg (25.7-33.7); MCHC 33.7 g/dl (32.0-35.9); MEAN CELL VOLUME 88.6 fl (80-96); MEAN PLT VOLUME 9.7 fl (7.5-11.1); MONO % 11.9 % (3.8-10.2); NEUT % 64.9 % (42.8-82.8); PLATELET COUNT 90 K/MM3 (134-434); RBC 2.47 M/mm3 (4.00-5.60); RDW 17.4 % (11.9-15.9); WHITE BLOOD COUNT 5.2 K/mm3 (4.0-10.0)
[2021-01-23 09:09] LABS: POTASSIUM 3.4 mmol/L (3.5-5.1)
[2021-01-23 09:11] LABS: BLOOD UREA NITROGEN 51.1 mg/dL (7-18); CALCIUM 7.9 mg/dL (8.5-10.1)
[2021-01-23 09:12] LABS: ALBUMIN 2.9 g/dl (3.4-5.0)
[2021-01-23 09:16] LABS: TOT PROT 5.8 g/dl (6.4-8.2)
[2021-01-23 09:28] LABS: CREATININE 8.9 mg/dL (0.55-1.3)
[2021-01-23 11:25] VITALS: BP 148/77; PULSE 68
[2021-01-23] MEDS: amLODIPine BESYLATE 5 MG TABLET (FP) PO SCH (11:41)
[2021-01-23] MEDS: FUROSEMIDE 40 MG TABLET (FP) PO SCH (11:41)
[2021-01-23] MEDS: PANTOPRAZOLE SODIUM 40 MG VIAL IVPB SCH (11:42)
[2021-01-23] MEDS: FOLIC ACID 1 MG TABLET (FP) PO SCH (11:42)
[2021-01-23] MEDS: THIAMINE HCL 100 MG TABLET (FP) PO SCH (11:42)
[2021-01-23] MEDS: RIFAXIMIN 550 MG TABLET (UD) PO SCH (11:42)
[2021-01-23] MEDS: levETIRAcetam 500 MG TABLET (FP) PO SCH (11:42)
[2021-01-23] MEDS: LISINOPRIL 10 MG TABLET PO SCH (11:42)
[2021-01-23 15:43] VITALS: TEMP 98
== END 2021-01-23 15:42 | disposition home or self-care (01) | DRG 682 ==
LOC: JER 13:26 → JERBED 15:19 → J5S 01-21 01:51
PROVIDERS: ADMIT Family Medicine; ATTEND Family Medicine
PROC: 0DH673Z Insertion of Infusion Device into Stomach, Via Natural or Artificial Opening (ICD-10-PCS; principal; 2021-01-21)
PROC: 5A1D70Z Performance of Urinary Filtration, Intermittent, Less than 6 Hours Per Day (ICD-10-PCS; 2021-01-21)
PROC: 5A1D70Z Performance of Urinary Filtration, Intermittent, Less than 6 Hours Per Day (ICD-10-PCS; 2021-01-21)
DX: I13.11 Hypertensive heart and chronic kidney disease without heart failure, with stage 5 chronic kidney disease, or end stage renal disease (principal); G93.41 Metabolic encephalopathy; N18.6 End stage renal disease; J18.9 Pneumonia, unspecified organism; D61.818 Other pancytopenia; E72.20 Disorder of urea cycle metabolism, unspecified; K70.30 Alcoholic cirrhosis of liver without ascites; F10.10 Alcohol abuse, uncomplicated; E78.5 Hyperlipidemia, unspecified; E11.22 Type 2 diabetes mellitus with diabetic chronic kidney disease; R56.9 Unspecified convulsions; F41.8 Other specified anxiety disorders; D63.1 Anemia in chronic kidney disease; K57.90 Diverticulosis of intestine, part unspecified, without perforation or abscess without bleeding; G93.89 Other specified disorders of brain; R91.8 Other nonspecific abnormal finding of lung field; Z86.16 Personal history of COVID-19; Z91.15 Patient's noncompliance with renal dialysis
CPT/HCPCS: 36415; 36430; 36600; 70450-TC; 71045-TC-FY; 71250-TC; 80048; 80053; 82140; 82550; 82553; 82803; 83540; 83550; 83605; 83735; 84484; 85025; 85027; 86850; 86900; 86901; 86922; 87040; 93005; 93010; 99285-25; C9803; Q5106; U0003

== ENCOUNTER 2021-01-28 08:25 | Emergency (ER) | payer OTHER ==
[2021-01-28 08:30] VITALS: BMI 26.6
[2021-01-28 09:56] LABS: BASO % 1.2 % (0-2.0); HEMATOCRIT 20.1 % (35.4-49); LYMPH % 12.9 % (8-40); MCHC 32.5 g/dl (32.0-35.9); MEAN CELL VOLUME 92.4 fl (80-96); MEAN PLT VOLUME 9.9 fl (7.5-11.1); MONO % 9.8 % (3.8-10.2); NEUT % 68.1 % (42.8-82.8); PLATELET COUNT 56 K/MM3 (134-434); RBC 2.17 M/mm3 (4.00-5.60); RDW 17.5 % (11.9-15.9)
[2021-01-28 09:59] LABS: POTASSIUM 4.9 mmol/L (3.5-5.1)
[2021-01-28 10:02] LABS: ALBUMIN 2.9 g/dl (3.4-5.0); BLOOD UREA NITROGEN 57.2 mg/dL (7-18); CALCIUM 7.8 mg/dL (8.5-10.1); MAGNESIUM 2.3 mg/dL (1.8-2.4)
[2021-01-28 10:05] LABS: CREATININE 6.7 mg/dL (0.55-1.3); PHOSPHOROUS 5.4 mg/dL (2.5-4.9)
[2021-01-28 10:07] LABS: BILIRUBIN,TOTAL 0.7 mg/dL (0.2-1); TOT PROT 5.8 g/dl (6.4-8.2)
[2021-01-28 10:16] LABS: HEMOGLOBIN 6.5 GM/dL (11.7-16.9)
[2021-01-28 10:16] LABS: INR 1.01 (0.83-1.09); PROTHROMBIN TIME (PATIENT) 12.2 SEC (9.7-13.0)
[2021-01-28 10:19] LABS: ACTIVATED PTT 32.1 SECONDS (25.2-36.5)
[2021-01-28 12:43] VITALS: BP 133/79; PULSE 88; TEMP 98.9
== END 2021-01-28 12:30 | disposition left against medical advice (07) ==
LOC: JER 08:25
DX: D64.9 Anemia, unspecified (principal); N18.6 End stage renal disease; R42 Dizziness and giddiness
CPT/HCPCS: 36415; 70450-TC; 80053; 82550; 82553; 83735; 84100; 84484; 85025; 85610; 85730; 86922; 93005; 93010; 99285-25

== ENCOUNTER 2021-01-28 19:39 | Inpatient (IN) | payer OTHER ==
[2021-01-29 01:59] LABS: BASO % 1.1 % (0-2.0); EOS % 8.3 % (0-4.5); HEMATOCRIT 20.6 % (35.4-49); LYMPH % 15.2 % (8-40); MCH 29.5 pg (25.7-33.7); MCHC 32.3 g/dl (32.0-35.9); MEAN CELL VOLUME 91.2 fl (80-96); MEAN PLT VOLUME 10.6 fl (7.5-11.1); MONO % 9.6 % (3.8-10.2); NEUT % 65.8 % (42.8-82.8); PLATELET COUNT 48 K/MM3 (134-434); RBC 2.26 M/mm3 (4.00-5.60); RDW 17.4 % (11.9-15.9); WHITE BLOOD COUNT 3.1 K/mm3 (4.0-10.0)
[2021-01-29 02:14] LABS: POTASSIUM 5.3 mmol/L (3.5-5.1)
[2021-01-29 02:15] LABS: HEMOGLOBIN 6.7 GM/dL (11.7-16.9)
[2021-01-29 02:16] LABS: CALCIUM 7.9 mg/dL (8.5-10.1)
[2021-01-29 02:17] LABS: BLOOD UREA NITROGEN 66.3 mg/dL (7-18)
[2021-01-29 02:20] LABS: CREATININE 7.3 mg/dL (0.55-1.3)
[2021-01-29 02:21] LABS: BILIRUBIN,TOTAL 0.5 mg/dL (0.2-1)
[2021-01-29 02:22] LABS: TOT PROT 5.9 g/dl (6.4-8.2)
[2021-01-29] MEDS ORDERED: HEPARIN NA (PORCINE) 5,000 UNITS/ML 1ML VIAL SQ SCH (06:00)
[2021-01-29] MEDS: INSULIN SLIDING SCALE (NOVOLOG) 1 VIAL SQ SCH ×4 (07:32→21:52)
[2021-01-29 09:25] LABS: BASO % 0.9 % (0-2.0); EOS % 8.5 % (0-4.5); HEMATOCRIT 20.7 % (35.4-49); LYMPH % 16.2 % (8-40); MCH 30.2 pg (25.7-33.7); MCHC 33.7 g/dl (32.0-35.9); MEAN CELL VOLUME 89.6 fl (80-96); MEAN PLT VOLUME 10.2 fl (7.5-11.1); MONO % 9.6 % (3.8-10.2); NEUT % 64.8 % (42.8-82.8); PLATELET COUNT 42 K/MM3 (134-434); RBC 2.31 M/mm3 (4.00-5.60); RDW 16.6 % (11.9-15.9); WHITE BLOOD COUNT 2.5 K/mm3 (4.0-10.0)
[2021-01-29 09:47] LABS: POTASSIUM 4.9 mmol/L (3.5-5.1)
[2021-01-29] MEDS ORDERED: SODIUM CHLORIDE 250 ML IV PRN (10:00)
[2021-01-29 10:14] LABS: CALCIUM 7.7 mg/dL (8.5-10.1)
[2021-01-29 10:15] LABS: BLOOD UREA NITROGEN 69.3 mg/dL (7-18)
[2021-01-29 10:16] LABS: ALBUMIN 2.6 g/dl (3.4-5.0); MAGNESIUM 2.2 mg/dL (1.8-2.4)
[2021-01-29 10:18] LABS: PHOSPHOROUS 5.6 mg/dL (2.5-4.9)
[2021-01-29 10:19] LABS: BILIRUBIN,TOTAL 1.2 mg/dL (0.2-1); TOT PROT 5.3 g/dl (6.4-8.2)
[2021-01-29] MEDS ORDERED: EPOETIN ALFA-EPBX 20,000 UNIT/ML VIAL SQ ONE (10:30)
[2021-01-29 10:31] LABS: CREATININE 7.4 mg/dL (0.55-1.3)
[2021-01-29] MEDS: LISINOPRIL 10 MG TABLET PO SCH ×2 (13:02→18:08)
[2021-01-29 17:21] LABS: BASO % 1.3 % (0-2.0); EOS % 8.2 % (0-4.5); HEMATOCRIT 25.6 % (35.4-49); HEMOGLOBIN 8.7 GM/dL (11.7-16.9); LYMPH % 17.1 % (8-40); MCH 29.6 pg (25.7-33.7); MCHC 33.9 g/dl (32.0-35.9); MEAN CELL VOLUME 87.2 fl (80-96); MONO % 11.1 % (3.8-10.2); NEUT % 62.3 % (42.8-82.8); PLATELET COUNT 42 K/MM3 (134-434); RBC 2.94 M/mm3 (4.00-5.60); RDW 16.7 % (11.9-15.9); WHITE BLOOD COUNT 2.1 K/mm3 (4.0-10.0)
[2021-01-29 18:07] VITALS: BMI 26.4
[2021-01-30] MEDS: INSULIN SLIDING SCALE (NOVOLOG) 1 VIAL SQ SCH ×2 (06:29→12:31)
[2021-01-30 07:42] LABS: BASO % 1.2 % (0-2.0); EOS % 7.4 % (0-4.5); HEMATOCRIT 24.7 % (35.4-49); HEMOGLOBIN 8.4 GM/dL (11.7-16.9); LYMPH % 18.3 % (8-40); MCH 30.3 pg (25.7-33.7); MCHC 34.1 g/dl (32.0-35.9); MEAN CELL VOLUME 88.9 fl (80-96); MEAN PLT VOLUME 10.9 fl (7.5-11.1); MONO % 12.2 % (3.8-10.2); NEUT % 60.9 % (42.8-82.8); RBC 2.78 M/mm3 (4.00-5.60); RDW 16.7 % (11.9-15.9); WHITE BLOOD COUNT 2.6 K/mm3 (4.0-10.0)
[2021-01-30 07:51] LABS: PLATELET COUNT 36 K/MM3 (134-434)
[2021-01-30 07:58] LABS: POTASSIUM 4.1 mmol/L (3.5-5.1)
[2021-01-30 08:05] LABS: CALCIUM 7.9 mg/dL (8.5-10.1)
[2021-01-30 08:06] LABS: ALBUMIN 2.6 g/dl (3.4-5.0)
[2021-01-30 08:09] LABS: PHOSPHOROUS 3.6 mg/dL (2.5-4.9)
[2021-01-30 08:11] LABS: BLOOD UREA NITROGEN 38.3 mg/dL (7-18); TOT PROT 5.3 g/dl (6.4-8.2)
[2021-01-30] MEDS ORDERED: EPOETIN ALFA 10,000 UNIT/1 ML VIAL SQ ONE (08:45)
[2021-01-30] MEDS ORDERED: SODIUM CHLORIDE 250 ML IV PRN (08:46)
[2021-01-30] MEDS: FUROSEMIDE 40 MG TABLET (FP) PO SCH ×2 (10:00→13:23)
[2021-01-30] MEDS ORDERED: levETIRAcetam 500 MG TABLET (FP) PO SCH (10:00)
[2021-01-30] MEDS: LISINOPRIL 10 MG TABLET PO SCH (13:23)
[2021-01-30] MEDS ORDERED: hydrALAZINE HCL 50 MG TABLET (FP) PO SCH (14:00)
[2021-01-30 14:25] VITALS: BP 141/70; PULSE 63; TEMP 98.5
[2021-02-01 19:24] LABS: HEP B CORE AB, TOT Negative (Negative)
== END 2021-01-30 15:52 | disposition home or self-care (01) | DRG 682 ==
LOC: JER 19:39 → JERBED 01-29 03:43 → J7W 01-29 17:35
PROVIDERS: ADMIT Hospitalist; ATTEND Internal Medicine
PROC: 30233N1 Transfusion of Nonautologous Red Blood Cells into Peripheral Vein, Percutaneous Approach (ICD-10-PCS; principal; 2021-01-29)
PROC: 5A1D70Z Performance of Urinary Filtration, Intermittent, Less than 6 Hours Per Day (ICD-10-PCS; 2021-01-30)
DX: I12.0 Hypertensive chronic kidney disease with stage 5 chronic kidney disease or end stage renal disease (principal); N18.6 End stage renal disease; D63.1 Anemia in chronic kidney disease; E11.22 Type 2 diabetes mellitus with diabetic chronic kidney disease; Z99.2 Dependence on renal dialysis; E78.5 Hyperlipidemia, unspecified; Z91.15 Patient's noncompliance with renal dialysis; R41.82 Altered mental status, unspecified; K74.60 Unspecified cirrhosis of liver; D47.3 Essential (hemorrhagic) thrombocythemia; K72.90 Hepatic failure, unspecified without coma
CPT/HCPCS: 36415; 36430; 36511; 72100-TC-FY; 80053; 82962; 83735; 84100; 85025; 86704; 86706; 86707; 86708; 86709; 86803; 86850; 86900; 86901; 86922; 87340; 87804; 93005; 93010; 93971-TC; 99285-25; C9803; J0885; P9038; P9058; U0003

== ENCOUNTER 2021-03-13 10:25 | Inpatient (IN) | payer OTHER ==
[2021-03-13 11:19] VITALS: BMI 24.3
[2021-03-13 12:34] LABS: BASO % 1.4 % (0-2.0); EOS % 3.6 % (0-4.5); HEMATOCRIT 15.1 % (35.4-49); LYMPH % 16.2 % (8-40); MCH 32.1 pg (25.7-33.7); MCHC 34.3 g/dl (32.0-35.9); MEAN CELL VOLUME 93.7 fl (80-96); NEUT % 67.8 % (42.8-82.8); PLATELET COUNT 88 K/MM3 (134-434); RBC 1.62 M/mm3 (4.00-5.60); RDW 24.5 % (11.9-15.9); WHITE BLOOD COUNT 2.4 K/mm3 (4.0-10.0)
[2021-03-13 12:37] LABS: HEMOGLOBIN 5.2 GM/dL (11.7-16.9)
[2021-03-13] MEDS ORDERED: SODIUM CHLORIDE 250 ML IV PRN (12:48)
[2021-03-13 12:49] LABS: CHLORIDE 97 mmol/L (98-107); SODIUM 132 mmol/L (136-145)
[2021-03-13 12:51] LABS: ALBUMIN 2.6 g/dl (3.4-5.0); ANION GAP 12 MMOL/L (8-16); CALCIUM 7.7 mg/dL (8.5-10.1); CO2 22 mmol/L (21-32); GLUCOSE,RANDOM 96 mg/dL (74-106); MAGNESIUM 2.3 mg/dL (1.8-2.4)
[2021-03-13 12:52] LABS: BLOOD UREA NITROGEN 73.5 mg/dL (7-18)
[2021-03-13 12:54] LABS: PHOSPHOROUS 5.6 mg/dL (2.5-4.9); SGPT/ALT 27 U/L (13-61)
[2021-03-13 12:55] LABS: SGOT/AST 30 U/L (15-37)
[2021-03-13 12:56] LABS: BILIRUBIN,TOTAL 0.5 mg/dL (0.2-1); TOT PROT 5.4 g/dl (6.4-8.2)
[2021-03-13 12:57] LABS: ALK PHOS 204 U/L (45-117)
[2021-03-13 13:18] LABS: ANISOCYTOSIS 2+; MACROCYTOSIS 0; PLATELET ESTIMATE DECREASED
[2021-03-13 13:21] LABS: CREATININE 12.4 mg/dL (0.55-1.3)
[2021-03-13] MEDS ORDERED: ACETAMINOPHEN 325 MG TABLET (FP) PO PRN (14:24)
[2021-03-13] MEDS ORDERED: ACETAMINOPHEN 1000 MG/100 ML VIAL (NON FORMULARY) IVPB ONE (21:10)
[2021-03-13] MEDS: levETIRAcetam 500 MG TABLET (FP) PO SCH (21:48)
[2021-03-13] MEDS: hydrALAZINE HCL 50 MG TABLET (FP) PO SCH (21:48)
[2021-03-13] MEDS ORDERED: diphenhydrAMINE HCL 25 MG CAPSULE (FP) PO ONE (22:18)
[2021-03-14] MEDS ORDERED: PT OWN MED DRAWER 7, Y5N ONE (02:44)
[2021-03-14] MEDS ORDERED: ONDANSETRON 4 MG/2 ML VIAL IVPUSH PRN ×2 (02:50→15:00)
[2021-03-14] MEDS ORDERED: ONDANSETRON 4 MG/2 ML VIAL ONE (02:51)
[2021-03-14] MEDS: hydrALAZINE HCL 50 MG TABLET (FP) PO SCH ×2 (06:26→14:00)
[2021-03-14 08:06] LABS: HEMATOCRIT 20.7 % (35.4-49); HEMOGLOBIN 7.2 GM/dL (11.7-16.9); MCH 31.7 pg (25.7-33.7); MCHC 34.7 g/dl (32.0-35.9); MEAN CELL VOLUME 91.2 fl (80-96); PLATELET COUNT 78 K/MM3 (134-434); RBC 2.27 M/mm3 (4.00-5.60); RDW 19.4 % (11.9-15.9)
[2021-03-14 08:11] LABS: CALCIUM 7.4 mg/dL (8.5-10.1)
[2021-03-14 08:15] LABS: CREATININE 6.7 mg/dL (0.55-1.3)
[2021-03-14 08:28] LABS: BLOOD UREA NITROGEN 30.9 mg/dL (7-18)
[2021-03-14 08:41] LABS: WHITE BLOOD COUNT 1.7 K/mm3 (4.0-10.0)
[2021-03-14] MEDS: INSULIN SLIDING SCALE (NOVOLOG) 1 VIAL SQ SCH ×2 (09:11→16:31)
[2021-03-14] MEDS: levETIRAcetam 500 MG TABLET (FP) PO SCH (09:12)
[2021-03-14] MEDS ORDERED: FUROSEMIDE 40 MG TABLET (FP) PO SCH (10:00)
[2021-03-14] MEDS ORDERED: LISINOPRIL 10 MG TABLET PO SCH (10:00)
[2021-03-14 13:03] LABS: ANISOCYTOSIS 1+; MACROCYTOSIS 1+; PLATELET ESTIMATE DECREASED
[2021-03-14] MEDS ORDERED: NYSTATIN POWDER 100,000 UNITS/GM - 15 GM TOPICAL POWDER TP SCH (13:45)
[2021-03-14 15:23] VITALS: BP 135/61; PULSE 84; TEMP 98.2
[2021-03-15 13:07] LABS: HEP B CORE AB, TOT Negative (Negative)
== END 2021-03-14 17:33 | disposition left against medical advice (07) | DRG 682 ==
LOC: JER 10:25 → JERBED 12:40 → J7W 18:16
PROVIDERS: ADMIT Internal Medicine; ATTEND Student in an Organized Health Care Education/Training Program
PROC: 5A1D70Z Performance of Urinary Filtration, Intermittent, Less than 6 Hours Per Day (ICD-10-PCS; principal; 2021-03-13)
PROC: 30233N1 Transfusion of Nonautologous Red Blood Cells into Peripheral Vein, Percutaneous Approach (ICD-10-PCS; 2021-03-13)
DX: I12.0 Hypertensive chronic kidney disease with stage 5 chronic kidney disease or end stage renal disease (principal); N18.6 End stage renal disease; D61.818 Other pancytopenia; D63.1 Anemia in chronic kidney disease; E78.5 Hyperlipidemia, unspecified; E11.22 Type 2 diabetes mellitus with diabetic chronic kidney disease; D70.9 Neutropenia, unspecified; Z91.15 Patient's noncompliance with renal dialysis; K70.30 Alcoholic cirrhosis of liver without ascites; M41.9 Scoliosis, unspecified; M54.9 Dorsalgia, unspecified
CPT/HCPCS: 36415; 36430; 71045-TC-FY; 80048; 80053; 82550; 82553; 82962; 83735; 84100; 84443; 84484; 85025; 85027; 86704; 86706; 86707; 86708; 86709; 86803; 86850; 86900; 86901; 86922; 87340; 93005; 93010; 99285-25; C9803; J0131; P9058; U0003; U0005

== ENCOUNTER 2021-03-14 21:50 | Inpatient (IN) | payer OTHER ==
[2021-03-14 21:58] VITALS: BMI 21.9
[2021-03-15] MEDS ORDERED: ACETAMINOPHEN 325 MG TABLET (FP) PO PRN (01:15)
[2021-03-15 01:27] LABS: CHLORIDE 101 mmol/L (98-107); SODIUM 136 mmol/L (136-145)
[2021-03-15 01:29] LABS: ANION GAP 9 MMOL/L (8-16); CALCIUM 7.4 mg/dL (8.5-10.1); CO2 27 mmol/L (21-32)
[2021-03-15 01:30] LABS: ALBUMIN 2.7 g/dl (3.4-5.0); GLUCOSE,RANDOM 75 mg/dL (74-106); MAGNESIUM 1.9 mg/dL (1.8-2.4)
[2021-03-15 01:32] LABS: SGPT/ALT 24 U/L (13-61)
[2021-03-15 01:33] LABS: PHOSPHOROUS 3.7 mg/dL (2.5-4.9); SGOT/AST 31 U/L (15-37)
[2021-03-15 01:34] LABS: BILIRUBIN,TOTAL 0.6 mg/dL (0.2-1); TOT PROT 5.7 g/dl (6.4-8.2)
[2021-03-15 01:35] LABS: ALK PHOS 175 U/L (45-117)
[2021-03-15 01:46] LABS: CREATININE 7.7 mg/dL (0.55-1.3)
[2021-03-15] MEDS ORDERED: HEPARIN NA (PORCINE) 5,000 UNITS/ML 1ML VIAL SQ SCH (02:00)
[2021-03-15] MEDS: hydrALAZINE HCL 50 MG TABLET (FP) PO SCH ×3 (07:00→21:17)
[2021-03-15] MEDS: INSULIN SLIDING SCALE (NOVOLOG) 1 VIAL SQ SCH ×4 (07:06→21:19)
[2021-03-15 08:48] LABS: LDH 321 U/L (87-246)
[2021-03-15] MEDS: LISINOPRIL 10 MG TABLET PO SCH (09:55)
[2021-03-15] MEDS: FUROSEMIDE 40 MG TABLET (FP) PO SCH (09:55)
[2021-03-15] MEDS: levETIRAcetam 500 MG TABLET (FP) PO SCH ×2 (09:55→21:17)
[2021-03-15] MEDS: MULTIVITAMINS (DAILY MVI) TABLET (FP) PO SCH (09:55)
[2021-03-15 10:46] LABS: HEMATOCRIT 18.9 % (35.4-49); MCH 32.1 pg (25.7-33.7); MCHC 34.7 g/dl (32.0-35.9); MEAN CELL VOLUME 92.6 fl (80-96); MEAN PLT VOLUME 8.7 fl (7.5-11.1); PLATELET COUNT 61 K/MM3 (134-434); RBC 2.04 M/mm3 (4.00-5.60); RDW 22.1 % (11.9-15.9); WHITE BLOOD COUNT 2.1 K/mm3 (4.0-10.0)
[2021-03-15 11:02] LABS: CHLORIDE 102 mmol/L (98-107); SODIUM 140 mmol/L (136-145)
[2021-03-15 11:04] LABS: ANION GAP 8 MMOL/L (8-16); BLOOD UREA NITROGEN 38.2 mg/dL (7-18); CO2 29 mmol/L (21-32); GLUCOSE,RANDOM 69 mg/dL (74-106); MAGNESIUM 1.9 mg/dL (1.8-2.4)
[2021-03-15 11:07] LABS: HEMOGLOBIN 6.6 GM/dL (11.7-16.9); PHOSPHOROUS 4.6 mg/dL (2.5-4.9)
[2021-03-15 11:11] LABS: LDH 264 U/L (87-246)
[2021-03-15 11:36] LABS: CREATININE 8.3 mg/dL (0.55-1.3)
[2021-03-15 13:43] LABS: RETICULOCYTES 3.98 % (0.5-1.5)
[2021-03-15 13:56] LABS: TOTAL IRON BINDING CAPACITY 239 ug/dL (250-450)
[2021-03-15 14:04] LABS: IRON SERUM 28 ug/dL (50-175)
[2021-03-15 15:02] LABS: ALBUMIN 2.6 g/dl (3.4-5.0)
[2021-03-15 15:05] LABS: BILIRUBIN,DIRECT 0.3 mg/dL (0.0-0.2); SGOT/AST 23 U/L (15-37); SGPT/ALT 20 U/L (13-61)
[2021-03-15 15:07] LABS: BILIRUBIN,TOTAL 0.7 mg/dL (0.2-1)
[2021-03-15 15:08] LABS: ALK PHOS 136 U/L (45-117)
[2021-03-15] MEDS ORDERED: SODIUM CHLORIDE 250 ML IV PRN (15:08)
[2021-03-15] MEDS: LACTULOSE 20 GM/30 ML UDC (FOR ORAL USE ONLY) PO SCH ×2 (17:26→21:16)
[2021-03-16] MEDS: LIDOCAINE PATCH REMOVAL MC SCH ×2 (02:18→22:37)
[2021-03-16] MEDS ORDERED: ACETAMINOPHEN 1000 MG/100 ML VIAL (NON FORMULARY) IVPB ONE (05:30)
[2021-03-16] MEDS: hydrALAZINE HCL 50 MG TABLET (FP) PO SCH ×3 (05:56→22:37)
[2021-03-16] MEDS: INSULIN SLIDING SCALE (NOVOLOG) 1 VIAL SQ SCH ×4 (06:10→22:38)
[2021-03-16 06:13] LABS: BASO % 1.3 % (0-2.0); EOS % 3.9 % (0-4.5); HEMATOCRIT 18.8 % (35.4-49); LYMPH % 19.7 % (8-40); MCH 32.3 pg (25.7-33.7); MCHC 35.2 g/dl (32.0-35.9); MEAN CELL VOLUME 91.9 fl (80-96); MEAN PLT VOLUME 8.9 fl (7.5-11.1); MONO % 14.9 % (3.8-10.2); NEUT % 60.2 % (42.8-82.8); PLATELET COUNT 53 K/MM3 (134-434); RBC 2.04 M/mm3 (4.00-5.60); RDW 20.4 % (11.9-15.9); WHITE BLOOD COUNT 2.1 K/mm3 (4.0-10.0)
[2021-03-16 06:33] LABS: CHLORIDE 104 mmol/L (98-107); SODIUM 138 mmol/L (136-145)
[2021-03-16 06:35] LABS: ALBUMIN 2.5 g/dl (3.4-5.0); ANION GAP 8 MMOL/L (8-16); BLOOD UREA NITROGEN 46.3 mg/dL (7-18); CO2 27 mmol/L (21-32); GLUCOSE,RANDOM 80 mg/dL (74-106)
[2021-03-16 06:38] LABS: SGOT/AST 20 U/L (15-37); SGPT/ALT 18 U/L (13-61)
[2021-03-16 06:39] LABS: HEMOGLOBIN 6.6 GM/dL (11.7-16.9)
[2021-03-16 06:40] LABS: BILIRUBIN,TOTAL 0.8 mg/dL (0.2-1); TOT PROT 4.8 g/dl (6.4-8.2)
[2021-03-16 06:41] LABS: ALK PHOS 133 U/L (45-117)
[2021-03-16 06:52] LABS: CALCIUM 6.8 mg/dL (8.5-10.1); CREATININE 9.1 mg/dL (0.55-1.3)
[2021-03-16 07:10] LABS: INR 1.16 (0.83-1.09)
[2021-03-16 07:13] LABS: ACTIVATED PTT 26.2 SECONDS (25.2-36.5)
[2021-03-16] MEDS ORDERED: INSULIN (NOVOLOG) ASPART 100 UNITS/ML 10ML VIAL ONE (08:10)
[2021-03-16] MEDS: FUROSEMIDE 40 MG TABLET (FP) PO SCH (09:47)
[2021-03-16] MEDS: levETIRAcetam 500 MG TABLET (FP) PO SCH ×2 (09:48→22:37)
[2021-03-16] MEDS: MULTIVITAMINS (DAILY MVI) TABLET (FP) PO SCH (09:48)
[2021-03-16] MEDS: LISINOPRIL 10 MG TABLET PO SCH (09:48)
[2021-03-16] MEDS: LACTULOSE 20 GM/30 ML UDC (FOR ORAL USE ONLY) PO SCH ×2 (09:49→22:37)
[2021-03-16] MEDS: LIDOCAINE 5% TOPICAL PATCH TP SCH (09:51)
[2021-03-16] MEDS ORDERED: ACETAMINOPHEN 1000 MG/100 ML VIAL (NON FORMULARY) IVPB PRN (11:59)
[2021-03-16] MEDS ORDERED: EPOETIN ALFA-EPBX 20,000 UNIT/ML VIAL SQ ONE (12:45)
[2021-03-16] MEDS: CALCIUM CARBONATE 650 MG TABLET PO SCH ×3 (17:39→22:38)
[2021-03-16] MEDS ORDERED: PT OWN MED DRAWER 7, Y5N ONE ×2 (17:43→20:12)
[2021-03-16 20:51] LABS: HEMATOCRIT 34.2 % (35.4-49); HEMOGLOBIN 11.4 GM/dL (11.7-16.9); MCH 30.1 pg (25.7-33.7); MCHC 33.3 g/dl (32.0-35.9); MEAN CELL VOLUME 90.2 fl (80-96); MEAN PLT VOLUME 9.1 fl (7.5-11.1); PLATELET COUNT 45 K/MM3 (134-434); RDW 18.7 % (11.9-15.9)
[2021-03-16 21:14] LABS: WHITE BLOOD COUNT 1.9 K/mm3 (4.0-10.0)
[2021-03-16] MEDS ORDERED: LORazepam 1 MG TABLET PO ONE (23:15)
[2021-03-17] MEDS: INSULIN SLIDING SCALE (NOVOLOG) 1 VIAL SQ SCH ×4 (06:56→21:07)
[2021-03-17] MEDS: hydrALAZINE HCL 50 MG TABLET (FP) PO SCH ×3 (06:56→21:12)
[2021-03-17 08:27] LABS: BASO % 0.8 % (0-2.0); EOS % 4.4 % (0-4.5); HEMATOCRIT 26.5 % (35.4-49); HEMOGLOBIN 9.2 GM/dL (11.7-16.9); LYMPH % 12.3 % (8-40); MCH 31.7 pg (25.7-33.7); MCHC 34.9 g/dl (32.0-35.9); MEAN CELL VOLUME 90.7 fl (80-96); MEAN PLT VOLUME 9.3 fl (7.5-11.1); NEUT % 70.5 % (42.8-82.8); PLATELET COUNT 64 K/MM3 (134-434); RBC 2.92 M/mm3 (4.00-5.60); RDW 19.3 % (11.9-15.9); WHITE BLOOD COUNT 2.5 K/mm3 (4.0-10.0)
[2021-03-17 08:58] LABS: ALBUMIN 2.6 g/dl (3.4-5.0)
[2021-03-17 08:59] LABS: BLOOD UREA NITROGEN 21.8 mg/dL (7-18)
[2021-03-17 09:03] LABS: CREATININE 5.6 mg/dL (0.55-1.3); PHOSPHOROUS 3.3 mg/dL (2.5-4.9); TOT PROT 5.2 g/dl (6.4-8.2)
[2021-03-17 09:09] LABS: CALCIUM 8.1 mg/dL (8.5-10.1)
[2021-03-17] MEDS: LISINOPRIL 10 MG TABLET PO SCH (09:44)
[2021-03-17] MEDS: FUROSEMIDE 40 MG TABLET (FP) PO SCH (09:44)
[2021-03-17] MEDS: LACTULOSE 20 GM/30 ML UDC (FOR ORAL USE ONLY) PO SCH ×2 (09:44→21:12)
[2021-03-17] MEDS: levETIRAcetam 500 MG TABLET (FP) PO SCH ×2 (09:44→21:12)
[2021-03-17] MEDS: MULTIVITAMINS (DAILY MVI) TABLET (FP) PO SCH (09:44)
[2021-03-17] MEDS: LIDOCAINE 5% TOPICAL PATCH TP SCH (09:46)
[2021-03-17 14:09] LABS: BASO % 0.7 % (0-2.0); EOS % 3.2 % (0-4.5); HEMATOCRIT 25.1 % (35.4-49); HEMOGLOBIN 8.6 GM/dL (11.7-16.9); LYMPH % 9.2 % (8-40); MCH 31.5 pg (25.7-33.7); MCHC 34.3 g/dl (32.0-35.9); MEAN CELL VOLUME 91.7 fl (80-96); MEAN PLT VOLUME 9.1 fl (7.5-11.1); MONO % 14.4 % (3.8-10.2); NEUT % 72.5 % (42.8-82.8); PLATELET COUNT 59 K/MM3 (134-434); RBC 2.73 M/mm3 (4.00-5.60); RDW 19.3 % (11.9-15.9); WHITE BLOOD COUNT 2.6 K/mm3 (4.0-10.0)
[2021-03-17] MEDS ORDERED: ACETAMINOPHEN 1000 MG/100 ML VIAL (NON FORMULARY) IVPB PRN (16:47)
[2021-03-17] MEDS ORDERED: KETOROLAC TROMETHAMINE 10 MG TABLET PO ONE (16:48)
[2021-03-17] MEDS ORDERED: KETOROLAC TROMETHAMINE 10 MG TABLET PO PRN (16:48)
[2021-03-17] MEDS: ACETAMINOPHEN 1000 MG/100 ML VIAL (NON FORMULARY) IVPB PRN ×2 (17:37→23:49)
[2021-03-17] MEDS: SERTRALINE HCL 50 MG TABLET (FP) PO SCH (17:38)
[2021-03-17] MEDS: GABAPENTIN 300 MG CAPSULE PO SCH (21:12)
[2021-03-17] MEDS: LIDOCAINE PATCH REMOVAL MC SCH (21:14)
[2021-03-17] MEDS ORDERED: PROCHLORPERAZINE MALEATE 5 MG TABLET PO ONE (22:37)
[2021-03-17] MEDS ORDERED: PROCHLORPERAZINE INJECTION 10 MG/2 ML VIAL IM ONE (23:32)
[2021-03-18] MEDS: hydrALAZINE HCL 50 MG TABLET (FP) PO SCH ×3 (06:52→21:13)
[2021-03-18] MEDS: GABAPENTIN 300 MG CAPSULE PO SCH ×3 (06:52→21:13)
[2021-03-18] MEDS: INSULIN SLIDING SCALE (NOVOLOG) 1 VIAL SQ SCH ×4 (06:52→21:18)
[2021-03-18 07:33] LABS: BASO % 1.3 % (0-2.0); EOS % 4.5 % (0-4.5); HEMATOCRIT 26.8 % (35.4-49); HEMOGLOBIN 9.2 GM/dL (11.7-16.9); LYMPH % 12.7 % (8-40); MCH 31.9 pg (25.7-33.7); MCHC 34.4 g/dl (32.0-35.9); MEAN CELL VOLUME 92.6 fl (80-96); MEAN PLT VOLUME 9.4 fl (7.5-11.1); MONO % 11.8 % (3.8-10.2); NEUT % 69.7 % (42.8-82.8); PLATELET COUNT 67 K/MM3 (134-434); RDW 19.1 % (11.9-15.9); WHITE BLOOD COUNT 3.1 K/mm3 (4.0-10.0)
[2021-03-18 08:01] LABS: ALBUMIN 2.7 g/dl (3.4-5.0); CALCIUM 7.7 mg/dL (8.5-10.1)
[2021-03-18 08:06] LABS: TOT PROT 5.4 g/dl (6.4-8.2)
[2021-03-18] MEDS ORDERED: SODIUM CHLORIDE 250 ML IV PRN (08:46)
[2021-03-18] MEDS ORDERED: EPOETIN ALFA-EPBX 20,000 UNIT/ML VIAL SQ ONE (09:00)
[2021-03-18] MEDS: levETIRAcetam 500 MG TABLET (FP) PO SCH ×3 (11:30→21:13)
[2021-03-18] MEDS: LACTULOSE 20 GM/30 ML UDC (FOR ORAL USE ONLY) PO SCH ×3 (11:30→21:13)
[2021-03-18] MEDS: FUROSEMIDE 40 MG TABLET (FP) PO SCH ×2 (11:30→14:16)
[2021-03-18] MEDS: LISINOPRIL 10 MG TABLET PO SCH ×2 (11:31→14:17)
[2021-03-18] MEDS: MULTIVITAMINS (DAILY MVI) TABLET (FP) PO SCH ×2 (11:31→14:15)
[2021-03-18] MEDS: LIDOCAINE 5% TOPICAL PATCH TP SCH ×2 (11:31→14:16)
[2021-03-18] MEDS: SERTRALINE HCL 50 MG TABLET (FP) PO SCH ×2 (11:31→14:17)
[2021-03-18] MEDS ORDERED: MELATONIN 5 MG TABLETS PO ONE (20:07)
[2021-03-18] MEDS: LIDOCAINE PATCH REMOVAL MC SCH (21:14)
[2021-03-19] MEDS ORDERED: ACETAMINOPHEN 1000 MG/100 ML VIAL (NON FORMULARY) IVPB ONE ×2 (05:35→16:34)
[2021-03-19] MEDS ORDERED: PT OWN MED DRAWER 7, Y5N ONE (05:49)
[2021-03-19] MEDS: hydrALAZINE HCL 50 MG TABLET (FP) PO SCH ×3 (06:14→21:07)
[2021-03-19] MEDS: GABAPENTIN 300 MG CAPSULE PO SCH ×3 (06:14→21:08)
[2021-03-19] MEDS: INSULIN SLIDING SCALE (NOVOLOG) 1 VIAL SQ SCH ×4 (06:27→21:12)
[2021-03-19 07:48] LABS: BASO % 1.4 % (0-2.0); EOS % 4.4 % (0-4.5); HEMATOCRIT 28.2 % (35.4-49); HEMOGLOBIN 9.6 GM/dL (11.7-16.9); LYMPH % 15.2 % (8-40); MCH 31.4 pg (25.7-33.7); MCHC 33.9 g/dl (32.0-35.9); MEAN CELL VOLUME 92.7 fl (80-96); MEAN PLT VOLUME 9.5 fl (7.5-11.1); MONO % 14.8 % (3.8-10.2); NEUT % 64.2 % (42.8-82.8); PLATELET COUNT 83 K/MM3 (134-434); RBC 3.04 M/mm3 (4.00-5.60); RDW 18.5 % (11.9-15.9); WHITE BLOOD COUNT 3.5 K/mm3 (4.0-10.0)
[2021-03-19 08:13] LABS: ALBUMIN 2.8 g/dl (3.4-5.0); BLOOD UREA NITROGEN 17.1 mg/dL (7-18); CALCIUM 7.9 mg/dL (8.5-10.1); MAGNESIUM 1.5 mg/dL (1.8-2.4)
[2021-03-19 08:16] LABS: CREATININE 4.9 mg/dL (0.55-1.3); PHOSPHOROUS 1.9 mg/dL (2.5-4.9)
[2021-03-19 08:18] LABS: TOT PROT 5.6 g/dl (6.4-8.2)
[2021-03-19] MEDS: LISINOPRIL 10 MG TABLET PO SCH (09:05)
[2021-03-19] MEDS: MULTIVITAMINS (DAILY MVI) TABLET (FP) PO SCH (09:05)
[2021-03-19] MEDS: SERTRALINE HCL 50 MG TABLET (FP) PO SCH (09:05)
[2021-03-19] MEDS: FUROSEMIDE 40 MG TABLET (FP) PO SCH (09:05)
[2021-03-19] MEDS: levETIRAcetam 500 MG TABLET (FP) PO SCH ×2 (09:06→21:07)
[2021-03-19] MEDS: LACTULOSE 20 GM/30 ML UDC (FOR ORAL USE ONLY) PO SCH ×2 (09:06→21:08)
[2021-03-19] MEDS: LIDOCAINE 5% TOPICAL PATCH TP SCH (09:06)
[2021-03-19] MEDS ORDERED: MAGNESIUM SULF 50% (8.12 MEQ/2 ML-1 GM VIAL) IVPB ONE (09:06)
[2021-03-19] MEDS ORDERED: CALCIUM CARBONATE 650 MG TABLET PO SCH ×2 (09:15)
[2021-03-19] MEDS ORDERED: MIDAZOLAM HCL 2 MG/2 ML SINGLE DOSE VIAL ONE (10:11)
[2021-03-19 11:06] LABS: PLATELET ESTIMATE DECREASED
[2021-03-19] MEDS ORDERED: SODIUM CHLORIDE 250 ML IV PRN (12:44)
[2021-03-19] MEDS: LIDOCAINE PATCH REMOVAL MC SCH (21:08)
[2021-03-19] MEDS: ACETAMINOPHEN 500 MG TABLET (FP) PO PRN (21:08)
[2021-03-19] MEDS ORDERED: LIDOCAINE 5% TOPICAL PATCH TP ONE (22:15)
[2021-03-20] MEDS: ACETAMINOPHEN 500 MG TABLET (FP) PO PRN ×2 (04:48→14:09)
[2021-03-20] MEDS: GABAPENTIN 300 MG CAPSULE PO SCH ×3 (05:01→21:03)
[2021-03-20] MEDS: hydrALAZINE HCL 50 MG TABLET (FP) PO SCH ×3 (05:01→21:03)
[2021-03-20] MEDS: INSULIN SLIDING SCALE (NOVOLOG) 1 VIAL SQ SCH ×4 (06:09→21:10)
[2021-03-20 08:08] LABS: BASO % 0.4 % (0-2.0); EOS % 2.1 % (0-4.5); HEMATOCRIT 25.5 % (35.4-49); HEMOGLOBIN 8.4 GM/dL (11.7-16.9); LYMPH % 10.3 % (8-40); MCHC 32.8 g/dl (32.0-35.9); MEAN CELL VOLUME 94.4 fl (80-96); MEAN PLT VOLUME 9.9 fl (7.5-11.1); MONO % 17.8 % (3.8-10.2); NEUT % 69.4 % (42.8-82.8); PLATELET COUNT 56 K/MM3 (134-434); RDW 19.2 % (11.9-15.9)
[2021-03-20] MEDS ORDERED: EPOETIN ALFA-EPBX 20,000 UNIT/ML VIAL SQ ONE (08:15)
[2021-03-20 08:29] LABS: WHITE BLOOD COUNT 1.7 K/mm3 (4.0-10.0)
[2021-03-20 09:24] LABS: CALCIUM 7.9 mg/dL (8.5-10.1)
[2021-03-20 09:25] LABS: ALBUMIN 2.6 g/dl (3.4-5.0); BLOOD UREA NITROGEN 26.5 mg/dL (7-18)
[2021-03-20 09:28] LABS: CREATININE 6.4 mg/dL (0.55-1.3)
[2021-03-20 09:29] LABS: BILIRUBIN,TOTAL 0.8 mg/dL (0.2-1); TOT PROT 5.2 g/dl (6.4-8.2)
[2021-03-20 10:04] LABS: ANISOCYTOSIS 1+; MACROCYTOSIS 1+; PLATELET ESTIMATE DECREASED
[2021-03-20] MEDS ORDERED: LIDOCAINE PATCH REMOVAL MC SCH (10:15)
[2021-03-20] MEDS: LISINOPRIL 10 MG TABLET PO SCH (14:08)
[2021-03-20] MEDS: SERTRALINE HCL 50 MG TABLET (FP) PO SCH (14:08)
[2021-03-20] MEDS: MULTIVITAMINS (DAILY MVI) TABLET (FP) PO SCH (14:08)
[2021-03-20] MEDS: FUROSEMIDE 40 MG TABLET (FP) PO SCH (14:09)
[2021-03-20] MEDS: LIDOCAINE 5% TOPICAL PATCH TP SCH (14:11)
[2021-03-20] MEDS: LACTULOSE 20 GM/30 ML UDC (FOR ORAL USE ONLY) PO SCH ×2 (14:13→21:03)
[2021-03-20] MEDS: levETIRAcetam 500 MG TABLET (FP) PO SCH ×2 (14:13→21:03)
[2021-03-20] MEDS: METHYL SALICYLATE/MENTHOL OINT 30 GM TUBE TP SCH (14:14)
[2021-03-20 16:13] LABS: EPI CELLS 6 /uL (0-25.1); HYALINE CASTS 0 /uL (0-3.1); PH,URINE 8.5 (5.0-8.0); URINE APPEARANCE CLEAR; URINE BACTERIA 7 /uL (0-1359); URINE BILIRUBIN NEGATIVE (NEGATIVE); URINE COLOR YELLOW; URINE GLUCOSE (UA) NEGATIVE (NEGATIVE); URINE KETONE NEGATIVE (NEGATIVE); URINE LEUK ESTERASE NEGATIVE (NEGATIVE); URINE NITRITE NEGATIVE (NEGATIVE); URINE PROTEIN 4+ (NEGATIVE); URINE RBC 12 /uL (0-23.9); URINE WBC 4 /uL (0-25.8)
[2021-03-20 16:21] LABS: URINE BARBITURATES NEGATIVE ng/ml (CUTOFF=200)
[2021-03-20 16:22] LABS: COCAINE, UR NEGATIVE ng/ml (CUTOFF=300); METHADONE, UR NEGATIVE ng/ml (CUTOFF=300); OPIATES, URI NEGATIVE ng/ml (CUTOFF=300); PHENCYCLIDINE,URINE NEGATIVE ng/ml (CUTOFF=25)
[2021-03-20 16:23] LABS: URINE AMPHETAMINES NEGATIVE ng/ml (CUTOFF=500)
[2021-03-20 16:30] LABS: URINE BENZODIAZEPINES POSITIVE ng/ml (CUTOFF=200)
[2021-03-20] MEDS ORDERED: ACETAMINOPHEN 1000 MG/100 ML VIAL (NON FORMULARY) IVPB ONE (20:37)
[2021-03-20] MEDS: LIDOCAINE PATCH REMOVAL MC SCH (21:11)
[2021-03-21] MEDS: hydrALAZINE HCL 50 MG TABLET (FP) PO SCH ×3 (06:47→21:07)
[2021-03-21] MEDS: GABAPENTIN 300 MG CAPSULE PO SCH ×3 (06:47→21:07)
[2021-03-21] MEDS: INSULIN SLIDING SCALE (NOVOLOG) 1 VIAL SQ SCH ×4 (06:50→21:31)
[2021-03-21 08:38] LABS: BASO % 2.7 % (0-2.0); EOS % 4.8 % (0-4.5); HEMATOCRIT 28.2 % (35.4-49); HEMOGLOBIN 9.6 GM/dL (11.7-16.9); LYMPH % 14.7 % (8-40); MCH 31.6 pg (25.7-33.7); MEAN CELL VOLUME 92.8 fl (80-96); MEAN PLT VOLUME 10.3 fl (7.5-11.1); MONO % 19.3 % (3.8-10.2); NEUT % 58.5 % (42.8-82.8); PLATELET COUNT 68 K/MM3 (134-434); RBC 3.03 M/mm3 (4.00-5.60); RDW 18.9 % (11.9-15.9); WHITE BLOOD COUNT 2.2 K/mm3 (4.0-10.0)
[2021-03-21 08:54] LABS: ALBUMIN 2.7 g/dl (3.4-5.0); CALCIUM 7.8 mg/dL (8.5-10.1); MAGNESIUM 1.8 mg/dL (1.8-2.4)
[2021-03-21 08:57] LABS: CREATININE 5.1 mg/dL (0.55-1.3)
[2021-03-21 08:58] LABS: PHOSPHOROUS 1.4 mg/dL (2.5-4.9)
[2021-03-21 08:59] LABS: TOT PROT 5.7 g/dl (6.4-8.2)
[2021-03-21] MEDS: LIDOCAINE 5% TOPICAL PATCH TP SCH (09:14)
[2021-03-21] MEDS: METHYL SALICYLATE/MENTHOL OINT 30 GM TUBE TP SCH ×2 (09:14→19:21)
[2021-03-21] MEDS: SERTRALINE HCL 50 MG TABLET (FP) PO SCH (09:16)
[2021-03-21] MEDS: FUROSEMIDE 40 MG TABLET (FP) PO SCH (09:16)
[2021-03-21] MEDS: MULTIVITAMINS (DAILY MVI) TABLET (FP) PO SCH (09:16)
[2021-03-21] MEDS: LACTULOSE 20 GM/30 ML UDC (FOR ORAL USE ONLY) PO SCH ×2 (09:16→21:07)
[2021-03-21] MEDS: LISINOPRIL 10 MG TABLET PO SCH (09:16)
[2021-03-21] MEDS: levETIRAcetam 500 MG TABLET (FP) PO SCH ×2 (09:16→21:07)
[2021-03-21 10:11] LABS: ANISOCYTOSIS 1+; MACROCYTOSIS 0; PLATELET ESTIMATE DECREASED
[2021-03-21] MEDS ORDERED: NAPH,MB-DB/K PH,MBDB POWDER PACKET PO ONE (12:00)
[2021-03-21] MEDS ORDERED: WATER IVPB SCH ×2 (15:30→18:00)
[2021-03-21] MEDS ORDERED: CEFEPIME IVPB SCH ×2 (15:30→18:00)
[2021-03-21] MEDS ORDERED: DEXTROSE 5% IVPB SCH ×2 (15:30→18:00)
[2021-03-21] MEDS ORDERED: ACETAMINOPHEN 1000 MG/100 ML VIAL (NON FORMULARY) IVPB ONE (15:47)
[2021-03-21] MEDS ORDERED: DEXTROSE 5%-WATER 100 ML IVPB ONE ×2 (15:50→21:00)
[2021-03-21] MEDS ORDERED: CEFEPIME HCL 1 GM VIAL (RESTRICTED TO ID) ONE (15:50)
[2021-03-21] MEDS ORDERED: MEROPENEM 500 MG VIAL (RESTRICTED TO ID) IVPB ONE (21:00)
[2021-03-21] MEDS: MEROPENEM 500 MG in DEXTROSE 5%-WATER 100 ML IVPB SCH (21:07)
[2021-03-21] MEDS: LIDOCAINE PATCH REMOVAL MC SCH (21:08)
[2021-03-22] MEDS ORDERED: MEROPENEM 500 MG VIAL (RESTRICTED TO ID) IVPB ONE (00:13)
[2021-03-22] MEDS ORDERED: DEXTROSE 5%-WATER 100 ML IVPB ONE ×2 (00:13→09:55)
[2021-03-22] MEDS: MEROPENEM 500 MG in DEXTROSE 5%-WATER 100 ML IVPB SCH (00:59)
[2021-03-22] MEDS: ACETAMINOPHEN 500 MG TABLET (FP) PO PRN (01:33)
[2021-03-22] MEDS: hydrALAZINE HCL 50 MG TABLET (FP) PO SCH ×3 (05:46→21:06)
[2021-03-22] MEDS: GABAPENTIN 300 MG CAPSULE PO SCH ×3 (05:46→21:05)
[2021-03-22] MEDS: INSULIN SLIDING SCALE (NOVOLOG) 1 VIAL SQ SCH ×4 (06:03→21:11)
[2021-03-22] MEDS ORDERED: CEFEPIME 1 GM in DEXTROSE 5%-WATER 1 GM/100 ML BAG IVPB SCH (08:00)
[2021-03-22 08:25] LABS: HEMATOCRIT 26.3 % (35.4-49); HEMOGLOBIN 8.9 GM/dL (11.7-16.9); LYMPH % 16.3 % (8-40); MCH 31.6 pg (25.7-33.7); MCHC 33.8 g/dl (32.0-35.9); MEAN CELL VOLUME 93.7 fl (80-96); MONO % 21.1 % (3.8-10.2); NEUT % 55.6 % (42.8-82.8); PLATELET COUNT 66 K/MM3 (134-434); RDW 19.7 % (11.9-15.9); WHITE BLOOD COUNT 2.8 K/mm3 (4.0-10.0)
[2021-03-22 08:51] LABS: ALBUMIN 2.4 g/dl (3.4-5.0); CALCIUM 7.6 mg/dL (8.5-10.1)
[2021-03-22 08:52] LABS: BLOOD UREA NITROGEN 32.9 mg/dL (7-18); MAGNESIUM 1.9 mg/dL (1.8-2.4)
[2021-03-22 08:54] LABS: CREATININE 6.4 mg/dL (0.55-1.3)
[2021-03-22] MEDS ORDERED: CEFEPIME HCL 1 GM VIAL (RESTRICTED TO ID) ONE (09:55)
[2021-03-22] MEDS: METHYL SALICYLATE/MENTHOL OINT 30 GM TUBE TP SCH (10:23)
[2021-03-22] MEDS: levETIRAcetam 500 MG TABLET (FP) PO SCH ×2 (10:24→21:05)
[2021-03-22] MEDS: MULTIVITAMINS (DAILY MVI) TABLET (FP) PO SCH (10:24)
[2021-03-22] MEDS: LACTULOSE 20 GM/30 ML UDC (FOR ORAL USE ONLY) PO SCH ×2 (10:24→21:05)
[2021-03-22] MEDS: SERTRALINE HCL 50 MG TABLET (FP) PO SCH (10:24)
[2021-03-22] MEDS: LIDOCAINE 5% TOPICAL PATCH TP SCH (10:24)
[2021-03-22] MEDS: FUROSEMIDE 40 MG TABLET (FP) PO SCH (10:25)
[2021-03-22] MEDS: LISINOPRIL 10 MG TABLET PO SCH (10:25)
[2021-03-22] MEDS ORDERED: ALPRAZolam 0.25 MG TABLET PO ONE (10:31)
[2021-03-22] MEDS: ACETAMINOPHEN 1000 MG/100 ML VIAL (NON FORMULARY) IVPB PRN ×2 (11:37→18:41)
[2021-03-22 13:31] LABS: ANISOCYTOSIS 1+; MACROCYTOSIS 1+; OVALOCYTE 1+; PLATELET ESTIMATE DECREASED; TARGET CELLS 1+
[2021-03-22] MEDS ORDERED: SODIUM CHLORIDE 250 ML IV PRN (16:05)
[2021-03-22] MEDS ORDERED: MEROPENEM 500 MG in DEXTROSE 5%-WATER 100 ML IVPB SCH (18:00)
[2021-03-22] MEDS: LIDOCAINE PATCH REMOVAL MC SCH (21:10)
[2021-03-23] MEDS ORDERED: HYDROCORTISONE 1% TOPICAL CREAM 30 GM TUBE TP PRN (02:43)
[2021-03-23] MEDS: GABAPENTIN 300 MG CAPSULE PO SCH ×2 (06:26→14:33)
[2021-03-23] MEDS: hydrALAZINE HCL 50 MG TABLET (FP) PO SCH ×2 (06:26→14:33)
[2021-03-23] MEDS: INSULIN SLIDING SCALE (NOVOLOG) 1 VIAL SQ SCH ×2 (06:32→11:27)
[2021-03-23] MEDS ORDERED: CEFEPIME HCL 1 GM VIAL (RESTRICTED TO ID) ONE (08:33)
[2021-03-23] MEDS ORDERED: DEXTROSE 5%-WATER 100 ML IVPB ONE (08:33)
[2021-03-23] MEDS: METHYL SALICYLATE/MENTHOL OINT 30 GM TUBE TP SCH (09:09)
[2021-03-23] MEDS: FUROSEMIDE 40 MG TABLET (FP) PO SCH (09:09)
[2021-03-23] MEDS: SERTRALINE HCL 50 MG TABLET (FP) PO SCH (09:09)
[2021-03-23] MEDS: MULTIVITAMINS (DAILY MVI) TABLET (FP) PO SCH (09:09)
[2021-03-23] MEDS: levETIRAcetam 500 MG TABLET (FP) PO SCH (09:09)
[2021-03-23] MEDS: LIDOCAINE 5% TOPICAL PATCH TP SCH (09:09)
[2021-03-23] MEDS: LISINOPRIL 10 MG TABLET PO SCH (09:09)
[2021-03-23] MEDS: LACTULOSE 20 GM/30 ML UDC (FOR ORAL USE ONLY) PO SCH (09:09)
[2021-03-23] MEDS ORDERED: EPOETIN ALFA-EPBX 10,000 UNIT/ML VIAL SQ ONE (10:45)
[2021-03-23 11:06] LABS: BASO % 1.5 % (0-2.0); EOS % 6.3 % (0-4.5); HEMOGLOBIN 9.4 GM/dL (11.7-16.9); LYMPH % 15.3 % (8-40); MCHC 33.5 g/dl (32.0-35.9); MEAN CELL VOLUME 92.6 fl (80-96); MEAN PLT VOLUME 9.5 fl (7.5-11.1); MONO % 14.6 % (3.8-10.2); NEUT % 62.3 % (42.8-82.8); PLATELET COUNT 68 K/MM3 (134-434); RBC 3.03 M/mm3 (4.00-5.60); RDW 19.4 % (11.9-15.9); WHITE BLOOD COUNT 3.1 K/mm3 (4.0-10.0)
[2021-03-23 11:25] LABS: ALBUMIN 2.5 g/dl (3.4-5.0); BLOOD UREA NITROGEN 43.9 mg/dL (7-18); CALCIUM 7.8 mg/dL (8.5-10.1); MAGNESIUM 2.1 mg/dL (1.8-2.4)
[2021-03-23 11:28] LABS: CREATININE 7.1 mg/dL (0.55-1.3); PHOSPHOROUS 3.3 mg/dL (2.5-4.9)
[2021-03-23 11:30] LABS: TOT PROT 5.3 g/dl (6.4-8.2)
[2021-03-23] MEDS ORDERED: CEFEPIME 1 GM in DEXTROSE 5%-WATER 1 GM/100 ML BAG IVPB SCH (12:00)
[2021-03-23 14:17] VITALS: BP 146/81; PULSE 85; TEMP 97.8
== END 2021-03-23 15:32 | disposition home or self-care (01) | DRG 808 ==
LOC: JER 21:50 → JERBED 22:34 → J7W 03-15 00:44
PROVIDERS: ADMIT Hospitalist; ATTEND Student in an Organized Health Care Education/Training Program
PROC: 30233N1 Transfusion of Nonautologous Red Blood Cells into Peripheral Vein, Percutaneous Approach (ICD-10-PCS; 2021-03-16)
PROC: 07DR3ZX Extraction of Iliac Bone Marrow, Percutaneous Approach, Diagnostic (ICD-10-PCS; principal; 2021-03-19)
PROC: 5A1D70Z Performance of Urinary Filtration, Intermittent, Less than 6 Hours Per Day (ICD-10-PCS; 2021-03-23)
DX: D61.818 Other pancytopenia (principal); N18.6 End stage renal disease; J18.9 Pneumonia, unspecified organism; I13.2 Hypertensive heart and chronic kidney disease with heart failure and with stage 5 chronic kidney disease, or end stage renal disease; D68.9 Coagulation defect, unspecified; I12.0 Hypertensive chronic kidney disease with stage 5 chronic kidney disease or end stage renal disease; I50.32 Chronic diastolic (congestive) heart failure; D63.1 Anemia in chronic kidney disease; E78.5 Hyperlipidemia, unspecified; E11.22 Type 2 diabetes mellitus with diabetic chronic kidney disease; E11.40 Type 2 diabetes mellitus with diabetic neuropathy, unspecified; Z99.2 Dependence on renal dialysis; Z91.14 Patient's other noncompliance with medication regimen; Z91.15 Patient's noncompliance with renal dialysis; R42 Dizziness and giddiness; F41.8 Other specified anxiety disorders; K74.60 Unspecified cirrhosis of liver; M54.9 Dorsalgia, unspecified; D70.9 Neutropenia, unspecified; R50.81 Fever presenting with conditions classified elsewhere; M41.9 Scoliosis, unspecified
CPT/HCPCS: 20225; 36415; 36430; 71045-TC-FY; 80048; 80053; 80076; 80307; 81003; 82607; 82728; 82746; 82962; 83010; 83036; 83540; 83550; 83615; 83735; 84100; 84439; 84466; 84484; 85025; 85027; 85045; 85610; 85730; 86850; 86900; 86901; 86922; 87040; 87086; 87529; 93306-TC; 99285-25; J0131; P9058; Q5106

== ENCOUNTER 2021-04-13 11:05 | Inpatient (IN) | payer OTHER ==
[2021-04-13 11:17] VITALS: BMI 28.0
[2021-04-13] MEDS ORDERED: MAGNESIUM SULF 50% (8.12 MEQ/2 ML-1 GM VIAL) IVPB ONE (13:59)
[2021-04-13] MEDS ORDERED: CALCIUM CHLORIDE 10% 1 GM/10 ML *VIAL IVPB ONE (13:59)
[2021-04-13 14:16] LABS: BASO % 1.4 % (0-2.0); EOS % 3.7 % (0-4.5); HEMATOCRIT 31.3 % (35.4-49); HEMOGLOBIN 10.8 GM/dL (11.7-16.9); LYMPH % 20.6 % (8-40); MCH 31.1 pg (25.7-33.7); MCHC 34.4 g/dl (32.0-35.9); MEAN CELL VOLUME 90.5 fl (80-96); MEAN PLT VOLUME 9.3 fl (7.5-11.1); MONO % 4.7 % (3.8-10.2); NEUT % 69.6 % (42.8-82.8); PLATELET COUNT 76 K/MM3 (134-434); RBC 3.46 M/mm3 (4.00-5.60); RDW 17.4 % (11.9-15.9); WHITE BLOOD COUNT 4.1 K/mm3 (4.0-10.0)
[2021-04-13 14:21] LABS: INR 1.14 (0.83-1.09)
[2021-04-13] MEDS ORDERED: CALCIUM CHLORIDE 1 GM/10 ML *DISP.SYRIN ONE (14:40)
[2021-04-13] MEDS ORDERED: MAGNESIUM 1GM/D5W - 1 GM/100 ML IVPB IVPB ONE (14:40)
[2021-04-13 14:41] LABS: CHLORIDE 106 mmol/L (98-107); SODIUM 137 mmol/L (136-145)
[2021-04-13 14:45] LABS: ALBUMIN 3.6 g/dl (3.4-5.0); ANION GAP 17 MMOL/L (8-16); BLOOD UREA NITROGEN 100.8 mg/dL (7-18); CALCIUM 7.4 mg/dL (8.5-10.1); CO2 14 mmol/L (21-32); GLUCOSE,RANDOM 83 mg/dL (74-106); LIPASE 305 U/L (73-393)
[2021-04-13 14:48] LABS: SGOT/AST 26 U/L (15-37); SGPT/ALT 11 U/L (13-61)
[2021-04-13 14:50] LABS: ALK PHOS 112 U/L (45-117); TOT PROT 7.3 g/dl (6.4-8.2)
[2021-04-13 15:15] LABS: CREATININE 16.7 mg/dL (0.55-1.3)
[2021-04-13] MEDS ORDERED: LORazepam 2 MG TABLET PO SCH (17:00)
[2021-04-13] MEDS ORDERED: EPOETIN ALFA-EPBX 3,000 UNIT/ML VIAL SQ ONE (17:01)
[2021-04-13] MEDS ORDERED: SODIUM CHLORIDE 250 ML IV PRN (17:01)
[2021-04-13] MEDS ORDERED: LORazepam 1 MG TABLET PO PRN (17:29)
[2021-04-13] MEDS ORDERED: FOLIC ACID 1 MG TABLET (FP) PO ONE (17:30)
[2021-04-13] MEDS: levETIRAcetam 500 MG TABLET (FP) PO SCH (22:59)
[2021-04-13] MEDS: hydrALAZINE HCL 50 MG TABLET (FP) PO SCH (22:59)
[2021-04-13] MEDS: LORazepam 1 MG TABLET PO SCH (22:59)
[2021-04-13] MEDS: HEPARIN NA (PORCINE) 5,000 UNITS/ML 1ML VIAL SQ SCH (23:00)
[2021-04-14] MEDS: PANTOPRAZOLE 40 MG TABLET PO SCH (06:12)
[2021-04-14] MEDS: hydrALAZINE HCL 50 MG TABLET (FP) PO SCH ×3 (06:13→21:41)
[2021-04-14] MEDS: HEPARIN NA (PORCINE) 5,000 UNITS/ML 1ML VIAL SQ SCH ×4 (06:13→21:42)
[2021-04-14] MEDS: LORazepam 1 MG TABLET PO SCH ×5 (06:13→22:47)
[2021-04-14 07:36] LABS: HEMATOCRIT 26.6 % (35.4-49); MCHC 33.8 g/dl (32.0-35.9); MEAN CELL VOLUME 91.6 fl (80-96); MEAN PLT VOLUME 11.1 fl (7.5-11.1); PLATELET COUNT 47 K/MM3 (134-434); RDW 16.7 % (11.9-15.9); WHITE BLOOD COUNT 3.4 K/mm3 (4.0-10.0)
[2021-04-14 07:56] LABS: CHLORIDE 105 mmol/L (98-107); SODIUM 139 mmol/L (136-145)
[2021-04-14 07:57] LABS: CALCIUM 7.7 mg/dL (8.5-10.1)
[2021-04-14 07:58] LABS: ANION GAP 14 MMOL/L (8-16); CO2 19 mmol/L (21-32); GLUCOSE,RANDOM 81 mg/dL (74-106); MAGNESIUM 2.1 mg/dL (1.8-2.4)
[2021-04-14 08:01] LABS: CHOLESTEROL 118 mg/dL (50-200); PHOSPHOROUS 7.1 mg/dL (2.5-4.9); TRIGLYCERIDES 179 mg/dL (0-150)
[2021-04-14 08:02] LABS: LDL CHOLESTEROL (ONLY SJRH) 50 mg/dL (5-100)
[2021-04-14 08:04] LABS: HDL CHOLESTEROL 42 mg/dL (40-60)
[2021-04-14] MEDS ORDERED: SODIUM CHLORIDE 250 ML IV PRN (08:14)
[2021-04-14 08:15] LABS: BLOOD UREA NITROGEN 68.8 mg/dL (7-18); CREATININE 11.9 mg/dL (0.55-1.3)
[2021-04-14] MEDS ORDERED: LACTULOSE 20 GM/30 ML UDC (FOR ORAL USE ONLY) PO SCH (10:00)
[2021-04-14] MEDS ORDERED: EPOETIN ALFA-EPBX 4,000 UNIT/ML VIAL IVPUSH ONE (11:00)
[2021-04-14] MEDS: SEVELAMER CARBONATE 800 MG TAB (FP) PO SCH ×3 (13:32→18:45)
[2021-04-14] MEDS: MULTIVITAMINS (DAILY MVI) TABLET (FP) PO SCH (13:32)
[2021-04-14] MEDS: levETIRAcetam 500 MG TABLET (FP) PO SCH ×2 (13:32→21:41)
[2021-04-14] MEDS: LACTULOSE 20 GM/30 ML UDC (FOR ORAL USE ONLY) PO SCH ×2 (13:32→21:41)
[2021-04-14] MEDS: THIAMINE HCL 100 MG TABLET (FP) PO SCH (13:32)
[2021-04-14] MEDS ORDERED: NADOLOL 40 MG TABLET (FP) PO SCH ×2 (13:45→14:15)
[2021-04-14] MEDS ORDERED: hydrALAZINE HCL 50 MG TABLET (FP) PO ONE (15:50)
[2021-04-14] MEDS ORDERED: PT OWN MED DRAWER 7, Y5N ONE ×3 (16:12→21:29)
[2021-04-14] MEDS: NIFEdipine E.R. 30 MG TABLET PO SCH (16:14)
[2021-04-14] MEDS: RIFAXIMIN 550 MG TABLET (UD) PO SCH (21:41)
[2021-04-14] MEDS: ACETAMINOPHEN 325 MG TABLET (FP) PO PRN (22:48)
[2021-04-15] MEDS: PANTOPRAZOLE 40 MG TABLET PO SCH (06:44)
[2021-04-15] MEDS: LACTULOSE 20 GM/30 ML UDC (FOR ORAL USE ONLY) PO SCH ×2 (06:44→22:00)
[2021-04-15] MEDS: HEPARIN NA (PORCINE) 5,000 UNITS/ML 1ML VIAL SQ SCH ×3 (06:44→21:59)
[2021-04-15] MEDS: LORazepam 1 MG TABLET PO SCH ×4 (06:44→22:00)
[2021-04-15] MEDS: hydrALAZINE HCL 50 MG TABLET (FP) PO SCH ×3 (06:44→22:00)
[2021-04-15] MEDS: SEVELAMER CARBONATE 800 MG TAB (FP) PO SCH ×3 (09:27→17:14)
[2021-04-15] MEDS: ACETAMINOPHEN 325 MG TABLET (FP) PO PRN ×2 (09:37→22:01)
[2021-04-15] MEDS: RIFAXIMIN 550 MG TABLET (UD) PO SCH ×2 (09:39→22:02)
[2021-04-15] MEDS: levETIRAcetam 500 MG TABLET (FP) PO SCH ×2 (09:39→22:00)
[2021-04-15] MEDS: THIAMINE HCL 100 MG TABLET (FP) PO SCH (09:40)
[2021-04-15] MEDS: MULTIVITAMINS (DAILY MVI) TABLET (FP) PO SCH (09:40)
[2021-04-15] MEDS: NIFEdipine E.R. 30 MG TABLET PO SCH ×2 (09:40→11:25)
[2021-04-15] MEDS ORDERED: SODIUM CHLORIDE 250 ML IV PRN (09:54)
[2021-04-15 11:01] LABS: BASO % 0.4 % (0-2.0); EOS % 5.9 % (0-4.5); HEMATOCRIT 26.1 % (35.4-49); HEMOGLOBIN 8.9 GM/dL (11.7-16.9); LYMPH % 6.8 % (8-40); MCHC 34.1 g/dl (32.0-35.9); MEAN CELL VOLUME 90.9 fl (80-96); MEAN PLT VOLUME 10.3 fl (7.5-11.1); MONO % 11.7 % (3.8-10.2); NEUT % 75.2 % (42.8-82.8); PLATELET COUNT 44 K/MM3 (134-434); RBC 2.87 M/mm3 (4.00-5.60); RDW 16.5 % (11.9-15.9)
[2021-04-15 11:08] LABS: INR 1.25 (0.83-1.09); PROTHROMBIN TIME (PATIENT) 15.3 SEC (9.7-13.0)
[2021-04-15 11:30] LABS: CHLORIDE 99 mmol/L (98-107); SODIUM 136 mmol/L (136-145)
[2021-04-15 11:32] LABS: ALBUMIN 2.9 g/dl (3.4-5.0); ANION GAP 10 MMOL/L (8-16); CALCIUM 7.5 mg/dL (8.5-10.1); CO2 27 mmol/L (21-32)
[2021-04-15 11:33] LABS: GLUCOSE,RANDOM 112 mg/dL (74-106)
[2021-04-15 11:35] LABS: SGOT/AST 25 U/L (15-37); SGPT/ALT 10 U/L (13-61)
[2021-04-15 11:36] LABS: PHOSPHOROUS 4.7 mg/dL (2.5-4.9)
[2021-04-15 11:37] LABS: BILIRUBIN,TOTAL 1.6 mg/dL (0.2-1); IRON SERUM 136 ug/dL (50-175); TOT PROT 5.8 g/dl (6.4-8.2); TOTAL IRON BINDING CAPACITY 210 ug/dL (250-450)
[2021-04-15 11:38] LABS: ALK PHOS 112 U/L (45-117)
[2021-04-15 11:43] LABS: BLOOD UREA NITROGEN 38.3 mg/dL (7-18); CREATININE 8.4 mg/dL (0.55-1.3)
[2021-04-15] MEDS ORDERED: PT OWN MED DRAWER 7, Y5N ONE (21:58)
[2021-04-16] MEDS ORDERED: LORazepam 0.5 MG TABLET PO PRN
[2021-04-16] MEDS ORDERED: ACETAMINOPHEN 1000 MG/100 ML VIAL (NON FORMULARY) IVPB ONE (04:00)
[2021-04-16] MEDS: LORazepam 0.5 MG TABLET PO SCH ×3 (06:05→17:43)
[2021-04-16] MEDS: PANTOPRAZOLE 40 MG TABLET PO SCH (06:05)
[2021-04-16] MEDS: hydrALAZINE HCL 50 MG TABLET (FP) PO SCH ×2 (06:05→15:53)
[2021-04-16] MEDS: SEVELAMER CARBONATE 800 MG TAB (FP) PO SCH ×3 (08:14→17:43)
[2021-04-16] MEDS ORDERED: PT OWN MED DRAWER 7, Y5N ONE ×3 (08:27→14:42)
[2021-04-16] MEDS ORDERED: EPOETIN ALFA-EPBX 10,000 UNIT/ML VIAL SQ ONE (09:54)
[2021-04-16] MEDS: NIFEdipine E.R. 30 MG TABLET PO SCH (11:00)
[2021-04-16] MEDS: MULTIVITAMINS (DAILY MVI) TABLET (FP) PO SCH (11:25)
[2021-04-16] MEDS: THIAMINE HCL 100 MG TABLET (FP) PO SCH (11:25)
[2021-04-16] MEDS: RIFAXIMIN 550 MG TABLET (UD) PO SCH (11:26)
[2021-04-16] MEDS: LACTULOSE 20 GM/30 ML UDC (FOR ORAL USE ONLY) PO SCH (11:26)
[2021-04-16] MEDS: levETIRAcetam 500 MG TABLET (FP) PO SCH (11:26)
[2021-04-16] MEDS ORDERED: EPOETIN ALFA-EPBX 4,000 UNIT, EPOETIN ALFA-EPBX 3,000 UNIT IVPUSH ONE (13:00)
[2021-04-16 13:19] LABS: HEMATOCRIT 27.2 % (35.4-49); HEMOGLOBIN 9.5 GM/dL (11.7-16.9); MCH 31.4 pg (25.7-33.7); MCHC 34.9 g/dl (32.0-35.9); MEAN CELL VOLUME 89.7 fl (80-96); MEAN PLT VOLUME 11.3 fl (7.5-11.1); PLATELET COUNT 54 K/MM3 (134-434); RBC 3.03 M/mm3 (4.00-5.60); RDW 16.1 % (11.9-15.9)
[2021-04-16 13:39] LABS: CHLORIDE 98 mmol/L (98-107); SODIUM 134 mmol/L (136-145)
[2021-04-16 13:42] LABS: ANION GAP 10 MMOL/L (8-16); BLOOD UREA NITROGEN 44.4 mg/dL (7-18); CO2 26 mmol/L (21-32); GLUCOSE,RANDOM 86 mg/dL (74-106)
[2021-04-16 13:45] LABS: PHOSPHOROUS 4.4 mg/dL (2.5-4.9); SGOT/AST 27 U/L (15-37); SGPT/ALT 12 U/L (13-61)
[2021-04-16 13:47] LABS: BILIRUBIN,TOTAL 1.1 mg/dL (0.2-1); TOT PROT 6.1 g/dl (6.4-8.2)
[2021-04-16 13:50] LABS: ALK PHOS 177 U/L (45-117); CREATININE 9.5 mg/dL (0.55-1.3)
[2021-04-16 18:09] VITALS: BP 155/80; PULSE 77; TEMP 97.7
[2021-04-17] MEDS ORDERED: LORazepam 0.5 MG TABLET PO ONE (05:00)
== END 2021-04-16 18:43 | disposition left against medical advice (07) | DRG 640 ==
LOC: JER 11:05 → JERBED 15:57 → J4S 21:22
PROVIDERS: ATTEND Internal Medicine
PROC: 30233R1 Transfusion of Nonautologous Platelets into Peripheral Vein, Percutaneous Approach (ICD-10-PCS; principal; 2021-04-15)
PROC: 5A1D70Z Performance of Urinary Filtration, Intermittent, Less than 6 Hours Per Day (ICD-10-PCS; 2021-04-16)
DX: E87.79 Other fluid overload (principal); N18.6 End stage renal disease; I12.0 Hypertensive chronic kidney disease with stage 5 chronic kidney disease or end stage renal disease; J90 Pleural effusion, not elsewhere classified; F10.239 Alcohol dependence with withdrawal, unspecified; F10.288 Alcohol dependence with other alcohol-induced disorder; I16.0 Hypertensive urgency; K70.31 Alcoholic cirrhosis of liver with ascites; E78.5 Hyperlipidemia, unspecified; E11.22 Type 2 diabetes mellitus with diabetic chronic kidney disease; Z91.15 Patient's noncompliance with renal dialysis; K70.40 Alcoholic hepatic failure without coma; G40.909 Epilepsy, unspecified, not intractable, without status epilepticus; D69.59 Other secondary thrombocytopenia; D63.1 Anemia in chronic kidney disease; Z99.2 Dependence on renal dialysis
CPT/HCPCS: 36415; 36430; 36511; 71045-TC-FY; 76700-TC; 80048; 80053; 80061; 80307; 82140; 82550; 82553; 82728; 82962; 83036; 83540; 83550; 83690; 83721; 83735; 84100; 84443; 84484; 85025; 85027; 85610; 86140; 86850; 86900; 86901; 93005; 93010; 93306-TC; 99291; C9803; J0131; J1644; P9034; P9038; Q5106; U0003; U0005